=== PATIENT | female | born 1970 | race Caucasian/White ===

== ENCOUNTER → 2019-12-14 13:35 | Outpatient (BNVA) | payer MEDICAID, SELFPAY | PROVIDERS: PCP Internal Medicine; Referring Provider Internal Medicine; Visit Provider Nurse Practitioner | DX: K21.9 Gastro-esophageal reflux disease without esophagitis (principal); K58.2 Mixed irritable bowel syndrome; K75.81 Nonalcoholic steatohepatitis (NASH) | CPT/HCPCS: 99213 ==

== ENCOUNTER 2019-12-27 10:01 | Outpatient (REF) | payer MEDICAID, SELFPAY ==
[2019-12-28 09:48] LABS: BV Int Neg Control Negative (Negative); BV Int Pos Control Positive (Positive)
== END 2019-12-27 10:02 | disposition home or self-care (01) ==
LOC: HO.LAB 10:01
PROVIDERS: PCP Internal Medicine; Visit Provider Advanced Practice Midwife
DX: N90.89 Other specified noninflammatory disorders of vulva and perineum (principal); R10.2 Pelvic and perineal pain
CPT/HCPCS: 87480; 87510; 87660; 99214

== ENCOUNTER 2020-01-13 12:25 | Outpatient (REF) | payer MEDICAID, SELFPAY ==
[2020-01-13 14:40] LABS: MANUAL DIFF FLAG NO
[2020-01-13 14:45] LABS: Basophils Percent Auto 0.5 % (0-2); Eosinophils Absolute Auto 0.1 X10*3/uL (0.0-0.4); Hemoglobin 13.4 g/dl (12.0-16.0); Lymphocytes Absolute Auto 1.5 X10*3/uL (1.2-4.9); Lymphocytes Percent Auto 37.1 % (20-40); Mean Corpuscular HGB Conc 33.5 g/dl (31.0-35.0); Mean Corpuscular Hemoglobin 30.5 pg (27.0-33.0); Mean Corpuscular Volume 90.9 fL (80-98); Mean Platelet Volume 10.4 fL (9.4-12.3); Monocytes Absolute Auto 0.3 X10*3/uL (0.1-1.2); Monocytes Percent Auto 7.9 % (2-11); Neutrophils Absolute Auto 2.1 X10*3/uL (2.0-8.3); Neutrophils Percent Auto 52.5 % (45-73); Platelet Count 261 X10*3/uL (160-400); Red Cell Distribution Width 12.4 % (11.0-16.0); White Blood Count 3.9 X10*3/uL (4.8-10.8)
[2020-01-13 14:54] LABS: Glucose Urine UA NEG (NEG); Leukocyte Esterase Urine NEG (NEG); Nitrite Urine NEG (NEG); PH 5.5 (5.0-8.0); Specific Gravity - Urine >= 1.030 (1.005-1.025); Urine Blood NEG (NEG); Urine Ketones NEG (NEG); Urine Protein NEG (NEG-TRACE)
[2020-01-13 14:55] LABS: Appearance Urine HAZY; Color Urine YELLOW
[2020-01-13 15:21] LABS: Alanine Aminotransferase 25 U/L (0-31); Albumin Level 4.3 g/dL (3.5-5.0); Alkaline Phosphatase 73 U/L (39-117); Anion Gap 14 (12-20); Aspartate Amino Transferase 26 U/L (5-31); Bilirubin Total 0.5 mg/dL (0.0-1.0); Blood Urea Nitrogen 17 mg/dL (9-16); C Reactive Protein 0.94 mg/dL (< or = 0.50); Calcium 8.8 mg/dL (8.4-10.2); Carbon Dioxide 24 mmol/L (22-29); Chloride 106 mmol/L (96-108); Estimated Glomerular Filt Rate > 60; Glucose Random 101 mg/dL (60-115); Potassium 4.2 mmol/l (3.3-5.1); Sodium 140 mmol/L (135-145); Total Protein 7.8 g/dL (6.5-8.0)
[2020-01-13 15:31] LABS: Bacteria Urine TRACE /LPF; RBC Urine 0 /HPF (0); Squamous Epithelial Cell Urine 2+ /LPF; WBC Urine 0-2 /HPF (0-4)
[2020-01-13 15:36] LABS: Rheumatoid Factor < 15.0 IU/mL (<15.0)
[2020-01-13 15:40] LABS: Erythrocyte Sedimentation Rate 18 MM/HR (0-20)
[2020-01-14 11:36] LABS: Thyroglobulin Antibodies 27 IU/mL (< or = 1); Thyroid Peroxidase Antibodies 58 IU/mL (<9)
[2020-01-16 19:09] LABS: Complement C3 142 mg/dL (83-193)
[2020-01-16 19:10] LABS: Cyclic Citrullinated Peptide <16 UNITS
[2020-01-16 19:11] LABS: Anti DNA DS Antibody 27 IU/mL; Antibody to SS-A Antigen <1.0 NEG AI (<1.0 NEG); Antibody to SS-B Antigen <1.0 NEG AI (<1.0 NEG); SM/Ribonucleoprotein Ab <1.0 NEG AI (<1.0 NEG); Smith Protein <1.0 NEG AI (<1.0 NEG)
== END 2020-01-13 12:26 | disposition home or self-care (01) ==
LOC: HO.LAB 12:25
PROVIDERS: PCP Internal Medicine; Referring Provider Internal Medicine; Visit Provider Student in an Organized Health Care Education/Training Program
DX: R10.2 Pelvic and perineal pain (principal); R76.8 Other specified abnormal immunological findings in serum
CPT/HCPCS: 36415; 80053; 81001; 85025; 85652; 86140; 86160; 86200; 86225; 86235; 86376; 86431; 86800; 87086; 87147; 99202

== ENCOUNTER 2020-01-17 10:47 | Outpatient (REF) | payer MEDICAID, SELFPAY ==
--- NOTE | 2020-01-17 10:51 | US_ITS ---
EXAMINATION: ULTRASOUND OF THE PELVIS CLINICAL INFORMATION: Pelvic and perineal pain. COMPARISON: None. TECHNIQUE: Transabdominal and transvaginal pelvic ultrasound. Doppler evaluation with spectral analysis was performed. A transvaginal study was performed in addition to the transabdominal study which did not yield an adequate examination of the ovaries due to superimposed distended gas-filled loops of bowel. FINDINGS: Status post hysterectomy and right oophorectomy. The left ovary is identified measuring 2.4 x 1.7 x 2.7 cm. Multiple follicles are noted with no focal suspicious mass. No adnexal mass or free fluid collection seen. US/US transvaginal IMPRESSION: Status post hysterectomy and right oophorectomy. No pelvic mass. Normal appearance of the left ovary..
--- NOTE | 2020-01-17 10:51 | US_ITS ---
EXAMINATION: ULTRASOUND OF THE PELVIS CLINICAL INFORMATION: Pelvic and perineal pain. COMPARISON: None. TECHNIQUE: Transabdominal and transvaginal pelvic ultrasound. Doppler evaluation with spectral analysis was performed. A transvaginal study was performed in addition to the transabdominal study which did not yield an adequate examination of the ovaries due to superimposed distended gas-filled loops of bowel. FINDINGS: Status post hysterectomy and right oophorectomy. The left ovary is identified measuring 2.4 x 1.7 x 2.7 cm. Multiple follicles are noted with no focal suspicious mass. No adnexal mass or free fluid collection seen. US/US pelvic complete IMPRESSION: Status post hysterectomy and right oophorectomy. No pelvic mass. Normal appearance of the left ovary..
== END 2020-01-17 10:48 | disposition home or self-care (01) ==
LOC: HO.US 10:47
PROVIDERS: Visit Provider Advanced Practice Midwife
DX: R10.2 Pelvic and perineal pain (principal)
CPT/HCPCS: 76830; 76856

== ENCOUNTER → 2020-01-31 10:42 | Outpatient (BNVA) | payer MEDICAID, SELFPAY | PROVIDERS: PCP Internal Medicine; Visit Provider Advanced Practice Midwife | DX: Z76.89 Persons encountering health services in other specified circumstances (principal) ==

== ENCOUNTER → 2020-02-15 08:54 | Outpatient (BNVA) | payer MEDICAID, SELFPAY | PROVIDERS: PCP Internal Medicine; Visit Provider Student in an Organized Health Care Education/Training Program | DX: Z76.89 Persons encountering health services in other specified circumstances (principal) ==

== ENCOUNTER → 2020-07-12 13:44 | Outpatient (BNVA) | payer MEDICAID, SELFPAY | PROVIDERS: PCP Internal Medicine; Visit Provider Nurse Practitioner ==

== ENCOUNTER 2020-07-26 06:52 | Outpatient (REF) | payer MEDICAID, SELFPAY ==
--- NOTE | ~2020-07-26 | US_ITS ---
EXAMINATION: US ABDOMEN LIMITED CLINICAL INFORMATION: K58.2 - Mixed irritable bowel syndrome; WISE . COMPARISON: Abdominal ultrasound 10/03/2019, 12/21/2018. TECHNIQUE: Real-time imaging of the right upper quadrant abdominal viscera. FINDINGS: PANCREAS: The pancreas is normal in size and echogenicity. There is no pancreatic ductal distention or retroperitoneal effusion. AORTA/CAVA: The abdominal aorta is normal in caliber. The visualized IVC is unremarkable. LIVER: The liver is normal in size and smooth in contour. The right lobe measures approximately 16 cm in length and 12 cm AP. There is increased hepatic parenchymal echogenicity consistent with hepatic steatosis. There is some minor heterogeneous sparing as previously noted posterior right lobe. No focal hepatic parenchymal lesion or intrahepatic ductal dilatation. GALLBLADDER: The gallbladder has an incidental fundal phrygian cap as previously noted. There is no gallbladder dilatation, stone, sludge, or wall thickening. Negative sonographic Syed's sign. COMMON BILE DUCT: Normal in caliber measuring 0.5 cm in diameter. RIGHT KIDNEY: Normal. No hydronephrosis. No renal calculi or focal parenchymal lesions. The kidney measures 10.1 cm in maximum dimension. There is a mid renal sinus parenchymal bar suggesting duplicated collecting system. LEFT KIDNEY: Normal. No hydronephrosis. No renal calculi or focal parenchymal lesions. The kidney measures 10.5 cm in maximum dimension. SPLEEN: The spleen is normal in size measuring 8.4 cm in length. FREE FLUID: None. US/US abdomen limited IMPRESSION: 1. Hepatic steatosis. Liver normal in size and smooth in contour. No focal hepatic parenchymal lesion. 2. No cholelithiasis or biliary ductal dilatation. Pancreas unremarkable.
[2020-07-26 08:57] LABS: Alanine Aminotransferase 18 U/L (0-31); Albumin Level 3.9 g/dL (3.5-5.0); Alkaline Phosphatase 70 U/L (39-117); Aspartate Amino Transferase 18 U/L (5-31); Bilirubin Direct 0.2 mg/dL (0.0-0.5); Bilirubin Total 0.3 mg/dL (0.0-1.0); Total Protein 6.8 g/dL (6.5-8.0)
[2020-07-27 11:36] LABS: Alpha Fetoprotein 1.2 ng/mL
== END 2020-07-26 06:53 | disposition home or self-care (01) ==
LOC: HO.US 06:52
PROVIDERS: PCP Internal Medicine; Visit Provider Nurse Practitioner
DX: K75.81 Nonalcoholic steatohepatitis (NASH) (principal); K58.9 Irritable bowel syndrome, unspecified
CPT/HCPCS: 36415; 76705; 80076; 82105

== ENCOUNTER → 2020-08-06 08:07 | Outpatient (BNVA) | payer MEDICAID, SELFPAY | PROVIDERS: PCP Internal Medicine; Referring Provider Internal Medicine; Visit Provider Surgery | DX: L91.0 Hypertrophic scar (principal) | CPT/HCPCS: 99212 ==

== ENCOUNTER → 2020-11-22 08:46 | Outpatient (BNVA) | payer MEDICAID, SELFPAY | PROVIDERS: PCP Internal Medicine; Visit Provider Nurse Practitioner ==

== ENCOUNTER 2020-12-17 13:07 | Day surgery (SDC) | payer MEDICAID, SELFPAY ==
--- NOTE | 2020-12-14 14:31 | HO.ANESPROP2 ---
Documented by User: Karishma Diggs NP 12/14/20 14:31 HPI - Anesthesia Eval Consult details Narrative: 50yo F for Upper Endoscopy Multiple med allergies PMFSH Active Problems Active Problems: All Active Problems (Updated 11/22/20 @ 13:37 by JOCELYN Leung) Dysphagia (Acute) Chronic idiopathic constipation (Acute) Keloid of skin (Acute) Fibromyalgia (Acute) Encounter to discuss test results (Acute) FELI positive (Acute) Vulvar irritation (Acute) Pelvic pain in female (Acute) Cerebral palsy (Acute) Pablo's thyroiditis (Acute) Asthma (Acute) Colon cancer screening (Acute) Elevated antinuclear antibody (FELI) level (Acute) WISE (nonalcoholic steatohepatitis) (Acute) Abdominal bloating (Acute) GERD (gastroesophageal reflux disease) (Acute) Past Medical History Medical History (Updated 11/22/20 @ 13:37 by JOCELYN Leung) FELI positive Fibromyalgia H/O keloid of skin History of meningitis Irritable bowel syndrome with both constipation and diarrhea Keloid of skin Family History Family History Mother Aneurysm Endometrial cancer Father No problems noted. Surgical History Surgical History H/O bilateral breast reduction surgery H/O neck surgery History of bladder suspension procedure Hx of breast lump removal (~2019) Hx of section Hx of hysterectomy Social History Social History Alcohol intake: never Patient Tobacco Use Status: Never used Tobacco Use of substances other than those prescribed or required for medical reasons: No Are you DNR?: No Advance Directives: No Advance Directives Information Provided: Yes Sexual orientation: Straight/Heterosexual Gender identity: Female Meds Allergies Allergy/AdvReac Type Severity Reaction Status Date / Time aspirin [ASA] Allergy Intermediate ITCHING/SWE Verified 11/22/20 08:48 LLING Penicillins [PENICILLINS] Allergy Intermediate ITCHING Verified 11/22/20 08:48 acetaminophen [Percocet] Allergy Unknown Unknown Verified 11/22/20 08:48 duloxetine [From CYMBALTA] Allergy Unknown UNKNOWN Verified 11/22/20 08:48 pregabalin [From LYRICA] Allergy Unknown UNKNOWN Verified 11/22/20 08:48 oxycodone [From Percocet] Allergy itching Verified 11/22/20 09:52 meperidine [From DEMEROL] AdvReac Intermediate N/V Verified 11/22/20 08:48 Home Medications Medication Instructions Recorded Confirmed Last Taken Type docusate sodium 100 mg capsule 100 mg PO DAILY 12/13/19 02/15/20 Unknown History (Colace) [id number] 1 cap PO TID 12/13/19 02/15/20 Unknown History 24,000-76,000-120,000 unit capsule,delayed rel (Creon) albuterol sulfate 90 mcg/actuation 2 puff INHALATION Q6H PRN 12/27/19 02/15/20 Unknown History aerosol inhaler diphenhydramine 12.5 tab PO 12/27/19 02/15/20 Unknown History mg-acetaminophen 325 mg tablet (Percogesic) duloxetine 30 mg capsule,delayed 30 mg PO DAILY 12/27/19 02/15/20 Unknown History release (Cymbalta) fluticasone propionate 220 1 puff INHALATION BID 12/27/19 02/15/20 Unknown History mcg/actuation HFA aerosol inhaler (Flovent HFA) fluticasone propionate 50 1 inh INHALATION BID 12/27/19 02/15/20 Unknown History mcg/actuation blister powder for inhalation levothyroxine 88 mcg capsule 88 mcg PO DAILY 12/27/19 02/15/20 Unknown History (Tirosint) loratadine 10 mg tablet 10 mg PO DAILY 12/27/19 02/15/20 Unknown History montelukast 10 mg tablet 10 mg PO BEDTIME 12/27/19 02/15/20 Unknown History (Singulair) sertraline 25 mg tablet 25 mg PO DAILY 12/27/19 02/15/20 Unknown History sumatriptan succinate 50 mg tablet See Rx Instructions PO .COMPLEX 12/27/19 02/15/20 Unknown History (Imitrex) zolpidem 10 mg tablet 10 mg PO BEDTIME PRN 12/27/19 02/15/20 Unknown History Exam Exam Date and Time: December 14, 2020 1431 Assessment and Plan Assessment Anesthesia Assessment: Chart Reviewed Documented by User: Key Gonzalez MD 12/17/20 14:12 [facility] Past Medical History Medical History (Updated 11/22/20 @ 13:37 by JOCELYN Leung) FELI positive Fibromyalgia H/O keloid of skin History of meningitis Irritable bowel syndrome with both constipation and diarrhea Keloid of skin Family History Family History Mother Aneurysm Endometrial cancer Father No problems noted. Family history of problems with anesthesia: No Surgical History Surgical History H/O bilateral breast reduction surgery H/O neck surgery History of bladder suspension procedure Hx of breast lump removal (~2019) Hx of section Hx of hysterectomy History of Problems with Anesthesia: No Social History Social History Alcohol intake: never Patient Tobacco Use Status: Never used Tobacco Use of substances other than those prescribed or required for medical reasons: No Are you DNR?: No Advance Directives: No Advance Directives Information Provided: Yes Sexual orientation: Straight/Heterosexual Gender identity: Female Meds Allergies Allergy/AdvReac Type Severity Reaction Status Date / Time aspirin [ASA] Allergy Intermediate ITCHING/SWE Verified 11/22/20 08:48 LLING Penicillins [PENICILLINS] Allergy Intermediate ITCHING Verified 11/22/20 08:48 acetaminophen [Percocet] Allergy Unknown Unknown Verified 11/22/20 08:48 duloxetine [From CYMBALTA] Allergy Unknown UNKNOWN Verified 11/22/20 08:48 pregabalin [From LYRICA] Allergy Unknown UNKNOWN Verified 11/22/20 08:48 oxycodone [From Percocet] Allergy itching Verified 11/22/20 09:52 meperidine [From DEMEROL] AdvReac Intermediate N/V Verified 11/22/20 08:48 Home Medications Medication Instructions Recorded Confirmed Last Taken Type docusate sodium 100 mg capsule 100 mg PO DAILY 12/13/19 02/15/20 Unknown History (Colace) [id number]-[id number]-[id number] 1 cap PO TID 12/13/19 02/15/20 Unknown History 24,000-76,000-120,000 unit capsule,delayed rel (Creon) albuterol sulfate 90 mcg/actuation 2 puff INHALATION Q6H PRN 12/27/19 02/15/20 Unknown History aerosol inhaler diphenhydramine 12.5 tab PO 12/27/19 02/15/20 Unknown History mg-acetaminophen 325 mg tablet (Percogesic) duloxetine 30 mg capsule,delayed 30 mg PO DAILY 12/27/19 02/15/20 Unknown History release (Cymbalta) fluticasone propionate 220 1 puff INHALATION BID 12/27/19 02/15/20 Unknown History mcg/actuation HFA aerosol inhaler (Flovent HFA) fluticasone propionate 50 1 inh INHALATION BID 12/27/19 02/15/20 Unknown History mcg/actuation blister powder for inhalation levothyroxine 88 mcg capsule 88 mcg PO DAILY 12/27/19 02/15/20 Unknown History (Tirosint) loratadine 10 mg tablet 10 mg PO DAILY 12/27/19 02/15/20 Unknown History montelukast 10 mg tablet 10 mg PO BEDTIME 12/27/19 02/15/20 Unknown History (Singulair) sertraline 25 mg tablet 25 mg PO DAILY 12/27/19 02/15/20 Unknown History sumatriptan succinate 50 mg tablet See Rx Instructions PO .COMPLEX 12/27/19 02/15/20 Unknown History (Imitrex) zolpidem 10 mg tablet 10 mg PO BEDTIME PRN 12/27/19 02/15/20 Unknown History Exam Airway Mallampati Class: II TM Dist: >3cm Neck ROM: Full Heart: rrr Lungs: cta Assessment and Plan Assessment Anesthesia Assessment: Anesthesia Plan Discussed and Chart Reviewed Final Anesthetic Review Family History of Problems with Anesthesia: No History of Problems with Anesthesia: No NPO: Yes ASA Class: III Final Preanesthetic Review: No Changes in Pt Med Stat, Meds/Allgs Chart Reviewed and Consent Obtained/Reviewed Patient Risk: Intermediate Procedure Risk: Intermediate Anesthetic Plan Anesthetic Plan: MAC: Disposition: Standard PACU
[2020-12-17] MEDS: Lactated Ringers 1,000 ML 100 ML IVCONT (13:45)
[2020-12-17 13:49] VITALS: BP 141/81; PULSE 88; RESP 18; TEMP 36.2; O2SAT 98; BMI 32.9
--- NOTE | 2020-12-17 13:51 | P.HPSUR_ITS ---
Pre-Procedural Eval Section A Date of Service: 12/17/20 Section B Chief Complaint: dysphagia Relevant Family History (Specify if Yes): No Relevant Social History: None Present Medications: see Short Stay Collaborative assessment Medical History: Significant History (FELI positive Fibromyalgia H/O keloid of skin History of meningitis Irritable bowel syndrome with both constipation and diarrhea Keloid of skin) History of Previous Operations: Relevant previous surgery/procedure and date(s) (H/O bilateral breast reduction surgery H/O neck surgery History of bladder suspension procedure Hx of breast lump removal (~2019) Hx of section Hx of hysterectomy) Allergies: Allergies Allergy/AdvReac Type Severity Reaction Status Date / Time aspirin [ASA] Allergy Intermediate ITCHING/SWE Verified 11/22/20 08:48 LLING Penicillins [PENICILLINS] Allergy Intermediate ITCHING Verified 11/22/20 08:48 acetaminophen [Percocet] Allergy Unknown Unknown Verified 11/22/20 08:48 duloxetine [From CYMBALTA] Allergy Unknown UNKNOWN Verified 11/22/20 08:48 pregabalin [From LYRICA] Allergy Unknown UNKNOWN Verified 11/22/20 08:48 oxycodone [From Percocet] Allergy itching Verified 11/22/20 09:52 meperidine [From DEMEROL] AdvReac Intermediate N/V Verified 11/22/20 08:48 Review of Systems Sugical H&P ROS: Negative: Constitution, Cardiovascular, Respiratory, Neurological, Psychiatric, Hem-Onc, Allergic/Immunologic, Gastrointestinal, Genitourinary, Musculoskeletal, Integumentary, Endocrine and Eyes/Ears/Nose/Throat Exam Surgical H&P Exam: Normal: HEENT, Normal: Heart, Normal: Lungs, Normal: Extremit ies, Normal: Abdomen, Normal: Skin and Normal: Neurological Plan Diagnosis/Plan: Unchanged I have reviewed the history and physical and performed a pertinent physical examination on my patient. No changes have occurred unless specified.
--- NOTE | 2020-12-17 15:09 | PM.OP ---
Brief Operative Note Date of Service: 12/17/20 Pre-op diagnosis: dysphagia Post-op diagnosis: same Procedure: see op note Surgeon: Ellie Gan MD Anesthesia: MAC Was an Base Draw Operator used for this Procedure?: No Estimated blood loss (mL): 0 Condition: stable Disposition: PACU
--- NOTE | 2020-12-17 15:09 | W.PM.OPN ---
Operative Note Operative Note Date of Service: 12/17/20 Narrative: Procedure Description: EGD FLEXIBLE TRANSORAL UPPER GASTROINTESTINAL ENDOSCOPY UPPER ENDOSCOPY Consent: Indications for the procedure and potential complications of bleeding, perforation, reaction to medications and missed diagnosis were discussed with the patient and informed consent was obtained. Instrument: Olympus GIF H 190 J mid size upper endoscope Monitoring: Vital signs and clinical assessment, continuous EKG monitoring, Pulse oximetry, Carbon Dioxide monitoring and blood pressure monitoring were done throughout the procedure. Procedure: The patient was placed in the left lateral decubitis position and pre-procedure medications were administered and a bite block was placed. The endoscope was inserted into the mouth and advanced under direct vision to the third part of duodenum. A careful inspection was made as the upper endoscope was withdrawn including a retroflexed examination of the proximal stomach; Findings and interventions are described below. Findings: Larynx:normal Esophagus: GE junction at 36 cm, diaphragm hiatus at 36 cm, mild esophagitis, bx taken from GEJ and random esophagus. Esophagus dilated at LES and UES to 19 mm. Stomach: Patchy gastric erythema with superficial ulcers and erosions at antrum. Biopsies were obtained. Grade 2 flap valve on retroflexed examination of the cardia. Duodenum: Normal bulb and descending duodenum, bx taken Intervention: Biopsies as noted above, balloon dilation Impression/Findings: gastric ulcers and erosions esophagitis PLAN: check compliance with PPI if h pylori pos then treat if taking PPI then consider changing to another PPI or icnreasing dose
[2020-12-17 15:14] VITALS: BP 96/56; PULSE 89; RESP 16; TEMP 36.1; O2SAT 96
[2020-12-17 15:30] VITALS: BP 104/65; PULSE 78; RESP 16; TEMP 36.1; O2SAT 98
[2020-12-17 15:45] VITALS: PULSE 79; RESP 16; TEMP 36.2; O2SAT 98
== END 2020-12-17 15:49 | disposition home or self-care (01) ==
PROVIDERS: PCP Internal Medicine; Visit Provider Internal Medicine Gastroenterology
PROC: 0DJ08ZZ Inspection of Upper Intestinal Tract, Via Natural or Artificial Opening Endoscopic (ICD-10-PCS; CPT 43235; principal; 2020-12-17 14:50)
DX: K22.2 Esophageal obstruction (principal); K20.80 Other esophagitis without bleeding; K25.9 Gastric ulcer, unspecified as acute or chronic, without hemorrhage or perforation; K21.9 Gastro-esophageal reflux disease without esophagitis; K44.9 Diaphragmatic hernia without obstruction or gangrene; K75.81 Nonalcoholic steatohepatitis (NASH); K59.04 Chronic idiopathic constipation; Z79.899 Other long term (current) drug therapy; Z88.0 Allergy status to penicillin; Z88.8 Allergy status to other drugs, medicaments and biological substances
CPT/HCPCS: 43249; 43239; 88305; 88342; C1726

== ENCOUNTER → 2021-04-12 09:16 | Outpatient (BNVA) | payer MEDICAID, SELFPAY | PROVIDERS: PCP Internal Medicine; Visit Provider Nurse Practitioner Family | DX: G43.009 Migraine without aura, not intractable, without status migrainosus (principal); G80.9 Cerebral palsy, unspecified; R42 Dizziness and giddiness | CPT/HCPCS: 99202 ==

== ENCOUNTER 2021-05-14 09:17 | Outpatient (REF) | payer MEDICAID, SELFPAY ==
--- NOTE | ~2021-05-14 | MM_ITS ---
EXAMINATION: MM SCREENING DIGITAL BREAST TOMOSYNTHESIS, BILATERAL CLINICAL INFORMATION: Screening. Asymptomatic. Prior history reduction mammoplasty. The lifetime risk of breast cancer based on the Tyrer-Cuzick Model is 4%. COMPARISON: Mammography: 07/06/2019, 01/21/2017, 05/11/2014 TECHNIQUE: Digital breast tomosynthesis is performed in both the craniocaudal and mediolateral oblique views along with computer-aided detection (CAD). Synthesized 2D images are generated from the tomosynthesis. FINDINGS: The breasts are almost entirely fatty (ACR BI-RADS breast composition Category a). There are no significant masses, abnormal calcifications, or other abnormalities. There is no developing density or architectural abnormality. The axilla and skin contours are unremarkable. No significant changes. MM/MM tomosynthesis screening BI IMPRESSION: No mammographic evidence of malignancy. ASSESSMENT: BI-RADS 1: Negative RECOMMENDATION: Routine annual mammography screening. This patient's information was entered into a reminder system with a target due date for their next mammogram.
== END 2021-05-14 09:18 | disposition home or self-care (01) ==
LOC: HO.MAMMO 09:17
PROVIDERS: PCP Internal Medicine; Visit Provider Internal Medicine
DX: Z12.31 Encounter for screening mammogram for malignant neoplasm of breast (principal)
CPT/HCPCS: 77063; 77067

== ENCOUNTER → 2021-06-21 09:15 | Outpatient (BNVA) | payer MEDICAID, SELFPAY | PROVIDERS: PCP Internal Medicine; Visit Provider Nurse Practitioner Family | DX: G43.009 Migraine without aura, not intractable, without status migrainosus (principal); R42 Dizziness and giddiness; G51.32 Clonic hemifacial spasm, left | CPT/HCPCS: 99212 ==

== ENCOUNTER 2021-07-25 10:34 | Outpatient (REF) | payer MEDICAID, SELFPAY ==
--- NOTE | ~2021-07-25 | MR_ITS ---
EXAMINATION: MRI BRAIN WITHOUT CONTRAST. CLINICAL INFORMATION: 51-year-old with clonic hemifacial spasm, left side. COMPARISON: None TECHNIQUE: Multiplanar multisequence MR imaging of the brain was done without IV contrast. (Note that patient refused contrast for this examination; the study is also limited as thin-section high-resolution T2-weighted imaging through the IACs was not performed at this time.) FINDINGS: BRAIN VOLUME: Within normal limits. STRUCTURAL: No malformations. BRAIN AND MENINGES: DWI sequence demonstrates no restricted diffusion. Specifically, there is no evidence for acute or subacute cerebral ischemia. There are nonspecific patchy zones of FLAIR/T2 signal hyperintensity within the deep periventricular white matter at the level of the ventricular trigones bilaterally and within the posterior ricketts radiata bilaterally, which are nonspecific findings of indeterminate etiology and clinical significance. The remainder of the brain is normal in morphology and signal intensity. Gradient refocused imaging demonstrates no evidence for hemorrhage, hemosiderin staining or abnormal mineral deposition. No extra-axial fluid collections, space-occupying process or mass effect is identified. VENTRICLES AND SUBARACHNOID SPACES: The ventricular system and subarachnoid spaces are within normal limits without hydrocephalus. ORBITAL STRUCTURES: The visualized orbital structures are grossly unremarkable within the limitations of the study. VASCULAR: Signal voids are noted in the visualized major intracranial vessels. OSSEOUS STRUCTURES, SINUSES/MASTOIDS, EXTRACRANIAL SOFT TISSUES: Minor mucosal thickening in the right ethmoid complex, with moderate mucosal thickening in the maxillary sinuses bilaterally with probable retention cysts in the maxillary sinuses and mild sinusoidal nasal septal deviation. Small nonenlarged bilateral periparotid lymph nodes. Osseous marrow signal intensity is grossly unremarkable. MR/MR head/brain wo con IMPRESSION: 1. Nonspecific patchy white matter T2 hyperintensities predominantly involving the parieto-occipital lobe white matter bilaterally with a relative degree of symmetry noted of indeterminate etiology and clinical significance. 2. No acute intracranial process. No significant space-occupying process or mass effect and no evidence for acute or subacute cerebral ischemia or hemorrhage. 3. Note that the usual thin-section T2-weighted imaging through the IACs to better evaluate the facial nerve was not performed at this time. We will attempt to have the patient return to perform this as additional views at no charge. 4. Sinonasal findings as discussed above.
== END 2021-07-25 10:35 | disposition home or self-care (01) ==
LOC: HO.MRI 10:34
PROVIDERS: Visit Provider Nurse Practitioner Family
DX: G51.32 Clonic hemifacial spasm, left (principal); R42 Dizziness and giddiness; G43.009 Migraine without aura, not intractable, without status migrainosus
CPT/HCPCS: 70551

== ENCOUNTER 2021-08-05 09:25 | Outpatient (REF) | payer MEDICAID, SELFPAY | END 2021-08-05 09:26 | disposition home or self-care (01) | LOC: HO.MRI 09:25 | PROVIDERS: Visit Provider Nurse Practitioner Family | DX: Z13.89 Encounter for screening for other disorder (principal) ==

== ENCOUNTER → 2021-09-25 09:06 | Outpatient (BNVA) | payer MEDICAID, SELFPAY | PROVIDERS: PCP Internal Medicine; Visit Provider Nurse Practitioner Family | DX: G51.32 Clonic hemifacial spasm, left (principal); G43.009 Migraine without aura, not intractable, without status migrainosus; R42 Dizziness and giddiness | CPT/HCPCS: 99212 ==

== ENCOUNTER → 2021-11-18 10:49 | Outpatient (BNVA) | payer MEDICAID, SELFPAY | PROVIDERS: PCP Internal Medicine; Visit Provider Nurse Practitioner Family | DX: G51.32 Clonic hemifacial spasm, left (principal); G43.009 Migraine without aura, not intractable, without status migrainosus; Z79.899 Other long term (current) drug therapy | CPT/HCPCS: 99212 ==

== ENCOUNTER → 2022-01-17 10:07 | Outpatient (BNVA) | payer MEDICAID, SELFPAY | PROVIDERS: PCP Internal Medicine; Visit Provider Psychiatry & Neurology Neurology | DX: G43.009 Migraine without aura, not intractable, without status migrainosus (principal); G51.32 Clonic hemifacial spasm, left | CPT/HCPCS: 99212 ==

== ENCOUNTER → 2022-04-14 14:45 | Outpatient (BNVA) | payer MEDICAID, SELFPAY | PROVIDERS: PCP Internal Medicine; Visit Provider Psychiatry & Neurology Neurology | DX: G51.32 Clonic hemifacial spasm, left (principal) | CPT/HCPCS: 64612; 99211; J0585 ==

== ENCOUNTER 2022-05-20 09:50 | Outpatient (REF) | payer MEDICAID, SELFPAY ==
--- NOTE | ~2022-05-20 | MM_ITS ---
EXAMINATION: MM SCREENING DIGITAL BREAST TOMOSYNTHESIS, BILATERAL CLINICAL INFORMATION: Screening. Asymptomatic. The lifetime risk of breast cancer based on the Tyrer-Cuzick Model is 6%. COMPARISON: Mammography: 05/14/2021, 07/06/2019; outside exam 01/21/2017 ([facility]) TECHNIQUE: Digital breast tomosynthesis is performed in both the craniocaudal and mediolateral oblique views along with computer-aided detection (CAD). Synthesized 2D images are generated from the tomosynthesis. FINDINGS: The breasts are almost entirely fatty (ACR BI-RADS breast composition Category a). There are no significant masses, abnormal calcifications, or other abnormalities. Background stromal and fibroglandular densities are similar to prior studies. Again, there is incidental intramammary node mid upper outer right breast. The bilateral axilla and skin contours are unremarkable. There is chronic borderline bilateral nipple retraction. No significant changes. MM/MM tomosynthesis screening BI IMPRESSION: No mammographic evidence of malignancy. ASSESSMENT: BI-RADS 2: Benign RECOMMENDATION: Routine annual mammography screening. This patient's information was entered into a reminder system with a target due date for their next mammogram.
== END 2022-05-20 09:51 | disposition home or self-care (01) ==
LOC: HO.MAMMO 09:50
PROVIDERS: PCP Internal Medicine; Visit Provider Internal Medicine
DX: Z12.31 Encounter for screening mammogram for malignant neoplasm of breast (principal)
CPT/HCPCS: 77063; 77067

== ENCOUNTER → 2022-05-26 09:20 | Outpatient (BNVA) | payer MEDICAID, SELFPAY | PROVIDERS: PCP Internal Medicine; Visit Provider Surgery | DX: L91.0 Hypertrophic scar (principal) | CPT/HCPCS: 99202 ==

== ENCOUNTER → 2022-06-06 09:43 | Outpatient (BNVA) | payer MEDICAID, SELFPAY | PROVIDERS: PCP Internal Medicine; Visit Provider Nurse Practitioner | DX: K22.4 Dyskinesia of esophagus (principal); K59.04 Chronic idiopathic constipation; K21.9 Gastro-esophageal reflux disease without esophagitis; K27.9 Peptic ulcer, site unspecified, unspecified as acute or chronic, without hemorrhage or perforation; R13.10 Dysphagia, unspecified | CPT/HCPCS: 99212 ==

== ENCOUNTER → 2022-07-17 15:08 | Outpatient (BNVA) | payer MEDICAID, SELFPAY | PROVIDERS: PCP Internal Medicine; Visit Provider Psychiatry & Neurology Neurology | DX: G51.32 Clonic hemifacial spasm, left (principal) | CPT/HCPCS: 64612; 99211; J0585 ==

== ENCOUNTER → 2022-08-05 13:33 | Outpatient (BNVA) | payer MEDICAID, SELFPAY | PROVIDERS: PCP Internal Medicine; Visit Provider Nurse Practitioner Family | DX: M79.7 Fibromyalgia (principal); M25.511 Pain in right shoulder; M25.512 Pain in left shoulder; M47.812 Spondylosis without myelopathy or radiculopathy, cervical region; M62.838 Other muscle spasm; Z79.899 Other long term (current) drug therapy | CPT/HCPCS: 99202 ==

== ENCOUNTER 2022-08-15 10:38 | Outpatient (REF) | payer MEDICAID, SELFPAY ==
--- NOTE | ~2022-08-15 | XR_ITS ---
EXAMINATION: XR SHOULDER, LEFT CLINICAL INFORMATION: Shoulder pain. COMPARISON: None available. TECHNIQUE: AP external rotation, Grashey, scapular Y, and axillary views of the left shoulder. FINDINGS: The bones and soft tissues are normal. No fracture. Glenohumeral and acromioclavicular alignment is anatomic with normal joint space. No abnormal soft tissue calcifications. Partially imaged lower cervical anterior fixation plate and screws, grossly unremarkable in the visualized portions. XR/XR shoulder LT min 2V IMPRESSION: Unremarkable plain film examination of the left shoulder.
--- NOTE | ~2022-08-15 | XR_ITS ---
EXAMINATION: XR CERVICAL SPINE CLINICAL INFORMATION: Right shoulder pain. COMPARISON: None available. TECHNIQUE: 3 views of the cervical spine were obtained. FINDINGS: The patient is status post anterior fixation plate, screw, and disc spacing device with fusion at C5-C6. There may be very mild disc degenerative change at C4-C5, C6-C7, and C7-T1. The prevertebral soft tissues appear unremarkable. No fracture or subluxation is appreciated. XR/XR cervical spine 3V IMPRESSION: No acute finding.
--- NOTE | ~2022-08-15 | XR_ITS ---
EXAMINATION: XR SHOULDER, RIGHT CLINICAL INFORMATION: Right shoulder pain. COMPARISON: None available. TECHNIQUE: AP external rotation, Grashey, scapular Y, and axillary views of the right shoulder. FINDINGS: There is no evidence of acute fracture or dislocation of the right shoulder. Glenohumeral joint appears unremarkable. No evidence of calcific tendinitis. Acromioclavicular joint shows minimal spurring. There is no widening of the coracoclavicular space. XR/XR shoulder RT min 2V IMPRESSION: No significant right shoulder abnormality identified.
== END 2022-08-15 10:39 | disposition home or self-care (01) ==
LOC: HO.XRAY 10:38
PROVIDERS: PCP Internal Medicine; Visit Provider Nurse Practitioner Family
DX: M25.511 Pain in right shoulder (principal); M25.512 Pain in left shoulder; M47.812 Spondylosis without myelopathy or radiculopathy, cervical region; M79.7 Fibromyalgia
CPT/HCPCS: 72040; 73030

== ENCOUNTER → 2022-08-22 11:04 | Outpatient (BNVA) | payer MEDICAID, SELFPAY | PROVIDERS: PCP Internal Medicine; Visit Provider Nurse Practitioner | DX: Z01.818 Encounter for other preprocedural examination (principal); K59.04 Chronic idiopathic constipation; K21.9 Gastro-esophageal reflux disease without esophagitis; K27.9 Peptic ulcer, site unspecified, unspecified as acute or chronic, without hemorrhage or perforation; R14.0 Abdominal distension (gaseous); Z12.11 Encounter for screening for malignant neoplasm of colon; K22.4 Dyskinesia of esophagus | CPT/HCPCS: 99212 ==

== ENCOUNTER 2022-09-19 09:31 | Outpatient (AMB) | payer MEDICAID, SELFPAY ==
--- NOTE | 2022-09-19 09:36 | MHC.OFFVIS ---
Intake Vital Signs 09/19/22 09:40 Height 5 ft 2 in Weight 200 lb BMI 36.6 BP 130/68 Blood Pressure Location Rt brachial Position Sitting Pulse 79 Intake Visit Reasons: 6 week fu Intake Note: Patient follow up for chronic constipation. Patient cc: Patient states that she had [place] powder juice and it caused her abdominal pain. She also reports occasional constipation and nausea. Pt states she is currently taking Prednisone for fibromyalgia. 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: Yes Accompanied by: Grand Child Allergies aspirin [ASA] Allergy (Intermediate, Verified 08/22/22 11:10) ITCHING/SWELLING Penicillins [PENICILLINS] Allergy (Intermediate, Verified 08/22/22 11:10) ITCHING acetaminophen [Percocet] Allergy (Unknown, Verified 08/22/22 11:10) Unknown duloxetine [From CYMBALTA] Allergy (Unknown, Verified 08/22/22 11:10) UNKNOWN pregabalin [From LYRICA] Allergy (Unknown, Verified 08/22/22 11:10) UNKNOWN oxycodone [From Percocet] Allergy (Verified 08/22/22 11:10) itching meperidine [From DEMEROL] Adverse Reaction (Intermediate, Verified 08/22/22 11:10) N/V HPI 6 week fu HPI Details Assessment & Plan (1) Chronic idiopathic constipation: ?Code(s): K59.04 - Chronic idiopathic constipation ?Plan: Citizen [place] Long story about her rheum problems.? I asked how she is and how she has been in she launch is into a very long story about her problems with Rheumatology and her rheumatologic visits with various providers both in this area and in the [place] area.? She initially says ?I want you to work preop for lupus,? but I have to educate her that this is not something that I have the expertise in for training to do for her. I try redirect her to her GI concerns, it appears that she still having difficulty with generalized abdominal pain and is really not certain if this is related to her rheumatologic issues or irritable bowel syndrome.? I try to ascertain if she still adherent to her medications but she simply says ?they come in a box and I do not know what I take. ?? (in the past she was on famotidine 20mg bid and she likes this medication, she is also taking carafate 1-2 tabs a day. She does not know if she is taking omeprazole. She is using vikki seeds and metamucil for her CIC). She is overdue for colonoscopy and she agrees to have 1 if she can have a pill form of the prep.? I will see if we can get Ml tab or something like this covered for her. She needs to bring all medications in next appt as she does not know what she is taking. Using vikki seeds for CIC with good control. There are no prior problems with anesthesia or sedation.? She denies any cardiac or respiratory problems.? There are no infectious disease problems. She is uncertain of her family history with regards to colon cancer or polyps. roV 4 weeks. (2) GERD (gastroesophageal reflux disease): ?Code(s): K21.9 - Gastro-esophageal reflux disease without esophagitis (3) Colon cancer screening: ?Comment: Pt declines colonosopy, so referred back to PCP for FIT testing. ?Code(s): Z12.11 - Encounter for screening for malignant neoplasm of colon (4) Pre-op examination: ?Code(s): Z01.818 - Encounter for other preprocedural examination (5) Abdominal bloating: ?Code(s): R14.0 - Abdominal distension (gaseous) (6) Peptic ulcer disease: ?Code(s): K27.9 - Peptic ulcer, site unspecified, unspecified as acute or chronic, without hemorrhage or perforation (7) Esophageal spasm: ?Code(s): K22.4 - Dyskinesia of esophagus ? ? ? Medications: New sod sulf-pot chlor juliet-mag sulf 1.479 -0.188- 0.225 gram (Sutab) ?per pkg direction s orally per packa ge directions; PO PER PKG DIR 24 tab s 0RF Z12.11 - Encounter for screening for malignant neoplas m of colon COLONOSCOPY not yet scheduled BIOPSY TODAY'S VISIT Citizen [place] #[place] She brought her medications, and she says she has bentyl at home the blue pill but was not taking it r/t not knowing what it was for. Since she is having general periabdominal pain, I think we should restart this. She is agreeable. She also c/o post prandial fecal urgency with some foods and this aggravated her hemorrhoids. I think this is why we had her on carafate, but we will start one medicine at a time and titrate. She is quite weary of her total pill burden. She is also on prednisone for her FMS and this could be affecting her bowels as well. She continues on pantoprazole and famotidine. ROV 3 weeks. COUNT INCLUDES THE [facility] Medical History FELI positive Fibromyalgia H/O keloid of skin History of meningitis Irritable bowel syndrome with both constipation and diarrhea Surgical History H/O bilateral breast reduction surgery H/O neck surgery History of bladder suspension procedure Hx of breast lump removal (~2019) Hx of section Hx of hysterectomy Keloid of skin Family History Mother Aneurysm Endometrial cancer Father No problems noted. Social History Alcohol intake: never Patient Tobacco Use Status: Never used Tobacco Sexual orientation: Straight/Heterosexual Gender identity: Female Review of Systems Const Denies fatigue, Denies fever(s), Denies night sweats, Denies poor appetite and Denies weight loss ENT Reports Normal hearing present, Denies dental pain, Reports dysphagia, Denies hearing loss, Denies mouth pain, Denies odynophagia, Denies throat swelling, Denies tongue swelling and Reports other (Dentition adequate) Card Reports no additional complaints Resp Reports no additional complaints GI Details: Painful hemorrhoids she Denies abdominal pain, Denies melena, Denies bloating, Denies hematochezia, Denies constipation, Reports GI cramping, Reports dysphagia, Denies excessive flatus, Denies early satiety, Reports heartburn, Denies diarrhea, Denies nausea, Denies odynophagia, Denies vomiting and Denies hematemesis Skin/Breast Denies pruritus, Denies lesions, Denies rash and Denies jaundice Neuro Reports Normal hearing present and Denies Abnormal speech present Endo Denies fatigue Aller/Immun Denies throat swelling and Denies tongue swelling Physical Exam Vital Signs: Last Vital Signs Pulse 79 09/19/22 09:40 BP 130/68 09/19/22 09:40 BMI result Body Mass Index 36.6 Const General: cooperative, no acute distress, well developed and well groomed Nutritional Appearance: well nourished and obese Orientation/consciousness: oriented to person, oriented to place and oriented to time Limitations: language barrier HEENT Head: Yes normocephalic and Yes atraumatic Eyes General: appearance normal, both eyes and all related structures Pupils: Equal, round and reactive pupils present Neck Neck: Yes normal visual inspection and Yes no lymphadenopathy Thyroid: Thyroid normal Resp Effort & Inspection: normal respiratory effort and able to speak in complete sentences Auscultation: clear to auscultation bilaterally Cardio Rate: regular rate Rhythm: regular rhythm Heart sounds: Normal, physiologic split S2 sound present Peripheral pulses: radial pulses present and posterior tibial pulses present GI Inspection: No distended, Yes Abdominal panniculus present and Yes obesity Palpation (GI): Soft to palpation, nontender, no guarding, not rigid and No hepatosplenomegaly present Percussion: Yes normal to percussion Auscultation: normal bowel sounds Rectal Exam - Female: deferred Skin General skin exam: no rashes or lesions noted, turgor normal, skin not dry, no jaundice, No spider nevi and no striae Rashes: no rashes Nails: normal Neuro General: oriented to person, oriented to place and oriented to time Cranial nerves: Yes Equal, round and reactive pupils present and Yes Normal hearing present Speech: No Abnormal speech present Extrem General: Yes normal to inspection, No clubbing, No cyanosis and No edema Psych Appearance: grossly normal and well kempt Mental Status: mental status grossly normal Speech and movement: Normal speech and movement present Affect: normal affect Attitude: cooperative Thought process: Normal thought process present and not confabulating Thought content: Normal thought content present Insight: Limited insight present (Psych) Judgement: Limited judgement present (Psych) Assessment & Plan Assessment & Plan (1) Chronic idiopathic constipation: Code(s): K59.04 - Chronic idiopathic constipation Plan: COLONOSCOPY not yet scheduled BIOPSY TODAY'S VISIT Citizen [place] #[place] Live She brought her medications, and she says she has bentyl at home the blue pill but was not taking it r/t not knowing what it was for. Since she is having general periabdominal pain, I think we should restart this. She is agreeable. She also c/o post prandial fecal urgency with some foods and this aggravated her hemorrhoids. I think this is why we had her on carafate, but we will start one medicine at a time and titrate. She is quite weary of her total pill burden. She is also on prednisone for her FMS and this could be affecting her bowels as well. She continues on pantoprazole and famotidine. She has toric we uses Vicks vapor rub on her hemorrhoids which I do not think is in optimal solution so I will send her hemorrhoid cream to try. BRETV 3 weeks. We are still fighting to get her pill prep as she will not drink any liquid type of prep. (2) Dysphagia: Comment: food and liquid stickng med sternal Code(s): R13.10 - Dysphagia, unspecified (3) GERD (gastroesophageal reflux disease): Code(s): K21.9 - Gastro-esophageal reflux disease without esophagitis (4) Abdominal bloating: Code(s): R14.0 - Abdominal distension (gaseous) Medications: New hydrocortisone 2.5% (Proctosol HC) BE SURE TO INCLUDE RECTAL APPICATOR!! 1 appl [place] BID 30 grams 6RF hemorrhoids K64.9 - Unspecified hemorrhoids Coding Level of Care Code Est Pt Level 3 (63158) Diagnoses Chronic idiopathic constipation K59.04 Dysphagia R13.10 GERD (gastroesophageal reflux disease) K21.9 Abdominal bloating R14.0
[2022-09-19 09:40] VITALS: BP 130/68; PULSE 79; BMI 36.6
== END 2022-09-19 10:20 | disposition home or self-care (01) ==
PROVIDERS: PCP Internal Medicine; Visit Provider Nurse Practitioner
DX: K59.04 Chronic idiopathic constipation (principal); R13.10 Dysphagia, unspecified; K21.9 Gastro-esophageal reflux disease without esophagitis; R14.0 Abdominal distension (gaseous)
CPT/HCPCS: 99213

== ENCOUNTER → 2022-09-19 09:31 | Outpatient (BNVA) | payer MEDICAID, SELFPAY | PROVIDERS: PCP Internal Medicine; Visit Provider Nurse Practitioner | DX: K59.04 Chronic idiopathic constipation (principal); R13.10 Dysphagia, unspecified; K21.9 Gastro-esophageal reflux disease without esophagitis; R14.0 Abdominal distension (gaseous) | CPT/HCPCS: 99213 ==

== ENCOUNTER 2022-09-22 14:19 | Outpatient (AMB) | payer MEDICAID, SELFPAY ==
--- NOTE | 2022-09-22 14:31 | A.OFFVIS_ITS ---
Intake Vital Signs 09/22/22 14:38 Height 5 ft 2 in Weight 195 lb BMI 35.7 BP 133/94 H Blood Pressure Location Lt brachial Position Sitting Pulse 80 Pulse Source Pulse Oximeter Pulse Oximetry (%) 98 Oxygen Delivery Method Room Air Intake Visit Reasons: Shoulder & Cervical Spine Xray Results Intake Note: Pain today 1010 Letterpress Setter Required: Yes Letterpress Setter Language: Student Services Representative Name: Guerline # [id number] Accompanied by: Self / Same As Patient Allergies aspirin [ASA] Allergy (Intermediate, Verified 09/22/22 14:37) ITCHING/SWELLING Penicillins [PENICILLINS] Allergy (Intermediate, Verified 09/22/22 14:37) ITCHING acetaminophen [Percocet] Allergy (Unknown, Verified 09/22/22 14:37) Unknown duloxetine [From CYMBALTA] Allergy (Unknown, Verified 09/22/22 14:37) UNKNOWN pregabalin [From LYRICA] Allergy (Unknown, Verified 09/22/22 14:37) UNKNOWN oxycodone [From Percocet] Allergy (Verified 09/22/22 14:37) itching meperidine [From DEMEROL] Adverse Reaction (Intermediate, Verified 09/22/22 14:37) N/V HPI HPI Comments History of Present Illness Details Patient presents today to review recent cervical spine and bilateral shoulders xray results. Denies any recent cough, cold, infection, fever or other significant changes in medical history since last office visit. PRIOR: Patient is a 52 years old [place]ian speaking female with history of migraines, fibromyalgia, hemifacial spasm of left side of face, cerebral palsy, asthma, arthritis presents today with widespread body pain, stiffness and symmetrically localized tenderness points of upper and lower extremities and torso consistent with fibromyalgia. She also has significant axial cervical pain that radiates to both shoulders but also limited range of motions in both shoulders with significant difficulty with overhead reaches due to pain. Shoulder pain is localized to anterior aspects and periscapular area. Patient reports pain is constant and is worse during the mornings and middle of night. She rates her pain 8-10/10 daily. Pain affects her daily activities, functioning, sleep, mood, social interactions and quality of life. Patient follows neurology provider for Botox injections for left hemifacial spasm and rheumatology provider for arthritis and positive FELI. Patient notes that aqua therapy, prednisone and opioid medications have been the most helpful for her symptoms and allowed her to be more functional and less symptomatic. I have informed patient that our office does not offer opioid prescribing at this time. She has previously tried and became allergic to duloxetine, pregabalin and oxycodone. She tolerates gabapentin. Denies any fever, weight loss, weakness, numbness, tingling, bladder or bowel incontinence or saddle anesthesia. Location Widespread body pain, fibromyalgia, bilateral shoulder Duration Chronic for several years, progressively worse Characteristics of symptom or complaint Stabbing, sharp, shooting, throbbing, aching Aggravating or associated factors All movements, walking, standing, sitting, weather changes, stress Relieving factors Gabapentin, prednisone, duloxetine, naproxen Treatment Aqua therapy, PT PFSH Medical History FELI positive Fibromyalgia H/O keloid of skin History of meningitis Irritable bowel syndrome with both constipation and diarrhea Surgical History H/O bilateral breast reduction surgery H/O neck surgery History of bladder suspension procedure Hx of breast lump removal (~2019) Hx of section Hx of hysterectomy Keloid of skin Family History Mother Aneurysm Endometrial cancer Father No problems noted. Social History Alcohol intake: never Patient Tobacco Use Status: Never used Tobacco Sexual orientation: Straight/Heterosexual Gender identity: Female Review of Systems Const All systems reviewed & are unremarkable except as noted in HPI and below Physical Exam Vital Signs: Last Vital Signs Pulse 80 09/22/22 14:38 BP 133/94 H 09/22/22 14:38 Pulse Ox 98 09/22/22 14:38 Oxygen Delivery Method Room Air 09/22/22 14:38 BMI result Body Mass Index 35.7 General: Appears afebrile. Alert and oriented. Mood and affect appropriate. Follows and participates in conversation appropriately. Respiratory effort is unlabored. No cough. Able to transition from sit to stand unassisted. Ambulates with bilaterally normal heel strike and toe off. Back/Spine/Pelvis Other: Reports widespread musculoskeletal pain on both sides of the body. Multiple widespread TTPs 16/16 bilaterally, including upper and lower extremities. Cervical Spine: cervical muscular tenderness, pain with cervical ROM and No Cervical spine tenderness Thoracic/Lumbar Spine: thoracic and lumbar spine normal to inspection, No Thoracic/lumbar spine scar(s), pain with thoraco-lumbar ROM, paraspinal muscle tenderness, No thoracic spinal tenderness and lumbar spinal tenderness Sacroiliac joints: bilaterally tender to palpation Extrem Other: Bilateral shoulder normal to inspection. No erythema or ecchymosis. Patient has difficulty with overhead reach or reaching her back pocket, worse on the right side. Moderate tenderness to palpation to the anterior aspect of the both shoulders, R>L. Empty can negative bilaterally. General: Yes capillary refill normal, Yes no clubbing, cyanosis or edema and Yes no calf tenderness Results Reviewed Results Reviewed: XR SHOULDER, LEFT 08/15/22 FINDINGS: The bones and soft tissues are normal. No fracture. Glenohumeral and acromioclavicular alignment is anatomic with normal joint space. No abnormal soft tissue calcifications. Partially imaged lower cervical anterior fixation plate and screws, grossly unremarkable in the visualized portions. IMPRESSION: Unremarkable plain film examination of the left shoulder. XR SHOULDER, RIGHT 08/15/22 FINDINGS: There is no evidence of acute fracture or dislocation of the right shoulder. Glenohumeral joint appears unremarkable. No evidence of calcific tendinitis. Acromioclavicular joint shows minimal spurring. There is no widening of the coracoclavicular space. IMPRESSION: No significant right shoulder abnormality identified. XR CERVICAL SPINE 08/15/22 FINDINGS: The patient is status post anterior fixation plate, screw, and disc spacing device with fusion at C5-C6. There may be very mild disc degenerative change at C4-C5, C6-C7, and C7-T1. The prevertebral soft tissues appear unremarkable. No fracture or subluxation is appreciated. IMPRESSION: No acute finding. Assessment & Plan Assessment & Plan (1) Fibromyalgia: Code(s): M79.7 - Fibromyalgia (2) Bilateral shoulder pain: Code(s): M25.511 - Pain in right shoulder; M25.512 - Pain in left shoulder (3) Cervical spondylosis: Code(s): M47.812 - Spondylosis without myelopathy or radiculopathy, cervical region (4) Muscle spasms of neck: Code(s): M62.838 - Other muscle spasm Plan 1. Cervical spine and bilateral shoulder xray reviewed with patient today in greater detail and are noted above. She continuous to endorse widespread pain head to toe, stiffness, mostly in her neck and bilateral shoulder with limited range of motion, worse on the right side. 2. Increase amitriptyline to 25 mg at bedtime. Continue to monitor for any side effects. 3. Schedule Right acromioclavicular joint steroid injection with local and fluoroscopy for right shoulder pain. All questions and concerns have been answered and patient agreed with the plan. Follow up for xray results and sooner if needed. Anticoagulation: Patient not on anticoagulant Justification for interventional therapy: ? Patient with average pain > 6/10 ? Patient has exhausted conservative therapy, NSAIDs, physical and aqua therapy The risks, consequences, alternatives, and benefits of various treatment options were discussed with the patient in great detail, including conservative management, injections and procedures. I informed patient of the hyperglycemic effects of steroids. Coding Level of Care Code Est Pt Level 4 (96588) Diagnoses Fibromyalgia M79.7 Bilateral shoulder pain M25.511; M25.512 Cervical spondylosis M47.812 Muscle spasms of neck M62.838
[2022-09-22 14:38] VITALS: BP 133/94; PULSE 80; O2SAT 98; BMI 35.7
== END 2022-09-22 14:57 | disposition home or self-care (01) ==
PROVIDERS: PCP Internal Medicine; Visit Provider Nurse Practitioner Family
DX: M79.7 Fibromyalgia (principal); M25.511 Pain in right shoulder; M25.512 Pain in left shoulder; M47.812 Spondylosis without myelopathy or radiculopathy, cervical region; M62.838 Other muscle spasm
CPT/HCPCS: 99214

== ENCOUNTER → 2022-09-22 14:19 | Outpatient (BNVA) | payer MEDICAID, SELFPAY | PROVIDERS: PCP Internal Medicine; Visit Provider Nurse Practitioner Family | DX: M79.7 Fibromyalgia (principal); M25.511 Pain in right shoulder; M25.512 Pain in left shoulder; M47.812 Spondylosis without myelopathy or radiculopathy, cervical region; M62.838 Other muscle spasm | CPT/HCPCS: 99214 ==

== ENCOUNTER 2022-10-06 11:28 | Outpatient (AMB) | payer MEDICAID, SELFPAY ==
[2022-10-06 11:36] VITALS: BP 138/94; PULSE 100; RESP 14; BMI 35.7
--- NOTE | 2022-10-06 11:36 | A.OFFVIS_ITS ---
Intake Vital Signs 10/06/22 11:36 Height 5 ft 2 in Weight 195 lb BMI 35.7 BP 138/94 H Blood Pressure Location Rt radial Position Sitting Respiration 14 Pulse 100 Pulse Source Pulse Oximeter Intake Visit Reasons: RIGHT ACROMIOCLAVICULAR JOINT STEROID INJECTION Allergies aspirin [ASA] Allergy (Intermediate, Verified 10/06/22 11:37) ITCHING/SWELLING Penicillins [PENICILLINS] Allergy (Intermediate, Verified 10/06/22 11:37) ITCHING acetaminophen [Percocet] Allergy (Unknown, Verified 10/06/22 11:37) Unknown duloxetine [From CYMBALTA] Allergy (Unknown, Verified 10/06/22 11:37) UNKNOWN pregabalin [From LYRICA] Allergy (Unknown, Verified 10/06/22 11:37) UNKNOWN oxycodone [From Percocet] Allergy (Verified 10/06/22 11:37) itching meperidine [From DEMEROL] Adverse Reaction (Intermediate, Verified 10/06/22 11:37) N/V HPI RIGHT ACROMIOCLAVICULAR JOINT STEROID INJECTION HPI Details 52-year-old female presenting today for bilateral shoulder injections for symptoms consistent with rotator cuff and biceps tendinopathy. The patient was referred by CHRIST Subramanian. Denies any recent cough, cold, infection, fever or other significant changes in medical history since last office visit. [facility] Medical History FELI positive Fibromyalgia H/O keloid of skin History of meningitis Irritable bowel syndrome with both constipation and diarrhea Surgical History H/O bilateral breast reduction surgery H/O neck surgery History of bladder suspension procedure Hx of breast lump removal (~2019) Hx of section Hx of hysterectomy Keloid of skin Family History Mother Aneurysm Endometrial cancer Father No problems noted. Social History Alcohol intake: never Patient Tobacco Use Status: Never used Tobacco Sexual orientation: Straight/Heterosexual Gender identity: Female Review of Systems Const All systems reviewed & are unremarkable except as noted in HPI and below Physical Exam Vital Signs: Last Vital Signs Pulse 100 10/06/22 11:36 Resp 14 10/06/22 11:36 BP 138/94 H 10/06/22 11:36 BMI result Body Mass Index 35.7 General: Appears afebrile. Alert and oriented. Mood and affect appropriate. Follows and participates in conversation appropriately. Respiratory effort is unlabored. Able to transition from sit to stand unassisted. Ambulates with bilaterally normal heel strike and toe off. Office Procedures Joint Injection/Drain Joint Injection/Drain Details: Bilateral acromioclavicular joint injection Primary Site: right shoulder Secondary Site: left shoulder Prep: site was prepped using sterile technique Injected: 20 mg of (at each site, bilaterally), Kenalog, with 1 mL of (ropivacaine 0.5%), in the subcromial space and other (Bicipital groove) Approach Used: anterior Procedure: The patient tolerated the procedure well Coding - Bicipital Groove Injection - Acromioclavicular with ultrasound guidance Procedure code (CPT) selection complete Results Reviewed Results Reviewed: No imaging is available for review. Assessment & Plan Assessment & Plan (1) Bilateral shoulder pain: Code(s): M25.511 - Pain in right shoulder; M25.512 - Pain in left shoulder Plan Patient is status post bilateral subacromial bursa and bicipital groove steroid injections under ultrasound guidance. Patient tolerated procedure well and was discharged home in stable condition with discharge instructions. All questions were answered. We will follow-up in two weeks via telephone or in clinic to assess response to therapy. A follow-up appointment was made during today's visit. Scribed for Dr. Díaz by Lance Carrillo, medical donation professional, on 10/06/2022. I, Dr. Díaz, have personally reviewed and agree with the information entered by the scribe. Coding Level of Care Code Procedure Only Diagnoses Bilateral shoulder pain M25.511; M25.512 CPT Codes Coding - Joint 1: - Bicipital Groove Injection ([id number]) Coding - Joint 6: - Acromioclavicular with ultrasound guidance ([id number])
== END 2022-10-06 12:11 | disposition home or self-care (01) ==
PROVIDERS: PCP Internal Medicine; Visit Provider Internal Medicine
DX: M25.511 Pain in right shoulder (principal); M25.512 Pain in left shoulder
CPT/HCPCS: 20606; 20611

== ENCOUNTER → 2022-10-06 11:28 | Outpatient (BNVA) | payer MEDICAID, SELFPAY | PROVIDERS: PCP Internal Medicine; Visit Provider Internal Medicine | DX: M25.511 Pain in right shoulder (principal); M25.512 Pain in left shoulder; M79.7 Fibromyalgia; R76.8 Other specified abnormal immunological findings in serum | CPT/HCPCS: 20550; 20606; 20611; J2795; J3301 ==

== ENCOUNTER 2022-11-20 09:46 | Outpatient (AMB) | payer MEDICAID, SELFPAY ==
--- NOTE | 2022-11-20 09:48 | A.OFFVIS_ITS ---
Intake Vital Signs 11/20/22 09:49 Height 5 ft 2 in Weight 190 lb 9.561 oz BMI 34.9 BP 121/84 Blood Pressure Location Lt brachial Position Sitting Pulse 84 Intake Visit Reasons: Follow up Intake Note: Scarlett presents in the office as a follow up. CC: She states that she is not having any concerns - just here for a regular check up. Registration Officer Required: Yes Registration Officer Name: [id number] Allergies acetaminophen [Percocet] Allergy (Unknown, Verified 12/12/22 15:35) Unknown duloxetine [From CYMBALTA] Allergy (Unknown, Verified 12/12/22 15:35) UNKNOWN pregabalin [From LYRICA] Allergy (Unknown, Verified 12/12/22 15:35) UNKNOWN meperidine [From DEMEROL] Adverse Reaction (Intermediate, Verified 12/12/22 15:35) N/V oxycodone [From Percocet] Adverse Reaction (Verified 12/12/22 15:35) itching HPI Follow up HPI Details .Assessment & Plan (1) Chronic idiopathic constipation: Code(s): K59.04 - Chronic idiopathic constipation Plan: She brought her medications, and she says she has bentyl at home the blue pill but was not taking it r/t not knowing what it was for. Since she is having general periabdominal pain, I think we should restart this. She is agreeable. She also c/o post prandial fecal urgency with some foods and this aggravated her hemorrhoids. I think this is why we had her on carafate, but we will start one medicine at a time and titrate. She is quite weary of her total pill burden. She is also on prednisone for her FMS and this could be affecting her bowels as well. She continues on pantoprazole and famotidine. She has toric we uses Vicks vapor rub on her hemorrhoids which I do not think is in optimal solution so I will send her hemorrhoid cream to try. ROV 3 weeks. We are still fighting to get her pill prep as she will not drink any liquid type of prep. (2) Dysphagia: Comment: food and liquid stickng med sternal Code(s): R13.10 - Dysphagia, unspecified (3) GERD (gastroesophageal reflux diseas e): Code(s): K21.9 - Gastro-esophageal reflux disease without esophagitis (4) Abdominal bloating: Code(s): R14.0 - Abdominal distension (gaseous) Medications: New hydrocortisone 2.5% (Proctosol HC) BE SURE TO INCLUDE RECTAL APPICATOR!! 1 appl RI BID 30 grams 6RF hemorrhoids K64.9 - Unspecified hemorrhoids * COLONOSCOPY BIOPSY TODAY'S VISIT [place] #Argelia Brasher She is doing well with her GI medications, rufino the bentyl...EXCEPT she is choking more again and having food stuck mid sternaly. She had an EGD in 2020 with dilation, but it is uncertain if this helped as she can't remember and because she interrupted our care seeing another service briefly for 2nd opinion on her abdominal pain. She will not have the colonoscopy unless she can of the pill prep because the liquid prep made her quite sick the last time. She also has a lot of confusion about prepping so once we have a schedule assuming we can get the suit tab covered then I will bring her back in to go over the prep with me to help clarify things. I am going to add an EGD to see if dilation helps her I am uncertain whether it is more esophageal spasm than stricture pathology at play here. I did encourage her to take her dicyclomine which she says she has fallen off of lately and I explained that this does not just help her abdominal cramping but also helps her esophagus to work better in this is 1 possible explanation for her return of her worsening dysphagia. For now I will see her in 6 months since I do not know when were going to get the colonoscopy/EGD scheduled as it is dependent on Sutab being approved. Again I want to bring her in to see me so I can go over the prep since she has a lot of confusion. Return office visit in 6 months [facility] Medical History Fibromyalgia FELI positive Irritable bowel syndrome with both constipation and diarrhea H/O keloid of skin History of meningitis Surgical History Keloid of skin H/O neck surgery Hx of section Hx of hysterectomy Hx of breast lump removal (~2019) History of bladder suspension procedure H/O bilateral breast reduction surgery Family History Mother Aneurysm Endometrial cancer Father No problems noted. Social History Alcohol intake: never Patient Tobacco Use Status: Never used Tobacco Sexual orientation: Straight/Heterosexual Gender identity: Female Review of Systems Const Denies fatigue, Denies fever(s), Denies night sweats, Denies poor appetite and Denies weight loss ENT Reports Normal hearing present, Denies dental pain, Reports dysphagia, Denies hearing loss, Denies mouth pain, Denies odynophagia, Denies throat swelling, Denies tongue swelling and Reports other (Dentition adequate) Card Reports no additional complaints Resp Reports no additional complaints GI Denies abdominal pain, Denies melena, Reports bloating, Denies hematochezia, Reports constipation, Reports GI cramping, Reports dysphagia, Denies excessive flatus, Denies early satiety, Reports heartburn, Denies diarrhea, Denies nausea, Denies odynophagia, Denies vomiting and Denies hematemesis Skin/Breast Denies pruritus, Denies lesions, Denies rash and Denies jaundice Neuro Reports Normal hearing present and Denies Abnormal speech present Endo Denies fatigue Aller/Immun Denies throat swelling and Denies tongue swelling Physical Exam Vital Signs: Last Vital Signs Pulse 84 11/20/22 09:49 BP 121/84 11/20/22 09:49 BMI result Body Mass Index 34.9 Const General: cooperative, no acute distress, well developed and well groomed Nutritional Appearance: well nourished and obese Orientation/consciousness: oriented to person, oriented to place and oriented to time Limitations: language barrier HEENT Head: Yes normocephalic and Yes atraumatic Eyes General: appearance normal, both eyes and all related structures Pupils: Equal, round and reactive pupils present Neck Neck: Yes normal visual inspection and Yes no lymphadenopathy Thyroid: Thyroid normal Resp Effort & Inspection: normal respiratory effort and able to speak in complete sentences Auscultation: clear to auscultation bilaterally Cardio Rate: regular rate Rhythm: regular rhythm Heart sounds: Normal, physiologic split S2 sound present Peripheral pulses: radial pulses present and posterior tibial pulses present GI Inspection: No distended, Yes Abdominal panniculus present and Yes obesity Palpation (GI): Soft to palpation, nontender, no guarding, not rigid and No hepatosplenomegaly present Percussion: Yes normal to percussion Auscultation: normal bowel sounds Rectal Exam - Female: deferred Skin General skin exam: no rashes or lesions noted, turgor normal, skin not dry, no jaundice, No spider nevi and no striae Rashes: no rashes Nails: normal Neuro General: oriented to person, oriented to place and oriented to time Cranial nerves: Yes Equal, round and reactive pupils present and Yes Normal hearing present Speech: No Abnormal speech present Extrem General: Yes normal to inspection, No clubbing, No cyanosis and No edema Psych Appearance: grossly normal and well kempt Mental Status: mental status grossly normal Speech and movement: Normal speech and movement present Affect: normal affect Attitude: cooperative Thought process: Normal thought process present and not confabulating Thought content: Normal thought content present Insight: Limited insight present (Psych) and Poor insight present (Psych) Judgement: Limited judgement present (Psych) and Poor judgement present (Psych) Assessment & Plan Assessment & Plan (1) Dysphagia: Comment: food and liquid stickng med sternal Code(s): R13.10 - Dysphagia, unspecified Plan: * COLONOSCOPY BIOPSY TODAY'S VISIT [place] #Argelia Live She is doing well with her GI medications, rufino the bentyl...EXCEPT she is choking more again and having food stuck mid sternaly. She had an EGD in 2020 with dilation, but it is uncertain if this helped as she can't remember and because she interrupted our care seeing another service briefly for 2nd opinion on her abdominal pain. She will not have the colonoscopy unless she can of the pill prep because the liquid prep made her quite sick the last time. She also has a lot of confusion about prepping so once we have a schedule assuming we can get the suit tab covered then I will bring her back in to go over the prep with me to help clarify things. I am going to add an EGD to see if dilation helps her I am uncertain whether it is more esophageal spasm than stricture pathology at play here. I did encourage her to take her dicyclomine which she says she has fallen off of lately and I explained that this does not just help her abdominal cramping but also helps her esophagus to work better in this is 1 possible explanation for her return of her worsening dysphagia. For now I will see her in 6 months since I do not know when were going to get the colonoscopy/EGD scheduled as it is dependent on Sutab being approved. Again I want to bring her in to see me so I can go over the prep since she has a lot of confusion. Return office visit in 6 months (2) Chronic idiopathic constipation: Code(s): K59.04 - Chronic idiopathic constipation (3) Pre-op examination: Code(s): Z01.818 - Encounter for other preprocedural examination (4) Peptic ulcer disease: Code(s): K27.9 - Peptic ulcer, site unspecified, unspecified as acute or chronic, without hemorrhage or perforation Orders: Orders EGD/Randalia Combo - GI Use Only 11/20/22 Z01.818 - Encounter for other preprocedural examination, K27.9 - Peptic ulcer, site unspecified, unspecified as acute or chronic, without hemorrhage or perforation, R13.10 - Dysphagia, unspecified Medications: New sod sulf-pot chloride-mag sulf 1.479-0.188- 0.225 gram (Sutab) PO PER PKG DIR 24 tabs 0RF Coding Level of Care Code Est Pt Level 4 (16289) Diagnoses Dysphagia R13.10 Chronic idiopathic constipation K59.04 Pre-op examination Z01.818 Peptic ulcer disease K27.9
[2022-11-20 09:49] VITALS: BP 121/84; PULSE 84; BMI 34.9
== END 2022-11-20 10:32 | disposition home or self-care (01) ==
PROVIDERS: PCP Internal Medicine; Visit Provider Nurse Practitioner
DX: R13.10 Dysphagia, unspecified (principal); K59.04 Chronic idiopathic constipation; Z01.818 Encounter for other preprocedural examination; K27.9 Peptic ulcer, site unspecified, unspecified as acute or chronic, without hemorrhage or perforation
CPT/HCPCS: 99214

== ENCOUNTER → 2022-11-20 09:46 | Outpatient (BNVA) | payer MEDICAID, SELFPAY | PROVIDERS: PCP Internal Medicine; Visit Provider Nurse Practitioner | DX: Z01.818 Encounter for other preprocedural examination (principal); R13.10 Dysphagia, unspecified; K59.04 Chronic idiopathic constipation; K27.9 Peptic ulcer, site unspecified, unspecified as acute or chronic, without hemorrhage or perforation | CPT/HCPCS: 99212 ==

== ENCOUNTER 2022-12-12 15:26 | Outpatient (AMB) | payer MEDICAID, SELFPAY ==
--- NOTE | 2022-12-12 15:32 | A.OFFVIS_ITS ---
Intake Vital Signs 12/12/22 15:35 Height 5 ft 2 in Weight 211 lb BMI 38.6 BP 132/78 Blood Pressure Location Rt brachial Position Sitting Pulse 68 Pulse Source Pulse Oximeter Pulse Oximetry (%) 98 Oxygen Delivery Method Room Air Intake Visit Reasons: Botox Intake Note: Pt presents to office for Botox injection. Allergies acetaminophen [Percocet] Allergy (Unknown, Verified 12/12/22 15:35) Unknown duloxetine [From CYMBALTA] Allergy (Unknown, Verified 12/12/22 15:35) UNKNOWN pregabalin [From LYRICA] Allergy (Unknown, Verified 12/12/22 15:35) UNKNOWN meperidine [From DEMEROL] Adverse Reaction (Intermediate, Verified 12/12/22 15:35) N/V oxycodone [From Percocet] Adverse Reaction (Verified 12/12/22 15:35) itching Medication List - Last Reconciled 12/12/22 by Maryam Negro MD acetaminophen 0 mg PO albuterol sulfate 90 mcg/actuation 2 puffs inhalation Q6H PRN amitriptyline 10 mg PO BEDTIME ammonium lactate 12% appl topical azelastine 1 spray intranasal BID blood pressure test kit-large As directed cholecalciferol (vitamin D3) 25 mcg PO DAILY diclofenac potassium 50 mg PO BID diclofenac sodium 1% (Arthritis Pain (diclofenac)) 4 grams topical QID dicyclomine 10 mg PO TID diphenhydramine HCl (Banophen) 25 mg PO BEDTIME PRN famotidine 40 mg PO BID fluticasone propion-salmeterol 230-21 mcg/actuation (Advair HFA) inhalation BID fluticasone propionate 50 mcg/actuation 1 inh inhalation BID hydrocortisone 2.5% (Proctosol HC) 1 appl MT BID loratadine 10 mg PO DAILY lorazepam 0.1 mg PO BID PRN magnesium oxide 400 mg PO DAILY 30 days methocarbamol 750 mg PO BID PRN montelukast (Singulair) 10 mg PO BEDTIME naproxen 500 mg PO BID PRN ondansetron 4 mg PO Q6H PRN pantoprazole (Protonix) 40 mg PO DAILY 30 days prednisone 5 mg PO QAM riboflavin (vitamin B2) 400 mg PO DAILY 30 days sertraline 25 mg PO DAILY PRN sod sulf-pot chloride-mag sulf 1.479-0.188- 0.225 gram (Sutab) PO PER PKG DIR sumatriptan succinate (Imitrex) take 1 tab at onset of headache; if no relief may repeat 1 tab after at least 2 hrs; max = 4 tabs/24 hr PO zolpidem 10 mg PO BEDTIME PRN HPI HPI Comments History of Present Illness Details 52y/o female comes for treatment of her Left hemifacial spasm with botox Botulinum toxin type A Lot [place] C [id number] X Exp 12/2024 was diluted with 2 cc of normal saline at a concentration of 5 units in 0.1 cc. Side effects were discussed and an informed consent was obtained. Muscles injected Christopher Lateral canthus - 15 units each left Nasolabial fold 10 units each Left zygomaticus 10 units Total used 50 units discarded 50 units PFSH Medical History Fibromyalgia FELI positive Irritable bowel syndrome with both constipation and diarrhea H/O keloid of skin History of meningitis Surgical History Keloid of skin H/O neck surgery Hx of section Hx of hysterectomy Hx of breast lump removal (~2019) History of bladder suspension procedure H/O bilateral breast reduction surgery Family History Mother Aneurysm Endometrial cancer Father No problems noted. Social History Alcohol intake: never Patient Tobacco Use Status: Never used Tobacco Sexual orientation: Straight/Heterosexual Gender identity: Female Physical Exam Vital Signs: Last Vital Signs Pulse 68 12/12/22 15:35 BP 132/78 12/12/22 15:35 Pulse Ox 98 12/12/22 15:35 Oxygen Delivery Method Room Air 12/12/22 15:35 BMI result Body Mass Index 38.6 Const General: cooperative and no acute distress Orientation/consciousness: patient oriented x3 HEENT Head: Yes normocephalic Resp Effort & Inspection: normal respiratory effort and able to speak in complete sentences Neuro General: patient oriented x3, gait normal and CN's II-XI intact bilaterally (w/ exception of Left lower hemifascial spasm.) Cognition (Neuro): normal cognition Motor exam (neuro): 5/5 motor strength present throughout Psych Appearance: grossly normal Mental Status: mental status grossly normal Speech and movement: Normal speech and movement present Affect: normal affect Attitude: cooperative Thought process: Normal thought process present Thought content: Normal thought content present Insight: Good insight present (Psych) Judgement: Good judgement present (Psych) Office Procedures Botulinum toxin Injection 59332 - Facial Nerve Procedure code (CPT) selection complete Office Meds onabotulinumtoxinA 100 unit solution for injection Performing Provider: Maryam Negro MD Performing Location: [facility] Administered by: Maryam Negro MD on 12/12/22 15:53 Dose Route Admin Location Dispensed Lot Number Expiration Date [facility] Senior It Engineer 100 unit subcut 100 units [id number] 12/31/24 9980-1068-21 [employer] Comments: see hpi Assessment & Plan Assessment & Plan (1) Hemifacial spasm of left side of face: Code(s): G51.32 - Clonic hemifacial spasm, left Plan Patient tolerated the procedure well she will call with any side effects Orders: Orders AMB Botulinum toxin Injection Today G51.32 - Clonic hemifacial spasm, left Coding Level of Care Code Est Pt Level 1 (65323) Diagnoses Hemifacial spasm of left side of face G51.32 CPT Codes Botox Injection - Botox 2: 27221 - Facial Nerve ([id number])
[2022-12-12 15:35] VITALS: BP 132/78; PULSE 68; O2SAT 98; BMI 38.6
== END 2022-12-12 15:50 | disposition home or self-care (01) ==
PROVIDERS: Visit Provider Psychiatry & Neurology Neurology
DX: G51.32 Clonic hemifacial spasm, left (principal)
CPT/HCPCS: 64612

== ENCOUNTER → 2022-12-12 15:26 | Outpatient (BNVA) | payer MEDICAID, SELFPAY | PROVIDERS: Visit Provider Psychiatry & Neurology Neurology | DX: G51.32 Clonic hemifacial spasm, left (principal) | CPT/HCPCS: 64612; 99211; J0585 ==

== ENCOUNTER 2023-01-12 11:09 | Outpatient (AMB) | payer MEDICAID, SELFPAY ==
[2023-01-12 11:13] VITALS: BP 118/79; PULSE 94; RESP 12; BMI 38.6
--- NOTE | 2023-01-12 11:13 | A.OFFVIS_ITS ---
Intake Vital Signs 01/12/23 11:13 Height 5 ft 2 in Weight 211 lb BMI 38.6 BP 118/79 Blood Pressure Location Lt brachial Position Sitting Respiration 12 Pulse 94 Pulse Source Pulse Oximeter Intake Visit Reasons: RT ACROMIOCLAVICULAR JOINT INJ/CONFIRMED Allergies acetaminophen [Percocet] Allergy (Unknown, Verified 01/12/23 11:14) Unknown duloxetine [From CYMBALTA] Allergy (Unknown, Verified 01/12/23 11:14) UNKNOWN pregabalin [From LYRICA] Allergy (Unknown, Verified 01/12/23 11:14) UNKNOWN meperidine [From DEMEROL] Adverse Reaction (Intermediate, Verified 01/12/23 11:14) N/V oxycodone [From Percocet] Adverse Reaction (Verified 01/12/23 11:14) itching HPI RT ACROMIOCLAVICULAR JOINT INJ/CONFIRMED HPI Details 52-year-old female who presents today to the office for a LEFT acromioclavicular joint injection. Denies any recent cough, cold, infection, fever or other significant changes in medical history since last office visit. Past procedure: 10/06/22: Bilateral acromioclavicular triston int injection: Good relief for 3 months PFSH Medical History Fibromyalgia FELI positive Irritable bowel syndrome with both constipation and diarrhea H/O keloid of skin History of meningitis Surgical History Keloid of skin H/O neck surgery Hx of section Hx of hysterectomy Hx of breast lump removal (~2019) History of bladder suspension procedure H/O bilateral breast reduction surgery Family History Mother Aneurysm Endometrial cancer Father No problems noted. Social History Alcohol intake: never Patient Tobacco Use Status: Never used Tobacco Sexual orientation: Straight/Heterosexual Gender identity: Female Review of Systems Const All systems reviewed & are unremarkable except as noted in HPI and below Physical Exam Vital Signs: Last Vital Signs Pulse 94 01/12/23 11:13 Resp 12 01/12/23 11:13 BP 118/79 01/12/23 11:13 BMI result Body Mass Index 38.6 General: Appears afebrile. Alert and oriented. Mood and affect appropriate. Follows and participates in conversation appropriately. Respiratory effort is unlabored. Able to transition from sit to stand unassisted. Ambulates with bilaterally normal heel strike and toe off. Office Procedures Joint Injection/Drain Joint Injection/Drain Details: Left acromioclavicular joint injection, ultrasound guided Primary Site: left shoulder Prep: site was prepped using sterile technique Injected: Kenalog (30 mg), with 1 mL of (bupivacaine 0.5%) and in the joint Approach Used: anterior Procedure: The patient tolerated the procedure well Coding Details: An ultrasound image of the injection was taken and stored in the permanent record. 31317 - Acromioclavicular with ultrasound guidance Procedure code (CPT) selection complete Results Reviewed Results Reviewed: No imaging is available for review. Assessment & Plan Assessment & Plan (1) Acromioclavicular joint arthritis: Code(s): M19.019 - Primary osteoarthritis, unspecified shoulder Plan Patient is status post left acromioclavicular joint injections under ultrasound guidance. Patient tolerated procedure well and was discharged home in stable condition with discharge instructions. All questions were answered. We will follow-up in two weeks via telephone or in clinic to assess response to therapy. A follow-up appointment was made during today's visit. Scribed for Dr. Díaz by Lance Carrillo, medical registrar, on 01/12/2023. I, Dr. Díaz, have personally reviewed and agree with the information entered by the scribe. Coding Level of Care Code Procedure Only Diagnoses Acromioclavicular joint arthritis M19.019 CPT Codes Coding - Joint 6: 36067 - Acromioclavicular with ultrasound guidance ([id number])
== END 2023-01-12 11:32 | disposition home or self-care (01) ==
PROVIDERS: PCP Internal Medicine; Visit Provider Internal Medicine
DX: M19.012 Primary osteoarthritis, left shoulder (principal)
CPT/HCPCS: 20606

== ENCOUNTER → 2023-01-12 11:09 | Outpatient (BNVA) | payer MEDICAID, SELFPAY | PROVIDERS: PCP Internal Medicine; Visit Provider Internal Medicine | DX: M19.012 Primary osteoarthritis, left shoulder (principal) | CPT/HCPCS: 20606; J0665; J3301 ==

== ENCOUNTER 2023-01-27 09:52 | Outpatient (AMB) | payer MEDICAID, SELFPAY ==
--- NOTE | 2023-01-27 10:11 | MHC.OFFVIS ---
Intake Vital Signs 01/27/23 10:21 Height 5 ft 2 in Weight 191 lb BMI 34.9 BP 124/82 Blood Pressure Location Rt brachial Position Sitting Intake Visit Reasons: follow up/confirmed Intake Note: Patient presents for follow up. Allergies acetaminophen [Percocet] Allergy (Unknown, Verified 01/27/23 10:25) Unknown duloxetine [From CYMBALTA] Allergy (Unknown, Verified 01/27/23 10:25) UNKNOWN pregabalin [From LYRICA] Allergy (Unknown, Verified 01/27/23 10:25) UNKNOWN meperidine [From DEMEROL] Adverse Reaction (Intermediate, Verified 01/27/23 10:25) N/V oxycodone [From Percocet] Adverse Reaction (Verified 01/27/23 10:25) itching Medication List - Last Reconciled 01/27/23 by CHRIST Shannon acetaminophen 0 mg PO albuterol sulfate 90 mcg/actuation 2 puffs inhalation Q6H PRN amitriptyline 10 mg PO BEDTIME ammonium lactate 12% appl topical azelastine 1 spray intranasal BID blood pressure test kit-large As directed cholecalciferol (vitamin D3) 25 mcg PO DAILY diclofenac potassium 50 mg PO BID diclofenac sodium 1% (Arthritis Pain (diclofenac)) 4 grams topical QID dicyclomine 10 mg PO TID diphenhydramine HCl (Banophen) 25 mg PO BEDTIME PRN famotidine 40 mg PO BID fluticasone propion-salmeterol 230-21 mcg/actuation (Advair HFA) inhalation BID fluticasone propionate 50 mcg/actuation 1 inh inhalation BID hydrocortisone 2.5% (Proctosol HC) 1 appl PA BID loratadine 10 mg PO DAILY lorazepam 0.1 mg PO BID PRN magnesium oxide 400 mg PO DAILY 30 days methocarbamol 750 mg PO BID PRN montelukast (Singulair) 10 mg PO BEDTIME naproxen 500 mg PO BID PRN ondansetron 4 mg PO Q6H PRN pantoprazole (Protonix) 40 mg PO DAILY 30 days prednisone 5 mg PO QAM riboflavin (vitamin B2) 400 mg PO DAILY 30 days sertraline 25 mg PO DAILY PRN sod sulf-pot chloride-mag sulf 1.479-0.188- 0.225 gram (Sutab) PO PER PKG DIR sumatriptan succinate (Imitrex) take 1 tab at onset of headache; if no relief may repeat 1 tab after at least 2 hrs; max = 4 tabs/24 hr PO zolpidem 10 mg PO BEDTIME PRN HPI HPI Comments History of Present Illness Details 52-yr-old female presents for f/u visit. Pt reports she is concerned that her mother and maternal aunt both had intracranial aneurysms. She states she was told she should be evaluated for possible aneurysm as well. She states she is having an occassional migraine, but when she has the migraine it is very strong. Left frontal region which runs across to right side of head. The pain is pulsating a/w photo/phono/osmophobia, vertigo, and nausea. In the past, Sumatriptan was helpful but she has not had a refill in some time. She asks for a refill of her Mag and B2. She states her left hemifascial spasm is much better since starting Botox. [facility] Medical History Fibromyalgia FELI positive Irritable bowel syndrome with both constipation and diarrhea H/O keloid of skin History of meningitis Surgical History Keloid of skin H/O neck surgery Hx of section Hx of hysterectomy Hx of breast lump removal (~2019) History of bladder suspension procedure H/O bilateral breast reduction surgery Family History Mother Aneurysm Endometrial cancer Father No problems noted. Social History Alcohol intake: never Patient Tobacco Use Status: Never used Tobacco Sexual orientation: Straight/Heterosexual Gender identity: Female Review of Systems Const All systems reviewed & are unremarkable except as noted in HPI and below Physical Exam Vital Signs: Last Vital Signs BP 124/82 01/27/23 10:21 BMI result Body Mass Index 34.9 Const General: cooperative and no acute distress Orientation/consciousness: patient oriented x3 HEENT Head: Yes normocephalic Resp Effort & Inspection: normal respiratory effort and able to speak in complete sentences Neuro Other: Short narrow steps- steady gait General: patient oriented x3 and CN's II-XI intact bilaterally ( w/ exception of Left lower hemifascial spasm.) Cognition (Neuro): normal cognition Psych Appearance: grossly normal Mental Status: mental status grossly normal Speech and movement: Normal speech and movement present Affect: normal affect Attitude: cooperative Thought process: Normal thought process present Assessment & Plan Assessment & Plan (1) Migraine without aura: Code(s): G43.009 - Migraine without aura, not intractable, without status migrainosus (2) Hemifacial spasm of left side of face: Code(s): G51.32 - Clonic hemifacial spasm, left (3) Family history of cerebral aneurysm: Code(s): Z82.49 - Family history of ischemic heart disease and other diseases of the circulatory system Plan Pt advised to undergo brain MRA to assess for intracranial aneurysm in setting of strong family h/o intracranial aneurysm. For Migraine: Resume Riboflavin and Magnesium. Resume Sumatriptan 50-100mg prn. Naproxen prn. For left hemifascial spasm- Continue Botox as sheduled, as pt is having good clinical effect from use. f/u in 3-4 months or sooner prn. Orders: Orders MR angio head wo con Today G43.009 - Migraine without aura, not intractable, without status migrainosus, G51.32 - Clonic hemifacial spasm, left, Z82.49 - Family history of ischemic heart disease and other diseases of the circulatory system Medications: New sumatriptan succinate (0.5 - 1 x 100 mg) 50 - 100 mg orally at onset of headache, may repeat in 2 hrs PRN; max 2 tabs per day or 4 tabs/week (may take with Ibuprofen) 30 days 12 tabs 6RF migraine headache alprazolam 0.25 mg orally 1 tab 30 minutes prior to MRI, may repeat x's 1; 1 day 2 tabs 0RF Refilled riboflavin (vitamin B2) qam 400 mg PO DAILY 30 days 30 tabs 6RF magnesium oxide 400 mg PO DAILY 30 days 30 tabs 6RF Coding Level of Care Code Est Pt Level 4 (90413) Diagnoses Migraine without aura G43.009 Hemifacial spasm of left side of face G51.32 Family history of cerebral aneurysm Z82.49
[2023-01-27 10:21] VITALS: BP 124/82; BMI 34.9
== END 2023-01-27 10:53 | disposition home or self-care (01) ==
PROVIDERS: PCP Internal Medicine; Visit Provider Nurse Practitioner Family
DX: G43.009 Migraine without aura, not intractable, without status migrainosus (principal); G51.32 Clonic hemifacial spasm, left; Z82.49 Family history of ischemic heart disease and other diseases of the circulatory system
CPT/HCPCS: 99214

== ENCOUNTER → 2023-01-27 09:52 | Outpatient (BNVA) | payer MEDICAID, SELFPAY | PROVIDERS: PCP Internal Medicine; Visit Provider Nurse Practitioner Family | DX: G43.009 Migraine without aura, not intractable, without status migrainosus (principal); G51.32 Clonic hemifacial spasm, left; Z82.49 Family history of ischemic heart disease and other diseases of the circulatory system | CPT/HCPCS: 99212 ==

== ENCOUNTER 2023-03-13 16:16 | Outpatient (REF) | payer MEDICAID, SELFPAY ==
[2023-03-13 18:17] LABS: Influenza A PCR NEGATIVE (Negative); Influenza B PCR NEGATIVE (Negative); Resp Syncy Virus RNA Qual PCR NEGATIVE (Negative); SARS COV2 PCR INHOUSE NEGATIVE (Negative)
== END 2023-03-13 16:17 | disposition home or self-care (01) ==
LOC: HO.CHCLNP 16:16
PROVIDERS: Visit Provider Internal Medicine
DX: R05.1 Acute cough (principal); H66.002 Acute suppurative otitis media without spontaneous rupture of ear drum, left ear; Z11.52 Encounter for screening for COVID-19
CPT/HCPCS: 0241U

== ENCOUNTER 2023-03-23 13:23 | Outpatient (REF) | payer MEDICAID, SELFPAY ==
--- NOTE | ~2023-03-23 | US_ITS ---
EXAMINATION: US CHEST CLINICAL INFORMATION: Right chest wall wound with recent drainage. Assess for deep soft tissue infection. COMPARISON: None available. TECHNIQUE Targeted ultrasound images were obtained by the exhibit electrician of the area of concern as indicated by the patient in the right axilla/lateral chest wall. Radiologist was not in attendance. Images were later provided for interpretation. FINDINGS: There is a 1.5 x 0.1 x 0.6 cm elongated, hypoechoic collection in the superficial soft tissues of the area of concern indicated by the patient in the region of the scar in the right axilla/lateral chest wall. No internal vascularity was demonstrated. No gross complex fluid collection or abscess is identified deep to the superficial collection. US/US chest IMPRESSION: 1.5 x 0.1 x 0.6 cm elongated, hypoechoic collection in the superficial soft tissues of the area of concern indicated by the patient in the region of the scar in the right axilla/lateral chest wall. No internal vascularity was demonstrated. No gross complex fluid collection or abscess is identified deep to the superficial collection. Correlation with clinical exam recommended to determine further management include possible additional imaging with CT scan with intravenous contrast.
== END 2023-03-23 13:24 | disposition home or self-care (01) ==
LOC: HO.US 13:23
PROVIDERS: PCP Internal Medicine; Visit Provider Internal Medicine
DX: L02.91 Cutaneous abscess, unspecified (principal)
CPT/HCPCS: 76604

== ENCOUNTER 2023-05-18 11:58 | Outpatient (REF) | payer MEDICAID, SELFPAY | END 2023-05-18 11:59 | disposition home or self-care (01) | LOC: HO.CHCLNP 11:58 | PROVIDERS: Visit Provider Family Medicine | DX: J06.9 Acute upper respiratory infection, unspecified (principal) | CPT/HCPCS: 87070 ==

== ENCOUNTER 2023-05-27 08:38 | Outpatient (REF) | payer MEDICAID, SELFPAY ==
--- NOTE | ~2023-05-27 | MM_ITS ---
EXAMINATION: MM SCREENING DIGITAL BREAST TOMOSYNTHESIS, BILATERAL CLINICAL INFORMATION: Screening. Asymptomatic. Patient is status post bilateral breast reduction. COMPARISON: Mammography: This study is compared with prior exams dating back to 2017. TECHNIQUE: Digital breast tomosynthesis is performed in both the craniocaudal and mediolateral oblique views along with computer-aided detection (CAD). Synthesized 2D images are generated from the tomosynthesis. FINDINGS: There are scattered areas of fibroglandular density (ACR BI-RADS breast composition Category b). There are no significant masses, abnormal calcifications, or other abnormalities. Post reduction changes are present in each breast. MM/MM tomosynthesis screening BI IMPRESSION: No mammographic evidence of malignancy. ASSESSMENT: BI-RADS BI-RADS 1 - Negative RECOMMENDATION: Routine annual mammography screening. 1 year F/U This examination should not preclude the clinical evaluation of a suspicious palpable abnormality. This patient's information was entered into a reminder system with a target due date for their next mammogram.
== END 2023-05-27 08:39 | disposition home or self-care (01) ==
LOC: HO.MAMMO 08:38
PROVIDERS: PCP Internal Medicine; Visit Provider Internal Medicine
DX: Z12.31 Encounter for screening mammogram for malignant neoplasm of breast (principal)
CPT/HCPCS: 77063; 77067

== ENCOUNTER → 2023-05-27 08:45 | Outpatient (BNV) | payer MEDICAID, SELFPAY | PROVIDERS: PCP Internal Medicine; Visit Provider Radiology Diagnostic Radiology | DX: Z12.31 Encounter for screening mammogram for malignant neoplasm of breast (principal) | CPT/HCPCS: 77063; 77067 ==

== ENCOUNTER 2023-06-02 17:57 | Outpatient (REF) | payer MEDICAID, SELFPAY ==
--- NOTE | ~2023-06-02 | MR_ITS ---
EXAMINATION: MR ANGIOGRAPHY BRAIN WITHOUT CONTRAST CLINICAL INFORMATION: Family history of ischemic heart disease and cerebral aneurysm. Migraine. COMPARISON: Brain MRI from 07/25/2021 and 08/05/2021. TECHNIQUE: 3D [id number] MR angiography was performed through the brain without the use of intravenous gadolinium. 3D postprocessing including acquisition of multiplanar MIP reformats are obtained at the technologist workstation and utilized for image interpretation. Stenoses are assessed in accordance with NASCET criteria unless otherwise indicated. FINDINGS: Normal flow-related signal within the anterior circulation without evidence of focal stenosis or occlusion of the intradural internal carotid, middle cerebral, or anterior cerebral arteries. Normal flow-related signal within the posterior circulation without evidence of focal stenosis or occlusion of the intradural vertebral, basilar, superior cerebellar, or posterior cerebral arteries. No demonstrated intradural aneurysms. No additional significant abnormalities on limited evaluation of the intracranial structures. MR/MR angio head wo con IMPRESSION: Normal MRA of the head. No demonstrated intracranial aneurysms.
== END 2023-06-02 17:58 | disposition home or self-care (01) ==
LOC: HO.MRI 17:57
PROVIDERS: PCP Internal Medicine; Visit Provider Nurse Practitioner Family
DX: G51.32 Clonic hemifacial spasm, left (principal); G43.009 Migraine without aura, not intractable, without status migrainosus; Z82.49 Family history of ischemic heart disease and other diseases of the circulatory system
CPT/HCPCS: 70544

== ENCOUNTER 2023-06-04 11:47 | Outpatient (AMB) | payer MEDICAID, SELFPAY ==
--- NOTE | 2023-06-04 12:00 | MHC.OFFVIS ---
Intake Vital Signs 06/04/23 12:28 Height 5 ft 2 in Weight 200 lb BMI 36.6 BP 111/63 Blood Pressure Location Lt brachial Position Sitting Pulse 86 Intake Visit Reasons: 6 Month Follow up Intake Note: Patient follow up for abdominal pain Patient cc: abdominal pain with bloating, Nauseas, acid reflex with burning sensation, diarrhea with hemorrhoids. Parachute/Combatant Diver Officer Required: Yes Parachute/Combatant Diver Officer Name: [facility]eter Accompanied by: Self / Same As Patient Allergies acetaminophen [Percocet] Allergy (Unknown, Verified 06/04/23 12:25) Unknown duloxetine [From CYMBALTA] Allergy (Unknown, Verified 06/04/23 12:25) UNKNOWN pregabalin [From LYRICA] Allergy (Unknown, Verified 06/04/23 12:25) UNKNOWN meperidine [From DEMEROL] Adverse Reaction (Intermediate, Verified 06/04/23 12:25) N/V oxycodone [From Percocet] Adverse Reaction (Verified 06/04/23 12:25) itching HPI 6 Month Follow up HPI Details Assessment & Plan (1) Dysphagia: Comment: food and liquid stickng med sternal Code(s): R13.10 - Dysphagia, unspecified Plan: [place] [facility] [employer] She is doing well with her GI medications, rufino the bentyl...EXCEPT she is choking more again and having food stuck mid sternaly. She had an EGD in 2020 with dilation, but it is uncertain if this helped as she can't remember and because she interrupted our care seeing another service briefly for 2nd opinion on her abdominal pain. She will not have the colonoscopy unless she can of the pill prep because the liquid prep made her quite sick the last time. She also has a lot of confusion about prepping so once we have a schedule assuming we can get the suit tab covered then I will bring her back in to go over the prep with me to help clarify things. I am going to add an EGD to see if dilation helps her I am uncertain whether it is more esophageal spasm than stricture pathology at play here. I did encourage her to take her dicyclomine which she says she has fallen off of lately and I explained that this does not just help her abdominal cramping but also helps her esophagus to work better in this is 1 possible explanation for her return of her worsening dysphagia. For now I will see her in 6 months since I do not know when were going to get the colonoscopy/EGD scheduled as it is dependent on Sutab being approved. Again I want to bring her in to see me so I can go over the prep since she has a lot of confusion. Return office visit in 6 months (2) Chronic idiopathic constipation: Code(s): K59.04 - Chronic idiopathic constipation (3) Pre-op examination: Code(s): Z01.818 - Encounter for other preprocedural examination (4) Peptic ulcer disease: Code(s): K27.9 - Peptic ulcer, site unspecified, unspecified as acute or chronic, without hemorrhage or perforation Orders: Orders EGD/[place] Combo - G I Use Only 11/20/22 Z01.818 - Encounte r for other prepro cedural examinatio n, K27.9 - Peptic ulcer, site unspec ified, unspecified as acute or chron ic, without hemorr harjinder or perforatio n, R13.10 - Dyspha herminia, unspecified Medications: New sod sulf-pot chlor juliet-mag sulf 1.479 -0.188- 0.225 gram (Sutab) PO PER PKG DIR 24 tabs 0RF * EGD/COLONOSCOPY She tried to prep with the sutab, but it made her very ill and she had N/V/D BIOPSY CORRESPONDENCE On 12/10/22 @ 11:50 Tana Holder Wrote To Caruso just I Sutab approved On 12/10/22 @ 11:49 Tana Holder Wrote To Tana Holder pharmacy called, spoke to Nataliia. Informed her sutab was approved- she reports patient pick it up 12/05 On 12/05/22 @ 12:36 Tana Holder Wrote To Tana Holder unable to call pharmacy- when calling states having technical issues please call back, attempted several times in the last 45min. will try again later On 12/05/22 @ 08:13 Tana Holder Wrote To Tana Holder SUTAB PA approved #[id number] Expires 01/03/23. will notify pharmacy. TODAY'S VISIT [place] [employer] [employer] She tried to take the Sutab but could not r/t N/V/D, she also did not do well with liquid preps so I think Cologuard woud be better. She is tearful today because her was diagnosed with cancer of the pancreas recently and he is not operative, but will be getting chemotherapy and radiation therapy. But he has difficulty with this venous access and he ahs not been able to start yet. This is very hard on her. Because of the difficulties dx'ing her husbands illness and her inability to get a colonoscopy she is very worried about her own health. At this point, I will get a CT of the abd and pelvis and reschedule for an EGD only since this does not require prep. She continues on her pantoprazole 40 mg in the morning and famotidine 40 mg at night along with her dicyclomine 10 mg 3 times a day as needed. Return office visit in 8 weeks [facility] Medical History Fibromyalgia FELI positive Irritable bowel syndrome with both constipation and diarrhea H/O keloid of skin History of meningitis Surgical History Keloid of skin H/O neck surgery Hx of section Hx of hysterectomy Hx of breast lump removal (~2019) History of bladder suspension procedure H/O bilateral breast reduction surgery Family History Mother Aneurysm Endometrial cancer Father No problems noted. Social History Alcohol intake: never Patient Tobacco Use Status: Never used Tobacco Sexual orientation: Straight/Heterosexual Gender identity: Female Review of Systems Const Denies fatigue, Denies fever(s), Denies night sweats, Denies poor appetite and Denies weight loss ENT Reports Normal hearing present, Denies dental pain, Denies dysphagia, Denies hearing loss, Denies mouth pain, Denies odynophagia, Denies throat swelling, Denies tongue swelling and Reports other (Dentition adequate) Card Reports no additional complaints Resp Reports no additional complaints GI Details: Reports abdominal pain, Denies melena, Denies bloating, Denies hematochezia, Denies constipation, Denies GI cramping, Denies dysphagia, Denies excessive flatus, Denies early satiety, Reports dyspepsia, Reports heartburn, Denies diarrhea, Denies nausea, Denies odynophagia, Denies vomiting and Denies hematemesis Skin/Breast Denies pruritus, Denies lesions, Denies rash and Denies jaundice Neuro Reports Normal hearing present and Denies Abnormal speech present Psych Reports anxiety Endo Denies fatigue Aller/Immun Denies throat swelling and Denies tongue swelling Physical Exam Vital Signs: Last Vital Signs Pulse 86 06/04/23 12:28 BP 111/63 06/04/23 12:28 BMI result Body Mass Index 36.6 Const General: cooperative, no acute distress, well developed and well groomed Nutritional Appearance: well nourished and obese Orientation/consciousness: oriented to person, oriented to place and oriented to time Limitations: language barrier HEENT Head: Yes normocephalic and Yes atraumatic Eyes General: appearance normal, both eyes and all related structures Pupils: Equal, round and reactive pupils present Neck Neck: Yes normal visual inspection and Yes no lymphadenopathy Thyroid: Thyroid normal Resp Effort & Inspection: normal respiratory effort and able to speak in complete sentences Auscultation: clear to auscultation bilaterally Cardio Rate: regular rate Rhythm: regular rhythm Heart sounds: Normal, physiologic split S2 sound present Peripheral pulses: radial pulses present and posterior tibial pulses present GI Inspection: No distended, Yes Abdominal panniculus present and Yes obesity Palpation (GI): Soft to palpation, nontender, no guarding, not rigid and No hepatosplenomegaly present Percussion: Yes normal to percussion Auscultation: normal bowel sounds Rectal Exam - Female: deferred Skin General skin exam: no rashes or lesions noted, turgor normal, skin not dry, no jaundice, No spider nevi and no striae Rashes: no rashes Nails: normal Neuro General: oriented to person, oriented to place and oriented to time Cranial nerves: Yes Equal, round and reactive pupils present and Yes Normal hearing present Speech: No Abnormal speech present Extrem General: Yes normal to inspection, No clubbing, No cyanosis and No edema Psych Appearance: grossly normal and well kempt Mental Status: mental status grossly normal Speech and movement: Normal speech and movement present Affect: Labile affect present and Sad affect present Attitude: cooperative Thought process: Normal thought process present and not confabulating Thought content: Normal thought content present Insight: Fair insight present (Psych) and Limited insight present (Psych) Judgement: Fair judgement present (Psych) and Limited judgement present (Psych) Assessment & Plan Assessment & Plan (1) Chronic idiopathic constipation: Code(s): K59.04 - Chronic idiopathic constipation (2) GERD (gastroesophageal reflux disease): Code(s): K21.9 - Gastro-esophageal reflux disease without esophagitis (3) Dysphagia: Comment: food and liquid stickng med sternal Code(s): R13.10 - Dysphagia, unspecified (4) Abdominal pain: Code(s): R10.9 - Unspecified abdominal pain Plan [place] [employer] She tried to take the Sutab but could not r/t N/V/D, she also did not do well with liquid preps so I think Cologuard woud be better. She is tearful today because her was diagnosed with cancer of the pancreas recently and he is not operative, but will be getting chemotherapy and radiation therapy. But he has difficulty with this venous access and he ahs not been able to start yet. This is very hard on her. Because of the difficulties dx'ing her husbands illness and her inability to get a colonoscopy she is very worried about her own health. At this point, I will get a CT of the abd and pelvis and reschedule for an EGD only since this does not require prep. She continues on her pantoprazole 40 mg in the morning and famotidine 40 mg at night along with her dicyclomine 10 mg 3 times a day as needed. Return office visit in 8 weeks Orders: Orders CT abdomen pelvis w IV con Today R10.9 - Unspecified abdominal pain EGD with Layne - GI Use Only Today R13.10 - Dysphagia, unspecified Comprehensive Met. Panel Today R10.9 - Unspecified abdominal pain Complete Blood Count Auto Diff Today R10.9 - Unspecified abdominal pain Medications: Refilled famotidine 40 mg PO BID 180 tabs 2RF K27.9 - Peptic ulcer, site unspecified, unspecified as acute or chronic, without hemorrhage or perforation dicyclomine 10 mg PO TID 90 caps 3RF K22.4 - Dyskinesia of esophagus pantoprazole (Protonix) 40 mg PO DAILY 30 tabs 11RF 30 days K27.9 - Peptic ulcer, site unspecified, unspecified as acute or chronic, without hemorrhage or perforation Discontinued sod sulf-pot chloride-mag sulf 1.479-0.188- 0.225 gram (Sutab) Discontinued Reason: Doctor's Order PO PER PKG DIR 24 tabs 0RF Coding Level of Care Code Est Pt Level 4 (85214) Diagnoses Chronic idiopathic constipation K59.04 GERD (gastroesophageal reflux disease) K21.9 Dysphagia R13.10 Abdominal pain R10.9
[2023-06-04 12:28] VITALS: BP 111/63; PULSE 86; BMI 36.6
== END 2023-06-04 13:00 | disposition home or self-care (01) ==
PROVIDERS: PCP Internal Medicine; Visit Provider Nurse Practitioner
DX: K59.04 Chronic idiopathic constipation (principal); K21.9 Gastro-esophageal reflux disease without esophagitis; R13.10 Dysphagia, unspecified; R10.9 Unspecified abdominal pain
CPT/HCPCS: 99214

== ENCOUNTER → 2023-06-04 11:47 | Outpatient (BNVA) | payer MEDICAID, SELFPAY | PROVIDERS: PCP Internal Medicine; Visit Provider Nurse Practitioner | DX: R13.10 Dysphagia, unspecified (principal); K21.9 Gastro-esophageal reflux disease without esophagitis; K59.04 Chronic idiopathic constipation; R10.9 Unspecified abdominal pain | CPT/HCPCS: 99212 ==

== ENCOUNTER 2023-08-17 15:14 | Outpatient (AMB) | payer MEDICAID, SELFPAY ==
--- NOTE | 2023-08-17 15:30 | MHC.OFFVIS ---
Vital Signs 08/17/23 15:33 Height 5 ft 2 in Weight 206 lb BMI 37.7 BP 128/70 Blood Pressure Location Rt brachial Position Sitting Respiration 17 Pulse 88 Pulse Source Pulse Oximeter Pulse Oximetry (%) 98 Oxygen Delivery Method Room Air Intake Visit Reasons: botox Intake Note: Pt presents to the office for Botox injections. Industrial Engineering Technician Required: Yes Industrial Engineering Technician Name: Funmi Castillo CMA Allergies acetaminophen [Percocet] Allergy (Unknown, Verified 08/17/23 15:32) Unknown duloxetine [From CYMBALTA] Allergy (Unknown, Verified 08/17/23 15:32) UNKNOWN pregabalin [From LYRICA] Allergy (Unknown, Verified 08/17/23 15:32) UNKNOWN meperidine [From DEMEROL] Adverse Reaction (Intermediate, Verified 08/17/23 15:32) N/V oxycodone [From Percocet] Adverse Reaction (Verified 08/17/23 15:32) itching Medication List - Last Reconciled 08/18/23 by Maryam Negro MD acetaminophen 0 mg PO albuterol sulfate 90 mcg/actuation 2 puffs inhalation Q6H PRN alprazolam 0.25 mg orally 1 tab 30 minutes prior to MRI, june repeat x's 1; 1 day amitriptyline 10 mg PO BEDTIME ammonium lactate 12% appl topical azelastine 1 spray intranasal BID blood pressure test kit-large As directed cholecalciferol (vitamin D3) 25 mcg PO DAILY diclofenac potassium 50 mg PO BID diclofenac sodium 1% (Arthritis Pain (diclofenac)) 4 grams topical QID dicyclomine 10 mg PO TID diphenhydramine HCl (Banophen) 25 mg PO BEDTIME PRN famotidine 40 mg PO BID fluticasone propion-salmeterol 230-21 mcg/actuation (Advair HFA) inhalation BID fluticasone propionate 50 mcg/actuation 1 inh inhalation BID hydrocortisone 2.5% (Proctosol HC) 1 appl NM BID loratadine 10 mg PO DAILY lorazepam 0.1 mg PO BID PRN magnesium oxide 400 mg PO DAILY 30 days methocarbamol 750 mg PO BID PRN montelukast (Singulair) 10 mg PO BEDTIME naproxen 500 mg PO BID PRN ondansetron 4 mg PO Q6H PRN pantoprazole (Protonix) 40 mg PO DAILY 30 days prednisone 5 mg PO QAM riboflavin (vitamin B2) 400 mg PO DAILY 30 days sertraline 25 mg PO DAILY PRN sumatriptan succinate 50 - 100 mg orally at onset of headache, may repeat in 2 hrs PRN; max 2 tabs per day or 4 tabs/week (may take with Ibuprofen) 30 days zolpidem 10 mg PO BEDTIME PRN HPI Comments Details: 53y/o female comes for treatment of her Left hemifacial spasm with botox Botulinum toxin type A Lot no C [id number] X Exp 07/2025 was diluted with 2 cc of normal saline at a concentration of 5 units in 0.1 cc. Side effects were discussed and an informed consent was obtained. Muscles injected Christopher Lateral canthus - 15 units each left Nasolabial fold 10 units each Left zygomaticus 10 units Total used 50 units discarded 50 units PFSH Medical History Fibromyalgia FELI positive Irritable bowel syndrome with both constipation and diarrhea H/O keloid of skin History of meningitis Surgical History Keloid of skin H/O neck surgery Hx of section Hx of hysterectomy Hx of breast lump removal (~2019) History of bladder suspension procedure H/O bilateral breast reduction surgery Family History Mother Aneurysm Endometrial cancer Father No problems noted. Social History Alcohol intake: never Patient Tobacco Use Status: Never used Tobacco Sexual orientation: Straight/Heterosexual Gender identity: Female Physical Exam Vital Signs: Last Vital Signs Pulse 88 08/17/23 15:33 Resp 17 08/17/23 15:33 BP 128/70 08/17/23 15:33 Pulse Ox 98 08/17/23 15:33 Oxygen Delivery Method Room Air 08/17/23 15:33 BMI result Body Mass Index 37.7 Const General: cooperative and no acute distress Orientation/consciousness: patient oriented x3 HEENT Head: Yes normocephalic Resp Effort & Inspection: normal respiratory effort and able to speak in complete sentences Neuro General: patient oriented x3, gait normal and CN's II-XI intact bilaterally (w/ exception of Left lower hemifascial spasm.) Cognition (Neuro): normal cognition Motor exam (neuro): 5/5 motor strength present throughout Psych Appearance: grossly normal Mental Status: mental status grossly normal Speech and movement: Normal speech and movement present Affect: normal affect Attitude: cooperative Thought process: Normal thought process present Thought content: Normal thought content present Insight: Good insight present (Psych) Judgement: Good judgement present (Psych) Office Procedures Botulinum toxin Injection 29249 - Facial Nerve Procedure code (CPT) selection complete Office Meds onabotulinumtoxinA 100 unit solution for injection Performing Provider: Maryam Negro MD Performing Location: [facility] Administered by: Maryam Negro MD on 08/18/23 08:36 Dose Route Admin Location Dispensed Lot Number Expiration Date [facility] Tie Binder 50 unit subcut 100 units [id number] 07/31/25 4028-5433-69 [employer]ERGAN/BOTOX Comments: see hpi Assessment & Plan Assessment & Plan (1) Hemifacial spasm of left side of face: Code(s): G51.32 - Clonic hemifacial spasm, left Category: Medical Plan Patient tolerated the procedure well she will call with any side effects Orders: Orders AMB Botulinum toxin Injection 08/17/23 G51.32 - Clonic hemifacial spasm, left Medications: New onabotulinumtoxinA 100 units subcut ONCE 1 ea 0RF facial spasm G51.32 - Clonic hemifacial spasm, left Coding Level of Care Code Est Pt Level 1 (35925) Diagnoses Hemifacial spasm of left side of face G51.32 CPT Codes Botox Injection - Botox 2: 04182 - Facial Nerve ([id number])
[2023-08-17 15:33] VITALS: BP 128/70; PULSE 88; RESP 17; O2SAT 98; BMI 37.7
== END 2023-08-17 15:55 | disposition home or self-care (01) ==
PROVIDERS: PCP Internal Medicine; Visit Provider Psychiatry & Neurology Neurology
DX: G51.32 Clonic hemifacial spasm, left (principal)
CPT/HCPCS: 64612

== ENCOUNTER → 2023-08-17 15:14 | Outpatient (BNVA) | payer MEDICAID, SELFPAY | PROVIDERS: PCP Internal Medicine; Visit Provider Psychiatry & Neurology Neurology | DX: G51.32 Clonic hemifacial spasm, left (principal) | CPT/HCPCS: 64612; 99211; J0585 ==

== ENCOUNTER 2023-08-25 09:06 | Outpatient (AMB) | payer MEDICAID, SELFPAY ==
--- NOTE | 2023-08-25 09:07 | MHC.OFFVIS ---
Vital Signs 08/25/23 09:18 Height 5 ft 2 in Weight 206 lb BMI 37.7 BP 124/80 Blood Pressure Location Lt brachial Position Sitting Pulse 85 Pulse Source Pulse Oximeter Pulse Oximetry (%) 97 Oxygen Delivery Method Room Air Intake Visit Reasons: 3 mo f/u - conf Intake Note: Patient presents for 3 months f/u. Getting more bumps on left forehead. Psychological Tests Sales Agent Services: Psychological Tests Sales Agent Offered & Declined Allergies acetaminophen [Percocet] Allergy (Unknown, Verified 08/25/23 09:17) Unknown duloxetine [From CYMBALTA] Allergy (Unknown, Verified 08/25/23 09:17) UNKNOWN pregabalin [From LYRICA] Allergy (Unknown, Verified 08/25/23 09:17) UNKNOWN meperidine [From DEMEROL] Adverse Reaction (Intermediate, Verified 08/25/23 09:17) N/V oxycodone [From Percocet] Adverse Reaction (Verified 08/25/23 09:17) itching Medication List - Last Reconciled 08/25/23 by CHRIST Shannon acetaminophen 0 mg PO albuterol sulfate 90 mcg/actuation 2 puffs inhalation Q6H PRN alprazolam 0.25 mg orally 1 tab 30 minutes prior to MRI, may repeat x's 1; 1 day amitriptyline 10 mg PO BEDTIME ammonium lactate 12% appl topical azelastine 1 spray intranasal BID blood pressure test kit-large As directed cholecalciferol (vitamin D3) 25 mcg PO DAILY diclofenac potassium 50 mg PO BID diclofenac sodium 1% (Arthritis Pain (diclofenac)) 4 grams topical QID dicyclomine 10 mg PO TID diphenhydramine HCl (Banophen) 25 mg PO BEDTIME PRN famotidine 40 mg PO BID fluticasone propion-salmeterol 230-21 mcg/actuation (Advair HFA) inhalation BID fluticasone propionate 50 mcg/actuation 1 inh inhalation BID hydrocortisone 2.5% (Proctosol HC) 1 appl [place] BID loratadine 10 mg PO DAILY lorazepam 0.1 mg PO BID PRN magnesium oxide 400 mg PO DAILY 30 days methocarbamol 750 mg PO BID PRN montelukast (Singulair) 10 mg PO BEDTIME naproxen 500 mg PO BID PRN ondansetron 4 mg PO Q6H PRN pantoprazole (Protonix) 40 mg PO DAILY 30 days prednisone 5 mg PO QAM riboflavin (vitamin B2) 400 mg PO DAILY 30 days sertraline 25 mg PO DAILY PRN sumatriptan succinate 50 - 100 mg orally at onset of headache, may repeat in 2 hrs PRN; max 2 tabs per day or 4 tabs/week (may take with Ibuprofen) 30 days zolpidem 10 mg PO BEDTIME PRN HPI Comments Details: 53-yr-old female presents for f/u visit. Pt reports increased stress r/t her is undergoing pancreatic cancer tx. 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 The brain MRA was normal. She is having occasional mild headaches, not as strong. She has not had any recent migraines. She notes that she has been biting the side of her tongue. She has previously not tolerated wearing mouth guards. The Botox is still helpful for her left hemifascial spasms. May have some left frontal region bumps afterwards. She is having bilateral shoulder pains, has rotator cuff injury. States was going to have a left shoulder repair, but deferred this d/t her 's health issues. MR/MR angio head wo con IMPRESSION: Normal MRA of the head. No demonstrated intracranial aneurysms. [facility] Medical History Fibromyalgia FELI positive Irritable bowel syndrome with both constipation and diarrhea H/O keloid of skin History of meningitis Surgical History Keloid of skin H/O neck surgery Hx of section Hx of hysterectomy Hx of breast lump removal (~2019) History of bladder suspension procedure H/O bilateral breast reduction surgery Family History Mother Aneurysm Endometrial cancer Father No problems noted. Social History Alcohol intake: never Patient Tobacco Use Status: Never used Tobacco Sexual orientation: Straight/Heterosexual Gender identity: Female Physical Exam Vital Signs: Last Vital Signs Pulse 85 08/25/23 09:18 BP 124/80 08/25/23 09:18 Pulse Ox 97 08/25/23 09:18 Oxygen Delivery Method Room Air 08/25/23 09:18 BMI result Body Mass Index 37.7 Const General: cooperative and no acute distress Orientation/consciousness: patient oriented x3 Resp Effort & Inspection: normal respiratory effort and able to speak in complete sentences Neuro Other: Left hemifascial spasm- improved General: patient oriented x3 Cranial nerves: Yes CN's II-XII intact bilaterally Cognition (Neuro): normal cognition Psych Appearance: grossly normal Mental Status: mental status grossly normal Speech and movement: Normal speech and movement present Affect: normal affect Attitude: cooperative Assessment & Plan Assessment & Plan (1) Migraine without aura: Code(s): G43.009 - Migraine without aura, not intractable, without status migrainosus Category: Medical (2) Hemifacial spasm of left side of face: Code(s): G51.32 - Clonic hemifacial spasm, left Category: Medical (3) Cerebral palsy: Code(s): G80.9 - Cerebral palsy, unspecified Category: Medical Plan Reviewed brain MRA- no evidence of intracranial aneurysm. Reviewed stress management strategies r/t caring for her - prioritizing tasks, taking even a few minutes a day to do something she enjoys, physical activity as tolerated. ? For Migraine: Riboflavin and Magnesium. Sumatriptan 50-100mg prn. Naproxen prn. ? For left hemifascial spasm- Pt advised to trial a low profile mouth guard to minimize risk for biting the sides of her tongue. Continue Botox as scheduled, as pt is having good clinical effect from use. ? f/u in 6 months or sooner prn. Medications: Refilled sumatriptan succinate (0.5 - 1 x 100 mg) 50 - 100 mg orally at onset of headache, may repeat in 2 hrs PRN; max 2 tabs per day or 4 tabs/week (may take with Ibuprofen) 30 days 12 tabs 6RF migraine headache riboflavin (vitamin B2) qam 400 mg PO DAILY 30 days 30 tabs 6RF magnesium oxide 400 mg PO DAILY 30 days 30 tabs 6RF Coding Level of Care Code Est Pt Level 4 (72988) Diagnoses Migraine without aura G43.009 Hemifacial spasm of left side of face G51.32 Cerebral palsy G80.9
[2023-08-25 09:18] VITALS: BP 124/80; PULSE 85; O2SAT 97; BMI 37.7
== END 2023-08-25 10:05 | disposition home or self-care (01) ==
PROVIDERS: PCP Internal Medicine; Visit Provider Nurse Practitioner Family
DX: G43.009 Migraine without aura, not intractable, without status migrainosus (principal); G51.32 Clonic hemifacial spasm, left; G80.9 Cerebral palsy, unspecified
CPT/HCPCS: 99024

== ENCOUNTER → 2023-08-25 09:06 | Outpatient (BNVA) | payer MEDICAID, SELFPAY | PROVIDERS: PCP Internal Medicine; Visit Provider Nurse Practitioner Family | DX: G51.32 Clonic hemifacial spasm, left (principal); G43.009 Migraine without aura, not intractable, without status migrainosus; G80.9 Cerebral palsy, unspecified | CPT/HCPCS: 99212 ==

== ENCOUNTER 2023-10-10 09:38 | Outpatient (REF) | payer MEDICAID, SELFPAY ==
[2023-10-10 09:47] LABS: MANUAL DIFF FLAG NO
[2023-10-10 10:09] LABS: Basophils Percent Auto 0.4 % (0-2); Eosinophils Absolute Auto 0.3 X10*3/uL (0.0-0.4); Eosinophils Percent Auto 5.7 % (0-4); Hematocrit 37.3 % (37.0-47.0); Hemoglobin 12.4 g/dl (12.0-16.0); Imm Gran Abs Auto 0.07 X10*3/uL (0.00-0.03); Imm Gran Pct Auto 1.3 % (0.0-0.4); Lymphocytes Absolute Auto 1.1 X10*3/uL (1.2-4.9); Lymphocytes Percent Auto 20.2 % (20-40); Mean Corpuscular HGB Conc 33.2 g/dl (31.0-35.0); Mean Corpuscular Hemoglobin 31.2 pg (27.0-33.0); Mean Corpuscular Volume 93.7 fL (80.0-98.0); Mean Platelet Volume 9.2 fL (9.4-12.3); Monocytes Absolute Auto 0.1 X10*3/uL (0.1-1.2); Monocytes Percent Auto 2.5 % (2-11); Neutrophils Absolute Auto 3.9 x10*3/uL (2.0-8.3); Neutrophils Percent Auto 69.9 % (45-73); Platelet Count 343 X10*3/uL (160-400); Red Blood Count 3.98 X10*6/uL (4.20-5.50); Red Cell Distribution Width 13.2 % (11.0-16.0); White Blood Count 5.6 X10*3/uL (4.8-10.8)
[2023-10-10 10:50] LABS: Alanine Aminotransferase 11 U/L (0-31); Albumin Level 3.3 g/dL (3.5-5.0); Alkaline Phosphatase 47 U/L (39-117); Anion Gap 11 (12-20); Aspartate Amino Transferase 12 U/L (5-31); Bilirubin Total 0.3 mg/dL (0.0-1.0); Blood Urea Nitrogen 25 mg/dL (9-16); Calcium 8.6 mg/dL (8.4-10.2); Carbon Dioxide 26 mmol/L (22-29); Chloride 108 mmol/L (96-108); Estimated Glomerular Filt Rate > 60; Glucose Random 150 mg/dL (60-115); Potassium 4.2 mmol/L (3.3-5.1); Sodium 141 mmol/L (135-145); Total Protein 6.4 g/dL (6.5-8.0)
== END 2023-10-10 09:39 | disposition home or self-care (01) ==
LOC: HO.LAB 09:38
PROVIDERS: PCP Internal Medicine; Visit Provider Nurse Practitioner
DX: M79.89 Other specified soft tissue disorders (principal); R10.9 Unspecified abdominal pain
CPT/HCPCS: 36415; 80053; 85025

== ENCOUNTER 2023-10-13 14:45 | Outpatient (AMB) | payer MEDICAID, SELFPAY ==
--- NOTE | 2023-10-13 15:00 | MHC.OFFVIS ---
Vital Signs 10/13/23 15:03 Height 5 ft 2 in Weight 214 lb BMI 39.1 BP 131/57 L Blood Pressure Location Rt brachial Position Sitting Pulse 89 Intake Visit Reasons: 8 week follow up R/S from 08/30 Intake Note: Scarlett presents to in office visit today in follow up of labs. CC: Patient states that she has been vomiting d/t her sugars . She reports that she was at [facility] last month d/t her blood sugars. She also states that she has her tongue whitish for about 2 months. 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 Accompanied by: Self / Same As Patient Allergies acetaminophen [Percocet] Allergy (Unknown, Verified 10/13/23 15:22) Unknown duloxetine [From CYMBALTA] Allergy (Unknown, Verified 10/13/23 15:22) UNKNOWN pregabalin [From LYRICA] Allergy (Unknown, Verified 10/13/23 15:22) UNKNOWN meperidine [From DEMEROL] Adverse Reaction (Intermediate, Verified 10/13/23 15:22) N/V oxycodone [From Percocet] Adverse Reaction (Verified 10/13/23 15:22) itching HPI HPI 8 week follow up R/S from 08/30: Details: Assessment & Plan (1) Chronic idiopathic constipation: Code(s): K59.04 - Chronic idiopathic constipation (2) GERD (gastroesophageal reflux disease): Code(s): K21.9 - Gastro-esophageal reflux disease without esophagitis (3) Dysphagia: Comment: food and liquid stickng med sternal Code(s): R13.10 - Dysphagia, unspecified (4) Abdominal pain: Code(s): R10.9 - Unspecified abdominal pain Plan [place] She tried to take the Sutab but could not r/t N/V/D, she also did not do well with liquid preps so I think Cologuard woud be better. She is tearful today because her was diagnosed with cancer of the pancreas recently and he is not operative, but will be getting chemotherapy and radiation therapy. But he has difficulty with this venous access and he ahs not been able to start yet. This is very hard on her. Because of the difficulties dx'ing her husbands illness and her inability to get a colonoscopy she is very worried about her own health. At this point, I will get a CT of the abd and pelvis and reschedule for an EGD only since this does not require prep. She continues on her pantoprazole 40 mg in the morning and famotidine 40 mg at night along with her dicyclomine 10 mg 3 times a day as needed. Return office visit in 8 weeks Orders: Orders CT abdomen pelvis w IV con Today R10.9 - Unspecified abdominal pain EGD with Layne - GI Use Only Today R13.10 - Dysphagia, unspecified Comprehensive Met. Panel Today R10.9 - Unspecified abdominal pain Complete Blood Count Auto Diff Today R10.9 - Unspecified abdominal pain Medications: Refilled famotidine 40 mg PO BID 180 tabs 2RF K27.9 - Peptic ulcer, site unspecified, unspecified as acute or chronic, without hemorrhage or perforation dicyclomine 10 mg PO TID 90 caps 3RF K22.4 - Dyskinesia of esophagus pantoprazole (Protonix) 40 mg PO DAILY 30 tabs 11RF 30 days K27.9 - Peptic ulcer, site unspecified, unspecified as acute or chronic, without hemorrhage or perforation Discontinued sod sulf-pot chloride-mag sulf 1.479-0.188- 0.225 gram (Sutab) Discontinued Reason: Doctor's Order PO PER PKG DIR 24 tabs 0RF * Laboratory Tests 10/10/23 09:45 WBC 5.6 Hgb 12.4 Hct 37.3 Plt Count 343 Estimated GFR > 60 Total Bilirubin 0.3 AST 12 ALT [address] ABDOMEN AND PELVIS re ordered pt was confused about drinking contrast EGD BIOPSY TODAY'S VISIT [place] #[place] Live She says she was seen at [facility] and had N/V because of my sugars. She has a new dx of diabetes and for now they are trying diet control. She is having severe GERD, abd pain and nausea and vomiting. She also has a very sore and red tongue - this may be r/t the high sugars, prednisone therapy and roberto. Will treat with diflucan 100mg for 7 days. She feels that she has pain because she ran out of her bentyl. She continues on pantoprazole qam and famotidine qhs. Will re order the EGD and the CT - she was confused about not having to drink anything thinking this was similar to the colonoscopy prep - I explain the difference and she is willing to drink the contrast and wants the CT. The EGD she was never contacted to schedule. She wants to know if I should go on diabetes medications I explain that I would not manage this but she wants my opinion. I will get a HBa1c to give her an educated answer. I want to get the records from [facility] as bryanna says she was very sick and had to be waked to the bathroom. She is concerned about some sores on her legs and a blotchy pattern along with heel pain. 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 She is not a smoker. The sores could also be due to poorly controlled blood sugars but I am uncertain since I have not see any the labs connected with her recent illness. The heels are cracked in peeling which is common with diabetics but I am uncertain if there is some other underlying problem what to heel spur or even plantar fasciitis. She says that she throughout the Cologuard because she tried to collect the stool sample and got some urine in the bucket. I explained that that is actually okay and does not validate the test. Will try to we send this since she can not tolerate colonoscopy related to vomiting and severe reactions to any of the preps including the pill prep. She denies any prior problems with anesthesia or sedation. She denies any cardiac or respiratory problems. No ID problems. There is no known FHX of esophageal or stomach cancer. Return office visit in 6 weeks to make sure she has responded when she has the dicyclomine on board and to evaluate the records and testing. [facility] Medical History (Updated 10/13/23 @ 16:24 by JOCELYN Leung) Abdominal pain Pelvic pain in female Bilateral shoulder pain Vulvar irritation WISE (nonalcoholic steatohepatitis) Elevated antinuclear antibody (FELI) level FELI positive Encounter to discuss test results Hemifacial spasm of left side of face Peptic ulcer disease Esophageal spasm Family history of cerebral aneurysm Fibromyalgia Irritable bowel syndrome with both constipation and diarrhea History of meningitis Surgical History (Updated 10/13/23 @ 15:56 by JOCELYN Leung) Keloid of skin H/O neck surgery Hx of section Hx of hysterectomy Hx of breast lump removal (~2019) History of bladder suspension procedure H/O bilateral breast reduction surgery Family History Mother Aneurysm Endometrial cancer Father No problems noted. Social History Alcohol intake: never Patient Tobacco Use Status: Never used Tobacco Sexual orientation: Straight/Heterosexual Gender identity: Female Review of Systems Const Denies fatigue, Denies fever(s), Reports malaise, Denies night sweats, Denies poor appetite, Reports weakness and Denies weight loss ENT Reports Normal hearing present, Denies dental pain, Denies dysphagia, Denies hearing loss, Denies mouth pain, Denies odynophagia, Denies throat swelling, Denies tongue swelling and Reports other (Dentition adequate) Card Reports no additional complaints Resp Reports no additional complaints GI Details: Reports abdominal pain, Denies melena, Reports bloating, Denies hematochezia, Denies constipation, Denies GI cramping, Denies dysphagia, Denies excessive flatus, Denies early satiety, Reports heartburn, Denies diarrhea, Reports nausea, Denies odynophagia, Reports vomiting and Denies hematemesis Musc Reports back pain, Reports myalgias and Reports arthralgias Skin/Breast Denies pruritus, Denies lesions, Denies rash and Denies jaundice Neuro Reports Normal hearing present, Denies Abnormal speech present and Reports weakness Endo Denies fatigue Aller/Immun Denies throat swelling and Denies tongue swelling Physical Exam Vital Signs: Last Vital Signs Pulse 89 10/13/23 15:03 BP 131/57 L 10/13/23 15:03 BMI result Body Mass Index 39.1 Const General: cooperative, no acute distress, well developed and well groomed Nutritional Appearance: well nourished and obese morbidly obese Orientation/consciousness: oriented to person, oriented to place and oriented to time Limitations: language barrier HEENT Head: Yes normocephalic and Yes atraumatic Eyes General: appearance normal, both eyes and all related structures Pupils: Equal, round and reactive pupils present Neck Neck: Yes normal visual inspection and Yes no lymphadenopathy Thyroid: Thyroid normal Resp Effort & Inspection: normal respiratory effort and able to speak in complete sentences Auscultation: clear to auscultation bilaterally Cardio Rate: regular rate Rhythm: regular rhythm Heart sounds: Normal, physiologic split S2 sound present Peripheral pulses: radial pulses present and posterior tibial pulses present GI Inspection: No distended, Yes Abdominal panniculus present and Yes obesity Palpation (GI): Soft to palpation, Tenderness to palpation present (GI) periumbilically, no guarding, not rigid and No hepatosplenomegaly present Percussion: Yes normal to percussion Auscultation: normal bowel sounds Rectal Exam - Female: deferred Skin General skin exam: no rashes or lesions noted, turgor normal, skin not dry, no jaundice, No spider nevi and no striae Rashes: no rashes Nails: normal Neuro General: oriented to person, oriented to place and oriented to time Cranial nerves: Yes Equal, round and reactive pupils present and Yes Normal hearing present Speech: No Abnormal speech present Extrem General: Yes normal to inspection, No clubbing, No cyanosis and No edema Psych Appearance: grossly normal and well kempt Mental Status: mental status grossly normal Speech and movement: Normal speech and movement present Affect: normal affect Attitude: cooperative Thought process: Normal thought process present and not confabulating Thought content: Normal thought content present Insight: Limited insight present (Psych) Judgement: Limited judgement present (Psych) Results Reviewed Results Reviewed: Laboratory Tests 10/10/23 09:45 WBC 5.6 Hgb 12.4 Hct 37.3 Plt Count 343 Estimated GFR > 60 Total Bilirubin 0.3 AST 12 ALT 11 Alkaline Phosphatase 47 Assessment & Plan Assessment & Plan (1) GERD (gastroesophageal reflux disease): Code(s): K21.9 - Gastro-esophageal reflux disease without esophagitis Category: Medical (2) Abdominal bloating: Code(s): R14.0 - Abdominal distension (gaseous) Category: Medical (3) Pre-op examination: Code(s): Z01.818 - Encounter for other preprocedural examination Category: Medical (4) Nausea and vomiting: Code(s): R11.2 - Nausea with vomiting, unspecified Category: Medical (5) Chronic idiopathic constipation: Code(s): K59.04 - Chronic idiopathic constipation Category: Medical (6) Dysphagia: Comment: food and liquid stickng med sternal Code(s): R13.10 - Dysphagia, unspecified Category: Medical (7) Abdominal pain: Code(s): R10.9 - Unspecified abdominal pain Category: Medical (8) Candidiasis of mouth and esophagus: Code(s): B37.81 - Candidal esophagitis; B37.0 - Candidal stomatitis Category: Medical (9) Diabetes: Code(s): E11.9 - Type 2 diabetes mellitus without complications Category: Medical Plan [place] #[place]on Live She says she was seen at [facility] and had N/V because of my sugars. She has a new dx of diabetes and for now they are trying diet control. She is having severe GERD, abd pain and nausea and vomiting. She also has a very sore and red tongue - this may be r/t the high sugars, prednisone therapy and roberto. Will treat with diflucan 100mg for 7 days. She feels that she has pain because she ran out of her bentyl. She continues on pantoprazole qam and famotidine qhs. Will re order the EGD and the CT - she was confused about not having to drink anything thinking this was similar to the colonoscopy prep - I explain the difference and she is willing to drink the contrast and wants the CT. The EGD she was never contacted to schedule. She wants to know if I should go on diabetes medications I explain that I would not manage this but she wants my opinion. I will get a HBa1c to give her an educated answer. I want to get the records from [facility] as bryanna says she was very sick and had to be waked to the bathroom. She is concerned about some sores on her legs and a blotchy pattern along with heel pain. 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 She is not a smoker. The sores could also be due to poorly controlled blood sugars but I am uncertain since I have not see any the labs connected with her recent illness. The heels are cracked in peeling which is common with diabetics but I am uncertain if there is some other underlying problem what to heel spur or even plantar fasciitis. She says that she throughout the Cologuard because she tried to collect the stool sample and got some urine in the bucket. I explained that that is actually okay and does not validate the test. Will try to we send this since she can not tolerate colonoscopy related to vomiting and severe reactions to any of the preps including the pill prep. She denies any prior problems with anesthesia or sedation. She denies any cardiac or respiratory problems. No ID problems. There is no known FHX of esophageal or stomach cancer. Return office visit in 6 weeks to make sure she has responded when she has the dicyclomine on board and to evaluate the records and testing. Orders: Orders CT abdomen pelvis w IV con Today R10.9 - Unspecified abdominal pain, R11.2 - Nausea with vomiting, unspecified EGD - GI Use Only Today R10.9 - Unspecified abdominal pain, R11.2 - Nausea with vomiting, unspecified Hemoglobin A1c Today E11.9 - Type 2 diabetes mellitus without complications Medications: New fluconazole (Diflucan) 100 mg PO DAILY 7 tabs 0RF 7 days B37.0 - Candidal stomatitis, B37.81 - Candidal esophagitis Refilled dicyclomine 10 mg PO TID 90 caps 3RF K22.4 - Dyskinesia of esophagus Coding Level of Care Code Est Pt Level 4 (99291) Diagnoses GERD (gastroesophageal reflux disease) K21.9 Abdominal bloating R14.0 Pre-op examination Z01.818 Nausea and vomiting R11.2 Chronic idiopathic constipation K59.04 Dysphagia R13.10 Abdominal pain R10.9 Candidiasis of mouth and esophagus B37.81; B37.0 Diabetes E11.9 Time Spent (min) 37
[2023-10-13 15:03] VITALS: BP 131/57; PULSE 89; BMI 39.1
== END 2023-10-13 16:31 | disposition home or self-care (01) ==
PROVIDERS: PCP Internal Medicine; Visit Provider Nurse Practitioner
DX: K21.9 Gastro-esophageal reflux disease without esophagitis (principal); R14.0 Abdominal distension (gaseous); Z01.818 Encounter for other preprocedural examination; R11.2 Nausea with vomiting, unspecified; K59.04 Chronic idiopathic constipation; R13.10 Dysphagia, unspecified; R10.9 Unspecified abdominal pain; B37.81 Candidal esophagitis; B37.0 Candidal stomatitis; E11.9 Type 2 diabetes mellitus without complications
CPT/HCPCS: 99214

== ENCOUNTER → 2023-10-13 14:45 | Outpatient (BNVA) | payer MEDICAID, SELFPAY | PROVIDERS: PCP Internal Medicine; Visit Provider Nurse Practitioner | DX: Z01.818 Encounter for other preprocedural examination (principal); K21.9 Gastro-esophageal reflux disease without esophagitis; K59.04 Chronic idiopathic constipation; R14.0 Abdominal distension (gaseous); R11.2 Nausea with vomiting, unspecified; R13.10 Dysphagia, unspecified; R10.9 Unspecified abdominal pain; E11.9 Type 2 diabetes mellitus without complications; B37.81 Candidal esophagitis; B37.0 Candidal stomatitis | CPT/HCPCS: 99212 ==

== ENCOUNTER 2023-10-21 13:05 | Outpatient (REF) | payer MEDICAID, SELFPAY ==
--- NOTE | ~2023-10-21 | XR_ITS ---
EXAMINATION: XR HIP, LEFT CLINICAL INFORMATION: Left hip pain. COMPARISON: None available. TECHNIQUE: AP and frog-leg lateral views of the left hip. FINDINGS: No fracture. Alignment is anatomic. Hip joint space is maintained. Mild osteoarthritis of the pubic symphysis. Soft tissues are unremarkable. XR/XR hip LT min 2V IMPRESSION: 1. No acute fracture or malalignment. 2. Mild osteoarthritis of the pubic symphysis. Electronically signed by: Lior Guido MD 11/13/2023 10:11 PM EDT
--- NOTE | ~2023-10-21 | XR_ITS ---
EXAMINATION: XR LUMBOSACRAL SPINE CLINICAL INFORMATION: Left-sided lumbar back pain. Trouble walking. COMPARISON: None available. TECHNIQUE: AP and lateral views of the lumbar spine and lateral view of the lumbosacral junction. 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 Vertebral body heights are normal. Minimal intervertebral disc height at L5-S1 is likely related to the transitional anatomy. No significant degenerative disc disease. Mild facet arthropathy at L4-L5. Soft tissues are unremarkable. No fracture or malalignment. XR/XR lumbar spine 2-3V IMPRESSION: 1. Mild facet arthropathy at L4-L5. 2. 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 Electronically signed by: Lior Guido MD 11/13/2023 10:11 PM EDT
== END 2023-10-21 13:06 | disposition home or self-care (01) ==
LOC: HO.XRAY 13:05
PROVIDERS: Visit Provider Family Medicine
DX: M25.552 Pain in left hip (principal); M54.50 Low back pain, unspecified
CPT/HCPCS: 72100; 73502

== ENCOUNTER → 2023-11-16 09:02 | Outpatient (REF) | payer MEDICAID, SELFPAY ==
--- NOTE | 2023-11-16 | CA_ITS ---
Acquisition Time: 2023-11-16 09:52:22 Total Exercise Time: 00:00:08 Test Indications: CP Medications: SEE H Protocol: NEHEMIAH Max HR: 100 BPM 60% of Pred: 165 BPM Max BP: 114/078 mmHG Max Work Load: 1.1 METS Exercise stress test exercise 8 sec of Nehemiah protocol. Terminated as patient paniced and said it was going to fast/ Patient reported dizziness. which resolved. Patient feels well during recovery. Recomennded pharnmacological stress test with nuclear imaging. Patient is not claustiphobic Referred By: Saskia Rosas Overread By: Abbey Herrera
--- NOTE | 2023-11-16 09:15 | CA_ITS ---
Transthoracic Echocardiogram Patient (Last, First, Middle): Scarlett Liriano, Gender: Female Date of : 1970 Age: 53 Procedure Date: 11/16/2023 Procedure Type: Transthoracic Echocardiogram Location: OP Height: 154.94 cm Weight: 89.81 kg BSA: 1.88 m2 Heart Rate: bpm BP: 128 / 70 mmHg Clinical Training Specialist: MANISHA Referring MD: Saskia Rosas MD Mechanical Engineering Manager: Mukesh Arango MD Symptoms: CP Study Quality: Fair ECG Rhythm: Sinus Conclusions: - 1. Normal LV ejection fraction of 60 65% 2. Poorly visualized cardiac valves with normal cardiac valvular Doppler 3. Normal RV systolic pressure 4. Trivial pericardial effusion Findings Left Ventricle Normal left ventricular size, thickness, and systolic function. The visually estimated ejection fraction is between 60-65%. Spectral Doppler is indicative of a normal filling pattern. Right Ventricle Normal right ventricular cavity size and systolic function. Atria The left atrium is normal in size. Interatrial shunt cannot be excluded. The right atrium was not well visualized. Aortic Valve The aortic valve was not well visualized. There is no aortic valve regurgitation. Mitral Valve The mitral valve was not well visualized. There is no mitral valve regurgitation. There is no mitral valve stenosis. Pulmonic Valve The pulmonic valve was not well visualized. Tricuspid Valve Likely normal tricuspid valve structure and function. There is trace tricuspid valve regurgitation. The right ventricular systolic pressure is normal. The right ventricular systolic pressure is 18 mmHg. Normal right atrial pressure. There is no evidence of pulmonary hypertension. Great Vessels The pulmonary artery was not well visualized. There is no dilatation of the ascending aorta measuring 2.80 cm. Venous The inferior vena cava is normal in size and collapses greater than 50% with inspiration. Pericardium/Pleural There is a trivial circumferential pericardial effusion. Prior Study Comparison No prior study available for comparison. Measurements 2D Linear Measurements IVSd: 1.00 0.6-0.9/0.6-1.0 cm LVIDd: 4.01 3.9-5.3/4.2-5.9 cm LVIDd Index: 2.13 2.4-3.2/2.2-3.1 cm/m2 LVIDs: 2.59 2.0-3.6 cm LVPWd: 1.04 0.7-1.1 cm LA Diam: 3.30 2.7-3.8/3.0-4.0 cm LAIDs Index: 1.76 1.5-2.3 cm/m2 LV Mass: 163.24 67-162/88-224 g LV Mass Index: 86.83 43-95/49-115 g/m2 LVOT Diam: 1.90 3.0+(-)1.3 cm 2D Systolic Function EF 4C: 64.30 >55% EF 2C: 58.30 >55% EF BiP: 63.40 >55% Mitral Valve MV Pk E: 0.96 MV PK A: 0.95 MV Decel Time: 285.00 E/A: 1.00 E'Lateral: 8.59 E'Medial: 7.62 E/E' Med: 12.60 E/E' Lat: 11.10 PHT: 83.00 MVA PHT: 2.65 Decel [place]: 3.36 Aortic Valve AoV Pk Abdirahman: 1.63 AoV Mn Abdirahman: 1.11 AoV VTI: 0.37 AoV Pk Grad: 11.00 Aov Mn Grad: 6.00 KIRSTIE Cont.VTI: 2.06 LVOT LVOT Pk Abdirahman: 1.23 LVOT Mn Abdirahman: 0.77 LVOT VTI: 0.27 LVOT Pk Grad: 6.00 LVOT Mn Grad: 3.00 LVOT Diam: 1.90 LVOT Area: 2.84 Diastolic Function MV Pk E: 0.96 MV Pk A: 0.95 E/A: 1.00 E'Medial: 7.62 E/E' Med: 12.60 E' Laterial: 8.59 E/E' Lat: 11.10 Right Ventricle TAPSE (mm): 21.70 TVS' Abdirahman: 12.60 Tricuspid Valve TR Pk Abdirahman: 1.93 TR Pk Grad: 15.00 RA Press: 3.00 RVSP: 18.00 Great Vessels Aorta Sinus of Valsalva: 2.69 2.0-3.[address] [place]: 2.07 1.7-3.4 cm Ao Asc: 2.80 2.1-3.4 cm Updated in Other Vendor System with Status of Final Mukesh Arango MD electronically signed on 11/17/2023 2:55:02 PM with status of Final
== END ==
LOC: HO.CARD 09:02
PROVIDERS: PCP Internal Medicine; Visit Provider Family Medicine
DX: R07.9 Chest pain, unspecified (principal); M79.89 Other specified soft tissue disorders
CPT/HCPCS: 93017; 93306

== ENCOUNTER → 2023-11-16 09:52 | Outpatient (BNV) | payer MEDICAID, SELFPAY | PROVIDERS: PCP Internal Medicine; Visit Provider Nurse Practitioner | DX: R07.9 Chest pain, unspecified (principal); I31.39 Other pericardial effusion (noninflammatory) | CPT/HCPCS: 93016; 93018; 93320; 93325; 93350 ==

== ENCOUNTER 2024-01-21 08:29 | Outpatient (REF) | payer MEDICAID, SELFPAY ==
--- NOTE | ~2024-01-21 | CT_ITS ---
EXAMINATION: CT ABDOMEN AND PELVIS WITH CONTRAST CLINICAL INFORMATION: Nausea and vomiting COMPARISON: Abdominal ultrasound 07/26/2020 TECHNIQUE: Multidetector volumetric imaging was performed from the superior aspect of the liver through the pubic symphysis with intravenous contrast. A total of 85 mL of Omnipaque 350 was utilized for the study. Sagittal and coronal reformatted images were obtained on the technologist's workstation. This CT examination was performed using dose optimization techniques as appropriate, variously including the following: *Automated exposure control *Adjustment of mA and/or kV according to patient size (this includes techniques or standardized protocols for targeted exams where dose is matched to indication/reason for exam; i.e. extremities or head) *Use of iterative reconstruction technique DLP: 715 mGy-cm FINDINGS: LUNG BASES: The visualized lung bases are unremarkable. LIVER, GALLBLADDER, AND BILIARY TREE: The liver is normal in size, shape, and attenuation. No focal hepatic lesion or biliary ductal dilatation is present. The gallbladder is unremarkable with no evidence of radiopaque gallstones, gallbladder wall thickening, or obvious pericholecystic inflammatory changes. PANCREAS: Unremarkable. SPLEEN: Unremarkable. ADRENAL GLANDS: Unremarkable. KIDNEYS AND URETERS: The kidneys are normal in size, shape, and attenuation. No hydronephrosis, hydroureter, or calculi seen. No perinephric stranding. BLADDER: The bladder is empty with a symmetrically thickened wall GASTROINTESTINAL TRACT: A few sigmoid diverticula are seen without diverticulitis The small and large bowel are unremarkable. The appendix is unremarkable. ABDOMINAL WALL: Tiny periumbilical hernia seen containing only fat. There is mild diastases of the rectus muscles. LYMPH NODES: No retroperitoneal lymphadenopathy. VASCULAR: Unremarkable. PELVIC VISCERA: The uterus is not seen. An abnormal adnexal mass is not detected. No free intraperitoneal fluid is present. A normal left ovary is seen with a benign 1 cm cyst; a right ovary is not identified. OSSEOUS STRUCTURES: Unremarkable. CT/CT abdomen pelvis w IV con IMPRESSION: 1. A cause for the patient's nausea and vomiting has not been found. 2. Incidental note made of a few sigmoid diverticula without diverticulitis, hysterectomy and benign 1 cm left ovarian cyst. Fleischner guidelines were followed. Electronically signed by: Edward Ramon MD 02/10/2024 05:28 PM EST RP
[2024-01-21] MEDS: iohexoL 350 MG/ML 100 ML INFUS..BTL 85 ML IV (11:08)
[2024-01-21 16:47] LABS: Creatinine POC 0.8 mg/dL (0.5-1.4); GFR POC > 60
== END 2024-01-21 08:30 | disposition home or self-care (01) ==
LOC: HO.CT 08:29
PROVIDERS: PCP Family Medicine; Visit Provider Nurse Practitioner
DX: R11.2 Nausea with vomiting, unspecified (principal); R10.9 Unspecified abdominal pain
CPT/HCPCS: 74177; 82565; Q9967

== ENCOUNTER 2024-02-09 09:02 | Day surgery (SDC) | payer MEDICAID, SELFPAY ==
[2024-02-05 15:02] VITALS: BMI 39.1
--- NOTE | 2024-02-08 09:04 | HO.ANESPROP2 ---
Documented by User: Karishma Diggs NP 02/08/24 09:07 HPI - Anesthesia Eval Consult details Narrative: 53yo F for Upper Endoscopy PMFSH Active Problems Active Problems: All Active Problems Diabetes (Acute) Candidiasis of mouth and esophagus (Acute) Abdominal pain (Acute) Nausea and vomiting (Acute) Acromioclavicular joint arthritis (Acute) Pre-op examination (Acute) Muscle spasms of neck (Acute) Cervical spondylosis (Acute) Vertigo (Acute) Migraine without aura (Acute) Dysphagia (Acute) Chronic idiopathic constipation (Acute) Fibromyalgia (Acute) Cerebral palsy (Acute) Pablo's thyroiditis (Acute) Asthma (Acute) Colon cancer screening (Acute) Abdominal bloating (Acute) GERD (gastroesophageal reflux disease) (Acute) Past Medical History Medical History (Updated 10/13/23 @ 16:24 by JOCELYN Leung) Abdominal pain Pelvic pain in female Bilateral shoulder pain Vulvar irritation WISE (nonalcoholic steatohepatitis) Elevated antinuclear antibody (FELI) level FELI positive Encounter to discuss test results Hemifacial spasm of left side of face Peptic ulcer disease Esophageal spasm Family history of cerebral aneurysm Fibromyalgia Irritable bowel syndrome with both constipation and diarrhea History of meningitis Family History Family History Mother Aneurysm Endometrial cancer Father No problems noted. Family history of problems with anesthesia: No Surgical History Surgical History (Updated 10/13/23 @ 15:56 by JOCELYN Leung) Keloid of skin H/O neck surgery Hx of section Hx of hysterectomy Hx of breast lump removal (~2019) History of bladder suspension procedure H/O bilateral breast reduction surgery History of Problems with Anesthesia: No Social History Social History Alcohol intake: never Patient Tobacco Use Status: Never used Tobacco Have you been hit, kicked, punched, or otherwise hurt by someone within the past year? If so, by whom?: No Are you DNR?: No Advance Directives: No Advance Directives Information Provided: Yes Recently lost weight without trying: No Nutrition Risks: No Nutritional Risk Sexual orientation: Straight/Heterosexual Gender identity: Female Meds Allergies Allergy/AdvReac Type Severity Reaction Status Date / Time duloxetine [From CYMBALTA] Allergy Unknown UNKNOWN Verified 10/13/23 15:22 pregabalin [From LYRICA] Allergy Unknown UNKNOWN Verified 10/13/23 15:22 meperidine [From DEMEROL] AdvReac Intermediate N/V Verified 10/13/23 15:22 oxycodone [From Percocet] AdvReac Intermediate itching Verified 02/05/24 15:09 Home Medications ?Medication ?Instructions ?Recorded ?Confirmed ?Last Taken ?Type albuterol sulfate 90 mcg/actuation 2 puff inhalation Q6H PRN 12/27/19 02/05/24 Unknown History aerosol inhaler Shortness Of Breath Or Wheezing fluticasone propionate 50 1 inh inhalation BID 12/27/19 02/05/24 Unknown History mcg/actuation blister powder for inhalation loratadine 10 mg tablet 10 mg PO DAILY 12/27/19 02/05/24 Unknown History montelukast 10 mg tablet 10 mg PO BEDTIME 12/27/19 02/05/24 Unknown History (Singulair) fluticasone propionate 230 1 inh inhalation BID 08/05/22 02/05/24 Unknown History mcg-salmeterol 21 mcg/actuation HFA inhaler (Advair HFA) cholecalciferol (vitamin D3) 25 25 mcg PO DAILY 09/19/22 02/05/24 Unknown History mcg (1,000 unit) capsule lorazepam 2 mg tablet 2 mg PO BEDTIME PRN Anxiety 10/13/23 02/05/24 Unknown History losartan 25 mg tablet 25 mg PO QAM 10/13/23 02/05/24 Unknown History sertraline 50 mg tablet 50 mg PO BEDTIME depressive 10/13/23 02/05/24 Unknown History disorder prednisone 20 mg tablet 20 mg PO DAILY 02/09/24 02/09/24 02/09/24 History Exam Height,Weight and Vital Signs: Height 5 ft 2 in Weight 97.069 kg Assessment and Plan Assessment Anesthesia Assessment: Chart Reviewed Final Anesthetic Review Family History of Problems with Anesthesia: No History of Problems with Anesthesia: No Documented by User: Ezequiel Villalta MD 02/09/24 09:52 [facility] Past Medical History Medical History (Updated 10/13/23 @ 16:24 by JOCELYN Leung) Abdominal pain Pelvic pain in female Bilateral shoulder pain Vulvar irritation WISE (nonalcoholic steatohepatitis) Elevated antinuclear antibody (FELI) level FELI positive Encounter to discuss test results Hemifacial spasm of left side of face Peptic ulcer disease Esophageal spasm Family history of cerebral aneurysm Fibromyalgia Irritable bowel syndrome with both constipation and diarrhea History of meningitis Family History Family History Mother Aneurysm Endometrial cancer Father No problems noted. Surgical History Surgical History (Updated 10/13/23 @ 15:56 by JOCELYN Leung) Keloid of skin H/O neck surgery Hx of section Hx of hysterectomy Hx of breast lump removal (~2019) History of bladder suspension procedure H/O bilateral breast reduction surgery Social History Social History Alcohol intake: never Patient Tobacco Use Status: Never used Tobacco Have you been hit, kicked, punched, or otherwise hurt by someone within the past year? If so, by whom?: No Are you DNR?: No Advance Directives: No Advance Directives Information Provided: Yes Recently lost weight without trying: No Nutrition Risks: No Nutritional Risk Sexual orientation: Straight/Heterosexual Gender identity: Female Meds Allergies Allergy/AdvReac Type Severity Reaction Status Date / Time duloxetine [From CYMBALTA] Allergy Unknown UNKNOWN Verified 10/13/23 15:22 pregabalin [From LYRICA] Allergy Unknown UNKNOWN Verified 10/13/23 15:22 meperidine [From DEMEROL] AdvReac Intermediate N/V Verified 10/13/23 15:22 oxycodone [From Percocet] AdvReac Intermediate itching Verified 02/05/24 15:09 Home Medications ?Medication ?Instructions ?Recorded ?Confirmed ?Last Taken ?Type albuterol sulfate 90 mcg/actuation 2 puff inhalation Q6H PRN 12/27/19 02/05/24 Unknown History aerosol inhaler Shortness Of Breath Or Wheezing fluticasone propionate 50 1 inh inhalation BID 12/27/19 02/05/24 Unknown History mcg/actuation blister powder for inhalation loratadine 10 mg tablet 10 mg PO DAILY 12/27/19 02/05/24 Unknown History montelukast 10 mg tablet 10 mg PO BEDTIME 12/27/19 02/05/24 Unknown History (Singulair) fluticasone propionate 230 1 inh inhalation BID 08/05/22 02/05/24 Unknown History mcg-salmeterol 21 mcg/actuation HFA inhaler (Advair HFA) cholecalciferol (vitamin D3) 25 25 mcg PO DAILY 09/19/22 02/05/24 Unknown History mcg (1,000 unit) capsule lorazepam 2 mg tablet 2 mg PO BEDTIME PRN Anxiety 10/13/23 02/05/24 Unknown History losartan 25 mg tablet 25 mg PO QAM 10/13/23 02/05/24 Unknown History sertraline 50 mg tablet 50 mg PO BEDTIME depressive 10/13/23 02/05/24 Unknown History disorder prednisone 20 mg tablet 20 mg PO DAILY 02/09/24 02/09/24 02/09/24 History Exam Airway Mallampati Class: III TM Dist: >3cm Neck ROM: Full Assessment and Plan Assessment Anesthesia Assessment: Anesthesia Plan Discussed Final Anesthetic Review NPO: Yes ASA Class: III Final Preanesthetic Review: No Changes in Pt Med Stat, Meds/Allgs Chart Reviewed, Consent Obtained/Reviewed and Anes Risks/Benef Reviewed Patient Risk: Intermediate Procedure Risk: Low Anesthetic Plan Anesthetic Plan: TIVA Disposition: Standard PACU
[2024-02-09 09:07] VITALS: BP 125/90; PULSE 87; RESP 20; TEMP 36.6; O2SAT 96; BMI 40.1
[2024-02-09] MEDS: Lactated Ringers 1,000 ML 100 ML IVCONT (09:23)
--- NOTE | 2024-02-09 10:59 | MHC.SHP ---
Pre-Procedural Eval Section A - 24 Hr Update-Section A only Date of Service: 02/09/24 Section B - Complete if H&P > 30 days Chief Complaint: Nausea with vomiting, unspecified,dysphagia Relevant Family History (Specify if Yes): No Relevant Social History: None Present Medications: see Short Stay Collaborative assessment Medical History: Significant History ( Abdominal pain Pelvic pain in female Bilateral shoulder pain Vulvar irritation WISE (nonalcoholic steatohepatitis) Elevated antinuclear antibody (FELI) level FELI positive Encounter to discuss test results Hemifacial spasm of left side of face Peptic ulcer disease Esophageal spasm Family history of c) History of Previous Operations: Relevant previous surgery/procedure and date(s) (Keloid of skin H/O neck surgery Hx of section Hx of hysterectomy Hx of breast lump removal (~2019) History of bladder suspension procedure H/O bilateral breast reduction surgery) Allergies: Allergies Allergy/AdvReac Type Severity Reaction Status Date / Time duloxetine [From CYMBALTA] Allergy Unknown UNKNOWN Verified 10/13/23 15:22 pregabalin [From LYRICA] Allergy Unknown UNKNOWN Verified 10/13/23 15:22 meperidine [From DEMEROL] AdvReac Intermediate N/V Verified 10/13/23 15:22 oxycodone [From Percocet] AdvReac Intermediate itching Verified 02/05/24 15:09 Review of Systems Sugical H&P ROS: Negative: Constitution, Cardiovascular, Respiratory, Neurological, Psychiatric, Hem-Onc, Allergic/Immunologic, Gastrointestinal, Genitourinary, Musculoskeletal, Integumentary, Endocrine and Eyes/Ears/Nose/Throat Exam Surgical H&P Exam: Normal: HEENT, Normal: Heart, Normal: Lungs, Normal: Extremities, Normal: Abdomen, Normal: Skin and Normal: Neurological Plan Diagnosis/Plan: Unchanged I have reviewed the history and physical and performed a pertinent physical examination on my patient. No changes have occurred unless specified. Time Spent With Patient Time: Total time managing care of this patient today ____ minutes.
--- NOTE | 2024-02-09 11:30 | W.PM.OPN ---
Operative Note Operative Note Date of Service: 02/09/24 Narrative: Procedure Description: EGD Indication: [] Anesthesia: MAC FLEXIBLE TRANSORAL UPPER GASTROINTESTINAL ENDOSCOPY UPPER ENDOSCOPY Consent: Indications for the procedure and potential complications of bleeding, perforation, reaction to medications and missed diagnosis were discussed with the patient and informed consent was obtained. Instrument: pediatric colonoscope Monitoring: Vital signs and clinical assessment, continuous EKG monitoring, Pulse oximetry, Carbon Dioxide monitoring and blood pressure monitoring were done throughout the procedure. Procedure: The patient was placed in the left lateral decubitis position and pre-procedure medications were administered and a bite block was placed. The endoscope was inserted into the mouth and advanced under direct vision to the third part of duodenum. A careful inspection was made as the upper endoscope was withdrawn including a retroflexed examination of the proximal stomach; Findings and interventions are described below. Findings: Larynx:normal Esophagus: GE junction at 38 cm, diaphragm hiatus at 38 cm, mild esphagitis, balloon dilation of LES to 20 mm and 18 mm at UES Stomach: streaky erosive gastritis in pylorus and gastric ulcer near outlet, about 10 mm in length, stellate shaped . Biopsies were obtained. Grade 2 flap valve on retroflexed examination of the cardia. Duodenum: Normal bulb and descending duodenum, Intervention: Biopsies as noted above, balloon dilation Impression/Findings: erosive gastritis gastric ulcer mild esophagitis PLAN: change pantoprazole to esomeprazole 40 mg if h pylori pos then treat GERD precautions repeat EGD in 3-6 months to check for ulcer resolution
[2024-02-09 11:36] VITALS: BP 103/70; PULSE 96; RESP 16; TEMP 36.4; O2SAT 97
[2024-02-09 11:50] VITALS: BP 95/63; PULSE 95; RESP 16; O2SAT 95
[2024-02-09 12:06] VITALS: BP 109/74; PULSE 77; RESP 16; TEMP 36.4; O2SAT 96
== END 2024-02-09 12:46 | disposition home or self-care (01) ==
PROVIDERS: PCP Family Medicine; Visit Provider Internal Medicine Gastroenterology
PROC: 0DJ08ZZ Inspection of Upper Intestinal Tract, Via Natural or Artificial Opening Endoscopic (ICD-10-PCS; CPT 43235; principal; 2024-02-09 10:50)
DX: K25.9 Gastric ulcer, unspecified as acute or chronic, without hemorrhage or perforation (principal); K29.60 Other gastritis without bleeding; R13.10 Dysphagia, unspecified; K20.80 Other esophagitis without bleeding; K44.9 Diaphragmatic hernia without obstruction or gangrene; K22.4 Dyskinesia of esophagus; R76.0 Raised antibody titer; K75.81 Nonalcoholic steatohepatitis (NASH); Z79.899 Other long term (current) drug therapy; Z88.5 Allergy status to narcotic agent; Z88.8 Allergy status to other drugs, medicaments and biological substances
CPT/HCPCS: 43249; 43239; 88305; 88313; 88342; C1726; J1100; J1596; J2003; J2704

== ENCOUNTER → 2024-02-09 09:02 | Outpatient (BNV) | payer MEDICAID, SELFPAY | PROVIDERS: PCP Family Medicine; Visit Provider Internal Medicine Gastroenterology | DX: K29.80 Duodenitis without bleeding (principal); K20.90 Esophagitis, unspecified without bleeding; K25.9 Gastric ulcer, unspecified as acute or chronic, without hemorrhage or perforation | CPT/HCPCS: 43239; 43249 ==

== ENCOUNTER 2024-03-01 14:31 | Outpatient (AMB) | payer MEDICAID, SELFPAY ==
--- NOTE | 2024-03-01 14:32 | MHC.OFFVIS ---
Vital Signs 03/01/24 14:32 Height 5 ft 2 in Intake Visit Reasons: Botox Intake Note: Patient presents for botox injection Allergies duloxetine [From CYMBALTA] Allergy (Unknown, Verified 10/13/23 15:22) UNKNOWN pregabalin [From LYRICA] Allergy (Unknown, Verified 10/13/23 15:22) UNKNOWN meperidine [From DEMEROL] Adverse Reaction (Intermediate, Verified 10/13/23 15:22) N/V oxycodone [From Percocet] Adverse Reaction (Intermediate, Verified 02/05/24 15:09) itching Medication List - Last Reconciled 03/01/24 by Maryam Negro MD albuterol sulfate 90 mcg/actuation 2 puffs inhalation Q6H PRN amitriptyline 10 mg PO BEDTIME cholecalciferol (vitamin D3) 25 mcg PO DAILY dicyclomine 10 mg PO TID esomeprazole magnesium 40 mg PO DAILY famotidine 40 mg PO BID fluconazole (Diflucan) 100 mg PO DAILY 7 days fluticasone propion-salmeterol 230-21 mcg/actuation (Advair HFA) 1 inh inhalation BID fluticasone propionate 50 mcg/actuation 1 inh inhalation BID loratadine 10 mg PO DAILY lorazepam 2 mg PO BEDTIME PRN losartan 25 mg PO QAM magnesium oxide 400 mg PO DAILY 30 days montelukast (Singulair) 10 mg PO BEDTIME prednisone 20 mg PO DAILY riboflavin (vitamin B2) 400 mg PO DAILY 30 days sertraline 50 mg PO BEDTIME sumatriptan succinate 50 - 100 mg orally at onset of headache, may repeat in 2 hrs PRN; max 2 tabs per day or 4 tabs/week (may take with Ibuprofen) 30 days HPI Comments Details: 53y/o female comes for treatment of her Left hemifacial spasm with botox Botulinum toxin type A Lot no [id number] Exp 04/2026 was diluted with 2 cc of normal saline at a concentration of 5 units in 0.1 cc. Side effects were discussed and an informed consent was obtained. Muscles injected Christopher Lateral canthus - 15 units each left Nasolabial fold 10 units each Left zygomaticus 10 units Total used 50 units discarded 50 units PFSH Medical History Abdominal pain Pelvic pain in female Bilateral shoulder pain Vulvar irritation WISE (nonalcoholic steatohepatitis) Elevated antinuclear antibody (FELI) level FELI positive Encounter to discuss test results Hemifacial spasm of left side of face Peptic ulcer disease Esophageal spasm Family history of cerebral aneurysm Fibromyalgia Irritable bowel syndrome with both constipation and diarrhea History of meningitis Surgical History Keloid of skin H/O neck surgery Hx of section Hx of hysterectomy Hx of breast lump removal (~2019) History of bladder suspension procedure H/O bilateral breast reduction surgery Family History Mother Aneurysm Endometrial cancer Father No problems noted. Social History Alcohol intake: never Patient Tobacco Use Status: Never used Tobacco Sexual orientation: Straight/Heterosexual Gender identity: Female Physical Exam Const General: cooperative and no acute distress Orientation/consciousness: patient oriented x3 HEENT Head: Yes normocephalic Resp Effort & Inspection: normal respiratory effort and able to speak in complete sentences Neuro General: patient oriented x3, gait normal and CN's II-XI intact bilaterally (w/ exception of Left lower hemifascial spasm.) Cognition (Neuro): normal cognition Motor exam (neuro): 5/5 motor strength present throughout Office Procedures Botulinum toxin Injection 13208 - Facial Nerve Procedure code (CPT) selection complete Office Meds onabotulinumtoxinA 100 unit solution for injection Performing Provider: Maryam Negro MD Performing Location: [facility] Administered by: Maryam Negro MD on 03/01/24 14:54 Dose Route Admin Location Dispensed Lot Number Expiration Date [facility] [employer] 50 unit subcut 100 units [id number] ALLERGAN/BOTOX Comments: see HPI Assessment & Plan Assessment & Plan (1) Hemifacial spasm of left side of face: Code(s): G51.32 - Clonic hemifacial spasm, left Category: Medical Plan Patient tolerated the procedure well she will call with any side effects Orders: Orders AMB Botulinum toxin Injection Today G51.39 - Clonic hemifacial spasm, unspecified Medications: New onabotulinumtoxinA 100 units subcut ONCE 1 ea 0RF hemifacial spasm G51.39 - Clonic hemifacial spasm, unspecified Coding Level of Care Code Est Pt Level 1 (31728) Diagnoses Hemifacial spasm of left side of face G51.32 CPT Codes Botox Injection - Botox 2: 34599 - Facial Nerve ([id number])
== END 2024-03-01 15:04 | disposition home or self-care (01) ==
PROVIDERS: PCP Internal Medicine; Visit Provider Psychiatry & Neurology Neurology
DX: G51.32 Clonic hemifacial spasm, left (principal)
CPT/HCPCS: 64612

== ENCOUNTER → 2024-03-01 14:31 | Outpatient (BNVA) | payer MEDICAID, SELFPAY | PROVIDERS: PCP Internal Medicine; Visit Provider Psychiatry & Neurology Neurology | DX: G51.32 Clonic hemifacial spasm, left (principal) | CPT/HCPCS: 64612; 99211; J0585 ==

== ENCOUNTER 2024-03-04 10:31 | Outpatient (AMB) | payer MEDICAID, SELFPAY ==
[2024-03-04 10:35] VITALS: BP 138/87; PULSE 77; BMI 37.3
--- NOTE | 2024-03-04 10:35 | MHC.OFFVIS ---
Vital Signs 03/04/24 10:35 Height 5 ft 2 in Weight 203 lb 11.314 oz BMI 37.3 BP 138/87 Blood Pressure Location Rt brachial Position Sitting Pulse 77 Intake Visit Reasons: Post op r/s 02/15 Intake Note: Patient in office today in follow up s/p EGD. CC: Patient denies any new GI symptoms or concerns today. General Operations Manager Required: Yes Accompanied by: Self / Same As Patient Allergies duloxetine [From CYMBALTA] Allergy (Unknown, Verified 03/04/24 10:50) UNKNOWN pregabalin [From LYRICA] Allergy (Unknown, Verified 03/04/24 10:50) UNKNOWN meperidine [From DEMEROL] Adverse Reaction (Intermediate, Verified 03/04/24 10:50) N/V oxycodone [From Percocet] Adverse Reaction (Intermediate, Verified 03/04/24 10:50) itching HPI HPI Post op r/s 02/15: Details: Assessment & Plan (1) GERD (gastroesophageal reflux disease): Code(s): K21.9 - Gastro-esophageal reflux disease without esophagitis Category: Medical (2) Abdominal bloating: Code(s): R14.0 - Abdominal distension (gaseous) Category: Medical (3) Pre-op examination: Code(s): Z01.818 - Encounter for other preprocedural examination Category: Medical (4) Nausea and vomiting: Code(s): R11.2 - Nausea with vomiting, unspecified Category: Medical (5) Chronic idiopathic constipation: Code(s): K59.04 - Chronic idiopathic constipation Category: Medical (6) Dysphagia: Comment: food and liquid stickng med sternal Code(s): R13.10 - Dysphagia, unspecified Category: Medical (7) Abdominal pain: Code(s): R10.9 - Unspecified abdominal pain Category: Medical (8) Candidiasis of mouth and esophagus: Code(s): B37.81 - Candidal esophagitis; B37.0 - Candidal stomatitis Category: Medical (9) Diabetes: Code(s): E11.9 - Type 2 diabetes mellitus without complications Category: Medical Plan [place]ian #Antwon Live She says she was seen at [facility] and had N/V because of my sugars. She has a new dx of diabetes and for now they are trying diet control. She is having severe GERD, abd pain and nausea and vomiting. She also has a very sore and red tongue - this may be r/t the high sugars, prednisone therapy and roberto. Will treat with diflucan 100mg for 7 days. She feels that she has pain because she ran out of her bentyl. She continues on pantoprazole qam and famotidine qhs. Will re order the EGD and the CT - she was confused about not having to drink anything thinking this was similar to the colonoscopy prep - I explain the difference and she is willing to drink the contrast and wants the CT. The EGD she was never contacted to schedule. She wants to know if I should go on diabetes medications I explain that I would not manage this but she wants my opinion. I will get a HBa1c to give her an educated answer. I want to get the records from [facility] as bryanna says she was very sick and had to be waked to the bathroom. She is concerned about some sores on her legs and a blotchy pattern along with heel pain. 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 She is not a smoker. The sores could also be due to poorly controlled blood sugars but I am uncertain since I have not see any the labs connected with her recent illness. The heels are cracked in peeling which is common with diabetics but I am uncertain if there is some other underlying problem what to heel spur or even plantar fasciitis. She says that she throughout the Cologuard because she tried to collect the stool sample and got some urine in the bucket. I explained that that is actually okay and does not validate the test. Will try to we send this since she can not tolerate colonoscopy related to vomiting and severe reactions to any of the preps including the pill prep. She denies any prior problems with anesthesia or sedation. She denies any cardiac or respiratory problems. No ID problems. There is no known FHX of esophageal or stomach cancer. Return office visit in 6 weeks to make sure she has responded when she has the dicyclomine on board and to evaluate the records and testing. Orders: Orders CT abdomen pelvis w IV con Today R10.9 - Unspecified abdominal pain, R11.2 - Nausea with vomiting, unspecified EGD - GI Use Only Today R10.9 - Unspecified abdominal pain, R11.2 - Nausea with vomiting, unspecified Hemoglobin A1c Today E11.9 - Type 2 diabetes mellitus without complications Medications: New fluconazole (Diflucan) 100 mg PO DAILY 7 tabs 0RF 7 days B37.0 - Candidal stomatitis, B37.81 - Candidal esophagitis Refilled dicyclomine 10 mg PO TID 90 caps 3RF K22.4 - Dyskinesia of esophagus CT ABDOMEN AND PELVIS 02/10/24 FINDINGS: LUNG BASES: The visualized lung bases are unremarkable. LIVER, GALLBLADDER, AND BILIARY TREE: The liver is normal in size, shape, and attenuation. No focal hepatic lesion or biliary ductal dilatation is present. The gallbladder is unremarkable with no evidence of radiopaque gallstones, gallbladder wall thickening, or obvious pericholecystic inflammatory changes. PANCREAS: Unremarkable. SPLEEN: Unremarkable. ADRENAL GLANDS: Unremarkable. KIDNEYS AND URETERS: The kidneys are normal in size, shape, and attenuation. No hydronephrosis, hydroureter, or calculi seen. No perinephric stranding. BLADDER: The bladder is empty with a symmetrically thickened wall GASTROINTESTINAL TRACT: A few sigmoid diverticula are seen without diverticulitis The small and large bowel are unremarkable. The appendix is unremarkable. ABDOMINAL WALL: Tiny periumbilical hernia seen containing only fat. There is mild diastases of the rectus muscles. LYMPH NODES: No retroperitoneal lymphadenopathy. VASCULAR: Unremarkable. PELVIC VISCERA: The uterus is not seen. An abnormal adnexal mass is not detected. No free intraperitoneal fluid is present. A normal left ovary is seen with a benign 1 cm cyst; a right ovary is not identified. OSSEOUS STRUCTURES: Unremarkable. CT/CT abdomen pelvis w IV con IMPRESSION: 1. A cause for the patient's nausea and vomiting has not been found. 2. Incidental note made of a few sigmoid diverticula without diverticulitis, hysterectomy and benign 1 cm left ovarian cyst. 02/10/24 EGD 02/09/24 Findings: Larynx:normal Esophagus: GE junction at 38 cm, diaphragm hiatus at 38 cm, mild esphagitis, balloon dilation of LES to 20 mm and 18 mm at UES Stomach: streaky erosive gastritis in pylorus and gastric ulcer near outlet, about 10 mm in length, stellate shaped . Biopsies were obtained. Grade 2 flap valve on retroflexed examination of the cardia. Duodenum: Normal bulb and descending duodenum, Intervention: Biopsies as noted above, balloon dilation Impression/Findings: erosive gastritis gastric ulcer mild esophagitis PLAN: change pantoprazole to esomeprazole 40 mg if h pylori pos then treat GERD precautions repeat EGD in 3-6 months to check for ulcer resolution BIOPSY Received: 02/09/24 Diagnosis Stomach, biopsy: Antral-type mucosa with mild chronic inactive inflammation; no Helicobacter organisms seen TODAY'S VISIT [place]ian #Yoan liVE She confirms that she DOES have diabetes, (her A1c was elevated when I checked it out because of all of the concerns and the physical exam findings seem to point to diabetes) but says it was found on my employment attorney blood work but you were the first one to mention this as a possibility. She will be started on Mounjaro soon. She is awaiting insurance approval. (her shoeshiner is in [place]). She is compliant with her pantoprazole qam and famotidne qhs, but with investigation she will take naproxen anywhere from 2-3 times a week depending on her FMS pain levels. She may need bid PPI r/t this to protect her stomach. She was changed to generic Nexium by Dr. Gan, but I will try to get BID dosing. She also has chronic prednisone therapy that effects both her gastric mucosa and her BS. Her swallowing was improved with the dilatation and she is happy with this. She tried to collect the COloguard but she urinated as well and she thought this invalidated it so she threw it away. Will reorder. She never received the diflucan but still has white stuff on my tongue, she was given a nystatin swish but this has not helped. I will resend the Diflucan. This likely is a part of her chronic prednisone therapy along with the higher blood sugars. next avail. [facility] Medical History (Updated 03/04/24 @ 17:38 by JOCELYN Leung) Pre-op examination Hemifacial spasm Abdominal pain Pelvic pain in female Bilateral shoulder pain Vulvar irritation WISE (nonalcoholic steatohepatitis) Elevated antinuclear antibody (FELI) level FELI positive Encounter to discuss test results Hemifacial spasm of left side of face Peptic ulcer disease Esophageal spasm Family history of cerebral aneurysm Fibromyalgia Irritable bowel syndrome with both constipation and diarrhea History of meningitis Surgical History (Updated 03/04/24 @ 10:50 by RAUL Coulter) History of esophagogastroduodenoscopy (EGD) Keloid of skin H/O neck surgery Hx of section Hx of hysterectomy Hx of breast lump removal (~2019) History of bladder suspension procedure H/O bilateral breast reduction surgery Family History Mother Aneurysm Endometrial cancer Father No problems noted. Social History Alcohol intake: never Patient Tobacco Use Status: Never used Tobacco Sexual orientation: Straight/Heterosexual Gender identity: Female Review of Systems Const Denies fatigue, Denies fever(s), Denies night sweats, Denies poor appetite and Denies weight loss ENT Details: White coating on tongue Reports Normal hearing present, Denies dental pain, Denies dysphagia, Denies hearing loss, Denies mouth pain, Denies odynophagia, Denies throat swelling, Denies tongue swelling and Reports other (Dentition adequate) Card Reports no additional complaints Resp Reports no additional complaints GI Details: Denies abdominal pain, Denies melena, Denies bloating, Denies hematochezia, Reports constipation, Denies GI cramping, Denies dysphagia, Denies excessive flatus, Denies early satiety, Reports heartburn, Denies diarrhea, Denies nausea, Denies odynophagia, Denies vomiting and Denies hematemesis Musc Reports back pain, Reports myalgias and Reports arthralgias Skin/Breast Denies pruritus, Denies lesions, Reports rash, Reports skin swelling and Denies jaundice Neuro Reports Normal hearing present and Denies Abnormal speech present Endo Denies fatigue Aller/Immun Denies throat swelling and Denies tongue swelling Physical Exam Vital Signs: Last Vital Signs Pulse 77 03/04/24 10:35 BP 138/87 03/04/24 10:35 BMI result Body Mass Index 37.3 Const General: cooperative, no acute distress, well developed and well groomed Nutritional Appearance: well nourished and obese Orientation/consciousness: oriented to person, oriented to place and oriented to time Limitations: language barrier HEENT Head: Yes normocephalic and Yes atraumatic Eyes General: appearance normal, both eyes and all related structures Pupils: Equal, round and reactive pupils present Neck Neck: Yes normal visual inspection and Yes no lymphadenopathy Thyroid: Thyroid normal Resp Effort & Inspection: normal respiratory effort and able to speak in complete sentences Auscultation: clear to auscultation bilaterally Cardio Rate: regular rate Rhythm: regular rhythm Heart sounds: Normal, physiologic split S2 sound present Peripheral pulses: radial pulses present and posterior tibial pulses present GI Inspection: No distended, Yes Abdominal panniculus present and Yes obesity Palpation (GI): Soft to palpation, nontender, no guarding, not rigid and No hepatosplenomegaly present Percussion: Yes normal to percussion Auscultation: normal bowel sounds Rectal Exam - Female: deferred Skin General skin exam: no rashes or lesions noted, turgor normal, skin not dry, no jaundice, No spider nevi and no striae Rashes: no rashes Nails: normal Neuro General: oriented to person, oriented to place and oriented to time Cranial nerves: Yes Equal, round and reactive pupils present and Yes Normal hearing present Speech: No Abnormal speech present Extrem General: Yes normal to inspection, No clubbing, No cyanosis and No edema Psych Appearance: grossly normal and well kempt Mental Status: mental status grossly normal Speech and movement: Normal speech and movement present Affect: normal affect Attitude: cooperative Thought process: Normal thought process present and not confabulating Thought content: Normal thought content present Insight: Limited insight present (Psych) Judgement: Limited judgement present (Psych) Results Reviewed Results Reviewed: CT ABDOMEN AND PELVIS 02/10/24 FINDINGS: LUNG BASES: The visualized lung bases are unremarkable. LIVER, GALLBLADDER, AND BILIARY TREE: The liver is normal in size, shape, and attenuation. No focal hepatic lesion or biliary ductal dilatation is present. The gallbladder is unremarkable with no evidence of radiopaque gallstones, gallbladder wall thickening, or obvious pericholecystic inflammatory changes. PANCREAS: Unremarkable. SPLEEN: Unremarkable. ADRENAL GLANDS: Unremarkable. KIDNEYS AND URETERS: The kidneys are normal in size, shape, and attenuation. No hydronephrosis, hydroureter, or calculi seen. No perinephric stranding. BLADDER: The bladder is empty with a symmetrically thickened wall GASTROINTESTINAL TRACT: A few sigmoid diverticula are seen without diverticulitis The small and large bowel are unremarkable. The appendix is unremarkable. ABDOMINAL WALL: Tiny periumbilical hernia seen containing only fat. There is mild diastases of the rectus muscles. LYMPH NODES: No retroperitoneal lymphadenopathy. VASCULAR: Unremarkable. PELVIC VISCERA: The uterus is not seen. An abnormal adnexal mass is not detected. No free intraperitoneal fluid is present. A normal left ovary is seen with a benign 1 cm cyst; a right ovary is not identified. OSSEOUS STRUCTURES: Unremarkable. CT/CT abdomen pelvis w IV con IMPRESSION: 1. A cause for the patient's nausea and vomiting has not been found. 2. Incidental note made of a few sigmoid diverticula without diverticulitis, hysterectomy and benign 1 cm left ovarian cyst. 02/10/24 EGD 02/09/24 Findings: Larynx:normal Esophagus: GE junction at 38 cm, diaphragm hiatus at 38 cm, mild esphagitis, balloon dilation of LES to 20 mm and 18 mm at UES Stomach: streaky erosive gastritis in pylorus and gastric ulcer near outlet, about 10 mm in length, stellate shaped . Biopsies were obtained. Grade 2 flap valve on retroflexed examination of the cardia. Duodenum: Normal bulb and descending duodenum, Intervention: Biopsies as noted above, balloon dilation Impression/Findings: erosive gastritis gastric ulcer mild esophagitis PLAN: change pantoprazole to esomeprazole 40 mg if h pylori pos then treat GERD precautions repeat EGD in 3-6 months to check for ulcer resolution BIOPSY Received: 02/09/24 Diagnosis Stomach, biopsy: Antral-type mucosa with mild chronic inactive inflammation; no Helicobacter organisms seen Assessment & Plan Assessment & Plan (1) Chronic gastric ulcer: Code(s): K25.7 - Chronic gastric ulcer without hemorrhage or perforation Category: Medical (2) Candidiasis of mouth and esophagus: Code(s): B37.81 - Candidal esophagitis; B37.0 - Candidal stomatitis Category: Medical (3) Nausea and vomiting: Comment: likely r/t her chronic ulcer Code(s): R11.2 - Nausea with vomiting, unspecified Category: Medical (4) GERD (gastroesophageal reflux disease): Code(s): K21.9 - Gastro-esophageal reflux disease without esophagitis Category: Medical (5) Dysphagia: Comment: Improved with dilation after EGD aeb Code(s): R13.10 - Dysphagia, unspecified Category: Medical (6) Chronic idiopathic constipation: Code(s): K59.04 - Chronic idiopathic constipation Category: Medical Plan [place] #Yoan liVE She confirms that she DOES have diabetes, (her A1c was elevated when I checked it out because of all of the concerns and the physical exam findings seem to point to diabetes) but says it was found on my employment attorney blood work but you were the first one to mention this as a possibility. She will be started on Mounjaro soon. She is awaiting insurance approval. (her shoeshiner is in [place]). She is compliant with her pantoprazole qam and famotidne qhs, but with investigation she will take naproxen anywhere from 2-3 times a week depending on her FMS pain levels. She may need bid PPI r/t this to protect her stomach. She was changed to generic Nexium by Dr. Gan, but I will try to get BID dosing. She also has chronic prednisone therapy that effects both her gastric mucosa and her BS. Her swallowing was improved with the dilatation and she is happy with this. She tried to collect the COloguard but she urinated as well and she thought this invalidated it so she threw it away. Will reorder. She never received the diflucan but still has white stuff on my tongue, she was given a nystatin swish but this has not helped. I will resend the Diflucan. This likely is a part of her chronic prednisone therapy along with the higher blood sugars. She continues on her dicyclomine 10 mg 3 times a day, and a magnesium supplement twice a day and is on amitriptyline for other next avail. Medications: New fluconazole (Diflucan) 200 mg PO DAILY 10 tabs 0RF 10 days B37.0 - Candidal stomatitis, B37.81 - Candidal esophagitis Changed From esomeprazole magnesium 40 mg PO DAILY 90 caps 1RF K25.7 - Chronic gastric ulcer without hemorrhage or perforation To esomeprazole magnesium 40 mg PO BID 180 caps 1RF K25.7 - Chronic gastric ulcer without hemorrhage or perforation Refilled dicyclomine 10 mg PO TID 90 caps 6RF K22.4 - Dyskinesia of esophagus Discontinued famotidine Discontinued Reason: Doctor's Order 40 mg PO BID 180 tabs 2RF K27.9 - Peptic ulcer, site unspecified, unspecified as acute or chronic, without hemorrhage or perforation fluconazole (Diflucan) Discontinued Reason: Doctor's Order 100 mg PO DAILY 7 days 7 tabs 0RF B37.0 - Candidal stomatitis, B37.81 - Candidal esophagitis Coding Level of Care Code Est Pt Level 4 (02262) Diagnoses Chronic gastric ulcer K25.7 Candidiasis of mouth and esophagus B37.81; B37.0 Nausea and vomiting R11.2 GERD (gastroesophageal reflux disease) K21.9 Dysphagia R13.10 Chronic idiopathic constipation K59.04 Time Spent (min) 35
== END 2024-03-04 11:30 | disposition home or self-care (01) ==
PROVIDERS: PCP Family Medicine; Visit Provider Nurse Practitioner
DX: K25.7 Chronic gastric ulcer without hemorrhage or perforation (principal); B37.81 Candidal esophagitis; B37.0 Candidal stomatitis; R11.2 Nausea with vomiting, unspecified; K21.9 Gastro-esophageal reflux disease without esophagitis; R13.10 Dysphagia, unspecified; K59.04 Chronic idiopathic constipation
CPT/HCPCS: 99214

== ENCOUNTER → 2024-03-04 10:31 | Outpatient (BNVA) | payer MEDICAID, SELFPAY | PROVIDERS: PCP Family Medicine; Visit Provider Nurse Practitioner | DX: K25.7 Chronic gastric ulcer without hemorrhage or perforation (principal); K59.04 Chronic idiopathic constipation; K21.9 Gastro-esophageal reflux disease without esophagitis; R11.2 Nausea with vomiting, unspecified; R13.10 Dysphagia, unspecified; B37.81 Candidal esophagitis; B37.0 Candidal stomatitis | CPT/HCPCS: 99212 ==

== ENCOUNTER 2024-04-11 12:43 | Outpatient (AMB) | payer MEDICAID, SELFPAY ==
--- NOTE | 2024-04-11 13:02 | MHC.OFFVIS ---
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 Chronic Pelvic Pain/PCP Ref Gas Dispatcher Required: Yes Gas Dispatcher Language: Software Release Engineer Services: Gas Dispatcher Present (in person) Gas Dispatcher Name: Tamera JOHNS Information Interpreted: non-clinical & clinical Aquatic Life Laborer: Aquatic Life Laborer Present (Tamera JOHNS) Accompanied by: Self / Same As Patient Allergies duloxetine [From CYMBALTA] Allergy (Unknown, Verified 04/11/24 13:14) UNKNOWN pregabalin [From LYRICA] Allergy (Unknown, Verified 04/11/24 13:14) UNKNOWN meperidine [From DEMEROL] Adverse Reaction (Intermediate, Verified 04/11/24 13:14) N/V oxycodone [From Percocet] Adverse Reaction (Intermediate, Verified 04/11/24 13:14) itching Post menopausal: Yes HPI Comments Details: Presenting referred from PCP regarding 15 year history of chronic pelvic pain no associated vaginal discharge or bleeding. The patient is being followed up by GI for multitude of GI problems and Urology for urinary incontinence. The patient gives a history of being followed up by multiple sample preparation supervisor over the years with multiple workups in treatment. None of them helped according to the patient. 01/23 CT scan showed the following: IMPRESSION: 1. A cause for the patient's nausea and vomiting has not been found. 2. Incidental note made of a few sigmoid diverticula without diverticulitis, hysterectomy and benign 1 cm left ovarian cyst. [facility] Medical History Pre-op examination Hemifacial spasm Abdominal pain Pelvic pain in female Bilateral shoulder pain Vulvar irritation WISE (nonalcoholic steatohepatitis) Elevated antinuclear antibody (FELI) level FELI positive Encounter to discuss test results Hemifacial spasm of left side of face Peptic ulcer disease Esophageal spasm Family history of cerebral aneurysm Fibromyalgia Irritable bowel syndrome with both constipation and diarrhea History of meningitis Surgical History History of esophagogastroduodenoscopy (EGD) Keloid of skin H/O neck surgery Hx of section Hx of hysterectomy Hx of breast lump removal (~2019) History of bladder suspension procedure H/O bilateral breast reduction surgery Family History Mother Aneurysm Endometrial cancer Father No problems noted. Social History Alcohol intake: never Patient Tobacco Use Status: Never used Tobacco Sexual orientation: Straight/Heterosexual Gender identity: Female Review of Systems Const All systems reviewed & are unremarkable except as noted in HPI and below Card Reports as per HPI and Reports no additional complaints Resp Reports as per HPI and Reports no additional complaints GI Reports as per HPI and Reports no additional complaints Reports as per HPI Physical Exam Vital Signs: Last Vital Signs BP 122/80 04/11/24 13:03 BMI result Body Mass Index 37.1 Const General: cooperative, healthy appearing and comfortable General: Yes bladder normal to palpation External Female Exam: No lesion Speculum Exam - Vagina: normal appearance of the vagina, normal vaginal discharge and not erythematous Speculum Exam - Cervix: Cervix absent Bimanual exam- vagina & uterus: bladder normal to palpation and uterus absent Bimanual Exam- Adnexa, other: Other (No masses detected) Results AMB Urinalysis Dipstick UR Leukocytes Negative Last Edit by Tamera Hoffman CMA on 04/11/24 13:33 UR Nitrite Negative Last Edit by Tamera Hoffman CMA on 04/11/24 13:33 UR Urobilinogen Normal Last Edit by Tamera Hoffman CMA on 04/11/24 13:33 UR Protein 100 Last Edit by Tamera Hoffman CMA on 04/11/24 13:33 UR Ph 6.0 Last Edit by Tamera Hoffman CMA on 04/11/24 13:33 UR Blood Negative Last Edit by Tamera Hoffman CMA on 04/11/24 13:33 UR Specific [place] 1.025 Last Edit by Tamera Hoffman CMA on 04/11/24 13:33 UR Ketone Negative Last Edit by Tamera Hoffman CMA on 04/11/24 13:33 UR Bilirubin Small Last Edit by Tamera Hoffman CMA on 04/11/24 13:33 UR Glucose Negative Last Edit by Tamera Hoffman CMA on 04/11/24 13:33 Results Reviewed Results Reviewed: Laboratory Last Values Urine pH (Clinic) 6.0 04/11/24 13:32 Specific [place] (Clinic) 1.025 04/11/24 13:32 Ur Protein (Clinic) 100 04/11/24 13:32 Ur Ketones (Clinic) Negative 04/11/24 13:32 Urine Blood (Clinic) Negative 04/11/24 13:32 Urine Nitrite Negative 04/11/24 13:32 Urine Bilirubin (Clinic) Small 04/11/24 13:32 Urobilinogen (Clinic) Normal 04/11/24 13:32 Leukocyte Esterase (Clinic) Negative 04/11/24 13:32 Urine Glucose (Clinic) Negative 04/11/24 13:32 Assessment & Plan Assessment & Plan (1) Chronic pelvic pain in female: Code(s): R10.2 - Pelvic and perineal pain; G89.29 - Other chronic pain Category: Medical Plan: Urine dip done in the office was negative. pelvic ultrasound ordered. Discussed with the patient the differential diagnosis of pelvic pain including but not limited to adnexal, GI the (Irritable bowel syndrome, diverticulitis, others), musculoskeletal, myofascial pain abdominal wall , adhesions, psychological and others causes. The patient was instructed to follow up with GI, and will refer to Urology for incontinence. All questions answered, the patient verbalized understanding. Instructed the patient to schedule an ultrasound and a follow-up appointment in 2 weeks. All questions answered, the patient verbalized understanding and agreed with the plan. (2) Urinary incontinence: Code(s): R32 - Unspecified urinary incontinence Category: Medical Plan: Will refer to urology for further management Orders: Orders AMB Urinalysis Dipstick Today R10.2 - Pelvic and perineal pain US pelvic and transvaginal Today R10.2 - Pelvic and perineal pain Referrals Urology Referral R32 - Unspecified urinary incontinence Coding Level of Care Code New Pt Level 3 (76725) Diagnoses Chronic pelvic pain in female R10.2; G89.29 Urinary incontinence R32
[2024-04-11 13:03] VITALS: BP 122/80; BMI 37.1
== END 2024-04-11 13:48 | disposition home or self-care (01) ==
LOC: HO.HWS 12:43
PROVIDERS: PCP Family Medicine; Visit Provider Obstetrics & Gynecology
DX: R10.2 Pelvic and perineal pain (principal); G89.29 Other chronic pain; R32 Unspecified urinary incontinence
CPT/HCPCS: 99203

== ENCOUNTER → 2024-04-11 12:43 | Outpatient (BNVA) | payer MEDICAID, SELFPAY | PROVIDERS: PCP Family Medicine; Visit Provider Obstetrics & Gynecology | DX: R10.2 Pelvic and perineal pain (principal); R32 Unspecified urinary incontinence; G89.29 Other chronic pain | CPT/HCPCS: 81002; 99202 ==

== ENCOUNTER 2024-05-02 12:13 | Outpatient (REF) | payer MEDICAID, SELFPAY ==
--- NOTE | ~2024-05-02 | US_ITS ---
CLINICAL HISTORY: R10.2 - Pelvic and perineal pain US pelvis transvaginal Comparison: US - US PELVIC COMPLETE - 01/17/20 10:57 EST Findings: Transvaginal scanning performed. The uterus and right ovary have been removed. No right adnexal masses. Left ovary 2.6 x 2.1 x 1.4 cm. This ovary contains what appears to be multiple small follicles. Normal color Doppler of the left ovary. No free fluid. IMPRESSION: 1. Unchanged appearance of the left ovary compared with the prior exam. Uterus and right ovary have been removed. This document has been electronically signed by: Meg Gleason MD on 05/03/2024 09:16:51
--- OUTSIDE RECORDS SUMMARY | 2024-05-02 14:18 | XMS_ITS | Encounter Summary ---
Author Organization [employer] Address [address] [place] [address] Care Team Providers Care Jewelry Estimator Name Role Phone Cristian Chacon MD Primary Care Prov ider Reason for Visit * Reason Comments Med Change Request Encounter Details Date Type Department Care Team ([facility] Contact Info) Description 08/31/2023 Refill [facility] [address] [place], [place] [phone] Cristian Chacon MD [address] [place] [address] Social History Tobacco Use Types Packs/Day Years Used Date Smoking Tobacco: Never Passive Smoke Exposure: Never Smokeless Tobacco: Never Depression Answer Date Recorded Patient Health Questionnaire-9 Score 14 04/17/2023 Patient Health Questionnaire-9 Score 14 04/17/2023 Last PHQ-9: Questionnaire Data Not on file 0 04/17/2023 Housing Stability Answer Date Recorded What is your housing situation today? I have lily reeves 05/13/[address] you li ve. Do you have problems with any of the following? None of the above 05/13/2023 Food Insecurity Answer Date Recorded Within the past 12 months, y ou worried that your food would run out before you got money to buy more: Never True 05/13/2023 Within the past 12 months,th e food you bought just didn't last and you didn't have enough money to get more: Never True Transportation Answer Date Recorded In the past 12 months, has l ack of transportation kept you from medical appts, meetings, work or from getting things needed for daily living? No 05/13/2023 Utilities Answer Date Recorded In the past 12 months, has t he electric, gas, oil or water company threatened to shut off services in your home? No 05/13/2023 Depression Answer Date Recorded Patient Health Questionnaire-2 Score 6 04/17/2023 Comments Unknown Sex and Gender Information Value Date Recorded Sex Assigned at Female 12/30/2021 10:24 AM EDT Legal Sex Female 10:24 AM EDT Gender Identity Female 12/30/2021 10:24 AM EDT Sexual Orientation Straight 12/30/2021 10 :24 AM EDT documented as of this encounter Plan of Treatment Upcoming Encounters Date Type Department Care Team (Late st Contact Info) Description 05/17/2024 1:30 PM EDT Office Visit [facility] MED & PEDS [address] [place] [address] Cristian Chacon MD [address] [place] [address] documented as of this encounter Visit Diagnoses Not on filedocumented in this encounter Additional Health Concerns Assessment Noted Time PHQ-9 Depression Total Score: 14 024 9:49 AM EST documented as of this encounter Care Teams Jewelry Estimator Relationship Specialty Start Date End Date Cristian Chacon MD [address] [place] [address] PCP - General Internal Medicine 03/17/19 Ivy Payne Parking Ramp AttendantAllergist Immunologist 03/03/23 11/25/23 Ivy Payne Property Preservation SpecialistAllergist Immunologist 11/26/23 documented as of this encounter
--- OUTSIDE RECORDS SUMMARY | 2024-05-02 14:18 | XMS_ITS | Encounter Summary ---
Author Organization [employer] Address [address] [facility] 7[address] [place] [address] Care Team Providers Care Wheel Borer Name Role Phone Cristian Chacon MD Primary Care Prov ider Encounter Details Date Type Department Care Team ([facility] Contact Info) Description 11/19/2023 Orders Only [facility] [address] [place] [address] Provider, MD Roderick Social History Tobacco Use Types Packs/Day Years [...] 05/17/2024 1:30 PM EDT Office Visit [facility] MED & PEDS [address] [place] [address] Cristian Chacon MD [address] [place] [address] documented as of this encounter Procedures Procedure Name Priority Date/Time Associated Diagnosis Comments HM HEMOGLOBIN A1C Routine 11/18/2023 10:40 AM EDT T4, FREE Routine 11/18/2023 10:37 AM EDT documented in this encounter Results * HM Hemoglobin A1c (11/18/2023 10:40 AM EDT) Historical Provider HEALTH MAINTENANCE Final Result * T4, Free (11/18/2023 10:37 AM EDT) Blood Venous blood specimen / Unknown Historical Provider LAB BLOOD ORDERABLES Gladis l Result documented in this encounter Visit Diagnoses Not on filedocumented in this encounter Additional Health Concerns Assessment Noted Time PHQ-9 Depression Total Score: 14 024 9:49 AM EST documented as of this encounter Care Teams Wheel Borer Relationship Specialty Start Date End Date Cristian Chacon MD [address] [place] [address] PCP - General Internal Medicine 03/17/19 Ivy Payne Puller OverPlant Safety Leader 03/03/23 11/25/23 Ivy Payne Publications EditorPlant Safety Leader 11/26/23 documented as of this encounter
--- OUTSIDE RECORDS SUMMARY | 2024-05-02 14:18 | XMS_ITS | Encounter Summary ---
Author Organization [employer] Address [address] [facility] [address] [place] [address] Care Team Providers Care Blood Bank Calendar Control Clerk Name Role Phone Cristian Chacon MD Primary Care Prov ider Reason for Visit * Reason Onset Date Comments New med script 04/01/2022 Encounter Details Date Type Department Care Team ([facility] Contact Info) Description 04/01/2022 Telephone [facility] MED & PEDS [address] [place], [place] [phone] Cristian Chacon MD [address] [place] [address] New med script Social History Tobacco Use Types Packs/Day Years Used Date Smoking Tobacco: Never Smokeless Tobacco: Never Comments Unknown Sex and Gender Information Value Date Recorded Sex Assigned at Female 12/30/2021 10:24 AM EDT Legal Sex Female 10:24 AM EDT Gender Identity Female 12/30/2021 10:24 AM EDT Sexual Orientation Straight 12/30/2021 10 :24 AM EDT COVID-19 Exposure Response Date Recorded In the last 10 days, have yo u been in contact with someone who was confirmed or suspected to have Coronavirus/COVID-19? No / Unsure 03/20/2022 2:47 PM EST documented as of this encounter Plan of Treatment Upcoming Encounters Date Type Department Care Team ([facility] Contact Info) Description 05/17/2024 1:30 PM EDT Office Visit [facility] MED & PEDS [address] [place], [place] [phone] Cristian Chacon MD [address] [place] [address] documented as of this encounter Visit Diagnoses Not on filedocumented in this encounter Care Teams Blood Bank Calendar Control Clerk Relationship Specialty Start Date End Date Cristian Chacon MD [address] [place] [address] PCP - General Internal Medicine 03/17/19 Ivy Payne Roll Cutting OperatorGuidance Adviser 03/03/23 11/25/23 Ivy Payne Manager AdministrativeGuidance Adviser 11/26/23 documented as of this encounter
--- OUTSIDE RECORDS SUMMARY | 2024-05-02 14:18 | XMS_ITS | Encounter Summary ---
Author Organization [employer] Address [address] [facility] [address]t [place] [address] Care Team Providers Care Dewaxer Name Role Phone Cristian Chacon MD Primary Care Prov ider Reason for Visit * Reason Onset Date Comments Nurse Triage 08/24/2023 Encounter Details Date Type Department Care Team ([facility] st Contact Info) Description 08/24/2023 Telephone [facility] [address] [place], [place] [phone] Cristian Chacon MD [address] [place] [address] Nurse Triage Social History Tobacco Use Types Packs/Day Years [...] AM EDT documented as of this encounter Miscellaneous Notes * Telephone Encounter - Zee Lance RN - 08/24/2023 10:26 AM EDT Triage call with [employer] Specialist [place] [id number] Pt reports rash has developed on upper, inner thighs and has spread to private area . Pt describesrash as red, bumpy and itchy. Pt reports some irritation vaginally and burning with urination. Burning is described as occurring when urine contacts rash but, may have other urinary symptoms as well.This is not clear to triage nurse. Advised Pt to come to [facility] today at 230pm. Pt agrees with this disposition. Insurance is verified as active prior to booking. Protocol Used: Rash or Redness - Localized (Adult) Protocol-Based Disposition: See in Office or Video Visit Today Video visit not offered Positive Triage Question: * Patient wants to be seen * All higher-acuity triage questions were negative Care Advice Discussed: * Reassurance and Education - Mild Localized Rash * Avoid the Cause * Wash the Area * Don't Scratch * Reasons To Call Back - Rash spreads or becomes worse - Rash lasts longer than 1 week - You become worse * Telephone Encounter - Amy Conroy - 08/24/2023 9:42 AM EDT Symptoms: Rash or Redness on One Body Area Only, Urination Pain Outcome: Schedule an urgent appointment (within 1 hour) or talk to a nurse or provider soon Reason: Severe pain now The caller accepted this outcome Please contact pt at [phone] (hot wort settler) documented in this encounter Plan of Treatment Upcoming Encounters Date Type Department Care Team ([facility] st Contact Info) Description 05/17/2024 1:30 PM EDT Office Visit [facility] MED & PEDS [address] [place] [address] Cristian Chacon MD [address] [place] [address] documented as of this encounter Visit Diagnoses Not on filedocumented in this encounter Additional Health Concerns Assessment Noted Time PHQ-9 Depression Total Score: 14 024 9:49 AM EST documented as of this encounter Care Teams Dewaxer Relationship Specialty Start Date End Date Cristian Chacon MD [address] [place] [address] PCP - General Internal Medicine 03/17/19 Ivy Payne Currency ExaminerDirector Of Rehabilitation 03/03/23 11/25/23 Ivy Payne Miller HelperDirector Of Rehabilitation 11/26/23 documented as of this encounter
--- OUTSIDE RECORDS SUMMARY | 2024-05-02 14:18 | XMS_ITS | Encounter Summary ---
Author Organization [employer] Address [address] [place] [address] Care Team Providers Care Insurance Claims Examiner Name Role Phone Cristian Chacon MD Primary Care Prov ider Encounter Details Date Type Department Care Team ([facility] st Contact Info) Description 12/22/2023 Orders Only [facility]S [address] [place], [place] [phone] Cristian Chacon MD [address] [place] [address] Social History Tobacco Use Types Packs/Day Years Used Date Smoking Tobacco: Never Passive Smoke Exposure: Never Smokeless Tobacco: Never Depression Answer Date Recorded Patient Health Questionnaire-9 Score 16 12/22/2023 Patient Health Questionnaire-9 Score 16 12/22/2023 Last PHQ-9: Questionnaire Data Not on file 1 Housing Stability Answer Date Recorded What is [...] Date Recorded Patient Health Questionnaire-2 Score 6 12/22/2023 Comments No Sex and Gender Information Value Date Recorded Sex Assigned at Female 12/30/2021 10:24 AM EDT Legal Sex Female 10:24 AM EDT Gender Identity Female 12/30/2021 10:24 AM EDT Sexual Orientation Straight 12/30/2021 10 :24 AM EDT documented as of this encounter Plan of Treatment Upcoming Encounters Date Type Department Care Team (Late st Contact Info) Description 05/17/2024 1:30 PM EDT Office Visit [facility] MED & PEDS [address] [place] [address] Cristian Chacon MD [address] [place] [address] documented as of this encounter Visit Diagnoses Not on filedocumented in this encounter Additional Health Concerns Assessment Noted Time PHQ-9 Depression Total Score: 16 024 1:19 PM EDT documented as of this encounter Care Teams Insurance Claims Examiner Relationship Specialty Start Date End Date Cristian Chacon MD [address] [place] [address] PCP - General Internal Medicine 03/17/19 Ivy Payne Heater Engineer HelperRecruiting Specialist 11/26/23 documented as of this encounter
--- OUTSIDE RECORDS SUMMARY | 2024-05-02 14:18 | XMS_ITS | Encounter Summary ---
Author Organization [employer] [facility] Address [address] [facility] [address] [place] [address] Care Team Providers Care Voice Pathologist Name Role Phone Cristian Chacon MD Primary Care Prov ider Encounter Details Date Type Department Care Team (Latest Contact Info) Description 04/12/2019 Abstract [facility] CONVERSIONS Dental, Provider, DDS Social History Tobacco Use Types Packs/Day Years Used Date Smoking Tobacco: Never Assessed Comments Unknown Sex and Gender Information Value [...] Description 05/17/2024 1:30 PM EDT Office Visit [facility] PEDS [address] [place] [address] Cristian Chacon MD [address] [place] [address] documented as of this encounter Visit Diagnoses Not on filedocumented in this encounter Care Teams Voice Pathologist Relationship Specialty Start Date End Date Cristian Chacon MD [address] [place] [address] PCP - General Internal Medicine 03/17/19 Ivy Payne Junior Account ManagerBunghole Borer 03/03/23 11/25/23 Ivy Payne Sample Preparation SupervisorBunghole Borer 11/26/23 documented as of this encounter
--- OUTSIDE RECORDS SUMMARY | 2024-05-02 14:18 | XMS_ITS | Encounter Summary ---
Author Organization [employer] Address [address] [facility] [address] [place] [address] Care Team Providers Care Commercial Portfolio Manager Name Role Phone Cristian Chacon MD Primary Care Prov ider Encounter Details Date Type Department Care Team ([facility] Contact Info) Description 01/11/2024 Orders Only [facility] [address] [place] [address] Provider, MD Roderick Social History Tobacco Use [...] Description 05/17/2024 1:30 PM EDT Office Visit [facility] MED & PEDS [address] [place] [address] Cristian Chacon MD [address] [place] [address] documented as of this encounter Procedures Procedure Name Priority Date/Time Associated Diagnosis Comments CT ABDOMEN PELVIS W CONTRAST Routine 01/10/2024 3:45 PM EST documented in this encounter Results * CT Abdomen Pelvis w/ Contrast (01/10/2024 3:45 PM EST) Anatomical Region Laterality Modality Body, Pelvis, Abdomen Computed T omography us Historical Provider MD MAHONEY CT PROCEDURES Final R esult documented in this encounter Visit Diagnoses Not on filedocumented in this encounter Additional Health Concerns Assessment Noted Time PHQ-9 Depression Total Score: 16 024 1:19 PM EDT documented as of this encounter Care Teams Commercial Portfolio Manager Relationship Specialty Start Date End Date Cristian Chacon MD [address] [place] [address] PCP - General Internal Medicine 03/17/19 Ivy Payne Electrical Appliance RepairerPulmonary Physician 11/26/23 documented as of this encounter
--- OUTSIDE RECORDS SUMMARY | 2024-05-02 14:18 | XMS_ITS | Clinical Summary ---
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 Concentration - - Weight 90.7 kg (200 lb) 04/26/2024 11:10 AM EST Height 157.5 cm (5' 2 ) 04/04/2024 3:49 PM EST Body Mass Index 36.58 04/04/2024 3:49 PM EST Plan of Treatment Upcoming Encounters Date Type Department Care Team (Late st Contact Info) Description 05/17/2024 1:30 PM EDT Office Visit [facility] MED & PEDS [address] [place] [address] Cristian Chacon MD [address] [place] [address] Health Maintenance Due Date Last Done Comments CT Colonography 1968 Colonoscopy 1968 Colorectal Cancer Screening 1968 FIT DNA/Cologuard 1968 FIT 1968 FOBT 1968 HIV Screening 1968 Sigmoidoscopy 1968 Diabetes: Foot Exam 1978 Eye Exam 1978 Alcohol/Substance Use Screening 1980 Hepatitis C Screening 1986 Hepatitis A Vaccines (1 of 2 - Risk 2-dose series) 07/20/1987 Hepatitis B Vaccines (1 of 3 - 19+ 3-dose series) 07/20/1987 Pap Smear 1989 Cervical Cancer Screening 1998 HPV/Cotest 1998 Pneumococcal Vaccine: 50+ Years (3 of 3 - PCV20 or PCV21) 2018 10/14/2010, 10/14/2010 Zoster Vaccines (2 of 2) 06/08/2019 04/13/2019 DTaP/Tdap/Td Vaccines (2 - Td or Tdap) 10/14/2020 10/14/2010 Lipid Panel 11/26/2022 11/26/2021 Diabetes: Hemoglobin A1C 05/02/2024 024, 11/18/2023, 11/18/2023, Additional history exists Depression Monitoring (PHQ-9) 06/21/2024 12/22/2023, 12/22/2023 Depression Screening 12/21/2024 12/22/2023, 12/22/19 Tobacco Screening 03/25/2025 03/25/2024 Diabetes: Urine Protein Screening 04/20/2025 04/20/2024, 03/23/2024, 11/11/2023, Additional history exists SDOH Screening 04/26/2025 04/26/2024 Mammogram 05/26/2025 05/27/2023, 05/01, 05/14/2021, Additional history exists RSV Patients and Patients Aged 60 years or older (1 - 1-dose 75+ series) 07/20/2043 Influenza Vaccine Completed 12/10/2023, , 01/04/2022, Additional history exists COVID-19 Vaccine Completed 12/18/2023, 06/2021, 03/22/2021, Additional history exists HIB Vaccines Aged Out No longer eligi ble based on patient's age to complete this topic HPV Vaccines Aged Out No longer eligi ble based on patient's age to complete this topic IPV Vaccines Aged Out No longer eligi ble based on patient's age to complete this topic Meningococcal Vaccine Aged Out No mary carl eligible based on patient's age to complete this topic RSV under 20 months Aged Out No longe r eligible based on patient's age to complete this topic Rotavirus Vaccines Aged Out No longer eligible based on patient's age to complete this topic Procedures Procedure Name Priority Date/Time Associated Diagnosis Comments ECG 12-LEAD Routine 04/13/2024 2:18 PM EST Other chest pain POCT GLUCOSE Routine 04/04/2024 4:00 PM EST Type 2 diabetes mellitus without complication, without long-term current use of insulin ([facility] CT CHEST ANGIO W AND WO IV CONTRAST Routine 03/19/2024 1:44 PM EST ECG 12-LEAD Routine 03/19/2024 1:[address] CHEST WO CONTRAST Routine 02/16/2024 9:13 AM EST HEMATOXYLIN AND EOSIN STAIN Routine 02/09/2024 11:28 AM EST HM HEMOGLOBIN A1C Routine 11/18/2023 10: 40 AM EDT BI MAMMOGRAM SCREENING TOMOSYNTHESIS BILATERAL Routine 05/27/2023 9:10 AM EDT LIPID PANEL, STANDARD Routine 11/26/2021 9:36 AM EDT from Last 3 Months or Most Recently Relevant to Health Maintenance Results * ECG 12 lead (04/13/2024 2:18 PM EST) Only the most recent of2 resultswithin the time period is included. Narrative Cristian Chacon MD - 04/13/2024 2:18 PM EST Supraventricular tachycardia [id number] Cristian Martinez MD ECG ORDERABLES Fi nal Result * POCT Glucose (04/04/2024 4:00 PM EST) Glucose Blood, POC 174 60 - 200 mg/dL QC Media Lot # [id number] Lot# Expiration Date Blood Capillary blood specimen / Unknown 04/04/2024 4:00 PM EST Cristian Martinez MD POINT OF CARE TEST ENTER/EDIT ORDERABLES Final Result * CT CHEST ANGIO W AND WO IV CONTRAST (03/19/2024 1:44 PM EST) Anatomical Region Laterality Modality Computed Tomogra phy Historical Provider IMG CT PROCEDURES Final R esult * CT Chest w/o Contrast (02/16/2024 9:13 AM EST) Anatomical Region Laterality Modality Body, Chest Computed Tomogra phy Historical Provider IMG CT PROCEDURES Final R esult * Hematoxylin and Eosin Stain (02/09/2024 11:28 AM EST) 02/09/2024 11:2 8 AM EST 02/09/2024 11:49 AM EST Narrative [facility] - 02/11/2024 10:05 AM EST ----- ------- Name: Scarlett Liriano ?Age/Sex: 53/F ? : 1970 Unit#: [id number] ?? Attend Dr: Ellie Gan MD ?Re02/09/24 ?Status: DEP SDC ? Location: HO.SSS ?Disch: ? ----- ------- SPEC : [id number] ? RECD: 02/09/24 ? STATUS: ??SOUT ? REQ NUM: [id number] ? OWEN: 02/09/24 ? SUBM DR: Ellie Gan MD ? ENTERED: ??02/09/24 ?SP TYPE: Surgical ? OTHR DR: Saskia Rosas MD ? ORDERED: ??HE Stain/3, Gross Micro L4, IHC, Special st. 2, H. pylori, AB/PAS ? Diagnosis ?? Stomach, biopsy: ??Antral-type mucosa with mild chronic inactive inflammation; no ?? Helicobacter organisms seen. ?Clinical History Pre-Op Dx: ??Abd pain, dysphagia Post-Op Dx: Gastric ulcer, esophagitis, erosive gastritis ?Microscopic Description Microscopic sections examined. ??No metaplastic changes are seen, supported by AB/PAS stains; no Helicobacter organisms are seen, supported by H. pylori immunostain. ? Material Received ?? Stomach bx's ? Gross Description Received in formalin labeled ?stomach biopsies, rule out H. pylori? are 2 castaneda-pink irregular tissue fragments each measuring 0.15 cm, submitted in toto in a cassette labeled A. ??CEDS Special studies ordered and performed: Immunostain for H. pylori; AB/PAS stains Copies To: ?? Ellie Gan MD ?? [facility] ?? [address] ?? [place] [address] ?? [phone] ?? Saskia Rosas MD ?? [address] ?? [place] ?? [phone] ----- ------- Signed (signature on file) Oliver Barroso MD 02/11/24 1005 ? ----- ------- ? END OF REPORT ? us Generic External Data Provider LAB BLOOD ORDERAB LES Final Result [facility] [address] [place] [address] [phone] * BI Mammogram Screening Tomosynthesis Bilateral (05/27/2023 9:10 AM EDT) Anatomical Region Laterality Modality Breast Bilateral Mammography 05/27/2023 9:10 AM EDT Narrative 06/23/2023 5:53 AM EDT ? [facility] ? [address] ?[place] [address] ? Mammography Report ? Signed ? Patient: Liriano,Scarlett ?MR#: [id number] ?? [id number] ? : 1970 ?Acct:[id number] ? Age/Sex: 52 / F ?ADM Date: 05/27/23 ? Loc: HO.MAMMO ? Attending Dr: Cristian Martinez MD ? Ordering Physician: Cristian Chacon MD ?Res ?? ults: 1Negative ? Date of Service: 05/27/23 ?Follow Up: 1 Year From Orig ?? inal Mammogram ? Procedure(s): MM tomosynthesis screening BI ?? Accession Number(s): [id number] ? cc: Cristian Chacon MD ? EXAMINATION: ?? MM SCREENING DIGITAL BREAST TOMOSYNTHESIS, BILATERAL ? CLINICAL INFORMATION: ? Screening. Asymptomatic. ?? Patient is status post bilateral breast reduction. ? COMPARISON: ?? Mammography: This study is compared with prior exams dating back to ?? 2017. ? TECHNIQUE: ?? Digital breast tomosynthesis is performed in both the craniocaudal and ?? mediolateral oblique views along with computer-aided detection (CAD). ?? Synthesized 2D images are generated from the tomosynthesis. ? FINDINGS: ?? There are scattered areas of fibroglandular density (ACR BI-RADS breast ?? composition Category b). ? There are no significant masses, abnormal calcifications, or other ?? abnormalities. ? Post reduction changes are present in each breast. ? MM/MM tomosynthesis screening BI ?? IMPRESSION: ?? No mammographic evidence of malignancy. ? ASSESSMENT: ? BI-RADS BI-RADS 1 - Negative ? RECOMMENDATION: ?? Routine annual mammography screening. ? 1 year F/U ? This examination should not preclude the clinical evaluation of a ?? suspicious palpable abnormality. ? This patient's information was entered into a reminder system with a ?? target due date for their next mammogram. ? Dictated By: ?Stefanie Alves MD ? Signed By: ?<Electronically signed by Stefanie Alves MD in OV> ? 06/23/23 0549 ? DD/ 0910 ? TD/TT: ? Talent Rep: ? Procedure Note Donguilleter, Image - 06/23/2023 [facility] [address] [place] [address] Mammography Report Signed Patient: Scarlett LirianoMR#: [id number] : 1970Acct:[id number] Age/Sex: 52 / FADM Date: 05/27/23 Loc: HO.MAMMO Attending Dr: Cristian Martinez MD Ordering Physician: Cristian Chacon ults: 1Negative Date of Service: 05/27/23Follow Up: 1 Year From Orig inal Mammogram Procedure(s): MM tomosynthesis screening BI Accession Number(s): [id number] cc: Cristian Chacon MD EXAMINATION: MM SCREENING DIGITAL BREAST TOMOSYNTHESIS, BILATERAL CLINICAL INFORMATION: Screening. Asymptomatic. Patient is status post bilateral breast reduction. COMPARISON: Mammography: This study is compared with prior exams dating back to 2017. TECHNIQUE: Digital breast tomosynthesis is performed in both the craniocaudal and mediolateral oblique views along with computer-aided detection (CAD). Synthesized 2D images are generated from the tomosynthesis. FINDINGS: There are scattered areas of fibroglandular density (ACR BI-RADS breast composition Category b). There are no significant masses, abnormal calcifications, or other abnormalities. Post reduction changes are present in each breast. MM/MM tomosynthesis screening BI IMPRESSION: No mammographic evidence of malignancy. ASSESSMENT: BI-RADS BI-RADS 1 - Negative RECOMMENDATION: Routine annual mammography screening. 1 year F/U This examination should not preclude the clinical evaluation of a suspicious palpable abnormality. This patient's information was entered into a reminder system with a target due date for their next mammogram. Dictated By: Stefanie Alves MD Signed By: <Electronically signed by Stefanie Alves MD in OV> 06/23/23 0549 DD/ TD/TT: Talent Rep: [facility] Dejan Martinez MD IMG BI PROCEDURES Final Result * (ABNORMAL) LIPID PANEL, STANDARD (11/26/2021 9:36 AM EDT) Chol/HDLC Ratio 4.0 <5.0 (calc) [facility] Cholesterol, Total 162 <200 mg/dL [facility] HDL Cholesterol 41(L) > OR = 50 mg/dL [facility] LDL Cholesterol 102(H) mg/dL (calc) [facility] Comment: Reference range: <100 ?? Desirable range <100 mg/dL for primary prevention; ?? <70 mg/dL for patients with CHD or diabetic patients ?? with > or = 2 CHD risk factors. ?? LDL-C is now calculated using the Terri ?? calculation, which is a validated novel method providing ?? better accuracy than the Friedewald equation in the ?? estimation of LDL-C. ?? Lopez GODFREY et al. KAILEE. 2013;310(19): 0666-6088 ?? (http://education.Sajan.com/faq/CRD172) Non-HDL Cholesterol 121 <130 mg/dL (calc) [facility] Comment: For patients with diabetes plus 1 major ASCVD risk ?? factor, treating to a non-HDL-C goal of <100 mg/dL ?? (LDL-C of <70 mg/dL) is considered a therapeutic ?? option. Triglycerides 91 <150 mg/dL [facility] 11/26/2021 9:36 AM EDT Cristian Martinez MD LAB BLOOD ORDERABL ES Final Result [facility] [address] [place] [address], from Last 3 Months or Most Recently Relevant to Health Maintenance Insurance [employer] C3 Care Teams Track Repair Supervisor Relationship Specialty Start Date End Date Cristian Chacon MD [address] [place] [address] PCP - General Internal Medicine 03/17/19 Ivy Payne Forger HelperTunnel Elastic Operator Lockstitch 11/26/23
--- OUTSIDE RECORDS SUMMARY | 2024-05-02 14:18 | XMS_ITS | Encounter Summary ---
Author Organization [employer] [facility] Address [address] [place] [address] Care Team Providers Care Legal Adviser Name Role Phone Cristian Chacon MD Primary Care Prov ider Encounter Details Date Type Department Care Team (Latest Contact Info) Description 10/18/2020 Abstract [facility] CONVERSIONS Dental, Provider, DDS Social History Tobacco [...] Upcoming Encounters Date Type Department Care Team ( st Contact Info) Description 05/17/2024 1:30 PM EDT Office Visit [facility] CHC MED & PEDS [address] [place] [address] Cristian Chaocn MD [address] [place] [address] documented as of this encounter Visit Diagnoses Not on filedocumented in this encounter Care Teams Legal Adviser Relationship Specialty Start Date End Date Cristian Chacon MD [address] [place] [address] PCP - General Internal Medicine 03/17/19 Ivy Payne ReceptionDirector Regulatory Compliance 03/03/23 11/25/23 Ivy Payne Steel Spar OperatorDirector Regulatory Compliance 11/26/23 documented as of this encounter
--- OUTSIDE RECORDS SUMMARY | 2024-05-02 14:18 | XMS_ITS | Encounter Summary ---
Author Organization [employer] Address [address] [place] [address] Care Team Providers Care Director Of Property Management Name Role Phone Cristian Chacon MD Primary Care Prov ider Encounter Details Date Type Department Care Team (Late st Contact Info) Description 09/04/[address] [facility] CHC MED & PEDS [address] [place], [place] [phone] Cristian Chacon MD [address] [place] [address] Social History Tobacco Use Types Packs/Day Years [...] Description 05/17/2024 1:30 PM EDT Office Visit [facility] MED & PEDS [address] [place] [address] Cristian Chacon MD [address] [place] [address] documented as of this encounter Visit Diagnoses Not on filedocumented in this encounter Additional Health Concerns Assessment Noted Time PHQ-9 Depression Total Score: 14 024 9:49 AM EST documented as of this encounter Care Teams Director Of Property Management Relationship Specialty Start Date End Date Cristian Chacon MD [address] [place] [address] PCP - General Internal Medicine 03/17/19 Ivy Payne Station InspectorAtmospheric Physicist 03/03/23 11/25/23 Ivy Payne Geographic Information Systems DirectorAtmospheric Physicist 11/26/23 documented as of this encounter
--- OUTSIDE RECORDS SUMMARY | 2024-05-02 14:18 | XMS_ITS | Encounter Summary ---
Author Organization [employer] Address [address] 7[address] [place] [address] Care Team Providers Care Apple Thinner Name Role Phone Cristian Chacon MD Primary Care Prov ider Encounter Details Date Type Department Care Team ([facility] st Contact Info) Description 08/25/2023 Telephone [facility] CHC MED & PEDS [address] [place], [place] [phone] Cristian Chacon MD [address] [place] [address] Social History Tobacco Use Types Packs/Day Years [...] Description 05/17/2024 1:30 PM EDT Office Visit [facility] MED & PEDS [address] [place] [address] Cristian Chacon MD [address] [place] [address] documented as of this encounter Visit Diagnoses Not on filedocumented in this encounter Additional Health Concerns Assessment Noted Time PHQ-9 Depression Total Score: 14 024 9:49 AM EST documented as of this encounter Care Teams Apple Thinner Relationship Specialty Start Date End Date Cristian Chacon MD [address] [place] [address] PCP - General Internal Medicine 03/17/19 Ivy Payne Foot CutterVice President Of Talent Acquisition 03/03/23 11/25/23 Ivy Payne Home Energy Consultant SupervisorVice President Of Talent Acquisition 11/26/23 documented as of this encounter
--- OUTSIDE RECORDS SUMMARY | 2024-05-02 14:19 | XMS_ITS | Encounter Summary ---
Author Organization [employer] Address [address] [facility] 7t [place] [address] Care Team Providers Care Buildings And Grounds Director Name Role Phone Cristian Chacon MD Primary Care Prov ider Reason for Visit * Reason Comments Care Coordination Outreach Encounter Details Date Type Department Care Team (Latest Contact Info) Description 04/26/2024 Patient Outreach [facility] CHC MED & PEDS [address] [place], [place] [phone] Cristian Chacon MD [address] [place] [address] Care Coordination (Outreach) Social History Tobacco Use Types Packs/Day Years [...] AM EDT documented as of this encounter Progress Notes * Savana Rico - 04/26/2024 10:23 AM EST CHW Savana Rico, placed outbound call to patient introducing herself from [facility], in regards to offering services. Patient's name and was confirmed. Patient agrees to participate in program. Appt. for initial assessment scheduled for 04/28/24 @ 1:00 PM. Patient willneed transportation for appointments. CHW reinforced direct contact information or CM for any additional questions or concerns and extended clinic hours on Mondays and Wednesdays, and Walk-In Urgent Care Located in [facility] of [facility]. Patient provided with after-hours line for [facility], , which offer night time triage service and option to transfer to foundation relations director provider if needed. Patient verbalizes understanding, and able to repeat back to public relations writer. documented in this encounter Plan of Treatment Upcoming Encounters Date Type Department Care Team ([facility] st Contact Info) Description 05/17/2024 1:30 PM EDT Office Visit [facility] MED [facility] PEDS [address] [place], [place] [phone] Cristian Chacon MD [address] [place], [place] [phone] documented as of this encounter Visit Diagnoses Not on filedocumented in this encounter Additional Health Concerns Assessment Noted Time PHQ-9 Depression Total Score: 16 024 1:19 PM EDT documented as of this encounter Care Teams Buildings And Grounds Director Relationship Specialty Start Date End Date Cristian Chacon MD [address] [place] [address] PCP - General Internal Medicine 03/17/19 Ivy Payne Operator Bearer SystemsHalf Backer 11/26/23 documented as of this encounter
--- OUTSIDE RECORDS SUMMARY | 2024-05-02 14:19 | XMS_ITS | Clinical Summary ---
Author Organization [employer] [facility] Address [address] [place] [address] Care Team Providers Care Bicycle Designer Name Role Phone Eduarda Villeda MD Primary Care Provider [phone] Medications No known medications Social History Tobacco Use Types Packs/Day Years Used Date Smoking Tobacco: Never Assessed Intimate Partner Violence Answer Date R ecorded Fear of Current or Ex-Partner Not on file Emotionally Abused Not on file 10/23/2022 Physically Abused Not on file 10/23/2022 Sexually Abused Not on file 10/23/2022 Feel Safe at Home Not on file 10/23/2022 Comments Unknown Sex and Gender Information Value Date Recorded Sex Assigned at Not on file Legal Sex Female 2:29 PM EST Gender Identity Not on file Sexual Orientation Not on file Plan of Treatment Health Maintenance Due Date Last Done Comments Hepatitis C Screening 1970 Pap Smear 1984 DTaP/Tdap/Td (1 - Tdap) 1986 Hep B (1 of 3 - 19+ 3-dose series) 07/20/1987 Mammogram/Breast Imaging 2008 Colon Cancer Screening 2013 Pneumococcal 50+ years (1 of 1 - PCV) 2018 Zoster (Shingrix) (1 of 2) 2018 COVID-19 Vaccine ( season) 2023 03/22/2021, 07/22/2020, 07/01/2020 Influenza (#1) 2023 12/06/2019, 08/07/2018, 12/14/2017, Additional history exists HPV Vaccine Aged Out No longer eligi ble based on patient's age to complete this topic Hep A Aged Out No longer eligi ble based on patient's age to complete this topic Hib Aged Out No longer eligi ble based on patient's age to complete this topic Meningococcal ACWY Aged Out No longer eligible based on patient's age to complete this topic Insurance MEDICAID Care Teams Bicycle Designer Relationship Specialty Start Date End Date Eduarda Villeda MD [address] [address] PCP - General Internal Medicine 05/12/18
--- OUTSIDE RECORDS SUMMARY | 2024-05-02 14:19 | XMS_ITS | Encounter Summary ---
Author Organization [facility] Address [address] [place] [address] Care Team Providers Care Second Shift Supervisor Name Role Phone Cristian Chacon MD Primary Care Prov ider Reason for Visit * Reason Onset Date Comments PAC Sick/Symptoms 04/08/2024 Encounter Details Date Type Department Care Team (Late st Contact Info) Description 04/08/2024 Telephone [facility] Rheumatology Clinic [address] [place], [place] [phone] Melter Supervisor Open Hearth Furnace: Zaida Rust Telephone Intake, Staff PAC Sick/Symptoms Social History Tobacco Use Types Packs/Day Years Used Date Smoking Tobacco: Never Passive Smoke Exposure: Past Smokeless Tobacco: Never Alcohol Use Standard Drinks/Week Comments Not Currently 0 (1 standard drink = 0.6 oz pur e alcohol) Comments Unknown Sex and Gender Information Value Date Recorded Sex Assigned at Female 06/17/2023 10:04 AM EDT Legal Sex Female 11:38 AM EDT Gender Identity Not on file Sexual Orientation Not on file documented as of this encounter Miscellaneous Notes * Telephone Encounter - Juan Ramon Jay LPN - 04/13/2024 10:08 AM EST Reached out to pt via Rwandan speaking telephonic ribbing machine operator # [id number]. Pt reports that she has been experiencing transient chest pain and b/l foot pain since 03/18/2024. Pt reports that the chest pain is new and that she has an appointment with a Field Checker in [place] on 04/28/2024. Pt has been taking two 5mg tabs of Prednisone bid and 1000 mg of Tylenol at bedtime w/o relief . Pt currently rates her pain level at a 9/10 with medication. Pt only have two tabs (10mg) of Prednisone left and wants to speak to you about a treatment plan * Telephone Encounter - Ghazal Rivas LPN - 04/12/2024 3:50 PM EST aerial photographer #[id number] - LMOM for pt to call back. * Telephone Encounter - Sadia Patterson RN - 04/08/2024 12:18 PM EST Established patient of Dr. Persaud calling in reporting symptoms are not subsiding. Patient calledin the last week of March with myalgia, headaches, difficult to stand due to pain. Patient states she has been seen in the ED and ruled out covid, flu and pneumonia (unsure where). Patient looking for Dr. Persaud to call her back to discuss ongoing s/s. documented in this encounter Plan of Treatment Upcoming Encounters Date Type Department Care Team (Late st Contact Info) Description 06/01/2024 9:00 AM EDT Office Visit [facility] 4th floor Cardiology Medicine [address] [place] [address] Melter Supervisor Open Hearth Furnace: Hemal Fritz MD [address] [place] [phone] 08/02/2024 1:30 PM EDT Follow-Up [facility] Rheum Dermatology Clinic [address] [place] [address] Melter Supervisor Open Hearth Furnace: Morales Ramsey MD [address] [place] [address] 08/16/2024 2:00 PM EDT Office Visit [facility] [address] [place] [phone] Melter Supervisor Open Hearth Furnace: Juan Ramon Vallejo, Dennis Whitlock MD [address] [place] [address] Scheduled Procedures Name Priority Associated Diagnoses Date/Ti me ARTHROSCOPY, SHOULDER, WITH ROTATOR CUFF REPAIR Chronic left shoulder pain ARTHROSCOPY, SHOULDER, DEBRI RONAL, EXTENSIVE Chronic left shoulder pain ARTHROSCOPY, SHOULDER, BICEP S TENODESIS Chronic left shoulder pain documented as of this encounter Visit Diagnoses Not on filedocumented in this encounter Care Teams Second Shift Supervisor Relationship Specialty Start Date End Date Cristian Chacon MD [address] [place] [address] PCP - General 06/04/22 documented as of this encounter
--- OUTSIDE RECORDS SUMMARY | 2024-05-02 14:19 | XMS_ITS | Encounter Summary ---
Author Organization [facility] Address [address] [place] [address] Care Team Providers Care Unit Reactor Operator Name Role Phone Cristian Chacon Primary Care Provide r Reason for Visit * Reason Comments Weakness - Generalized Encounter Details Date Type Department Care Team ([facility] st Contact Info) Description 04/13/2024 10:47 PM EST - 04/14/2024 3:00 AM EST Emergency [facility] Emergency [address] [place] [id number] Seth Jason MD [address] [place] [address] URI due to influenza A virus (Primary Dx); Chest wall pain Discharge Disposition: Home or Self Care Social History Tobacco Use Types Packs/Day Years Used Date Smoking Tobacco: Never Smokeless Tobacco: Never Alcohol Use Standard Drinks/Week Comments Never 0 (1 standard drink = 0.6 oz pur e alcohol) Comments Unknown Sex and Gender Information Value Date Recorded Sex Assigned at Female 03/19/2024 3:26 PM EST Legal Sex Female 12:18 AM EST Gender Identity Female 03/19/2024 3:26 PM EST Sexual Orientation Not on file documented as of this encounter Last Filed Vital Signs Vital Sign Reading Time Taken Comments Blood Pressure 121/77 04/14/2024 1:43 AM EST Pulse 107 04/14/2024 1:43 AM EST Temperature 37.4 ??C (99.3 ??F) 04/14/2024 1:43 AM ES T Respiratory Rate 18 04/14/2024 1:43 AM EST Oxygen Saturation 93% 04/14/2024 1:43 AM EST Inhaled Oxygen Concentration - - Weight 90.7 kg (200 lb) 04/13/2024 12:36 PM EST Height 157.5 cm (5' 2 ) 04/13/2024 12:36 PM EST Body Mass Index 36.58 04/13/2024 12:36 PM EST documented in this encounter Functional Status * Are you deaf or do you have serious difficulty hearing? Answer Date of Assessment Author No 04/13/2024 10:56 PM EST Maggy Cardona RN * Are you blind or do you have serious difficulty seeing, even when wearing glasses? Answer Date of Assessment Author No 04/13/2024 10:56 PM EST Maggy Cardona RN * Do you have serious difficulty walking or climbing stairs? Answer Date of Assessment Author No 04/13/2024 10:56 PM Maggy Kline RN * Do you have serious difficulty dressing or bathing? Answer Date of Assessment Author No 04/13/2024 10:56 PM Maggy Kline RN * Because of a physical, mental, or emotional condition, do you have serious difficulty doing errandsalone such as visiting the doctor? Answer Date of Assessment Author No 04/13/2024 10:56 PM Maggy Kline RN documented as of this encounter Mental Status * Because of a physical, mental, or emotional condition, do you have serious difficulty concentrating, remembering, or making decisions? (5 years old or older) Answer Entry Date Author No 04/13/2024 10:56 PM Maggy Kline RN documented in this encounter Discharge Instructions * Discharge Instructions* LESLIE Lockhart - 04/14/2024 2:35 AM EST You were seen in the emergency today for a viral syndrome. We did lab work and tested you for multiple viruses, the results show you are positive for: Influenza A. Your chest x-ray looks good, your EKG was not concerning. Lab work did not show any concerningfindings. Take Tamiflu as directed for the full course. Take prednisone as directed for the full course. Drink plenty of fluids. Use over the counter saline nasal spray for congestion as directed as needed. Take tylenol or ibuprofen as directed as needed for pain or fever. Please follow up with your primary care physician regarding this emergency room visit. If you do not have a primary care physician, please call the [facility] at [phone] [facility] a new primary care physician. Please return to the emergency department if you develop any severe change in your symptoms, or if you experience any other new or worsening symptoms or concerns. * Attachments The following attachments cannot be sent through Care Everywhere. * Chest Pain: Musculoskeletal (Korean) * Influenza (Korean) documented in this encounter Medications at Time of Discharge ALBUTEROL INHL Inhale into the lungs. clotrimazole-bet amethasone (LOTRISONE) 1-0.05 % cream Apply topically to affected area twice daily for no more than 10 days 02/18/2017 diclofenac (VOLTAREN) 75 mg EC tablet Take 75 mg by mouth 2 times daily. docusate sodium (COLACE) 100 mg capsule Take 100 mg by mouth 2 times daily. fluticasone HFA (FLOVENT HFA) 220 mcg/actuation inhaler Inhale 1 Puff into the lungs 2 times daily. fluticasone propion-salmeter oL (Advair HFA) 230-21 mcg/actuation inhaler 02/09/2017 gabapentin (NEURONTIN) 300 mg capsule Take 300 mg by mouth 3 times daily. ketoconazole (NIZORAL) 2 % cream Apply 1 Application topically 1 (one) time each day. levothyroxine sodium (SYNTHROID ORAL) Take by mouth. loratadine (CLARITIN) 10 mg tablet 02/09/2017 LORAZEPAM ORAL Take by mouth. meclizine (ANTIVERT) 25 mg tablet 12/12/2016 metroNIDAZOLE (METROGEL) 0.75 % (37.5mg/5 gram) vaginal gel Insert vaginally at bedtime x 5 nights 02/19/2017 omeprazole (PriLOSEC) [address] capsule 12/04/2016 oxyBUTYnin (DITROPAN) 5 mg tablet Take 5 mg by mouth daily. pregabalin (LYRICA) 25 mg capsule Take 25 mg by mouth 2 times daily. salicylic acid 40 % adhesive patch,medicated Apply 1 Patch topically daily. To callus area on the right foot. 08/06/2017 SUMAtriptan (IMITREX) 50 mg tablet Take 50 mg by mouth daily as needed. May repeat dose once after 2 hours, if needed. zolpidem tartrate (AMBIEN ORAL) Take by mouth. oseltamivir (TAMIFLU) 75 mg capsule Take 1 capsule (75 mg total) by mouth every 12 (twelve) hours for 5 days. 10 capsule 04/14/2024 5 predniSONE (DELTASONE) 50 mg tablet Take 1 tablet (50 mg total) by mouth 1 (one) time each day for 5 days. 5 each 04/14/2024 5 documented as of this encounter Ordered Prescriptions Prescription Sig Dispense Quantity Refills Last Filled Start Date End Date predniSONE (DELTASONE) 50 mg tablet Take 1 tablet (50 mg total) by mouth 1 (one) time each day for 5 days. 5 each 04/14/2024 5 oseltamivir (TAMIFLU) 75 mg capsule Take 1 capsule (75 mg total) by mouth every 12 (twelve) hours for 5 days. 10 capsule 04/14/2024 5 documented in this encounter Discharge Disposition Disposition Code Departure Means Destination Comment s Home or Self Care documented in this encounter Progress Notes * Boston Lora RN - 04/14/2024 3:17 AM EST Pt discharged home, encouraged to follow up with PCP, RX sent to pharmacy. All instructions understood prior to discharge. User Support Specialist: Sophia ID #[id number] * Ambika Merino RN - 04/13/2024 12:40 PM EST Pt c/o cough, chest wall pain, headache, and nasal congestion x 4 days. * LESLIE Lockhart - 04/13/2024 12:03 PM EST Emergency Medicine Note Patient Name: Scarlett Liriano Initial Evaluation: 04/13/2024 : 1970 Patient's PCP: Juan Wylie Emergency Physician: LESLIE Lockhart History of Present Illness Chief Complaint: Chief Complaint Patient presents with Weakness - Generalized HPI: This is a 53-year-old male past med history anxiety, asthma, depression, T2DM, fibromyalgia, GERD, hypertension, SLE, migraines, among others presenting with several things including generalizedbody pain, chest pain, shortness of breath, cough, sore throat, congestion, rhinorrhea, nausea, x 2days. Patient rates pain a 9 out of 10, all over, greatest in the mid chest. Denies any worsened chest pain exertion or inspiration. Reports that even though the thermometer here did not measure a fever she does have a fever. She also upset she had 3 asthma tach, she was waiting room and that she massaged her trachea in order to provide relief which worked well. she denies any vomiting, diarrhea, melena, hematochezia, palpitations, hemoptysis, lower extremity pain or swelling. Denies contacts. States she saw her primary care provider sent to the emergency room due to her symptoms. She has notusing her inhalers at home with some relief. ROS: I have performed a ROS with the pertinent positives and negatives documented in the history ofpresent illness. Previous History Past Medical History: Diagnosis Date Anxiety Asthma Bronchitis Depression Diabetes mellitus ([facility]) Fibromyalgia Gastritis GERD (gastroesophageal reflux disease) Hypertension Lupus (systemic lupus erythematosus) ([facility]) Migraine Pneumonia Past Surgical History: Procedure Laterality Date BLADDER bladder mesh BREAST REDUCTION CARPAL TUNNEL RELEASE Left CATARACT EXTRACTION SECTION CYST REMOVAL on foot HYSTERECTOMY Social History Tobacco Use Smoking status: Never Smokeless tobacco: Never Substance Use Topics Alcohol use: Never Drug use: Never No family history on file. is allergic to aspirin, cyclobenzaprine, duloxetine, meperidine, morphine, and penicillin g. No current facility-administered medications on file prior to encounter. Current Outpatient Medications on File Prior to Encounter Medication Sig Dispense Refill ALBUTEROL INHL Inhale into the lungs. clotrimazole-betamethasone (LOTRISONE) 1-0.05 % cream Apply topically to affected area twice daily for no more than 10 days diclofenac (VOLTAREN) 75 mg EC tablet Take 75 mg by mouth 2 times daily. docusate sodium (COLACE) 100 mg capsule Take 100 mg by mouth 2 times daily. fluticasone HFA (FLOVENT HFA) 220 mcg/actuation inhaler Inhale 1 Puff into the lungs 2 times daily. fluticasone propion-salmeteroL (Advair HFA) 230-21 mcg/actuation inhaler gabapentin (NEURONTIN) 300 mg capsule Take 300 mg by mouth 3 times daily. ketoconazole (NIZORAL) 2 % cream Apply 1 Application topically 1 (one) time each day. levothyroxine sodium (SYNTHROID ORAL) Take by mouth. loratadine (CLARITIN) 10 mg tablet LORAZEPAM ORAL Take by mouth. meclizine (ANTIVERT) 25 mg tablet metroNIDAZOLE (METROGEL) 0.75 % (37.5mg/5 gram) vaginal gel Insert vaginally at bedtime x 5 nights omeprazole (PriLOSEC) [address] capsule oxyBUTYnin (DITROPAN) 5 mg tablet Take 5 mg by mouth daily. pregabalin (LYRICA) 25 mg capsule Take 25 mg by mouth 2 times daily. salicylic acid 40 % adhesive patch,medicated Apply 1 Patch topically daily. To callus area on the right foot. SUMAtriptan (IMITREX) 50 mg tablet Take 50 mg by mouth daily as needed. May repeat dose once after 2 hours, if needed. zolpidem tartrate (AMBIEN ORAL) Take by mouth. Physical Exam ED Triage Vitals Temp Heart Rate Resp BP 04/13/24 1236 04/13/24 1236 04/13/24 1236 04/13/24 1236 37.9 ??C (100.2 ??F) (!) 112 19 120/77 SpO2 Temp Source Heart Rate Source Patient Position 04/13/24 1236 04/13/24 1236 04/13/24 2301 04/13/24 1236 95 % Oral Apical Sitting BP Location FiO2 (%) 04/13/24 1236 -- Left arm GENERAL: Nontoxic, no acute stress. HEENT: No stridor, no lymphadenopathy. Normocephalic, atraumatic. NECK: Soft, supple, full ROM, Midline structures, nontender, no step-off, no deformity. No meningismus. CHEST: Heart regular rate and rhythm, no rubs, no gallops or murmurs. + Midsternal chest wall tenderness to palpation PULMONARY: Clear to auscultation bilaterally without any adventitious lung sounds. No increased work of breathing, speaking full sentences. No crackles. ABDOMINAL: Soft, nondistended nontender with positive bowel sounds. No rebound, no guarding. : Deferred. MUSCULOSKELETAL: Normal tone, moves all extremity spontaneously. She has 5 and 5 motor strength testing of the extremities however will not sit up in bed during exam stating she is too weak. NEURO: Alert and oriented x3, Cranial nerves II through XII are intact, extraocular motions are intact. PSYCHIATRIC: Normal affect, fluid speech, good eye contact and appropriate demeanor. Results Labs Reviewed RESPIRATORY VIRUS PANEL MOLECULAR STUDY - Abnormal Result Value Adenovirus Detection by PCR Not Detected Influenza B PCR Not Detected Coronavirus 229E Not Detected Coronavirus HKU1 Not Detected Coronavirus OC43 Not Detected Coronavirus NL63 Not Detected Parainfluenza Virus 1 Not Detected Parainfluenza Virus 2 Not Detected Parainfluenza Virus 3 Not Detected Parainfluenza Virus 4 Not Detected RSV PCR Not Detected Human Metapneumovirus A and B Not Detected Rhinovirus/Enterovirus Not Detected Bordetella pertussis Not Detected Bordetella parapertussis Not Detected Influenza A H3 Detected (*) Mycoplasma pneumo by PCR Not Detected Chlamydia pneumoniae Not Detected SARS COV-2 Not Detected Narrative: Testing was performed using the [employer] Respiratory Pathogen PCR Assay. All results must be correlated with the clinical findings. Results should not be used as the sole basis for diagnosis. False Negative results may occur from the presence of sequence variants in the region targeted by the assay or the presence of inhibitors. Results may be affected by concurrent antiviral/antimicrobial therapy or levels of organisms that are below the limit of detection. COMPREHENSIVE METABOLIC PANEL - Abnormal Sodium 135 Potassium 4.2 Chloride 101 CO2 29 Anion Gap 5 Glucose 84 BUN 23 Creatinine 0.84 eGFR 82 BUN/Creatinine Ratio 27.4 Calcium 9.0 AST (SGOT) 20 ALT (SGPT) 16 Alkaline Phosphatase 54 Total Protein 7.1 Albumin 3.1 (*) Total Bilirubin 0.4 CBC WITH AUTO DIFFERENTIAL - Abnormal WBC 5.7 RBC 4.10 Hemoglobin 11.9 Hematocrit 37.2 MCV 90.7 MCH 29.0 MCHC 32.0 RDW 13.9 Platelets 326 MPV 9.3 NRBC 0.0 NRBC Absolute 0.00 Neutrophils Relative 80.1 Lymphocytes Relative 11.2 Monocytes Relative 3.9 Eosinophils Relative 3.5 Basophils Relative 0.4 Immature Granulocytes Relative 0.9 Neutrophils Absolute 4.53 Lymphocytes Absolute 0.63 (*) Monocytes Absolute 0.22 Eosinophils Absolute 0.20 Basophils Absolute 0.02 Immature Granulocytes Absolute 0.05 (*) TROPONIN I HIGH SENSITIVITY - Normal High Sensitivity Troponin I 9 Narrative: High levels of biotin in samples may falsely decrease hsTroponin values. Use caution when interpreting hsTroponin results in patients taking biotin who exhibit renal impairment (eGFR <60) or in patients taking more than 20 mg/day of biotin. LIPASE - Normal Lipase 58 CBC AND DIFFERENTIAL Narrative: The following orders were created for panel order CBC and differential. Procedure Abnormality Status --------- ------ CBC auto differential[[id number]] Abnormal Final result Please view results for these tests on the individual orders. Abnormal Labs Reviewed RESPIRATORY VIRUS PANEL MOLECULAR STUDY - Abnormal; Notable for the following components: Result Value Influenza A H3 Detected (*) All other components within normal limits Narrative: Testing was performed using the [employer] Respiratory Pathogen PCR Assay. All results must be correlated with the clinical findings. Results should not be used as the sole basis for diagnosis. False Negative results may occur from the presence of sequence variants in the region targeted by the assay or the presence of inhibitors. Results may be affected by concurrent antiviral/antimicrobial therapy or levels of organisms that are below the limit of detection. COMPREHENSIVE METABOLIC PANEL - Abnormal; Notable for the following components: Albumin 3.1 (*) All other components within normal limits CBC WITH AUTO DIFFERENTIAL - Abnormal; Notable for the following components: Lymphocytes Absolute 0.63 (*) Immature Granulocytes Absolute 0.05 (*) All other components within normal limits XR Chest 2 Views (Results Pending) I have discussed the incidental/abnormal imaging and/or lab abnormalities with the patient and haveinstructed them the need for further evaluation and workup with their primary care doctor. I have provided the patient with a paper copy of the abnormality. The laboratory results, imaging results and other diagnostic exam results were reviewed in the EMR. EKG Interpretation Critical Care Time None Differential Diagnosis Viral syndrome Pneumonia Influenza Atypical ACS COVID-19 Asthma exacerbation ? Medical Decision Making Medications acetaminophen (TYLENOL) tablet 1,000 mg (1,000 mg oral Given 04/13/24 1243) sodium chloride 0.9 % bolus 1,000 mL (1,000 mL intravenous New Bag 04/14/2456) ipratropium-albuteroL (DUONEB) 0.5-2.5 mg/3 mL nebulizer solution 3 mL (3 mL nebulization Given 04/14/2456) methylPREDNISolone sodium succ (SOLU-Medrol) injection 125 mg (125 mg intravenous Given 04/14/2457) ED Course as of 04/14/24237 [facility] Apr 13, 2024 2346 Patient seen and evaluated, she is stable, nontoxic-appearing, psych tachycardic at 102, presenting with several complaints including whole body pain, chest pain, shortness of breath, nausea, congestion, sore throat, cough. She has been in the waiting room for 10 hours at this point, she remained stable, positive for flu A. Obtain lab workup, EKG, chest x-ray, give IV fluids, Solu-Medrol. [YB] Tala Apr 14, 2024 0159 Chest x-ray appears clear on my preliminary individual interpretation. EKG is nonischemic, initial troponin of 9, I have a very low suspicion for ACS at this time, she is low risk on the heart score will defer second troponin. Lab workup otherwise largely unremarkable, patient is feeling symptomatically improved, anticipate discharge with symptomatic management of flu A, supportive care, close PCP follow-up and strict return precaution. [YB] ED Course User Index [YB] LESLIE Lockhart Clinical Impressions as of 04/14/24237 URI due to influenza A virus Chest wall pain Procedures Procedures Diagnosis 1. URI due to influenza A virus 2. Chest wall pain Disposition Discharge ED Prescriptions Medication Sig Dispense Start Date End Date Auth. Provider oseltamivir (TAMIFLU) 75 mg capsule Take 1 capsule (75 mg total) by mouth every 12 (twelve) hours for 5 days. 10 capsule 04/14/2024 04/19/2024 LESLIE Lockhart predniSONE (DELTASONE) 50 mg tablet Take 1 tablet (50 mg total) by mouth 1 (one) time each day for 5 days. 5 each 04/14/2024 04/19/2024 LESLIE Lockhart Physician Attestation LESLIE Lockhart 04/14/24 0040 LESLIE Lockhart 04/14/24 0238 Cosigned by Ashia Bell MD at 04/15/2024 7:41 AM EST documented in this encounter Plan of Treatment Not on file documented as of this encounter Procedures Procedure Name Priority Date/Time Associated Diagnosis Comments TROPONIN I HIGH SENSITIVITY STAT 04/14/2024 12:55 AM EST CBC WITH AUTO DIFFERENTIAL STAT 04/14/2024 12:55 AM EST CBC AND DIFFERENTIAL STAT 04/14/2024 12:55 AM EST LIPASE STAT 04/14/2024 12:55 AM EST COMPREHENSIVE METABOLIC PANEL STAT 04/14/2024 12:55 AM EST ECG 12-LEAD STAT 04/14/2024 12:41 AM EST ECG ANNOTATED 04/14/2024 XR CHEST 2 VIEWS STAT 04/13/2024 11:5 5 PM EST RESPIRATORY VIRUS PANEL MOLECULAR STUDY STAT 04/13/2024 1:02 PM EST documented in this encounter Results * (ABNORMAL) CBC auto differential (04/14/2024 12:55 AM EST) WBC 5.7 4.8 - 10.8 K/mcL LAB HEMETOLOGY METHOD 04/14/2024 1:27 AM EST [facility] RBC 4.10 3.80 - 4.80 M/mcL LAB HEMETOLOGY METHOD 04/14/2024 1:27 AM EST [facility] Hemoglobin 11.9 11.5 - 16.0 g/dL LAB HEMETOLOGY METHOD 04/14/2024 1:27 AM [facility] Hematocrit 37.2 35.0 - 47.0 % LAB HEMETOLOGY METHOD 04/14/2024 1:27 AM [facility] MCV 90.7 79.0 - 98.0 FL LAB HEMETOLOGY METHOD 04/14/2024 1:27 AM [facility] MCH 29.0 27.0 - 32.0 pcg LAB HEMETOLOGY METHOD 04/14/2024 1:27 AM [facility] MCHC 32.0 32.0 - 37.0 g/dL LAB HEMETOLOGY METHOD 04/14/2024 1:27 AM [facility] RDW 13.9 11.0 - 15.0 % LAB HEMETOLOGY METHOD 04/14/2024 1:27 AM [facility] Platelets 326 130 - 400 K/mcL LAB HEMETOLOGY METHOD 04/14/2024 1:27 AM [facility] MPV 9.3 7.0 - 11.0 FL LAB HEMETOLOGY METHOD 04/14/2024 1:27 AM [facility] NRBC 0.0 <1.0 % LAB HEMETOLOGY METHOD 04/14/2024 1:27 AM [facility] NRBC Absolute 0.00 <0.10 K/mcL LAB HEMETOLOGY METHOD 04/14/2024 1:27 AM [facility] Neutrophils Relative 80.1 % LAB HEMETOLOGY METHOD 04/14/2024 1:27 AM [facility] Lymphocytes Relative 11.2 % LAB HEMETOLOGY METHOD 04/14/2024 1:27 AM [facility] Monocytes Relative 3.9 % LAB HEMETOLOGY METHOD 04/14/2024 1:27 AM [facility] Eosinophils Relative 3.5 % LAB HEMETOLOGY METHOD 04/14/2024 1:27 AM EST [facility] Basophils Relative 0.4 % LAB HEMETOLOGY METHOD 04/14/2024 1:27 AM [facility] Immature Granulocytes Relative 0.9 % LAB HEMETOLOGY METHOD 04/14/2024 1:27 AM [facility] Neutrophils Absolute 4.53 1.50 - 7.00 K/mcL LAB HEMETOLOGY METHOD 04/14/2024 1:27 AM EST [facility] Lymphocytes Absolute 0.63(L) 1.00 - 5.00 K/mcL LAB HEMETOLOGY METHOD 04/14/2024 1:27 AM EST [facility] Monocytes Absolute 0.22 0.20 - 1.00 K/mcL LAB HEMETOLOGY METHOD 04/14/2024 1:27 AM [facility] Eosinophils Absolute 0.20 0.00 - 0.50 K/mcL LAB HEMETOLOGY METHOD 04/14/2024 1:27 AM EST [facility] Basophils Absolute 0.02 0.00 - 0.20 K/mcL LAB HEMETOLOGY METHOD 04/14/2024 1:27 AM [facility] Immature Granulocytes Absolute 0.05(H) 0.00 - 0.03 K/mcL LAB HEMETOLOGY METHOD 04/14/2024 1:27 AM [facility] Blood Venous blood specimen / Unknown Venipuncture / Unknown 04/14/2024 12:55 AM EST 04/14/2024 1:22 AM EST us Ashley NELSON LAB BLOOD ORDERABLES Final Resul t [facility] [address] [place] [address], * Troponin I high sensitivity (04/14/2024 12:55 AM EST) High Sensitivity Troponin I 9 <=54 ng/L LAB CHEMISTRY METHOD 04/14/2024 1:47 AM EST [facility] Blood Venous blood specimen / Unknown Venipuncture / Unknown 04/14/2024 12:55 AM EST 04/14/2024 1:22 AM EST Narrative [facility] - 04/14/2024 1:47 AM EST High levels of biotin in samples may falsely decrease hsTroponin values. ??Use caution when interpreting hsTroponin results in patients taking biotin who exhibit renal impairment (eGFR <60) or in patients taking more than 20 mg/day of biotin. Ashley Melo ID LAB BLOOD ORDERABLES Final Resul t Performing Organization Address [facility] Co de Phone Number [facility] [address] [place] [address], [place] [phone] * Lipase (04/14/2024 12:55 AM EST) Lipase 58 13 - 75 unit/L LAB CHEMISTRY METHOD 04/14/2024 2:14 AM EST [facility] Blood Venous blood specimen / Unknown Venipuncture / Unknown 04/14/2024 12:55 AM EST 04/14/2024 1:22 AM EST [facility] LAB BLOOD ORDERABLES Final Resul t Performing Organization Address [facility]/ZIP Co de Phone Number [facility] [address] [place] [address], [place] [phone] * (ABNORMAL) Comprehensive metabolic panel (04/14/2024 12:55 AM EST) Sodium 135 133 - 145 mmol/L LAB CHEMISTRY METHOD 04/14/2024 2:14 AM EST [facility] Potassium 4.2 3.5 - 5.5 mmol/L LAB CHEMISTRY METHOD 04/14/2024 2:14 AM EST [facility] Chloride 101 96 - 110 mmol/L LAB CHEMISTRY METHOD 04/14/2024 2:14 AM [facility] CO2 29 21 - 32 mmol/L LAB CHEMISTRY METHOD 04/14/2024 2:14 AM [facility] Anion Gap 5 3 - 11 LAB CHEMISTRY METHOD 04/14/2024 2:14 AM [facility] Comment:Rechecked. TB 2-13-2 5 Glucose 84 70 - 100 mg/dL LAB CHEMISTRY METHOD 04/14/2024 2:14 AM [facility] BUN 23 5 - 25 mg/dL LAB CHEMISTRY METHOD 04/14/2024 2:14 AM [facility] Creatinine 0.84 0.50 - 1.10 mg/dL LAB CHEMISTRY METHOD 04/14/2024 2:14 AM [facility] eGFR 82 >=60 mL/min/1. 73m2 LAB CHEMISTRY METHOD 04/14/2024 2:14 AM [facility] Comment:Calculation based on the??Chronic Kidney Disease Epidemiology Collaboration (CKD-EPI) equation refit??without adjustment for race. BUN/Creatinine Ratio 27.4 LAB CHEMISTRY METHOD 04/14/2024 2:14 AM [facility] Calcium 9.0 8.5 - 10.5 mg/dL LAB CHEMISTRY METHOD 04/14/2024 2:14 AM [facility] LAB AST (SGOT) 20 10 - 42 unit/L LAB CHEMISTRY METHOD 04/14/2024 2:14 AM [facility] ALT (SGPT) 16 10 - 60 unit/L LAB CHEMISTRY METHOD 04/14/2024 2:14 AM [facility] Alkaline Phosphatase 54 42 - 121 unit/L LAB CHEMISTRY METHOD 04/14/2024 2:14 AM [facility] Total Protein 7.1 6.0 - 8.0 g/dL LAB CHEMISTRY METHOD 04/14/2024 2:14 AM [facility] Albumin 3.1(L) 3.2 - 5.0 g/dL LAB CHEMISTRY METHOD 04/14/2024 2:14 AM EST [facility] Total Bilirubin 0.4 0.0 - 1.4 mg/dL LAB CHEMISTRY METHOD 04/14/2024 2:14 AM EST [facility] Blood Venous blood specimen / Unknown Venipuncture / Unknown 04/14/2024 12:55 AM EST 04/14/2024 1:22 AM EST [facility] ID LAB BLOOD ORDERABLES Final Resul t [facility]) [facility] [address] [place] [address], [place] [phone] * ECG 12 lead (04/14/2024 12:41 AM EST) Ventricular Rate ECG 102 BPM GEMUSE Atrial Rate 102 BPM GEMUSE P-R Interval 118 ms GEMUSE QRS Duration 66 ms GEMUSE Q-T Interval 326 ms GEMUSE QTc 424 ms GEMUSE P Wave [place] 37 degrees GEMUSE R [place] 15 degrees GEMUSE T [place] 29 degrees GEMUSE ECG Interpretation Sinus tachycardia Low voltage QRS Borderline ECG When compared with ECG of 19-MAR-2024 13:38, No significant change was found Confirmed by KIMBERLY WARNER ([id number]) on 04/17/2024 8:42:22 AM GEMUSE 04/14/2024 12:4 1 AM EST 04/17/2024 8:42 AM EST [employer] [facility] ECG ORDERABLES Final Result GEMUSE * ECG-Annotated (04/14/2024) Provider Onbase MD ECG ORDERABLES Final Result * XR Chest 2 Views (04/13/2024 11:55 PM EST) Anatomical Region Laterality Modality Body Radiographic Amanda ging 04/14/2024 7:57 AM EST Impressions 04/14/2024 7:59 AM EST No pneumonia or edema. -------- FINAL REPORT -------- Dictated By: Peewee Rob Dictated Date: 04/14/2024 07:57 ET Assigned Physician: Peewee Rob Reviewed and Electronically Signed By: Peewee Rob Signed Date: 04/14/2024 07:59 ET Workstation ID: [id number] Transcribed By: Self Edit Transcribed Date: 04/14/2024 07:57 ET Narrative 04/14/2024 7:59 AM EST EXAMINATION: CHEST CLINICAL INFORMATION: Cough COMPARISON: 03/19/2024 TECHNIQUE: 2 views of the chest FINDINGS: The cardiac size is top normal but unchanged. No mediastinal or hilar mass. No alveolar edema. No dense focal pneumonia or major zone of atelectasis. No pneumothorax or significant pleural fluid. Osteopenia. Previous cervical instrumentation. Procedure Note Peewee Rob MD - 04/14/2024 EXAMINATION: CHEST CLINICAL INFORMATION: Cough COMPARISON: 03/19/2024 TECHNIQUE: 2 views of the chest FINDINGS: The cardiac size is top normal but unchanged. No mediastinal or hilarmass. No alveolar edema. No dense focal pneumonia or major zone ofatelectasis. No pneumothorax or significant pleural fluid. Osteopenia. Previous cervical instrumentation. IMPRESSION: No pneumonia or edema. -------- FINAL REPORT -------- Dictated By: Peewee Rob Dictated Date: 04/14/2024 07:57 ET Assigned Physician: Peewee Rob Reviewed and Electronically Signed By: Peewee Rob Signed Date: 04/14/2024 07:59 ET Workstation ID: [id number] Transcribed By: Self Edit Transcribed Date: 04/14/2024 07:57 ET Seth Jason MD IMG XR PROCEDURES Final Result * (ABNORMAL) Respiratory virus panel molecular study (04/13/2024 1:02 PM EST) Pathologist [facility] [place] Adenovirus Detection by PCR Not Detected Not Detected LAB MICROBIOLOGY METHOD 04/13/2024 2:09 PM [facility] Influenza B PCR Not Detected Not Detected LAB MICROBIOLOGY METHOD 04/13/2024 2:09 PM [facility] Coronavirus 229E Not Detected Not Detected LAB MICROBIOLOGY METHOD 04/13/2024 2:09 PM [facility] Coronavirus HKU1 Not Detected Not Detected LAB MICROBIOLOGY METHOD 04/13/2024 2:09 PM [facility] Coronavirus OC43 Not Detected Not Detected LAB MICROBIOLOGY METHOD 04/13/2024 2:09 PM [facility] Coronavirus NL63 Not Detected Not Detected LAB MICROBIOLOGY METHOD 04/13/2024 2:09 PM [facility] Parainfluenza Virus 1 Not Detected Not Detected LAB MICROBIOLOGY METHOD 04/13/2024 2:09 PM [facility] Parainfluenza Virus 2 Not Detected Not Detected LAB MICROBIOLOGY METHOD 04/13/2024 2:09 PM [facility] Parainfluenza Virus 3 Not Detected Not Detected LAB MICROBIOLOGY METHOD 04/13/2024 2:09 PM [facility] Parainfluenza Virus 4 Not Detected Not Detected LAB MICROBIOLOGY METHOD 04/13/2024 2:09 PM [facility] RSV PCR Not Detected Not Detected LAB MICROBIOLOGY METHOD 04/13/2024 2:09 PM [facility] Human Metapneumovirus A and B Not Detected Not Detected LAB MICROBIOLOGY METHOD 04/13/2024 2:09 PM [facility] Rhinovirus/Entero virus Not Detected Not Detected LAB MICROBIOLOGY METHOD 04/13/2024 2:09 PM [facility] Bordetella pertussis Not Detected Not Detected LAB MICROBIOLOGY METHOD 04/13/2024 2:09 PM [facility] Bordetella parapertussis Not Detected Not Detected LAB MICROBIOLOGY METHOD 04/13/2024 2:09 PM [facility] Influenza A H3 Detected(A ) Not Detected LAB MICROBIOLOGY METHOD 04/13/2024 2:09 PM EST [facility] Mycoplasma pneumo by PCR Not Detected Not Detected LAB MICROBIOLOGY METHOD 04/13/2024 2:09 PM EST [facility] Chlamydia pneumoniae Not Detected Not Detected LAB MICROBIOLOGY METHOD 04/13/2024 2:09 PM [facility] SARS COV-2 Not Detected Not Detected LAB MICROBIOLOGY METHOD 04/13/2024 2:09 PM [facility] Swab Both anterior nares / Unknown Non-blood Collection / Unknown 04/13/2024 1:02 PM EST 04/13/2024 1:02 PM EST [facility] - 04/13/2024 2:09 PM EST Testing was performed using the [employer] Respiratory Pathogen PCR Assay. All results must be correlated with the clinical findings. Results should not be used as the sole basis for diagnosis. False Negative results may occur from the presence of sequence variants in the region targeted by the assay or the presence of inhibitors. Results may be affected by concurrent antiviral/antimicrobial therapy or levels of organisms that are below the limit of detection. Kely NELSON LAB MICROBIOLOGY - GEN ERAL ORDERABLES Final Result [facility] [address] [place] [address], documented in this encounter Visit Diagnoses Diagnosis URI due to influenza A virus- Primary Chest wall pain Painful respiration documented in this encounter Administered Medications Inactive Administered Medications - up to 3 most recent administrations Medication Order MAR Action Action Date Dose Rate Site acetaminophen (TYLENOL) tablet 1,000 mg 1,000 mg, oral, Once, On Thu04/13/24 at 1241, For 1 dose Given 04/13/2024 12:43 PM EST 1,000 mg ipratropium-albuteroL (DUONEB) 0.5-2.5 mg/3 mL nebulizer solution 3 mL 3 mL, nebulization, Once, On Thu04/13/24 at 2346, For 1 dose Given 04/14/2024 12:57 AM EST 3 mL methylPREDNISolone sodium succ (SOLU-Medrol) injection 125 mg 125 mg, intravenous, Once, On Thu04/13/24 at 2346, For 1 dose, Reconstitute each 125 mg vial with 2 mL sterile water for injection to a concentration of 62.5 mg/mL. Given 04/14/2024 12:58 AM EST 125 mg sodium chloride 0.9 % bolus 1,000 mL 1,000 mL, intravenous, at 2,000 mL/hr, Administer over 30 Minutes, Once, On Thu04/13/24 at 2346, For 1 dose New Bag 04/14/2024 12:57 AM EST 1,000 mL 2000 mL/hr documented in this encounter Active and Recently Administered Medications Times are shown in EST. Scheduled Medication Order 04/12/2024 04/13/2024 04/14/2024 acetaminophen (TYLENOL) tablet 1,000 mg (COMPLETED) 1,000 mg, oral, Once, On Thu04/13/24 at 1241, For 1 dose 1243 (Given - Provider: Ambika Merino RN) ipratropium-albuteroL (DUONEB) 0.5-2.5 mg/3 mL nebulizer solution 3 mL (COMPLETED) 3 mL, nebulization, Once, On Thu04/13/24 at 2346, For 1 dose 0057 (Given - Provid er: Boston Lora RN) methylPREDNISolone sodium succ (SOLU-Medrol) injection 125 mg (COMPLETED) 125 mg, intravenous, Once, On Thu04/13/24 at 2346, For 1 dose, Reconstitute each 125 mg vial with 2 mL sterile water for injection to a concentration of 62.5 mg/mL. 0058 (Given - Provid er: Boston Lora RN) sodium chloride 0.9 % bolus 1,000 mL (COMPLETED) 1,000 mL, intravenous, at 2,000 mL/hr, Administer over 30 Minutes, Once, On Thu04/13/24 at 2346, For 1 dose 0057 (New Bag - Provider: Boston Lora RN)0230 (Stopped - Provider: Boston Lora RN) documented in this encounter Additional Health Concerns Infection Onset Date Last Indicated Resolved Time Influenza 04/13/2024 04/13/2024 documented as of this encounter Care Teams Unit Reactor Operator Relationship Specialty Start Date End Date Cristian Chacon [address] [place], [place] PCP - General Internal Medicine 10/17/20 documented as of this encounter
--- OUTSIDE RECORDS SUMMARY | 2024-05-02 14:19 | XMS_ITS | Encounter Summary ---
Author Organization [facility] Address [address] [place] [address] Care Team Providers Care Mini Shifter Name Role Phone Cristian Chacon MD Primary Care Prov ider Reason for Visit * Reason Onset Date Comments PAC Provider Requested Call Back Dr Persaud Encounter Details Date Type Department Care Team ([facility] st Contact Info) Description 03/22/2024 Telephone [facility] Rheumatology Clinic [address], [place] [phone] First Officer And Flight Instructor: Zaida Rust Telephone Intake, Staff PAC Provider Requested Call Back Dr Persaud Social History Tobacco Use Types Packs/Day Years [...] encounter Miscellaneous Notes * Telephone Encounter - Nyla Mason RN - 03/22/2024 3:04 PM EST I called the contact number available for Scarlett utilizing the code-laboration line air traffic controller services fleet administrator. I was unable to reach her and a voicemail and callback number. * Telephone Encounter - Linda Sanchez CMA - 03/22/2024 9:05 AM EST Pt is requesting an appt with Dr Persaud. I offered with Miguel Hernandez NP and she said no to send a message to see if Dr Persaud as she would like him to call her. She is in a lot of pain, she can't get out of bed her feet are swollen, pain in legs are unbearableshe has to use a walker to get around, she has to ask for assistance to get out of bed as well as her hands are painful and swollen. She is crying due to the pain. Please call pt back at [phone] documented in this encounter Plan of Treatment Upcoming Encounters Date Type Department Care Team (Late st Contact Info) Description 06/01/2024 9:00 AM EDT Office Visit [facility] Building 4th floor Cardiology Medicine [address] [place] [phone] First Officer And Flight Instructor: Hemal Fritz MD [address] [place] [phone] 08/02/2024 1:30 PM EDT Follow-Up [facility] Rheum Dermatology Clinic [address] [phone] First Officer And Flight Instructor: Morales Ramsey MD [address] [place] [address] 08/16/2024 2:00 PM EDT Office Visit [facility] Lung and Allergy Center [address] [place] [address] First Officer And Flight Instructor: Juan Ramon Vallejo, Dennis Whitlock MD [address] [place] [phone] Scheduled Procedures Name Priority Associated Diagnoses Date/Ti me ARTHROSCOPY, SHOULDER, WITH ROTATOR CUFF REPAIR Chronic left shoulder pain ARTHROSCOPY, SHOULDER, DEBRI RONAL, EXTENSIVE Chronic left shoulder pain ARTHROSCOPY, SHOULDER, BICEP S TENODESIS Chronic left shoulder pain documented as of this encounter Visit Diagnoses Not on filedocumented in this encounter Care Teams Mini Shifter Relationship Specialty Start Date End Date Cristian Chacon MD [address] [place] [address] PCP - General 06/04/22 documented as of this encounter
--- OUTSIDE RECORDS SUMMARY | 2024-05-02 14:19 | XMS_ITS | Encounter Summary ---
Author Organization [facility] Address [address] [place] [address] Care Team Providers Care Manager Nicu Name Role Phone Cristian Chacon MD Primary Care Prov ider Encounter Details Date Type Department Care Team (Late Contact Info) Description 03/25/2024 Telephone [facility] Rheumatology [address] [place] [address] Drier And Evaporator Operator: Alonzo Caputo MD [address] [place] [phone] Social History Tobacco Use Types Packs/Day Years [...] on file documented as of this encounter Plan of Treatment Upcoming Encounters Date Type Department Care Team (Late Contact Info) Description 06/01/2024 9:00 AM EDT Office Visit [facility] 4th floor Cardiology Medicine [address] [place] [address] Drier And Evaporator Operator: Hemal Fritz MD [address] [place] [phone] 08/02/2024 1:30 PM EDT Follow-Up [facility] Rheum Dermatology Clinic [address] [place] [address] Drier And Evaporator Operator: Morales Ramsey MD [address] [place] [address] 08/16/2024 2:00 PM EDT Office Visit [facility] Lung [facility] All[facility] Center [address] [place] [address] Drier And Evaporator Operator: Dennis Laguna MD [address] [place] [address] Scheduled Procedures Name Priority Associated Diagnoses Date/Ti me ARTHROSCOPY, SHOULDER, WITH ROTATOR CUFF REPAIR Chronic left shoulder pain ARTHROSCOPY, SHOULDER, DEBRI RONAL, EXTENSIVE Chronic left shoulder pain ARTHROSCOPY, SHOULDER, BICEP S TENODESIS Chronic left shoulder pain documented as of this encounter Visit Diagnoses Not on filedocumented in this encounter Care Teams Manager Nicu Relationship Specialty Start Date End Date Cristian Chacon MD [address] [place] [phone] PCP - General 06/04/22 documented as of this encounter
--- OUTSIDE RECORDS SUMMARY | 2024-05-02 14:19 | XMS_ITS | Encounter Summary ---
Author Organization [employer] Address [address] [place] [address] Care Team Providers Care Manager Heart Name Role Phone Cristian Chacon MD Primary Care Prov ider Encounter Details Date Type Department Care Team (Latest Contact Info) Description 04/26/2024 Travel Social History Tobacco Use Types Packs/Day Years [...] Description 05/17/2024 1:30 PM EDT Office Visit [facility] MED & PEDS [address] [place] [address] Cristian Chacon MD [address] [place] [address] documented as of this encounter Visit Diagnoses Not on filedocumented in this encounter Additional Health Concerns Assessment Noted Time PHQ-9 Depression Total Score: 16 024 1:19 PM EDT documented as of this encounter Care Teams Manager Heart Relationship Specialty Start Date End Date Cristian Chacon MD [address] [place] [address] PCP - General Internal Medicine 03/17/19 Ivy Payne Compliance AuditorGluer Machine Operator 11/26/23 documented as of this encounter
--- OUTSIDE RECORDS SUMMARY | 2024-05-02 14:19 | XMS_ITS | Encounter Summary ---
Author Organization [employer] Address [address] [place] [address] Care Team Providers Care Ladies Suit Operator Name Role Phone Cristian Chacon MD Primary Care Prov ider Encounter Details Date Type Department Care Team ([facility] st Contact Info) Description 04/26/2024 11:00 AM EST Office Visit [facility] MED & PEDS [address] [place], [place] [phone] Aida Rae MD [address] [place], [place] [phone] Moderate persistent asthma without complication (Primary Dx) Social History Tobacco Use Types Packs/Day Years [...] AM EDT documented as of this encounter Last Filed [...] (200 lb) 04/26/2024 11:10 AM EST Height - - Body Mass Index 36.58 04/04/2024 3:49 PM EST documented in this encounter Progress Notes * Aida Rae MD - 04/26/2024 11:00 AM EST Subjective Patient ID: Scarlett Liriano is a 53 y.o. female who presents for No chief complaint on file.. Asthma She complains of chest tightness. There is no cough, difficulty breathing, frequent throat clearing, hemoptysis, hoarse voice, shortness of breath, sputum production or wheezing. Pertinent negatives include no chest pain or headaches. Her symptoms are aggravated by change in weather. Her symptoms are alleviated by nothing. She reports minimal improvement on treatment. Her symptoms are not alleviated by beta-agonist. Her past medical history is significant for asthma. She is not using Advair Review of Systems Constitutional: Negative. HENT: Negative for hoarse voice. Respiratory: Positive for chest tightness. Negative for cough, hemoptysis, sputum production, shortness of breath and wheezing. Cardiovascular: Negative for chest pain and palpitations. Gastrointestinal: Negative. Genitourinary: Negative. Musculoskeletal: Negative for neck pain. Neurological: Negative for headaches. Objective Physical Exam Constitutional: Appearance: Normal appearance. Cardiovascular: Rate and Rhythm: Normal rate and regular rhythm. Pulses: Normal pulses. Heart sounds: Normal heart sounds. Pulmonary: Effort: Pulmonary effort is normal. Breath sounds: Decreased breath sounds present. No wheezing. Neurological: Mental Status: She is alert. Assessment/Plan Diagnoses and all orders for this visit: Moderate persistent asthma without complication Comments: Started On short course of prednisone 20mg for 5 days Advair added to the regimen Advised steam inhaltion Other orders - fluticasone-salmeterol (Advair HFA) 230-21 MCG/ACT inhaler; Inhale 2 puffs in the morning and at bedtime. - predniSONE (Deltasone) 20 MG tablet; Take 1 tablet (20 mg) by mouth Once per day for 5 days. documented in this encounter Plan of Treatment Upcoming Encounters Date Type Department Care Team (Late st Contact Info) Description 05/17/2024 1:30 PM EDT Office Visit [facility] MED & PEDS [address] [place] [address] Cristian Chacon MD [address] [place] [address] documented as of this encounter Visit Diagnoses Diagnosis Moderate persistent asthma without complication- Primary documented in this encounter Additional Health Concerns Assessment Noted Time PHQ-9 Depression Total Score: 16 024 1:19 PM EDT documented as of this encounter Care Teams Ladies Suit Operator Relationship Specialty Start Date End Date Cristian Chacon MD [address] [place] [address] PCP - General Internal Medicine 03/17/19 Ivy Payne Director Of Cardiac RehabilitationNuclear Pharmacist 11/26/23 documented as of this encounter
--- OUTSIDE RECORDS SUMMARY | 2024-05-02 14:19 | XMS_ITS | Encounter Summary ---
Author Organization [employer] Address [address] [place] [address] Care Team Providers Care Surg Rn Name Role Phone Cristian Chacon MD Primary Care Prov ider Reason for Visit * Reason Onset Date Comments ER Follow-up 04/14/2024 Encounter Details Date Type Department Care Team ([facility] st Contact Info) Description 04/14/2024 Telephone [facility] MEDICINE [address] [place] [address] Cristian Chacon MD [address] [place] [address] ER Follow-up Social History Tobacco Use Types Packs/Day Years [...] encounter Miscellaneous Notes * Telephone Encounter - Tara Conley RN - 04/14/2024 12:34 PM EST [place] [id number] to status check after ER visit for asthma attack. Pt states that she was diagnosed with the flu and she is on medication including prednisone. Pt scheduled for asthma followup with Dr. Rae on 04/26/24 at 11 am. Advised pt to return call to office with any concerns or worsening symptoms. Pt agrees to plan. * Telephone Encounter - Carmen Perkins - 04/14/2024 11:36 AM EST Patient calling to report ED visit on : Date: 04/13 Hospital: [facility] Seen for: Asthma Attack Symptomatic No *if yes message should go to Triage Patient advised will forward to team nurse for follow up [phone] arabic documented in this encounter Plan of Treatment Upcoming Encounters Date Type Department Care Team (Late st Contact Info) Description 05/17/2024 1:30 PM EDT Office Visit [facility] CHC MED & PEDS [address] [place] [address] Cristian Chacon MD [address] [place], [place] [phone] documented as of this encounter Visit Diagnoses Not on filedocumented in this encounter Additional Health Concerns Assessment Noted Time PHQ-9 Depression Total Score: 16 024 1:19 PM EDT documented as of this encounter Care Teams Surg Rn Relationship Specialty Start Date End Date Cristian Chacon MD [address] [place] [phone] PCP - General Internal Medicine 03/17/19 Ivy Payne Compressor OperatorChemical Worker 11/26/23 documented as of this encounter
--- OUTSIDE RECORDS SUMMARY | 2024-05-02 14:19 | XMS_ITS | Encounter Summary ---
Author Organization [employer] Address [address] [facility] 7t [place] [address] Care Team Providers Care Fountain Pen Turner Name Role Phone Cristian Chacon MD Primary Care Prov ider Reason for Visit * Reason Onset Date Comments Durable Medical Equipment 04/20/2024 Encounter Details Date Type Department Care Team ([facility] st Contact Info) Description 04/20/2024 Telephone [facility] CHC MED & PEDS [address] [place], [place] [phone] Cristian Chacon MD [address] [place] [address] Durable Medical Equipment Social History Tobacco Use Types Packs/Day Years [...] encounter Miscellaneous Notes * Telephone Encounter - May Rico LPN - 04/20/2024 1:30 PM EST Rx generated and faxed to [facility] ----- Message from Cristian Martinez MD sent at 04/15/2024 2:18 PM EST ----- R26.81 ----- Message ----- From: May Rico LPN Sent: 04/07/2024 9:09 AM EST To: Cristian Martinez MD The prescription has been generated; however, what is the diagnosis for this request? ----- Message ----- From: Cristian Martinez MD Sent: 04/05/2024 11:51 PM EST To: May Rico LPN Please send rx for bed step * Telephone Encounter - May Rico LPN - 04/20/2024 1:30 PM EST ----- Message from Cristian Martinez MD sent at 04/15/2024 2:18 PM EST ----- R26.81 ----- Message ----- From: May Rico LPN Sent: 04/07/2024 9:09 AM EST To: Cristian Martinez MD The prescription has been generated; however, what is the diagnosis for this request? ----- Message ----- From: Cristian Martinez MD Sent: 04/05/2024 11:51 PM EST To: May Rico LPN Please send rx for bed step documented in this encounter Plan of Treatment Upcoming Encounters Date Type Department Care Team ([facility] st Contact Info) Description 05/17/2024 1:30 PM EDT Office Visit [facility] MED & PEDS [address] [place] [address] Cristian Chacon MD [address] [place] [address] documented as of this encounter Visit Diagnoses Not on filedocumented in this encounter Additional Health Concerns Assessment Noted Time PHQ-9 Depression Total Score: 16 024 1:19 PM EDT documented as of this encounter Care Teams Fountain Pen Turner Relationship Specialty Start Date End Date Cristian Chacon MD [address] [place] [address] PCP - General Internal Medicine 03/17/19 Ivy Payne Recreational Sports DirectorGlass Technician 11/26/23 documented as of this encounter
--- OUTSIDE RECORDS SUMMARY | 2024-05-02 14:19 | XMS_ITS | Encounter Summary ---
Author Organization [facility] Address [address] [place] [address] Care Team Providers Care Plisse Machine Operator Name Role Phone Cristian Chacon MD Primary Care Prov ider Reason for Visit * Reason Onset Date Comments PAC Patient Request Call Back 03/30/2024 PAC Clinical Questions 03/30/2024 Encounter Details Date Type Department Care Team ([facility] st Contact Info) Description 03/30/2024 Telephone [facility] [address] [place] [address] Drug Enforcement Administration Agent: Alonzo Baez MD [address] [place], [place] [id number] PAC Patient Request Call Back; PAC Clinical Questions Social History Tobacco Use Types Packs/Day Years [...] encounter Miscellaneous Notes * Telephone Encounter - Payton Dewitt LPN - 04/21/2024 5:19 PM EST Patient was seen by the provider yesterday and I had spoke with patient before this message other encounter. * Telephone Encounter - Pat Mckay - 04/05/2024 8:45 AM EST Pt is calling back to speak with Payton CAVANAUGH in regards to how she is feeling please advise [phone] * Telephone Encounter - Payton Dewitt LPN - 03/30/2024 9:38 AM EST Spoke with patient in cambodian stated she went to PCP on Thursday and they just looked at the cyst. She told them the Doctor gave her antibiotic and they didn't give her anything else. Stated she started feeling better after starting the antibiotic. On Thursday she was doing laundry was up and down the stairs but then Thursday she started feeling Chest pain and end up going to [facility]. After doing many test and giving her medication they sent her Home Thursday morning. She feels better. She is taking the the antibiotic since Thursday and also the prednisone 5mg BID on Thursday. Regards, Sushma documented in this encounter Plan of Treatment Upcoming Encounters Date Type Department Care Team (Late st Contact Info) Description 06/01/2024 9:00 AM EDT Office Visit [facility] Building 4th floor Cardiology Medicine [address] [place] [id number] Drug Enforcement Administration Agent: Hemal Fritz MD [address] [place] [address] 08/02/2024 1:30 PM EDT Follow-Up [facility] [address] [place] [address] Drug Enforcement Administration Agent: Morales Ramsey MD [address] [place] [id number] 08/16/2024 2:00 PM EDT Office Visit [facility] [address] [place] [id number] Drug Enforcement Administration Agent: Juan Ramon Vallejo, Dennis Whitlock MD [address] [id number] Scheduled Procedures Name Priority Associated Diagnoses Date/Ti me ARTHROSCOPY, SHOULDER, WITH ROTATOR CUFF REPAIR Chronic left shoulder pain ARTHROSCOPY, SHOULDER, DEBRI RONAL, EXTENSIVE Chronic left shoulder pain ARTHROSCOPY, SHOULDER, BICEP S TENODESIS Chronic left shoulder pain documented as of this encounter Visit Diagnoses Not on filedocumented in this encounter Care Teams Plisse Machine Operator Relationship Specialty Start Date End Date Cristian Chacon MD [address] [place] [id number] PCP - General 06/04/22 documented as of this encounter
--- OUTSIDE RECORDS SUMMARY | 2024-05-02 14:19 | XMS_ITS | Referral Summary ---
Author Organization [facility] Address [address] [place] [address] Care Team Providers Care Boom Operator Name Role Phone Cristian Chacon MD Primary Care Prov ider Encounters Date Type Department Care Team Description 04/21/2024 Telephone [facility] 4th floor Cardiology Medicine [address] [place] [phone] Mower Sharpener: Mary Arriaga Telephone Intake, Staff PAC Form/Letter/Record s Request 04/20/2024 9:00 AM EST Follow-Up [facility]ology [facility] [address] [place] [address] Mower Sharpener: Alonzo Baez MD FELI positive (Primary Dx); Arthralgia, unspecified joint; Chest pain, unspecified type; Moderate persistent asthma, unspecified whether complicated 04/08/2024 Telephone [facility] [address] [place] [phone] Mower Sharpener: Zaida Rust Telephone Intake, Staff PAC Sick/Symptoms 03/30/2024 Telephone [facility] [address] [place] [address] Mower Sharpener: Alonzo Baez MD PAC Patient Request Call Back; PAC Clinical Questions 03/27/2024 Telephone [facility] Rheumatology [address] [place] [phone] Mower Sharpener: Alonzo Caputo MD 03/25/2024 Telephone [facility] Rheumatology [address] [place] [address] Mower Sharpener: Alonzo Caputo MD 03/24/2024 Documentation [facility] Rheumatology [address] [place] [address] Mower Sharpener: Alonzo Caputo MD 03/24/2024 Telephone [facility] Rheumatology [address] [place] [address] Mower Sharpener: Alonzo Caputo MD 03/23/2024 4:00 PM EST - 03/23/2024 11:59 PM EST Hospital Encounter [facility] XRay [address] [place] [phone] Alonzo Persaud MD Chronic pain of both shoulders; Bilateral hip pain; Neck pain Discharge Disposition: Home or Self Care () 03/23/2024 3:20 PM EST Office Visit [facility] [address] [place] [address] Mower Sharpener: Alonzo Baez MD Chronic pain of both shoulders (Primary Dx); Bilateral hip pain; Neck pain 03/22/2024 Telephone [facility] [address] [place] [address] Mower Sharpener: Zaida Rust Telephone Intake, Staff PAC Provider Requested Call Back Dr Persaud 03/22/2024 Telephone [facility] Endocrinology Clinic [address] [place] [phone] Mower Sharpener: Alysha Roman Telephone Intake, Staff 03/17/2024 Refill [facility] [address] [place] [phone] Mower Sharpener: Alonzo Baez MD 03/05/2024 Refill [facility] [address] [place] [address] Mower Sharpener: Alonzo Baez MD 02/18/2024 Telephone [facility] Rheumatology [address] [place] [address] Mower Sharpener: Alonzo Caputo MD 02/16/2024 12:00 PM EST - 02/16/2024 11:59 PM EST Hospital Encounter [facility] CT Scan Department [address] [place] [address] Rib pain Discharge Disposition: Home or Self Care (01) from Last 3 Months Allergies Active Allergy Reactions Criticality Noted Date Comments Aspirin Itching,Rash Low 10/22/2012 patient denies allerrgy patient denies allerrgy Codeine Anaphylaxis High 03/07/2022 SWELLING SWELLING SWELLING SWELLING Cyclobenzaprine Diarrhea 02/10/2017 Duloxetine Rash 08/24/2017 Hydroxychloroquine Hives,Rash High 05/30/2021 Leflunomide Diarrhea 10/07/2021 Other reaction(s): GI Problems Meperidine Vomiting 06/11/2015 Other reaction(s): VOMITING Methotrexate Other (see comments),Unknown Medium 06/28/2021 Painful mouth sores Painful mouth sores Milnacipran Itching 10/17/2021 Morphine Anaphylaxis High 02/17/2017 Oxycodone-Acetaminophen Itching 03/07/2022 Peanut Anaphylaxis High 04/04/2022 Penicillins Itching,Rash Low 10/22/2012 Medications acetaminophen (TYLENOL) 500 mg tablet PLEASE SEE ATTACHED FOR DETAILED DIRECTIONS 2 Active Ventolin HFA 90 mcg/actuation inhaler INHALE 2 PUFFS EVERY 4 HOURS IF NEEDED FOR WHEEZING. 3 Active blood pressure test kit-large kit Check blood pressure on arm as directed DAILY 3 Active famotidine (PEPCID) 20 mg tablet Take 20 mg by mouth 2 times a day. 2 Active Advair HFA 230-21 mcg/actuation inhaler 2 puffs 2 times a day. 2 Active folic acid (FOLVITE) 1 mg tablet TOME ОЛЕГ TABLETA LOS D 2 Active hydrocortisone 2.5% cream Apply topically to the affected area 2 times a day. 2 Active hydrOXYchloroQU INE (PLAQUENIL) 200 mg tablet TOME ОЛЕГ TABLETA LOS D 2 Active LORazepam (ATIVAN) 0.5 mg tablet Take 0.5 mg by mouth 2 times a day as needed. 2 Active loratadine (CLARITIN) 10 mg tablet Take 10 mg by mouth once daily as needed. Active meclizine (ANTIVERT) 25 mg tablet Take 25 mg by mouth 3 times a day as needed. 2 Active metoclopramide (REGLAN) 10 mg tablet Take 10 mg by mouth 3 times a day as needed. 2 Active estradioL (ESTRACE) 0.01 % (0.1 mg/gram) vaginal cream Apply a pea sized amount nightly to vaginal entrance Estradiol powder compounded in safflower base 42.5 g 3 3 Active losartan (COZAAR) 25 mg tablet Take 25 mg by mouth daily. 4 05/15/19 25 Active predniSONE (DELTASONE) 1 mg tablet Take 4 tablets (4 mg total) by mouth once a day. 120 tablet 5 4 Active nystatin (MYCOSTATIN) 100,000 unit/gram powderIndicatio ns:Intertrigo Apply topically to the affected area 2 times a day. On lower abdomen 60 g 5 4 Active zolpidem (AMBIEN) 10 mg tablet Take 10 mg by mouth nightly as needed for sleep. 4 Active sertraline (ZOLOFT) 50 mg tablet Take 50 mg by mouth once a day. 4 Active SUMAtriptan (IMITREX) 50 mg tablet Take 50 mg by mouth once as needed for migraine. Active pregabalin (LYRICA) 25 mg capsule Take 25 mg by mouth 2 times a day. Active lidocaine (LIDODERM) 5% patch Apply 1 patch topically to the affected area once a day. 4 Active ketoconazole (NIZORAL) 2% cream Apply 1 Application topically to the affected area daily. Active gabapentin (NEURONTIN) 300 mg capsule Take 300 mg by mouth 3 times a day. Active fluticasone propionate (FLOVENT HFA) 220 mcg inhaler Inhale 1 puff by mouth 2 times a day. Active diclofenac (VOLTAREN) 75 mg EC tablet Take 75 mg by mouth 2 times a day. Active tiZANidine (ZANAFLEX) 2 mg tablet TAKE 1 TABLET BY MOUTH EVERY 6 HOURS NEEDED FOR MUSCLE SPASMS. 120 tablet 1 5 Active naproxen (NAPROSYN) 500 mg tablet Take 500 mg by mouth 2 times a day with meals. Active predniSONE (DELTASONE) 5 mg tablet Take 1 tablet (5 mg total) by mouth 2 times a day. 60 tablet 2 5 Active magic mouthwash (lidocaine-diph enhydrAMINE-nys tatin) 1:1:1Indication s:Glossitis, benign migratory Take 5 mL by mouth 4 times a day. Swash and spit for migratory glossitis 600 mL 2 4 04/04/19 25 Active Problems Problem Noted Date Diagnosed Date Traumatic incomplete tear of left rotator cuff 1 Mixed stress and urge urinary incontinence 04/04 Social History Tobacco Use Types Packs/Day Years Used Date Smoking Tobacco: Never Passive Smoke Exposure: Past Smokeless Tobacco: Never Tobacco Cessation:Counseling Given: Not Answered Alcohol Use Standard Drinks/Week Comments Not Currently 0 (1 standard drink = 0.6 oz pur e alcohol) Comments Unknown Sex and Gender Information Value Date Recorded Sex Assigned at Female 06/17/2023 10:04 AM EDT Legal Sex Female 11:38 AM EDT Gender Identity Not on file Sexual Orientation Not on file Last Filed Vital Signs Vital Sign Reading Time Taken Comments Blood Pressure 138/92 04/20/2024 7:55 AM EST Pulse 76 04/20/2024 7:55 AM EST Temperature 36.7 ??C (98.1 ??F) 04/20/2024 7:55 AM ES T Respiratory Rate - - Oxygen Saturation - - Inhaled Oxygen Concentration - - Weight 90.7 kg (200 lb) 04/20/2024 7:55 AM EST Height 157.5 cm (5' 2 ) 04/20/2024 7:55 AM EST Body Mass Index 36.58 04/20/2024 7:55 AM EST Plan of Treatment Upcoming Encounters Date Type Department Care Team (Late st Contact Info) Description 06/01/2024 9:00 AM EDT Office Visit [facility] 4th floor Cardiology Medicine [address] [place] [phone] Mower Sharpener: Hemal Fritz MD [address] [place] [phone] 08/02/2024 1:30 PM EDT Follow-Up [facility]atology [facility] [address] [place] [phone] Mower Sharpener: Morales Ramsey MD [address] [place] [phone] 08/16/2024 2:00 PM EDT Office Visit [facility] [address] [place] [address] Mower Sharpener: Dennis Laguna MD [address] [place] [phone] Scheduled Procedures Name Priority Associated Diagnoses Date/Ti me ARTHROSCOPY, SHOULDER, WITH ROTATOR CUFF REPAIR Chronic left shoulder pain ARTHROSCOPY, SHOULDER, DEBRI RONAL, EXTENSIVE Chronic left shoulder pain ARTHROSCOPY, SHOULDER, BICEP S TENODESIS Chronic left shoulder pain Procedures * Due to [place] state law, this organization might not be sharing negative HIV tests. Procedure Name Priority Date/Time Associated Diagnosis Comments DNA AB(DS) CRITHIDIA TITER Routine 04/20/2024 9:23 AM EST FELI positive Arthralgia, unspecified joint DRAKE TOP, URN Routine 04/20/2024 9:23 AM EST FELI positive Arthralgia, unspecified joint UA/CULTURE REFLEX Routine 04/20/2024 9:2 3 AM EST FELI positive Arthralgia, unspecified joint C-REACTIVE PROTEIN Routine 04/20/2024 9: 23 AM EST FELI positive Arthralgia, unspecified joint SEDIMENTATION RATE, AUTOMATED Routine 04/20/2024 9:23 AM EST FELI positive Arthralgia, unspecified joint COMPLEMENT C3 Routine 04/20/2024 9:23 AM EST FELI positive Arthralgia, unspecified joint COMPLEMENT C4 Routine 04/20/2024 9:23 AM EST FELI positive Arthralgia, unspecified joint CK Routine 04/20/2024 9:23 AM EST FELI positive Arthralgia, unspecified joint CBC AUTO DIFFERENTIAL Routine 04/20/2024 9:23 AM EST FELI positive Arthralgia, unspecified joint COMPREHENSIVE METABOLIC PANEL Routine 04/20/2024 9:23 AM EST FELI positive Arthralgia, unspecified joint DNA ANTIBODY, DOUBLE-STRANDED Routine 04/20/2024 9:23 AM EST FELI positive Arthralgia, unspecified joint DNA ANTIBODY (DS) CRITHIDIA IFA W/REFLEX Routine 04/20/2024 9:23 AM EST FELI positive Arthralgia, unspecified joint URINALYSIS W/REFLEX TO MICROSCOPIC & CULTURE Routine 04/20/2024 9:23 AM EST FELI positive Arthralgia, unspecified joint MICROALBUMIN, RANDOM URINE WITH CREATININE Routine 04/20/2024 9:23 AM EST FELI positive Arthralgia, unspecified joint [id number] STAT 04/20/19 9:23 AM EST FELI positive Arthralgia, unspecified joint FELI, TITER AND PATTERN Routine 4:48 PM EST Chronic pain of both shoulders Bilateral hip pain Neck pain DNA AB(DS) CRITHIDIA TITER Routine 03/23/2024 4:48 PM EST Chronic pain of both shoulders Bilateral hip pain Neck pain FELI SPECIFIC ANTIBODY INTERPRETATION Routine 03/23/2024 4:48 PM EST Chronic pain of both shoulders Bilateral hip pain Neck pain FELI SPECIFIC ANTIBODY STAGE 1 Routine 03/23/2024 4:48 PM EST Chronic pain of both shoulders Bilateral hip pain Neck pain DRAKE TOP, URN Routine 03/23/2024 4:48 PM EST Chronic pain of both shoulders Bilateral hip pain Neck pain UA/CULTURE REFLEX Routine 03/23/2024 4:4 8 PM EST Chronic pain of both shoulders Bilateral hip pain Neck pain FELI SPECIFIC ANTIBODY Routine 03/23/2024 4:48 PM EST Chronic pain of both shoulders Bilateral hip pain Neck pain FELI SCREEN, IFA, W/REFLEX TO TITER & PATTERN Routine 03/23/2024 4:48 PM EST Chronic pain of both shoulders Bilateral hip pain Neck pain C-REACTIVE PROTEIN Routine 03/23/2024 4: 48 PM EST Chronic pain of both shoulders Bilateral hip pain Neck pain CYCLIC CITRULLLNATED PEPTIDE (CCP) ANTIBODY, IGG Routine 03/23/2024 4:48 PM EST Chronic pain of both shoulders Bilateral hip pain Neck pain SEDIMENTATION RATE, AUTOMATED Routine 03/23/2024 4:48 PM EST Chronic pain of both shoulders Bilateral hip pain Neck pain DNA ANTIBODY, DOUBLE-STRANDED Routine 03/23/2024 4:48 PM EST Chronic pain of both shoulders Bilateral hip pain Neck pain COMPLEMENT C3 Routine 03/23/2024 4:48 PM EST Chronic pain of both shoulders Bilateral hip pain Neck pain COMPLEMENT C4 Routine 03/23/2024 4:48 PM EST Chronic pain of both shoulders Bilateral hip pain Neck pain CK Routine 03/23/2024 4:48 PM EST Chronic pain of both shoulders Bilateral hip pain Neck pain GAMMA GT Routine 03/23/2024 4:48 PM EST Chronic pain of both shoulders Bilateral hip pain Neck pain LACTATE DEHYDROGENASE Routine 03/23/2024 4:48 PM EST Chronic pain of both shoulders Bilateral hip pain Neck pain LYME ANTIBODY SCREEN W/REFLEX TO BLOT Routine 03/23/2024 4:48 PM EST Chronic pain of both shoulders Bilateral hip pain Neck pain DNA ANTIBODY (DS) CRITHIDIA IFA W/REFLEX Routine 03/23/2024 4:48 PM EST Chronic pain of both shoulders Bilateral hip pain Neck pain PROTEIN ELECTROPHORESIS W/REFLEX TO IMMUNOFIXATION, SERUM Routine 03/23/2024 4:48 PM EST Chronic pain of both shoulders Bilateral hip pain Neck pain KAPPA & LAMBDA, FREE W/RATIO Routine 03/23/2024 4:48 PM EST Chronic pain of both shoulders Bilateral hip pain Neck pain IGG Routine 03/23/2024 4:48 PM EST Chronic pain of both shoulders Bilateral hip pain Neck pain IGA Routine 03/23/2024 4:48 PM EST Chronic pain of both shoulders Bilateral hip pain Neck pain IGM Routine 03/23/2024 4:48 PM EST Chronic pain of both shoulders Bilateral hip pain Neck pain FERRITIN Routine 03/23/2024 4:48 PM EST Chronic pain of both shoulders Bilateral hip pain Neck pain CBC AUTO DIFFERENTIAL Routine 03/23/2024 4:48 PM EST Chronic pain of both shoulders Bilateral hip pain Neck pain URINALYSIS W/REFLEX TO MICROSCOPIC & CULTURE Routine 03/23/2024 4:48 PM EST Chronic pain of both shoulders Bilateral hip pain Neck pain MICROALBUMIN, RANDOM URINE WITH CREATININE Routine 03/23/2024 4:48 PM EST Chronic pain of both shoulders Bilateral hip pain Neck pain COMPREHENSIVE METABOLIC PANEL Routine 03/23/2024 4:48 PM EST Chronic pain of both shoulders Bilateral hip pain Neck pain URINE CULTURE, ROUTINE Routine 5 4:48 PM EST Chronic pain of both shoulders Bilateral hip pain Neck pain XR HIPS BILATERAL 5+ VW W PELVIS Routine 03/23/2024 4:27 PM EST Chronic pain of both shoulders Bilateral hip pain Neck pain XR CERVICAL SPINE 2 OR 3 VIEWS Routine 03/23/2024 4:27 PM EST Chronic pain of both shoulders Bilateral hip pain Neck pain XR SHOULDER 2+ VW RIGHT Routine 03/23/19 25 4:27 PM EST Chronic pain of both shoulders Bilateral hip pain Neck pain XR SHOULDER 2+ VW LEFT Routine 5 4:27 PM EST Chronic pain of both shoulders Bilateral hip pain Neck pain CT CHEST WO CONTRAST Routine 02/16/2024 12:20 PM EST Rib pain HEPATITIS C ANTIBODY W/REFLEX TO HCV RNA, QUANTITATIVE PCR Routine 06/04/2022 5:43 PM EDT FELI positive from Last 3 Months or Most Recently Relevant to Health Maintenance Results * Due to [place] state law, this organization might not be sharing negative HIV tests. * Drake Top, Urine (04/20/2024 9:23 AM EST) Only the most recent of2 resultswithin the time period is included. Pathologist [facility] Extra Tube Hold for add-ons. 04/20/2024 2:05 PM EST [facility] Comment:Auto resulted. Urine Urine specimen collection, clean catch / Unknown Non-Blood Collection / Unknown 04/20/2024 9:23 AM EST 04/20/2024 9:39 AM EST Alonzo Persaud MD LAB URINE ORDERABLES Final Result Performing Organization Address City/[facility]/ZIP Co de Phone Number [facility] [address] [place] [address], [place] * (ABNORMAL) DNA AB(DS) Crithidia Titer (04/20/2024 9:23 AM EST) Only the most recent of2 resultswithin the time period is included. Pathologist [facility] DNA Ab Crithidia Titer 1:40(H) <1:10 titer 04/23/2024 12:47 PM EST [facility] (GIMENEZ) Blood Structure of peripheral vein / Unknown Venipuncture / Unknown 04/20/2024 9:23 AM EST 04/20/2024 9:38 AM EST Narrative [facility] - 04/23/2024 12:47 PM EST [facility] Received Date: Alonzo Persaud MD LAB BLOOD ORDERABLES Final Result [facility] [address] [facility] [address]rd Floor, [place] [address], [place] [phone] [employer] ([employer]) [address] [place], [place] , [place] * (ABNORMAL) Urinalysis W/Reflex to Microscopic & Culture (04/20/2024 9:23 AM EST) Only the most recent of2 resultswithin the time period is included. Pathologist [facility] Color, Urine Yellow Colorless, Light Yellow, Yellow, Dark Yellow 04/20/2024 9:59 AM [facility] Clarity, Urine Clear Clear 04/20/2024 9:59 AM [facility] Specific [facility] [place], Urine 1.024 1.005 - 1.030 04/20/2024 9:59 AM [facility] pH, Urine 5.0 4.6 - 8.0 04/20/2024 9:59 AM [facility] Protein, Urine 1+(A) Negative 04/20/2024 9:59 AM [facility] Glucose, Urine Negative Negative 04/20/2024 9:59 AM [facility] Ketones, Urine Negative Negative 04/20/2024 9:59 AM [facility] Bilirubin, Urine Negative Negative 04/20/2024 9:59 AM [facility] Blood, Urine Negative Negative 04/20/2024 9:59 AM [facility] Nitrite, Urine Negative Negative 04/20/2024 9:59 AM [facility] Urobilinogen, Urine Normal Normal 04/20/2024 9:59 AM [facility] Leukocyte Esterase, Urine Negative Negative 04/20/2024 9:59 AM [facility] WBC, Urine 1 0 - 2 /HPF 04/20/2024 9:59 AM [facility] RBC, Urine <1 0 - 2 /HPF 04/20/2024 9:59 AM [facility] Hyaline Casts, Urine 0 0 - 2 /LPF 04/20/2024 9:59 AM [facility] Squamous Epithelial Cells, Urine 2 /HPF 04/20/2024 9:59 AM [facility] Bacteria, Urine None None /HPF /HPF 04/20/2024 9:59 AM [facility] Mucus, Urine Rare /LPF 04/20/2024 9:59 AM EST [facility] Urine Urine specimen collection, clean catch / Unknown Non-Blood Collection / Unknown 04/20/2024 9:23 AM EST 04/20/2024 9:39 AM EST Alonzo Persaud MD LAB URINE ORDERABLES Final Result [facility] [address] [place] [address], [place] * (ABNORMAL) DNA Antibody (ds) Crithidia IFA w/Reflex (04/20/2024 9:23 AM EST) Only the most recent of2 resultswithin the time period is included. DNA Ab(ds) Crithidia, IFA Positive(A ) Negative 04/23/2024 12:26 PM EST [facility] ([place]) Blood Structure of peripheral vein / Unknown Venipuncture / Unknown 04/20/2024 9:23 AM EST 04/20/2024 9:38 AM EST Narrative [facility] - 04/23/2024 12:26 PM EST [facility] Received Date: Alonzo Persaud MD LAB BLOOD ORDERABLES Final Result [facility] [address] [place] [address] [address]rd Floor, [place] [address], [facility] ([place]) [address] [place], [place] , [place] * Procalcitonin (04/20/2024 9:23 AM EST) Pathologist [facility] Procalcitonin <0.20 <0.20 ng/mL 04/22/2024 2:53 PM EST [facility] [id number] Comment: Verified by repeat analysis. Procalcitonin levels above 2.00 ng/mL on the first day of ICU admission represent a high risk for progression to severe sepsis and/or septic shock. Procalcitonin Comment See Comments 04/22/2024 2:53 PM EST [facility] [id number] Comment: Interpretation Guidelines Diagnosis of systemic bacterial infection/sepsis <0.5 ng/mL: Low risk for sepsis and/or septic shock, however levels <0.5 do not exclude local infection or a systemic infection in its initial stages (<6 hours). 0.5 to 2.0 ng/mL: Interpret in conjunction with patient history. It is recommended to retest PCT within 6-24 hours if any concentrations <2 ng/mL are obtained. >2.0 ng/mL: High risk of severe sepsis and/or septic shock Procalcitonin levels should be evaluated in context of all laboratory findings and the total clinical status of the patient. Blood Structure of peripheral vein / Unknown Venipuncture / Unknown 04/20/2024 9:23 AM EST 04/20/2024 9:38 AM EST [facility] - 04/22/2024 2:53 PM EST [facility] Received Date: Alonzo Persaud MD LAB BLOOD ORDERABLES Final Result [address], [place] [address], [place] [phone] [employer] [address] [place] [address], [place] [phone] * (ABNORMAL) CBC Auto Differential (04/20/2024 9:23 AM EST) Only the most recent of2 resultswithin the time period is included. WBC 12.4(H) 3.8 - 10.8 10*3/uL 04/20/2024 9:47 AM EST [facility] RBC 4.34 3.80 - 5.10 10*6/uL 04/20/2024 9:47 AM EST [facility] Hemoglobin 12.3 11.7 - 15.5 g/dL 04/20/2024 9:47 AM EST [facility] Hematocrit 39.1 35.0 - 45.0 % 04/20/2024 9:47 AM [facility] MCV 90.1 80.0 - 100.0 fL 04/20/2024 9:47 AM [facility] MCH 28.3 27.0 - 33.0 pg 04/20/2024 9:47 AM [facility] MCHC 31.5(L) 32.0 - 36.0 g/dL 04/20/2024 9:47 AM [facility] RDW 13.4 11.0 - 15.0 % 04/20/2024 9:47 AM [facility] Platelets 351 140 - 400 10*3/uL 04/20/2024 9:47 AM [facility] MPV 9.4 7.5 - 12.5 fL 04/20/2024 9:47 AM [facility] Neutrophil % 88.3 % 04/20/2024 9:47 AM [facility] Immature Grans % 1.1(H) 0.0 - 0.9 % 04/20/2024 9:47 AM [facility] Lymphocyte % 6.1 % 04/20/2024 9:47 AM [facility] Monocyte % 4.1 % 04/20/2024 9:47 AM [facility] Eosinophil % 0.2 % 04/20/2024 9:47 AM [facility] Basophil % 0.2 % 04/20/2024 9:47 AM [facility] Neutrophil # 10.92(H) 1.50 - 7.80 10*3/uL 04/20/2024 9:47 AM [facility] Immature Grans # 0.14(H) <=0.03 10*3/uL 04/20/2024 9:47 AM EST [facility] Lymphocyte # 0.80(L) 0.85 - 3.90 10*3/uL 04/20/2024 9:47 AM EST [facility] Monocyte # 0.50 0.20 - 0.95 10*3/uL 04/20/2024 9:47 AM EST [facility] Eosinophil # <0.03 0.02 - 0.50 10*3/uL 04/20/2024 9:47 AM EST [facility] Basophil # <0.03 0.00 - 0.20 10*3/uL 04/20/2024 9:47 AM EST [facility] nRBC % 0.0 /100 WBCs 04/20/2024 9:47 AM EST [facility] nRBC # <0.01 <0.01 10*3/uL 04/20/2024 9:47 AM EST [facility] Blood Structure of peripheral vein / Unknown Venipuncture / Unknown 04/20/2024 9:23 AM EST 04/20/2024 9:38 AM EST us Alonzo Persaud MD LAB BLOOD ORDERABLES Final Result Performing Organization Address City/State/[facility] Co de Phone Number [facility] [address] [place] [address], [place] * Microalbumin, Random Urine with Creatinine (04/20/2024 9:23 AM EST) Only the most recent of2 resultswithin the time period is included. Microalbumin, Urine <2.0 mg/dL 04/20/2024 12:17 PM EST [facility] Creatinine, Urine 186 15 - 278 mg/dL 04/20/2024 12:17 PM EST [facility] Microalb/Creat Ratio, Random Urine 04/20/2024 12:17 PM EST [facility] Comment: < 1.0 mcg/mgCr Microalbumin Reference Range: Normal ? <30 mcg/mg Creatinine Microalbuminuria ? 30-300 mcg/mg Creatinine Clinical Albuminuria >300 mcg/mg Creatinine Reference: ADA Guideline. Diabetes Care. 2004;27 (suppl 1) Urine Voided urine specimen / Unknown Non-Blood Collection / Unknown 04/20/2024 9:23 AM EST 04/20/2024 9:39 AM EST Alonzo Persaud MD LAB URINE ORDERABLES Final Result [facility] [address] [place] [address], [facility] [address] [place] [address], * (ABNORMAL) DNA Antibody, Double-Stranded (04/20/2024 9:23 AM EST) Only the most recent of2 resultswithin the time period is included. DNA (Ds) Antibody 7(H) IU/mL 025 9:[address] Comment: ? IU/mL ? Interpretation ? < or = 4 ?Negative ? 5-9 ? Indeterminate ? > or = 10 ?? Positive Blood Structure of peripheral vein / Unknown Venipuncture / Unknown 04/20/2024 9:23 AM EST 04/20/2024 9:38 AM EST Narrative [facility] - 04/21/2024 9:50 PM EST [facility] Received Date:[id number] Alonzo Persaud MD LAB BLOOD ORDERABLES Final Result PHILLIP ROSARIO [address] [facility] 3rd Floor, [place] [address], [place] [phone] [facility] [employer] [facility] [address] [facility] 3rd Floor, [place] [address], [place] [phone] * Sedimentation Rate (04/20/2024 9:23 AM EST) Only the most recent of2 resultswithin the time period is included. Pathologist [facility] Sed Rate 23 <30 mm/Hr mm/Hr 04/20/2024 10:04 AM EST [facility] Blood Structure of peripheral vein / Unknown Venipuncture / Unknown 04/20/2024 9:23 AM EST 04/20/2024 9:38 AM EST Alonzo Persaud MD LAB BLOOD ORDERABLES Final Result Performing Organization Address [facility] Co de Phone Number [facility] [address] [place] [address], [place] * Complement C3 (04/20/2024 9:23 AM EST) Only the most recent of2 resultswithin the time period is included. Pathologist [facility] Complement Component C3C 101 83 - 193 mg/dL 04/21/2024 4:22 AM EST [employer] [facility] Blood Structure of peripheral vein / Unknown Venipuncture / Unknown 04/20/2024 9:23 AM EST 04/20/2024 9:38 AM EST Narrative [facility] - 04/21/2024 4:22 AM EST [facility] Received Date:[id number] Alonzo Persaud MD LAB BLOOD ORDERABLES Final Result Performing Organization Address City/[facility]/ZIP Co de Phone Number PHILLIP ROSARIO [address] [facility] 3rd Floor, [place] [address], [place] [phone] [employer] [facility] [address] [facility] 3rd Floor, [place] [address], [place] [phone] * Complement C4 (04/20/2024 9:23 AM EST) Only the most recent of2 resultswithin the time period is included. Pathologist [facility] Complement Component C4C 21 15 - 57 mg/dL 04/21/2024 4:22 AM EST [employer] [facility] Blood Structure of peripheral vein / Unknown Venipuncture / Unknown 04/20/2024 9:23 AM EST 04/20/2024 9:38 AM EST Narrative [facility] - 04/21/2024 4:22 AM EST [facility] Received Date: us Alonzo Persaud MD LAB BLOOD ORDERABLES Final Result Performing Organization Address City/[facility]/ZIP Co de Phone Number [facility] [address] [facility] [address] [facility], [place] [address], [employer] [address], [place] [address], [place] [phone] * (ABNORMAL) C-Reactive Protein (04/20/2024 9:23 AM EST) Only the most recent of2 resultswithin the time period is included. [facility] C Reactive Protein 10.5(H) <=9.9 mg/L 04/20/2024 10:34 AM EST [facility] Blood Structure of peripheral vein / Unknown Venipuncture / Unknown 04/20/2024 9:23 AM EST 04/20/2024 9:38 AM EST us Alonzo Persaud MD LAB BLOOD ORDERABLES Final Result [facility] [address] [place] [address], * (ABNORMAL) Creatine Kinase (04/20/2024 9:23 AM EST) Only the most recent of2 resultswithin the time period is included. Pathologist [facility] CK 35(L) 38 - 206 U/L 04/20/2024 10:34 AM EST [facility] Blood Structure of peripheral vein / Unknown Venipuncture / Unknown 04/20/2024 9:23 AM EST 04/20/2024 9:38 AM EST us Alonzo Persaud MD LAB BLOOD ORDERABLES Final Result [facility] [address] [place] [address], * (ABNORMAL) Comprehensive Metabolic Panel (04/20/2024 9:23 AM EST) Only the most recent of2 resultswithin the time period is included. NA 139 135 - 145 mmol/L 04/20/2024 10:34 AM EST [facility] K 3.8 3.5 - 5.3 mmol/L 04/20/2024 10:34 AM EST [facility] Cl 105 98 - 107 mmol/L 04/20/2024 10:34 AM EST [facility] CO2 24 22 - 32 mmol/L 04/20/2024 10:34 AM EST [facility] Anion Gap 10 5 - 15 04/20/2024 10:34 AM EST [facility] Glucose 177(H) 65 - 99 mg/dL 04/20/2024 10:34 AM EST [facility] Creatinine 0.73 0.50 - 1.20 mg/dL 04/20/2024 10:34 AM EST [facility] Calcium 8.4(L) 8.6 - 10.5 mg/dL 04/20/2024 10:34 AM EST [facility] Total Protein 6.9 6.0 - 8.0 g/dL 04/20/2024 10:34 AM EST [facility] Albumin 3.4(L) 3.5 - 5.2 g/dL 04/20/2024 10:34 AM EST [facility] Bilirubin, Total 0.3 0.2 - 1.2 mg/dL 04/20/2024 10:34 AM EST [facility] Alkaline Phosphatase 50 35 - 129 U/L 04/20/2024 10:34 AM EST [facility] AST 14 10 - 40 U/L 04/20/2024 10:34 AM EST [facility] ALT 11 10 - 40 U/L 04/20/2024 10:34 AM EST [facility] BUN 24(H) 7 - 23 mg/dL 04/20/2024 10:34 AM [facility] eGFR >90 >=60 mL/min/1. 73m2 04/20/2024 10:34 AM EST [facility] Comment:The estimated glomer ular filtration rate (eGFR) is calculated using a new formula developed by the NKF-ASN task force to eliminate race-based correction factors. The new formula uses serum/plasma creatinine, age, and gender to determine eGFR. A value below 60mls/min might indicate kidney disease and will be flagged. For additional information, see Bran et al, Am J Kidney Dis. 2021;79(2):268- 288, A Unifying Approach for GFR estimation: Recommendations of the NKF-ASN Task Force on Reassessing the Inclusion of Race in Diagnosing Kidney Disease . Globulin, Total 3.5 2.1 - 4.2 g/dL 04/20/2024 10:34 AM EST [facility] A/G Ratio 1.0(L) 1.5 - 3.0 04/20/2024 10:34 AM EST [facility] Blood Structure of peripheral vein / Unknown Venipuncture / Unknown 04/20/2024 9:23 AM EST 04/20/2024 9:38 AM EST us Alonzo Persaud MD LAB BLOOD ORDERABLES Final Result [facility] [address] [place] [address], * Interpretation (03/23/2024 4:48 PM EST) FELI Specific Antibody Interpretation See Comments 03/25/2024 12:[address] Comment: The presence of these two antibodies suggests systemic lupus erythematosus. Rarely, these two antibodies may be positive in other connective tissue diseases. A positive result at this stage of testing stops further testing, and does not preclude additional positive antibodies. Clinical correlation is required to assess the need for testing additional analytes. ?? Blood Structure of peripheral vein / Unknown Venipuncture / Unknown 03/23/2024 4:48 PM EST 03/23/2024 5:31 PM EST [facility] - 03/25/2024 12:23 PM EST [facility] Received Date: Alonzo Persaud MD LAB BLOOD ORDERABLES Final Result Performing Organization Address [facility]/State/ZIP Co de Phone Number [facility] GUTHRIE [address] [facility] 3rd Floor, [place] [address], [employer] [facility] [address] [facility] 3rd Floor, [place] [address], * (ABNORMAL) Stage 1 (03/23/2024 4:48 PM EST) DNA (Ds) Antibody 11(H) IU/mL 025 12:[address] Comment: ? IU/mL ? Interpretation ? < or = 4 ?Negative ? 5-9 ? Indeterminate ? > or = 10 ?? Positive Sm Antibody <1.0 NEG <1.0 NEG AI 03/25/2024 12:23 PM EST [employer] [facility] SM/ASPHALT SPREADER Antibody <1.0 NEG <1.0 NEG AI 03/25/2024 12:23 PM EST [employer] [facility] ASPHALT SPREADER Antibody <1.0 NEG <1.0 NEG AI 03/25/2024 12:23 PM EST [employer] [facility] Chromatin Antibody 3.0 POS(A) <1.0 NEG 03/25/2024 12:23 PM EST [employer] [facility] Comment: ANTIBODY PREVALENCE IN TIER 1 ? Double stranded DNA (dsDNA) antibodies are present in 57% to 62% systemic lupus erythematosus (SLE), 10% to 43% polymyositis, 11% to 20% Sjogren's syndrome, 8% systemic sclerosis (scleroderma) and 0% to 8% mixed connective tissue disease (MCTD). ?? Chromatin antibody is present in >80% MCTD, 37% to 73% SLE, 14% systemic sclerosis, 12% Sjogren's syndrome and 8% polymyositis. ?? Ribonucleoprotein (ASPHALT SPREADER) antibodies are to ASPHALT SPREADER A and/or ASPHALT SPREADER 68kD proteins; antibodies to one or both are present in >80% MCTD, 22% to 48% SLE, 14% systemic sclerosis, 12% Sjogren's and 8% polymyositis. ?? Sm/ASPHALT SPREADER antibodies are directed to epitopes formed in a complex of Sm and ASPHALT SPREADER; antibodies to the Sm/ASPHALT SPREADER complex are present in 54% to 94% MCTD, 30% SLE, 4% systemic sclerosis, and 9% Sjogren's and polymyositis. ?? Sm antibody is present in 20% to 30% SLE, 8% MCTD, 10% polymyositis, 0% systemic sclerosis and 4% Sjogren's syndrome. ?? Double stranded DNA, Chromatin, Ribonucleoprotein, Sm/ASPHALT SPREADER complex and Sm antibodies are present in <2% of normal blood donors. ?? The [place] does not rule out autoimmune disease characterized by other autoantibody specificities such as rheumatoid arthritis, autoimmune hepatitis, primary biliary cirrhosis, autoimmune thyroiditis, Woodson's disease, pernicious anemia, autoimmune neuropathies, vasculitis, celiac disease and bullous disease. Please contact your local [employer] laboratory if you are interested in additional testing. Blood Structure of peripheral vein / Unknown Venipuncture / Unknown 03/23/2024 4:48 PM EST 03/23/2024 5:31 PM EST Narrative [facility] - 03/25/2024 12:23 PM EST [facility] Received Date: Alonzo Persaud MD LAB BLOOD ORDERABLES Final Result [facility] [address] [facility] 3rd Floor, [place] [address], [employer] [facility] [address] [facility] [address]rd Floor, [place] [address], * (ABNORMAL) FELI, Titer and Pattern (03/23/2024 4:48 PM EST) FELI Titer 1 1:1280(H) titer 03/30/2024 4:[address] Comment: ?Reference Range ?<1:40 ?Negative ?1:40-1:80 ?Low Antibody Level ?>1:80 ?Elevated Antibody Level FELI Pattern 1 Nuclear, Homogeneo (A) 03/30/2024 4:[address] Comment: Homogeneous pattern is associated with systemic lupus erythematosus (SLE), drug-induced lupus and juvenile idiopathic arthritis. AC-1: Homogeneous International Consensus on FELI Patterns (https://doi.org/10.1515/lvrw-2065-2062) Blood Structure of peripheral vein / Unknown Venipuncture / Unknown 03/23/2024 4:48 PM EST 03/23/2024 5:31 PM EST Narrative [facility] - 03/30/2024 4:22 PM EST [facility] Received Date:[id number] Alonzo Persaud MD LAB BLOOD ORDERABLES Final Result PHILLIP ROSARIO [address] [facility] [address] [facility], [place] [address], [place] [phone] [employer] [facility] [address] [facility] 3rd Floor, [place] [address], [place] [phone] * (ABNORMAL) Ahuimanu & Lambda, Free w/Ratio (03/23/2024 4:48 PM EST) Pathologist [facility] Ahuimanu Light Chain, Free, Serum 99.6(H) 3.3 - 19.4 mg/L 03/24/2024 3:56 PM EST [employer] [facility] Lambda Light Chain, Free, Serum 60.2(H) 5.7 - 26.3 mg/L 03/24/2024 3:56 PM EST [employer] [facility] Ahuimanu/Lambda Light Chains Free With Ratio 1.65 0.26 - 1.65 03/24/2024 3:56 PM EST [employer] [facility] Comment: Free kappa/lambda ratio in serum of normal individuals is 0.26-1.65. Excess production of free kappa or lambda chains can alter this ratio. Monoclonal free light chains are found in serum of patients with multiple myeloma, Waldenstrom's macroglobulinemia, mu-heavy chain disease, primary amyloidosis, light chain deposition disease, monoclonal gammopathy of undetermined significance, and lymphoproliferative disorders. Measurement of free light chain concentration in serum is useful for diagnosis, prognosis, monitoring disease activity and following response to therapy of these disorders. Blood Structure of peripheral vein / Unknown Venipuncture / Unknown 03/23/2024 4:48 PM EST 03/23/2024 5:31 PM EST [facility] - 03/24/2024 3:56 PM EST [facility] Received Date:[id number] Alonzo Persaud MD LAB BLOOD ORDERABLES Final Result PHILLIP ROSARIO [address] [facility] [address] [facility], [place] [address], [place] [phone] [employer] [facility] [address], [place] [address], [place] [phone] * (ABNORMAL) Protein Electrophoresis w/Reflex to Immunofixation, Serum (03/23/2024 4:48 PM EST) Pathologist [facility] Protein, Total 6.5 6.1 - 8.1 g/dL 03/25/2024 7:04 AM EST [employer] [facility] Albumin 3.0(L) 3.8 - 4.8 g/dL 03/25/2024 7:04 AM EST [employer] [facility] Alpha 1 Globulin 0.5(H) 0.2 - 0.3 g/dL 03/25/2024 7:04 AM EST [employer] [facility] Alpha 2 Globulin 0.9 0.5 - 0.9 g/dL 03/25/2024 7:04 AM EST [employer] [facility] Beta 1 Globulin 0.4 0.4 - 0.6 g/dL 03/25/2024 7:04 AM EST [employer] [facility] Beta 2 Globulin 0.4 0.2 - 0.5 g/dL 03/25/2024 7:04 AM EST [employer] [facility] Gamma Globulin 1.2 0.8 - 1.7 g/dL 03/25/2024 7:04 AM EST [employer] [facility] Interpretation See Comments 03/25/2024 7:04 AM EST [employer] [facility] Comment: Pattern consistent with an acute phase reaction Blood Structure of peripheral vein / Unknown Venipuncture / Unknown 03/23/2024 4:48 PM EST 03/23/2024 5:31 PM EST Narrative [facility] - 03/25/2024 7:04 AM EST [facility] Received Date: us Alonzo Persaud MD LAB BLOOD ORDERABLES Final Result PHILLIP ROSARIO [address] [facility] 3rd Floor, [place] [address], [place] [phone] [employer] [facility] [address], [place] [address], [place] [phone] * Cyclic Citrullinated Peptide (CCP) Antibody, IgG (03/23/2024 4:48 PM EST) Cyclic Citrullinated Peptide (CCP) Ab (IgG) <16 UNITS 03/25/2024 2:[address] Comment: Reference Range Negative: ?<20 Weak Positive: ? 20-39 Moderate Positive: ?? 40-59 Strong Positive: ? >59 Blood Structure of peripheral vein / Unknown Venipuncture / Unknown 03/23/2024 4:48 PM EST 03/23/2024 5:31 PM EST Narrative [facility] - 03/25/2024 2:15 PM EST [facility] Received Date: Alonzo Persaud MD LAB BLOOD ORDERABLES Final Result [facility] [address] [facility] [address]rd Floor, [place] [address], [address] [facility] 3rd Floor, [place] [address], * Lyme Antibody Screen w/Reflex to Blot (03/23/2024 4:48 PM EST) [facility] Lyme Ab Screen <0.90 index 03/24/2024 11:[address] Comment: ? Index ?Interpretation ? ----- ? < 0.90 ? Negative ? 0.90-1.09 ?Equivocal ? > 1.09 ? Positive ?? As recommended by the Food and Drug Administration (FDA), all samples with positive or equivocal results in a Borrelia burgdorferi antibody screen will be tested using a blot method. Positive or equivocal screening test results should not be interpreted as truly positive until verified as such using a supplemental assay (e.g., B. burgdorferi blot). The screening test and/or blot for B. burgdorferi antibodies may be falsely negative in early stages of Lyme disease, including the period when erythema migrans is apparent. Blood Structure of peripheral vein / Unknown Venipuncture / Unknown 03/23/2024 4:48 PM EST 03/23/2024 5:31 PM EST [facility] - 03/24/2024 11:29 AM EST [facility] Received Date: Alonzo Persaud MD LAB BLOOD ORDERABLES Final Result [facility] [address] [facility] 3rd Floor, [place] [address], [employer] [facility] [address] [facility] 3rd Floor, [place] [address], * (ABNORMAL) FELI Screen, IFA, w/Reflex to Titer & Pattern (03/23/2024 4:48 PM EST) [facility] FELI Screen, IFA POSITIVE (A) NEGATIVE 03/30/2024 4:21 PM EST [employer] [facility] Comment: FELI IFA is a first line screen for detecting the presence of up to approximately 150 autoantibodies in various autoimmune diseases. A positive FELI IFA result is suggestive of autoimmune disease and reflexes to titer and pattern. Further laboratory testing may be considered if clinically indicated. For additional information, please refer to http://education.lettrs.Couplewise/faq/HLN492 (This link is being provided for informational/ educational purposes only.) ?? Blood Structure of peripheral vein / Unknown Venipuncture / Unknown 03/23/2024 4:48 PM EST 03/23/2024 5:31 PM EST Narrative [facility] ROSARIO - 03/30/2024 4:21 PM EST [facility] Received Date: us Alonzo Persaud MD LAB BLOOD ORDERABLES Final Result Performing Organization Address City/[facility]/ZIP Co de Phone Number [facility] [address] [facility] [address] [facility], [place] [address], [place] [phone] [employer] [facility] [address] [facility] [address] [facility], [place] [address], [place] [phone] * Urine Culture, Routine (03/23/2024 4:48 PM EST) [facility] Culture Mixed genital zachary isolated. These superficial bacteria are not indicative of a urinary tract infection. No further organism identification is warranted on this specimen. 03/24/2024 5:21 PM EST [employer] [facility] Urine Urine specimen collection, clean catch / Unknown Non-Blood Collection / Unknown 03/23/2024 4:48 PM EST 03/23/2024 6:19 PM EST Narrative [facility] ROSARIO - 03/24/2024 5:21 PM EST [facility] Received Date: MICRO NUMBER: [id number] SPECIMEN QUALITY: Adequate SOURCE: URINE CLEAN CATCH STATUS: FINAL If clinically indicated, recollect clean-catch, mid-stream urine and transfer immediately to Urine Culture Transport Tube. us Alonzo Persaud MD LAB MICROBIOLOGY - GENERAL ORDERABLES Final Result Performing Organization Address City/[facility]/ZIP Co de Phone Number PHILLIP ROSARIO [address] [facility] [address]rd Floor, [place] [address], [place] [phone] [employer] [facility] [address], [place] [address], [place] [phone] * (ABNORMAL) FELI Specific Antibody w/Reflex to [place] (03/23/2024 4:48 PM EST) [facility] FELI Screen, Immunoassay POSITIVE (A) NEGATIVE 03/25/2024 12:23 PM EST [employer] [facility] Comment: A positive FELI Multiplex indicates the presence of detectable antibodies to one or more of the component analytes consisting of double stranded DNA (dsDNA), chromatin, ribonucleoprotein (ASPHALT SPREADER), Mojica/ASPHALT SPREADER (Sm/ASPHALT SPREADER), Mojica (Sm), SS-A, SS-B, Bozena-1, centromere B, Scl-70 and ribosomal P. Further laboratory testing may be considered if clinically indicated. For additional information, please refer to http://education.StickyADS.tv/faq/YQV188 (This link is being provided for informational/ educational purposes only.) ?? Blood Structure of peripheral vein / Unknown Venipuncture / Unknown 03/23/2024 4:48 PM EST 03/23/2024 5:31 PM EST Narrative [facility] - 03/25/2024 12:23 PM EST [facility] Received Date: Alonzo Persaud MD LAB BLOOD ORDERABLES Final Result Performing Organization Address City/[facility]/ZIP Co de Phone Number [facility] [address] [facility] [address] [facility], [place] [address], [place] [phone] [employer] [facility] [address], [place] [address], [place] [phone] * (ABNORMAL) Lactate Dehydrogenase (03/23/2024 4:48 PM EST) [facility] LDH 285(H) 135 - 225 U/L 03/23/2024 6:41 PM EST [facility] Blood Structure of peripheral vein / Unknown Venipuncture / Unknown 03/23/2024 4:48 PM EST 03/23/2024 5:31 PM EST Alonzo Persaud MD LAB BLOOD ORDERABLES Final Result [facility] [address] [place] [address], [place] * Gamma Glutamyl Transferase (03/23/2024 4:48 PM EST) GGT 35 5 - 61 U/L 03/23/2024 6:09 PM EST [facility] Blood Structure of peripheral vein / Unknown Venipuncture / Unknown 03/23/2024 4:48 PM EST 03/23/2024 5:31 PM EST Alonzo Persaud MD LAB BLOOD ORDERABLES Final Result [facility] [address] [place] [address], [place] * (ABNORMAL) IgA (03/23/2024 4:48 PM EST) Immunoglobulin A 319(H) 47 - 310 mg/dL 03/24/2024 8:01 AM EST [employer] [facility] Blood Structure of peripheral vein / Unknown Venipuncture / Unknown 03/23/2024 4:48 PM EST 03/23/2024 5:31 PM EST Narrative [facility] - 03/24/2024 8:01 AM EST [facility] Received Date: Alonzo Persaud MD LAB BLOOD ORDERABLES Final Result Performing Organization Address City/[facility] Co de Phone Number [facility] [address] [facility] [address] [facility], [place] [address], [place] [phone] [employer] [facility] [address] [facility] [address]rd Floor, [place] [address], [place] [phone] * IgM (03/23/2024 4:48 PM EST) Immunoglobulin M 80 50 - 300 mg/dL 03/24/2024 8:01 AM EST [employer] [facility] Blood Structure of peripheral vein / Unknown Venipuncture / Unknown 03/23/2024 4:48 PM EST 03/23/2024 5:31 PM EST Narrative [facility] - 03/24/2024 8:01 AM EST [facility] Received Date: Alonzo Persaud MD LAB BLOOD ORDERABLES Final Result [facility] [address] [facility] [address] Floor, [place] [address], [place] [phone] [employer] [facility] [address] [facility] [address]rd Floor, [place] [address], [place] [phone] * IgG (03/23/2024 4:48 PM EST) IgG, Serum 1448 600 - 1640 mg/dL 03/24/2024 8:01 AM EST [employer] [facility] Blood Structure of peripheral vein / Unknown Venipuncture / Unknown 03/23/2024 4:48 PM EST 03/23/2024 5:31 PM EST Narrative [facility] - 03/24/2024 8:01 AM EST [facility] Received Date: Alonzo Persaud MD LAB BLOOD ORDERABLES Final Result Performing Organization Address City/[facility]/ZIP Co de Phone Number [facility] [address] [facility] [address] [facility], [place] [address], [place] [phone] [employer] [facility] [address], [place] [address], [place] [phone] * Ferritin (03/23/2024 4:48 PM EST) Ferritin 279.0 11.0 - 306.0 ng/mL 03/23/2024 6:09 PM EST [facility] CLINICAL PATHOLOGY LABORATORY Blood Structure of peripheral vein / Unknown Venipuncture / Unknown 03/23/2024 4:48 PM EST 03/23/2024 5:31 PM EST Alonzo Persaud MD LAB BLOOD ORDERABLES Final Result [facility] CLINICAL PATHOLOGY LABORATORY [address] [place] [address], [place] * XR Hips Bilateral 5+ vw W Pelvis (03/23/2024 4:27 PM EST) Anatomical Region Laterality Modality Body, Pelvis, Hip Bilateral Computed Radio graphy 03/23/2024 5:21 PM EST Impressions 03/23/2024 6:11 PM EST FINDINGS/IMPRESSION: Cervical spine: Status post ACDF at C5-C6. ??Intact hardware. ??Mild straightening of the cervical spine. ??Degenerative disc and facet disease in the cervical spine predominantly at C4-C5 and C6-C7. ??Atlantodental interval maintained. ??Prevertebral soft tissues unremarkable. Bilateral shoulders: No acute fracture or dislocation. ??Glenohumeral alignment maintained. ??Mild acromioclavicular osteoarthritis. No calcific tendinopathy. ??Osseous structures appears demineralized. ??Soft tissues unremarkable. Pelvis and hips: No acute fracture or dislocation. ??Mild hip osteoarthritis bilaterally. ??Degenerative changes lower lumbar spine, sacroiliac joints and pubic symphysis. ??Transitional lumbosacral anatomy. ??Sacrum partly obscured. 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 ??Soft tissues unremarkable. If this radiology report contains a blank impression section, it is an incomplete radiology report. ??Please contact the interpreting radiologist or applicable radiology division as soon as possible to obtain the completed interpretation. ? Workstation ID: [id number] Narrative 03/23/2024 6:11 PM EST COMPARISON: None. ?? Resulting Agency Comment [id number] Procedure Note Augusto Buck MD - 03/23/2024 COMPARISON: None. IMPRESSION: FINDINGS/IMPRESSION: Cervical spine: Status post ACDF at C5-C6. Intact hardware. Mildstraightening of the cervical spine. Degenerative disc and facet diseasein the cervical spine predominantly at C4-C5 and C6-C7. Atlantodentalinterval maintained. Prevertebral soft tissues unremarkable. Bilateral shoulders: No acute fracture or dislocation. Glenohumeralalignment maintained. Mild acromioclavicular osteoarthritis. No calcifictendinopathy. Osseous structures appears demineralized. Soft tissuesunremarkable. Pelvis and hips: No acute fracture or dislocation. Mild hiposteoarthritis bilaterally. Degenerative changes lower lumbar spine,sacroiliac joints and pubic symphysis. Transitional lumbosacral anatomy.Sacrum partly obscured. Small amorphous calcification adjacent to theright greater trochanter possibly related to hydroxy appetite depositiondisease. Soft tissues unremarkable. If this radiology report contains a blank impression section, it is anincomplete radiology report. Please contact the interpreting radiologistor applicable radiology division as soon as possible to obtain thecompleted interpretation. Workstation ID: [id number] us Alonzo Persaud MD IMG XR PROCEDURES Final Re sult * XR Shoulder 2+ vw Right (03/23/2024 4:27 PM EST) Anatomical Region Laterality Modality Upper Extremities, Shoulder Right Comp uted Radiography 03/23/2024 5:21 PM EST Impressions 03/23/2024 6:11 PM EST FINDINGS/IMPRESSION: Cervical spine: Status post ACDF at C5-C6. ??Intact hardware. ??Mild straightening of the cervical spine. ??Degenerative disc and facet disease in the cervical spine predominantly at C4-C5 and C6-C7. ??Atlantodental interval maintained. ??Prevertebral soft tissues unremarkable. Bilateral shoulders: No acute fracture or dislocation. ??Glenohumeral alignment maintained. ??Mild acromioclavicular osteoarthritis. No calcific tendinopathy. ??Osseous structures appears demineralized. ??Soft tissues unremarkable. Pelvis and hips: No acute fracture or dislocation. ??Mild hip osteoarthritis bilaterally. ??Degenerative changes lower lumbar spine, sacroiliac joints and pubic symphysis. ??Transitional lumbosacral anatomy. ??Sacrum partly obscured. 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 ??Soft tissues unremarkable. If this radiology report contains a blank impression section, it is an incomplete radiology report. ??Please contact the interpreting radiologist or applicable radiology division as soon as possible to obtain the completed interpretation. ? Workstation ID: [id number] Narrative 03/23/2024 6:11 PM EST COMPARISON: None. ?? Resulting Agency Comment [id number] Procedure Note Augusto Buck MD - 03/23/2024 COMPARISON: None. IMPRESSION: FINDINGS/IMPRESSION: Cervical spine: Status post ACDF at C5-C6. Intact hardware. Mildstraightening of the cervical spine. Degenerative disc and facet diseasein the cervical spine predominantly at C4-C5 and C6-C7. Atlantodentalinterval maintained. Prevertebral soft tissues unremarkable. Bilateral shoulders: No acute fracture or dislocation. Glenohumeralalignment maintained. Mild acromioclavicular osteoarthritis. No calcifictendinopathy. Osseous structures appears demineralized. Soft tissuesunremarkable. Pelvis and hips: No acute fracture or dislocation. Mild hiposteoarthritis bilaterally. Degenerative changes lower lumbar spine,sacroiliac joints and pubic symphysis. Transitional lumbosacral anatomy.Sacrum partly obscured. Small amorphous calcification adjacent to theright greater trochanter possibly related to hydroxy appetite depositiondisease. Soft tissues unremarkable. If this radiology report contains a blank impression section, it is anincomplete radiology report. Please contact the interpreting radiologistor applicable radiology division as soon as possible to obtain thecompleted interpretation. Workstation ID: [id number] us Alonzo Persaud MD IMG XR PROCEDURES Final Re sult * XR Shoulder 2+ vw Left (03/23/2024 4:27 PM EST) Anatomical Region Laterality Modality Upper Extremities, Shoulder Left Comp uted Radiography 03/23/2024 5:21 PM EST Impressions 03/23/2024 6:11 PM EST FINDINGS/IMPRESSION: Cervical spine: Status post ACDF at C5-C6. ??Intact hardware. ??Mild straightening of the cervical spine. ??Degenerative disc and facet disease in the cervical spine predominantly at C4-C5 and C6-C7. ??Atlantodental interval maintained. ??Prevertebral soft tissues unremarkable. Bilateral shoulders: No acute fracture or dislocation. ??Glenohumeral alignment maintained. ??Mild acromioclavicular osteoarthritis. No calcific tendinopathy. ??Osseous structures appears demineralized. ??Soft tissues unremarkable. Pelvis and hips: No acute fracture or dislocation. ??Mild hip osteoarthritis bilaterally. ??Degenerative changes lower lumbar spine, sacroiliac joints and pubic symphysis. ??Transitional lumbosacral anatomy. ??Sacrum partly obscured. 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 ??Soft tissues unremarkable. If this radiology report contains a blank impression section, it is an incomplete radiology report. ??Please contact the interpreting radiologist or applicable radiology division as soon as possible to obtain the completed interpretation. ? Workstation ID: [id number] Narrative 03/23/2024 6:11 PM EST COMPARISON: None. ?? Resulting Agency Comment [id number] Procedure Note Augusto Buck MD - 03/23/2024 COMPARISON: None. IMPRESSION: FINDINGS/IMPRESSION: Cervical spine: Status post ACDF at C5-C6. Intact hardware. Mildstraightening of the cervical spine. Degenerative disc and facet diseasein the cervical spine predominantly at C4-C5 and C6-C7. Atlantodentalinterval maintained. Prevertebral soft tissues unremarkable. Bilateral shoulders: No acute fracture or dislocation. Glenohumeralalignment maintained. Mild acromioclavicular osteoarthritis. No calcifictendinopathy. Osseous structures appears demineralized. Soft tissuesunremarkable. Pelvis and hips: No acute fracture or dislocation. Mild hiposteoarthritis bilaterally. Degenerative changes lower lumbar spine,sacroiliac joints and pubic symphysis. Transitional lumbosacral anatomy.Sacrum partly obscured. Small amorphous calcification adjacent to theright greater trochanter possibly related to hydroxy appetite depositiondisease. Soft tissues unremarkable. If this radiology report contains a blank impression section, it is anincomplete radiology report. Please contact the interpreting radiologistor applicable radiology division as soon as possible to obtain thecompleted interpretation. Workstation ID: [id number] us Alonzo Persaud MD IMG XR PROCEDURES Final Re sult * X-Ray Cervical Spine 2 or 3 Views (03/23/2024 4:27 PM EST) Anatomical Region Laterality Modality Spine, C-spine Computed Radiogr aphy 03/23/2024 5:21 PM EST Impressions 03/23/2024 6:11 PM EST FINDINGS/IMPRESSION: Cervical spine: Status post ACDF at C5-C6. ??Intact hardware. ??Mild straightening of the cervical spine. ??Degenerative disc and facet disease in the cervical spine predominantly at C4-C5 and C6-C7. ??Atlantodental interval maintained. ??Prevertebral soft tissues unremarkable. Bilateral shoulders: No acute fracture or dislocation. ??Glenohumeral alignment maintained. ??Mild acromioclavicular osteoarthritis. No calcific tendinopathy. ??Osseous structures appears demineralized. ??Soft tissues unremarkable. Pelvis and hips: No acute fracture or dislocation. ??Mild hip osteoarthritis bilaterally. ??Degenerative changes lower lumbar spine, sacroiliac joints and pubic symphysis. ??Transitional lumbosacral anatomy. ??Sacrum partly obscured. 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 ??Soft tissues unremarkable. If this radiology report contains a blank impression section, it is an incomplete radiology report. ??Please contact the interpreting radiologist or applicable radiology division as soon as possible to obtain the completed interpretation. ? Workstation ID: [id number] Narrative 03/23/2024 6:11 PM EST COMPARISON: None. ?? Resulting Agency Comment [id number] Procedure Note Augusto Buck MD - 03/23/2024 COMPARISON: None. IMPRESSION: FINDINGS/IMPRESSION: Cervical spine: Status post ACDF at C5-C6. Intact hardware. Mildstraightening of the cervical spine. Degenerative disc and facet diseasein the cervical spine predominantly at C4-C5 and C6-C7. Atlantodentalinterval maintained. Prevertebral soft tissues unremarkable. Bilateral shoulders: No acute fracture or dislocation. Glenohumeralalignment maintained. Mild acromioclavicular osteoarthritis. No calcifictendinopathy. Osseous structures appears demineralized. Soft tissuesunremarkable. Pelvis and hips: No acute fracture or dislocation. Mild hiposteoarthritis bilaterally. Degenerative changes lower lumbar spine,sacroiliac joints and pubic symphysis. Transitional lumbosacral anatomy.Sacrum partly obscured. Small amorphous calcification adjacent to theright greater trochanter possibly related to hydroxy appetite depositiondisease. Soft tissues unremarkable. If this radiology report contains a blank impression section, it is anincomplete radiology report. Please contact the interpreting radiologistor applicable radiology division as soon as possible to obtain thecompleted interpretation. Workstation ID: [id number] us Alonzo Persaud MD IMG XR PROCEDURES Final Re sult * CT Chest WO Contrast (02/16/2024 12:20 PM EST) Anatomical Region Laterality Modality Body Computed Tomogra phy 02/16/2024 1:21 PM EST Impressions 02/18/2024 11:19 AM EST 1. ??Diffuse heterogenous attenuation of the background lung parenchyma, likely related to respiratory motion. ??Superimposed mild pulmonary edema is not excluded. 2. ??No displaced rib fractures or pleural effusions to explain pleurodynia. ?? If this radiology report contains a blank impression section, it is an incomplete radiology report. ??Please contact the interpreting radiologist or applicable radiology division as soon as possible to obtain the completed interpretation. ? Workstation ID: [id number] Up-to-date CT equipment and radiation dose reduction techniques were employed. CTDIvol: 20.1 mGy. DLP: 572 mGy-cm. Narrative 02/18/2024 11:19 AM EST Indication: ??chest wall pain. rib pains and sternal pain R07.81 - I10 - Pleurodynia, Comparison: Chest radiograph 01/13/2024. Technique: CT scan of the chest was performed without the administration of intravenous contrast material. Axial, coronal and sagittal MPRs, axial MIP and coronal MinIP reformations were performed. Dose: For radiation dose control at least one of the following techniques was used in this procedure (1) Automated exposure control (2) Adjustment of the mA and/or kV according to patient size (3) Use of iterative reconstruction technique. FINDINGS: Neck and thoracic inlet: Enlarged heterogeneous left lobe of thyroid with punctate calcifications. Mediastinum and large vessels: ? Aorta No abnormality. Pulmonary arteries Pulmonary artery is not dilated. ?? Esophagus No abnormality. Other mediastinal findings None. Heart: Cardiac size Heart size is normal. Coronary arteries No visible coronary calcifications. Valves No valvular calcifications. ?? Pericardium No pericardial effusion. Lymph nodes: Supraclavicular and axillary Normal sized lymph nodes, no enlarged lymph nodes. Mediastinal Normal sized lymph nodes, no enlarged lymph nodes. Hilar Unremarkable hilar contours. Absence of intravenous contrast limits evaluation. Others None. Lung parenchyma: Bibasilar dependent atelectasis. ??Diffuse heterogenous attenuation of the background lung parenchyma, likely related to respiratory motion. ?? Airways: Central airways are clear. Pleura: No pleural effusions or pneumothorax. Upper abdomen: Absence of intravenous contrast limits sensitivity for detecting solid organ findings. ??Diffuse hepatic steatosis. ?? Chest wall: No chest wall mass. Bones and soft tissues: No suspicious lytic or blastic lesions. ??Mild degenerative changes in the spine. ?? Resulting Agency Comment [id number] Procedure Note Wendi Hollingsworth MD - 02/18/2024 Indication: chest wall pain. rib pains and sternal pain R07.81 - I10 - Pleurodynia, Comparison: Chest radiograph 01/13/2024. Technique: CT scan of the chest was performed without the administrationof intravenous contrast material. Axial, coronal and sagittal MPRs, axialMIP and coronal MinIP reformations were performed. Dose: For radiation dose control at least one of the following techniqueswas used in this procedure (1) Automated exposure control (2) Adjustmentof the mA and/or kV according to patient size (3) Use of iterativereconstruction technique. FINDINGS: Neck and thoracic inlet: Enlarged heterogeneous left lobe of thyroid with punctatecalcifications. Mediastinum and large vessels: Aorta No abnormality. Pulmonary arteries Pulmonary artery is not dilated. Esophagus No abnormality. Other mediastinal findings None. Heart: Cardiac size Heart size is normal. Coronary arteries No visible coronary calcifications. Valves No valvular calcifications. Pericardium No pericardial effusion. Lymph nodes: Supraclavicular and axillary Normal sized lymph nodes, no enlarged lymph nodes. Mediastinal Normal sized lymph nodes, no enlarged lymph nodes. Hilar Unremarkable hilar contours. Absence of intravenous contrast limitsevaluation. Others None. Lung parenchyma: Bibasilar dependent atelectasis. Diffuse heterogenous attenuation of thebackground lung parenchyma, likely related to respiratory motion. Airways: Central airways are clear. Pleura: No pleural effusions or pneumothorax. Upper abdomen: Absence of intravenous contrast limits sensitivity for detecting solidorgan findings. Diffuse hepatic steatosis. Chest wall: No chest wall mass. Bones and soft tissues: No suspicious lytic or blastic lesions. Mild degenerative changes in thespine. IMPRESSION: 1. Diffuse heterogenous attenuation of the background lung parenchyma,likely related to respiratory motion. Superimposed mild pulmonary edemais not excluded. 2. No displaced rib fractures or pleural effusions to explainpleurodynia. If this radiology report contains a blank impression section, it is anincomplete radiology report. Please contact the interpreting radiologistor applicable radiology division as soon as possible to obtain thecompleted interpretation. Workstation ID: [id number] Up-to-date CT equipment and radiation dose reduction techniques wereemployed. CTDIvol: 20.1 mGy. DLP: 572 mGy-cm. Alonzo Persaud MD [facility] [place] Final Re sult * Hepatitis C Antibody w/Reflex to HCV RNA, Quantitative PCR (06/04/2022 5:43 PM EDT) Hepatitis C Antibody NON-REACT BETO NON-REACT BETO 06/05/2022 3:[address] Signal To Cut-Off 0.02 <1.00 06/05/2022 3:[address] Comment: HCV antibody was non-reactive. There is no laboratory evidence of HCV infection. In most cases, no further action is required. However, if recent HCV exposure is suspected, a test for HCV RNA (test code 66856) is suggested. For additional information please refer to http://education.[employer]/faq/KKI64t9 (This link is being provided for informational/ educational purposes only.) Blood Structure of peripheral vein / Unknown Venipuncture / Unknown 06/04/2022 5:43 PM EDT 06/04/2022 6:08 PM EDT Narrative [facility] - 06/05/2022 3:44 AM EDT [facility] Received Date:[id number] us Alonzo Persaud MD LAB BLOOD ORDERABLES Final Result [facility] [address] [facility] [address] [facility] [address], [place] [address], [place] [phone] [employer] [facility] [address] [facility] [address], [place] [address], [place] [phone] from Last 3 Months or Most Recently Relevant to Health Maintenance Insurance [facility] [id number] [id number] Care Teams Boom Operator Relationship Specialty Start Date End Date Cristian Chacon MD [address] [place] [address] PCP - General 06/04/22
--- OUTSIDE RECORDS SUMMARY | 2024-05-02 14:19 | XMS_ITS | Encounter Summary ---
Author Organization [employer] Address [address] [facility] [address] [place] [address] Care Team Providers Care Sterile Tech Name Role Phone Cristian Chacon MD Primary Care Prov ider Reason for Visit * Reason Comments Care Coordination Outreach Encounter Details Date Type Department Care Team (Latest Contact Info) Description 04/27/2024 Patient Outreach [facility] [address] [place], [place] [phone] Cristian Chacon MD [address] [place] [address] Care Coordination (Outreach) Social History Tobacco Use [...] encounter Progress Notes * Savana Rico - 04/27/2024 3:30 PM EST CHW Savana Rico placed outbound call to patient. No answer at this time. LVM introducing herself from [facility] CM Department, reminding patient of initial assessment appt via telephone on 04/27/24 @ 1:00 PM with Adult Complex Care program services. Requested call back to , as well as for any additional questions or concerns. documented in this encounter Plan of Treatment Upcoming Encounters Date Type Department Care Team ([facility] st Contact Info) Description 05/17/2024 1:30 PM EDT Office Visit [facility] [address] [place] [address] Cristian Chacon MD [address] [place] [address] documented as of this encounter Visit Diagnoses Not on filedocumented in this encounter Additional Health Concerns Assessment Noted Time PHQ-9 Depression Total Score: 16 024 1:19 PM EDT documented as of this encounter Care Teams Sterile Tech Relationship Specialty Start Date End Date Cristian Chacon MD [address] [place] [address] PCP - General Internal Medicine 03/17/19 Ivy Payne Surgery TechnicianSecondary School Principal 11/26/23 documented as of this encounter
--- OUTSIDE RECORDS SUMMARY | 2024-05-02 14:19 | XMS_ITS | Clinical Summary ---
Author Organization [facility] Address [address] [place] [address] Phone Care Team Providers Care Traffic Law Attorney Name Role Phone Cristian Chacon Primary Care Provide r Allergies Active Allergy Reactions Criticality Noted Date Comments Aspirin 02/17/2017 Cyclobenzaprine 08/24/2017 Duloxetine 08/24/2017 Meperidine 08/24/2017 Morphine 02/17/2017 Penicillin G 02/17/2017 Medications docusate sodium (COLACE) 100 mg capsule Take 100 mg by mouth 2 times daily. Active diclofenac (VOLTAREN) 75 mg EC tablet Take 75 mg by mouth 2 times daily. Active pregabalin (LYRICA) 25 mg capsule Take 25 mg by mouth 2 times daily. Active oxyBUTYnin (DITROPAN) 5 mg tablet Take 5 mg by mouth daily. Active ketoconazole (NIZORAL) 2 % cream Apply 1 Application topically 1 (one) time each day. Active SUMAtriptan (IMITREX) 50 mg tablet Take 50 mg by mouth daily as needed. May repeat dose once after 2 hours, if needed. Active gabapentin (NEURONTIN) 300 mg capsule Take 300 mg by mouth 3 times daily. Active fluticasone HFA (FLOVENT HFA) 220 mcg/actuation inhaler Inhale 1 Puff into the lungs 2 times daily. Active salicylic acid 40 % adhesive patch,medicated Apply 1 Patch topically daily. To callus area on the right foot. 8 Active metroNIDAZOLE (METROGEL) 0.75 % (37.5mg/5 gram) vaginal gel Insert vaginally at bedtime x 5 nights 7 Active clotrimazole-be tamethasone (LOTRISONE) 1-0.05 % cream Apply topically to affected area twice daily for no more than 10 days 7 Active zolpidem tartrate (AMBIEN ORAL) Take by mouth. A ctive ALBUTEROL INHL Inhale into the lungs. Active levothyroxine sodium (SYNTHROID ORAL) Take by mouth. Activ e fluticasone propion-salmete roL (Advair HFA) 230-21 mcg/actuation inhaler 7 Active loratadine (CLARITIN) 10 mg tablet 7 Active meclizine (ANTIVERT) 25 mg tablet 7 Active omeprazole (PriLOSEC) [address] capsule 7 Active LORAZEPAM ORAL Take by mouth. Active oseltamivir (TAMIFLU) 75 mg capsule Take 1 capsule (75 mg total) by mouth every 12 (twelve) hours for 5 days. 10 capsule 5 04/19/19 25 predniSONE (DELTASONE) 50 mg tablet Take 1 tablet (50 mg total) by mouth 1 (one) time each day for 5 days. 5 each 5 04/19/19 25 Active Problems Problem Noted Date Diagnosed Date Painful scar 08/24/2017 Breast asymmetry 07/03/2017 Depression with anxiety 02/18/2017 Gastroesophageal reflux disease without esophagi tis 02/18/2017 Hypothyroidism 02/18/2017 Encounters Date Type Department Care Team Description 04/13/2024 10:47 PM EST - 04/14/2024 3:00 AM [facility] Emergency [address] [place] [address] Seth Jason MD URI due to influenza A virus (Primary Dx); Chest wall pain Discharge Disposition: Home or Self Care 03/19/2024 1:30 PM EST - 03/19/2024 8:28 PM [facility] Emergency [address] [place] [address] Ran Adams MD Goebel, Mathew, MD Other chest pain (Primary Dx); Acute generalized body pain; Elevated d-dimer Discharge Disposition: Home or Self Care 02/06/2024 12:50 PM EST - 02/06/2024 5:37 PM EST Emergency [facility] Emergency [address] [place] [address] Jose Quezada, Starr Salcido DO Chest pain, unspecified type (Primary Dx); Myalgia Discharge Disposition: Home or Self Care from Last 3 Months Surgical History Surgery Date Site/Laterality Comments CARPAL TUNNEL RELEASE Left CATARACT EXTRACTION SECTION HYSTERECTOMY CYST REMOVAL on foot BLADDER bladder mesh BREAST REDUCTION Medical History Medical History Date Comments Fibromyalgia Asthma Diabetes mellitus (CMS/HCC) Hypertension Migraine Lupus (systemic lupus erythematosus) (CMS/HCC) GERD (gastroesophageal reflux disease) Gastritis Anxiety Depression Bronchitis Pneumonia Social History Tobacco Use Types Packs/Day Years Used Date Smoking Tobacco: Never Smokeless Tobacco: Never Tobacco Cessation:Counseling Given: Not Answered Alcohol Use Standard Drinks/Week Comments Never 0 (1 standard drink = 0.6 oz pur e alcohol) Comments Unknown Sex and Gender Information Value Date Recorded Sex Assigned at Female 03/19/2024 3:26 PM EST Legal Sex Female 12:18 AM EST Gender Identity Female 03/19/2024 3:26 PM EST Sexual Orientation Not on file Obstetrics History Last Filed Vital Signs Vital Sign Reading [...] Mass Index 36.58 04/13/2024 12:36 PM EST Plan of Treatment Health Maintenance Due Date Last Done Comments Diabetes: Annual Foot Exam 1978 Diabetes: Annual Retina Eye Exam 1978 Hepatitis B Vaccines (1 of 3 - 19+ 3-dose series) 07/20/1987 Pneumococcal Vaccine: 50+ Years (3 of 3 - PCV20 or PCV21) 2018 10/14/2010, 10/14/2010 Pneumococcal Vaccine: Pediatrics (0 to 5 Years) and At-Risk Patients (6 to 64 Years) (3 of 3 - PCV20 or PCV21) 2018 10/14/2010, 10/14/2010 Zoster Vaccines (2 of 2) 06/08/2019 04/13/2019 Breast Cancer Screening 02/28/2020 02/27/2018 DTaP,Tdap,and Td Vaccines (2 - Td or Tdap) 10/14/2020 10/14/2010 Colorectal Cancer Screening: Colonoscopy 02/02/2022 Social Influencers of Health Screening 02/02/2022 Diabetes: Blood Sugar Control Test (HGBA1C) 05/17/2024 11/18/2023 Depression Screening 12/21/2024 12/22/2023 Diabetes: Annual Urine Albumin-Creatinine Ratio (uACR) 03/23/2025 03/23/2024, 03/23/2024, 11/11/2023, Additional history exists Diabetes: Annual GFR (Glomerular Filtration Rate) 04/14/2025 04/14/2024, 03/23/2024, 03/19/2024, Additional history exists Hypertension/CHF/CAD Annual BMP Blood Test 04/14/2025 04/14/2024, 03/23/2024, 03/19/2024, Additional history exists Cholesterol Screening (Lipid Panel) 11/26/2026 11/26/2021, 11/24/2014 HIV Screening Completed 09/29/2013 Hepatitis C Screening Completed 06/04/2022 Influenza Vaccine Completed 12/10/2023, , 01/04/2022, Additional history exists COVID-19 Vaccine Completed 12/18/2023, 06/2021, 03/22/2021, Additional history exists HIB Vaccines Aged Out No longer eligi ble based on patient's age to complete this topic HPV Vaccines Aged Out No longer eligi ble based on patient's age to complete this topic Hepatitis A Vaccines Aged Out No long er eligible based on patient's age to complete this topic IPV Vaccines Aged Out No longer eligi ble based on patient's age to complete this topic MMR Vaccines Aged Out No longer eligi ble based on patient's age to complete this topic Meningococcal ACWY Vaccine Aged Out N o longer eligible based on patient's age to complete this topic Meningococcal B Vacine Aged Out No lo nger eligible based on patient's age to complete this topic RSV Immunization Patients Under 20 months Aged Out No longer eligible based on patient's age to complete this topic Varicella Vaccines Aged Out No longer eligible based on patient's age to complete this topic Procedures Procedure Name Priority Date/Time Associated Diagnosis Comments CBC WITH AUTO DIFFERENTIAL STAT 04/14/2024 12:55 AM EST LIPASE STAT 04/14/2024 12:55 AM EST TROPONIN I HIGH SENSITIVITY STAT 04/14/2024 12:55 AM EST COMPREHENSIVE METABOLIC PANEL STAT 04/14/2024 12:55 AM EST CBC AND DIFFERENTIAL STAT 04/14/2024 12:55 AM EST ECG 12-LEAD STAT 04/14/2024 12:41 AM EST ECG ANNOTATED 04/14/2024 XR CHEST 2 VIEWS STAT 04/13/2024 11:5 5 PM EST RESPIRATORY VIRUS PANEL MOLECULAR STUDY STAT 04/13/2024 1:[address] ANGIO CHEST WO AND/OR W CONTRAST STAT 03/19/2024 7:30 PM EST Other chest pain Elevated d-dimer D-DIMER STAT 03/19/2024 5:25 PM EST TROPONIN I HIGH SENSITIVITY STAT 03/19/2024 5:25 PM EST XR CHEST 2 VIEWS STAT 03/19/2024 4:11 PM EST CBC WITH AUTO DIFFERENTIAL STAT 03/19/2024 2:53 PM EST B-TYPE NATRIURETIC PEPTIDE STAT 03/19/2024 2:53 PM EST MAGNESIUM STAT 03/19/2024 2:53 PM EST LIPASE STAT 03/19/2024 2:53 PM EST COMPREHENSIVE METABOLIC PANEL STAT 03/19/2024 2:53 PM EST CBC AND DIFFERENTIAL STAT 03/19/2024 2:53 PM EST TROPONIN I HIGH SENSITIVITY STAT 03/19/2024 2:53 PM EST ECG 12-LEAD STAT 03/19/2024 1:38 PM EST ECG ANNOTATED 03/19/2024 TROPONIN I HIGH SENSITIVITY STAT 02/06/2024 3:43 PM EST XR CHEST 2 VIEWS STAT 02/06/2024 3:40 PM EST RESPIRATORY VIRUS PANEL MOLECULAR STUDY STAT 02/06/2024 3:37 PM EST ACTIVATED PARTIAL THROMBOPLASTIN TIME STAT 02/06/2024 1:34 PM EST PROTHROMBIN TIME WITH INR STAT 02/06/2024 1:34 PM EST CBC WITH AUTO DIFFERENTIAL STAT 02/06/2024 1:34 PM EST B-TYPE NATRIURETIC PEPTIDE STAT 02/06/2024 1:34 PM EST MAGNESIUM STAT 02/06/2024 1:34 PM EST LIPASE STAT 02/06/2024 1:34 PM EST COMPREHENSIVE METABOLIC PANEL STAT 02/06/2024 1:34 PM EST CBC AND DIFFERENTIAL STAT 02/06/2024 1:34 PM EST TROPONIN I HIGH SENSITIVITY STAT 02/06/2024 1:34 PM EST ECG 12-LEAD STAT 02/06/2024 12:06 PM EST ECG ANNOTATED 02/06/2024 ECG OUTSIDE 02/06/2024 DIANE SCREENING DIGITAL Routine 02/27/2018 5:16 PM EST Encounter for screening mammogram for malignant neoplasm of breast from Last 3 Months or Most Recently Relevant to Health Maintenance Results * Troponin I high sensitivity (04/14/2024 12:55 AM EST) Only the most recent of5 resultswithin the time period is included. [facility] High Sensitivity Troponin I 9 <=54 ng/L LAB CHEMISTRY METHOD 04/14/2024 1:47 AM EST [facility] Blood Venous blood specimen / Unknown Venipuncture / Unknown 04/14/2024 12:55 AM EST 04/14/2024 1:22 AM EST Narrative [facility] - 04/14/2024 1:47 AM EST High levels of biotin in samples may falsely decrease hsTroponin values. ??Use caution when interpreting hsTroponin results in patients taking biotin who exhibit renal impairment (eGFR <60) or in patients taking more than 20 mg/day of biotin. us Yotam Block PA LAB BLOOD ORDERABLES Final Resul t [facility] [address] [place] [address], * (ABNORMAL) CBC auto differential (04/14/2024 12:55 AM EST) Only the most recent of3 resultswithin the time period is included. [facility] WBC 5.7 4.8 - 10.8 K/[facility] LAB HEMETOLOGY METHOD 04/14/2024 1:27 AM EST [facility] RBC 4.10 3.80 - 4.80 M/[facility] LAB HEMETOLOGY METHOD 04/14/2024 1:27 AM EST [facility] Hemoglobin 11.9 11.5 - 16.0 g/dL LAB HEMETOLOGY METHOD 04/14/2024 1:27 AM [facility] Hematocrit 37.2 35.0 - 47.0 % LAB HEMETOLOGY METHOD 04/14/2024 1:27 AM [facility] MCV 90.7 79.0 - 98.0 FL LAB HEMETOLOGY METHOD 04/14/2024 1:27 AM [facility] MCH 29.0 27.0 - 32.0 pcg LAB HEMETOLOGY METHOD 04/14/2024 1:27 AM [facility] MCHC 32.0 32.0 - 37.0 g/dL LAB HEMETOLOGY METHOD 04/14/2024 1:27 AM [facility] RDW 13.9 11.0 - 15.0 % LAB HEMETOLOGY METHOD 04/14/2024 1:27 AM [facility] Platelets 326 130 - 400 K/mcL LAB HEMETOLOGY METHOD 04/14/2024 1:27 AM [facility] MPV 9.3 7.0 - 11.0 FL LAB HEMETOLOGY METHOD 04/14/2024 1:27 AM [facility] NRBC 0.0 <1.0 % LAB HEMETOLOGY METHOD 04/14/2024 1:27 AM [facility] NRBC Absolute 0.00 <0.10 K/mcL LAB HEMETOLOGY METHOD 04/14/2024 1:27 AM [facility] Neutrophils Relative 80.1 % LAB HEMETOLOGY METHOD 04/14/2024 1:27 AM [facility] Lymphocytes Relative 11.2 % LAB HEMETOLOGY METHOD 04/14/2024 1:27 AM [facility] Monocytes Relative 3.9 % LAB HEMETOLOGY METHOD 04/14/2024 1:27 AM [facility] Eosinophils Relative 3.5 % LAB HEMETOLOGY METHOD 04/14/2024 1:27 AM [facility] Basophils Relative 0.4 % LAB HEMETOLOGY METHOD 04/14/2024 1:27 AM [facility] Immature Granulocytes Relative 0.9 % LAB HEMETOLOGY METHOD 04/14/2024 1:27 AM [facility] Neutrophils Absolute 4.53 1.50 - 7.00 K/mcL LAB HEMETOLOGY METHOD 04/14/2024 1:27 AM [facility] Lymphocytes Absolute 0.63(L) 1.00 - 5.00 K/mcL LAB HEMETOLOGY METHOD 04/14/2024 1:27 AM [facility] Monocytes Absolute 0.22 0.20 - 1.00 K/mcL LAB HEMETOLOGY METHOD 04/14/2024 1:27 AM EST [facility] Eosinophils Absolute 0.20 0.00 - 0.50 K/mcL LAB HEMETOLOGY METHOD 04/14/2024 1:27 AM [facility] Basophils Absolute 0.02 0.00 - 0.20 K/mcL LAB HEMETOLOGY METHOD 04/14/2024 1:27 AM [facility] Immature Granulocytes Absolute 0.05(H) 0.00 - 0.03 K/mcL LAB HEMETOLOGY METHOD 04/14/2024 1:27 AM [facility] Blood Venous blood specimen / Unknown Venipuncture / Unknown 04/14/2024 12:55 AM EST 04/14/2024 1:22 AM EST us Ashley NELSON LAB BLOOD ORDERABLES Final Resul t [facility] [address] [place] [address], * Lipase (04/14/2024 12:55 AM EST) Only the most recent of3 resultswithin the time period is included. Lipase 58 13 - 75 unit/L LAB CHEMISTRY METHOD 04/14/2024 2:14 AM [facility] Blood Venous blood specimen / Unknown Venipuncture / Unknown 04/14/2024 12:55 AM EST 04/14/2024 1:22 AM EST Ashley NELSON LAB BLOOD ORDERABLES Final Resul t [facility] [address] [place] [address], [place] [phone] * (ABNORMAL) Comprehensive metabolic panel (04/14/2024 12:55 AM EST) Only the most recent of3 resultswithin the time period is included. [facility] Sodium 135 133 - 145 mmol/L LAB CHEMISTRY METHOD 04/14/2024 2:14 AM [facility] Potassium 4.2 3.5 - 5.5 mmol/L LAB CHEMISTRY METHOD 04/14/2024 2:14 AM [facility] Chloride 101 96 - 110 mmol/L LAB CHEMISTRY METHOD 04/14/2024 2:14 AM [facility] CO2 29 21 - 32 mmol/L LAB CHEMISTRY METHOD 04/14/2024 2:14 AM [facility] Anion Gap 5 3 - 11 LAB CHEMISTRY METHOD 04/14/2024 2:14 AM [facility] Comment:Rechecked. TB 2-13-2 5 Glucose 84 70 - 100 mg/dL LAB CHEMISTRY METHOD 04/14/2024 2:14 AM [facility] BUN 23 5 - 25 mg/dL LAB CHEMISTRY METHOD 04/14/2024 2:14 AM [facility] Creatinine 0.84 0.50 - 1.10 mg/dL LAB CHEMISTRY METHOD 04/14/2024 2:14 AM [facility] eGFR 82 >=60 mL/min/1. 73m2 LAB CHEMISTRY METHOD 04/14/2024 2:14 AM [facility] Comment:Calculation based on the??Chronic Kidney Disease Epidemiology Collaboration (CKD-EPI) equation refit??without adjustment for race. BUN/Creatinine Ratio 27.4 LAB CHEMISTRY METHOD 04/14/2024 2:14 AM [facility] Calcium 9.0 8.5 - 10.5 mg/dL LAB CHEMISTRY METHOD 04/14/2024 2:14 AM [facility] AST (SGOT) 20 10 - 42 unit/L LAB CHEMISTRY METHOD 04/14/2024 2:14 AM [facility] ALT (SGPT) 16 10 - 60 unit/L LAB CHEMISTRY METHOD 04/14/2024 2:14 AM [facility] Alkaline Phosphatase 54 42 - 121 unit/L LAB CHEMISTRY METHOD 04/14/2024 2:14 AM [facility] Total Protein 7.1 6.0 - 8.0 g/dL LAB CHEMISTRY METHOD 04/14/2024 2:14 AM [facility] Albumin 3.1(L) 3.2 - 5.0 g/dL LAB CHEMISTRY METHOD 04/14/2024 2:14 AM [facility] Total Bilirubin 0.4 0.0 - 1.4 mg/dL LAB CHEMISTRY METHOD 04/14/2024 2:14 AM [facility] Blood Venous blood specimen / Unknown Venipuncture / Unknown 04/14/2024 12:55 AM EST 04/14/2024 1:22 AM EST us Ashley NELSON LAB BLOOD ORDERABLES Final Resul t [facility] [address] [place] [address], * ECG 12 lead (04/14/2024 12:41 AM EST) Only the most recent of3 resultswithin the time period is included. Ventricular Rate ECG 102 BPM GEMUSE Atrial Rate 102 BPM GEMUSE P-R Interval 118 ms GEMUSE QRS Duration 66 ms GEMUSE Q-T Interval 326 ms GEMUSE QTc 424 ms GEMUSE P Wave [place] 37 degrees GEMUSE R E[place] 15 degrees GEMUSE T E[place] 29 degrees GEMUSE ECG Interpretation Sinus tachycardia Low voltage QRS Borderline ECG When compared with ECG of 19-MAR-2024 13:38, No significant change was found Confirmed by JOSE WARNER ([id number]) on 04/17/2024 8:42:22 AM GEMUSE 04/14/2024 12:4 1 AM EST 04/17/2024 8:42 AM EST Ashley NELSON ECG ORDERABLES Final Result GEMUSE * ECG-Annotated (04/14/2024) Only the most recent of3 resultswithin the time period is included. Provider Onbase MD ECG ORDERABLES Final Result * XR Chest 2 Views (04/13/2024 11:55 PM EST) Only the most recent of3 resultswithin the time period is included. Anatomical Region Laterality Modality Body Radiographic Amanda ging 04/14/2024 7:57 AM EST Impressions 04/14/2024 7:59 AM EST No pneumonia or edema. -------- FINAL REPORT -------- Dictated By: Peewee Rob Dictated Date: 04/14/2024 07:57 ET Assigned Physician: Peewee Rob Reviewed and Electronically Signed By: Peewee Rob Signed Date: 04/14/2024 07:59 ET Workstation ID: [id number] Transcribed By: Self Edit Transcribed Date: 04/14/2024 [...] Signed Date: 04/14/2024 07:59 ET Workstation ID: [id number] Transcribed By: Self Edit Transcribed Date: 04/14/2024 07:57 ET Seth Jason MD IMG XR PROCEDURES Final Result * (ABNORMAL) Respiratory virus panel molecular study (04/13/2024 1:02 PM EST) Only the most recent of2 resultswithin the time period is included. Pathologist [facility] Adenovirus Detection by PCR Not Detected Not Detected LAB MICROBIOLOGY METHOD 04/13/2024 2:09 PM [facility] Influenza B PCR Not Detected Not Detected LAB MICROBIOLOGY METHOD 04/13/2024 2:09 PM [facility] Coronavirus 229E Not Detected Not Detected LAB MICROBIOLOGY METHOD 04/13/2024 2:09 PM [facility] Coronavirus HKU1 Not Detected Not Detected LAB MICROBIOLOGY METHOD 04/13/2024 2:09 PM [facility] Coronavirus OC43 Not Detected Not Detected LAB MICROBIOLOGY METHOD 04/13/2024 2:09 PM [facility] Coronavirus NL63 Not Detected Not Detected LAB MICROBIOLOGY METHOD 04/13/2024 2:09 PM [facility] Parainfluenza Virus 1 Not Detected Not Detected LAB MICROBIOLOGY METHOD 04/13/2024 2:09 PM [facility] Parainfluenza Virus 2 Not Detected Not Detected LAB MICROBIOLOGY METHOD 04/13/2024 2:09 PM [facility] Parainfluenza Virus 3 Not Detected Not Detected LAB MICROBIOLOGY METHOD 04/13/2024 2:09 PM [facility] Parainfluenza Virus 4 Not Detected Not Detected LAB MICROBIOLOGY METHOD 04/13/2024 2:09 PM [facility] RSV PCR Not Detected Not Detected LAB MICROBIOLOGY METHOD 04/13/2024 2:09 PM [facility] Human Metapneumovirus A and B Not Detected Not Detected LAB MICROBIOLOGY METHOD 04/13/2024 2:09 PM [facility] Rhinovirus/Entero virus Not Detected Not Detected LAB MICROBIOLOGY METHOD 04/13/2024 2:09 PM [facility] Bordetella pertussis Not Detected Not Detected LAB MICROBIOLOGY METHOD 04/13/2024 2:09 PM [facility] Bordetella parapertussis Not Detected Not Detected LAB MICROBIOLOGY METHOD 04/13/2024 2:09 PM [facility] Influenza A H3 Detected(A ) Not Detected LAB MICROBIOLOGY METHOD 04/13/2024 2:09 PM [facility] Mycoplasma pneumo by PCR Not Detected Not Detected LAB MICROBIOLOGY METHOD 04/13/2024 2:09 PM [facility] Chlamydia pneumoniae Not Detected Not Detected LAB MICROBIOLOGY METHOD 04/13/2024 2:09 PM [facility] SARS COV-2 Not Detected Not Detected LAB MICROBIOLOGY METHOD 04/13/2024 2:09 PM [facility] Swab Both anterior nares / Unknown Non-blood Collection / Unknown 04/13/2024 1:02 PM EST 04/13/2024 1:02 PM EST Narrative [facility] - 04/13/2024 2:09 PM EST Testing was performed using the Nano ePrint Respiratory Pathogen PCR Assay. All results must [...] that are below the limit of detection. us Kely NELSON LAB MICROBIOLOGY - GEN ERAL ORDERABLES Final Result [facility] [address] [place] [address], * CT Angio Chest wo and/or w Contrast (03/19/2024 7:30 PM EST) Anatomical Region Laterality Modality Body Computed Tomogra phy 03/19/2024 7:50 PM EST Impressions 03/19/2024 7:50 PM EST Impression: 1. No pulmonary embolism, aortic dissection or focal pulmonary consolidation. 2. 2.6 cm left lobe lower pole thyroid nodule or retrosternal goiter. This document has been electronically signed by: Genaro Rubi MD on 03/19/2024 19:50:57 Narrative 03/19/2024 7:50 PM EST Exam: Contrast-enhanced chest CT pulmonary angiogram with multiplanar reformats. Comparison: None. Findings: There is no pulmonary embolism or thoracic aortic dissection. Borderline prominent right hilar lymph nodes approaching 1 cm short axis AP dimension (2; 206) are nonspecific. No other mediastinal or hilar masses or adenopathy. A left lobe thyroid nodule or retrosternal goiter measuring up to 2.6 cm (2; 353) is noted. No pleural or pericardial effusions. Images below the diaphragms reveal no acute abnormalities. Lungs are free of focal consolidation. No pneumothorax. Airways are grossly patent. Osseous structures reveal no destructive osseous lesions. Procedure Note White, Genaro S, MD - 03/19/2024 Exam: Contrast-enhanced chest CT pulmonary angiogram with multiplanar reformats. Comparison: None. Findings: There is no pulmonary embolism or thoracic aortic dissection. Borderline prominent right hilar lymph nodes approaching 1 cm short axis AP dimension (2; 206) are nonspecific. No other mediastinal or hilar masses or adenopathy. A left lobe thyroid nodule or retrosternal goiter measuring up to 2.6 cm (2; 353) is noted. No pleural or pericardial effusions. Images below the diaphragms reveal no acute abnormalities. Lungs are free of focal consolidation. No pneumothorax. Airways are grossly patent. Osseous structures reveal no destructive osseous lesions. IMPRESSION: Impression: 1. No pulmonary embolism, aortic dissection or focal pulmonary consolidation. 2. 2.6 cm left lobe lower pole thyroid nodule or retrosternal goiter. This document has been electronically signed by: Genaro Rubi MD on 03/19/2024 19:50:57 Seth Jason MD IMG CT PROCEDURES Final Result * (ABNORMAL) D-Dimer (Quantitative) (03/19/2024 5:25 PM EST) D-Dimer, Quant (D-DU) 645(H) <=230 ng/mL DDU LAB COAGULATION METHOD 03/19/2024 6:08 PM EST [facility] Blood Venous blood specimen / Unknown Venipuncture / Unknown 03/19/2024 5:25 PM EST 03/19/2024 5:55 PM EST Narrative [facility] - 03/19/2024 6:08 PM EST D-Dimer <230 ng/mL (D-Dimer units) is the threshold for exclusion of DVT/PE. D-Dimer may be elevated in: Critically ill, severely infected, trauma patients, DIC, acute CVA, acute LA, unstable angina, AF, old age, , and smoking. D-Dimer may be decreased with: Initiation of heparin therapy and oral anticoagulants. Ran Adams MD LAB BLOOD ORDERABLES Final R esult Performing Organization Address [facility]/ZIP Co de Phone Number [facility] [address] [place] [address], * B-type natriuretic peptide (03/19/2024 2:53 PM EST) Only the most recent of2 resultswithin the time period is included. BNP 37 <=100 pcg/mL LAB CHEMISTRY METHOD 03/19/2024 3:47 PM EST [facility] Blood Venous blood specimen / Unknown Venipuncture / Unknown 03/19/2024 2:53 PM EST 03/19/2024 3:10 PM EST Marcial Jones MD LAB BLOOD ORDERABLES Gladis l Result Performing Organization Address [facility] Co de Phone Number [facility] [address] [place] [address], * Magnesium (03/19/2024 2:53 PM EST) Only the most recent of2 resultswithin the time period is included. Magnesium 2.0 1.9 - 2.6 mg/dL LAB CHEMISTRY METHOD 03/19/2024 3:40 PM EST [facility] Blood Venous blood specimen / Unknown Venipuncture / Unknown 03/19/2024 2:53 PM EST 03/19/2024 3:10 PM EST Marcial Jones MD LAB BLOOD ORDERABLES Gladis l Result Performing Organization Address [facility]/ZIP Co de Phone Number [facility] [address] [place] [address], * APTT (02/06/2024 1:34 PM EST) aPTT 28.5 24.1 - 39.3 sec LAB COAGULATION METHOD 02/06/2024 2:24 PM EST [facility] Blood Venous blood specimen / Unknown Venipuncture / Unknown 02/06/2024 1:34 PM EST 02/06/2024 1:45 PM EST Rhea NELSON LAB BLOOD ORDERABLES Final Re sult Performing Organization Address [facility]/ZIP Co de Phone Number [facility] [address] [place] [address], [place] [phone] * Protime-INR (02/06/2024 1:34 PM EST) Protime 12.0 10.6 - 13.9 sec LAB COAGULATION METHOD 02/06/2024 2:24 PM EST [facility] INR 1.0 LAB COAGULATION METHOD 02/06/2024 2:24 PM EST [facility] Blood Venous blood specimen / Unknown Venipuncture / Unknown 02/06/2024 1:34 PM EST 02/06/2024 1:45 PM EST [facility] BLOOD ORDERABLES Final Re sult Performing Organization Address [facility]/ZIP Co de Phone Number [facility] [address] [place] [address], [place] [phone] * ECG-Outside (02/06/2024) Provider Onbase MD ECG ORDERABLES Final Result * DIANE SCREENING DIGITAL (02/27/2018 5:16 PM EST) Anatomical Region Laterality Modality Mammography 02/24/2018 10:4 4 AM EST Narrative 02/27/2018 5:16 PM EST [facility] Diagnostic Imaging Department [address] [place] [address] Patient: ??SCARLETT NEUMANN ?/Age/Sex: 1970 - 47 - F Unit#: ??[id number] ? Location/Status: ??SPDIMAM/REG CLI ? Mnemonic/Ordering Site: ??DIGSC/SPMAM Ordering Physician: ??EDUARDA VILLEDA MD Diane Screening Digital - 02/27/18 - 0758 INDICATION: SCREENING COMPARISON: [facility] mammograms dating back to ?? 08/05/2012 FINDINGS: CC and MLO views of the breasts were obtained, using full field digital mammography with 3D tomosynthesis views in the MLO projection. Computer aided detection with the RedPath Integrated Pathology 7.2-H was employed. History of reduction mammoplasty in 2016 is reported. The breasts contain scattered fibroglandular tissues. Symmetric parenchymal distortion bilaterally in keeping with reduction mammoplasty history. A circumscribed nodule within the upper outer quadrant of the right breast is not significantly changed compared to prior exams and compatible with benign intramammary lymph node. No suspicious masses, suspicious microcalcifications, or areas of architectural distortion are identified. ??There are no secondary signs of breast malignancy. Compared to the prior exam, no adverse interval change. IMPRESSION: ??No specific mammographic evidence of breast malignancy. Lack of a mammographic finding in the presence of a clinically suspicious palpable abnormality does not preclude the possibility of malignancy or alter the indications for biopsy. BI-RADS ??- Category 2 - Benign finding 3342F, 7025F Annual screening mammography is recommended. Patient entered into a reminder system with a target date for the next mammogram. (G0202 / [id number]) , ??[id number] Dictating Physician: ??YONG WEATHERS MD Electronically Signed by: ??YONG WEATHERS MD Dic Date/Time: ??02/27/181711 Sign date/Time: ??02/27/181715 Procedure Note Yong Weathers MD - 02/18/2022 [facility] Diagnostic Imaging Department [address] [place] [id number] Patient: SCARLETT NEUMANN /Age/Sex: 1970 - 47 - F Unit#: [id number] Location/Status: [facility] CLI Mnemonic/Ordering Site: [facility] Ordering Physician: EDUARDA VILLEDA MD Diane Screening Digital - 02/27/18 - 0758 INDICATION: SCREENING COMPARISON: [facility] mammograms dating back to 08/05/2012 FINDINGS: CC and MLO views of the breasts were obtained, using full field digital mammography with 3D tomosynthesis views in the MLO projection. Computeraided detection with the RedPath Integrated Pathology 7.2-H was employed. History of reduction mammoplasty in 2015 is reported. The breasts contain scattered fibroglandular tissues. Symmetricparenchymal distortion bilaterally in keeping with reduction mammoplasty history. A circumscribed nodule within the upper outer quadrant of the right breastis not significantly changed compared to prior exams and compatible with benign intramammary lymph node. No suspicious masses, suspicious microcalcifications, or areas ofarchitectural distortion are identified. There are no secondary signs of breastmalignancy. Compared to the prior exam, no adverse interval change. IMPRESSION: No specific mammographic evidence of breast malignancy. Lack of a mammographic finding in the presence of a clinicallysuspicious palpable abnormality does not preclude the possibility of malignancy oralter the indications for biopsy. BI-RADS - Category 2 - Benign finding 3342F, 7025F Annual screening mammography is recommended. Patient entered into a reminder system with a target date for the next mammogram. [id number] / [id number]) , [id number] Dictating Physician: YONG WEATHERS MD Electronically Signed by: YONG WEATHERS MD Dic Date/Time: 02/27/18 171 Sign date/Time: 02/27/181715 Eduarda Villeda MD IMG BI PROCEDURES Final R esult from Last 3 Months or Most Recently Relevant to Health Maintenance Additional Health Concerns Infection Onset Date Last Indicated Influenza 04/13/2024 04/13/2024 Insurance MEDICAID - [place] Care Teams Traffic Law Attorney Relationship Specialty Start Date End Date Cristian Chacon [address] [place], [place] PCP - General Internal Medicine 10/17/20
--- OUTSIDE RECORDS SUMMARY | 2024-05-02 14:19 | XMS_ITS | Encounter Summary ---
Author Organization [employer] Address [address] [place] [address] Care Team Providers Care Motor Racer Name Role Phone Cristian Chacon MD Primary Care Prov ider Encounter Details Date Type Department Care Team ([facility] st Contact Info) Description 04/13/2024 10:45 AM EST Office Visit [facility] [address] [place], [place] [id number] Cristian Chacon MD [address] [place] [address] Other chest pain (Primary Dx) Social History Tobacco Use Types [...] as of this encounter Progress Notes * Cristian Martinez MD - 04/13/2024 10:45 AM EST Subjective Patient ID: Scarlett Liriano is a 53 y.o. female who presents for No chief complaint on file.. HPI Walk in patient with complains of chest pain and shortness of breath. Review of Systems Constitutional: Positive for chills, diaphoresis and fatigue. Respiratory: Positive for cough and shortness of breath. Negative for wheezing and stridor. Cardiovascular: Positive for chest pain and palpitations. Objective Physical Exam Constitutional: Appearance: Normal appearance. Cardiovascular: Rate and Rhythm: Regular rhythm. Tachycardia present. Heart sounds: No murmur heard. Pulmonary: Breath sounds: Wheezing present. Neurological: General: No focal deficit present. Mental Status: She is alert and oriented to person, place, and time. Psychiatric: Mood and Affect: Mood normal. Behavior: Behavior normal. Assessment/Plan Problem List Items Addressed This Visit Chest pain - Primary Patient came Walk-in with complain of chest pain and shortness of breath, on examination was clear to auscultation, o2 98% at room air, EKG done was found with SVT, no t wave inversions, sent to ER via ambulance * Peggy Coe RN - 04/13/2024 10:45 AM EST Pt presented to this morning c/o intermittent CP and chest tightness. Pt was walked in to an exam room, pt was clammy, and SOB. PCP checked lung sounds and were clear, O2 Sat 98%, was tachypnic, tachycardic with resting pulse in the 120's. EKG performed showing SVT. Ambulance was called and EMS transported pt to [facility]. No meds administered. Will check tomorrow for status check. * Peggy Coe RN - 04/13/2024 10:45 AM EST Please status check. documented in this encounter Miscellaneous Notes * Addendum Note - Cristian Martinez MD - 04/13/2024 10:45 AM EST Addended by: CRISTIAN URRUTIA on: 04/13/2024 02:18 PM Modules accepted: Orders documented in this encounter Plan of Treatment Upcoming Encounters Date Type Department Care Team (Late st Contact Info) Description 05/17/2024 1:30 PM EDT Office Visit [facility] [address] [place] [address] Cristian Chacon MD [address] [place] [address] documented as of this encounter Procedures Procedure Name Priority Date/Time Associated Diagnosis Comments ECG 12-LEAD Routine 04/13/2024 2:18 PM EST Other chest pain documented in this encounter Results * ECG 12 lead (04/13/2024 2:18 PM EST) Narrative Cristian Chacon MD - 04/13/2024 2:18 PM EST Supraventricular tachycardia [id number] us Cristian Martinez MD ECG ORDERABLES Fi nal Result documented in this encounter Visit Diagnoses Diagnosis Other chest pain- Primary documented in this encounter Additional Health Concerns Assessment Noted Time PHQ-9 Depression Total Score: 16 024 1:19 PM EDT documented as of this encounter Care Teams Motor Racer Relationship Specialty Start Date End Date Cristian Chacon MD [address] [place] [id number] PCP - General Internal Medicine 03/17/19 Ivy Payne Corset FitterChief Operator 11/26/23 documented as of this encounter
--- OUTSIDE RECORDS SUMMARY | 2024-05-02 14:19 | XMS_ITS | Clinical Summary ---
Author Organization [facility] Address [address] [place] [address] Care Team Providers Care Flavor Extractor Name Role Phone Cristian Chacon MD Primary [...] (FOLVITE) 1 mg tablet TOME ОЛЕГ TABLETA S LOS D 2 Active hydrocortisone 2.5% cream Apply topically to the affected area 2 times a day. 2 Active hydrOXYchloroQU INE (PLAQUENIL) 200 mg tablet TOME ОЛЕГ TABLETA DOS LOS D 2 Active LORazepam (ATIVAN) 0.5 [...] Mixed stress and urge urinary incontinence 04/04 Encounters Date Type Department Care Team Description 04/21/2024 Telephone [facility] 4th floor Cardiology Medicine [address] [place] [address] [phone] Phone Operator: Mary Arriaga Telephone Intake, Staff PAC Form/Letter/Record s Request 04/20/2024 9:00 AM EST [facility] [address] [place] [address] [phone] Phone Operator: Alonzo Baez MD FELI positive (Primary Dx); Arthralgia, unspecified joint; Chest pain, unspecified type; Moderate persistent asthma, unspecified whether complicated 04/08/2024 Telephone [facility] [address] [place] [address] [phone] Phone Operator: Zaida Rust Telephone Intake, Staff PAC Sick/Symptoms 03/30/2024 Telephone [facility] [address] [place] [address] [phone] Phone Operator: Alonzo Baez MD PAC Patient Request Call Back; PAC Clinical Questions 03/27/2024 Telephone [facility] Rheumatology [address] [place] [address] [phone] Phone Operator: Alonzo Caputo MD 03/25/2024 Telephone [facility] Rheumatology [address] [place] [address] 72168 Phone Operator: Alonzo Caputo MD 03/24/2024 Documentation [facility] Rheumatology [address] [place] [address] 04289 Phone Operator: Alonzo Caputo MD 03/24/2024 Telephone [facility] Rheumatology [address] [place] [address] [phone] Phone Operator: Alonzo Caputo MD 03/23/2024 4:00 PM EST - 03/23/2024 11:59 PM EST Hospital Encounter [facility] XRay [address] [place] [address] Alonzo Persaud MD Chronic pain of both shoulders; Bilateral hip pain; Neck pain Discharge Disposition: Home or Self Care () 03/23/2024 3:20 PM EST Office Visit [facility] [address] [place] [address] [phone] Phone Operator: Alonzo Baez MD Chronic pain of both shoulders (Primary Dx); Bilateral hip pain; Neck pain 03/22/2024 Telephone [facility] [address] [place] [address] 53821 Phone Operator: Zaida Rust Telephone Intake, Staff PAC Provider Requested Call Back Dr Persaud 03/22/2024 Telephone [facility]inology [facility] [address] [place] [address] [phone] Phone Operator: Alysha Roman Telephone Intake, Staff 03/17/2024 Refill [facility] Rheumatology [facility] [address] [place] [address] Phone Operator: Alonzo Baez MD 03/05/2024 Refill [facility] [address] [place] [address] Phone Operator: Alonzo Baez MD 02/18/2024 Telephone [facility] Rheumatology [address] [place] [address] Phone Operator: Alonzo Caputo MD 02/16/2024 12:00 PM EST - 02/16/2024 11:59 PM EST Hospital Encounter [facility] CT Scan Department [address] [place] [phone] Rib pain Discharge Disposition: Home or Self Care () from Last 3 Months Family History Medical History Relation Name Comments No Known Problems Daughter No Known Problems Father No Known Problems Mother Psoriasis Mother's Sister No Known Problems Son Relation Name Status Comments Daughter Father Mother Mother's Sister Son Social History Tobacco Use Types Packs/Day Years [...] Description 06/01/2024 9:00 AM EDT Office Visit [facility] 4th floor Cardiology Medicine [address] [place] [address] [phone] Phone Operator: Hemal Fritz MD [address] [place] [phone] 08/02/2024 1:30 PM EDT Follow[facility] Rheum Dermatology Clinic [address] [place] [address] [phone] Phone Operator: Morales Ramsey MD [address] [place] [address] 08/16/2024 2:00 PM EDT Office Visit [facility] [address] [place] [address] [phone] Phone Operator: Juan Ramon Vallejo, Dennis Whitlock MD [address] [place] [phone] Scheduled Procedures Name Priority Associated Diagnoses Date/Ti me ARTHROSCOPY, SHOULDER, WITH ROTATOR CUFF REPAIR Chronic left shoulder pain ARTHROSCOPY, SHOULDER, DEBRI RONAL, EXTENSIVE Chronic left shoulder pain ARTHROSCOPY, SHOULDER, BICEP S TENODESIS Chronic left shoulder pain Health Maintenance Due Date Last Done Comments Cervical Cancer Screening 1968 Cologuard 1968 Colonoscopy 1968 HPV and Pap Smear 1968 Pap Smear 1968 Sigmoidoscopy 1968 Hepatitis B Vaccines (1 of 3 - 19+ 3-dose series) 07/20/1987 Pneumococcal Vaccine: 50+ Ye ars (3 of 3 - PCV20 or PCV21) 2018 10/14/2010, 10/14/2010 Zoster Vaccines (2 of 2) 06/08/2019 04/13/2019 DTaP,Tdap,and Td Vaccines (2 - Td or Tdap) 10/14/2020 10/14/2010 COVID-19 Vaccine (5 - 2023-2 5 season) 2023 01/04/2022, 03/22/2021, 07/22/2020, Additional history exists Influenza Vaccine (#1) 2023 , 01/04/2022, 02/12/2021, Additional history exists Alcohol/Substance Use Screening 03/02/2024 Depression Screening and Follow-Up 03/02/2024 [employer] [place]iselle ual Screening 03/02/2024 Mammogram 05/20/2024 05/20/2022, 05/01, 05/20/2022, Additional history exists Colon Cancer Screening 11/17/2024 FOBT / Fit Test 11/17/2024 11/18/2023 Basic Metabolic Panel 04/20/2025 04/20/2024 , 04/14/2024, 03/23/2024, Additional history exists RSV Vaccine (60+ years old a nd patients) (1 - 1-dose 75+ series) 07/20/2043 HIV Screening Completed 09/29/2013 Hepatitis C Screening Completed 06/04/2022 Procedures * Due to [place] state [...] AM EST FELI positive Arthralgia, unspecified joint [id number] STAT 04/20/19 25 9:23 AM EST FELI positive Arthralgia, unspecified [...] of2 resultswithin the time period is included. Extra Tube Hold for add-ons. 04/20/2024 2:05 PM EST [facility] Comment:Auto resulted. Urine Urine specimen collection, clean catch / Unknown Non-Blood Collection / Unknown 04/20/2024 9:23 AM EST 04/20/2024 9:39 AM EST Alonzo Persaud MD LAB URINE ORDERABLES Final Result Performing Organization Address City/[facility]/ZIP Co de Phone Number [facility] [address] [place] [address], [place] * (ABNORMAL) DNA AB(DS) Crithidia Titer (04/20/2024 9:23 AM EST) Only the most recent of2 resultswithin the time period is included. DNA Ab Crithidia Titer 1:40(H) <1:10 titer 04/23/2024 12:47 PM EST [facility] Blood Structure of peripheral vein / Unknown Venipuncture / Unknown 04/20/2024 9:23 AM EST 04/20/2024 9:38 AM EST Narrative [facility] - 04/23/2024 12:47 PM EST [facility] Received Date: Alonzo Persaud MD LAB BLOOD ORDERABLES Final Result [address]rd Floor, [place] [address], [place] [phone] [facility] ([facility]) [address] [place], [place] , [place] * (ABNORMAL) Urinalysis W/Reflex to Microscopic & Culture (04/20/2024 9:23 AM EST) Only the most recent of2 resultswithin the time period is included. Color, Urine Yellow Colorless, Light Yellow, Yellow, Dark Yellow 04/20/2024 9:59 AM EST [facility] Clarity, Urine Clear Clear 04/20/2024 9:59 AM EST [facility] Specific [place], Urine 1.024 1.005 - 1.030 04/20/2024 9:59 AM [facility] pH, Urine 5.0 4.6 - 8.0 04/20/2024 9:59 AM [facility] Protein, Urine 1+(A) Negative 04/20/2024 9:59 AM [facility] Glucose, Urine Negative Negative 04/20/2024 9:59 AM [facility] Ketones, Urine Negative Negative 04/20/2024 9:59 AM [facility] Bilirubin, Urine Negative Negative 04/20/2024 9:59 AM [facility] Blood, Urine Negative Negative 04/20/2024 9:59 AM [facility] Nitrite, Urine Negative Negative 04/20/2024 9:59 AM [facility] Urobilinogen, Urine Normal Normal 04/20/2024 9:59 AM [facility] Leukocyte Esterase, Urine Negative Negative 04/20/2024 9:59 AM [facility] WBC, Urine 1 0 - 2 /HPF 04/20/2024 9:59 AM [facility] RBC, Urine <1 0 - 2 /HPF 04/20/2024 9:59 AM [facility] Hyaline Casts, Urine 0 0 - 2 /LPF 04/20/2024 9:59 AM [facility] Squamous Epithelial Cells, Urine 2 /HPF 04/20/2024 9:59 AM [facility] Bacteria, Urine None None /HPF /HPF 04/20/2024 9:59 AM [facility] Mucus, Urine Rare /LPF 04/20/2024 9:59 AM [facility] Urine Urine specimen collection, clean catch / Unknown Non-Blood Collection / Unknown 04/20/2024 9:23 AM EST 04/20/2024 9:39 AM EST Alonzo Persaud MD LAB URINE ORDERABLES Final Result [facility] [address] [place] [address], [place] * (ABNORMAL) DNA Antibody (ds) Crithidia IFA w/Reflex (04/20/2024 9:23 AM EST) Only the most recent of2 resultswithin the time period is included. DNA Ab(ds) Crithidia, IFA Positive(A ) Negative 04/23/2024 12:26 PM EST [facility]) Blood Structure of peripheral vein / Unknown Venipuncture / Unknown 04/20/2024 9:23 AM EST 04/20/2024 9:38 AM EST Narrative [facility] - 04/23/2024 12:26 PM EST [facility] Received Date:[id number] Alonzo Persaud MD LAB BLOOD ORDERABLES Final Result [facility] ROSARIO [address] [place] [address] [address]rd Floor, [place] [address], [facility] ([place]) [address] [place], [place] , [place] * Procalcitonin (04/20/2024 9:23 AM EST) Procalcitonin <0.20 <0.20 ng/mL 04/22/2024 2:53 PM EST [id number] Comment: Verified by repeat analysis. Procalcitonin levels above 2.00 ng/mL on the first day of ICU admission represent a high risk for progression to severe sepsis and/or septic shock. Procalcitonin Comment See Comments 04/22/2024 2:53 PM EST [id number] Comment: Interpretation Guidelines Diagnosis of systemic [...] 9:23 AM EST 04/20/2024 9:38 AM EST [facility] - 04/22/2024 2:53 PM EST [facility] Received Date: us Alonzo Persaud MD LAB BLOOD ORDERABLES Final Result [facility] [address], [place] [address], [place] [phone] [place] [address], [place] [phone] * (ABNORMAL) CBC Auto Differential (04/20/2024 9:23 AM EST) Only the most recent of2 resultswithin the time period is included. WBC 12.4(H) 3.8 - 10.8 10*3/uL 04/20/2024 9:47 AM [facility] RBC 4.34 3.80 - 5.10 10*6/uL 04/20/2024 9:47 AM [facility] Hemoglobin 12.3 11.7 - 15.5 g/dL 04/20/2024 9:47 AM [facility] Hematocrit 39.1 35.0 - 45.0 % 04/20/2024 9:47 AM [facility] MCV 90.1 80.0 - 100.0 fL 04/20/2024 9:47 AM [facility] MCH 28.3 27.0 - 33.0 pg 04/20/2024 9:47 AM [facility] MCHC 31.5(L) 32.0 - 36.0 g/dL 04/20/2024 9:47 AM [facility] RDW 13.4 11.0 - 15.0 % 04/20/2024 9:47 AM [facility] Platelets 351 140 - 400 10*3/uL 04/20/2024 9:47 AM [facility] MPV 9.4 7.5 - 12.5 fL 04/20/2024 9:47 AM [facility] Neutrophil % 88.3 % 04/20/2024 9:47 AM [facility] Immature Grans % 1.1(H) 0.0 - 0.9 % 04/20/2024 9:47 AM [facility] Lymphocyte % 6.1 % 04/20/2024 9:47 AM [facility] Monocyte % 4.1 % 04/20/2024 9:47 AM [facility] Eosinophil % 0.2 % 04/20/2024 9:47 AM [facility] Basophil % 0.2 % 04/20/2024 9:47 AM [facility] Neutrophil # 10.92(H) 1.50 - 7.80 10*3/uL 04/20/2024 9:47 AM [facility] Immature Grans # 0.14(H) <=0.03 10*3/uL 04/20/2024 9:47 AM [facility] Lymphocyte # 0.80(L) 0.85 - 3.90 10*3/uL 04/20/2024 9:47 AM [facility] Monocyte # 0.50 0.20 - 0.95 10*3/uL 04/20/2024 9:47 AM EST [facility] Eosinophil # <0.03 0.02 - 0.50 10*3/uL 04/20/2024 9:47 AM EST [facility] Basophil # <0.03 0.00 - 0.20 10*3/uL 04/20/2024 9:47 AM EST [facility] nRBC % 0.0 /100 WBCs 04/20/2024 9:47 AM EST [facility] nRBC # <0.01 <0.01 10*3/uL 04/20/2024 9:47 AM EST [facility] Blood Structure of peripheral vein / Unknown Venipuncture / Unknown 04/20/2024 9:23 AM EST 04/20/2024 9:38 AM EST us Alonzo Persaud MD LAB BLOOD ORDERABLES Final Result [facility] [address] [place] [address], * Microalbumin, Random Urine with Creatinine (04/20/2024 9:23 AM EST) Only the most recent of2 resultswithin the time period is included. Microalbumin, Urine <2.0 mg/dL 04/20/2024 12:17 PM [facility] Creatinine, Urine 186 15 - 278 mg/dL 04/20/2024 12:17 PM [facility] Microalb/Creat Ratio, Random Urine 04/20/2024 12:17 PM EST [facility] Comment: < 1.0 mcg/mgCr Microalbumin Reference Range: Normal ? <30 mcg/mg Creatinine Microalbuminuria ? 30-300 mcg/mg Creatinine Clinical Albuminuria >300 mcg/mg Creatinine Reference: ADA Guideline. Diabetes Care. 2004;27 (suppl 1) Urine Voided urine specimen / Unknown Non-Blood Collection / Unknown 04/20/2024 9:23 AM EST 04/20/2024 9:39 AM EST Alonzo Persaud MD LAB URINE ORDERABLES Final Result Performing Organization Address [facility]/ZIP Co de Phone Number [facility] [address] [place] [address], [facility] [address] [place] [address], * (ABNORMAL) DNA Antibody, Double-Stranded (04/20/2024 9:23 AM EST) Only the most recent of2 resultswithin the time period is included. DNA (Ds) Antibody 7(H) IU/mL 025 9:50 PM EST [facility] Comment: ? IU/mL ? Interpretation ? < or = 4 ?Negative ? 5-9 ? Indeterminate ? > or = 10 ?? Positive Blood Structure of peripheral vein / Unknown Venipuncture / Unknown 04/20/2024 9:23 AM EST 04/20/2024 9:38 AM EST Narrative [facility] - 04/21/2024 9:50 PM EST [facility] Received Date:[id number] Alonzo Persaud MD LAB BLOOD ORDERABLES Final Result Performing Organization Address City/[facility]/ZIP Co de Phone Number [facility] [address] [facility] [address]rd [address], [place] [address], [facility] [address], [place] [address], [place] [phone] * Sedimentation Rate (04/20/2024 9:23 AM EST) Only the most recent of2 resultswithin the time period is included. Pathologist [facility] Sed Rate 23 <30 mm/Hr mm/Hr 04/20/2024 10:04 AM EST [facility] Blood Structure of peripheral vein / Unknown Venipuncture / Unknown 04/20/2024 9:23 AM EST 04/20/2024 9:38 AM EST Alonzo Persaud MD LAB BLOOD ORDERABLES Final Result Performing Organization Address City/[facility]/ZIP Co de Phone Number [facility] [address] [place] [address], * Complement C3 (04/20/2024 9:23 AM EST) Only the most recent of2 resultswithin the time period is included. Pathologist [facility] Complement Component C3C 101 83 - 193 mg/dL 04/21/2024 4:[address] [facility] Blood Structure of peripheral vein / Unknown Venipuncture / Unknown 04/20/2024 9:23 AM EST 04/20/2024 9:38 AM EST Narrative [facility] - 04/21/2024 4:22 AM EST [facility] Received Date:[id number] Alonzo Persaud MD LAB BLOOD ORDERABLES Final Result Performing Organization Address City/[facility]/ZIP Co de Phone Number [facility] [address] [facility] [address], [place] [address], [place] [phone] [facility] [address] [facility] [address]rd Floor, [place] [address], [place] [phone] * Complement C4 (04/20/2024 9:23 AM EST) Only the most recent of2 resultswithin the time period is included. Pathologist [facility] Complement Component C4C 21 15 - 57 mg/dL 04/21/2024 4:22 AM EST [facility] Blood Structure of peripheral vein / Unknown Venipuncture / Unknown 04/20/2024 9:23 AM EST 04/20/2024 9:38 AM EST Narrative [facility] - 04/21/2024 4:22 AM EST [facility] Received Date: Alonzo Persaud MD LAB BLOOD ORDERABLES Final Result Performing Organization Address City/[facility]/ZIP Co de Phone Number [facility] [address] [address], [place] [address], [place] [phone] [facility] [address], [place] [address], [place] [phone] * (ABNORMAL) C-Reactive Protein (04/20/2024 9:23 AM EST) Only the most recent of2 resultswithin the time period is included. Pathologist [facility] C Reactive Protein 10.5(H) <=9.9 mg/L 04/20/2024 10:34 AM EST [facility] Blood Structure of peripheral vein / Unknown Venipuncture / Unknown 04/20/2024 9:23 AM EST 04/20/2024 9:38 AM EST Alonzo Persaud MD LAB BLOOD ORDERABLES Final Result [facility] [address] [place] [address], * (ABNORMAL) Creatine Kinase (04/20/2024 9:23 AM EST) Only the most recent of2 resultswithin the time period is included. CK 35(L) 38 - 206 U/L 04/20/2024 10:34 AM EST [facility] Blood Structure of peripheral vein / Unknown Venipuncture / Unknown 04/20/2024 9:23 AM EST 04/20/2024 9:38 AM EST us Alonzo Persaud MD LAB BLOOD ORDERABLES Final Result [facility] [address] [place] [address], [place] * (ABNORMAL) Comprehensive Metabolic Panel (04/20/2024 9:23 AM EST) Only the most recent of2 resultswithin the time period is included. NA 139 135 - 145 mmol/L 04/20/2024 10:34 AM EST [facility] K 3.8 3.5 - 5.3 mmol/L 04/20/2024 10:34 AM [facility] Cl 105 98 - 107 mmol/L 04/20/2024 10:34 AM [facility] CO2 24 22 - 32 mmol/L 04/20/2024 10:34 AM [facility] Anion Gap 10 5 - 15 04/20/2024 10:34 AM EST [facility] Glucose 177(H) 65 - 99 mg/dL 04/20/2024 10:34 AM EST [facility] Creatinine 0.73 0.50 - 1.20 mg/dL 04/20/2024 10:34 AM EST [facility] Calcium 8.4(L) 8.6 - 10.5 mg/dL 04/20/2024 10:34 AM EST [facility] Total Protein 6.9 6.0 - 8.0 g/dL 04/20/2024 10:34 AM EST [facility] Albumin 3.4(L) 3.5 - 5.2 g/dL 04/20/2024 10:34 AM [facility] Bilirubin, Total 0.3 0.2 - 1.2 mg/dL 04/20/2024 10:34 AM [facility] Alkaline Phosphatase 50 35 - 129 U/L 04/20/2024 10:34 AM EST [facility] AST 14 10 - 40 U/L 04/20/2024 10:34 AM EST [facility] ALT 11 10 - 40 U/L 04/20/2024 10:34 AM EST [facility] BUN 24(H) 7 - 23 mg/dL 04/20/2024 10:34 AM EST [facility] eGFR >90 >=60 mL/min/1. 73m2 04/20/2024 10:34 AM EST [facility] Comment:The estimated glomer ular filtration rate (eGFR) is calculated using a new formula developed by the NKF-ASN task force to eliminate race-based correction factors. The new formula uses serum/plasma creatinine, age, and gender to determine eGFR. A value below 60mls/min might indicate kidney disease and will be flagged. For additional information, see Yina et al, Am J Kidney Dis. 2021;79(2):268- 288, A Unifying Approach for GFR estimation: Recommendations of the NKF-ASN Task Force on Reassessing the Inclusion of Race in Diagnosing Kidney Disease . Globulin, Total 3.5 2.1 - 4.2 g/dL 04/20/2024 10:34 AM EST [facility] A/G Ratio 1.0(L) 1.5 - 3.0 04/20/2024 10:34 AM EST [facility] Blood Structure of peripheral vein / Unknown Venipuncture / Unknown 04/20/2024 9:23 AM EST 04/20/2024 9:38 AM EST us Alonzo Persaud MD LAB BLOOD ORDERABLES Final Result [facility] [address] [place] [address], * Interpretation (03/23/2024 4:48 PM EST) FELI Specific Antibody Interpretation See Comments 03/25/2024 12:23 PM EST [facility] Comment: The presence of these two antibodies [...] PM EST 03/23/2024 5:31 PM EST Narrative [facility] - 03/25/2024 12:23 PM EST [facility] Received Date: Alonzo Persaud MD LAB BLOOD ORDERABLES Final Result [facility] [address] [facility] [address], [place] [address], [facility] [address] [facility] [address], [place] [address], * (ABNORMAL) Stage 1 (03/23/2024 4:48 PM EST) [facility] DNA (Ds) Antibody 11(H) IU/mL 025 12:23 PM EST [facility] Comment: ? IU/mL ? Interpretation ? < or = 4 ?Negative ? 5-9 ? Indeterminate ? > or = 10 ?? Positive Sm Antibody <1.0 NEG <1.0 NEG AI 03/25/2024 12:23 PM EST [facility] SM/STAVE MILL HAND Antibody <1.0 NEG <1.0 NEG AI 03/25/2024 12:23 PM EST [facility] STAVE MILL HAND Antibody <1.0 NEG <1.0 NEG 03/25/2024 12:23 PM EST [facility] Chromatin Antibody 3.0 POS(A) <1.0 NEG 03/25/2024 12:23 PM EST [facility] Comment: ANTIBODY PREVALENCE IN TIER 1 ? [...] Sjogren's syndrome and 8% polymyositis. ?? Ribonucleoprotein (STAVE MILL HAND) antibodies are to [place] HAND A and/or [place] HAND 68kD proteins; antibodies to one or both are present in >80% MCTD, 22% to 48% SLE, 14% systemic sclerosis, 12% Sjogren's and 8% polymyositis. ?? Sm/ST[place] M[place] HAND antibodies are directed to epitopes formed in a complex of Sm and STAVE MILL HAND; antibodies to the Sm/ST[place] HAND complex are present in 54% to 94% MCTD, 30% SLE, 4% systemic sclerosis, and 9% Sjogren's and polymyositis. ?? Sm antibody is present in 20% to 30% SLE, 8% MCTD, 10% polymyositis, 0% systemic sclerosis and 4% Sjogren's syndrome. ?? Double stranded DNA, Chromatin, Ribonucleoprotein, Sm/[place] HAND complex and Sm antibodies are present in <2% of normal blood donors. ?? The [place] does not rule out autoimmune disease characterized by other autoantibody specificities such as rheumatoid arthritis, autoimmune hepatitis, primary biliary cirrhosis, autoimmune thyroiditis, [place]'s disease, pernicious anemia, autoimmune neuropathies, vasculitis, celiac disease and bullous disease. Please contact your local [facility] laboratory if you are interested in additional testing. Blood Structure of peripheral vein / Unknown Venipuncture / Unknown 03/23/2024 4:48 PM EST 03/23/2024 5:31 PM EST Narrative [facility] MARLENE - 03/25/2024 12:23 PM EST [facility] Received Date: Alonzo Persaud MD LAB BLOOD ORDERABLES Final Result Performing Organization Address City/[facility]/ZIP Co de Phone Number PHILLIP DAYTON [address], [place] [address], [place] [phone] [facility] [address], [place] [address], [place] [phone] * (ABNORMAL) FELI, Titer and Pattern (03/23/2024 4:48 PM EST) FELI Titer 1 1:1280(H) titer 03/30/2024 4:22 PM EST [facility] Comment: ?Reference Range ?<1:40 ?Negative ?1:40-1:80 ?Low Antibody Level ?>1:80 ?Elevated Antibody Level FELI Pattern 1 Nuclear, Homogeneo (A) 03/30/2024 4:22 PM EST [facility] Comment: Homogeneous pattern is associated with systemic lupus erythematosus (SLE), drug-induced lupus and juvenile idiopathic arthritis. AC-1: Homogeneous International Consensus on FELI Patterns (https://doi.org/10.1515/ybbo-4063-7562) Blood Structure of peripheral vein / Unknown Venipuncture / Unknown 03/23/2024 4:48 PM EST 03/23/2024 5:31 PM EST Narrative [facility] - 03/30/2024 4:22 PM EST [facility] Received Date:[id number] us Alonzo Persaud MD LAB BLOOD ORDERABLES Final Result Performing Organization Address City/[facility]/ZIP Co de Phone Number PHILLIP DAYTON [address], [place] [address], [place] [phone] [facility] [address], [place] [address], [place] [phone] * (ABNORMAL) Attu Station & Lambda, Free w/Ratio (03/23/2024 4:48 PM EST) [place] Light Chain, Free, Serum 99.6(H) 3.3 - 19.4 mg/L 03/24/2024 3:56 PM EST [facility] Lambda Light Chain, Free, Serum 60.2(H) 5.7 - 26.3 mg/L 03/24/2024 3:56 PM EST [facility] Attu Station/Lambda Light Chains Free With Ratio 1.65 0.26 - 1.65 03/24/2024 3:56 PM EST [facility] Comment: Free kappa/lambda ratio in serum of [...] PM EST 03/23/2024 5:31 PM EST Narrative [facility] MARLENE - 03/24/2024 3:56 PM EST [facility] Received Date: us Alonzo Persaud MD LAB BLOOD ORDERABLES Final Result PHILLIP ROSARIO 200 [facility] 3rd Floor, [place] [address], [place] [phone] [facility] 200 [facility] 3rd Floor, [place] [address], [place] [phone] * (ABNORMAL) Protein Electrophoresis w/Reflex to Immunofixation, Serum (03/23/2024 4:48 PM EST) Pathologist [facility] Protein, Total 6.5 6.1 - 8.1 g/dL 03/25/2024 7:04 AM EST [facility] Albumin 3.0(L) 3.8 - 4.8 g/dL 03/25/2024 7:04 AM [facility] Alpha 1 Globulin 0.5(H) 0.2 - 0.3 g/dL 03/25/2024 7:04 AM [facility] Alpha 2 Globulin 0.9 0.5 - 0.9 g/dL 03/25/2024 7:04 AM [facility] Beta 1 Globulin 0.4 0.4 - 0.6 g/dL 03/25/2024 7:04 AM [facility] Beta 2 Globulin 0.4 0.2 - 0.5 g/dL 03/25/2024 7:04 AM [facility] Gamma Globulin 1.2 0.8 - 1.7 g/dL 03/25/2024 7:04 AM [facility] Interpretation See Comments 03/25/2024 7:04 AM [facility] Comment: Pattern consistent with an acute phase reaction Blood Structure of peripheral vein / Unknown Venipuncture / Unknown 03/23/2024 4:48 PM EST 03/23/2024 5:31 PM EST [facility] MARLENE - 03/25/2024 7:04 AM EST [employer] Received Date: Alonzo Persaud MD LAB BLOOD ORDERABLES Final Result [facility] 200 [facility] 3rd Floor, [place] [address], [place] [phone] [facility] 200 [facility] 3rd Floor, [place] [address], [place] [phone] * Cyclic Citrullinated Peptide (CCP) Antibody, IgG (03/23/2024 4:48 PM EST) [facility] Cyclic Citrullinated Peptide (CCP) Ab (IgG) <16 UNITS 03/25/2024 2:15 PM EST [facility] Comment: Reference Range Negative: ?<20 Weak Positive: ? 20-39 Moderate Positive: ?? 40-59 Strong Positive: ? >59 Blood Structure of peripheral vein / Unknown Venipuncture / Unknown 03/23/2024 4:48 PM EST 03/23/2024 5:31 PM EST Narrative PHILLIP ROSARIO - 03/25/2024 2:15 PM EST [facility] Received Date: Alonzo Persaud MD LAB BLOOD ORDERABLES Final Result PHILLIP DAYTON 200 [facility] 3rd Floor, [place] [address], [facility] [address], [place] [address], * Lyme Antibody Screen w/Reflex to Blot (03/23/2024 4:48 PM EST) Lyme Ab Screen <0.90 index 03/24/2024 11:29 AM EST [facility] Comment: ? Index ?Interpretation ? ----- ? [...] PM EST 03/23/2024 5:31 PM EST Narrative [facility] - 03/24/2024 11:29 AM EST [facility] Received Date: Alonzo Persaud MD LAB BLOOD ORDERABLES Final Result [facility] 200 [facility] 3rd Floor, [place] [address], [facility] 200 [facility] 3rd Floor, [place] [address], * (ABNORMAL) FELI Screen, IFA, w/Reflex to Titer & Pattern (03/23/2024 4:48 PM EST) Pathologist [facility] FELI Screen, IFA POSITIVE (A) NEGATIVE 03/30/2024 4:[address] [facility] Comment: FELI IFA is a first line screen for detecting the presence of up to approximately 150 autoantibodies in various autoimmune diseases. A positive FELI IFA result is suggestive of autoimmune disease and reflexes to titer and pattern. Further laboratory testing may be considered if clinically indicated. For additional information, please refer to http://education.[employer].[facility]/faq/BQH340 (This link is being provided for informational/ educational purposes only.) ?? Blood Structure of peripheral vein / Unknown Venipuncture / Unknown 03/23/2024 4:48 PM EST 03/23/2024 5:31 PM EST Narrative [facility]RV[facility] - 03/30/2024 4:21 PM EST [facility] Received Date: us Alonzo Persaud MD LAB BLOOD ORDERABLES Final Result Performing Organization Address City/[facility]/ZIP Co de Phone Number PHILLIP ROSARIO [address], [place] [address], [place] [phone] [facility] [address], [place] [address], [place] [phone] * Urine Culture, Routine (03/23/2024 4:48 PM EST) [facility] Culture Mixed genital zachary isolated. These superficial bacteria are not indicative of a urinary tract infection. No further organism identification is warranted on this specimen. 03/24/2024 5:[address] [facility] Urine Urine specimen collection, clean catch / Unknown Non-Blood Collection / Unknown 03/23/2024 4:48 PM EST 03/23/2024 6:19 PM EST Narrative [facility] - 03/24/2024 5:21 PM EST [facility] Received Date: MICRO NUMBER: [id number] SPECIMEN QUALITY: Adequate SOURCE: URINE CLEAN CATCH STATUS: FINAL If clinically indicated, recollect clean-catch, mid-stream urine and transfer immediately to Urine Culture Transport Tube. us Alonzo Persaud MD LAB MICROBIOLOGY - GENERAL ORDERABLES Final Result Performing Organization Address City/[facility]/ZIP Co de Phone Number PHILLIP ROSARIO [address], [place] [address], [place] [phone] [facility] [address], [place] [address], [place] [phone] * (ABNORMAL) FELI Specific Antibody w/Reflex to [place] (03/23/2024 4:48 PM EST) [facility] FELI Screen, Immunoassay POSITIVE (A) NEGATIVE 03/25/2024 12:[address] [facility] Comment: A positive FELI Multiplex indicates the presence of detectable antibodies to one or more of the component analytes consisting of double stranded DNA (dsDNA), chromatin, ribonucleoprotein (STAVE MILL HAND), Mojica/STAVE MILL HAND (Sm/STAVE MILL HAND), Mojica (Sm), SS-A, SS-B, Bozena-1, centromere B, Scl-70 and ribosomal P. Further laboratory testing may be considered if clinically indicated. For additional information, please refer to http://education.[employer]/faq/RBI640 (This link is being provided for informational/ educational purposes only.) ?? Blood Structure of peripheral vein / Unknown Venipuncture / Unknown 03/23/2024 4:48 PM EST 03/23/2024 5:31 PM EST Narrative [facility] - 03/25/2024 12:23 PM EST [facility] Received Date: Alonzo Persaud MD LAB BLOOD ORDERABLES Final Result Performing Organization Address City/[facility]/ZIP Co de Phone Number [facility] 200 [facility] [address], [place] [address], [place] [phone] [facility] [address], [place] [address], [place] [phone] * (ABNORMAL) Lactate Dehydrogenase (03/23/2024 4:48 PM EST) LDH 285(H) 135 - 225 U/L 03/23/2024 6:41 PM EST [facility] Blood Structure of peripheral vein / Unknown Venipuncture / Unknown 03/23/2024 4:48 PM EST 03/23/2024 5:31 PM EST Alonzo Persaud MD LAB BLOOD ORDERABLES Final Result [facility] [address] [place] [address], [place] * Gamma Glutamyl Transferase (03/23/2024 4:48 PM EST) GGT 35 5 - 61 U/L 03/23/2024 6:09 PM EST [facility] Blood Structure of peripheral vein / Unknown Venipuncture / Unknown 03/23/2024 4:48 PM EST 03/23/2024 5:31 PM EST us Alonzo Persaud MD LAB BLOOD ORDERABLES Final Result [facility] [address] [place] [address], [place] * (ABNORMAL) IgA (03/23/2024 4:48 PM EST) Immunoglobulin A 319(H) 47 - 310 mg/dL 03/24/2024 8:01 AM EST [facility] Blood Structure of peripheral vein / Unknown Venipuncture / Unknown 03/23/2024 4:48 PM EST 03/23/2024 5:31 PM EST Narrative [facility] - 03/24/2024 8:01 AM EST [facility] Received Date: Alonzo Persaud MD LAB BLOOD ORDERABLES Final Result Performing Organization Address City/[facility]/ZIP Co de Phone Number [facility] 200 [facility] [address]rd [address], [place] [address], [place] [phone] [facility] 200 [facility] [address]rd Floor, [place] [address], [place] [phone] * IgM (03/23/2024 4:48 PM EST) Immunoglobulin M 80 50 - 300 mg/dL 03/24/2024 8:[address] [facility] Blood Structure of peripheral vein / Unknown Venipuncture / Unknown 03/23/2024 4:48 PM EST 03/23/2024 5:31 PM EST Narrative [facility] - 03/24/2024 8:01 AM EST [facility] Received Date: us Alonzo Persaud MD LAB BLOOD ORDERABLES Final Result Performing Organization Address City/[facility]/ZIP Co de Phone Number [facility] 200 [facility] [address]rd Floor, [place] [address], [place] [phone] [facility] 200 [facility] [address]rd [address], [place] [address], [place] [phone] * IgG (03/23/2024 4:48 PM EST) IgG, Serum 1448 600 - 1640 mg/dL 03/24/2024 8:01 AM EST [facility] Blood Structure of peripheral vein / Unknown Venipuncture / Unknown 03/23/2024 4:48 PM EST 03/23/2024 5:31 PM EST Narrative [facility] - 03/24/2024 8:01 AM EST [facility] Received Date: Alonzo Persaud MD LAB BLOOD ORDERABLES Final Result [facility] 200 [facility] [address]rd [address], [place] [address], [place] [phone] [facility] 200 [facility] [address]rd [address], [place] [address], [place] [phone] * Ferritin (03/23/2024 4:48 PM EST) Ferritin 279.0 11.0 - 306.0 ng/mL 03/23/2024 6:09 PM EST [facility] Blood Structure of peripheral vein / Unknown Venipuncture / Unknown 03/23/2024 4:48 PM EST 03/23/2024 5:31 PM EST us Alonzo Persaud MD LAB BLOOD ORDERABLES Final Result [facility] [address] [place] [address], [place] * XR Hips Bilateral 5+ vw [...] obtain the completed interpretation. ? Workstation ID: [id number] Narrative 03/23/2024 6:11 PM EST COMPARISON: None. ?? Resulting Agency Comment [id number] Procedure Note Augusto Buck MD - 03/23/2024 [...] possible to obtain thecompleted interpretation. Workstation ID: [id number] us Alonzo Persaud MD IMG XR PROCEDURES [...] obtain the completed interpretation. ? Workstation ID: [id number] Narrative 03/23/2024 6:11 PM EST COMPARISON: None. ?? Resulting Agency Comment [id number] Procedure Note Augusto Buck MD - 03/23/2024 [...] possible to obtain thecompleted interpretation. Workstation ID: [id number] us Alonzo Persaud MD IMG XR PROCEDURES [...] obtain the completed interpretation. ? Workstation ID: [id number] Narrative 03/23/2024 6:11 PM EST COMPARISON: None. ?? Resulting Agency Comment [id number] Procedure Note Augusto Buck MD - 03/23/2024 [...] possible to obtain thecompleted interpretation. Workstation ID: [id number] us Alonzo Persaud MD IMG XR PROCEDURES [...] obtain the completed interpretation. ? Workstation ID: [id number] Narrative 03/23/2024 6:11 PM EST COMPARISON: None. ?? Resulting Agency Comment [id number] Procedure Note Augusto Buck MD - 03/23/2024 [...] possible to obtain thecompleted interpretation. Workstation ID: [id number] us Alonzo Persaud MD IMG XR PROCEDURES [...] obtain the completed interpretation. ? Workstation ID: [id number] Up-to-date CT equipment and radiation dose reduction [...] in the spine. ?? Resulting Agency Comment [id number] Procedure Note Wendi Hollingsworth MD - 02/18/2024 [...] possible to obtain thecompleted interpretation. Workstation ID: [id number] Up-to-date CT equipment and radiation dose reduction techniques wereemployed. CTDIvol: 20.1 mGy. DLP: 572 mGy-cm. us Alonzo Persaud MD [facility] PROCEDURES Final Re sult * Hepatitis C Antibody w/Reflex to HCV RNA, Quantitative PCR (06/04/2022 5:43 PM EDT) Hepatitis C Antibody NON-REACT BETO NON-REACT BETO 06/05/2022 3:44 AM EDT [facility] Signal To Cut-Off 0.02 <1.00 06/05/2022 3:44 AM EDT [employer] Comment: HCV antibody was non-reactive. There is no laboratory evidence of HCV infection. In most cases, no further action is required. However, if recent HCV exposure is suspected, a test for HCV RNA (test code 00356) is suggested. For additional information please refer to http://education.[employer]/faq/LWH26g7 (This link is being provided for informational/ educational purposes only.) Blood Structure of peripheral vein / Unknown Venipuncture / Unknown 06/04/2022 5:43 PM EDT 06/04/2022 6:08 PM EDT Narrative PHILLIP ROSARIO - 06/05/2022 3:44 AM EDT [facility] Received Date: us Alonzo Persaud MD LAB BLOOD ORDERABLES Final Result [facility] 200 [facility] [address]rd [address], [place] [address], [place] [phone] [facility] 200 [facility] 3rd Floor, [place] [address], [place] [phone] from Last 3 Months or Most Recently Relevant to Health Maintenance Insurance [facility] Care Teams Flavor Extractor Relationship Specialty Start Date End Date Cristian Chacon MD [address] [place] [address] PCP - General 06/04/22
--- OUTSIDE RECORDS SUMMARY | 2024-05-02 14:19 | XMS_ITS | Encounter Summary ---
Author Organization [employer] Address [address] [facility] [place] [address] Care Team Providers Care Surface Miner Name Role Phone Cristian Chacon MD Primary Care Prov ider Encounter Details Date Type Department Care Team (Latest Contact Info) Description 04/13/2024 Travel Social History Tobacco Use Types Packs/Day [...] 1:30 PM EDT Office Visit [facility] [address] [place] [address] Cristian Chacon MD [address] [place] [address] documented as of this encounter Visit Diagnoses Not on filedocumented in this encounter Additional Health Concerns Assessment Noted Time PHQ-9 Depression Total Score: 16 024 1:19 PM EDT documented as of this encounter Care Teams Surface Miner Relationship Specialty Start Date End Date Cristian Chacon MD [address] [place] [address] PCP - General Internal Medicine 03/17/19 Ivy Payne Correctional Officer LieutenantEastern Philosophy Professor 11/26/23 documented as of this encounter
--- OUTSIDE RECORDS SUMMARY | 2024-05-02 14:20 | XMS_ITS | Encounter Summary ---
Author Organization [employer] Address [address] [facility] 7t [place] [address] Care Team Providers Care Infrastructure Project Manager Name Role Phone Cristian Chacon MD Primary Care Prov ider Reason for Visit * Reason Comments Med Refill Encounter Details Date Type Department Care Team ([facility] Contact Info) Description 02/27/2024 Refill [facility] [address] [place], [place] [phone] Cristian Chacon MD [address] [place] [address] Social History Tobacco Use Types Packs/Day Years [...] encounter Miscellaneous Notes * Telephone Encounter - Saskia Rosas MD - 02/29/2024 11:58 AM EST Prednisone was a short course, if she needs further predisone needs to be seen by a provider documented in this encounter Plan of Treatment Upcoming Encounters Date Type Department Care Team (Late st Contact Info) Description 05/17/2024 1:30 PM EDT Office Visit [facility] [address] [place] [address] Cristian Chacon MD [address] [place] [address] documented as of this encounter Visit Diagnoses Not on filedocumented in this encounter Additional Health Concerns Assessment Noted Time PHQ-9 Depression Total Score: 16 024 1:19 PM EDT documented as of this encounter Care Teams Infrastructure Project Manager Relationship Specialty Start Date End Date Cristian Chacon MD [address] [place] [address] PCP - General Internal Medicine 03/17/19 Ivy Payne Cathode MakerDirector Food Safety 11/26/23 documented as of this encounter
--- OUTSIDE RECORDS SUMMARY | 2024-05-02 14:20 | XMS_ITS | Encounter Summary ---
Author Organization [employer] Address [address] [facility] [address]t [place] [address] Care Team Providers Care Bull Bucker Name Role Phone Cristian Chacon MD Primary Care Prov ider Reason for Visit * Reason Onset Date Comments Nurse Triage 11/18/2022 Encounter Details Date Type Department Care Team (Late st Contact Info) Description 11/18/2022 Telephone [facility]EDS [address] [place], [place] [phone] Cristian Chacon MD [address] [place] [address] Nurse Triage Social History Tobacco Use Types Packs/Day Years Used Date Smoking Tobacco: Never Passive Smoke Exposure: Never Smokeless Tobacco: Never Comments Unknown Sex and Gender Information Value Date Recorded Sex Assigned at Female 12/30/2021 10:24 AM EDT Legal Sex Female 10:24 AM EDT Gender Identity Female 12/30/2021 10:24 AM EDT Sexual Orientation Straight 12/30/2021 10 :24 AM EDT documented as of this encounter Miscellaneous Notes * Telephone Encounter - Froilan Carey - 11/18/2022 2:58 PM EDT Symptom: Leg Injury Outcome: Talk to a nurse or provider within 15 minutes Reason: Severe pain now The caller accepted this outcome Please contact pt at [phone] Mosotho Speaker documented in this encounter Plan of Treatment Upcoming Encounters Date Type Department Care Team (Late st Contact Info) Description 05/17/2024 1:30 PM EDT Office Visit [facility] [address] [place] [address] Cristian Chacon MD [address] [place] [address] documented as of this encounter Visit Diagnoses Not on filedocumented in this encounter Care Teams Bull Bucker Relationship Specialty Start Date End Date Cristian Chacon MD [address] [place] [address] PCP - General Internal Medicine 03/17/19 Ivy Payne Hat TrimmerRougher Operator 03/03/23 11/25/23 Ivy Payne Skin Care TechnicianRougher Operator 11/26/23 documented as of this encounter
--- OUTSIDE RECORDS SUMMARY | 2024-05-02 14:20 | XMS_ITS | Encounter Summary ---
Author Organization [employer] Address [address] [facility] 7t [place] [address] Care Team Providers Care Professional Nursing Tutor Name Role Phone Cristian Chacon MD Primary Care Prov ider Reason for Visit * Reason Onset Date Comments ER Follow-up 03/23/2024 Nurse Triage 03/23/2024 Encounter Details Date Type Department Care Team ([facility] st Contact Info) Description 03/23/2024 Telephone [facility] [address] [place] [address] Cristian Chacon MD [address] [place] [address] ER Follow-up; Nurse Triage Social History Tobacco Use Types [...] Telephone Encounter - Zee Lance RN - 03/23/2024 11:51 AM EST [place]riage [place] [id number] Jose Alberto Pt was seen in [facility] ED 03/19/24 , (report is on the chart) with chest pain and abdominal pain. Report writes that there is no cardiac concern. Pt reports neck pain and chronic pain all over from the tip of my toes to the top of my head . Pt does have dx of fibromyalgia. Pt has apt with rheumatology today and has been taking prednisone 5mg bid . Pt is offered an apt this Thursday at [facility] with provider but, requests to only see PCP. ASK apt with Dr. Carrillo 05/02/24 @ 330pm. Pt agrees with disposition. Insurance is verified as active prior to booking. Protocol Used: Neck Pain or Stiffness (Adult) Protocol-Based Disposition: See in Office or Video Visit within 2 Weeks Video visit not offered Positive Triage Question: * Neck pain is a chronic symptom (recurrent or ongoing AND lasting > 4 weeks) * All higher-acuity triage questions were negative Care Advice Discussed: * Reasons To Call Back - Moderate pain (such as interferes with normal activities) lasts over 3 days - Pain lasts over 2 weeks - Pain begins to shoot into the arms - Numbness or weakness occurs in your arms or legs - You become worse * Telephone Encounter - Carmen Perkins - 03/23/2024 9:50 AM EST Tc from pt neonatal intensive care nurse calling to report ED visit on : Date: 03/19 Hospital: [facility] Seen for: Chest pain, Abdominal pain. Symptomatic Yes (Can't walk normally) *if yes message should go to Triage Patient advised will forward to team nurse for follow up [phone] georgian documented in this encounter Plan of Treatment Upcoming Encounters Date Type Department Care Team (Late st Contact Info) Description 05/17/2024 1:30 PM EDT [facility] [address] [place] [address] Cristian Chacon MD [address] [place] [address] documented as of this encounter Visit Diagnoses Not on filedocumented in this encounter Additional Health Concerns Assessment Noted Time PHQ-9 Depression Total Score: 16 024 1:19 PM EDT documented as of this encounter Care Teams Professional Nursing Tutor Relationship Specialty Start Date End Date Cristian Chacon MD [address] [place] [address] PCP - General Internal Medicine 03/17/19 Ivy Payne [place] AssessorRestaurant General Manager 11/26/23 documented as of this encounter
--- OUTSIDE RECORDS SUMMARY | 2024-05-02 14:20 | XMS_ITS | Clinical Summary ---
Author Organization [facility] Address [address] [place] [address] Care Team Providers Care Stock Shaper Name Role Phone Unavailable Primary Care Provider Unavailabl e Social History Tobacco Use Types Packs/Day Years Used Date Smoking Tobacco: Never Assessed Sex and Gender Information Value Date Recorded Sex Assigned at Not on file Gender Identity Not on file Sexual Orientation Not on file Plan of Treatment Health Maintenance Due Date Last Done Comments Hepatitis B Vaccines (1 of 3 - 3-dose series) 1968 Hepatitis C Screening 1968 COVID-19 Vaccine (#1) 01/19/1969 Depression Screening 1980 Preventative Health Evaluation 1986 Cervical Cancer Screening (Pap Smear) 1989 Colon Cancer Screening (Colonoscopy) 2013 Breast Cancer Screening (Mammogram) 2018 Shingrix-Zoster Vaccine (1 o f 2) 2018 DTap / Tdap / Td (2 - Td or Tdap) 10/14/2020 10/14/2010 Influenza Vaccine (#1) 2023 , 03/13/2009 Pneumococcal Vaccine Aged Out 10/14/2010 No long er eligible based on patient's age to complete this topic RSV Ped < 20 months Aged Out No longe r eligible based on patient's age to complete this topic
--- OUTSIDE RECORDS SUMMARY | 2024-05-02 14:20 | XMS_ITS | Encounter Summary ---
Author Organization [employer] Address [address] [place] [address] Care Team Providers Care Automobile Parker Name Role Phone Cristian Chacon MD Primary Care Prov ider Encounter Details Date Type Department Care Team (Late st Contact Info) Description 03/22/2024 Orders Only [facility] MED & PEDS [address] [place], [place] [id number] Provider, MD Roderick Social History Tobacco Use [...] Description 05/17/2024 1:30 PM EDT Office Visit [facility] MED & PEDS [address] [place] [address] Cristian Chacon MD [address] [place] [address] documented as of this encounter Procedures Procedure Name Priority Date/Time Associated Diagnosis Comments CT CHEST ANGIO W AND WO IV CONTRAST Routine 03/19/2024 1:44 PM EST ECG 12-LEAD Routine 03/19/2024 1:42 PM EST documented in this encounter Results * CT CHEST ANGIO W AND WO IV CONTRAST (03/19/2024 1:44 PM EST) Anatomical Region Laterality Modality Computed Tomogra phy Historical Provider IMG CT PROCEDURES Final R esult * ECG 12 lead (03/19/2024 1:42 PM EST) Historical Provider ECG ORDERABLES Final Res ult documented in this encounter Visit Diagnoses Not on filedocumented in this encounter Additional Health Concerns Assessment Noted Time PHQ-9 Depression Total Score: 16 024 1:19 PM EDT documented as of this encounter Care Teams Automobile Parker Relationship Specialty Start Date End Date Cristian Chacon MD [address] [place] [address] PCP - General Internal Medicine 03/17/19 Ivy Payne Jewelry SalespersonMechanic And Welder 11/26/23 documented as of this encounter
--- OUTSIDE RECORDS SUMMARY | 2024-05-02 14:20 | XMS_ITS | Encounter Summary ---
Author Organization [employer] Address [address] [place] [address] Care Team Providers Care Product Technician Name Role Phone Cristian Chacon MD Primary Care Prov ider Encounter Details Date Type Department Care Team (Late st Contact Info) Description 02/19/2024 Orders Only [facility] CH[facility] MED & PEDS [address] [place] [address] Provider, MD Roderick Social History Tobacco Use [...] 05/17/2024 1:30 PM EDT Office Visit [facility] MED & PEDS [address] [place] [address] Cristian Chacon MD [address] [place] [address] documented as of this encounter Procedures Procedure Name Priority Date/Time Associated Diagnosis Comments CT CHEST WO CONTRAST Routine 02/16/2024 9:13 AM EST documented in this encounter Results * CT Chest w/o Contrast (02/16/2024 9:13 AM EST) Anatomical Region Laterality Modality Body, Chest Computed Tomogra phy us Historical Provider MD MAHONEY CT PROCEDURES Final R esult documented in this encounter Visit Diagnoses Not on filedocumented in this encounter Additional Health Concerns Assessment Noted Time PHQ-9 Depression Total Score: 16 024 1:19 PM EDT documented as of this encounter Care Teams Product Technician Relationship Specialty Start Date End Date Cristian Chacon MD [address] [place] [address] PCP - General Internal Medicine 03/17/19 Ivy Payne Staff Field EngineerEngraving Operator 11/26/23 documented as of this encounter
--- OUTSIDE RECORDS SUMMARY | 2024-05-02 14:20 | XMS_ITS | Encounter Summary ---
Author Organization [employer] Address [address] [place] [address] Care Team Providers Care Internal Grinding Machine Operator Name Role Phone Cristian Chacon MD Primary Care Prov ider Encounter Details Date Type Department Care Team (Latest Contact Info) Description 04/04/2024 Travel Social History Tobacco Use Types Packs/Day [...] Description 05/17/2024 1:30 PM EDT Office Visit [facility] MED & PEDS [address] [place] [address] Cristian Chacon MD [address] [place] [address] documented as of this encounter Visit Diagnoses Not on filedocumented in this encounter Additional Health Concerns Assessment Noted Time PHQ-9 Depression Total Score: 16 024 1:19 PM EDT documented as of this encounter Care Teams Internal Grinding Machine Operator Relationship Specialty Start Date End Date Cristian Chacon MD [address] [place] [address] PCP - General Internal Medicine 03/17/19 Ivy Payne Stringing Machine OperatorCollections Assistant 11/26/23 documented as of this encounter
--- OUTSIDE RECORDS SUMMARY | 2024-05-02 14:20 | XMS_ITS | Encounter Summary ---
Author Organization [facility] Address [address] [place] [address] Care Team Providers Care Blade Aligner Name Role Phone Cristian Chacon MD Primary Care Prov ider Reason for Visit * Reason Onset Date Comments PAC Form/Letter/Records Request 04/21/2024 Encounter Details Date Type Department Care Team ([facility] st Contact Info) Description 04/21/2024 Telephone [facility] 4th floor Cardiology Medicine [address] [place] [phone] Organ Tuner Electronic: Mary Arriaga Telephone Intake, Staff PAC Form/Letter/Records Request Social History Tobacco Use Types Packs/Day Years [...] encounter Miscellaneous Notes * Telephone Encounter - Sophia Cage - 04/21/2024 12:05 PM EST New Pt to Dr Noriega Letter/ Form Request What is the reason for the letter/form? Appointment information What information does it need to contain? Date/time and provider for the appt Have we done this letter/ form before? If yes, when? No How should this be sent? address What is the best number to reach you at if we have any questions? [phone] PAC called out to book this appt with the pt, she is asking for an appt letter with the address, date/time and provider's name The address on file is correct and she can be reached at [phone] for any questions Thank you documented in this encounter Plan of Treatment Upcoming Encounters Date Type Department Care Team (Late st Contact Info) Description 06/01/2024 9:00 AM EDT Office Visit [facility] 4th floor Cardiology Medicine [address] [place] [phone] Organ Tuner Electronic: Hemal Fritz MD [address] [place] [phone] 08/02/2024 1:30 PM EDT [facility] [address] [place] [address] Organ Tuner Electronic: Morales Ramsey MD [address] [place] [phone] 08/16/2024 2:00 PM EDT Office Visit [facility] [address] [place] [phone] Organ Tuner Electronic: Dennis Laguna MD [address] [place] [phone] Scheduled Procedures Name Priority Associated Diagnoses Date/Ti me ARTHROSCOPY, SHOULDER, WITH ROTATOR CUFF REPAIR Chronic left shoulder pain ARTHROSCOPY, SHOULDER, DEBRI RONAL, EXTENSIVE Chronic left shoulder pain ARTHROSCOPY, SHOULDER, BICEP S TENODESIS Chronic left shoulder pain documented as of this encounter Visit Diagnoses Not on filedocumented in this encounter Care Teams Blade Aligner Relationship Specialty Start Date End Date Cristian Chacon MD [address] [place] [phone] PCP - General 06/04/22 documented as of this encounter
--- OUTSIDE RECORDS SUMMARY | 2024-05-02 14:20 | XMS_ITS | Encounter Summary ---
Author Organization [employer] Address [address] [place] [address] Care Team Providers Care Health Advocate Name Role Phone Cristian Chacon MD Primary Care Prov ider Encounter Details Date Type Department Care Team (Late st Contact Info) Description 04/04/2024 3:30 PM EST Office Visit [facility] CHC MED & PEDS [address] [place], [place] [phone] Cristian Chacon MD [address] [place] [address] Dietary counseling; Exercise counseling; Systemic lupus erythematosus, unspecified SLE type, unspecified organ involvement status ([facility]); Type 2 diabetes mellitus without complication, without long-term current use of insulin ([facility]); Asthma, unspecified asthma severity, unspecified whether complicated, unspecified whether persistent Social History Tobacco Use Types Packs/Day Years [...] Sign Reading Time Taken Comments Blood Pressure 128/84 04/04/2024 3:49 PM EST Pulse 68 04/04/2024 3:49 PM EST Temperature 37 ??C (98.6 ??F) 04/04/2024 3:49 PM EST Respiratory Rate 20 04/04/2024 3:49 PM EST Oxygen Saturation - - Inhaled Oxygen Concentration - - Weight 90.9 kg (200 lb 6.4 oz) 04/04/2024 3:49 P M EST Height 157.5 cm (5' 2 ) 04/04/2024 3:49 PM EST Body Mass Index 36.65 04/04/2024 3:49 PM EST documented in this encounter Progress Notes * Cristian Martinez MD - 04/04/2024 3:30 PM EST Subjective Patient ID: Scarlett Liriano is a 53 y.o. female who presents for No chief complaint on file.. Asthma There is no chest tightness, frequent throat clearing or wheezing. Associated symptoms include nasal congestion and sneezing. Pertinent negatives include no sore throat or trouble swallowing. Her past medical history is significant for asthma. Review of Systems HENT: Positive for sneezing. Negative for sore throat and trouble swallowing. Respiratory: Negative for wheezing. Objective Physical Exam Constitutional: Appearance: Normal appearance. Cardiovascular: Rate and Rhythm: Normal rate and regular rhythm. Heart sounds: No murmur heard. Pulmonary: Effort: Pulmonary effort is normal. No respiratory distress. Breath sounds: No stridor. Neurological: General: No focal deficit present. Mental Status: She is alert and oriented to person, place, and time. Mental status is at baseline. Psychiatric: Mood and Affect: Mood normal. Behavior: Behavior normal. Assessment/Plan Problem List Items Addressed This Visit Asthma Clear to auscultation bilaterally, will renew inhalers Relevant Medications albuterol (2.5 MG/3ML) 0.083% nebulizer solution albuterol (Ventolin HFA) 108 (90 Base) MCG/ACT inhaler Type 2 diabetes mellitus without complication, without long-term current use of insulin ([facility]) Relevant Orders POCT Glucose (Completed) Systemic lupus erythematosus ([facility]) Other Visit Diagnoses Dietary counseling Exercise counseling documented in this encounter Plan of Treatment Upcoming Encounters Date Type Department Care Team (Late st Contact Info) Description 05/17/2024 1:30 PM EDT Office Visit [facility] MED & PEDS [address], [place] [phone] Cristian Chacon MD [address] [place] [address] documented as of this encounter Procedures Procedure Name Priority Date/Time Associated Diagnosis Comments POCT GLUCOSE Routine 04/04/2024 4:00 PM EST Type 2 diabetes mellitus without complication, without long-term current use of insulin ([facility]) documented in this encounter Results * POCT Glucose (04/04/2024 4:00 PM EST) Glucose Blood, POC 174 60 - 200 mg/dL QC Media Lot # [id number] Lot# Expiration Date Blood Capillary blood specimen / Unknown 04/04/2024 4:00 PM EST Cristian Martinez MD POINT OF CARE TEST ENTER/EDIT ORDERABLES Final Result documented in this encounter Visit Diagnoses Diagnosis Dietary counseling Dietary surveillance and counseling Exercise counseling Systemic lupus erythematosus, unspecified SLE type, unspecified organ involvement status ([facility]) Type 2 diabetes mellitus without complication, without long-term current use of insulin ([facility]) Asthma, unspecified asthma severity, unspecified whether complicated, unspecified whether persistent documented in this encounter Additional Health Concerns Assessment Noted Time PHQ-9 Depression Total Score: 16 024 1:19 PM EDT documented as of this encounter Care Teams Health Advocate Relationship Specialty Start Date End Date Cristian Chacon MD [address] [place] [phone] PCP - General Internal Medicine 03/17/19 Ivy Payne Cash On Delivery ClerkRn Transitional 11/26/23 documented as of this encounter
--- OUTSIDE RECORDS SUMMARY | 2024-05-02 14:20 | XMS_ITS | Encounter Summary ---
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 (04/20/2024 9:23 AM EST) NA 139 135 - 145 mmol/L 04/20/2024 10:34 AM EST [facility] K 3.8 3.5 - 5.3 mmol/L 04/20/2024 10:34 AM [facility] Cl 105 98 - 107 mmol/L 04/20/2024 10:34 AM [facility] CO2 24 22 - 32 mmol/L 04/20/2024 10:34 AM [facility] Anion Gap 10 5 - 15 04/20/2024 10:34 AM [facility] Glucose 177(H) 65 - 99 mg/dL 04/20/2024 10:34 AM [facility] Creatinine 0.73 0.50 - 1.20 mg/dL 04/20/2024 10:34 AM [facility] Calcium 8.4(L) 8.6 - 10.5 mg/dL 04/20/2024 10:34 AM [facility] Total Protein 6.9 6.0 - 8.0 g/dL 04/20/2024 10:34 AM [facility] Albumin 3.4(L) 3.5 - 5.2 g/dL 04/20/2024 10:34 AM [facility] Bilirubin, Total 0.3 0.2 - 1.2 mg/dL 04/20/2024 10:34 AM EST [facility] Alkaline Phosphatase 50 35 - 129 U/L 04/20/2024 10:34 AM EST [facility] AST 14 10 - 40 U/L 04/20/2024 10:34 AM EST [facility] ALT 11 10 - 40 U/L 04/20/2024 10:34 AM EST [facility] BUN 24(H) 7 - 23 mg/dL 04/20/2024 10:34 AM EST [facility] eGFR >90 >=60 mL/min/1. 73m2 04/20/2024 10:34 AM EST [facility] Comment:The estimated glomer ular filtration [...] - 4.2 g/dL 04/20/2024 10:34 AM EST [facility] A/G Ratio 1.0(L) 1.5 - 3.0 04/20/2024 10:34 AM EST [facility] Blood Structure of peripheral vein / Unknown Venipuncture / Unknown 04/20/2024 9:23 AM EST 04/20/2024 9:38 AM EST us Alonzo Persaud MD LAB BLOOD ORDERABLES Final Result [facility] [address] [place] [address], [place] * (ABNORMAL) CBC Auto Differential (04/20/2024 9:23 AM EST) WBC 12.4(H) 3.8 - 10.8 10*3/uL 04/20/2024 9:47 AM [facility] RBC 4.34 3.80 - 5.10 10*6/uL 04/20/2024 9:47 AM [facility] Hemoglobin 12.3 11.7 - 15.5 g/dL 04/20/2024 9:47 AM [facility] Hematocrit 39.1 35.0 - 45.0 % 04/20/2024 9:47 AM [facility] MCV 90.1 80.0 - 100.0 fL 04/20/2024 9:47 AM [facility] MCH 28.3 27.0 - 33.0 pg 04/20/2024 9:47 AM [facility] MCHC 31.5(L) 32.0 - 36.0 g/dL 04/20/2024 9:47 AM [facility] RDW 13.4 11.0 - 15.0 % 04/20/2024 9:47 AM [facility] Platelets 351 140 - 400 10*3/uL 04/20/2024 9:47 AM [facility] MPV 9.4 7.5 - 12.5 fL 04/20/2024 9:47 AM [facility] Neutrophil % 88.3 % 04/20/2024 9:47 AM [facility] Immature Grans % 1.1(H) 0.0 - 0.9 % 04/20/2024 9:47 AM [facility] Lymphocyte % 6.1 % 04/20/2024 9:47 AM [facility] Monocyte % 4.1 % 04/20/2024 9:47 AM [facility] Eosinophil % 0.2 % 04/20/2024 9:47 AM EST [facility] Basophil % 0.2 % 04/20/2024 9:47 AM EST [facility] Neutrophil # 10.92(H) 1.50 - 7.80 10*3/uL 04/20/2024 9:47 AM EST [facility] Immature Grans # 0.14(H) <=0.03 10*3/uL 04/20/2024 9:47 AM EST [facility] Lymphocyte # 0.80(L) 0.85 - 3.90 10*3/uL 04/20/2024 9:47 AM EST [facility] Monocyte # 0.50 0.20 - 0.95 10*3/uL 04/20/2024 9:47 AM EST [facility] Eosinophil # <0.03 0.02 - 0.50 10*3/uL 04/20/2024 9:47 AM EST [facility] Basophil # <0.03 0.00 - 0.20 10*3/uL 04/20/2024 9:47 AM EST [facility] nRBC % 0.0 /100 WBCs 04/20/2024 9:47 AM EST [facility] nRBC # <0.01 <0.01 10*3/uL 04/20/2024 9:47 AM EST [facility] Blood Structure of peripheral vein / Unknown Venipuncture / Unknown 04/20/2024 9:23 AM EST 04/20/2024 9:38 AM EST us Alonzo Persaud MD LAB BLOOD ORDERABLES Final Result [facility] [address] [place] [address], [place] * (ABNORMAL) Creatine Kinase (04/20/2024 9:23 AM EST) CK 35(L) 38 - 206 U/L 04/20/2024 10:34 AM EST [facility] Blood Structure of peripheral vein / Unknown Venipuncture / Unknown 04/20/2024 9:23 AM EST 04/20/2024 9:38 AM EST us Alonzo Persaud MD LAB BLOOD ORDERABLES Final Result [facility] [address] [place] [address], * Complement C4 (04/20/2024 9:23 AM EST) Complement Component C4C 21 15 - 57 mg/dL 04/21/2024 4:22 AM EST [facility] Blood Structure of peripheral vein / Unknown Venipuncture / Unknown 04/20/2024 9:23 AM EST 04/20/2024 9:38 AM EST Narrative [facility] - 04/21/2024 4:22 AM EST [facility] Received Date: Alonzo Persaud MD LAB BLOOD ORDERABLES Final Result Performing Organization Address City/[facility] Co de Phone Number [facility] [address] [facility] 3rd Floor, [place] [address], [place] [phone] [facility] [address], [place] [address], [place] [phone] * Complement C3 (04/20/2024 9:23 AM EST) Complement Component C3C 101 83 - 193 mg/dL 04/21/2024 4:22 AM EST [facility] Blood Structure of peripheral vein / Unknown Venipuncture / Unknown 04/20/2024 9:23 AM EST 04/20/2024 9:38 AM EST Narrative [facility] - 04/21/2024 4:22 AM EST [facility] Received Date:[id number] Alonzo Persaud MD LAB BLOOD ORDERABLES Final Result Performing Organization Address City/[facility]/ZIP Co de Phone Number [facility] [address] [facility] 3rd Floor, [place] [address], [place] [phone] [facility] [address] [place] [address], [place] [address], [place] [phone] * Sedimentation Rate (04/20/2024 9:23 AM EST) Sed Rate 23 <30 mm/Hr mm/Hr 04/20/2024 10:04 AM EST [facility] Blood Structure of peripheral vein / Unknown Venipuncture / Unknown 04/20/2024 9:23 AM EST 04/20/2024 9:38 AM EST Alonzo Persaud MD LAB BLOOD ORDERABLES Final Result Performing Organization Address City/[facility] Co de Phone Number [facility] [address] [place] [address], * (ABNORMAL) C-Reactive Protein (04/20/2024 9:23 AM EST) C Reactive Protein 10.5(H) <=9.9 mg/L 04/20/2024 10:34 AM EST [facility] Blood Structure of peripheral vein / Unknown Venipuncture / Unknown 04/20/2024 9:23 AM EST 04/20/2024 9:38 AM EST Alonzo Persaud MD LAB BLOOD ORDERABLES Final Result Performing Organization Address [facility] Co de Phone Number [facility] [address] [place] [address], documented in this encounter Visit Diagnoses Diagnosis FELI positive- Primary Arthralgia, unspecified joint Chest pain, unspecified type Moderate persistent asthma, unspecified whether complicated documented in this encounter Care Teams Synthetic Filament Spinner Relationship Specialty Start Date End Date Cristian Chacon MD [address] [place] [id number] PCP - General 06/04/22 documented as of this encounter
--- OUTSIDE RECORDS SUMMARY | 2024-05-02 14:20 | XMS_ITS | Encounter Summary ---
Author Organization [facility] Address [address] [place] [address] Care Team Providers Care Vessel Master Name Role Phone Cristian Chacon MD Primary Care Prov ider Reason for Visit * Reason Onset Date Comments Rosacea 08/09/2021 Pt is calling to schedule a new pt apt for rosacea. Please call pt at [phone] Encounter Details Date Type Department Care Team ([facility] Contact Info) Description 08/09/2021 Telephone [facility] Central Scheduling Department [address] [place] [address] Telephone Intake, Staff Cash (Pt is calling to schedule a new pt apt for rosacea. Please call pt at [phone]) Social History Tobacco Use Types Packs/Day Years Used Date Smoking Tobacco: Never Assessed Comments Unknown Sex and Gender Information Value Date Recorded Sex Assigned at Female 06/17/2023 10:04 AM EDT Legal Sex Female 11:38 AM EDT Gender Identity Not on file Sexual Orientation Not on file documented as of this encounter Miscellaneous Notes * Telephone Encounter - Mya Perkins - 08/09/2021 10:51 AM EDT Documentation purpose. lvm at [phone]. Pt is calling to schedule a new pt apt for rosacea. Please call pt at [phone] documented in this encounter Plan of Treatment Upcoming Encounters Date Type Department Care Team ([facility] Contact Info) Description 06/01/2024 9:00 AM EDT Office Visit [facility] 4th floor Cardiology Medicine [address] [place] [address] Senior Staff Accountant: Hemal Fritz MD [address] [place] [phone] 08/02/2024 1:30 PM EDT Follow-Up [facility] [address] [place] [address] Senior Staff Accountant: Morales Ramsey MD [address] [place] [address] 08/16/2024 2:00 PM EDT Office Visit [facility] [address] [place] [id number] Senior Staff Accountant: Dennis Laguna MD [address] [place] [phone] Scheduled Procedures Name Priority Associated Diagnoses Date/Ti me ARTHROSCOPY, SHOULDER, WITH ROTATOR CUFF REPAIR Chronic left shoulder pain ARTHROSCOPY, SHOULDER, DEBRI RONAL, EXTENSIVE Chronic left shoulder pain ARTHROSCOPY, SHOULDER, BICEP S TENODESIS Chronic left shoulder pain documented as of this encounter Visit Diagnoses Not on filedocumented in this encounter Care Teams Vessel Master Relationship Specialty Start Date End Date Cristian Chacon MD [address] [place] [id number] PCP - General 06/04/22 documented as of this encounter
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
--- OUTSIDE RECORDS SUMMARY | 2024-05-02 14:20 | XMS_ITS | Encounter Summary ---
Author Organization [employer] Address [address] [place] [address] Care Team Providers Care Computer Engineering Professor Name Role Phone Cristian Chacon MD Primary Care Prov ider Reason for Visit * Reason Onset Date Comments Medication Question 09/12/2022 Encounter Details Date Type Department Care Team ([facility] st Contact Info) Description 09/12/2022 Telephone [facility] [address] [place], [place] [phone] Cristian Chacon MD [address] [place] [address] Medication Question Social History Tobacco Use Types Packs/Day Years [...] encounter Miscellaneous Notes * Telephone Encounter - Rose Marie Ortega RN - 09/15/2022 4:16 PM EDT TC to pt- Jamee was the cytogenetic technologist. Pt stated she had not picked up the Benadryl yet for rash itchiness. She will do so. Also, pt's photogrammetric technician has retired. She would like PCP to send Rx for epi-pens as she is very allergic to bees. She is leaving for vacation this weekend. She is aware request to be sent to PCP as he iscovering his own meds this week. * Telephone Encounter - Cynthia Smith - 09/12/2022 11:35 AM EDT Tc from pt requesting a call back . States last office visit they were going to send some medications for her rash and she believes they didn't send all of them . Pt would also like to know if pcp can prescribe her Epipen due to no longer having a specialist . documented in this encounter Plan of Treatment Upcoming Encounters Date Type Department Care Team (Late st Contact Info) Description 05/17/2024 1:30 PM EDT Office Visit [facility] [address] [place] [address] Cristian Chacon MD [address] [place] [address] documented as of this encounter Visit Diagnoses Not on filedocumented in this encounter Care Teams Computer Engineering Professor Relationship Specialty Start Date End Date Cristian Chacon MD [address] [place] [address] PCP - General Internal Medicine 03/17/19 Ivy Payne Cook Fish And ChipsDisabilities Services Officer 03/03/23 11/25/23 Ivy Payne Project SuperintendentDisabilities Services Officer 11/26/23 documented as of this encounter
== END 2024-05-02 12:14 | disposition home or self-care (01) ==
LOC: HO.US 12:13
PROVIDERS: PCP Family Medicine; Visit Provider Obstetrics & Gynecology
DX: R10.2 Pelvic and perineal pain (principal)
CPT/HCPCS: 76830; 76856

== ENCOUNTER → 2024-05-02 12:14 | Outpatient (BNV) | payer MEDICAID, SELFPAY | PROVIDERS: PCP Family Medicine; Visit Provider Radiology Diagnostic Radiology | DX: R10.2 Pelvic and perineal pain (principal) | CPT/HCPCS: 76830; 76856 ==

== ENCOUNTER 2024-05-03 10:19 | Emergency (ER) | payer MEDICAID, SELFPAY ==
--- NOTE | ~2024-05-03 | XR_ITS ---
EXAMINATION: XR CHEST CLINICAL INFORMATION: chest pain COMPARISON: Chest pain TECHNIQUE: Frontal view of the chest was obtained. FINDINGS: There is mild cardiomegaly with increased pulmonary vascularity and markings in both lower lobes suggestive osseous mild CHF. There is bibasilar scarring or atelectasis. No pleural effusion. No gross bony abnormality. XR/XR chest 1V IMPRESSION: Cardiomegaly with mild CHF suspected. There is bibasilar scarring and/or atelectasis. Electronically signed by: Oli Schmidt MD 05/03/2024 11:36 AM [facility]
--- NOTE | 2024-05-03 10:24 | ECG_ITS ---
Test Reason : chest pain Blood Pressure : */* mmHG Vent. Rate : 100 BPM Atrial Rate : 100 BPM P-R Int : 116 ms QRS Dur : 74 ms QT Int : 354 ms P-R-T Axes : 53 -9 20 degrees QTcB Int : 456 ms Normal sinus rhythm Normal ECG No previous ECGs available Referred By: Dana Montenegro Electronically Signed By: CHRISTINA VICTORIA MD
[2024-05-03 10:36] VITALS: BP 127/87; PULSE 98; RESP 18; TEMP 36.6; O2SAT 98; BMI 39.1
--- NOTE | 2024-05-03 10:36 | ED_ITS ---
HPI - Chest Pain General Chief Complaint: Chest Pain Stated Complaint: Chest pain, neck pain Time Seen by Provider: 05/03/24 17:42 Source: patient, old records reviewed and chief librarian extension department Mode of arrival: ambulatory Limitations: no limitations History of Present Illness ED Provider: Dr. Obregon HPI narrative: 53 year old female PMH: gastritis, esophagitis, DM, abdominal pain n/v, migraine, asthma, GERD, cerebral palsy, fibromyalgia who presents emergency department for total body pain which has been going on for months she has been in multiple hospitals she also changed her complaints did not being able to walk patient did walk to her room into the bathroom while here. 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 and since then she has not been able to go on a taper she was just given 5 days of 50 mg she states she has been on a long taper and that will work for her pain she also wants a script for her advair Related Data Home Medications ?Medication ?Instructions ?Recorded ?Confirmed albuterol sulfate 90 mcg/actuation 2 puff inhalation Q6H PRN 12/27/19 03/01/24 aerosol inhaler Shortness Of Breath Or Wheezing fluticasone propionate 50 1 inh inhalation BID 12/27/19 03/01/24 mcg/actuation blister powder for inhalation loratadine 10 mg tablet 10 mg PO DAILY 12/27/19 03/01/24 montelukast 10 mg tablet 10 mg PO BEDTIME 12/27/19 03/01/24 (Singulair) fluticasone propionate 230 1 inh inhalation BID 08/05/22 03/01/24 mcg-salmeterol 21 mcg/actuation HFA inhaler (Advair HFA) cholecalciferol (vitamin D3) 25 25 mcg PO DAILY 09/19/22 03/01/24 mcg (1,000 unit) capsule lorazepam 2 mg tablet 2 mg PO BEDTIME PRN Anxiety 10/13/23 03/01/24 losartan 25 mg tablet 25 mg PO QAM 10/13/23 03/01/24 sertraline 50 mg tablet 50 mg PO BEDTIME depressive 10/13/23 03/01/24 disorder prednisone 5 mg tablet 5 mg PO BID 01/03/25 tizanidine 2 mg tablet 2 mg PO Q6H PRN muscle spasm 03/04/24 zolpidem 10 mg tablet 10 mg PO BEDTIME PRN insomnia 03/04/24 Previous Rx's ?Medication ?Instructions ?Recorded amitriptyline 10 mg tablet 10 mg PO BEDTIME for pain #30 tabs 12/04/22 magnesium oxide 400 mg (241.3 mg 400 mg PO DAILY 30 days #30 tabs 08/25/23 magnesium) tablet riboflavin (vitamin B2) 400 mg 400 mg PO DAILY 30 days #30 tabs 08/25/23 tablet sumatriptan succinate 100 mg tablet 50 - 100 mg (0.5 - 1 x 100 mg) PO 08/25/23 .COMPLEX PRN migraine headache 30 days #12 tabs dicyclomine 10 mg capsule 10 mg PO TID #90 caps 03/04/24 fluconazole 200 mg tablet 200 mg PO DAILY 10 days #10 tabs 03/04/24 (Diflucan) omeprazole 40 mg capsule,delayed 40 mg PO BID 30 days #180 caps 03/08/24 release fluticasone propionate 230 2 puff inhalation BID asthma #12 05/03/24 mcg-salmeterol 21 mcg/actuation grams HFA inhaler (Advair HFA) prednisone 10 mg tablet 10 mg PO DIRECTED copd #52 tabs 05/03/24 Allergies Allergy/AdvReac Type Severity Reaction Status Date / Time duloxetine [From CYMBALTA] Allergy Unknown UNKNOWN Verified 05/03/24 10:39 pregabalin [From LYRICA] Allergy Unknown UNKNOWN Verified 05/03/24 10:39 meperidine [From DEMEROL] AdvReac Intermediate N/V Verified 05/03/24 10:39 oxycodone [From Percocet] AdvReac Intermediate itching Verified 05/03/24 10:39 Review of Systems 2 Review of Systems: Review of systems: General: Patient denies any fever chills recent illness or falls Musculoskeletal: Denies back pain or body aches or other injuries HEENT: denies headache, runny nose, ear pain Respiratory: denies shortness of breath, cough Cardiovascular:pain with respirations : denies dysuria, frequency Abdomen: no nausea vomiting denies abdominal pain Extremities: no swelling, pain everywhere Skin: no diaphoresis Yes all other systems are reviewed and are negative PMFSH Past Medical History Medical History Pre-op examination Hemifacial spasm Abdominal pain Pelvic pain in female Bilateral shoulder pain Vulvar irritation WISE (nonalcoholic steatohepatitis) Elevated antinuclear antibody (FELI) level FELI positive Encounter to discuss test results Hemifacial spasm of left side of face Peptic ulcer disease Esophageal spasm Family history of cerebral aneurysm Fibromyalgia Irritable bowel syndrome with both constipation and diarrhea History of meningitis Surgical History History of esophagogastroduodenoscopy (EGD) Keloid of skin H/O neck surgery Hx of section Hx of hysterectomy Hx of breast lump removal (~2019) History of bladder suspension procedure H/O bilateral breast reduction surgery Family History Family History Mother Aneurysm Endometrial cancer Father No problems noted. Social History Social History Alcohol intake: never Patient Tobacco Use Status: Never used Tobacco Advance Directives: No Advance Directives Information Provided: Yes Do you have a plan to hurt others: No Plan Sexual orientation: Straight/Heterosexual Gender identity: Female Physical Exam 2 Vital Signs: Vital Signs: Last Vital Signs Temp 98 F 05/03/24 10:36 Pulse 98 05/03/24 10:36 Resp 18 05/03/24 10:36 BP 127/87 05/03/24 10:36 Pulse Ox 98 05/03/24 10:36 O2 Del Method Room Air 05/03/24 10:36 BMI result Body Mass Index 39.1 Neurological exam: CN II- XII tested. Patient is alert and oriented to person place and time. Patient has no dysphagia or dysarthia, denies good vision in all four vision tineo no nystagmus on exam, good strength to upper and lower extremities with normal reflexes to brachioradialis, wrist, patella and achilles. Negative romberg, good finger to nose and heel to christopher. General: Well-appearing well-nourished in no signs of distress HEENT: Normocephalic atraumatic Neck: No signs of JVD, no masses no tenderness or lymphadenopathy Cardiovascular: Regular rate and rhythm Respiratory: Clear to auscultation bilaterally Abdomen: Soft nontender no masses Extremities: Normal pedal pulses no signs of edema Skin: Dry warm no rashes Back: No tenderness full ROM Course Course Course Narrative: 53 yo female with PMH of gastritis, esophagitis, DM, abdominal pain n/v, migraine, asthma, GERD, cerebral palsy, fibromyalgia - she notes she has been to every hospital in the area with repeat visits to the local ED and has been sick since March. She reports lung pain, burning chest, she notes her whole body hurts. She has been on prednisone but no antibiotics. In March before this all started she denies any known triggers or exposures. She states she has a lot of fibromyalgia pain and cannot walk. She went to [facility]. At this time EKG, basic labs, CXR, infl markers ordered this is a RAPID medical screening exam the rest of the history and physical exam is to be done by the main provider. Medical Decision Making Medical Decision Making [facility] Narrative: x-ray and labs done are all negative patient is requesting prednisone for a long period of time I did explain that it is probably not warranted she is not currently wheezing she states she has to have it I will send it to her pharmacy as well as refill of her advair Differential Diagnosis bronchitis pleuritis chest pain pneumonia COVID flu RSV Lab Data [facility] Lab Attestation statement: I reviewed the patient's lab results. 05/03/24 11:04 05/03/24 11:04 Labs: Lab Results 05/03/24 05/03/24 Range/Units 11:04 17:08 WBC 8.1 (4.8-10.8) X10*3/uL RBC 4.07 L (4.20-5.50) X10*6/uL Hgb 11.9 L (12.0-16.0) g/dl Hct 35.8 L (37.0-47.0) % MCV 88.0 (80.0-98.0) fL MCH 29.2 (27.0-33.0) pg MCHC 33.2 (31.0-35.0) g/dl RDW 14.4 (11.0-16.0) % Plt Count 339 (160-400) X10*3/uL MPV 9.3 L (9.4-12.3) fL Immature Gran % (Auto) 0.6 H (0.0-0.4) % Neut % (Auto) 83.7 H (45-73) % Lymph % (Auto) 11.5 L (20-40) % Alcorn % (Auto) 3.6 (2-11) % Eos % (Auto) 0.5 (0-4) % Baso % (Auto) 0.1 (0-2) % Lymph # (Auto) 0.9 L (1.2-4.9) X10*3/uL Alcorn # (Auto) 0.3 (0.1-1.2) X10*3/uL Eos # (Auto) 0.0 (0.0-0.4) X10*3/uL Baso # (Auto) 0.0 (0.0-0.2) X10*3/uL Abs Immat Gran (auto) 0.05 H (0.00-0.03) X10*3/uL Absolute Neuts (auto) 6.7 (2.0-8.3) x10*3/uL Absolute Nucleated RBC 0.000 (0.0-0.012) X10*3/uL Nucleated RBC % (auto) 0.0 (0.0-0.2) /100WBC PT 11.7 (10.9-12.4) SEC INR 1.0 (0.9-1.1) Sodium 140 (135-145) mmol/L Potassium 3.5 (3.3-5.1) mmol/L Chloride 108 (96-108) mmol/L Carbon Dioxide 23 (22-29) mmol/L Anion Gap 13 (12-20) BUN 18 H (9-16) mg/dL Creatinine 0.70 (0.5-1.4) mg/dL Estim Creat Clear Calc 91.1 Estimated GFR > 60 Random Glucose 179 H (60-115) mg/dL Calcium 8.6 (8.4-10.2) mg/dL Magnesium 2.1 (1.6-2.6) mg/dL Total Bilirubin 0.5 (0.0-1.0) mg/dL Direct Bilirubin 0.2 (0.0-0.5) mg/dL AST 14 (5-31) U/L ALT 13 (0-31) U/L Alkaline Phosphatase 54 (39-117) U/L Total Creatine Kinase 35 (26-140) U/L Troponin I High Sens < 2.7 7.4 D (<3.5-17.0) ng/L C-Reactive Protein 3.79 H (< or = 0.50) mg/dL B-Natriuretic Peptide 44 (<100) pg/mL Total Protein 7.0 (6.5-8.0) g/dL Albumin 3.5 (3.5-5.0) g/dL Lipase 37 (8-78) U/L Influenza Type A (PCR) NEGATIVE (Negative) Influenza Type B (PCR) NEGATIVE (Negative) RSV RNA Qual (PCR) NEGATIVE (Negative) SARS-CoV-2 RNA (RT-PCR) NEGATIVE (Negative) Independent Interpretation I performed an independent interpretation of an: Plain X-Ray Radiology Impression Discussion of test interpretation with radiology: I have reviewed the radiologist's reading. Discharge Plan Discharge Clinical Impression: Fibromyalgia, Bronchitis, Chest pain Patient Disposition: Home, Self-Care Instructions: Chest Pain (DC), Fibromyalgia (ED), Acute Bronchitis (ED) Additional Instructions: you were seen today in emergency department for chest pain and bronchitis. You had x-ray and labs done as well as swabs for COVID flu and RSV which were all negative. Please call follow up with your doctor if you have any other concerns please return to the ER. Prescriptions: New fluticasone propion-salmeterol [Advair HFA] 230-21 mcg/actuation HFA aerosol inhaler 2 puff inhalation BID Qty: 12 0RF Rx Instructions: administer with spacer prednisone 10 mg tablet 10 mg PO DIRECTED Qty: 52 0RF Rx Instructions: see taper instructions. Please take 6 tabs for 5 days then 5 tabs for 5 days then 4 tabs for 5 days then 3 tabs for 5 days then 2 tabs for 5 days then 1 tab for 5days No Action amitriptyline 10 mg tablet 10 mg PO BEDTIME Qty: 30 1RF omeprazole 40 mg capsule,delayed release(DR/EC) 40 mg PO BID 30 Days Qty: 180 1RF fluticasone propionate 50 mcg/actuation blister with device 1 inh inhalation BID loratadine 10 mg tablet 10 mg PO DAILY montelukast [Singulair] 10 mg tablet 10 mg PO BEDTIME albuterol sulfate 90 mcg/actuation HFA aerosol inhaler 2 puff inhalation Q6H PRN (Reason: Shortness Of Breath Or Wheezing) sumatriptan succinate 100 mg tablet 50 - 100 mg PO .COMPLEX PRN (Reason: migraine headache) 30 Days Qty: 12 6RF Rx Instructions: 50 - 100 mg orally at onset of headache, may repeat in 2 hrs PRN; max 2 tabs per day or 4 tabs/week (may take with Ibuprofen) riboflavin (vitamin B2) 400 mg tablet 400 mg PO DAILY 30 Days Qty: 30 6RF Rx Instructions: qam magnesium oxide 400 mg (241.3 mg magnesium) tablet 400 mg PO DAILY 30 Days Qty: 30 6RF fluticasone propion-salmeterol [Advair HFA] 230-21 mcg/actuation HFA aerosol inhaler 1 inh inhalation BID cholecalciferol (vitamin D3) 25 mcg (1,000 unit) capsule 25 mcg PO DAILY sertraline 50 mg tablet 50 mg PO BEDTIME lorazepam 2 mg tablet 2 mg PO BEDTIME PRN (Reason: Anxiety) losartan 25 mg tablet 25 mg PO QAM prednisone 5 mg tablet 5 mg PO BID zolpidem 10 mg tablet 10 mg PO BEDTIME PRN (Reason: insomnia) tizanidine 2 mg tablet 2 mg PO Q6H PRN (Reason: muscle spasm) fluconazole [Diflucan] 200 mg tablet 200 mg PO DAILY 10 Days Qty: 10 0RF dicyclomine 10 mg capsule 10 mg PO TID Qty: 90 6RF Print Language: Sinhala
[2024-05-03 11:13] LABS: MANUAL DIFF FLAG NO
[2024-05-03 11:15] LABS: Basophils Percent Auto 0.1 % (0-2); Eosinophils Percent Auto 0.5 % (0-4); Hematocrit 35.8 % (37.0-47.0); Hemoglobin 11.9 g/dl (12.0-16.0); Imm Gran Abs Auto 0.05 X10*3/uL (0.00-0.03); Imm Gran Pct Auto 0.6 % (0.0-0.4); Lymphocytes Absolute Auto 0.9 X10*3/uL (1.2-4.9); Lymphocytes Percent Auto 11.5 % (20-40); Mean Corpuscular HGB Conc 33.2 g/dl (31.0-35.0); Mean Corpuscular Hemoglobin 29.2 pg (27.0-33.0); Mean Platelet Volume 9.3 fL (9.4-12.3); Monocytes Absolute Auto 0.3 X10*3/uL (0.1-1.2); Monocytes Percent Auto 3.6 % (2-11); Neutrophils Absolute Auto 6.7 x10*3/uL (2.0-8.3); Neutrophils Percent Auto 83.7 % (45-73); Platelet Count 339 X10*3/uL (160-400); Red Blood Count 4.07 X10*6/uL (4.20-5.50); Red Cell Distribution Width 14.4 % (11.0-16.0); White Blood Count 8.1 X10*3/uL (4.8-10.8)
[2024-05-03 11:36] LABS: Alanine Aminotransferase 13 U/L (0-31); Albumin Level 3.5 g/dL (3.5-5.0); Alkaline Phosphatase 54 U/L (39-117); Anion Gap 13 (12-20); Aspartate Amino Transferase 14 U/L (5-31); Bilirubin Direct 0.2 mg/dL (0.0-0.5); Bilirubin Total 0.5 mg/dL (0.0-1.0); Blood Urea Nitrogen 18 mg/dL (9-16); C Reactive Protein 3.79 mg/dL (< or = 0.50); Calcium 8.6 mg/dL (8.4-10.2); Carbon Dioxide 23 mmol/L (22-29); Chloride 108 mmol/L (96-108); Creatinine Clr Calc Pharmacy 91.1; Estimated Glomerular Filt Rate > 60; Glucose Random 179 mg/dL (60-115); Lipase 37 U/L (8-78); Magnesium 2.1 mg/dL (1.6-2.6); Potassium 3.5 mmol/L (3.3-5.1); Sodium 140 mmol/L (135-145)
[2024-05-03 11:43] LABS: B Type Natriuretic Peptide 44 pg/mL (<100)
[2024-05-03 11:45] LABS: Troponin-I High Sensitivity < 2.7 ng/L (<3.5-17.0)
[2024-05-03 11:54] LABS: Influenza A PCR NEGATIVE (Negative); Influenza B PCR NEGATIVE (Negative); Resp Syncy Virus RNA Qual PCR NEGATIVE (Negative); SARS COV2 PCR INHOUSE NEGATIVE (Negative)
--- OUTSIDE RECORDS SUMMARY | 2024-05-03 13:54 | XMS_ITS | Encounter Summary ---
Author Organization [employer] Address [address] [facility] [place] [address] Care Team Providers Care Waiter/Waitress Informal Name Role Phone Cristian Chacon MD Primary Care Prov ider Encounter Details Date Type Department Care Team ([facility] st Contact Info) Description 08/25/[address] [facility] MED & PEDS [address] [place], [place] [phone] Cristian Chacon MD [address] [place] [address] Social History Tobacco Use Types Packs/Day Years Used Date Smoking Tobacco: Never Passive Smoke Exposure: Never Smokeless Tobacco: Never Depression Answer Date Recorded Patient Health Questionnaire-9 Score 14 04/17/2023 Patient Health Questionnaire-9 Score 14 04/17/2023 Last PHQ-9: Questionnaire Data Not on file 0 04/17/2023 Housing Stability Answer Date Recorded What is your housing situation today? I have liyl reeves 05/13/[address] you [...] [facility] [address] [place] [address] Cristian Chacon MD [address] [place] [address] documented as of this encounter Visit Diagnoses Not on filedocumented in this encounter Additional Health Concerns Assessment Noted Time PHQ-9 Depression Total Score: 14 024 9:49 AM EST documented as of this encounter Care Teams Waiter/Waitress Informal Relationship Specialty Start Date End Date Cristian Chacon MD [address] [place] [address] PCP - General Internal Medicine 03/17/19 Ivy Payne Finishing Range OperatorCoremaking Machine Setter 03/03/23 11/25/23 Ivy Payne Lay Health AdvocateCoremaking Machine Setter 11/26/23 documented as of this encounter
--- OUTSIDE RECORDS SUMMARY | 2024-05-03 13:54 | XMS_ITS | Encounter Summary ---
Author Organization [employer] Address [address] [facility] [address] [place] [address] Care Team Providers Care Car Clerk Pullman Name Role Phone Cristian Chacon MD Primary Care Prov ider Reason for Visit * Reason Onset Date Comments Nurse Triage 08/24/2023 Encounter Details Date Type Department Care Team ([facility] st Contact Info) Description 08/24/2023 Telephone C [facility] MED [facility] PEDS [address] [place], [place] [phone] Cristian Chacon MD [address] [place] [address] Nurse Triage Social History Tobacco Use Types [...] 08/24/2023 10:26 AM EDT Triage call with [employer] Agent [place] [id number] Pt reports rash has developed on upper, inner thighs and has spread to private area . Pt describesrash as red, bumpy and itchy. Pt reports some irritation vaginally and burning with urination. Burning is described as occurring when urine contacts rash but, may have other urinary symptoms as well.This is not clear to triage nurse. Advised Pt to come to [facility] today at 230pm. Pt agrees with this [...] accepted this outcome Please contact pt at [phone] (game tester) documented in this encounter Plan of Treatment Upcoming Encounters Date Type Department Care Team ([facility] st Contact Info) Description 05/17/2024 1:30 PM EDT Office Visit [facility] MED & PEDS [address] [place] [address] Cristian Chacon MD [address] [place] [address] documented as of this encounter Visit Diagnoses Not on filedocumented in this encounter Additional Health Concerns Assessment Noted Time PHQ-9 Depression Total Score: 14 024 9:49 AM EST documented as of this encounter Care Teams Car Clerk Pullman Relationship Specialty Start Date End Date Cristian Chacon MD [address] [place] [address] PCP - General Internal Medicine 03/17/19 Ivy Payne Healthcare LiaisonDelivery Technician 03/03/23 11/25/23 Ivy Payne Foreclosure ParalegalDelivery Technician 11/26/23 documented as of this encounter
--- OUTSIDE RECORDS SUMMARY | 2024-05-03 13:54 | XMS_ITS | Encounter Summary ---
Author Organization [email or web address] Address [address] [facility] [address] [place] [address] Care Team Providers Care Bobbin Painter Name Role Phone Cristian Chacon MD Primary Care Prov ider Encounter Details Date Type Department Care Team (Latest Contact Info) Description 04/12/2019 Abstract [facility] CONVERSIONS Dental, Provider, DDS Social History [...] Description 05/17/2024 1:30 PM EDT Office Visit [facility] CHC MED & PEDS [address] [place] [address] Cristian Chacon MD [address] [place] [address] documented as of this encounter Visit Diagnoses Not on filedocumented in this encounter Care Teams Bobbin Painter Relationship Specialty Start Date End Date Cristian Chacon MD [address] [place] [address] PCP - General Internal Medicine 03/17/19 Ivy Payne Directional Drill OperatorCurator Of Manuscripts 03/03/23 11/25/23 Ivy Payne E Business ConsultantCurator Of Manuscripts 11/26/23 documented as of this encounter
--- OUTSIDE RECORDS SUMMARY | 2024-05-03 13:54 | XMS_ITS | Encounter Summary ---
Author Organization [employer] Address [address] [facility] [address] [place] [address] Care Team Providers Care Cracker Sprayer Name Role Phone Cristian Chacon MD Primary Care Prov ider Reason for Visit * Reason Onset Date Comments New med script 04/01/2022 Encounter Details Date Type Department Care Team ([facility] Contact Info) Description 04/01/2022 Telephone [facility] MED & PEDS [address] [place], [place] [phone] Cristian Chacon MD [address] [place] [address] New med script Social History Tobacco Use [...] Department Care Team ([facility] Contact Info) Description 05/17/2024 1:30 PM EDT Office Visit [facility] MED & PEDS [address] [place], [place] [phone] Cristian Chacon MD [address] [place] [address] documented as of this encounter Visit Diagnoses Not on filedocumented in this encounter Care Teams Cracker Sprayer Relationship Specialty Start Date End Date Cristian Chacon MD [address] [place] [address] PCP - General Internal Medicine 03/17/19 Ivy Payne Regulatory Compliance OfficerDental Laboratory Supervisor 03/03/23 11/25/23 Ivy Payne Electrical Research EngineerDental Laboratory Supervisor 11/26/23 documented as of this encounter
--- OUTSIDE RECORDS SUMMARY | 2024-05-03 13:54 | XMS_ITS | Clinical Summary ---
Author Organization [facility] Address [address] [place] [address] Care Team Providers Care Keg Raiser Name Role Phone Cristian Chacon MD Primary [...] Type Department Care Team Description 04/21/2024 Telephone [facility] 4th floor Cardiology Medicine [address] [place] [address] [phone] Assistant Operations Manager: Mary Arriaga Telephone Intake, Staff PAC Form/Letter/Record s Request 04/20/2024 9:00 AM EST Follow-Up [facility] [address] [place] [address] Assistant Operations Manager: Alonzo Baez MD FEIL positive (Primary Dx); Arthralgia, unspecified joint; Chest pain, unspecified type; Moderate persistent asthma, unspecified whether complicated 04/08/2024 Telephone [facility] [address] [place] [address]16[address] Assistant Operations Manager: Zaida Rust Telephone Intake, Staff PAC Sick/Symptoms 03/30/2024 Telephone [facility] [address] [place] [address] 49361 Assistant Operations Manager: Alonzo Baez MD PAC Patient Request Call Back; PAC Clinical Questions 03/27/2024 Telephone [facility] Rheumatology [address] [place] [address] 62507 Assistant Operations Manager: Alonzo Caputo MD 03/25/2024 Telephone [facility] Rheumatology [address] [place] [address] 68123 Assistant Operations Manager: Alonzo Caputo MD 03/24/2024 Documentation [facility] Rheumatology [address] [place] [address] 79542 Assistant Operations Manager: Alonzo Caputo MD 03/24/2024 Telephone [facility] Rheumatology [address] [place] [address] 45615 Assistant Operations Manager: Alonzo Caputo MD 03/23/2024 4:00 PM EST - 03/23/2024 11:59 PM EST Hospital Encounter [facility] XRay [address] [place] [address] Alonzo Persaud MD Chronic pain of both shoulders; Bilateral hip pain; Neck pain Discharge Disposition: Home or Self Care () 03/23/2024 3:20 PM EST Office Visit [facility] [address] [place] [address] 95491 Assistant Operations Manager: Alonzo Baez MD Chronic pain of both shoulders (Primary Dx); Bilateral hip pain; Neck pain 03/22/2024 Telephone [facility] [address] [place] [address] 89492 Assistant Operations Manager: Zaida Rust Telephone Intake, Staff PAC Provider Requested Call Back Dr Persaud 03/22/2024 Telephone [facility] [address] [place] [address] 27598 Assistant Operations Manager: Alysha Roman Telephone Intake, Staff 03/17/2024 Refill [facility] [address] [place] [address] Assistant Operations Manager: Alonzo Baez MD 03/05/2024 Refill [facility] [address] [place] [address] Assistant Operations Manager: Alonzo Baez MD 02/18/2024 Telephone [facility] Rheumatology [address] [place] [address] Assistant Operations Manager: Alonzo Caputo MD 02/16/2024 12:00 PM EST - 02/16/2024 11:59 PM EST Hospital Encounter [facility] CT Scan Department [address] [place] [address] Rib pain Discharge Disposition: Home or Self [...] Description 06/01/2024 9:00 AM EDT Office Visit [facility] 4th floor Cardiology Medicine [address] [place] [address] Assistant Operations Manager: Hemal Fritz MD [address] [place] [address] 08/02/2024 1:30 PM EDT Follow-Up [facility] Dermatology [facility] [address] [place] [address] 27462 Assistant Operations Manager: Morales Ramsey MD [address] [place] [address] 08/16/2024 2:00 PM EDT Office Visit [facility] [address] [place] [address] 78972 Assistant Operations Manager: Juan Ramon Vallejo, Dennis Whitlock MD [address] [place] [address] 9[address] Scheduled Procedures Name Priority Associated Diagnoses Date/Ti [...] Screening 03/02/2024 Depression Screening and Follow-Up 03/02/2024 [facility] ual Screening 03/02/2024 Mammogram 05/20/2024 05/20/2022, 05/01, 05/20/2022, Additional history exists Colon Cancer Screening 11/17/2024 FOBT / Fit Test 11/17/2024 11/18/2023 Basic Metabolic Panel 04/20/2025 04/20/2024 , 04/14/2024, 03/23/2024, Additional history exists RSV Vaccine (60+ years old a nd patients) (1 - 1-dose 75+ series) 07/20/2043 HIV Screening Completed 09/29/2013 Hepatitis C Screening Completed 06/04/2022 Procedures * Due to [place] state law, this organization might not be [...] AM EST FELI positive Arthralgia, unspecified joint [id number] STAT 04/20/19 25 9:23 AM EST FELI [...] Health Maintenance Results * Due to [place] state law, this organization might not be sharing negative HIV tests. * Drake Top, Urine (04/20/2024 9:23 AM EST) Only the most recent of2 resultswithin the time period is included. Extra Tube Hold for add-ons. 04/20/2024 2:05 PM EST [facility] Comment:Auto resulted. Urine Urine specimen collection, clean catch / Unknown Non-Blood Collection / Unknown 04/20/2024 9:23 AM EST 04/20/2024 9:39 AM EST Alonzo Persaud MD LAB URINE ORDERABLES Final Result Performing Organization Address City/[facility]/ZIP Co de Phone Number [facility] [address] [place] [address], [place] * (ABNORMAL) DNA AB(DS) Crithidia Titer (04/20/2024 9:23 AM EST) Only the most recent of2 resultswithin the time period is included. DNA Ab Crithidia Titer 1:40(H) <1:10 titer 04/23/2024 12:47 PM EST [facility] Blood Structure of peripheral vein / Unknown Venipuncture / Unknown 04/20/2024 9:23 AM EST 04/20/2024 9:38 AM EST Narrative [facility] [place] - 04/23/2024 12:47 PM EST [facility] Received Date: Alonzo Persaud MD LAB BLOOD ORDERABLES Final Result [address]rd Floor, [place] [address], [place] [phone] [facility] ([place]) [address] [place], [place] , [place] * (ABNORMAL) Urinalysis W/Reflex to Microscopic & Culture (04/20/2024 9:23 AM EST) Only the most recent of2 resultswithin the time period is included. Color, Urine Yellow Colorless, Light Yellow, Yellow, Dark Yellow 04/20/2024 9:59 AM EST [facility] Clarity, Urine Clear Clear 04/20/2024 9:59 AM EST [facility] Specific [place], Urine 1.024 1.005 - 1.030 04/20/2024 9:59 AM [facility] pH, Urine 5.0 4.6 - 8.0 04/20/2024 9:59 AM [facility] Protein, Urine 1+(A) Negative 04/20/2024 9:59 AM [facility] Glucose, Urine Negative Negative 04/20/2024 9:59 AM [facility] Ketones, Urine Negative Negative 04/20/2024 9:59 AM [facility] Bilirubin, Urine Negative Negative 04/20/2024 9:59 AM [facility] Blood, Urine Negative Negative 04/20/2024 9:59 AM [facility] Nitrite, Urine Negative Negative 04/20/2024 9:59 AM [facility] Urobilinogen, Urine Normal Normal 04/20/2024 9:59 AM [facility] Leukocyte Esterase, Urine Negative Negative 04/20/2024 9:59 AM [facility] WBC, Urine 1 0 - 2 /HPF 04/20/2024 9:59 AM [facility] RBC, Urine <1 0 - 2 /HPF 04/20/2024 9:59 AM [facility] Hyaline Casts, Urine 0 0 - 2 /LPF 04/20/2024 9:59 AM [facility] Squamous Epithelial Cells, Urine 2 /HPF 04/20/2024 9:59 AM [facility] Bacteria, Urine None None /HPF /HPF 04/20/2024 9:59 AM [facility] Mucus, Urine Rare /LPF 04/20/2024 9:59 AM [facility] Urine Urine specimen collection, clean catch / Unknown Non-Blood Collection / Unknown 04/20/2024 9:23 AM EST 04/20/2024 9:39 AM EST Alonzo Persaud MD LAB URINE ORDERABLES Final Result [facility] [address] [place] [address], [place] * (ABNORMAL) DNA Antibody (ds) Crithidia IFA w/Reflex (04/20/2024 9:23 AM EST) Only the most recent of2 resultswithin the time period is included. DNA Ab(ds) Crithidia, IFA Positive(A ) Negative 04/23/2024 12:26 PM EST [facility] Blood Structure of peripheral vein / Unknown Venipuncture / Unknown 04/20/2024 9:23 AM EST 04/20/2024 9:38 AM EST Narrative [facility] - 04/23/2024 12:26 PM EST [facility] Received Date:[id number] Alonzo Persaud MD LAB BLOOD ORDERABLES Final Result [facility] [address] [place] [address] 3rd Floor, [place] [address], [facility] ([place]) [address] [place], [place] , [place] * Procalcitonin (04/20/2024 9:23 AM EST) Procalcitonin <0.20 <0.20 ng/mL 04/22/2024 2:53 PM EST [id number] Comment: Verified by repeat analysis. [...] 9:23 AM EST 04/20/2024 9:38 AM EST [facility] - 04/22/2024 2:53 PM EST [facility] Received Date: us Alonzo Persaud MD LAB BLOOD ORDERABLES Final Result [facility] [address] Floor, [place] [address], [place] [phone] [place] [address], [place] [phone] * (ABNORMAL) CBC Auto Differential (04/20/2024 9:23 AM EST) Only the most recent of2 resultswithin the time period is included. WBC 12.4(H) 3.8 - 10.8 10*3/uL 04/20/2024 9:47 AM [facility] RBC 4.34 3.80 - 5.10 10*6/uL 04/20/2024 9:47 AM [facility] Hemoglobin 12.3 11.7 - 15.5 g/dL 04/20/2024 9:47 AM [facility] Hematocrit 39.1 35.0 - 45.0 % 04/20/2024 9:47 AM [facility] MCV 90.1 80.0 - 100.0 fL 04/20/2024 9:47 AM [facility] MCH 28.3 27.0 - 33.0 pg 04/20/2024 9:47 AM [facility] MCHC 31.5(L) 32.0 - 36.0 g/dL 04/20/2024 9:47 AM [facility] RDW 13.4 11.0 - 15.0 % 04/20/2024 9:47 AM [facility] Platelets 351 140 - 400 10*3/uL 04/20/2024 9:47 AM [facility] MPV 9.4 7.5 - 12.5 fL 04/20/2024 9:47 AM [facility] Neutrophil % 88.3 % 04/20/2024 9:47 AM [facility] Immature Grans % 1.1(H) 0.0 - 0.9 % 04/20/2024 9:47 AM [facility] Lymphocyte % 6.1 % 04/20/2024 9:47 AM [facility] Monocyte % 4.1 % 04/20/2024 9:47 AM [facility] Eosinophil % 0.2 % 04/20/2024 9:47 AM [facility] Basophil % 0.2 % 04/20/2024 9:47 AM [facility] Neutrophil # 10.92(H) 1.50 - 7.80 10*3/uL 04/20/2024 9:47 AM [facility] Immature Grans # 0.14(H) <=0.03 10*3/uL 04/20/2024 9:47 AM [facility] Lymphocyte # 0.80(L) 0.85 - 3.90 10*3/uL 04/20/2024 9:47 AM [facility] Monocyte # 0.50 0.20 - 0.95 10*3/uL 04/20/2024 9:47 AM EST [facility] Eosinophil # <0.03 0.02 - 0.50 10*3/uL 04/20/2024 9:47 AM EST [facility] Basophil # <0.03 0.00 - 0.20 10*3/uL 04/20/2024 9:47 AM EST [facility] nRBC % 0.0 /100 WBCs 04/20/2024 9:47 AM EST [facility] nRBC # <0.01 <0.01 10*3/uL 04/20/2024 9:47 AM EST [facility] Blood Structure of peripheral vein / Unknown Venipuncture / Unknown 04/20/2024 9:23 AM EST 04/20/2024 9:38 AM EST us Alonzo Persaud MD LAB BLOOD ORDERABLES Final Result [facility] [address] [place] [address], * Microalbumin, Random Urine with Creatinine (04/20/2024 9:23 AM EST) Only the most recent of2 resultswithin the time period is included. Microalbumin, Urine <2.0 mg/dL 04/20/2024 12:17 PM [facility] Creatinine, Urine 186 15 - 278 mg/dL 04/20/2024 12:17 PM [facility] Microalb/Creat Ratio, Random Urine 04/20/2024 12:17 PM EST [facility] Comment: < 1.0 mcg/mgCr Microalbumin Reference Range: Normal ? <30 mcg/mg Creatinine Microalbuminuria ? 30-300 mcg/mg Creatinine Clinical Albuminuria >300 mcg/mg Creatinine Reference: ADA Guideline. Diabetes Care. 2004;27 (suppl 1) Urine Voided urine specimen / Unknown Non-Blood Collection / Unknown 04/20/2024 9:23 AM EST 04/20/2024 9:39 AM EST Alonzo Persaud MD LAB URINE ORDERABLES Final Result Performing Organization Address [facility]/ZIP Co de Phone Number [facility] [address] [place] [address], [facility] [address] [place] [address], * (ABNORMAL) DNA Antibody, Double-Stranded (04/20/2024 9:23 AM EST) Only the most recent of2 resultswithin the time period is included. DNA (Ds) Antibody 7(H) IU/mL 025 9:50 PM EST [facility] Comment: ? IU/mL ? Interpretation ? < or = 4 ?Negative ? 5-9 ? Indeterminate ? > or = 10 ?? Positive Blood Structure of peripheral vein / Unknown Venipuncture / Unknown 04/20/2024 9:23 AM EST 04/20/2024 9:38 AM EST Narrative [facility] - 04/21/2024 9:50 PM EST [facility] Received Date:[id number] Alonzo Persaud MD LAB BLOOD ORDERABLES Final Result Performing Organization Address City/[facility]/ZIP Co de Phone Number [facility] [address] [facility] 3rd Floor, [place] [address], [facility] [address], [place] [address], [place] [phone] * Sedimentation Rate (04/20/2024 9:23 AM EST) Only the most recent of2 resultswithin the time period is included. Pathologist [facility] Sed Rate 23 <30 mm/Hr mm/Hr 04/20/2024 10:04 AM EST [facility] Blood Structure of peripheral vein / Unknown Venipuncture / Unknown 04/20/2024 9:23 AM EST 04/20/2024 9:38 AM EST Alonzo Persaud MD LAB BLOOD ORDERABLES Final Result Performing Organization Address City/[facility]/ZIP Co de Phone Number [facility] [address] [place] [address], * Complement C3 (04/20/2024 9:23 AM EST) Only the most recent of2 resultswithin the time period is included. Pathologist [facility] Complement Component C3C 101 83 - 193 mg/dL 04/21/2024 4:22 AM EST [facility] Blood Structure of peripheral vein / Unknown Venipuncture / Unknown 04/20/2024 9:23 AM EST 04/20/2024 9:38 AM EST N[facility]ative [facility] - 04/21/2024 4:22 AM EST [facility] Received Date:[id number] Alonzo Persaud MD LAB BLOOD ORDERABLES Final Result Performing Organization Address City/[facility]/ZIP Co de Phone Number [facility] [place] [address] [facility] [address]rd Floor, [place] [address], [place] [phone] [address] [facility] [address] [facility] 3rd Floor, [place] [address], [place] [phone] * Complement C4 (04/20/2024 9:23 AM EST) Only the most recent of2 resultswithin the time period is included. Pathologist [facility] Complement Component C4C 21 15 - 57 mg/dL 04/21/2024 4:[address] [facility] Blood Structure of peripheral vein / Unknown Venipuncture / Unknown 04/20/2024 9:23 AM EST 04/20/2024 9:38 AM EST Narrative [facility] [place] - 04/21/2024 4:22 AM EST [facility] Received Date: Alonzo Persaud MD LAB BLOOD ORDERABLES Final Result Performing Organization Address City/[facility]/ZIP Co de Phone Number [facility] [place] [address] [facility] [address]rd Floor, [place] [address], [place] [phone], [place] [address], [place] [phone] * (ABNORMAL) C-Reactive Protein (04/20/2024 9:23 AM EST) Only the most recent of2 resultswithin the time period is included. Pathologist [facility] C Reactive Protein 10.5(H) <=9.9 mg/L 04/20/2024 10:34 AM EST [facility] Blood Structure of peripheral vein / Unknown Venipuncture / Unknown 04/20/2024 9:23 AM EST 04/20/2024 9:38 AM EST Alonzo Persaud MD LAB BLOOD ORDERABLES Final Result [facility] [address] [place] [address], * (ABNORMAL) Creatine Kinase (04/20/2024 9:23 AM EST) Only the most recent of2 resultswithin the time period is included. CK 35(L) 38 - 206 U/L 04/20/2024 10:34 AM EST [facility] Blood Structure of peripheral vein / Unknown Venipuncture / Unknown 04/20/2024 9:23 AM EST 04/20/2024 9:38 AM EST us Alonzo Persaud MD LAB BLOOD ORDERABLES Final Result [facility] [address] [place] [address], [place] * (ABNORMAL) Comprehensive Metabolic Panel (04/20/2024 9:23 AM EST) Only the most recent of2 resultswithin the time period is included. NA 139 135 - 145 mmol/L 04/20/2024 10:34 AM EST [facility] K 3.8 3.5 - 5.3 mmol/L 04/20/2024 10:34 AM [facility] Cl 105 98 - 107 mmol/L 04/20/2024 10:34 AM [facility] CO2 24 22 - 32 mmol/L 04/20/2024 10:34 AM [facility] Anion Gap 10 5 - 15 04/20/2024 10:34 AM EST [facility] Glucose 177(H) 65 - 99 mg/dL 04/20/2024 10:34 AM EST [facility] Creatinine 0.73 0.50 - 1.20 mg/dL 04/20/2024 10:34 AM EST [facility] Calcium 8.4(L) 8.6 - 10.5 mg/dL 04/20/2024 10:34 AM EST [facility] Total Protein 6.9 6.0 - 8.0 g/dL 04/20/2024 10:34 AM EST [facility] Albumin 3.4(L) 3.5 - 5.2 g/dL 04/20/2024 10:34 AM [facility] Bilirubin, Total 0.3 0.2 - 1.2 mg/dL 04/20/2024 10:34 AM [facility] Alkaline Phosphatase 50 35 - 129 U/L 04/20/2024 10:34 AM EST [facility] AST 14 10 - 40 U/L 04/20/2024 10:34 AM EST [facility] ALT 11 10 - 40 U/L 04/20/2024 10:34 AM EST [facility] BUN 24(H) 7 - 23 mg/dL 04/20/2024 10:34 AM EST [facility] eGFR >90 >=60 mL/min/1. 73m2 04/20/2024 10:34 AM EST [facility] Comment:The estimated glomer ular [...] - 4.2 g/dL 04/20/2024 10:34 AM EST [facility] A/G Ratio 1.0(L) 1.5 - 3.0 04/20/2024 10:34 AM EST [facility] Blood Structure of peripheral vein / Unknown Venipuncture / Unknown 04/20/2024 9:23 AM EST 04/20/2024 9:38 AM EST us Alonzo Persaud MD LAB BLOOD ORDERABLES Final Result [facility] [address] [place] [address], * Interpretation (03/23/2024 4:48 PM EST) FELI Specific Antibody Interpretation See Comments 03/25/2024 12:23 PM EST [facility] Comment: The presence of these two antibodies [...] PM EST 03/23/2024 5:31 PM EST Narrative [facility] - 03/25/2024 12:23 PM EST [facility] Received Date: Alonzo Persaud MD LAB BLOOD ORDERABLES Final Result [facility] [address] [facility] 3rd Floor, [place] [address], [facility] [address] [facility] 3rd Floor, [place] [address], * (ABNORMAL) Stage 1 (03/23/2024 4:48 PM EST) [facility] DNA (Ds) Antibody 11(H) IU/mL 025 12:23 PM EST [facility] Comment: ? IU/mL ? Interpretation ? < or = 4 ?Negative ? 5-9 ? Indeterminate ? > or = 10 ?? Positive Sm Antibody <1.0 NEG <1.0 NEG AI 03/25/2024 12:23 PM EST [facility] SM/INSURANCE ACCOUNT ASSISTANT Antibody <1.0 NEG <1.0 NEG AI 03/25/2024 12:[address] [facility] INSURANCE ACCOUNT ASSISTANT Antibody <1.0 NEG <1.0 NEG 03/25/2024 12:23 PM EST n[address] [facility] Chromatin Antibody 3.0 POS(A) <1.0 NEG 03/25/2024 12:[address] PM [address] [facility] Comment: ANTIBODY PREVALENCE IN TIER 1 ? [...] Sjogren's syndrome and 8% polymyositis. ?? Ribonucleoprotein (INSURANCE ACCOUNT ASSISTANT) antibodies are to INSURANCE ACCOUNT ASSISTANT A and/or INSURANCE ACCOUNT ASSISTANT 68kD proteins; antibodies to one or both are present in >80% MCTD, 22% to 48% SLE, 14% systemic sclerosis, 12% Sjogren's and 8% polymyositis. ?? Sm/INSURANCE ACCOUNT ASSISTANT antibodies are directed to epitopes formed in a complex of Sm and INSURANCE ACCOUNT ASSISTANT; antibodies to the Sm/INSURANCE ACCOUNT ASSISTANT complex are present in 54% to 94% MCTD, 30% SLE, 4% systemic sclerosis, and 9% Sjogren's and polymyositis. ?? Sm antibody is present in 20% to 30% SLE, 8% MCTD, 10% polymyositis, 0% systemic sclerosis and 4% Sjogren's syndrome. ?? Double stranded DNA, Chromatin, Ribonucleoprotein, Sm/INSURANCE ACCOUNT ASSISTANT complex and Sm antibodies are present in <2% of normal blood donors. ?? The [facility] does not rule out autoimmune disease characterized by other autoantibody specificities such as rheumatoid arthritis, autoimmune hepatitis, primary biliary cirrhosis, autoimmune thyroiditis, [place]'s disease, pernicious anemia, autoimmune neuropathies, vasculitis, celiac disease and bullous disease. Please contact your local [facility] laboratory if you are interested in additional testing. Blood Structure of peripheral vein / Unknown Venipuncture / Unknown 03/23/2024 4:48 PM EST 03/23/2024 5:31 PM EST Narrative [facility] [place] - 03/25/2024 12:23 PM EST [facility] Received Date: Alonzo Persaud MD LAB BLOOD ORDERABLES Final Result Performing Organization Address City/[facility]/ZIP Co de Phone Number [facility] [place] [address], [place] [address], [place] [phone] [facility] [address], [place] [address], [place] [phone] * (ABNORMAL) FELI, Titer and Pattern (03/23/2024 4:48 PM EST) FELI Titer 1 1:1280(H) titer 03/30/2024 4:22 PM EST [facility] Comment: ?Reference Range ?<1:40 ?Negative ?1:40-1:80 ?Low Antibody Level ?>1:80 ?Elevated Antibody Level FELI Pattern 1 Nuclear, Homogeneo (A) 03/30/2024 4:22 PM EST [facility] Comment: Homogeneous pattern is associated with systemic lupus erythematosus (SLE), drug-induced lupus and juvenile idiopathic arthritis. AC-1: Homogeneous International Consensus on FELI Patterns (https://doi.org/10.1515/txey-2188-1409) Blood Structure of peripheral vein / Unknown Venipuncture / Unknown 03/23/2024 4:48 PM EST 03/23/2024 5:31 PM EST [facility] 03/30/2024 4:22 PM EST [facility] Received Date:[id number] us Alonzo Persaud MD LAB BLOOD ORDERABLES Final Result Performing Organization Address City/[facility]/ZIP Co de Phone Number [facility] [place] [address], [place] [address], [place] [phone] [address] [facility] [facility] [address], [place] [address], [place] [phone] * (ABNORMAL) [place] & Lambda, Free w/Ratio (03/23/2024 4:48 PM EST) [place] Light Chain, Free, Serum 99.6(H) 3.3 - 19.4 mg/L 03/24/2024 3:56 PM EST nWay [facility] Lambda Light Chain, Free, Serum 60.2(H) 5.7 - 26.3 mg/L 03/24/2024 3:56 PM EST nWay [facility] Raynham/Lambda Light Chains Free With Ratio 1.65 0.26 - 1.65 03/24/2024 3:56 PM EST nWay [facility] Comment: Free kappa/lambda ratio in serum of [...] PM EST 03/23/2024 5:31 PM EST Narrative [facility] - 03/24/2024 3:56 PM EST [facility] Received Date: us Alonzo Persaud MD LAB BLOOD ORDERABLES Final Result [facility] 200 [facility] 3rd Floor, [place] [address], [place] [phone] nWay [facility] 200 [facility] 3rd Floor, [place] [address], [place] [phone] * (ABNORMAL) Protein Electrophoresis w/Reflex to Immunofixation, Serum (03/23/2024 4:48 PM EST) Pathologist [facility] [place] Protein, Total 6.5 6.1 - 8.1 g/dL 03/25/2024 7:04 AM EST nWay [facility] Albumin 3.0(L) 3.8 - 4.8 g/dL 03/25/2024 7:04 AM Collplant [facility] Alpha 1 Globulin 0.5(H) 0.2 - 0.3 g/dL 03/25/2024 7:04 AM Collplant [facility] Alpha 2 Globulin 0.9 0.5 - 0.9 g/dL 03/25/2024 7:04 AM Collplant [facility] Beta 1 Globulin 0.4 0.4 - 0.6 g/dL 03/25/2024 7:04 AM Collplant [facility] Beta 2 Globulin 0.4 0.2 - 0.5 g/dL 03/25/2024 7:04 AM Collplant [facility] Gamma Globulin 1.2 0.8 - 1.7 g/dL 03/25/2024 7:04 AM Collplant [facility] Interpretation See Comments 03/25/2024 7:04 AM Collplant [facility] Comment: Pattern consistent with an acute phase reaction Blood Structure of peripheral vein / Unknown Venipuncture / Unknown 03/23/2024 4:48 PM EST 03/23/2024 5:31 PM EST [facility] - 03/25/2024 7:04 AM EST [employer] Received Date: Alonzo Persaud MD LAB BLOOD ORDERABLES Final Result [facility] 200 [facility] 3rd Floor, [place] [address], [place] [phone] nWay [facility] 200 [facility] 3rd Floor, [place] [address], [place] [phone] * Cyclic Citrullinated Peptide (CCP) Antibody, IgG (03/23/2024 4:48 PM EST) [facility] Cyclic Citrullinated Peptide (CCP) Ab (IgG) <16 UNITS 03/25/2024 2:15 PM EST [facility] Comment: Reference Range Negative: ?<20 Weak Positive: ? 20-39 Moderate Positive: ?? 40-59 Strong Positive: ? >59 Blood Structure of peripheral vein / Unknown Venipuncture / Unknown 03/23/2024 4:48 PM EST 03/23/2024 5:31 PM EST Narrative [facility] - 03/25/2024 2:15 PM EST [facility] Received Date: Alonzo Persaud MD LAB BLOOD ORDERABLES Final Result [facility] [place] 200 [facility] 3rd Floor, [place] [address], [facility] [address], [place] [address], * Lyme Antibody Screen w/Reflex to Blot (03/23/2024 4:48 PM EST) Lyme Ab Screen <0.90 index 03/24/2024 11:29 AM EST [facility] Comment: ? Index ?Interpretation ? ----- ? [...] PM EST 03/23/2024 5:31 PM EST Narrative [facility] 03/24/2024 11:29 AM EST [facility] Received Date: Alonzo Persaud MD LAB BLOOD ORDERABLES Final Result [facility] 200 [facility] 3rd Floor, [place] [address], [facility] 200 [facility] 3rd Floor, [place] [address], * (ABNORMAL) FELI Screen, IFA, w/Reflex to Titer & Pattern (03/23/2024 4:48 PM EST) Pathologist [facility] [place] FELI Screen, IFA POSITIVE (A) NEGATIVE 03/30/2024 4:21 PM EST [facility] Comment: FELI IFA is a first line screen for detecting the presence of up to approximately 150 autoantibodies in various autoimmune diseases. A positive FELI IFA result is suggestive of autoimmune disease and reflexes to titer and pattern. Further laboratory testing may be considered if clinically indicated. For additional information, please refer to http://education.[employer]/faq/DGK319 (This link is being provided for informational/ educational purposes only.) ?? Blood Structure of peripheral vein / Unknown Venipuncture / Unknown 03/23/2024 4:48 PM EST 03/23/2024 5:31 PM EST Narrative [facility] - 03/30/2024 4:21 PM EST [facility] Received Date: us Alonzo Persaud MD LAB BLOOD ORDERABLES Final Result Performing Organization Address City/[facility]/ZIP Co de Phone Number [facility] [address], [place] [address], [place] [phone] nWay [facility] [address], [place] [address], [place] [phone] * Urine Culture, Routine (03/23/2024 4:48 PM EST) [facility] Culture Mixed genital zachary isolated. These superficial bacteria are not indicative of a urinary tract infection. No further organism identification is warranted on this specimen. 03/24/2024 5:21 PM EST [facility] Urine Urine specimen collection, clean catch / Unknown Non-Blood Collection / Unknown 03/23/2024 4:48 PM EST 03/23/2024 6:19 PM EST Narrative [facility] - 03/24/2024 5:21 PM EST [facility] Received Date: MICRO NUMBER: [id number] SPECIMEN QUALITY: Adequate SOURCE: URINE CLEAN CATCH STATUS: FINAL If clinically indicated, recollect clean-catch, mid-stream urine and transfer immediately to Urine Culture Transport Tube. us Alonzo Persaud MD LAB MICROBIOLOGY - GENERAL ORDERABLES Final Result Performing Organization Address City/[facility]/ZIP Co de Phone Number [facility] [address], [place] [address], [place] [phone] nWay [facility] [address], [place] [address], [place] [phone] * (ABNORMAL) FELI Specific Antibody w/Reflex to [place] (03/23/2024 4:48 PM EST) [facility] FELI Screen, Immunoassay POSITIVE (A) NEGATIVE 03/25/2024 12:23 PM EST [facility] Comment: A positive FELI Multiplex indicates the presence of detectable antibodies to one or more of the component analytes consisting of double stranded DNA (dsDNA), chromatin, ribonucleoprotein (INSURANCE ACCOUNT ASSISTANT), Mojica/INSURANCE ACCOUNT ASSISTANT (Sm/INSURANCE ACCOUNT ASSISTANT), Mojica (Sm), SS-A, SS-B, Bozena-1, centromere B, Scl-70 and ribosomal P. Further laboratory testing may be considered if clinically indicated. For additional information, please refer to http://education.Bar[employer]/faq/VPQ523 (This link is being provided for informational/ educational purposes only.) ?? Blood Structure of peripheral vein / Unknown Venipuncture / Unknown 03/23/2024 4:48 PM EST 03/23/2024 5:31 PM EST Narrative [facility] [place] - 03/25/2024 12:23 PM EST [facility] Received Date: Alonzo Persaud MD LAB BLOOD ORDERABLES Final Result Performing Organization Address City/[facility]/ZIP Co de Phone Number [facility] 200 [facility] [address] [facility], [place] [address], [place] [phone] nWay [facility] [address], [place] [address], [place] [phone] * (ABNORMAL) Lactate Dehydrogenase (03/23/2024 4:48 PM EST) LDH 285(H) 135 - 225 U/L 03/23/2024 6:41 PM EST [facility] Blood Structure of peripheral vein / Unknown Venipuncture / Unknown 03/23/2024 4:48 PM EST 03/23/2024 5:31 PM EST Alonzo Persaud MD LAB BLOOD ORDERABLES Final Result [facility] [address] [place] [address], [place] * Gamma Glutamyl Transferase (03/23/2024 4:48 PM EST) GGT 35 5 - 61 U/L 03/23/2024 6:09 PM EST [facility] Blood Structure of peripheral vein / Unknown Venipuncture / Unknown 03/23/2024 4:48 PM EST 03/23/2024 5:31 PM EST us Alonzo Persaud MD LAB BLOOD ORDERABLES Final Result [facility] [address] [place] [address], [place] * (ABNORMAL) IgA (03/23/2024 4:48 PM EST) Immunoglobulin A 319(H) 47 - 310 mg/dL 03/24/2024 8:01 AM EST nWay [facility] Blood Structure of peripheral vein / Unknown Venipuncture / Unknown 03/23/2024 4:48 PM EST 03/23/2024 5:31 PM EST Narrative [facility] [place] - 03/24/2024 8:01 AM EST [facility] Received Date: Alonzo Persaud MD LAB BLOOD ORDERABLES Final Result Performing Organization Address City/[facility]/ZIP Co de Phone Number [facility] [place] 200 [facility] 3rd Floor, [place] [address], [place] [phone] [facility] 200 [facility] 3rd Floor, [place] [address], [place] [phone] * IgM (03/23/2024 4:48 PM EST) Immunoglobulin M 80 50 - 300 mg/dL 03/24/2024 8:01 AM EST [facility] Blood Structure of peripheral vein / Unknown Venipuncture / Unknown 03/23/2024 4:48 PM EST 03/23/2024 5:31 PM EST Narrative [facility] [place] - 03/24/2024 8:01 AM EST [facility] Received Date: us Alonzo Persaud MD LAB BLOOD ORDERABLES Final Result Performing Organization Address City/[facility]/ZIP Co de Phone Number [facility] [place] 200 [facility] 3rd Floor, [place] [address], [place] [phone] [facility] 200 [facility] 3rd Floor, [place] [address], [place] [phone] * IgG (03/23/2024 4:48 PM EST) IgG, Serum 1448 600 - 1640 mg/dL 03/24/2024 8:01 AM EST nWay [facility] Blood Structure of peripheral vein / Unknown Venipuncture / Unknown 03/23/2024 4:48 PM EST 03/23/2024 5:31 PM EST Narrative [facility] [place] - 03/24/2024 8:01 AM EST [facility] Received Date: Alonzo Persaud MD LAB BLOOD ORDERABLES Final Result [facility] 200 [facility] [address]rd Floor, [place] [address], [place] [phone] [facility] 200 [facility] 3rd Floor, [place] [address], [place] [phone] * Ferritin (03/23/2024 4:48 PM EST) Ferritin 279.0 11.0 - 306.0 ng/mL 03/23/2024 6:09 PM EST [facility] Blood Structure of peripheral vein / Unknown Venipuncture / Unknown 03/23/2024 4:48 PM EST 03/23/2024 5:31 PM EST us Alonzo Persaud MD LAB BLOOD ORDERABLES Final Result [facility] [address] [place] [address], [place] * XR Hips Bilateral 5+ vw [...] obtain the completed interpretation. ? Workstation ID: [id number] Narrative 03/23/2024 6:11 PM EST COMPARISON: None. ?? Resulting Agency Comment [id number] Procedure Note Augusto Buck MD - 03/23/2024 [...] possible to obtain thecompleted interpretation. Workstation ID: [id number] us Alonzo Persaud MD IMG XR PROCEDURES [...] obtain the completed interpretation. ? Workstation ID: [id number] Narrative 03/23/2024 6:11 PM EST COMPARISON: None. ?? Resulting Agency Comment [id number] Procedure Note Augusto Buck MD - 03/23/2024 [...] possible to obtain thecompleted interpretation. Workstation ID: [id number] us Alonzo Persaud MD IMG XR PROCEDURES [...] obtain the completed interpretation. ? Workstation ID: [id number] Narrative 03/23/2024 6:11 PM EST COMPARISON: None. ?? Resulting Agency Comment [id number] Procedure Note Augusto Buck MD - 03/23/2024 [...] possible to obtain thecompleted interpretation. Workstation ID: [id number] us Alonzo Persaud MD IMG XR PROCEDURES [...] obtain the completed interpretation. ? Workstation ID: [id number] Narrative 03/23/2024 6:11 PM EST COMPARISON: None. ?? Resulting Agency Comment [id number] Procedure Note Augusto Buck MD - 03/23/2024 [...] possible to obtain thecompleted interpretation. Workstation ID: [id number] us Alonzo Persaud MD IMG XR PROCEDURES [...] obtain the completed interpretation. ? Workstation ID: [id number] Up-to-date CT equipment and radiation dose reduction [...] in the spine. ?? Resulting Agency Comment [id number] Procedure Note Wendi Hollingsworth MD - 02/18/2024 [...] possible to obtain thecompleted interpretation. Workstation ID: [id number] Up-to-date CT equipment and radiation dose reduction techniques wereemployed. CTDIvol: 20.1 mGy. DLP: 572 mGy-cm. us Alonzo Persaud MD [facility] CT PROCEDURES Final Re sult * Hepatitis C Antibody w/Reflex to HCV RNA, Quantitative PCR (06/04/2022 5:43 PM EDT) Hepatitis C Antibody NON-REACT BETO NON-REACT BETO 06/05/2022 3:44 AM EDT [facility] Signal To Cut-Off 0.02 <1.00 06/05/2022 3:44 AM EDT [facility] Comment: HCV antibody was non-reactive. There is no laboratory evidence of HCV infection. In most cases, no further action is required. However, if recent HCV exposure is suspected, a test for HCV RNA (test code 05524) is suggested. For additional information please refer to http://education.Zoona/faq/HFL31b5 (This link is being provided for informational/ educational purposes only.) Blood Structure of peripheral vein / Unknown Venipuncture / Unknown 06/04/2022 5:43 PM EDT 06/04/2022 6:08 PM EDT Narrative [facility] - 06/05/2022 3:44 AM EDT [facility] Received Date: us Alonzo Persaud MD LAB BLOOD ORDERABLES Final Result [facility] 200 [facility] 3rd Floor, [place] [address], [place] [phone] nWay [facility] 200 [facility] 3rd Floor, [place] [address], [place] [phone] from Last 3 Months or Most Recently Relevant to Health Maintenance Insurance [facility] Care Teams Keg Raiser Relationship Specialty Start Date End Date Cristian Chacon MD [address] [place] [address] PCP - General 06/04/22
--- OUTSIDE RECORDS SUMMARY | 2024-05-03 13:54 | XMS_ITS | Clinical Summary ---
Author Organization [employer] Address [address] [place] [address] Care Team Providers Care Horse Rider Name Role Phone Cristian Chacon MD Primary [...] Plan (08/10/2023 4:03 PM EDT): Referral to [facility] for further evaluation of symptoms. Ordering Stress [...] allergic will prescribe ketotifen, follow up with fruit receiver, she has scheduled appointment already Pelvic pain 03/23/2023 Chronic pelvic pain in female 03/17/2023 Assessment & Plan (01/12/2024 6:12 PM EST): Patient wants to be followed at [place], will place referral Upper back pain 01/14/2023 [...] lateral foot pain, she has seen various manager clinical applications, she would like another opinion, she will [...] PM EST): Will place refferal to a industrial controls technician Seborrheic dermatitis 04/10/2022 Assessment & Plan (06/29/2022 [...] to perform daily activities, she currently has [employer] services but the hours provided are not [...] LESION, MOST LIKELY HEMORRHAGIC OVARIAN CYST. 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 2.9 X 3.8 X 3 CM LEFT ADNEXAL CYSTIC LESION, MOST LIKELY HEMORRHAGIC OVARIAN CYST. 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 =17. Allergic rhinitis due to allergen 2008 Gastroesophageal reflux disease without esophagi tis 07/13/2007 Anxiety and depression 05/13/2007 Overview (03/07/2022): Overview: F/U [facility] (DR. NANCE). F/U [facility] (DR. NANCE). Hypothyroidism 05/13/2007 Overview (05/29/2022): [...] Insomnia 05/13/2007 Overview (05/29/2022): Overview: F/U AT [facility] (DR. NANCE). F/U AT [facility] (DR. NANCE). Mild persistent asthma 05/13/2007 Encounters Date Type Department Care Team Description 05/03/2024 Orders Only GENERIC EXTERNAL DATA DEPARTMENT Provider, Generic External Data 05/03/2024 Patient Outreach [facility] [address] [place] [address] Cristian Chacon MD Care Coordination (Outreach) 05/02/2024 Orders Only [facility] External Provider, [facility] 04/27/2024 Patient Outreach [facility] [address] [place] [address] Cristian Chacon MD Care Coordination (Outreach) 04/26/2024 11:00 AM EST Office Visit [facility] [address] [place] [address] Aida Rae MD Moderate persistent asthma without complication (Primary Dx) 04/26/2024 Travel 04/26/2024 Patient Outreach [facility] [address] [place] [address] Cristian Chacon MD Care Coordination (Outreach) 04/20/2024 Telephone [facility] [address] [place] [address] Cristian Chacon MD Durable Medical Equipment 04/14/2024 Telephone [facility] [address] [place] [address] Cristian Chacon MD ER Follow-up 04/13/2024 10:45 AM EST Office Visit [facility] [address] [place] [address] Cristian Chacon MD Other chest pain (Primary Dx) 04/13/2024 Travel 04/04/2024 3:30 PM EST Office Visit [facility] [address] [place] [address] Cristian Chacon MD Dietary counseling; Exercise counseling; Systemic lupus erythematosus, unspecified SLE type, unspecified organ involvement status ([facility]); Type 2 diabetes mellitus without complication, without long-term current use of insulin ([facility]/HCC); Asthma, unspecified asthma severity, unspecified whether complicated, unspecified whether persistent 04/04/2024 Travel 03/25/2024 3:20 PM EST Office Visit [facility] [address] [place] [phone] Sherry Kebede MD Abnormal CT scan (Primary Dx); Furuncle of right axilla; Vaginal yeast infection 03/25/2024 Telephone [facility] [address] [place] [phone] Radha Bagley, logistics coordinator/recent [facility] ED 03/24/24 03/25/2024 Telephone [facility] [address] [place] [address] Cristian Chacon MD Nurse Triage 03/23/2024 Telephone [facility] [address] [place] [phone] Cristian Chacon MD ER Follow-up; Nurse Triage 03/22/2024 Orders Only [facility] [address] [place] [address] Roderick Weiner MD 03/15/2024 Telephone [facility] [address] [place] [address] Cristian Chacon MD Pre-op Exam 03/10/2024 Telephone [facility] [address] [place] [address] Cristian Chacon MD No Show 03/09/2024 Telephone [facility] [address] [place] [address] Cristian Chacon MD pre op 02/27/2024 Refill [facility] [address] [place] [address] Cristian Chacon MD 02/19/2024 Orders Only [facility] [address] [place] [address] Roderick Weiner MD 02/11/2024 Telephone [facility] [address] [place] [address] Saskia Rosas MD Results 02/09/2024 2:45 PM EST Office Visit [facility] [address] [place] [address] Cristian Chacon MD Multiple joint pain (Primary Dx) 02/09/2024 Orders Only GENERIC EXTERNAL DATA DEPARTMENT Provider, Generic External Data 02/09/2024 Travel 02/08/2024 Patient Outreach [facility] [address] [place] [address] Cristian Chacon MD Care Coordination (CHW outreach for SDOH PT-1 and food needs-referral completed /) 02/08/2024 Telephone [facility] [address] [place] [address] Cristian Chacon MD ER Follow-up 02/08/2024 Telephone [facility] [address] [place] [address] Cristian Chacon MD Pt1 from Last 3 [...] Description 05/17/2024 1:30 PM EDT Office Visit [facility] [address] [place] [address] Cristian Chacon MD [address] [place] [phone] Health Maintenance Due Date Last Done Comments [...] 12/22/2023, 12/22/2023 Depression Screening 12/21/2024 12/22/2023, 12/22/19 24 Tobacco Screening 03/25/2025 03/25/2024 Diabetes: Urine Protein [...] Procedure Name Priority Date/Time Associated Diagnosis Comments HIGH SENSITIVITY TROPONIN I Routine 05/03/2024 11:04 AM EST B TYPE NATRIURETIC PEPTIDE (BNP) Routine 05/03/2024 11:04 AM EST LIPASE Routine 05/03/2024 11:04 AM EST C-REACTIVE PROTEIN Routine 05/03/2024 11 :04 AM EST CREATINE KINASE, TOTAL Routine 11:04 AM EST MAGNESIUM Routine 05/03/2024 11:04 AM EST BASIC METABOLIC PANEL Routine 05/03/2024 11:04 AM EST HEPATIC FUNCTION PANEL Routine 11:04 AM EST CBC WITH AUTO DIFFERENTIAL Routine 05/03/2024 11:04 AM EST SARS COV2/INFLUENZA A/B AND RSV RNA QL NAAT Routine 05/03/2024 11:04 AM EST XR CHEST 1 VIEW Routine 05/03/2024 10:40 AM EST US PELVIS TRANSVAGINAL Routine 9:16 AM EST ECG 12-LEAD Routine 04/13/2024 2:18 PM EST Other chest pain POCT GLUCOSE Routine 04/04/2024 4:00 PM EST Type 2 diabetes mellitus without complication, without long-term current use of insulin ([facility]) CT CHEST ANGIO W AND WO IV [...] Recently Relevant to Health Maintenance Results * High Sensitivity Troponin I (05/03/2024 11:04 AM EST) [facility] TROPONIN I HIGH SENSITIVITY <2.7 <3.5 - 17.0 ng/L [facility] Comment:The [facility] high sens itivity Troponin-I results should beused in conjunction with other diagnostic information suchas ECG, clinical observations and information, and patientsymptoms to aid in the diagnosis of [place]. 05/03/2024 11:0 4 AM EST 05/03/2024 11:12 AM EST us Generic External Data Provider LAB BLOOD ORDERAB LES Final Result [facility] [address] [place] [phone] * SARS-CoV-2 RNA, Influenza A/B, and RSV RNA, Ql NAAT (05/03/2024 11:04 AM EST) [facility] Influenza A PCR NEGATIVE Negative [facility] Influenza B PCR NEGATIVE Negative [facility] Resp Syncy Virus RNA Qual PCR NEGATIVE Negative [facility] SARS COV2 PCR NEGATIVE Negative [facility] Comment:All test results mus t be correlated with clinical findings.Negative results do not preclude SARS-CoV2, influenza Avirus, influenza B virus and/or RSV infectionand should not be used as the sole basis for treatment orother patient management decisions. Negative results must becombined with clinical observations, patient history, andepidemiological information.This test has not been evaluated for monitoring treatment ofinfection.This test has been authorized by the FDA under an EmergencyUse Authorization (EUA) for use by authorized laboratories.Testing performed on the Prieto Battery GeneXpert utilizingreal-time RT-PCR.All SARS CoV2 and positive influenza A/B results arereported to [facility]. 05/03/2024 11:0 4 AM EST 05/03/2024 11:12 AM EST us Generic External Data Provider LAB MICROBIOLOGY - GENERAL ORDERABLES Final Result [facility] [address] [place] [phone] * (ABNORMAL) CBC auto differential (05/03/2024 11:04 AM EST) Pathologist [facility] White Blood Count 8.1 4.8 - 10.8 X10*3/uL [facility] Red Blood Count 4.07(L) 4.20 - 5.50 X10*6/uL [facility] Hemoglobin 11.9(L) 12.0 - 16.0 g/dl [facility] Hematocrit 35.8(L) 37.0 - 47.0 % [facility] Mean Corpuscular Volume 88.0 80.0 - 98.0 fL [facility] Mean Corpuscular Hemoglobin 29.2 27.0 - 33.0 pg [facility] Mean Corpuscular HGB Conc 33.2 31.0 - 35.0 g/dl [facility] Red Cell Distribution Width 14.4 11.0 - 16.0 % [facility] Platelet Count 339 160 - 400 X10*3/uL [facility] Mean Platelet Volume 9.3(L) 9.4 - 12.3 fL [facility] Neutrophils Percent Auto 83.7(H) 45 - 73 % [facility] Imm Gran Pct Auto 0.6(H) 0.0 - 0.4 % [facility] Lymphocytes Percent Auto 11.5(L) 20 - 40 % [facility] Monocytes Percent Auto 3.6 2 - 11 % [facility] Eosinophils Percent Auto 0.5 0 - 4 % [facility] Basophils Percent Auto 0.1 0 - 2 % [facility] NRBC Pct Auto 0.0 0.0 - 0.2 /100WBC [facility] Neutrophils Absolute Auto 6.7 2.0 - 8.3 x10*3/uL [facility] Imm Gran Abs Auto 0.05(H) 0.00 - 0.03 X10*3/uL [facility] Lymphocytes Absolute Auto 0.9(L) 1.2 - 4.9 X10*3/uL [facility] Monocytes Absolute Auto 0.3 0.1 - 1.2 X10*3/uL [facility] Eosinophils Absolute Auto 0.0 0.0 - 0.4 X10*3/uL [facility] Basophils Absolute Auto 0.0 0.0 - 0.2 X10*3/uL [facility] NRBC Abs Auto 0.000 0.0 - 0.012 X10*3/uL [facility] 05/03/2024 11:0 4 AM EST 05/03/2024 11:12 AM EST us Generic External Data Provider LAB BLOOD ORDERAB LES Final Result [facility] [address] [place] [phone] * (ABNORMAL) C-reactive Protein (05/03/2024 11:04 AM EST) C Reactive Protein 3.79(H) < or = 0.50 mg/dL [facility] 05/03/2024 11:0 4 AM EST 05/03/2024 11:12 AM EST us Generic External Data Provider LAB BLOOD ORDERAB LES Final Result Performing Organization Address [facility] Co wa Phone Number [facility] [address] [place] [phone] * B Type Natriuretic Peptide (BNP) (05/03/2024 11:04 AM EST) [facility] B Type Natriuretic Peptide 44 <100 pg/mL [facility] Comment:For those patients w ho are being treated with Natrecor(nesiritide, recombinant BNP), BNP testing should beperformed at least two hours post treatment in order toensure that only endogenous levels of BNP are detected. 05/03/2024 11:0 4 AM EST 05/03/2024 11:12 AM EST Generic External Data Provider LAB BLOOD ORDERAB LES Final Result Performing Organization Address [facility] Phone Number [facility] [address] [place] [phone] * Magnesium (05/03/2024 11:04 AM EST) Pathologist [facility] Magnesium 2.1 1.6 - 2.6 mg/dL [facility] 05/03/2024 11:0 4 AM EST 05/03/2024 11:12 AM EST Generic External Data Provider LAB BLOOD ORDERAB LES Final Result Performing Organization Address [facility] Phone Number [facility] [address] [place] [phone] * Lipase (05/03/2024 11:04 AM EST) Pathologist [facility] Lipase 37 8 - 78 U/L [facility] 05/03/2024 11:0 4 AM EST 05/03/2024 11:12 AM EST us Generic External Data Provider LAB BLOOD ORDERAB LES Final Result Performing Organization Address [facility] Co de Phone Number [facility] [address] [place] [phone] * Creatine Kinase, Total (05/03/2024 11:04 AM EST) Creatine Kinase Total 35 26 - 140 U/L [facility] 05/03/2024 11:0 4 AM EST 05/03/2024 11:12 AM EST us Generic External Data Provider LAB BLOOD ORDERAB LES Final Result Performing Organization Address [facility] de Phone Number [facility] [address] [place] [phone] * Hepatic Function Panel (05/03/2024 11:04 AM EST) Bilirubin, Total 0.5 0.0 - 1.0 mg/dL [facility] Bilirubin, Direct 0.2 0.0 - 0.5 mg/dL [facility] Aspartate Amino Transferase 14 5 - 31 U/L [facility] Alanine Aminotransferase 13 0 - 31 U/L [facility] Total Protein 7.0 6.5 - 8.0 g/dL [facility] Albumin Level 3.5 3.5 - 5.0 g/dL [facility] Alkaline Phosphatase 54 39 - 117 U/L [facility] 05/03/2024 11:0 4 AM EST 05/03/2024 11:12 AM EST us Generic External Data Provider LAB BLOOD ORDERAB LES Final Result Performing Organization Address [facility] Co de Phone Number [facility] [address] [place] [address] [place] [phone] * (ABNORMAL) Basic Metabolic Panel (05/03/2024 11:04 AM EST) Sodium 140 135 - 145 mmol/L [facility] Potassium 3.5 3.3 - 5.1 mmol/L [facility] Chloride 108 96 - 108 mmol/L [facility] Carbon Dioxide 23 22 - 29 mmol/L [facility] Anion Gap 13 12 - 20 [facility] Urea Nitrogen (BUN) 18(H) 9 - 16 mg/dL [facility] Creatinine, Serum 0.70 0.5 - 1.4 mg/dL [facility] Creatinine Clr Calc Pharmacy 91.1 [facility] Comment:Provided height and weight: 152.4 cm,90.718 kg.eGFR (calculated from the MDRD study equation) and eCrCl(calculated from the Cockcroft-Gault equation) are based ondifferent parameters and may not yield comparable results.If eCrCl result is absurd, please check patient'sheight/weight. Estimated Glomerular Filt Rate >60 [facility] Comment:Chronic Kidney Disea se: Estimated GFR < 60 mL/min/1.54f9Qtyzzd Kidney Disease: Estimated GFR < 15 mL/min/1.73m2 Glucose 179(H) 60 - 115 mg/dL [facility] Calcium 8.6 8.4 - 10.2 mg/dL [facility] 05/03/2024 11:0 4 AM EST 05/03/2024 11:12 AM EST us Generic External Data Provider LAB BLOOD ORDERAB LES Final Result [facility] [address] [place] [phone] * XR Chest 1 View (05/03/2024 10:40 AM EST) Anatomical Region Laterality Modality Chest Radiographic Amanda ging 05/03/2024 10:4 0 AM EST Narrative 05/03/2024 11:39 AM EST ? [facility] ?[address] ?[place] [address] ?XRay Report ? Signed ? Patient: Liriano,Scarlett ?MR#: [id number] ?? 354 ? : 1970 ?Acct:[id number] ? Age/Sex: 53 / F ?ADM Date: 05/03/24 ? Loc: HO.ED ? Attending Dr: ? Ordering Physician: Dana Montenegro DO ?? Date of Service: 05/03/24 ?? Procedure(s): XR chest 1V ?? Accession Number(s): [id number] ? cc: Cristian Chacon MD; Dana Montenegro DO ? EXAMINATION: ?? XR CHEST ? CLINICAL INFORMATION: ?? chest pain ? COMPARISON: ?? Chest pain ? TECHNIQUE: ?? Frontal view of the chest was obtained. ? FINDINGS: ?? There is mild cardiomegaly with increased pulmonary vascularity and ?? markings in both lower lobes suggestive osseous mild CHF. There is ?? bibasilar scarring or atelectasis. No pleural effusion. No gross bony ?? abnormality. ? XR/XR chest 1V ?? IMPRESSION: ?? Cardiomegaly with mild CHF suspected. There is bibasilar scarring ?? and/or atelectasis. ? Electronically signed by: ??Oli Schmidt MD ??05/03/2024 11:36 AM EST RP ? Dictated By: ?Oli Schmidt MD ? Signed By: ?<Electronically signed by Oli Schmidt MD in OV> ?05/03/24 1136 ? DD/ 1040 ? TD/TT: 05/03/24 1100 ? Clerk Of Superior Court: MSM ? Procedure Note Taylor, Makenna - 05/03/[address] [address] XRay Report Signed Patient: Scarlett Liriano#: [id number] 354 : 1970Acct:[id number] Age/Sex: 53 / FADM Date: 05/03/24 Loc: HO.ED Attending Dr: Ordering Physician: Dana Montenegro DO Date of Service: 05/03/24 Procedure(s): XR chest 1V Accession Number(s): [id number] cc: Cristian Chacon MD; Dana Montenegro DO EXAMINATION: XR CHEST CLINICAL INFORMATION: chest pain COMPARISON: Chest pain TECHNIQUE: Frontal view of the chest was obtained. FINDINGS: There is mild cardiomegaly with increased pulmonary vascularity and markings in both lower lobes suggestive osseous mild CHF. There is bibasilar scarring or atelectasis. No pleural effusion. No gross bony abnormality. XR/XR chest 1V IMPRESSION: Cardiomegaly with mild CHF suspected. There is bibasilar scarring and/or atelectasis. Electronically signed by: Oli Schmidt MD 05/03/2024 11:36 AM EST RP Dictated By: Oli Schmidt MD Signed By: <Electronically signed by Oli Schmidt MD in OV> 05/03/24 1136 DD/ 1040 TD/TT: 05/03/[address]: LEATHA [facility] External Provider IMG XR PROCEDURES Final Result * US Pelvis Transvaginal (05/03/2024 9:16 AM EST) Anatomical Region Laterality Modality Pelvis Ultrasound 05/03/2024 9:16 AM EST Narrative 05/03/2024 9:18 AM EST ? [facility] ?[address] ?[place] [address] ? Ultrasound Report ? Signed ? Patient: Liriano,Scarlett ?MR#: [id number] ?? 354 ? : 1970 ?Acct:[id number] ? Age/Sex: 53 / F ?ADM Date: 03/03/25 ? Loc: HO.US ? Attending Dr: Gavino Wynne MD ? Ordering Physician: Gavino Wynne MD ?? Date of Service: 05/02/24 ?? Procedure(s): US pelvic and transvaginal ?? Accession Number(s): [id number] ? cc: Saskia Rosas MD; Gavino Wynne MD ? CLINICAL HISTORY: R10.2 - Pelvic and perineal pain ? US pelvis transvaginal ? Comparison: US - US PELVIC COMPLETE - 01/17/20 10:57 EST ? Findings: ?? Transvaginal scanning performed. ? The uterus and right ovary have been removed. No right adnexal masses. ?? Left ovary 2.6 x 2.1 x 1.4 cm. This ovary contains what appears to be ?? multiple small follicles. ?? Normal color Doppler of the left ovary. ? No free fluid. ? IMPRESSION: ?? 1. Unchanged appearance of the left ovary compared with the prior exam. ?? Uterus and right ovary have been removed. ? This document has been electronically signed by: Meg Gleason MD on ?? 05/03/2024 09:16:51 ? Dictated By: ?Meg Gleason MD ? Signed By: ?<Electronically signed by Meg Gleason MD in OV> ?05/03/24 0917 ? DD/ ? TD/TT: 05/03/2416 ? Clerk Of Superior Court: ? Procedure Note Donotconinterpreter, Image - 05/03/2024 [place] [address] Ultrasound Report Signed Patient: Scarlett LirianoMR#: [id number] 354 : 1970Acct:[id number] Age/Sex: 53 / FADM Date: 05/02/24 Loc: HO.US Attending Dr: Gavino Wynne MD Ordering Physician: Gavino Wynne MD Date of Service: 05/02/24 Procedure(s): US pelvic and transvaginal Accession Number(s): [id number] cc: Saskia Rosas MD; Gavino Wynne MD CLINICAL HISTORY: R10.2 - Pelvic and perineal pain US pelvis transvaginal Comparison: US - US PELVIC COMPLETE - 01/17/20 10:57 EST Findings: Transvaginal scanning performed. The uterus and right ovary have been removed. No right adnexal masses. Left ovary 2.6 x 2.1 x 1.4 cm. This ovary contains what appears to be multiple small follicles. Normal color Doppler of the left ovary. No free fluid. IMPRESSION: 1. Unchanged appearance of the left ovary compared with the prior exam. Uterus and right ovary have been removed. This document has been electronically signed by: Meg Gleason MD on 05/03/2024 09:16:51 Dictated By: Meg Gleason MD Signed By: <Electronically signed by Meg Gleason MD in OV> 05/03/[address]16 DD/ 5 TD/TT: 05/03/[address]: Result [facility] External Provider IMG US PROCEDURES Final Result * ECG 12 lead (04/13/2024 2:18 PM EST) Only the most recent of2 resultswithin the time period is included. Narrative Cristian Chacon MD - 04/13/2024 2:18 PM EST Supraventricular tachycardia [id number] Result [facility] Cristian Martinez MD ECG ORDERABLES Fi nal Result * POCT Glucose (04/04/2024 4:00 PM EST) [facility] Glucose Blood, POC 174 60 - 200 mg/dL QC Media Lot # [id number] Lot# Expiration Date Blood Capillary blood specimen / Unknown 04/04/2024 4:00 PM EST Result [facility] Cristian Martinez MD POINT OF CARE TEST ENTER/EDIT ORDERABLES Final Result * CT CHEST ANGIO W AND WO IV CONTRAST (03/19/2024 1:44 PM EST) Anatomical Region Laterality Modality Computed Tomogra phy Result [facility] Historical Provider IMG CT PROCEDURES Final R esult * CT Chest w/o Contrast (02/16/2024 9:13 AM EST) Anatomical Region Laterality Modality Body, Chest Computed Tomogra phy Result [facility] Historical Provider IMG CT PROCEDURES Final R esult * Hematoxylin and Eosin Stain (02/09/2024 11:28 AM EST) 02/09/2024 11:2 8 AM EST 02/09/2024 11:49 AM EST Narrative [facility] - 02/11/2024 10:05 AM EST ----- ------- Name: Scarlett Liriano ?Age/Sex: 53/F ? : 1970 Unit#: [id number] ?? Attend Dr: Ellie Gan MD ?Re02/09/24 ?Status: DEP SDC ? Location: HO.SSS ?Disch: ? ----- ------- SPEC : [id number] ? RECD: 02/09/24-1148 ? STATUS: ??SOUT ? REQ NUM: [id number] ? OWEN: 02/09/24-8 ? SUBM DR: Ellie Gan MD ? ENTERED: ??02/09/24-1201 ?SP TYPE: Surgical ? OTHR DR: Saskia [...] Copies To: ?? Ellie Gan MD ?? [facility] ?? [address] ?? [place] [address] ?? [phone] ?? Saskia Rosas MD ?? [address] ?? [place] [address] ?? [phone] ----- ------- Signed (signature on file) Oliver Barroso MD 02/11/24 1005 ? ----- ------- ? END OF REPORT ? us Generic External Data Provider LAB BLOOD ORDERAB LES Final Result [facility] [address] [place] [address] [phone] * HM Hemoglobin A1c (11/18/2023 10:40 AM EDT) Historical Provider HEALTH MAINTENANCE Final Result * BI Mammogram Screening Tomosynthesis Bilateral (05/27/2023 9:10 AM EDT) Anatomical Region Laterality Modality Breast Bilateral Mammography 05/27/2023 9:10 AM EDT Narrative 06/23/2023 5:53 AM EDT ? [facility] [place] ? [address] ?[place] [address] ? Mammography Report ? Signed ? Patient: Liriano,Scarlett ?MR#: [id number] ?? 354 ? : 1970 ?Acct:[id number] ? Age/Sex: 52 / F ?ADM Date: 03/27/24 ? Loc: HO.MAMMO ? Attending Dr: Cristian Martinez MD ? Ordering Physician: Cristian Chacon MD ?Res ?? ults: 1Negative ? Date of Service: 05/27/23 ?Follow Up: 1 Year From Orig ?? inal Mammogram ? Procedure(s): MM tomosynthesis screening BI ?? Accession Number(s): [id number] ? cc: Cristian Chacon MD ? EXAMINATION: ?? MM SCREENING DIGITAL BREAST TOMOSYNTHESIS, BILATERAL ? CLINICAL INFORMATION: ? Screening. Asymptomatic. ?? Patient is status post bilateral breast reduction. ? COMPARISON: ?? Mammography: This study is compared with prior exams dating back to ?? 2016. ? TECHNIQUE: ?? Digital breast tomosynthesis is [...] in OV> ? 06/23/23 0549 ? DD/ 09 ? TD/TT: ? Clerk Of Superior Court: ? Procedure Note Donotuseinterpreter, Image - 06/23/2023 [facility] [address] [place] [address] Mammography Report Signed Patient: Scarlett LirianoMR#: [id number] : 1970Acct:[id number] Age/Sex: 52 / FADM Date: 05/27/23 Loc: HO.MAMMO Attending Dr: Cristian Martinez MD Ordering Physician: Cristian Chacon ults: 1Negative Date of Service: 05/27/23Follow Up: 1 Year From Orig inal Mammogram Procedure(s): MM tomosynthesis screening BI Accession Number(s): [id number] cc: Cristian Chacon MD EXAMINATION: MM SCREENING [...] Alves MD in OV> 06/23/23 0549 DD/ 0910 TD/TT: Clerk Of Superior Court: us Cristian Martinez MD IMG BI PROCEDURES Final Result [...] ?? Lopez GODFREY et al. KAILEE. 2013;310(19): 2348-8459 ?? (http://education.MobileApps.com.com/faq/VXJ461) Non-HDL Cholesterol 121 <130 mg/dL (calc) [facility] Comment: For patients with diabetes plus 1 major ASCVD risk ?? factor, treating to a non-HDL-C goal of <100 mg/dL ?? (LDL-C of <70 mg/dL) is considered a therapeutic ?? option. Triglycerides 91 <150 mg/dL [facility] 11/26/2021 9:36 AM EDT Cristian Martinez MD LAB BLOOD ORDERABL ES Final Result [facility] [address] from Last 3 Months or Most Recently Relevant to Health Maintenance [facility] Care Teams Horse Rider Relationship Specialty Start Date End Date Cristian Chacon MD [address] [place] [address] PCP - General Internal Medicine 03/17/19 Ivy Payne Field Sales ManagerNursing Service Administrator 11/26/23
--- OUTSIDE RECORDS SUMMARY | 2024-05-03 13:54 | XMS_ITS | Encounter Summary ---
Author Organization [employer] Address [address] [facility] [address] [place] [address] Care Team Providers Care Senior Oracle Adf Developer Name Role Phone Cristian Chacon MD Primary Care Prov ider Encounter Details Date Type Department Care Team ([facility] st Contact Info) Description 12/22/2023 Orders Only [facility] MED & PEDS [address] [place], [place] [phone] Cristian Chacon MD [address] [place] [address] Social History Tobacco Use Types Packs/Day Years [...] Description 05/17/2024 1:30 PM EDT Office Visit [facility] MED & PEDS [address] [place] [address] Cristian Chacon MD [address] [place] [address] documented as of this encounter Visit Diagnoses Not on filedocumented in this encounter Additional Health Concerns Assessment Noted Time PHQ-9 Depression Total Score: 16 024 1:19 PM EDT documented as of this encounter Care Teams Senior Oracle Adf Developer Relationship Specialty Start Date End Date Cristian Chacon MD [address] [place] [address] PCP - General Internal Medicine 03/17/19 Ivy Payne Electroplater HelperShear Operator Automatic 11/26/23 documented as of this encounter
--- OUTSIDE RECORDS SUMMARY | 2024-05-03 13:54 | XMS_ITS | Encounter Summary ---
Author Organization [facility] Address [address] [facility] 7t [place] [address] Care Team Providers Care Composite Boat Builder Name Role Phone Cristian Chacon MD Primary Care Prov ider Encounter Details Date Type Department Care Team (Latest Contact Info) Description 10/18/2020 Abstract [facility] CONVERSIONS Dental, Provider, DDS Social History [...] Description 05/17/2024 1:30 PM EDT Office Visit [facility] CHC MED & PEDS [address] [place] [address] Cristian Chacon MD [address] [place] [address] documented as of this encounter Visit Diagnoses Not on filedocumented in this encounter Care Teams Composite Boat Builder Relationship Specialty Start Date End Date Cristian Chacon MD [address] [place] [address] PCP - General Internal Medicine 03/17/19 Ivy Payne Structural DrafterManager Competitive Intelligence 03/03/23 11/25/23 Ivy Payne Sports Book WriterManager Competitive Intelligence 11/26/23 documented as of this encounter
--- OUTSIDE RECORDS SUMMARY | 2024-05-03 13:54 | XMS_ITS | Encounter Summary ---
Author Organization [employer] Address [address] [facility] 7t [place] [address] Care Team Providers Care Clay Thrower Name Role Phone Cristian Chacon MD Primary Care Prov ider Encounter Details Date Type Department Care Team ([facility] Contact Info) Description 01/11/2024 Orders Only [facility] [address] [place] [address] Provider, MD Roderick Social History Tobacco Use [...] Description 05/17/2024 1:30 PM EDT Office Visit [facility] MED & PEDS [address] [place] [address] Cristian Chacon MD [address] [place] [address] documented as of this encounter Procedures Procedure [...] documented as of this encounter Care Teams Clay Thrower Relationship Specialty Start Date End Date Cristian Chacon MD [address] [place] [address] PCP - General Internal Medicine 03/17/19 Ivy Payne Curriculum SpecialistArabic Translator 11/26/23 documented as of this encounter
--- OUTSIDE RECORDS SUMMARY | 2024-05-03 13:54 | XMS_ITS | Clinical Summary ---
Author Organization [facility] Address [address] [place] [address] Phone Care Team Providers Care Internal Medicine Veterinary Technician Name Role Phone Cristian Chacon Primary Care [...] 10:47 PM EST - 04/14/2024 3:00 AM [facility] Emergency [address] [place] [address] Seth Jason MD URI due to influenza A virus (Primary Dx); Chest wall pain Discharge Disposition: Home or Self Care 03/19/2024 1:30 PM EST - 03/19/2024 8:28 PM [facility] Emergency [address] [place] [address] Ran Adams MD Goebel, Mathew, MD Other chest pain (Primary Dx); Acute generalized body pain; Elevated d-dimer Discharge Disposition: Home or Self Care 02/06/2024 12:50 PM EST - 02/06/2024 5:37 PM EST Emergency [facility] Emergency [address] [place] [address] Jose Quezada, Starr Salcido DO [...] of5 resultswithin the time period is included. [facility] High Sensitivity Troponin I 9 <=54 ng/L LAB CHEMISTRY METHOD 04/14/2024 1:47 AM EST [facility] Blood Venous blood specimen / Unknown Venipuncture / Unknown 04/14/2024 12:55 AM EST 04/14/2024 1:22 AM EST Narrative [facility] - 04/14/2024 1:47 AM EST High levels of biotin in samples may falsely decrease hsTroponin values. ??Use caution when interpreting hsTroponin results in patients taking biotin who exhibit renal impairment (eGFR <60) or in patients taking more than 20 mg/day of biotin. us Yotam Block PA LAB BLOOD ORDERABLES Final Resul t [facility] [address] [place] [address], * (ABNORMAL) CBC auto differential (04/14/2024 12:55 AM EST) Only the most recent of3 resultswithin the time period is included. [facility] WBC 5.7 4.8 - 10.8 K/[facility] LAB HEMETOLOGY METHOD 04/14/2024 1:27 AM EST [facility] RBC 4.10 3.80 - 4.80 M/[facility] LAB HEMETOLOGY METHOD 04/14/2024 1:27 AM EST [facility] Hemoglobin 11.9 11.5 - 16.0 g/dL LAB HEMETOLOGY METHOD 04/14/2024 1:27 AM [facility] Hematocrit 37.2 35.0 - 47.0 % LAB HEMETOLOGY METHOD 04/14/2024 1:27 AM [facility] MCV 90.7 79.0 - 98.0 FL LAB HEMETOLOGY METHOD 04/14/2024 1:27 AM [facility] MCH 29.0 27.0 - 32.0 pcg LAB HEMETOLOGY METHOD 04/14/2024 1:27 AM [facility] MCHC 32.0 32.0 - 37.0 g/dL LAB HEMETOLOGY METHOD 04/14/2024 1:27 AM [facility] RDW 13.9 11.0 - 15.0 % LAB HEMETOLOGY METHOD 04/14/2024 1:27 AM [facility] Platelets 326 130 - 400 K/mcL LAB HEMETOLOGY METHOD 04/14/2024 1:27 AM [facility] MPV 9.3 7.0 - 11.0 FL LAB HEMETOLOGY METHOD 04/14/2024 1:27 AM [facility] NRBC 0.0 <1.0 % LAB HEMETOLOGY METHOD 04/14/2024 1:27 AM [facility] NRBC Absolute 0.00 <0.10 K/mcL LAB HEMETOLOGY METHOD 04/14/2024 1:27 AM [facility] Neutrophils Relative 80.1 % LAB HEMETOLOGY METHOD 04/14/2024 1:27 AM [facility] Lymphocytes Relative 11.2 % LAB HEMETOLOGY METHOD 04/14/2024 1:27 AM [facility] Monocytes Relative 3.9 % LAB HEMETOLOGY METHOD 04/14/2024 1:27 AM [facility] Eosinophils Relative 3.5 % LAB HEMETOLOGY METHOD 04/14/2024 1:27 AM [facility] Basophils Relative 0.4 % LAB HEMETOLOGY METHOD 04/14/2024 1:27 AM [facility] Immature Granulocytes Relative 0.9 % LAB HEMETOLOGY METHOD 04/14/2024 1:27 AM [facility] Neutrophils Absolute 4.53 1.50 - 7.00 K/mcL LAB HEMETOLOGY METHOD 04/14/2024 1:27 AM [facility] Lymphocytes Absolute 0.63(L) 1.00 - 5.00 K/mcL LAB HEMETOLOGY METHOD 04/14/2024 1:27 AM [facility] Monocytes Absolute 0.22 0.20 - 1.00 K/mcL LAB HEMETOLOGY METHOD 04/14/2024 1:27 AM EST [facility] Eosinophils Absolute 0.20 0.00 - 0.50 K/mcL LAB HEMETOLOGY METHOD 04/14/2024 1:27 AM [facility] Basophils Absolute 0.02 0.00 - 0.20 K/mcL LAB HEMETOLOGY METHOD 04/14/2024 1:27 AM [facility] Immature Granulocytes Absolute 0.05(H) 0.00 - 0.03 K/mcL LAB HEMETOLOGY METHOD 04/14/2024 1:27 AM [facility] Blood Venous blood specimen / Unknown Venipuncture / Unknown 04/14/2024 12:55 AM EST 04/14/2024 1:22 AM EST us Ashley NELSON LAB BLOOD ORDERABLES Final Resul t [facility] [address] [place] [address], * Lipase (04/14/2024 12:55 AM EST) Only the most recent of3 resultswithin the time period is included. Lipase 58 13 - 75 unit/L LAB CHEMISTRY METHOD 04/14/2024 2:14 AM [facility] Blood Venous blood specimen / Unknown Venipuncture / Unknown 04/14/2024 12:55 AM EST 04/14/2024 1:22 AM EST Ashley NELSON LAB BLOOD ORDERABLES Final Resul t [facility] [address] [place] [address], [place] [phone] * (ABNORMAL) Comprehensive metabolic panel (04/14/2024 12:55 AM EST) Only the most recent of3 resultswithin the time period is included. [facility] Sodium 135 133 - 145 mmol/L LAB CHEMISTRY METHOD 04/14/2024 2:14 AM [facility] Potassium 4.2 3.5 - 5.5 mmol/L LAB CHEMISTRY METHOD 04/14/2024 2:14 AM [facility] Chloride 101 96 - 110 mmol/L LAB CHEMISTRY METHOD 04/14/2024 2:14 AM [facility] CO2 29 21 - 32 mmol/L LAB CHEMISTRY METHOD 04/14/2024 2:14 AM [facility] Anion Gap 5 3 - 11 LAB CHEMISTRY METHOD 04/14/2024 2:14 AM [facility] Comment:Rechecked. TB 2-13-2 5 Glucose 84 70 - 100 mg/dL LAB CHEMISTRY METHOD 04/14/2024 2:14 AM [facility] BUN 23 5 - 25 mg/dL LAB CHEMISTRY METHOD 04/14/2024 2:14 AM [facility] Creatinine 0.84 0.50 - 1.10 mg/dL LAB CHEMISTRY METHOD 04/14/2024 2:14 AM [facility] eGFR 82 >=60 mL/min/1. 73m2 LAB CHEMISTRY METHOD 04/14/2024 2:14 AM [facility] Comment:Calculation based on the??Chronic Kidney Disease Epidemiology Collaboration (CKD-EPI) equation refit??without adjustment for race. BUN/Creatinine Ratio 27.4 LAB CHEMISTRY METHOD 04/14/2024 2:14 AM [facility] Calcium 9.0 8.5 - 10.5 mg/dL LAB CHEMISTRY METHOD 04/14/2024 2:14 AM [facility] AST (SGOT) 20 10 - 42 unit/L LAB CHEMISTRY METHOD 04/14/2024 2:14 AM [facility] ALT (SGPT) 16 10 - 60 unit/L LAB CHEMISTRY METHOD 04/14/2024 2:14 AM [facility] Alkaline Phosphatase 54 42 - 121 unit/L LAB CHEMISTRY METHOD 04/14/2024 2:14 AM [facility] Total Protein 7.1 6.0 - 8.0 g/dL LAB CHEMISTRY METHOD 04/14/2024 2:14 AM [facility] Albumin 3.1(L) 3.2 - 5.0 g/dL LAB CHEMISTRY METHOD 04/14/2024 2:14 AM [facility] Total Bilirubin 0.4 0.0 - 1.4 mg/dL LAB CHEMISTRY METHOD 04/14/2024 2:14 AM [facility] Blood Venous blood specimen / Unknown Venipuncture / Unknown 04/14/2024 12:55 AM EST 04/14/2024 1:22 AM EST us Ashely NELSON LAB BLOOD ORDERABLES Final Resul t [facility] [address] [place] [address], * ECG 12 lead (04/14/2024 12:41 AM EST) Only the most recent of3 resultswithin the time period is included. Ventricular Rate ECG 102 BPM GEMUSE Atrial Rate 102 BPM GEMUSE P-R Interval 118 ms GEMUSE QRS Duration 66 ms GEMUSE Q-T Interval 326 ms GEMUSE QTc 424 ms GEMUSE P Wave [place]oulder 37 degrees GEMUSE R [place] 15 degrees GEMUSE T [place] 29 degrees GEMUSE ECG Interpretation Sinus tachycardia [...] Signed Date: 04/14/2024 07:59 ET Workstation ID: [id number] Transcribed By: Self Edit Transcribed Date: 04/14/2024 [...] Signed Date: 04/14/2024 07:59 ET Workstation ID: [id number] Transcribed By: Self Edit Transcribed Date: 04/14/2024 07:57 ET Seth Jason MD IMG XR PROCEDURES Final Result * (ABNORMAL) Respiratory virus panel molecular study (04/13/2024 1:02 PM EST) Only the most recent of2 resultswithin the time period is included. Pathologist [facility] [place] Adenovirus Detection by PCR Not Detected Not Detected LAB MICROBIOLOGY METHOD 04/13/2024 2:09 PM [facility] Influenza B PCR Not Detected Not Detected LAB MICROBIOLOGY METHOD 04/13/2024 2:09 PM [facility] Coronavirus 229E Not Detected Not Detected LAB MICROBIOLOGY METHOD 04/13/2024 2:09 PM [facility] Coronavirus HKU1 Not Detected Not Detected LAB MICROBIOLOGY METHOD 04/13/2024 2:09 PM [facility] Coronavirus OC43 Not Detected Not Detected LAB MICROBIOLOGY METHOD 04/13/2024 2:09 PM [facility] Coronavirus NL63 Not Detected Not Detected LAB MICROBIOLOGY METHOD 04/13/2024 2:09 PM [facility] Parainfluenza Virus 1 Not Detected Not Detected LAB MICROBIOLOGY METHOD 04/13/2024 2:09 PM [facility] Parainfluenza Virus 2 Not Detected Not Detected LAB MICROBIOLOGY METHOD 04/13/2024 2:09 PM [facility] Parainfluenza Virus 3 Not Detected Not Detected LAB MICROBIOLOGY METHOD 04/13/2024 2:09 PM [facility] Parainfluenza Virus 4 Not Detected Not Detected LAB MICROBIOLOGY METHOD 04/13/2024 2:09 PM [facility] RSV PCR Not Detected Not Detected LAB MICROBIOLOGY METHOD 04/13/2024 2:09 PM [facility] Human Metapneumovirus A and B Not Detected Not Detected LAB MICROBIOLOGY METHOD 04/13/2024 2:09 PM [facility] Rhinovirus/Entero virus Not Detected Not Detected LAB MICROBIOLOGY METHOD 04/13/2024 2:09 PM [facility] Bordetella pertussis Not Detected Not Detected LAB MICROBIOLOGY METHOD 04/13/2024 2:09 PM [facility] Bordetella parapertussis Not Detected Not Detected LAB MICROBIOLOGY METHOD 04/13/2024 2:09 PM [facility] Influenza A H3 Detected(A ) Not Detected LAB MICROBIOLOGY METHOD 04/13/2024 2:09 PM [facility] Mycoplasma pneumo by PCR Not Detected Not Detected LAB MICROBIOLOGY METHOD 04/13/2024 2:09 PM [facility] Chlamydia pneumoniae Not Detected Not Detected LAB MICROBIOLOGY METHOD 04/13/2024 2:09 PM [facility] SARS COV-2 Not Detected Not Detected LAB MICROBIOLOGY METHOD 04/13/2024 2:09 PM [facility] Swab Both anterior nares / Unknown Non-blood Collection / Unknown 04/13/2024 1:02 PM EST 04/13/2024 1:02 PM EST Narrative [facility] - 04/13/2024 2:09 PM EST Testing was performed using the [employer] Respiratory Pathogen PCR Assay. All results must [...] MICROBIOLOGY - GEN ERAL ORDERABLES Final Result [facility] [address] [place] [address], * CT Angio Chest wo and/or w [...] LAB COAGULATION METHOD 03/19/2024 6:08 PM EST [facility] Blood Venous blood specimen / Unknown Venipuncture / Unknown 03/19/2024 5:25 PM EST 03/19/2024 5:55 PM EST Narrative [facility] - 03/19/2024 6:08 PM EST D-Dimer <230 ng/mL (D-Dimer units) is the threshold for exclusion of DVT/PE. D-Dimer may be elevated in: Critically ill, severely infected, trauma patients, DIC, acute CVA, acute AR, unstable angina, AF, old age, , and smoking. D-Dimer may be decreased with: Initiation of heparin therapy and oral anticoagulants. Ran Adams MD LAB BLOOD ORDERABLES Final R esult Performing Organization Address [facility]/ZIP Co de Phone Number [facility] [address] [place] [address], * B-type natriuretic peptide (03/19/2024 2:53 PM EST) Only the most recent of2 resultswithin the time period is included. BNP 37 <=100 pcg/mL LAB CHEMISTRY METHOD 03/19/2024 3:47 PM EST [facility] Blood Venous blood specimen / Unknown Venipuncture / Unknown 03/19/2024 2:53 PM EST 03/19/2024 3:10 PM EST Marcial Jones MD LAB BLOOD ORDERABLES Gladis l Result Performing Organization Address [facility] Co de Phone Number [facility] [address] [place] [address], * Magnesium (03/19/2024 2:53 PM EST) Only the most recent of2 resultswithin the time period is included. Magnesium 2.0 1.9 - 2.6 mg/dL LAB CHEMISTRY METHOD 03/19/2024 3:40 PM EST [facility] Blood Venous blood specimen / Unknown Venipuncture / Unknown 03/19/2024 2:53 PM EST 03/19/2024 3:10 PM EST Marcial Jones MD LAB BLOOD ORDERABLES Gladis l Result Performing Organization Address [facility]/ZIP Co de Phone Number [facility] [address] [place] [address], * APTT (02/06/2024 1:34 PM EST) aPTT 28.5 24.1 - 39.3 sec LAB COAGULATION METHOD 02/06/2024 2:24 PM EST [facility] Blood Venous blood specimen / Unknown Venipuncture / Unknown 02/06/2024 1:34 PM EST 02/06/2024 1:45 PM EST Rhea NELSON LAB BLOOD ORDERABLES Final Re sult Performing Organization Address [facility]/ZIP Co de Phone Number [facility] [address] [place] [address], [place] [phone] * Protime-INR (02/06/2024 1:34 PM EST) Protime 12.0 10.6 - 13.9 sec LAB COAGULATION METHOD 02/06/2024 2:24 PM EST [facility] INR 1.0 LAB COAGULATION METHOD 02/06/2024 2:24 PM EST [facility] Blood Venous blood specimen / Unknown Venipuncture / Unknown 02/06/2024 1:34 PM EST 02/06/2024 1:45 PM EST Rhea NELSON LAB BLOOD ORDERABLES Final Re sult Performing Organization Address [facility]/ZIP Co de Phone Number [facility] [address] [place] [address], [place] [phone] * ECG-Outside (02/06/2024) Provider Onbase MD ECG ORDERABLES Final Result * DIANE SCREENING DIGITAL (02/27/2018 5:16 PM EST) Anatomical Region Laterality Modality Mammography 02/24/2018 10:4 4 AM EST Narrative 02/27/2018 5:16 PM EST [facility] Diagnostic Imaging Department [address] [place] [address] Patient: ??SCARLETT NEUMANN ?/Age/Sex: 1970 - 47 - F Unit#: ??[id number] ? Location/Status: ??SPDIMAM/REG CLI ? Mnemonic/Ordering Site: ??DIGSC/SPMAM Ordering Physician: ??EDUARDA VILLEDA MD Diane Screening Digital - 02/27/18 - 0758 INDICATION: SCREENING COMPARISON: [facility] mammograms dating back to ?? 08/05/2012 FINDINGS: CC and MLO views of the breasts were obtained, using full field digital mammography with 3D tomosynthesis views in the MLO projection. Computer aided detection with the [employer] 7.2-H was employed. History of reduction mammoplasty [...] date for the next mammogram. ([id number] / [id number]) , ??[id number] Dictating Physician: ??YONG WEATHERS MD Electronically Signed by: ??YONG WEATHERS MD Dic Date/Time: ??02/27/181711 Sign date/Time: ??02/27/181715 Procedure Note Yong Weathers MD - 02/18/2022 [facility] Diagnostic Imaging Department [address] [place] [address] Patient: SCARLETT NEUMANN /Age/Sex: 1970 - 47 - F Unit#: [id number] Location/Status: [facility] CLI Mnemonic/Ordering Site: [facility] Ordering Physician: EDUARDA VILLEDA MD Diane Screening Digital - 02/27/18 - 0758 INDICATION: SCREENING COMPARISON: [facility] mammograms dating back to 08/05/2012 FINDINGS: CC and MLO views of the breasts were obtained, using full field digital mammography with 3D tomosynthesis views in the MLO projection. Computeraided detection with the [employer] 7.2-H was employed. History of reduction mammoplasty [...] a target date for the next mammogram. [id number] / [id number]) , [id number] Dictating Physician: YONG WEATHERS MD Electronically Signed by: YONG WEATHERS MD Dic Date/Time: 02/27/18 171 Sign date/Time: 02/27/181715 Eduarda Villeda MD IMG BI PROCEDURES Final R esult from Last 3 Months or Most Recently Relevant to Health Maintenance Additional Health Concerns Infection Onset Date Last Indicated Influenza 04/13/2024 04/13/2024 Insurance MEDICAID - [place] Care Teams Internal Medicine Veterinary Technician Relationship Specialty Start Date End Date Cristian Chacon [address] [place], [place] PCP - General Internal Medicine 10/17/20
--- OUTSIDE RECORDS SUMMARY | 2024-05-03 13:54 | XMS_ITS | Encounter Summary ---
Author Organization [employer] Address [address] [place] [address] Care Team Providers Care Electrical And Instrument Technician Name Role Phone Cristian Chacon MD Primary Care Prov ider Encounter Details Date Type Department Care Team (Late st Contact Info) Description 09/04/2023 Orders Only [facility] MED & PEDS [address] [place], [place] [phone] Cristian Chacon MD [address] [place] [address] Social History Tobacco Use Types Packs/Day Years [...] [facility] MED & PEDS [address] [place] [address] Cristian Chacon MD [address] [place] [address] documented as of this encounter Visit Diagnoses Not on filedocumented in this encounter Additional Health Concerns Assessment Noted Time PHQ-9 Depression Total Score: 14 024 9:49 AM EST documented as of this encounter Care Teams Electrical And Instrument Technician Relationship Specialty Start Date End Date Cristian Chacon MD [address] [place] [address] PCP - General Internal Medicine 03/17/19 Ivy Payne Marine Electrician ApprenticeTeaching Young 03/03/23 11/25/[address] ResearcherTeaching Young 11/26/23 documented as of this encounter
--- OUTSIDE RECORDS SUMMARY | 2024-05-03 13:55 | XMS_ITS | Referral Summary ---
Author Organization [facility] Address [address] [place] [address] Care Team Providers Care Manager Merchandise Name Role Phone Cristian Chacon MD Primary Care Prov ider Encounters Date Type Department Care Team Description 04/21/2024 Telephone [facility] 4th floor Cardiology Medicine [address] [place] [address] Eeler: Mary Arriaga Telephone Intake, Staff PAC Form/Letter/Record s Request 04/20/2024 9:00 AM EST Follow-Up [facility] [address] [place] [address] Eeler: Alonzo Baez MD FELI positive (Primary Dx); Arthralgia, unspecified joint; Chest pain, unspecified type; Moderate persistent asthma, unspecified whether complicated 04/08/2024 Telephone [facility] [address] [place] [phone] Eeler: Zaida Rust Telephone Intake, Staff PAC Sick/Symptoms 03/30/2024 Telephone [facility] [address] [place] [address] Eeler: Alonzo Baez MD PAC Patient Request Call Back; PAC Clinical Questions 03/27/2024 Telephone [facility] [address] [place] [address] Eeler: Alonzo Caputo MD 03/25/2024 Telephone [facility] [address] [place] [address] Eeler: Alonzo Caputo MD 03/24/2024 Documentation [facility] [address] [place] [phone] Eeler: Alonzo Caputo MD 03/24/2024 Telephone [facility] [address] [place] [address] Eeler: Alonzo Caputo MD 03/23/2024 4:00 PM EST - 03/23/2024 11:59 PM EST Hospital Encounter [facility] XRay [address] [place] [phone] Alonzo Persaud MD Chronic pain of both shoulders; Bilateral hip pain; Neck pain Discharge Disposition: Home or Self Care () 03/23/2024 3:20 PM EST Office Visit [facility] [address] [place] [address] Eeler: Alonzo Baez MD Chronic pain of both shoulders (Primary Dx); Bilateral hip pain; Neck pain 03/22/2024 Telephone [facility] [address] [place] [address] Eeler: Zaida Rust Telephone Intake, Staff PAC Provider Requested Call Back Dr Persaud 03/22/2024 Telephone [facility] [address] [place] [phone] Eeler: Alysha Roman Telephone Intake, Staff 03/17/2024 Refill [facility] [address] [place] [phone] Eeler: Alonzo Baez MD 03/05/2024 Refill [facility] [address] [place] [address] Eeler: Alonzo Baez MD 02/18/2024 Telephone [facility] [address] [place] [address] Eeler: Alonzo Caputo MD 02/16/2024 12:00 PM EST - 02/16/2024 11:59 PM EST Hospital Encounter [facility] CT Scan Department [address] [place] [address] Rib pain Discharge Disposition: Home or Self [...] Description 06/01/2024 9:00 AM EDT Office Visit [facility] 4th floor Cardiology Medicine [address] [place] [phone] Eeler: Hemal Fritz MD [address] [place] [address] 08/02/2024 1:30 PM EDT Follow-Up [facility]ermat[facility] [address] [place] [address] Eeler: Morales Ramsey MD [address] [place] [phone] 08/16/2024 2:00 PM EDT Office Visit [facility] [address] [place] [phone] Eeler: Dennis Laguna MD [address] [place] [address] Scheduled Procedures Name Priority Associated Diagnoses Date/Ti me ARTHROSCOPY, SHOULDER, WITH ROTATOR CUFF REPAIR Chronic left shoulder pain ARTHROSCOPY, SHOULDER, DEBRI RONAL, EXTENSIVE Chronic left shoulder pain ARTHROSCOPY, SHOULDER, BICEP S TENODESIS Chronic left shoulder pain Procedures * Due to [place] state law, this organization might not be [...] AM EST FELI positive Arthralgia, unspecified joint [id number] STAT 04/20/19 9:23 AM EST FELI positive [...] Health Maintenance Results * Due to [place] state law, this organization might not be sharing negative HIV tests. * Drake Top, Urine (04/20/2024 9:23 AM EST) Only the most recent of2 resultswithin the time period is included. Pathologist [facility] Extra Tube Hold for add-ons. 04/20/2024 2:05 PM EST [facility] Comment:Auto resulted. Urine Urine specimen collection, clean catch / Unknown Non-Blood Collection / Unknown 04/20/2024 9:23 AM EST 04/20/2024 9:39 AM EST Alonzo Persaud MD LAB URINE ORDERABLES Final Result Performing Organization Address City/[facility]/ZIP Co de Phone Number [facility] [address] [place] [address], [place] * (ABNORMAL) DNA AB(DS) Crithidia Titer (04/20/2024 9:23 AM EST) Only the most recent of2 resultswithin the time period is included. Pathologist [facility] DNA Ab Crithidia Titer 1:40(H) <1:10 titer 04/23/2024 12:47 PM EST [facility] ([facility]) Blood Structure of peripheral vein / Unknown Venipuncture / Unknown 04/20/2024 9:23 AM EST 04/20/2024 9:38 AM EST Narrative [facility] - 04/23/2024 12:47 PM EST [facility] Received Date: Alonzo Persaud MD LAB BLOOD ORDERABLES Final Result [facility] [address] [facility] 3rd Floor, [place] [address], [place] [phone] [employer] ([employer]) [address] [place], [place] , [place] * (ABNORMAL) Urinalysis W/Reflex to Microscopic & Culture (04/20/2024 9:23 AM EST) Only the most recent of2 resultswithin the time period is included. Pathologist [facility] Color, Urine Yellow Colorless, Light Yellow, Yellow, Dark Yellow 04/20/2024 9:59 AM [facility] Clarity, Urine Clear Clear 04/20/2024 9:59 AM [facility] Specific [place], Urine 1.024 1.005 - 1.030 04/20/2024 9:59 AM [facility] pH, Urine 5.0 4.6 - 8.0 04/20/2024 9:59 AM [facility] Protein, Urine 1+(A) Negative 04/20/2024 9:59 AM [facility] Glucose, Urine Negative Negative 04/20/2024 9:59 AM [facility] Ketones, Urine Negative Negative 04/20/2024 9:59 AM [facility] Bilirubin, Urine Negative Negative 04/20/2024 9:59 AM [facility] Blood, Urine Negative Negative 04/20/2024 9:59 AM [facility] Nitrite, Urine Negative Negative 04/20/2024 9:59 AM [facility] Urobilinogen, Urine Normal Normal 04/20/2024 9:59 AM [facility] Leukocyte Esterase, Urine Negative Negative 04/20/2024 9:59 AM [facility] WBC, Urine 1 0 - 2 /HPF 04/20/2024 9:59 AM [facility] RBC, Urine <1 0 - 2 /HPF 04/20/2024 9:59 AM [facility] Hyaline Casts, Urine 0 0 - 2 /LPF 04/20/2024 9:59 AM [facility] Squamous Epithelial Cells, Urine 2 /HPF 04/20/2024 9:59 AM [facility] Bacteria, Urine None None /HPF /HPF 04/20/2024 9:59 AM [facility] Mucus, Urine Rare /LPF 04/20/2024 9:59 AM EST [facility] Urine Urine specimen collection, clean catch / Unknown Non-Blood Collection / Unknown 04/20/2024 9:23 AM EST 04/20/2024 9:39 AM EST Alonzo Persaud MD LAB URINE ORDERABLES Final Result [facility] [address] [place] [address], [place] * (ABNORMAL) DNA Antibody (ds) Crithidia IFA w/Reflex (04/20/2024 9:23 AM EST) Only the most recent of2 resultswithin the time period is included. DNA Ab(ds) Crithidia, IFA Positive(A ) Negative 04/23/2024 12:26 PM EST [facility] ([facility]) Blood Structure of peripheral vein / Unknown Venipuncture / Unknown 04/20/2024 9:23 AM EST 04/20/2024 9:38 AM EST Narrative [facility] - 04/23/2024 12:26 PM EST [facility] Received Date: Alonzo Persaud MD LAB BLOOD ORDERABLES Final Result [facility] [address] [place] [address] 3rd Floor, [place] [address], [facility] ([place]) [address] [place], [place] , [place] * Procalcitonin (04/20/2024 9:23 AM EST) Pathologist [facility] Procalcitonin <0.20 <0.20 ng/mL 04/22/2024 2:53 PM EST [facility]- 0091 Comment: Verified by repeat analysis. Procalcitonin levels above 2.00 ng/mL on the first day of ICU admission represent a high risk for progression to severe sepsis and/or septic shock. Procalcitonin Comment See Comments 04/22/2024 2:53 PM EST [facility]- 0091 Comment: Interpretation Guidelines Diagnosis of systemic [...] Persaud MD LAB BLOOD ORDERABLES Final Result [address]rd Floor, [place] [address], [place] [phone] [facility] [address] [place] [address], [place] [phone] * (ABNORMAL) CBC Auto Differential (04/20/2024 9:23 AM EST) Only the most recent of2 resultswithin the time period is included. WBC 12.4(H) 3.8 - 10.8 10*3/uL 04/20/2024 9:47 AM EST [facility] RBC 4.34 3.80 - 5.10 10*6/uL 04/20/2024 9:47 AM EST [facility] Hemoglobin 12.3 11.7 - 15.5 g/dL 04/20/2024 9:47 AM EST [facility] Hematocrit 39.1 35.0 - 45.0 % 04/20/2024 9:47 AM [facility] MCV 90.1 80.0 - 100.0 fL 04/20/2024 9:47 AM [facility] MCH 28.3 27.0 - 33.0 pg 04/20/2024 9:47 AM [facility] MCHC 31.5(L) 32.0 - 36.0 g/dL 04/20/2024 9:47 AM [facility] RDW 13.4 11.0 - 15.0 % 04/20/2024 9:47 AM [facility] Platelets 351 140 - 400 10*3/uL 04/20/2024 9:47 AM [facility] MPV 9.4 7.5 - 12.5 fL 04/20/2024 9:47 AM [facility] Neutrophil % 88.3 % 04/20/2024 9:47 AM [facility] Immature Grans % 1.1(H) 0.0 - 0.9 % 04/20/2024 9:47 AM [facility] Lymphocyte % 6.1 % 04/20/2024 9:47 AM [facility] Monocyte % 4.1 % 04/20/2024 9:47 AM [facility] Eosinophil % 0.2 % 04/20/2024 9:47 AM [facility] Basophil % 0.2 % 04/20/2024 9:47 AM [facility] Neutrophil # 10.92(H) 1.50 - 7.80 10*3/uL 04/20/2024 9:47 AM [facility] Immature Grans # 0.14(H) <=0.03 10*3/uL 04/20/2024 9:47 AM EST [facility] Lymphocyte # 0.80(L) 0.85 - 3.90 10*3/uL 04/20/2024 9:47 AM EST [facility] Monocyte # 0.50 0.20 - 0.95 10*3/uL 04/20/2024 9:47 AM EST [facility] Eosinophil # <0.03 0.02 - 0.50 10*3/uL 04/20/2024 9:47 AM EST [facility] Basophil # <0.03 0.00 - 0.20 10*3/uL 04/20/2024 9:47 AM EST [facility] nRBC % 0.0 /100 WBCs 04/20/2024 9:47 AM EST [facility] nRBC # <0.01 <0.01 10*3/uL 04/20/2024 9:47 AM EST [facility] Blood Structure of peripheral vein / Unknown Venipuncture / Unknown 04/20/2024 9:23 AM EST 04/20/2024 9:38 AM EST us Alonzo Persaud MD LAB BLOOD ORDERABLES Final Result Performing Organization Address City/State/[facility] Co de Phone Number [facility] [address] [place] [address], [place] * Microalbumin, Random Urine with Creatinine (04/20/2024 9:23 AM EST) Only the most recent of2 resultswithin the time period is included. Microalbumin, Urine <2.0 mg/dL 04/20/2024 12:17 PM EST [facility] Creatinine, Urine 186 15 - 278 mg/dL 04/20/2024 12:17 PM EST [facility] Microalb/Creat Ratio, Random Urine 04/20/2024 12:17 PM EST [facility] Comment: < 1.0 mcg/mgCr Microalbumin Reference Range: Normal ? <30 mcg/mg Creatinine Microalbuminuria ? 30-300 mcg/mg Creatinine Clinical Albuminuria >300 mcg/mg Creatinine Reference: ADA Guideline. Diabetes Care. 2004;27 (suppl 1) Urine Voided urine specimen / Unknown Non-Blood Collection / Unknown 04/20/2024 9:23 AM EST 04/20/2024 9:39 AM EST Alonzo Persaud MD LAB URINE ORDERABLES Final Result [facility] [address] [place] [address], [facility] [address] [place] [address], * (ABNORMAL) DNA Antibody, Double-Stranded (04/20/2024 9:23 AM EST) Only the most recent of2 resultswithin the time period is included. DNA (Ds) Antibody 7(H) IU/mL 025 9:50 PM EST [employer] Comment: ? IU/mL ? Interpretation ? < or = 4 ?Negative ? 5-9 ? Indeterminate ? > or = 10 ?? Positive Blood Structure of peripheral vein / Unknown Venipuncture / Unknown 04/20/2024 9:23 AM EST 04/20/2024 9:38 AM EST Narrative [facility] - 04/21/2024 9:50 PM EST [facility] Received Date:[id number] Alonzo Persaud MD LAB BLOOD ORDERABLES Final Result [facility] [address] [facility] 3rd Floor, [place] [address], [place] [phone] [facility] [employer] [facility] [address] [facility] 3rd Floor, [place] [address], [place] [phone] * Sedimentation Rate (04/20/2024 9:23 AM EST) Only the most recent of2 resultswithin the time period is included. Pathologist [facility] Sed Rate 23 <30 mm/Hr mm/Hr 04/20/2024 10:04 AM EST [facility] Blood Structure of peripheral vein / Unknown Venipuncture / Unknown 04/20/2024 9:23 AM EST 04/20/2024 9:38 AM EST Alonzo Persaud MD LAB BLOOD ORDERABLES Final Result Performing Organization Address [facility] Co de Phone Number [facility] [address] [place] [address], [place] * Complement C3 (04/20/2024 9:23 AM EST) Only the most recent of2 resultswithin the time period is included. Pathologist [facility] Complement Component C3C 101 83 - 193 mg/dL 04/21/2024 4:22 AM EST [facility] Blood Structure of peripheral vein / Unknown Venipuncture / Unknown 04/20/2024 9:23 AM EST 04/20/2024 9:38 AM EST [facility]ative [facility] - 04/21/2024 4:22 AM EST [facility] Received Date:[id number] Alonzo Persaud MD LAB BLOOD ORDERABLES Final Result Performing Organization Address City/[facility]/ZIP Co de Phone Number [facility] [address] [facility] [address]rd Floor, [place] [address], [place] [phone] [facility] [address] [facility] [address]rd Floor, [place] [address], [place] [phone] * Complement C4 (04/20/2024 9:23 AM EST) Only the most recent of2 resultswithin the time period is included. Pathologist [facility] Complement Component C4C 21 15 - 57 mg/dL 04/21/2024 4:22 AM EST [facility] Blood Structure of peripheral vein / Unknown Venipuncture / Unknown 04/20/2024 9:23 AM EST 04/20/2024 9:38 AM EST Narrative [facility] - 04/21/2024 4:22 AM EST [facility] Received Date: us Alonzo Persaud MD LAB BLOOD ORDERABLES Final Result Performing Organization Address City/[facility]/ZIP Co de Phone Number [facility] [address] [facility] [address] [facility], [place] [address], [facility] [employer] [address], [place] [address], [place] [phone] * (ABNORMAL) C-Reactive Protein (04/20/2024 9:23 AM EST) Only the most recent of2 resultswithin the time period is included. [facility] C Reactive Protein 10.5(H) <=9.9 mg/L 04/20/2024 10:34 AM EST [facility] Blood Structure of peripheral vein / Unknown Venipuncture / Unknown 04/20/2024 9:23 AM EST 04/20/2024 9:38 AM EST us Alonzo Persaud MD LAB BLOOD ORDERABLES Final Result [facility] [address] [place] [address], * (ABNORMAL) Creatine Kinase (04/20/2024 9:23 AM EST) Only the most recent of2 resultswithin the time period is included. Pathologist [facility] CK 35(L) 38 - 206 U/L 04/20/2024 10:34 AM EST [facility] Blood Structure of peripheral vein / Unknown Venipuncture / Unknown 04/20/2024 9:23 AM EST 04/20/2024 9:38 AM EST us Alonzo Persaud MD LAB BLOOD ORDERABLES Final Result [facility] [address] [place] [address], * (ABNORMAL) Comprehensive Metabolic Panel (04/20/2024 9:23 AM EST) Only the most recent of2 resultswithin the time period is included. NA 139 135 - 145 mmol/L 04/20/2024 10:34 AM EST [facility] K 3.8 3.5 - 5.3 mmol/L 04/20/2024 10:34 AM EST [facility] Cl 105 98 - 107 mmol/L 04/20/2024 10:34 AM EST [facility] CO2 24 22 - 32 mmol/L 04/20/2024 10:34 AM EST [facility] Anion Gap 10 5 - 15 04/20/2024 10:34 AM EST [facility] Glucose 177(H) 65 - 99 mg/dL 04/20/2024 10:34 AM EST [facility] Creatinine 0.73 0.50 - 1.20 mg/dL 04/20/2024 10:34 AM EST [facility] Calcium 8.4(L) 8.6 - 10.5 mg/dL 04/20/2024 10:34 AM EST [facility] Total Protein 6.9 6.0 - 8.0 g/dL 04/20/2024 10:34 AM EST [facility] Albumin 3.4(L) 3.5 - 5.2 g/dL 04/20/2024 10:34 AM EST [facility] Bilirubin, Total 0.3 0.2 - 1.2 mg/dL 04/20/2024 10:34 AM EST [facility] Alkaline Phosphatase 50 35 - 129 U/L 04/20/2024 10:34 AM EST [facility] AST 14 10 - 40 U/L 04/20/2024 10:34 AM EST [facility] ALT 11 10 - 40 U/L 04/20/2024 10:34 AM EST [facility] BUN 24(H) 7 - 23 mg/dL 04/20/2024 10:34 AM [facility] eGFR >90 >=60 mL/min/1. 73m2 04/20/2024 10:34 AM EST [facility] Comment:The estimated glomer ular [...] - 4.2 g/dL 04/20/2024 10:34 AM EST [facility] A/G Ratio 1.0(L) 1.5 - 3.0 04/20/2024 10:34 AM EST [facility] Blood Structure of peripheral vein / Unknown Venipuncture / Unknown 04/20/2024 9:23 AM EST 04/20/2024 9:38 AM EST us Alonzo Persaud MD LAB BLOOD ORDERABLES Final Result [facility] [address] [place] [address], * Interpretation (03/23/2024 4:48 PM EST) FELI Specific Antibody Interpretation See Comments 03/25/2024 12:23 PM EST [employer] Comment: The presence of these two antibodies [...] 4:48 PM EST 03/23/2024 5:31 PM EST [facility] - 03/25/2024 12:23 PM EST [facility] Received Date: Alonzo Persaud MD LAB BLOOD ORDERABLES Final Result Performing Organization Address [facility]/State/ZIP Co de Phone Number [facility] [place] [facility] [address] [facility] 3rd Floor, [place] [address], [facility] [address] [facility] 3rd Floor, [place] [address], * (ABNORMAL) Stage 1 (03/23/2024 4:48 PM EST) DNA (Ds) Antibody 11(H) IU/mL 025 12:23 PM EST [employer] Comment: ? IU/mL ? Interpretation ? < or = 4 ?Negative ? 5-9 ? Indeterminate ? > or = 10 ?? Positive Sm Antibody <1.0 NEG <1.0 NEG AI 03/25/2024 12:23 PM EST [facility] SM/WINDING INSPECTOR Antibody <1.0 NEG <1.0 NEG AI 03/25/2024 12:23 PM EST [facility] WINDING INSPECTOR Antibody <1.0 NEG <1.0 NEG AI 03/25/2024 12:23 PM EST [facility] Chromatin Antibody 3.0 POS(A) <1.0 NEG 03/25/2024 12:23 PM EST [facility] Comment: ANTIBODY PREVALENCE IN TIER 1 ? [...] Sjogren's syndrome and 8% polymyositis. ?? Ribonucleoprotein (WINDING INSPECTOR) antibodies are to WINDING INSPECTOR A and/or WINDING INSPECTOR 68kD proteins; antibodies to one or both are present in >80% MCTD, 22% to 48% SLE, 14% systemic sclerosis, 12% Sjogren's and 8% polymyositis. ?? Sm/WINDING INSPECTOR antibodies are directed to epitopes formed in a complex of Sm and WINDING INSPECTOR; antibodies to the Sm/WINDING INSPECTOR complex are present in 54% to 94% MCTD, 30% SLE, 4% systemic sclerosis, and 9% Sjogren's and polymyositis. ?? Sm antibody is present in 20% to 30% SLE, 8% MCTD, 10% polymyositis, 0% systemic sclerosis and 4% Sjogren's syndrome. ?? Double stranded DNA, Chromatin, Ribonucleoprotein, Sm/WINDING INSPECTOR complex and Sm antibodies are present in <2% of normal blood donors. ?? [facility] [place] does not rule out autoimmune disease characterized by other autoantibody specificities such as rheumatoid arthritis, autoimmune hepatitis, primary biliary cirrhosis, autoimmune thyroiditis, Roane's disease, pernicious anemia, autoimmune neuropathies, vasculitis, celiac disease and bullous disease. Please contact your local [employer] laboratory if you are interested in additional testing. Blood Structure of peripheral vein / Unknown Venipuncture / Unknown 03/23/2024 4:48 PM EST 03/23/2024 5:31 PM EST Narr[facility] - 03/25/2024 12:23 PM EST [facility] Received Date: Alonzo Persaud MD LAB BLOOD ORDERABLES Final Result [facility] [address] [facility] 3rd Floor, [place] [address], [facility] [address] [facility] [address]rd Floor, [place] [address], * (ABNORMAL) FELI, Titer and Pattern (03/23/2024 4:48 PM EST) FELI Titer 1 1:1280(H) titer 03/30/2024 4:22 PM EST [employer] Comment: ?Reference Range ?<1:40 ?Negative ?1:40-1:80 ?Low Antibody Level ?>1:80 ?Elevated Antibody Level FELI Pattern 1 Nuclear, Homogeneo (A) 03/30/2024 4:22 PM EST [employer] Comment: Homogeneous pattern is associated with systemic lupus erythematosus (SLE), drug-induced lupus and juvenile idiopathic arthritis. AC-1: Homogeneous International Consensus on FELI Patterns (https://doi.org/10.1515/ebsy-8701-1782) Blood Structure of peripheral vein / Unknown Venipuncture / Unknown 03/23/2024 4:48 PM EST 03/23/2024 5:31 PM EST Narr[facility] - 03/30/2024 4:22 PM EST [facility] Received Date:[id number] Alonzo Persaud MD LAB BLOOD ORDERABLES Final Result [facility] [address] [facility] [address] [facility], [place] [address], [place] [phone] [facility] [address] [facility] 3rd Floor, [place] [address], [place] [phone] * (ABNORMAL) Buckeye & Lambda, Free w/Ratio (03/23/2024 4:48 PM EST) Pathologist [facility] Buckeye Light Chain, Free, Serum 99.6(H) 3.3 - 19.4 mg/L 03/24/2024 3:56 PM EST [facility] Lambda Light Chain, Free, Serum 60.2(H) 5.7 - 26.3 mg/L 03/24/2024 3:56 PM EST [facility] Buckeye/Lambda Light Chains Free With Ratio 1.65 0.26 - 1.65 03/24/2024 3:56 PM EST [facility] Comment: Free kappa/lambda ratio in serum of [...] 4:48 PM EST 03/23/2024 5:31 PM EST [facility] - 03/24/2024 3:56 PM EST [facility] Received Date:[id number] Alonzo Persaud MD LAB BLOOD ORDERABLES Final Result [facility] [address] [facility] [address] [facility], [place] [address], [place] [phone] [facility] [address], [place] [address] [place] [address], [place] [phone] * (ABNORMAL) Protein Electrophoresis w/Reflex to Immunofixation, Serum (03/23/2024 4:48 PM EST) Pathologist [facility] Protein, Total 6.5 6.1 - 8.1 g/dL 03/25/2024 7:04 AM EST [facility] Albumin 3.0(L) 3.8 - 4.8 g/dL 03/25/2024 7:04 AM EST [employer] Alpha 1 Globulin 0.5(H) 0.2 - 0.3 g/dL 03/25/2024 7:04 AM EST [employer] Alpha 2 Globulin 0.9 0.5 - 0.9 g/dL 03/25/2024 7:04 AM EST [facility] Beta 1 Globulin 0.4 0.4 - 0.6 g/dL 03/25/2024 7:04 AM EST [employer] Beta 2 Globulin 0.4 0.2 - 0.5 g/dL 03/25/2024 7:04 AM EST [employer] Gamma Globulin 1.2 0.8 - 1.7 g/dL 03/25/2024 7:04 AM EST [facility] Interpretation See Comments 03/25/2024 7:04 AM EST [facility] Comment: Pattern consistent with an acute phase reaction Blood Structure of peripheral vein / Unknown Venipuncture / Unknown 03/23/2024 4:48 PM EST 03/23/2024 5:31 PM EST Narrative [facility] - 03/25/2024 7:04 AM EST [facility] Received Date: us Alonzo Persaud MD LAB BLOOD ORDERABLES Final Result PHILLIP ROSARIO [address] [facility] 3rd Floor, [place] [address], [place] [phone] [facility] [address], [place] [address], [place] [phone] * Cyclic Citrullinated Peptide (CCP) Antibody, IgG (03/23/2024 4:48 PM EST) Cyclic Citrullinated Peptide (CCP) Ab (IgG) <16 UNITS 03/25/2024 2:15 PM EST [employer] Comment: Reference Range Negative: ?<20 Weak Positive: ? 20-39 Moderate Positive: ?? 40-59 Strong Positive: ? >59 Blood Structure of peripheral vein / Unknown Venipuncture / Unknown 03/23/2024 4:48 PM EST 03/23/2024 5:31 PM EST Narrative [facility] - 03/25/2024 2:15 PM EST [facility] Received Date: Alonzo Persaud MD LAB BLOOD ORDERABLES Final Result [facility] [address] [facility] 3[address] Floor, [place] [address], [employer] 200 [facility] 3rd Floor, [place] [address], * Lyme Antibody Screen w/Reflex to Blot (03/23/2024 4:48 PM EST) [facility] Lyme Ab Screen <0.90 index 03/24/2024 11:29 AM EST [employer] Comment: ? Index ?Interpretation ? ----- ? [...] 4:48 PM EST 03/23/2024 5:31 PM EST [facility] - 03/24/2024 11:29 AM EST [facility] Received Date: Alonzo Persaud MD LAB BLOOD ORDERABLES Final Result [facility] [address] [facility] [address] Floor, [place] [address], [facility] 200 [facility] 3rd Floor, [place] [address], * (ABNORMAL) FELI Screen, IFA, w/Reflex to Titer & Pattern (03/23/2024 4:48 PM EST) [facility] FELI Screen, IFA POSITIVE (A) NEGATIVE 03/30/2024 4:21 PM EST [facility] Comment: FELI IFA is a first line screen for detecting the presence of up to approximately 150 autoantibodies in various autoimmune diseases. A positive FELI IFA result is suggestive of autoimmune disease and reflexes to titer and pattern. Further laboratory testing may be considered if clinically indicated. For additional information, please refer to http://education.Meme.Tivoli Audio/faq/PYT404 (This link is being provided for informational/ educational purposes only.) ?? Blood Structure of peripheral vein / Unknown Venipuncture / Unknown 03/23/2024 4:48 PM EST 03/23/2024 5:31 PM EST Narrative [facility] - 03/30/2024 4:21 PM EST [facility] Received Date: us Alonzo Persaud MD LAB BLOOD ORDERABLES Final Result Performing Organization Address City/[facility]/ZIP Co de Phone Number [facility] [address] [facility] [address] [facility], [place] [address], [place] [phone] [facility] 200 [facility] [address] [facility], [place] [address], [place] [phone] * Urine Culture, Routine (03/23/2024 4:48 PM EST) [facility] Culture Mixed genital zachary isolated. These superficial bacteria are not indicative of a urinary tract infection. No further organism identification is warranted on this specimen. 03/24/2024 5:21 PM EST [facility] Urine Urine specimen collection, clean catch / Unknown Non-Blood Collection / Unknown 03/23/2024 4:48 PM EST 03/23/2024 6:19 PM EST Narrative [facility] - 03/24/2024 5:21 PM EST [facility] Received Date: MICRO NUMBER: [id number] SPECIMEN QUALITY: Adequate SOURCE: URINE CLEAN CATCH STATUS: FINAL If clinically indicated, recollect clean-catch, mid-stream urine and transfer immediately to Urine Culture Transport Tube. us Alonzo Persaud MD LAB MICROBIOLOGY - GENERAL ORDERABLES Final Result Performing Organization Address City/[facility]/ZIP Co de Phone Number PHILLIP ROSARIO [address] [facility] [address]rd Floor, [place] [address], [place] [phone] [facility] [address], [place] [address], [place] [phone] * (ABNORMAL) FELI Specific Antibody w/Reflex to [place] (03/23/2024 4:48 PM EST) [facility] FELI Screen, Immunoassay POSITIVE (A) NEGATIVE 03/25/2024 12:23 PM EST [facility] Comment: A positive FELI Multiplex indicates the presence of detectable antibodies to one or more of the component analytes consisting of double stranded DNA (dsDNA), chromatin, ribonucleoprotein (WINDING INSPECTOR), Mojica/WINDING INSPECTOR (Sm/WINDING INSPECTOR), Mojica (Sm), SS-A, SS-B, Bozena-1, centromere B, Scl-70 and ribosomal P. Further laboratory testing may be considered if clinically indicated. For additional information, please refer to http://education.Neptune Software [employer]/faq/XSK393 (This link is being provided for informational/ educational purposes only.) ?? Blood Structure of peripheral vein / Unknown Venipuncture / Unknown 03/23/2024 4:48 PM EST 03/23/2024 5:31 PM EST Narrative [facility] - 03/25/2024 12:23 PM EST [facility] Received Date: Alonzo Persaud MD LAB BLOOD ORDERABLES Final Result Performing Organization Address City/[facility]/ZIP Co de Phone Number [facility] [address] [facility] [address] [facility], [place] [address], [place] [phone] [facility] [address], [place] [address], [place] [phone] * (ABNORMAL) Lactate Dehydrogenase (03/23/2024 4:48 PM EST) [facility] LDH 285(H) 135 - 225 U/L 03/23/2024 6:41 PM EST [facility] Blood Structure of peripheral vein / Unknown Venipuncture / Unknown 03/23/2024 4:48 PM EST 03/23/2024 5:31 PM EST Alonzo Persaud MD LAB BLOOD ORDERABLES Final Result [facility] [address] [place] [address], [place] * Gamma Glutamyl Transferase (03/23/2024 4:48 PM EST) GGT 35 5 - 61 U/L 03/23/2024 6:09 PM EST [facility] Blood Structure of peripheral vein / Unknown Venipuncture / Unknown 03/23/2024 4:48 PM EST 03/23/2024 5:31 PM EST Alonzo Persaud MD LAB BLOOD ORDERABLES Final Result [facility] [address] [place] [address], [place] * (ABNORMAL) IgA (03/23/2024 4:48 PM EST) Immunoglobulin A 319(H) 47 - 310 mg/dL 03/24/2024 8:01 AM EST [facility] Blood Structure of peripheral vein / Unknown Venipuncture / Unknown 03/23/2024 4:48 PM EST 03/23/2024 5:31 PM EST Narrative [facility] - 03/24/2024 8:01 AM EST [facility] Received Date: Alonzo Persaud MD LAB BLOOD ORDERABLES Final Result Performing Organization Address City/[facility] Co de Phone Number [facility] [address] [facility] [address] [facility], [place] [address], [place] [phone] [facility] 200 [facility] 3rd Floor, [place] [address], [place] [phone] * IgM (03/23/2024 4:48 PM EST) Immunoglobulin M 80 50 - 300 mg/dL 03/24/2024 8:01 AM EST [facility] Blood Structure of peripheral vein / Unknown Venipuncture / Unknown 03/23/2024 4:48 PM EST 03/23/2024 5:31 PM EST Narrative [facility] - 03/24/2024 8:01 AM EST [facility] Received Date: Alonzo Persaud MD LAB BLOOD ORDERABLES Final Result [facility] [address] [facility] 3rd Floor, [place] [address], [place] [phone] [facility] [employer] [facility] 200 [facility] 3rd Floor, [place] [address], [place] [phone] * IgG (03/23/2024 4:48 PM EST) IgG, Serum 1448 600 - 1640 mg/dL 03/24/2024 8:01 AM EST [facility] Blood Structure of peripheral vein / Unknown Venipuncture / Unknown 03/23/2024 4:48 PM EST 03/23/2024 5:31 PM EST Narrative [facility] - 03/24/2024 8:01 AM EST [facility] Received Date: Alonzo Persaud MD LAB BLOOD ORDERABLES Final Result Performing Organization Address City/[facility]/ZIP Co de Phone Number [facility] [address] [facility] [address] [facility], [place] [address], [place] [phone] [facility] [address], [place] [address], [place] [phone] * Ferritin (03/23/2024 4:48 PM EST) Ferritin 279.0 11.0 - 306.0 ng/mL 03/23/2024 6:09 PM EST [facility] Blood Structure of peripheral vein / Unknown Venipuncture / Unknown 03/23/2024 4:48 PM EST 03/23/2024 5:31 PM EST Alonzo Persaud MD LAB BLOOD ORDERABLES Final Result [facility] [address] [place] [address], [place] * XR Hips Bilateral 5+ vw [...] obtain the completed interpretation. ? Workstation ID: [id number] Narrative 03/23/2024 6:11 PM EST COMPARISON: None. ?? Resulting Agency Comment [id number] Procedure Note Augusto Buck MD - 03/23/2024 [...] possible to obtain thecompleted interpretation. Workstation ID: [id number] us Alonzo Persaud MD IMG XR PROCEDURES [...] obtain the completed interpretation. ? Workstation ID: [id number] Narrative 03/23/2024 6:11 PM EST COMPARISON: None. ?? Resulting Agency Comment [id number] Procedure Note Augusto Buck MD - 03/23/2024 [...] possible to obtain thecompleted interpretation. Workstation ID: [id number] us Alonzo Persaud MD IMG XR PROCEDURES [...] obtain the completed interpretation. ? Workstation ID: [id number] Narrative 03/23/2024 6:11 PM EST COMPARISON: None. ?? Resulting Agency Comment [id number] Procedure Note Augusto Buck MD - 03/23/2024 [...] possible to obtain thecompleted interpretation. Workstation ID: [id number] us Alonzo Persaud MD IMG XR PROCEDURES [...] obtain the completed interpretation. ? Workstation ID: [id number] Narrative 03/23/2024 6:11 PM EST COMPARISON: None. ?? Resulting Agency Comment [id number] Procedure Note Augusto Buck MD - 03/23/2024 [...] possible to obtain thecompleted interpretation. Workstation ID: [id number] us Alonzo Persaud MD IMG XR PROCEDURES [...] obtain the completed interpretation. ? Workstation ID: [id number] Up-to-date CT equipment and radiation dose reduction [...] in the spine. ?? Resulting Agency Comment [id number] Procedure Note Wendi Hollingsworth MD - 02/18/2024 [...] possible to obtain thecompleted interpretation. Workstation ID: [id number] Up-to-date CT equipment and radiation dose reduction techniques wereemployed. CTDIvol: 20.1 mGy. DLP: 572 mGy-cm. Alonzo Persaud MD [facility] CT PROCEDURES Final Re sult * Hepatitis C Antibody w/Reflex to HCV RNA, Quantitative PCR (06/04/2022 5:43 PM EDT) Hepatitis C Antibody NON-REACT BETO NON-REACT BETO 06/05/2022 3:44 AM EDT [employer] Signal To Cut-Off 0.02 <1.00 06/05/2022 3:44 AM [employer] CR[employer] Comment: HCV antibody was non-reactive. There is no laboratory evidence of HCV infection. In most cases, no further action is required. However, if recent HCV exposure is suspected, a test for HCV RNA (test code 38326) is suggested. For additional information please refer to http://education.Dilon Technologies/faq/VMT25z4 (This link is being provided for informational/ educational purposes only.) Blood Structure of peripheral vein / Unknown Venipuncture / Unknown 06/04/2022 5:43 PM EDT 06/04/2022 6:08 PM EDT Narrative [facility] - 06/05/2022 3:44 AM EDT [facility] Received Date:[id number] us Alonzo Persaud MD LAB BLOOD ORDERABLES Final Result [facility] [address] [facility] 3rd Floor, [place] [address], [place] [phone] [facility] 200 [facility] 3rd Floor, [place] [address], [place] [phone] from Last 3 Months or Most Recently Relevant to Health Maintenance Insurance [facility] [place] [id number] Care Teams Manager Merchandise Relationship Specialty Start Date End Date Cristian Chacon MD [address] [place] [address] PCP - General 06/04/22
--- OUTSIDE RECORDS SUMMARY | 2024-05-03 13:55 | XMS_ITS | Encounter Summary ---
Author Organization [employer] Address [address] [place] [address] Care Team Providers Care Digital Solutions Architect Name Role Phone Cristian Chacon Primary Care Provide r Reason for Visit * Reason Comments Weakness - Generalized Encounter Details Date Type Department Care Team ([facility] st Contact Info) Description 04/13/2024 10:47 PM EST - 04/14/2024 3:00 AM EST Emergency [facility] Emergency [address] [place] [address] Seth Jason MD [address] [place] [address] URI due to influenza A virus (Primary [...] a primary care physician, please call the [facility] at [phone] [facility] a new primary care physician. Please return to the emergency department if you develop any severe change in your symptoms, or if you experience any other new or worsening symptoms or concerns. * Attachments The following attachments cannot be sent through Care Everywhere. * Chest Pain: Musculoskeletal (Armenian) * Influenza (Armenian) documented in this encounter Medications at Time [...] pharmacy. All instructions understood prior to discharge. Cripple Worker: Sophia ID #[id number] * Ambika Merino RN - 04/13/2024 12:40 [...] Date Anxiety Asthma Bronchitis Depression Diabetes mellitus ([facility]) Fibromyalgia Gastritis GERD (gastroesophageal reflux disease) Hypertension Lupus (systemic lupus erythematosus) ([facility]) Migraine Pneumonia Past Surgical History: Procedure Laterality [...] Detected Narrative: Testing was performed using the [employer] Respiratory Pathogen PCR Assay. All results must [...] Procedure Abnormality Status --------- ------ CBC auto differential[[id number]] Abnormal Final result Please view results for these tests on the individual orders. Abnormal Labs Reviewed RESPIRATORY VIRUS PANEL MOLECULAR STUDY - Abnormal; Notable for the following components: Result Value Influenza A H3 Detected (*) All other components within normal limits Narrative: Testing was performed using the [employer] Respiratory Pathogen PCR Assay. All results must [...] Given 04/14/2457) ED Course as of 04/14/24237 [facility] Apr 13, 2024 2346 Patient seen [...] LAB HEMETOLOGY METHOD 04/14/2024 1:27 AM EST [facility] RBC 4.10 3.80 - 4.80 M/mcL LAB HEMETOLOGY METHOD 04/14/2024 1:27 AM EST [facility] Hemoglobin 11.9 11.5 - 16.0 [...] LAB HEMETOLOGY METHOD 04/14/2024 1:27 AM EST [facility] Basophils Relative 0.4 % LAB HEMETOLOGY METHOD 04/14/2024 1:27 AM [facility] Immature Granulocytes Relative 0.9 % LAB HEMETOLOGY METHOD 04/14/2024 1:27 AM [facility] Neutrophils Absolute 4.53 1.50 - 7.00 K/mcL LAB HEMETOLOGY METHOD 04/14/2024 1:27 AM EST [facility] Lymphocytes Absolute 0.63(L) 1.00 - 5.00 K/mcL LAB HEMETOLOGY METHOD 04/14/2024 1:27 AM EST [facility] Monocytes Absolute 0.22 0.20 - 1.00 K/mcL LAB HEMETOLOGY METHOD 04/14/2024 1:27 AM [facility] Eosinophils Absolute 0.20 0.00 - 0.50 K/mcL LAB HEMETOLOGY METHOD 04/14/2024 1:27 AM EST [facility] Basophils Absolute 0.02 0.00 - [...] NELSON LAB BLOOD ORDERABLES Final Resul t [facility] [address] [place] [address], * Troponin I high sensitivity (04/14/2024 12:55 AM EST) High Sensitivity Troponin I 9 <=54 ng/L LAB CHEMISTRY METHOD 04/14/2024 1:47 AM EST [facility] Blood Venous blood specimen / Unknown Venipuncture / Unknown 04/14/2024 12:55 AM EST 04/14/2024 1:22 AM EST Narrative [facility] - 04/14/2024 1:47 AM EST High levels of biotin in samples may falsely decrease hsTroponin values. ??Use caution when interpreting hsTroponin results in patients taking biotin who exhibit renal impairment (eGFR <60) or in patients taking more than 20 mg/day of biotin. Ashley Melo [place] LAB BLOOD ORDERABLES Final Resul t Performing Organization Address [facility] Co de Phone Number [facility] [address] [place] [address], [place] [phone] * Lipase (04/14/2024 12:55 AM EST) Lipase 58 13 - 75 unit/L LAB CHEMISTRY METHOD 04/14/2024 2:14 AM EST [facility] Blood Venous blood specimen / Unknown Venipuncture / Unknown 04/14/2024 12:55 AM EST 04/14/2024 1:22 AM EST [facility] BLOOD ORDERABLES Final Resul t Performing Organization Address [facility]/ZIP Co de Phone Number [facility] [address] [place] [address], [place] [phone] * (ABNORMAL) Comprehensive metabolic panel (04/14/2024 12:55 AM EST) Sodium 135 133 - 145 mmol/L LAB CHEMISTRY METHOD 04/14/2024 2:14 AM EST [facility] Potassium 4.2 3.5 - 5.5 mmol/L LAB CHEMISTRY METHOD 04/14/2024 2:14 AM EST [facility] Chloride 101 96 - 110 [...] LAB CHEMISTRY METHOD 04/14/2024 2:14 AM EST [facility] Total Bilirubin 0.4 0.0 - 1.4 mg/dL LAB CHEMISTRY METHOD 04/14/2024 2:14 AM EST [facility] Blood Venous blood specimen / Unknown Venipuncture / Unknown 04/14/2024 12:55 AM EST 04/14/2024 1:22 AM EST [facility] [employer] [place] LAB BLOOD ORDERABLES Final Resul t [facility]) [facility] [address] [place] [address], [place] [phone] * ECG 12 lead (04/14/2024 12:41 AM EST) Ventricular Rate ECG 102 BPM G[facility] Atrial Rate 102 BPM [facility] P-R Interval 118 ms [facility] QRS Duration 66 ms G[facility] Q-T Interval 326 ms GEMUSE QTc 424 ms GEMUSE P Wave [place] 37 degrees GEMUSE R [place] 15 degrees GEMUSE T [place] 29 degrees GEMUSE ECG Interpretation Sinus tachycardia Low voltage QRS Borderline ECG When compared with ECG of 19-MAR-2024 13:38, No significant change was found Confirmed by KIMBERLY WARNER ([id number]) on 04/17/2024 8:42:22 AM GEM[facility] 04/14/2024 12:4 1 AM EST 04/17/2024 8:42 AM EST [employer] PA ECG ORDERABLES Final Result [facility] * [...] Signed Date: 04/14/2024 07:59 ET Workstation ID: [id number] Transcribed By: Self Edit Transcribed Date: 04/14/2024 [...] Signed Date: 04/14/2024 07:59 ET Workstation ID: [id number] Transcribed By: Self Edit Transcribed Date: 04/14/2024 07:57 ET Seth Jason MD IMG XR PROCEDURES Final Result * (ABNORMAL) Respiratory virus panel molecular study (04/13/2024 1:02 PM EST) Pathologist [facility] Adenovirus Detection by [...] LAB MICROBIOLOGY METHOD 04/13/2024 2:09 PM EST [facility] Mycoplasma pneumo by PCR Not Detected Not Detected LAB MICROBIOLOGY METHOD 04/13/2024 2:09 PM EST [facility] Chlamydia pneumoniae Not Detected Not Detected LAB MICROBIOLOGY METHOD 04/13/2024 2:09 PM [facility] SARS COV-2 Not Detected Not Detected LAB MICROBIOLOGY METHOD 04/13/2024 2:09 PM [facility] Swab Both anterior nares / Unknown Non-blood Collection / Unknown 04/13/2024 1:02 PM EST 04/13/2024 1:02 PM EST [facility] - 04/13/2024 2:09 PM EST Testing was performed using the [employer] Respiratory Pathogen PCR Assay. All results must [...] MICROBIOLOGY - GEN ERAL ORDERABLES Final Result [facility] [address] [place] [address], documented in this encounter Visit Diagnoses Diagnosis [...] documented as of this encounter Care Teams Digital Solutions Architect Relationship Specialty Start Date End Date Cristian Chacon [address] [place], [place] PCP - General Internal Medicine 10/17/20 documented as of this encounter
--- OUTSIDE RECORDS SUMMARY | 2024-05-03 13:55 | XMS_ITS | Encounter Summary ---
Author Organization [facility] Address [address] [place] [address] Care Team Providers Care Integration Consultant Name Role Phone Cristian Chacon MD Primary Care Prov ider Encounter Details Date Type Department Care Team (Late Contact Info) Description 03/25/2024 Telephone [facility] Rheumatology [address] [place] [address] Sales Engineer [employer]ered Products: Alonzo Caputo MD [address] [place] [phone] Social History Tobacco Use Types Packs/Day Years [...] Description 06/01/2024 9:00 AM EDT Office Visit [facility] 4th floor Cardiology Medicine [address] [place] [address] Sales Engineer [employer] Products: Hemal Fritz MD [address] [place] [address] [phone] 08/02/2024 1:30 PM EDT Follow-Up [facility] [address] [place] [address] Sales Engineer [employer] Products: Morales Ramsey MD [address] [place] [phone] 08/16/2024 2:00 PM EDT Office Visit [facility] [address] [place] [address] Sales Engineer [employer] Products: Dennis Laguna MD [address] [place] [phone] Scheduled Procedures Name Priority Associated Diagnoses Date/Ti me ARTHROSCOPY, SHOULDER, WITH ROTATOR CUFF REPAIR Chronic left shoulder pain ARTHROSCOPY, SHOULDER, DEBRI RONAL, EXTENSIVE Chronic left shoulder pain ARTHROSCOPY, SHOULDER, BICEP S TENODESIS Chronic left shoulder pain documented as of this encounter Visit Diagnoses Not on filedocumented in this encounter Care Teams Integration Consultant Relationship Specialty Start Date End Date Cristian Chacon MD [address] [place] [phone] PCP - General 06/04/22 documented as of this encounter
--- OUTSIDE RECORDS SUMMARY | 2024-05-03 13:55 | XMS_ITS | Encounter Summary ---
Author Organization [employer] Address [address] [facility] 7t [place] [address] Care Team Providers Care Special Service Officer Name Role Phone Cristian Chacon MD Primary Care Prov ider Reason for Visit * Reason Comments Care Coordination Outreach Encounter Details Date Type Department Care Team (Latest Contact Info) Description 04/26/2024 Patient Outreach [facility] CHC MED & PEDS [address] [place], [place] [phone] Cristian Chacon MD [address] [place] [address] Care Coordination (Outreach) Social History Tobacco Use [...] outbound call to patient introducing herself from [facility], in regards to offering services. Patient's name and was confirmed. Patient agrees to participate in program. Appt. for initial assessment scheduled for 04/28/24 @ 1:00 PM. Patient willneed transportation for appointments. CHW reinforced direct contact information or CM for any additional questions or concerns and extended clinic hours on Mondays and Wednesdays, and Walk-In Urgent Care Located in [facility] of [facility]. Patient provided with after-hours line for [facility], , which offer night time triage service and option to transfer to credit verification clerk provider if needed. Patient verbalizes understanding, and able to repeat back to ad writer. documented in this encounter Plan of Treatment Upcoming Encounters Date Type Department Care Team ([facility] st Contact Info) Description 05/17/2024 1:30 PM EDT Office Visit [facility] MED & PEDS [address] [place], [place] [phone] Cristian Chacon MD [address] [place], [place] [phone] documented as of this encounter Visit Diagnoses Not on filedocumented in this encounter Additional Health Concerns Assessment Noted Time PHQ-9 Depression Total Score: 16 024 1:19 PM EDT documented as of this encounter Care Teams Special Service Officer Relationship Specialty Start Date End Date Cristian Chacon MD [address] [place] [address] PCP - General Internal Medicine 03/17/19 vIy Payne Pan PusherSupercharger Repair Supervisor 11/26/23 documented as of this encounter
--- OUTSIDE RECORDS SUMMARY | 2024-05-03 13:55 | XMS_ITS | Encounter Summary ---
Author Organization [facility] Address [address] [place] [address] Care Team Providers Care System Support Developer Name Role Phone Cristian Chacon MD Primary Care Prov ider Reason for Visit * Reason Onset Date Comments PAC Sick/Symptoms 04/08/2024 Encounter Details Date Type Department Care Team (Late st Contact Info) Description 04/08/2024 Telephone [facility] Rheumatology Clinic [address] [place], [place] [phone] Stage Rigger: Zaida Rust Telephone Intake, Staff PAC Sick/Symptoms [...] AM EST Reached out to pt via Egyptian speaking telephonic economic consultant # [id number]. Pt reports that she has been experiencing transient chest pain and b/l foot pain since 03/18/2024. Pt reports that the chest pain is new and that she has an appointment with a Tree Trimming Line Technician in [place] on 04/28/2024. Pt has been taking two [...] Rivas LPN - 04/12/2024 3:50 PM EST lock and dam repairer #[id number] - LMOM for pt to call back. [...] Description 06/01/2024 9:00 AM EDT Office Visit [facility] 4th floor Cardiology Medicine [address] [place] [address] Stage Rigger: Hemal Fritz MD [address] [place] [address] 08/02/2024 1:30 PM EDT Follow-Up [facility] Rheum Dermatology Clinic [address] [place] [address] Stage Rigger: Morales Ramsey MD [address] [place] [address] 08/16/2024 2:00 PM EDT Office Visit [facility] Allergy [facility] [address] [place] [address] Stage Rigger: Juan Ramon Vallejo, Dennis Whitlock MD [address] [place] [address] Scheduled Procedures Name Priority Associated Diagnoses Date/Ti me ARTHROSCOPY, SHOULDER, WITH ROTATOR CUFF REPAIR Chronic left shoulder pain ARTHROSCOPY, SHOULDER, DEBRI RONAL, EXTENSIVE Chronic left shoulder pain ARTHROSCOPY, SHOULDER, BICEP S TENODESIS Chronic left shoulder pain documented as of this encounter Visit Diagnoses Not on filedocumented in this encounter Care Teams System Support Developer Relationship Specialty Start Date End Date Cristian Chacon MD [address] [place] [address] PCP - General 06/04/22 documented as of this encounter
--- OUTSIDE RECORDS SUMMARY | 2024-05-03 13:55 | XMS_ITS | Encounter Summary ---
Author Organization [employer] Address [address] [address] 7t [place] [address] Care Team Providers Care Cylinder Press Operator Name Role Phone Cristian Chacon MD Primary Care Prov ider Encounter Details Date Type Department Care Team ([facility] st Contact Info) Description 04/13/2024 10:45 AM EST Office Visit [facility] CHC MED & PEDS [address] [place], [place] [phone] Cristian Chacon MD [address] [place] [address] Other chest pain (Primary Dx) Social History [...] was called and EMS transported pt to [facility]. No meds administered. Will check tomorrow for [...] 05/17/2024 1:30 PM EDT Office Visit [facility] CHC MED & PEDS [address] [place] [address] Cristian Chacon MD [address] [place] [address] documented as of this encounter Procedures Procedure Name Priority Date/Time Associated Diagnosis Comments ECG 12-LEAD Routine 04/13/2024 2:18 PM EST Other chest pain documented in this encounter Results * ECG 12 lead (04/13/2024 2:18 PM EST) Narrative Cristian Chacon MD - 04/13/2024 2:18 PM EST Supraventricular tachycardia [id number] us Cristian Martinez MD ECG ORDERABLES Fi nal Result documented in this encounter Visit Diagnoses Diagnosis Other chest pain- Primary documented in this encounter Additional Health Concerns Assessment Noted Time PHQ-9 Depression Total Score: 16 024 1:19 PM EDT documented as of this encounter Care Teams Cylinder Press Operator Relationship Specialty Start Date End Date Cirstian Chacon MD [address] [place] [address] PCP - General Internal Medicine 03/17/19 Ivy Payne Patient Accounts ManagerChiropractor Assistant 11/26/23 documented as of this encounter
--- OUTSIDE RECORDS SUMMARY | 2024-05-03 13:55 | XMS_ITS | Encounter Summary ---
Author Organization [employer] Address [address] 7t [place] [address] Care Team Providers Care Public Services Librarian Name Role Phone Cristian Chacon MD Primary Care Prov ider Encounter Details Date Type Department Care Team ([facility] st Contact Info) Description 04/26/2024 11:00 AM EST Office Visit [facility] CHC MED & PEDS [address] [place], [place] [phone] Aida Rae MD [address] [place], [place] [phone] Moderate persistent asthma without complication (Primary Dx) [...] [facility] [address] [place] [address] Cristian Chacon MD [address] [place] [address] documented as of this encounter Visit Diagnoses Diagnosis Moderate persistent asthma without complication- Primary documented in this encounter Additional Health Concerns Assessment Noted Time PHQ-9 Depression Total Score: 16 024 1:19 PM EDT documented as of this encounter Care Teams Public Services Librarian Relationship Specialty Start Date End Date Cristian Chacon MD [address] [place] [address] PCP - General Internal Medicine 03/17/19 Ivy Payne Staff AnesthesiologistLeaf Sucker Operator 11/26/23 documented as of this encounter
--- OUTSIDE RECORDS SUMMARY | 2024-05-03 13:55 | XMS_ITS | Encounter Summary ---
Author Organization [employer] Address [address] [facility] 7t [place] [address] Care Team Providers Care Crm System Administrator Name Role Phone Cristian Chacon MD Primary Care Prov ider Reason for Visit * Reason Onset Date Comments Durable Medical Equipment 04/20/2024 Encounter Details Date Type Department Care Team ([facility] st Contact Info) Description 04/20/2024 Telephone [facility] CHC MED & PEDS [address] [place], [place] [phone] Cristian Chacon MD [address] [place] [address] Durable Medical Equipment Social History Tobacco Use [...] Upcoming Encounters Date Type Department Care Team ([facility] st Contact Info) Description 05/17/2024 1:30 PM EDT Office Visit [facility] MED & PEDS [address] [place] [address] Cristian Chacon MD [address] [place] [address] documented as of this encounter Visit Diagnoses Not on filedocumented in this encounter Additional Health Concerns Assessment Noted Time PHQ-9 Depression Total Score: 16 024 1:19 PM EDT documented as of this encounter Care Teams Crm System Administrator Relationship Specialty Start Date End Date Cristian Chacon MD [address] [place] [address] PCP - General Internal Medicine 03/17/19 Ivy Payne Visualization DeveloperBreaster 11/26/23 documented as of this encounter
--- OUTSIDE RECORDS SUMMARY | 2024-05-03 13:55 | XMS_ITS | Encounter Summary ---
Author Organization [employer] Address [address] 7t [place] [address] Care Team Providers Care Kindergarten Prep Teacher Name Role Phone Cristian Chacon MD Primary [...] 1:30 PM EDT Office Visit [facility] MED & PEDS [address] [place] [address] Cristian Chacon MD [address] [place] [address] documented as of this encounter Visit Diagnoses Not on filedocumented in this encounter Additional Health Concerns Assessment Noted Time PHQ-9 Depression Total Score: 16 024 1:19 PM EDT documented as of this encounter Care Teams Kindergarten Prep Teacher Relationship Specialty Start Date End Date Cristian Chacon MD [address] [place] [address] PCP - General Internal Medicine 03/17/19 Ivy Payne Business Computers TeacherVacuum Cleaner Operator 11/26/23 documented as of this encounter
--- OUTSIDE RECORDS SUMMARY | 2024-05-03 13:55 | XMS_ITS | Encounter Summary ---
Author Organization [employer] Address [address] 7t [place] [address] Care Team Providers Care Infrastructure Design Engineer Name Role Phone Cristian Chacon MD Primary [...] 1:30 PM EDT Office Visit [facility] MED & PEDS [address] [place] [address] Cristian Chacon MD [address] [place] [address] documented as of this encounter Visit Diagnoses Not on filedocumented in this encounter Additional Health Concerns Assessment Noted Time PHQ-9 Depression Total Score: 16 024 1:19 PM EDT documented as of this encounter Care Teams Infrastructure Design Engineer Relationship Specialty Start Date End Date Cristian Chacon MD [address] [place] [address] PCP - General Internal Medicine 03/17/19 Ivy Payne Digital AdvisorFour Corner Former Machine Operator 11/26/23 documented as of this encounter
--- OUTSIDE RECORDS SUMMARY | 2024-05-03 13:55 | XMS_ITS | Encounter Summary ---
Author Organization [employer] Address [address] [facility] 7t [place] [address] Care Team Providers Care Gas Main Fitter Name Role Phone Cristian Chacon MD Primary Care Prov ider Reason for Visit * Reason Comments Care Coordination Outreach Encounter Details Date Type Department Care Team (Latest Contact Info) Description 04/27/2024 Patient Outreach [facility] CHC MED & PEDS [address] [place], [place] [phone] Cristian Chacon MD [address] [place] [address] Care Coordination (Outreach) Social History Tobacco Use [...] at this time. LVM introducing herself from [facility] CM Department, reminding patient of initial assessment appt via telephone on 04/27/24 @ 1:00 PM with Adult Complex Care program services. Requested call back to , as well as for any additional questions or concerns. documented in this encounter Plan of Treatment Upcoming Encounters Date Type Department Care Team ([facility] st Contact Info) Description 05/17/2024 1:30 PM EDT Office Visit [facility] MED & PEDS [address] [place] [address] Cristian Chacon MD [address] [place] [address] documented as of this encounter Visit Diagnoses Not on filedocumented in this encounter Additional Health Concerns Assessment Noted Time PHQ-9 Depression Total Score: 16 024 1:19 PM EDT documented as of this encounter Care Teams Gas Main Fitter Relationship Specialty Start Date End Date Cristian Chacon MD [address] [place] [address] PCP - General Internal Medicine 03/17/19 Ivy Payne Raw Material HandlerExhibition Designer 11/26/23 documented as of this encounter
--- OUTSIDE RECORDS SUMMARY | 2024-05-03 13:55 | XMS_ITS | Encounter Summary ---
Author Organization [facility] Address [address] [place] [address] Care Team Providers Care Sign Language Translator Name Role Phone Cristian Chacon MD Primary Care Prov ider Reason for Visit * Reason Onset Date Comments PAC Patient Request Call Back 03/30/2024 PAC Clinical Questions 03/30/2024 Encounter Details Date Type Department Care Team ([facility] st Contact Info) Description 03/30/2024 Telephone [facility] Rheumatology Clinic [address] [place] [address] Credit Risk Analytics Manager: Alonzo Baez MD [address] [place], [place] [phone] PAC Patient Request Call Back; PAC Clinical [...] to how she is feeling please advise [phone] * Telephone Encounter - Payton Dewitt LPN - 03/30/2024 9:38 AM EST Spoke with patient in slovak stated she went to PCP on Thursday and they just looked at the cyst. She told them the Doctor gave her antibiotic and they didn't give her anything else. Stated she started feeling better after starting the antibiotic. On Thursday she was doing laundry was up and down the stairs but then Thursday she started feeling Chest pain and end up going to [facility] ER. After doing many test and giving her medication they sent her Home Thursday morning. She feels better. She is taking the the antibiotic since Thursday and also the prednisone 5mg BID on Thursday. Regards, Sushma documented in this encounter Plan of Treatment Upcoming Encounters Date Type Department Care Team (Late st Contact Info) Description 06/01/2024 9:00 AM EDT Office Visit [facility] 4th floor Cardiology Medicine [address] [place] [address] Credit Risk Analytics Manager: Hemal Fritz MD [address] [place] [address] 08/02/2024 1:30 PM EDT Follow-Up [facility] Rheum Dermatology Clinic [address] [place] [address] Credit Risk Analytics Manager: Mroales Ramsey MD [address] [place] [address] 08/16/2024 2:00 PM EDT Office Visit [facility] Lung and Allergy Center [address] [place] [address] Credit Risk Analytics Manager: Juan Ramon Vallejo, Dennis Whitlock MD [address] [place] [address] Scheduled Procedures Name Priority Associated Diagnoses Date/Ti me ARTHROSCOPY, SHOULDER, WITH ROTATOR CUFF REPAIR Chronic left shoulder pain ARTHROSCOPY, SHOULDER, DEBRI RONAL, EXTENSIVE Chronic left shoulder pain ARTHROSCOPY, SHOULDER, BICEP S TENODESIS Chronic left shoulder pain documented as of this encounter Visit Diagnoses Not on filedocumented in this encounter Care Teams Sign Language Translator Relationship Specialty Start Date End Date Cristian Chacon MD [address] [place] [address] PCP - General 06/04/22 documented as of this encounter
--- OUTSIDE RECORDS SUMMARY | 2024-05-03 13:55 | XMS_ITS | Encounter Summary ---
Author Organization [employer] Address [address] [facility] [address] [facility] [address] 7t [place] [address] Care Team Providers Care Manager Of Merchandising Name Role Phone Cristian Chacon MD Primary Care Prov ider Reason for Visit * Reason Onset Date Comments ER Follow-up 04/14/2024 Encounter Details Date Type Department Care Team ([facility] st Contact Info) Description 04/14/2024 Telephone [facility] MEDICINE [address] [place] [address] Cristian Chacon MD [address] [place] [address] ER Follow-up Social History Tobacco Use Types [...] EST TC [place] BLS [place] [id number] to status check after ER visit for [...] ED visit on : Date: 04/13 Hospital: [facility] Seen for: Asthma Attack Symptomatic No *if yes message should go to Triage Patient advised will forward to team nurse for follow up [phone] arabic documented in this encounter Plan of Treatment Upcoming Encounters Date Type Department Care Team (Late st Contact Info) Description 05/17/2024 1:30 PM EDT Office Visit [facility] CHC MED & PEDS [address] [place] [address] Cristian Chacon MD [address] [place], [place] [phone] documented as of this encounter Visit Diagnoses Not on filedocumented in this encounter Additional Health Concerns Assessment Noted Time PHQ-9 Depression Total Score: 16 024 1:19 PM EDT documented as of this encounter Care Teams Manager Of Merchandising Relationship Specialty Start Date End Date Cristian Chacon MD [address] [place] [address] PCP - General Internal Medicine 03/17/19 Ivy Payne Application TechnicianDegreasing Solution Mixer 11/26/23 documented as of this encounter
--- OUTSIDE RECORDS SUMMARY | 2024-05-03 13:56 | XMS_ITS | Encounter Summary ---
Author Organization [email or web address] Address [address] [facility] 7t [place] [address] Care Team Providers Care Store Receiver Name Role Phone Cristian Chacon MD Primary Care Prov ider Reason for Visit * Reason Comments Med Refill Encounter Details Date Type Department Care Team ([facility] Contact Info) Description 02/27/2024 Refill [facility] CHC MED & PEDS [address] [place], [place] [phone] Cristian Chacon MD [address] [place] [address] Social History Tobacco Use Types Packs/Day Years [...] Description 05/17/2024 1:30 PM EDT Office Visit [facility] CHC MED & PEDS [address] [place] [address] Cristian Chacon MD [address] [place] [address] documented as of this encounter Visit Diagnoses Not on filedocumented in this encounter Additional Health Concerns Assessment Noted Time PHQ-9 Depression Total Score: 16 024 1:19 PM EDT documented as of this encounter Care Teams Store Receiver Relationship Specialty Start Date End Date Cristian Chacon MD [address] [place] [address] PCP - General Internal Medicine 03/17/19 Ivy Payne Geologist PetroleumNursery Worker 11/26/23 documented as of this encounter
--- OUTSIDE RECORDS SUMMARY | 2024-05-03 13:56 | XMS_ITS | Encounter Summary ---
Author Organization [facility] Address [address] [place] [address] Care Team Providers Care Senior Compliance Officer Name Role Phone Cristian Chacon MD Primary Care Prov ider Reason for Referral * Consultation (Routine) - Pending Review Specialty Diagnoses / Procedures Referred By Lurdes sarmiento Referred To Contact Pulmonary Disease / Pulmonary Diagnoses Moderate persistent asthma, unspecified whether complicated Alonzo Persaud MD [address] [place] [address] Phone: tel: fax: [facility] [address] [place] [address] Phone: tel: fax: Referral ID Status Reason Start Date Expiration Date Visits Requested Visits Authorized [id number] Pending Review Specialty Services Required 04/20/2024 10/20/2025 6 6 * Consultation (Routine) - Pending Review Specialty Diagnoses / Procedures Referred By Lurdes sarmiento Referred To Contact Cardiology Diagnoses Chest pain, unspecified type Alonzo Persaud MD [address] [place] [address] Phone: tel: fax: [facility] Cardiology [address] [place] [address] Phone: tel: fax: Referral ID Status Reason Start Date Expiration Date Visits Requested Visits Authorized [id number] Pending Review Specialty Services Required 04/20/2024 10/20/2025 6 6 Reason for Visit * Reason Comments Follow-up * Consultation (Routine) - Authorized Specialty Diagnoses / Procedures Referred By Lurdes sarmiento Referred To Contact Rheumatology Diagnoses Arthritis Alonzo Persaud MD [address] [place] [address] Phone: tel: fax: Referral ID Status Reason Start Date Expiration Date V isits Requested Visits Authorized [id number] Authorized 11/03/2023 05/04/2025 6 6 Encounter Details Date Type Department Care Team (Late st Contact Info) Description 04/20/2024 9:00 AM EST Follow-Up [facility] Rheumatology Clinic [address] [place] [address] Wafer Fabrication Technician: Alonzo Baez MD [address] [place] [address] FELI positive (Primary Dx); Arthralgia, unspecified joint; [...] documented in this encounter Progress Notes * Alonzo Persaud MD - 04/22/2024 3:05 PM EST [...] -diagnosed with fibromyalgia. -was sent to a independent insurance adjuster Dr. Mcmahan at [facility]. They said that there was not much that they could do for fibromyalgia. She went back to [facility]. The doctor had labs done and hergastroenterologist in [place] also did lab work. Apparently, one of the tests came back positive for lupus. She then switched independent insurance adjuster to Dr. Smith. She had had some [...] in outside lab but when repeated at [facility] it was negative. Previously, the patient had [...] did not recall this. -was referred to [facility] ultrasound and she had synovial thickening of [...] cuff in need of surgery -Osteoarthritis and [id number] to her knee on x-rays -her workup [...] normal complements Interval History: We are using information technology account manager ollie #[id number]. Returns in followup. She took the antibiotics. [...] Clarity, Urine 04/20/2024 Clear Clear Final Specific [place], Urine 04/20/2024 1.024 1.005 - 1.030 Final [...] update lab work today. She wants a make up operator helper here at [facility] as well as a pulmonary person. [...] Description 06/01/2024 9:00 AM EDT Office Visit [facility] Building 4th floor Cardiology Medicine [address] [place] [address] [phone] Wafer Fabrication Technician: Hemal Fritz MD [address] [place] [address] 08/02/2024 1:30 PM EDT Follow-Up [facility] [address] [place] [address] Wafer Fabrication Technician: Morales Ramsey MD [address] [place] [address] 08/16/2024 2:00 PM EDT Office Visit [facility] [address] [place] [address] Wafer Fabrication Technician: Juan Ramon Vlalejo, Dennis Whitlock MD [address] [place] [address] Scheduled Procedures Name Priority Associated Diagnoses Date/Ti [...] of this encounter Results * Due to [place] state law, this organization might not be sharing negative HIV tests. * Procalcitonin (04/20/2024 9:23 AM EST) Procalcitonin <0.20 <0.20 ng/mL 04/22/2024 2:53 PM EST [facility] 00[facility] Comment: Verified by repeat analysis. Procalcitonin levels above 2.00 ng/mL on the first day of ICU admission represent a high risk for progression to severe sepsis and/or septic shock. Procalcitonin Comment See Comments 04/22/2024 2:53 PM EST [facility] 0091 Comment: Interpretation Guidelines Diagnosis of systemic [...] BLOOD ORDERABLES Final Result PHILLIP ROSARIO [address] [facility] 3rd Floor, [place] [address], [place] [phone] [facility] [place]- [address] [place] [address], [place] [phone] * Microalbumin, Random Urine with Creatinine (04/20/2024 9:23 AM EST) Microalbumin, Urine <2.0 mg/dL 04/20/2024 12:17 PM EST [facility] Creatinine, Urine 186 15 - 278 mg/dL 04/20/2024 12:17 PM EST [facility] Microalb/Creat Ratio, Random Urine 04/20/2024 12:17 PM EST [facility] Comment: < 1.0 mcg/mgCr Microalbumin Reference Range: Normal ? <30 mcg/mg Creatinine Microalbuminuria ? 30-300 mcg/mg Creatinine Clinical Albuminuria >300 mcg/mg Creatinine Reference: ADA Guideline. Diabetes Care. 2004;27 (suppl 1) Urine Voided urine specimen / Unknown Non-Blood Collection / Unknown 04/20/2024 9:23 AM EST 04/20/2024 9:39 AM EST Alonzo Persaud MD LAB URINE ORDERABLES Final Result Performing Organization Address City/[facility]/ZIP Co de Phone Number [facility] [address] [place] [address], [facility] [address] [place] [address], * (ABNORMAL) DNA Antibody (ds) Crithidia IFA w/Reflex (04/20/2024 9:23 AM EST) DNA Ab(ds) Crithidia, IFA Positive(A ) Negative 04/23/2024 12:26 PM EST [facility] ([place]) Blood Structure of peripheral vein / Unknown Venipuncture / Unknown 04/20/2024 9:23 AM EST 04/20/2024 9:38 AM EST Narrative [facility] - 04/23/2024 12:26 PM EST [facility] Received Date:[id number] us Alonzo Persaud MD LAB BLOOD ORDERABLES Final Result Performing Organization Address City/State/[facility] Co de Phone Number [facility] [address] [place] [address] 3rd Floor, [place] [address], [facility]IP LAO ([place]) [address] [place] [address], [place] * (ABNORMAL) DNA Antibody, Double-Stranded (04/20/2024 9:23 AM EST) DNA (Ds) Antibody 7(H) IU/mL 025 9:50 PM EST [facility] Comment: ? IU/mL ? Interpretation ? < or = 4 ?Negative ? 5-9 ? Indeterminate ? > or = 10 ?? Positive Blood Structure of peripheral vein / Unknown Venipuncture / Unknown 04/20/2024 9:23 AM EST 04/20/2024 9:38 AM EST Narrative [facility] - 04/21/2024 9:50 PM EST [facility] Received Date:[id number] us Alonzo Persaud MD LAB BLOOD ORDERABLES Final Result [facility] [address] [facility] 3rd Floor, [place] [address], [place] [phone] Vine [facility] [address] [address]rd Floor, [place] [address], [place] [phone] * (ABNORMAL) Comprehensive Metabolic Panel (04/20/2024 9:23 AM EST) NA 139 135 - 145 mmol/L 04/20/2024 10:34 AM EST [facility] K 3.8 3.5 - 5.3 mmol/L 04/20/2024 10:34 AM [facility] Cl 105 98 - 107 mmol/L 04/20/2024 10:34 AM [facility] CO2 24 22 - 32 mmol/L 04/20/2024 10:34 AM [facility] Anion Gap 10 5 - 15 04/20/2024 10:34 AM [facility] Glucose 177(H) 65 - 99 mg/dL 04/20/2024 10:34 AM [facility] Creatinine 0.73 0.50 - 1.20 mg/dL 04/20/2024 10:34 AM [facility] Calcium 8.4(L) 8.6 - 10.5 mg/dL 04/20/2024 10:34 AM [facility] Total Protein 6.9 6.0 - 8.0 g/dL 04/20/2024 10:34 AM [facility] Albumin 3.4(L) 3.5 - 5.2 g/dL 04/20/2024 10:34 AM [facility] Bilirubin, Total 0.3 0.2 - 1.2 mg/dL 04/20/2024 10:34 AM EST [facility] Alkaline Phosphatase 50 35 - 129 U/L 04/20/2024 10:34 AM EST [facility] AST 14 10 - 40 U/L 04/20/2024 10:34 AM EST [facility] ALT 11 10 - 40 U/L 04/20/2024 10:34 AM EST [facility] BUN 24(H) 7 - 23 mg/dL 04/20/2024 10:34 AM EST [facility] eGFR >90 >=60 mL/min/1. 73m2 04/20/2024 10:34 AM EST [facility] Comment:The estimated glomer ular [...] - 4.2 g/dL 04/20/2024 10:34 AM EST [facility] A/G Ratio 1.0(L) 1.5 - 3.0 04/20/2024 10:34 AM EST [facility] Blood Structure of peripheral vein / Unknown Venipuncture / Unknown 04/20/2024 9:23 AM EST 04/20/2024 9:38 AM EST us Alonzo Persaud MD LAB BLOOD ORDERABLES Final Result [facility] [address] [place] [address], [place] * (ABNORMAL) CBC Auto Differential (04/20/2024 9:23 AM EST) WBC 12.4(H) 3.8 - 10.8 10*3/uL 04/20/2024 9:47 AM [facility] RBC 4.34 3.80 - 5.10 10*6/uL 04/20/2024 9:47 AM [facility] Hemoglobin 12.3 11.7 - 15.5 g/dL 04/20/2024 9:47 AM [facility] Hematocrit 39.1 35.0 - 45.0 % 04/20/2024 9:47 AM [facility] MCV 90.1 80.0 - 100.0 fL 04/20/2024 9:47 AM [facility] MCH 28.3 27.0 - 33.0 pg 04/20/2024 9:47 AM [facility] MCHC 31.5(L) 32.0 - 36.0 g/dL 04/20/2024 9:47 AM [facility] RDW 13.4 11.0 - 15.0 % 04/20/2024 9:47 AM [facility] Platelets 351 140 - 400 10*3/uL 04/20/2024 9:47 AM [facility] MPV 9.4 7.5 - 12.5 fL 04/20/2024 9:47 AM [facility] Neutrophil % 88.3 % 04/20/2024 9:47 AM [facility] Immature Grans % 1.1(H) 0.0 - 0.9 % 04/20/2024 9:47 AM [facility] Lymphocyte % 6.1 % 04/20/2024 9:47 AM [facility] Monocyte % 4.1 % 04/20/2024 9:47 AM [facility] Eosinophil % 0.2 % 04/20/2024 9:47 AM EST [facility] Basophil % 0.2 % 04/20/2024 9:47 AM EST [facility] Neutrophil # 10.92(H) 1.50 - 7.80 10*3/uL 04/20/2024 9:47 AM EST [facility] Immature Grans # 0.14(H) <=0.03 10*3/uL 04/20/2024 9:47 AM EST [facility] Lymphocyte # 0.80(L) 0.85 - 3.90 10*3/uL 04/20/2024 9:47 AM EST [facility] Monocyte # 0.50 0.20 - 0.95 10*3/uL 04/20/2024 9:47 AM EST [facility] Eosinophil # <0.03 0.02 - 0.50 10*3/uL 04/20/2024 9:47 AM EST [facility] Basophil # <0.03 0.00 - 0.20 10*3/uL 04/20/2024 9:47 AM EST [facility] nRBC % 0.0 /100 WBCs 04/20/2024 9:47 AM EST [facility] nRBC # <0.01 <0.01 10*3/uL 04/20/2024 9:47 AM EST [facility] Blood Structure of peripheral vein / Unknown Venipuncture / Unknown 04/20/2024 9:23 AM EST 04/20/2024 9:38 AM EST us Alonzo Persaud MD LAB BLOOD ORDERABLES Final Result [facility] [address] [place] [address], [place] * (ABNORMAL) Creatine Kinase (04/20/2024 9:23 AM EST) CK 35(L) 38 - 206 U/L 04/20/2024 10:34 AM EST [facility] Blood Structure of peripheral vein / Unknown Venipuncture / Unknown 04/20/2024 9:23 AM EST 04/20/2024 9:38 AM EST us Alonzo Persaud MD LAB BLOOD ORDERABLES Final Result [facility] [address] [place] [address], * Complement C4 (04/20/2024 9:23 AM EST) Complement Component C4C 21 15 - 57 mg/dL 04/21/2024 4:22 AM EST Vine [facility] Blood Structure of peripheral vein / Unknown Venipuncture / Unknown 04/20/2024 9:23 AM EST 04/20/2024 9:38 AM EST Narrative [facility] - 04/21/2024 4:22 AM EST [facility] Received Date: Alonzo Persaud MD LAB BLOOD ORDERABLES Final Result Performing Organization Address City/[facility] Co de Phone Number [facility] [address] [facility] 3rd Floor, [place] [address], [place] [phone] Vine [facility] [address], [place] [address], [place] [phone] * Complement C3 (04/20/2024 9:23 AM EST) Complement Component C3C 101 83 - 193 mg/dL 04/21/2024 4:22 AM EST Vine [facility] Blood Structure of peripheral vein / Unknown Venipuncture / Unknown 04/20/2024 9:23 AM EST 04/20/2024 9:38 AM EST Narrative [facility] - 04/21/2024 4:22 AM EST [facility] Received Date:[id number] Alonzo Persaud MD LAB BLOOD ORDERABLES Final Result Performing Organization Address City/[facility]/ZIP Co de Phone Number [facility] ROSARIO [address] [facility] 3rd Floor, [place] [address], [place] [phone] Vine [facility] [address] [place] [address]rd [address], [place] [address], [place] [phone] * Sedimentation Rate (04/20/2024 9:23 AM EST) Sed Rate 23 <30 mm/Hr mm/Hr 04/20/2024 10:04 AM EST [facility] Blood Structure of peripheral vein / Unknown Venipuncture / Unknown 04/20/2024 9:23 AM EST 04/20/2024 9:38 AM EST Alonzo Persaud MD LAB BLOOD ORDERABLES Final Result Performing Organization Address City/[facility] Co de Phone Number [facility] [address] [place] [address], * (ABNORMAL) C-Reactive Protein (04/20/2024 9:23 AM EST) C Reactive Protein 10.5(H) <=9.9 mg/L 04/20/2024 10:34 AM EST [facility] Blood Structure of peripheral vein / Unknown Venipuncture / Unknown 04/20/2024 9:23 AM EST 04/20/2024 9:38 AM EST Alonzo Persaud MD LAB BLOOD ORDERABLES Final Result Performing Organization Address [facility] Co de Phone Number [facility] [address] [place] [address], documented in this encounter Visit Diagnoses Diagnosis FELI positive- Primary Arthralgia, unspecified joint Chest pain, unspecified type Moderate persistent asthma, unspecified whether complicated documented in this encounter Care Teams Senior Compliance Officer Relationship Specialty Start Date End Date Cristian Chacon MD [address] [place] [address] PCP - General 06/04/22 documented as of this encounter
--- OUTSIDE RECORDS SUMMARY | 2024-05-03 13:56 | XMS_ITS | Encounter Summary ---
Author Organization [facility] Address [address] [place] [address] Care Team Providers Care Radiology Equipment Servicer Name Role Phone Cristian Chacon MD Primary Care Prov ider Reason for Visit * Reason Onset Date Comments PAC Form/Letter/Records Request 04/21/2024 Encounter Details Date Type Department Care Team ([facility] st Contact Info) Description 04/21/2024 Telephone [facility] 4th floor Cardiology Medicine [address] [place] [address] Bill Collector: Mary Arriaga Telephone Intake, Staff PAC Form/Letter/Records [...] you at if we have any questions? [phone] PAC called out to book this appt with the pt, she is asking for an appt letter with the address, date/time and provider's name The address on file is correct and she can be reached at [phone] for any questions Thank you documented in this encounter Plan of Treatment Upcoming Encounters Date Type Department Care Team (Late st Contact Info) Description 06/01/2024 9:00 AM EDT Office Visit [facility] Building 4th floor Cardiology Medicine [address] [place] [address] Bill Collector: Hemal Fritz MD [address] [place] [address] 08/02/2024 1:30 PM EDT Follow-Up [facility] [address] [place] [address] Bill Collector: Morales Ramsey MD [address] [place] [address] 08/16/2024 2:00 PM EDT Office Visit [facility] [address] [place] [address] Bill Collector: Dennis Laguna MD [address] [place] [address] Scheduled Procedures Name Priority Associated Diagnoses Date/Ti me ARTHROSCOPY, SHOULDER, WITH ROTATOR CUFF REPAIR Chronic left shoulder pain ARTHROSCOPY, SHOULDER, DEBRI RONAL, EXTENSIVE Chronic left shoulder pain ARTHROSCOPY, SHOULDER, BICEP S TENODESIS Chronic left shoulder pain documented as of this encounter Visit Diagnoses Not on filedocumented in this encounter Care Teams Radiology Equipment Servicer Relationship Specialty Start Date End Date Cristian Chacon MD [address] [place] [address] PCP - General 06/04/22 documented as of this encounter
--- OUTSIDE RECORDS SUMMARY | 2024-05-03 13:56 | XMS_ITS | Encounter Summary ---
Author Organization [employer] Address [address] [facility] 7t [place] [address] Care Team Providers Care Manager Cardiology Name Role Phone Cristian Chacon MD Primary Care Prov ider Encounter Details Date Type Department Care Team (Late st Contact Info) Description 04/04/2024 3:30 PM EST Office Visit [facility] MED & PEDS [address] [place], [place] [phone] Cristian Chacon MD [address] [place] [address] Dietary counseling; Exercise counseling; Systemic lupus erythematosus, unspecified SLE type, unspecified organ involvement status (CMS/[facility]); Type 2 diabetes mellitus without complication, without long-term current use of insulin ([facility]); Asthma, unspecified asthma severity, unspecified whether complicated, [...] complication, without long-term current use of insulin ([facility]) Relevant Orders POCT Glucose (Completed) Systemic lupus erythematosus ([facility]) Other Visit Diagnoses Dietary counseling Exercise counseling documented in this encounter Plan of Treatment Upcoming Encounters Date Type Department Care Team (Late st Contact Info) Description 05/17/2024 1:30 PM EDT Office Visit [facility] MED & PEDS [address] [place], [place] [phone] Cristian Chacon MD [address] [place] [address] documented as of this encounter Procedures Procedure Name Priority Date/Time Associated Diagnosis Comments POCT GLUCOSE Routine 04/04/2024 4:00 PM EST Type 2 diabetes mellitus without complication, without long-term current use of insulin ([facility]) documented in this encounter Results * POCT [...] unspecified SLE type, unspecified organ involvement status ([facility]) Type 2 diabetes mellitus without complication, without long-term current use of insulin ([facility]) Asthma, unspecified asthma severity, unspecified whether complicated, unspecified whether persistent documented in this encounter Additional Health Concerns Assessment Noted Time PHQ-9 Depression Total Score: 16 024 1:19 PM EDT documented as of this encounter Care Teams Manager Cardiology Relationship Specialty Start Date End Date Cristian Chacon MD [address] [place] [address] PCP - General Internal Medicine 03/17/19 Ivy Payne Customer Solutions CoordinatorCarroter 11/26/23 documented as of this encounter
--- OUTSIDE RECORDS SUMMARY | 2024-05-03 13:56 | XMS_ITS | Encounter Summary ---
Author Organization [employer] Address [address] [facility] [address] 7t [place] [address] Care Team Providers Care Commercial Fisherman Name Role Phone Cristian Chacon MD Primary [...] Description 05/17/2024 1:30 PM EDT Office Visit [facility] MED & PEDS [address] [place] [address] Cristian Chacon MD [address] [place] [address] documented as of this encounter Visit Diagnoses Not on filedocumented in this encounter Additional Health Concerns Assessment Noted Time PHQ-9 Depression Total Score: 16 024 1:19 PM EDT documented as of this encounter Care Teams Commercial Fisherman Relationship Specialty Start Date End Date Cristian Chacon MD [address] [place] [address] PCP - General Internal Medicine 03/17/19 Ivy Payne Composite LaminatorRegulatory Lead 11/26/23 documented as of this encounter
--- OUTSIDE RECORDS SUMMARY | 2024-05-03 13:56 | XMS_ITS | Encounter Summary ---
Author Organization [employer] Address [address] [facility] 7t [place] [address] Care Team Providers Care Dietary Manager Name Role Phone Cristian Chacon MD Primary Care Prov ider Reason for Visit * Reason Onset Date Comments Nurse Triage 11/18/2022 Encounter Details Date Type Department Care Team (Late st Contact Info) Description 11/18/2022 Telephone [facility] MED & PEDS [address] [place], [place] [phone] Cristian Chacon MD [address] [place] [address] Nurse Triage Social History Tobacco Use Types [...] accepted this outcome Please contact pt at [phone] Cymraes Speaker documented in this encounter Plan of Treatment Upcoming Encounters Date Type Department Care Team (Late st Contact Info) Description 05/17/2024 1:30 PM EDT Office Visit [facility] MED [facility] PEDS [address] [place] [address] Cristian Chacon MD [address] [place] [address] documented as of this encounter Visit Diagnoses Not on filedocumented in this encounter Care Teams Dietary Manager Relationship Specialty Start Date End Date Cristian Chacon MD [address] [place] [address] PCP - General Internal Medicine 03/17/19 Ivy Payne Sales And Catering CoordinatorLocomotive Mechanic Apprentice 03/03/23 11/25/23 Ivy Payne Jewel Hole DrillerLocomotive Mechanic Apprentice 11/26/23 documented as of this encounter
--- OUTSIDE RECORDS SUMMARY | 2024-05-03 13:56 | XMS_ITS | Encounter Summary ---
Author Organization [employer] Address [address] [place] [address] Care Team Providers Care Drilling Field Professional Name Role Phone Cristian Chacon MD Primary Care Prov ider Encounter Details Date Type Department Care Team (Late st Contact Info) Description 05/03/2024 Orders Only GENERIC EXTERNAL DATA DEPARTMENT Provider, Generic External Data Social History Tobacco Use Types Packs/Day Years [...] Upcoming Encounters Date Type Department Care Team ([facility] st Contact Info) Description 05/17/2024 1:30 PM EDT Office Visit [facility] MED [facility] PEDS [address] [place], [place] [phone] Cristian Chacon MD [address] [place] [address] documented as of this encounter Procedures Procedure Name Priority Date/Time Associated Diagnosis Comments HIGH SENSITIVITY TROPONIN I Routine 05/03/2024 11:04 AM EST SARS COV2/INFLUENZA A/B AND RSV RNA QL NAAT Routine 05/03/2024 11:04 AM EST CBC WITH AUTO DIFFERENTIAL Routine 05/03/2024 11:04 AM EST C-REACTIVE PROTEIN Routine 05/03/2024 11 :04 AM EST B TYPE NATRIURETIC PEPTIDE (BNP) Routine 05/03/2024 11:04 AM EST MAGNESIUM Routine 05/03/2024 11:04 AM EST LIPASE Routine 05/03/2024 11:04 AM EST CREATINE KINASE, TOTAL Routine 05/03/2024 11:04 AM EST HEPATIC FUNCTION PANEL Routine 05/03/2024 11:04 AM EST BASIC METABOLIC PANEL Routine 05/03/2024 11:04 AM EST XR CHEST 1 VIEW Routine 05/03/2024 10:40 AM EST documented in this encounter Results * SARS-CoV-2 RNA, Influenza A/B, and RSV RNA, Ql NAAT (05/03/2024 11:04 AM EST) Influenza A PCR NEGATIVE Negative [facility] Influenza B PCR NEGATIVE Negative [facility] Resp Syncy Virus RNA Qual PCR NEGATIVE Negative [facility] SARS COV2 PCR NEGATIVE Negative [facility] Comment:All test results mus t [...] use by authorized laboratories.Testing performed on the [employer] GeneXpert utilizingreal-time RT-PCR.All SARS CoV2 and positive influenza A/B results arereported to [facility]. 05/03/2024 11:0 4 AM EST 05/03/2024 11:12 AM EST us Generic External Data Provider LAB MICROBIOLOGY - GENERAL ORDERABLES Final Result [facility] [address] [place] [phone] * High Sensitivity Troponin I (05/03/2024 11:04 AM EST) TROPONIN I HIGH SENSITIVITY <2.7 <3.5 - 17.0 ng/L [facility] Comment:The [facility] high sens itivity Troponin-I results should beused in conjunction with other diagnostic information suchas ECG, clinical observations and information, and patientsymptoms to aid in the diagnosis of RI. 05/03/2024 11:0 4 AM EST 05/03/2024 11:12 AM EST Generic External Data Provider LAB BLOOD ORDERAB LES Final Result Performing Organization Address [facility] Co de Phone Number [facility] [address] [place] [phone] * B Type Natriuretic Peptide (BNP) (05/03/2024 11:04 AM EST) Pathologist [facility] B Type Natriuretic Peptide 44 <100 pg/mL [facility] Comment:For those patients w ho are being treated with Natrecor(nesiritide, recombinant BNP), BNP testing should beperformed at least two hours post treatment in order toensure that only endogenous levels of BNP are detected. 05/03/2024 11:0 4 AM EST 05/03/2024 11:12 AM EST Generic External Data Provider LAB BLOOD ORDERAB LES Final Result Performing Organization Address [facility] Co de Phone Number [facility] [address] [place] [address] [phone] * Lipase (05/03/2024 11:04 AM EST) Pathologist [facility] Lipase 37 8 - 78 U/L [facility] 05/03/2024 11:0 4 AM EST 05/03/2024 11:12 AM EST Generic External Data Provider LAB BLOOD ORDERAB LES Final Result Performing Organization Address [facility] de Phone Number [facility] [address] [place] [address] [phone] * (ABNORMAL) C-reactive Protein (05/03/2024 11:04 AM EST) [facility] C Reactive Protein 3.79(H) < or = 0.50 mg/dL [facility] 05/03/2024 11:0 4 AM EST 05/03/2024 11:12 AM EST us Generic External Data Provider LAB BLOOD ORDERAB LES Final Result Performing Organization Address [facility] Co de Phone Number [facility] [address] [place] [phone] * Creatine Kinase, Total (05/03/2024 11:04 AM EST) Creatine Kinase Total 35 26 - 140 U/L [facility] 05/03/2024 11:0 4 AM EST 05/03/2024 11:12 AM EST us Generic External Data Provider LAB BLOOD ORDERAB LES Final Result Performing Organization Address [facility] de Phone Number [facility] [address] [place] [address] [phone] * Magnesium (05/03/2024 11:04 AM EST) Pathologist [facility] Magnesium 2.1 1.6 - 2.6 mg/dL [facility] 05/03/2024 11:0 4 AM EST 05/03/2024 11:12 AM EST Generic External Data Provider LAB BLOOD ORDERAB LES Final Result Performing Organization Address [facility] de Phone Number [facility] [address] [place] [phone] * (ABNORMAL) Basic Metabolic Panel (05/03/2024 11:04 AM EST) Sodium 140 135 - 145 mmol/L [facility] Potassium 3.5 3.3 - 5.1 mmol/L [facility] Chloride 108 96 - 108 mmol/L [facility] Carbon Dioxide 23 22 - 29 mmol/L [facility] Anion Gap 13 12 - 20 [facility] Urea Nitrogen (BUN) 18(H) 9 - 16 mg/dL [facility] Creatinine, Serum 0.70 0.5 - 1.4 mg/dL [facility] Creatinine Clr Calc Pharmacy 91.1 [facility] Comment:Provided height and weight: 152.4 cm,90.718 kg.eGFR (calculated from the MDRD study equation) and eCrCl(calculated from the Cockcroft-Gault equation) are based ondifferent parameters and may not yield comparable results.If eCrCl result is absurd, please check patient'sheight/weight. Estimated Glomerular Filt Rate >60 [facility] Comment:Chronic Kidney Disea se: Estimated GFR < 60 mL/min/1.81q0Xzqxlt Kidney Disease: Estimated GFR < 15 mL/min/1.73m2 Glucose 179(H) 60 - 115 mg/dL [facility] Calcium 8.6 8.4 - 10.2 mg/dL [facility] 05/03/2024 11:0 4 AM EST 05/03/2024 11:12 AM EST us Generic External Data Provider LAB BLOOD ORDERAB LES Final Result [facility] [address] [place] [address] [phone] * Hepatic Function Panel (05/03/2024 11:04 AM EST) Bilirubin, Total 0.5 0.0 - 1.0 mg/dL [facility] Bilirubin, Direct 0.2 0.0 - 0.5 mg/dL [facility] Aspartate Amino Transferase 14 5 - 31 U/L [facility] Alanine Aminotransferase 13 0 - 31 U/L [facility] Total Protein 7.0 6.5 - 8.0 g/dL [facility] Albumin Level 3.5 3.5 - 5.0 g/dL [facility] Alkaline Phosphatase 54 39 - 117 U/L [facility] 05/03/2024 11:0 4 AM EST 05/03/2024 11:12 AM EST us Generic External Data Provider LAB BLOOD ORDERAB LES Final Result [facility] [address] [place], [place] [phone] * (ABNORMAL) CBC auto differential (05/03/2024 11:04 AM EST) White Blood Count 8.1 4.8 - 10.8 X10*3/uL [facility] Red Blood Count 4.07(L) 4.20 - 5.50 X10*6/uL [facility] Hemoglobin 11.9(L) 12.0 - 16.0 g/dl [facility] Hematocrit 35.8(L) 37.0 - 47.0 % [facility] Mean Corpuscular Volume 88.0 80.0 - 98.0 fL [facility] Mean Corpuscular Hemoglobin 29.2 27.0 - 33.0 pg [facility] Mean Corpuscular HGB Conc 33.2 31.0 - 35.0 g/dl [facility] Red Cell Distribution Width 14.4 11.0 - 16.0 % [facility] Platelet Count 339 160 - 400 X10*3/uL [facility] Mean Platelet Volume 9.3(L) 9.4 - 12.3 fL [facility] Neutrophils Percent Auto 83.7(H) 45 - 73 % [facility] Imm Gran Pct Auto 0.6(H) 0.0 - 0.4 % [facility] Lymphocytes Percent Auto 11.5(L) 20 - 40 % [facility] Monocytes Percent Auto 3.6 2 - 11 % [facility] Eosinophils Percent Auto 0.5 0 - 4 % [facility] Basophils Percent Auto 0.1 0 - 2 % [facility] NRBC Pct Auto 0.0 0.0 - 0.2 /100WBC [facility] Neutrophils Absolute Auto 6.7 2.0 - 8.3 x10*3/uL [facility] Imm Gran Abs Auto 0.05(H) 0.00 - 0.03 X10*3/uL [facility] Lymphocytes Absolute Auto 0.9(L) 1.2 - 4.9 X10*3/uL [facility] Monocytes Absolute Auto 0.3 0.1 - 1.2 X10*3/uL [facility] Eosinophils Absolute Auto 0.0 0.0 - 0.4 X10*3/uL [facility] Basophils Absolute Auto 0.0 0.0 - 0.2 X10*3/uL [facility] NRBC Abs Auto 0.000 0.0 - 0.012 X10*3/uL [facility] 05/03/2024 11:0 4 AM EST 05/03/2024 11:12 AM EST us Generic External Data Provider LAB BLOOD ORDERAB LES Final Result Performing Organization Address City/State/[facility] Co de Phone Number [facility] [address] [place] [phone] * XR Chest 1 View (05/03/2024 10:40 AM EST) Anatomical Region Laterality Modality Chest Radiographic Amanda ging 05/03/2024 10:4 0 AM EST Narrative 05/03/2024 11:39 AM EST ? [facility] ?[address] ?[place] [address] ?XRay Report ? Signed ? Patient: Heri,Scarlett ?MR#: [id number] ?? [id number] ? : 1970 ?Acct:[id number] ? Age/Sex: 53 / F ?ADM Date: 05/03/24 ? Loc: HO.ED ? Attending Dr: ? Ordering Physician: Dana Montenegro DO ?? Date of Service: 05/03/24 ?? Procedure(s): XR chest 1V ?? Accession Number(s): [id number] ? cc: Cristian Chacon MD; Dana Montenegro [...] signed by Oli Schmidt MD in OV> ?05/03/246 ? DD/ 1040 ? TD/TT: 05/03/24 1100 ? Sticker On: MSM ? Procedure Note Donotuseinterpreter, Image - 05/03/[address] [address] XRay Report Signed Patient: Scarlett LirianoMR#: [id number] : 1970Acct:[id number] Age/Sex: 53 / FADM Date: 05/03/24 Loc: HO.ED Attending Dr: Ordering Physician: Dana Montenegro DO Date of Service: 05/03/24 Procedure(s): XR chest 1V Accession Number(s): [id number] cc: Cristian Chacon MD; Dana Montenegro DO [...] Oli Schmidt MD 05/03/2024 11:36 AM EST Dictated By: Oli Schmidt MD Signed By: <Electronically signed by Oli Schmidt MD in OV> 05/03/24 1136 DD/ 1040 TD/TT: 05/03/24 1100 Sticker On: LEATHA [facility] External Provider IMG XR PROCEDURES Final Result documented in this encounter Visit Diagnoses Not on filedocumented in this encounter Additional Health Concerns Assessment Noted Time PHQ-9 Depression Total Score: 16 12/21/ 024 1:19 PM EDT documented as of this encounter Care Teams Drilling Field Professional Relationship Specialty Start Date End Date Cristian Chacon MD [address] [place] [phone] PCP - General Internal Medicine 03/17/19 Ivy Payne Wet Pan OperatorTraveling Construction Superintendent 11/26/23 documented as of this encounter
--- OUTSIDE RECORDS SUMMARY | 2024-05-03 13:56 | XMS_ITS | Clinical Summary ---
Author Organization [facility] Address [address] [place] [address] Care Team Providers Care Right Of Way Manager Name Role Phone Unavailable Primary Care Provider [...]
--- OUTSIDE RECORDS SUMMARY | 2024-05-03 13:56 | XMS_ITS | Clinical Summary ---
Author Organization [facility] Address [address] [place] [address] Care Team Providers Care Production Control Supervisor Name Role Phone Dirk Mcdowell RD Primary Care Provider [phone] Source Comments PLEASE NOTE, if this patient [...] /3 mL (0.083 %) nebulizer solution Per it training specialist 0 5 Active FLOVENT HFA 220 mcg/actuation inhaler Per it training specialist 3 5 Active fluticasone (FLONASE) 50 mcg/actuation nasal spray Per it training specialist 3 5 Active hydrOXYzine (ATARAX) 25 mg tablet Per it training specialist 0 5 Active montelukast (SINGULAIR) 10 mg tablet Per it training specialist 3 5 Active terbinafine HCl (LAMISIL) 250 mg tablet Per it training specialist 1 5 Active ketoconazole (NIZORAL) 2 % cream Per it training specialist 3 5 Active metroNIDAZOLE (METROCREAM) 0.75 % cream Per it training specialist 3 5 Active traZODone (DESYREL) 50 mg tablet Per Psych 4 5 Active traMADol (ULTRAM) 50 mg tablet Per [facility] ER 0 5 Active cromolyn (OPTICROM) 4 % ophthalmic solution Per it training specialist 3 5 Active baclofen (LIORESAL) 10 [...] Date Diagnosed Date H/O mammogram 05.11.14 at [facility]. Normal. due Gavino h 201505/12/2014 Left ovarian cyst 07/14/2013 Overview (07/14/2013): S/P US PELVIS 07/04/13 DUE PELVIC PAIN. 2.9 X 3.8 X 3 CM LEFT ADNEXAL CYSTIC LESION, MOST LIKELY HEMORRHAGIC OVARIAN CYST. F/U PROP CUTTER Left carpal tunnel syndrome 06/22/2013 Vitamin D deficiency disease 02/03/2012 Overview (02/01/2013): =17. Allergic rhinitis due to allergen 2008 GERD (gastroesophageal reflux disease) 8 Hypothyroidism 05/13/2007 Overview (09/29/2013): + [facility] THYROID[facility], ENDO F/U with Dr Mcdowell Anxiety and depression 05/13/2007 Overview (02/01/2013): F/U [facility] (DR. NANCE). Insomnia 05/13/2007 Overview (02/01/2013): F/U AT [facility] (DR. NANCE). Mild persistent asthma 05/13/2007 [...] (2 - Td or Tdap) 10/14/2020 011 [id number] (4 - season) 2023 03/22/2021, 07/22/2020, 07/01/2020 [...] TSH CASCADE 2.25 0.40 - 4.00 uIU/ml [facility] Blood specimen (specimen) Blood / Unknown 03/06/2015 11:48 AM EST 03/06/2015 11:50 AM EST Narrative [facility] - 03/07/2015 1:30 PM EST [employer] [address] [place] [address] PT [place] [id number] ORD# [id number] Sophia Blue MD LAB - BLOOD RICH W Final Result Performing Organization Address [facility]/ZIP Co de Phone Number [facility] [address] [place] [address], [place] [phone] * (ABNORMAL) LIPID PANEL (11/24/2014 11:00 AM EDT) CHOLESTEROL 166 0 - 200 mg/dL [facility] TRIGLYCERIDES 86 0 - 150 mg/dL [facility] HDL CHOLESTEROL 46 >40 mg/dL [facility] LDL CALCULATED 103(H) 0 - 100 mg/dL [facility] TC-HDLC RATIO 3.6 0 - 4.4 mg/dL [facility] Blood specimen (specimen) Blood / Unknown 11/24/2014 11:00 AM EDT 11/24/2014 11:06 AM EDT Narrative [facility] - 11/24/2014 12:35 PM EDT [employer] [address] [place] [address] PT ID [id number] ORD# [id number] Sophia Blue MD LAB - BLOOD RICH W Final Result Performing Organization Address City/[facility]/ZIP Co de Phone Number [facility] [address] [place] [address], [place] [phone] * COMPRE METAB PANEL (11/24/2014 11:00 AM EDT) GLUCOSE 88 70 - 100 mg/dL [facility] Comment:Reference range appl icable to fasting specimens only BUN 22 5 - 25 mg/dL [facility] CREAT 0.67 0.5 - 1.1 mg/dL [facility] GLOMERULAR FILTRATION RATE > 60 [facility] Comment: If patient is -[place], multiply result by 1.21 Chronic Kidney Disease: < 60 ml/min/1.73 square meters Kidney Failure: < 15 ml/min/1.73 square meters SODIUM 140 133 - 145 mEq/L [facility] POTASSIUM 4.6 3.5 - 5.5 mEq/L [facility] CHLORIDE 105 96 - 110 mEq/L [facility] CO2 30 21 - 32 mEq/L [facility] ANION GAP 5 3 - 11 [facility] CALCIUM 9.6 8.5 - 10.5 mg/dL [facility] TOTAL PROTEIN 7.5 6.0 - 8.0 G/dL [facility] ALBUMIN 4.5 3.2 - 5.0 G/dL [facility] BILI, TOTAL 0.4 0.0 - 1.4 mg/dL [facility] SGOT 22 10 - 42 U/L [facility] SGPT 18 10 - 60 U/L [facility] ALK PHOS 74 42 - 121 U/L [facility] Blood specimen (specimen) Blood / Unknown 11/24/2014 11:00 AM EDT 11/24/2014 11:06 AM EDT Narrative [facility] - 11/24/2014 12:35 PM EDT [facility] [employer] [address] [place] [address] PT ID [id number] ORD# [id number] us Sophia Blue MD LAB - BLOOD DRA De Jesus Final Result [address] [address], * HEPATITIS A,B,C PANEL (09/29/2013 3:21 PM EDT) HEPATITIS B SURFACE ANTIBODY NEGATIVE NEGATIVE [facility] HEPATITIS B SURFACE ANTIGEN NEGATIVE NEGATIVE [facility] HEPATITIS C VIRUS ANTIBODY NEGATIVE NEGATIVE [facility] HEPATITIS A ANTIBODY TOTAL NEGATIVE NEGATIVE [facility] HEPATITIS B CORE ANTIBODY NEGATIVE NEGATIVE [facility] Blood specimen (specimen) Blood / Unknown 09/29/2013 3:21 PM EDT 09/29/2013 4:24 PM EDT [facility] - 09/29/2013 9:50 PM EDT [employer] [address] [place] [address] PT ID [id number] ORD# [id number] us Sophia Blue MD LAB - BLOOD RICH W Edited Result - Final [facility] [address] [place] [address], [place] [phone] * HIV-1 & HIV-2 ANTIBODIES (09/29/2013 3:21 PM EDT) HIV 1 AND 2 ANTIBODY SCREEN NEGATIVE NEGATIVE [facility] Blood specimen (specimen) Blood / Unknown 09/29/2013 3:21 PM EDT 09/29/2013 4:24 PM EDT [facility] - 09/30/2013 12:03 PM EDT [employer] [address] [place] [address] PT ID [id number] ORD# [id number] us Sophia Blue MD LAB - BLOOD RICH W Final Result [facility] [address] [place] [address], [place] [phone] from Last 3 Months or Most Recently Relevant to Health Maintenance Insurance [employer] Care Teams Production Control Supervisor Relationship Specialty Start Date End Date Dirk Mcdowell [phone] [place] [address] PCP - General Nutrition 08/02/15
--- OUTSIDE RECORDS SUMMARY | 2024-05-03 13:56 | XMS_ITS | Encounter Summary ---
Author Organization [employer] Address [address] [place] [address] Care Team Providers Care Welding Production Supervisor Name Role Phone Cristian Chacon MD Primary Care Prov ider Encounter Details Date Type Department Care Team (Late st Contact Info) Description 02/19/2024 Orders Only [facility] MED & PEDS [address] [place] [address] Provider, MD Roderick Social History Tobacco Use [...] [facility] MED [facility]ED[facility] [address] [place] [address] Cristian Chacon MD [address] [place] [address] documented as of this encounter Procedures Procedure [...] documented as of this encounter Care Teams Welding Production Supervisor Relationship Specialty Start Date End Date Cristian Chacon MD [address] [place] [address] PCP - General Internal Medicine 03/17/19 Ivy Payne News Production AssistantFuneral Director 11/26/23 documented as of this encounter
--- OUTSIDE RECORDS SUMMARY | 2024-05-03 13:56 | XMS_ITS | Encounter Summary ---
Author Organization [employer] Address [address] [place] [address] Care Team Providers Care Car Wrecker Name Role Phone Cristian Chacon MD Primary Care Prov ider Encounter Details Date Type Department Care Team (Late st Contact Info) Description 05/02/2024 Orders Only [facility] External Provider, [facility] Social History Tobacco Use Types Packs/Day Years [...] Upcoming Encounters Date Type Department Care Team ([facility] st Contact Info) Description 05/17/2024 1:30 PM EDT Office Visit [facility] MED & PEDS [address] [place] [address] Cristian Chacon MD [address] [place] [address] documented as of this encounter Procedures Procedure Name Priority Date/Time Associated Diagnosis Comments US PELVIS TRANSVAGINAL Routine 05/03/2024 9:16 AM EST documented in this encounter Results * US Pelvis Transvaginal (05/03/2024 9:16 AM EST) Anatomical Region Laterality Modality Pelvis Ultrasound 05/03/2024 9:16 AM EST Narrative 05/03/2024 9:18 AM EST ? [facility] ?[address] ?[place] [address] ? Ultrasound Report ? Signed ? Patient: Liriano,Scarlett ?MR#: [id number] ?? [id number] ? : 1970 ?Acct:[id number] ? Age/Sex: 53 / F ?ADM Date: 03/03/25 ? Loc: HO.US ? Attending Dr: Gavino Wynne MD ? Ordering Physician: Gavino Wynne MD ?? Date of Service: 05/02/24 ?? Procedure(s): US pelvic and transvaginal ?? Accession Number(s): [id number] ? cc: Saskia Rosas MD; Gavino Wynne [...] 0917 ? DD/ ? TD/TT: 05/03/2416 ? Drilling Engineer: ? Procedure Note Donotconinterpreter, Image - 05/03/2024 [place] [address] Ultrasound Report Signed Patient: Scarlett LirianoMR#: [id number] 354 : 1970Acct:[id number] Age/Sex: 53 / FADM Date: 05/02/24 Loc: HO.US Attending Dr: Gavino Wynne MD Ordering Physician: Gavino Wynne MD Date of Service: 05/02/24 Procedure(s): US pelvic and transvaginal Accession Number(s): [id number] cc: Saskia Rosas MD; Gavino Wynne MD [...] in OV> 05/03/24916 DD/ 5 TD/TT: 05/03/24915 Drilling Engineer: [facility] External Provider IMG US PROCEDURES Final Result documented in this encounter Visit Diagnoses Not on filedocumented in this encounter Additional Health Concerns Assessment Noted Time PHQ-9 Depression Total Score: 16 024 1:19 PM EDT documented as of this encounter Care Teams Car Wrecker Relationship Specialty Start Date End Date WylieCristian Cook MD [address] [place] [address] PCP - General Internal Medicine 03/17/19 Ivy Payne Strip Mine SupervisorLife Educator 11/26/23 documented as of this encounter
--- OUTSIDE RECORDS SUMMARY | 2024-05-03 13:56 | XMS_ITS | Encounter Summary ---
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 Pt stated she had not picked up the Benadryl yet for rash itchiness. She will do so. 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 She would like PCP to [...] Description 05/17/2024 1:30 PM EDT Office Visit [facility] MED & PEDS [address] [place] [address] Cristian Chacon MD [address] [place] [address] documented as of this encounter Visit Diagnoses Not on filedocumented in this encounter Care Teams Lump Roller Relationship Specialty Start Date End Date Cristian Chacon MD [address] [place] [address] PCP - General Internal Medicine 03/17/19 Ivy Payne Merchandise CoordinatorCattle And Wheat Farmer 03/03/23 11/25/23 Ivy Payne Oyster TongerCattle And Wheat Farmer 11/26/23 documented as of this encounter
--- OUTSIDE RECORDS SUMMARY | 2024-05-03 13:56 | XMS_ITS | Encounter Summary ---
Author Organization [employer] Address [address] [facility] 7t [place] [address] Care Team Providers Care Main Galley Scullion Name Role Phone Cristian Chacon MD Primary Care Prov ider Reason for Visit * Reason Comments Care Coordination Outreach Encounter Details Date Type Department Care Team (Latest Contact Info) Description 05/03/2024 Patient Outreach [facility] MED & PEDS [address] [place], [place] [phone] Cristian Chacon MD [address] [place] [address] Care Coordination (Outreach) Social History Tobacco Use [...] encounter Progress Notes * Savana Rico - 05/03/2024 9:53 AM EST CHW Savana Rico placed outbound call to patient in regards to rescheduling missed initial assessment appointment on 04/28/24 for Adult Complex Care program services. Patient???s name and were confirmed. Initial Assessment appointment scheduled for 05/05/24 at 3:00 PM. CHW will set up an appointment reminder and will notify CM. CHW provided contact information of [phone] for any questions or concerns. documented in this encounter Plan of Treatment Upcoming Encounters Date Type Department Care Team ([facility] Contact Info) Description 05/17/2024 1:30 PM EDT Office Visit [facility] MED & PEDS [address] [place] [address] Cristian Chacon MD [address] [place] [address] documented as of this encounter Visit Diagnoses Not on filedocumented in this encounter Additional Health Concerns Assessment Noted Time PHQ-9 Depression Total Score: 16 024 1:19 PM EDT documented as of this encounter Care Teams Main Galley Scullion Relationship Specialty Start Date End Date Cristian Chacon MD [address] [facility] [place] [address] PCP - General Internal Medicine 03/17/19 Ivy Payne Acute Dialysis Registered NurseCandy Maker 11/26/23 documented as of this encounter
--- OUTSIDE RECORDS SUMMARY | 2024-05-03 13:56 | XMS_ITS | Encounter Summary ---
Author Organization [facility] Address [address] [place] [address] Care Team Providers Care Taxation Inspector Name Role Phone Cristian Chacon MD Primary Care Prov ider Reason for Visit * Reason Onset Date Comments Rosacea 08/09/2021 Pt is calling to schedule a new pt apt for rosacea. Please call pt at [phone] Encounter Details Date Type Department Care Team ([facility] Contact Info) Description 08/09/2021 Telephone [facility] Central Scheduling Department [address] [place] [address] Telephone Intake, Staff Cash (Pt is calling to schedule a new pt apt for rosacea. Please call pt at [phone]) Social History Tobacco Use Types Packs/Day Years [...] 10:51 AM EDT Documentation purpose. lvm at [id number]. Pt is calling to schedule a new pt apt for rosacea. Please call pt at [phone] documented in this encounter Plan of Treatment Upcoming Encounters Date Type Department Care Team ([facility] Contact Info) Description 06/01/2024 9:00 AM EDT Office Visit [facility] 4th floor Cardiology Medicine [address] [place] [address] Oral Hygienist: Hemal Fritz MD [address] [place] [address] 08/02/2024 1:30 PM EDT Follow-Up [facility] [address] [place] [address] Oral Hygienist: Morales Ramsey MD [address] [place] [address] 08/16/2024 2:00 PM EDT Office Visit [facility] [address] [place] [address] Oral Hygienist: Dennis Laguna MD [address] [place] [address] Scheduled Procedures Name Priority Associated Diagnoses Date/Ti me ARTHROSCOPY, SHOULDER, WITH ROTATOR CUFF REPAIR Chronic left shoulder pain ARTHROSCOPY, SHOULDER, DEBRI RONAL, EXTENSIVE Chronic left shoulder pain ARTHROSCOPY, SHOULDER, BICEP S TENODESIS Chronic left shoulder pain documented as of this encounter Visit Diagnoses Not on filedocumented in this encounter Care Teams Taxation Inspector Relationship Specialty Start Date End Date Cristian Chacon MD [address] [place] [address] PCP - General 06/04/22 documented as of this encounter
--- OUTSIDE RECORDS SUMMARY | 2024-05-03 13:56 | XMS_ITS | Encounter Summary ---
Author Organization [facility] Address [address] [place] [address] Care Team Providers Care Claims Administrator Name Role Phone Cristian Chacon MD Primary Care Prov ider Reason for Visit * Reason Onset Date Comments PAC Provider Requested Call Back Dr Persaud Encounter Details Date Type Department Care Team ([facility] st Contact Info) Description 03/22/2024 Telephone [facility] Rheumatology Clinic [address] [place], [place] [phone] Biodiesel Division Manager: Zaida Rust Telephone Intake, Staff PAC [...] contact number available for Scarlett utilizing the [employer] line through operator services envelope patternmaker. I was unable to reach her and [...] the pain. Please call pt back at [phone] documented in this encounter Plan of Treatment Upcoming Encounters Date Type Department Care Team (Late st Contact Info) Description 06/01/2024 9:00 AM EDT Office Visit [facility] 4th floor Cardiology Medicine [address] [place] [address] Biodiesel Division Manager: Hemal Fritz MD [address] [place] [address] 08/02/2024 1:30 PM EDT Follow-Up [facility] Rheum Dermatology Clinic [address] [place] [phone] Biodiesel Division Manager: Morales Ramsey MD [address] [place] [address] 08/16/2024 2:00 PM EDT Office Visit [facility] [address] [place] [address] Biodiesel Division Manager: Juan Ramon Vallejo, Dennis Whitlock MD [address] [place] [address] Scheduled Procedures Name Priority Associated Diagnoses Date/Ti me ARTHROSCOPY, SHOULDER, WITH ROTATOR CUFF REPAIR Chronic left shoulder pain ARTHROSCOPY, SHOULDER, DEBRI RONAL, EXTENSIVE Chronic left shoulder pain ARTHROSCOPY, SHOULDER, BICEP S TENODESIS Chronic left shoulder pain documented as of this encounter Visit Diagnoses Not on filedocumented in this encounter Care Teams Claims Administrator Relationship Specialty Start Date End Date Cristian Chacon MD [address] [place] [address] PCP - General 06/04/22 documented as of this encounter
--- OUTSIDE RECORDS SUMMARY | 2024-05-03 13:56 | XMS_ITS | Encounter Summary ---
Author Organization [employer] Address [address] [facility] 7t [place] [address] Care Team Providers Care Ip Litigation Paralegal Name Role Phone Cristian Chacon MD Primary Care Prov ider Reason for Visit * Reason Onset Date Comments ER Follow-up 03/23/2024 Nurse Triage 03/23/2024 Encounter Details Date Type Department Care Team ([facility] st Contact Info) Description 03/23/2024 Telephone [facility] MEDICINE [address] [place] [address] Cristian Chacon MD [address] [place] [address] ER Follow-up; Nurse Triage Social History Tobacco [...] 11:51 AM EST [place] [id number] Jose Alberto Pt was seen in [facility] ED 03/19/24 , (report is on the [...] is offered an apt this Thursday at [facility] with provider but, requests to only see [...] 03/23/2024 9:50 AM EST Tc from pt caregiver assisted living calling to report ED visit on : Date: 03/19 Hospital: [facility] Seen for: Chest pain, Abdominal pain. Symptomatic Yes (Can't walk normally) *if yes message should go to Triage Patient advised will forward to team nurse for follow up [phone] upper sorbian documented in this encounter Plan of Treatment Upcoming Encounters Date Type Department Care Team (Late st Contact Info) Description 05/17/2024 1:30 PM EDT Office Visit [facility] MED & PEDS [address] [place] [address] Cristian Chacon MD [address] [place] [address] documented as of this encounter Visit Diagnoses Not on filedocumented in this encounter Additional Health Concerns Assessment Noted Time PHQ-9 Depression Total Score: 16 024 1:19 PM EDT documented as of this encounter Care Teams Ip Litigation Paralegal Relationship Specialty Start Date End Date Cristian Chacon MD [address] [place] [address] PCP - General Internal Medicine 03/17/19 Ivy Payne Mix House TenderCommodity Supervisor 11/26/23 documented as of this encounter
--- OUTSIDE RECORDS SUMMARY | 2024-05-03 13:56 | XMS_ITS | Encounter Summary ---
Author Organization [employer] Address [address] [facility] [address] 7[address] [place] [address] Care Team Providers Care Brick Chimney Builder Name Role Phone Cristian Chacon MD Primary Care Prov ider Encounter Details Date Type Department Care Team (Late st Contact Info) Description 03/22/2024 Orders Only [facility] CH[facility] MED & PEDS [address] [place], [place] [phone] Provider, MD Roderick Social History Tobacco Use [...] 05/17/2024 1:30 PM EDT Office Visit [facility] MED & PEDS [address] [place] [address] Cristian Chacon MD [address] [place] [address] documented as of this encounter Procedures Procedure [...] documented as of this encounter Care Teams Brick Chimney Builder Relationship Specialty Start Date End Date Cristian Chacon MD [address] [place] [address] PCP - General Internal Medicine 03/17/19 Ivy Payne Barrel InspectorPlanting Material Unloader 11/26/23 documented as of this encounter
[2024-05-03 17:24] LABS: Prothrombin Time 11.7 SEC (10.9-12.4)
[2024-05-03 17:35] LABS: Troponin-I High Sensitivity 7.4 ng/L (<3.5-17.0)
[2024-05-03 17:51] LABS: Glucose, Whole Blood 76 mg/dL (60-115)
[2024-05-03 18:51] VITALS: BP 151/103; PULSE 106; RESP 20; O2SAT 95
[2024-05-03 18:54] VITALS: BP 151/103; PULSE 106; RESP 20; TEMP -17.7; TEMP 0; O2SAT 95
== END 2024-05-03 18:55 | disposition home or self-care (01) ==
PROVIDERS: Emergency Medicine; Physician Assistant Medical; Emergency Provider Student in an Organized Health Care Education/Training Program; PCP Internal Medicine
DX: M79.7 Fibromyalgia (principal); I51.7 Cardiomegaly; J40 Bronchitis, not specified as acute or chronic; R07.89 Other chest pain; M54.2 Cervicalgia; R07.1 Chest pain on breathing; Z03.818 Encounter for observation for suspected exposure to other biological agents ruled out; Z79.899 Other long term (current) drug therapy
CPT/HCPCS: 0241U; 36415; 71045; 80048; 80076; 82550; 82947; 83690; 83735; 83880; 84484; 85025; 85610; 86140; 93005; 99283; 99284

== ENCOUNTER → 2024-05-03 10:24 | Outpatient (BNV) | payer MEDICAID, SELFPAY | PROVIDERS: PCP Internal Medicine; Visit Provider Internal Medicine Cardiovascular Disease | DX: R07.9 Chest pain, unspecified (principal) | CPT/HCPCS: 93010 ==

== ENCOUNTER → 2024-05-03 10:40 | Outpatient (BNV) | payer MEDICAID, SELFPAY | PROVIDERS: PCP Internal Medicine; Visit Provider Radiology Diagnostic Radiology | DX: I51.7 Cardiomegaly (principal); J84.10 Pulmonary fibrosis, unspecified | CPT/HCPCS: 71045 ==

== ENCOUNTER 2024-05-11 13:24 | Outpatient (AMB) | payer MEDICAID, SELFPAY ==
--- NOTE | 2024-05-11 13:25 | MHC.OFFVIS ---
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 OPERATOR/Wylie/Palp r/s fr 04/26 ok per HS Assistant Chief Nursing Officer Required: Yes Assistant Chief Nursing Officer Services: Assistant Chief Nursing Officer Present Assistant Chief Nursing Officer Name: Pete [phone] Accompanied by: Child Allergies duloxetine [From CYMBALTA] Allergy (Unknown, Verified 05/03/24 10:39) UNKNOWN pregabalin [From LYRICA] Allergy (Unknown, Verified 05/03/24 10:39) UNKNOWN meperidine [From DEMEROL] Adverse Reaction (Intermediate, Verified 05/03/24 10:39) N/V oxycodone [From Percocet] Adverse Reaction (Intermediate, Verified 05/03/24 10:39) itching Medication List - Last Reconciled 05/11/24 by Randy Ames NP albuterol sulfate 90 mcg/actuation 2 puffs inhalation Q6H PRN amitriptyline 10 mg PO BEDTIME dicyclomine 10 mg PO TID fluticasone propion-salmeterol 230-21 mcg/actuation (Advair HFA) 2 puffs inhalation BID fluticasone propionate 50 mcg/actuation 1 inh inhalation BID loratadine 10 mg PO DAILY lorazepam 2 mg PO BEDTIME PRN losartan 25 mg PO QAM montelukast (Singulair) 10 mg PO BEDTIME omeprazole 40 mg PO BID 30 days prednisone 10 mg PO DIRECTED prednisone 5 mg PO BID sertraline 50 mg PO BEDTIME sumatriptan succinate 50 - 100 mg orally at onset of headache, may repeat in 2 hrs PRN; max 2 tabs per day or 4 tabs/week (may take with Ibuprofen) 30 days tizanidine 2 mg PO Q6H PRN zolpidem 10 mg PO BEDTIME PRN HPI Comments Details: This is a 53-year-old female patient presenting for a new patient visit. A horse race starter was utilized throughout the visit. Patient has a medical history of hypertension, asthma, fibromyalgia, diabetes, and obesity. The patient reports multiple visits to the emergency room for chest discomfort. The patient describes intermittent chest pain that began in March of this year, occurring both with exertion and at rest. Initially, she attributed the pain to fibromyalgia but she noted that it got worse over time. The patient also notes that she had a previous diagnosis of influenza at an urgent care visit around end of March where she was noted to have high heart rate and was subsequently transported to the hospital by an ambulance. She also notes that during the ambulance ride, they gave for some aspirin pills which helped with the pain a little. Patient notes that all tests performed at [facility] and [facility] have been negative. Today, the patient continues to experience intermittent chest pain mostly localized to her right side and worsens with deep breaths. The pain is also reproducible on palpation at times. Patient reports that this also occasionally radiates to her back between the shoulder base. Patient also reports occasional shortness of breath during these episodes and intermittent palpitations. The patient has no known history of ischemic heart disease, coronary artery disease, cardiomyopathy. However she does have a strong family history of cardiovascular diseases including MIs and open heart surgeries. Patient otherwise denies any dizziness, orthopnea, PND, leg edema, presyncope, or syncope. [facility] Medical History Pre-op examination Hemifacial spasm Abdominal pain Pelvic pain in female Bilateral shoulder pain Vulvar irritation WISE (nonalcoholic steatohepatitis) Elevated antinuclear antibody (FELI) level FELI positive Encounter to discuss test results Hemifacial spasm of left side of face Peptic ulcer disease Esophageal spasm Family history of cerebral aneurysm Fibromyalgia Irritable bowel syndrome with both constipation and diarrhea History of meningitis Surgical History History of esophagogastroduodenoscopy (EGD) Keloid of skin H/O neck surgery Hx of section Hx of hysterectomy Hx of breast lump removal (~2019) History of bladder suspension procedure H/O bilateral breast reduction surgery Family History Mother Aneurysm Endometrial cancer Father No problems noted. Social History Alcohol intake: never Patient Tobacco Use Status: Never used Tobacco Sexual orientation: Straight/Heterosexual Gender identity: Female Review of Systems Const Denies chills, Denies daytime sleepiness, Denies fatigue, Denies fever(s), Denies poor appetite, Denies snoring, Denies stops breathing during sleep, Denies weakness, Denies weight gain and Denies weight loss Eyes Denies loss of vision ENT Denies dizziness and Denies hearing loss Card Denies chest pain, Reports chest pain with activity, Denies irregular heart rhythm, Denies claudication, Denies leg edema, Denies lightheadedness, Denies palpitations, Reports dyspnea on exertion and Denies orthopnea Resp Denies cough, Denies excessive phlegm production, Reports dyspnea on exertion, Denies snoring and Denies wheezing GI Denies abdominal pain, Denies hematochezia, Denies change in bowel habits, Denies nausea and Denies vomiting Denies urinary frequency and Denies dysuria Musc Denies arthralgias, Denies muscle weakness, Denies numbness and Denies other Skin/Breast Denies nail changes and Denies rash Neuro Denies Abnormal speech present, Denies dizziness, Denies loss of vision, Denies memory loss, Denies numbness and Denies weakness Psych Denies depression and Denies memory loss Endo Denies fatigue and Denies palpitations Aly/Lymph Denies easy bruising Aller/Immun Denies wheezing Physical Exam Vital Signs: Last Vital Signs Pulse 95 05/11/24 13:26 BP 122/76 05/11/24 13:26 Const General: cooperative, healthy appearing, comfortable and no acute distress Orientation/consciousness: patient oriented x3 HEENT Head: Yes normal to inspection Neck Neck: Yes normal visual inspection, Yes trachea midline and Yes supple Chest Other: reproducible pain Chest palpation & inspection: normal inspection of the chest Resp Effort & Inspection: normal respiratory effort Auscultation: clear to auscultation bilaterally, no crackles, no rales, no rhonchi and no wheezes Cardio Jugular venous distension: no JVD Palpation: normal PMI Rate: regular rate Rhythm: regular rhythm Heart sounds: S1 normal heart sound present, S2 normal heart sound present, no click, no gallops, no murmurs and no rubs Peripheral pulses: Peripheral pulses 2+ throughout GI Inspection: Yes normal to inspection Palpation (GI): Soft to palpation Auscultation: normal bowel sounds Skin General skin exam: no rashes or lesions noted Neuro General: patient oriented x3 Speech: No Abnormal speech present Extrem General: Yes normal to inspection, No no pedal edema and No calf tenderness Psych Appearance: grossly normal Mental Status: mental status grossly normal Speech and movement: Normal speech and movement present Assessment & Plan Assessment & Plan (1) Chest pain: Code(s): R07.9 - Chest pain, unspecified Category: Medical Plan: EKG from [facility] showed sinus tachycardia, rate 102 beats per minute, normal DE, corrected QT, no significant ST-T wave abnormalities. Patient previously underwent an ETT and stress echocardiogram years ago, both of which were incomplete due to patient's inability to walk on the treadmill. Subsequently the patient underwent a Lexiscan stress test which was normal. While the patient's symptoms appear atypical, are likely related to fibromyalgia or pleuritic pain from bronchitis on a recent flu infection, her risk factors including hypertension, diabetes, obesity and family history of cardiovascular disease warrants further investigation to rule out any potential obstructive coronary artery disease. Patient hesitant on repeating myocardial perfusion study for unclear reasons. Therefore, we will proceed with a coronary CTA. Patient's A1c should be less than 7.0. LDL goal less than 100. (2) Palpitations: Code(s): R00.2 - Palpitations Category: Medical Plan: For palpitations, we will proceed with a 3 day Holter monitor to look for any potential life-threatening arrhythmias. (3) Hypertension: Code(s): I10 - Essential (primary) hypertension Category: Medical Plan: Blood pressure today is well-controlled. No medication changes at this time. Advised to continue monitor blood pressures at home. Ideally, blood pressure goal less than 130/80. Recommended heart healthy diet, regular exercise, losing weight, aggressive management of vascular risk factors. Patient will follow-up with the completion of these tests. In the interim, patient will call us with any concerns or change in symptoms. Advised patient to seek ER care in case of exertional chest pain not resolved with rest. This note was generated using voice recognition software. While every effort has been made to ensure accuracy and proper fermenter champagne, there may be occasional errors that could affect the content or meaning of the described symptoms. Orders: Orders CA echo transthoracic complete Today R07.9 - Chest pain, unspecified CT Cardiac Coronary Angio Today R07.9 - Chest pain, unspecified ECG 3 day holter monitor Today R00.2 - Palpitations Basic Metabolic Panel Today R07.9 - Chest pain, unspecified Coding Level of Care Code New Pt Level 4 (61843) Complex EM visit Add On G2211 Diagnoses Chest pain R07.9 Palpitations R00.2 Hypertension I10 Time Spent (min) 38 Comment Time spent in reviewing the chart, test results, assessment, counseling and documentation.
[2024-05-11 13:26] VITALS: BP 122/76; PULSE 95
--- OUTSIDE RECORDS SUMMARY | 2024-05-11 15:49 | XMS_ITS | Encounter Summary ---
Author Organization [employer] Address [address] [facility] 7t [place] [address] Care Team Providers Care Chipper Feeder Name Role Phone Cristian Chacon MD Primary Care Prov ider Encounter Details Date Type Department Care Team ([facility] Contact Info) Description 11/19/2023 Orders Only [facility] [address] [place], [place] [phone] Provider, MD Roderick Social History Tobacco Use [...] 05/17/2024 1:30 PM EDT Office Visit [facility] MED & PEDS [address] [place] [address] Cristian Chacon MD [address] [place] [address] documented as of this encounter Procedures Procedure [...] documented as of this encounter Care Teams Chipper Feeder Relationship Specialty Start Date End Date Cristian Chacon MD [address] [place] [address] PCP - General Internal Medicine 03/17/19 Ivy Payne Carboy FillerSaturator Tender 03/03/23 11/25/23 Ivy Payne Asphalt SmootherSaturator Tender 11/26/23 documented as of this encounter
--- OUTSIDE RECORDS SUMMARY | 2024-05-11 15:49 | XMS_ITS | Encounter Summary ---
Author Organization [employer] Address [address] [facility] [address] [place] [address] Care Team Providers Care Sales Assistants And Salespersons Name Role Phone Cristian Chacon MD Primary Care Prov ider Encounter Details Date Type Department Care Team ([facility] st Contact Info) Description 08/25/2023 Telephone [facility] MED & PEDS [address] [place], [place] [phone] Cristian Chacon MD [address] [place] [address] Social History Tobacco Use Types Packs/Day Years Used Date Smoking Tobacco: Never Passive Smoke Exposure: Never Smokeless Tobacco: Never Depression Answer Date Recorded Patient Health Questionnaire-9 Score 14 04/17/2023 Patient Health Questionnaire-9 Score 14 04/17/2023 Last PHQ-9: Questionnaire Data Not on file 0 04/17/2023 Housing Stability Answer Date Recorded What is your housing situation today? I have lily reeevs 05/13/[address] you li [...] [facility] [address] [place] [address] Cristian Chacon MD [address] [place] [address] documented as of this encounter Visit Diagnoses Not on filedocumented in this encounter Additional Health Concerns Assessment Noted Time PHQ-9 Depression Total Score: 14 024 9:49 AM EST documented as of this encounter Care Teams Sales Assistants And Salespersons Relationship Specialty Start Date End Date Cristian Chacon MD [address] [place] [address] PCP - General Internal Medicine 03/17/19 Ivy Payne Grain HandlerBiomedical Scientist 03/03/23 11/25/23 Ivy Payne Bath StewardBiomedical Scientist 11/26/23 documented as of this encounter
--- OUTSIDE RECORDS SUMMARY | 2024-05-11 15:49 | XMS_ITS | Encounter Summary ---
Author Organization [employer] Address [address] [facility] 7t [place] [address] Care Team Providers Care Pneumatic Tester Name Role Phone Cristian Chacon MD Primary Care Prov ider Reason for Visit * Reason Onset Date Comments New med script 04/01/2022 Encounter Details Date Type Department Care Team ([facility] Contact Info) Description 04/01/2022 Telephone [facility] MED & PEDS [address] [place], [place] [phone] Cristian Chacon MD [address] [place] [address] New med script Social History Tobacco Use [...] Date Type Department Care Team ([facility] Contact Info) Description 05/17/2024 1:30 PM EDT Office Visit [facility] MED & PEDS [address] [place], [place] [phone] Cristian Chacon MD [address] [place] [address] documented as of this encounter Visit Diagnoses Not on filedocumented in this encounter Care Teams Pneumatic Tester Relationship Specialty Start Date End Date Crsitian Chacon MD [address] [place] [address] PCP - General Internal Medicine 03/17/19 Ivy Payne Resident Care TechnicianGolf Caddy 03/03/23 11/25/23 Ivy Payne Acquisition LeadGolf Caddy 11/26/23 documented as of this encounter
--- OUTSIDE RECORDS SUMMARY | 2024-05-11 15:49 | XMS_ITS | Clinical Summary ---
Author Organization [employer] Address [address] [facility] [address] [place] [address] Care Team Providers Care Sleeve Maker Name Role Phone Cristian Chacon MD Primary [...] mouth in the morning. 30 tablet 5 023 Active Acetaminophen Extra Strength 500 MG tablet TAKE 2 TABLETS BY MOUTH EVERY 4 TO 6 HOURS IF NEEDED NOT TO EXCEED 8 TABLETS PER 24 HOURS 60 tablet Active Blood Glucose Monitoring Suppl (Capillary TechnologiesStyle Lite) w/Device kit 1 Device in the morning. 1 kit Active ketotifen (Zaditor) 0.025 % ophthalmic solution Administer 1 drop into both eyes 2 times daily. 5 mL 024 Active naproxen (Naprosyn) 500 MG tablet TAKE [...] for wheezing. 18 g 2 025 Active Lancets 33G miscIndications:T ype 2 diabetes mellitus without complication, without long-term current use of insulin ([facility]) 1 Units before breakfast. 100 each 11 025 Active FREESTYLE LITE test stripIndications: Type 2 diabetes mellitus without complication, without long-term current use of insulin (CMS/HCC) Use to test blood sugar 1 times daily 100 each 12 025 2025 Active fluticasone-salme terol (Advair HFA) 230-21 MCG/ACT inhalerIndication s:Moderate persistent asthma without complication Inhale 2 puffs in the morning and at bedtime. 12 g 11 025 Active loratadine (Claritin) 10 MG tablet Take 10 mg by mouth. 018 Discontinued(R eorder (will not trigger notification to Pharmacy)) fluticasone-salme terol (Advair HFA) 230-21 MCG/ACT inhaler Inhale 2 puffs in the morning and at bedtime. 12 g 11 023 2024 Discontinued(R eorder (will not trigger notification to Pharmacy)) Lancets 33G misc 1 Units before breakfast. 100 each 11 023 2024 Discontinued(R eorder (will not trigger notification to Pharmacy)) fluticasone-salme terol (Advair HFA) 230-21 MCG/ACT inhaler Inhale 2 puffs in the morning and at bedtime. 12 g 11 025 2024 Discontinued(R eorder (will not trigger notification to Pharmacy)) predniSONE (Deltasone) 20 MG tablet Take 1 tablet (20 mg) by mouth Once per day for 5 days. 5 tablet 025 2024 fluticasone-salme terol (Advair HFA) 230-21 MCG/ACT inhalerIndication s:Multiple joint pain Inhale 2 puffs in the morning and at bedtime. 12 g 11 025 2024 Discontinued(R eorder (will not trigger notification to Pharmacy)) Active Problems Problem Noted Date Diagnosed Date [...] Plan (08/10/2023 4:03 PM EDT): Referral to Monogram Technician for further evaluation of symptoms. Ordering Stress [...] exercise. 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 with nickel plant operator, she has scheduled appointment already Pelvic pain 03/23/2023 Chronic pelvic pain in female 03/17/2023 Assessment & Plan (01/12/2024 6:12 PM EST): Patient wants to be followed at [facility], will place referral Upper back pain 01/14/2023 [...] lateral foot pain, she has seen various thread laster, she would like another opinion, she will [...] PM EST): Will place refferal to a convolute tube winder Seborrheic dermatitis 04/10/2022 Assessment & Plan (06/29/2022 [...] to perform daily activities, she currently has [employer] services but the hours provided are not [...] LESION, MOST LIKELY HEMORRHAGIC OVARIAN CYST. F/U NIGHT FILLER S/P US PELVIS 07/04/13 DUE PELVIC PAIN. 2.9 X 3.8 X 3 CM LEFT ADNEXAL CYSTIC LESION, MOST LIKELY HEMORRHAGIC OVARIAN CYST. F/U NIGHT FILLER Left carpal tunnel syndrome 06/22/2013 Vitamin D deficiency disease 02/03/2012 Overview (05/29/2022): Overview: =17. =17. Allergic rhinitis due to allergen 2008 Gastroesophageal reflux disease without esophagi tis 07/13/2007 Anxiety and depression 05/13/2007 Overview (03/07/2022): Overview: F/[facility] (DR. NANCE). [facility] (DR. NANCE). Hypothyroidism 05/13/2007 Overview (05/29/2022): [...] CARLOS EDUARDO'S THYROIDITIS, ENDO F/U with Dr Mcdowlel Insomnia 05/13/2007 Overview (05/29/2022): Overview: F/U AT [facility] (DR. NANCE). F/U AT [facility] (DR. NANCE). Mild persistent asthma 05/13/2007 Encounters Date Type Department Care Team Description 05/11/2024 Telephone [facility] [address] [place] [address] Cristian Chacon MD status check 05/10/2024 3:30 PM EDT Office Visit [facility] [address] [place] [address] Eduarda Villeda MD Other chest pain (Primary Dx); Multiple joint pain; Moderate persistent asthma without complication; Type 2 diabetes mellitus without complication, without long-term current use of insulin ([facility]); Fall, initial encounter 05/10/2024 Travel 05/04/2024 Patient Outreach [facility] [address] [place] [address] Cristian Chacon MD Care Coordination (Outreach) 05/04/[address] [facility] [address] [facility] [place] [address] Cristian Chacon MD ER Follow-up 05/03/2024 Orders Only GENERIC EXTERNAL DATA DEPARTMENT Provider, Generic External Data 05/03/2024 Patient Outreach [facility] [address] [place] [address] Cristian Chacon MD Care Coordination (Outreach) 05/02/2024 Orders Only [facility] External Provider, [facility] 04/27/2024 Patient Outreach [facility] [address] [place] [address] Cristian Chacon MD Care Coordination (Outreach) 04/26/2024 11:00 AM EST Office Visit [facility] [address] [place] [address] Aida Rae MD Moderate persistent asthma without complication (Primary Dx) 04/26/2024 Travel 04/26/2024 Patient Outreach [facility] [address] [place] [address] Cristian Chacon MD Care Coordination (Outreach) 04/20/2024 Telephone [facility] [address] [place] [address] Cristian Chacon MD Durable Medical Equipment 04/14/[address] [address] Cristian Chacon MD ER Follow-up 04/13/2024 10:45 AM EST Office Visit [facility] [address] [place] [address] Cristian Chacon MD Other chest pain (Primary Dx) 04/13/2024 Travel 04/04/2024 3:30 PM EST Office Visit [facility] [address] [place] [address] Cristian Chacon MD Dietary counseling; Exercise counseling; Systemic lupus erythematosus, unspecified SLE type, unspecified organ involvement status ([facility]); Type 2 diabetes mellitus without complication, without long-term current use of insulin ([facility]); Asthma, unspecified asthma severity, unspecified whether complicated, unspecified whether persistent 04/04/2024 Travel 03/25/2024 3:20 PM EST Office Visit [facility] [address] [place] [address] Sherry Kebede MD Abnormal CT scan (Primary Dx); Furuncle of right axilla; Vaginal yeast infection 03/25/[address] [facility] [address] [place] [address] Radha Bagley RN triage/recent [facility] ED 03/24/24 03/25/2024 Telephone [facility] [address] [place] [address] Cristian Chacon MD Nurse Triage 03/23/[address] [address] Cristian Chacon MD ER Follow-up; Nurse Triage 03/22/2024 Orders Only [facility] [address] [place] [address] Roderick Weiner MD 03/15/2024 Telephone [facility] [address] [place] [address] Cristian Chacon MD Pre-op Exam 03/10/2024 Telephone [facility] [address] [place] [address] Cristian Chacon MD No Show 03/09/2024 Telephone [facility] [address] [place] [address] Cristian Chacon MD pre op 02/27/2024 Refill [facility] [address] [place] [address] Cristian Chacon MD 02/19/2024 Orders Only [facility] [address] [place] [address] Roderick Weiner MD 02/11/2024 Telephone [facility] [address] [place] [address] Saskia Rosas MD Results from Last 3 Months Immunizations Name Administration [...] Sign Reading Time Taken Comments Blood Pressure 128/88 05/10/2024 4:47 PM EDT Pulse 96 05/10/2024 4:47 PM EDT Temperature 36.7 ??C (98 ??F) 05/10/2024 3:22 PM EDT Respiratory Rate 20 05/10/2024 3:22 PM EDT Oxygen Saturation 96% 05/10/2024 3:22 PM EDT Inhaled Oxygen Concentration - - Weight 90.7 kg (200 lb) 04/26/2024 11:10 AM EST Height 157.5 cm (5' 2 ) 05/10/2024 3:22 PM EDT Body Mass Index 36.58 04/04/2024 3:49 PM EST Plan of Treatment Upcoming Encounters Date Type Department Care Team (Late st Contact Info) Description 05/17/2024 1:30 PM EDT Office Visit [facility] [address] [place] [address] Cristian Chacon MD [address] [place] [address] Health Maintenance Due Date Last Done Comments CT Colonography 1970 Colonoscopy 1968 Colorectal Cancer Screening 1970 FIT DNA/Cologuard 1968 FIT 1970 FOBT 1970 HIV Screening 1970 Sigmoidoscopy 1968 Alcohol/Substance Use Screening 1980 Hepatitis C Screening [...] (2 - Td or Tdap) 10/14/2020 10/14/2010 Depression Monitoring (PHQ-9) 06/21/2024 12/22/2023, 12/22/2023 Depression Screening 12/21/2024 12/22/2023, 12/22/19 24 Diabetes: Hemoglobin A1C 02/01/2025 024, 11/18/2023, 11/18/2023, Additional history exists SDOH Screening 04/26/2025 04/26/2024 Tobacco Screening 05/10/2025 05/10/2024 Mammogram 05/26/2025 05/27/2023, 05/01, 05/20/2022, Additional history exists Lipid Panel 11/26/2026 11/26/2021 RSV Patients and Patients Aged 60 years [...] Date/Time Associated Diagnosis Comments ECG 12-LEAD Routine 05/10/2024 4:51 PM EDT Other chest pain Fall, initial encounter GLUCOSE, WHOLE BLOOD Routine 05/03/2024 5:15 PM EST HIGH SENSITIVITY TROPONIN I Routine 05/03/2024 5:08 PM EST PROTHROMBIN TIME-INR Routine 05/03/2024 5:08 PM EST HIGH SENSITIVITY TROPONIN I Routine 05/03/2024 11:04 [...] complication, without long-term current use of insulin ([facility]) CT CHEST ANGIO W AND WO IV CONTRAST Routine 03/19/2024 1:44 PM EST ECG 12-LEAD Routine 03/19/2024 1:[address] CHEST WO CONTRAST Routine 02/16/2024 9:13 AM EST HM HEMOGLOBIN A1C Routine 11/18/2023 10: 40 AM EDT BI MAMMOGRAM SCREENING TOMOSYNTHESIS BILATERAL Routine 05/27/2023 9:10 AM EDT LIPID PANEL, STANDARD Routine 11/26/2021 9:36 AM EDT from Last 3 Months or Most Recently Relevant to Health Maintenance Results * ECG 12 lead (05/10/2024 4:51 PM EDT) Only the most recent of3 resultswithin the time period is included. Eduarda Parkinson MD - 05/10/2024 4:51 PM EDT Heart rate 92 bpm. ??Letart VIII degrees. ??Normal sinus rhythm. ??No sign of left atrial enlargement/right atrial enlargement. ??No sign of hypertrophy. No ST elevation or ST depression. ??Normal EKG. us Eduarda Villeda MD ECG ORDERABLES Final Resul t * Glucose, Whole Blood (05/03/2024 5:15 PM EST) Pathologist [facility] Glucose, Whole Blood 76 60 - 115 mg/dL [facility] Comment:METER #: [id number] 05/03/2024 5:15 PM EST 05/03/2024 5:51 PM EST Generic External Data Provider LAB BLOOD ORDERAB LES Final Result Performing Organization Address [facility] Co de Phone Number [facility] [address] [place] [phone] * High Sensitivity Troponin I (05/03/2024 5:08 PM EST) Only the most recent of2 resultswithin the time period is included. [facility] TROPONIN I HIGH SENSITIVITY 7.4 <3.5 - 17.0 ng/L [facility] Comment:The [place] high sens itivity Troponin-I results should beused in conjunction with other diagnostic information suchas ECG, clinical observations and information, and patientsymptoms to aid in the diagnosis of [place]. 05/03/2024 5:08 PM EST 05/03/2024 5:12 PM EST [facility] External Data Provider LAB BLOOD ORDERAB LES Final Result Performing Organization Address [facility] Co de Phone Number [facility] [address] [place] [phone] * Prothrombin Time-INR (05/03/2024 5:08 PM EST) Pathologist [facility] Prothrombin Time 11.7 10.9 - 12.4 SEC [facility] INTERNATIONAL NORM RATIO 1.0 0.9 - 1.1 [facility] Comment:INTERNATIONAL NORMAL IZED RATIO (INR) REFERENCE RANGES Reference RangeFor patients not on anticoagulant therapy: 0.9 - 1.1INR ranges for oral anticoagulanttherapy:For prevention and treatment of venous thrombosis and pulmonary embolism: 2.0 - 3.0For acute myocardial infarction with aspirin therapy: 2.0 - 3.0For acute myocardial infarction without aspirin therapy: 3.0 - 4.0For patients with mechanical prosthetic heart valves: 2.5 - 3.5 05/03/2024 5:08 PM EST 05/03/2024 5:12 PM EST Generic External Data Provider LAB BLOOD ORDERAB LES Final Result Performing Organization Address [facility] Co de Phone Number [facility] [address] [place] [phone] * SARS-CoV-2 RNA, Influenza A/B, and RSV RNA, Ql NAAT (05/03/2024 11:04 AM EST) Influenza A PCR NEGATIVE Negative [facility] Influenza B PCR NEGATIVE Negative [facility] Resp Syncy Virus RNA Qual PCR NEGATIVE Negative [facility] SARS COV2 PCR NEGATIVE Negative [facility] Comment:All test results mus t be [...] use by authorized laboratories.Testing performed on the [employer] GeneXpert utilizingreal-time RT-PCR.All SARS CoV2 and positive influenza A/B results arereported to [facility]. 05/03/2024 11:0 4 AM EST 05/03/2024 11:12 AM EST Generic External Data Provider LAB MICROBIOLOGY - GENERAL ORDERABLES Final Result Performing Organization Address [facility] Co de Phone Number [facility] [address] [place] [phone] * (ABNORMAL) CBC auto differential (05/03/2024 11:04 AM EST) White Blood Count 8.1 4.8 - 10.8 X10*3/uL [facility] Red Blood Count 4.07(L) 4.20 - 5.50 X10*6/uL [facility] Hemoglobin 11.9(L) 12.0 - 16.0 g/dl [facility] Hematocrit 35.8(L) 37.0 - 47.0 % [facility] Mean Corpuscular Volume 88.0 80.0 - 98.0 fL [facility] Mean Corpuscular Hemoglobin 29.2 27.0 - 33.0 pg [facility] Mean Corpuscular HGB Conc 33.2 31.0 - 35.0 g/dl [facility] Red Cell Distribution Width 14.4 11.0 - 16.0 % [facility] Platelet Count 339 160 - 400 X10*3/uL [facility] Mean Platelet Volume 9.3(L) 9.4 - 12.3 fL [facility] Neutrophils Percent Auto 83.7(H) 45 - 73 % [facility] Imm Gran Pct Auto 0.6(H) 0.0 - 0.4 % [facility] Lymphocytes Percent Auto 11.5(L) 20 - 40 % [facility] Monocytes Percent Auto 3.6 2 - 11 % [facility] Eosinophils Percent Auto 0.5 0 - 4 % [facility] Basophils Percent Auto 0.1 0 - 2 % [facility] NRBC Pct Auto 0.0 0.0 - 0.2 /100WBC [facility] Neutrophils Absolute Auto 6.7 2.0 - 8.3 x10*3/uL [facility] Imm Gran Abs Auto 0.05(H) 0.00 - 0.03 X10*3/uL [facility] Lymphocytes Absolute Auto 0.9(L) 1.2 - 4.9 X10*3/uL [facility] Monocytes Absolute Auto 0.3 0.1 - 1.2 X10*3/uL [facility] Eosinophils Absolute Auto 0.0 0.0 - 0.4 X10*3/uL [facility] Basophils Absolute Auto 0.0 0.0 - 0.2 X10*3/uL [facility] NRBC Abs Auto 0.000 0.0 - 0.012 X10*3/uL [facility] 05/03/2024 11:0 4 AM EST 05/03/2024 11:12 AM EST us Generic External Data Provider LAB BLOOD ORDERAB LES Final Result Performing Organization Address [facility]/ZIP Co de Phone Number [facility] [address] [place] [phone] * (ABNORMAL) C-reactive Protein (05/03/2024 11:04 AM EST) Pathologist [facility] C Reactive Protein 3.79(H) < or = 0.50 mg/dL [facility] 05/03/2024 11:0 4 AM EST 05/03/2024 11:12 AM EST us Generic External Data Provider LAB BLOOD ORDERAB LES Final Result Performing Organization Address [facility] de Phone Number [facility] [address] [place] [phone] * B Type Natriuretic Peptide (BNP) (05/03/2024 11:04 AM EST) Pathologist [facility] B Type Natriuretic Peptide 44 <100 pg/mL [facility] Comment:For those patients w ho are being treated with Natrecor(nesiritide, recombinant BNP), BNP testing should beperformed at least two hours post treatment in order toensure that only endogenous levels of BNP are detected. 05/03/2024 11:0 4 AM EST 05/03/2024 11:12 AM EST us Generic External Data Provider LAB BLOOD ORDERAB LES Final Result Performing Organization Address [facility] Co de Phone Number [facility] [address] [place] [phone] * Magnesium (05/03/2024 11:04 AM EST) Pathologist [facility] Magnesium 2.1 1.6 - 2.6 mg/dL [facility] 05/03/2024 11:0 4 AM EST 05/03/2024 11:12 AM EST Generic External Data Provider LAB BLOOD ORDERAB LES Final Result Performing Organization Address [facility]/ZIP Co de Phone Number [facility] [address] [place] [phone] * Lipase (05/03/2024 11:04 AM EST) [facility] Lipase 37 8 - 78 U/L [facility] 05/03/2024 11:0 4 AM EST 05/03/2024 11:12 AM EST us Generic External Data Provider LAB BLOOD ORDERAB LES Final Result Performing Organization Address [facility] Co de Phone Number [facility] [address] [place] [phone] * Creatine Kinase, Total (05/03/2024 11:04 AM EST) [facility] Creatine Kinase Total 35 26 - 140 U/L [facility] 05/03/2024 11:0 4 AM EST 05/03/2024 11:12 AM EST Generic External Data Provider LAB BLOOD ORDERAB LES Final Result Performing Organization Address [facility] Co de Phone Number [facility] [address] [place] [phone] * Hepatic Function Panel (05/03/2024 11:04 AM EST) [facility] Bilirubin, Total 0.5 0.0 - 1.0 mg/dL [facility] Bilirubin, Direct 0.2 0.0 - 0.5 mg/dL [facility] Aspartate Amino Transferase 14 5 - 31 U/L [facility] Alanine Aminotransferase 13 0 - 31 U/L [facility] Total Protein 7.0 6.5 - 8.0 g/dL [facility] Albumin Level 3.5 3.5 - 5.0 g/dL [facility] Alkaline Phosphatase 54 39 - 117 U/L [facility] 05/03/2024 11:0 4 AM EST 05/03/2024 11:12 AM EST us Generic External Data Provider LAB BLOOD ORDERAB LES Final Result [facility] [address] [place], [place] [phone] * (ABNORMAL) Basic Metabolic Panel (05/03/2024 11:04 AM EST) Sodium 140 135 - 145 mmol/L [facility] Potassium 3.5 3.3 - 5.1 mmol/L [facility] Chloride 108 96 - 108 mmol/L [facility] Carbon Dioxide 23 22 - 29 mmol/L [facility] Anion Gap 13 12 - 20 [facility] Urea Nitrogen (BUN) 18(H) 9 - 16 mg/dL [facility] Creatinine, Serum 0.70 0.5 - 1.4 mg/dL [facility] Creatinine Clr Calc Pharmacy 91.1 [facility] Comment:Provided height and weight: 152.4 cm,90.718 kg.eGFR (calculated from the MDRD study equation) and eCrCl(calculated from the Cockcroft-Gault equation) are based ondifferent parameters and may not yield comparable results.If eCrCl result is absurd, please check patient'sheight/weight. Estimated Glomerular Filt Rate >60 [facility] Comment:Chronic Kidney Disea se: Estimated GFR < 60 mL/min/1.18h1Wimils Kidney Disease: Estimated GFR < 15 mL/min/1.73m2 Glucose 179(H) 60 - 115 mg/dL [facility] Calcium 8.6 8.4 - 10.2 mg/dL [facility] 05/03/2024 11:0 4 AM EST 05/03/2024 11:12 AM EST us Generic External Data Provider LAB BLOOD ORDERAB LES Final Result [facility] [address] [place] [phone] * XR Chest 1 View (05/03/2024 10:40 AM EST) Anatomical Region Laterality Modality Chest Radiographic Amanda ging 05/03/2024 10:4 0 AM EST Narrative 05/03/2024 11:39 AM EST ? [facility] ?[address] ?[place] [address] ?XRay Report ? Signed ? Patient: Liriano,Scarlett ?MR#: [id number] ?? [id number] ? : 1970 ?Acct:[id number] ? Age/Sex: 53 / F ?ADM Date: 05/03/24 ? Loc: HO.ED ? Attending Dr: ? Ordering Physician: Dana Montenegro DO ?? Date of Service: 05/03/24 ?? Procedure(s): XR chest 1V ?? Accession Number(s): [id number] ? cc: Cristian Chacon MD; Dana Montenegro [...] 11:36 AM EST RP ? Dictated By: ?Roxana,Oli S MD ? Signed By: ?<Electronically signed by Oli Schmidt MD in OV> ?05/03/24 1136 ? DD/ 1040 ? TD/TT: 05/03/24 1100 ? Airport Location Manager: MSM ? Procedure Note Donotuseinterpreter, Image - 05/03/[address] [address] XRay Report Signed Patient: Scarlett LirianoMR#: [id number] 354 : 1970Acct:[id number] Age/Sex: 53 / FADM Date: 05/03/24 Loc: HO.ED Attending Dr: Ordering Physician: Dana Montenegro DO Date of Service: 05/03/24 Procedure(s): XR chest 1V Accession Number(s): [id number] cc: Cristian Chacon MD; Dana Montenegro DO [...] 05/03/24 1136 DD/ 1040 TD/TT: 05/03/24 1100 Airport Location Manager: LEATHA us [facility] External Provider IMG XR PROCEDURES Final Result * US Pelvis Transvaginal (05/03/2024 9:16 AM EST) Anatomical Region Laterality Modality Pelvis Ultrasound 05/03/2024 9:16 AM EST Narrative 05/03/2024 9:18 AM EST ? [facility] ?[address] ?[place] [address] ? Ultrasound Report ? Signed ? Patient: Liriano,Scarlett ?MR#: [id number] ?? 354 ? : 1970 ?Acct:[id number] ? Age/Sex: 53 / F ?ADM Date: 05/02/24 ? Loc: HO.US ? Attending Dr: Gavino Wynne MD ? Ordering Physician: Gavino Wynne MD ?? Date of Service: 05/02/24 ?? Procedure(s): US pelvic and transvaginal ?? Accession Number(s): [id number] ? cc: Saskia Rosas MD; Gavino Wynne [...] MD in OV> ?05/03/24 0917 ? DD/ 0916 ? TD/TT: 05/03/24 09 ? Airport Location Manager: ? Procedure Note Makenna Vazquez - 05/03/[address] [address] Ultrasound Report Signed Patient: Scarlett LirianoMR#: [id number] 354 : 1970Acct:[id number] Age/Sex: 53 / FADM Date: 05/02/24 Loc: HO.US Attending Dr: Gavino Wynne MD Ordering Physician: Gavino Wynne MD Date of Service: 05/02/24 Procedure(s): US pelvic and transvaginal Accession Number(s): [id number] cc: Saskia Rosas MD; Gavino Wynne MD [...] in OV> 05/03/[address] DD/ 5 TD/TT: 05/03/24915 Airport Location Manager: [facility] External Provider IMG US PROCEDURES Final Result * POCT Glucose (04/04/2024 4:00 PM [...] IMG CT PROCEDURES Final R esult * HM Hemoglobin A1c (11/18/2023 10:40 AM EDT) us Historical Provider MD HEALTH MAINTENANCE Final Result * BI Mammogram Screening Tomosynthesis Bilateral (05/27/2023 9:10 AM EDT) Anatomical Region Laterality Modality Breast Bilateral Mammography 05/27/2023 9:10 AM EDT Narrative 06/23/2023 5:53 AM EDT ? [facility] [place] ? [address] ?[place] [id number] ? Mammography Report ? Signed ? Patient: Scarlett Liriano ?MR#: [id number] ?? [id number] ? : 1970 ?Acct:[id number] ? Age/Sex: 52 / F ?ADM Date: 05/27/23 ? Loc: HO.MAMMO ? Attending Dr: Cristian Martinez MD ? Ordering Physician: Cristian Chacon MD ?Res ?? ults: 1Negative ? Date of Service: 05/27/23 ?Follow Up: 1 Year From Orig ?? inal Mammogram ? Procedure(s): MM tomosynthesis screening BI ?? Accession Number(s): [id number] ? cc: Cristian Chacon MD ? EXAMINATION: [...] their next mammogram. ? Dictated By: ?Stefanie Alevs MD ? Signed By: ?<Electronically signed by Stefanie Alves MD in OV> ? 06/23/23 0549 ? DD/ 0910 ? TD/TT: ? Airport Location Manager: ? Procedure Note Taylor, Image - 06/23/2023 [facility] [address] [place] [address] Mammography Report Signed Patient: Scarlett Liriano#: [id number] : 1970Acct:[id number] Age/Sex: 52 / FADM Date: 05/27/23 Loc: [facility] Attending Dr: Cristian Martinez MD Ordering Physician: Cristian Chacon ults: 1Negative Date of Service: 05/27/23Follow Up: 1 Year From Orig inal Mammogram Procedure(s): MM tomosynthesis screening BI Accession Number(s): [id number] cc: Cristian Chacon MD EXAMINATION: MM SCREENING [...] in OV> 06/23/23 0549 DD/ 0910 TD/TT: Airport Location Manager: Cristian Martinez MD IMG BI PROCEDURES Final [...] the ?? estimation of LDL-C. ?? Lopez SS et al. KAILEE. 2013;310(19): 1472-7885 ?? (http://education.Fix8.Anytime Fitness/faq/ZJU725) Non-HDL Cholesterol 121 <130 mg/dL (calc) [facility] Comment: For patients with diabetes plus 1 major ASCVD risk ?? factor, treating to a non-HDL-C goal of <100 mg/dL ?? (LDL-C of <70 mg/dL) is considered a therapeutic ?? option. Triglycerides 91 <150 mg/dL [facility] 11/26/2021 9:36 AM EDT us Cristian Martinez MD LAB BLOOD ORDERABL ES Final Result [facility] [address] [place] [address], from Last 3 Months or Most Recently Relevant to Health Maintenance Insurance [employer] C[employer] Care Teams Sleeve Maker Relationship Specialty Start Date End Date WylieCristian Cook MD [address] [place] [id number] PCP - General Internal Medicine 03/17/19 Ivy Payne Sales Promotion ManagerCruller Maker 11/26/23
--- OUTSIDE RECORDS SUMMARY | 2024-05-11 15:49 | XMS_ITS | Encounter Summary ---
Author Organization [employer] Address [address] [place] [address] Care Team Providers Care Toll Line Inspector Name Role Phone Cristian Chacon MD Primary Care Prov ider Encounter Details Date Type Department Care Team ([facility] st Contact Info) Description 12/22/2023 Orders Only [facility] MED & PEDS [address] [place], [place] [phone] Cristian Chacon MD [address] [place] [address] Social History Tobacco Use Types Packs/Day Years [...] [facility] MED & PEDS [address] [place] [address] Cristian Chacon MD [address] [place] [address] documented as of this encounter Visit Diagnoses Not on filedocumented in this encounter Additional Health Concerns Assessment Noted Time PHQ-9 Depression Total Score: 16 024 1:19 PM EDT documented as of this encounter Care Teams Toll Line Inspector Relationship Specialty Start Date End Date Cristian Chacon MD [address] [place] [address] PCP - General Internal Medicine 03/17/19 Ivy Payne Train Brake OperatorLooper Fixer 11/26/23 documented as of this encounter
--- OUTSIDE RECORDS SUMMARY | 2024-05-11 15:49 | XMS_ITS | Encounter Summary ---
Author Organization [facility] Address [address] [place] [address] Care Team Providers Care Manager Chemistry Name Role Phone Cristian Chacon MD Primary Care Prov ider Encounter Details Date Type Department Care Team (Latest Contact Info) Description 10/18/2020 Abstract [facility] Dental, Provider, DDS Social History Tobacco [...] 1:30 PM EDT Office Visit [facility] MED & PEDS [address] [place] [address] Cristian Chacon MD [address] [place] [address] documented as of this encounter Visit Diagnoses Not on filedocumented in this encounter Care Teams Manager Chemistry Relationship Specialty Start Date End Date Cristian Chcaon MD [address] [place] [address] PCP - General Internal Medicine 03/17/19 Ivy Payne Trim Die MakerPetrophysicist 03/03/23 11/25/23 Ivy Payne Data Capture SpecialistPetrophysicist 11/26/23 documented as of this encounter
--- OUTSIDE RECORDS SUMMARY | 2024-05-11 15:49 | XMS_ITS | Encounter Summary ---
Author Organization [employer] Address [address] [place] [address] Care Team Providers Care Certified Athletic Trainer Name Role Phone Cristian Chacon MD Primary Care Prov ider Encounter Details Date Type Department Care Team ([facility] Contact Info) Description 01/11/2024 Orders Only [facility] [address] [place] [address] Provider, MD Roderick Social History Tobacco Use [...] PM EDT Office Visit [facility] MED & PEDS [address] [place] [address] Cristian Chacon MD [address] [place] [address] documented as of this encounter Procedures Procedure [...] documented as of this encounter Care Teams Certified Athletic Trainer Relationship Specialty Start Date End Date Cristian Chacon MD [address] [place] [address] PCP - General Internal Medicine 03/17/19 Ivy Payne Charter Boat OperatorMuffler Installer 11/26/23 documented as of this encounter
--- OUTSIDE RECORDS SUMMARY | 2024-05-11 15:49 | XMS_ITS | Encounter Summary ---
Author Organization [employer] Address [address] [place] [address] Care Team Providers Care Slasher Tender Name Role Phone Cristian Chacon MD Primary Care Prov ider Reason for Visit * Reason Comments Med Change Request Encounter Details Date Type Department Care Team ([facility] Contact Info) Description 08/31/2023 Refill [facility] MED [facility]EDS [address] [place], [place] [phone] Cristian Chacon MD [address] [place] [address] Social History Tobacco Use Types Packs/Day Years [...] [facility] MED & PEDS [address] [place] [address] Cristian Chacon MD [address] [place] [address] documented as of this encounter Visit Diagnoses Not on filedocumented in this encounter Additional Health Concerns Assessment Noted Time PHQ-9 Depression Total Score: 14 024 9:49 AM EST documented as of this encounter Care Teams Slasher Tender Relationship Specialty Start Date End Date Cristian Chacon MD [address] [place] [address] PCP - General Internal Medicine 03/17/19 Ivy Payne Cork InsulatorBuckle Stringer 03/03/23 11/25/23 Ivy Payne Gin Pole OperatorBuckle Stringer 11/26/23 documented as of this encounter
--- OUTSIDE RECORDS SUMMARY | 2024-05-11 15:49 | XMS_ITS | Encounter Summary ---
Author Organization [employer] Address [address] [facility] [address] [place] [address] Care Team Providers Care Tile And Marble Installer Name Role Phone Cristian Chacon MD Primary Care Prov ider Reason for Visit * Reason Onset Date Comments Nurse Triage 08/24/2023 Encounter Details Date Type Department Care Team ([facility] st Contact Info) Description 08/24/2023 Telephone C [facility] MED [facility] PEDS [address] [place], [place] [phone] Cristian Chacon MD [address] [place] [address] Nurse Triage Social History Tobacco Use Types [...] 08/24/2023 10:26 AM EDT Triage call with [employer] Mailer Machine Operator [place] [id number] Pt reports rash has developed on upper, inner thighs and has spread to private area . Pt describesrash as red, bumpy and itchy. Pt reports some irritation vaginally and burning with urination. Burning is described as occurring when urine contacts rash but, may have other urinary symptoms as well.This is not clear to triage nurse. Advised Pt to come to [facility] today at 230pm. Pt agrees with [...] accepted this outcome Please contact pt at [phone] (rock crushing machine operator) documented in this encounter Plan of Treatment Upcoming Encounters Date Type Department Care Team ([facility] st Contact Info) Description 05/17/2024 1:30 PM EDT Office Visit [facility] MED & PEDS [address] [place] [address] Cristian Chacon MD [address] [place] [address] documented as of this encounter Visit Diagnoses Not on filedocumented in this encounter Additional Health Concerns Assessment Noted Time PHQ-9 Depression Total Score: 14 024 9:49 AM EST documented as of this encounter Care Teams Tile And Marble Installer Relationship Specialty Start Date End Date Cristian Chacon MD [address] [place] [address] PCP - General Internal Medicine 03/17/19 Ivy Payne Power Plant Operators SupervisorGrowth Media Mixer Mushroom 03/03/23 11/25/23 Ivy Payne Inspector And UnloaderGrowth Media Mixer Mushroom 11/26/23 documented as of this encounter
--- OUTSIDE RECORDS SUMMARY | 2024-05-11 15:49 | XMS_ITS | Clinical Summary ---
Author Organization [facility] Address [address] [place] [address] Phone Care Team Providers Care Drop Wire Hanger Name Role Phone Cristian Chacon Primary Care [...] 10:47 PM EST - 04/14/2024 3:00 AM [facility] [address] [place] [address] Seth Jason MD URI due to influenza A virus (Primary Dx); Chest wall pain Discharge Disposition: Home or Self Care 03/19/2024 1:30 PM EST - 03/19/2024 8:28 PM [facility] [address] [place] [address] Ran Adams MD Goebel, Mathew, MD Other chest pain (Primary Dx); Acute generalized body pain; Elevated d-dimer Discharge Disposition: Home or Self Care from [...] 03/19/2024 1:38 PM EST ECG ANNOTATED 03/19/2024 DIANE SCREENING DIGITAL Routine 02/27/2018 5:16 PM EST Encounter for screening mammogram for malignant neoplasm of breast from Last 3 Months or Most Recently Relevant to Health Maintenance Results * Troponin I high sensitivity (04/14/2024 12:55 AM EST) Only the most recent of3 resultswithin the time period is included. [facility] High Sensitivity Troponin I 9 <=54 ng/L LAB CHEMISTRY METHOD 04/14/2024 1:47 AM EST [facility] Blood Venous blood specimen / Unknown Venipuncture / Unknown 04/14/2024 12:55 AM EST 04/14/2024 1:22 AM EST Narrative [facility] - 04/14/2024 1:47 AM EST High levels of biotin in samples may falsely decrease hsTroponin values. ??Use caution when interpreting hsTroponin results in patients taking biotin who exhibit renal impairment (eGFR <60) or in patients taking more than 20 mg/day of biotin. us Yota Block PA LAB BLOOD ORDERABLES Final Resul t [facility] [address] [place] [address], * (ABNORMAL) CBC auto differential (04/14/2024 12:55 AM EST) Only the most recent of2 resultswithin the time period is included. [facility] WBC 5.7 4.8 - 10.8 K/mcL LAB HEMETOLOGY METHOD 04/14/2024 1:27 AM EST [facility] RBC 4.10 3.80 - 4.80 M/mcL LAB HEMETOLOGY METHOD 04/14/2024 1:27 AM [facility] Hemoglobin 11.9 11.5 - 16.0 g/dL LAB HEMETOLOGY METHOD 04/14/2024 1:27 AM [facility] Hematocrit 37.2 35.0 - 47.0 % LAB HEMETOLOGY METHOD 04/14/2024 1:27 AM [facility] MCV 90.7 79.0 - 98.0 FL LAB HEMETOLOGY METHOD 04/14/2024 1:27 AM [facility] MCH 29.0 27.0 - 32.0 pcg LAB HEMETOLOGY METHOD 04/14/2024 1:27 AM [facility] MCHC 32.0 32.0 - 37.0 g/dL LAB HEMETOLOGY METHOD 04/14/2024 1:27 AM [facility] RDW 13.9 11.0 - 15.0 % LAB HEMETOLOGY METHOD 04/14/2024 1:27 AM [facility] Platelets 326 130 - 400 K/mcL LAB HEMETOLOGY METHOD 04/14/2024 1:27 AM [facility] MPV 9.3 7.0 - 11.0 FL LAB HEMETOLOGY METHOD 04/14/2024 1:27 AM [facility] NRBC 0.0 <1.0 % LAB HEMETOLOGY METHOD 04/14/2024 1:27 AM [facility] NRBC Absolute 0.00 <0.10 K/mcL LAB HEMETOLOGY METHOD 04/14/2024 1:27 AM [facility] Neutrophils Relative 80.1 % LAB HEMETOLOGY METHOD 04/14/2024 1:27 AM [facility] Lymphocytes Relative 11.2 % LAB HEMETOLOGY METHOD 04/14/2024 1:27 AM EST [facility] Monocytes Relative 3.9 % LAB HEMETOLOGY METHOD 04/14/2024 1:27 AM EST [facility] Eosinophils Relative 3.5 % LAB HEMETOLOGY METHOD 04/14/2024 1:27 AM [facility] Basophils Relative 0.4 % LAB HEMETOLOGY METHOD 04/14/2024 1:27 AM EST [facility] Immature Granulocytes Relative 0.9 % LAB HEMETOLOGY METHOD 04/14/2024 1:27 AM [facility] Neutrophils Absolute 4.53 1.50 - 7.00 K/mcL LAB HEMETOLOGY METHOD 04/14/2024 1:27 AM [facility] Lymphocytes Absolute 0.63(L) 1.00 - 5.00 K/mcL LAB HEMETOLOGY METHOD 04/14/2024 1:27 AM [facility] Monocytes Absolute 0.22 0.20 - 1.00 K/mcL LAB HEMETOLOGY METHOD 04/14/2024 1:27 AM [facility] Eosinophils Absolute 0.20 0.00 - 0.50 K/mcL LAB HEMETOLOGY METHOD 04/14/2024 1:27 AM [facility] Basophils Absolute 0.02 0.00 - 0.20 K/mcL LAB HEMETOLOGY METHOD 04/14/2024 1:27 AM EST [facility] Immature Granulocytes Absolute 0.05(H) 0.00 - 0.03 K/mcL LAB HEMETOLOGY METHOD 04/14/2024 1:27 AM [facility] Blood Venous blood specimen / Unknown Venipuncture / Unknown 04/14/2024 12:55 AM EST 04/14/2024 1:22 AM EST us Ashley NELSON LAB BLOOD ORDERABLES Final Resul t [facility] [address] [place] [address], [place] [phone] * Lipase (04/14/2024 12:55 AM EST) Only the most recent of2 resultswithin the time period is included. Lipase 58 13 - 75 unit/L LAB CHEMISTRY METHOD 04/14/2024 2:14 AM [facility] Blood Venous blood specimen / Unknown Venipuncture / Unknown 04/14/2024 12:55 AM EST 04/14/2024 1:22 AM EST Ashley NELSON LAB BLOOD ORDERABLES Final Resul t [facility] [address] [place] [address], [place] [phone] * (ABNORMAL) Comprehensive metabolic panel (04/14/2024 12:55 AM EST) Only the most recent of2 resultswithin the time period is included. Pathologist [facility] Sodium 135 133 - 145 mmol/L LAB CHEMISTRY METHOD 04/14/2024 2:14 AM [facility] Potassium 4.2 3.5 - 5.5 mmol/L LAB CHEMISTRY METHOD 04/14/2024 2:14 AM [facility] Chloride 101 96 - 110 mmol/L LAB CHEMISTRY METHOD 04/14/2024 2:14 AM [facility] CO2 29 21 - 32 mmol/L LAB CHEMISTRY METHOD 04/14/2024 2:14 AM [facility] Anion Gap 5 3 - 11 LAB CHEMISTRY METHOD 04/14/2024 2:14 AM [facility] Comment:Rechecked. TB 2-13-2 5 Glucose 84 70 - 100 mg/dL LAB CHEMISTRY METHOD 04/14/2024 2:14 AM [facility] BUN 23 5 - 25 mg/dL LAB CHEMISTRY METHOD 04/14/2024 2:14 AM [facility] Creatinine 0.84 0.50 - 1.10 mg/dL LAB CHEMISTRY METHOD 04/14/2024 2:14 AM [facility] eGFR 82 >=60 mL/min/1. 73m2 LAB CHEMISTRY METHOD 04/14/2024 2:14 AM [facility] Comment:Calculation based on the??Chronic Kidney Disease Epidemiology Collaboration (CKD-EPI) equation refit??without adjustment for race. BUN/Creatinine Ratio 27.4 LAB CHEMISTRY METHOD 04/14/2024 2:14 AM [facility] Calcium 9.0 8.5 - 10.5 mg/dL LAB CHEMISTRY METHOD 04/14/2024 2:14 AM [facility] AST (SGOT) 20 10 - 42 unit/L LAB CHEMISTRY METHOD 04/14/2024 2:14 AM [facility] ALT (SGPT) 16 10 - 60 unit/L LAB CHEMISTRY METHOD 04/14/2024 2:14 AM [facility] Alkaline Phosphatase 54 42 - 121 unit/L LAB CHEMISTRY METHOD 04/14/2024 2:14 AM [facility] Total Protein 7.1 6.0 - 8.0 g/dL LAB CHEMISTRY METHOD 04/14/2024 2:14 AM [facility] Albumin 3.1(L) 3.2 - 5.0 g/dL LAB CHEMISTRY METHOD 04/14/2024 2:14 AM [facility] Total Bilirubin 0.4 0.0 - 1.4 mg/dL LAB CHEMISTRY METHOD 04/14/2024 2:14 AM [facility] Blood Venous blood specimen / Unknown Venipuncture / Unknown 04/14/2024 12:55 AM EST 04/14/2024 1:22 AM EST us Ashley NELSON LAB BLOOD ORDERABLES Final Resul t [facility] [address] [place] [address], * ECG 12 lead (04/14/2024 12:41 AM EST) Only the most recent of2 resultswithin the time period is included. Ventricular Rate ECG 102 BPM GEMUSE Atrial Rate 102 BPM GEMUSE P-R Interval 118 ms GEMUSE QRS Duration 66 ms GEMUSE Q-T Interval 326 ms GEMUSE QTc 424 ms GEMUSE P Wave [place] 37 degrees GEMUSE R [place] 15 degrees GEMUSE T [place] 29 degrees GEMUSE ECG Interpretation Sinus tachycardia Low voltage QRS Borderline ECG When compared with ECG of 19-MAR-2024 13:38, No significant change was found Confirmed by KIMBERLY WARNER ([id number]) on 04/17/2024 8:42:22 AM GEMUSE 04/14/2024 12:4 1 AM EST 04/17/2024 8:42 AM EST Ashley NELSON ECG ORDERABLES Final Result GEMUSE * ECG-Annotated (04/14/2024) Only the most recent of2 resultswithin the time period is included. Provider Onbase MD ECG ORDERABLES Final Result * XR Chest 2 Views (04/13/2024 11:55 PM EST) Only the most recent of2 resultswithin the time period is included. Anatomical Region Laterality Modality Body Radiographic Amanda ging 04/14/2024 7:57 AM EST Impressions 04/14/2024 7:59 AM EST No pneumonia or edema. -------- FINAL REPORT -------- Dictated By: Peewee Rob Dictated Date: 04/14/2024 07:57 ET Assigned Physician: Peewee Rob Reviewed and Electronically Signed By: Peewee Rob Signed Date: 04/14/2024 07:59 ET Workstation ID: [id number] Transcribed By: Self Edit Transcribed Date: 04/14/2024 [...] Signed Date: 04/14/2024 07:59 ET Workstation ID: [id number] Transcribed By: Self Edit Transcribed Date: 04/14/2024 07:57 ET Seth Jason MD IMG XR PROCEDURES Final Result * (ABNORMAL) Respiratory virus panel molecular study (04/13/2024 1:02 PM EST) Pathologist [facility] Adenovirus Detection by PCR Not Detected Not Detected LAB MICROBIOLOGY METHOD 04/13/2024 2:09 PM EST [facility] Influenza B PCR Not Detected Not Detected LAB MICROBIOLOGY METHOD 04/13/2024 2:09 PM [facility] Coronavirus 229E Not Detected Not Detected LAB MICROBIOLOGY METHOD 04/13/2024 2:09 PM [facility] Coronavirus HKU1 Not Detected Not Detected LAB MICROBIOLOGY METHOD 04/13/2024 2:09 PM [facility] Coronavirus OC43 Not Detected Not Detected LAB MICROBIOLOGY METHOD 04/13/2024 2:09 PM [facility] Coronavirus NL63 Not Detected Not Detected LAB MICROBIOLOGY METHOD 04/13/2024 2:09 PM [facility] Parainfluenza Virus 1 Not Detected Not Detected LAB MICROBIOLOGY METHOD 04/13/2024 2:09 PM [facility] Parainfluenza Virus 2 Not Detected Not Detected LAB MICROBIOLOGY METHOD 04/13/2024 2:09 PM [facility] Parainfluenza Virus 3 Not Detected Not Detected LAB MICROBIOLOGY METHOD 04/13/2024 2:09 PM [facility] Parainfluenza Virus 4 Not Detected Not Detected LAB MICROBIOLOGY METHOD 04/13/2024 2:09 PM [facility] RSV PCR Not Detected Not Detected LAB MICROBIOLOGY METHOD 04/13/2024 2:09 PM [facility] Human Metapneumovirus A and B Not Detected Not Detected LAB MICROBIOLOGY METHOD 04/13/2024 2:09 PM [facility] Rhinovirus/Entero virus Not Detected Not Detected LAB MICROBIOLOGY METHOD 04/13/2024 2:09 PM [facility] Bordetella pertussis Not Detected Not Detected LAB MICROBIOLOGY METHOD 04/13/2024 2:09 PM [facility] Bordetella parapertussis Not Detected Not Detected LAB MICROBIOLOGY METHOD 04/13/2024 2:09 PM [facility] Influenza A H3 Detected(A ) Not Detected LAB MICROBIOLOGY METHOD 04/13/2024 2:09 PM [facility] Mycoplasma pneumo by PCR Not Detected Not Detected LAB MICROBIOLOGY METHOD 04/13/2024 2:09 PM [facility] Chlamydia pneumoniae Not Detected Not Detected LAB MICROBIOLOGY METHOD 04/13/2024 2:09 PM [facility] SARS COV-2 Not Detected Not Detected LAB MICROBIOLOGY METHOD 04/13/2024 2:09 PM EST [facility] Swab Both anterior nares / Unknown Non-blood Collection / Unknown 04/13/2024 1:02 PM EST 04/13/2024 1:02 PM EST Narrative [facility] - 04/13/2024 2:09 PM EST Testing was performed using the [employer] System Respiratory Pathogen PCR Assay. All results must [...] MICROBIOLOGY - GEN ERAL ORDERABLES Final Result [facility] [address] [place] [address], * CT Angio Chest wo and/or w [...] reveal no destructive osseous lesions. Procedure Note Genaro Rubi MD - 03/19/2024 Exam: Contrast-enhanced chest CT [...] MD on 03/19/2024 19:50:57 Seth Jason MD IM CT PROCEDURES Final Result * (ABNORMAL) D-Dimer (Quantitative) (03/19/2024 5:25 PM EST) D-Dimer, Quant (D-DU) 645(H) <=230 ng/mL DDU LAB COAGULATION METHOD 03/19/2024 6:08 PM EST [facility] Blood Venous blood specimen / Unknown Venipuncture / Unknown 03/19/2024 5:25 PM EST 03/19/2024 5:55 PM EST Narrative [facility] - 03/19/2024 6:08 PM EST D-Dimer <230 ng/mL (D-Dimer units) is the threshold for exclusion of DVT/PE. D-Dimer may be elevated in: Critically ill, severely infected, trauma patients, DIC, acute CVA, acute MS, unstable angina, AF, old age, , and smoking. D-Dimer may be decreased with: Initiation of heparin therapy and oral anticoagulants. Ran Adams MD LAB BLOOD ORDERABLES Final R esult Performing Organization Address [facility]/ZIP Co de Phone Number [facility] [address] [place] [address], [place] [phone] * B-type natriuretic peptide (03/19/2024 2:53 PM EST) BNP 37 <=100 pcg/mL LAB CHEMISTRY METHOD 03/19/2024 3:47 PM EST [facility] Blood Venous blood specimen / Unknown Venipuncture / Unknown 03/19/2024 2:53 PM EST 03/19/2024 3:10 PM EST Marcial Jones MD LAB BLOOD ORDERABLES Gladis l Result Performing Organization Address [facility] Co de Phone Number [facility] [address] [place] [address], * Magnesium (03/19/2024 2:53 PM EST) Magnesium 2.0 1.9 - 2.6 mg/dL LAB CHEMISTRY METHOD 03/19/2024 3:40 PM EST [facility] Blood Venous blood specimen / Unknown Venipuncture / Unknown 03/19/2024 2:53 PM EST 03/19/2024 3:10 PM EST Marcial Jones MD LAB BLOOD ORDERABLES Gladis l Result Performing Organization Address [facility]/ZIP Co de Phone Number [facility] [address] [place] [address], [place] [phone] * DIANE SCREENING DIGITAL (02/27/2018 5:16 PM EST) Anatomical Region Laterality Modality Mammography 02/24/2018 10:4 4 AM EST Narrative 02/27/2018 5:16 PM EST [facility] Diagnostic Imaging Department [address] [facility] [place] [place] [address] Patient: ??SCARLETT NEUMANN ?/Age/Sex: 1970 - 47 - F Unit#: ??[id number] ? Location/Status: ??SPDIMAM/REG CLI ? Mnemonic/Ordering Site: ??DIGSC/SPMAM Ordering Physician: ??EDUARDA VILLEDA MD [facility] Screening Digital - 02/27/18 - 0758 INDICATION: SCREENING COMPARISON: [facility] mammograms dating back to ?? 08/05/2012 FINDINGS: CC and MLO views of the breasts were obtained, using full field digital mammography with 3D tomosynthesis views in the MLO projection. Computer aided detection with the IntelliDOT 7.2-H was employed. History of reduction mammoplasty [...] date for the next mammogram. (G0202 / [id number]) , ??[id number] Dictating Physician: ??YONG WEATHERS MD Electronically Signed by: ??YONG WEATHERS MD Dic Date/Time: ??02/27/181711 Sign date/Time: ??02/27/181715 Procedure Note Yong Weathers MD - 02/18/2022 [facility] Diagnostic Imaging Department [address] [place] [address] Patient: SCARLETT NEUMANN /Age/Sex: 1970 - 47 - F Unit#: [id number] Location/Status: [facility] CLI Mnemonic/Ordering Site: [facility] Ordering Physician: EDUARDA VILLEDA MD [facility] Screening Digital - 02/27/18 - 0758 INDICATION: SCREENING COMPARISON: [facility] mammograms dating back to 08/05/2012 FINDINGS: CC and MLO views of the breasts were obtained, using full field digital mammography with 3D tomosynthesis views in the MLO projection. Computeraided detection with the IntelliDOT 7.2-H was employed. History of reduction mammoplasty [...] a target date for the next mammogram. [id number] / [id number]) , [id number] Dictating Physician: YONG WEATHERS MD Electronically Signed by: YONG WEATHERS MD Dic Date/Time: 02/27/181711 Sign date/Time: 02/27/181715 Eduarda Villeda MD IMG BI PROCEDURES Final R esult from Last 3 Months or Most Recently Relevant to Health Maintenance Insurance MEDICAID - [place] Care Teams Drop Wire Hanger Relationship Specialty Start Date End Date Cristian Chacon [address] [place], [place] PCP - General Internal Medicine 10/17/20
--- OUTSIDE RECORDS SUMMARY | 2024-05-11 15:49 | XMS_ITS | Encounter Summary ---
Author Organization [employer] Address [address] [place] [address] Care Team Providers Care Machine Grainer Name Role Phone Cristian Chacon MD Primary Care Prov ider Encounter Details Date Type Department Care Team (Late st Contact Info) Description 09/04/2023 Orders Only [facility] [address], [place] [phone] Cristian Chacon MD [address] [place] [address] Social History Tobacco Use Types Packs/Day Years [...] Description 05/17/2024 1:30 PM EDT Office Visit [facility] [address] [place] [address] Cristian Chacon MD [address] [place] [address] documented as of this encounter Visit Diagnoses Not on filedocumented in this encounter Additional Health Concerns Assessment Noted Time PHQ-9 Depression Total Score: 14 024 9:49 AM EST documented as of this encounter Care Teams Machine Grainer Relationship Specialty Start Date End Date Cristian Chacon MD [address] [place] [address] PCP - General Internal Medicine 03/17/19 Ivy Payne Plant Technician/Control Room OperatorMimeograph Operator 03/03/23 11/25/23 Ivy Payne Youth Support WorkerMimeograph Operator 11/26/23 documented as of this encounter
--- OUTSIDE RECORDS SUMMARY | 2024-05-11 15:49 | XMS_ITS | Encounter Summary ---
Author Organization [employer] [facility] Address [address] [place] [address] Care Team Providers Care Field Service Rep Name Role Phone Cristian Chacon MD Primary Care Prov ider Encounter Details Date Type Department Care Team (Latest Contact Info) Description 04/12/2019 Abstract [facility] CONVERSIONS Dental, Provider, DDS Social History [facility] [address] [place] [address] Cristian Chacon MD [address] [place] [address] documented as of this encounter Visit Diagnoses Not on filedocumented in this encounter Care Teams Field Service Rep Relationship Specialty Start Date End Date Cristian Chacon MD [address] [place] [address] PCP - General Internal Medicine 03/17/19 Ivy Payne Web Operations SpecialistOracle Hrms Developer 03/03/23 11/25/23 Ivy Payne Circuit RecorderOracle Hrms Developer 11/26/23 documented as of this encounter
--- OUTSIDE RECORDS SUMMARY | 2024-05-11 15:50 | XMS_ITS | Referral Summary ---
Author Organization [facility] Address [address] [place] [address] Care Team Providers Care Stallion Manager Name Role Phone Cristian Chacon MD Primary Care Prov ider Encounters Date Type Department Care Team Description 04/21/2024 Telephone [facility] 4th floor Cardiology Medicine [address] [place] [address] Plate Molder: Mary Arriaga Telephone Intake, Staff PAC Form/Letter/Record s Request 04/20/2024 9:00 AM EST Follow-Up [facility] [address] [place] [address] Plate Molder: Alonzo Baez MD FELI positive (Primary Dx); Arthralgia, unspecified joint; Chest pain, unspecified type; Moderate persistent asthma, unspecified whether complicated 04/08/2024 Telephone [facility] [address] [place] [address] Plate Molder: Zaida Rust Telephone Intake, Staff PAC Sick/Symptoms 03/30/2024 Telephone [facility] [address] [place] [address] Plate Molder: Alonzo Baez MD PAC Patient Request Call Back; PAC Clinical Questions 03/27/2024 Telephone [facility] Rheumatology [address] [place] [address] Plate Molder: Alonzo Caputo MD 03/25/2024 Telephone [facility] Rheumatology [address] [place] [address] Plate Molder: Alonzo Caputo MD 03/24/2024 Documentation [facility] Rheumatology [address] [place] [address] Plate Molder: Alonzo Caputo MD 03/24/2024 Telephone [facility] Rheumatology [address] [place] [address] Plate Molder: Alonzo Caputo MD 03/23/2024 4:00 PM EST - 03/23/2024 11:59 PM EST Hospital Encounter [facility] XRay [address] [place] [address] Alonzo Persaud MD Chronic pain of both shoulders; Bilateral hip pain; Neck pain Discharge Disposition: Home or Self Care () 03/23/2024 3:20 PM EST Office Visit [facility] [address] [place] [address] Plate Molder: Alonzo Baez MD Chronic pain of both shoulders (Primary Dx); Bilateral hip pain; Neck pain 03/22/2024 Telephone [facility] [address] [place] [address] Plate Molder: Zaida Rust Telephone Intake, Staff PAC Provider Requested Call Back Dr Persaud 03/22/2024 Telephone [facility] [address] [place] [address] Plate Molder: Alysha Roman Telephone Intake, Staff 03/17/2024 Refill [facility] [address] [place] [address] Plate Molder: Alonzo Baez MD 03/05/2024 Refill [facility] [address] [place] [address] Plate Molder: Alonzo Baez MD 02/18/2024 Telephone [facility] Rheumatology [address] [place] [address] Plate Molder: Alonzo Caputo MD 02/16/2024 12:00 PM EST - 02/16/2024 11:59 PM EST Hospital Encounter [facility] CT Scan Department [address] [place] [address] Rib pain Discharge Disposition: Home or Self [...] a day. 60 tablet 2 5 Active Active Problems Problem Noted Date Diagnosed [...] 06/01/2024 9:00 AM EDT Office Visit [facility] ACC Building 4th floor Cardiology Medicine [address] [place] [address] Plate Molder: Hemal Fritz MD [address] [place] [address] 08/02/2024 1:30 PM EDT Follow-Up [facility] [address] [place] [address] Plate Molder: Morales Ramsey MD [address] [place] [address] 08/16/2024 2:00 PM EDT Office Visit [facility] [address] [place] [address] Plate Molder: Dennis Laguna MD [address] [place] [address] Scheduled Procedures Name Priority Associated Diagnoses Date/Ti me ARTHROSCOPY, SHOULDER, WITH ROTATOR CUFF REPAIR Chronic left shoulder pain ARTHROSCOPY, SHOULDER, DEBRI RONAL, EXTENSIVE Chronic left shoulder pain ARTHROSCOPY, SHOULDER, BICEP S TENODESIS Chronic left shoulder pain Procedures * Due to [place] state law, this organization might not be [...] AM EST FELI positive Arthralgia, unspecified joint [id number] STAT 04/20/19 25 9:23 AM EST FELI [...] to Health Maintenance Results * Due to [place] state law, this organization might not be sharing negative HIV tests. * Drake Top, Urine (04/20/2024 9:23 AM EST) Only the most recent of2 resultswithin the time period is included. Extra Tube Hold for add-ons. 04/20/2024 2:05 PM EST [facility] Comment:Auto resulted. Urine Urine specimen collection, clean catch / Unknown Non-Blood Collection / Unknown 04/20/2024 9:23 AM EST 04/20/2024 9:39 AM EST Alonzo Persaud MD LAB URINE ORDERABLES Final Result [facility] [address] [place] [address], [place] * (ABNORMAL) DNA AB(DS) Crithidia Titer (04/20/2024 9:23 AM EST) Only the most recent of2 resultswithin the time period is included. DNA Ab Crithidia Titer 1:40(H) <1:10 titer 04/23/2024 12:47 PM EST [facility] Blood Structure of peripheral vein / Unknown Venipuncture / Unknown 04/20/2024 9:23 AM EST 04/20/2024 9:38 AM EST Narrative [facility] - 04/23/2024 12:47 PM EST [facility] Received Date: Alonzo Persaud MD LAB BLOOD ORDERABLES Final Result [facility] [address] [place] [address] 3rd Floor, [place] [address], [place] [phone] [facility] [address] [place], [place] , [place] * (ABNORMAL) Urinalysis W/Reflex to Microscopic & Culture (04/20/2024 9:23 AM EST) Only the most recent of2 resultswithin the time period is included. Color, Urine Yellow Colorless, Light Yellow, Yellow, Dark Yellow 04/20/2024 9:59 AM EST [facility] Clarity, Urine Clear Clear 04/20/2024 9:59 AM EST [facility] Specific [place], Urine 1.024 1.005 - 1.030 04/20/2024 9:59 AM [facility] pH, Urine 5.0 4.6 - 8.0 04/20/2024 9:59 AM [facility] Protein, Urine 1+(A) Negative 04/20/2024 9:59 AM [facility] Glucose, Urine Negative Negative 04/20/2024 9:59 AM [facility] Ketones, Urine Negative Negative 04/20/2024 9:59 AM [facility] Bilirubin, Urine Negative Negative 04/20/2024 9:59 AM [facility] Blood, Urine Negative Negative 04/20/2024 9:59 AM [facility] Nitrite, Urine Negative Negative 04/20/2024 9:59 AM [facility] Urobilinogen, Urine Normal Normal 04/20/2024 9:59 AM [facility] Leukocyte Esterase, Urine Negative Negative 04/20/2024 9:59 AM [facility] WBC, Urine 1 0 - 2 /HPF 04/20/2024 9:59 AM [facility] RBC, Urine <1 0 - 2 /HPF 04/20/2024 9:59 AM [facility] Hyaline Casts, Urine 0 0 - 2 /LPF 04/20/2024 9:59 AM [facility] Squamous Epithelial Cells, Urine 2 /HPF 04/20/2024 9:59 AM [facility] Bacteria, Urine None None /HPF /HPF 04/20/2024 9:59 AM [facility] Mucus, Urine Rare /LPF 04/20/2024 9:59 AM [facility] Urine Urine specimen collection, clean catch / Unknown Non-Blood Collection / Unknown 04/20/2024 9:23 AM EST 04/20/2024 9:39 AM EST Alonzo Persaud MD LAB URINE ORDERABLES Final Result [facility] [address] [place] [address], [place] * (ABNORMAL) DNA Antibody (ds) Crithidia IFA w/Reflex (04/20/2024 9:23 AM EST) Only the most recent of2 resultswithin the time period is included. DNA Ab(ds) Crithidia, IFA Positive(A ) Negative 04/23/2024 12:26 PM EST [facility] Blood Structure of peripheral vein / Unknown Venipuncture / Unknown 04/20/2024 9:23 AM EST 04/20/2024 9:38 AM EST Narrative [facility] - 04/23/2024 12:26 PM EST [facility] Received Date:[id number] Alonzo Persaud MD LAB BLOOD ORDERABLES Final Result Performing Organization Address City/[facility]/ZIP Co de Phone Number [address] 3rd Floor, [place] [address], [facility] [address] [place], [place] , [place] * Procalcitonin (04/20/2024 9:23 AM EST) Pathologist [facility] Procalcitonin <0.20 <0.20 ng/mL 04/22/2024 2:53 PM EST [facility] [employer] [id number] Comment: Verified by repeat analysis. [...] EST 04/20/2024 9:38 AM EST Narrative [facility] - 04/22/2024 2:53 PM EST [facility] Received Date: us Alonzo Persaud MD LAB BLOOD ORDERABLES Final Result [facility]rd Floor, [place] [address], [place] [phone] [place] [address], * (ABNORMAL) CBC Auto Differential (04/20/2024 9:23 AM EST) Only the most recent of2 resultswithin the time period is included. WBC 12.4(H) 3.8 - 10.8 10*3/uL 04/20/2024 9:47 AM EST [facility] RBC 4.34 3.80 - 5.10 10*6/uL 04/20/2024 9:47 AM EST [facility] Hemoglobin 12.3 11.7 - 15.5 g/dL 04/20/2024 9:47 AM [facility] Hematocrit 39.1 35.0 - 45.0 % 04/20/2024 9:47 AM [facility] MCV 90.1 80.0 - 100.0 fL 04/20/2024 9:47 AM [facility] MCH 28.3 27.0 - 33.0 pg 04/20/2024 9:47 AM [facility] MCHC 31.5(L) 32.0 - 36.0 g/dL 04/20/2024 9:47 AM [facility] RDW 13.4 11.0 - 15.0 % 04/20/2024 9:47 AM [facility] Platelets 351 140 - 400 10*3/uL 04/20/2024 9:47 AM [facility] MPV 9.4 7.5 - 12.5 fL 04/20/2024 9:47 AM [facility] Neutrophil % 88.3 % 04/20/2024 9:47 AM [facility] Immature Grans % 1.1(H) 0.0 - 0.9 % 04/20/2024 9:47 AM [facility] Lymphocyte % 6.1 % 04/20/2024 9:47 AM [facility] Monocyte % 4.1 % 04/20/2024 9:47 AM [facility] Eosinophil % 0.2 % 04/20/2024 9:47 AM [facility] Basophil % 0.2 % 04/20/2024 9:47 AM [facility] Neutrophil # 10.92(H) 1.50 - 7.80 10*3/uL 04/20/2024 9:47 AM [facility] Immature Grans # 0.14(H) <=0.03 10*3/uL 04/20/2024 9:47 AM [facility] Lymphocyte # 0.80(L) 0.85 - 3.90 10*3/uL 04/20/2024 9:47 AM [facility] Monocyte # 0.50 0.20 - 0.95 10*3/uL 04/20/2024 9:47 AM EST [facility] Eosinophil # <0.03 0.02 - 0.50 10*3/uL 04/20/2024 9:47 AM EST [facility] Basophil # <0.03 0.00 - 0.20 10*3/uL 04/20/2024 9:47 AM EST [facility] nRBC % 0.0 /100 WBCs 04/20/2024 9:47 AM EST [facility] nRBC # <0.01 <0.01 10*3/uL 04/20/2024 9:47 AM EST [facility] Blood Structure of peripheral vein / Unknown Venipuncture / Unknown 04/20/2024 9:23 AM EST 04/20/2024 9:38 AM EST Alonzo Persaud MD LAB BLOOD ORDERABLES Final Result Performing Organization Address City/State/[facility] Co de Phone Number [facility] [address] [place] [address], * Microalbumin, Random Urine with Creatinine (04/20/2024 9:23 AM EST) Only the most recent of2 resultswithin the time period is included. Microalbumin, Urine <2.0 mg/dL 04/20/2024 12:17 PM EST [facility] Creatinine, Urine 186 15 - 278 mg/dL 04/20/2024 12:17 PM EST [facility] Microalb/Creat Ratio, Random Urine 04/20/2024 12:17 PM EST [facility] Comment: < 1.0 mcg/mgCr Microalbumin Reference Range: Normal ? <30 mcg/mg Creatinine Microalbuminuria ? 30-300 mcg/mg Creatinine Clinical Albuminuria >300 mcg/mg Creatinine Reference: ADA Guideline. Diabetes Care. 2004;27 (suppl 1) Urine Voided urine specimen / Unknown Non-Blood Collection / Unknown 04/20/2024 9:23 AM EST 04/20/2024 9:39 AM EST Alonzo Persaud MD LAB URINE ORDERABLES Final Result [facility] [address] [place] [address], [facility] [address] [place] [address], * (ABNORMAL) DNA Antibody, Double-Stranded (04/20/2024 9:23 AM EST) Only the most recent of2 resultswithin the time period is included. DNA (Ds) Antibody 7(H) IU/mL 025 9:50 PM EST [facility] Comment: ? IU/mL ? Interpretation ? < or = 4 ?Negative ? 5-9 ? Indeterminate ? > or = 10 ?? Positive Blood Structure of peripheral vein / Unknown Venipuncture / Unknown 04/20/2024 9:23 AM EST 04/20/2024 9:38 AM EST Narrative [facility] 04/21/2024 9:50 PM EST [facility] Received Date:[id number] us Alonzo Persaud MD LAB BLOOD ORDERABLES Final Result [facility] [address] [facility] 3rd Floor, [place] [address], [employer] [facility] [address] [facility] 3rd Floor, [place] [address], [place] [phone] * Sedimentation Rate (04/20/2024 9:23 AM EST) Only the most recent of2 resultswithin the time period is included. Sed Rate 23 <30 mm/Hr mm/Hr 04/20/2024 10:04 AM EST [facility] Blood Structure of peripheral vein / Unknown Venipuncture / Unknown 04/20/2024 9:23 AM EST 04/20/2024 9:38 AM EST Alonzo Persaud MD LAB BLOOD ORDERABLES Final Result [facility] [address] [place] [address], * Complement C3 (04/20/2024 9:23 AM EST) Only the most recent of2 resultswithin the time period is included. Pathologist [facility] Complement Component C3C 101 83 - 193 mg/dL 04/21/2024 4:22 AM EST [facility] Blood Structure of peripheral vein / Unknown Venipuncture / Unknown 04/20/2024 9:23 AM EST 04/20/2024 9:38 AM EST Narrative [facility] - 04/21/2024 4:22 AM EST [facility] Received Date: us Alonzo Persaud MD LAB BLOOD ORDERABLES Final Result [facility] [address] [facility] 3rd Floor, [place] [address], [place] [phone] [facility] [employer] [facility] [address] [facility] 3rd Floor, [place] [address], [place] [phone] * Complement C4 (04/20/2024 9:23 AM EST) Only the most recent of2 resultswithin the time period is included. Complement Component C4C 21 15 - 57 mg/dL 04/21/2024 4:22 AM EST [facility] [facility] Blood Structure of peripheral vein / Unknown Venipuncture / Unknown 04/20/2024 9:23 AM EST 04/20/2024 9:38 AM EST N[facility]ative [facility] - 04/21/2024 4:22 AM EST [facility] Received Date: Alonzo Persaud MD LAB BLOOD ORDERABLES Final Result Performing Organization Address City/[facility]/ZIP Co de Phone Number [facility] [address] [facility] 3rd Floor, [place] [address], [place] [phone] [employer] [facility] [address] [facility] 3rd Floor, [place] [address], [place] [phone] * (ABNORMAL) C-Reactive Protein (04/20/2024 9:23 AM EST) Only the most recent of2 resultswithin the time period is included. C Reactive Protein 10.5(H) <=9.9 mg/L 04/20/2024 10:34 AM EST [facility] Blood Structure of peripheral vein / Unknown Venipuncture / Unknown 04/20/2024 9:23 AM EST 04/20/2024 9:38 AM EST Alonzo Persaud MD LAB BLOOD ORDERABLES Final Result [facility] [address] [place] [address], * (ABNORMAL) Creatine Kinase (04/20/2024 9:23 AM EST) Only the most recent of2 resultswithin the time period is included. CK 35(L) 38 - 206 U/L 04/20/2024 10:34 AM EST [facility] Blood Structure of peripheral vein / Unknown Venipuncture / Unknown 04/20/2024 9:23 AM EST 04/20/2024 9:38 AM EST us Alonzo Persaud MD LAB BLOOD ORDERABLES Final Result [facility] [address] [place] [address], * (ABNORMAL) Comprehensive Metabolic Panel (04/20/2024 9:23 AM EST) Only the most recent of2 resultswithin the time period is included. NA 139 135 - 145 mmol/L 04/20/2024 10:34 AM EST [facility] K 3.8 3.5 - 5.3 mmol/L 04/20/2024 10:34 AM EST [facility] Cl 105 98 - 107 mmol/L 04/20/2024 10:34 AM EST [facility] CO2 24 22 - 32 mmol/L 04/20/2024 10:34 AM EST [facility] Anion Gap 10 5 - 15 04/20/2024 10:34 AM EST [facility] Glucose 177(H) 65 - 99 mg/dL 04/20/2024 10:34 AM EST [facility] Creatinine 0.73 0.50 - 1.20 mg/dL 04/20/2024 10:34 AM EST [facility] Calcium 8.4(L) 8.6 - 10.5 mg/dL 04/20/2024 10:34 AM EST [facility] Total Protein 6.9 6.0 - 8.0 g/dL 04/20/2024 10:34 AM EST [facility] Albumin 3.4(L) 3.5 - 5.2 g/dL 04/20/2024 10:34 AM EST [facility] Bilirubin, Total 0.3 0.2 - 1.2 mg/dL 04/20/2024 10:34 AM EST [facility] Alkaline Phosphatase 50 35 - 129 U/L 04/20/2024 10:34 AM EST [facility] AST 14 10 - 40 U/L 04/20/2024 10:34 AM EST [facility] ALT 11 10 - 40 U/L 04/20/2024 10:34 AM EST [facility] BUN 24(H) 7 - 23 mg/dL 04/20/2024 10:34 AM EST [facility] eGFR >90 >=60 mL/min/1. 73m2 04/20/2024 10:34 AM EST [facility] Comment:The estimated glomer ular [...] 2.1 - 4.2 g/dL 04/20/2024 10:34 AM [facility] A/G Ratio 1.0(L) 1.5 - 3.0 04/20/2024 10:34 AM EST [facility] Blood Structure of peripheral vein / Unknown Venipuncture / Unknown 04/20/2024 9:23 AM EST 04/20/2024 9:38 AM EST us Alonzo Persaud MD LAB BLOOD ORDERABLES Final Result [facility] [address] [place] [address], * Interpretation (03/23/2024 4:48 PM EST) FELI Specific Antibody Interpretation See Comments 03/25/2024 12:23 PM EST [facility] Comment: The presence of these two antibodies [...] PM EST Narrative [facility] - 03/25/2024 12:23 PM EST [facility] Received Date: us Alonzo Persaud MD LAB BLOOD ORDERABLES Final Result [facility] [address] [facility] 3rd Floor, [place] [address], [employer] [address], [place] [address], * (ABNORMAL) Stage 1 (03/23/2024 4:48 PM EST) DNA (Ds) Antibody 11(H) IU/mL 025 12:23 PM EST [facility] Comment: ? IU/mL ? Interpretation ? < or = 4 ?Negative ? 5-9 ? Indeterminate ? > or = 10 ?? Positive Sm Antibody <1.0 NEG <1.0 NEG AI 03/25/2024 12:23 PM EST [facility] SM/TYPING SECRETARY Antibody <1.0 NEG <1.0 NEG AI 03/25/2024 12:23 PM EST [facility] TYPING SECRETARY Antibody <1.0 NEG <1.0 NEG AI 03/25/2024 12:23 PM EST [employer] [facility] Chromatin Antibody 3.0 POS(A) <1.0 NEG AI 03/25/2024 12:23 PM EST [employer] [facility] Comment: ANTIBODY PREVALENCE IN TIER 1 [...] Sjogren's syndrome and 8% polymyositis. ?? Ribonucleoprotein (TYPING SECRETARY) antibodies are to TYPING SECRETARY A and/or TYPING SECRETARY 68kD proteins; antibodies to one or both are present in >80% MCTD, 22% to 48% SLE, 14% systemic sclerosis, 12% Sjogren's and 8% polymyositis. ?? Sm/TYPING SECRETARY antibodies are directed to epitopes formed in a complex of Sm and TYPING SECRETARY; antibodies to the Sm/TYPING SECRETARY complex are present in 54% to 94% MCTD, 30% SLE, 4% systemic sclerosis, and 9% Sjogren's and polymyositis. ?? Sm antibody is present in 20% to 30% SLE, 8% MCTD, 10% polymyositis, 0% systemic sclerosis and 4% Sjogren's syndrome. ?? Double stranded DNA, Chromatin, Ribonucleoprotein, Sm/TYPING SECRETARY complex and Sm antibodies are present in <2% of normal blood donors. ?? The [facility] does not rule out autoimmune disease characterized by other autoantibody specificities such as rheumatoid arthritis, autoimmune hepatitis, primary biliary cirrhosis, autoimmune thyroiditis, Jay's disease, pernicious anemia, autoimmune neuropathies, vasculitis, celiac disease and bullous disease. Please contact your local [facility] laboratory if you are interested in additional testing. Blood Structure of peripheral vein / Unknown Venipuncture / Unknown 03/23/2024 4:48 PM EST 03/23/2024 5:31 PM EST [facility] 03/25/2024 12:23 PM EST [facility] Received Date: us Alonzo Persaud MD LAB BLOOD ORDERABLES Final Result Performing Organization Address City/[facility]/ZIP Co de Phone Number [facility] [address] [facility] 3rd Floor, [place] [address], [place] [phone] [employer] [facility] [address] [facility] [address] [facility], [place] [address], [place] [phone] * (ABNORMAL) FELI, Titer and Pattern (03/23/2024 4:48 PM EST) FELI Titer 1 1:1280(H) titer 03/30/2024 4:22 PM EST [facility] Comment: ?Reference Range ?<1:40 ?Negative ?1:40-1:80 ?Low Antibody Level ?>1:80 ?Elevated Antibody Level FELI Pattern 1 Nuclear, Homogeneo (A) 03/30/2024 4:22 PM EST [employer] [facility] Comment: Homogeneous pattern is associated with systemic lupus erythematosus (SLE), drug-induced lupus and juvenile idiopathic arthritis. AC-1: Homogeneous International Consensus on FELI Patterns (https://doi.org/10.1515/thqy-1380-9892) Blood Structure of peripheral vein / Unknown Venipuncture / Unknown 03/23/2024 4:48 PM EST 03/23/2024 5:31 PM EST Narrative [facility] - 03/30/2024 4:22 PM EST [facility] Received Date: us Alonzo Persaud MD LAB BLOOD ORDERABLES Final Result [facility] [address] [facility] [address] [facility], [place] [address], [place] [phone] [employer] [facility] [address] [facility] 3rd Floor, [place] [address], [place] [phone] * (ABNORMAL) [employer] & Lambda, Free w/Ratio (03/23/2024 4:48 PM EST) [employer] Light Chain, Free, Serum 99.6(H) 3.3 - 19.4 mg/L 03/24/2024 3:56 PM EST [employer] [facility] Lambda Light Chain, Free, Serum 60.2(H) 5.7 - 26.3 mg/L 03/24/2024 3:56 PM EST [employer] [facility] [employer]/Lambda Light Chains Free With Ratio 1.65 0.26 - 1.65 03/24/2024 3:56 PM EST [employer] [facility] Comment: Free kappa/lambda ratio in serum [...] 4:48 PM EST 03/23/2024 5:31 PM EST [facility] - 03/24/2024 3:56 PM EST [facility] Received Date: Alonzo Persaud MD LAB BLOOD ORDERABLES Final Result [facility] [address] [facility] [address]rd Floor, [place] [address], [place] [phone] [employer] [facility] [address] [facility] [address]rd Floor, [place] [address], [place] [phone] * (ABNORMAL) Protein Electrophoresis w/Reflex to Immunofixation, Serum (03/23/2024 4:48 PM EST) [facility] Protein, Total 6.5 6.1 - 8.1 g/dL 03/25/2024 7:04 AM EST [employer] [facility] Albumin 3.0(L) 3.8 - 4.8 g/dL 03/25/2024 7:04 AM [employer]ink[employer] [facility] Alpha 1 Globulin 0.5(H) 0.2 - 0.3 g/dL 03/25/2024 7:04 AM EST [employer] [facility] Alpha 2 Globulin 0.9 0.5 - 0.9 g/dL 03/25/2024 7:04 AM [employer] [place] [facility] Beta 1 Globulin 0.4 0.4 - 0.6 g/dL 03/25/2024 7:04 AM [facility] Beta 2 Globulin 0.4 0.2 - 0.5 g/dL 03/25/2024 7:04 AM op5 [facility] Gamma Globulin 1.2 0.8 - 1.7 g/dL 03/25/2024 7:04 AM op5 [facility] Interpretation See Comments 03/25/2024 7:04 AM [facility] Comment: Pattern consistent with an acute phase reaction Blood Structure of peripheral vein / Unknown Venipuncture / Unknown 03/23/2024 4:48 PM EST 03/23/2024 5:31 PM EST [facility] PHILLIP ROSARIO - 03/25/2024 7:04 AM EST [employer] Received Date: Alonzo Persaud MD LAB BLOOD ORDERABLES Final Result PHILLIP ROSARIO [address] [facility] 3rd Floor, [place] [address], [place] [phone] [employer] [facility] [address] [facility] 3rd Floor, [place] [address], [place] [phone] * Cyclic Citrullinated Peptide (CCP) Antibody, IgG (03/23/2024 4:48 PM EST) [facility] Cyclic Citrullinated Peptide (CCP) Ab (IgG) <16 UNITS 03/25/2024 2:15 PM EST [employer] [facility] Comment: Reference Range Negative: ?<20 Weak Positive: ? 20-39 Moderate Positive: ?? 40-59 Strong Positive: ? >59 Blood Structure of peripheral vein / Unknown Venipuncture / Unknown 03/23/2024 4:48 PM EST 03/23/2024 5:31 PM EST Narrative [facility] - 03/25/2024 2:15 PM EST [facility] Received Date: us Alonzo Persaud MD LAB BLOOD ORDERABLES Final Result [facility] [place] [address] [facility] 3rd Floor, [place] [address], [employer] [facility] [address], [place] [address], * Lyme Antibody Screen w/Reflex to Blot (03/23/2024 4:48 PM EST) Lyme Ab Screen <0.90 index 03/24/2024 11:29 AM EST [facility] Comment: ? Index ?Interpretation ? ----- ? [...] EST 03/23/2024 5:31 PM EST Narrative [facility] - 03/24/2024 11:29 AM EST [facility] Received Date: us Alonzo Persaud MD LAB BLOOD ORDERABLES Final Result [facility] [address] [facility] [address] [facility], [place] [address], [employer] [address], [place] [address], * (ABNORMAL) FELI Screen, IFA, w/Reflex to Titer & Pattern (03/23/2024 4:48 PM EST) FELI Screen, IFA POSITIVE (A) NEGATIVE 03/30/2024 4:21 PM EST [employer] Comment: FELI IFA is a first line screen for detecting the presence of up to approximately 150 autoantibodies in various autoimmune diseases. A positive FELI IFA result is suggestive of autoimmune disease and reflexes to titer and pattern. Further laboratory testing may be considered if clinically indicated. For additional information, please refer to http://education.[employer].Prezto/faq/PPI211 (This link is being provided for informational/ educational purposes only.) ?? Blood Structure of peripheral vein / Unknown Venipuncture / Unknown 03/23/2024 4:48 PM EST 03/23/2024 5:31 PM EST Narrative [facility] - 03/30/2024 4:21 PM EST [facility] Received Date: us Alonzo Persaud MD LAB BLOOD ORDERABLES Final Result Performing Organization Address [facility]/ZIP Co de Phone Number [facility] [address], [place] [address], [employer] [facility] [address], [place] [address], * Urine Culture, Routine (03/23/2024 4:48 PM EST) Pathologist [facility] Culture Mixed genital zachary isolated. These superficial bacteria are not indicative of a urinary tract infection. No further organism identification is warranted on this specimen. 03/24/2024 5:21 PM EST [employer] [facility] Urine Urine specimen collection, clean catch / Unknown Non-Blood Collection / Unknown 03/23/2024 4:48 PM EST 03/23/2024 6:19 PM EST Narrative [facility] - 03/24/2024 5:21 PM EST [facility] Received Date: MICRO NUMBER: [id number] SPECIMEN QUALITY: Adequate SOURCE: URINE CLEAN CATCH STATUS: FINAL If clinically indicated, recollect clean-catch, mid-stream urine and transfer immediately to Urine Culture Transport Tube. Alonzo Persaud MD LAB MICROBIOLOGY - GENERAL ORDERABLES Final Result Performing Organization Address [facility] Co de Phone Number PHILLIP ROSARIO [address], [place] [address], [employer] [facility] [address], [place] [address], * (ABNORMAL) FELI Specific Antibody w/Reflex to [place] (03/23/2024 4:48 PM EST) [facility] FELI Screen, Immunoassay POSITIVE (A) NEGATIVE 03/25/2024 12:23 PM EST [employer] [facility] Comment: A positive FELI Multiplex indicates the presence of detectable antibodies to one or more of the component analytes consisting of double stranded DNA (dsDNA), chromatin, ribonucleoprotein (TYPING SECRETARY), Mojica/TYPING SECRETARY (Sm/TYPING SECRETARY), Mojica (Sm), SS-A, SS-B, Bozena-1, centromere B, Scl-70 and ribosomal P. Further laboratory testing may be considered if clinically indicated. For additional information, please refer to http://education.[employer]/faq/JEV038 (This link is being provided for informational/ educational purposes only.) ?? Blood Structure of peripheral vein / Unknown Venipuncture / Unknown 03/23/2024 4:48 PM EST 03/23/2024 5:31 PM EST Narrative [facility] [place] [facility] - 03/25/2024 12:23 PM EST [facility] Received Date: Alonzo Persaud MD LAB BLOOD ORDERABLES Final Result [address] [facility], [place] [address], [place] [phone] [employer] [address], [place] [address], [place] [phone] * (ABNORMAL) Lactate Dehydrogenase (03/23/2024 4:48 PM EST) LDH 285(H) 135 - 225 U/L 03/23/2024 6:41 PM EST [facility] Blood Structure of peripheral vein / Unknown Venipuncture / Unknown 03/23/2024 4:48 PM EST 03/23/2024 5:31 PM EST Alonzo Persaud MD LAB BLOOD ORDERABLES Final Result [facility] [address] [place] [address], [place] * Gamma Glutamyl Transferase (03/23/2024 4:48 PM EST) GGT 35 5 - 61 U/L 03/23/2024 6:09 PM EST [facility] Blood Structure of peripheral vein / Unknown Venipuncture / Unknown 03/23/2024 4:48 PM EST 03/23/2024 5:31 PM EST Alonzo Persaud MD LAB BLOOD ORDERABLES Final Result [facility] [address] [place] [address], [place] * (ABNORMAL) IgA (03/23/2024 4:48 PM EST) Immunoglobulin A 319(H) 47 - 310 mg/dL 03/24/2024 8:01 AM EST [employer] [facility] Blood Structure of peripheral vein / Unknown Venipuncture / Unknown 03/23/2024 4:48 PM EST 03/23/2024 5:31 PM EST Narrative [facility] [place] [facility] - 03/24/2024 8:01 AM EST [facility] Received Date: Alonzo Persaud MD LAB BLOOD ORDERABLES Final Result Performing Organization Address City/[facility]/ZIP Co de Phone Number [facility] [place] [address] [facility] 3rd Floor, [place] [address], [place] [phone] [employer] [facility] [address] [facility] 3rd Floor, [place] [address], [place] [phone] * IgM (03/23/2024 4:48 PM EST) Immunoglobulin M 80 50 - 300 mg/dL 03/24/2024 8:01 AM EST [employer] [facility] Blood Structure of peripheral vein / Unknown Venipuncture / Unknown 03/23/2024 4:48 PM EST 03/23/2024 5:31 PM EST Narrative [facility] [place] [facility] - 03/24/2024 8:01 AM EST [facility] Received Date: us Alonzo Persaud MD LAB BLOOD ORDERABLES Final Result [facility] [place] [address] [facility] 3rd Floor, [place] [address], [place] [phone] [employer] [facility] [address] [facility] 3rd Floor, [place] [address], [place] [phone] * IgG (03/23/2024 4:48 PM EST) IgG, Serum 1448 600 - 1640 mg/dL 03/24/2024 8:01 AM EST [employer] [facility] Blood Structure of peripheral vein / Unknown Venipuncture / Unknown 03/23/2024 4:48 PM EST 03/23/2024 5:31 PM EST Narrative [facility] [place] [facility] - 03/24/2024 8:01 AM EST [facility] Received Date: Alonzo Persaud MD LAB BLOOD ORDERABLES Final Result [facility] [address] [facility] [address] [facility], [place] [address], [place] [phone] [employer] [facility] [address] [facility] [address] [facility], [place] [address], [place] [phone] * Ferritin (03/23/2024 4:48 PM EST) Ferritin 279.0 11.0 - 306.0 ng/mL 03/23/2024 6:09 PM EST [facility] Blood Structure of peripheral vein / Unknown Venipuncture / Unknown 03/23/2024 4:48 PM EST 03/23/2024 5:31 PM EST Alonzo Persaud MD LAB BLOOD ORDERABLES Final Result [facility] [address] [place] [address], [place] * XR Hips Bilateral 5+ vw [...] obtain the completed interpretation. ? Workstation ID: [id number] Narrative 03/23/2024 6:11 PM EST COMPARISON: None. ?? Resulting Agency Comment [id number] Procedure Note Augusto Buck MD - 03/23/2024 [...] possible to obtain thecompleted interpretation. Workstation ID: [id number] us Alonzo Persaud MD IMG XR PROCEDURES [...] obtain the completed interpretation. ? Workstation ID: [id number] Narrative 03/23/2024 6:11 PM EST COMPARISON: None. ?? Resulting Agency Comment [id number] Procedure Note Augusto Buck MD - 03/23/2024 [...] possible to obtain thecompleted interpretation. Workstation ID: [id number] us Alonzo Persaud MD IMG XR PROCEDURES [...] obtain the completed interpretation. ? Workstation ID: [id number] Narrative 03/23/2024 6:11 PM EST COMPARISON: None. ?? Resulting Agency Comment [id number] Procedure Note Augusto Buck MD - 03/23/2024 [...] possible to obtain thecompleted interpretation. Workstation ID: [id number] us Alonzo Persaud MD IMG XR PROCEDURES [...] obtain the completed interpretation. ? Workstation ID: [id number] Narrative 03/23/2024 6:11 PM EST COMPARISON: None. ?? Resulting Agency Comment [id number] Procedure Note Augusto Buck MD - 03/23/2024 [...] possible to obtain thecompleted interpretation. Workstation ID: [id number] us Alonzo Persaud MD IMG XR PROCEDURES [...] obtain the completed interpretation. ? Workstation ID: [id number] Up-to-date CT equipment and radiation dose reduction [...] in the spine. ?? Resulting Agency Comment [id number] Procedure Note Wendi Hollingsworth MD - 02/18/2024 [...] possible to obtain thecompleted interpretation. Workstation ID: [id number] Up-to-date CT equipment and radiation dose reduction techniques wereemployed. CTDIvol: 20.1 mGy. DLP: 572 mGy-cm. Alonzo Persaud MD [facility] CT PROCEDURES Final Re sult * Hepatitis C Antibody w/Reflex to HCV RNA, Quantitative PCR (06/04/2022 5:43 PM EDT) Hepatitis C Antibody NON-REACT BETO NON-REACT BETO 06/05/2022 3:44 AM EDT [facility] Signal To Cut-Off 0.02 <1.00 06/05/2022 3:44 AM EDT [facility] Comment: HCV antibody was non-reactive. There is no laboratory evidence of HCV infection. In most cases, no further action is required. However, if recent HCV exposure is suspected, a test for HCV RNA (test code 02449) is suggested. For additional information please refer to http://education.[employer]/faq/YTQ08l7 (This link is being provided for informational/ educational purposes only.) Blood Structure of peripheral vein / Unknown Venipuncture / Unknown 06/04/2022 5:43 PM EDT 06/04/2022 6:08 PM EDT Narrative PHILLIP ROSARIO - 06/05/2022 3:44 AM EDT [facility] Received Date: us Alonzo Persaud MD LAB BLOOD ORDERABLES Final Result [facility] [address] [facility] 3rd Floor, [place] [address], [place] [phone] [facility] [employer] [facility] [address] [facility] 3rd Floor, [place] [address], [place] [phone] from Last 3 Months or Most Recently Relevant to Health Maintenance Insurance [facility] Care Teams Stallion Manager Relationship Specialty Start Date End Date Cristian Chacon MD [address] [place] [address] PCP - General 06/04/22
--- OUTSIDE RECORDS SUMMARY | 2024-05-11 15:50 | XMS_ITS | Encounter Summary ---
Author Organization [employer] Address [address] [facility] [address] [place] [address] Care Team Providers Care Certified First Assistant Name Role Phone Cristian Chacon MD Primary Care Prov ider Reason for Visit * Reason Comments Care Coordination Outreach Encounter Details Date Type Department Care Team (Latest Contact Info) Description 05/04/2024 Patient Outreach [facility] [address] [place], [place] [phone] Cristian Chacon MD [address] [place] [address] Care Coordination (Outreach) Social History Tobacco Use [...] encounter Progress Notes * Savana Rico - 05/04/2024 2:54 PM EST CHW Savana Rico placed outbound call to patient. No answer at this time. LVM introducing herself from [facility] CM Department, reminding patient of initial assessment appt via telephone on 05/05/24 @ 3:00 PM with Adult Complex Care program services. Requested call back to , as well as for any additional questions or concerns. documented in this encounter Plan of Treatment Upcoming Encounters Date Type Department Care Team ([facility] st Contact Info) Description 05/17/2024 1:30 PM EDT Office Visit [facility] [address] [place] [address] Cristian Chacon MD [address] [place] [address] documented as of this encounter Visit Diagnoses Not on filedocumented in this encounter Additional Health Concerns Assessment Noted Time PHQ-9 Depression Total Score: 16 024 1:19 PM EDT documented as of this encounter Care Teams Certified First Assistant Relationship Specialty Start Date End Date Cristian Chacon MD [address] [place] [address] PCP - General Internal Medicine 03/17/19 [employer] CeoSenior Information Security Architect 11/26/23 documented as of this encounter
--- OUTSIDE RECORDS SUMMARY | 2024-05-11 15:50 | XMS_ITS | Clinical Summary ---
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 Name Role Phone Cristian Chacon MD Primary [...] Type Department Care Team Description 04/21/2024 Telephone [facility] 4th floor Cardiology Medicine [address] [place] [address] 10976 Uniform Patrol Police Officer: Mary Arriaga Telephone Intake, Staff PAC Form/Letter/Record s Request 04/20/2024 9:00 AM EST Follow-Up [facility] [address] [place] [address] 55065 Uniform Patrol Police Officer: Alonzo Baez MD FELI positive (Primary Dx); Arthralgia, unspecified joint; Chest pain, unspecified type; Moderate persistent asthma, unspecified whether complicated 04/08/2024 Telephone [facility] [address] [place] [address] 58011 Uniform Patrol Police Officer: Zaida Rust Telephone Intake, Staff PAC Sick/Symptoms 03/30/2024 Telephone [facility] [address] [place] [address] 56617 Uniform Patrol Police Officer: Alonzo Baez MD PAC Patient Request Call Back; PAC Clinical Questions 03/27/2024 Telephone [facility] [address] [place] [address] 58787 Uniform Patrol Police Officer: Alonzo Caputo MD 03/25/2024 Telephone [facility] [address] [place] [address] 10768 Uniform Patrol Police Officer: Alonzo Caupto MD 03/24/2024 Documentation [facility] [address] [place] [address] 46000 Uniform Patrol Police Officer: Alonzo Caputo MD 03/24/2024 Telephone [facility] [address] [place] [address] 46444 Uniform Patrol Police Officer: Alonzo Caputo MD 03/23/2024 4:00 PM EST - 03/23/2024 11:59 PM EST Hospital Encounter [facility] [address] [place] [address]23 Alonzo Persaud MD Chronic pain of both shoulders; Bilateral hip pain; Neck pain Discharge Disposition: Home or Self Care () 03/23/2024 3:20 PM EST Office Visit [facility] [address] [place] [address] 92546 Uniform Patrol Police Officer: Alonzo Baez MD Chronic pain of both shoulders (Primary Dx); Bilateral hip pain; Neck pain 03/22/2024 Telephone [facility] [address] [place] [address] 08693 Uniform Patrol Police Officer: Zaida Rust Telephone Intake, Staff PAC Provider Requested Call Back Dr Persaud 03/22/2024 Telephone [facility] [address] [place] [address] 96934 Uniform Patrol Police Officer: Alysha Roman Telephone Intake, Staff 03/17/2024 Refill [facility] [address] [place] [address] Uniform Patrol Police Officer: Alonzo Baez MD 03/05/2024 Refill [facility] [address] [place] [address] Uniform Patrol Police Officer: Alonzo Baez MD 02/18/2024 Telephone [facility] [address] [place] [address] Uniform Patrol Police Officer: Alonzo Caputo MD 02/16/2024 12:00 PM EST - 02/16/2024 11:59 PM EST Hospital Encounter [facility] CT Scan Department [address] [place] [address] Rib pain Discharge Disposition: Home or Self [...] Description 06/01/2024 9:00 AM EDT Office Visit [facility] 4th floor Cardiology Medicine [address] [place] [address] 37416 Uniform Patrol Police Officer: Hemal Fritz MD [address] [place] [address] 08/02/2024 1:30 PM EDT Follow-Up [facility] [address] [place] [address] Uniform Patrol Police Officer: Morales Ramsey MD [address] [place] [address] 08/16/2024 2:00 PM EDT Office Visit [facility] [address] [place] [address] 20483 Uniform Patrol Police Officer: Juan Ramon Vallejo, Dennis Whitlock MD [address] [place] [address] 27900 Scheduled Procedures Name Priority Associated Diagnoses Date/Ti [...] Screening 03/02/2024 Depression Screening and Follow-Up 03/02/2024 [employer] ual Screening 03/02/2024 Mammogram 05/20/2024 05/20/2022, 05/01, 05/20/2022, Additional history exists Colon Cancer Screening 11/17/2024 FOBT / Fit Test 11/17/2024 11/18/2023 Basic Metabolic Panel 04/20/2025 04/20/2024 , 04/14/2024, 03/23/2024, Additional history exists RSV Vaccine (60+ years old a nd patients) (1 - 1-dose 75+ series) 07/20/2043 HIV Screening Completed 09/29/2013 Hepatitis C Screening Completed 06/04/2022 Procedures * Due to [place] state law, [...] AM EST FELI positive Arthralgia, unspecified joint [id number] STAT 04/20/19 25 9:23 AM EST FELI [...] XR SHOULDER 2+ VW RIGHT Routine 03/23/19 4:27 PM EST Chronic pain of both [...] Hold for add-ons. 04/20/2024 2:05 PM EST [facility] Comment:Auto resulted. Urine Urine specimen collection, clean catch / Unknown Non-Blood Collection / Unknown 04/20/2024 9:23 AM EST 04/20/2024 9:39 AM EST us Alonzo Persaud MD LAB URINE ORDERABLES Final Result Performing Organization Address City/[facility]/ZIP Co de Phone Number [facility] [address] [place] [address], [place] * (ABNORMAL) DNA AB(DS) Crithidia Titer (04/20/2024 9:23 AM EST) Only the most recent of2 resultswithin the time period is included. DNA Ab Crithidia Titer 1:40(H) <1:10 titer 04/23/2024 12:47 PM EST [facility] ([place]IM[place]Z) Blood Structure of peripheral vein / Unknown Venipuncture / Unknown 04/20/2024 9:23 AM EST 04/20/2024 9:38 AM EST Narrative [facility] - 04/23/2024 12:47 PM EST [facility] Received Date: Alonzo Persaud MD LAB BLOOD ORDERABLES Final Result Performing Organization Address City/[facility]/ZIP Co de Phone Number [facility] [address] [place] [address] 3rd Floor, [place] [address], [place] [phone] [facility] LAO (GIMENEZ) [address] [place], [place] , [place] * (ABNORMAL) Urinalysis W/Reflex to Microscopic & Culture (04/20/2024 9:23 AM EST) Only the most recent of2 resultswithin the time period is included. Color, Urine Yellow Colorless, Light Yellow, Yellow, Dark Yellow 04/20/2024 9:59 AM EST [facility] Clarity, Urine Clear Clear 04/20/2024 9:59 AM EST [facility] Specific [place], Urine 1.024 1.005 - 1.030 04/20/2024 9:59 AM EST [facility] pH, Urine 5.0 4.6 - 8.0 04/20/2024 9:59 AM EST [facility] Protein, Urine 1+(A) Negative 04/20/2024 9:59 AM EST [facility] Glucose, Urine Negative Negative 04/20/2024 9:59 AM EST [facility] Ketones, Urine Negative Negative 04/20/2024 9:59 AM EST [facility] Bilirubin, Urine Negative Negative 04/20/2024 9:59 AM EST [facility] Blood, Urine Negative Negative 04/20/2024 9:59 AM EST [facility] Nitrite, Urine Negative Negative 04/20/2024 9:59 AM EST [facility] Urobilinogen, Urine Normal Normal 04/20/2024 9:59 AM EST [facility] Leukocyte Esterase, Urine Negative Negative 04/20/2024 9:59 AM EST [facility] WBC, Urine 1 0 - 2 /HPF 04/20/2024 9:59 AM EST [facility] RBC, Urine <1 0 - 2 /HPF 04/20/2024 9:59 AM EST [facility] Hyaline Casts, Urine 0 0 - 2 /LPF 04/20/2024 9:59 AM EST [facility] Squamous Epithelial Cells, Urine 2 /HPF 04/20/2024 9:59 AM EST [facility] Bacteria, Urine None None /HPF /HPF 04/20/2024 9:59 AM EST [facility] Mucus, Urine Rare /LPF 04/20/2024 9:59 AM EST [facility] Urine Urine specimen collection, clean catch / Unknown Non-Blood Collection / Unknown 04/20/2024 9:23 AM EST 04/20/2024 9:39 AM EST us Alonzo Persaud MD LAB URINE ORDERABLES Final Result Performing Organization Address City/State/[facility] Co de Phone Number [facility] [address] [place] [address], [place] * (ABNORMAL) DNA Antibody (ds) Crithidia IFA w/Reflex (04/20/2024 9:23 AM EST) Only the most recent of2 resultswithin the time period is included. Pathologist [facility] DNA Ab(ds) Crithidia, IFA Positive(A ) Negative 04/23/2024 12:26 PM EST [facility] ([place]) Blood Structure of peripheral vein / Unknown Venipuncture / Unknown 04/20/2024 9:23 AM EST 04/20/2024 9:38 AM EST Narrative [facility] - 04/23/2024 12:26 PM EST [facility] Received Date: us Alonzo Persaud MD LAB BLOOD ORDERABLES Final Result [address], [place] [address], [employer] (GIMENEZ) [address] [place] [address], [place] * Procalcitonin (04/20/2024 9:23 AM EST) Pathologist [facility] Procalcitonin <0.20 <0.20 ng/mL 04/22/2024 2:53 PM EST [employer] 0091 Comment: Verified by repeat analysis. Procalcitonin levels above 2.00 ng/mL on the first day of ICU admission represent a high risk for progression to severe sepsis and/or septic shock. Procalcitonin Comment See Comments 04/22/2024 2:53 PM EST [employer] 0091 Comment: Interpretation Guidelines Diagnosis of systemic [...] EST 04/20/2024 9:38 AM EST Narrative [facility] - 04/22/2024 2:53 PM EST [facility] Received Date: Alonzo Persaud MD LAB BLOOD ORDERABLES Final Result [facility] [address] [place] [address] [address]rd Floor, [place] [address], [place] [phone] [employer] [facility] [address] [place] [address], [place] [phone] * (ABNORMAL) CBC Auto Differential (04/20/2024 9:23 AM EST) Only the most recent of2 resultswithin the time period is included. WBC 12.4(H) 3.8 - 10.8 10*3/uL 04/20/2024 9:47 AM EST [facility] RBC 4.34 3.80 - 5.10 10*6/uL 04/20/2024 9:47 AM [facility] Hemoglobin 12.3 11.7 - 15.5 g/dL 04/20/2024 9:47 AM [facility] Hematocrit 39.1 35.0 - 45.0 % 04/20/2024 9:47 AM [facility] MCV 90.1 80.0 - 100.0 fL 04/20/2024 9:47 AM [facility] MCH 28.3 27.0 - 33.0 pg 04/20/2024 9:47 AM [facility] MCHC 31.5(L) 32.0 - 36.0 g/dL 04/20/2024 9:47 AM [facility] RDW 13.4 11.0 - 15.0 % 04/20/2024 9:47 AM [facility] Platelets 351 140 - 400 10*3/uL 04/20/2024 9:47 AM [facility] MPV 9.4 7.5 - 12.5 fL 04/20/2024 9:47 AM [facility] Neutrophil % 88.3 % 04/20/2024 9:47 AM [facility] Immature Grans % 1.1(H) 0.0 - 0.9 % 04/20/2024 9:47 AM [facility] Lymphocyte % 6.1 % 04/20/2024 9:47 AM [facility] Monocyte % 4.1 % 04/20/2024 9:47 AM [facility] Eosinophil % 0.2 % 04/20/2024 9:47 AM [facility] Basophil % 0.2 % 04/20/2024 9:47 AM [facility] Neutrophil # 10.92(H) 1.50 - 7.80 10*3/uL 04/20/2024 9:47 AM [facility] Immature Grans # 0.14(H) <=0.03 10*3/uL 04/20/2024 9:47 AM [facility] Lymphocyte # 0.80(L) 0.85 - 3.90 10*3/uL 04/20/2024 9:47 AM [facility] Monocyte # 0.50 0.20 - 0.95 10*3/uL 04/20/2024 9:47 AM [facility] Eosinophil # <0.03 0.02 - 0.50 10*3/uL 04/20/2024 9:47 AM EST [facility] Basophil # <0.03 0.00 - 0.20 10*3/uL 04/20/2024 9:47 AM EST [facility] nRBC % 0.0 /100 WBCs 04/20/2024 9:47 AM EST [facility] nRBC # <0.01 <0.01 10*3/uL 04/20/2024 9:47 AM EST [facility] Blood Structure of peripheral vein / Unknown Venipuncture / Unknown 04/20/2024 9:23 AM EST 04/20/2024 9:38 AM EST us Alonzo Persaud MD LAB BLOOD ORDERABLES Final Result Performing Organization Address City/State/[facility] Co de Phone Number [facility] [address] [place] [address], [place] * Microalbumin, Random Urine with Creatinine (04/20/2024 9:23 AM EST) Only the most recent of2 resultswithin the time period is included. Microalbumin, Urine <2.0 mg/dL 04/20/2024 12:17 PM EST [facility] Creatinine, Urine 186 15 - 278 mg/dL 04/20/2024 12:17 PM EST [facility] Microalb/Creat Ratio, Random Urine 04/20/2024 12:17 PM EST [facility] Comment: < 1.0 mcg/mgCr Microalbumin Reference Range: Normal ? <30 mcg/mg Creatinine Microalbuminuria ? 30-300 mcg/mg Creatinine Clinical Albuminuria >300 mcg/mg Creatinine Reference: ADA Guideline. Diabetes Care. 2004;27 (suppl 1) Urine Voided urine specimen / Unknown Non-Blood Collection / Unknown 04/20/2024 9:23 AM EST 04/20/2024 9:39 AM EST us Alonzo Persaud MD LAB URINE ORDERABLES Final Result [facility] [address] [place] [address], [facility] [address] [place] [address], * (ABNORMAL) DNA Antibody, Double-Stranded (04/20/2024 9:23 AM EST) Only the most recent of2 resultswithin the time period is included. [facility] DNA (Ds) Antibody 7(H) IU/mL 025 9:50 PM EST [facility] Comment: ? IU/mL ? Interpretation ? < or = 4 ?Negative ? 5-9 ? Indeterminate ? > or = 10 ?? Positive Blood Structure of peripheral vein / Unknown Venipuncture / Unknown 04/20/2024 9:23 AM EST 04/20/2024 9:38 AM EST Narrative [facility] - 04/21/2024 9:50 PM EST [facility] Received Date: Alonzo Persaud MD LAB BLOOD ORDERABLES Final Result [facility] [address] [facility] [address]rd Floor, [place] [address], [place] [phone] [employer] [facility] [address] [facility] 3rd Floor, [place] [address], [place] [phone] * Sedimentation Rate (04/20/2024 9:23 AM EST) Only the most recent of2 resultswithin the time period is included. [facility] Rate 23 <30 mm/Hr mm/Hr 04/20/2024 10:04 AM EST [facility] Blood Structure of peripheral vein / Unknown Venipuncture / Unknown 04/20/2024 9:23 AM EST 04/20/2024 9:38 AM EST us Alonzo Persaud MD LAB BLOOD ORDERABLES Final Result Performing Organization Address City/[facility]/ZIP Co de Phone Number [facility] [address] [place] [address], * Complement C3 (04/20/2024 9:23 AM EST) Only the most recent of2 resultswithin the time period is included. Complement Component C3C 101 83 - 193 mg/dL 04/21/2024 4:22 AM EST [employer] [facility] Blood Structure of peripheral vein / Unknown Venipuncture / Unknown 04/20/2024 9:23 AM EST 04/20/2024 9:38 AM EST Narrative [facility] - 04/21/2024 4:22 AM EST [facility] Received Date:[id number] us Alonzo Persaud MD LAB BLOOD ORDERABLES Final Result Performing Organization Address City/[facility] Co de Phone Number [facility] [address] [facility] [address]rd Floor, [place] [address], [facility] [facility] [address] [facility] 3rd Floor, [place] [address], [place] [phone] * Complement C4 (04/20/2024 9:23 AM EST) Only the most recent of2 resultswithin the time period is included. Complement Component C4C 21 15 - 57 mg/dL 04/21/2024 4:22 AM EST [employer] [facility] Blood Structure of peripheral vein / Unknown Venipuncture / Unknown 04/20/2024 9:23 AM EST 04/20/2024 9:38 AM EST Narrative [facility] - 04/21/2024 4:22 AM EST [facility] Received Date:[id number] Alonzo Persaud MD LAB BLOOD ORDERABLES Final Result [facility] [address] [facility] [address]rd Floor, [place] [address], [place] [phone] [employer] [facility] [address] [facility] 3rd Floor, [place] [address], [place] [phone] * (ABNORMAL) C-Reactive Protein (04/20/2024 9:23 AM EST) Only the most recent of2 resultswithin the time period is included. C Reactive Protein 10.5(H) <=9.9 mg/L 04/20/2024 10:34 AM EST [facility] Blood Structure of peripheral vein / Unknown Venipuncture / Unknown 04/20/2024 9:23 AM EST 04/20/2024 9:38 AM EST Alonzo Persaud MD LAB BLOOD ORDERABLES Final Result Performing Organization Address [facility] Co de Phone Number [facility] [address] [place] [address], * (ABNORMAL) Creatine Kinase (04/20/2024 9:23 AM EST) Only the most recent of2 resultswithin the time period is included. CK 35(L) 38 - 206 U/L 04/20/2024 10:34 AM EST [facility] Blood Structure of peripheral vein / Unknown Venipuncture / Unknown 04/20/2024 9:23 AM EST 04/20/2024 9:38 AM EST Alonzo Persaud MD LAB BLOOD ORDERABLES Final Result [facility] [address] [place] [address] [place] [address], * (ABNORMAL) Comprehensive Metabolic Panel (04/20/2024 9:23 AM EST) Only the most recent of2 resultswithin the time period is included. NA 139 135 - 145 mmol/L 04/20/2024 10:34 AM [facility] K 3.8 3.5 - 5.3 mmol/L 04/20/2024 10:34 AM [facility] Cl 105 98 - 107 mmol/L 04/20/2024 10:34 AM [facility] CO2 24 22 - 32 mmol/L 04/20/2024 10:34 AM [facility] Anion Gap 10 5 - 15 04/20/2024 10:34 AM [facility] Glucose 177(H) 65 - 99 mg/dL 04/20/2024 10:34 AM [facility] Creatinine 0.73 0.50 - 1.20 mg/dL 04/20/2024 10:34 AM [facility] Calcium 8.4(L) 8.6 - 10.5 mg/dL 04/20/2024 10:34 AM [facility] Total Protein 6.9 6.0 - 8.0 g/dL 04/20/2024 10:34 AM [facility] Albumin 3.4(L) 3.5 - 5.2 g/dL 04/20/2024 10:34 AM [facility] Bilirubin, Total 0.3 0.2 - 1.2 mg/dL 04/20/2024 10:34 AM [facility] Alkaline Phosphatase 50 35 - 129 U/L 04/20/2024 10:34 AM [facility] AST 14 10 - 40 U/L 04/20/2024 10:34 AM [facility] ALT 11 10 - 40 U/L 04/20/2024 10:34 AM EST [facility] BUN 24(H) 7 - 23 mg/dL 04/20/2024 10:34 AM EST [facility] eGFR >90 >=60 mL/min/1. 73m2 04/20/2024 10:34 AM EST [facility] Comment:The estimated glomer ular [...] - 4.2 g/dL 04/20/2024 10:34 AM EST [facility] A/G Ratio 1.0(L) 1.5 - 3.0 04/20/2024 10:34 AM EST [facility] Blood Structure of peripheral vein / Unknown Venipuncture / Unknown 04/20/2024 9:23 AM EST 04/20/2024 9:38 AM EST us Alonzo Persaud MD LAB BLOOD ORDERABLES Final Result [facility] [address] [place] [address], * Interpretation (03/23/2024 4:48 PM EST) FELI Specific Antibody Interpretation See Comments 03/25/2024 12:23 PM EST [facility] Comment: The presence of these two antibodies [...] MD LAB BLOOD ORDERABLES Final Result [facility] [address] [facility] [address]rd [address], [place] [address], [employer] [facility] [address] [facility] 3rd Floor, [place] [address], * (ABNORMAL) Stage 1 (03/23/2024 4:48 PM EST) DNA (Ds) Antibody 11(H) IU/mL 025 12:23 PM EST [facility] Comment: ? IU/mL ? Interpretation ? < or = 4 ?Negative ? 5-9 ? Indeterminate ? > or = 10 ?? Positive Sm Antibody <1.0 NEG <1.0 NEG AI 03/25/2024 12:23 PM EST [facility] SM/WEBLOGIC ADMINISTRATOR Antibody <1.0 NEG <1.0 NEG AI 03/25/2024 12:23 PM EST [facility] WEBLOGIC ADMINISTRATOR Antibody <1.0 NEG <1.0 NEG AI 03/25/2024 12:23 PM EST [facility] Chromatin Antibody 3.0 POS(A) <1.0 NEG AI 03/25/2024 12:23 PM EST [employer] [facility] Comment: ANTIBODY PREVALENCE IN TIER 1 [...] Sjogren's syndrome and 8% polymyositis. ?? Ribonucleoprotein (WEBLOGIC ADMINISTRATOR) antibodies are to WEBLOGIC ADMINISTRATOR A and/or WEBLOGIC ADMINISTRATOR 68kD proteins; antibodies to one or both are present in >80% MCTD, 22% to 48% SLE, 14% systemic sclerosis, 12% Sjogren's and 8% polymyositis. ?? Sm/WEBLOGIC ADMINISTRATOR antibodies are directed to epitopes formed in a complex of Sm and WEBLOGIC ADMINISTRATOR; antibodies to the Sm/WEBLOGIC ADMINISTRATOR complex are present in 54% to 94% MCTD, 30% SLE, 4% systemic sclerosis, and 9% Sjogren's and polymyositis. ?? Sm antibody is present in 20% to 30% SLE, 8% MCTD, 10% polymyositis, 0% systemic sclerosis and 4% Sjogren's syndrome. ?? Double stranded DNA, Chromatin, Ribonucleoprotein, Sm/WEBLOGIC ADMINISTRATOR complex and Sm antibodies are present in <2% of normal blood donors. ?? The [facility] does not rule out autoimmune disease characterized by other autoantibody specificities such as rheumatoid arthritis, autoimmune hepatitis, primary biliary cirrhosis, autoimmune thyroiditis, [place]'s disease, pernicious anemia, autoimmune neuropathies, vasculitis, celiac disease and bullous disease. Please contact your local [facility] laboratory if you are interested in additional testing. Blood Structure of peripheral vein / Unknown Venipuncture / Unknown 03/23/2024 4:48 PM EST 03/23/2024 5:31 PM EST Narrative [facility] - 03/25/2024 12:23 PM EST [facility] Received Date: us Alonzo Persaud MD LAB BLOOD ORDERABLES Final Result [facility] [address] [facility], [place] [address], [place] [phone] [employer] [facility] [address], [place] [address], * (ABNORMAL) FELI, Titer and Pattern (03/23/2024 4:48 PM EST) FELI Titer 1 1:1280(H) titer 03/30/2024 4:22 PM EST [facility] Comment: ?Reference Range ?<1:40 ?Negative ?1:40-1:80 ?Low Antibody Level ?>1:80 ?Elevated Antibody Level FELI Pattern 1 Nuclear, Homogeneo us(A) 03/30/2024 4:22 PM EST [facility] Comment: Homogeneous pattern is associated with systemic lupus erythematosus (SLE), drug-induced lupus and juvenile idiopathic arthritis. AC-1: Homogeneous International Consensus on FELI Patterns (https://doi.org/10.1515/geop-2427-2016) Blood Structure of peripheral vein / Unknown Venipuncture / Unknown 03/23/2024 4:48 PM EST 03/23/2024 5:31 PM EST Narrative [facility] - 03/30/2024 4:22 PM EST [facility] Received Date: us Alonzo Persaud MD LAB BLOOD ORDERABLES Final Result [facility] [address] [facility] [address] [facility], [address] [facility] [address], [place] [phone] [employer] [facility] [address] [facility] [address]rd [place], [place] [address], * (ABNORMAL) Lykens & Lambda, Free w/Ratio (03/23/2024 4:48 PM EST) Lykens Light Chain, Free, Serum 99.6(H) 3.3 - 19.4 mg/L 03/24/2024 3:56 PM EST [facility] Lambda Light Chain, Free, Serum 60.2(H) 5.7 - 26.3 mg/L 03/24/2024 3:56 PM EST [facility] Lykens/Lambda Light Chains Free With Ratio 1.65 0.26 - 1.65 03/24/2024 3:56 PM EST [facility] Comment: Free kappa/lambda ratio in serum of [...] 4:48 PM EST 03/23/2024 5:31 PM EST [facility] PHILLIP ROSARIO - 03/24/2024 3:56 PM EST [facility] Received Date: Alonzo Persaud MD LAB BLOOD ORDERABLES Final Result PHILLIP ROSARIO [address] [facility] 3rd Floor, [place] [address], [place] [phone] [facility] 200 [facility] 3rd Floor, [place] [address], [place] [phone] * (ABNORMAL) Protein Electrophoresis w/Reflex to Immunofixation, Serum (03/23/2024 4:48 PM EST) Protein, Total 6.5 6.1 - 8.1 g/dL 03/25/2024 7:04 AM EST [facility] Albumin 3.0(L) 3.8 - 4.8 g/dL 03/25/2024 7:04 AM EST [facility] Alpha 1 Globulin 0.5(H) 0.2 - 0.3 g/dL 03/25/2024 7:04 AM EST [facility] Alpha 2 Globulin 0.9 0.5 - 0.9 g/dL 03/25/2024 7:04 AM EST [facility] Beta 1 Globulin 0.4 0.4 - 0.6 g/dL 03/25/2024 7:04 AM EST [facility] Beta 2 Globulin 0.4 0.2 - 0.5 g/dL 03/25/2024 7:04 AM EST [facility] Gamma Globulin 1.2 0.8 - 1.7 g/dL 03/25/2024 7:04 AM EST [facility] [facility] Interpretation See Comments 03/25/2024 7:04 AM EST [employer] [facility] Comment: Pattern consistent with an acute phase reaction Blood Structure of peripheral vein / Unknown Venipuncture / Unknown 03/23/2024 4:48 PM EST 03/23/2024 5:31 PM EST Narrative PHILLIP ROSARIO - 03/25/2024 7:04 AM EST [facility] Received Date: Alonzo Persaud MD LAB BLOOD ORDERABLES Final Result Performing Organization Address City/State/[facility] Co de Phone Number [facility] [address] [facility] 3rd Floor, [place] [address], [facility] [facility] [address] Floor, [place] [address], * Cyclic Citrullinated Peptide (CCP) Antibody, IgG (03/23/2024 4:48 PM EST) Cyclic Citrullinated Peptide (CCP) Ab (IgG) <16 UNITS 03/25/2024 2:15 PM EST [facility] [facility] [employer] [facility] Comment: Reference Range Negative: ?<20 Weak Positive: ? 20-39 Moderate Positive: ?? 40-59 Strong Positive: ? >59 Blood Structure of peripheral vein / Unknown Venipuncture / Unknown 03/23/2024 4:48 PM EST 03/23/2024 5:31 PM EST Narrative PHILLIP ROSARIO - 03/25/2024 2:15 PM EST [facility] Received Date:[id number] Alonzo Persaud MD LAB BLOOD ORDERABLES Final Result PHILLIP ROSARIO [address] [facility] 3rd Floor, [place] [address], [facility] 200 [facility] 3rd Floor, [place] [address], * Lyme Antibody Screen w/Reflex to Blot (03/23/2024 4:48 PM EST) Lyme Ab Screen <0.90 index 03/24/2024 11:29 AM EST [facility] Comment: ? Index ?Interpretation ? ----- ? [...] 5:31 PM EST Narrative PHILLIP ROSARIO - 03/24/2024 11:29 AM EST [facility] Received Date: us Alonzo Persaud MD LAB BLOOD ORDERABLES Final Result Performing Organization Address [facility]/ZIP Co de Phone Number [facility] [address], [place] [address], [place] [phone] [facility] [address], [place] [address], [place] [phone] * (ABNORMAL) FELI Screen, IFA, w/Reflex to Titer & Pattern (03/23/2024 4:48 PM EST) FELI Screen, IFA POSITIVE (A) NEGATIVE 03/30/2024 4:21 PM EST [facility] Comment: FELI IFA is a first line screen for detecting the presence of up to approximately 150 autoantibodies in various autoimmune diseases. A positive FELI IFA result is suggestive of autoimmune disease and reflexes to titer and pattern. Further laboratory testing may be considered if clinically indicated. For additional information, please refer to http://education.[employer]Cell [employer]/faq/HYY535 (This link is being provided for informational/ educational purposes only.) ?? Blood Structure of peripheral vein / Unknown Venipuncture / Unknown 03/23/2024 4:48 PM EST 03/23/2024 5:31 PM EST Narrative [facility] - 03/30/2024 4:21 PM EST [facility] Received Date: us Alonzo Persaud MD LAB BLOOD ORDERABLES Final Result Performing Organization Address City/[facility]/ZIP Co de Phone Number [facility] [address], [place] [address], [place] [phone] [facility] [employer] [facility] [address], [place] [address], * Urine Culture, Routine (03/23/2024 4:48 PM EST) [facility] Culture Mixed genital zachary isolated. These superficial bacteria are not indicative of a urinary tract infection. No further organism identification is warranted on this specimen. 03/24/2024 5:21 PM EST [facility] Urine Urine specimen collection, clean catch / Unknown Non-Blood Collection / Unknown 03/23/2024 4:48 PM EST 03/23/2024 6:19 PM EST Narrative [facility] - 03/24/2024 5:21 PM EST [facility] Received Date: MICRO NUMBER: [id number] SPECIMEN QUALITY: Adequate SOURCE: URINE CLEAN CATCH STATUS: FINAL If clinically indicated, recollect clean-catch, mid-stream urine and transfer immediately to Urine Culture Transport Tube. Alonzo Persaud MD LAB MICROBIOLOGY - GENERAL ORDERABLES Final Result [facility] [address] [facility] 3rd Floor, [place] [address], [facility] [address] [facility] 3rd Floor, [place] [address], * (ABNORMAL) FELI Specific Antibody w/Reflex to [place] (03/23/2024 4:48 PM EST) [facility] FELI Screen, Immunoassay POSITIVE (A) NEGATIVE 03/25/2024 12:23 PM EST [facility] Comment: A positive FELI Multiplex indicates the presence of detectable antibodies to one or more of the component analytes consisting of double stranded DNA (dsDNA), chromatin, ribonucleoprotein (WEBLOGIC ADMINISTRATOR), Mojica/WEBLOGIC ADMINISTRATOR (Sm/WEBLOGIC ADMINISTRATOR), Mojica (Sm), SS-A, SS-B, Bozena-1, centromere B, Scl-70 and ribosomal P. Further laboratory testing may be considered if clinically indicated. For additional information, please refer to http://education.DeCell [employer]/faq/XVS206 (This link is being provided for informational/ educational purposes only.) ?? Blood Structure of peripheral vein / Unknown Venipuncture / Unknown 03/23/2024 4:48 PM EST 03/23/2024 5:31 PM EST Narrative [facility] - 03/25/2024 12:23 PM EST [facility] Received Date: Alonzo Persaud MD LAB BLOOD ORDERABLES Final Result [facility] [address] [facility] 3rd Floor, [place] [address], [place] [phone] [facility] 200 [facility] 3rd Floor, [place] [address], [place] [phone] * (ABNORMAL) Lactate Dehydrogenase (03/23/2024 4:48 PM EST) LDH 285(H) 135 - 225 U/L 03/23/2024 6:41 PM EST [facility] Blood Structure of peripheral vein / Unknown Venipuncture / Unknown 03/23/2024 4:48 PM EST 03/23/2024 5:31 PM EST Alonzo Persaud MD LAB BLOOD ORDERABLES Final Result Performing Organization Address City/[facility]/ZIP Co de Phone Number [facility] [address] [place] [address], * Gamma Glutamyl Transferase (03/23/2024 4:48 PM EST) GGT 35 5 - 61 U/L 03/23/2024 6:09 PM EST [facility] Blood Structure of peripheral vein / Unknown Venipuncture / Unknown 03/23/2024 4:48 PM EST 03/23/2024 5:31 PM EST Alonzo Persaud MD LAB BLOOD ORDERABLES Final Result [facility] [address] [place] [address], [place] * (ABNORMAL) IgA (03/23/2024 4:48 PM EST) Pathologist [facility] Immunoglobulin A 319(H) 47 - 310 mg/dL 03/24/2024 8:01 AM EST [facility] Blood Structure of peripheral vein / Unknown Venipuncture / Unknown 03/23/2024 4:48 PM EST 03/23/2024 5:31 PM EST Narrative [facility] - 03/24/2024 8:01 AM EST [facility] Received Date: us Alonzo Persaud MD LAB BLOOD ORDERABLES Final Result [facility] [address], [place] [address], [place] [phone] [facility] [address], [place] [address], [place] [phone] * IgM (03/23/2024 4:48 PM EST) Pathologist [facility] Immunoglobulin M 80 50 - 300 mg/dL 03/24/2024 8:01 AM EST [facility] Blood Structure of peripheral vein / Unknown Venipuncture / Unknown 03/23/2024 4:48 PM EST 03/23/2024 5:31 PM EST Narrative [facility] - 03/24/2024 8:01 AM EST [facility] Received Date: us Alonzo Persaud MD LAB BLOOD ORDERABLES Final Result [facility] [address] [facility] 3rd Floor, [place] [address], [place] [phone] [facility] [address], [place] [address], [place] [phone] * IgG (03/23/2024 4:48 PM EST) IgG, Serum 1448 600 - 1640 mg/dL 03/24/2024 8:01 AM EST [facility] Blood Structure of peripheral vein / Unknown Venipuncture / Unknown 03/23/2024 4:48 PM EST 03/23/2024 5:31 PM EST Narrative [facility] - 03/24/2024 8:01 AM EST [facility] Received Date: Alonzo Persaud MD LAB BLOOD ORDERABLES Final Result [facility] [address] [facility] 3rd Floor, [place] [address], [place] [phone] [facility] 200 [facility] [address]rd [facility], [place] [address], [place] [phone] * Ferritin (03/23/2024 4:48 PM EST) Pathologist [facility] Ferritin 279.0 11.0 - 306.0 ng/mL 03/23/2024 6:09 PM EST [facility] Blood Structure of peripheral vein / Unknown Venipuncture / Unknown 03/23/2024 4:48 PM EST 03/23/2024 5:31 PM EST Alonzo Persaud MD LAB BLOOD ORDERABLES Final Result [facility] [address] [place] [address], [place] * XR Hips Bilateral 5+ vw [...] obtain the completed interpretation. ? Workstation ID: [id number] Narrative 03/23/2024 6:11 PM EST COMPARISON: None. ?? Resulting Agency Comment [id number] Procedure Note Augusto Buck MD - 03/23/2024 [...] possible to obtain thecompleted interpretation. Workstation ID: [id number] us Alonzo Persaud MD IMG XR PROCEDURES [...] obtain the completed interpretation. ? Workstation ID: [id number] Narrative 03/23/2024 6:11 PM EST COMPARISON: None. ?? Resulting Agency Comment [id number] Procedure Note Augusto Buck MD - 03/23/2024 [...] possible to obtain thecompleted interpretation. Workstation ID: [id number] us Alonzo Persaud MD IMG XR PROCEDURES [...] obtain the completed interpretation. ? Workstation ID: [id number] Narrative 03/23/2024 6:11 PM EST COMPARISON: None. ?? Resulting Agency Comment [id number] Procedure Note Augusto Buck MD - 03/23/2024 [...] possible to obtain thecompleted interpretation. Workstation ID: [id number] us Alonzo Persaud MD IMG XR PROCEDURES [...] obtain the completed interpretation. ? Workstation ID: [id number] Narrative 03/23/2024 6:11 PM EST COMPARISON: None. ?? Resulting Agency Comment [id number] Procedure Note Augusto Buck MD - 03/23/2024 [...] possible to obtain thecompleted interpretation. Workstation ID: [id number] us Alonzo Persaud MD IMG XR PROCEDURES [...] obtain the completed interpretation. ? Workstation ID: [id number] Up-to-date CT equipment and radiation dose reduction [...] in the spine. ?? Resulting Agency Comment [id number] Procedure Note Wendi Hollingsworth MD - 02/18/2024 [...] possible to obtain thecompleted interpretation. Workstation ID: [id number] Up-to-date CT equipment and radiation dose reduction techniques wereemployed. CTDIvol: 20.1 mGy. DLP: 572 mGy-cm. us Alonzo Persaud MD [facility] PROCEDURES Final Re sult * Hepatitis C Antibody w/Reflex to HCV RNA, Quantitative PCR (06/04/2022 5:43 PM EDT) Hepatitis C Antibody NON-REACT BETO NON-REACT BETO 06/05/2022 3:44 AM EDT [facility] Signal To Cut-Off 0.02 <1.00 06/05/2022 3:44 AM EDT [facility] Comment: HCV antibody was non-reactive. There is no laboratory evidence of HCV infection. In most cases, no further action is required. However, if recent HCV exposure is suspected, a test for HCV RNA (test code 94492) is suggested. For additional information please refer to http://education.edupristine/faq/MAX35j7 (This link is being provided for informational/ educational purposes only.) Blood Structure of peripheral vein / Unknown Venipuncture / Unknown 06/04/2022 5:43 PM EDT 06/04/2022 6:08 PM EDT Narrative [facility]IP ROSARIO - 06/05/2022 3:44 AM EDT [facility] Received Date: us Alonzo Persaud MD LAB BLOOD ORDERABLES Final Result [facility] [address] [facility] 3rd Floor, [place] [address], [place] [phone] [facility] 200 [facility] 3rd Floor, [place] [address], [place] [phone] from Last 3 Months or Most Recently Relevant to Health Maintenance Insurance [facility] Care Teams White Metal Corrosion Proofer Relationship Specialty Start Date End Date Cristian Chacon MD [address] [place] [address] PCP - General 06/04/22
--- OUTSIDE RECORDS SUMMARY | 2024-05-11 15:50 | XMS_ITS | Encounter Summary ---
Author Organization [email or web address] Address [address] [facility] [address] 7t [place] [address] Care Team Providers Care Administrative Liaison Name Role Phone Cristian Chacon MD Primary Care Prov ider Reason for Visit * Reason Onset Date Comments ER Follow-up 05/04/2024 Encounter Details Date Type Department Care Team ([facility] st Contact Info) Description 05/04/2024 Telephone [facility] MEDICINE [address] [place] [address] Cristian Chacon MD [address] [place] [address] ER Follow-up Social History Tobacco Use Types [...] encounter Miscellaneous Notes * Telephone Encounter - Nichol Alonso RN - 05/04/2024 4:10 PM EST called pt to triage, spoke to pt through [place] Histologic Technician. pt states seen ER [place] [facility], for chest pain, cough, sob, and diagnosed with Bronchitis. pt states they did nothing for me and gave me only Prednisone and no antibiotics. advised to pt that often Bronchitis is viral and antibiotics do not help for a virus. pt denies known fever, rash, sob, vomiting, severe cough, or other associ ated symptoms. advised home care: rest, fluids, steam, humidifier, warm saltwater gargles, lozenges, OTC pain or fever reliever as needed, heat to chest as needed, and call back if worsening or new concerns. given appt Thursday with [facility] provider at 3:30 for exam. pt understands and agrees with plan.notes from the ER visit are already in the chart for review. insurance verified. Protocol Used: Cough (Adult) Protocol-Based Disposition: See in Office for ER follow up within 1 week. Positive Triage Question: * Diagnosed with Bronchitis, ER visit 05/03. * All higher-acuity triage questions were negative Care Advice Discussed: * Reassurance and Education - Cough * Cough Medicines * Cough Syrup With Dextromethorphan * Coughing Spells * Prevent Dehydration * Avoid Tobacco Smoke * Humidifier * Fever Medicines * Reasons To Call Back - Difficulty breathing - Cough lasts more than 3 weeks - Fever lasts more than 3 days - You become worse * Telephone Encounter - Carmen Monika Perkins - 05/04/2024 2:49 PM EST Patient calling to report ED visit on : Date: 05/03 Hospital: [facility] Seen for: Chest Pain, Asthma, Neck Pain, Lung hurting Symptomatic Yes *if yes message should go to Triage Patient advised will forward to team nurse for follow up [phone] pt palestinian [phone] [facility] (Marketing Communications Associate) documented in this encounter Plan of Treatment Upcoming Encounters Date Type Department Care Team ([facility] st Contact Info) Description 05/17/2024 1:30 PM EDT Office Visit [facility] MED [facility] P[facility] [address] [place] [address] Cristian Chacon MD [address] [place] [address] documented as of this encounter Visit Diagnoses Not on filedocumented in this encounter Additional Health Concerns Assessment Noted Time PHQ-9 Depression Total Score: 16 12/21/ 024 1:19 PM EDT documented as of this encounter Care Teams Administrative Liaison Relationship Specialty Start Date End Date Cristian Chacon MD [address] [place] [address] PCP - General Internal Medicine 03/17/19 vIy Payne Fitness TeacherMedical Service Representative 11/26/23 documented as of this encounter
--- OUTSIDE RECORDS SUMMARY | 2024-05-11 15:50 | XMS_ITS | Clinical Summary ---
Author Organization [facility] Address [address] [place] [address] Care Team Providers Care Senior Dot Net Developer Name Role Phone Eduarda Villeda MD Primary Care Provider [phone] Medications No known medications Social History Tobacco [...] complete this topic Insurance MEDICAID Care Teams Senior Dot Net Developer Relationship Specialty Start Date End Date Eduarda Villeda MD [address] [address] PCP - General Internal Medicine 05/12/18
--- OUTSIDE RECORDS SUMMARY | 2024-05-11 15:51 | XMS_ITS | Encounter Summary ---
Author Organization [employer] Address [address] [facility] [address] 7t [place] [address] Care Team Providers Care Wood Fence Installer Name Role Phone Cristian Chacon MD [...] Visit [facility] [address] [place] [address] Cristian Chacon MD [address] [place] [address] documented as of this encounter Visit Diagnoses Not on filedocumented in this encounter Additional Health Concerns Assessment Noted Time PHQ-9 Depression Total Score: 16 024 1:19 PM EDT documented as of this encounter Care Teams Wood Fence Installer Relationship Specialty Start Date End Date Cristian Chacon MD [address] [place] [address] PCP - General Internal Medicine 03/17/19 Ivy Payne Sql Database AdministratorRegulatory Technician 11/26/23 documented as of this encounter
--- OUTSIDE RECORDS SUMMARY | 2024-05-11 15:51 | XMS_ITS | Encounter Summary ---
Author Organization [employer] Address [address] [facility] [address] 7[address] [place] [address] Care Team Providers Care Tufting Machine Fixer Name Role Phone Cristian Chacon MD Primary Care Prov ider Reason for Visit * Reason Onset Date Comments ER Follow-up 04/14/2024 Encounter Details Date Type Department Care Team ([facility] st Contact Info) Description 04/14/2024 Telephone [facility] MEDICINE [address] [place] [address] Cristian Chacon MD [address] [place] [address] ER Follow-up Social History Tobacco Use Types [...] EST [place] [id number] to status check after ER visit for [...] ED visit on : Date: 04/13 Hospital: [facility] Seen for: Asthma Attack Symptomatic No *if yes message should go to Triage Patient advised will forward to team nurse for follow up [phone] bulgarian documented in this encounter Plan of Treatment Upcoming Encounters Date Type Department Care Team (Late st Contact Info) Description 05/17/2024 1:30 PM EDT Office Visit [facility] PEDS [address] [place] [address] Cristian Chacon MD [address] [place], [place] [phone] documented as of this encounter Visit Diagnoses Not on filedocumented in this encounter Additional Health Concerns Assessment Noted Time PHQ-9 Depression Total Score: 16 024 1:19 PM EDT documented as of this encounter Care Teams Tufting Machine Fixer Relationship Specialty Start Date End Date Cristian Chacon MD [address] [place] [address] PCP - General Internal Medicine 03/17/19 Ivy Payne Frame BuilderCredit Union Teller 11/26/23 documented as of this encounter
--- OUTSIDE RECORDS SUMMARY | 2024-05-11 15:51 | XMS_ITS | Encounter Summary ---
Author Organization [facility] Address [address] [place] [address] Care Team Providers Care Government Teacher Name Role Phone Cristian Chacon MD Primary Care Prov ider Encounter Details Date Type Department Care Team (Late Contact Info) Description 03/25/2024 Telephone [facility] Rheumatology [address] [place] [address] Inspector Toys: Alonzo Caputo MD [address] [place] [address] Social History Tobacco Use Types Packs/Day Years [...] Description 06/01/2024 9:00 AM EDT Office Visit [facility] 4th floor Cardiology Medicine [address] [place] [address] Inspector Toys: Hemal Fritz MD [address] [place] [phone] 08/02/2024 1:30 PM EDT Follow-Up [facility] [address] [place] [address] Inspector Toys: Morales Ramsey MD [address] [place] [address] 08/16/2024 2:00 PM EDT Office Visit [facility] [address] [place] [address] Inspector Toys: Dennis Laguna MD [address] [place] [phone] Scheduled Procedures Name Priority Associated Diagnoses Date/Ti me ARTHROSCOPY, SHOULDER, WITH ROTATOR CUFF REPAIR Chronic left shoulder pain ARTHROSCOPY, SHOULDER, DEBRI RONAL, EXTENSIVE Chronic left shoulder pain ARTHROSCOPY, SHOULDER, BICEP S TENODESIS Chronic left shoulder pain documented as of this encounter Visit Diagnoses Not on filedocumented in this encounter Care Teams Government Teacher Relationship Specialty Start Date End Date Cristian Chacon MD [address] [place] [address] PCP - General 06/04/22 documented as of this encounter
--- OUTSIDE RECORDS SUMMARY | 2024-05-11 15:51 | XMS_ITS | Encounter Summary ---
Author Organization [employer] Address [address] 7[address] [place] [address] Care Team Providers Care Senior Construction Estimator Name Role Phone Cristian Chacon MD Primary Care Prov ider Encounter Details Date Type Department Care Team (Latest Contact Info) Description 05/10/2024 Travel Social History Tobacco Use Types Packs/Day [...] 1:30 PM EDT Office Visit [facility] MED & PEDS [address] [place] [address] Cristian Chacon MD [address] [place] [address] documented as of this encounter Visit Diagnoses Not on filedocumented in this encounter Additional Health Concerns Assessment Noted Time PHQ-9 Depression Total Score: 16 024 1:19 PM EDT documented as of this encounter Care Teams Senior Construction Estimator Relationship Specialty Start Date End Date Cristian Chacon MD [address] [place] [address] PCP - General Internal Medicine 03/17/19 Ivy Payne Oxygraph OperatorAuditor/Quality 11/26/23 documented as of this encounter
--- OUTSIDE RECORDS SUMMARY | 2024-05-11 15:51 | XMS_ITS | Encounter Summary ---
Author Organization [employer] Address [address] [place] [address] Care Team Providers Care Liberal Arts Teacher Name Role Phone Cristian Chacon MD Primary Care Prov ider Encounter Details Date Type Department Care Team ([facility] st Contact Info) Description 04/26/2024 11:00 AM EST Office Visit [facility] MED & PEDS [address] [place], [place] [phone] Aida Rae MD [address] [place], [place] [phone] Moderate persistent asthma without complication (Primary Dx) [...] [facility] MED [facility] PED[facility] [address] [place] [address] Cristian Chacon MD [address] [place] [address] documented as of this encounter Visit Diagnoses Diagnosis Moderate persistent asthma without complication- Primary documented in this encounter Additional Health Concerns Assessment Noted Time PHQ-9 Depression Total Score: 16 024 1:19 PM EDT documented as of this encounter Care Teams Liberal Arts Teacher Relationship Specialty Start Date End Date Cristian Chacon MD [address] [place] [address] PCP - General Internal Medicine 03/17/19 Ivy Payne Section LeaderPattern Drum Maker 11/26/23 documented as of this encounter
--- OUTSIDE RECORDS SUMMARY | 2024-05-11 15:51 | XMS_ITS | Encounter Summary ---
Author Organization [employer] Address [address] [facility] 7t [place] [address] Care Team Providers Care Screen Making Technician Name Role Phone Cristian Chacon MD Primary Care Prov ider Encounter Details Date Type Department Care Team (Late st Contact Info) Description 05/10/2024 3:30 PM EDT Office Visit [facility] CH[facility] MED & PEDS [address] [place], [place] [phone] Eduarda Villeda MD [address] [place] [address] Other chest pain (Primary Dx); Multiple joint pain; Moderate persistent asthma without complication; Type 2 diabetes mellitus without complication, without long-term current use of insulin ([facility]); Fall, initial encounter Social History Tobacco Use Types Packs/Day Years Used Date Smoking Tobacco: Never Passive Smoke Exposure: Never Smokeless Tobacco: Never Depression Answer Date Recorded Patient Health Questionnaire-9 Score 16 12/22/2023 Patient Health Questionnaire-9 Score 16 12/22/2023 Last PHQ-9: Questionnaire Data Not on file 1 Housing Stability Answer Date Recorded What is your housing situation today? I have lily sing 05/13/[address] you li [...] EDT Inhaled Oxygen Concentration - - Weight - - Height 157.5 cm (5' 2 ) 05/10/2024 3:22 PM EDT Body Mass Index - - documented in this encounter Progress Notes * Eduarda Villeda MD - 05/10/2024 3:30 PM EDT Subjective Patient ID: Scarlett Liriano is a 53 y.o. female who presents for No chief complaint on file.. HPI Patient is here for hospital discharge follow-up. She was evaluated at [facility] on May 04, 2024 for generalized body aches. She was also complaining of lung pain, burning chest, and whole body aches. She has been on prednisone not antibiotics. She was evaluated by precision dancer. Hadan EKG, basic labs, chest x-ray, inflammatory markers which are not revealing. Patient also reports that she fell in the front of the building today for unclear reasons denies any dizziness prior to the fall. Complaining of a bruise of the right knee. She is supposed to use a walker to ambulate but did not have her walker. States that she feels overall well today She is requesting a refill on her Advair and her glucometer. Patient Active Problem List Diagnosis Allergic rhinitis due to allergen Anxiety and depression Asthma Fibromyalgia Vaginal roberto Elevated blood pressure reading Class 2 obesity due to excess calories without serious comorbidity with body mass index (BMI) of 35.0 to 35.9 in adult Seborrheic dermatitis Breast asymmetry Chronic depression Chronic neck pain Chronic sinusitis Class 1 obesity Depression Disorder of abdomen Flat foot Gastroesophageal reflux disease without esophagitis Headache Hx of hysterectomy Hypothyroidism Insomnia Left carpal tunnel syndrome Left ovarian cyst Low back pain Vitamin D deficiency disease Mass of left ovary Metatarsalgia of both feet Migraine Mild persistent asthma Mood disorder (CMS/HCC) Nontoxic multinodular goiter Osteoarthritis Prediabetes Rhinosinusitis Conjunctivitis of both eyes Right foot pain Upper back pain Multiple episodes of hypoglycemia Chronic pelvic pain in female Pelvic pain Primary hypertension Chronic pain of left knee Redness of both eyes Lymphadenopathy of left cervical region Localized swelling of both lower extremities Chest pain Type 2 diabetes mellitus without complication, without long-term current use of insulin (CMS/HCC) Left hip pain Pre-diabetes Systemic lupus erythematosus (CMS/HCC) Multiple joint pain Abnormal CT scan Furuncle of right axilla Current Outpatient Medications on File Prior to Visit Medication Sig Dispense Refill losartan (Cozaar) 25 MG tablet TOME ОЛЕГ TABLETA TODOS [place] 90 tablet 3 Acetaminophen Extra Strength 500 MG tablet TAKE 2 TABLETS BY MOUTH EVERY 4 TO 6 HOURS IF NEEDED NOTTO EXCEED 8 TABLETS PER 24 HOURS 60 tablet 0 albuterol (2.5 MG/3ML) 0.083% nebulizer solution Take 3 mL (2.5 mg) by nebulization every 6 (six) hours if needed for wheezing. 75 mL 11 albuterol (Ventolin HFA) 108 (90 Base) MCG/ACT inhaler Inhale 2 puffs every 6 (six) hours if neededfor wheezing. 18 g 2 ammonium lactate (Amlactin) 12 % cream APPLY TOPICALLY NEEDED. TO DRY SKIN ON LEGS AND FEET 140 g 1 ammonium lactate (Lac-Hydrin Twelve) 12 % lotion Apply topically if needed for dry skin. 225 g 11 Azelastine HCl 137 MCG/SPRAY solution ADMINISTER 1 SPRAY INTO EACH NOSTRIL 2 TIMES DAILY. 30 mL 3 Banophen 25 MG capsule TAKE 1 CAPSULE (25 MG) BY MOUTH IF NEEDED AT BEDTIME FOR ITCHING. 30 capsule0 Blood Glucose Monitoring Suppl (mapp2linkStyle Lite) w/Device kit 1 Device in the morning. 1 kit 0 Blood Pressure kit To check the BP daily 1 kit 0 Blood Pressure Monitoring (Omron 3 Series BP Monitor) device Check blood pressure on arm as directed DAILY clotrimazole (Lotrimin) 1 % cream Apply topically 2 times daily. 14 g 1 clotrimazole (Mycelex) 10 MG tejal Please specify directions, refills and quantity 7 Tejal 0 cyclobenzaprine (Flexeril) 10 MG tablet Take 1 tablet (10 mg) by mouth if needed in the morning, atnoon, and at bedtime for muscle spasms. 30 tablet 0 diclofenac (Cataflam) 50 MG tablet TOME ОЛЕГ TABLETA DOS VECES AL COLIN 60 tablet 0 EPINEPHrine (Epipen-JR) 0.15 MG/0.3ML injection syringe Inject 0.6 mL (0.3 mg) as directed 1 (one) time for 1 dose. use as directed for allergic reaction and then call 911 1 each 0 fluticasone-salmeterol (Advair HFA) 230-21 MCG/ACT inhaler Inhale 2 puffs in the morning and at bedtime. 12 g 11 folic acid (Folvite) 1 MG tablet TOME ОЛЕГ TABLETA TODOS LOS D furosemide (Lasix) 20 MG tablet Take 1 tablet (20 mg) by mouth Once per day. 14 tablet 0 gabapentin (Neurontin) 300 MG capsule TAKE 1 CAPSULE IN THE AM AND 2 CAPSULES BEFORE BEDTIME 90 capsule 0 ketorolac (Acular) 0.5 % ophthalmic solution INSTILL 1 DROP INTO AFFECTED EYE THREE TIMES A DAY,STARTING 2 DAYS PRIOR TO SURGERY.TAPER DIRECT 10 mL 3 ketotifen (Zaditor) 0.025 % ophthalmic solution Administer 1 drop into both eyes 2 times daily. 5 mL 0 Lancets 33G misc 1 Units before breakfast. 100 each 11 lidocaine (Lidoderm) 5 % patch APPLY 1 PATCH TOPICALLY IN THE MORNING. REMOVE AND DISCARD PATCH WITHIN 12 HOURS OR DIRECTED BY 30 patch 2 loratadine (Claritin) 10 MG tablet Take 1 tablet (10 mg) by mouth in the morning. 30 tablet 11 LORazepam (Ativan) 0.5 MG tablet Take 0.5 mg by mouth. losartan (Cozaar) 25 MG tablet Take 1 tablet (25 mg) by mouth in the morning. 90 tablet 3 magnesium oxide (Mag-Ox) 400 MG tablet TOME ОЛЕГ TABLETA POR V A ORAL TODOS LOS D meclizine (Antivert) 25 MG tablet Take 1 tablet (25 mg) by mouth every 8 (eight) hours if needed for dizziness. 30 tablet 3 miconazole (Micatin) 2 % cream Apply topically 2 times daily. Apply to affected area in groin 56 g 1 montelukast (Singulair) 10 MG tablet Take 1 tablet (10 mg) by mouth in the morning. 30 tablet 5 naproxen (Naprosyn) 500 MG tablet TAKE 1 TABLET (500 MG) BY MOUTH IN THE MORNING AND AT BEDTIME FORMODERATE PAIN NEEDED 60 tablet 0 ondansetron ODT (Zofran-ODT) 4 MG disintegrating tablet DISUELVA ОЛЕГ TABLETA POR V A ORAL CADA SEISHORAS CUANDO SEA NECESARIO FOR NAUSEA 30 tablet 0 pantoprazole (ProtoNix) 40 MG EC tablet TOME ОЛЕГ TABLETA TODO LOS D selenium sulfide (Selsun) 2.5 % shampoo Apply topically if needed each day for dandruff. 600 mL 3 sertraline (Zoloft) 25 MG tablet TAKE 1 TABLET BY MOUTH AT BEDTIME DAILY FOR MOOD/ANXIETY triamcinolone (Kenalog) 0.1 % cream Apply topically if needed in the morning and at bedtime (pain and swelling). 30 g 5 zolpidem (Ambien) 10 MG tablet TOME ОЛЕГ TABLETA TODO LOS D AL ACOSTARSE CUANDO SEA NECESARIO PARA DORMIR [DISCONTINUED] loratadine (Claritin) 10 MG tablet Take 10 mg by mouth. No current facility-administered medications on file prior to visit. Allergies Allergen Reactions Codeine Anaphylaxis SWELLING SWELLING SWELLING SWELLING SWELLING SWELLING SWELLING SWELLING SWELLING SWELLING SWELLING SWELLING Hydroxychloroquine Hives and Rash Morphine Anaphylaxis Peanut-Containing Drug Products Anaphylaxis Other reaction(s): Peanut butter Other Reaction(s): Peanut butter Methotrexate Unknown and Rash Painful mouth sores Painful mouth sores Painful mouth sores Citrullus Vulgaris Other reaction(s): Acute Generalized Exanthematous Pustulosis, Eggs (edible), Watermelon Other reaction(s): Watermelon Cyclobenzaprine Diarrhea Leflunomide Diarrhea Other reaction(s): GI Problems Other reaction(s): GI Problems Other reaction(s): GI Problems Other reaction(s): GI Problems Meperidine Other reaction(s): VOMITING Other reaction(s): Vomiting Other reaction(s): VOMITING Milnacipran Itching Oxycodone-Acetaminophen Itching Aspirin Itching and Rash patient denies allerrgy patient denies allerrgy patient denies allerrgy Duloxetine Rash Penicillins Itching and Rash Review of Systems Constitutional: Negative for appetite change, chills and diaphoresis. Respiratory: Negative for cough, choking and chest tightness. Cardiovascular: Negative for leg swelling. Gastrointestinal: Negative for anal bleeding, blood in stool and constipation. Musculoskeletal: Positive for gait problem. Skin: Negative for rash. Objective BP 128/88 (BP Location: Left arm, Patient Position: Sitting, BP Cuff Size: Adult) Pulse 96 Temp98 ??F (36.7 ??C) (Oral) Resp 20 Ht 5' 2 (1.575 m) LMP (LMP Unknown) SpO2 96% BMI 36.58 kg/m?? Physical Exam Cardiovascular: Rate and Rhythm: Normal rate. Pulmonary: Effort: Pulmonary effort is normal. Abdominal: General: Abdomen is flat. Skin: Comments: 0.5 x 0.5 cm abrasion of the right dorsal aspect of the hand Neurological: Mental Status: She is alert. Assessment/Plan Diagnoses and all orders for this visit: Other chest pain Comments: Patient denies chest pain today Has a follow-up appointment with her genetic supervisor tomorrow to keep Orders: - ECG 12 lead Multiple joint pain Management deferred to rheumatology Moderate persistent asthma without complication - fluticasone-salmeterol (Advair HFA) 230-21 MCG/ACT inhaler; Inhale 2 puffs in the morning and at bedtime. Type 2 diabetes mellitus without complication, without long-term current use of insulin ([facility]) Comments: A1c at goal No change. Orders: - POCT Glucose - POCT HGB A1C - Lancets 33G misc; 1 Units before breakfast. - FREESTYLE LITE test strip; Use to test blood sugar 1 times daily Fall, initial encounter Comments: Fall precautions discussed The use of walker or other gait aid recommended. Orders: - ECG 12 lead documented in this encounter Plan of Treatment Upcoming Encounters Date Type Department Care Team (Late st Contact Info) Description 05/17/2024 1:30 PM EDT Office Visit [facility] MED & PEDS [address] [place] [address] WylieCristian Cook MD [address] [place], [place] [phone] Scheduled Orders Name Type Priority Associated Diagnoses Orde r Schedule POCT Glucose Point of Care Testing Routine Type 2 diabetes mellitus without complication, without long-term current use of insulin ([facility]) Ordered: 05/10/2024 POCT HGB A1C Point of Care Testing Routine Type 2 diabetes mellitus without complication, without long-term current use of insulin ([facility]) Ordered: 05/10/2024 documented as of this encounter Procedures Procedure Name Priority Date/Time Associated Diagnosis Comments ECG 12-LEAD Routine 05/10/2024 4:51 PM EDT Other chest pain Fall, initial encounter documented in this encounter Results * ECG 12 lead (05/10/2024 4:51 PM EDT) Narrative Eduarda Villeda MD - 05/10/2024 4:51 PM EDT Heart rate 92 bpm. ??[place] VIII degrees. ??Normal sinus rhythm. ??No sign of left atrial enlargement/right atrial enlargement. ??No sign of hypertrophy. No ST elevation or ST depression. ??Normal EKG. us Eduarda Villeda MD ECG ORDERABLES Final Resul t documented in this encounter Visit Diagnoses Diagnosis Other chest pain- Primary Multiple joint pain Pain in joint, multiple sites Moderate persistent asthma without complication Type 2 diabetes mellitus without complication, without long-term current use of insulin ([facility]) Fall, initial encounter documented in this encounter Additional Health Concerns Assessment Noted Time PHQ-9 Depression Total Score: 16 024 1:19 PM EDT documented as of this encounter Care Teams Screen Making Technician Relationship Specialty Start Date End Date Cristian Chacon MD [address] [place] [phone] PCP - General Internal Medicine 03/17/19 Ivy Payne Assistant DesignerHome Health Rn 11/26/23 documented as of this encounter
--- OUTSIDE RECORDS SUMMARY | 2024-05-11 15:51 | XMS_ITS | Encounter Summary ---
Author Organization [facility] Address [address] [place] [address] Care Team Providers Care Anesthesiology Resident Name Role Phone Cristian Chacon MD Primary Care Prov ider Reason for Visit * Reason Onset Date Comments PAC Provider Requested Call Back Dr Persaud Encounter Details Date Type Department Care Team ([facility] st Contact Info) Description 03/22/2024 Telephone [facility] Rheumatology Clinic [address] [place], [place] [phone] Supervisor Money Room: Zaida Rust Telephone Intake, Staff PAC Provider [...] contact number available for Scarlett utilizing the [employer] line japanese interpreter services foreign language interpreter. I was unable to reach her and [...] the pain. Please call pt back at [phone] documented in this encounter Plan of Treatment Upcoming Encounters Date Type Department Care Team (Late st Contact Info) Description 06/01/2024 9:00 AM EDT Office Visit [facility] Building 4th floor Cardiology Medicine [address] [place] [phone] Supervisor Money Room: Hemal Fritz MD [address] [place] [phone] 08/02/2024 1:30 PM EDT Follow-Up [facility] Rheum Dermatology Clinic [address] [place] [phone] Supervisor Money Room: Morales Ramsey MD [address] [place] [phone] 08/16/2024 2:00 PM EDT Office Visit [facility] All[facility] [address] [place] [phone] Supervisor Money Room: Juan Ramon Vallejo, Dennis Whitlock MD [address] [place] [phone] Scheduled Procedures Name Priority Associated Diagnoses Date/Ti me ARTHROSCOPY, SHOULDER, WITH ROTATOR CUFF REPAIR Chronic left shoulder pain ARTHROSCOPY, SHOULDER, DEBRI RONAL, EXTENSIVE Chronic left shoulder pain ARTHROSCOPY, SHOULDER, BICEP S TENODESIS Chronic left shoulder pain documented as of this encounter Visit Diagnoses Not on filedocumented in this encounter Care Teams Anesthesiology Resident Relationship Specialty Start Date End Date Cristian Chacon MD [address] [place] [address] PCP - General 06/04/22 documented as of this encounter
--- OUTSIDE RECORDS SUMMARY | 2024-05-11 15:51 | XMS_ITS | Encounter Summary ---
Author Organization [employer] Address [address] [place] [address] Care Team Providers Care Triple Valve Tester Name Role Phone Cristian Chacon MD Primary Care Prov ider Encounter Details Date Type Department Care Team ([facility] st Contact Info) Description 04/13/2024 10:45 AM EST Office Visit [facility] MED & PEDS [address] [place], [place] [phone] Cristian Chacon MD [address] [place] [address] Other chest pain (Primary Dx) Social History [...] was called and EMS transported pt to [facility]. No meds administered. Will check tomorrow for status check. * Peggy Coe RN - 04/13/2024 10:45 AM EST Please status check. documented in this encounter Miscellaneous Notes * Addendum Note - Cristina Martinez MD - 04/13/2024 10:45 AM EST Addended by: CRISTIAN URRUITA on: 04/13/2024 02:18 PM Modules accepted: Orders documented in this encounter Plan of Treatment Upcoming Encounters Date Type Department Care Team (Late st Contact Info) Description 05/17/2024 1:30 PM EDT Office Visit [facility] MED & PEDS [address] [place] [address] Cristian Chacon MD [address] [place] [address] documented as of this encounter Procedures Procedure Name Priority Date/Time Associated Diagnosis Comments ECG 12-LEAD Routine 04/13/2024 2:18 PM EST Other chest pain documented in this encounter Results * ECG 12 lead (04/13/2024 2:18 PM EST) Narrative Cristian Chacon MD - 04/13/2024 2:18 PM EST Supraventricular tachycardia [id number] us Cristian Martinez MD ECG ORDERABLES Fi nal Result documented in this encounter Visit Diagnoses Diagnosis Other chest pain- Primary documented in this encounter Additional Health Concerns Assessment Noted Time PHQ-9 Depression Total Score: 16 024 1:19 PM EDT documented as of this encounter Care Teams Triple Valve Tester Relationship Specialty Start Date End Date Cristian Chacon MD [address] [place] [phone] PCP - General Internal Medicine 03/17/19 Ivy Payne Human Resource StatisticianFacing Cutting Machine Operator 11/26/23 documented as of this encounter
--- OUTSIDE RECORDS SUMMARY | 2024-05-11 15:51 | XMS_ITS | Encounter Summary ---
Author Organization [employer] Address [address] [place] [address] Care Team Providers Care Ambulatory Service Representative Name Role Phone Cristian Chacon MD Primary [...] Description 05/17/2024 1:30 PM EDT Office Visit [facility] MED & PEDS [address] [place] [address] Cristian Chacon MD [address] [place] [address] documented as of this encounter Visit Diagnoses Not on filedocumented in this encounter Additional Health Concerns Assessment Noted Time PHQ-9 Depression Total Score: 16 024 1:19 PM EDT documented as of this encounter Care Teams Ambulatory Service Representative Relationship Specialty Start Date End Date Cristian Chacon MD [address] [place] [address] PCP - General Internal Medicine 03/17/19 Ivy Payne Vacuum Closing Machine OperatorTank Processor 11/26/23 documented as of this encounter
--- OUTSIDE RECORDS SUMMARY | 2024-05-11 15:51 | XMS_ITS | Encounter Summary ---
Author Organization [facility] Address [address] [place] [address] Care Team Providers Care Leasing Agent Name Role Phone Cristian Chacon MD Primary Care Prov ider Reason for Visit * Reason Onset Date Comments PAC Patient Request Call Back 03/30/2024 PAC Clinical Questions 03/30/2024 Encounter Details Date Type Department Care Team ([facility] st Contact Info) Description 03/30/2024 Telephone [facility] Rheumatology Clinic [address] [place] [address] Log Manager: Alonzo Baez MD [address] [place], [place] [phone] PAC Patient Request Call Back; PAC Clinical [...] to how she is feeling please advise [phone] * Telephone Encounter - Payton Dewitt LPN - 03/30/2024 9:38 AM EST Spoke with patient in maori stated she went to PCP on Thursday and they just looked at the cyst. She told them the Doctor gave her antibiotic and they didn't give her anything else. Stated she started feeling better after starting the antibiotic. On Thursday she was doing laundry was up and down the stairs but then Thursday she started feeling Chest pain and end up going to [facility] ER. After doing many test and giving her medication they sent her Home Thursday morning. She feels better. She is taking the the antibiotic since Thursday and also the prednisone 5mg BID on Thursday. Regards, Sushma documented in this encounter Plan of Treatment Upcoming Encounters Date Type Department Care Team (Late st Contact Info) Description 06/01/2024 9:00 AM EDT Office Visit [facility] Building 4th floor Cardiology Medicine [address] [place] [phone] Log Manager: Hemal Fritz MD [address] [place] [address] 08/02/2024 1:30 PM EDT Follow-Up [facility] Rheum Dermatology Clinic [address] [place] [address] Log Manager: Morales Ramsey MD [address] [place] [phone] 08/16/2024 2:00 PM EDT Office Visit [facility] Lung [facility] All[facility] [address] [place] [phone] Log Manager: Juan Ramon Vallejo, Dennis [place] MD [address] [place] [phone] Scheduled Procedures Name Priority Associated Diagnoses Date/Ti me ARTHROSCOPY, SHOULDER, WITH ROTATOR CUFF REPAIR Chronic left shoulder pain ARTHROSCOPY, SHOULDER, DEBRI RONAL, EXTENSIVE Chronic left shoulder pain ARTHROSCOPY, SHOULDER, BICEP S TENODESIS Chronic left shoulder pain documented as of this encounter Visit Diagnoses Not on filedocumented in this encounter Care Teams Leasing Agent Relationship Specialty Start Date End Date Cristian Chacon MD [address] [place] [address] PCP - General 06/04/22 documented as of this encounter
--- OUTSIDE RECORDS SUMMARY | 2024-05-11 15:51 | XMS_ITS | Encounter Summary ---
Author Organization [employer] Address [address] [facility] 7t [place] [address] Care Team Providers Care Manager Universal Name Role Phone Cristian Chacon MD Primary Care Prov ider Reason for Visit * Reason Comments Care Coordination Outreach Encounter Details Date Type Department Care Team (Latest Contact Info) Description 04/26/2024 Patient Outreach [facility] CHC MED & PEDS [address] [place], [place] [phone] Cristian Chacon MD [address] [place] [address] Care Coordination (Outreach) Social History Tobacco Use [...] outbound call to patient introducing herself from [facility], in regards to offering services. Patient's name and was confirmed. Patient agrees to participate in program. Appt. for initial assessment scheduled for 04/28/24 @ 1:00 PM. Patient willneed transportation for appointments. CHW reinforced direct contact information or CM for any additional questions or concerns and extended clinic hours on Mondays and Wednesdays, and Walk-In Urgent Care Located in [facility] of [facility]. Patient provided with after-hours line for [facility], , which offer night time triage service and option to transfer to environmental sampling technician provider if needed. Patient verbalizes understanding, and able to repeat back to telegraphic typewriter operator. documented in this encounter Plan of Treatment Upcoming Encounters Date Type Department Care Team ([facility] st Contact Info) Description 05/17/2024 1:30 PM EDT Office Visit [facility] MED & PEDS [address] [place], [place] [phone] Cristian Chacon MD [address] [place], [place] [phone] documented as of this encounter Visit Diagnoses Not on filedocumented in this encounter Additional Health Concerns Assessment Noted Time PHQ-9 Depression Total Score: 16 024 1:19 PM EDT documented as of this encounter Care Teams Manager Universal Relationship Specialty Start Date End Date Cristian Chacon MD [address] [place] [address] PCP - General Internal Medicine 03/17/19 Ivy Payne Outside Parts SalesmanCanned Food Reconditioning Inspector 11/26/23 documented as of this encounter
--- OUTSIDE RECORDS SUMMARY | 2024-05-11 15:51 | XMS_ITS | Encounter Summary ---
Author Organization [employer] Address [address] [facility] 7t [place] [address] Care Team Providers Care Card Punching Machine Operator Name Role Phone Cristian Chacon MD Primary Care Prov ider Reason for Visit * Reason Onset Date Comments Durable Medical Equipment 04/20/2024 Encounter Details Date Type Department Care Team ([facility] st Contact Info) Description 04/20/2024 Telephone [facility] CHC MED & PEDS [address] [place], [place] [phone] Cristian Chacon MD [address] [place] [address] Durable Medical Equipment Social History Tobacco Use [...] [facility] MED & PEDS [address] [place] [address] Cristian Chacon MD [address] [place] [address] documented as of this encounter Visit Diagnoses Not on filedocumented in this encounter Additional Health Concerns Assessment Noted Time PHQ-9 Depression Total Score: 16 024 1:19 PM EDT documented as of this encounter Care Teams Card Punching Machine Operator Relationship Specialty Start Date End Date Cristian Chacon MD [address] [place] [address] PCP - General Internal Medicine 03/17/19 Ivy Payne [address] Fin[address]aintenance Of [address] Superintendent 11/26/23 documented as of this encounter
--- OUTSIDE RECORDS SUMMARY | 2024-05-11 15:51 | XMS_ITS | Encounter Summary ---
Author Organization [facility] Address [address] [place] [address] Care Team Providers Care Health Information Technologist Name Role Phone Cristian Chacon MD Primary Care Prov ider Reason for Visit * Reason Onset Date Comments PAC Sick/Symptoms 04/08/2024 Encounter Details Date Type Department Care Team (Late st Contact Info) Description 04/08/2024 Telephone [facility] [address] [place], [place] [phone] Cutter Out: Zaida Rust Telephone Intake, Staff PAC Sick/Symptoms [...] AM EST Reached out to pt via English speaking telephonic experimental welder # [id number]. Pt reports that she has been experiencing transient chest pain and b/l foot pain since 03/18/2024. Pt reports that the chest pain is new and that she has an appointment with a Stapler Hand in [place] on 04/28/2024. Pt has been taking two [...] Rivas LPN - 04/12/2024 3:50 PM EST tiltrotor crew chief #[id number] - LMOM for pt to call back. [...] Description 06/01/2024 9:00 AM EDT Office Visit [facility] 4th floor Cardiology Medicine [address] [place] [address] Cutter Out: Hemal Fritz MD [address] [place] [address] 08/02/2024 1:30 PM EDT Follow-Up [facility] [address] [place] [address] Cutter Out: Morales Ramsey MD [address] [place] [address] 08/16/2024 2:00 PM EDT Office Visit [facility] [address] [place] [address] Cutter Out: Juan Ramon Vallejo, Dennis Whitlock MD [address] [place] [address] Scheduled Procedures Name Priority Associated Diagnoses Date/Ti me ARTHROSCOPY, SHOULDER, WITH ROTATOR CUFF REPAIR Chronic left shoulder pain ARTHROSCOPY, SHOULDER, DEBRI RONAL, EXTENSIVE Chronic left shoulder pain ARTHROSCOPY, SHOULDER, BICEP S TENODESIS Chronic left shoulder pain documented as of this encounter Visit Diagnoses Not on filedocumented in this encounter Care Teams Health Information Technologist Relationship Specialty Start Date End Date Cristian Chacon MD [address] [place] [address] PCP - General 06/04/22 documented as of this encounter
--- OUTSIDE RECORDS SUMMARY | 2024-05-11 15:51 | XMS_ITS | Encounter Summary ---
Author Organization [employer] Address [address] [place] [address] Care Team Providers Care Supervisor Agricultural Education Name Role Phone Cristian Chacon Primary Care Provide r Reason for Visit * Reason Comments Weakness - Generalized Encounter Details Date Type Department Care Team ([facility] st Contact Info) Description 04/13/2024 10:47 PM EST - 04/14/2024 3:00 AM EST Emergency [facility] Emergency [address] [place] [phone] Seth Jason MD [address] [place] [address] URI due to influenza A virus (Primary [...] a primary care physician, please call the [facility] at [phone] [facility] a new primary care physician. Please return to the emergency department if you develop any severe change in your symptoms, or if you experience any other new or worsening symptoms or concerns. * Attachments The following attachments cannot be sent through Care Everywhere. * Chest Pain: Musculoskeletal (Bangladeshi) * Influenza (Bangladeshi) documented in this encounter Medications at Time [...] pharmacy. All instructions understood prior to discharge. Trauma Manager: Sophia ID #[id number] * Ambika Merino RN - 04/13/2024 12:40 [...] Date Anxiety Asthma Bronchitis Depression Diabetes mellitus ([facility]) Fibromyalgia Gastritis GERD (gastroesophageal reflux disease) Hypertension Lupus (systemic lupus erythematosus) ([facility]) Migraine Pneumonia Past Surgical History: Procedure Laterality [...] Detected Narrative: Testing was performed using the Pharmacopeia Respiratory Pathogen PCR Assay. All results must [...] Procedure Abnormality Status --------- ------ CBC auto differential[[id number]] Abnormal Final result Please view results for these tests on the individual orders. Abnormal Labs Reviewed RESPIRATORY VIRUS PANEL MOLECULAR STUDY - Abnormal; Notable for the following components: Result Value Influenza A H3 Detected (*) All other components within normal limits Narrative: Testing was performed using the Pharmacopeia Respiratory Pathogen PCR Assay. All results must [...] Given 04/14/2457) ED Course as of 04/14/24237 [facility] Apr 13, 2024 2346 Patient seen and [...] LAB HEMETOLOGY METHOD 04/14/2024 1:27 AM EST [facility] RBC 4.10 3.80 - 4.80 M/mcL LAB HEMETOLOGY METHOD 04/14/2024 1:27 AM EST [facility] Hemoglobin 11.9 11.5 - 16.0 g/dL [...] LAB HEMETOLOGY METHOD 04/14/2024 1:27 AM EST [facility] Basophils Relative 0.4 % LAB HEMETOLOGY METHOD 04/14/2024 1:27 AM [facility] Immature Granulocytes Relative 0.9 % LAB HEMETOLOGY METHOD 04/14/2024 1:27 AM [facility] Neutrophils Absolute 4.53 1.50 - 7.00 K/mcL LAB HEMETOLOGY METHOD 04/14/2024 1:27 AM EST [facility] Lymphocytes Absolute 0.63(L) 1.00 - 5.00 K/mcL LAB HEMETOLOGY METHOD 04/14/2024 1:27 AM EST [facility] Monocytes Absolute 0.22 0.20 - 1.00 K/mcL LAB HEMETOLOGY METHOD 04/14/2024 1:27 AM [facility] Eosinophils Absolute 0.20 0.00 - 0.50 K/mcL LAB HEMETOLOGY METHOD 04/14/2024 1:27 AM EST [facility] Basophils Absolute 0.02 0.00 - 0.20 K/mcL LAB HEMETOLOGY METHOD 04/14/2024 1:27 AM [facility] Immature Granulocytes Absolute 0.05(H) 0.00 - 0.03 K/mcL LAB HEMETOLOGY METHOD 04/14/2024 1:27 AM [facility] Blood Venous blood specimen / Unknown Venipuncture / Unknown 04/14/2024 12:55 AM EST 04/14/2024 1:22 AM EST us Ashley NELSON LAB BLOOD ORDERABLES Final Resul t [facility] [address] [place] [address], * Troponin I high sensitivity (04/14/2024 12:55 AM EST) High Sensitivity Troponin I 9 <=54 ng/L LAB CHEMISTRY METHOD 04/14/2024 1:47 AM EST [facility] Blood Venous blood specimen / Unknown Venipuncture / Unknown 04/14/2024 12:55 AM EST 04/14/2024 1:22 AM EST Narrative [facility] - 04/14/2024 1:47 AM EST High levels of biotin in samples may falsely decrease hsTroponin values. ??Use caution when interpreting hsTroponin results in patients taking biotin who exhibit renal impairment (eGFR <60) or in patients taking more than 20 mg/day of biotin. Ashley Melo [place] LAB BLOOD ORDERABLES Final Resul t Performing Organization Address [facility] Co de Phone Number [facility] [address] [place] [address], [place] [phone] * Lipase (04/14/2024 12:55 AM EST) Lipase 58 13 - 75 unit/L LAB CHEMISTRY METHOD 04/14/2024 2:14 AM EST [facility] Blood Venous blood specimen / Unknown Venipuncture / Unknown 04/14/2024 12:55 AM EST 04/14/2024 1:22 AM EST [facility] BLOOD ORDERABLES Final Resul t Performing Organization Address [facility]/ZIP Co de Phone Number [facility] [address] [place] [address], [place] [phone] * (ABNORMAL) Comprehensive metabolic panel (04/14/2024 12:55 AM EST) Sodium 135 133 - 145 mmol/L LAB CHEMISTRY METHOD 04/14/2024 2:14 AM EST [facility] Potassium 4.2 3.5 - 5.5 mmol/L LAB CHEMISTRY METHOD 04/14/2024 2:14 AM EST [facility] Chloride 101 96 - 110 mmol/L [...] LAB CHEMISTRY METHOD 04/14/2024 2:14 AM EST [facility] Total Bilirubin 0.4 0.0 - 1.4 mg/dL LAB CHEMISTRY METHOD 04/14/2024 2:14 AM EST [facility] Blood Venous blood specimen / Unknown Venipuncture / Unknown 04/14/2024 12:55 AM EST 04/14/2024 1:22 AM EST [facility] [employer] [place] LAB BLOOD ORDERABLES Final Resul t [facility]) [facility] [address] [place] [address], [place] [phone] * ECG 12 lead (04/14/2024 12:41 AM EST) Ventricular Rate ECG 102 BPM GEMUSE Atrial Rate 102 BPM GEMUSE P-R Interval 118 ms GEMUSE QRS Duration 66 ms GEMUSE Q-T Interval 326 ms GEMUSE QTc 424 ms GEMUSE P Wave [place] 37 degrees GEMUSE R [place] 15 degrees GEMUSE T [place] 29 degrees GEMUSE ECG Interpretation Sinus tachycardia Low voltage QRS Borderline ECG When compared with ECG of 19-MAR-2024 13:38, No significant change was found Confirmed by KIMBERLY WARNER ([id number]) on 04/17/2024 8:42:22 AM GEMUSE 04/14/2024 12:4 1 AM EST 04/17/2024 8:42 AM EST [employer] PA ECG ORDERABLES Final Result GEMUSE * [...] Signed Date: 04/14/2024 07:59 ET Workstation ID: [id number] Transcribed By: Self Edit Transcribed Date: 04/14/2024 [...] Signed Date: 04/14/2024 07:59 ET Workstation ID: [id number] Transcribed By: Self Edit Transcribed Date: 04/14/2024 07:57 ET Seth Jason MD IMG XR PROCEDURES Final Result * (ABNORMAL) Respiratory virus panel molecular study (04/13/2024 1:02 PM EST) Pathologist [facility] Adenovirus Detection by PCR Not Detected Not [...] LAB MICROBIOLOGY METHOD 04/13/2024 2:09 PM EST [facility] Mycoplasma pneumo by PCR Not Detected Not Detected LAB MICROBIOLOGY METHOD 04/13/2024 2:09 PM EST [facility] Chlamydia pneumoniae Not Detected Not Detected LAB MICROBIOLOGY METHOD 04/13/2024 2:09 PM [facility] SARS COV-2 Not Detected Not Detected LAB MICROBIOLOGY METHOD 04/13/2024 2:09 PM [facility] Swab Both anterior nares / Unknown Non-blood Collection / Unknown 04/13/2024 1:02 PM EST 04/13/2024 1:02 PM EST [facility] - 04/13/2024 2:09 PM EST Testing was performed using the Pharmacopeia Respiratory Pathogen PCR Assay. All results must [...] MICROBIOLOGY - GEN ERAL ORDERABLES Final Result [facility] [address] [place] [address], documented in this encounter Visit Diagnoses Diagnosis [...] Last Indicated Resolved Time Influenza 04/13/2024 04/13/2024 05/07/2024 7:04 PM EST documented as of this encounter Care Teams Supervisor Agricultural Education Relationship Specialty Start Date End Date Cristian Chacon [address] [place], [place] PCP - General Internal Medicine 10/17/20 documented as of this encounter
--- OUTSIDE RECORDS SUMMARY | 2024-05-11 15:51 | XMS_ITS | Encounter Summary ---
Author Organization [email or web address] Address [address] [facility] [address]t [place] [address] Care Team Providers Care Kiln Maintenance Name Role Phone Cristian Chacon MD Primary Care Prov ider Reason for Visit * Reason Comments Care Coordination Outreach Encounter Details Date Type Department Care Team (Latest Contact Info) Description 04/27/2024 Patient Outreach [facility] CHC MED & PEDS [address] [place], [place] [phone] Cristian Chacon MD [address] [place] [address] Care Coordination (Outreach) Social History Tobacco Use [...] Rico - 04/27/2024 3:30 PM EST CHW Svaana Rico placed outbound call to patient. No answer at this time. LVM introducing herself from [facility] CM Department, reminding patient of initial [...] 1:30 PM EDT Office Visit [facility] MED & PEDS [address] [place] [address] Cristian Chacon MD [address] [place] [address] documented as of this encounter Visit Diagnoses Not on filedocumented in this encounter Additional Health Concerns Assessment Noted Time PHQ-9 Depression Total Score: 16 024 1:19 PM EDT documented as of this encounter Care Teams Kiln Maintenance Relationship Specialty Start Date End Date Cristian Chacon MD [address] [place] [address] PCP - General Internal Medicine 03/17/[address] Bailiff Or SheriffCareer Coach 11/26/23 documented as of this encounter
--- OUTSIDE RECORDS SUMMARY | 2024-05-11 15:51 | XMS_ITS | Encounter Summary ---
Author Organization [employer] Address [address] [facility] [address] [place] [address] Care Team Providers Care Patient Carrier Name Role Phone Cristian Chacon MD Primary Care Prov ider Reason for Visit * Reason Onset Date Comments status check 05/11/2024 Encounter Details Date Type Department Care Team ([facility] st Contact Info) Description 05/11/2024 Telephone [facility] CHC MED & PEDS [address] [place], [place] [phone] Cristian Chacon MD [address] [place] [address] status check Social History Tobacco Use Types Packs/Day Years [...] encounter Miscellaneous Notes * Telephone Encounter - Peggy Coe RN - 05/11/2024 10:13 AM EDT TC X1 to pt for status check s/p fall yesterday in front of the building. No answer. LVM to return call and remind pt of upcoming appt next week with PCP. documented in this encounter Plan of Treatment Upcoming Encounters Date Type Department Care Team (Late st Contact Info) Description 05/17/2024 1:30 PM EDT Office Visit [facility] MED & PEDS [address] [place] [address] Cristian Chacon MD [address] [place] [address] documented as of this encounter Visit Diagnoses Not on filedocumented in this encounter Additional Health Concerns Assessment Noted Time PHQ-9 Depression Total Score: 16 024 1:19 PM EDT documented as of this encounter Care Teams Patient Carrier Relationship Specialty Start Date End Date Cristian Chacon MD [address] [place] [address] PCP - General Internal Medicine 03/17/19 Ivy Payne Saddle MakerTray Delivery Aide 11/26/23 documented as of this encounter
--- OUTSIDE RECORDS SUMMARY | 2024-05-11 15:52 | XMS_ITS | Encounter Summary ---
Author Organization [employer] Address [address] [facility] [address]t [place] [address] Care Team Providers Care Roping Tender Name Role Phone Cristian Chacon MD Primary Care Prov ider Reason for Visit * Reason Onset Date Comments Nurse Triage 11/18/2022 Encounter Details Date Type Department Care Team (Late st Contact Info) Description 11/18/2022 Telephone [facility] CHC MED & PEDS [address] [place], [place] [phone] Cristian Chacon MD [address] [place] [address] Nurse Triage Social History Tobacco Use Types [...] accepted this outcome Please contact pt at [phone] Panamanian Speaker documented in this encounter Plan of Treatment Upcoming Encounters Date Type Department Care Team (Late st Contact Info) Description 05/17/2024 1:30 PM EDT Office Visit [facility] MED & PEDS [address] [place] [address] Cristian Chacon MD [address] [place] [address] documented as of this encounter Visit Diagnoses Not on filedocumented in this encounter Care Teams Roping Tender Relationship Specialty Start Date End Date Cristian Chacon MD [address] [place] [address] PCP - General Internal Medicine 03/17/19 Ivy Payne Stenographer Print ShopCarpenters 03/03/23 11/25/23 Ivy Payne Medical Assisting InstructorCarpenters 11/26/23 documented as of this encounter
--- OUTSIDE RECORDS SUMMARY | 2024-05-11 15:52 | XMS_ITS | Encounter Summary ---
Author Organization [employer] Address [address] [facility] [place] [address] Care Team Providers Care Senior Architect/Design Manager Name Role Phone Cristian Chacon MD Primary Care Prov ider Encounter Details Date Type Department Care Team (Late st Contact Info) Description 05/02/2024 Orders Only [facility] External Provider, [facility] Social History Tobacco Use Types Packs/Day [...] Description 05/17/2024 1:30 PM EDT Office Visit [facility] CHC MED & PEDS [address] [place] [address] Cristian Chacon MD [address] [place] [address] documented as of this encounter Procedures Procedure Name Priority Date/Time Associated Diagnosis Comments US PELVIS TRANSVAGINAL Routine 05/03/2024 9:16 AM EST documented in this encounter Results * US Pelvis Transvaginal (05/03/2024 9:16 AM EST) Anatomical Region Laterality Modality Pelvis Ultrasound 05/03/2024 9:16 AM EST Narrative 05/03/2024 9:18 AM EST ? [facility] ?[address] ?[place] [address] ? Ultrasound Report ? Signed ? Patient: Liriano,Scarlett ?MR#: [id number] ?? [id number] ? : 1970 ?Acct:[id number] ? Age/Sex: 53 / F ?ADM Date: 03/03/25 ? Loc: HO.US ? Attending Dr: Gavino Wynne MD ? Ordering Physician: Gavino Wynne MD ?? Date of Service: 05/02/24 ?? Procedure(s): US pelvic and transvaginal ?? Accession Number(s): [id number] ? cc: Saskia Rosas MD; Gavino Wynne [...] 0917 ? DD/ ? TD/TT: 05/03/2416 ? Manager Heavy Equipment: ? Procedure Note Donotconinterpreter, Image - 05/03/2024 [place] [address] Ultrasound Report Signed Patient: Scarlett LirianoMR#: [id number] : 1970Acct:[id number] Age/Sex: 53 / FADM Date: 05/02/24 Loc: HO.US Attending Dr: Gavino Wynne MD Ordering Physician: Gavino Wynne MD Date of Service: 05/02/24 Procedure(s): US pelvic and transvaginal Accession Number(s): [id number] cc: Saskia Rosas MD; Gavino Wynne MD [...] in OV> 05/03/24916 DD/ 5 TD/TT: 05/03/24915 Manager Heavy Equipment: [facility] External Provider IMG US PROCEDURES Final Result documented in this encounter Visit Diagnoses Not on filedocumented in this encounter Additional Health Concerns Assessment Noted Time PHQ-9 Depression Total Score: 16 024 1:19 PM EDT documented as of this encounter Care Teams Senior Architect/Design Manager Relationship Specialty Start Date End Date WylieCristian Cook MD [address] [place] [address] PCP - General Internal Medicine 03/17/19 Ivy Payne Cardiology Clinical ConsultantCompensation Manager 11/26/23 documented as of this encounter
--- OUTSIDE RECORDS SUMMARY | 2024-05-11 15:52 | XMS_ITS | Clinical Summary ---
Author Organization [facility] Address [address] [place] [address] Care Team Providers Care Investigations Chief Name Role Phone Dirk Mcdowell RD Primary Care Provider [phone] Source Comments PLEASE NOTE, if this patient [...] /3 mL (0.083 %) nebulizer solution Per media specialist 0 5 Active FLOVENT HFA 220 mcg/actuation inhaler Per media specialist 3 5 Active fluticasone (FLONASE) 50 mcg/actuation nasal spray Per media specialist 3 5 Active hydrOXYzine (ATARAX) 25 mg tablet Per media specialist 0 5 Active montelukast (SINGULAIR) 10 mg tablet Per media specialist 3 5 Active terbinafine HCl (LAMISIL) 250 mg tablet Per media specialist 1 5 Active ketoconazole (NIZORAL) 2 % cream Per media specialist 3 5 Active metroNIDAZOLE (METROCREAM) 0.75 % cream Per media specialist 3 5 Active traZODone (DESYREL) 50 mg tablet Per Psych 4 5 Active traMADol (ULTRAM) 50 mg tablet Per [facility] ER 0 5 Active cromolyn (OPTICROM) 4 % ophthalmic solution Per media specialist 3 5 Active baclofen (LIORESAL) 10 [...] Date H/O mammogram 05.11.14 at [facility]. Normal. due Gavino h 201505/12/2014 Left ovarian cyst 07/14/2013 Overview (07/14/2013): S/P US PELVIS 07/04/13 DUE PELVIC PAIN. 2.9 X 3.8 X 3 CM LEFT ADNEXAL CYSTIC LESION, MOST LIKELY HEMORRHAGIC OVARIAN CYST. F/U [facility] Left carpal tunnel syndrome 06/22/2013 Vitamin D deficiency disease 02/03/2012 Overview (02/01/2013): =17. Allergic rhinitis due to allergen 2008 GERD (gastroesophageal reflux disease) 8 Hypothyroidism 05/13/2007 Overview (09/29/2013): + CARLOS EDUARDO'S THYROIDITIS, ENDO F/U with Dr Mcdowell Anxiety and depression 05/13/2007 Overview (02/01/2013): F/U [facility] (DR. NANCE). Insomnia 05/13/2007 Overview (02/01/2013): F/U AT [facility] (DR. NANCE). Mild persistent asthma 05/13/2007 [...] (2 - Td or Tdap) 10/14/2020 011 [id number] (4 - season) 2023 03/22/2021, 07/22/2020, 07/01/2020 [...] TSH CASCADE 2.25 0.40 - 4.00 uIU/ml [facility] Blood specimen (specimen) Blood / Unknown 03/06/2015 11:48 AM EST 03/06/2015 11:[address] [facility] - 03/07/2015 1:30 PM EST [employer] [address] [place] [address] PT ID [id number] ORD# [id number] Sophia Blue MD LAB - BLOOD RICH W Final Result Performing Organization Address [facility]/ZIP Co de Phone Number [facility] [address] [place] [address], [place] [phone] * (ABNORMAL) LIPID PANEL (11/24/2014 11:00 AM EDT) CHOLESTEROL 166 0 - 200 mg/dL [facility] TRIGLYCERIDES 86 0 - 150 mg/dL [facility] HDL CHOLESTEROL 46 >40 mg/dL [facility] LDL CALCULATED 103(H) 0 - 100 mg/dL [facility] TC-HDLC RATIO 3.6 0 - 4.4 mg/dL [facility] Blood specimen (specimen) Blood / Unknown 11/24/2014 11:00 AM EDT 11/24/2014 11:[address] [facility] - 11/24/2014 12:35 PM EDT [employer] [address] [place] [address] [place] [id number] ORD# [id number] Sophia Blue MD LAB - BLOOD RICH W Final Result Performing Organization Address City/[facility]/ZIP Co de Phone Number [facility] [address] [place] [address], [place] [phone] * COMPRE METAB PANEL (11/24/2014 11:00 AM EDT) GLUCOSE 88 70 - 100 mg/dL [facility] Comment:Reference range appl icable to fasting specimens only BUN 22 5 - 25 mg/dL [facility] CREAT 0.67 0.5 - 1.1 mg/dL [facility] GLOMERULAR FILTRATION RATE > 60 [facility] Comment: If patient is -Emirati, multiply result by 1.21 Chronic Kidney Disease: < 60 ml/min/1.73 square meters Kidney Failure: < 15 ml/min/1.73 square meters SODIUM 140 133 - 145 mEq/L [facility] POTASSIUM 4.6 3.5 - 5.5 mEq/L [facility] CHLORIDE 105 96 - 110 mEq/L [facility] CO2 30 21 - 32 mEq/L [facility] ANION GAP 5 3 - 11 [facility] CALCIUM 9.6 8.5 - 10.5 mg/dL [facility] TOTAL PROTEIN 7.5 6.0 - 8.0 G/dL [facility] ALBUMIN 4.5 3.2 - 5.0 G/dL [facility] BILI, TOTAL 0.4 0.0 - 1.4 mg/dL [facility] SGOT 22 10 - 42 U/L [facility] SGPT 18 10 - 60 U/L [facility] ALK PHOS 74 42 - 121 U/L [facility] Blood specimen (specimen) Blood / Unknown 11/24/2014 11:00 AM EDT 11/24/2014 11:[address] [facility] - 11/24/2014 12:35 PM EDT [facility] [employer] [address] [place] [address] PT ID [id number] ORD# [id number] us Sophia Blue MD LAB - BLOOD DRA De Jesus Final Result [address] [address], * HEPATITIS A,B,C PANEL (09/29/2013 3:21 PM EDT) HEPATITIS B SURFACE ANTIBODY NEGATIVE NEGATIVE [facility] HEPATITIS B SURFACE ANTIGEN NEGATIVE NEGATIVE [facility] HEPATITIS C VIRUS ANTIBODY NEGATIVE NEGATIVE [facility] HEPATITIS A ANTIBODY TOTAL NEGATIVE NEGATIVE [facility] HEPATITIS B CORE ANTIBODY NEGATIVE NEGATIVE [facility] Blood specimen (specimen) Blood / Unknown 09/29/2013 3:21 PM EDT 09/29/2013 4:24 PM EDT [facility] - 09/29/2013 9:50 PM EDT [employer] [address] [place] [address] PT ID [id number] ORD# [id number] us Sophia Blue MD LAB - BLOOD RICH W Edited Result - Final [facility] [address] [place] [address], [place] [phone] * HIV-1 & HIV-2 ANTIBODIES (09/29/2013 3:21 PM EDT) HIV 1 AND 2 ANTIBODY SCREEN NEGATIVE NEGATIVE [facility] Blood specimen (specimen) Blood / Unknown 09/29/2013 3:21 PM EDT 09/29/2013 4:24 PM EDT [facility] - 09/30/2013 12:03 PM EDT [employer] [address] [place] [address] PT ID [id number] ORD# [id number] us Sophia Blue MD LAB - BLOOD RICH W Final Result [facility] [address] [place] [address], [place] [phone] from Last 3 Months or Most Recently Relevant to Health Maintenance Insurance [employer] Care Teams Investigations Chief Relationship Specialty Start Date End Date Dirk Mcdowell [address] [place] [address] PCP - General Nutrition 08/02/15
--- OUTSIDE RECORDS SUMMARY | 2024-05-11 15:52 | XMS_ITS | Encounter Summary ---
Author Organization [employer] Address [address] [facility] 7t [place] [address] Care Team Providers Care Pork Cutlet Maker Name Role Phone Cristian Chacon MD Primary Care Prov ider Reason for Visit * Reason Onset Date Comments Medication Question 09/12/2022 Encounter Details Date Type Department Care Team ([facility] st Contact Info) Description 09/12/2022 Telephone C [facility] [address] [place], [place] [phone] Cristian Chacon MD [address] [place] [address] Medication Question Social History Tobacco Use Types [...] EDT TC to pt- Jamee was the rehabilitation technician. Pt stated she had not picked up the Benadryl yet for rash itchiness. She will do so. Also, pt's foreign student adviser teacher has retired. She would like PCP to [...] [facility] [address] [place] [address] Cristian Chacon MD [address] [place] [address] documented as of this encounter Visit Diagnoses Not on filedocumented in this encounter Care Teams Pork Cutlet Maker Relationship Specialty Start Date End Date Cristian Chacon MD [address] [place] [address] PCP - General Internal Medicine 03/17/19 Ivy Payne File KeeperVisually Impaired Teacher 03/03/23 11/25/23 Ivy Payne Asphalt PatcherVisually Impaired Teacher 11/26/23 documented as of this encounter
--- OUTSIDE RECORDS SUMMARY | 2024-05-11 15:52 | XMS_ITS | Encounter Summary ---
Author Organization [employer] Address [address] [facility] 7[address] [place] [address] Care Team Providers Care World Language Teacher Name Role Phone Cristian Chacon MD Primary Care Prov ider Reason for Visit * Reason Onset Date Comments ER Follow-up 03/23/2024 Nurse Triage 03/23/2024 Encounter Details Date Type Department Care Team ([facility] st Contact Info) Description 03/23/2024 Telephone [facility] [address] [place] [address] Cristian Chacon MD [address] [place] [address] ER Follow-up; Nurse Triage Social History Tobacco [...] 11:51 AM [place] [id number] Jose Alberto Pt was seen in [facility] ED 03/19/24 , (report is on [...] is offered an apt this Thursday at [facility] with provider but, requests to only [...] 03/23/2024 9:50 AM EST Tc from pt patient care associate calling to report ED visit on : Date: 03/19 Hospital: [facility] Seen for: Chest pain, Abdominal pain. Symptomatic Yes (Can't walk normally) *if yes message should go to Triage Patient advised will forward to team nurse for follow up [phone] mongolian documented in this encounter Plan of Treatment Upcoming Encounters Date Type Department Care Team (Late st Contact Info) Description 05/17/2024 1:30 PM EDT Office Visit [facility] [address] [place] [address] Cristian Chacon MD [address] [place] [address] documented as of this encounter Visit Diagnoses Not on filedocumented in this encounter Additional Health Concerns Assessment Noted Time PHQ-9 Depression Total Score: 16 024 1:19 PM EDT documented as of this encounter Care Teams World Language Teacher Relationship Specialty Start Date End Date Cristian Chacon MD [address] [place] [address] PCP - General Internal Medicine 03/17/19 Ivy Payne Crop PullerBioinformatics Programmer 11/26/23 documented as of this encounter
--- OUTSIDE RECORDS SUMMARY | 2024-05-11 15:52 | XMS_ITS | Encounter Summary ---
Author Organization [facility] Address [address] [place] [address] Care Team Providers Care Lead Advisor Name Role Phone Cristian Chacon MD Primary Care Prov ider Reason for Visit * Reason Onset Date Comments PAC Form/Letter/Records Request 04/21/2024 Encounter Details Date Type Department Care Team ([facility] st Contact Info) Description 04/21/2024 Telephone [facility] 4th floor Cardiology Medicine [address] [place] [phone] Custodial Operations Manager: Mary Arriaga Telephone Intake, Staff PAC Form/Letter/Records [...] you at if we have any questions? [phone] PAC called out to book this appt with the pt, she is asking for an appt letter with the address, date/time and provider's name The address on file is correct and she can be reached at [phone] for any questions Thank you documented in this encounter Plan of Treatment Upcoming Encounters Date Type Department Care Team (Late st Contact Info) Description 06/01/2024 9:00 AM EDT Office Visit [facility] 4th floor Cardiology Medicine [address] [place] [phone] Custodial Operations Manager: Hemal Fritz MD [address] [place] [address] 08/02/2024 1:30 PM EDT Follow-Up [facility] [address] [place] [address] Custodial Operations Manager: Morales Ramsey MD [address] [place] [address] 08/16/2024 2:00 PM EDT Office Visit [facility] [address] [place] [address] Custodial Operations Manager: Dennis Laguna MD [address] [place] [address] Scheduled Procedures Name Priority Associated Diagnoses Date/Ti me ARTHROSCOPY, SHOULDER, WITH ROTATOR CUFF REPAIR Chronic left shoulder pain ARTHROSCOPY, SHOULDER, DEBRI RONAL, EXTENSIVE Chronic left shoulder pain ARTHROSCOPY, SHOULDER, BICEP S TENODESIS Chronic left shoulder pain documented as of this encounter Visit Diagnoses Not on filedocumented in this encounter Care Teams Lead Advisor Relationship Specialty Start Date End Date Cristian Chacon MD [address] [place] [address] PCP - General 06/04/22 documented as of this encounter
--- OUTSIDE RECORDS SUMMARY | 2024-05-11 15:52 | XMS_ITS | Encounter Summary ---
Author Organization [employer] Address [address] [place] [address] Care Team Providers Care Change Management Administrator Name Role Phone Cristian Chacon MD [...] Description 05/17/2024 1:30 PM EDT Office Visit [facility] [address] [place], [place] [phone] Cristian Chacon MD [address] [place] [address] documented as of this encounter Procedures Procedure Name Priority Date/Time Associated Diagnosis Comments GLUCOSE, WHOLE BLOOD Routine 05/03/2024 5:15 PM [...] EST documented in this encounter Results * Glucose, Whole Blood (05/03/2024 5:15 PM EST) Pathologist [facility] Glucose, Whole Blood 76 60 - 115 mg/dL [facility] Comment:METER #: [id number] 05/03/2024 5:15 PM EST 05/03/2024 5:51 PM EST us Generic External Data Provider LAB BLOOD ORDERAB LES Final Result Performing Organization Address City/[facility]/ZIP Co de Phone Number [facility] [address] [place] [phone] * High Sensitivity Troponin I (05/03/2024 5:08 PM EST) [facility] TROPONIN I HIGH SENSITIVITY 7.4 <3.5 - 17.0 ng/L [facility] Comment:The [facility] high sens itivity Troponin-I results should beused in conjunction with other diagnostic information suchas ECG, clinical observations and information, and patientsymptoms to aid in the diagnosis of [place]. 05/03/2024 5:08 PM EST 05/03/2024 5:12 PM EST us Generic External Data Provider LAB BLOOD ORDERAB LES Final Result Performing Organization Address City/[facility]/ZIP Co de Phone Number [facility] [address] [place] [phone] * Prothrombin Time-INR (05/03/2024 5:08 PM EST) Prothrombin Time 11.7 10.9 - 12.4 SEC [facility] INTERNATIONAL NORM RATIO 1.0 0.9 - 1.1 [facility] Comment:INTERNATIONAL NORMAL IZED RATIO (INR) REFERENCE [...] 5:08 PM EST 05/03/2024 5:12 PM EST us Generic External Data Provider LAB BLOOD ORDERAB LES Final Result [facility] [address] [place] [phone] * SARS-CoV-2 RNA, Influenza A/B, and RSV RNA, Ql NAAT (05/03/2024 11:04 AM EST) Pathologist [facility] Influenza A PCR NEGATIVE Negative [facility] Influenza B PCR NEGATIVE Negative [facility] Resp Syncy Virus RNA Qual PCR NEGATIVE Negative [facility] SARS COV2 PCR NEGATIVE Negative [facility] Comment:All test results mus t [...] use by authorized laboratories.Testing performed on the Paling[facility] GeneXpert utilizingreal-time RT-PCR.All SARS CoV2 and positive influenza A/B results arereported to [facility]. 05/03/2024 11:0 4 AM EST 05/03/2024 11:12 AM EST Generic External Data Provider LAB MICROBIOLOGY - GENERAL ORDERABLES Final Result Performing Organization Address [facility] Phone Number [facility] [address] [place] [phone] * High Sensitivity Troponin I (05/03/2024 11:04 AM EST) [facility] TROPONIN I HIGH SENSITIVITY <2.7 <3.5 - 17.0 ng/L [facility] Comment:The [facility] high sens itivity Troponin-I results should beused in conjunction with other diagnostic information suchas ECG, clinical observations and information, and patientsymptoms to aid in the diagnosis of [place]. 05/03/2024 11:0 4 AM EST 05/03/2024 11:12 AM EST Generic External Data Provider LAB BLOOD ORDERAB LES Final Result Performing Organization Address [facility] Phone Number [facility] [address] [place] [phone] * B Type Natriuretic Peptide (BNP) (05/03/2024 11:04 AM EST) [facility] B Type Natriuretic Peptide 44 <100 pg/mL [facility] Comment:For those patients w ho are being treated with Natrecor(nesiritide, recombinant BNP), BNP testing should beperformed at least two hours post treatment in order toensure that only endogenous levels of BNP are detected. 05/03/2024 11:0 4 AM EST 05/03/2024 11:12 AM EST Generic External Data Provider LAB BLOOD ORDERAB LES Final Result Performing Organization Address [facility] de Phone Number [facility] [address] [place] [phone] * Lipase (05/03/2024 11:04 AM EST) [facility] Lipase 37 8 - 78 U/L [facility] 05/03/2024 11:0 4 AM EST 05/03/2024 11:12 AM EST Generic External Data Provider LAB BLOOD ORDERAB LES Final Result Performing Organization Address [facility] Phone Number [facility] [address] [place] [phone] * (ABNORMAL) C-reactive Protein (05/03/2024 11:04 AM EST) [facility] C Reactive Protein 3.79(H) < or = 0.50 mg/dL [facility] 05/03/2024 11:0 4 AM EST 05/03/2024 11:12 AM EST Generic External Data Provider LAB BLOOD ORDERAB LES Final Result Performing Organization Address [facility] Phone Number [facility] [address] [place] [phone] * Creatine Kinase, Total (05/03/2024 11:04 AM EST) Pathologist [facility] Creatine Kinase Total 35 26 - 140 U/L [facility] 05/03/2024 11:0 4 AM EST 05/03/2024 11:12 AM EST Generic External Data Provider LAB BLOOD ORDERAB LES Final Result Performing Organization Address [facility] Phone Number [facility] [address] [place] [phone] * Magnesium (05/03/2024 11:04 AM EST) Magnesium 2.1 1.6 - 2.6 mg/dL [facility] 05/03/2024 11:0 4 AM EST 05/03/2024 11:12 AM EST us Generic External Data Provider LAB BLOOD ORDERAB LES Final Result Performing Organization Address City/[facility]/ZIP Co de Phone Number [facility] [address] [place] [phone] * (ABNORMAL) Basic Metabolic Panel (05/03/2024 11:04 AM EST) Sodium 140 135 - 145 mmol/L [facility] Potassium 3.5 3.3 - 5.1 mmol/L [facility] Chloride 108 96 - 108 mmol/L [facility] Carbon Dioxide 23 22 - 29 mmol/L [facility] Anion Gap 13 12 - 20 [facility] Urea Nitrogen (BUN) 18(H) 9 - 16 mg/dL [facility] Creatinine, Serum 0.70 0.5 - 1.4 mg/dL [facility] Creatinine Clr Calc Pharmacy 91.1 [facility] Comment:Provided height and weight: 152.4 cm,90.718 kg.eGFR (calculated from the MDRD study equation) and eCrCl(calculated from the Cockcroft-Gault equation) are based ondifferent parameters and may not yield comparable results.If eCrCl result is absurd, please check patient'sheight/weight. Estimated Glomerular Filt Rate >60 [facility] Comment:Chronic Kidney Disea se: Estimated GFR < 60 mL/min/1.93n1Cnjrva Kidney Disease: Estimated GFR < 15 mL/min/1.73m2 Glucose 179(H) 60 - 115 mg/dL [facility] Calcium 8.6 8.4 - 10.2 mg/dL [facility] 05/03/2024 11:0 4 AM EST 05/03/2024 11:12 AM EST us Generic External Data Provider LAB BLOOD ORDERAB LES Final Result Performing Organization Address City/[facility]/ZIP Co de Phone Number [facility] [address] [place] [phone] * Hepatic Function Panel (05/03/2024 11:04 AM EST) Bilirubin, Total 0.5 0.0 - 1.0 mg/dL [facility] Bilirubin, Direct 0.2 0.0 - 0.5 mg/dL [facility] Aspartate Amino Transferase 14 5 - 31 U/L [facility] Alanine Aminotransferase 13 0 - 31 U/L [facility] Total Protein 7.0 6.5 - 8.0 g/dL [facility] Albumin Level 3.5 3.5 - 5.0 g/dL [facility] Alkaline Phosphatase 54 39 - 117 U/L [facility] 05/03/2024 11:0 4 AM EST 05/03/2024 11:12 AM EST us Generic External Data Provider LAB BLOOD ORDERAB LES Final Result Performing Organization Address City/State/[facility] Co de Phone Number [facility] [address] [place] [phone] * (ABNORMAL) CBC auto differential (05/03/2024 11:04 AM EST) Pathologist [facility] White Blood Count 8.1 4.8 - 10.8 X10*3/uL [facility] Red Blood Count 4.07(L) 4.20 - 5.50 X10*6/uL [facility] Hemoglobin 11.9(L) 12.0 - 16.0 g/dl [facility] Hematocrit 35.8(L) 37.0 - 47.0 % [facility] Mean Corpuscular Volume 88.0 80.0 - 98.0 fL [facility] Mean Corpuscular Hemoglobin 29.2 27.0 - 33.0 pg [facility] Mean Corpuscular HGB Conc 33.2 31.0 - 35.0 g/dl [facility] Red Cell Distribution Width 14.4 11.0 - 16.0 % [facility] Platelet Count 339 160 - 400 X10*3/uL [facility] Mean Platelet Volume 9.3(L) 9.4 - 12.3 fL [facility] Neutrophils Percent Auto 83.7(H) 45 - 73 % [facility] Imm Gran Pct Auto 0.6(H) 0.0 - 0.4 % [facility] Lymphocytes Percent Auto 11.5(L) 20 - 40 % [facility] Monocytes Percent Auto 3.6 2 - 11 % [facility] Eosinophils Percent Auto 0.5 0 - 4 % [facility] Basophils Percent Auto 0.1 0 - 2 % [facility] NRBC Pct Auto 0.0 0.0 - 0.2 /100WBC [facility] Neutrophils Absolute Auto 6.7 2.0 - 8.3 x10*3/uL [facility] Imm Gran Abs Auto 0.05(H) 0.00 - 0.03 X10*3/uL [facility] Lymphocytes Absolute Auto 0.9(L) 1.2 - 4.9 X10*3/uL [facility] Monocytes Absolute Auto 0.3 0.1 - 1.2 X10*3/uL [facility] Eosinophils Absolute Auto 0.0 0.0 - 0.4 X10*3/uL [facility] Basophils Absolute Auto 0.0 0.0 - 0.2 X10*3/uL [facility] NRBC Abs Auto 0.000 0.0 - 0.012 X10*3/uL [facility] 05/03/2024 11:0 4 AM EST 05/03/2024 11:12 AM EST us Generic External Data Provider LAB BLOOD ORDERAB LES Final Result [facility] [address] [place] [phone] * XR Chest 1 View (05/03/2024 10:40 AM EST) Anatomical Region Laterality Modality Chest Radiographic Amanda ging 05/03/2024 10:4 0 AM EST Narrative 05/03/2024 11:39 AM EST ? [facility] ?[address] ?[place] [address] ?XRay Report ? Signed ? Patient: Liriano,Scarlett ?MR#: [id number] ?? [id number] ? : 1970 ?Acct:[id number] ? Age/Sex: 53 / F ?ADM Date: 05/03/24 ? Loc: HO.ED ? Attending Dr: ? Ordering Physician: Dana Montenegro DO ?? Date of Service: 05/03/24 ?? Procedure(s): XR chest 1V ?? Accession Number(s): [id number] ? cc: Cristian Chacon MD; Dana Montenegro [...] DD/ 1040 ? TD/TT: 05/03/24 1100 ? Scalp Treatment Specialist: MSM ? Procedure Note Makenna Vazquez - 05/03/[address] [address] XRay Report Signed Patient: Scarlett Liriano#: [id number] : 1970Acct:[id number] Age/Sex: 53 / FADM Date: 05/03/24 Loc: HO.ED Attending Dr: Ordering Physician: Dana Montenegro DO Date of Service: 05/03/24 Procedure(s): XR chest 1V Accession Number(s): [id number] cc: Cristian Chacon MD; Dana Montenegro DO [...] 05/03/24 1136 DD/ 1040 TD/TT: 05/03/24 1100 Scalp Treatment Specialist: [facility] External Provider IMG XR PROCEDURES Final Result documented in this encounter Visit Diagnoses Not on filedocumented in this encounter Additional Health Concerns Assessment Noted Time PHQ-9 Depression Total Score: 16 024 1:19 PM EDT documented as of this encounter Care Teams Change Management Administrator Relationship Specialty Start Date End Date Cristian Chacon MD [address] [place] [address] PCP - General Internal Medicine 03/17/19 Ivy Payne Ranch ManagerGallery Assistant 11/26/23 documented as of this encounter
--- OUTSIDE RECORDS SUMMARY | 2024-05-11 15:52 | XMS_ITS | Encounter Summary ---
Author Organization [employer] Address [address] 7[address] [place] [address] Care Team Providers Care Construction Plant Operator Name Role Phone Cristian Chacon MD Primary Care Prov ider Encounter Details Date Type Department Care Team (Late st Contact Info) Description 02/19/2024 Orders Only [facility] MED & PEDS [address] [place] [address] Provider, MD Roderick Social History Tobacco Use [...] Description 05/17/2024 1:30 PM EDT Office Visit [facility] MED & PEDS [address] [place] [address] Cristian Chacon MD [address] [place] [address] documented as of this encounter Procedures Procedure [...] documented as of this encounter Care Teams Construction Plant Operator Relationship Specialty Start Date End Date Cristian Chacon MD [address] [place] [address] PCP - General Internal Medicine 03/17/19 Ivy Payne Retail Inventory Control ClerkFinal Inspector Movement Assembly 11/26/23 documented as of this encounter
--- OUTSIDE RECORDS SUMMARY | 2024-05-11 15:52 | XMS_ITS | Encounter Summary ---
Author Organization [employer] Address [address] [facility] 7t [place] [address] Care Team Providers Care Farm Advisor Name Role Phone Cristian Chacon MD Primary Care Prov ider Reason for Visit * Reason Comments Care Coordination Outreach Encounter Details Date Type Department Care Team (Latest Contact Info) Description 05/03/2024 Patient Outreach [facility] CHC MED & PEDS [address] [place], [place] [phone] Cristian Chacon MD [address] [place] [address] Care Coordination (Outreach) Social History Tobacco Use [...] notify CM. CHW provided contact information of [phone] for any questions or concerns. documented in this encounter Plan of Treatment Upcoming Encounters Date Type Department Care Team ([facility] Contact Info) Description 05/17/2024 1:30 PM EDT Office Visit [facility] MED & PEDS [address] [place] [address] Cristian Chacon MD [address] [place] [address] documented as of this encounter Visit Diagnoses Not on filedocumented in this encounter Additional Health Concerns Assessment Noted Time PHQ-9 Depression Total Score: 16 024 1:19 PM EDT documented as of this encounter Care Teams Farm Advisor Relationship Specialty Start Date End Date Cristian Chacon MD 505 [place] [address] PCP - General Internal Medicine 03/17/19 Ivy Payne Tabulating Machine MechanicProfessor Of Forestry 11/26/23 documented as of this encounter
--- OUTSIDE RECORDS SUMMARY | 2024-05-11 15:52 | XMS_ITS | Encounter Summary ---
Author Organization [employer] Address [address] [facility] 7t [place] [address] Care Team Providers Care Hander In Name Role Phone Cristian Chacon MD Primary Care Prov ider Reason for Visit * Reason Comments Med Refill Encounter Details Date Type Department Care Team ([facility] Contact Info) Description 02/27/2024 Refill [facility] CHC MED & PEDS [address] [place], [place] [phone] Cristian Chacon MD [address] [place] [address] Social History Tobacco Use Types Packs/Day Years [...] Description 05/17/2024 1:30 PM EDT Office Visit [facility] CHC MED & PEDS [address] [place] [address] Cristian Chacon MD [address] [place] [address] documented as of this encounter Visit Diagnoses Not on filedocumented in this encounter Additional Health Concerns Assessment Noted Time PHQ-9 Depression Total Score: 16 024 1:19 PM EDT documented as of this encounter Care Teams Hander In Relationship Specialty Start Date End Date Cristian Chacon MD [address] [place] [address] PCP - General Internal Medicine 03/17/19 Ivy Payne Dryerman/WomanPsychiatry Teacher 11/26/23 documented as of this encounter
--- OUTSIDE RECORDS SUMMARY | 2024-05-11 15:52 | XMS_ITS | Clinical Summary ---
Author Organization [facility] Address [address] [place] [address] Care Team Providers Care Food Service Employee Name Role Phone Unavailable Primary Care Provider [...]
--- OUTSIDE RECORDS SUMMARY | 2024-05-11 15:52 | XMS_ITS | Encounter Summary ---
Author Organization [facility] Address [address] [place] [address] Care Team Providers Care Building Admin Name Role Phone Cristian Chacon MD Primary Care Prov ider Reason for Visit * Reason Onset Date Comments Rosacea 08/09/2021 Pt is calling to schedule a new pt apt for rosacea. Please call pt at [phone] Encounter Details Date Type Department Care Team ([facility] Contact Info) Description 08/09/2021 Telephone [facility] Central Scheduling Department [address] [place] [address] Telephone Intake, Staff Cash (Pt is calling to schedule a new pt apt for rosacea. Please call pt at [phone]) Social History Tobacco Use Types Packs/Day Years [...] 10:51 AM EDT Documentation purpose. lvm at [id number]. Pt is calling to schedule a new pt apt for rosacea. Please call pt at [phone] documented in this encounter Plan of Treatment Upcoming Encounters Date Type Department Care Team ([facility] Contact Info) Description 06/01/2024 9:00 AM EDT Office Visit [facility] 4th floor Cardiology Medicine [address] [place] [address] Funds Transfer Clerk: Hemal Fritz MD [address] [place] [address] 08/02/2024 1:30 PM EDT Follow-Up [facility] [address] [place] [address] Funds Transfer Clerk: Morales Ramsey MD [address] [place] [address] 08/16/2024 2:00 PM EDT Office Visit [facility] All[facility] [address] [place] [address] Funds Transfer Clerk: Dennis Laguna MD [address] [place] [address] Scheduled Procedures Name Priority Associated Diagnoses Date/Ti me ARTHROSCOPY, SHOULDER, WITH ROTATOR CUFF REPAIR Chronic left shoulder pain ARTHROSCOPY, SHOULDER, DEBRI RONAL, EXTENSIVE Chronic left shoulder pain ARTHROSCOPY, SHOULDER, BICEP S TENODESIS Chronic left shoulder pain documented as of this encounter Visit Diagnoses Not on filedocumented in this encounter Care Teams Building Admin Relationship Specialty Start Date End Date Cristian Chacon MD [address] [place] [address] PCP - General 06/04/22 documented as of this encounter
--- OUTSIDE RECORDS SUMMARY | 2024-05-11 15:52 | XMS_ITS | Encounter Summary ---
Author Organization [facility] Address [address] [place] [address] Care Team Providers Care Child And Family Services Worker Name Role Phone Cristian Chacon MD Primary Care Prov ider Reason for Referral * Consultation (Routine) - Pending Review Specialty Diagnoses / Procedures Referred By Lurdes sarmiento Referred To Contact Pulmonary Disease / Pulmonary Diagnoses Moderate persistent asthma, unspecified whether complicated Alonzo Persaud MD [address] [place] [address] Phone: tel: fax: [facility] All[facility] Center [address] [place] [address] Phone: tel: fax: Referral ID Status Reason Start Date Expiration Date Visits Requested Visits Authorized [id number] Pending Review Specialty Services Required 04/20/2024 10/20/2025 6 6 * Consultation (Routine) - Pending Review Specialty Diagnoses / Procedures Referred By Lurdes sarmiento Referred To Contact Cardiology Diagnoses Chest pain, unspecified type Alonzo Persaud MD [address] [place] [address] Phone: tel: fax: [facility] Cardiology [address] [place] [address] Phone: tel: fax: Referral ID Status Reason Start Date Expiration Date Visits Requested Visits Authorized [id number] Pending Review Specialty Services Required 04/20/2024 10/20/2025 6 6 Reason for Visit * Reason Comments Follow-up * Consultation (Routine) - Authorized Specialty Diagnoses / Procedures Referred By Lurdes sarmiento Referred To Contact Rheumatology Diagnoses Arthritis Alonzo Persaud MD [address] [place] [address] Phone: tel: fax: Referral ID Status Reason Start Date Expiration Date V isits Requested Visits Authorized [id number] Authorized 11/03/2023 05/04/2025 6 6 Encounter Details Date Type Department Care Team (Late st Contact Info) Description 04/20/2024 9:00 AM EST Follow-Up [facility] Rheumatology Clinic [address] [place] [address] Block Cuber: Alonzo Baez MD [address] [place] [address] FELI positive (Primary Dx); Arthralgia, unspecified joint; [...] -diagnosed with fibromyalgia. -was sent to a director of assisted living Dr. Mcmahan at [facility]. They said that there was not much that they could do for fibromyalgia. She went back to [facility]. The doctor had labs done and hergastroenterologist in [place] also did lab work. Apparently, one of the tests came back positive for lupus. She then switched director of assisted living to Dr. Smith. She had had some [...] in outside lab but when repeated at [facility] it was negative. Previously, the patient [...] did not recall this. -was referred to [facility] ultrasound and she had synovial thickening of [...] cuff in need of surgery -Osteoarthritis and glpi-rh-haxb to her knee on x-rays -her workup [...] normal complements Interval History: We are using venipuncturist ollie #[id number]. Returns in followup. She took the antibiotics. [...] Clarity, Urine 04/20/2024 Clear Clear Final Specific [place], Urine 04/20/2024 1.024 1.005 - 1.030 Final [...] update lab work today. She wants a manager contracting here at [facility] as well as a pulmonary person. Will [...] Description 06/01/2024 9:00 AM EDT Office Visit [facility] Building 4th floor Cardiology Medicine [address] [place] [phone] Block Cuber: Hemal Fritz MD [address] [place] [address] 08/02/2024 1:30 PM EDT Follow-Up [facility] [address] [place] [address] Block Cuber: Morales Ramsey MD [address] [place] [address] 08/16/2024 2:00 PM EDT Office Visit [facility] Lung [facility] Allergy Center [address] [place] [address] Block Cuber: Juan Ramon Vallejo, Dennis Whitlock MD [address] [place] [address] Scheduled Procedures Name Priority Associated Diagnoses Date/Ti [...] of this encounter Results * Due to [place] state law, this organization might not be sharing negative HIV tests. * Procalcitonin (04/20/2024 9:23 AM EST) Procalcitonin <0.20 <0.20 ng/mL 04/22/2024 2:53 PM EST [id number] Comment: Verified by repeat analysis. Procalcitonin levels above 2.00 ng/mL on the first day of ICU admission represent a high risk for progression to severe sepsis and/or septic shock. Procalcitonin Comment See Comments 04/22/2024 2:53 PM EST [id number] Comment: Interpretation Guidelines Diagnosis of systemic [...] BLOOD ORDERABLES Final Result [facility]AR[facility] [address] [facility] 3rd Floor, [place] [address], [place] [phone] [facility] [place] [address] [place] [address], [place] [phone] * Microalbumin, Random Urine with Creatinine (04/20/2024 9:23 AM EST) Microalbumin, Urine <2.0 mg/dL 04/20/2024 12:17 PM EST [facility] Creatinine, Urine 186 15 - 278 mg/dL 04/20/2024 12:17 PM EST [facility] Microalb/Creat Ratio, Random Urine 04/20/2024 12:17 PM EST [facility] Comment: < 1.0 mcg/mgCr Microalbumin Reference Range: Normal ? <30 mcg/mg Creatinine Microalbuminuria ? 30-300 mcg/mg Creatinine Clinical Albuminuria >300 mcg/mg Creatinine Reference: ADA Guideline. Diabetes Care. 2004;27 (suppl 1) Urine Voided urine specimen / Unknown Non-Blood Collection / Unknown 04/20/2024 9:23 AM EST 04/20/2024 9:39 AM EST Alonzo Persaud MD LAB URINE ORDERABLES Final Result Performing Organization Address City/[facility]/ZIP Co de Phone Number [facility] [address] [place] [address], [facility] [address] [place] [address], * (ABNORMAL) DNA Antibody (ds) Crithidia IFA w/Reflex (04/20/2024 9:23 AM EST) DNA Ab(ds) Crithidia, IFA Positive(A ) Negative 04/23/2024 12:26 PM EST [facility]) Blood Structure of peripheral vein / Unknown Venipuncture / Unknown 04/20/2024 9:23 AM EST 04/20/2024 9:38 AM EST Narrative [facility] - 04/23/2024 12:26 PM EST [facility] Received Date:[id number] us Alonzo Persaud MD LAB BLOOD ORDERABLES Final Result Performing Organization Address City/State/[facility] Co de Phone Number [facility] [address] [place] [address] 3rd Floor, [place] [address], [facility] ([place]) [address] [place] [address], [place] * (ABNORMAL) DNA Antibody, Double-Stranded (04/20/2024 9:23 AM EST) DNA (Ds) Antibody 7(H) IU/mL 025 9:50 PM EST [facility] Comment: ? IU/mL ? Interpretation ? < or = 4 ?Negative ? 5-9 ? Indeterminate ? > or = 10 ?? Positive Blood Structure of peripheral vein / Unknown Venipuncture / Unknown 04/20/2024 9:23 AM EST 04/20/2024 9:38 AM EST Narrative [facility] - 04/21/2024 9:50 PM EST [facility] Received Date:[id number] us Alonzo Persaud MD LAB BLOOD ORDERABLES Final Result [facility] [address] [facility] 3rd Floor, [place] [address], [place] [phone] [facility] [address]rd Floor, [place] [address], [place] [phone] * (ABNORMAL) Comprehensive Metabolic Panel (04/20/2024 9:23 AM EST) NA 139 135 - 145 mmol/L 04/20/2024 10:34 AM EST [facility] K 3.8 3.5 - 5.3 mmol/L 04/20/2024 10:34 AM [facility] Cl 105 98 - 107 mmol/L 04/20/2024 10:34 AM [facility] CO2 24 22 - 32 mmol/L 04/20/2024 10:34 AM [facility] Anion Gap 10 5 - 15 04/20/2024 10:34 AM [facility] Glucose 177(H) 65 - 99 mg/dL 04/20/2024 10:34 AM [facility] Creatinine 0.73 0.50 - 1.20 mg/dL 04/20/2024 10:34 AM [facility] Calcium 8.4(L) 8.6 - 10.5 mg/dL 04/20/2024 10:34 AM [facility] Total Protein 6.9 6.0 - 8.0 g/dL 04/20/2024 10:34 AM [facility] Albumin 3.4(L) 3.5 - 5.2 g/dL 04/20/2024 10:34 AM [facility] Bilirubin, Total 0.3 0.2 - 1.2 mg/dL 04/20/2024 10:34 AM EST [facility] Alkaline Phosphatase 50 35 - 129 U/L 04/20/2024 10:34 AM EST [facility] AST 14 10 - 40 U/L 04/20/2024 10:34 AM EST [facility] ALT 11 10 - 40 U/L 04/20/2024 10:34 AM EST [facility] BUN 24(H) 7 - 23 mg/dL 04/20/2024 10:34 AM EST [facility] eGFR >90 >=60 mL/min/1. 73m2 04/20/2024 10:34 AM EST [facility] Comment:The estimated glomer ular [...] - 4.2 g/dL 04/20/2024 10:34 AM EST [facility] A/G Ratio 1.0(L) 1.5 - 3.0 04/20/2024 10:34 AM EST [facility] Blood Structure of peripheral vein / Unknown Venipuncture / Unknown 04/20/2024 9:23 AM EST 04/20/2024 9:38 AM EST us Alonzo Persaud MD LAB BLOOD ORDERABLES Final Result [facility] [address] [place] [address], [place] * (ABNORMAL) CBC Auto Differential (04/20/2024 9:23 AM EST) WBC 12.4(H) 3.8 - 10.8 10*3/uL 04/20/2024 9:47 AM [facility] RBC 4.34 3.80 - 5.10 10*6/uL 04/20/2024 9:47 AM [facility] Hemoglobin 12.3 11.7 - 15.5 g/dL 04/20/2024 9:47 AM [facility] Hematocrit 39.1 35.0 - 45.0 % 04/20/2024 9:47 AM [facility] MCV 90.1 80.0 - 100.0 fL 04/20/2024 9:47 AM [facility] MCH 28.3 27.0 - 33.0 pg 04/20/2024 9:47 AM [facility] MCHC 31.5(L) 32.0 - 36.0 g/dL 04/20/2024 9:47 AM [facility] RDW 13.4 11.0 - 15.0 % 04/20/2024 9:47 AM [facility] Platelets 351 140 - 400 10*3/uL 04/20/2024 9:47 AM [facility] MPV 9.4 7.5 - 12.5 fL 04/20/2024 9:47 AM [facility] Neutrophil % 88.3 % 04/20/2024 9:47 AM [facility] Immature Grans % 1.1(H) 0.0 - 0.9 % 04/20/2024 9:47 AM [facility] Lymphocyte % 6.1 % 04/20/2024 9:47 AM [facility] Monocyte % 4.1 % 04/20/2024 9:47 AM [facility] Eosinophil % 0.2 % 04/20/2024 9:47 AM EST [facility] Basophil % 0.2 % 04/20/2024 9:47 AM EST [facility] Neutrophil # 10.92(H) 1.50 - 7.80 10*3/uL 04/20/2024 9:47 AM EST [facility] Immature Grans # 0.14(H) <=0.03 10*3/uL 04/20/2024 9:47 AM EST [facility] Lymphocyte # 0.80(L) 0.85 - 3.90 10*3/uL 04/20/2024 9:47 AM EST [facility] Monocyte # 0.50 0.20 - 0.95 10*3/uL 04/20/2024 9:47 AM EST [facility] Eosinophil # <0.03 0.02 - 0.50 10*3/uL 04/20/2024 9:47 AM EST [facility] Basophil # <0.03 0.00 - 0.20 10*3/uL 04/20/2024 9:47 AM EST [facility] nRBC % 0.0 /100 WBCs 04/20/2024 9:47 AM EST [facility] nRBC # <0.01 <0.01 10*3/uL 04/20/2024 9:47 AM EST [facility] Blood Structure of peripheral vein / Unknown Venipuncture / Unknown 04/20/2024 9:23 AM EST 04/20/2024 9:38 AM EST us Alonzo Persaud MD LAB BLOOD ORDERABLES Final Result [facility] [address] [place] [address], [place] * (ABNORMAL) Creatine Kinase (04/20/2024 9:23 AM EST) CK 35(L) 38 - 206 U/L 04/20/2024 10:34 AM EST [facility] Blood Structure of peripheral vein / Unknown Venipuncture / Unknown 04/20/2024 9:23 AM EST 04/20/2024 9:38 AM EST us Alonzo Persaud MD LAB BLOOD ORDERABLES Final Result [facility] [address] [place] [address], * Complement C4 (04/20/2024 9:23 AM EST) Complement Component C4C 21 15 - 57 mg/dL 04/21/2024 4:22 AM EST [facility] Blood Structure of peripheral vein / Unknown Venipuncture / Unknown 04/20/2024 9:23 AM EST 04/20/2024 9:38 AM EST Narrative [facility] - 04/21/2024 4:22 AM EST [facility] Received Date: Alonzo Persaud MD LAB BLOOD ORDERABLES Final Result Performing Organization Address City/[facility] Co de Phone Number [facility] [address] [facility] 3rd Floor, [place] [address], [place] [phone] [employer] [address], [place] [address], [place] [phone] * Complement C3 (04/20/2024 9:23 AM EST) Complement Component C3C 101 83 - 193 mg/dL 04/21/2024 4:22 AM EST [facility] Blood Structure of peripheral vein / Unknown Venipuncture / Unknown 04/20/2024 9:23 AM EST 04/20/2024 9:38 AM EST Narrative [facility] - 04/21/2024 4:22 AM EST [facility] Received Date:[id number] Alonzo Persaud MD LAB BLOOD ORDERABLES Final Result Performing Organization Address City/[facility]/ZIP Co de Phone Number [facility] [address] [facility] 3rd Floor, [place] [address], [place] [phone] [facility] [address] Floor, [place] [address], [place] [phone] * Sedimentation Rate (04/20/2024 9:23 AM EST) Sed Rate 23 <30 mm/Hr mm/Hr 04/20/2024 10:04 AM EST [facility] Blood Structure of peripheral vein / Unknown Venipuncture / Unknown 04/20/2024 9:23 AM EST 04/20/2024 9:38 AM EST Alonzo Persaud MD LAB BLOOD ORDERABLES Final Result Performing Organization Address City/[facility] Co de Phone Number [facility] [address] [place] [address], * (ABNORMAL) C-Reactive Protein (04/20/2024 9:23 AM EST) C Reactive Protein 10.5(H) <=9.9 mg/L 04/20/2024 10:34 AM EST [facility] Blood Structure of peripheral vein / Unknown Venipuncture / Unknown 04/20/2024 9:23 AM EST 04/20/2024 9:38 AM EST Alonzo Persaud MD LAB BLOOD ORDERABLES Final Result Performing Organization Address [facility] Co de Phone Number [facility] [address] [place] [address], documented in this encounter Visit Diagnoses Diagnosis FELI positive- Primary Arthralgia, unspecified joint Chest pain, unspecified type Moderate persistent asthma, unspecified whether complicated documented in this encounter Care Teams Child And Family Services Worker Relationship Specialty Start Date End Date Cristian Chacon MD [address] [place] [address] PCP - General 06/04/22 documented as of this encounter
--- OUTSIDE RECORDS SUMMARY | 2024-05-11 15:53 | XMS_ITS | Encounter Summary ---
Author Organization [employer] Address [address] [facility] [address] 7[address] [place] [address] Care Team Providers Care Supervisor Sign Shop Name Role Phone Cristian Chacon MD Primary Care Prov ider Encounter Details Date Type Department Care Team (Late st Contact Info) Description 03/22/2024 Orders Only [facility] MED & PEDS [address] [place], [place] [phone] Provider, MD Roderick Social History Tobacco Use [...] [facility] [address] [place] [address] Cristian Chacon MD [address] [place] [address] documented as of this encounter Procedures Procedure [...] as of this encounter Care Teams Supervisor Sign Shop Relationship Specialty Start Date End Date Cristian Chacon MD [address] [place] [address] PCP - General Internal Medicine 03/17/19 Ivy Payne [facility] Circulation Department ChiefFinancial Services Intern 11/26/23 documented as of this encounter
== END 2024-05-11 14:23 | disposition home or self-care (01) ==
LOC: HO.HCS 13:24
PROVIDERS: PCP Family Medicine
DX: R07.9 Chest pain, unspecified (principal); R00.2 Palpitations; I10 Essential (primary) hypertension
CPT/HCPCS: 99204

== ENCOUNTER → 2024-05-11 13:24 | Outpatient (BNVA) | payer MEDICAID, SELFPAY | PROVIDERS: PCP Family Medicine | DX: R07.9 Chest pain, unspecified (principal); R00.2 Palpitations; I10 Essential (primary) hypertension | CPT/HCPCS: 99212 ==

== ENCOUNTER 2024-05-16 10:15 | Outpatient (REF) | payer MEDICAID, SELFPAY | END 2024-05-16 10:16 | disposition home or self-care (01) | LOC: HO.LAB 10:15 | PROVIDERS: PCP Family Medicine | DX: Z13.89 Encounter for screening for other disorder (principal) | CPT/HCPCS: 36415; 80048 ==

== ENCOUNTER 2024-05-18 09:48 | Outpatient (REF) | payer MEDICAID, SELFPAY ==
[2024-05-18 10:58] LABS: Anion Gap 12 (12-20); Blood Urea Nitrogen 20 mg/dL (9-16); Carbon Dioxide 24 mmol/L (22-29); Chloride 109 mmol/L (96-108); Estimated Glomerular Filt Rate > 60; Glucose Random 110 mg/dL (60-115); Potassium 4.5 mmol/L (3.3-5.1); Sodium 140 mmol/L (135-145)
== END 2024-05-18 09:49 | disposition home or self-care (01) ==
LOC: HO.LAB 09:48
PROVIDERS: PCP Internal Medicine
DX: R07.9 Chest pain, unspecified (principal)
CPT/HCPCS: 36415; 80048

== ENCOUNTER → 2024-05-25 10:19 | Outpatient (REF) | payer MEDICAID, SELFPAY ==
--- NOTE | 2024-05-25 10:25 | CA_ITS ---
Transthoracic Echocardiogram Patient (Last, First, Middle): Scarlett Liriano, Gender: Female Date of : 1970 Age: 53 Procedure Date: 05/25/2024 Procedure Type: Transthoracic Echocardiogram Location: OP Height: 157. cm Weight: 90.72 kg BSA: 1.91 m2 Heart Rate: 70 bpm BP: 100 / 70 mmHg Research Physicist: DEIDRA Lara MD: Randy Ames CARD GAME OPERATOR Merchandise Distributor: Mukesh Arango MD Symptoms: R07.9 - Chest pain, unspecified Study Quality: Fair ECG Rhythm: Sinus Conclusions: - Essentially normal study Findings Left Ventricle Normal left ventricular size, thickness, and systolic function. The visually estimated ejection fraction is between 60-65%. Regional wall motion abnormalities can not be excluded due to suboptimal endocardial definition. Spectral Doppler is indicative of a normal filling pattern. Right Ventricle Normal right ventricular cavity size and systolic function. Atria The left atrium is normal in size. There is no evidence of interatrial shunt. The right atrium is normal in size. Aortic Valve The aortic valve structure and function is likely normal. There is no aortic valve stenosis. There is no aortic valve regurgitation. Mitral Valve Normal mitral valve structure and function. There is trace mitral valve regurgitation. There is no mitral valve stenosis. Pulmonic Valve The pulmonic valve was not well visualized. Tricuspid Valve Likely normal tricuspid valve structure and function. There is trace tricuspid valve regurgitation. The right ventricular systolic pressure is normal. The right ventricular systolic pressure is 19 mmHg. Normal right atrial pressure. There is no evidence of pulmonary hypertension. Great Vessels The pulmonary artery was not well visualized. There is no dilatation of the ascending aorta measuring 2.50 cm. Venous The inferior vena cava is normal in size and collapses greater than 50% with inspiration. Pericardium/Pleural There is no evidence of pericardial effusion. Prior Study Comparison No significant change compared to prior study dated: 11/16/2023. Measurements 2D Linear Measurements IVSd: 0.76 0.6-0.9/0.6-1.0 cm LVIDd: 4.46 3.9-5.3/4.2-5.9 cm LVIDd Index: 2.34 2.4-3.2/2.2-3.1 cm/m2 LVIDs: 2.89 2.0-3.6 cm LVPWd: 0.99 0.7-1.1 cm LA Diam: 3.00 2.7-3.8/3.0-4.0 cm LAIDs Index: 1.57 1.5-2.3 cm/m2 LV Mass: 155.60 67-162/88-224 g LV Mass Index: 81.46 43-95/49-115 g/m2 LVOT Diam: 1.80 3.0+(-)1.3 cm 2D Systolic Function EF 4C: 64.50 >55% EF 2C: 62.60 >55% EF BiP: 63.40 >55% Mitral Valve MV Pk E: 1.22 MV PK A: 1.10 MV Decel Time: 189.00 E/A: 1.10 E'Lateral: 9.14 E'Medial: 8.16 E/E' Med: 15.00 E/E' Lat: 13.30 PHT: 55.00 MVA PHT: 4.00 Decel [place]: 6.45 Aortic Valve AoV Pk Abdirahman: 1.89 AoV Mn Abdirahman: 1.25 AoV VTI: 0.38 AoV Pk Grad: 14.00 Aov Mn Grad: 7.00 KIRSTIE Cont.VTI: 1.83 LVOT LVOT Pk Abdirahman: 1.19 LVOT Mn Abdirahman: 0.90 LVOT VTI: 0.27 LVOT Pk Grad: 6.00 LVOT Mn Grad: 4.00 LVOT Diam: 1.80 LVOT Area: 2.54 Diastolic Function MV Pk E: 1.22 MV Pk A: 1.10 E/A: 1.10 E'Medial: 8.16 E/E' Med: 15.00 E' Laterial: 9.14 E/E' Lat: 13.30 Tricuspid Valve TR Pk Abdirahman: 2.00 TR Pk Grad: 16.00 RA Press: 3.00 RVSP: 19.00 Great Vessels Aorta Sinus of Valsalva: 2.70 2.0-3.5 cm Ao Asc: 2.50 2.1-3.4 cm Pulmonary Valve PV Pk Abdirahman: 0.92 Peak PV Grad: 3.00 Updated in Other Vendor System with Status of Final Mukesh Arango MD electronically signed on 05/25/2024 4:32:22 PM with status of Final
--- OUTSIDE RECORDS SUMMARY | 2024-05-25 12:00 | XMS_ITS | Encounter Summary ---
Author Organization [employer] Address [address] [place] [address] Care Team Providers Care House Coordinator Name Role Phone Cristian Chacon MD Primary Care Prov ider Encounter Details Date Type Department Care Team ([facility] st Contact Info) Description 12/22/2023 Orders Only [facility] [address] [place], [place] [phone] Cristian Chacon MD [address] [place] [address] Social History Tobacco Use Types Packs/Day Years [...] as of this encounter Plan of Treatment Not on file documented as of this encounter Visit Diagnoses Not on filedocumented in this encounter Additional Health Concerns Assessment Noted Time PHQ-9 Depression Total Score: 16 024 1:19 PM EDT documented as of this encounter Care Teams House Coordinator Relationship Specialty Start Date End Date Cristian Chacon MD [address] [place] [id number] PCP - General Internal Medicine 03/17/19 [place] Supervisor FishingDirector Athletic 11/26/23 documented as of this encounter
--- OUTSIDE RECORDS SUMMARY | 2024-05-25 12:00 | XMS_ITS | Encounter Summary ---
Author Organization [employer] Address [address] [facility] 7[address] [place] [address] Care Team Providers Care Security Advisor Name Role Phone Cristian Chacon MD Primary Care Prov ider Reason for Visit * Reason Comments Med Change Request Encounter Details Date Type Department Care Team ([facility] Contact Info) Description 08/31/2023 Refill [facility] [address] [place], [place] [phone] Cristian Chacon MD 505 [place] [address] Social History Tobacco Use Types Packs/Day Years [...] documented as of this encounter Care Teams Security Advisor Relationship Specialty Start Date End Date Cristian Chacon MD [address] [place] [id number] PCP - General Internal Medicine 03/17/19 [place] Hacksaw InspectorImpregnator Electrolytic Capacitors 03/03/23 11/25/23 Ivy [place] Lang Path TherapistImpregnator Electrolytic Capacitors 11/26/23 documented as of this encounter
--- OUTSIDE RECORDS SUMMARY | 2024-05-25 12:00 | XMS_ITS | Encounter Summary ---
Author Organization [employer] Address [address] [facility] 7t [place] [address] Care Team Providers Care Box Spinner Name Role Phone Cristian Chacon MD Primary Care Prov ider Reason for Visit * Reason Onset Date Comments Nurse Triage 08/24/2023 Encounter Details Date Type Department Care Team ([facility] st Contact Info) Description 08/24/2023 Telephone [facility] [address] [place], [place] [phone] Cristian Chacon MD [address] [place] [address] Nurse Triage Social History Tobacco Use Types [...] 08/24/2023 10:26 AM EDT Triage call with [employer] [place] [id number] Pt reports rash has developed on upper, inner thighs and has spread to private area . Pt describesrash as red, bumpy and itchy. Pt reports some irritation vaginally and burning with urination. Burning is described as occurring when urine contacts rash but, may have other urinary symptoms as well.This is not clear to triage nurse. Advised Pt to come to [facility] today at 230pm. Pt agrees with [...] accepted this outcome Please contact pt at [phone] (pricer) documented in this encounter Plan of Treatment Not on file documented as of this encounter Visit Diagnoses Not on filedocumented in this encounter Additional Health Concerns Assessment Noted Time PHQ-9 Depression Total Score: 14 024 9:49 AM EST documented as of this encounter Care Teams Box Spinner Relationship Specialty Start Date End Date Cristian Chacon MD [address] [place] [phone] PCP - General Internal Medicine 03/17/19 Ivy [place] Operating Systems SpecialistFamily Mediator 03/03/23 11/25/23 Ivy [place] Email Operations ManagerFamily Mediator 11/26/23 documented as of this encounter
--- OUTSIDE RECORDS SUMMARY | 2024-05-25 12:00 | XMS_ITS | Encounter Summary ---
Author Organization [employer] Address [address] [place] [address] Care Team Providers Care Personal Shopper Name Role Phone Cristian Chacon MD Primary Care Prov ider Encounter Details Date Type Department Care Team ([facility] st Contact Info) Description 08/25/2023 Telephone [facility] MED & PEDS [address] [place], [place] [phone] Cristian Chacon MD [address] [place] [address] Social History Tobacco Use Types Packs/Day Years [...] documented as of this encounter Care Teams Personal Shopper Relationship Specialty Start Date End Date Cristian Chacon MD [address] [place] [phone] PCP - General Internal Medicine 03/17/19 Ivy [place] Inker MachineCompletions Engineer 03/03/23 11/25/23 [place] Energy Crop FarmerCompletions Engineer 11/26/23 documented as of this encounter
--- OUTSIDE RECORDS SUMMARY | 2024-05-25 12:00 | XMS_ITS | Encounter Summary ---
Author Organization [employer] Address [address] [facility] 7[address] [place] [address] Care Team Providers Care Quality Improvement Manager Name Role Phone Cristian Chacon MD Primary Care Prov ider Encounter Details Date Type Department Care Team ([facility] Contact Info) Description 11/19/2023 Orders Only [facility] [address] [place], [place] [phone] Provider, MD Roderick Social History Tobacco Use Types Packs/Day Years Used Date Smoking Tobacco: Never Passive Smoke Exposure: Never Smokeless Tobacco: Never Depression Answer Date Recorded Patient Health Questionnaire-9 Score 14 04/17/2023 Patient Health Questionnaire-9 Score 14 04/17/2023 Last PHQ-9: Questionnaire Data Not on file 0 04/17/2023 Housing Stability Answer Date Recorded What is your housing situation today? I have illy reeves 05/13/[address] you [...] documented as of this encounter Care Teams Quality Improvement Manager Relationship Specialty Start Date End Date Cristian Chacon MD [address] [place] [phone] PCP - General Internal Medicine 03/17/19 Ivy [place] Continuum Of Care ManagerBoiler Erector 03/03/23 11/25/23 Ivy [place] Fire Code InspectorBoiler Erector 11/26/23 documented as of this encounter
--- OUTSIDE RECORDS SUMMARY | 2024-05-25 12:00 | XMS_ITS | Encounter Summary ---
Author Organization [employer] Address [address] [place] [address] Care Team Providers Care Bag Bundler Name Role Phone Cristian Chacon MD Primary Care Prov ider Encounter Details Date Type Department Care Team ([facility] Contact Info) Description 09/04/[address] [facility] MED & PEDS [address] [place], [place] [phone] Cristian Chacon MD [address] [place] [address] Social History Tobacco Use Types Packs/Day Years [...] documented as of this encounter Care Teams Bag Bundler Relationship Specialty Start Date End Date Cristian Chacon MD [address] [place] [phone] PCP - General Internal Medicine 03/17/19 Ivy [place] Gym AttendantHome Performance Laborer 03/03/23 11/25/23 Ivy [place] Senior Product Marketing ManagerHome Performance Laborer 11/26/23 documented as of this encounter
--- OUTSIDE RECORDS SUMMARY | 2024-05-25 12:00 | XMS_ITS | Encounter Summary ---
Author Organization [employer] Address [address] [facility] 7[address] [place] [address] Care Team Providers Care Pony Edger Name Role Phone Cristian Chacon MD Primary Care Prov ider Encounter Details Date Type Department Care Team ([facility] Contact Info) Description 01/11/2024 Orders Only [facility] [address] [place] [address] Provider, MD Roderick Social History Tobacco Use [...] documented as of this encounter Care Teams Pony Edger Relationship Specialty Start Date End Date Cristian Chacon MD [address] [place] [phone] PCP - General Internal Medicine 03/17/19 Ivy [place] Program TechnicianClerical Aide Teacher 11/26/23 documented as of this encounter
--- OUTSIDE RECORDS SUMMARY | 2024-05-25 12:01 | XMS_ITS | Encounter Summary ---
Author Organization [employer] Address [address] [facility] [address] [place] [address] Care Team Providers Care Artist Model Name Role Phone Cristian Chacon MD Primary Care Prov ider Reason for Visit * Reason Onset Date Comments New med script 04/01/2022 Encounter Details Date Type Department Care Team ([facility] Contact Info) Description 04/01/2022 Telephone [facility] [address] [place], [place] [phone] Cristian Chacon MD [address] [place] [address] New med script Social History Tobacco Use [...] on filedocumented in this encounter Care Teams Artist Model Relationship Specialty Start Date End Date Cristian Chacon MD [address] [place] [address] PCP - General Internal Medicine 03/17/19 Ivy [place] Cream DumperStock Preparer 03/03/23 11/25/23 Ivy [place] Lead Refinery SupervisorStock Preparer 11/26/23 documented as of this encounter
--- OUTSIDE RECORDS SUMMARY | 2024-05-25 12:01 | XMS_ITS | Clinical Summary ---
Author Organization [employer] Address [address] [place] [address] Care Team Providers Care Interface Designer Name Role Phone Cristian Chacon MD Primary [...] 8 TABLETS PER 24 HOURS 60 tablet 023 Active ketotifen (Zaditor) 0.025 % ophthalmic solution Administer 1 drop into both eyes 2 times daily. 5 mL 024 Active naproxen (Naprosyn) 500 MG tablet TAKE 1 TABLET (500 MG) BY MOUTH IN THE MORNING AND AT BEDTIME FOR MODERATE PAIN NEEDED 60 tablet 024 Active losartan (Cozaar) 25 MG tablet TOME ОЛЕГ TABLETA TODOS [place] 90 tablet 3 024 Active losartan (Cozaar) 25 MG tablet Take 1 tablet (25 mg) by mouth in the morning. 90 tablet 3 024 Active meclizine (Antivert) 25 MG tablet Take [...] specify directions, refills and quantity 7 Tejal Active ammonium lactate (Lac-Hydrin Twelve) 12 % [...] HOURS OR DIRECTED BY 30 patch 2 024 Active triamcinolone (Kenalog) [...] at bedtime. 12 g 11 025 Active Blood Glucose Monitoring Suppl (FreeStyle Lite) w/Device kit 1 Device Once per day. 1 kit 025 Active FREESTYLE LITE test stripIndications: Type 2 diabetes mellitus without complication, without long-term current use of insulin ([facility]) Use to test blood sugar 1 times daily 100 each 12 025 2025 Active Lancets 33G miscIndications:T ype 2 diabetes mellitus without complication, without long-term current use of insulin ([facility]) 1 Units before breakfast. 100 each 11 Active loratadine (Claritin) 10 MG tablet Take 10 mg by mouth. 018 Discontinued(R eorder (will not trigger notification to Pharmacy)) fluticasone-salme terol (Advair HFA) 230-21 MCG/ACT inhaler Inhale 2 puffs in the morning and at bedtime. 12 g 11 023 2024 Discontinued(R eorder (will not trigger notification to Pharmacy)) Blood Glucose Monitoring Suppl (FreeStyle Lite) w/Device kit 1 Device in the morning. 1 kit 2024 Discontinued(R eorder (will not trigger notification to Pharmacy)) Lancets 33G misc 1 Units before breakfast. 100 each 023 2024 Discontinued(R eorder (will not trigger notification to Pharmacy)) fluticasone-salme terol (Advair HFA) 230-21 MCG/ACT inhaler Inhale 2 puffs in the morning and at bedtime. 12 g 025 2024 Discontinued(R eorder (will not trigger notification to Pharmacy)) predniSONE (Deltasone) 20 MG tablet Take 1 tablet (20 mg) by mouth Once per day for 5 days. 5 tablet 025 2024 fluticasone-salme terol (Advair HFA) 230-21 MCG/ACT inhalerIndication s:Multiple joint pain Inhale 2 puffs in the morning and at bedtime. 12 g 025 2024 Discontinued(R eorder (will not trigger notification to Pharmacy)) Lancets 33G miscIndications:T ype 2 diabetes mellitus without complication, without long-term current use of insulin ([facility]) 1 Units before breakfast. 100 each 025 2024 Discontinued(R eorder (will not trigger notification to Pharmacy)) FREESTYLE LITE test stripIndications: Type 2 diabetes mellitus without complication, without long-term current use of insulin ([facility]) Use to test blood sugar 1 times daily 100 each 12 025 2024 Discontinued(R eorder (will not trigger notification to Pharmacy)) Lancets 33G miscIndications:T ype 2 diabetes mellitus without complication, without long-term current use of insulin ([facility]) 1 Units before breakfast. 100 each 11 025 2024 Discontinued Active Problems Problem Noted Date Diagnosed Date Mixed stress and urge urinary incontinence 05/24 Assessment & Plan (05/24/2024 11:54 AM EDT): Patient with urine incontinence, will benefit from pull ups and underbed pads, will send rx Abnormal CT scan 03/25/2024 Overview (03/25/2024): CT [...] erythematosus 12/01/2023 Pre-diabetes 11/10/2023 Assessment & Plan (05/17/2024 2:43 PM EDT): On mounjaro, followed by endocrinology Assessment & Plan (11/10/2023 7:40 PM EDT): [...] Plan (08/10/2023 4:03 PM EDT): Referral to Director Clinical Applications for further evaluation of symptoms. Ordering Stress [...] node. Primary hypertension 04/17/2023 Assessment & Plan (05/17/2024 2:42 PM EDT): Controlled, keep low sodium diet and exercise as tolerated Assessment & Plan (12/22/2023 2:55 PM EDT): [...] allergic will prescribe ketotifen, follow up with skin pass operator, she has scheduled appointment already Pelvic pain 03/23/2023 Chronic pelvic pain in female 03/17/2023 Assessment & Plan (01/12/2024 6:12 PM EST): Patient wants to be followed at [place], will place referral Upper back pain 01/14/2023 [...] lateral foot pain, she has seen various software engineering project manager, she would like another opinion, she will [...] PM EST): Will place refferal to a critical power technician Seborrheic dermatitis 04/10/2022 Assessment & Plan [...] to perform daily activities, she currently has [employer] services but the hours provided are not [...] LESION, MOST LIKELY HEMORRHAGIC OVARIAN CYST. F/U AERODYNAMIC CONSULTANT S/P US PELVIS 07/04/13 DUE PELVIC PAIN. 2.9 X 3.8 X 3 CM LEFT ADNEXAL CYSTIC LESION, MOST LIKELY HEMORRHAGIC OVARIAN CYST. F/U AERODYNAMIC CONSULTANT Left carpal tunnel syndrome 06/22/2013 Vitamin D [...] EDUARDO'S THYROIDITIS, ENDO F/U with Dr Mcdowell Assessment & Plan (05/17/2024 2:42 PM EDT): Follwed by endocrinology, no changes will be made Insomnia 05/13/2007 Overview (05/29/2022): Overview: F/U AT [facility] (DR. NANCE). F/U AT [facility] (DR. NANCE). Mild persistent asthma 05/13/2007 Assessment & Plan (05/17/2024 2:45 PM EDT): On inhalers, no current exacerbation, continue same therapy Encounters Date Type Department Care Team Description 05/24/2024 Telephone [facility] [address] [place] [address] Cristian Chacon MD 05/24/2024 Refill [facility] [address] [place] [address] Cristian Chacon MD 05/18/2024 Orders Only GENERIC EXTERNAL DATA DEPARTMENT Provider, Generic External Data 05/17/2024 1:30 PM EDT Office Visit [facility] [address] [place] [address] Cristian Chacon MD Screening for colon cancer (Primary Dx); Primary hypertension; Acquired hypothyroidism; Pre-diabetes; Mild persistent asthma, unspecified whether complicated; Mixed stress and urge urinary incontinence 05/17/2024 Travel 05/16/2024 Orders Only GENERIC EXTERNAL DATA DEPARTMENT Provider, Generic External Data 05/13/2024 Patient Outreach [facility] [address] [place] [phone] Cristian Chacon MD Care Coordination (C3/W WILLIAM Parks initial assessment rescheduled) 05/13/2024 Population Health Risk Score [facility] (C3) Department [address] [phone] Provider, Population Health Generic 05/11/2024 Telephone [facility] [address] [place] [address] Cristian Chacon MD status check 05/10/2024 3:30 PM EDT Office Visit [facility] [address] [place] [address] Eduarda Villeda MD Other chest pain (Primary Dx); Multiple joint pain; Moderate persistent asthma without complication; Type 2 diabetes mellitus without complication, without long-term current use of insulin ([facility]); Fall, initial encounter 05/10/2024 Travel 05/04/2024 Patient Outreach [facility] [address] [place] [address] Cristian Chacon MD Care Coordination (Outreach) 05/04/2024 Telephone [facility] [address] [place] [address] Cristian Chacon MD ER Follow-up 05/03/2024 Orders Only GENERIC EXTERNAL DATA DEPARTMENT Provider, Generic External Data 05/03/2024 Patient Outreach [facility] [address] [place] [address] Cristian Chacon MD Care Coordination (Outreach) 05/02/2024 Orders Only [facility] External Provider, [facility] 04/27/2024 Patient Outreach [facility] [address] [place] [address] Cristian Chacon MD Care Coordination (Outreach) 04/26/2024 11:00 AM EST Office Visit [facility] [address] [place] [address] Aida Rae MD Moderate persistent asthma without complication (Primary Dx) 04/26/2024 Travel 04/26/2024 Patient Outreach [facility] [address] [place] [address] Cristian Chacon MD Care Coordination (Outreach) 04/20/2024 Telephone [facility] [address] [place] [address] Cristian Chacon MD Durable Medical Equipment 04/14/2024 Telephone [facility] [address] [place] [address] Cristian Chacon MD ER Follow-up 04/13/2024 10:45 AM EST Office Visit [facility] [address] [place] [address] Cristian Chacon MD Other chest pain (Primary Dx) 04/13/2024 Travel 04/04/2024 3:30 PM EST Office Visit [facility] [address] [place] [address] Cristian Chacon MD Dietary counseling; Exercise counseling; Systemic lupus erythematosus, unspecified SLE type, unspecified organ involvement status (CMS/HCC); Type 2 diabetes mellitus without complication, without long-term current use of insulin ([facility]); Asthma, unspecified asthma severity, unspecified whether complicated, unspecified whether persistent 04/04/2024 Travel 03/25/2024 3:20 PM EST Office Visit [facility] [address] [address] Sherry Kebede MD Abnormal CT scan (Primary Dx); Furuncle of right axilla; Vaginal yeast infection 03/25/2024 Telephone [facility] [address] [place] [phone] Radha Bagley RN triage/recent [facility] ED 03/24/24 03/25/2024 Telephone [facility] [address] [place] [address] Cristian Chacon MD Nurse Triage 03/23/2024 Telephone [facility] [address] [place] [phone] Cristian Chacon MD ER Follow-up; Nurse Triage 03/22/2024 Orders Only [facility] [address] [place] [address] Roderick Weiner MD 03/15/2024 Telephone [facility] [address] [place] [address] Cristian Chacon MD Pre-op Exam 03/10/2024 Telephone [facility] [address] [place] [address] Cristian Chacon MD No Show 03/09/2024 Telephone [facility] [address] [place] [address] Cristian Chacon MD pre op 02/27/2024 Refill [facility] [address] [place] [address] Cristian Chacon MD from Last 3 Months Immunizations Name Administration [...] is your housing situation today? I have lilytopher reeves 05/13/[address] you [...] Sign Reading Time Taken Comments Blood Pressure 132/84 05/17/2024 2:17 PM EDT Pulse 86 05/17/2024 1:31 PM EDT Temperature 36.2 ??C (97.2 ??F) 05/17/2024 1:31 PM ED T Respiratory Rate 18 05/17/2024 1:31 PM EDT Oxygen Saturation 97% 05/17/2024 1:31 PM EDT Inhaled Oxygen Concentration - - Weight 91.2 kg (201 lb 1.6 oz) 05/17/2024 1:31 P M EDT Height 157.5 cm (5' 2 ) 05/17/2024 1:31 PM EDT Body Mass Index 36.78 05/17/2024 1:31 PM EDT Plan of Treatment Health Maintenance Due Date Last Done Comments CT Colonography 1968 Colonoscopy 1968 Colorectal Cancer Screening 1968 FIT DNA/Cologuard 1968 FIT 1968 FOBT 1968 HIV Screening 1970 Sigmoidoscopy 1968 Diabetes: Foot Exam 1978 Eye Exam 1978 Hepatitis C Screening 1986 Hepatitis A Vaccines [...] Depression Screening 12/21/2024 12/22/2023, 12/22/19 24 Diabetes: Urine Protein Screening 04/20/2025 04/20/2024, 03/23/2024, 11/11/2023, Additional history exists SDOH Screening 04/26/2025 04/26/2024 Tobacco Screening 05/10/2025 05/10/2024 Alcohol/Substance Use Screening 05/17/2025 05/17/2024 Mammogram 05/26/2025 05/27/2023, 05/01, 05/20/2022, Additional history exists RSV Patients and Patients [...] Procedure Name Priority Date/Time Associated Diagnosis Comments BASIC METABOLIC PANEL Routine 05/18/2024 9:59 AM EDT CANCELLED CHEMISTRY Routine 05/16/2024 1 0:26 AM EDT ECG 12-LEAD Routine 05/10/2024 4:51 PM EDT [...] complication, without long-term current use of insulin ([facility]) CT CHEST ANGIO W AND WO IV CONTRAST Routine 03/19/2024 1:44 PM EST ECG 12-LEAD Routine 03/19/2024 1:42 PM EST HM HEMOGLOBIN A1C Routine 11/18/2023 10: 40 AM EDT BI MAMMOGRAM SCREENING TOMOSYNTHESIS BILATERAL Routine 05/27/2023 9:10 AM EDT LIPID PANEL, STANDARD Routine 11/26/2021 9:36 AM EDT from Last 3 Months or Most Recently Relevant to Health Maintenance Results * (ABNORMAL) Basic Metabolic Panel (05/18/2024 9:59 AM EDT) Only the most recent of2 resultswithin the time period is included. Sodium 140 135 - 145 mmol/L [facility] Potassium 4.5 3.3 - 5.1 mmol/L [facility] Chloride 109(H) 96 - 108 mmol/L [facility] Carbon Dioxide 24 22 - 29 mmol/L [facility] Anion Gap 12 12 - 20 [facility] Urea Nitrogen (BUN) 20(H) 9 - 16 mg/dL [facility] Creatinine, Serum 0.65 0.5 - 1.4 mg/dL [facility] Estimated Glomerular Filt Rate >60 [facility] Comment:Chronic Kidney Disea se: Estimated GFR < 60 mL/min/[id number] Kidney Disease: Estimated GFR < 15 mL/min/1.73m2 Glucose 110 60 - 115 mg/dL [facility] Calcium 9.0 8.4 - 10.2 mg/dL [facility] 05/18/2024 9:59 AM EDT 05/18/2024 10:00 AM EDT us Generic External Data Provider LAB BLOOD ORDERAB LES Final Result Performing Organization Address [facility] Co de Phone Number [facility] [address] [place] [phone] * Cancelled Chemistry (05/16/2024 10:26 AM EDT) Cancelled Chemistry SEE NOTE [facility] Comment:SPECIMEN HEMOLYZED 05/16/2024 10:2 6 AM EDT 05/16/2024 10:26 AM EDT us Generic External Data Provider HISTORICAL/NON OR DERABLE LABS Final Result Performing Organization Address City/[facility] Co de Phone Number [facility] [address] [place] [phone] * ECG 12 lead (05/10/2024 4:51 PM EDT) Only the most recent of3 resultswithin the time period is included. Eduarda Parkinson MD - 05/10/2024 4:51 PM EDT Heart rate 92 bpm. ??[place] VIII degrees. ??Normal sinus rhythm. ??No sign of left atrial enlargement/right atrial enlargement. ??No sign of hypertrophy. No ST elevation or ST depression. ??Normal EKG. us Eduarda Villeda MD ECG ORDERABLES Final Resul t * Glucose, Whole Blood (05/03/2024 5:15 PM EST) Glucose, Whole Blood 76 60 - 115 mg/dL [facility] Comment:METER #: [id number] 05/03/2024 5:15 PM EST 05/03/2024 5:51 PM EST us Generic External Data Provider LAB BLOOD ORDERAB LES Final Result Performing Organization Address [facility] de Phone Number [facility] [address] [place] [phone] * High Sensitivity Troponin I (05/03/2024 5:08 PM EST) Only the most recent of2 resultswithin the time period is included. TROPONIN I HIGH SENSITIVITY 7.4 <3.5 - 17.0 ng/L [facility] Comment:The [place] high sens itivity Troponin-I results should beused in conjunction with other diagnostic information suchas ECG, clinical observations and information, and patientsymptoms to aid in the diagnosis of AL. 05/03/2024 5:08 PM EST 05/03/2024 5:12 PM EST us Generic External Data Provider LAB BLOOD ORDERAB LES Final Result Performing Organization Address [facility] Co de Phone Number [facility] [address] [place] [phone] * Prothrombin Time-INR (05/03/2024 5:08 PM EST) Prothrombin Time 11.7 10.9 - 12.4 SEC [facility] INTERNATIONAL NORM RATIO 1.0 0.9 - 1.1 [facility] Comment:INTERNATIONAL NORMAL IZED RATIO (INR) [...] ORDERAB LES Final Result Performing Organization Address [facility] Co de Phone Number [facility] [address] [place] [phone] * SARS-CoV-2 RNA, Influenza A/B, and RSV RNA, Ql NAAT (05/03/2024 11:04 AM EST) Influenza A PCR NEGATIVE Negative [facility] Influenza B PCR NEGATIVE Negative [facility] Resp Syncy Virus RNA Qual PCR NEGATIVE Negative [facility] SARS COV2 PCR NEGATIVE Negative [facility] Comment:All test results mus t [...] use by authorized laboratories.Testing performed on the [employer] GeneXpert utilizingreal-time RT-PCR.All SARS CoV2 and positive influenza A/B results arereported to [facility]. 05/03/2024 11:0 4 AM EST 05/03/2024 11:12 AM EST us Generic External Data Provider LAB MICROBIOLOGY - GENERAL ORDERABLES Final Result [facility] [address] [place] [phone] * (ABNORMAL) CBC auto differential (05/03/2024 11:04 AM EST) White Blood Count 8.1 4.8 - 10.8 X10*3/uL [facility] Red Blood Count 4.07(L) 4.20 - 5.50 X10*6/uL [facility] Hemoglobin 11.9(L) 12.0 - 16.0 g/dl [facility] Hematocrit 35.8(L) 37.0 - 47.0 % [facility] Mean Corpuscular Volume 88.0 80.0 - 98.0 fL [facility] Mean Corpuscular Hemoglobin 29.2 27.0 - 33.0 pg [facility] Mean Corpuscular HGB Conc 33.2 31.0 - 35.0 g/dl [facility] Red Cell Distribution Width 14.4 11.0 - 16.0 % [facility] Platelet Count 339 160 - 400 X10*3/uL [facility] Mean Platelet Volume 9.3(L) 9.4 - 12.3 fL [facility] Neutrophils Percent Auto 83.7(H) 45 - 73 % [facility] Imm Gran Pct Auto 0.6(H) 0.0 - 0.4 % [facility] Lymphocytes Percent Auto 11.5(L) 20 - 40 % [facility] Monocytes Percent Auto 3.6 2 - 11 % [facility] Eosinophils Percent Auto 0.5 0 - 4 % [facility] Basophils Percent Auto 0.1 0 - 2 % [facility] NRBC Pct Auto 0.0 0.0 - 0.2 /100WBC [facility] Neutrophils Absolute Auto 6.7 2.0 - 8.3 x10*3/uL [facility] Imm Gran Abs Auto 0.05(H) 0.00 - 0.03 X10*3/uL [facility] Lymphocytes Absolute Auto 0.9(L) 1.2 - 4.9 X10*3/uL [facility] Monocytes Absolute Auto 0.3 0.1 - 1.2 X10*3/uL [facility] Eosinophils Absolute Auto 0.0 0.0 - 0.4 X10*3/uL [facility] Basophils Absolute Auto 0.0 0.0 - 0.2 X10*3/uL [facility] NRBC Abs Auto 0.000 0.0 - 0.012 X10*3/uL [facility] 05/03/2024 11:0 4 AM EST 05/03/2024 11:12 AM EST us Generic External Data Provider LAB BLOOD ORDERAB LES Final Result Performing Organization Address City/[facility]/ZIP Co de Phone Number [facility] [address] [place] [phone] * (ABNORMAL) C-reactive Protein (05/03/2024 11:04 AM EST) C Reactive Protein 3.79(H) < or = 0.50 mg/dL [facility] 05/03/2024 11:0 4 AM EST 05/03/2024 11:12 AM EST us Generic External Data Provider LAB BLOOD ORDERAB LES Final Result Performing Organization Address City/[facility]/ZIP Co de Phone Number [facility] [address] [place] [phone] * B Type Natriuretic Peptide (BNP) (05/03/2024 11:04 AM EST) Pathologist [facility] B Type Natriuretic Peptide 44 <100 pg/mL [facility] Comment:For those patients w ho are being treated with Natrecor(nesiritide, recombinant BNP), BNP testing should beperformed at least two hours post treatment in order toensure that only endogenous levels of BNP are detected. 05/03/2024 11:0 4 AM EST 05/03/2024 11:12 AM EST Generic External Data Provider LAB BLOOD ORDERAB LES Final Result Performing Organization Address [facility] Co de Phone Number [facility] [address] [place] [phone] * Magnesium (05/03/2024 11:04 AM EST) [facility] Magnesium 2.1 1.6 - 2.6 mg/dL [facility] 05/03/2024 11:0 4 AM EST 05/03/2024 11:12 AM EST Generic External Data Provider LAB BLOOD ORDERAB LES Final Result Performing Organization Address [facility] Phone Number [facility] [address] [place] [phone] * Lipase (05/03/2024 11:04 AM EST) [facility] Lipase 37 8 - 78 U/L [facility] 05/03/2024 11:0 4 AM EST 05/03/2024 11:12 AM EST Generic External Data Provider LAB BLOOD ORDERAB LES Final Result Performing Organization Address [facility] Phone Number [facility] [address] [place] [phone] * Creatine Kinase, Total (05/03/2024 11:04 AM EST) [facility] Creatine Kinase Total 35 26 - 140 U/L [facility] 05/03/2024 11:0 4 AM EST 05/03/2024 11:12 AM EST us Generic External Data Provider LAB BLOOD ORDERAB LES Final Result Performing Organization Address [facility] Phone Number [facility] [address] [place] [phone] * Hepatic Function Panel (05/03/2024 11:04 AM EST) Bilirubin, Total 0.5 0.0 - 1.0 mg/dL [facility] Bilirubin, Direct 0.2 0.0 - 0.5 mg/dL [facility] Aspartate Amino Transferase 14 5 - 31 U/L [facility] Alanine Aminotransferase 13 0 - 31 U/L [facility] Total Protein 7.0 6.5 - 8.0 g/dL [facility] Albumin Level 3.5 3.5 - 5.0 g/dL [facility] Alkaline Phosphatase 54 39 - 117 U/L [facility] 05/03/2024 11:0 4 AM EST 05/03/2024 11:12 AM EST Generic External Data Provider LAB BLOOD ORDERAB LES Final Result Performing Organization Address [facility] Phone Number [facility] [address] [place] [phone] * XR Chest 1 View (05/03/2024 10:40 AM EST) Anatomical Region Laterality Modality Chest Radiographic Amanda ging 05/03/2024 10:4 0 AM EST Narrative 05/03/2024 11:39 AM EST ? [facility] ?[address] ?[place] [address] ?XRay Report ? Signed ? Patient: Liriano,Scarlett ?MR#: [id number] ?? [id number] ? : 1970 ?Acct:[id number] ? Age/Sex: 53 / F ?ADM Date: 03/04/25 ? Loc: HO.ED ? Attending Dr: ? Ordering Physician: Dana Montenegro DO ?? Date of Service: 05/03/24 ?? Procedure(s): XR chest 1V ?? Accession Number(s): [id number] ? cc: Cristian Chacon MD; Dana Montenegro [...] DD/ 1040 ? TD/TT: 05/03/24 1100 ? Titrator: MSM ? Procedure Note Jonnyaudraconjensen, Image - 05/03/2024 [place] [address] XRay Report Signed Patient: Scarlett LirianoMR#: [id number] 354 : 1970Acct:[id number] Age/Sex: 53 / FADM Date: 05/03/24 Loc: HO.ED Attending Dr: Ordering Physician: Dana Montenegro DO Date of Service: 05/03/24 Procedure(s): XR chest 1V Accession Number(s): [id number] cc: Cristian Chacon MD; Dana Montenegro DO [...] 05/03/24 1136 DD/ 1040 TD/TT: 05/03/24 1100 Titrator: LEATHA [facility] External Provider IMG XR PROCEDURES Final Result * US Pelvis Transvaginal (05/03/2024 9:16 AM EST) Anatomical Region Laterality Modality Pelvis Ultrasound 05/03/2024 9:16 AM EST Narrative 05/03/2024 9:18 AM EST ? [facility] ?[address] ?[place] [address] ? Ultrasound Report ? Signed ? Patient: Scarlett Liriano ?MR#: [id number] ?? 354 ? : 1970 ?Acct:[id number] ? Age/Sex: 53 / F ?ADM Date: 05/02/24 ? Loc: HO.US ? Attending Dr: Gavino Wynne MD ? Ordering Physician: Gavino Wynne MD ?? Date of Service: 05/02/24 ?? Procedure(s): US pelvic and transvaginal ?? Accession Number(s): [id number] ? cc: Saskia Rosas MD; Gavino Wynne [...] signed by Meg Gleason MD in OV> ?05/03/24916 ? DD/ 5 ? TD/TT: 05/03/24915 ? Titrator: ? Procedure Note Donotuseinterpreter, Image - 05/03/2024 [place] [address] Ultrasound Report Signed Patient: Harish Liriano#: [id number] 354 : 1970Acct:[id number] Age/Sex: 53 / FADM Date: 05/02/24 Loc: HO.US Attending Dr: Gavino Wynne MD Ordering Physician: Gavino Wynne MD Date of Service: 05/02/24 Procedure(s): US pelvic and transvaginal Accession Number(s): [id number] cc: Saskia Rosas MD; Gavino Wynne MD [...] MD in OV> 05/03/24916 DD/ 5 TD/TT: 03/04/25 0916 Titrator: [facility] External Provider IMG US PROCEDURES Final Result * POCT Glucose (04/04/2024 4:00 PM EST) Glucose Blood, POC 174 60 - 200 mg/dL QC Media Lot # [id number] Lot# Expiration Date , Blood Capillary blood specimen / Unknown 04/04/2024 [...] EDT Narrative 06/23/2023 5:53 AM EDT ? [facility] [place] ? [address] ?[place] [address] ? Mammography Report ? Signed ? Patient: Heri,Scarlett ?MR#: [id number] ?? [id number] ? : 1970 ?Acct:[id number] ? Age/Sex: 52 / F ?ADM Date: 03/27/24 ? Loc: HO.MAMMO ? Attending Dr: Cristian Martinez MD ? Ordering Physician: Cristian Chacon MD ?Res ?? ults: 1Negative ? Date of Service: 05/27/23 ?Follow Up: 1 Year From Orig ?? inal Mammogram ? Procedure(s): MM tomosynthesis screening BI ?? Accession Number(s): [id number] ? cc: Cristian Chacon MD ? EXAMINATION: [...] 0549 ? DD/ 09 ? TD/TT: ? Titrator: ? Procedure Note Donotuseinterpreter, Image - 06/23/2023 [facility] [address] [place] [address] Mammography Report Signed Patient: Scarlett LirianoMR#: [id number] : 1970Acct:[id number] Age/Sex: 52 / FADM Date: 05/27/23 Loc: HO.MAMMO Attending Dr: Cristian Martinez MD Ordering Physician: Cristian Chacon ults: 1Negative Date of Service: 05/27/23Follow Up: 1 Year From Orig ina Mammogram Procedure(s): MM tomosynthesis screening BI Accession Number(s): [id number] cc: Cristian Chacon MD EXAMINATION: MM SCREENING [...] in OV> 06/23/23 0549 DD/ 0910 TD/TT: Titrator: Cristian Martinez MD IMG BI PROCEDURES Final [...] ?? Lopez GODFREY et al. KAILEE. 2013;310(19): 0355-5988 ?? (http://education.Mandae.Mygeni/faq/PLC603) Non-HDL Cholesterol 121 <130 mg/dL (calc) [facility] Comment: For patients with diabetes plus 1 major ASCVD risk ?? factor, treating to a non-HDL-C goal of <100 mg/dL ?? (LDL-C of <70 mg/dL) is considered a therapeutic ?? option. Triglycerides 91 <150 mg/dL [facility] 11/26/2021 9:36 AM EDT us Cristian Martinez MD LAB BLOOD ORDERABL ES Final Result [facility] [address] from Last 3 Months or Most Recently Relevant to Health Maintenance Insurance C3 Care Teams Interface Designer Relationship Specialty Start Date End Date Cristian Chacon MD [address] [place] [address] PCP - General Internal Medicine 03/17/19 Ivy Payne Custom Van ConverterOutpatient Phlebotomist 11/26/23
--- OUTSIDE RECORDS SUMMARY | 2024-05-25 12:01 | XMS_ITS | Clinical Summary ---
Author Organization [facility] Address [address] [place] [address] Phone Care Team Providers Care Submarine Advisory Team Watch Officer Name Role Phone Cristian Chacon Primary Care [...] Active LORAZEPAM ORAL Take by mouth. Active Active Problems Problem Noted Date Diagnosed Date Painful scar 08/24/2017 Breast asymmetry 07/03/2017 Depression with anxiety 02/18/2017 Gastroesophageal reflux disease without esophagi tis 02/18/2017 Hypothyroidism 02/18/2017 Encounters Date Type Department Care Team Description 04/13/2024 10:47 PM EST - 04/14/2024 3:00 AM [facility] [address] [place] [phone] Seth Jason MD URI due to influenza A virus (Primary Dx); Chest wall pain Discharge Disposition: Home or Self Care 03/19/2024 1:30 PM EST - 03/19/2024 8:28 PM [facility] [address] [place] [phone] Ran Adams MD Goebel, Mathew, MD Other [...] of3 resultswithin the time period is included. [facility] High Sensitivity Troponin I 9 <=54 ng/L LAB CHEMISTRY METHOD 04/14/2024 1:47 AM EST [facility] Blood Venous blood specimen / Unknown Venipuncture / Unknown 04/14/2024 12:55 AM EST 04/14/2024 1:22 AM EST [facility] - 04/14/2024 1:47 AM EST High levels of biotin in samples may falsely decrease hsTroponin values. ??Use caution when interpreting hsTroponin results in patients taking biotin who exhibit renal impairment (eGFR <60) or in patients taking more than 20 mg/day of biotin. us Ashley NELSON LAB BLOOD ORDERABLES Final Resul t [facility] [address] [place] [address], * (ABNORMAL) CBC auto differential (04/14/2024 12:55 AM EST) Only the most recent of2 resultswithin the time period is included. [facility] WBC 5.7 4.8 - 10.8 K/mcL LAB HEMETOLOGY METHOD 04/14/2024 1:27 AM EST [facility] RBC 4.10 3.80 - 4.80 M/mcL LAB HEMETOLOGY METHOD 04/14/2024 1:27 AM [facility] Hemoglobin 11.9 11.5 - 16.0 g/dL LAB HEMETOLOGY METHOD 04/14/2024 1:27 AM [facility] Hematocrit 37.2 35.0 - 47.0 % LAB HEMETOLOGY METHOD 04/14/2024 1:27 AM [facility] MCV 90.7 79.0 - 98.0 FL LAB HEMETOLOGY METHOD 04/14/2024 1:27 AM [facility] MCH 29.0 27.0 - 32.0 pcg LAB HEMETOLOGY METHOD 04/14/2024 1:27 AM [facility] MCHC 32.0 32.0 - 37.0 g/dL LAB HEMETOLOGY METHOD 04/14/2024 1:27 AM [facility] RDW 13.9 11.0 - 15.0 % LAB HEMETOLOGY METHOD 04/14/2024 1:27 AM [facility] Platelets 326 130 - 400 K/mcL LAB HEMETOLOGY METHOD 04/14/2024 1:27 AM [facility] MPV 9.3 7.0 - 11.0 FL LAB HEMETOLOGY METHOD 04/14/2024 1:27 AM [facility] NRBC 0.0 <1.0 % LAB HEMETOLOGY METHOD 04/14/2024 1:27 AM [facility] NRBC Absolute 0.00 <0.10 K/mcL LAB HEMETOLOGY METHOD 04/14/2024 1:27 AM [facility] Neutrophils Relative 80.1 % LAB HEMETOLOGY METHOD 04/14/2024 1:27 AM [facility] Lymphocytes Relative 11.2 % LAB HEMETOLOGY METHOD 04/14/2024 1:27 AM [facility] Monocytes Relative 3.9 % LAB HEMETOLOGY METHOD 04/14/2024 1:27 AM [facility] Eosinophils Relative 3.5 % LAB HEMETOLOGY METHOD 04/14/2024 1:27 AM [facility] Basophils Relative 0.4 % LAB HEMETOLOGY METHOD 04/14/2024 1:27 AM EST [facility] Immature Granulocytes Relative 0.9 % LAB HEMETOLOGY METHOD 04/14/2024 1:27 AM EST [facility] Neutrophils Absolute 4.53 1.50 - 7.00 K/mcL LAB HEMETOLOGY METHOD 04/14/2024 1:27 AM EST [facility] Lymphocytes Absolute 0.63(L) 1.00 - 5.00 K/mcL LAB HEMETOLOGY METHOD 04/14/2024 1:27 AM EST [facility] Monocytes Absolute 0.22 0.20 - 1.00 K/mcL LAB HEMETOLOGY METHOD 04/14/2024 1:27 AM [facility] Eosinophils Absolute 0.20 0.00 - 0.50 K/mcL LAB HEMETOLOGY METHOD 04/14/2024 1:27 AM EST [facility] Basophils Absolute 0.02 0.00 - 0.20 K/mcL LAB HEMETOLOGY METHOD 04/14/2024 1:27 AM [facility] Immature Granulocytes Absolute 0.05(H) 0.00 - 0.03 K/mcL LAB HEMETOLOGY METHOD 04/14/2024 1:27 AM [facility] Blood Venous blood specimen / Unknown Venipuncture / Unknown 04/14/2024 12:55 AM EST 04/14/2024 1:22 AM EST us Yotam Block PA LAB BLOOD ORDERABLES Final Resul t [facility]) [facility] [address] [place] [address], * Lipase (04/14/2024 12:55 AM EST) Only the most recent of2 resultswithin the time period is included. Lipase 58 13 - 75 unit/L LAB CHEMISTRY METHOD 04/14/2024 2:14 AM [facility] Blood Venous blood specimen / Unknown Venipuncture / Unknown 04/14/2024 12:55 AM EST 04/14/2024 1:22 AM EST us Ashley NELSON LAB BLOOD ORDERABLES Final Resul t [facility] [address] [place] [address], [place] [phone] * (ABNORMAL) Comprehensive metabolic panel (04/14/2024 12:55 AM EST) Only the most recent of2 resultswithin the time period is included. Sodium 135 133 - 145 mmol/L LAB CHEMISTRY METHOD 04/14/2024 2:14 AM [facility] Potassium 4.2 3.5 - 5.5 mmol/L LAB CHEMISTRY METHOD 04/14/2024 2:14 AM [facility] Chloride 101 96 - 110 mmol/L LAB CHEMISTRY METHOD 04/14/2024 2:14 AM [facility] CO2 29 21 - 32 mmol/L LAB CHEMISTRY METHOD 04/14/2024 2:14 AM [facility] Anion Gap 5 3 - 11 LAB CHEMISTRY METHOD 04/14/2024 2:14 AM [facility] Comment:Rechecked. TB 2-13-2 5 Glucose 84 70 - 100 mg/dL LAB CHEMISTRY METHOD 04/14/2024 2:14 AM [facility] BUN 23 5 - 25 mg/dL LAB CHEMISTRY METHOD 04/14/2024 2:14 AM [facility] Creatinine 0.84 0.50 - 1.10 mg/dL LAB CHEMISTRY METHOD 04/14/2024 2:14 AM [facility] eGFR 82 >=60 mL/min/1. 73m2 LAB CHEMISTRY METHOD 04/14/2024 2:14 AM [facility] Comment:Calculation based on the??Chronic Kidney Disease Epidemiology Collaboration (CKD-EPI) equation refit??without adjustment for race. BUN/Creatinine Ratio 27.4 LAB CHEMISTRY METHOD 04/14/2024 2:14 AM [facility] Calcium 9.0 8.5 - 10.5 mg/dL LAB CHEMISTRY METHOD 04/14/2024 2:14 AM [facility] AST (SGOT) 20 10 - 42 unit/L LAB CHEMISTRY METHOD 04/14/2024 2:14 AM [facility] ALT (SGPT) 16 10 - 60 unit/L LAB CHEMISTRY METHOD 04/14/2024 2:14 AM [facility] Alkaline Phosphatase 54 42 - 121 unit/L LAB CHEMISTRY METHOD 04/14/2024 2:14 AM [facility] Total Protein 7.1 6.0 - 8.0 g/dL LAB CHEMISTRY METHOD 04/14/2024 2:14 AM [facility] Albumin 3.1(L) 3.2 - 5.0 g/dL LAB CHEMISTRY METHOD 04/14/2024 2:14 AM [facility] Total Bilirubin 0.4 0.0 - 1.4 mg/dL LAB CHEMISTRY METHOD 04/14/2024 2:14 AM [facility] Blood Venous blood specimen / Unknown Venipuncture / Unknown 04/14/2024 12:55 AM EST 04/14/2024 1:22 AM EST us Ashley NELSON LAB BLOOD ORDERABLES Final Resul t [facility] [address] [place] [address], * ECG 12 lead (04/14/2024 12:41 AM EST) Only the most recent of2 resultswithin the time period is included. Ventricular Rate ECG 102 BPM GEMUSE Atrial Rate 102 BPM GEMUSE P-R Interval 118 ms GEMUSE QRS Duration 66 ms GEMUSE Q-T Interval 326 ms GEMUSE QTc 424 ms GEMUSE P Wave [place] 37 degrees GEMUSE R [place] 15 degrees GEMUSE T [place] 29 degrees GEMUSE ECG Interpretation Sinus tachycardia [...] Signed Date: 04/14/2024 07:59 ET Workstation ID: [id number] Transcribed By: Self Edit Transcribed Date: 04/14/2024 [...] Signed Date: 04/14/2024 07:59 ET Workstation ID: [id number] Transcribed By: Self Edit Transcribed Date: 04/14/2024 07:57 ET Seth Jason MD IMG XR PROCEDURES Final Result * (ABNORMAL) Respiratory virus panel molecular study (04/13/2024 1:02 PM EST) Adenovirus Detection by PCR Not Detected Not Detected LAB MICROBIOLOGY METHOD 04/13/2024 2:09 PM [facility] Influenza B PCR Not Detected Not Detected LAB MICROBIOLOGY METHOD 04/13/2024 2:09 PM [facility] Coronavirus 229E Not Detected Not Detected LAB MICROBIOLOGY METHOD 04/13/2024 2:09 PM EST [facility] Coronavirus HKU1 Not Detected Not Detected LAB MICROBIOLOGY METHOD 04/13/2024 2:09 PM [facility] Coronavirus OC43 Not Detected Not Detected LAB MICROBIOLOGY METHOD 04/13/2024 2:09 PM [facility] Coronavirus NL63 Not Detected Not Detected LAB MICROBIOLOGY METHOD 04/13/2024 2:09 PM [facility] Parainfluenza Virus 1 Not Detected Not Detected LAB MICROBIOLOGY METHOD 04/13/2024 2:09 PM [facility] Parainfluenza Virus 2 Not Detected Not Detected LAB MICROBIOLOGY METHOD 04/13/2024 2:09 PM [facility] Parainfluenza Virus 3 Not Detected Not Detected LAB MICROBIOLOGY METHOD 04/13/2024 2:09 PM [facility] Parainfluenza Virus 4 Not Detected Not Detected LAB MICROBIOLOGY METHOD 04/13/2024 2:09 PM [facility] RSV PCR Not Detected Not Detected LAB MICROBIOLOGY METHOD 04/13/2024 2:09 PM [facility] Human Metapneumovirus A and B Not Detected Not Detected LAB MICROBIOLOGY METHOD 04/13/2024 2:09 PM [facility] Rhinovirus/Entero virus Not Detected Not Detected LAB MICROBIOLOGY METHOD 04/13/2024 2:09 PM [facility] Bordetella pertussis Not Detected Not Detected LAB MICROBIOLOGY METHOD 04/13/2024 2:09 PM [facility] Bordetella parapertussis Not Detected Not Detected LAB MICROBIOLOGY METHOD 04/13/2024 2:09 PM [facility] Influenza A H3 Detected(A ) Not Detected LAB MICROBIOLOGY METHOD 04/13/2024 2:09 PM [facility] Mycoplasma pneumo by PCR Not Detected Not Detected LAB MICROBIOLOGY METHOD 04/13/2024 2:09 PM [facility] Chlamydia pneumoniae Not Detected Not Detected LAB MICROBIOLOGY METHOD 04/13/2024 2:09 PM [facility] SARS COV-2 Not Detected Not Detected LAB MICROBIOLOGY METHOD 04/13/2024 2:09 PM [facility] Swab Both anterior nares / Unknown Non-blood Collection / Unknown 04/13/2024 1:02 PM EST 04/13/2024 1:02 PM EST [facility] - 04/13/2024 2:09 PM EST Testing was performed using the [employer] Respiratory Pathogen PCR Assay. All results must [...] MICROBIOLOGY - GEN ERAL ORDERABLES Final Result [facility] [address] [place] [address], * CT Angio Chest wo and/or w [...] LAB COAGULATION METHOD 03/19/2024 6:08 PM EST [facility] Blood Venous blood specimen / Unknown Venipuncture / Unknown 03/19/2024 5:25 PM EST 03/19/2024 5:55 PM EST Narrative [facility] - 03/19/2024 6:08 PM EST D-Dimer <230 ng/mL (D-Dimer units) is the threshold for exclusion of DVT/PE. D-Dimer may be elevated in: Critically ill, severely infected, trauma patients, DIC, acute CVA, acute HI, unstable angina, AF, old age, , and smoking. D-Dimer may be decreased with: Initiation of heparin therapy and oral anticoagulants. us Ran Adams MD LAB BLOOD ORDERABLES Final R esult [facility] [address] [place] [address], * B-type natriuretic peptide (03/19/2024 2:53 PM EST) BNP 37 <=100 pcg/mL LAB CHEMISTRY METHOD 03/19/2024 3:47 PM EST [facility] Blood Venous blood specimen / Unknown Venipuncture / Unknown 03/19/2024 2:53 PM EST 03/19/2024 3:10 PM EST Marcial Jones MD LAB BLOOD ORDERABLES Gladis l Result [facility] [address] [place] [address], [place] [phone] * Magnesium (03/19/2024 2:53 PM EST) [facility] Magnesium 2.0 1.9 - 2.6 mg/dL LAB CHEMISTRY METHOD 03/19/2024 3:40 PM EST [facility] Blood Venous blood specimen / Unknown Venipuncture / Unknown 03/19/2024 2:53 PM EST 03/19/2024 3:10 PM EST Marcial Jones MD LAB BLOOD ORDERABLES Gladis l Result Performing Organization Address City/[facility]/ZIP Co de Phone Number [facility] [address] [place] [address], * DIANE SCREENING DIGITAL (02/27/2018 5:16 PM EST) Anatomical Region Laterality Modality Mammography 02/24/2018 10:4 4 AM EST Narrative 02/27/2018 5:16 PM EST [facility] Diagnostic Imaging Department [address] [place] [address] Patient: ??SCARLETT NEUMANN ?/Age/Sex: 1970 - 47 - F Unit#: ??[id number] ? Location/Status: ??SPDIMAM/REG CLI ? Mnemonic/Ordering Site: ??DIGSC/SPMAM Ordering Physician: ??EDUARDA VILLEDA MD Diane Screening Digital - 02/27/18 - 0758 INDICATION: SCREENING COMPARISON: [facility] mammograms dating back to ?? 08/05/2012 FINDINGS: CC and MLO views of the breasts were obtained, using full field digital mammography with 3D tomosynthesis views in the MLO projection. Computer aided detection with the Neomatrix 7.2-H was employed. History of reduction mammoplasty [...] date for the next mammogram. (G0202 / [id number]) , ??[id number] Dictating Physician: ??YONG WEATHERS MD Electronically Signed by: ??YONG WEATHERS MD Dic Date/Time: ??12/29/18 1712 Sign date/Time: ??02/27/181715 Procedure Note Yong Weathers MD - 02/18/2022 [facility] Diagnostic Imaging Department [address] [place] [address] Patient: THIENSCARLETT /Age/Sex: 1970 - 47 - F Unit#: [id number] Location/Status: SPDIMAM/REG CLI Mnemonic/Ordering Site: [facility] Ordering Physician: EDUARDA VILLEDA MD Diane Screening Digital - 02/27/18 - 0758 INDICATION: SCREENING COMPARISON: [facility] mammograms dating back to 08/05/2012 FINDINGS: CC and MLO views of the breasts were obtained, using full field digital mammography with 3D tomosynthesis views in the MLO projection. Computeraided detection with the Neomatrix 7.2-H was employed. History of reduction mammoplasty [...] a target date for the next mammogram. G0497 / [id number]) , [id number] Dictating Physician: YONG WEATHERS MD Electronically Signed by: YONG WEATHERS MD Dic Date/Time: 02/27/181711 Sign date/Time: 02/27/181715 us Eduarda Villeda MD IMG BI PROCEDURES Final R esult from Last 3 Months or Most Recently Relevant to Health Maintenance Insurance MEDICAID - [place] Care Teams Submarine Advisory Team Watch Officer Relationship Specialty Start Date End Date Cristian Chacon [address] [place], [place] PCP - General Internal Medicine 10/17/20
--- OUTSIDE RECORDS SUMMARY | 2024-05-25 12:01 | XMS_ITS | Encounter Summary ---
Author Organization [employer] [facility] Address [address] [place] [address] Care Team Providers Care Overlay Plastician Name Role Phone Cristian Chacon MD Primary Care Prov ider Encounter Details Date Type Department Care Team (Latest Contact Info) Description 04/12/2019 Abstract C CONVERSIONS Dental, Provider, DDS Social History Tobacco [...] on filedocumented in this encounter Care Teams Overlay Plastician Relationship Specialty Start Date End Date Cristian Chacon MD [address] [place] [address] PCP - General Internal Medicine 03/17/19 Ivy Payne Rental Car PorterRake Operator 03/03/23 11/25/23 Ivy Payne Terminal WorkerRake Operator 11/26/23 documented as of this encounter
--- OUTSIDE RECORDS SUMMARY | 2024-05-25 12:01 | XMS_ITS | Referral Summary ---
Author Organization [facility] Address [address] [place] [address] Care Team Providers Care Car Hop Name Role Phone Cristian Chacon MD Primary Care Prov ider Encounters Date Type Department Care Team Description 04/21/2024 Telephone [facility] 4th floor Cardiology Medicine [address] [place] [phone] Special Services Director: Mary Arriaga Telephone Intake, Staff PAC Form/Letter/Record s Request 04/20/2024 9:00 AM EST Follow-Up [facility] Rhe[facility]ology [facility] [address] [place] [address] Special Services Director: Alonzo Baez MD FELI positive (Primary Dx); Arthralgia, unspecified joint; Chest pain, unspecified type; Moderate persistent asthma, unspecified whether complicated 04/08/2024 Telephone [facility] Rhe[facility]ology [facility] [address] [place] [address] Special Services Director: Zaida Rust Telephone Intake, Staff PAC Sick/Symptoms 03/30/2024 Telephone [facility] [address] [place] [address] Special Services Director: Alonzo Baez MD PAC Patient Request Call Back; PAC Clinical Questions 03/27/[address] [facility] Rheumatology [address] [place] [address] Special Services Director: Alonzo Caputo MD 03/25/[address] [facility] Rheumatology [address] [place] [address] Special Services Director: Alonzo Caputo MD 03/24/[address] [facility] Rheumatology [address] [place] [address] Special Services Director: Alonzo Caputo MD 03/24/[address] [facility] Rheumatology [address] [place] [address] Special Services Director: Alonzo Caputo MD 03/23/2024 4:00 PM EST - 03/23/2024 11:59 PM EST Hospital Encounter [facility] XRay [address] [place] [address] Alonzo Persaud MD Chronic pain of both shoulders; Bilateral hip pain; Neck pain Discharge Disposition: Home or Self Care () 03/23/2024 3:20 PM EST Office Visit [facility] [address] [place] [address] Special Services Director: Alonzo Baez MD Chronic pain of both shoulders (Primary Dx); Bilateral hip pain; Neck pain 03/22/2024 Telephone [facility] [address] [place] [address] Special Services Director: Zaida Rust Telephone Intake, Staff PAC Provider Requested Call Back Dr Persaud 03/22/2024 Telephone [facility] Endocrinology Clinic [address] [place] [phone] Special Services Director: Alysha Roman Telephone Intake, Staff 03/17/2024 Refill [facility] [address] [place] [address] Special Services Director: Alonzo Baez MD 03/05/2024 Refill [facility] [address] [place] [address] Special Services Director: Alonzo Baez MD from Last 3 Months Allergies Active Allergy [...] tablet TOME ОЛЕГ TABLETA TODOS LOS D 2 Active hydrocortisone 2.5% cream Apply topically to the affected area 2 times a day. 2 Active hydrOXYchloroQU INE (PLAQUENIL) 200 mg tablet TOME ОЛЕГ TABLETA TODOS LOS D 2 Active LORazepam (ATIVAN) 0.5 [...] Take 25 mg by mouth daily. 4 Active predniSONE (DELTASONE) 1 mg tablet Take [...] 2 times a day. 60 tablet 2 Active Active Problems Problem Noted Date Diagnosed [...] Description 06/01/2024 9:00 AM EDT Office Visit [facility] Building 4th floor Cardiology Medicine [address] [place] [phone] Special Services Director: Hemal Fritz MD [address] [place] [phone] 08/02/2024 1:30 PM EDT Follow-Up [facility] Rheum Dermatology Clinic [address] [place] [address] Special Services Director: Morales Ramsey MD [address] [place] [address] 08/16/2024 2:00 PM EDT Office Visit [facility] [address] [place] [phone] Special Services Director: Juan Ramon Vallejo, Dennis Whitlock MD [address] [place] [address] Scheduled Procedures Name Priority Associated Diagnoses Date/Ti [...] AM EST FELI positive Arthralgia, unspecified joint [id number] STAT 04/20/19 9:23 AM EST FELI positive [...] pain Neck pain URINE CULTURE, ROUTINE Routine 4:48 PM EST Chronic pain of [...] pain XR SHOULDER 2+ VW LEFT Routine 4:27 PM EST Chronic pain of both shoulders Bilateral hip pain Neck pain HEPATITIS C ANTIBODY W/REFLEX TO HCV [...] period is included. Pathologist [facility] Extra Tube Hold for add-ons. 04/20/2024 2:05 PM EST [facility] Comment:Auto resulted. Urine Urine specimen collection, clean catch / Unknown Non-Blood Collection / Unknown 04/20/2024 9:23 AM EST 04/20/2024 9:39 AM EST us Alonzo Persaud MD LAB URINE ORDERABLES Final Result [facility] [address] [place] [address], * (ABNORMAL) DNA AB(DS) Crithidia Titer (04/20/2024 9:23 AM EST) Only the most recent of2 resultswithin the time period is included. Pathologist [facility] DNA Ab Crithidia Titer 1:40(H) <1:10 titer 04/23/2024 12:47 PM EST PHILLIP LAO ([place]) Blood Structure of peripheral vein / Unknown Venipuncture / Unknown 04/20/2024 9:23 AM EST 04/20/2024 9:38 AM EST Narrative [facility] - 04/23/2024 12:47 PM EST [facility] Received Date: us Alonzo Persaud MD LAB BLOOD ORDERABLES Final Result [facility] ROS[facility] [address] [facility] 3rd Floor, [place] [address], [place] [phone] PHILLIP LAO ([place]) [address] [place], [place] , [place] * (ABNORMAL) Urinalysis W/Reflex to Microscopic & Culture (04/20/2024 9:23 AM EST) Only the most recent of2 resultswithin the time period is included. Color, Urine Yellow Colorless, Light Yellow, Yellow, Dark Yellow 04/20/2024 9:59 AM [facility] Clarity, Urine Clear Clear 04/20/2024 9:59 AM [facility] Specific [place], Urine 1.024 1.005 - 1.030 04/20/2024 9:59 AM [facility] pH, Urine 5.0 4.6 - 8.0 04/20/2024 9:59 AM [facility] Protein, Urine 1+(A) Negative 04/20/2024 9:59 AM EST [facility] Glucose, Urine Negative Negative 04/20/2024 9:59 AM EST [facility] Ketones, Urine Negative Negative 04/20/2024 9:59 AM EST [facility] Bilirubin, Urine Negative Negative 04/20/2024 9:59 AM [facility] Blood, Urine Negative Negative 04/20/2024 9:59 AM EST [facility] Nitrite, Urine Negative Negative 04/20/2024 9:59 AM EST [facility] Urobilinogen, Urine Normal Normal 04/20/2024 9:59 AM EST [facility] Leukocyte Esterase, Urine Negative Negative 04/20/2024 9:59 AM EST [facility] WBC, Urine 1 0 - 2 /HPF 04/20/2024 9:59 AM EST [facility] RBC, Urine <1 0 - 2 /HPF 04/20/2024 9:59 AM EST [facility] Hyaline Casts, Urine 0 0 - 2 /LPF 04/20/2024 9:59 AM EST [facility] Squamous Epithelial Cells, Urine 2 /HPF 04/20/2024 9:59 AM EST [facility] Bacteria, Urine None None /HPF /HPF 04/20/2024 9:59 AM EST [facility] Mucus, Urine Rare /LPF 04/20/2024 9:59 AM EST [facility] Urine Urine specimen collection, clean catch / Unknown Non-Blood Collection / Unknown 04/20/2024 9:23 AM EST 04/20/2024 9:39 AM EST us Alonzo Persaud MD LAB URINE ORDERABLES Final Result [facility] [address] [place] [address], * (ABNORMAL) DNA Antibody (ds) Crithidia IFA w/Reflex (04/20/2024 9:23 AM EST) Only the most recent of2 resultswithin the time period is included. DNA Ab(ds) Crithidia, IFA Positive(A ) Negative 04/23/2024 12:26 PM EST [facility]ILLIP LAO ([place]) Blood Structure of peripheral vein / Unknown Venipuncture / Unknown 04/20/2024 9:23 AM EST 04/20/2024 9:38 AM EST Wilfredo ROSARIO - 04/23/2024 12:26 PM EST [facility] Received Date: us Alonzo Persaud MD LAB BLOOD ORDERABLES Final Result PHILLIP ROSARIO [address] [place] [address] 3rd Floor, [address] [facility] [place] [address], [employer] TASHIA (GIMENEZ) [address] [place] [address], [place] * Procalcitonin (04/20/2024 9:23 AM EST) Procalcitonin <0.20 <0.20 ng/mL 04/22/2024 2:53 PM EST [id number] Comment: Verified by repeat analysis. Procalcitonin levels above 2.00 ng/mL on the first day of ICU admission represent a high risk for progression to severe sepsis and/or septic shock. Procalcitonin Comment See Comments 04/22/2024 2:53 PM EST [email or web address] [email or web address] Comment: Interpretation Guidelines Diagnosis of systemic [...] 9:23 AM EST 04/20/2024 9:38 AM EST Wilfredo ROSARIO - 04/22/2024 2:53 PM EST [facility] Received Date: us Alonzo Persaud MD LAB BLOOD ORDERABLES Final Result PHILLIP [facility]ARIO [address] [facility] 3rd Floor, [address] [place] [address], [place] [phone] [employer] [address] [place] [address], [place] [phone] * (ABNORMAL) CBC Auto Differential (04/20/2024 9:23 AM EST) Only the most recent of2 resultswithin the time period is included. WBC 12.4(H) 3.8 - 10.8 10*3/uL 04/20/2024 9:47 AM [facility] RBC 4.34 3.80 - 5.10 10*6/uL 04/20/2024 9:47 AM [facility] Hemoglobin 12.3 11.7 - 15.5 g/dL 04/20/2024 9:47 AM [facility] Hematocrit 39.1 35.0 - 45.0 % 04/20/2024 9:47 AM [facility] MCV 90.1 80.0 - 100.0 fL 04/20/2024 9:47 AM [facility] MCH 28.3 27.0 - 33.0 pg 04/20/2024 9:47 AM [facility] MCHC 31.5(L) 32.0 - 36.0 g/dL 04/20/2024 9:47 AM [facility] RDW 13.4 11.0 - 15.0 % 04/20/2024 9:47 AM [facility] Platelets 351 140 - 400 10*3/uL 04/20/2024 9:47 AM [facility] MPV 9.4 7.5 - 12.5 fL 04/20/2024 9:47 AM [facility] Neutrophil % 88.3 % 04/20/2024 9:47 AM [facility] Immature Grans % 1.1(H) 0.0 - 0.9 % 04/20/2024 9:47 AM [facility] Lymphocyte % 6.1 % 04/20/2024 9:47 AM [facility] Monocyte % 4.1 % 04/20/2024 9:47 AM [facility] Eosinophil % 0.2 % 04/20/2024 9:47 AM [facility] Basophil % 0.2 % 04/20/2024 9:47 AM [facility] Neutrophil # 10.92(H) 1.50 - 7.80 10*3/uL 04/20/2024 9:47 AM [facility] Immature Grans # 0.14(H) <=0.03 10*3/uL 04/20/2024 9:47 AM [facility] Lymphocyte # 0.80(L) 0.85 - 3.90 10*3/uL 04/20/2024 9:47 AM [facility] Monocyte # 0.50 0.20 - 0.95 10*3/uL 04/20/2024 9:47 AM [facility] Eosinophil # <0.03 0.02 - 0.50 10*3/uL 04/20/2024 9:47 AM [facility] Basophil # <0.03 0.00 - 0.20 10*3/uL 04/20/2024 9:47 AM [facility] nRBC % 0.0 /100 WBCs 04/20/2024 9:47 AM [facility] nRBC # <0.01 <0.01 10*3/uL 04/20/2024 9:47 AM EST [facility] Blood Structure of peripheral vein / Unknown Venipuncture / Unknown 04/20/2024 9:23 AM EST 04/20/2024 9:38 AM EST Alonzo Persaud MD LAB BLOOD ORDERABLES Final Result Performing Organization Address [facility] Co de Phone Number [facility] [address] [place] [address], * Microalbumin, Random Urine with Creatinine (04/20/2024 9:23 AM EST) Only the most recent of2 resultswithin the time period is included. Pathologist [facility] Microalbumin, Urine <2.0 mg/dL 04/20/2024 12:[address] PM [address] [facility] Creatinine, Urine 186 15 - 278 mg/dL 04/20/2024 12:17 PM EST [facility] Microalb/Creat Ratio, Random Urine 04/20/2024 12:17 PM EST [facility] Comment: < 1.0 mcg/mgCr Microalbumin Reference Range: Normal ? <30 mcg/mg Creatinine Microalbuminuria ? 30-300 mcg/mg Creatinine Clinical Albuminuria >300 mcg/mg Creatinine Reference: ADA Guideline. Diabetes Care. 2004;27 (suppl 1) Urine Voided urine specimen / Unknown Non-Blood Collection / Unknown 04/20/2024 9:23 AM EST 04/20/2024 9:39 AM EST Alonzo Persaud MD LAB URINE ORDERABLES Final Result Performing Organization Address City/[facility]/ZIP Co de Phone Number [facility] [address] [place] [address], [facility] [address] [place] [address], * (ABNORMAL) DNA Antibody, Double-Stranded (04/20/2024 9:23 AM EST) Only the most recent of2 resultswithin the time period is included. Pathologist [facility] DNA (Ds) Antibody 7(H) IU/mL 025 9:50 PM EST [employer] Comment: ? IU/mL ? Interpretation ? < or = 4 ?Negative ? 5-9 ? Indeterminate ? > or = 10 ?? Positive Blood Structure of peripheral vein / Unknown Venipuncture / Unknown 04/20/2024 9:23 AM EST 04/20/2024 9:38 AM EST Narrative [facility] [place] - 04/21/2024 9:50 PM EST [facility] Received Date: Alonzo Persaud MD LAB BLOOD ORDERABLES Final Result Performing Organization Address [facility] Phone Number [facility] [address], [place] [address], [place] [phone] [employer] [facility] [address], [place] [address], [place] [phone] * Sedimentation Rate (04/20/2024 9:23 AM EST) Only the most recent of2 resultswithin the time period is included. [facility] Sed Rate 23 <30 mm/Hr mm/Hr 04/20/2024 10:04 AM EST [facility] Blood Structure of peripheral vein / Unknown Venipuncture / Unknown 04/20/2024 9:23 AM EST 04/20/2024 9:38 AM EST Alonzo Persaud MD LAB BLOOD ORDERABLES Final Result [facility] [address] [place] [address], [place] * Complement C3 (04/20/2024 9:23 AM EST) Only the most recent of2 resultswithin the time period is included. Complement Component C3C 101 83 - 193 mg/dL 04/21/2024 4:22 AM EST [employer] [facility] Blood Structure of peripheral vein / Unknown Venipuncture / Unknown 04/20/2024 9:23 AM EST 04/20/2024 9:38 AM EST Narrative [facility] [place] - 04/21/2024 4:22 AM EST [facility] Received Date: Alonzo Persaud MD LAB BLOOD ORDERABLES Final Result Performing Organization Address City/[facility]/ZIP Co de Phone Number [employer] [place] [address] [facility] 3rd Floor, [place] [address], [place] [phone] [employer] [facility] [address] [facility] [address] [facility], [place] [address], [place] [phone] * Complement C4 (04/20/2024 9:23 AM EST) Only the most recent of2 resultswithin the time period is included. Complement Component C4C 21 15 - 57 mg/dL 04/21/2024 4:22 AM EST [employer] [facility] Blood Structure of peripheral vein / Unknown Venipuncture / Unknown 04/20/2024 9:23 AM EST 04/20/2024 9:38 AM EST Narrative [facility] [place] - 04/21/2024 4:22 AM EST [facility] Received Date: us Alonzo Persaud MD LAB BLOOD ORDERABLES Final Result [employer] [place] [address] [facility] 3rd Floor, [place] [address], [place] [phone] [employer] [facility] [address] [facility] 3rd Floor, [place] [address], [place] [phone] * (ABNORMAL) C-Reactive Protein (04/20/2024 9:23 AM EST) Only the most recent of2 resultswithin the time period is included. C Reactive Protein 10.5(H) <=9.9 mg/L 04/20/2024 10:34 AM EST [facility] Blood Structure of peripheral vein / Unknown Venipuncture / Unknown 04/20/2024 9:23 AM EST 04/20/2024 9:38 AM EST Alonzo Persaud MD LAB BLOOD ORDERABLES Final Result Performing Organization Address [facility] Co de Phone Number [facility] [address] [place] [phone], * (ABNORMAL) Creatine Kinase (04/20/2024 9:23 AM EST) Only the most recent of2 resultswithin the time period is included. CK 35(L) 38 - 206 U/L 04/20/2024 10:34 AM EST [facility] Blood Structure of peripheral vein / Unknown Venipuncture / Unknown 04/20/2024 9:23 AM EST 04/20/2024 9:38 AM EST Alonzo Persaud MD LAB BLOOD ORDERABLES Final Result Performing Organization Address City/[facility]/ZIP Co de Phone Number [facility] [address] [place] [address], [place] * (ABNORMAL) Comprehensive Metabolic Panel (04/20/2024 9:23 AM EST) Only the most recent of2 resultswithin the time period is included. NA 139 135 - 145 mmol/L 04/20/2024 10:34 AM EST [facility] K 3.8 3.5 - 5.3 mmol/L 04/20/2024 10:34 AM [facility] Cl 105 98 - 107 mmol/L 04/20/2024 10:34 AM [facility] CO2 24 22 - 32 mmol/L 04/20/2024 10:34 AM [facility] Anion Gap 10 5 - 15 04/20/2024 10:34 AM [facility] Glucose 177(H) 65 - 99 mg/dL 04/20/2024 10:34 AM [facility] Creatinine 0.73 0.50 - 1.20 mg/dL 04/20/2024 10:34 AM [facility] Calcium 8.4(L) 8.6 - 10.5 mg/dL 04/20/2024 10:34 AM [facility] Total Protein 6.9 6.0 - 8.0 g/dL 04/20/2024 10:34 AM [facility] Albumin 3.4(L) 3.5 - 5.2 g/dL 04/20/2024 10:34 AM [facility] Bilirubin, Total 0.3 0.2 - 1.2 mg/dL 04/20/2024 10:34 AM [facility] Alkaline Phosphatase 50 35 - 129 U/L 04/20/2024 10:34 AM [facility] AST 14 10 - 40 U/L 04/20/2024 10:34 AM [facility] ALT 11 10 - 40 U/L 04/20/2024 10:34 AM [facility] BUN 24(H) 7 - 23 mg/dL 04/20/2024 10:34 AM [facility] eGFR >90 >=60 mL/min/1. 73m2 04/20/2024 10:34 AM [facility] Comment:The estimated glomer ular filtration rate (eGFR) is calculated using a new formula developed by the NKF-ASN task force to eliminate race-based correction factors. The new formula uses serum/plasma creatinine, age, and gender to determine eGFR. A value below 60mls/min might indicate kidney disease and will be flagged. For additional information, see Yina mccain al, Am J Kidney Dis. 2021;79(2):268- 288, A Unifying Approach for GFR estimation: Recommendations of the NKF-ASN Task Force on Reassessing the Inclusion of Race in Diagnosing Kidney Disease . Globulin, Total 3.5 2.1 - 4.2 g/dL 04/20/2024 10:34 AM EST [facility] A/G Ratio 1.0(L) 1.5 - 3.0 04/20/2024 10:34 AM EST [facility] Blood Structure of peripheral vein / Unknown Venipuncture / Unknown 04/20/2024 9:23 AM EST 04/20/2024 9:38 AM EST Alonzo Persaud MD LAB BLOOD ORDERABLES Final Result [facility] [address] [place] [address], * Interpretation (03/23/2024 4:48 PM EST) FELI Specific Antibody Interpretation See Comments 03/25/2024 12:23 PM EST [employer] [facility] Comment: The presence of these two antibodies [...] EST 03/23/2024 5:31 PM EST Narrative [facility] [place] - 03/25/2024 12:23 PM EST [facility] Received Date: us Alonzo Persaud MD LAB BLOOD ORDERABLES Final Result PHILLIP ROSARIO [address] [facility] 3rd Floor, [place] [address], [employer] [address] [facility] 3rd Floor, [address] [place] [address], * (ABNORMAL) Stage 1 (03/23/2024 4:48 PM EST) DNA (Ds) Antibody 11(H) IU/mL 025 12:23 PM EST [employer] Comment: ? IU/mL ? Interpretation ? < or = 4 ?Negative ? 5-9 ? Indeterminate ? > or = 10 ?? Positive Sm Antibody <1.0 NEG <1.0 NEG AI 03/25/2024 12:23 PM EST [employer] SM/CHIEF ANALYTICS OFFICER Antibody <1.0 NEG <1.0 NEG AI 03/25/2024 12:23 PM EST [employer] CHIEF ANALYTICS OFFICER Antibody <1.0 NEG <1.0 NEG AI 03/25/2024 12:23 PM EST [employer] Chromatin Antibody 3.0 POS(A) <1.0 NEG AI 03/25/2024 12:23 PM EST [employer] Comment: ANTIBODY PREVALENCE IN TIER 1 ? [...] Sjogren's syndrome and 8% polymyositis. ?? Ribonucleoprotein (CHIEF ANALYTICS OFFICER) antibodies are to CHIEF ANALYTICS OFFICER A and/or CHIEF ANALYTICS OFFICER 68kD proteins; antibodies to one or both are present in >80% MCTD, 22% to 48% SLE, 14% systemic sclerosis, 12% Sjogren's and 8% polymyositis. ?? Sm/CHIEF ANALYTICS OFFICER antibodies are directed to epitopes formed in a complex of Sm and CHIEF ANALYTICS OFFICER; antibodies to the Sm/CHIEF ANALYTICS OFFICER complex are present in 54% to 94% MCTD, 30% SLE, 4% systemic sclerosis, and 9% Sjogren's and polymyositis. ?? Sm antibody is present in 20% to 30% SLE, 8% MCTD, 10% polymyositis, 0% systemic sclerosis and 4% Sjogren's syndrome. ?? Double stranded DNA, Chromatin, Ribonucleoprotein, Sm/CHIEF ANALYTICS OFFICER complex and Sm antibodies are present in <2% of normal blood donors. ?? The [place] does not rule out autoimmune disease characterized by other autoantibody specificities such as rheumatoid arthritis, autoimmune hepatitis, primary biliary cirrhosis, autoimmune thyroiditis, Darrel's disease, pernicious anemia, autoimmune neuropathies, vasculitis, celiac disease and bullous disease. Please contact your local [facility] laboratory if you are interested in additional testing. Blood Structure of peripheral vein / Unknown Venipuncture / Unknown 03/23/2024 4:48 PM EST 03/23/2024 5:31 PM EST Narrative [facility] - 03/25/2024 12:23 PM EST [facility] Received Date: us Alonzo Persaud MD LAB BLOOD ORDERABLES Final Result [facility] [address] [facility] 3rd Floor, [place] [address], [place] [phone] [employer] [facility] [address] [facility] 3rd Floor, [place] [address], [place] [phone] * (ABNORMAL) FELI, Titer and Pattern (03/23/2024 4:48 PM EST) FELI Titer 1 1:1280(H) titer 03/30/2024 4:22 PM EST [employer] Comment: ?Reference Range ?<1:40 ?Negative ?1:40-1:80 ?Low Antibody Level ?>1:80 ?Elevated Antibody Level FELI Pattern 1 Nuclear, Homogeneo us(A) 03/30/2024 4:22 PM EST [employer] Comment: Homogeneous pattern is associated with systemic lupus erythematosus (SLE), drug-induced lupus and juvenile idiopathic arthritis. AC-1: Homogeneous International Consensus on FELI Patterns (https://doi.org/10.1515/epdr-0593-0541) Blood Structure of peripheral vein / Unknown Venipuncture / Unknown 03/23/2024 4:48 PM EST 03/23/2024 5:31 PM EST Narrative [facility] [place] - 03/30/2024 4:22 PM EST [facility] Received Date: Alonzo Persaud MD LAB BLOOD ORDERABLES Final Result PHILLIP OXNARD [address], [place] [address], Freeze [employer] [facility] [address], [place] [address], * (ABNORMAL) [place] & Lambda, Free w/Ratio (03/23/2024 4:48 PM EST) [place] Light Chain, Free, Serum 99.6(H) 3.3 - 19.4 mg/L 03/24/2024 3:56 PM EST [employer] Lambda Light Chain, Free, Serum 60.2(H) 5.7 - 26.3 mg/L 03/24/2024 3:56 PM EST Freeze Tag [facility] Coldwater/Lambda Light Chains Free With Ratio 1.65 0.26 - 1.65 03/24/2024 3:56 PM EST [employer] [facility] Comment: Free kappa/lambda ratio in serum of [...] 4:48 PM EST 03/23/2024 5:31 PM EST [facility] - 03/24/2024 3:56 PM EST [facility] Received Date: Alonzo Persaud MD LAB BLOOD ORDERABLES Final Result [facility] [address] [facility] 3rd Floor, [place] [address], fundfindr [facility] [address] [facility] 3rd Floor, [place] [address], * (ABNORMAL) Protein Electrophoresis w/Reflex to Immunofixation, Serum (03/23/2024 4:48 PM EST) Protein, Total 6.5 6.1 - 8.1 g/dL 03/25/2024 7:04 AM EST [employer] [facility] Albumin 3.0(L) 3.8 - 4.8 g/dL 03/25/2024 7:04 AM [employer] [facility] Alpha 1 Globulin 0.5(H) 0.2 - 0.3 g/dL 03/25/2024 7:04 AM EST [employer] [facility] Alpha 2 Globulin 0.9 0.5 - 0.9 g/dL 03/25/2024 7:04 AM EST [employer] [facility] Beta 1 Globulin 0.4 0.4 - 0.6 g/dL 03/25/2024 7:04 AM [employer] [facility] Beta 2 Globulin 0.4 0.2 - 0.5 g/dL 03/25/2024 7:04 AM EST [employer] [facility] Gamma Globulin 1.2 0.8 - 1.7 g/dL 03/25/2024 7:04 AM EST [employer] [facility] Interpretation See Comments 03/25/2024 7:04 AM EST [employer] [facility] Comment: Pattern consistent with an acute phase reaction Blood Structure of peripheral vein / Unknown Venipuncture / Unknown 03/23/2024 4:48 PM EST 03/23/2024 5:31 PM EST Narrative [employer] [facility] - 03/25/2024 7:04 AM EST [facility] Received Date: Alonzo Persaud MD LAB BLOOD ORDERABLES Final Result Performing Organization Address City/[facility]/ZIP Co de Phone Number [facility] [address], [place] [address], [place] [phone] [employer]r [facility] [address] [facility] [address] [facility], [place] [address], [place] [phone] * Cyclic Citrullinated Peptide (CCP) Antibody, IgG (03/23/2024 4:48 PM EST) Pathologist [facility] Cyclic Citrullinated Peptide (CCP) Ab (IgG) <16 UNITS 03/25/2024 2:15 PM EST [employer] [facility] Comment: Reference Range Negative: ?<20 Weak Positive: ? 20-39 Moderate Positive: ?? 40-59 Strong Positive: ? >59 Blood Structure of peripheral vein / Unknown Venipuncture / Unknown 03/23/2024 4:48 PM EST 03/23/2024 5:31 PM EST Narrative [facility] [facility] 03/25/2024 2:15 PM EST [facility] Received Date: us Alonzo Persaud MD LAB BLOOD ORDERABLES Final Result Performing Organization Address [facility]/ZIP Co de Phone Number [facility] [address] [facility] 3rd Floor, [place] [address], fund[employer]r [address] 3rd Floor, [address] [facility] [address], * Lyme Antibody Screen w/Reflex to Blot (03/23/2024 4:48 PM EST) Lyme Ab Screen <0.90 index 03/24/2024 11:29 AM EST [employer] [facility] Comment: ? Index ?Interpretation ? ----- ? [...] EST 03/23/2024 5:31 PM EST Narrative [facility] - 03/24/2024 11:29 AM EST [facility] Received Date: us Alonzo Persaud MD LAB BLOOD ORDERABLES Final Result Performing Organization Address [facility]/ZIP Co de Phone Number PHILLIP ROSARIO [address] [facility] [address] [facility], [place] [address], [place] [phone] [employer]findr [facility] [address] [facility] [address] [facility], [place] [address], [place] [phone] * (ABNORMAL) FELI Screen, IFA, w/Reflex to Titer & Pattern (03/23/2024 4:48 PM EST) FELI Screen, IFA POSITIVE (A) NEGATIVE 03/30/2024 4:21 PM EST [employer] Comment: FELI IFA is a first line screen for detecting the presence of up to approximately 150 autoantibodies in various autoimmune diseases. A positive FELI IFA result is suggestive of autoimmune disease and reflexes to titer and pattern. Further laboratory testing may be considered if clinically indicated. For additional information, please refer to http://education.NsGene/faq/OUP598 (This link is being provided for informational/ educational purposes only.) ?? Blood Structure of peripheral vein / Unknown Venipuncture / Unknown 03/23/2024 4:48 PM EST 03/23/2024 5:31 PM EST Narrative PHILLIP ROSARIO - 03/30/2024 4:21 PM EST [facility] Received Date: Alonzo Persaud MD LAB BLOOD ORDERABLES Final Result Performing Organization Address City/[facility]/ZIP Co de Phone Number PHILLIP ROSARIO [address] [facility] [address] [facility], [place] [address], [place] [phone] [employer]findr [facility] [address], [place] [address], [place] [phone] * Urine Culture, Routine (03/23/2024 4:48 PM EST) Pathologist [facility] Culture Mixed genital zachary isolated. These superficial bacteria are not indicative of a urinary tract infection. No further organism identification is warranted on this specimen. 03/24/2024 5:21 PM EST Freeze Tag [facility] Urine Urine specimen collection, clean catch / Unknown Non-Blood Collection / Unknown 03/23/2024 4:48 PM EST 03/23/2024 6:19 PM EST Narrative i2O Water OXNARD - 03/24/2024 5:21 PM EST [facility] Received Date: MICRO NUMBER: [id number] SPECIMEN QUALITY: Adequate SOURCE: URINE CLEAN CATCH STATUS: FINAL If clinically indicated, recollect clean-catch, mid-stream urine and transfer immediately to Urine Culture Transport Tube. us Alonzo Persaud MD LAB MICROBIOLOGY - GENERAL ORDERABLES Final Result Performing Organization Address City/State/[facility] Co de Phone Number [facility] 200 [facility] [address]rd Floor, [place] [address], [employer]r [facility] [address] [facility] 3rd Floor, [place] [address], [place] [phone] * (ABNORMAL) FELI Specific Antibody w/Reflex to [place] (03/23/2024 4:48 PM EST) FELI Screen, Immunoassay POSITIVE (A) NEGATIVE 03/25/2024 12:23 PM EST [employer] [facility] Comment: A positive FELI Multiplex indicates the presence of detectable antibodies to one or more of the component analytes consisting of double stranded DNA (dsDNA), chromatin, ribonucleoprotein (CHIEF ANALYTICS OFFICER), Mojica/CHIEF ANALYTICS OFFICER (Sm/CHIEF ANALYTICS OFFICER), Mojica (Sm), SS-A, SS-B, Bozena-1, centromere B, Scl-70 and ribosomal P. Further laboratory testing may be considered if clinically indicated. For additional information, please refer to http://education.NsGene/faq/TQG286 (This link is being provided for informational/ educational purposes only.) ?? Blood Structure of peripheral vein / Unknown Venipuncture / Unknown 03/23/2024 4:48 PM EST 03/23/2024 5:31 PM EST Narrative PHILLIP OXNARD - 03/25/2024 12:23 PM EST [facility] Received Date: us Alonzo Persaud MD LAB BLOOD ORDERABLES Final Result PHILLIP OXNARD [address] [place] [address], [place] [address], [place] [phone] [employer]findr [facility] [address] [place] [address], [place] [address], [place] [phone] * (ABNORMAL) Lactate Dehydrogenase (03/23/2024 4:48 PM EST) LDH 285(H) 135 - 225 U/L 03/23/2024 6:41 PM EST [facility] Blood Structure of peripheral vein / Unknown Venipuncture / Unknown 03/23/2024 4:48 PM EST 03/23/2024 5:31 PM EST Alonzo Persaud MD LAB BLOOD ORDERABLES Final Result [facility] [address] [place] [address], [place] * Gamma Glutamyl Transferase (03/23/2024 4:48 PM EST) GGT 35 5 - 61 U/L 03/23/2024 6:09 PM EST [facility] Blood Structure of peripheral vein / Unknown Venipuncture / Unknown 03/23/2024 4:48 PM EST 03/23/2024 5:31 PM EST Alonzo Persaud MD LAB BLOOD ORDERABLES Final Result [facility] [address] [place] [address], [place] * (ABNORMAL) IgA (03/23/2024 4:48 PM EST) Immunoglobulin A 319(H) 47 - 310 mg/dL 03/24/2024 8:01 AM EST [employer] [facility] Blood Structure of peripheral vein / Unknown Venipuncture / Unknown 03/23/2024 4:48 PM EST 03/23/2024 5:31 PM EST Narrative i2O Water OXNARD - 03/24/2024 8:01 AM EST [facility] Received Date: us Alonzo Persaud MD LAB BLOOD ORDERABLES Final Result [facility] [address] [facility] [address] [facility], [place] [address], [place] [phone] fundfindr [facility] [address] [facility] 3rd Floor, [place] [address], [place] [phone] * IgM (03/23/2024 4:48 PM EST) Immunoglobulin M 80 50 - 300 mg/dL 03/24/2024 8:01 AM EST [employer] [facility] Blood Structure of peripheral vein / Unknown Venipuncture / Unknown 03/23/2024 4:48 PM EST 03/23/2024 5:31 PM EST Narrative [facility] - 03/24/2024 8:01 AM EST [facility] Received Date: us Alonzo Persaud MD LAB BLOOD ORDERABLES Final Result [facility] 200 [facility] 3rd Floor, [place] [address], [place] [phone] [employer]findr [facility] [address] [facility] [address] [facility], [place] [address], [place] [phone] * IgG (03/23/2024 4:48 PM EST) IgG, Serum 1448 600 - 1640 mg/dL 03/24/2024 8:01 AM EST [employer] [facility] Blood Structure of peripheral vein / Unknown Venipuncture / Unknown 03/23/2024 4:48 PM EST 03/23/2024 5:31 PM EST Narrative [facility] - 03/24/2024 8:01 AM EST [facility] Received Date: us Alonzo Persaud MD LAB BLOOD ORDERABLES Final Result [facility] [address] [place] [address], [place] [address], [place] [phone] [employer]findr [facility] [address], [place] [address], [place] [phone] * Ferritin (03/23/2024 4:48 PM EST) Ferritin 279.0 11.0 - 306.0 ng/mL 03/23/2024 6:09 PM EST [facility] Blood Structure of peripheral vein / Unknown Venipuncture / Unknown 03/23/2024 4:48 PM EST 03/23/2024 5:31 PM EST Alonzo Persaud MD LAB BLOOD ORDERABLES Final Result [facility] [address] [place] [address], [place] * XR Hips Bilateral 5+ vw [...] obtain the completed interpretation. ? Workstation ID: [id number] Narrative 03/23/2024 6:11 PM EST COMPARISON: None. ?? Resulting Agency Comment [id number] Procedure Note Augusto Buck MD - 03/23/2024 [...] possible to obtain thecompleted interpretation. Workstation ID: [id number] us Alonzo Persaud MD IMG XR PROCEDURES [...] obtain the completed interpretation. ? Workstation ID: [id number] Narrative 03/23/2024 6:11 PM EST COMPARISON: None. ?? Resulting Agency Comment [id number] Procedure Note Augusto Buck MD - 03/23/2024 [...] possible to obtain thecompleted interpretation. Workstation ID: [id number] us Alonzo Persaud MD IMG XR PROCEDURES [...] obtain the completed interpretation. ? Workstation ID: [id number] Narrative 03/23/2024 6:11 PM EST COMPARISON: None. ?? Resulting Agency Comment [id number] Procedure Note Augusto Buck MD - 03/23/2024 [...] possible to obtain thecompleted interpretation. Workstation ID: [id number] us Alonzo Persaud MD IMG XR PROCEDURES [...] obtain the completed interpretation. ? Workstation ID: [id number] Narrative 03/23/2024 6:11 PM EST COMPARISON: None. ?? Resulting Agency Comment [id number] Procedure Note Augusto Buck MD - 03/23/2024 [...] possible to obtain thecompleted interpretation. Workstation ID: [id number] us Alonzo Persaud MD IMG XR PROCEDURES Final Re sult * Hepatitis C Antibody w/Reflex to HCV RNA, Quantitative PCR (06/04/2022 5:43 PM EDT) Hepatitis C Antibody NON-REACT BETO NON-REACT BETO 06/05/2022 3:44 AM EDT [employer] Signal To Cut-Off 0.02 <1.00 06/05/2022 3:44 AM EDT [employer] Comment: HCV antibody was non-reactive. There is no laboratory evidence of HCV infection. In most cases, no further action is required. However, if recent HCV exposure is suspected, a test for HCV RNA (test code 03208) is suggested. For additional information please refer to http://education.Audioair/faq/JYY49d6 (This link is being provided for informational/ educational purposes only.) Blood Structure of peripheral vein / Unknown Venipuncture / Unknown 06/04/2022 5:43 PM EDT 06/04/2022 6:08 PM EDT Narrative [facility] - 06/05/2022 3:44 AM EDT [facility] Received Date: Alonzo Persaud MD LAB BLOOD ORDERABLES Final Result [facility] [address] [facility] [address]rd Floor, [place] [address], Free[employer] [facility] [address] [facility] 3rd [address], [place] [address], from Last 3 Months or Most Recently Relevant to Health Maintenance Insurance [facility] Care Teams Car Hop Relationship Specialty Start Date End Date WylieCristian Cook MD [address] [place] [address] PCP - General 06/04/22
--- OUTSIDE RECORDS SUMMARY | 2024-05-25 12:01 | XMS_ITS | Clinical Summary ---
Author Organization [facility] Address [address] [place] [address] Care Team Providers Care Dragger Out Name Role Phone Cristian Cahcon MD Primary Care Prov ider Allergies Active [...] (PLAQUENIL) 200 mg tablet TOME ОЛЕГ TABLETA DO D 2 Active LORazepam (ATIVAN) 0.5 mg [...] Type Department Care Team Description 04/21/2024 Telephone [facility] 4th floor Cardiology Medicine [address] [place] [phone] Communications Executive: Mary Arriaga Telephone Intake, Staff PAC Form/Letter/Record s Request 04/20/2024 9:00 AM EST Follow-Up [facility] Rheumatology Clinic [address] [place] [address] Communications Executive: Alonzo Baez MD FELI positive (Primary Dx); Arthralgia, unspecified joint; Chest pain, unspecified type; Moderate persistent asthma, unspecified whether complicated 04/08/2024 Telephone [facility] Rheumatology [facility] [address] [place] [phone] Communications Executive: Zaida Rust Telephone Intake, Staff PAC Sick/Symptoms 03/30/2024 Telephone [facility] [address] [place] [address] [phone] Communications Executive: Alonzo Baez MD PAC Patient Request Call Back; PAC Clinical Questions 03/27/2024 Telephone [facility] Rheumatology [address] [place] [phone] Communications Executive: Alonzo Caputo MD 03/25/2024 Telephone [facility] Rheumatology [address] [place] [address] [phone] Communications Executive: Alonzo Caputo MD 03/24/2024 Documentation [facility] Rheumatology [address] [place] [phone] Communications Executive: Alonzo Caputo MD 03/24/2024 Telephone [facility] Rheumatology [address] [place] [phone] Communications Executive: Alonzo Caputo MD 03/23/2024 4:00 PM EST - 03/23/2024 11:59 PM EST Hospital Encounter [facility] XRay [address] [place] [phone] Alonzo Persaud MD Chronic pain of both shoulders; Bilateral hip pain; Neck pain Discharge Disposition: Home or Self Care () 03/23/2024 3:20 PM EST Office Visit [facility] [address] [place] [address] [phone] Communications Executive: Alonzo Baez MD Chronic pain of both shoulders (Primary Dx); Bilateral hip pain; Neck pain 03/22/2024 Telephone [facility] [address] [place] [address] [phone] Communications Executive: Zaida Rust Telephone Intake, Staff PAC Provider Requested Call Back Dr Persaud 03/22/2024 Telephone [facility] Endocrinology Clinic [address] [place] [phone] Communications Executive: Alysha Rmoan Telephone Intake, Staff 03/17/2024 Refill [facility] [address] [place] [phone] Communications Executive: Alonzo Baez MD 03/05/2024 Refill [facility] [address] [place] [address] [phone] Communications Executive: Alonzo Baez MD from Last 3 Months Family History Medical [...] Description 06/01/2024 9:00 AM EDT Office Visit [facility] Building 4th floor Cardiology Medicine [address] [place] [address] [phone] Communications Executive: Heaml Fritz MD [address] [place] [address] [phone] 08/02/2024 1:30 PM EDT Follow-Up [facility] Rheum Dermatology Clinic [address] [place] [address] Communications Executive: Morales Ramsey MD [address] [place] [phone] 08/16/2024 2:00 PM EDT Office Visit [facility] [address] [place] [address] [phone] Communications Executive: Dennis Laguna MD [address] [place] [address] [phone] Scheduled Procedures Name Priority Associated Diagnoses Date/Ti [...] Additional history exists Influenza Vaccine (#1) 2023 3, 01/04/2022, 02/12/2021, Additional history exists Alcohol/Substance Use Screening 03/02/2024 Depression Screening and Follow-Up 03/02/2024 Social Drivers of Health Giselle ual Screening 03/02/2024 Mammogram 05/20/2024 05/20/2022, 03/2 03/2022, 05/20/2022, Additional history exists Colon Cancer Screening 11/17/2024 FOBT / Fit Test 11/17/2024 11/18/2023 Basic Metabolic Panel 04/20/2025 04/20/2024 , 04/14/2024, 03/23/2024, Additional history exists RSV Vaccine (60+ years old a nd patients) (1 - 1-dose 75+ series) 07/20/2043 HIV Screening Completed 09/29/2013 Hepatitis C Screening Completed 06/04/2022 Procedures * Due to [place] state law, this organization might not be [...] AM EST FELI positive Arthralgia, unspecified joint [id number] STAT 04/20/19 9:23 AM EST EFLI positive Arthralgia, unspecified joint FELI, TITER AND [...] QUANTITATIVE PCR Routine 06/04/2022 5:43 PM EDT FLEI positive from Last 3 Months or Most Recently Relevant to Health Maintenance Results * Due to [place] state law, this organization might not be sharing negative HIV tests. * Drake Top, Urine (04/20/2024 9:23 AM EST) Only the most recent of2 resultswithin the time period is included. Pathologist [facility] Extra Tube Hold for add-ons. 04/20/2024 2:05 PM EST [facility] Comment:Auto resulted. Urine Urine specimen collection, clean catch / Unknown Non-Blood Collection / Unknown 04/20/2024 9:23 AM EST 04/20/2024 9:39 AM EST us Alonoz Persaud MD LAB URINE ORDERABLES Final Result [facility] [address] [place] [phone], * (ABNORMAL) DNA AB(DS) Crithidia Titer (04/20/2024 [...] BLOOD ORDERABLES Final Result PHILLIP ROSARIO [address] [facility] 3rd Floor, [address] [place] [address], [place] [phone] [employer] TASHIA (GIMENEZ) [address] [place] [address], [place] * (ABNORMAL) Urinalysis W/Reflex to Microscopic & Culture (04/20/2024 9:23 AM EST) Only the most recent of2 resultswithin the time period is included. Color, Urine Yellow Colorless, Light Yellow, Yellow, Dark Yellow 04/20/2024 9:59 AM [facility] Clarity, Urine Clear Clear 04/20/2024 9:59 AM [facility] Specific [place], Urine 1.024 1.005 - 1.030 04/20/2024 9:59 AM [facility] pH, Urine 5.0 4.6 - 8.0 04/20/2024 9:59 AM [facility] Protein, Urine 1+(A) Negative 04/20/2024 9:59 AM EST [facility] Glucose, Urine Negative Negative 04/20/2024 9:59 AM [facility] Ketones, Urine Negative Negative 04/20/2024 9:59 AM [facility] Bilirubin, Urine Negative Negative 04/20/2024 9:59 AM [facility] Blood, Urine Negative Negative 04/20/2024 9:59 AM [facility] Nitrite, Urine Negative Negative 04/20/2024 9:59 AM [facility] Urobilinogen, Urine Normal Normal 04/20/2024 9:59 AM EST [facility] Leukocyte Esterase, Urine Negative Negative 04/20/2024 9:59 AM EST [facility] WBC, Urine 1 0 - 2 /HPF 04/20/2024 9:59 AM EST [facility] RBC, Urine <1 0 - 2 /HPF 04/20/2024 9:59 AM EST [facility] Hyaline Casts, Urine 0 0 - 2 /LPF 04/20/2024 9:59 AM EST [facility] Squamous Epithelial Cells, Urine 2 /HPF 04/20/2024 9:59 AM EST [facility] Bacteria, Urine None None /HPF /HPF 04/20/2024 9:59 AM EST [facility] Mucus, Urine Rare /LPF 04/20/2024 9:59 AM EST [facility] Urine Urine specimen collection, clean catch / Unknown Non-Blood Collection / Unknown 04/20/2024 9:23 AM EST 04/20/2024 9:39 AM EST us Alonzo Persaud MD LAB URINE ORDERABLES Final Result [facility] [address] [place] [address], * (ABNORMAL) DNA Antibody (ds) Crithidia IFA w/Reflex (04/20/2024 9:23 AM EST) Only the most recent of2 resultswithin the time period is included. DNA Ab(ds) Crithidia, IFA Positive(A ) Negative 04/23/2024 12:26 PM EST PHILLIP LAO (PER[facility]LL) Blood Structure of peripheral vein / Unknown Venipuncture / Unknown 04/20/2024 9:23 AM EST 04/20/2024 9:38 AM EST Narrative [facility] - 04/23/2024 12:26 PM EST [facility] Received Date: Alonzo Persaud MD LAB BLOOD ORDERABLES Final Result Performing Organization Address City/[facility]/ZIP Co de Phone Number PHILLIP ROSARIO [address] [facility] [address], [place] [address], [place] [phone] [facility] [employer]) [address] [place] [address], [place] * Procalcitonin (04/20/2024 9:23 AM EST) Procalcitonin <0.20 <0.20 ng/mL 04/22/2024 2:53 PM EST [employer] [id number] Comment: Verified by repeat analysis. Procalcitonin levels above 2.00 ng/mL on the first day of ICU admission represent a high risk for progression to severe sepsis and/or septic shock. Procalcitonin Comment See Comments 04/22/2024 2:53 PM EST [employer] [id number] Comment: Interpretation Guidelines Diagnosis of systemic [...] - 04/22/2024 2:53 PM EST [facility] Received Date:[id number] us Alonzo Persaud MD LAB BLOOD ORDERABLES Final Result Performing Organization Address City/[facility]/ZIP Co de Phone Number PHILLIP ROSARIO [address], [place] [address], [place] [phone] Where I've Been [facility] [address] [place] [address], [place] [phone] * (ABNORMAL) CBC Auto Differential (04/20/2024 9:23 AM EST) Only the most recent of2 resultswithin the time period is included. WBC 12.4(H) 3.8 - 10.8 10*3/uL 04/20/2024 9:47 AM [facility] RBC 4.34 3.80 - 5.10 10*6/uL 04/20/2024 9:47 AM [facility] Hemoglobin 12.3 11.7 - 15.5 g/dL 04/20/2024 9:47 AM [facility] Hematocrit 39.1 35.0 - 45.0 % 04/20/2024 9:47 AM [facility] MCV 90.1 80.0 - 100.0 fL 04/20/2024 9:47 AM [facility] MCH 28.3 27.0 - 33.0 pg 04/20/2024 9:47 AM [facility] MCHC 31.5(L) 32.0 - 36.0 g/dL 04/20/2024 9:47 AM [facility] RDW 13.4 11.0 - 15.0 % 04/20/2024 9:47 AM [facility] Platelets 351 140 - 400 10*3/uL 04/20/2024 9:47 AM [facility] MPV 9.4 7.5 - 12.5 fL 04/20/2024 9:47 AM [facility] Neutrophil % 88.3 % 04/20/2024 9:47 AM [facility] Immature Grans % 1.1(H) 0.0 - 0.9 % 04/20/2024 9:47 AM EST [facility] Lymphocyte % 6.1 % 04/20/2024 9:47 AM EST [facility] Monocyte % 4.1 % 04/20/2024 9:47 AM EST [facility] Eosinophil % 0.2 % 04/20/2024 9:47 AM EST [facility] Basophil % 0.2 % 04/20/2024 9:47 AM [facility] Neutrophil # 10.92(H) 1.50 - 7.80 10*3/uL 04/20/2024 9:47 AM EST [facility] Immature Grans # 0.14(H) <=0.03 10*3/uL 04/20/2024 9:47 AM EST [facility] Lymphocyte # 0.80(L) 0.85 - 3.90 10*3/uL 04/20/2024 9:47 AM EST [facility] Monocyte # 0.50 0.20 - 0.95 10*3/uL 04/20/2024 9:47 AM EST [facility] Eosinophil # <0.03 0.02 - 0.50 10*3/uL 04/20/2024 9:47 AM EST [facility] Basophil # <0.03 0.00 - 0.20 10*3/uL 04/20/2024 9:47 AM [facility] nRBC % 0.0 /100 WBCs 04/20/2024 9:47 AM [facility] nRBC # <0.01 <0.01 10*3/uL 04/20/2024 9:47 AM [facility] Blood Structure of peripheral vein / Unknown Venipuncture / Unknown 04/20/2024 9:23 AM EST 04/20/2024 9:38 AM EST Alonzo Persaud MD LAB BLOOD ORDERABLES Final Result Performing Organization Address [facility] de Phone Number [facility] [address] [place] [address], * Microalbumin, Random Urine with Creatinine (04/20/2024 9:23 AM EST) Only the most recent of2 resultswithin the time period is included. Microalbumin, Urine <2.0 mg/dL 04/20/2024 12:17 PM EST [facility] Creatinine, Urine 186 15 - 278 mg/dL 04/20/2024 12:17 PM EST [facility] Microalb/Creat Ratio, Random Urine 04/20/2024 12:17 PM EST [facility] Comment: < 1.0 mcg/mgCr Microalbumin Reference Range: Normal ? <30 mcg/mg Creatinine Microalbuminuria ? 30-300 mcg/mg Creatinine Clinical Albuminuria >300 mcg/mg Creatinine Reference: ADA Guideline. Diabetes Care. 2004;27 (suppl 1) Urine Voided urine specimen / Unknown Non-Blood Collection / Unknown 04/20/2024 9:23 AM EST 04/20/2024 9:39 AM EST Alonzo Persaud MD LAB URINE ORDERABLES Final Result Performing Organization Address [facility] Co de Phone Number [facility] [address] [place] [address], [facility] [address] [place] [address], * (ABNORMAL) DNA Antibody, Double-Stranded (04/20/2024 9:23 AM EST) Only the most recent of2 resultswithin the time period is included. DNA (Ds) Antibody 7(H) IU/mL 025 9:50 PM EST [employer] Comment: ? IU/mL ? Interpretation ? < or = 4 ?Negative ? 5-9 ? Indeterminate ? > or = 10 ?? Positive Blood Structure of peripheral vein / Unknown Venipuncture / Unknown 04/20/2024 9:23 AM EST 04/20/2024 9:38 AM EST Narrative [facility] - 04/21/2024 9:50 PM EST [facility] Received Date: Alonzo Persaud MD LAB BLOOD ORDERABLES Final Result Performing Organization Address [facility] de Phone Number [facility] [address] [facility] 3rd Floor, [place] [address], [place] [phone] Where I've Been [facility] [address] [facility] 3rd Floor, [place] [address], [place] [phone] * Sedimentation Rate (04/20/2024 9:23 AM EST) Only the most recent of2 resultswithin the time period is included. Sed Rate 23 <30 mm/Hr mm/Hr 04/20/2024 10:04 AM EST [facility] Blood Structure of peripheral vein / Unknown Venipuncture / Unknown 04/20/2024 9:23 AM EST 04/20/2024 9:38 AM EST Alonzo Persaud MD LAB BLOOD ORDERABLES Final Result Performing Organization Address City/[facility] Co de Phone Number [facility] [address] [place] [address], * Complement C3 (04/20/2024 9:23 AM EST) Only the most recent of2 resultswithin the time period is included. Complement Component C3C 101 83 - 193 mg/dL 04/21/2024 4:22 AM EST Where I've Been [facility] Blood Structure of peripheral vein / Unknown Venipuncture / Unknown 04/20/2024 9:23 AM EST 04/20/2024 9:38 AM EST Narrative [facility] - 04/21/2024 4:22 AM EST [facility] Received Date: us Alonzo Persaud MD LAB BLOOD ORDERABLES Final Result [employer] AYDEN [address], [place] [address], [place] [phone] Where I've Been [facility] [address], [place] [address], [place] [phone] * Complement C4 (04/20/2024 9:23 AM EST) Only the most recent of2 resultswithin the time period is included. Complement Component C4C 21 15 - 57 mg/dL 04/21/2024 4:[address] [facility] Blood Structure of peripheral vein / Unknown Venipuncture / Unknown 04/20/2024 9:23 AM EST 04/20/2024 9:38 AM EST Narrative [facility] - 04/21/2024 4:22 AM EST [facility] Received Date: us Alonzo Persaud MD LAB BLOOD ORDERABLES Final Result Performing Organization Address City/[facility]/ZIP Co de Phone Number [facility] [address] [facility] [address], [place] [address], [place] [phone] [facility] [address], [place] [address], [place] [phone] * (ABNORMAL) C-Reactive Protein (04/20/2024 9:23 AM EST) Only the most recent of2 resultswithin the time period is included. C Reactive Protein 10.5(H) <=9.9 mg/L 04/20/2024 10:34 AM EST [facility] Blood Structure of peripheral vein / Unknown Venipuncture / Unknown 04/20/2024 9:23 AM EST 04/20/2024 9:38 AM EST Alonzo Persaud MD LAB BLOOD ORDERABLES Final Result Performing Organization Address City/[facility] Co de Phone Number [facility] [address] [place] [address], [place] * (ABNORMAL) Creatine Kinase (04/20/2024 9:23 AM EST) Only the most recent of2 resultswithin the time period is included. CK 35(L) 38 - 206 U/L 04/20/2024 10:34 AM EST [facility] Blood Structure of peripheral vein / Unknown Venipuncture / Unknown 04/20/2024 9:23 AM EST 04/20/2024 9:38 AM EST Alonzo Persaud MD LAB BLOOD ORDERABLES Final Result Performing Organization Address City/[facility] Co de Phone Number [facility] [address] [place] [address], [place] * (ABNORMAL) Comprehensive Metabolic Panel (04/20/2024 9:23 AM EST) Only the most recent of2 resultswithin the time period is included. NA 139 135 - 145 mmol/L 04/20/2024 10:34 AM EST [facility] K 3.8 3.5 - 5.3 mmol/L 04/20/2024 10:34 AM EST [facility] Cl 105 98 - 107 mmol/L 04/20/2024 10:34 AM EST [facility] CO2 24 22 - 32 mmol/L 04/20/2024 10:34 AM [facility] Anion Gap 10 5 - 15 04/20/2024 10:34 AM [facility] Glucose 177(H) 65 - 99 mg/dL 04/20/2024 10:34 AM [facility] Creatinine 0.73 0.50 - 1.20 mg/dL 04/20/2024 10:34 AM [facility] Calcium 8.4(L) 8.6 - 10.5 mg/dL 04/20/2024 10:34 AM [facility] Total Protein 6.9 6.0 - 8.0 g/dL 04/20/2024 10:34 AM [facility] Albumin 3.4(L) 3.5 - 5.2 g/dL 04/20/2024 10:34 AM [facility] Bilirubin, Total 0.3 0.2 - 1.2 mg/dL 04/20/2024 10:34 AM [facility] Alkaline Phosphatase 50 35 - 129 U/L 04/20/2024 10:34 AM [facility] AST 14 10 - 40 U/L 04/20/2024 10:34 AM [facility] ALT 11 10 - 40 U/L 04/20/2024 10:34 AM [facility] BUN 24(H) 7 - 23 mg/dL 04/20/2024 10:34 AM [facility] eGFR >90 >=60 mL/min/1. 73m2 04/20/2024 10:34 AM [facility] Comment:The estimated glomer ular [...] - 4.2 g/dL 04/20/2024 10:34 AM EST [facility] A/G Ratio 1.0(L) 1.5 - 3.0 04/20/2024 10:34 AM EST [facility] Blood Structure of peripheral vein / Unknown Venipuncture / Unknown 04/20/2024 9:23 AM EST 04/20/2024 9:38 AM EST Alonzo Persaud MD LAB BLOOD ORDERABLES Final Result Performing Organization Address [facility] Co de Phone Number [facility] [address] [place] [address], * Interpretation (03/23/2024 4:48 PM EST) FELI Specific Antibody Interpretation See Comments 03/25/2024 12:23 PM EST [employer] Comment: The presence of these two antibodies [...] EST 03/23/2024 5:31 PM EST Narrative [facility] - 03/25/2024 12:23 PM EST [facility] Received Date: Alonzo Persaud MD LAB BLOOD ORDERABLES Final Result Performing Organization Address City/[facility]/ZIP Co de Phone Number [facility] [address], [place] [address], [place] [phone] [employer] [address] [place] [address], [place] [address], * (ABNORMAL) Stage 1 (03/23/2024 4:48 PM EST) DNA (Ds) Antibody 11(H) IU/mL 025 12:23 PM EST [employer] Comment: ? IU/mL ? Interpretation ? < or = 4 ?Negative ? 5-9 ? Indeterminate ? > or = 10 ?? Positive Sm Antibody <1.0 NEG <1.0 NEG AI 03/25/2024 12:23 PM EST [employer] SM/GRAIN UNLOADER MACHINE Antibody <1.0 NEG <1.0 NEG 03/25/2024 12:23 PM EST [employer] GRAIN UNLOADER MACHINE Antibody <1.0 NEG <1.0 NEG 03/25/2024 12:23 PM EST [employer] Chromatin Antibody 3.0 POS(A) <1.0 NEG AI 03/25/2024 12:23 PM [employer] Comment: ANTIBODY PREVALENCE IN TIER 1 ? [...] Sjogren's syndrome and 8% polymyositis. ?? Ribonucleoprotein (GRAIN UNLOADER MACHINE) antibodies are to GRAIN UNLOADER MACHINE A and/or GRAIN UNLOADER MACHINE 68kD proteins; antibodies to one or both are present in >80% MCTD, 22% to 48% SLE, 14% systemic sclerosis, 12% Sjogren's and 8% polymyositis. ?? Sm/GRAIN UNLOADER MACHINE antibodies are directed to epitopes formed in a complex of Sm and GRAIN UNLOADER MACHINE; antibodies to the Sm/GRAIN UNLOADER MACHINE complex are present in 54% to 94% MCTD, 30% SLE, 4% systemic sclerosis, and 9% Sjogren's and polymyositis. ?? Sm antibody is present in 20% to 30% SLE, 8% MCTD, 10% polymyositis, 0% systemic sclerosis and 4% Sjogren's syndrome. ?? Double stranded DNA, Chromatin, Ribonucleoprotein, Sm/GRAIN UNLOADER MACHINE complex and Sm antibodies are present in <2% of normal blood donors. ?? The [place] does not rule out autoimmune disease characterized by other autoantibody specificities such as rheumatoid arthritis, autoimmune hepatitis, primary biliary cirrhosis, autoimmune thyroiditis, Darrel's disease, pernicious anemia, autoimmune neuropathies, vasculitis, celiac disease and bullous disease. Please contact your local [facility] laboratory if you are interested in additional testing. Blood Structure of peripheral vein / Unknown Venipuncture / Unknown 03/23/2024 4:48 PM EST 03/23/2024 5:31 PM EST Narrative [facility] - 03/25/2024 12:23 PM EST [facility] Received Date: Alonzo Persaud MD LAB BLOOD ORDERABLES Final Result [facility] [address] [facility] [address]rd [address], [place] [address], [facility] [address] [facility] [address]rd [address], [place] [address], * (ABNORMAL) FELI, Titer and Pattern (03/23/2024 4:48 PM EST) Pathologist [facility] FELI Titer 1 1:1280(H) titer 03/30/2024 4:22 PM EST [employer] Comment: ?Reference Range ?<1:40 ?Negative ?1:40-1:80 ?Low Antibody Level ?>1:80 ?Elevated Antibody Level FELI Pattern 1 Nuclear, Homogeneo (A) 03/30/2024 4:[address] [facility] Comment: Homogeneous pattern is associated with systemic lupus erythematosus (SLE), drug-induced lupus and juvenile idiopathic arthritis. AC-1: Homogeneous International Consensus on FELI Patterns (https://doi.org/10.1515/hsfw-7038-0684) Blood Structure of peripheral vein / Unknown Venipuncture / Unknown 03/23/2024 4:48 PM EST 03/23/2024 5:31 PM EST Narrative [facility] 03/30/2024 4:22 PM EST [facility] Received Date: Alonzo Persaud MD LAB BLOOD ORDERABLES Final Result [facility] [address] [facility] 3rd Floor, [place] [address], [facility] [address] [facility] 3rd Floor, [place] [address], * (ABNORMAL) [place] & Lambda, Free w/Ratio (03/23/2024 4:48 PM EST) [place] Light Chain, Free, Serum 99.6(H) 3.3 - 19.4 mg/L 03/24/2024 3:[address] Lambda Light Chain, Free, Serum 60.2(H) 5.7 - 26.3 mg/L 03/24/2024 3:[address] Coalfield/Lambda Light Chains Free With Ratio 1.65 0.26 - 1.65 03/24/2024 3:[address] Comment: Free kappa/lambda ratio in serum [...] EST 03/23/2024 5:31 PM EST Narrative [facility] - 03/24/2024 3:56 PM EST [facility] Received Date: Alonzo Persaud MD LAB BLOOD ORDERABLES Final Result [facility] [address] [facility] [address], [place] [address], Where I[facility] Been [facility] [address], [place] [address], * (ABNORMAL) Protein Electrophoresis w/Reflex to Immunofixation, Serum (03/23/2024 4:48 PM EST) Protein, Total 6.5 6.1 - 8.1 g/dL 03/25/2024 7:04 AM EST Where I[facility] Been [facility] Albumin 3.0(L) 3.8 - 4.8 g/dL 03/25/2024 7:04 AM EST Where [facility]en [facility] Alpha 1 Globulin 0.5(H) 0.2 - 0.3 g/dL 03/25/2024 7:04 AM EST [facility] Alpha 2 Globulin 0.9 0.5 - 0.9 g/dL 03/25/2024 7:04 AM EST Where [facility] Beta 1 Globulin 0.4 0.4 - 0.6 g/dL 03/25/2024 7:04 AM EST Where [facility] Beta 2 Globulin 0.4 0.2 - 0.5 g/dL 03/25/2024 7:04 AM EST Where [facility]en [facility] Gamma Globulin 1.2 0.8 - 1.7 g/dL 03/25/2024 7:[address] Interpretation See Comments 03/25/2024 7:[address] [facility] Comment: Pattern consistent with an acute phase reaction Blood Structure of peripheral vein / Unknown Venipuncture / Unknown 03/23/2024 4:48 PM EST 03/23/2024 5:31 PM EST Narrative [facility] URVASHILMEGAN - 03/25/2024 7:04 AM EST [facility] Received Date: Alonzo Persaud MD LAB BLOOD ORDERABLES Final Result [facility] [address] [facility] 3rd Floor, [place] [address], [place] [phone] Where I[facility] Been [facility] [address], [place] [address], [place] [phone] * Cyclic Citrullinated Peptide (CCP) Antibody, IgG (03/23/2024 4:48 PM EST) Cyclic Citrullinated Peptide (CCP) Ab (IgG) <16 UNITS 03/25/2024 2:[address] Comment: Reference Range Negative: ?<20 Weak Positive: ? 20-39 Moderate Positive: ?? 40-59 Strong Positive: ? >59 Blood Structure of peripheral vein / Unknown Venipuncture / Unknown 03/23/2024 4:48 PM EST 03/23/2024 5:31 PM EST Narrative [facility] - 03/25/2024 2:15 PM EST [facility] Received Date: Alonzo Persaud MD LAB BLOOD ORDERABLES Final Result [facility] [address] [facility] 3rd Floor, [place] [address], [place] [phone] [facility] [address] [facility] 3rd Floor, [place] [address], [place] [phone] * Lyme Antibody Screen w/Reflex to Blot (03/23/2024 4:48 PM EST) Lyme Ab Screen <0.90 index 03/24/2024 11:29 AM EST Where [facility]en [facility] Comment: ? Index ?Interpretation ? ----- ? [...] BLOOD ORDERABLES Final Result [facility] [address] [facility] [address]rd Floor, [place] [address], [place] [phone] [facility] [address] [place] [address], [place] [phone] * (ABNORMAL) FELI Screen, IFA, w/Reflex to Titer & Pattern (03/23/2024 4:48 PM EST) FELI Screen, IFA POSITIVE (A) NEGATIVE 03/30/2024 4:[address] Comment: FELI IFA is a first line screen for detecting the presence of up to approximately 150 autoantibodies in various autoimmune diseases. A positive FELI IFA result is suggestive of autoimmune disease and reflexes to titer and pattern. Further laboratory testing may be considered if clinically indicated. For additional information, please refer to http://education.Pinoccio/faq/WWN990 (This link is being provided for informational/ educational purposes only.) ?? Blood Structure of peripheral vein / Unknown Venipuncture / Unknown 03/23/2024 4:48 PM EST 03/23/2024 5:31 PM EST Narrative [facility] AYDEN - 03/30/2024 4:21 PM EST [facility] Received Date: Alonzo Persaud MD LAB BLOOD ORDERABLES Final Result [facility] [address] [facility] [address], [place] [address], [place] [phone] [facility] [address], [place] [address], [place] [phone] * Urine Culture, Routine (03/23/2024 4:48 PM EST) Pathologist [facility] Culture Mixed genital zachary isolated. These superficial bacteria are not indicative of a urinary tract infection. No further organism identification is warranted on this specimen. 03/24/2024 5:[address] [facility] Urine Urine specimen collection, clean catch / Unknown Non-Blood Collection / Unknown 03/23/2024 4:48 PM EST 03/23/2024 6:19 PM EST Narrative [facility] - 03/24/2024 5:21 PM EST [facility] Received Date: MICRO NUMBER: [id number] SPECIMEN QUALITY: Adequate SOURCE: URINE CLEAN CATCH STATUS: FINAL If clinically indicated, recollect clean-catch, mid-stream urine and transfer immediately to Urine Culture Transport Tube. us Alonzo Persaud MD LAB MICROBIOLOGY - GENERAL ORDERABLES Final Result [facility] [address], [place] [address], [place] [phone] Where I've Been [facility] [address], [place] [address], [place] [phone] * (ABNORMAL) FELI Specific Antibody w/Reflex to [place] (03/23/2024 4:48 PM EST) FELI Screen, Immunoassay POSITIVE (A) NEGATIVE 03/25/2024 12:23 PM EST Where I[facility] Been [facility] Comment: A positive FELI Multiplex indicates the presence of detectable antibodies to one or more of the component analytes consisting of double stranded DNA (dsDNA), chromatin, ribonucleoprotein (GRAIN UNLOADER MACHINE), Mojica/GRAIN UNLOADER MACHINE (Sm/GRAIN UNLOADER MACHINE), Mojica (Sm), SS-A, SS-B, Bozena-1, centromere B, Scl-70 and ribosomal P. Further laboratory testing may be considered if clinically indicated. For additional information, please refer to http://education.Pinoccio/faq/ZRS608 (This link is being provided for informational/ educational purposes only.) ?? Blood Structure of peripheral vein / Unknown Venipuncture / Unknown 03/23/2024 4:48 PM EST 03/23/2024 5:31 PM EST Narrative [facility] - 03/25/2024 12:23 PM EST [facility] Received Date: us Alonzo Persaud MD LAB BLOOD ORDERABLES Final Result [facility] [address], [place] [address], [place] [phone] Where I've Been [facility] [address], [place] [address], [place] [phone] * (ABNORMAL) Lactate Dehydrogenase (03/23/2024 4:48 PM EST) LDH 285(H) 135 - 225 U/L 03/23/2024 6:41 PM EST [facility] Blood Structure of peripheral vein / Unknown Venipuncture / Unknown 03/23/2024 4:48 PM EST 03/23/2024 5:31 PM EST Alonzo Persaud MD LAB BLOOD ORDERABLES Final Result Performing Organization Address City/[facility]/ZIP Co de Phone Number [facility] [address] [place] [address], [place] * Gamma Glutamyl Transferase (03/23/2024 4:48 PM EST) GGT 35 5 - 61 U/L 03/23/2024 6:09 PM EST [facility] Blood Structure of peripheral vein / Unknown Venipuncture / Unknown 03/23/2024 4:48 PM EST 03/23/2024 5:31 PM EST Alonzo Persaud MD LAB BLOOD ORDERABLES Final Result Performing Organization Address City/[facility]/ZIP Co de Phone Number [facility] [address] [place] [address], [place] * (ABNORMAL) IgA (03/23/2024 4:48 PM EST) Immunoglobulin A 319(H) 47 - 310 mg/dL 03/24/2024 8:[address] Blood Structure of peripheral vein / Unknown Venipuncture / Unknown 03/23/2024 4:48 PM EST 03/23/2024 5:31 PM EST Narrative [facility] - 03/24/2024 8:01 AM EST [facility] Received Date: Alonzo Persaud MD LAB BLOOD ORDERABLES Final Result [facility] [address] [facility] 3rd Floor, [place] [address], [place] [phone] Where I[facility] Been [facility] [address] [facility] 3rd Floor, [place] [address], [place] [phone] * IgM (03/23/2024 4:48 PM EST) Immunoglobulin M 80 50 - 300 mg/dL 03/24/2024 8:01 AM EST Where I[facility] Been [facility] Blood Structure of peripheral vein / Unknown Venipuncture / Unknown 03/23/2024 4:48 PM EST 03/23/2024 5:31 PM EST Narrative [facility] - 03/24/2024 8:01 AM EST [facility] Received Date: Alonzo Persaud MD LAB BLOOD ORDERABLES Final Result Performing Organization Address City/[facility]/ZIP Co de Phone Number [facility] [address] [facility] 3rd Floor, [place] [address], [place] [phone] Where I[facility] Been [facility] [address] [facility] 3rd Floor, [place] [address], [place] [phone] * IgG (03/23/2024 4:48 PM EST) IgG, Serum 1448 600 - 1640 mg/dL 03/24/2024 8:01 AM EST Where I[facility] Been [facility] Blood Structure of peripheral vein / Unknown Venipuncture / Unknown 03/23/2024 4:48 PM EST 03/23/2024 5:31 PM EST Narrative [facility] - 03/24/2024 8:01 AM EST [facility] Received Date: us Alonzo Persaud MD LAB BLOOD ORDERABLES Final Result [facility] [address] [facility] [address] Floor, [place] [address], [place] [phone] Where I[facility] Been [address], [place] [address], [place] [phone] * Ferritin (03/23/2024 4:48 PM EST) Ferritin 279.0 11.0 - 306.0 ng/mL 03/23/2024 6:09 PM EST [facility] Blood Structure of peripheral vein / Unknown Venipuncture / Unknown 03/23/2024 4:48 PM EST 03/23/2024 5:31 PM EST us Alonzo Persaud MD LAB BLOOD ORDERABLES Final Result Performing Organization Address City/State/[facility] Co de Phone Number [facility] [address] [place] [address], [place] * XR Hips Bilateral 5+ vw [...] obtain the completed interpretation. ? Workstation ID: [id number] Narrative 03/23/2024 6:11 PM EST COMPARISON: None. ?? Resulting Agency Comment [id number] Procedure Note Augusto Buck MD - 03/23/2024 [...] possible to obtain thecompleted interpretation. Workstation ID: [id number] us Alonzo Persaud MD IMG XR PROCEDURES [...] obtain the completed interpretation. ? Workstation ID: [id number] Narrative 03/23/2024 6:11 PM EST COMPARISON: None. ?? Resulting Agency Comment [id number] Procedure Note Augusto Buck MD - 03/23/2024 [...] possible to obtain thecompleted interpretation. Workstation ID: [id number] us Alonzo Persaud MD IMG XR PROCEDURES [...] obtain the completed interpretation. ? Workstation ID: [id number] Narrative 03/23/2024 6:11 PM EST COMPARISON: None. ?? Resulting Agency Comment [id number] Procedure Note Augusto Buck MD - 03/23/2024 [...] possible to obtain thecompleted interpretation. Workstation ID: [id number] us Alonzo Persaud MD IMG XR PROCEDURES [...] obtain the completed interpretation. ? Workstation ID: [id number] Narrative 03/23/2024 6:11 PM EST COMPARISON: None. ?? Resulting Agency Comment [id number] Procedure Note Augusto Buck MD - 03/23/2024 [...] possible to obtain thecompleted interpretation. Workstation ID: [id number] us Alonzo Persaud MD IMG XR PROCEDURES Final Re sult * Hepatitis C Antibody w/Reflex to HCV RNA, Quantitative PCR (06/04/2022 5:43 PM EDT) Hepatitis C Antibody NON-REACT BETO NON-REACT BETO 06/05/2022 3:44 AM EDT [facility] Signal To Cut-Off 0.02 <1.00 06/05/2022 3:44 AM EDT [employer] Comment: HCV antibody was non-reactive. There is no laboratory evidence of HCV infection. In most cases, no further action is required. However, if recent HCV exposure is suspected, a test for HCV RNA (test code 74738) is suggested. For additional information please refer to http://education.OmPrompt/faq/HBG03y4 (This link is being provided for informational/ educational purposes only.) Blood Structure of peripheral vein / Unknown Venipuncture / Unknown 06/04/2022 5:43 PM EDT 06/04/2022 6:08 PM EDT Narrative [facility] - 06/05/2022 3:44 AM EDT [facility] Received Date: us Alonzo Persaud MD LAB BLOOD ORDERABLES Final Result [facility] [address], [place] [address], [facility] [address] [facility] 3rd Floor, [place] [address], [place] [phone] from Last 3 Months or Most Recently Relevant to Health Maintenance Insurance [facility] Care Teams Dragger Out Relationship Specialty Start Date End Date Cristian Chacon MD [address] [place] [address] PCP - General 06/04/22
--- OUTSIDE RECORDS SUMMARY | 2024-05-25 12:01 | XMS_ITS | Encounter Summary ---
Author Organization [facility] Address [address] [facility] 7t [place] [address] Care Team Providers Care Security Systems Specialist Name Role Phone Cristian Chacon MD Primary Care Prov ider Encounter Details Date Type Department Care Team (Latest Contact Info) Description 10/18/2020 Abstract [facility] CONVERSIONS Dental, Provider, DDS Social History Tobacco [...] on filedocumented in this encounter Care Teams Security Systems Specialist Relationship Specialty Start Date End Date Cristian Chacon MD [address] [place] [address] PCP - General Internal Medicine 03/17/19 Ivy Payne Asset Protection ProfessionalManager Pool 03/03/23 11/25/23 Ivy Payne Functional Mental Disability TeacherManager Pool 11/26/23 documented as of this encounter
--- OUTSIDE RECORDS SUMMARY | 2024-05-25 12:02 | XMS_ITS | Clinical Summary ---
Author Organization [facility] Address [address] [place] [address] Care Team Providers Care Leisure Studies Professor Name Role Phone Unavailable Primary Care Provider [...]
--- OUTSIDE RECORDS SUMMARY | 2024-05-25 12:02 | XMS_ITS | Encounter Summary ---
Author Organization [employer] Address [address] 7[address] [place] [address] Care Team Providers Care Home Health Care Physician Name Role Phone Cristian Chacon MD Primary Care Prov ider Encounter Details Date Type Department Care Team (Latest Contact Info) Description 05/17/2024 Travel Social History Tobacco Use Types Packs/Day [...] documented as of this encounter Care Teams Home Health Care Physician Relationship Specialty Start Date End Date Cristian Chacon MD [address] [place] [address] PCP - General Internal Medicine 03/17/19 Ivy Payne Apparatus LinemanEmery Wheel Molder 11/26/23 documented as of this encounter
--- OUTSIDE RECORDS SUMMARY | 2024-05-25 12:02 | XMS_ITS | Encounter Summary ---
Author Organization [employer] [facility] Address [address] [facility] 7t [place] [address] Care Team Providers Care Service Technician Name Role Phone Cristian Chacon MD Primary Care Prov ider Reason for Visit * Reason Onset Date Comments Medication Question 09/12/2022 Encounter Details Date Type Department Care Team ([facility] st Contact Info) Description 09/12/2022 Telephone [facility] [address] [place], [place] [phone] Cristian Chacon MD [address] [place] [address] Medication Question Social History Tobacco Use Types [...] EDT TC to pt- Jamee was the tonnage compilation clerk. Pt stated she had not picked up the Benadryl yet for rash itchiness. She will do so. 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 She would like PCP [...] on filedocumented in this encounter Care Teams Service Technician Relationship Specialty Start Date End Date Cristian Chacon MD [address] [place] [address] PCP - General Internal Medicine 03/17/19 Ivy Payne Flask CleanerSocial Work Specialist 03/03/23 11/25/23 Ivy Payne Vermin ExterminatorSocial Work Specialist 11/26/23 documented as of this encounter
--- OUTSIDE RECORDS SUMMARY | 2024-05-25 12:02 | XMS_ITS | Encounter Summary ---
Author Organization [employer] Address [address] [facility] [address] 7t [place] [address] Care Team Providers Care Cover Remover Name Role Phone Cristian Chacon MD Primary Care Prov ider Encounter Details Date Type Department Care Team ([facility] st Contact Info) Description 05/24/2024 Telephone [facility] [address] [place], [place] [phone] Cristian Chacon MD [address] [place] [address] Social History Tobacco Use Types Packs/Day Years [...] encounter Miscellaneous Notes * Telephone Encounter - Flory Ayala RN - 05/24/2024 1:43 PM EDT Walk-in patient. Patient got upset with the ladies at the front end ui developer. RN took patient back and put her in a room. She is upset bc she needs pull-ups and not diapers. (Wrong one was ordered, and missing diagnosis code.) The correct pull- ups were requested and correct ICD-10 code applied and paperwork sent to [facility]. Copies made for patient to picker and packer. Patient also upset bc she never received a blood glucose machine, lancets, or strips. All these things were sent to [facility], but patient states they never received the items. All items re-ordered and sent to [facility] pharmacy per patient request. documented in this encounter Plan of Treatment Not on file documented as of this encounter Visit Diagnoses Diagnosis Type 2 diabetes mellitus without complication, without long-term current use of insulin ([facility]) documented in this encounter Additional Health Concerns Assessment Noted Time PHQ-9 Depression Total Score: 16 024 1:19 PM EDT documented as of this encounter Care Teams Cover Remover Relationship Specialty Start Date End Date Cristian Chacon MD [address] [place] [address] PCP - General Internal Medicine 03/17/19 Ivy Payne Bottle CapperTobacco Sweeper 11/26/23 documented as of this encounter
--- OUTSIDE RECORDS SUMMARY | 2024-05-25 12:02 | XMS_ITS | Encounter Summary ---
Author Organization [employer] Address [address] [place] [address] Care Team Providers Care Forest Fire Officer Name Role Phone Cristian Chacon MD [...] Whole Blood 76 60 - 115 mg/dL [facility] Comment:METER #: [id number] 05/03/2024 5:15 PM EST 05/03/2024 5:51 PM EST Generic External Data Provider LAB BLOOD ORDERAB LES Final Result Performing Organization Address [facility] de Phone Number [facility] [address] [place] [phone] * High Sensitivity Troponin I (05/03/2024 5:08 PM EST) [facility] TROPONIN I HIGH SENSITIVITY 7.4 <3.5 - 17.0 ng/L [facility] Comment:The [place] high sens itivity Troponin-I results should beused in conjunction with other diagnostic information suchas ECG, clinical observations and information, and patientsymptoms to aid in the diagnosis of UT. 05/03/2024 5:08 PM EST 05/03/2024 5:12 PM EST Generic External Data Provider LAB BLOOD ORDERAB LES Final Result Performing Organization Address [facility] Co de Phone Number [facility] [address] [place] [phone] * Prothrombin Time-INR (05/03/2024 5:08 PM EST) Pathologist [facility] Prothrombin Time 11.7 10.9 - 12.4 SEC [facility] INTERNATIONAL NORM RATIO 1.0 0.9 - 1.1 [facility] Comment:INTERNATIONAL NORMAL IZED RATIO (INR) [...] ORDERAB LES Final Result Performing Organization Address [facility] Co de Phone Number [facility] [address] [place] [address] [phone] * SARS-CoV-2 RNA, Influenza A/B, and RSV RNA, Ql NAAT (05/03/2024 11:04 AM EST) Influenza A PCR NEGATIVE Negative [facility] Influenza B PCR NEGATIVE Negative [facility] Resp Syncy Virus RNA Qual PCR NEGATIVE Negative [facility] SARS COV2 PCR NEGATIVE Negative [facility] Comment:All test results mus t [...] use by authorized laboratories.Testing performed on the [employer] GeneXpert utilizingreal-time RT-PCR.All SARS CoV2 and positive influenza A/B results arereported to [facility]. 05/03/2024 11:0 4 AM EST 05/03/2024 11:12 AM EST Generic External Data Provider LAB MICROBIOLOGY - GENERAL ORDERABLES Final Result Performing Organization Address [facility] Co de Phone Number [facility] [address] [place] [phone] * High Sensitivity Troponin I (05/03/2024 11:04 AM EST) Pathologist [facility] TROPONIN I HIGH SENSITIVITY <2.7 <3.5 - 17.0 ng/L [facility] Comment:The [place] high sens itivity Troponin-I results should beused in conjunction with other diagnostic information suchas ECG, clinical observations and information, and patientsymptoms to aid in the diagnosis of UT. 05/03/2024 11:0 4 AM EST 05/03/2024 11:12 AM EST us Generic External Data Provider LAB BLOOD ORDERAB LES Final Result Performing Organization Address [facility] Co de Phone Number [facility] [address] [place] [phone] * B Type Natriuretic Peptide (BNP) (05/03/2024 11:04 AM EST) [facility] B Type Natriuretic Peptide 44 <100 pg/mL [facility] Comment:For those patients w ho are being treated with Natrecor(nesiritide, recombinant BNP), BNP testing should beperformed at least two hours post treatment in order toensure that only endogenous levels of BNP are detected. 05/03/2024 11:0 4 AM EST 05/03/2024 11:12 AM EST us Generic External Data Provider LAB BLOOD ORDERAB LES Final Result Performing Organization Address [facility] Co de Phone Number [facility] [address] [place] [phone] * Lipase (05/03/2024 11:04 AM EST) Pathologist [facility] Lipase 37 8 - 78 U/L [facility] 05/03/2024 11:0 4 AM EST 05/03/2024 11:12 AM EST us Generic External Data Provider LAB BLOOD ORDERAB LES Final Result Performing Organization Address [facility] Co de Phone Number [facility] [address] [place] [address] [phone] * (ABNORMAL) C-reactive Protein (05/03/2024 11:04 AM EST) C Reactive Protein 3.79(H) < or = 0.50 mg/dL [facility] 05/03/2024 11:0 4 AM EST 05/03/2024 11:12 AM EST us Generic External Data Provider LAB BLOOD ORDERAB LES Final Result Performing Organization Address [facility] Co de Phone Number [facility] [address] [place] [phone] * Creatine Kinase, Total (05/03/2024 11:04 AM EST) Creatine Kinase Total 35 26 - 140 U/L [facility] 05/03/2024 11:0 4 AM EST 05/03/2024 11:12 AM EST Generic External Data Provider LAB BLOOD ORDERAB LES Final Result Performing Organization Address [facility] Co de Phone Number [facility] [address] [place] [phone] * Magnesium (05/03/2024 11:04 AM EST) Magnesium 2.1 1.6 - 2.6 mg/dL [facility] 05/03/2024 11:0 4 AM EST 05/03/2024 11:12 AM EST Generic External Data Provider LAB BLOOD ORDERAB LES Final Result Performing Organization Address [facility] Co de Phone Number [facility] [address] [place] [address] [phone] * (ABNORMAL) Basic Metabolic Panel (05/03/2024 11:04 AM EST) Sodium 140 135 - 145 mmol/L [facility] Potassium 3.5 3.3 - 5.1 mmol/L [facility] Chloride 108 96 - 108 mmol/L [facility] Carbon Dioxide 23 22 - 29 mmol/L [facility] Anion Gap 13 12 - 20 [facility] Urea Nitrogen (BUN) 18(H) 9 - 16 mg/dL [facility] Creatinine, Serum 0.70 0.5 - 1.4 mg/dL [facility] Creatinine Clr Calc Pharmacy 91.1 [facility] Comment:Provided height and weight: 152.4 cm,90.718 kg.eGFR (calculated from the MDRD study equation) and eCrCl(calculated from the Cockcroft-Gault equation) are based ondifferent parameters and may not yield comparable results.If eCrCl result is absurd, please check patient'sheight/weight. Estimated Glomerular Filt Rate >60 [facility] Comment:Chronic Kidney Disea se: Estimated GFR < 60 mL/min/1.90y6Csuohk Kidney Disease: Estimated GFR < 15 mL/min/1.73m2 Glucose 179(H) 60 - 115 mg/dL [facility] Calcium 8.6 8.4 - 10.2 mg/dL [facility] 05/03/2024 11:0 4 AM EST 05/03/2024 11:12 AM EST us Generic External Data Provider LAB BLOOD ORDERAB LES Final Result [facility] [address] [place] [phone] * Hepatic Function Panel (05/03/2024 11:04 AM EST) Pathologist [facility] Bilirubin, Total 0.5 0.0 - 1.0 mg/dL [facility] Bilirubin, Direct 0.2 0.0 - 0.5 mg/dL [facility] Aspartate Amino Transferase 14 5 - 31 U/L [facility] Alanine Aminotransferase 13 0 - 31 U/L [facility] Total Protein 7.0 6.5 - 8.0 g/dL [facility] Albumin Level 3.5 3.5 - 5.0 g/dL [facility] Alkaline Phosphatase 54 39 - 117 U/L [facility] 05/03/2024 11:0 4 AM EST 05/03/2024 11:12 AM EST us Generic External Data Provider LAB BLOOD ORDERAB LES Final Result [facility] [address] [place] [phone] * (ABNORMAL) CBC auto differential (05/03/2024 11:04 AM EST) White Blood Count 8.1 4.8 - 10.8 X10*3/uL [facility] Red Blood Count 4.07(L) 4.20 - 5.50 X10*6/uL [facility] Hemoglobin 11.9(L) 12.0 - 16.0 g/dl [facility] Hematocrit 35.8(L) 37.0 - 47.0 % [facility] Mean Corpuscular Volume 88.0 80.0 - 98.0 fL [facility] Mean Corpuscular Hemoglobin 29.2 27.0 - 33.0 pg [facility] Mean Corpuscular HGB Conc 33.2 31.0 - 35.0 g/dl [facility] Red Cell Distribution Width 14.4 11.0 - 16.0 % [facility] Platelet Count 339 160 - 400 X10*3/uL [facility] Mean Platelet Volume 9.3(L) 9.4 - 12.3 fL [facility] Neutrophils Percent Auto 83.7(H) 45 - 73 % [facility] Imm Gran Pct Auto 0.6(H) 0.0 - 0.4 % [facility] Lymphocytes Percent Auto 11.5(L) 20 - 40 % [facility] Monocytes Percent Auto 3.6 2 - 11 % [facility] Eosinophils Percent Auto 0.5 0 - 4 % [facility] Basophils Percent Auto 0.1 0 - 2 % [facility] NRBC Pct Auto 0.0 0.0 - 0.2 /100WBC [facility] Neutrophils Absolute Auto 6.7 2.0 - 8.3 x10*3/uL [facility] Imm Gran Abs Auto 0.05(H) 0.00 - 0.03 X10*3/uL [facility] Lymphocytes Absolute Auto 0.9(L) 1.2 - 4.9 X10*3/uL [facility] Monocytes Absolute Auto 0.3 0.1 - 1.2 X10*3/uL [facility] Eosinophils Absolute Auto 0.0 0.0 - 0.4 X10*3/uL [facility] Basophils Absolute Auto 0.0 0.0 - 0.2 X10*3/uL [facility] NRBC Abs Auto 0.000 0.0 - 0.012 X10*3/uL [facility] 05/03/2024 11:0 4 AM EST 05/03/2024 11:12 AM EST us Generic External Data Provider LAB BLOOD ORDERAB LES Final Result Performing Organization Address City/State/[facility] Co de Phone Number [facility] [address] [place] [phone] * XR Chest 1 View (05/03/2024 10:40 AM EST) Anatomical Region Laterality Modality Chest Radiographic Amanda ging 05/03/2024 10:4 0 AM EST Narrative 05/03/2024 11:39 AM EST ? [facility] ?[address] ?[place] [address] ?XRay Report ? Signed ? Patient: Liriano,Scarlett ?MR#: [id number] ?? [id number] ? : 1970 ?Acct:[id number] ? Age/Sex: 53 / F ?ADM Date: 03/04/25 ? Loc: HO.ED ? Attending Dr: ? Ordering Physician: Dana Montenegro DO ?? Date of Service: 05/03/24 ?? Procedure(s): XR chest 1V ?? Accession Number(s): [id number] ? cc: Cristian Chacon MD; Dana Montenegro [...] DD/ 1040 ? TD/TT: 05/03/24 1100 ? Clinical Nurse Reviewer: MSM ? Procedure Note Makenna Vazquez - 05/03/2024 [place] [address] XRay Report Signed Patient: Scarlett LirianoMR#: [id number] : 1970Acct:[id number] Age/Sex: 53 / FADM Date: 05/03/24 Loc: HO.ED Attending Dr: Ordering Physician: Dana Montenegro DO Date of Service: 05/03/24 Procedure(s): XR chest 1V Accession Number(s): [id number] cc: Cristian Chacon MD; Dana Montenegro DO [...] 05/03/24 1136 DD/ 1040 TD/TT: 05/03/24 1100 Clinical Nurse Reviewer: LEATHA [facility] External Provider IMG XR PROCEDURES Final Result documented in this encounter Visit Diagnoses Not on filedocumented in this encounter Additional Health Concerns Assessment Noted Time PHQ-9 Depression Total Score: 16 12/21/ 024 1:19 PM EDT documented as of this encounter Care Teams Forest Fire Officer Relationship Specialty Start Date End Date Cristian Chacon MD [address] [place] [phone] PCP - General Internal Medicine 03/17/19 Ivy Payne Core DrillerVehicle Detailer 11/26/23 documented as of this encounter
--- OUTSIDE RECORDS SUMMARY | 2024-05-25 12:02 | XMS_ITS | Encounter Summary ---
Author Organization [employer] Address [address] [place] [address] Care Team Providers Care Door To Door Lead Generation Name Role Phone Cristian Chacon MD Primary Care Prov ider Encounter Details Date Type Department Care Team (Late st Contact Info) Description 05/02/2024 Orders Only [facility] External Provider, [facility] Social History Tobacco Use Types Packs/Day [...] EST Narrative 05/03/2024 9:18 AM EST ? [facility] ?[address] ?[place] [address] ? Ultrasound Report ? Signed ? Patient: Scarlett Liriano ?MR#: [id number] ?? 354 ? : 1970 ?Acct:[id number] ? Age/Sex: 53 / F ?ADM Date: 05/02/24 ? Loc: HO.US ? Attending Dr: Gavino Wynne MD ? Ordering Physician: Gavino Wynne MD ?? Date of Service: 05/02/24 ?? Procedure(s): US pelvic and transvaginal ?? Accession Number(s): [id number] ? cc: Saskia Rosas MD; Gavino Wynne [...] ? DD/ 5 ? TD/TT: 05/03/24915 ? Strategy Analyst: ? Procedure Note Donguilleter, Image - 05/03/[address] [address] Ultrasound Report Signed Patient: Scarlett LirianoMR#: [id number] : 1970Acct:[id number] Age/Sex: 53 / FADM Date: 05/02/24 Loc: HO.US Attending Dr: Gavino Wynne MD Ordering Physician: Gavino Wynne MD Date of Service: 05/02/24 Procedure(s): US pelvic and transvaginal Accession Number(s): [id number] cc: Saskia Rosas MD; Gavino Wynne MD [...] in OV> 05/03/24916 DD/ 5 TD/TT: 05/03/24915 Strategy Analyst: us [facility] External Provider IMG US PROCEDURES Final Result documented in this encounter Visit Diagnoses Not on filedocumented in this encounter Additional Health Concerns Assessment Noted Time PHQ-9 Depression Total Score: 16 024 1:19 PM EDT documented as of this encounter Care Teams Door To Door Lead Generation Relationship Specialty Start Date End Date Cristian Chacon MD [address] [place] [phone] PCP - General Internal Medicine 03/17/19 Ivy Payne Lifestyle Block FarmerSanitation Associate 11/26/23 documented as of this encounter
--- OUTSIDE RECORDS SUMMARY | 2024-05-25 12:02 | XMS_ITS | Encounter Summary ---
Author Organization [employer] Address [address] [place] [address] Care Team Providers Care Scientific Software Engineer Name Role Phone Cristian Chacon MD Primary Care Prov ider Encounter Details Date Type Department Care Team (Late st Contact Info) Description 05/10/2024 3:30 PM EDT Office Visit [facility] [address] [place], [place] [phone] Eduarda Villeda MD [address] [place] [address] Other chest pain (Primary Dx); Multiple joint pain; Moderate persistent asthma without complication; Type 2 diabetes mellitus without complication, without long-term current use of insulin ([facility]); Fall, initial encounter Social History [...] hospital discharge follow-up. She was evaluated at [facility] on May 04, 2024 for generalized body aches. She was also complaining of lung pain, burning chest, and whole body aches. She has been on prednisone not antibiotics. She was evaluated by knitting machine operator automatic. Hadan EKG, basic labs, chest x-ray, inflammatory [...] ОЛЕГ TABLETA TODOS [place] EN LA YOAKUMANA 90 tablet 3 Acetaminophen Extra Strength 500 [...] ITCHING. 30 capsule0 Blood Glucose Monitoring Suppl ([employer]) w/Device kit 1 Device in the [...] today Has a follow-up appointment with her crematorium operator tomorrow to keep Orders: - ECG 12 lead Multiple joint pain Management deferred to rheumatology Moderate persistent asthma without complication - fluticasone-salmeterol (Advair HFA) 230-21 MCG/ACT inhaler; Inhale 2 puffs in the morning and at bedtime. Type 2 diabetes mellitus without complication, without long-term current use of insulin ([facility]) Comments: A1c at goal No [...] documented in this encounter Plan of Treatment Scheduled Orders Name Type Priority Associated Diagnoses Orde r Schedule POCT Glucose Point of Care Testing Routine Type 2 diabetes mellitus without complication, without long-term current use of insulin ([facility]) Ordered: 05/10/2024 POCT HGB A1C Point of Care Testing Routine Type 2 diabetes mellitus without complication, without long-term current use of insulin ([facility]) Ordered: 05/10/2024 documented as of this encounter Procedures Procedure Name Priority Date/Time Associated Diagnosis Comments ECG 12-LEAD Routine 05/10/2024 4:51 PM EDT Other chest pain Fall, initial encounter documented in this encounter Results * ECG 12 lead (05/10/2024 4:51 PM EDT) Eduarda Parkinson MD - 05/10/2024 4:51 PM EDT Heart rate 92 bpm. ??Odon VIII degrees. ??Normal sinus rhythm. ??No sign [...] complication, without long-term current use of insulin ([facility]) Fall, initial encounter documented in this encounter Additional Health Concerns Assessment Noted Time PHQ-9 Depression Total Score: 16 024 1:19 PM EDT documented as of this encounter Care Teams Scientific Software Engineer Relationship Specialty Start Date End Date Cristian Chacon MD [address] [place] [address] PCP - General Internal Medicine 03/17/19 Ivy Payne Dinking Machine OperatorColor Weigher 11/26/23 documented as of this encounter
--- OUTSIDE RECORDS SUMMARY | 2024-05-25 12:02 | XMS_ITS | Encounter Summary ---
Author Organization [employer] Address [address] [place] [address] Care Team Providers Care Bolt Loader Name Role Phone Cristian Chacon MD Primary Care Prov ider Reason for Visit * Reason Comments Care Coordination Outreach Encounter Details Date Type Department Care Team (Latest Contact Info) Description 04/27/2024 Patient Outreach [facility] [address] [place], [place] [phone] Cristian Chacon MD [address] [place] [address] Care Coordination (Outreach) Social History Tobacco Use [...] at this time. LVM introducing herself from [facility] CM Department, reminding patient of initial assessment appt via telephone on 04/27/24 @ 1:00 PM with [facility] Adult Complex Care program services. Requested call [...] documented as of this encounter Care Teams Bolt Loader Relationship Specialty Start Date End Date Cristian Chacon MD [address] [place] [address] PCP - General Internal Medicine 03/17/19 Ivy Payne Yard SpotterSash Maker 11/26/23 documented as of this encounter
--- OUTSIDE RECORDS SUMMARY | 2024-05-25 12:02 | XMS_ITS | Encounter Summary ---
Author Organization [employer] Address [address] [place] [address] Care Team Providers Care Wealth Management Director Name Role Phone Cristian Chacon MD Primary Care Prov ider Reason for Visit * Reason Onset Date Comments ER Follow-up 05/04/2024 Encounter Details Date Type Department Care Team ([facility] st Contact Info) Description 05/04/2024 Telephone [facility] [address] [place] [address] Cristian Chacon MD [address] [place] [address] ER Follow-up Social History Tobacco Use Types [...] pt to triage, spoke to pt through [place] Devulcanizer Loader. pt states seen ER yesterday at [facility], for chest pain, cough, sob, and diagnosed [...] or new concerns. given appt Thursday with [facility] provider at 3:30 for exam. pt understands [...] * Telephone Encounter - Carmen Perkins - 05/04/2024 2:49 PM EST Patient calling to report ED visit on : Date: 05/03 Hospital: [facility] Seen for: Chest Pain, Asthma, Neck Pain, Lung hurting Symptomatic Yes *if yes message should go to Triage Patient advised will forward to team nurse for follow up [phone] [facility] [phone] [facility] (History Instructor) documented in this encounter Plan of Treatment Not on file documented as of this encounter Visit Diagnoses Not on filedocumented in this encounter Additional Health Concerns Assessment Noted Time PHQ-9 Depression Total Score: 16 024 1:19 PM EDT documented as of this encounter Care Teams Wealth Management Director Relationship Specialty Start Date End Date Cristian Chacon MD [address] [place] [phone] PCP - General Internal Medicine 03/17/19 Ivy Payne Textile Screen MakerContact Center Consultant 11/26/23 documented as of this encounter
--- OUTSIDE RECORDS SUMMARY | 2024-05-25 12:02 | XMS_ITS | Encounter Summary ---
Author Organization [facility] Address [address] [place] [address] Care Team Providers Care Photographer Apprentice Name Role Phone Cristian Chacon MD Primary Care Prov ider Encounter Details Date Type Department Care Team (Late Contact Info) Description 03/25/2024 Telephone [facility] Rheumatology [address] [place] [address] Popcorn Vendor: Alonzo Caputo MD [address] [place] [phone] Social History Tobacco Use Types Packs/Day Years [...] Description 06/01/2024 9:00 AM EDT Office Visit [facility] 4th floor Cardiology Medicine [address] [place] [phone] Popcorn Vendor: Hemal Fritz MD [address] [place] [address] [phone] 08/02/2024 1:30 PM EDT Follow-Up [facility] [address] [place] [address] Popcorn Vendor: Morales Ramsey MD [address] [place] [phone] 08/16/2024 2:00 PM EDT Office Visit [facility] [address] [place] [phone] Popcorn Vendor: Dennis Laguna MD [address] [place] [phone] Scheduled Procedures Name Priority Associated Diagnoses Date/Ti me ARTHROSCOPY, SHOULDER, WITH ROTATOR CUFF REPAIR Chronic left shoulder pain ARTHROSCOPY, SHOULDER, DEBRI RONAL, EXTENSIVE Chronic left shoulder pain ARTHROSCOPY, SHOULDER, BICEP S TENODESIS Chronic left shoulder pain documented as of this encounter Visit Diagnoses Not on filedocumented in this encounter Care Teams Photographer Apprentice Relationship Specialty Start Date End Date Cristian Chacon MD [address] [place] [phone] PCP - General 06/04/22 documented as of this encounter
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
--- OUTSIDE RECORDS SUMMARY | 2024-05-25 12:02 | XMS_ITS | Encounter Summary ---
Author Organization [employer] Address [address] [facility] 7t [place] [address] Care Team Providers Care Weasand Trimmer Name Role Phone Cristian Chacon MD Primary Care Prov ider Reason for Visit * Reason Comments Care Coordination Outreach Encounter Details Date Type Department Care Team (Latest Contact Info) Description 05/04/2024 Patient Outreach [facility] CHC MED & PEDS [address] [place], [place] [phone] Cristian Chacon MD [address] [place] [address] Care Coordination (Outreach) Social History Tobacco Use [...] at this time. LVM introducing herself from [facility] CM Department, reminding patient of initial assessment appt via telephone on 05/05/24 @ 3:00 PM with CM Adult Complex Care program [...] documented as of this encounter Care Teams Weasand Trimmer Relationship Specialty Start Date End Date Cristian Chacon MD [address] [place] [address] PCP - General Internal Medicine 03/17/19 Ivy Payne Senior Manager Mergers & AcquisitionsCheck Processing Clerk 11/26/23 documented as of this encounter
--- OUTSIDE RECORDS SUMMARY | 2024-05-25 12:02 | XMS_ITS | Encounter Summary ---
Author Organization [employer] Address 75 [facility] 7t [place] [address] Care Team Providers Care Avaya Engineer Name Role Phone Cristian Chacon MD Primary Care Prov ider Reason for Visit * Reason Onset Date Comments ER Follow-up 03/23/2024 Nurse Triage 03/23/2024 Encounter Details Date Type Department Care Team ([facility] st Contact Info) Description 03/23/2024 Telephone [facility] [address] [place] [address] Cristian Chacon MD [address] [place] [address] ER Follow-up; Nurse Triage Social History Tobacco [...] 11:51 AM [place] [id number] Jose Alberto Pt was seen in [place] ED 03/19/24 , (report is on the [...] is offered an apt this Thursday at [facility] with provider but, requests to [...] 03/23/2024 9:50 AM EST Tc from pt critical care paramedic calling to report ED visit on : Date: 03/[address]: [facility] Seen for: Chest pain, Abdominal pain. Symptomatic Yes (Can't walk normally) *if yes message should go to Triage Patient advised will forward to team nurse for follow up [phone] turkmen documented in this encounter Plan of Treatment Not on file documented as of this encounter Visit Diagnoses Not on filedocumented in this encounter Additional Health Concerns Assessment Noted Time PHQ-9 Depression Total Score: 16 024 1:19 PM EDT documented as of this encounter Care Teams Avaya Engineer Relationship Specialty Start Date End Date Cristian Chacon MD [address] [place] [address] PCP - General Internal Medicine 03/17/19 Ivy Payne Engine Repairer ServiceWorkers' Compensation Claims Examiner 11/26/23 documented as of this encounter
--- OUTSIDE RECORDS SUMMARY | 2024-05-25 12:02 | XMS_ITS | Encounter Summary ---
Author Organization [facility] Address [address] [place] [address] Care Team Providers Care Mill Control Operator Name Role Phone Cristian Chacon MD Primary Care Prov ider Reason for Visit * Reason Onset Date Comments PAC Sick/Symptoms 04/08/2024 Encounter Details Date Type Department Care Team (Late st Contact Info) Description 04/08/2024 Telephone [facility] Rheumatology Clinic [address] [place], [place] [phone] Sales Solutions Representative: Zaida Rust Telephone Intake, Staff PAC Sick/Symptoms [...] AM EST Reached out to pt via Bulgarian speaking telephonic field spec # [id number]. Pt reports that she has been experiencing transient chest pain and b/l foot pain since 03/18/2024. Pt reports that the chest pain is new and that she has an appointment with a Non Destructive Tester in [place] on 04/28/2024. Pt has been taking two [...] Rivas LPN - 04/12/2024 3:50 PM EST band head saw operator #[id number] - LMOM for pt to call back. [...] Description 06/01/2024 9:00 AM EDT Office Visit [facility] 4th floor Cardiology Medicine [address] [place] [address] Sales Solutions Representative: Hemal Fritz MD [address] [place] [address] 08/02/2024 1:30 PM EDT Follow-Up [facility] Rheum Dermatology Clinic [address] [place] [address] Sales Solutions Representative: Morales Ramsey MD [address] [place] [address] 08/16/2024 2:00 PM EDT Office Visit [facility] [address] [place] [address] Sales Solutions Representative: Juan Ramon Vallejo, Dennis Whitlock MD [address] [place] [address] Scheduled Procedures Name Priority Associated Diagnoses Date/Ti me ARTHROSCOPY, SHOULDER, WITH ROTATOR CUFF REPAIR Chronic left shoulder pain ARTHROSCOPY, SHOULDER, DEBRI RONAL, EXTENSIVE Chronic left shoulder pain ARTHROSCOPY, SHOULDER, BICEP S TENODESIS Chronic left shoulder pain documented as of this encounter Visit Diagnoses Not on filedocumented in this encounter Care Teams Mill Control Operator Relationship Specialty Start Date End Date Cristian Chacon MD [address] [place] [address] PCP - General 06/04/22 documented as of this encounter
--- OUTSIDE RECORDS SUMMARY | 2024-05-25 12:02 | XMS_ITS | Encounter Summary ---
Author Organization [employer] Address [address] [facility] [address] 7t [place] [address] Care Team Providers Care Microbiology Technician Name Role Phone Cristian Chacon MD [...] documented as of this encounter Care Teams Microbiology Technician Relationship Specialty Start Date End Date Cristian Chacon MD [address] [place] [address] PCP - General Internal Medicine 03/17/19 Ivy Payne Hatchery AttendantBookkeeping Teacher 11/26/23 documented as of this encounter
--- OUTSIDE RECORDS SUMMARY | 2024-05-25 12:02 | XMS_ITS | Encounter Summary ---
Author Organization [facility] Address [address] [place] [address] Care Team Providers Care Agricultural Research Technician Name Role Phone Cristian Chacon MD Primary Care Prov ider Reason for Visit * Reason Onset Date Comments Rosacea 08/09/2021 Pt is calling to schedule a new pt apt for rosacea. Please call pt at [phone] Encounter Details Date Type Department Care Team ([facility] Contact Info) Description 08/09/2021 Telephone [facility] Central Scheduling Department [address] [place] [address] Telephone Intake, Staff Cash (Pt is calling to schedule a new pt apt for rosacea. Please call pt at [phone]) Social History Tobacco Use Types Packs/Day Years [...] 10:51 AM EDT Documentation purpose. lvm at [phone]. Pt is calling to schedule a new pt apt for rosacea. Please call pt at [phone] documented in this encounter Plan of Treatment Upcoming Encounters Date Type Department Care Team ([facility] Contact Info) Description 06/01/2024 9:00 AM EDT Office Visit [facility] 4th floor Cardiology Medicine [address] [place] [address] Formula Room Worker: Hemal Fritz MD [address] [place] [address] 08/02/2024 1:30 PM EDT Follow-Up [facility] Rheum Dermatology Clinic [address] [place] [address] Formula Room Worker: Morales Ramsey MD [address] [place] [address] 08/16/2024 2:00 PM EDT Office Visit [facility] Lung [facility] Allergy Center [address] [place] [address] Formula Room Worker: Dennis Laguna MD [address] [place] [address] Scheduled Procedures Name Priority Associated Diagnoses Date/Ti me ARTHROSCOPY, SHOULDER, WITH ROTATOR CUFF REPAIR Chronic left shoulder pain ARTHROSCOPY, SHOULDER, DEBRI RONAL, EXTENSIVE Chronic left shoulder pain ARTHROSCOPY, SHOULDER, BICEP S TENODESIS Chronic left shoulder pain documented as of this encounter Visit Diagnoses Not on filedocumented in this encounter Care Teams Agricultural Research Technician Relationship Specialty Start Date End Date Cristian Chacon MD [address] [place] [address] PCP - General 06/04/22 documented as of this encounter
--- OUTSIDE RECORDS SUMMARY | 2024-05-25 12:02 | XMS_ITS | Encounter Summary ---
Author Organization [employer] Address [address] [facility] 7t [place] [address] Care Team Providers Care Ship'S Electronic Warfare Officer Name Role Phone Cristian Chacon MD Primary Care Prov ider Reason for Visit * Reason Comments Care Coordination Outreach Encounter Details Date Type Department Care Team (Latest Contact Info) Description 05/03/[address] [facility] CHC MED & PEDS [address] [place], [place] [phone] Cristian Chacon MD [address] [place] [address] Care Coordination (Outreach) Social History Tobacco Use [...] notify CM. CHW provided contact information of [phone] for any questions or concerns. documented in this encounter Plan of Treatment Not on file documented as of this encounter Visit Diagnoses Not on filedocumented in this encounter Additional Health Concerns Assessment Noted Time PHQ-9 Depression Total Score: 16 024 1:19 PM EDT documented as of this encounter Care Teams Ship'S Electronic Warfare Officer Relationship Specialty Start Date End Date Cristian Chacon MD [address] [place] [address] PCP - General Internal Medicine 03/17/19 Ivy Payne Rn TransportProduction Sampler 11/26/23 documented as of this encounter
--- OUTSIDE RECORDS SUMMARY | 2024-05-25 12:02 | XMS_ITS | Encounter Summary ---
Author Organization [employer] Address [address] [facility] 7t [place] [address] Care Team Providers Care Stockroom Worker Name Role Phone Cristian Chacon MD Primary Care Prov ider Reason for Visit * Reason Comments Care Coordination C3CM/WILLIAM Sandoval initial assessment rescheduled Encounter Details Date Type Department Care Team (Latest Contact Info) Description 05/13/2024 Patient Outreach [facility] MEDICINE [address] [place] [address] Cristian Chacon MD [address] [place] [address] Care Coordination (C3JAMEL/WILLIAM Khanna initial assessment rescheduled) Social History Tobacco Use Types Packs/Day Years [...] as of this encounter Progress Notes * Nino Conroy - 05/13/2024 11:44 AM EDT CHW Nino Conroy placed outbound call to patient in regards to rescheduling missed initial assessment appointment on 05/05/24 for Adult Complex Care program services. Patient's name and were confirmed. Initial Assessment appointment scheduled for 06/09/24 at 3:00 PM. CHW will set up an appointment reminder and will notify CM. CHW provided contact information of [phone] for any questions or concerns. documented in this encounter Plan of Treatment Not on file documented as of this encounter Visit Diagnoses Not on filedocumented in this encounter Additional Health Concerns Assessment Noted Time PHQ-9 Depression Total Score: 16 024 1:19 PM EDT documented as of this encounter Care Teams Stockroom Worker Relationship Specialty Start Date End Date Cristian Chacon MD [address] [place] [address] PCP - General Internal Medicine 03/17/19 Ivy Payne Entry Level Administrative AssistantPersonal Support Worker 11/26/23 documented as of this encounter
--- OUTSIDE RECORDS SUMMARY | 2024-05-25 12:02 | XMS_ITS | Encounter Summary ---
Author Organization [employer] Address [address] [facility] 7t [place] [address] Care Team Providers Care Associate Professor Of Anthropology Name Role Phone Cristian Chacon MD Primary Care Prov ider Reason for Visit * Reason Comments Med Refill Encounter Details Date Type Department Care Team ([facility] Contact Info) Description 02/27/2024 Refill [facility] CHC MED & PEDS [address] [place], [place] [phone] Cristian Chacon MD [address] [place] [address] Social History Tobacco Use Types Packs/Day Years [...] documented as of this encounter Care Teams Associate Professor Of Anthropology Relationship Specialty Start Date End Date Cristian Chacon MD [address] [place] [address] PCP - General Internal Medicine 03/17/19 Ivy Payne Key Account CoordinatorPrefabricated Houses Trimmer 11/26/23 documented as of this encounter
--- OUTSIDE RECORDS SUMMARY | 2024-05-25 12:02 | XMS_ITS | Encounter Summary ---
Author Organization [employer] Address [address] [facility] 7 [place] [address] Care Team Providers Care Pest Technician Name Role Phone Cristian Chacon MD Primary Care Prov ider Reason for Visit * Reason Onset Date Comments Nurse Triage 11/18/2022 Encounter Details Date Type Department Care Team ([facility] st Contact Info) Description 11/18/2022 Telephone C CHC MED & PEDS [address] [place], [place] [phone] Cristian Chacon MD [address] [place] [address] Nurse Triage Social History Tobacco Use Types [...] accepted this outcome Please contact pt at [phone] Fijian Speaker documented in this encounter Plan of Treatment Not on file documented as of this encounter Visit Diagnoses Not on filedocumented in this encounter Care Teams Pest Technician Relationship Specialty Start Date End Date Cristian Chacon MD [address] [place] [address] PCP - General Internal Medicine 03/17/19 Ivy Payne LacquererGround Mixer 03/03/23 11/25/23 Ivy Payne Condenser CleanerGround Mixer 11/26/23 documented as of this encounter
--- OUTSIDE RECORDS SUMMARY | 2024-05-25 12:02 | XMS_ITS | Encounter Summary ---
Author Organization [employer] Address [address] [facility] [address] 7t [place] [address] Care Team Providers Care Medical Records Secretary Name Role Phone Cristian Chacon MD Primary [...] documented as of this encounter Care Teams Medical Records Secretary Relationship Specialty Start Date End Date Cristian Chacon MD [address] [place] [address] PCP - General Internal Medicine 03/17/19 Ivy Panye Client Account SpecialistPaper Slitter 11/26/23 documented as of this encounter
--- OUTSIDE RECORDS SUMMARY | 2024-05-25 12:02 | XMS_ITS | Encounter Summary ---
Author Organization [employer] Address [address] [facility] [address] 7t [place] [address] Care Team Providers Care Locomotive Operator Name Role Phone Cristian Chacon MD Primary Care Prov ider Encounter Details Date Type Department Care Team (Late st Contact Info) Description 05/16/2024 Orders Only GENERIC EXTERNAL DATA DEPARTMENT [...] Procedure Name Priority Date/Time Associated Diagnosis Comments CANCELLED CHEMISTRY Routine 05/16/2024 1 0:26 AM EDT documented in this encounter Results * Cancelled Chemistry (05/16/2024 10:26 AM EDT) Cancelled Chemistry SEE NOTE [facility] Comment:SPECIMEN HEMOLYZED 05/16/2024 10:2 6 AM EDT 05/16/2024 10:26 AM EDT us Generic External Data Provider HISTORICAL/NON OR DERABLE LABS Final Result Performing Organization Address City/State/[facility] Co de Phone Number [facility] [address] [place] [address] [phone] documented in this encounter Visit Diagnoses Not on filedocumented in this encounter Additional Health Concerns Assessment Noted Time PHQ-9 Depression Total Score: 16 024 1:19 PM EDT documented as of this encounter Care Teams Locomotive Operator Relationship Specialty Start Date End Date Cristian Chacon MD [address] [place] [address] PCP - General Internal Medicine 03/17/19 Ivy Payne Professional Services SpecialistDry Starch Operator 11/26/23 documented as of this encounter
--- OUTSIDE RECORDS SUMMARY | 2024-05-25 12:02 | XMS_ITS | Encounter Summary ---
Author Organization [employer] Address [address] [facility] 7t [place] [address] Care Team Providers Care Lead Manufacturing Engineer Name Role Phone Cristian Chacon MD Primary Care Prov ider Reason for Visit * Reason Comments Med Refill Encounter Details Date Type Department Care Team ([facility] Contact Info) Description 05/24/2024 Refill [facility] MEDICINE [address] [place], [place] [phone] Cristian Chacon MD [address] [place] [address] Social History Tobacco Use Types Packs/Day Years [...] documented as of this encounter Care Teams Lead Manufacturing Engineer Relationship Specialty Start Date End Date Cristian Chacon MD [address] [place] [address] PCP - General Internal Medicine 03/17/19 Ivy Payne Continuity PersonManager Quantitative 11/26/23 documented as of this encounter
--- OUTSIDE RECORDS SUMMARY | 2024-05-25 12:02 | XMS_ITS | Encounter Summary ---
Author Organization [employer] Address 75 [facility] 7t [place] [address] Care Team Providers Care Box Lining Machine Operator Name Role Phone Cristian Chacon MD Primary Care Prov ider Reason for Visit * Reason Comments Care Coordination Outreach Encounter Details Date Type Department Care Team (Latest Contact Info) Description 04/26/2024 Patient Outreach [facility] MED & PEDS [address] [place], [place] [phone] Cristian Chacon MD 505 [place] [address] Care Coordination (Outreach) Social History Tobacco Use [...] outbound call to patient introducing herself from [facility], in regards to offering services. Patient's name and was confirmed. Patient agrees to participate in program. Appt. for initial assessment scheduled for 04/28/24 @ 1:00 PM. Patient willneed transportation for appointments. CHW reinforced direct contact information or for any additional questions or concerns and extended clinic hours on Mondays and Wednesdays, and Walk-In Urgent Care Located in [facility]. Patient provided with after-hours line for [facility], , which offer night time triage service and option to transfer to personal lines insurance advisor provider if needed. Patient verbalizes understanding, and able to repeat back to tag writer. documented in this encounter Plan of Treatment Not on file documented as of this encounter Visit Diagnoses Not on filedocumented in this encounter Additional Health Concerns Assessment Noted Time PHQ-9 Depression Total Score: 16 024 1:19 PM EDT documented as of this encounter Care Teams Box Lining Machine Operator Relationship Specialty Start Date End Date Cristian Chacon MD [address] [place] [address] PCP - General Internal Medicine 03/17/19 Ivy Payne Metalizing Machine OperatorPatrol Police Sergeant 11/26/23 documented as of this encounter
--- OUTSIDE RECORDS SUMMARY | 2024-05-25 12:02 | XMS_ITS | Encounter Summary ---
Author Organization [employer] Address 75 [facility] 7t [place] [address] Care Team Providers Care Second Grade Teacher Name Role Phone Cristian Chacon MD Primary Care Prov ider Reason for Visit * Reason Onset Date Comments status check 05/11/2024 Encounter Details Date Type Department Care Team ([facility] st Contact Info) Description 05/11/2024 Telephone [facility] CHC MED & PEDS 505 [place], [place] [phone] Cristian Chacon MD 505 [place] [address] status check Social History Tobacco Use Types [...] documented as of this encounter Care Teams Second Grade Teacher Relationship Specialty Start Date End Date Cristian Chacon MD [address] [place] [phone] PCP - General Internal Medicine 03/17/19 Ivy Payne Asphalt Machine OperatorHat And Cap Sewer 11/26/23 documented as of this encounter
--- OUTSIDE RECORDS SUMMARY | 2024-05-25 12:02 | XMS_ITS | Encounter Summary ---
Author Organization [employer] Address [address] [facility] [address] 7t [place] [address] Care Team Providers Care Senior Logistics Manager Name Role Phone Cristian Chacon MD Primary Care Prov ider Encounter Details Date Type Department Care Team ([facility] st Contact Info) Description 05/17/2024 1:30 PM EDT Office Visit [facility] CHC MED & PEDS 505 [place], [place] [phone] Cristian Chacon MD 505 [place] [address] Screening for colon cancer (Primary Dx); Primary hypertension; Acquired hypothyroidism; Pre-diabetes; Mild persistent asthma, unspecified whether complicated; Mixed stress and urge urinary incontinence Social History Tobacco Use Types Packs/Day Years [...] Mass Index 36.78 05/17/2024 1:31 PM EDT documented in this encounter Progress Notes * Cristian Martinez MD - 05/17/2024 1:30 PM EDT Subjective Patient ID: Scarlett Liriano is a 53 y.o. female who presents for No chief complaint on file.. Hypertension This is a chronic problem. Pertinent negatives include no chest pain, headaches, palpitations or shortness of breath. Review of Systems Respiratory: Negative for shortness of breath. Cardiovascular: Negative for chest pain and palpitations. Neurological: Negative for headaches. Objective Physical Exam Constitutional: Appearance: Normal appearance. Cardiovascular: Rate and Rhythm: Normal rate and regular rhythm. Heart sounds: No murmur heard. Pulmonary: Effort: Pulmonary effort is normal. No respiratory distress. Breath sounds: Normal breath sounds. No stridor. No wheezing or rhonchi. Neurological: General: No focal deficit present. Mental Status: She is alert and oriented to person, place, and time. Psychiatric: Mood and Affect: Mood normal. Behavior: Behavior normal. Assessment/Plan Problem List Items Addressed This Visit Hypothyroidism Follwed by endocrinology, no changes will be made Mild persistent asthma On inhalers, no current exacerbation, continue same therapy Primary hypertension Controlled, keep low sodium diet and exercise as tolerated Pre-diabetes On mounjaro, followed by endocrinology Mixed stress and urge urinary incontinence Patient with urine incontinence, will benefit from pull ups and underbed pads, will send rx Other Visit Diagnoses Screening for colon cancer - Primary Relevant Orders Cologuard?? colon cancer screening documented in this encounter Miscellaneous Notes * Assessment & Plan Note - Cristian Martinez MD - 05/24/2024 11:54 AM EDTAssociated Problem(s): Mixed stress and urge urinary incontinence Patient with urine incontinence, will benefit from pull ups and underbed pads, will send rx * Assessment & Plan Note - Cristian Martinez MD - 05/17/2024 2:45 PM EDTAssociated Problem(s): Mild persistent asthma On inhalers, no current exacerbation, continue same therapy * Assessment & Plan Note - Cristian Martinez MD - 05/17/2024 2:43 PM EDTAssociated Problem(s): Pre-diabetes On mounjaro, followed by endocrinology * Assessment & Plan Note - Cristian Martinez MD - 05/17/2024 2:42 PM EDTAssociated Problem(s): Hypothyroidism Follwed by endocrinology, no changes will be made * Assessment & Plan Note - Cristian Martinez MD - 05/17/2024 2:42 PM EDTAssociated Problem(s): Primary hypertension Controlled, keep low sodium diet and exercise as tolerated documented in this encounter Plan of Treatment Scheduled Orders Name Type Priority Associated Diagnoses Orde r Schedule Cologuard?? colon cancer screening Lab Routine Screening for colon cancer Ordered: 05/17/2024 documented as of this encounter Visit Diagnoses Diagnosis Screening for colon cancer- Primary Special screening for malignant neoplasms, colon Primary hypertension Unspecified essential hypertension Acquired hypothyroidism Unspecified hypothyroidism Pre-diabetes Other abnormal glucose Mild persistent asthma, unspecified whether complicated Mixed stress and urge urinary incontinence Mixed incontinence urge and stress (male)(female) documented in this encounter Additional Health Concerns Assessment Noted Time PHQ-9 Depression Total Score: 16 024 1:19 PM EDT documented as of this encounter Care Teams Senior Logistics Manager Relationship Specialty Start Date End Date Cristian Chacon MD [address] [place] [address] PCP - General Internal Medicine 03/17/19 Ivy Payne Wig ComberPlastic Printer 11/26/23 documented as of this encounter
--- OUTSIDE RECORDS SUMMARY | 2024-05-25 12:02 | XMS_ITS | Encounter Summary ---
Author Organization [employer] Address [address] [facility] [address] 7t [place] [address] Care Team Providers Care Child And Adolescent Psychiatrist Name Role Phone Cristian Chacon MD Primary Care Prov ider Encounter Details Date Type Department Care Team ([facility] st Contact Info) Description 04/26/2024 11:00 AM EST Office Visit [facility] CHC MED & PEDS 505 [place], [place] [phone] Aida Rae MD 505 [place], [place] [phone] Moderate persistent asthma without complication (Primary Dx) [...] documented as of this encounter Care Teams Child And Adolescent Psychiatrist Relationship Specialty Start Date End Date Cristian Chacon MD [address] [place] [phone] PCP - General Internal Medicine 03/17/19 Ivy Payne Scale Model MakerSteward/Stewardess Lounge 11/26/23 documented as of this encounter
--- OUTSIDE RECORDS SUMMARY | 2024-05-25 12:02 | XMS_ITS | Encounter Summary ---
Author Organization [employer] Address [address] [facility] [address] 7t [place] [address] Care Team Providers Care Intern Retail Name Role Phone Cristian Chacon MD Primary Care Prov ider Encounter Details Date Type Department Care Team (Late st Contact Info) Description 05/18/2024 Orders Only GENERIC EXTERNAL DATA DEPARTMENT [...] METABOLIC PANEL Routine 05/18/2024 9:59 AM EDT documented in this encounter Results * (ABNORMAL) Basic Metabolic Panel (05/18/2024 9:59 AM EDT) Sodium 140 135 - 145 mmol/L [facility] Potassium 4.5 3.3 - 5.1 mmol/L [facility] Chloride 109(H) 96 - 108 mmol/L [facility] Carbon Dioxide 24 22 - 29 mmol/L [facility] Anion Gap 12 12 - 20 [facility] Urea Nitrogen (BUN) 20(H) 9 - 16 mg/dL [facility] Creatinine, Serum 0.65 0.5 - 1.4 mg/dL [facility] Estimated Glomerular Filt Rate >60 [facility] Comment:Chronic Kidney Disea se: Estimated GFR < 60 mL/min/1.44g0Ncmvol Kidney Disease: Estimated GFR < 15 mL/min/1.73m2 Glucose 110 60 - 115 mg/dL [facility] Calcium 9.0 8.4 - 10.2 mg/dL [facility] 05/18/2024 9:59 AM EDT 05/18/2024 10:00 AM EDT us Generic External Data Provider LAB BLOOD ORDERAB LES Final Result [facility] [address] [place] [phone] documented in this encounter Visit Diagnoses Not on filedocumented in this encounter Additional Health Concerns Assessment Noted Time PHQ-9 Depression Total Score: 16 024 1:19 PM EDT documented as of this encounter Care Teams Intern Retail Relationship Specialty Start Date End Date Cristian Chacon MD 505 [place] [address] PCP - General Internal Medicine 03/17/19 Ivy Payne Audiology DirectorGlass Wool Blanket Machine Feeder 11/26/23 documented as of this encounter
--- OUTSIDE RECORDS SUMMARY | 2024-05-25 12:02 | XMS_ITS | Encounter Summary ---
Author Organization [facility] Address [address] [place] [address] Care Team Providers Care Expanded Function Dental Assistant Name Role Phone Cristian Chacon MD Primary Care Prov ider Reason for Visit * Reason Onset Date Comments PAC Form/Letter/Records Request 04/21/2024 Encounter Details Date Type Department Care Team ([facility] st Contact Info) Description 04/21/2024 Telephone [facility] 4th floor Cardiology Medicine [address] [place] [address] Cheese Production Supervisor: Mary Arriaga Telephone Intake, Staff PAC Form/Letter/Records [...] you at if we have any questions? [phone] PAC called out to book this appt with the pt, she is asking for an appt letter with the address, date/time and provider's name The address on file is correct and she can be reached at [phone] for any questions Thank you documented in this encounter Plan of Treatment Upcoming Encounters Date Type Department Care Team (Late st Contact Info) Description 06/01/2024 9:00 AM EDT Office Visit [facility] 4th floor Cardiology Medicine [address] [place] [phone] Cheese Production Supervisor: Hemal Fritz MD [address] [place] [phone] 08/02/2024 1:30 PM EDT Follow-Up [facility] [address] [place] [address] Cheese Production Supervisor: Morales Ramsey MD [address] [place] [address] 08/16/2024 2:00 PM EDT Office Visit [facility] [address] [place] [address] Cheese Production Supervisor: Dennis Laguna MD [address] [place] [phone] Scheduled Procedures Name Priority Associated Diagnoses Date/Ti me ARTHROSCOPY, SHOULDER, WITH ROTATOR CUFF REPAIR Chronic left shoulder pain ARTHROSCOPY, SHOULDER, DEBRI RONAL, EXTENSIVE Chronic left shoulder pain ARTHROSCOPY, SHOULDER, BICEP S TENODESIS Chronic left shoulder pain documented as of this encounter Visit Diagnoses Not on filedocumented in this encounter Care Teams Expanded Function Dental Assistant Relationship Specialty Start Date End Date Cristian Chacon MD [address] [place] [phone] PCP - General 06/04/22 documented as of this encounter
--- OUTSIDE RECORDS SUMMARY | 2024-05-25 12:02 | XMS_ITS | Encounter Summary ---
Author Organization [employer] [facility] Address 75 [facility] 7t [place] [address] Care Team Providers Care Project Design Engineer Name Role Phone Cristian Chacon MD Primary Care Prov ider Encounter Details Date Type Department Care Team ([facility] st Contact Info) Description 05/13/2024 Population Health Risk Score [facility] ([facility]) Department [address] [facility] [address] [place] [address] Provider, Population Health Generic Social History Tobacco Use Types Packs/Day Years [...] documented as of this encounter Care Teams Project Design Engineer Relationship Specialty Start Date End Date Cristian Chacon MD [address] [place] [address] PCP - General Internal Medicine 03/17/19 Ivy Payne Slot TechnicianPlatinumsmith 11/26/23 documented as of this encounter
--- OUTSIDE RECORDS SUMMARY | 2024-05-25 12:02 | XMS_ITS | Encounter Summary ---
Author Organization [employer] Address [address] [facility] [address] 7t [place] [address] Care Team Providers Care Ship Captain Name Role Phone Cristian Chacon MD Primary Care Prov ider Encounter Details Date Type Department Care Team (Late st Contact Info) Description 02/19/2024 Orders Only [facility] CHC MED & PEDS [address] [place] [address] Provider, MD Roderick Social History Tobacco Use [...] documented as of this encounter Care Teams Ship Captain Relationship Specialty Start Date End Date Cristian Chacon MD [address] [place] [phone] PCP - General Internal Medicine 03/17/19 Ivy Payne Psychiatric OrderlyConcrete Boom Pump Operator 11/26/23 documented as of this encounter
--- OUTSIDE RECORDS SUMMARY | 2024-05-25 12:02 | XMS_ITS | Encounter Summary ---
Author Organization [employer] Address [address] [facility] [address] 7[address] [place] [address] Care Team Providers Care Plywood Layup Line Core Layer Name Role Phone Cristian Chacon MD Primary Care Prov ider Encounter Details Date Type Department Care Team (Late st Contact Info) Description 03/22/2024 Orders Only [facility] CHC MED & PEDS [address] [place], [place] [phone] Provider, MD Roderick Social History Tobacco Use [...] documented as of this encounter Care Teams Plywood Layup Line Core Layer Relationship Specialty Start Date End Date Cristian Chacon MD [address] [place] [address] PCP - General Internal Medicine 03/17/19 Ivy Payne Ophthalmic PathologistSr. Director Product Management 11/26/23 documented as of this encounter
--- OUTSIDE RECORDS SUMMARY | 2024-05-25 12:02 | XMS_ITS | Clinical Summary ---
Author Organization [facility] [facility] Address [address] [place] [address] Care Team Providers Care Cupola Operator Insulation Name Role Phone Eduarda Villeda MD Primary Care Provider [phone] Medications No known medications Social History Tobacco [...] complete this topic Insurance MEDICAID Care Teams Cupola Operator Insulation Relationship Specialty Start Date End Date Eduarda Villeda MD [address] [address] PCP - General Internal Medicine 05/12/18
== END ==
LOC: HO.CARD 10:19
PROVIDERS: PCP Family Medicine
DX: R00.2 Palpitations (principal); R07.9 Chest pain, unspecified
CPT/HCPCS: 93242; 93306

== ENCOUNTER → 2024-05-25 10:25 | Outpatient (BNV) | payer MEDICAID, SELFPAY | PROVIDERS: PCP Family Medicine; Visit Provider Internal Medicine Cardiovascular Disease | DX: I34.0 Nonrheumatic mitral (valve) insufficiency (principal); I36.1 Nonrheumatic tricuspid (valve) insufficiency | CPT/HCPCS: 93306 ==

== ENCOUNTER 2024-05-26 08:12 | Outpatient (AMB) | payer MEDICAID, SELFPAY ==
--- OUTSIDE RECORDS SUMMARY | 2024-05-26 08:30 | XMS_ITS | Encounter Summary ---
Author Organization [employer] [facility] Address 75 [facility] 7t [place] [address] Care Team Providers Care Pl Sql Developer Name Role Phone Cristian Chacon MD [...] on filedocumented in this encounter Care Teams Pl Sql Developer Relationship Specialty Start Date End Date Cristian Chacon MD [address] [place] [address] PCP - General Internal Medicine 03/17/19 Ivy Payne Freezer UnloaderAids Counselor 03/03/23 11/25/23 Ivy Payne Location AnalystAids Counselor 11/26/23 documented as of this encounter
--- OUTSIDE RECORDS SUMMARY | 2024-05-26 08:30 | XMS_ITS | Encounter Summary ---
Author Organization [employer] Address [address] [facility] 7t [place] [address] Care Team Providers Care Brazing Machine Tender Name Role Phone Cristian Chacon MD Primary Care Prov ider Encounter Details Date Type Department Care Team ([facility] Contact Info) Description 01/11/2024 Orders Only [facility] [address] [place] [address] Provider, MD Roderick Social History Tobacco Use [...] documented as of this encounter Care Teams Brazing Machine Tender Relationship Specialty Start Date End Date Cristian Chacon MD [address] [place] [address] PCP - General Internal Medicine 03/17/19 Ivy Payne Brick Kiln WorkerPeel Oven Tender 11/26/23 documented as of this encounter
--- OUTSIDE RECORDS SUMMARY | 2024-05-26 08:30 | XMS_ITS | Encounter Summary ---
Author Organization [employer] Address 75 [facility] 7t [place] [address] Care Team Providers Care Machine Accountant Name Role Phone Cristian Chacon MD Primary Care Prov ider Reason for Visit * Reason Comments Med Change Request Encounter Details Date Type Department Care Team ([facility] Contact Info) Description 08/31/2023 Refill [facility] CHC MED & PEDS [address] [place], [place] [phone] Cristian Chacon MD 505 [place] [address] Social History Tobacco Use Types Packs/Day Years [...] as of this encounter Care Teams Machine Accountant Relationship Specialty Start Date End Date Cristian Chacon MD [address] [place] [address] PCP - General Internal Medicine 03/17/19 Ivy Payne Manufacturing TechnicianLoader Helper Sorting Yard 03/03/23 11/25/23 Ivy Payne Labor Relations ConsultantLoader Helper Sorting Yard 11/26/23 documented as of this encounter
--- OUTSIDE RECORDS SUMMARY | 2024-05-26 08:30 | XMS_ITS | Clinical Summary ---
Author Organization [employer] Address [address] [facility] 7[address] [place] [address] Care Team Providers Care Leather Lacer Name Role Phone Cristian Chacon MD Primary [...] magnesium oxide (Mag-Ox) 400 MG tablet TOME ЛОЕГ TABLETA POR V A ORAL D 022 [...] ОЛЕГ TABLETA TODOS [place] 90 tablet 3 024 Active losartan (Cozaar) [...] complication, without long-term current use of insulin ([facility]) Use to test blood sugar 1 times daily 100 each 12 025 2025 Active Lancets 33G miscIndications:T ype 2 diabetes mellitus without complication, without long-term current use of insulin ([facility]) 1 Units before breakfast. 100 each 11 Active loratadine (Claritin) 10 MG tablet Take 10 mg by mouth. 018 Discontinued(R eorder (will not trigger notification to Pharmacy)) Blood Glucose Monitoring Suppl (FreeStyle Lite) w/Device kit 1 Device in the morning. 1 kit 023 2024 Discontinued(R eorder (will not trigger [...] complication, without long-term current use of insulin ([facility]) 1 Units before breakfast. 100 each 025 2024 Discontinued(R eorder (will not trigger notification to Pharmacy)) FREESTYLE LITE test stripIndications: Type 2 diabetes mellitus without complication, without long-term current use of insulin ([facility]) Use to test blood sugar 1 times daily 100 each 12 025 2024 Discontinued(R eorder (will not trigger notification to Pharmacy)) Lancets 33G miscIndications:T ype 2 diabetes mellitus without complication, without long-term current use of insulin ([facility]) 1 Units before breakfast. 100 [...] Plan (08/10/2023 4:03 PM EDT): Referral to Hot Stick Worker for further evaluation of symptoms. Ordering Stress [...] allergic will prescribe ketotifen, follow up with animal technician, she has scheduled appointment already Pelvic pain 03/23/2023 Chronic pelvic pain in female 03/17/2023 Assessment & Plan (01/12/2024 6:12 PM EST): Patient [facility] be followed at [facility], will place referral Upper back pain 01/14/2023 [...] lateral foot pain, she has seen various corporate communications specialist, she would like another opinion, she will [...] PM EST): Will place refferal to a engine test cell technician Seborrheic dermatitis 04/10/2022 Assessment & Plan [...] to perform daily activities, she 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 2.9 X 3.8 X 3 CM LEFT ADNEXAL CYSTIC LESION, MOST LIKELY HEMORRHAGIC OVARIAN CYST. 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 =17. Allergic rhinitis due to allergen 2008 Gastroesophageal reflux disease without esophagi tis 07/13/2007 Anxiety and depression 05/13/2007 Overview (03/07/2022): Overview: F/[facility] (DR. NANCE). F/[facility] (DR. NANCE). Hypothyroidism 05/13/2007 Overview (05/29/2022): [...] Insomnia 05/13/2007 Overview (05/29/2022): Overview: F/U AT [facility] (DR. NANCE). F/U AT [facility] (DR. NANCE). Mild persistent asthma 05/13/2007 Assessment & Plan (05/17/2024 2:45 PM EDT): On inhalers, no current exacerbation, continue same therapy Encounters Date Type Department Care Team Description 05/24/[address] [facility] [address] [place] [address] Cristian Chacon MD 05/24/[address] [facility] [address] [place] [address] Cristian Chacon MD 05/18/2024 Orders Only GENERIC EXTERNAL DATA DEPARTMENT Provider, Generic External Data 05/17/2024 1:30 PM EDT Office Visit [facility] [address] [place] [address] Cristian Chacon MD Screening for colon cancer (Primary Dx); Primary hypertension; Acquired hypothyroidism; Pre-diabetes; Mild persistent asthma, unspecified whether complicated; Mixed stress and urge urinary incontinence 05/17/2024 Travel 05/16/2024 Orders Only GENERIC EXTERNAL DATA DEPARTMENT Provider, Generic External Data 05/13/[address] [facility] [address] [place] [address] Cristian Chacon MD Care Coordination ([facility]IAM Parks initial assessment rescheduled) 05/13/2024 Population Health Risk Score [facility] (C[facility]) Department [address] [place] [phone] Provider, Population Health Generic 05/11/2024 Telephone [facility] [address] [place] [address] Cristian Chacon MD status check 05/10/2024 3:30 PM EDT Office Visit [facility] [address] [place] [address] Eduarda Villeda MD Other chest pain (Primary Dx); Multiple joint pain; Moderate persistent asthma without complication; Type 2 diabetes mellitus without complication, without long-term current use of insulin ([facility]); Fall, initial encounter 05/10/2024 Travel 05/04/2024 Patient Outreach [facility] [address] [place] [address] Cristian Chacon MD Care Coordination (Outreach) 05/04/[address] [facility] [address] [place] [address] Cristian Chacon MD ER Follow-up 05/03/2024 Orders Only GENERIC EXTERNAL DATA DEPARTMENT Provider, Generic External Data 05/03/2024 Patient Outreach [facility] [address] [place] [address] Cristian Chacon MD Care Coordination (Outreach) 05/02/2024 Orders Only [facility] External Provider, [facility] 04/27/2024 Patient Outreach [facility] [address] [place] [address] Cristian Chacon MD Care Coordination (Outreach) 04/26/2024 11:00 AM EST Office Visit [facility] [address] [place] [address] Aida Rae MD Moderate persistent asthma without complication (Primary Dx) 04/26/2024 Travel 04/26/2024 Patient Outreach [facility] [address] [place] [address] Cristian Chacon MD Care Coordination (Outreach) 04/20/2024 Telephone [facility] [address] [place] [address] Cristian Chacon MD Durable Medical Equipment 04/14/[address] [facility] [address] [place] [address] Cristian Chacon MD ER Follow-up 04/13/2024 10:45 AM EST Office Visit [facility] [address] [place] [address] Cristian Chacon MD Other chest pain (Primary Dx) 04/13/2024 Travel 04/04/2024 3:30 PM EST Office Visit [facility] [address] [place] [address] Cristian Chacon MD Dietary counseling; Exercise counseling; Systemic lupus erythematosus, unspecified SLE type, unspecified organ involvement status ([facility]); Type 2 diabetes mellitus without complication, without long-term current use of insulin ([facility]); Asthma, unspecified asthma severity, unspecified whether complicated, unspecified whether persistent 04/04/2024 Travel 03/25/2024 3:20 PM EST Office Visit [facility] [address] [place] [address] Sherry Kebede MD Abnormal CT scan (Primary Dx); Furuncle of right axilla; Vaginal yeast infection 03/25/[address] [facility] [address] [place] [address] Radha Bagley RN triage/recent [facility] ED 03/24/24 03/25/2024 Telephone [facility] [address] [place] [address] Cristian Chacon MD Nurse Triage 03/23/[address] [facility] [address] [place] [address] Cristian Chacon MD ER Follow-up; Nurse Triage 03/22/2024 Orders Only [facility] [address] [place] [address] Roderick Weiner MD 03/15/2024 Telephone [facility] [address] [place] [address] Cristian Chacon MD Pre-op Exam 03/10/2024 Telephone [facility] [address] [place] [address] Cristian Chacon MD No Show 03/09/2024 Telephone [facility] [address] [place] [address] Cristian Chacon MD pre op 02/27/2024 Refill [facility] [address] [place] [phone] Cristian Chacon MD from Last 3 Months [...] complication, without long-term current use of insulin ([facility]) CT CHEST ANGIO W AND [...] included. Sodium 140 135 - 145 mmol/L [facility] Potassium 4.5 3.3 - 5.1 mmol/L [facility] Chloride 109(H) 96 - 108 mmol/L [facility] Carbon Dioxide 24 22 - 29 mmol/L [facility] Anion Gap 12 12 - 20 [facility] Urea Nitrogen (BUN) 20(H) 9 - 16 mg/dL [facility] Creatinine, Serum 0.65 0.5 - 1.4 mg/dL [facility] Estimated Glomerular Filt Rate >60 [facility] Comment:Chronic Kidney Disea se: Estimated GFR < 60 mL/min/[id number] Kidney Disease: Estimated GFR < 15 mL/min/1.73m2 Glucose 110 60 - 115 mg/dL [facility] Calcium 9.0 8.4 - 10.2 mg/dL [facility] 05/18/2024 9:59 AM EDT 05/18/2024 10:00 AM EDT us Generic External Data Provider LAB BLOOD ORDERAB LES Final Result Performing Organization Address [facility]/ZIP Co de Phone Number [facility] [address] [place] [phone] * Cancelled Chemistry (05/16/2024 10:26 AM EDT) Cancelled Chemistry SEE NOTE [facility] Comment:SPECIMEN HEMOLYZED 05/16/2024 10:2 6 AM EDT 05/16/2024 10:26 AM EDT us Generic External Data Provider HISTORICAL/NON OR DERABLE LABS Final Result Performing Organization Address [facility] Co de Phone Number [facility] [address] [place] [phone] * ECG 12 lead (05/10/2024 4:51 PM EDT) Only the most recent of3 resultswithin the time period is included. Narrative Eduarda Villeda MD - 05/10/2024 4:51 PM EDT Heart rate 92 bpm. ??[place] VIII degrees. ??Normal sinus rhythm. ??No sign of left atrial enlargement/right atrial enlargement. ??No sign of hypertrophy. No ST elevation or ST depression. ??Normal EKG. us Eduarda Villeda MD ECG ORDERABLES Final Resul t * Glucose, Whole Blood (05/03/2024 5:15 PM EST) [facility] [address] Glucose, Whole Blood 76 60 - 115 mg/dL [facility] Comment:METER #: [id number] 05/03/2024 5:15 PM EST 05/03/2024 5:51 PM EST us Generic External Data Provider LAB BLOOD ORDERAB LES Final Result Performing Organization Address [facility] Co de Phone Number [facility] [address] [place] [phone] * High Sensitivity Troponin I (05/03/2024 5:08 PM EST) Only the most recent of2 resultswithin the time period is included. [facility] [address] TROPONIN I HIGH SENSITIVITY 7.4 <3.5 - 17.0 ng/L [facility] Comment:The [place] high sens itivity Troponin-I results should beused in conjunction with other diagnostic information suchas ECG, clinical observations and information, and patientsymptoms to aid in the diagnosis of [place]. 05/03/2024 5:08 PM EST 05/03/2024 5:12 PM EST us Generic External Data Provider LAB BLOOD ORDERAB LES Final Result Performing Organization Address [facility] Co de Phone Number [facility] [address] [place] [phone] * Prothrombin Time-INR (05/03/2024 5:08 PM EST) Prothrombin Time 11.7 10.9 - 12.4 SEC [facility] INTERNATIONAL NORM RATIO 1.0 0.9 - 1.1 [facility] Comment:INTERNATIONAL NORMAL IZED RATIO (INR) [...] Provider LAB BLOOD ORDERAB LES Final Result [facility] [address] [place] [phone] * SARS-CoV-2 RNA, Influenza A/B, and RSV RNA, Ql NAAT (05/03/2024 11:04 AM EST) Influenza A PCR NEGATIVE Negative [facility] Influenza B PCR NEGATIVE Negative [facility] Resp Syncy Virus RNA Qual PCR NEGATIVE Negative [facility] SARS COV2 PCR NEGATIVE Negative [facility] Comment:All test results mus t [...] use by authorized laboratories.Testing performed on the [employer] GeneXpert utilizingreal-time RT-PCR.All SARS CoV2 and positive influenza A/B results arereported to [facility]. 05/03/2024 11:0 4 AM EST 05/03/2024 11:12 AM EST us Generic External Data Provider LAB MICROBIOLOGY - GENERAL ORDERABLES Final Result [facility] [address] [place] [phone] * (ABNORMAL) CBC auto differential (05/03/2024 11:04 AM EST) White Blood Count 8.1 4.8 - 10.8 X10*3/uL [facility] Red Blood Count 4.07(L) 4.20 - 5.50 X10*6/uL [facility] Hemoglobin 11.9(L) 12.0 - 16.0 g/dl [facility] Hematocrit 35.8(L) 37.0 - 47.0 % [facility] Mean Corpuscular Volume 88.0 80.0 - 98.0 fL [facility] Mean Corpuscular Hemoglobin 29.2 27.0 - 33.0 pg [facility] Mean Corpuscular HGB Conc 33.2 31.0 - 35.0 g/dl [facility] Red Cell Distribution Width 14.4 11.0 - 16.0 % [facility] Platelet Count 339 160 - 400 X10*3/uL [facility] Mean Platelet Volume 9.3(L) 9.4 - 12.3 fL [facility] Neutrophils Percent Auto 83.7(H) 45 - 73 % [facility] Imm Gran Pct Auto 0.6(H) 0.0 - 0.4 % [facility] Lymphocytes Percent Auto 11.5(L) 20 - 40 % [facility] Monocytes Percent Auto 3.6 2 - 11 % [facility] Eosinophils Percent Auto 0.5 0 - 4 % [facility] Basophils Percent Auto 0.1 0 - 2 % [facility] NRBC Pct Auto 0.0 0.0 - 0.2 /100WBC [facility] Neutrophils Absolute Auto 6.7 2.0 - 8.3 x10*3/uL [facility] Imm Gran Abs Auto 0.05(H) 0.00 - 0.03 X10*3/uL [facility] Lymphocytes Absolute Auto 0.9(L) 1.2 - 4.9 X10*3/uL [facility] Monocytes Absolute Auto 0.3 0.1 - 1.2 X10*3/uL [facility] Eosinophils Absolute Auto 0.0 0.0 - 0.4 X10*3/uL [facility] Basophils Absolute Auto 0.0 0.0 - 0.2 X10*3/uL [facility] NRBC Abs Auto 0.000 0.0 - 0.012 X10*3/uL [facility] 05/03/2024 11:0 4 AM EST 05/03/2024 11:12 AM EST Generic External Data Provider LAB BLOOD ORDERAB LES Final Result Performing Organization Address [facility]/ZIP Co de Phone Number [facility] [address] [place] [phone] * (ABNORMAL) C-reactive Protein (05/03/2024 11:04 AM EST) Pathologist [facility] C Reactive Protein 3.79(H) < or = 0.50 mg/dL [facility] 05/03/2024 11:0 4 AM EST 05/03/2024 11:12 AM EST Generic External Data Provider LAB BLOOD ORDERAB LES Final Result Performing Organization Address [facility]/ZIP Co de Phone Number [facility] [address] [place] [phone] * B Type Natriuretic Peptide (BNP) (05/03/2024 11:04 AM EST) Pathologist [facility] B Type Natriuretic Peptide 44 <100 pg/mL [facility] Comment:For those patients w ho are being treated with Natrecor(nesiritide, recombinant BNP), BNP testing should beperformed at least two hours post treatment in order toensure that only endogenous levels of BNP are detected. 05/03/2024 11:0 4 AM EST 05/03/2024 11:12 AM EST us Generic External Data Provider LAB BLOOD ORDERAB LES Final Result Performing Organization Address [facility] Co de Phone Number [facility] [address] [place] [phone] * Magnesium (05/03/2024 11:04 AM EST) Magnesium 2.1 1.6 - 2.6 mg/dL [facility] 05/03/2024 11:0 4 AM EST 05/03/2024 11:12 AM EST us Generic External Data Provider LAB BLOOD ORDERAB LES Final Result Performing Organization Address [facility] Phone Number [facility] [address] [place] [phone] * Lipase (05/03/2024 11:04 AM EST) Lipase 37 8 - 78 U/L [facility] 05/03/2024 11:0 4 AM EST 05/03/2024 11:12 AM EST us Generic External Data Provider LAB BLOOD ORDERAB LES Final Result Performing Organization Address [facility] Phone Number [facility] [address] [place] [phone] * Creatine Kinase, Total (05/03/2024 11:04 AM EST) Creatine Kinase Total 35 26 - 140 U/L [facility] 05/03/2024 11:0 4 AM EST 05/03/2024 11:12 AM EST us Generic External Data Provider LAB BLOOD ORDERAB LES Final Result Performing Organization Address [facility] Phone Number [facility] [address] [place] [phone] * Hepatic Function Panel (05/03/2024 11:04 AM EST) Bilirubin, Total 0.5 0.0 - 1.0 mg/dL [facility] Bilirubin, Direct 0.2 0.0 - 0.5 mg/dL [facility] Aspartate Amino Transferase 14 5 - 31 U/L [facility] Alanine Aminotransferase 13 0 - 31 U/L [facility] Total Protein 7.0 6.5 - 8.0 g/dL [facility] Albumin Level 3.5 3.5 - 5.0 g/dL [facility] Alkaline Phosphatase 54 39 - 117 U/L [facility] 05/03/2024 11:0 4 AM EST 05/03/2024 11:12 AM EST us Generic External Data Provider LAB BLOOD ORDERAB LES Final Result Performing Organization Address [facility] Phone Number [facility] [address] [place] [phone] * XR Chest 1 View (05/03/2024 10:40 AM EST) Anatomical Region Laterality Modality Chest Radiographic Amanda ging 05/03/2024 10:4 0 AM EST Narrative 05/03/2024 11:39 AM EST ? [facility] ?[address] ?[place] [address] ?XRay Report ? Signed ? Patient: Liriano,Scarlett ?MR#: [id number] ?? 354 ? : 1970 ?Acct:[id number] ? Age/Sex: 53 / F ?ADM Date: 03/04/25 ? Loc: HO.ED ? Attending Dr: ? Ordering Physician: Dana Montenegro DO ?? Date of Service: 05/03/24 ?? Procedure(s): XR chest 1V ?? Accession Number(s): [id number] ? cc: Cristian Chacon MD; Dana Montenegro [...] DD/ 1040 ? TD/TT: 05/03/24 1100 ? Threat Analyst: MSM ? Procedure Note Sergioconjensen, Image - 05/03/[address] [address] XRay Report Signed Patient: Scarlett LirianoMR#: [id number] 354 : 1970Acct:[id number] Age/Sex: 53 / FADM Date: 05/03/24 Loc: HO.ED Attending Dr: Ordering Physician: Dana Montenegro DO Date of Service: 05/03/24 Procedure(s): XR chest 1V Accession Number(s): [id number] cc: Cristian Chacon MD; Dana Montenegro DO [...] 05/03/24 1136 DD/ 1040 TD/TT: 05/03/24 1100 Threat Analyst: LEATHA [facility] External Provider IMG XR PROCEDURES Final Result * US Pelvis Transvaginal (05/03/2024 9:16 AM EST) Anatomical Region Laterality Modality Pelvis Ultrasound 05/03/2024 9:16 AM EST Narrative 05/03/2024 9:18 AM EST ? [facility] ?[address] ?[place] [address] ? Ultrasound Report ? Signed ? Patient: Scarlett Liriano ?MR#: [id number] ?? 354 ? : 1970 ?Acct:[id number] ? Age/Sex: 53 / F ?ADM Date: 05/02/24 ? Loc: HO.US ? Attending Dr: Gavino Wynne MD ? Ordering Physician: Gavino Wynne MD ?? Date of Service: 05/02/24 ?? Procedure(s): US pelvic and transvaginal ?? Accession Number(s): [id number] ? cc: Saskia Rosas MD; Gavino Wynne [...] OV> ?05/03/[address] ? DD/ 5 ? TD/TT: 05/03/2416 ? Threat Analyst: ? Procedure Note Donguilleter, Image - 05/03/2024 [place] [address] Ultrasound Report Signed Patient: Scarlett LirianoMR#: [id number] 354 : 1970Acct:[id number] Age/Sex: 53 / FADM Date: 05/02/24 Loc: HO.US Attending Dr: Gavino Wynne MD Ordering Physician: Gavino Wynne MD Date of Service: 05/02/24 Procedure(s): US pelvic and transvaginal Accession Number(s): [id number] cc: Saskia Rosas MD; Gavino Wynne MD [...] in OV> 05/03/24916 DD/ 5 TD/TT: 05/03/24915 Threat Analyst: us [facility] External Provider IMG US PROCEDURES Final Result * POCT Glucose (04/04/2024 4:00 PM EST) Glucose Blood, POC 174 60 - 200 mg/dL QC Media Lot # [id number] Lot# Expiration Date [id number] Blood Capillary blood specimen / Unknown 04/04/2024 [...] EDT Narrative 06/23/2023 5:53 AM EDT ? [facility] ? [address] ?[place] [address] ? Mammography Report ? Signed ? Patient: Scarlett Liriano ?MR#: [id number] ?? 354 ? : 1970 ?Acct:[id number] ? Age/Sex: 52 / F ?ADM Date: 03/27/24 ? Loc: HO.MAMMO ? Attending Dr: Cristian Martinez MD ? Ordering Physician: Cristian Chacon MD ?Res ?? ults: 1Negative ? Date of Service: 05/27/23 ?Follow Up: 1 Year From Orig ?? inal Mammogram ? Procedure(s): MM tomosynthesis screening BI ?? Accession Number(s): [id number] ? cc: Cristian Chacon MD ? EXAMINATION: [...] by Stefanie Alves MD in OV> ? 06/23/23548 ? DD/ 9 ? TD/TT: ? Threat Analyst: ? Procedure Note Makenna Vazquez - 06/23/2023 [facility] [address] [place] [address] Dr. Alejo, DIONISIO [address] Mammography Report Signed Patient: Scarlett LirianoMR#: [id number] 354 : 1970Acct:[id number] Age/Sex: 52 / FADM Date: 05/27/23 Loc: HO.MAMMO Attending Dr: Cristian Martinez MD Ordering Physician: Cristian Chacon ults: 1Negative Date of Service: 05/27/23Follow Up: 1 Year From Orig ina Mammogram Procedure(s): MM tomosynthesis screening BI Accession Number(s): [id number] cc: Cristian Chacon MD EXAMINATION: MM SCREENING [...] in OV> 06/23/23 0549 DD/ 0910 TD/TT: Threat Analyst: us Cristian Martinez MD IMG BI PROCEDURES [...] ?? Lopez GODFREY et al. KAILEE. 2013;310(19): 0066-3540 ?? (http://education.Groupalia/faq/MHZ135) Non-HDL Cholesterol 121 <130 mg/dL (calc) [facility] Comment: For patients with diabetes plus 1 major ASCVD risk ?? factor, treating to a non-HDL-C goal of <100 mg/dL ?? (LDL-C of <70 mg/dL) is considered a therapeutic ?? option. Triglycerides 91 <150 mg/dL [facility] 11/26/2021 9:36 AM EDT Cristian Martinez MD LAB BLOOD ORDERABL ES Final Result [facility] [address] from Last 3 Months or Most Recently Relevant to Health Maintenance Insurance C3 Care Teams Leather Lacer Relationship Specialty Start Date End Date WylieCristian Cook MD [address] [place] [phone] PCP - General Internal Medicine 03/17/19 Ivy Payne [employer] SupervisorWafer Polisher 11/26/23
--- OUTSIDE RECORDS SUMMARY | 2024-05-26 08:30 | XMS_ITS | Encounter Summary ---
Author Organization [employer] Address [address] [facility] [address] [place] [address] Care Team Providers Care Exhaust And Muffler Repairer Name Role Phone Cristian Chacon MD Primary Care Prov ider Encounter Details Date Type Department Care Team ([facility] Contact Info) Description 11/19/2023 Orders Only [facility] [address] [place], [place] [phone] Provider, MD Roderick Social History Tobacco Use [...] documented as of this encounter Care Teams Exhaust And Muffler Repairer Relationship Specialty Start Date End Date Cristian Chacon MD [address] [place] [phone] PCP - General Internal Medicine 03/17/19 Ivy Payne Executive RecruiterStapler Coil Unit 03/03/23 11/25/23 Ivy Payne Negotiations DirectorStapler Coil Unit 11/26/23 documented as of this encounter
--- OUTSIDE RECORDS SUMMARY | 2024-05-26 08:30 | XMS_ITS | Encounter Summary ---
Author Organization [employer] [facility] Address [address] [facility] [address] [place] [address] Care Team Providers Care Action Installer Name Role Phone Cristian Chacon MD [...] on filedocumented in this encounter Care Teams Action Installer Relationship Specialty Start Date End Date Cristian Chacon MD [address] [place] [address] PCP - General Internal Medicine 03/17/19 Ivy Payne Automotive TechnicianEnvironmental Associate 03/03/23 11/25/23 Ivy Payne Hvac ManagerEnvironmental Associate 11/26/23 documented as of this encounter
--- OUTSIDE RECORDS SUMMARY | 2024-05-26 08:30 | XMS_ITS | Encounter Summary ---
Author Organization [employer] Address [address] [place] [address] Care Team Providers Care Cleaning Matron Name Role Phone Cristian Chacon MD Primary Care Prov ider Encounter Details Date Type Department Care Team ([facility] st Contact Info) Description 12/22/2023 Orders Only [facility] MED & PEDS [address] [place], [place] [phone] Cristian Chacon MD [address] [place] [address] Social History Tobacco Use Types Packs/Day Years [...] documented as of this encounter Care Teams Cleaning Matron Relationship Specialty Start Date End Date Cristian Chacon MD [address] [place] [id number] PCP - General Internal Medicine 03/17/19 Ivy Payne Sales Order ProcessorShop Fitter 11/26/23 documented as of this encounter
--- OUTSIDE RECORDS SUMMARY | 2024-05-26 08:30 | XMS_ITS | Encounter Summary ---
Author Organization [employer] Address [address] [place] [address] Care Team Providers Care Logistics Supply Officer Name Role Phone Cristian Chacon MD Primary Care Prov ider Encounter Details Date Type Department Care Team ([facility] st Contact Info) Description 08/25/2023 Telephone [facility] CHC MED & PEDS [address] [place], [place] [phone] Cristian Chacon MD [address] [place] [address] Social History Tobacco Use Types Packs/Day Years [...] documented as of this encounter Care Teams Logistics Supply Officer Relationship Specialty Start Date End Date Cristian Chacon MD [address] [place] [phone] PCP - General Internal Medicine 03/17/19 Ivy Payne Fringe MakerCost Manager 03/03/23 11/25/23 Ivy Payne Quality AssociateCost Manager 11/26/23 documented as of this encounter
--- OUTSIDE RECORDS SUMMARY | 2024-05-26 08:30 | XMS_ITS | Encounter Summary ---
Author Organization [email or web address] Address [address] [facility] 7 [place] [address] Care Team Providers Care Roll Weigher Name Role Phone Cristian Chacon MD Primary Care Prov ider Reason for Visit * Reason Onset Date Comments New med script 04/01/2022 Encounter Details Date Type Department Care Team ([facility] Contact Info) Description 04/01/2022 Telephone [facility] MED & PEDS [address] [place], [place] [phone] Cristian Chacon MD [address] [place] [address] New med script Social History Tobacco Use [...] on filedocumented in this encounter Care Teams Roll Weigher Relationship Specialty Start Date End Date Cristian Chacon MD [address] [place] [address] PCP - General Internal Medicine 03/17/19 Ivy Payne Scientific InvestigatorPatient Financial Rep 03/03/23 11/25/23 Ivy Payne Typists SupervisorPatient Financial Rep 11/26/23 documented as of this encounter
--- OUTSIDE RECORDS SUMMARY | 2024-05-26 08:30 | XMS_ITS | Encounter Summary ---
Author Organization [employer] Address [address] [place] [address] Care Team Providers Care Self Defense Instructor Name Role Phone Cristian Chacon MD Primary Care Prov ider Encounter Details Date Type Department Care Team (Late st Contact Info) Description 09/04/2023 Orders Only [facility] CHC MED & PEDS [address] [place], [place] [phone] Cristian Chacon MD [address] [place] [address] Social History Tobacco Use Types Packs/Day Years [...] documented as of this encounter Care Teams Self Defense Instructor Relationship Specialty Start Date End Date Cristian Chacon MD [address] [place] [id number] PCP - General Internal Medicine 03/17/19 Ivy Payne Delinquent Account ClerkStitch Cleaner 03/03/23 11/25/23 Ivy Payne Import Export ManagerStitch Cleaner 11/26/23 documented as of this encounter
--- OUTSIDE RECORDS SUMMARY | 2024-05-26 08:30 | XMS_ITS | Encounter Summary ---
Author Organization [employer] Address [address] [facility] [address]t [place] [address] Care Team Providers Care Dining Car Hop Name Role Phone Cristian Chacon MD Primary Care Prov ider Reason for Visit * Reason Onset Date Comments Nurse Triage 08/24/2023 Encounter Details Date Type Department Care Team ([facility] st Contact Info) Description 08/24/2023 Telephone C [facility] MED [facility] PEDS [address] [place], [place] [phone] Cristian Chacon MD [address] [place] [address] Nurse Triage Social History Tobacco Use Types [...] 08/24/2023 10:26 AM EDT Triage call with [employer] [place] [id number] Pt reports rash has developed on upper, inner thighs and has spread to private area . Pt describesrash as red, bumpy and itchy. Pt reports some irritation vaginally and burning with urination. Burning is described as occurring when urine contacts rash but, may have other urinary symptoms as well.This is not clear to triage nurse. Advised Pt to come to [facility] today at 230pm. 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) documented in this encounter Plan of Treatment Not on file documented as of this encounter Visit Diagnoses Not on filedocumented in this encounter Additional Health Concerns Assessment Noted Time PHQ-9 Depression Total Score: 14 024 9:49 AM EST documented as of this encounter Care Teams Dining Car Hop Relationship Specialty Start Date End Date Cristian Chacon MD [address] [place] [phone] PCP - General Internal Medicine 03/17/19 Ivy Payne Milk Route DelivererMother Repairer 03/03/23 11/25/23 Ivy Payne Business Education InstructorMother Repairer 11/26/23 documented as of this encounter
--- OUTSIDE RECORDS SUMMARY | 2024-05-26 08:31 | XMS_ITS | Clinical Summary ---
Author Organization [facility] Address [address] [place] [address] Care Team Providers Care Drop Wire Builder Name Role Phone Cristian Chacon MD [...] Type Department Care Team Description 04/21/2024 Telephone [facility] 4th floor Cardiology Medicine [address] [place] [address] [phone] Solar Mechanical Engineer: Mary Arriaga Telephone Intake, Staff PAC Form/Letter/Record s Request 04/20/2024 9:00 AM EST Follow-Up [facility] [address] [place] [address] Solar Mechanical Engineer: Alonzo Baez MD FELI positive (Primary Dx); Arthralgia, unspecified joint; Chest pain, unspecified type; Moderate persistent asthma, unspecified whether complicated 04/08/2024 Telephone [facility] [address] [place] [address] [phone] Solar Mechanical Engineer: Zaida Rust Telephone Intake, Staff PAC Sick/Symptoms 03/30/2024 Telephone [facility] [address] [place] [address] [phone] Solar Mechanical Engineer: Alonzo Baez MD PAC Patient Request Call Back; PAC Clinical Questions 03/27/2024 Telephone [facility] Rheumatology [address] [place] [address] 66063 Solar Mechanical Engineer: Alonzo Caputo MD 03/25/2024 Telephone [facility] Rheumatology [address] [place] [address] 47781 Solar Mechanical Engineer: Alonzo Caputo MD 03/24/2024 Documentation [facility] Rheumatology [address] [place] [address] 41155 Solar Mechanical Engineer: Alonzo Caputo MD 03/24/2024 Telephone [facility] Rheumatology [address] [place] [address] 44961 Solar Mechanical Engineer: Alonzo Caputo MD 03/23/2024 4:00 PM EST - 03/23/2024 11:59 PM EST Hospital Encounter [facility] XRay [address] [place] [address] [phone] Alonzo Persaud MD Chronic pain of both shoulders; Bilateral hip pain; Neck pain Discharge Disposition: Home or Self Care () 03/23/2024 3:20 PM EST Office Visit [facility] [address] [place] [address] [phone] Solar Mechanical Engineer: Alonzo Baez MD Chronic pain of both shoulders (Primary Dx); Bilateral hip pain; Neck pain 03/22/2024 Telephone [facility] [address] [place] [address] [phone] Solar Mechanical Engineer: Zaida Rust Telephone Intake, Staff PAC Provider Requested Call Back Dr Persaud 03/22/2024 Telephone [facility] Endocrinology Clinic [address] [place] [address] 27233 Solar Mechanical Engineer: Alysha Roman Telephone Intake, Staff 03/17/2024 Refill [facility] [address] [place] [address] 11093 Solar Mechanical Engineer: Alonzo Baez MD 03/05/2024 Refill [facility] [address] [place] [address] 46152 Solar Mechanical Engineer: Alonzo Baez MD from Last 3 Months [...] Description 06/01/2024 9:00 AM EDT Office Visit [facility] Building 4th floor Cardiology Medicine [address] [place] [address] [phone] Solar Mechanical Engineer: Hemal Fritz MD [address] [place] [address] [phone] 08/02/2024 1:30 PM EDT Follow-Up [facility] Dermatology [facility] [address] [place] [address] Solar Mechanical Engineer: Morales Ramsey MD [address] [place] [address] [phone] 08/16/2024 2:00 PM EDT Office Visit [facility] [address] [place] [address] [phone] Solar Mechanical Engineer: Dennis Laguna MD [address] [place] [address] [phone] Scheduled Procedures Name Priority Associated Diagnoses Date/Ti [...] Screening Completed 06/04/2022 Procedures * Due to [place] state law, this organization might not be [...] AM EST FELI positive Arthralgia, unspecified joint [id number] STAT 04/20/19 9:23 AM EST FELI positive [...] to Health Maintenance Results * Due to [place] state law, this organization might not be sharing negative HIV tests. * Drake Top, Urine (04/20/2024 9:23 AM EST) Only the most recent of2 resultswithin the time period is included. Pathologist [facility] Extra Tube Hold for add-ons. 04/20/2024 2:05 PM EST [facility] Comment:Auto resulted. Urine Urine specimen collection, clean catch / Unknown Non-Blood Collection / Unknown 04/20/2024 9:23 AM EST 04/20/2024 9:39 AM EST us Alonzo Persaud MD LAB URINE ORDERABLES Final Result [facility] [address] [place] [phone], * (ABNORMAL) DNA AB(DS) Crithidia Titer (04/20/2024 9:23 AM EST) Only the most recent of2 resultswithin the time period is included. Pathologist [facility] DNA Ab Crithidia Titer 1:40(H) <1:10 titer 04/23/2024 12:47 PM EST [facility] ([place]) Blood Structure of peripheral vein / Unknown Venipuncture / Unknown 04/20/2024 9:23 AM EST 04/20/2024 9:38 AM EST Narrative [facility] - 04/23/2024 12:47 PM EST [facility] Received Date: Alonzo Persaud MD LAB BLOOD ORDERABLES Final Result [facility] [address] [facility] 3rd Floor, [address] [place] [address], [place] [phone] [facility] TASHIA (GIMENEZ) [address] [place] [address], [place] * (ABNORMAL) Urinalysis W/Reflex to Microscopic & Culture (04/20/2024 9:23 AM EST) Only the most recent of2 resultswithin the time period is included. Color, Urine Yellow Colorless, Light Yellow, Yellow, Dark Yellow 04/20/2024 9:59 AM [facility] Clarity, Urine Clear Clear 04/20/2024 9:59 AM [facility] Specific [place], Urine 1.024 1.005 - 1.030 04/20/2024 9:59 AM [facility] pH, Urine 5.0 4.6 - 8.0 04/20/2024 9:59 AM [facility] Protein, Urine 1+(A) Negative 04/20/2024 9:59 AM EST [facility] Glucose, Urine Negative Negative 04/20/2024 9:59 AM [facility] Ketones, Urine Negative Negative 04/20/2024 9:59 AM [facility] Bilirubin, Urine Negative Negative 04/20/2024 9:59 AM [facility] Blood, Urine Negative Negative 04/20/2024 9:59 AM [facility] Nitrite, Urine Negative Negative 04/20/2024 9:59 AM [facility] Urobilinogen, Urine Normal Normal 04/20/2024 9:59 AM EST [facility] Leukocyte Esterase, Urine Negative Negative 04/20/2024 9:59 AM EST [facility] WBC, Urine 1 0 - 2 /HPF 04/20/2024 9:59 AM EST [facility] RBC, Urine <1 0 - 2 /HPF 04/20/2024 9:59 AM EST [facility] Hyaline Casts, Urine 0 0 - 2 /LPF 04/20/2024 9:59 AM EST [facility] Squamous Epithelial Cells, Urine 2 /HPF 04/20/2024 9:59 AM EST [facility] Bacteria, Urine None None /HPF /HPF 04/20/2024 9:59 AM EST [facility] Mucus, Urine Rare /LPF 04/20/2024 9:59 AM EST [facility] Urine Urine specimen collection, clean catch / Unknown Non-Blood Collection / Unknown 04/20/2024 9:23 AM EST 04/20/2024 9:39 AM EST us Alonzo Persaud MD LAB URINE ORDERABLES Final Result [facility] [address] [place] [address], * (ABNORMAL) DNA Antibody (ds) Crithidia IFA w/Reflex (04/20/2024 9:23 AM EST) Only the most recent of2 resultswithin the time period is included. DNA Ab(ds) Crithidia, IFA Positive(A ) Negative 04/23/2024 12:26 PM EST [facility] ([place]) Blood Structure of peripheral vein / Unknown Venipuncture / Unknown 04/20/2024 9:23 AM EST 04/20/2024 9:38 AM EST Narrative [facility] - 04/23/2024 12:26 PM EST [facility] Received Date: Alonzo Persaud MD LAB BLOOD ORDERABLES Final Result Performing Organization Address City/[facility]/ZIP Co de Phone Number [facility] [address] [facility] [address]rd [facility], [place] [address], [place] [phone] [facility] [employer] [address] [place] [address], [place] * Procalcitonin (04/20/2024 9:23 AM EST) Procalcitonin <0.20 <0.20 ng/mL 04/22/2024 2:53 PM EST [facility] [id number] Comment: Verified by repeat analysis. Procalcitonin levels above 2.00 ng/mL on the first day of ICU admission represent a high risk for progression to severe sepsis and/or septic shock. Procalcitonin Comment See Comments 04/22/2024 2:53 PM EST [email or web address] [id number] Comment: Interpretation Guidelines Diagnosis of systemic [...] - 04/22/2024 2:53 PM EST [facility] Received Date:[id number] us Alonzo Persaud MD LAB BLOOD ORDERABLES Final Result Performing Organization Address [facility]/ZIP Co de Phone Number [facility]AR[facility] [address], [place] [address], [place] [phone] [facility] [address] [place] [address], [place] [phone] * (ABNORMAL) CBC Auto Differential (04/20/2024 9:23 AM EST) Only the most recent of2 resultswithin the time period is included. WBC 12.4(H) 3.8 - 10.8 10*3/uL 04/20/2024 9:47 AM [facility] RBC 4.34 3.80 - 5.10 10*6/uL 04/20/2024 9:47 AM [facility] Hemoglobin 12.3 11.7 - 15.5 g/dL 04/20/2024 9:47 AM [facility] Hematocrit 39.1 35.0 - 45.0 % 04/20/2024 9:47 AM [facility] MCV 90.1 80.0 - 100.0 fL 04/20/2024 9:47 AM [facility] MCH 28.3 27.0 - 33.0 pg 04/20/2024 9:47 AM [facility] MCHC 31.5(L) 32.0 - 36.0 g/dL 04/20/2024 9:47 AM [facility] RDW 13.4 11.0 - 15.0 % 04/20/2024 9:47 AM [facility] Platelets 351 140 - 400 10*3/uL 04/20/2024 9:47 AM [facility] MPV 9.4 7.5 - 12.5 fL 04/20/2024 9:47 AM [facility] Neutrophil % 88.3 % 04/20/2024 9:47 AM [facility] Immature Grans % 1.1(H) 0.0 - 0.9 % 04/20/2024 9:47 AM EST [facility] Lymphocyte % 6.1 % 04/20/2024 9:47 AM EST [facility] Monocyte % 4.1 % 04/20/2024 9:47 AM EST [facility] Eosinophil % 0.2 % 04/20/2024 9:47 AM EST [facility] Basophil % 0.2 % 04/20/2024 9:47 AM [facility] Neutrophil # 10.92(H) 1.50 - 7.80 10*3/uL 04/20/2024 9:47 AM EST [facility] Immature Grans # 0.14(H) <=0.03 10*3/uL 04/20/2024 9:47 AM EST [facility] Lymphocyte # 0.80(L) 0.85 - 3.90 10*3/uL 04/20/2024 9:47 AM EST [facility] Monocyte # 0.50 0.20 - 0.95 10*3/uL 04/20/2024 9:47 AM EST [facility] Eosinophil # <0.03 0.02 - 0.50 10*3/uL 04/20/2024 9:47 AM EST [facility] Basophil # <0.03 0.00 - 0.20 10*3/uL 04/20/2024 9:47 AM [facility] nRBC % 0.0 /100 WBCs 04/20/2024 9:47 AM [facility] nRBC # <0.01 <0.01 10*3/uL 04/20/2024 9:47 AM [facility] Blood Structure of peripheral vein / Unknown Venipuncture / Unknown 04/20/2024 9:23 AM EST 04/20/2024 9:38 AM EST Alonzo Persaud MD LAB BLOOD ORDERABLES Final Result Performing Organization Address [facility] de Phone Number [facility] [address] [place] [address], * Microalbumin, Random Urine with Creatinine (04/20/2024 9:23 AM EST) Only the most recent of2 resultswithin the time period is included. Microalbumin, Urine <2.0 mg/dL 04/20/2024 12:17 PM EST [facility] Creatinine, Urine 186 15 - 278 mg/dL 04/20/2024 12:17 PM EST [facility] Microalb/Creat Ratio, Random Urine 04/20/2024 12:17 PM EST [facility] Comment: < 1.0 mcg/mgCr Microalbumin Reference Range: Normal ? <30 mcg/mg Creatinine Microalbuminuria ? 30-300 mcg/mg Creatinine Clinical Albuminuria >300 mcg/mg Creatinine Reference: ADA Guideline. Diabetes Care. 2004;27 (suppl 1) Urine Voided urine specimen / Unknown Non-Blood Collection / Unknown 04/20/2024 9:23 AM EST 04/20/2024 9:39 AM EST Alonzo Persaud MD LAB URINE ORDERABLES Final Result Performing Organization Address [facility] Co de Phone Number [facility] [address] [place] [address], [facility] [address] [place] [address], * (ABNORMAL) DNA Antibody, Double-Stranded (04/20/2024 9:23 AM EST) Only the most recent of2 resultswithin the time period is included. DNA (Ds) Antibody 7(H) IU/mL 025 9:50 PM EST [facility] Comment: ? IU/mL ? Interpretation ? < or = 4 ?Negative ? 5-9 ? Indeterminate ? > or = 10 ?? Positive Blood Structure of peripheral vein / Unknown Venipuncture / Unknown 04/20/2024 9:23 AM EST 04/20/2024 9:38 AM EST Narrative [facility] - 04/21/2024 9:50 PM EST [facility] Received Date: Alonzo Persaud MD LAB BLOOD ORDERABLES Final Result Performing Organization Address [facility] de Phone Number [facility] [place] [address] [facility] 3rd Floor, [place] [address], [place] [phone] Poll Everywhere [facility] [address] [facility] 3rd Floor, [place] [address], [place] [phone] * Sedimentation Rate (04/20/2024 9:23 AM EST) Only the most recent of2 resultswithin the time period is included. Sed Rate 23 <30 mm/Hr mm/Hr 04/20/2024 10:04 AM EST [facility] Blood Structure of peripheral vein / Unknown Venipuncture / Unknown 04/20/2024 9:23 AM EST 04/20/2024 9:38 AM EST Alonzo Persaud MD LAB BLOOD ORDERABLES Final Result Performing Organization Address [facility] Co de Phone Number [facility] [address] [place] [address], * Complement C3 (04/20/2024 9:23 AM EST) Only the most recent of2 resultswithin the time period is included. Complement Component C3C 101 83 - 193 mg/dL 04/21/2024 4:22 AM EST Poll Everywhere [facility] Blood Structure of peripheral vein / Unknown Venipuncture / Unknown 04/20/2024 9:23 AM EST 04/20/2024 9:38 AM EST Narrative [facility] - 04/21/2024 4:22 AM EST [facility] Received Date: us Alonzo Persaud MD LAB BLOOD ORDERABLES Final Result [facility] [place] [address], [place] [address], [place] [phone] Poll Everywhere [facility] [address], [place] [address], [place] [phone] * Complement C4 (04/20/2024 9:23 AM EST) Only the most recent of2 resultswithin the time period is included. Complement Component C4C 21 15 - 57 mg/dL 04/21/2024 4:22 AM EST [facility] Blood Structure of peripheral vein / Unknown Venipuncture / Unknown 04/20/2024 9:23 AM EST 04/20/2024 9:38 AM EST Narrative [facility] - 04/21/2024 4:22 AM EST [facility] Received Date: us Alonzo Persaud MD LAB BLOOD ORDERABLES Final Result Performing Organization Address [facility]/ZIP Co de Phone Number [facility] [address] [facility] [address]rd [facility], [place] [address], [place] [phone] [facility] [address], [place] [address], [place] [phone] * (ABNORMAL) C-Reactive Protein (04/20/2024 9:23 AM EST) Only the most recent of2 resultswithin the time period is included. C Reactive Protein 10.5(H) <=9.9 mg/L 04/20/2024 10:34 AM EST [facility] Blood Structure of peripheral vein / Unknown Venipuncture / Unknown 04/20/2024 9:23 AM EST 04/20/2024 9:38 AM EST Alonzo Persaud MD LAB BLOOD ORDERABLES Final Result Performing Organization Address [facility] Co de Phone Number [facility] [address] [place] [address], [place] * (ABNORMAL) Creatine Kinase (04/20/2024 9:23 AM EST) Only the most recent of2 resultswithin the time period is included. CK 35(L) 38 - 206 U/L 04/20/2024 10:34 AM EST [facility] Blood Structure of peripheral vein / Unknown Venipuncture / Unknown 04/20/2024 9:23 AM EST 04/20/2024 9:38 AM EST Alonzo Persaud MD LAB BLOOD ORDERABLES Final Result Performing Organization Address [facility] Co de Phone Number [facility] [address] [place] [address], [place] * (ABNORMAL) Comprehensive Metabolic Panel (04/20/2024 9:23 AM EST) Only the most recent of2 resultswithin the time period is included. NA 139 135 - 145 mmol/L 04/20/2024 10:34 AM EST [facility] K 3.8 3.5 - 5.3 mmol/L 04/20/2024 10:34 AM EST [facility] Cl 105 98 - 107 mmol/L 04/20/2024 10:34 AM EST [facility] CO2 24 22 - 32 mmol/L 04/20/2024 10:34 AM [facility] Anion Gap 10 5 - 15 04/20/2024 10:34 AM [facility] Glucose 177(H) 65 - 99 mg/dL 04/20/2024 10:34 AM [facility] Creatinine 0.73 0.50 - 1.20 mg/dL 04/20/2024 10:34 AM [facility] Calcium 8.4(L) 8.6 - 10.5 mg/dL 04/20/2024 10:34 AM [facility] Total Protein 6.9 6.0 - 8.0 g/dL 04/20/2024 10:34 AM [facility] Albumin 3.4(L) 3.5 - 5.2 g/dL 04/20/2024 10:34 AM [facility] Bilirubin, Total 0.3 0.2 - 1.2 mg/dL 04/20/2024 10:34 AM [facility] Alkaline Phosphatase 50 35 - 129 U/L 04/20/2024 10:34 AM [facility] AST 14 10 - 40 U/L 04/20/2024 10:34 AM [facility] ALT 11 10 - 40 U/L 04/20/2024 10:34 AM [facility] BUN 24(H) 7 - 23 mg/dL 04/20/2024 10:34 AM [facility] eGFR >90 >=60 mL/min/1. 73m2 04/20/2024 10:34 AM [facility] Comment:The estimated glomer ular [...] - 4.2 g/dL 04/20/2024 10:34 AM EST [facility] A/G Ratio 1.0(L) 1.5 - 3.0 04/20/2024 10:34 AM EST [facility] Blood Structure of peripheral vein / Unknown Venipuncture / Unknown 04/20/2024 9:23 AM EST 04/20/2024 9:38 AM EST Alonzo Persaud MD LAB BLOOD ORDERABLES Final Result Performing Organization Address [facility] Co de Phone Number [facility] [address] [place] [address], * Interpretation (03/23/2024 4:48 PM EST) FELI Specific Antibody Interpretation See Comments 03/25/2024 12:23 PM EST [facility] Comment: The presence of these two antibodies [...] EST 03/23/2024 5:31 PM EST Narrative [facility] - 03/25/2024 12:23 PM EST [facility] Received Date: Alonzo Persaud MD LAB BLOOD ORDERABLES Final Result Performing Organization Address [facility]/ZIP Co de Phone Number [facility] [address], [place] [address], [place] [phone] [facility] [address] [place] [address], [place] [address], * (ABNORMAL) Stage 1 (03/23/2024 4:48 PM EST) DNA (Ds) Antibody 11(H) IU/mL 025 12:23 PM EST [facility] Comment: ? IU/mL ? Interpretation ? < or = 4 ?Negative ? 5-9 ? Indeterminate ? > or = 10 ?? Positive Sm Antibody <1.0 NEG <1.0 NEG AI 03/25/2024 12:23 PM EST [facility] SM/MATERIAL DISPOSITION INSPECTOR Antibody <1.0 NEG <1.0 NEG 03/25/2024 12:23 PM EST [facility] MATERIAL DISPOSITION INSPECTOR Antibody <1.0 NEG <1.0 NEG 03/25/2024 12:23 PM EST [facility] Chromatin Antibody 3.0 POS(A) <1.0 NEG AI 03/25/2024 12:23 PM [employer] Comment: ANTIBODY PREVALENCE IN TIER 1 ? [...] Sjogren's syndrome and 8% polymyositis. ?? Ribonucleoprotein (MATERIAL DISPOSITION INSPECTOR) antibodies are to MATERIAL DISPOSITION INSPECTOR A and/or MATERIAL DISPOSITION INSPECTOR 68kD proteins; antibodies to one or both are present in >80% MCTD, 22% to 48% SLE, 14% systemic sclerosis, 12% Sjogren's and 8% polymyositis. ?? Sm/MATERIAL DISPOSITION INSPECTOR antibodies are directed to epitopes formed in a complex of Sm and MATERIAL DISPOSITION INSPECTOR; antibodies to the Sm/MATERIAL DISPOSITION INSPECTOR complex are present in 54% to 94% MCTD, 30% SLE, 4% systemic sclerosis, and 9% Sjogren's and polymyositis. ?? Sm antibody is present in 20% to 30% SLE, 8% MCTD, 10% polymyositis, 0% systemic sclerosis and 4% Sjogren's syndrome. ?? Double stranded DNA, Chromatin, Ribonucleoprotein, Sm/MATERIAL DISPOSITION INSPECTOR complex and Sm antibodies are present in <2% of normal blood donors. ?? The [facility] does not rule out autoimmune disease characterized by other autoantibody specificities such as rheumatoid arthritis, autoimmune hepatitis, primary biliary cirrhosis, autoimmune thyroiditis, Darrel's disease, pernicious anemia, autoimmune neuropathies, vasculitis, celiac disease and bullous disease. Please contact your local [facility] if you are interested in additional testing. Blood Structure of peripheral vein / Unknown Venipuncture / Unknown 03/23/2024 4:48 PM EST 03/23/2024 5:31 PM EST Narrative [facility] - 03/25/2024 12:23 PM EST [facility] Received Date: Alonzo Persaud MD LAB BLOOD ORDERABLES Final Result [facility] [address] [facility] 3rd Floor, [place] [address], [facility] 200 [facility] 3rd Floor, [place] [address], * (ABNORMAL) FELI, Titer and Pattern (03/23/2024 4:48 PM EST) Pathologist [facility] FELI Titer 1 1:1280(H) titer 03/30/2024 4:22 PM EST [facility] Comment: ?Reference Range ?<1:40 ?Negative ?1:40-1:80 ?Low Antibody Level ?>1:80 ?Elevated Antibody Level FELI Pattern 1 Nuclear, Homogeneo (A) 03/30/2024 4:22 PM EST [facility] Comment: Homogeneous pattern is associated with systemic lupus erythematosus (SLE), drug-induced lupus and juvenile idiopathic arthritis. AC-1: Homogeneous International Consensus on FELI Patterns (https://doi.org/10.1515/zomy-3437-9405) Blood Structure of peripheral vein / Unknown Venipuncture / Unknown 03/23/2024 4:48 PM EST 03/23/2024 5:31 PM EST Narrative [facility] 03/30/2024 4:22 PM EST [facility] Received Date: Alonzo Persaud MD LAB BLOOD ORDERABLES Final Result [facility] [address] [facility] 3rd Floor, [place] [address], [facility] 200 [facility] 3rd Floor, [place] [address], * (ABNORMAL) Alzada & Lambda, Free w/Ratio (03/23/2024 4:48 PM EST) [employer] Light Chain, Free, Serum 99.6(H) 3.3 - 19.4 mg/L 03/24/2024 3:56 PM EST [facility] Lambda Light Chain, Free, Serum 60.2(H) 5.7 - 26.3 mg/L 03/24/2024 3:56 PM EST [facility] Alzada/Lambda Light Chains Free With Ratio 1.65 0.26 - 1.65 03/24/2024 3:56 PM EST [facility] Comment: Free kappa/lambda ratio in serum [...] EST 03/23/2024 5:31 PM EST Narrative [facility] 03/24/2024 3:56 PM EST [facility] Received Date: Alonzo Persaud MD LAB BLOOD ORDERABLES Final Result [facility] [address] [facility] [facility] [address] [facility], [place] [address], Poll Everywhere [facility] [address], [place] [address], * (ABNORMAL) Protein Electrophoresis w/Reflex to Immunofixation, Serum (03/23/2024 4:48 PM EST) Protein, Total 6.5 6.1 - 8.1 g/dL 03/25/2024 7:04 AM EST Poll Everywhere [facility] Albumin 3.0(L) 3.8 - 4.8 g/dL 03/25/2024 7:04 AM EST Poll Everywhere [facility] Alpha 1 Globulin 0.5(H) 0.2 - 0.3 g/dL 03/25/2024 7:04 AM EST [facility] Alpha 2 Globulin 0.9 0.5 - 0.9 g/dL 03/25/2024 7:04 AM EST Poll Everywhere [facility] Beta 1 Globulin 0.4 0.4 - 0.6 g/dL 03/25/2024 7:04 AM EST Poll Everywhere [facility] Beta 2 Globulin 0.4 0.2 - 0.5 g/dL 03/25/2024 7:04 AM EST Poll Everywhere [facility] Gamma Globulin 1.2 0.8 - 1.7 g/dL 03/25/2024 7:04 AM EST [facility] Interpretation See Comments 03/25/2024 7:04 AM EST [facility] Comment: Pattern consistent with an acute phase reaction Blood Structure of peripheral vein / Unknown Venipuncture / Unknown 03/23/2024 4:48 PM EST 03/23/2024 5:31 PM EST Narrative [facility] - 03/25/2024 7:04 AM EST [facility] Received Date: Alonzo Persaud MD LAB BLOOD ORDERABLES Final Result [facility] [place] 200 [facility] 3rd Floor, [place] [address], [place] [phone] Poll Everywhere [facility] [address], [place] [address], [place] [phone] * Cyclic Citrullinated Peptide (CCP) Antibody, IgG (03/23/2024 4:48 PM EST) Cyclic Citrullinated Peptide (CCP) Ab (IgG) <16 UNITS 03/25/2024 2:15 PM EST [facility] Comment: Reference Range Negative: ?<20 Weak Positive: ? 20-39 Moderate Positive: ?? 40-59 Strong Positive: ? >59 Blood Structure of peripheral vein / Unknown Venipuncture / Unknown 03/23/2024 4:48 PM EST 03/23/2024 5:31 PM EST Narrative [facility] - 03/25/2024 2:15 PM EST [facility] Received Date: Alonzo Persaud MD LAB BLOOD ORDERABLES Final Result [facility] 200 [facility] 3rd Floor, [place] [address], [place] [phone] [facility] 200 [facility] 3rd Floor, [place] [address], [place] [phone] * Lyme Antibody Screen w/Reflex to Blot (03/23/2024 4:48 PM EST) Lyme Ab Screen <0.90 index 03/24/2024 11:29 AM EST Poll Everywhere [facility] Comment: ? Index ?Interpretation ? [...] BLOOD ORDERABLES Final Result [facility] 200 [facility] 3rd Floor, [place] [address], [place] [phone] [facility] [address], [place] [address], [place] [phone] * (ABNORMAL) FELI Screen, IFA, w/Reflex to Titer & Pattern (03/23/2024 4:48 PM EST) FELI Screen, IFA POSITIVE (A) NEGATIVE 03/30/2024 4:21 PM EST [facility] Comment: FELI IFA is a first line screen for detecting the presence of up to approximately 150 autoantibodies in various autoimmune diseases. A positive FELI IFA result is suggestive of autoimmune disease and reflexes to titer and pattern. Further laboratory testing may be considered if clinically indicated. For additional information, please refer to http://education.FlexEnergy/faq/OHN421 (This link is being provided for informational/ educational purposes only.) ?? Blood Structure of peripheral vein / Unknown Venipuncture / Unknown 03/23/2024 4:48 PM EST 03/23/2024 5:31 PM EST Narrative [facility] [place] - 03/30/2024 4:21 PM EST [facility] Received Date: Alonzo Persaud MD LAB BLOOD ORDERABLES Final Result [facility] 200 [facility] [address] [facility], [place] [address], [place] [phone] [facility] [address], [place] [address], [place] [phone] * Urine Culture, Routine (03/23/2024 4:48 PM EST) Pathologist [facility] Culture Mixed genital zachary isolated. These superficial bacteria are not indicative of a urinary tract infection. No further organism identification is warranted on this specimen. 03/24/2024 5:21 PM EST [facility] Urine Urine specimen collection, clean catch / Unknown Non-Blood Collection / Unknown 03/23/2024 4:48 PM EST 03/23/2024 6:19 PM EST Narrative [facility] - 03/24/2024 5:21 PM EST [facility] Received Date: MICRO NUMBER: [id number] SPECIMEN QUALITY: Adequate SOURCE: URINE CLEAN CATCH STATUS: FINAL If clinically indicated, recollect clean-catch, mid-stream urine and transfer immediately to Urine Culture Transport Tube. us Alonzo Persaud MD LAB MICROBIOLOGY - GENERAL ORDERABLES Final Result [facility] [address], [place] [address], [place] [phone] Poll Everywhere [facility] [address], [place] [address], [place] [phone] * (ABNORMAL) FELI Specific Antibody w/Reflex to [place] (03/23/2024 4:48 PM EST) FELI Screen, Immunoassay POSITIVE (A) NEGATIVE 03/25/2024 12:23 PM EST Poll Everywhere [facility] Comment: A positive FELI Multiplex indicates the presence of detectable antibodies to one or more of the component analytes consisting of double stranded DNA (dsDNA), chromatin, ribonucleoprotein (MATERIAL DISPOSITION INSPECTOR), Mojica/MATERIAL DISPOSITION INSPECTOR (Sm/MATERIAL DISPOSITION INSPECTOR), Mojica (Sm), SS-A, SS-B, Bozena-1, centromere B, Scl-70 and ribosomal P. Further laboratory testing may be considered if clinically indicated. For additional information, please refer to http://education.FlexEnergy/faq/NBM964 (This link is being provided for informational/ educational purposes only.) ?? Blood Structure of peripheral vein / Unknown Venipuncture / Unknown 03/23/2024 4:48 PM EST 03/23/2024 5:31 PM EST Narrative [facility] - 03/25/2024 12:23 PM EST [facility] Received Date: us Alonzo Persaud MD LAB BLOOD ORDERABLES Final Result [facility] [address], [place] [address], [place] [phone] Poll Everywhere [facility] [address] 3rd [address], [place] [address], [place] [phone] * (ABNORMAL) Lactate Dehydrogenase (03/23/2024 4:48 PM EST) LDH 285(H) 135 - 225 U/L 03/23/2024 6:41 PM EST [facility] Blood Structure of peripheral vein / Unknown Venipuncture / Unknown 03/23/2024 4:48 PM EST 03/23/2024 5:31 PM EST Alonzo Persaud MD LAB BLOOD ORDERABLES Final Result Performing Organization Address City/[facility]/ZIP Co de Phone Number [facility] [address] [place] [address], [place] * Gamma Glutamyl Transferase (03/23/2024 4:48 PM EST) GGT 35 5 - 61 U/L 03/23/2024 6:09 PM EST [facility] Blood Structure of peripheral vein / Unknown Venipuncture / Unknown 03/23/2024 4:48 PM EST 03/23/2024 5:31 PM EST Alonzo Persaud MD LAB BLOOD ORDERABLES Final Result Performing Organization Address City/[facility]/ZIP Co de Phone Number [facility] [address] [place] [address], [place] * (ABNORMAL) IgA (03/23/2024 4:48 PM EST) Immunoglobulin A 319(H) 47 - 310 mg/dL 03/24/2024 8:01 AM EST [facility] Blood Structure of peripheral vein / Unknown Venipuncture / Unknown 03/23/2024 4:48 PM EST 03/23/2024 5:31 PM EST Narrative [facility] [place] - 03/24/2024 8:01 AM EST [facility] Received Date: Alonzo Persaud MD LAB BLOOD ORDERABLES Final Result [facility] [place] 200 [facility] 3rd Floor, [place] [address], [place] [phone] Poll Everywhere [facility] 200 [facility] 3rd Floor, [place] [address], [place] [phone] * IgM (03/23/2024 4:48 PM EST) Immunoglobulin M 80 50 - 300 mg/dL 03/24/2024 8:01 AM EST Poll Everywhere [facility] Blood Structure of peripheral vein / Unknown Venipuncture / Unknown 03/23/2024 4:48 PM EST 03/23/2024 5:31 PM EST Narrative [facility] [place] - 03/24/2024 8:01 AM EST [facility] Received Date: Alonzo Persaud MD LAB BLOOD ORDERABLES Final Result Performing Organization Address City/[facility]/ZIP Co de Phone Number [facility] [place] 200 [facility] 3rd Floor, [place] [address], [place] [phone] Poll Everywhere [facility] 200 [facility] 3rd Floor, [place] [address], [place] [phone] * IgG (03/23/2024 4:48 PM EST) IgG, Serum 1448 600 - 1640 mg/dL 03/24/2024 8:01 AM EST Poll Everywhere [facility] Blood Structure of peripheral vein / Unknown Venipuncture / Unknown 03/23/2024 4:48 PM EST 03/23/2024 5:31 PM EST Narrative [facility] [place] - 03/24/2024 8:01 AM EST [facility] Received Date: us Alonzo Persaud MD LAB BLOOD ORDERABLES Final Result [facility] [place] 200 [facility] 3rd Floor, [place] [address], [place] [phone] Poll Everywhere [address]rd [address], [place] [address], [place] [phone] * Ferritin (03/23/2024 4:48 PM EST) Ferritin 279.0 11.0 - 306.0 ng/mL 03/23/2024 6:09 PM EST [facility] Blood Structure of peripheral vein / Unknown Venipuncture / Unknown 03/23/2024 4:48 PM EST 03/23/2024 5:31 PM EST us Alonzo Persaud MD LAB BLOOD ORDERABLES Final Result Performing Organization Address City/State/[facility] Co de Phone Number [facility] [address] [place] [address], [place] * XR Hips Bilateral 5+ vw [...] obtain the completed interpretation. ? Workstation ID: [id number] Narrative 03/23/2024 6:11 PM EST COMPARISON: None. ?? Resulting Agency Comment [id number] Procedure Note Augusto Buck MD - 03/23/2024 [...] possible to obtain thecompleted interpretation. Workstation ID: [id number] us Alonzo Persaud MD IMG XR PROCEDURES [...] obtain the completed interpretation. ? Workstation ID: [id number] Narrative 03/23/2024 6:11 PM EST COMPARISON: None. ?? Resulting Agency Comment [id number] Procedure Note Augusto Buck MD - 03/23/2024 [...] possible to obtain thecompleted interpretation. Workstation ID: [id number] us Alonzo Persaud MD IMG XR PROCEDURES [...] obtain the completed interpretation. ? Workstation ID: [id number] Narrative 03/23/2024 6:11 PM EST COMPARISON: None. ?? Resulting Agency Comment [id number] Procedure Note Augusto Buck MD - 03/23/2024 [...] possible to obtain thecompleted interpretation. Workstation ID: [id number] us Alonzo Persaud MD IMG XR PROCEDURES [...] obtain the completed interpretation. ? Workstation ID: [id number] Narrative 03/23/2024 6:11 PM EST COMPARISON: None. ?? Resulting Agency Comment [id number] Procedure Note Augusto Buck MD - 03/23/2024 [...] possible to obtain thecompleted interpretation. Workstation ID: [id number] us Alonzo Persaud MD IMG XR PROCEDURES Final Re sult * Hepatitis C Antibody w/Reflex to HCV RNA, Quantitative PCR (06/04/2022 5:43 PM EDT) Hepatitis C Antibody NON-REACT BETO NON-REACT BETO 06/05/2022 3:44 AM EDT [facility] Signal To Cut-Off 0.02 <1.00 06/05/2022 3:44 AM EDT [facility] Comment: HCV antibody was non-reactive. There is no laboratory evidence of HCV infection. In most cases, no further action is required. However, if recent HCV exposure is suspected, a test for HCV RNA (test code 17473) is suggested. For additional information please refer to http://education.My Single Point/faq/EQA87y4 (This link is being provided for informational/ educational purposes only.) Blood Structure of peripheral vein / Unknown Venipuncture / Unknown 06/04/2022 5:43 PM EDT 06/04/2022 6:08 PM EDT Narrative [facility] - 06/05/2022 3:44 AM EDT [facility] Received Date: us Alonzo Persaud MD LAB BLOOD ORDERABLES Final Result [facility] [address], [place] [address], [facility] 200 [facility] 3rd Floor, [place] [address], [place] [phone] from Last 3 Months or Most Recently Relevant to Health Maintenance Insurance [facility] Care Teams Drop Wire Builder Relationship Specialty Start Date End Date Cristian Chacon MD [address] [place] [address] PCP - General 06/04/22
--- OUTSIDE RECORDS SUMMARY | 2024-05-26 08:31 | XMS_ITS | Encounter Summary ---
Author Organization [employer] Address [address] [facility] 7t [place] [address] Care Team Providers Care Auto Hiker Name Role Phone Cristian Chacon MD Primary Care Prov ider Reason for Visit * Reason Comments Care Coordination Outreach Encounter Details Date Type Department Care Team (Latest Contact Info) Description 04/27/2024 Patient Outreach [facility] PEDS [address] [place], [place] [phone] Cristian Chacon MD [address] [place] [address] Care Coordination (Outreach) Social History Tobacco Use [...] at this time. LVM introducing herself from [facility] CM Department, reminding patient of initial [...] documented as of this encounter Care Teams Auto Hiker Relationship Specialty Start Date End Date Cristian Chacon MD [address] [place] [address] PCP - General Internal Medicine 03/17/19 Ivy Payne Rn CvicuGraduate Fellow 11/26/23 documented as of this encounter
--- OUTSIDE RECORDS SUMMARY | 2024-05-26 08:31 | XMS_ITS | Encounter Summary ---
Author Organization [employer] Address [address] [facility] 7t [place] [address] Care Team Providers Care Aging Box Hand Name Role Phone Cristian Chacon MD Primary Care Prov ider Reason for Visit * Reason Comments Care Coordination Outreach Encounter Details Date Type Department Care Team (Latest Contact Info) Description 05/04/2024 Patient Outreach [facility] MED & PEDS [address] [place], [place] [phone] Cristian Chacon MD [address] [place] [address] Care Coordination (Outreach) Social History Tobacco Use [...] at this time. LVM introducing herself from [facility] CM Department, reminding patient of initial [...] documented as of this encounter Care Teams Aging Box Hand Relationship Specialty Start Date End Date Cristian Chacon MD [address] [place] [address] PCP - General Internal Medicine 03/17/19 Ivy Payne Director Of SleepWater Taxi Operator 11/26/23 documented as of this encounter
--- OUTSIDE RECORDS SUMMARY | 2024-05-26 08:31 | XMS_ITS | Encounter Summary ---
Author Organization [employer] Address [address] [place] [address] Care Team Providers Care Boston Cutter Name Role Phone Cristian Chacon MD Primary Care Prov ider Reason for Visit * Reason Onset Date Comments ER Follow-up 05/04/2024 Encounter Details Date Type Department Care Team ([facility] st Contact Info) Description 05/04/2024 Telephone [facility] MEDICINE [address] [place] [address] Cristian Chacon MD [address] [place] [address] ER Follow-up Social History Tobacco Use Types [...] pt to triage, spoke to pt through [employer] Warehouse Supervisor. pt states seen ER yesterday at [facility], for chest pain, cough, sob, and diagnosed [...] or new concerns. given appt Thursday with PSYCHIATRIC provider at 3:30 for exam. pt understands [...] ED visit on : Date: 05/03 Hospital: [facility] Seen for: Chest Pain, Asthma, Neck Pain, Lung hurting Symptomatic Yes *if yes message should go to Triage Patient advised will forward to team nurse for follow up [phone] [facility] [phone] [facility] Health (Geodetic Survey Director) documented in this encounter Plan of Treatment Not on file documented as of this encounter Visit Diagnoses Not on filedocumented in this encounter Additional Health Concerns Assessment Noted Time PHQ-9 Depression Total Score: 16 024 1:19 PM EDT documented as of this encounter Care Teams Boston Cutter Relationship Specialty Start Date End Date Cristian Chacon MD [address] [place] [address] PCP - General Internal Medicine 03/17/19 Iyv Payne Contracting OfficerFire Patrol 11/26/23 documented as of this encounter
--- OUTSIDE RECORDS SUMMARY | 2024-05-26 08:31 | XMS_ITS | Encounter Summary ---
Author Organization [employer] Address [address] [facility] [address] [place] [address] Care Team Providers Care Senior Advisor Name Role Phone Cristian Chacon MD Primary Care Prov ider Encounter Details Date Type Department Care Team ([facility] st Contact Info) Description 04/26/2024 11:00 AM EST Office Visit [facility] CHC MED & PEDS [address] [place], [place] [phone] Aida Rae MD [address] [place], [place] [phone] Moderate persistent asthma without complication (Primary Dx) [...] as of this encounter Care Teams Senior Advisor Relationship Specialty Start Date End Date Cristian Chacon MD [address] [place] [address] PCP - General Internal Medicine 03/17/19 Ivy Payne Assurance Services Manager Health CareProject Coordinator Rn 11/26/23 documented as of this encounter
--- OUTSIDE RECORDS SUMMARY | 2024-05-26 08:31 | XMS_ITS | Encounter Summary ---
Author Organization [employer] Address [address] [facility] 7t [place] [address] Care Team Providers Care Spring Tacker Name Role Phone Cristian Chacon MD Primary Care Prov ider Reason for Visit * Reason Onset Date Comments status check 05/11/2024 Encounter Details Date Type Department Care Team ([facility] st Contact Info) Description 05/11/2024 Telephone [facility] CHC MED & PEDS [address] [place], [place] [phone] Cristian Chacon MD [address] [place] [address] status check Social History Tobacco Use Types [...] documented as of this encounter Care Teams Spring Tacker Relationship Specialty Start Date End Date Cristian Chacon MD [address] [place] [address] PCP - General Internal Medicine 03/17/19 Ivy Payne Construction MgrSubstation Maintenance Technician 11/26/23 documented as of this encounter
--- OUTSIDE RECORDS SUMMARY | 2024-05-26 08:31 | XMS_ITS | Clinical Summary ---
Author Organization [facility] Address [address] [place] [address] Phone Care Team Providers Care Poultry Tender Name Role Phone Cristian Chacon Primary Care [...] 10:47 PM EST - 04/14/2024 3:00 AM [facility] Emergency [address] [place] [phone] Seth Jason MD URI due to influenza A virus (Primary Dx); Chest wall pain Discharge Disposition: Home or Self Care 03/19/2024 1:30 PM EST - 03/19/2024 8:28 PM [facility] Emergency [address] [place] [phone] Ran Adams MD Goebel, Mathew, MD Other [...] of3 resultswithin the time period is included. [facility] High Sensitivity Troponin I 9 <=54 ng/L LAB CHEMISTRY METHOD 04/14/2024 1:47 AM EST [facility] Blood Venous blood specimen / Unknown Venipuncture / Unknown 04/14/2024 12:55 AM EST 04/14/2024 1:22 AM EST [facility] LAB - 04/14/2024 1:47 AM EST High levels of biotin in samples may falsely decrease hsTroponin values. ??Use caution when interpreting hsTroponin results in patients taking biotin who exhibit renal impairment (eGFR <60) or in patients taking more than 20 mg/day of biotin. us Ashley NELSON LAB BLOOD ORDERABLES Final Resul t [facility] [address] [place] [address], * (ABNORMAL) CBC auto differential (04/14/2024 12:55 AM EST) Only the most recent of2 resultswithin the time period is included. [facility] WBC 5.7 4.8 - 10.8 K/mcL LAB HEMETOLOGY METHOD 04/14/2024 1:27 AM EST [facility] RBC 4.10 3.80 - 4.80 M/mcL LAB HEMETOLOGY METHOD 04/14/2024 1:27 AM [facility] Hemoglobin 11.9 11.5 - 16.0 g/dL LAB HEMETOLOGY METHOD 04/14/2024 1:27 AM [facility] Hematocrit 37.2 35.0 - 47.0 % LAB HEMETOLOGY METHOD 04/14/2024 1:27 AM [facility] MCV 90.7 79.0 - 98.0 FL LAB HEMETOLOGY METHOD 04/14/2024 1:27 AM [facility] MCH 29.0 27.0 - 32.0 pcg LAB HEMETOLOGY METHOD 04/14/2024 1:27 AM [facility] MCHC 32.0 32.0 - 37.0 g/dL LAB HEMETOLOGY METHOD 04/14/2024 1:27 AM [facility] RDW 13.9 11.0 - 15.0 % LAB HEMETOLOGY METHOD 04/14/2024 1:27 AM [facility] Platelets 326 130 - 400 K/mcL LAB HEMETOLOGY METHOD 04/14/2024 1:27 AM [facility] MPV 9.3 7.0 - 11.0 FL LAB HEMETOLOGY METHOD 04/14/2024 1:27 AM [facility] NRBC 0.0 <1.0 % LAB HEMETOLOGY METHOD 04/14/2024 1:27 AM [facility] NRBC Absolute 0.00 <0.10 K/mcL LAB HEMETOLOGY METHOD 04/14/2024 1:27 AM [facility] Neutrophils Relative 80.1 % LAB HEMETOLOGY METHOD 04/14/2024 1:27 AM [facility] Lymphocytes Relative 11.2 % LAB HEMETOLOGY METHOD 04/14/2024 1:27 AM [facility] Monocytes Relative 3.9 % LAB HEMETOLOGY METHOD 04/14/2024 1:27 AM [facility] Eosinophils Relative 3.5 % LAB HEMETOLOGY METHOD 04/14/2024 1:27 AM [facility] Basophils Relative 0.4 % [...] K/mcL LAB HEMETOLOGY METHOD 04/14/2024 1:27 AM [facility] Eosinophils Absolute 0.20 0.00 - 0.50 K/mcL LAB HEMETOLOGY METHOD 04/14/2024 1:27 AM EST [facility] Basophils Absolute 0.02 0.00 - 0.20 K/mcL LAB HEMETOLOGY METHOD 04/14/2024 1:27 AM [facility] Immature Granulocytes Absolute 0.05(H) 0.00 - 0.03 K/mcL LAB HEMETOLOGY METHOD 04/14/2024 1:27 AM [facility] Blood Venous blood specimen / Unknown Venipuncture / Unknown 04/14/2024 12:55 AM EST 04/14/2024 1:22 AM EST us Yotam Block PA LAB BLOOD ORDERABLES Final Resul t [facility] [address] [place] [address], * Lipase (04/14/2024 12:55 AM EST) Only the most recent of2 resultswithin the time period is included. Lipase 58 13 - 75 unit/L LAB CHEMISTRY METHOD 04/14/2024 2:14 AM [facility] Blood Venous blood specimen / Unknown Venipuncture / Unknown 04/14/2024 12:55 AM EST 04/14/2024 1:22 AM EST us Ashley NELSON LAB BLOOD ORDERABLES Final Resul t [facility] [address] [place] [address], [place] [phone] * (ABNORMAL) Comprehensive metabolic panel (04/14/2024 12:55 AM EST) Only the most recent of2 resultswithin the time period is included. Sodium 135 133 - 145 mmol/L LAB CHEMISTRY METHOD 04/14/2024 2:14 AM [facility] Potassium 4.2 3.5 - 5.5 mmol/L LAB CHEMISTRY METHOD 04/14/2024 2:14 AM [facility] Chloride 101 96 - 110 mmol/L LAB CHEMISTRY METHOD 04/14/2024 2:14 AM [facility] CO2 29 21 - 32 mmol/L LAB CHEMISTRY METHOD 04/14/2024 2:14 AM [facility] Anion Gap 5 3 - 11 LAB CHEMISTRY METHOD 04/14/2024 2:14 AM [facility] Comment:Rechecked. TB 2-13-2 5 Glucose 84 70 - 100 mg/dL LAB CHEMISTRY METHOD 04/14/2024 2:14 AM [facility] BUN 23 5 - 25 mg/dL LAB CHEMISTRY METHOD 04/14/2024 2:14 AM [facility] Creatinine 0.84 0.50 - 1.10 mg/dL LAB CHEMISTRY METHOD 04/14/2024 2:14 AM [facility] eGFR 82 >=60 mL/min/1. 73m2 LAB CHEMISTRY METHOD 04/14/2024 2:14 AM [facility] Comment:Calculation based on the??Chronic Kidney Disease Epidemiology Collaboration (CKD-EPI) equation refit??without adjustment for race. BUN/Creatinine Ratio 27.4 LAB CHEMISTRY METHOD 04/14/2024 2:14 AM [facility] Calcium 9.0 8.5 - 10.5 mg/dL LAB CHEMISTRY METHOD 04/14/2024 2:14 AM [facility] AST (SGOT) 20 10 - 42 unit/L LAB CHEMISTRY METHOD 04/14/2024 2:14 AM [facility] ALT (SGPT) 16 10 - 60 unit/L LAB CHEMISTRY METHOD 04/14/2024 2:14 AM [facility] Alkaline Phosphatase 54 42 - 121 unit/L LAB CHEMISTRY METHOD 04/14/2024 2:14 AM [facility] Total Protein 7.1 6.0 - 8.0 g/dL LAB CHEMISTRY METHOD 04/14/2024 2:14 AM [facility] Albumin 3.1(L) 3.2 - 5.0 g/dL LAB CHEMISTRY METHOD 04/14/2024 2:14 AM [facility] Total Bilirubin 0.4 0.0 - 1.4 mg/dL LAB CHEMISTRY METHOD 04/14/2024 2:14 AM [facility] Blood Venous blood specimen / Unknown Venipuncture / Unknown 04/14/2024 12:55 AM EST 04/14/2024 1:22 AM EST us Ashley NELSON LAB BLOOD ORDERABLES Final Resul t [facility] [address] [place] [address], * ECG 12 lead (04/14/2024 12:41 AM EST) Only the most recent of2 resultswithin the time period is included. Ventricular Rate ECG 102 BPM GEMUSE Atrial Rate 102 BPM GEMUSE P-R Interval 118 ms GEMUSE QRS Duration 66 ms GEMUSE Q-T Interval 326 ms GEMUSE QTc 424 ms GEMUSE P Wave Maurice 37 degrees GEMUSE R Maurice 15 degrees GEMUSE T Maurice 29 degrees GEMUSE ECG Interpretation Sinus tachycardia [...] Signed Date: 04/14/2024 07:59 ET Workstation ID: [id number] Transcribed By: Self Edit Transcribed Date: 04/14/2024 [...] Signed Date: 04/14/2024 07:59 ET Workstation ID: [id number] Transcribed By: Self Edit Transcribed Date: 04/14/2024 07:57 ET Seth Jason MD IMG XR PROCEDURES Final Result * (ABNORMAL) Respiratory virus panel molecular study (04/13/2024 1:02 PM EST) Adenovirus Detection by PCR Not Detected Not Detected LAB MICROBIOLOGY METHOD 04/13/2024 2:09 PM [facility] Influenza B PCR Not Detected Not Detected LAB MICROBIOLOGY METHOD 04/13/2024 2:09 PM [facility] Coronavirus 229E Not Detected Not Detected LAB MICROBIOLOGY METHOD 04/13/2024 2:09 PM EST [facility] Coronavirus HKU1 Not Detected Not Detected LAB MICROBIOLOGY METHOD 04/13/2024 2:09 PM [facility] Coronavirus OC43 Not Detected Not Detected LAB MICROBIOLOGY METHOD 04/13/2024 2:09 PM [facility] Coronavirus NL63 Not Detected Not Detected LAB MICROBIOLOGY METHOD 04/13/2024 2:09 PM [facility] Parainfluenza Virus 1 Not Detected Not Detected LAB MICROBIOLOGY METHOD 04/13/2024 2:09 PM [facility] Parainfluenza Virus 2 Not Detected Not Detected LAB MICROBIOLOGY METHOD 04/13/2024 2:09 PM [facility] Parainfluenza Virus 3 Not Detected Not Detected LAB MICROBIOLOGY METHOD 04/13/2024 2:09 PM [facility] Parainfluenza Virus 4 Not Detected Not Detected LAB MICROBIOLOGY METHOD 04/13/2024 2:09 PM [facility] RSV PCR Not Detected Not Detected LAB MICROBIOLOGY METHOD 04/13/2024 2:09 PM [facility] Human Metapneumovirus A and B Not Detected Not Detected LAB MICROBIOLOGY METHOD 04/13/2024 2:09 PM [facility] Rhinovirus/Entero virus Not Detected Not Detected LAB MICROBIOLOGY METHOD 04/13/2024 2:09 PM [facility] Bordetella pertussis Not Detected Not Detected LAB MICROBIOLOGY METHOD 04/13/2024 2:09 PM [facility] Bordetella parapertussis Not Detected Not Detected LAB MICROBIOLOGY METHOD 04/13/2024 2:09 PM [facility] Influenza A H3 Detected(A ) Not Detected LAB MICROBIOLOGY METHOD 04/13/2024 2:09 PM [facility] Mycoplasma pneumo by PCR Not Detected Not Detected LAB MICROBIOLOGY METHOD 04/13/2024 2:09 PM [facility] Chlamydia pneumoniae Not Detected Not Detected LAB MICROBIOLOGY METHOD 04/13/2024 2:09 PM [facility] SARS COV-2 Not Detected Not Detected LAB MICROBIOLOGY METHOD 04/13/2024 2:09 PM [facility] Swab Both anterior nares / Unknown Non-blood Collection / Unknown 04/13/2024 1:02 PM EST 04/13/2024 1:02 PM EST [facility] - 04/13/2024 2:09 PM EST Testing was performed using the [employer] Respiratory Pathogen PCR Assay. All results must [...] MICROBIOLOGY - GEN ERAL ORDERABLES Final Result [facility] [address] [place] [address], * CT Angio Chest wo and/or w [...] infected, trauma patients, DIC, acute CVA, acute TN, unstable angina, AF, old age, , and smoking. D-Dimer may be decreased with: Initiation of heparin therapy and oral anticoagulants. us Ran Adams MD LAB BLOOD ORDERABLES Final R esult [facility] [address] [place] [address], * B-type natriuretic peptide (03/19/2024 2:53 PM EST) BNP 37 <=100 pcg/mL LAB CHEMISTRY METHOD 03/19/2024 3:47 PM EST [facility] Blood Venous blood specimen / Unknown Venipuncture / Unknown 03/19/2024 2:53 PM EST 03/19/2024 3:10 PM EST Marcial Jones MD LAB BLOOD ORDERABLES Gladis l Result [facility] [address] [place] [address], [place] [phone] * Magnesium (03/19/2024 2:53 PM EST) [facility] Magnesium 2.0 1.9 - 2.6 mg/dL LAB CHEMISTRY METHOD 03/19/2024 3:40 PM EST [facility] Blood Venous blood specimen / Unknown Venipuncture / Unknown 03/19/2024 2:53 PM EST 03/19/2024 3:10 PM EST Marcial Jones MD LAB BLOOD ORDERABLES Gladis l Result Performing Organization Address City/[facility]/ZIP Co de Phone Number [facility] [address] [place] [address], * DIANE SCREENING DIGITAL (02/27/2018 5:16 PM EST) Anatomical Region Laterality Modality Mammography 02/24/2018 10:4 4 AM EST Narrative 02/27/2018 5:16 PM EST [facility] Diagnostic Imaging Department [address] [place] [address] Patient: ??SCARLETT NEUMANN ?/Age/Sex: 1970 - 47 - F Unit#: ??[id number] ? Location/Status: ??SPDIMAM/REG CLI ? Mnemonic/Ordering Site: ??DIGSC/SPMAM Ordering Physician: ??EDUARDA VILLEDA MD Diane Screening Digital - 02/27/18 - 0758 INDICATION: SCREENING COMPARISON: [facility] mammograms dating back to ?? 08/05/2012 FINDINGS: CC and MLO views of the breasts were obtained, using full field digital mammography with 3D tomosynthesis views in the MLO projection. Computer aided detection with the [employer] 7.2-H was employed. History of reduction mammoplasty [...] date for the next mammogram. ([id number] / [id number]) , ??[id number] Dictating Physician: ??YONG WEATHERS MD Electronically Signed by: ??YONG WEATHERS MD Dic Date/Time: ??12/29/18 1712 Sign date/Time: ??02/27/181715 Procedure Note Yong Weathers MD - 02/18/2022 [facility] Diagnostic Imaging Department [address] [place] [address] Patient: THIENSCARLETT /Age/Sex: 1970 - 47 - F Unit#: [id number] Location/Status: SPDIMAM/REG CLI Mnemonic/Ordering Site: [facility] Ordering Physician: EDUARDA VILLEDA MD Diane Screening Digital - 02/27/18 - 0758 INDICATION: SCREENING COMPARISON: [facility] mammograms dating back to 08/05/2012 FINDINGS: CC and MLO views of the breasts were obtained, using full field digital mammography with 3D tomosynthesis views in the MLO projection. Computeraided detection with the [employer] 7.2-H was employed. History of reduction mammoplasty [...] a target date for the next mammogram. [id number] / [id number]) , [id number] Dictating Physician: YONG WEATHERS MD Electronically Signed by: YONG WEATHERS MD Dic Date/Time: 02/27/181711 Sign date/Time: 02/27/181715 us Eduarda Villeda MD IMG BI PROCEDURES Final R esult from Last 3 Months or Most Recently Relevant to Health Maintenance Insurance MEDICAID - [place] Care Teams Poultry Tender Relationship Specialty Start Date End Date Cristian Chacon [address] [place], [place] PCP - General Internal Medicine 10/17/20
--- OUTSIDE RECORDS SUMMARY | 2024-05-26 08:31 | XMS_ITS | Encounter Summary ---
Author Organization [employer] Address [address] [place] [address] Care Team Providers Care Emergency Department Manager Name Role Phone Cristian Chacon MD Primary Care Prov ider Encounter Details Date Type Department Care Team ([facility] st Contact Info) Description 05/17/2024 1:30 PM EDT Office Visit [facility] MED & PEDS [address] [place], [place] [phone] Cristian Chacon MD [address] [place] [address] Screening for colon cancer (Primary Dx); Primary [...] documented as of this encounter Care Teams Emergency Department Manager Relationship Specialty Start Date End Date Cristian Chacon MD [address] [place] [phone] PCP - General Internal Medicine 03/17/19 Ivy Payne Manager SemiconductorTransplant Case Manager 11/26/23 documented as of this encounter
--- OUTSIDE RECORDS SUMMARY | 2024-05-26 08:31 | XMS_ITS | Encounter Summary ---
Author Organization [employer] Address [address] [place] [address] Care Team Providers Care Management Advisor Name Role Phone Cristian Chacon MD [...] documented as of this encounter Care Teams Management Advisor Relationship Specialty Start Date End Date Cristian Chacon MD [address] [place] [address] PCP - General Internal Medicine 03/17/19 Ivy Payne Tenter FeederBusiness Administration Professor 11/26/23 documented as of this encounter
--- OUTSIDE RECORDS SUMMARY | 2024-05-26 08:31 | XMS_ITS | Encounter Summary ---
Author Organization [employer] Address [address] [place] [address] Care Team Providers Care Transmission Repairer Name Role Phone Cristian Chacon MD [...] documented as of this encounter Care Teams Transmission Repairer Relationship Specialty Start Date End Date Cristian Chacon MD [address] [place] [address] PCP - General Internal Medicine 03/17/19 Ivy Payne Computer OperatorBar Machine Operator Multiple Spindle 11/26/23 documented as of this encounter
--- OUTSIDE RECORDS SUMMARY | 2024-05-26 08:31 | XMS_ITS | Encounter Summary ---
Author Organization [employer] Address [address] [place] [address] Care Team Providers Care Sewer And Cutter Finger Buff Material Name Role Phone Cristian Chacon MD Primary [...] EDT) Sodium 140 135 - 145 mmol/L [facility] Potassium 4.5 3.3 - 5.1 mmol/L [facility] Chloride 109(H) 96 - 108 mmol/L [facility] Carbon Dioxide 24 22 - 29 mmol/L [facility] Anion Gap 12 12 - 20 [facility] Urea Nitrogen (BUN) 20(H) 9 - 16 mg/dL [facility] Creatinine, Serum 0.65 0.5 - 1.4 mg/dL [facility] Estimated Glomerular Filt Rate >60 [facility] Comment:Chronic Kidney Disea se: Estimated GFR < 60 mL/min/1.06t3Ydbusd Kidney Disease: Estimated GFR < 15 mL/min/1.73m2 Glucose 110 60 - 115 mg/dL [facility] Calcium 9.0 8.4 - 10.2 mg/dL [facility] 05/18/2024 9:59 AM EDT 05/18/2024 10:00 AM EDT us Generic External Data Provider LAB BLOOD ORDERAB LES Final Result [facility] [address] [place] [phone] documented in this encounter Visit Diagnoses Not on filedocumented in this encounter Additional Health Concerns Assessment Noted Time PHQ-9 Depression Total Score: 16 024 1:19 PM EDT documented as of this encounter Care Teams Sewer And Cutter Finger Buff Material Relationship Specialty Start Date End Date Cristian Chacon MD [address] [place] [address] PCP - General Internal Medicine 03/17/19 Ivy Payne Vet AssistantProfessor Of Genetics 11/26/23 documented as of this encounter
--- OUTSIDE RECORDS SUMMARY | 2024-05-26 08:31 | XMS_ITS | Encounter Summary ---
Author Organization [employer] Address [address] [place] [address] Care Team Providers Care Boil Off Worker Name Role Phone Cristian Chacon MD [...] documented as of this encounter Care Teams Boil Off Worker Relationship Specialty Start Date End Date Cristian Chacon MD [address] [place] [address] PCP - General Internal Medicine 03/17/19 Ivy Payne Organizational Effectiveness ConsultantIndustrial Economics Teacher 11/26/23 documented as of this encounter
--- OUTSIDE RECORDS SUMMARY | 2024-05-26 08:31 | XMS_ITS | Encounter Summary ---
Author Organization [facility] Address [address] [place] [address] Care Team Providers Care Journeyman Tool And Die Maker Name Role Phone Cristian Chacon MD Primary Care Prov ider Reason for Visit * Reason Onset Date Comments PAC Sick/Symptoms 04/08/2024 Encounter Details Date Type Department Care Team (Late st Contact Info) Description 04/08/2024 Telephone [facility] Rhe[facility] [address] [place], [place] [phone] Furniture Painter: Zaida Rust Telephone Intake, Staff PAC Sick/Symptoms [...] AM EST Reached out to pt via Occitan speaking telephonic interpreter and translator # [id number]. Pt reports that she has been experiencing transient chest pain and b/l foot pain since 03/18/2024. Pt reports that the chest pain is new and that she has an appointment with a Analytical Chemistry Teacher in [place] on 04/28/2024. Pt has been taking two [...] Rivas LPN - 04/12/2024 3:50 PM EST educational sign language interpreter #[id number] - LMOM for pt to call back. [...] Description 06/01/2024 9:00 AM EDT Office Visit [facility] 4th floor Cardiology Medicine [address] [place] [address] Furniture Painter: Hemal Fritz MD [address] [place] [phone] 08/02/2024 1:30 PM EDT Follow-Up [facility] Rheum Dermatology Clinic [address] [place] [address] Furniture Painter: Morales Ramsey MD [address] [place] [phone] 08/16/2024 2:00 PM EDT Office Visit [facility] [address] [place] [phone] Furniture Painter: Juan Ramon Vallejo, Dennis Whitlock MD [address] [place] [phone] Scheduled Procedures Name Priority Associated Diagnoses Date/Ti me ARTHROSCOPY, SHOULDER, WITH ROTATOR CUFF REPAIR Chronic left shoulder pain ARTHROSCOPY, SHOULDER, DEBRI RONAL, EXTENSIVE Chronic left shoulder pain ARTHROSCOPY, SHOULDER, BICEP S TENODESIS Chronic left shoulder pain documented as of this encounter Visit Diagnoses Not on filedocumented in this encounter Care Teams Journeyman Tool And Die Maker Relationship Specialty Start Date End Date Cristian Chacon MD [address] [place] [phone] PCP - General 06/04/22 documented as of this encounter
--- OUTSIDE RECORDS SUMMARY | 2024-05-26 08:31 | XMS_ITS | Clinical Summary ---
Author Organization [facility] Address [address] [place] [address] Care Team Providers Care Radio Adjuster Name Role Phone Eduarda Villeda MD Primary Care Provider [phone] Medications No known medications Social History Tobacco [...] complete this topic Insurance MEDICAID Care Teams Radio Adjuster Relationship Specialty Start Date End Date Eduarda Villeda MD [address] [address] PCP - General Internal Medicine 05/12/18
--- OUTSIDE RECORDS SUMMARY | 2024-05-26 08:31 | XMS_ITS | Encounter Summary ---
Author Organization [employer] Address [address] 7t [place] [address] Care Team Providers Care Substation Operator Automatic Name Role Phone Cristian Chacon MD Primary Care Prov ider Reason for Visit * Reason Comments Care Coordination Outreach Encounter Details Date Type Department Care Team (Latest Contact Info) Description 04/26/2024 Patient Outreach [facility] MED [facility] PEDS [address] [place], [place] [phone] Cristian Chacon MD [address] [place] [address] Care Coordination (Outreach) Social History Tobacco Use [...] Rico - 04/26/2024 10:23 AM EST CHW Savaan Rico, placed outbound call to patient introducing [...] Wednesdays, and Walk-In Urgent Care Located in [facility]. Patient provided with after-hours line for [facility], , which offer night time triage service and option to transfer to consumer recruiter provider if needed. Patient verbalizes understanding, and able to repeat back to telegraphic typewriter repairer. documented in this encounter Plan of Treatment Not on file documented as of this encounter Visit Diagnoses Not on filedocumented in this encounter Additional Health Concerns Assessment Noted Time PHQ-9 Depression Total Score: 16 024 1:19 PM EDT documented as of this encounter Care Teams Substation Operator Automatic Relationship Specialty Start Date End Date Cristian Chacon MD [address] [place] [phone] PCP - General Internal Medicine 03/17/19 Ivy Payne Bakery TechnicianResearch Quality Assurance Specialist 11/26/23 documented as of this encounter
--- OUTSIDE RECORDS SUMMARY | 2024-05-26 08:31 | XMS_ITS | Encounter Summary ---
Author Organization [employer] Address [address] [place] [address] Care Team Providers Care Oxygen Tank Filler Name Role Phone Cristian Chacon MD Primary Care Prov ider Encounter Details Date Type Department Care Team (Late st Contact Info) Description 05/10/2024 3:30 PM EDT Office Visit [facility] [address], [place] [id number] Eduarda Villeda MD [address] [place] [address] Other chest pain (Primary Dx); Multiple joint pain; Moderate persistent asthma without complication; Type 2 diabetes mellitus without complication, without long-term current use of insulin ([facility]); Fall, initial encounter Social History [...] hospital discharge follow-up. She was evaluated at [facility] on May 04, 2024 for generalized body aches. She was also complaining of lung pain, burning chest, and whole body aches. She has been on prednisone not antibiotics. She was evaluated by tunnel kiln firer. Hadan EKG, basic labs, chest x-ray, inflammatory [...] ОЛЕГ TABLETA [place] 90 tablet 3 Acetaminophen Extra Strength 500 [...] ITCHING. 30 capsule0 Blood Glucose Monitoring Suppl ([employer]) w/Device kit 1 Device in the [...] today Has a follow-up appointment with her loss prevention associate tomorrow to keep Orders: - ECG 12 lead Multiple joint pain Management deferred to rheumatology Moderate persistent asthma without complication - fluticasone-salmeterol (Advair HFA) 230-21 MCG/ACT inhaler; Inhale 2 puffs in the morning and at bedtime. Type 2 diabetes mellitus without complication, without long-term current use of insulin ([facility]) Comments: A1c at goal No [...] complication, without long-term current use of insulin ([facility]) Ordered: 05/10/2024 POCT HGB A1C Point of Care Testing Routine Type 2 diabetes mellitus without complication, without long-term current use of insulin ([facility]) Ordered: 05/10/2024 documented as of this encounter Procedures Procedure Name Priority Date/Time Associated Diagnosis Comments ECG 12-LEAD Routine 05/10/2024 4:51 PM EDT Other chest pain Fall, initial encounter documented in this encounter Results * ECG 12 lead (05/10/2024 4:51 PM EDT) Eduarda Parkinson MD - 05/10/2024 4:51 PM EDT Heart rate 92 bpm. ??[place] VIII degrees. ??Normal sinus rhythm. ??No sign [...] complication, without long-term current use of insulin ([facility]) Fall, initial encounter documented in this encounter Additional Health Concerns Assessment Noted Time PHQ-9 Depression Total Score: 16 024 1:19 PM EDT documented as of this encounter Care Teams Oxygen Tank Filler Relationship Specialty Start Date End Date Cristian Chacon MD [address] [place] [address] PCP - General Internal Medicine 03/17/19 [employer] ConsultantFlatwork Assembler 11/26/23 documented as of this encounter
--- OUTSIDE RECORDS SUMMARY | 2024-05-26 08:31 | XMS_ITS | Referral Summary ---
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 Name Role Phone Cristian Chacon MD Primary Care Prov ider Encounters Date Type Department Care Team Description 04/21/2024 Telephone [facility] 4th floor Cardiology Medicine [address] [place] [address] Director Alumni Relations: Mary Arriaga Telephone Intake, Staff PAC Form/Letter/Record s Request 04/20/2024 9:00 AM EST Follow-Up [facility] [address] [place] [address] Director Alumni Relations: Alonzo Baez MD FELI positive (Primary Dx); Arthralgia, unspecified joint; Chest pain, unspecified type; Moderate persistent asthma, unspecified whether complicated 04/08/2024 Telephone [facility] [address] [place] [address] Director Alumni Relations: Zaida Rust Telephone Intake, Staff PAC Sick/Symptoms 03/30/2024 Telephone [facility] [address] [place] [address] Director Alumni Relations: Alonzo Baez MD PAC Patient Request Call Back; PAC Clinical Questions 03/27/2024 Telephone [facility] Rheumatology [address] [place] [address] Director Alumni Relations: Alonzo Caputo MD 03/25/2024 Telephone [facility] Rheumatology [address] [place] [address] Director Alumni Relations: Alonzo Caputo MD 03/24/2024 Documentation [facility] Rheumatology [address] [place] [address] Director Alumni Relations: Alonzo Caputo MD 03/24/2024 Telephone [facility] Rheumatology [address] [place] [address] Director Alumni Relations: Alonzo Caputo MD 03/23/2024 4:00 PM EST - 03/23/2024 11:59 PM EST Hospital Encounter [facility] XRay [address] [place] [address] Alonzo Persaud MD Chronic pain of both shoulders; Bilateral hip pain; Neck pain Discharge Disposition: Home or Self Care () 03/23/2024 3:20 PM EST Office Visit [facility] [address] [place] [address] Director Alumni Relations: Alonzo Baez MD Chronic pain of both shoulders (Primary Dx); Bilateral hip pain; Neck pain 03/22/2024 Telephone [facility] [address] [place] [address] Director Alumni Relations: Zaida Rust Telephone Intake, Staff PAC Provider Requested Call Back Dr Persaud 03/22/2024 Telephone [facility]inology [facility] [address] [place] [address] Director Alumni Relations: Alysha Roman Telephone Intake, Staff 03/17/2024 Refill [facility] [address] [place] [address] Director Alumni Relations: Alonzo Baez MD 03/05/2024 Refill [facility] [address] [place] [address] Director Alumni Relations: Alonzo Baez MD from Last 3 Months [...] Description 06/01/2024 9:00 AM EDT Office Visit [facility] 4th floor Cardiology Medicine [address] [place] [address] Director Alumni Relations: Hemal Fritz MD [address] [place] [address] 08/02/2024 1:30 PM EDT Follow-Up [facility] Rhe[facility] Dermatology Clinic [address] [place] [address] Director Alumni Relations: Morales Ramsey MD [address] [place] [address] 08/16/2024 2:00 PM EDT Office Visit [facility] [address] [place] [address] Director Alumni Relations: Juan Ramon Vallejo, Dennis Whitlock MD [address] [place] [address] Scheduled Procedures Name Priority Associated Diagnoses Date/Ti me ARTHROSCOPY, SHOULDER, WITH ROTATOR CUFF REPAIR Chronic left shoulder pain ARTHROSCOPY, SHOULDER, DEBRI RONAL, EXTENSIVE Chronic left shoulder pain ARTHROSCOPY, SHOULDER, BICEP S TENODESIS Chronic left shoulder pain Procedures * Due to [place] state law, this organization might not be [...] AM EST FELI positive Arthralgia, unspecified joint [id number] STAT 04/20/19 9:23 AM EST FELI positive [...] to Health Maintenance Results * Due to [place] state law, this organization might not be sharing negative HIV tests. * Drake Top, Urine (04/20/2024 9:23 AM EST) Only the most recent of2 resultswithin the time period is included. Pathologist [facility] Extra Tube Hold for add-ons. 04/20/2024 2:05 PM EST [facility] Comment:Auto resulted. Urine Urine specimen collection, clean catch / Unknown Non-Blood Collection / Unknown 04/20/2024 9:23 AM EST 04/20/2024 9:39 AM EST us Alonzo Persaud MD LAB URINE ORDERABLES Final Result [facility] [address] [place] [address], * (ABNORMAL) DNA AB(DS) Crithidia Titer (04/20/2024 9:23 AM EST) Only the most recent of2 resultswithin the time period is included. Pathologist [facility] DNA Ab Crithidia Titer 1:40(H) <1:10 titer 04/23/2024 12:47 PM EST [facility]) Blood Structure of peripheral vein / Unknown Venipuncture / Unknown 04/20/2024 9:23 AM EST 04/20/2024 9:38 AM EST Narrative [facility] - 04/23/2024 12:47 PM EST [facility] Received Date: us Alonzo Persaud MD LAB BLOOD ORDERABLES Final Result [facility] [address] [facility] [address]rd [address], [place] [address], [place] [phone] [facility] ([place]) [address] [place], [place] , [place] * (ABNORMAL) Urinalysis W/Reflex to Microscopic & Culture (04/20/2024 9:23 AM EST) Only the most recent of2 resultswithin the time period is included. Color, Urine Yellow Colorless, Light Yellow, Yellow, Dark Yellow 04/20/2024 9:59 AM [facility] Clarity, Urine Clear Clear 04/20/2024 9:59 AM [facility] Specific [place], Urine 1.024 1.005 - 1.030 04/20/2024 9:59 AM [facility] pH, Urine 5.0 4.6 - 8.0 04/20/2024 9:59 AM [facility] Protein, Urine 1+(A) Negative 04/20/2024 9:59 AM EST [facility] Glucose, Urine Negative Negative 04/20/2024 9:59 AM EST [facility] Ketones, Urine Negative Negative 04/20/2024 9:59 AM EST [facility] Bilirubin, Urine Negative Negative 04/20/2024 9:59 AM [facility] Blood, Urine Negative Negative 04/20/2024 9:59 AM EST [facility] Nitrite, Urine Negative Negative 04/20/2024 9:59 AM EST [facility] Urobilinogen, Urine Normal Normal 04/20/2024 9:59 AM EST [facility] Leukocyte Esterase, Urine Negative Negative 04/20/2024 9:59 AM EST [facility] WBC, Urine 1 0 - 2 /HPF 04/20/2024 9:59 AM EST [facility] RBC, Urine <1 0 - 2 /HPF 04/20/2024 9:59 AM EST [facility] Hyaline Casts, Urine 0 0 - 2 /LPF 04/20/2024 9:59 AM EST [facility] Squamous Epithelial Cells, Urine 2 /HPF 04/20/2024 9:59 AM EST [facility] Bacteria, Urine None None /HPF /HPF 04/20/2024 9:59 AM EST [facility] Mucus, Urine Rare /LPF 04/20/2024 9:59 AM EST [facility] Urine Urine specimen collection, clean catch / Unknown Non-Blood Collection / Unknown 04/20/2024 9:23 AM EST 04/20/2024 9:39 AM EST us Alonzo Persaud MD LAB URINE ORDERABLES Final Result [facility] [address] [place] [address], * (ABNORMAL) DNA Antibody (ds) Crithidia IFA [...] LAB BLOOD ORDERABLES Final Result [facility] [address] [place] [address] 3rd Floor, [address] [place] [address], [facility] TASHIA (GIMENEZ) [address] [place] [address], [place] * Procalcitonin (04/20/2024 9:23 AM EST) Procalcitonin <0.20 <0.20 ng/mL 04/22/2024 2:53 PM EST [facility]- 0091 Comment: Verified by repeat analysis. Procalcitonin levels above 2.00 ng/mL on the first day of ICU admission represent a high risk for progression to severe sepsis and/or septic shock. Procalcitonin Comment See Comments 04/22/2024 2:53 PM EST [facility] 0091 Comment: Interpretation Guidelines Diagnosis of systemic [...] BLOOD ORDERABLES Final Result [facility] [address] [address] Floor, [address] [place] [address], [place] [phone] [employer] [facility] [address] [place] [address], [place] [phone] * (ABNORMAL) CBC Auto Differential (04/20/2024 9:23 AM EST) Only the most recent of2 resultswithin the time period is included. WBC 12.4(H) 3.8 - 10.8 10*3/uL 04/20/2024 9:47 AM [facility] RBC 4.34 3.80 - 5.10 10*6/uL 04/20/2024 9:47 AM [facility] Hemoglobin 12.3 11.7 - 15.5 g/dL 04/20/2024 9:47 AM [facility] Hematocrit 39.1 35.0 - 45.0 % 04/20/2024 9:47 AM [facility] MCV 90.1 80.0 - 100.0 fL 04/20/2024 9:47 AM [facility] MCH 28.3 27.0 - 33.0 pg 04/20/2024 9:47 AM [facility] MCHC 31.5(L) 32.0 - 36.0 g/dL 04/20/2024 9:47 AM [facility] RDW 13.4 11.0 - 15.0 % 04/20/2024 9:47 AM [facility] Platelets 351 140 - 400 10*3/uL 04/20/2024 9:47 AM [facility] MPV 9.4 7.5 - 12.5 fL 04/20/2024 9:47 AM [facility] Neutrophil % 88.3 % 04/20/2024 9:47 AM [facility] Immature Grans % 1.1(H) 0.0 - 0.9 % 04/20/2024 9:47 AM [facility] Lymphocyte % 6.1 % 04/20/2024 9:47 AM [facility] Monocyte % 4.1 % 04/20/2024 9:47 AM [facility] Eosinophil % 0.2 % 04/20/2024 9:47 AM [facility] Basophil % 0.2 % 04/20/2024 9:47 AM [facility] Neutrophil # 10.92(H) 1.50 - 7.80 10*3/uL 04/20/2024 9:47 AM [facility] Immature Grans # 0.14(H) <=0.03 10*3/uL 04/20/2024 9:47 AM [facility] Lymphocyte # 0.80(L) 0.85 - 3.90 10*3/uL 04/20/2024 9:47 AM [facility] Monocyte # 0.50 0.20 - 0.95 10*3/uL 04/20/2024 9:47 AM [facility] Eosinophil # <0.03 0.02 - 0.50 10*3/uL 04/20/2024 9:47 AM [facility] Basophil # <0.03 0.00 - 0.20 10*3/uL 04/20/2024 9:47 AM [facility] nRBC % 0.0 /100 WBCs 04/20/2024 9:47 AM [facility] nRBC # <0.01 <0.01 10*3/uL 04/20/2024 9:47 AM EST [facility] Blood Structure of peripheral vein / Unknown Venipuncture / Unknown 04/20/2024 9:23 AM EST 04/20/2024 9:38 AM EST Alonzo Persaud MD LAB BLOOD ORDERABLES Final Result Performing Organization Address [facility] Co de Phone Number [facility] [address] [place] [address], * Microalbumin, Random Urine with Creatinine (04/20/2024 9:23 AM EST) Only the most recent of2 resultswithin the time period is included. Pathologist [facility] Microalbumin, Urine <2.0 mg/dL 04/20/2024 12:17 PM EST [facility] Creatinine, Urine 186 15 - 278 mg/dL 04/20/2024 12:17 PM EST [facility] Microalb/Creat Ratio, Random Urine 04/20/2024 12:17 PM EST [facility] Comment: < 1.0 mcg/mgCr Microalbumin Reference Range: Normal ? <30 mcg/mg Creatinine Microalbuminuria ? 30-300 mcg/mg Creatinine Clinical Albuminuria >300 mcg/mg Creatinine Reference: ADA Guideline. Diabetes Care. 2004;27 (suppl 1) Urine Voided urine specimen / Unknown Non-Blood Collection / Unknown 04/20/2024 9:23 AM EST 04/20/2024 9:39 AM EST Alnozo Persaud MD LAB URINE ORDERABLES Final Result Performing Organization Address City/[facility]/ZIP Co de Phone Number [facility] [address] [place] [address], [facility] [address] [place] [address], * (ABNORMAL) DNA Antibody, Double-Stranded (04/20/2024 9:23 AM EST) Only the most recent of2 resultswithin the time period is included. Pathologist [facility] DNA (Ds) Antibody 7(H) IU/mL 025 9:50 PM EST [employer] Comment: ? IU/mL ? Interpretation ? < or = 4 ?Negative ? 5-9 ? Indeterminate ? > or = 10 ?? Positive Blood Structure of peripheral vein / Unknown Venipuncture / Unknown 04/20/2024 9:23 AM EST 04/20/2024 9:38 AM EST Narrative [facility] - 04/21/2024 9:50 PM EST [facility] Received Date: Alonzo Persaud MD LAB BLOOD ORDERABLES Final Result Performing Organization Address [facility] Phone Number [facility] [address], [place] [address], [place] [phone] [employer] [facility] [address], [place] [address], [place] [phone] * Sedimentation Rate (04/20/2024 9:23 AM EST) Only the most recent of2 resultswithin the time period is included. [facility] Sed Rate 23 <30 mm/Hr mm/Hr 04/20/2024 10:04 AM EST [facility] Blood Structure of peripheral vein / Unknown Venipuncture / Unknown 04/20/2024 9:23 AM EST 04/20/2024 9:38 AM EST Alonzo Persaud MD LAB BLOOD ORDERABLES Final Result [facility] [address] [place] [address], [place] * Complement C3 (04/20/2024 9:23 AM EST) Only the most recent of2 resultswithin the time period is included. Complement Component C3C 101 83 - 193 mg/dL 04/21/2024 4:22 AM EST [employer] [facility] Blood Structure of peripheral vein / Unknown Venipuncture / Unknown 04/20/2024 9:23 AM EST 04/20/2024 9:38 AM EST Narrative [facility] - 04/21/2024 4:22 AM EST [facility] Received Date: Alonzo Persaud MD LAB BLOOD ORDERABLES Final Result Performing Organization Address City/[facility]/ZIP Co de Phone Number [facility] [place] [address], [place] [address], [place] [phone] [employer] [facility] [address] [facility] [address] [facility], [place] [address], [place] [phone] * Complement C4 (04/20/2024 9:23 AM EST) Only the most recent of2 resultswithin the time period is included. Complement Component C4C 21 15 - 57 mg/dL 04/21/2024 4:22 AM EST [facility] Blood Structure of peripheral vein / Unknown Venipuncture / Unknown 04/20/2024 9:23 AM EST 04/20/2024 9:38 AM EST Narrative [facility] - 04/21/2024 4:22 AM EST [facility] Received Date: us Alonzo Persaud MD LAB BLOOD ORDERABLES Final Result [facility] [place] [address], [place] [address], [place] [phone] [facility] [address] [facility] [address]rd Floor, [place] [address], [place] [phone] * (ABNORMAL) C-Reactive Protein (04/20/2024 9:23 AM EST) Only the most recent of2 resultswithin the time period is included. C Reactive Protein 10.5(H) <=9.9 mg/L 04/20/2024 10:34 AM EST [facility] Blood Structure of peripheral vein / Unknown Venipuncture / Unknown 04/20/2024 9:23 AM EST 04/20/2024 9:38 AM EST Alonzo Persaud MD LAB BLOOD ORDERABLES Final Result Performing Organization Address [facility] Co de Phone Number [facility] [address] [place] [address], * (ABNORMAL) Creatine Kinase (04/20/2024 9:23 AM EST) Only the most recent of2 resultswithin the time period is included. CK 35(L) 38 - 206 U/L 04/20/2024 10:34 AM EST [facility] Blood Structure of peripheral vein / Unknown Venipuncture / Unknown 04/20/2024 9:23 AM EST 04/20/2024 9:38 AM EST Alonzo Persaud MD LAB BLOOD ORDERABLES Final Result Performing Organization Address City/[facility]/ZIP Co de Phone Number [facility] [address] [place] [address], [place] * (ABNORMAL) Comprehensive Metabolic Panel (04/20/2024 9:23 AM EST) Only the most recent of2 resultswithin the time period is included. NA 139 135 - 145 mmol/L 04/20/2024 10:34 AM EST [facility] K 3.8 3.5 - 5.3 mmol/L 04/20/2024 10:34 AM [facility] Cl 105 98 - 107 mmol/L 04/20/2024 10:34 AM [facility] CO2 24 22 - 32 mmol/L 04/20/2024 10:34 AM [facility] Anion Gap 10 5 - 15 04/20/2024 10:34 AM [facility] Glucose 177(H) 65 - 99 mg/dL 04/20/2024 10:34 AM [facility] Creatinine 0.73 0.50 - 1.20 mg/dL 04/20/2024 10:34 AM [facility] Calcium 8.4(L) 8.6 - 10.5 mg/dL 04/20/2024 10:34 AM [facility] Total Protein 6.9 6.0 - 8.0 g/dL 04/20/2024 10:34 AM [facility] Albumin 3.4(L) 3.5 - 5.2 g/dL 04/20/2024 10:34 AM [facility] Bilirubin, Total 0.3 0.2 - 1.2 mg/dL 04/20/2024 10:34 AM [facility] Alkaline Phosphatase 50 35 - 129 U/L 04/20/2024 10:34 AM [facility] AST 14 10 - 40 U/L 04/20/2024 10:34 AM [facility] ALT 11 10 - 40 U/L 04/20/2024 10:34 AM [facility] BUN 24(H) 7 - 23 mg/dL 04/20/2024 10:34 AM [facility] eGFR >90 >=60 mL/min/1. 73m2 04/20/2024 10:34 AM [facility] Comment:The estimated glomer ular [...] - 4.2 g/dL 04/20/2024 10:34 AM EST [facility] A/G Ratio 1.0(L) 1.5 - 3.0 04/20/2024 10:34 AM EST [facility] Blood Structure of peripheral vein / Unknown Venipuncture / Unknown 04/20/2024 9:23 AM EST 04/20/2024 9:38 AM EST Alonzo Persaud MD LAB BLOOD ORDERABLES Final Result [facility] [address] [place] [address], * Interpretation (03/23/2024 4:48 PM EST) FELI Specific Antibody Interpretation See Comments 03/25/2024 12:23 PM EST [facility] Comment: The presence of these two antibodies [...] EST 03/23/2024 5:31 PM EST Narrative [facility] - 03/25/2024 12:23 PM EST [facility] Received Date: us Alonzo Persaud MD LAB BLOOD ORDERABLES Final Result [facility] [address] [address], [place] [address], [employer] [address] [facility] 3rd Floor, [address] [facility] [place] [address], * (ABNORMAL) Stage 1 (03/23/2024 4:48 PM EST) DNA (Ds) Antibody 11(H) IU/mL 025 12:23 PM EST [employer] Comment: ? IU/mL ? Interpretation ? < or = 4 ?Negative ? 5-9 ? Indeterminate ? > or = 10 ?? Positive Sm Antibody <1.0 NEG <1.0 NEG AI 03/25/2024 12:23 PM EST [employer] SM/PERFORMANCE CONSULTANT Antibody <1.0 NEG <1.0 NEG AI 03/25/2024 12:23 PM EST [employer] PERFORMANCE CONSULTANT Antibody <1.0 NEG <1.0 NEG AI 03/25/2024 12:23 PM EST [employer] Chromatin Antibody 3.0 POS(A) <1.0 NEG AI 03/25/2024 12:23 PM EST [employer] Comment: ANTIBODY PREVALENCE IN TIER 1 ? [...] Sjogren's syndrome and 8% polymyositis. ?? Ribonucleoprotein (PERFORMANCE CONSULTANT) antibodies are to PERFORMANCE CONSULTANT A and/or PERFORMANCE CONSULTANT 68kD proteins; antibodies to one or both are present in >80% MCTD, 22% to 48% SLE, 14% systemic sclerosis, 12% Sjogren's and 8% polymyositis. ?? Sm/PERFORMANCE CONSULTANT antibodies are directed to epitopes formed in a complex of Sm and PERFORMANCE CONSULTANT; antibodies to the Sm/PERFORMANCE CONSULTANT complex are present in 54% to 94% MCTD, 30% SLE, 4% systemic sclerosis, and 9% Sjogren's and polymyositis. ?? Sm antibody is present in 20% to 30% SLE, 8% MCTD, 10% polymyositis, 0% systemic sclerosis and 4% Sjogren's syndrome. ?? Double stranded DNA, Chromatin, Ribonucleoprotein, Sm/PERFORMANCE CONSULTANT complex and Sm antibodies are present in <2% of normal blood donors. ?? The [facility] does not rule out autoimmune disease characterized by other autoantibody specificities such as rheumatoid arthritis, autoimmune hepatitis, primary biliary cirrhosis, autoimmune thyroiditis, Darrel's disease, pernicious anemia, autoimmune neuropathies, vasculitis, celiac disease and bullous disease. Please contact your local [facility] laboratory if you are interested in additional testing. Blood Structure of peripheral vein / Unknown Venipuncture / Unknown 03/23/2024 4:48 PM EST 03/23/2024 5:31 PM EST Narrative [facility] - 03/25/2024 12:23 PM EST [facility] Received Date: us Alonzo Persaud MD LAB BLOOD ORDERABLES Final Result [facility] [address]rd [address], [place] [address], [place] [phone] [employer] [facility] [address] [facility] 3rd Floor, [place] [address], [place] [phone] * (ABNORMAL) FELI, Titer and Pattern (03/23/2024 4:48 PM EST) FELI Titer 1 1:1280(H) titer 03/30/2024 4:22 PM EST [employer] Comment: ?Reference Range ?<1:40 ?Negative ?1:40-1:80 ?Low Antibody Level ?>1:80 ?Elevated Antibody Level FELI Pattern 1 Nuclear, Homogeneo us(A) 03/30/2024 4:22 PM EST [employer] Comment: Homogeneous pattern is associated with systemic lupus erythematosus (SLE), drug-induced lupus and juvenile idiopathic arthritis. AC-1: Homogeneous International Consensus on FELI Patterns (https://doi.org/10.1515/osma-7382-2035) Blood Structure of peripheral vein / Unknown Venipuncture / Unknown 03/23/2024 4:48 PM EST 03/23/2024 5:31 PM EST Narrative [facility] - 03/30/2024 4:22 PM EST [facility] Received Date: Alonzo Persaud MD LAB BLOOD ORDERABLES Final Result [facility] [address], [place] [address], [employer] [facility] [address], [place] [address], * (ABNORMAL) [place] & Lambda, Free w/Ratio (03/23/2024 4:48 PM EST) [place] Light Chain, Free, Serum 99.6(H) 3.3 - 19.4 mg/L 03/24/2024 3:56 PM EST [employer] Lambda Light Chain, Free, Serum 60.2(H) 5.7 - 26.3 mg/L 03/24/2024 3:56 PM EST [facility] [place]/Lambda Light Chains Free With Ratio 1.65 0.26 - 1.65 03/24/2024 3:56 PM EST [facility] Comment: Free kappa/lambda ratio in serum [...] 4:48 PM EST 03/23/2024 5:31 PM EST [facility] - 03/24/2024 3:56 PM EST [facility] Received Date: Alonzo Persaud MD LAB BLOOD ORDERABLES Final Result [facility] [address] [facility] [address], [place] [address], [employer] [facility] [address] [facility] [address], [place] [address], * (ABNORMAL) Protein Electrophoresis w/Reflex to Immunofixation, Serum (03/23/2024 4:48 PM EST) Protein, Total 6.5 6.1 - 8.1 g/dL 03/25/2024 7:04 AM EST [employer] [facility] Albumin 3.0(L) 3.8 - 4.8 g/dL 03/25/2024 7:04 AM [employer] [facility] Alpha 1 Globulin 0.5(H) 0.2 - 0.3 g/dL 03/25/2024 7:04 AM EST [employer] [facility] Alpha 2 Globulin 0.9 0.5 - 0.9 g/dL 03/25/2024 7:04 AM EST [employer] [facility] Beta 1 Globulin 0.4 0.4 - 0.6 g/dL 03/25/2024 7:04 AM [employer] [facility] Beta 2 Globulin 0.4 0.2 - 0.5 g/dL 03/25/2024 7:04 AM EST [employer] [facility] Gamma Globulin 1.2 0.8 - 1.7 g/dL 03/25/2024 7:04 AM EST [employer] Interpretation See Comments 03/25/2024 7:04 AM EST [facility] Comment: Pattern consistent with an acute phase reaction Blood Structure of peripheral vein / Unknown Venipuncture / Unknown 03/23/2024 4:48 PM EST 03/23/2024 5:31 PM EST Narrative [facility] NAV[facility] HEALTHIS[facility]RO - 03/25/2024 7:04 AM EST [facility] Received Date: Alonzo Persaud MD LAB BLOOD ORDERABLES Final Result Performing Organization Address City/[facility]/ZIP Co de Phone Number [facility] [address], [place] [address], [place] [phone] [employer] [facility] [address] [facility] [address] [facility], [place] [address], [place] [phone] * Cyclic Citrullinated Peptide (CCP) Antibody, IgG (03/23/2024 4:48 PM EST) Pathologist [facility] Cyclic Citrullinated Peptide (CCP) Ab (IgG) <16 UNITS 03/25/2024 2:15 PM EST [facility] Comment: Reference Range Negative: ?<20 Weak Positive: ? 20-39 Moderate Positive: ?? 40-59 Strong Positive: ? >59 Blood Structure of peripheral vein / Unknown Venipuncture / Unknown 03/23/2024 4:48 PM EST 03/23/2024 5:31 PM EST Narrative [facility] - 03/25/2024 2:15 PM EST [facility] Received Date: us Alonzo Persaud MD LAB BLOOD ORDERABLES Final Result Performing Organization Address [facility]/ZIP Co de Phone Number [facility] [address] [facility] 3rd Floor, [place] [address], [employer] [address] Floor, [address] [facility] [place] [address], * Lyme Antibody Screen w/Reflex to Blot (03/23/2024 4:48 PM EST) Lyme Ab Screen <0.90 index 03/24/2024 11:29 AM EST [facility] Comment: ? Index ?Interpretation ? ----- ? [...] EST 03/23/2024 5:31 PM EST Narrative [facility] - 03/24/2024 11:29 AM EST [facility] Received Date: us Alozno Persaud MD LAB BLOOD ORDERABLES Final Result Performing Organization Address [facility]/ZIP Co de Phone Number PHILLIP ROSARIO [address] [facility] [address] [facility], [place] [address], [place] [phone] [employer] [facility] [address] [facility] [address] [facility], [place] [address], [place] [phone] * (ABNORMAL) FELI Screen, IFA, w/Reflex to Titer & Pattern (03/23/2024 4:48 PM EST) FELI Screen, IFA POSITIVE (A) NEGATIVE 03/30/2024 4:21 PM EST [employer] Comment: FELI IFA is a first line screen for detecting the presence of up to approximately 150 autoantibodies in various autoimmune diseases. A positive FELI IFA result is suggestive of autoimmune disease and reflexes to titer and pattern. Further laboratory testing may be considered if clinically indicated. For additional information, please refer to http://education.[employer]/faq/TDD936 (This link is being provided for informational/ educational purposes only.) ?? Blood Structure of peripheral vein / Unknown Venipuncture / Unknown 03/23/2024 4:48 PM EST 03/23/2024 5:31 PM EST Narrative PHILLIP ROSARIO - 03/30/2024 4:21 PM EST [facility] Received Date: Alonzo Persaud MD LAB BLOOD ORDERABLES Final Result Performing Organization Address City/[facility]/ZIP Co de Phone Number [facility] ROSAR[facility] [address] [facility] [address] [facility], [place] [address], [place] [phone] [employer] [facility] [address], [place] [address], [place] [phone] * Urine Culture, Routine (03/23/2024 4:48 PM EST) Pathologist [facility] Culture Mixed genital zachary isolated. These superficial bacteria are not indicative of a urinary tract infection. No further organism identification is warranted on this specimen. 03/24/2024 5:21 PM EST [facility] Urine Urine specimen collection, clean catch / Unknown Non-Blood Collection / Unknown 03/23/2024 4:48 PM EST 03/23/2024 6:19 PM EST Narrative [facility] LA HONDA - 03/24/2024 5:21 PM EST [facility] Received Date: MICRO NUMBER: [id number] SPECIMEN QUALITY: Adequate SOURCE: URINE CLEAN CATCH STATUS: FINAL If clinically indicated, recollect clean-catch, mid-stream urine and transfer immediately to Urine Culture Transport Tube. us Alonzo Persaud MD LAB MICROBIOLOGY - GENERAL ORDERABLES Final Result Performing Organization Address City/State/[facility] Co de Phone Number [facility] [address] [facility] [address] 3rd Floor, [place] [address], [employer] [facility] [address] [facility] 3rd Floor, [place] [address], [place] [phone] * (ABNORMAL) FELI Specific Antibody w/Reflex to [place] (03/23/2024 4:48 PM EST) FELI Screen, Immunoassay POSITIVE (A) NEGATIVE 03/25/2024 12:23 PM EST [facility] Comment: A positive FELI Multiplex indicates the presence of detectable antibodies to one or more of the component analytes consisting of double stranded DNA (dsDNA), chromatin, ribonucleoprotein (PERFORMANCE CONSULTANT), Mojica/PERFORMANCE CONSULTANT (Sm/PERFORMANCE CONSULTANT), Mojica (Sm), SS-A, SS-B, Bozena-1, centromere B, Scl-70 and ribosomal P. Further laboratory testing may be considered if clinically indicated. For additional information, please refer to http://education.[employer]/faq/TPC488 (This link is being provided for informational/ educational purposes only.) ?? Blood Structure of peripheral vein / Unknown Venipuncture / Unknown 03/23/2024 4:48 PM EST 03/23/2024 5:31 PM EST Narrative [facility] LA HONDA - 03/25/2024 12:23 PM EST [facility] Received Date: us Alonzo Persaud MD LAB BLOOD ORDERABLES Final Result [facility] [address], [place] [address], [place] [phone] [employer] [facility] [address], [place] [address], [place] [phone] * (ABNORMAL) Lactate Dehydrogenase (03/23/2024 4:48 PM EST) LDH 285(H) 135 - 225 U/L 03/23/2024 6:41 PM EST [facility] Blood Structure of peripheral vein / Unknown Venipuncture / Unknown 03/23/2024 4:48 PM EST 03/23/2024 5:31 PM EST Alonzo Persaud MD LAB BLOOD ORDERABLES Final Result [facility] [address] [place] [address], [place] * Gamma Glutamyl Transferase (03/23/2024 4:48 PM EST) GGT 35 5 - 61 U/L 03/23/2024 6:09 PM EST [facility] Blood Structure of peripheral vein / Unknown Venipuncture / Unknown 03/23/2024 4:48 PM EST 03/23/2024 5:31 PM EST Alonzo Persaud MD LAB BLOOD ORDERABLES Final Result [facility] [address] [place] [address], [place] * (ABNORMAL) IgA (03/23/2024 4:48 PM EST) Immunoglobulin A 319(H) 47 - 310 mg/dL 03/24/2024 8:01 AM EST [employer] [facility] Blood Structure of peripheral vein / Unknown Venipuncture / Unknown 03/23/2024 4:48 PM EST 03/23/2024 5:31 PM EST Narrative [facility] LA HONDA - 03/24/2024 8:01 AM EST [facility] Received Date: us Alonzo Persaud MD LAB BLOOD ORDERABLES Final Result [facility] [address] [facility] [address] [facility], [place] [address], [place] [phone] [employer] [facility] [address] [facility] 3rd Floor, [place] [address], [place] [phone] * IgM (03/23/2024 4:48 PM EST) Immunoglobulin M 80 50 - 300 mg/dL 03/24/2024 8:01 AM EST [employer] [facility] Blood Structure of peripheral vein / Unknown Venipuncture / Unknown 03/23/2024 4:48 PM EST 03/23/2024 5:31 PM EST Narrative [facility] - 03/24/2024 8:01 AM EST [facility] Received Date: us Alonzo Persaud MD LAB BLOOD ORDERABLES Final Result [facility] [address] [facility] 3rd Floor, [place] [address], [place] [phone] [employer] [facility] [address] [facility] [address] [facility], [place] [address], [place] [phone] * IgG (03/23/2024 4:48 PM EST) IgG, Serum 1448 600 - 1640 mg/dL 03/24/2024 8:01 AM EST [employer] [facility] Blood Structure of peripheral vein / Unknown Venipuncture / Unknown 03/23/2024 4:48 PM EST 03/23/2024 5:31 PM EST Narrative [facility] - 03/24/2024 8:01 AM EST [facility] Received Date: us Alonzo Persaud MD LAB BLOOD ORDERABLES Final Result [facility] [address], [place] [address], [place] [phone] [employer] [facility] [address], [place] [address], [place] [phone] * Ferritin (03/23/2024 4:48 PM EST) Ferritin 279.0 11.0 - 306.0 ng/mL 03/23/2024 6:09 PM EST [facility] Blood Structure of peripheral vein / Unknown Venipuncture / Unknown 03/23/2024 4:48 PM EST 03/23/2024 5:31 PM EST Alonzo Persaud MD LAB BLOOD ORDERABLES Final Result [facility] [address] [place] [address], [place] * XR Hips Bilateral 5+ vw [...] obtain the completed interpretation. ? Workstation ID: [id number] Narrative 03/23/2024 6:11 PM EST COMPARISON: None. ?? Resulting Agency Comment [id number] Procedure Note Augusto Buck MD - 03/23/2024 [...] possible to obtain thecompleted interpretation. Workstation ID: [id number] us Alonzo Persaud MD IMG XR PROCEDURES [...] obtain the completed interpretation. ? Workstation ID: [id number] Narrative 03/23/2024 6:11 PM EST COMPARISON: None. ?? Resulting Agency Comment [id number] Procedure Note Augusto Buck MD - 03/23/2024 [...] possible to obtain thecompleted interpretation. Workstation ID: [id number] us Alonzo Persaud MD IMG XR PROCEDURES [...] obtain the completed interpretation. ? Workstation ID: [id number] Narrative 03/23/2024 6:11 PM EST COMPARISON: None. ?? Resulting Agency Comment [id number] Procedure Note Augusto Buck MD - 03/23/2024 [...] possible to obtain thecompleted interpretation. Workstation ID: [id number] us Alonzo Persaud MD IMG XR PROCEDURES [...] obtain the completed interpretation. ? Workstation ID: [id number] Narrative 03/23/2024 6:11 PM EST COMPARISON: None. ?? Resulting Agency Comment [id number] Procedure Note Augusto Buck MD - 03/23/2024 [...] possible to obtain thecompleted interpretation. Workstation ID: [id number] us Alonzo Persaud MD IMG XR PROCEDURES Final Re sult * Hepatitis C Antibody w/Reflex to HCV RNA, Quantitative PCR (06/04/2022 5:43 PM EDT) Hepatitis C Antibody NON-REACT BETO NON-REACT BETO 06/05/2022 3:44 AM EDT [employer] Signal To Cut-Off 0.02 <1.00 06/05/2022 3:44 AM EDT [employer] Comment: HCV antibody was non-reactive. There is no laboratory evidence of HCV infection. In most cases, no further action is required. However, if recent HCV exposure is suspected, a test for HCV RNA (test code 79617) is suggested. For additional information please refer to http://education.[facility]/faq/GRN31x2 (This link is being provided for informational/ educational purposes only.) Blood Structure of peripheral vein / Unknown Venipuncture / Unknown 06/04/2022 5:43 PM EDT 06/04/2022 6:08 PM EDT Narrative [facility] - 06/05/2022 3:44 AM EDT [facility] Received Date: Alonzo Persaud MD LAB BLOOD ORDERABLES Final Result [facility] [address] 3rd [address], [place] [address], [facility] [address] [facility] 3rd Floor, [place] [address], from Last 3 Months or Most Recently Relevant to Health Maintenance Insurance [facility] Care Teams Bailing Machine Operator Relationship Specialty Start Date End Date WylieCristian Cook MD [address] [place] [address] PCP - General 06/04/22
--- OUTSIDE RECORDS SUMMARY | 2024-05-26 08:31 | XMS_ITS | Encounter Summary ---
Author Organization [employer] Address [address] 7t [place] [address] Care Team Providers Care Vinyl Welder And Fabricator Name Role Phone Cristian Chacon MD Primary [...] 10:26 AM EDT) Cancelled Chemistry SEE NOTE [facility] Comment:SPECIMEN HEMOLYZED 05/16/2024 10:2 6 AM EDT 05/16/2024 10:26 AM EDT us Generic External Data Provider HISTORICAL/NON OR DERABLE LABS Final Result Performing Organization Address City/State/[facility] Co de Phone Number [facility] [address] [place] [address] [phone] documented in this encounter Visit Diagnoses Not on filedocumented in this encounter Additional Health Concerns Assessment Noted Time PHQ-9 Depression Total Score: 16 024 1:19 PM EDT documented as of this encounter Care Teams Vinyl Welder And Fabricator Relationship Specialty Start Date End Date Cristian Chacon MD [address] [place] [address] PCP - General Internal Medicine 03/17/19 Ivy Payne Manager BatteryMember Service Specialist 11/26/23 documented as of this encounter
[2024-05-26 08:32] VITALS: BP 110/60; PULSE 89; O2SAT 96; BMI 40.8
--- NOTE | 2024-05-26 08:32 | MHC.OFFVIS ---
Vital Signs 05/26/24 08:32 Height 5 ft Weight 209 lb BMI 40.8 BP 110/60 Blood Pressure Location Rt brachial Position Sitting Pulse 89 Pulse Source Pulse Oximeter Pulse Oximetry (%) 96 Oxygen Delivery Method Room Air Intake Visit Reasons: follow up Intake Note: Patient presents follow up Migraine Rn Otolaryngology Required: Yes Rn Otolaryngology Services: Rn Otolaryngology Offered & Declined Accompanied by: Self / Same As Patient Allergies duloxetine [From CYMBALTA] Allergy (Unknown, Verified 05/26/24 08:36) UNKNOWN pregabalin [From LYRICA] Allergy (Unknown, Verified 05/26/24 08:36) UNKNOWN meperidine [From DEMEROL] Adverse Reaction (Intermediate, Verified 05/26/24 08:36) N/V oxycodone [From Percocet] Adverse Reaction (Intermediate, Verified 05/26/24 08:36) itching HPI Comments Details: Chief Complaint History of Present Illness The patient is a 53-year-old female presenting with headache, migraine, and left hemifascial spasm. She experiences low grade headache approximately every three days. Headache episodes are associated with fluctuations in blood sugar and blood pressure. She cannot currently uses Tylenol or Naproxen as needed with good effect for low grade headcahe. Has not recently needed to use Sumatriptan as she has not had a migraine recently. Left hemifascial spasm well-controlled, but can start to feel bruxism and left masseter tightness, especially as the botox wears off, Reports interval diagnosis of diabetes, with glucose levels noted up to 148mg/dL fasting- which she attributes to chronic prednisone tx. She notes she is waiting approval to start on a diabetic tx. Also reports, March 2024 hospitalization due to influenza and bacteremia, which she has slowly been recovering from. Notes stress and worry r/t her having pancreatic and thyroid cancer. As well as her dtr having severe headaches. [facility] Medical History Pre-op examination Hemifacial spasm Abdominal pain Pelvic pain in female Bilateral shoulder pain Vulvar irritation WISE (nonalcoholic steatohepatitis) Elevated antinuclear antibody (FELI) level FELI positive Encounter to discuss test results Hemifacial spasm of left side of face Peptic ulcer disease Esophageal spasm Family history of cerebral aneurysm Fibromyalgia Irritable bowel syndrome with both constipation and diarrhea History of meningitis Surgical History History of esophagogastroduodenoscopy (EGD) Keloid of skin H/O neck surgery Hx of section Hx of hysterectomy Hx of breast lump removal (~2019) History of bladder suspension procedure H/O bilateral breast reduction surgery Family History Mother Aneurysm Endometrial cancer Father No problems noted. Social History Alcohol intake: never Patient Tobacco Use Status: Never used Tobacco Sexual orientation: Straight/Heterosexual Gender identity: Female Physical Exam Vital Signs: Last Vital Signs Pulse 89 05/26/24 08:32 BP 110/60 05/26/24 08:32 Pulse Ox 96 05/26/24 08:32 Oxygen Delivery Method Room Air 05/26/24 08:32 BMI result Body Mass Index 40.8 Const General: cooperative and no acute distress Orientation/consciousness: patient oriented x3 Resp Effort & Inspection: normal respiratory effort and able to speak in complete sentences Neuro Other: Left hemifascial spasm General: patient oriented x3 Cranial nerves: Yes CN's II-XII intact bilaterally Cognition (Neuro): normal cognition Psych Appearance: grossly normal Mental Status: mental status grossly normal Speech and movement: Normal speech and movement present Affect: normal affect Attitude: cooperative Assessment & Plan Assessment & Plan (1) Migraine without aura: Code(s): G43.009 - Migraine without aura, not intractable, without status migrainosus Category: Medical (2) Hemifacial spasm of left side of face: Code(s): G51.32 - Clonic hemifacial spasm, left Category: Medical (3) Cerebral palsy: Code(s): G80.9 - Cerebral palsy, unspecified Category: Medical Plan I advised the patient on the importance of completing her cardiac evaluations before continuing or initiating sumatriptan, given the potential cardiovascular implications of the medication. We discussed the need to monitor her blood pressure and glucose levels, for overall health and as these seem to influence her headache frequency. I also highlighted the potential familial stress, given her spouse's and daughter's health conditions, which might impact her overall health and headaches. Patient was informed and verbally consented to the use of an ambient scribe for clinic note documentation during this visit. Plan Defer sumatriptan until cardiac evaluation. Monitor glucose and blood pressure. Continue working with PCP to optimize diabetes management. Re-evaluate headache management after cardiac workup. Consider alternative migraine treatments post-cardiac clearance. Patient Instructions General: - Monitor your blood sugar and blood pressure regularly. - Avoid using prescribed sumatriptan until your cardiac evaluations are completed. - Attend all follow-up appointments with the parks recreation coordinator. - Follow-up with your PCP regarding your diabetes treatment plan. - Discuss any new or worsening symptoms promptly. For Migraine: Riboflavin and Magnesium. May continue Tylenol or Naproxen as needed- advsied to use NSAIDs sparingly. Hold Sumatriptan 50-100mg prn. ? For left hemifascial spasm- May trial a low profile mouth guard to minimize risk for biting the sides of her tongue. Continue Botox as scheduled, as pt is having good clinical effect from use. ? f/u in 6 months or sooner prn. Coding Level of Care Code Est Pt Level 4 (64898) Diagnoses Migraine without aura G43.009 Hemifacial spasm of left side of face G51.32 Cerebral palsy G80.9
--- OUTSIDE RECORDS SUMMARY | 2024-05-26 08:32 | XMS_ITS | Encounter Summary ---
Author Organization [employer] Address [address] [facility] 7t [place] [address] Care Team Providers Care Human Resources Generalist Name Role Phone Cristian Chaocn MD Primary Care Prov ider Reason for Visit * Reason Comments Care Coordination Outreach Encounter Details Date Type Department Care Team (Latest Contact Info) Description 05/03/2024 Patient Outreach [facility]S [address] [place], [place] [phone] Cristian Chacon MD [address] [place] [address] Care Coordination (Outreach) Social History Tobacco Use [...] notify CM. CHW provided contact information of [phone] for any questions or concerns. documented in this encounter Plan of Treatment Not on file documented as of this encounter Visit Diagnoses Not on filedocumented in this encounter Additional Health Concerns Assessment Noted Time PHQ-9 Depression Total Score: 16 024 1:19 PM EDT documented as of this encounter Care Teams Human Resources Generalist Relationship Specialty Start Date End Date Cristian Chacon MD [address] [place] [address] PCP - General Internal Medicine 03/17/19 Ivy Payne Production Supervisor Off ShiftInfrastructure Administrator 11/26/23 documented as of this encounter
--- OUTSIDE RECORDS SUMMARY | 2024-05-26 08:32 | XMS_ITS | Clinical Summary ---
Author Organization [facility] Address [address] [place] [address] Care Team Providers Care Restaurant Crew Member Name Role Phone Unavailable Primary Care Provider [...]
--- OUTSIDE RECORDS SUMMARY | 2024-05-26 08:32 | XMS_ITS | Encounter Summary ---
Author Organization [employer] Address [address] 7t [place] [address] Care Team Providers Care Vulcan Crewmember Name Role Phone Cristian Chacon MD Primary Care Prov ider Encounter Details Date Type Department Care Team (Late st Contact Info) Description 02/19/2024 Orders Only [facility] MED [facility] PEDS [address] [place] [address] Provider, MD Roderick Social History Tobacco Use [...] documented as of this encounter Care Teams Vulcan Crewmember Relationship Specialty Start Date End Date Cristian Chacon MD [address] [place] [address] PCP - General Internal Medicine 03/17/19 Ivy Payne Web Services DeveloperLead Cytogenetic Technologist 11/26/23 documented as of this encounter
--- OUTSIDE RECORDS SUMMARY | 2024-05-26 08:32 | XMS_ITS | Encounter Summary ---
Author Organization [facility] Address [address] [place] [address] Care Team Providers Care Termite Control Service Representative Name Role Phone Cristian Chacon MD Primary Care Prov ider Reason for Visit * Reason Onset Date Comments Rosacea 08/09/2021 Pt is calling to schedule a new pt apt for rosacea. Please call pt at [phone] Encounter Details Date Type Department Care Team ([facility] Contact Info) Description 08/09/2021 Telephone [facility] Central Scheduling Department [address] [place] [address] Telephone Intake, Staff Cash (Pt is calling to schedule a new pt apt for rosacea. Please call pt at [phone]) Social History Tobacco Use Types Packs/Day Years [...] 10:51 AM EDT Documentation purpose. lvm at [phone]. Pt is calling to schedule a new pt apt for rosacea. Please call pt at [phone] documented in this encounter Plan of Treatment Upcoming Encounters Date Type Department Care Team ([facility] Contact Info) Description 06/01/2024 9:00 AM EDT Office Visit [facility] 4th floor Cardiology Medicine [address] [place] [address] Immunologist: Hemal Fritz MD [address] [place] [address] 08/02/2024 1:30 PM EDT Follow-Up [facility] [address] [place] [address] Immunologist: Morales Ramsey MD [address] [place] [address] 08/16/2024 2:00 PM EDT Office Visit [facility] [address] [place] [address] Immunologist: Dennis Laguna MD [address] [place] [address] Scheduled Procedures Name Priority Associated Diagnoses Date/Ti me ARTHROSCOPY, SHOULDER, WITH ROTATOR CUFF REPAIR Chronic left shoulder pain ARTHROSCOPY, SHOULDER, DEBRI RNOAL, EXTENSIVE Chronic left shoulder pain ARTHROSCOPY, SHOULDER, BICEP S TENODESIS Chronic left shoulder pain documented as of this encounter Visit Diagnoses Not on filedocumented in this encounter Care Teams Termite Control Service Representative Relationship Specialty Start Date End Date Cristian Chacon MD [address] [place] [address] PCP - General 06/04/22 documented as of this encounter
--- OUTSIDE RECORDS SUMMARY | 2024-05-26 08:32 | XMS_ITS | Encounter Summary ---
Author Organization [employer] Address [address] [facility] 7t [place] [address] Care Team Providers Care Bread Dumper Name Role Phone Cristian Chacon MD Primary Care Prov ider Reason for Visit * Reason Onset Date Comments Nurse Triage 11/18/2022 Encounter Details Date Type Department Care Team ([facility] st Contact Info) Description 11/18/2022 Telephone C [facility] [address] [place], [place] [phone] Cristian Chacon MD [address] [place] [address] Nurse Triage Social History Tobacco Use Types [...] accepted this outcome Please contact pt at [phone] Ivorian Speaker documented in this encounter Plan of Treatment Not on file documented as of this encounter Visit Diagnoses Not on filedocumented in this encounter Care Teams Bread Dumper Relationship Specialty Start Date End Date Cristian Chacon MD [address] [place] [address] PCP - General Internal Medicine 03/17/19 Ivy Payne Lead PressmanBit Sander 03/03/23 11/25/23 Ivy Payne Furnace CaretakerBit Sander 11/26/23 documented as of this encounter
--- OUTSIDE RECORDS SUMMARY | 2024-05-26 08:32 | XMS_ITS | Encounter Summary ---
Author Organization [employer] Address [address] 7t [place] [address] Care Team Providers Care Unhairing Machine Operator Name Role Phone Cristian Chacon MD Primary Care Prov ider Encounter Details Date Type Department Care Team (Late st Contact Info) Description 03/22/2024 Orders Only [facility] CHC MED & PEDS [address] [place], [place] [phone] Provider, MD Roderick Social History Tobacco Use [...] documented as of this encounter Care Teams Unhairing Machine Operator Relationship Specialty Start Date End Date Cristian Chacon MD [address] [place] [address] PCP - General Internal Medicine 03/17/19 Ivy Payne Facility TechnicianCheckroom Attendant 11/26/23 documented as of this encounter
--- OUTSIDE RECORDS SUMMARY | 2024-05-26 08:32 | XMS_ITS | Encounter Summary ---
Author Organization [employer] Address [address]t [place] [address] Care Team Providers Care Cigar Inspector Name Role Phone Cristian Chacon MD Primary Care Prov ider Encounter Details Date Type Department Care Team (Late st Contact Info) Description 05/02/2024 Orders Only [facility] External Provider, [facility] Social History Tobacco Use Types [...] EST Narrative 05/03/2024 9:18 AM EST ? [facility] ?[address] ?[place] [address] ? Ultrasound Report ? Signed ? Patient: Scarlett Liriano ?MR#: [id number] ?? [id number] ? : 1970 ?Acct:[id number] ? Age/Sex: 53 / F ?ADM Date: 05/02/24 ? Loc: HO.US ? Attending Dr: Gavino Wynne MD ? Ordering Physician: Gavino Wynne MD ?? Date of Service: 05/02/24 ?? Procedure(s): US pelvic and transvaginal ?? Accession Number(s): [id number] ? cc: Saskia Rosas MD; Gavino Wynne [...] ? DD/ 5 ? TD/TT: 05/03/24915 ? Brick Carrier: ? Procedure Note Donguilleter, Image - 05/03/[address] [address] Ultrasound Report Signed Patient: Scarlett LirianoMR#: [id number] : 1970Acct:[id number] Age/Sex: 53 / FADM Date: 05/02/24 Loc: HO.US Attending Dr: Gavino Wynne MD Ordering Physician: Gavino Wynne MD Date of Service: 05/02/24 Procedure(s): US pelvic and transvaginal Accession Number(s): [id number] cc: Saskia Rosas MD; Gavino Wynne MD [...] in OV> 05/03/24916 DD/ 5 TD/TT: 05/03/24915 Brick Carrier: us [facility] External Provider IMG US PROCEDURES Final Result documented in this encounter Visit Diagnoses Not on filedocumented in this encounter Additional Health Concerns Assessment Noted Time PHQ-9 Depression Total Score: 16 024 1:19 PM EDT documented as of this encounter Care Teams Cigar Inspector Relationship Specialty Start Date End Date Cristian Chacon MD [address] [place] [address] PCP - General Internal Medicine 03/17/19 Ivy Payne Document Control AssociateMediator 11/26/23 documented as of this encounter
--- OUTSIDE RECORDS SUMMARY | 2024-05-26 08:32 | XMS_ITS | Encounter Summary ---
Author Organization [employer] Address [address] [facility] 7t [place] [address] Care Team Providers Care Food Service Hotel Runner Name Role Phone Cristian Chacon MD Primary Care Prov ider Reason for Visit * Reason Onset Date Comments ER Follow-up 03/23/2024 Nurse Triage 03/23/2024 Encounter Details Date Type Department Care Team ([facility] st Contact Info) Description 03/23/2024 Telephone [facility] [address] [place] [address] Cristian Chacon MD [address] [place] [address] ER Follow-up; Nurse Triage Social History Tobacco [...] 11:51 AM [place] [id number] Jose Alberto Pt was seen in [facility] ED 03/19/24 , (report is on [...] is offered an apt this Thursday at [facility] with provider but, requests to only see [...] 03/23/2024 9:50 AM EST Tc from pt pharmacist critical care calling to report ED visit on : Date: 03/19 Hospital: [facility] Seen for: Chest pain, Abdominal pain. Symptomatic Yes (Can't walk normally) *if yes message should go to Triage Patient advised will forward to team nurse for follow up [phone] nepali documented in this encounter Plan of Treatment Not on file documented as of this encounter Visit Diagnoses Not on filedocumented in this encounter Additional Health Concerns Assessment Noted Time PHQ-9 Depression Total Score: 16 024 1:19 PM EDT documented as of this encounter Care Teams Food Service Hotel Runner Relationship Specialty Start Date End Date Cristian Chacon MD [address] [place] [address] PCP - General Internal Medicine 03/17/19 Ivy Payne Anchor OperatorWildlife Management Professor 11/26/23 documented as of this encounter
--- OUTSIDE RECORDS SUMMARY | 2024-05-26 08:32 | XMS_ITS | Encounter Summary ---
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 Pt stated she had not picked up the Benadryl yet for rash itchiness. She will do so. Also, pt's thinner sprayer has retired. She would like PCP to [...] on filedocumented in this encounter Care Teams Recycling Sorter Relationship Specialty Start Date End Date Cristian Chacon MD [address] [place] [phone] PCP - General Internal Medicine 03/17/19 Ivy Payne Diesel Truck DriverBpm Solution Architect 03/03/23 11/25/23 Ivy Payne Security RepresentativeBpm Solution Architect 11/26/23 documented as of this encounter
--- OUTSIDE RECORDS SUMMARY | 2024-05-26 08:32 | XMS_ITS | Encounter Summary ---
Author Organization [facility] Address [address] [place] [address] Care Team Providers Care Family Centered Specialist Name Role Phone Cristian Chacon MD Primary Care Prov ider Reason for Visit * Reason Onset Date Comments PAC Form/Letter/Records Request 04/21/2024 Encounter Details Date Type Department Care Team ([facility] st Contact Info) Description 04/21/2024 Telephone [facility] 4th floor Cardiology Medicine [address] [place] [phone] Center Lead Consultant: Mary Arriaga Telephone Intake, Staff PAC Form/Letter/Records [...] you at if we have any questions? [phone] PAC called out to book this appt with the pt, she is asking for an appt letter with the address, date/time and provider's name The address on file is correct and she can be reached at [phone] for any questions Thank you documented in this encounter Plan of Treatment Upcoming Encounters Date Type Department Care Team (Late st Contact Info) Description 06/01/2024 9:00 AM EDT Office Visit [facility] Building 4th floor Cardiology Medicine [address] [place] [phone] Center Lead Consultant: Hemal Fritz MD [address] [place] [phone] 08/02/2024 1:30 PM EDT Follow-Up [facility] [address] [place] [address] Center Lead Consultant: Morales Ramsey MD [address] [place] [phone] 08/16/2024 2:00 PM EDT Office Visit [facility] [address] [place] [address] Center Lead Consultant: Dennis Laguna MD [address] [place] [phone] Scheduled Procedures Name Priority Associated Diagnoses Date/Ti me ARTHROSCOPY, SHOULDER, WITH ROTATOR CUFF REPAIR Chronic left shoulder pain ARTHROSCOPY, SHOULDER, DEBRI RONAL, EXTENSIVE Chronic left shoulder pain ARTHROSCOPY, SHOULDER, BICEP S TENODESIS Chronic left shoulder pain documented as of this encounter Visit Diagnoses Not on filedocumented in this encounter Care Teams Family Centered Specialist Relationship Specialty Start Date End Date Cristian Chacon MD [address] [place] [phone] PCP - General 06/04/22 documented as of this encounter
--- OUTSIDE RECORDS SUMMARY | 2024-05-26 08:32 | XMS_ITS | Encounter Summary ---
Author Organization [employer] Address [address] [facility] [address] 7t [place] [address] Care Team Providers Care Quick Service Technician Name Role Phone Cristian Chacon [...] Whole Blood 76 60 - 115 mg/dL [facility] Comment:METER #: [id number] 05/03/2024 5:15 PM EST 05/03/2024 5:51 PM EST Generic External Data Provider LAB BLOOD ORDERAB LES Final Result Performing Organization Address [facility] de Phone Number [facility] [address] [place] [phone] * High Sensitivity Troponin I (05/03/2024 5:08 PM EST) [facility] TROPONIN I HIGH SENSITIVITY 7.4 <3.5 - 17.0 ng/L [facility] Comment:The [facility] high sens itivity Troponin-I results should beused in conjunction with other diagnostic information suchas ECG, clinical observations and information, and patientsymptoms to aid in the diagnosis of ME. 05/03/2024 5:08 PM EST 05/03/2024 5:12 PM EST Generic External Data Provider LAB BLOOD ORDERAB LES Final Result Performing Organization Address [facility] Co de Phone Number [facility] [address] [place] [phone] * Prothrombin Time-INR (05/03/2024 5:08 PM EST) Pathologist [facility] Prothrombin Time 11.7 10.9 - 12.4 SEC [facility] INTERNATIONAL NORM RATIO 1.0 0.9 - 1.1 [facility] Comment:INTERNATIONAL NORMAL IZED RATIO (INR) [...] ORDERAB LES Final Result Performing Organization Address [facility] Co de Phone Number [facility] [address] [place] [phone] * SARS-CoV-2 RNA, Influenza A/B, and RSV RNA, Ql NAAT (05/03/2024 11:04 AM EST) Influenza A PCR NEGATIVE Negative [facility] Influenza B PCR NEGATIVE Negative [facility] Resp Syncy Virus RNA Qual PCR NEGATIVE Negative [facility] SARS COV2 PCR NEGATIVE Negative [facility] Comment:All test results mus t [...] use by authorized laboratories.Testing performed on the [employer] GeneXpert utilizingreal-time RT-PCR.All SARS CoV2 and positive influenza A/B results arereported to [facility]. 05/03/2024 11:0 4 AM EST 05/03/2024 11:12 AM EST Generic External Data Provider LAB MICROBIOLOGY - GENERAL ORDERABLES Final Result Performing Organization Address [facility] Co de Phone Number [facility] [address] [place] [phone] * High Sensitivity Troponin I (05/03/2024 11:04 AM EST) Pathologist [facility] TROPONIN I HIGH SENSITIVITY <2.7 <3.5 - 17.0 ng/L [facility] Comment:The [facility] high sens itivity Troponin-I results should beused in conjunction with other diagnostic information suchas ECG, clinical observations and information, and patientsymptoms to aid in the diagnosis of ME. 05/03/2024 11:0 4 AM EST 05/03/2024 11:12 AM EST us Generic External Data Provider LAB BLOOD ORDERAB LES Final Result Performing Organization Address [facility] Co de Phone Number [facility] [address] [place] [phone] * B Type Natriuretic Peptide (BNP) (05/03/2024 11:04 AM EST) [facility] B Type Natriuretic Peptide 44 <100 pg/mL [facility] Comment:For those patients w ho are being treated with Natrecor(nesiritide, recombinant BNP), BNP testing should beperformed at least two hours post treatment in order toensure that only endogenous levels of BNP are detected. 05/03/2024 11:0 4 AM EST 05/03/2024 11:12 AM EST us Generic External Data Provider LAB BLOOD ORDERAB LES Final Result Performing Organization Address [facility] Co de Phone Number [facility] [address] [place] [phone] * Lipase (05/03/2024 11:04 AM EST) Pathologist [facility] Lipase 37 8 - 78 U/L [facility] 05/03/2024 11:0 4 AM EST 05/03/2024 11:12 AM EST us Generic External Data Provider LAB BLOOD ORDERAB LES Final Result Performing Organization Address [facility] Co de Phone Number [facility] [address] [place] [phone] * (ABNORMAL) C-reactive Protein (05/03/2024 11:04 AM EST) C Reactive Protein 3.79(H) < or = 0.50 mg/dL [facility] 05/03/2024 11:0 4 AM EST 05/03/2024 11:12 AM EST us Generic External Data Provider LAB BLOOD ORDERAB LES Final Result Performing Organization Address [facility] Co de Phone Number [facility] [address] [place] [phone] * Creatine Kinase, Total (05/03/2024 11:04 AM EST) Creatine Kinase Total 35 26 - 140 U/L [facility] 05/03/2024 11:0 4 AM EST 05/03/2024 11:12 AM EST Generic External Data Provider LAB BLOOD ORDERAB LES Final Result Performing Organization Address [facility] Co de Phone Number [facility] [address] [place] [phone] * Magnesium (05/03/2024 11:04 AM EST) Magnesium 2.1 1.6 - 2.6 mg/dL [facility] 05/03/2024 11:0 4 AM EST 05/03/2024 11:12 AM EST Generic External Data Provider LAB BLOOD ORDERAB LES Final Result Performing Organization Address [facility] Co de Phone Number [facility] [address] [place] [phone] * (ABNORMAL) Basic Metabolic Panel (05/03/2024 11:04 AM EST) Sodium 140 135 - 145 mmol/L [facility] Potassium 3.5 3.3 - 5.1 mmol/L [facility] Chloride 108 96 - 108 mmol/L [facility] Carbon Dioxide 23 22 - 29 mmol/L [facility] Anion Gap 13 12 - 20 [facility] Urea Nitrogen (BUN) 18(H) 9 - 16 mg/dL [facility] Creatinine, Serum 0.70 0.5 - 1.4 mg/dL [facility] Creatinine Clr Calc Pharmacy 91.1 [facility] Comment:Provided height and weight: 152.4 cm,90.718 kg.eGFR (calculated from the MDRD study equation) and eCrCl(calculated from the Cockcroft-Gault equation) are based ondifferent parameters and may not yield comparable results.If eCrCl result is absurd, please check patient'sheight/weight. Estimated Glomerular Filt Rate >60 [facility] Comment:Chronic Kidney Disea se: Estimated GFR < 60 mL/min/[id number] Kidney Disease: Estimated GFR < 15 mL/min/1.73m2 Glucose 179(H) 60 - 115 mg/dL [facility] Calcium 8.6 8.4 - 10.2 mg/dL [facility] 05/03/2024 11:0 4 AM EST 05/03/2024 11:12 AM EST us Generic External Data Provider LAB BLOOD ORDERAB LES Final Result [facility] [address] [place] [phone] * Hepatic Function Panel (05/03/2024 11:04 AM EST) Pathologist [facility] Bilirubin, Total 0.5 0.0 - 1.0 mg/dL [facility] Bilirubin, Direct 0.2 0.0 - 0.5 mg/dL [facility] Aspartate Amino Transferase 14 5 - 31 U/L [facility] Alanine Aminotransferase 13 0 - 31 U/L [facility] Total Protein 7.0 6.5 - 8.0 g/dL [facility] Albumin Level 3.5 3.5 - 5.0 g/dL [facility] Alkaline Phosphatase 54 39 - 117 U/L [facility] 05/03/2024 11:0 4 AM EST 05/03/2024 11:12 AM EST us Generic External Data Provider LAB BLOOD ORDERAB LES Final Result [facility] [address] [place] [address] [phone] * (ABNORMAL) CBC auto differential (05/03/2024 11:04 AM EST) White Blood Count 8.1 4.8 - 10.8 X10*3/uL [facility] Red Blood Count 4.07(L) 4.20 - 5.50 X10*6/uL [facility] Hemoglobin 11.9(L) 12.0 - 16.0 g/dl [facility] Hematocrit 35.8(L) 37.0 - 47.0 % [facility] Mean Corpuscular Volume 88.0 80.0 - 98.0 fL [facility] Mean Corpuscular Hemoglobin 29.2 27.0 - 33.0 pg [facility] Mean Corpuscular HGB Conc 33.2 31.0 - 35.0 g/dl [facility] Red Cell Distribution Width 14.4 11.0 - 16.0 % [facility] Platelet Count 339 160 - 400 X10*3/uL [facility] Mean Platelet Volume 9.3(L) 9.4 - 12.3 fL [facility] Neutrophils Percent Auto 83.7(H) 45 - 73 % [facility] Imm Gran Pct Auto 0.6(H) 0.0 - 0.4 % [facility] Lymphocytes Percent Auto 11.5(L) 20 - 40 % [facility] Monocytes Percent Auto 3.6 2 - 11 % [facility] Eosinophils Percent Auto 0.5 0 - 4 % [facility] Basophils Percent Auto 0.1 0 - 2 % [facility] NRBC Pct Auto 0.0 0.0 - 0.2 /100WBC [facility] Neutrophils Absolute Auto 6.7 2.0 - 8.3 x10*3/uL [facility] Imm Gran Abs Auto 0.05(H) 0.00 - 0.03 X10*3/uL [facility] Lymphocytes Absolute Auto 0.9(L) 1.2 - 4.9 X10*3/uL [facility] Monocytes Absolute Auto 0.3 0.1 - 1.2 X10*3/uL [facility] Eosinophils Absolute Auto 0.0 0.0 - 0.4 X10*3/uL [facility] Basophils Absolute Auto 0.0 0.0 - 0.2 X10*3/uL [facility] NRBC Abs Auto 0.000 0.0 - 0.012 X10*3/uL [facility] 05/03/2024 11:0 4 AM EST 05/03/2024 11:12 AM EST us Generic External Data Provider LAB BLOOD ORDERAB LES Final Result Performing Organization Address City/State/[facility] Co de Phone Number [facility] [address] [place] [address] [phone] * XR Chest 1 View (05/03/2024 10:40 AM EST) Anatomical Region Laterality Modality Chest Radiographic Amanda ging 05/03/2024 10:4 0 AM EST Narrative 05/03/2024 11:39 AM EST ? [facility] ?[address] ?[place] [address] ?XRay Report ? Signed ? Patient: Liriano,Scarlett ?MR#: [id number] ?? [id number] ? : 1970 ?Acct:[id number] ? Age/Sex: 53 / F ?ADM Date: 03/04/25 ? Loc: HO.ED ? Attending Dr: ? Ordering Physician: Dana Montenegro DO ?? Date of Service: 05/03/24 ?? Procedure(s): XR chest 1V ?? Accession Number(s): [id number] ? cc: Cristian Chacon MD; Dana Montenegro [...] DD/ 1040 ? TD/TT: 05/03/24 1100 ? Round Kiln Drawer: MSM ? Procedure Note Makenna Vazquez - 05/03/2024 [place] [address] XRay Report Signed Patient: Scarlett LirianoMR#: [id number] : 1970Acct:[id number] Age/Sex: 53 / FADM Date: 05/03/24 Loc: HO.ED Attending Dr: Ordering Physician: Dana Montenegro DO Date of Service: 05/03/24 Procedure(s): XR chest 1V Accession Number(s): [id number] cc: Cristian Chacon MD; Dana Montenegro DO [...] bibasilar scarring and/or atelectasis. Electronically signed by: Oil Schmidt MD 05/03/2024 11:36 AM EST Dictated By: Oli Schmidt MD Signed By: <Electronically signed by Oli Schmidt MD in OV> 05/03/24 1136 DD/ 1040 TD/TT: 05/03/24 1100 Round Kiln Drawer: [facility] External Provider IMG XR PROCEDURES Final Result documented in this encounter Visit Diagnoses Not on filedocumented in this encounter Additional Health Concerns Assessment Noted Time PHQ-9 Depression Total Score: 16 12/21/ 024 1:19 PM EDT documented as of this encounter Care Teams Quick Service Technician Relationship Specialty Start Date End Date Cristian Chacon MD [address] [place] [phone] PCP - General Internal Medicine 03/17/19 Ivy Payne Motorcoach OperatorStaff Submarine Warfare Officer 11/26/23 documented as of this encounter
--- OUTSIDE RECORDS SUMMARY | 2024-05-26 08:32 | XMS_ITS | Encounter Summary ---
Author Organization [employer] Address [address] [facility] 7t [place] [address] Care Team Providers Care Firing Pin Gauger Name Role Phone Cristian Chacon MD Primary Care Prov ider Reason for Visit * Reason Comments Med Refill Encounter Details Date Type Department Care Team ([facility] Contact Info) Description 02/27/[address] [facility] & PEDS [address] [place], [place] [phone] Cristian Chacon MD [address] [place] [address] Social History Tobacco Use Types Packs/Day Years [...] documented as of this encounter Care Teams Firing Pin Gauger Relationship Specialty Start Date End Date Cristian Chacon MD [address] [place] [phone] PCP - General Internal Medicine 03/17/19 Ivy Payne Dietitian HelperDoor Hanger 11/26/23 documented as of this encounter
--- OUTSIDE RECORDS SUMMARY | 2024-05-26 08:33 | XMS_ITS | Encounter Summary ---
Author Organization [employer] Address [address] [address] [place] [address] Care Team Providers Care Process Area Supervisor Name Role Phone Cristian Chacon MD Primary Care Prov ider Encounter Details Date Type Department Care Team ([facility] st Contact Info) Description 05/24/2024 Telephone [facility] P[facility]S [address] [place], [place] [phone] Cristian Chacon MD [address] [place] [phone] Social History Tobacco Use Types Packs/Day Years [...] got upset with the ladies at the table and desk finisher. RN took patient back and put her in a room. She is upset bc she needs pull-ups and not diapers. (Wrong one was ordered, and missing diagnosis code.) The correct pull- ups were requested and correct ICD-10 code applied and paperwork sent to [facility]. Copies made for patient to waste picker. Patient also upset bc she never received a blood glucose machine, lancets, or strips. All these things were sent to [facility], but patient states they never received the items. All items re-ordered and sent to [facility] pharmacy per patient request. documented in this encounter Plan of Treatment Not on file documented as of this encounter Visit Diagnoses Diagnosis Type 2 diabetes mellitus without complication, without long-term current use of insulin ([facility]) documented in this encounter Additional Health Concerns Assessment Noted Time PHQ-9 Depression Total Score: 16 024 1:19 PM EDT documented as of this encounter Care Teams Process Area Supervisor Relationship Specialty Start Date End Date Cristian Chacon MD [address] [place] [address] PCP - General Internal Medicine 03/17/19 Ivy Payne Frame Table OperatorRf Technician 11/26/23 documented as of this encounter
--- OUTSIDE RECORDS SUMMARY | 2024-05-26 08:33 | XMS_ITS | Encounter Summary ---
Author Organization [employer] Address 75 [facility] 7t [place] [address] Care Team Providers Care Joy Loader Name Role Phone Cristian Chacon MD Primary Care Prov ider Reason for Visit * Reason Comments Care Coordination C3CM/WILLIAM Sandoval initial assessment rescheduled Encounter Details Date Type Department Care Team (Latest Contact Info) Description 05/13/2024 Patient Outreach [facility] MEDICINE [address] [place] [address] Cristian Chacon MD [address] [place] [address] Care Coordination (C3JAMEL/WILLIAM Khanna initial assessment rescheduled) [...] notify CM. CHW provided contact information of [phone] for any questions or concerns. documented in this encounter Plan of Treatment Not on file documented as of this encounter Visit Diagnoses Not on filedocumented in this encounter Additional Health Concerns Assessment Noted Time PHQ-9 Depression Total Score: 16 024 1:19 PM EDT documented as of this encounter Care Teams Joy Loader Relationship Specialty Start Date End Date Cristian Chacon MD [address] [place] [address] PCP - General Internal Medicine 03/17/19 Ivy Payne Japanese ProfessorGeography Professor 11/26/23 documented as of this encounter
--- OUTSIDE RECORDS SUMMARY | 2024-05-26 08:33 | XMS_ITS | Encounter Summary ---
Author Organization [employer] [facility] Address 75 [facility] 7t [place] [address] Care Team Providers Care Tonnage Compilation Clerk Name Role Phone Cristian Chacon MD Primary Care Prov ider Encounter Details Date Type Department Care Team ([facility] st Contact Info) Description 05/13/2024 Population Health Risk Score [facility] (C3) Department 75 [facility] 7 [place] [address] Provider, Population Health Generic Social [...] documented as of this encounter Care Teams Tonnage Compilation Clerk Relationship Specialty Start Date End Date Cristian Chacon MD [address] [place] [address] PCP - General Internal Medicine 03/17/19 Ivy Payne Casket TrimmerKeyboarding Teacher 11/26/23 documented as of this encounter
--- OUTSIDE RECORDS SUMMARY | 2024-05-26 08:33 | XMS_ITS | Encounter Summary ---
Author Organization [employer] Address 75 [facility] 7t [place] [address] Care Team Providers Care Solution Strategist Name Role Phone Cristian Chacon MD Primary Care Prov ider Reason for Visit * Reason Comments Med Refill Encounter Details Date Type Department Care Team ([facility] Contact Info) Description 05/24/2024 Refill [facility] MEDICINE [address] [place], [place] [phone] Cristian Chacon MD [address] [place] [address] Social History Tobacco Use Types Packs/Day Years [...] documented as of this encounter Care Teams Solution Strategist Relationship Specialty Start Date End Date Cristian Chacon MD [address] [place] [address] PCP - General Internal Medicine 03/17/19 Ivy Payne Lobby PorterFlight Purser 11/26/23 documented as of this encounter
== END 2024-05-26 09:31 | disposition home or self-care (01) ==
LOC: HO.HSMS 08:12
PROVIDERS: PCP Internal Medicine; Visit Provider Nurse Practitioner Family
DX: G43.009 Migraine without aura, not intractable, without status migrainosus (principal); G51.32 Clonic hemifacial spasm, left; G80.9 Cerebral palsy, unspecified
CPT/HCPCS: 99214

== ENCOUNTER → 2024-05-26 08:12 | Outpatient (BNVA) | payer MEDICAID, SELFPAY | PROVIDERS: PCP Internal Medicine; Visit Provider Nurse Practitioner Family | DX: G51.32 Clonic hemifacial spasm, left (principal); G43.009 Migraine without aura, not intractable, without status migrainosus; G80.9 Cerebral palsy, unspecified | CPT/HCPCS: 99212 ==

== ENCOUNTER 2024-06-02 12:29 | Outpatient (AMB) | payer MEDICAID, SELFPAY ==
--- NOTE | 2024-06-02 12:43 | MHC.OFFVIS ---
Vital Signs 06/02/24 12:45 Height 5 ft Weight 209 lb BMI 40.8 Intake Visit Reasons: Ultrasound follow up Alarm Service Technician Required: Yes Alarm Service Technician Language: Tobacco Stripping Machine Operator Services: Alarm Service Technician Present (in person) Alarm Service Technician Name: Tamera JOHNS Information Interpreted: non-clinical & clinical Accompanied by: Self / Same As Patient Allergies duloxetine [From CYMBALTA] Allergy (Unknown, Verified 06/02/24 12:46) UNKNOWN pregabalin [From LYRICA] Allergy (Unknown, Verified 06/02/24 12:46) UNKNOWN meperidine [From DEMEROL] Adverse Reaction (Intermediate, Verified 06/02/24 12:46) N/V oxycodone [From Percocet] Adverse Reaction (Intermediate, Verified 06/02/24 12:46) itching Post menopausal: Yes HPI Comments Details: Presenting for follow-up regarding her pelvic pain. The patient is doing well. The following workup was done so far: Last visit urine dip was negative Pelvic ultrasound showed the following: Transvaginal scanning performed. The uterus and right ovary have been removed. No right adnexal masses. Left ovary 2.6 x 2.1 x 1.4 cm. This ovary contains what appears to be multiple small follicles. Normal color Doppler of the left ovary. No free fluid. [facility] Medical History Pre-op examination Hemifacial spasm Abdominal pain Pelvic pain in female Bilateral shoulder pain Vulvar irritation WISE (nonalcoholic steatohepatitis) Elevated antinuclear antibody (FELI) level FELI positive Encounter to discuss test results Hemifacial spasm of left side of face Peptic ulcer disease Esophageal spasm Family history of cerebral aneurysm Fibromyalgia Irritable bowel syndrome with both constipation and diarrhea History of meningitis Surgical History History of esophagogastroduodenoscopy (EGD) Keloid of skin H/O neck surgery Hx of section Hx of hysterectomy Hx of breast lump removal (~2019) History of bladder suspension procedure H/O bilateral breast reduction surgery Family History Mother Aneurysm Endometrial cancer Father No problems noted. Social History Alcohol intake: never Patient Tobacco Use Status: Never used Tobacco Sexual orientation: Straight/Heterosexual Gender identity: Female Review of Systems Const All systems reviewed & are unremarkable except as noted in HPI and below Reports as per HPI and Reports no additional complaints GI Reports no additional complaints Reports no additional complaints Physical Exam Vital Signs: BMI result Body Mass Index 40.8 Assessment & Plan Assessment & Plan (1) Chronic pelvic pain in female: Code(s): R10.2 - Pelvic and perineal pain; G89.29 - Other chronic pain Category: Medical Plan: Discussed with the patient the results of the workup done including negative urine dip, and pelvic ultrasound. Differential diagnosis of asphalt paving foreman causes that have not be ruled out yet include but not limited to pelvic adhesions , or others. Recommended for the patient to see her PCP for further workup for non asphalt paving foreman causes; if the all the results are negative and the patient's pelvic pain is persistent, instructions given to patient to call back for further testing. Meanwhile, instructions were given the patient to go to emergency room or call in case of fever above 100.4, heavy vaginal bleeding, persistence or worsening of her pelvic pain. All questions answered, the patient verbalized understanding. Coding Level of Care Code Est Pt Level 3 (12829) Diagnoses Chronic pelvic pain in female R10.2; G89.29
[2024-06-02 12:45] VITALS: BMI 40.8
--- OUTSIDE RECORDS SUMMARY | 2024-06-02 13:34 | XMS_ITS | Encounter Summary ---
Author Organization [employer] Address 75 [facility] 7t [place] [address] Care Team Providers Care Wheat Buyer Name Role Phone Cristian Chacon MD Primary Care Prov ider Encounter Details Date Type Department Care Team ([facility] Contact Info) Description 11/19/2023 Orders Only [facility] [address] [place] [address] Provider, MD Roderick Social History Tobacco Use [...] documented as of this encounter Care Teams Wheat Buyer Relationship Specialty Start Date End Date Cristian Chacon MD [address] [place] [address] PCP - General Internal Medicine 03/17/19 Ivy Payne Signs CleanerParcel Post Weigher 03/03/23 11/25/23 Ivy Payne Production AssistantParcel Post Weigher 11/26/23 documented as of this encounter
--- OUTSIDE RECORDS SUMMARY | 2024-06-02 13:34 | XMS_ITS | Encounter Summary ---
Author Organization [employer] Address 75 [facility] 7t [place] [address] Care Team Providers Care Health Professor Name Role Phone Cristian Chacon MD Primary Care Prov ider Reason for Visit * Reason Comments Med Change Request Encounter Details Date Type Department Care Team ([facility] Contact Info) Description 08/31/2023 Refill [facility] [address] [place], [place] [phone] Cristian Chacon MD [address] [place] [address] Social History Tobacco Use Types Packs/Day Years [...] as of this encounter Care Teams Health Professor Relationship Specialty Start Date End Date Cristian Chacon MD [address] [place] [address] PCP - General Internal Medicine 03/17/19 Ivy Payne Fuel Distribution System OperatorUtility Teller 03/03/23 11/25/23 Ivy Payne Camera Tuning EngineerUtility Teller 11/26/23 documented as of this encounter
--- OUTSIDE RECORDS SUMMARY | 2024-06-02 13:34 | XMS_ITS | Encounter Summary ---
Author Organization [employer] Address [address] [facility] [address] 7t [place] [address] Care Team Providers Care Financial Sales Advisor Name Role Phone Cristian Chacon MD Primary Care Prov ider Encounter Details Date Type Department Care Team (Late st Contact Info) Description 09/04/2023 Orders Only [facility] MED & PEDS [address] [place], [place] [phone] Cristian Chacon MD [address] [place] [address] Social History Tobacco Use Types Packs/Day Years [...] documented as of this encounter Care Teams Financial Sales Advisor Relationship Specialty Start Date End Date Cristian Chacon MD [address] [place] [address] PCP - General Internal Medicine 03/17/19 Ivy Payne Wrapper SelectorWarehouse Attendant 03/03/23 11/25/23 Ivy Payne Cook CandyWarehouse Attendant 11/26/23 documented as of this encounter
--- OUTSIDE RECORDS SUMMARY | 2024-06-02 13:34 | XMS_ITS | Encounter Summary ---
Author Organization [employer] Address [address] [facility] [address] 7[address] [place] [address] Care Team Providers Care Engine Testing Supervisor Name Role Phone Cristian Chacon MD Primary Care Prov ider Encounter Details Date Type Department Care Team ([facility] st Contact Info) Description 08/25/2023 Telephone [facility] MED & PEDS [address] [place], [place] [phone] Cristian Chacon MD 505 [place] [address] Social History Tobacco Use Types Packs/Day Years [...] documented as of this encounter Care Teams Engine Testing Supervisor Relationship Specialty Start Date End Date Cristian Chacon MD [address] [place] [address] PCP - General Internal Medicine 03/17/19 Ivy Payne Labor Standards DirectorMechanical Insulator 03/03/23 11/25/23 Ivy Payne Supervisor SampleMechanical Insulator 11/26/23 documented as of this encounter
--- OUTSIDE RECORDS SUMMARY | 2024-06-02 13:34 | XMS_ITS | Encounter Summary ---
Author Organization [employer] Address 75 [facility] 7t [place] [address] Care Team Providers Care Lead Recoverer Name Role Phone Cristian Chacon MD Primary Care Prov ider Encounter Details Date Type Department Care Team ([facility] Contact Info) Description 01/11/2024 Orders Only [facility] [address] [place] [address] Provider, MD Roderick Social History Tobacco Use [...] as of this encounter Care Teams Lead Recoverer Relationship Specialty Start Date End Date Cristian Chacon MD [address] [place] [address] PCP - General Internal Medicine 03/17/19 Ivy Payne Medicare Sales ExecutiveEducation Research Analyst 11/26/23 documented as of this encounter
--- OUTSIDE RECORDS SUMMARY | 2024-06-02 13:34 | XMS_ITS | Encounter Summary ---
Author Organization [employer] Address [address] [facility] [address] 7t [place] [address] Care Team Providers Care Engine Repairer Name Role Phone Cristain Chacon MD Primary Care Prov ider Encounter Details Date Type Department Care Team ([facility] st Contact Info) Description 12/22/[address] [facility] MED & PEDS [address] [place], [place] [phone] Cristian Chacon MD 505 [place] [address] Social History Tobacco Use Types Packs/Day Years [...] as of this encounter Care Teams Engine Repairer Relationship Specialty Start Date End Date Cristian Chacon MD [address] [place] [address] PCP - General Internal Medicine 03/17/19 Ivy Payne News ReporterRoad Machine Runner 11/26/23 documented as of this encounter
--- OUTSIDE RECORDS SUMMARY | 2024-06-02 13:34 | XMS_ITS | Encounter Summary ---
Author Organization [employer] Address 75 [facility] 7t [place] [address] Care Team Providers Care Produce Shipper Name Role Phone Cristian Chacon MD Primary Care Prov ider Reason for Visit * Reason Onset Date Comments Nurse Triage 08/24/2023 Encounter Details Date Type Department Care Team ([facility] st Contact Info) Description 08/24/2023 Telephone [facility]S [address] [place], [place] [phone] Cristian Chacon MD 505 [place] [address] Nurse Triage Social History Tobacco Use Types [...] 08/24/2023 10:26 AM EDT Triage call with [place] [id number] Pt reports rash has developed on upper, inner thighs and has spread to private area . Pt describesrash as red, bumpy and itchy. Pt reports some irritation vaginally and burning with urination. Burning is described as occurring when urine contacts rash but, may have other urinary symptoms as well.This is not clear to triage nurse. Advised Pt to come to [facility] today at 230pm. Pt agrees [...] accepted this outcome Please contact pt at [phone] (trade union official) documented in this encounter Plan of Treatment Not on file documented as of this encounter Visit Diagnoses Not on filedocumented in this encounter Additional Health Concerns Assessment Noted Time PHQ-9 Depression Total Score: 14 024 9:49 AM EST documented as of this encounter Care Teams Produce Shipper Relationship Specialty Start Date End Date Cristian Chacon MD [address] [place] [address] PCP - General Internal Medicine 03/17/19 Ivy Payne Transcribing Operator HeadAssessor 03/03/23 11/25/23 Ivy Payne Assembler For Puller Over MachineAssessor 11/26/23 documented as of this encounter
--- OUTSIDE RECORDS SUMMARY | 2024-06-02 13:35 | XMS_ITS | Clinical Summary ---
Author Organization [facility] Address [address] [place] [address] Care Team Providers Care Senior Software Quality Analyst Name Role Phone Unavailable Primary Care Provider [...]
--- OUTSIDE RECORDS SUMMARY | 2024-06-02 13:35 | XMS_ITS | Encounter Summary ---
Author Organization [facility] Address [address] [place] [address] Care Team Providers Care Tumblers Supervisor Name Role Phone Cristian Chacon MD Primary Care Prov ider Reason for Visit * Reason Onset Date Comments Rosacea 08/09/2021 Pt is calling to schedule a new pt apt for rosacea. Please call pt at [phone] Encounter Details Date Type Department Care Team ([facility] Contact Info) Description 08/09/2021 Telephone [facility] Central Scheduling Department [address] [place] [address] Telephone Intake, Staff Rosachristopher (Pt is calling to schedule a new pt apt for rosacea. Please call pt at [phone]) Social History Tobacco Use Types Packs/Day Years [...] 10:51 AM EDT Documentation purpose. lvm at [phone]. Pt is calling to schedule a new pt apt for rosacea. Please call pt at [phone] documented in this encounter Plan of Treatment Upcoming Encounters Date Type Department Care Team ([facility] [address] Contact Info) Description 08/02/2024 1:30 PM EDT Follow-Up [facility] [address] [place] [address] Specimen Preparation Assistant: Morales Ramsey MD [address] [place] [address] 08/16/2024 2:00 PM EDT Office Visit [facility] [address] [place] [address] Specimen Preparation Assistant: Dennis Laguna MD [address] [place] [address] Scheduled Procedures Name Priority Associated Diagnoses Date/Ti me ARTHROSCOPY, SHOULDER, WITH ROTATOR CUFF REPAIR Chronic left shoulder pain ARTHROSCOPY, SHOULDER, DEBRI RONAL, EXTENSIVE Chronic left shoulder pain ARTHROSCOPY, SHOULDER, BICEP S TENODESIS Chronic left shoulder pain documented as of this encounter Visit Diagnoses Not on filedocumented in this encounter Care Teams Tumblers Supervisor Relationship Specialty Start Date End Date Cristian Chacon MD [address] [place] [address] PCP - General 06/04/22 documented as of this encounter
--- OUTSIDE RECORDS SUMMARY | 2024-06-02 13:35 | XMS_ITS | Encounter Summary ---
Author Organization [employer] Address [address] [facility] [address] 7[address] [place] [address] Care Team Providers Care Blending Machine Operator Name Role Phone Cristian Chacon MD Primary Care Prov ider Encounter Details Date Type Department Care Team (Late st Contact Info) Description 02/19/2024 Orders Only [facility] MED & PEDS [address] [place] [address] Provider, MD Roderick Social History Tobacco Use [...] documented as of this encounter Care Teams Blending Machine Operator Relationship Specialty Start Date End Date Cristian Chacon MD [address] [place] [address] PCP - General Internal Medicine 03/17/19 Ivy Payne VeterinarianMalt House Kiln Operator 11/26/23 documented as of this encounter
--- OUTSIDE RECORDS SUMMARY | 2024-06-02 13:35 | XMS_ITS | Clinical Summary ---
Author Organization [employer] Address [address] [facility] [address] [place] [address] Care Team Providers Care Shake Maker Name Role Phone Cristian Chacon MD [...] ОЛЕГ TABLETA [facility] [place] [facility] 90 tablet 3 024 Active meclizine (Antivert) [...] at bedtime. 12 g 11 025 Active losartan (Cozaar) 25 MG tabletIndications :Primary hypertension TOME 1 TABLETA POR VIA ORAL TODOS [place] [facility] 90 tablet 3 025 Active Blood Glucose Monitoring Suppl (FreeStyle Lite) w/Device kit 1 Device Once per day. 1 kit 025 Active FREESTYLE LITE test stripIndications: Type 2 diabetes mellitus without complication, without long-term current use of insulin (CMS/[facility]) Use to test blood sugar 1 times daily 100 each 12 025 2025 Active Lancets 33G miscIndications:T ype 2 diabetes mellitus without complication, without long-term current use of insulin (CMS/HCC) 1 Units before breakfast. 100 each 11 025 Active loratadine (Claritin) 10 MG [...] eorder (will not trigger notification to Pharmacy)) losartan (Cozaar) 25 MG tablet Take 1 tablet (25 mg) by mouth in the morning. 90 tablet 3 024 2024 Discontinued fluticasone-salme terol (Advair HFA) 230-21 MCG/ACT inhaler Inhale 2 puffs in the morning and at bedtime. 12 g 025 2024 Discontinued(R eorder (will not trigger notification to Pharmacy)) fluticasone-salme terol (Advair HFA) 230-21 MCG/ACT inhalerIndication s:Multiple joint pain Inhale 2 puffs in the morning and at bedtime. 12 g 11 025 2024 Discontinued(R eorder (will not trigger notification to Pharmacy)) Lancets 33G miscIndications:T ype 2 diabetes mellitus without complication, without long-term current use of insulin (CMS/HCC) 1 Units before breakfast. 100 each 11 025 2024 Discontinued(R eorder (will not trigger notification to Pharmacy)) FREESTYLE LITE test stripIndications: Type 2 diabetes mellitus without complication, without long-term current use of insulin (CMS/[facility]) Use to test blood sugar 1 times daily 100 each 12 025 2024 Discontinued(R eorder (will not trigger notification to Pharmacy)) Lancets 33G miscIndications:T ype 2 diabetes mellitus without complication, without long-term current use of insulin ([facility]) 1 Units before breakfast. 100 [...] & Plan (05/17/2024 2:43 PM EDT): On magdalenaro, followed by endocrinology Assessment & Plan (11/10/2023 [...] Plan (08/10/2023 4:03 PM EDT): Referral to Film Librarian for further evaluation of symptoms. Ordering Stress [...] allergic will prescribe ketotifen, follow up with network architect manager, she has scheduled appointment already Pelvic pain 03/23/2023 Chronic pelvic pain in female 03/17/2023 Assessment & Plan (01/12/2024 6:12 PM EST): Patient wants to be followed at [place], will place referral Upper back pain 01/14/2023 [...] lateral foot pain, she has seen various cmo & president, she would like another opinion, she will [...] PM EST): Will place refferal to a event promotions coordinator Seborrheic dermatitis 04/10/2022 Assessment & Plan (06/29/2022 [...] to perform daily activities, she currently has [employer] services but the hours provided are not [...] LESION, MOST LIKELY HEMORRHAGIC OVARIAN CYST. 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 2.9 X 3.8 X 3 CM LEFT ADNEXAL CYSTIC LESION, MOST LIKELY HEMORRHAGIC OVARIAN CYST. 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 =17. Allergic rhinitis due to allergen 2008 Gastroesophageal reflux disease without esophagi tis 07/13/2007 Anxiety and depression 05/13/2007 Overview (03/07/2022): Overview: F/U [facility] (DR. NANCE). F/U [facility] (DR. NANCE). Hypothyroidism 05/13/2007 Overview (05/29/2022): [...] Insomnia 05/13/2007 Overview (05/29/2022): Overview: F/U AT [facility] (DR. NANCE). F/U AT [facility] (DR. NANCE). Mild persistent asthma 05/13/2007 Assessment & Plan (05/17/2024 2:45 PM EDT): On inhalers, no current exacerbation, continue same therapy Encounters Date Type Department Care Team Description 05/24/2024 Telephone [facility] [address] [place] [address] Cristian Chacon MD 05/24/2024 Refill [facility] [address] [place] [address] Cristian Chacon MD Primary hypertension 05/18/2024 Orders Only GENERIC EXTERNAL DATA DEPARTMENT Provider, Generic External Data 05/17/2024 1:30 PM EDT Office Visit [facility] [address] [place] [address] Cristian Chacon MD Screening for colon cancer (Primary Dx); Primary hypertension; Acquired hypothyroidism; Pre-diabetes; Mild persistent asthma, unspecified whether complicated; Mixed stress and urge urinary incontinence 05/17/2024 Travel 05/16/2024 Orders Only GENERIC EXTERNAL DATA DEPARTMENT Provider, Generic External Data 05/13/[address] [facility] [address] [place] [phone] Cristian Chacon MD Care Coordination ([facility] Parks initial assessment rescheduled) 05/13/2024 Population Health Risk Score [facility] (C3) Department [address] [place] [id number] Provider, Population Health Generic 05/11/2024 Telephone [facility] [address] [place] [address] Cristian Chacon MD status check 05/10/2024 3:30 PM EDT Office Visit [facility] [address] [place] [address] Eduarda Villeda MD Other chest pain (Primary Dx); Multiple joint pain; Moderate persistent asthma without complication; Type 2 diabetes mellitus without complication, without long-term current use of insulin ([facility]); Fall, initial encounter 05/10/2024 Travel 05/04/2024 Patient Outreach [facility] [address] [place] [address] Cristian Chacon MD Care Coordination (Outreach) 05/04/[address] [facility] [address] [place] [address] Cristian Chacon MD ER Follow-up 05/03/2024 Orders Only GENERIC EXTERNAL DATA DEPARTMENT Provider, Generic External Data 05/03/2024 Patient Outreach [facility] [address] [place] [address] Cristian Chacon MD Care Coordination (Outreach) 05/02/2024 Orders Only [facility] External Provider, [facility] 04/27/2024 Patient Outreach [facility] [address] [place] [address] Cristian Chacon MD Care Coordination (Outreach) 04/26/2024 11:00 AM EST Office Visit [facility] [address] [place] [address] Aida Rae MD Moderate persistent asthma without complication (Primary Dx) 04/26/2024 Travel 04/26/2024 Patient Outreach [facility] [address] [place] [address] Cristian Chacon MD Care Coordination (Outreach) 04/20/2024 Telephone [facility] [address] [place] [address] Cristian Chacon MD Durable Medical Equipment 04/14/[address] [facility] [address] [place] [phone] Cristian Chacon MD ER Follow-up 04/13/2024 10:45 AM EST Office Visit [facility] [address] [place] [address] Cristian Chacon MD Other chest pain (Primary Dx) 04/13/2024 Travel 04/04/2024 3:30 PM EST Office Visit [facility] [address] [place] [address] Cristian Chacon MD Dietary counseling; Exercise counseling; Systemic lupus erythematosus, unspecified SLE type, unspecified organ involvement status (CMS/HCC); Type 2 diabetes mellitus without complication, without long-term current use of insulin (CMS/[facility]); Asthma, unspecified asthma severity, unspecified whether complicated, unspecified whether persistent 04/04/2024 Travel 03/25/2024 3:20 PM EST Office Visit [facility] [address] [place] [phone] Sherry Kebede MD Abnormal CT scan (Primary Dx); Furuncle of right axilla; Vaginal yeast infection 03/25/[address] [facility] [address] [place] [address] Radha [place] RN triage/recent [facility] 03/24/24 03/25/[address] [facility] [address] [place] [address] Cristian Chacon MD Nurse Triage 03/23/[address] [facility] [address] [place] [phone] Cristian Chacon MD ER Follow-up; Nurse Triage 03/22/[address] [facility] [address] [place] [address] Roderick Weiner MD 03/15/2024 Telephone [facility] [address] [place] [address] Crisitan Chacon MD Pre-op Exam 03/10/2024 Telephone [facility] [address] [place] [address] Cristian Chacon MD No Show 03/09/2024 Telephone [facility] [address] [place] [address] Cristian Chacon MD pre op from Last 3 Months Immunizations Name Administration [...] complication, without long-term current use of insulin ([facility]) CT CHEST ANGIO W AND [...] resultswithin the time period is included. Pathologist [facility] Sodium 140 135 - 145 mmol/L [facility] Potassium 4.5 3.3 - 5.1 mmol/L [facility] Chloride 109(H) 96 - 108 mmol/L [facility] Carbon Dioxide 24 22 - 29 mmol/L [facility] Anion Gap 12 12 - 20 [facility] Urea Nitrogen (BUN) 20(H) 9 - 16 mg/dL [facility] Creatinine, Serum 0.65 0.5 - 1.4 mg/dL [facility] Estimated Glomerular Filt Rate >60 [facility] Comment:Chronic Kidney Disea se: Estimated GFR < 60 mL/min/1.44v5Dhatpe Kidney Disease: Estimated GFR < 15 mL/min/1.73m2 Glucose 110 60 - 115 mg/dL [facility] Calcium 9.0 8.4 - 10.2 mg/dL [facility] 05/18/2024 9:59 AM EDT 05/18/2024 10:00 AM EDT us Generic External Data Provider LAB BLOOD ORDERAB LES Final Result Performing Organization Address [facility]/ZIP Co de Phone Number [facility] [address] [place] [phone] * Cancelled Chemistry (05/16/2024 10:26 AM EDT) Cancelled Chemistry SEE NOTE [facility] Comment:SPECIMEN HEMOLYZED 05/16/2024 10:2 6 AM EDT 05/16/2024 10:26 AM EDT us Generic External Data Provider HISTORICAL/NON OR DERABLE LABS Final Result Performing Organization Address [facility] Co de Phone Number [facility] [address] [place] [phone] * ECG 12 lead (05/10/2024 4:51 PM EDT) Only the most recent of3 resultswithin the time period is included. Narrative Eduarda Villeda MD - 05/10/2024 4:51 PM EDT Heart rate 92 bpm. ??Loving VIII degrees. ??Normal sinus rhythm. ??No sign of left atrial enlargement/right atrial enlargement. ??No sign of hypertrophy. No ST elevation or ST depression. ??Normal EKG. us Eduarda Villeda MD ECG ORDERABLES Final Resul t * Glucose, Whole Blood (05/03/2024 5:15 PM EST) Pathologist [facility] Glucose, Whole Blood 76 60 - 115 mg/dL [facility] Comment:METER #: [id number] 05/03/2024 5:15 PM EST 05/03/2024 5:51 PM EST us Generic External Data Provider LAB BLOOD ORDERAB LES Final Result Performing Organization Address [facility] Co de Phone Number [facility] [address] [place] [phone] * High Sensitivity Troponin I (05/03/2024 5:08 PM EST) Only the most recent of2 resultswithin the time period is included. [facility] TROPONIN I HIGH SENSITIVITY 7.4 <3.5 - 17.0 ng/L [facility] Comment:The [place] high sens itivity Troponin-I results should beused in conjunction with other diagnostic information suchas ECG, clinical observations and information, and patientsymptoms to aid in the diagnosis of [place]. 05/03/2024 5:08 PM EST 05/03/2024 5:12 PM EST us Generic External Data Provider LAB BLOOD ORDERAB LES Final Result Performing Organization Address [facility] Co de Phone Number [facility] [address] [place] [phone] * Prothrombin Time-INR (05/03/2024 5:08 PM EST) Pathologist [facility] Prothrombin Time 11.7 10.9 - 12.4 SEC [facility] INTERNATIONAL NORM RATIO 1.0 0.9 - 1.1 [facility] Comment:INTERNATIONAL NORMAL IZED RATIO (INR) [...] Provider LAB BLOOD ORDERAB LES Final Result [facility] [address] [place] [phone] * SARS-CoV-2 RNA, Influenza A/B, and RSV RNA, Ql NAAT (05/03/2024 11:04 AM EST) Influenza A PCR NEGATIVE Negative [facility] Influenza B PCR NEGATIVE Negative [facility] Resp Syncy Virus RNA Qual PCR NEGATIVE Negative [facility] SARS COV2 PCR NEGATIVE Negative [facility] Comment:All test results mus t be [...] use by authorized laboratories.Testing performed on the [employer] GeneXpert utilizingreal-time RT-PCR.All SARS CoV2 and positive influenza A/B results arereported to [facility]. 05/03/2024 11:0 4 AM EST 05/03/2024 11:12 AM EST us Generic External Data Provider LAB MICROBIOLOGY - GENERAL ORDERABLES Final Result [facility] [address] [place] [address], [place] [phone] * (ABNORMAL) CBC auto differential (05/03/2024 11:04 AM EST) White Blood Count 8.1 4.8 - 10.8 X10*3/uL [facility] Red Blood Count 4.07(L) 4.20 - 5.50 X10*6/uL [facility] Hemoglobin 11.9(L) 12.0 - 16.0 g/dl [facility] Hematocrit 35.8(L) 37.0 - 47.0 % [facility] Mean Corpuscular Volume 88.0 80.0 - 98.0 fL [facility] Mean Corpuscular Hemoglobin 29.2 27.0 - 33.0 pg [facility] Mean Corpuscular HGB Conc 33.2 31.0 - 35.0 g/dl [facility] Red Cell Distribution Width 14.4 11.0 - 16.0 % [facility] Platelet Count 339 160 - 400 X10*3/uL [facility] Mean Platelet Volume 9.3(L) 9.4 - 12.3 fL [facility] Neutrophils Percent Auto 83.7(H) 45 - 73 % [facility] Imm Gran Pct Auto 0.6(H) 0.0 - 0.4 % [facility] Lymphocytes Percent Auto 11.5(L) 20 - 40 % [facility] Monocytes Percent Auto 3.6 2 - 11 % [facility] Eosinophils Percent Auto 0.5 0 - 4 % [facility] Basophils Percent Auto 0.1 0 - 2 % [facility] NRBC Pct Auto 0.0 0.0 - 0.2 /100WBC [facility] Neutrophils Absolute Auto 6.7 2.0 - 8.3 x10*3/uL [facility] Imm Gran Abs Auto 0.05(H) 0.00 - 0.03 X10*3/uL [facility] Lymphocytes Absolute Auto 0.9(L) 1.2 - 4.9 X10*3/uL [facility] Monocytes Absolute Auto 0.3 0.1 - 1.2 X10*3/uL [facility] Eosinophils Absolute Auto 0.0 0.0 - 0.4 X10*3/uL [facility] Basophils Absolute Auto 0.0 0.0 - 0.2 X10*3/uL [facility] NRBC Abs Auto 0.000 0.0 - 0.012 X10*3/uL [facility] 05/03/2024 11:0 4 AM EST 05/03/2024 11:12 AM EST Generic External Data Provider LAB BLOOD ORDERAB LES Final Result Performing Organization Address City/[facility]/ZIP Co de Phone Number [facility] [address] [place] [phone] * (ABNORMAL) C-reactive Protein (05/03/2024 11:04 AM EST) C Reactive Protein 3.79(H) < or = 0.50 mg/dL [facility] 05/03/2024 11:0 4 AM EST 05/03/2024 11:12 AM EST Generic External Data Provider LAB BLOOD ORDERAB LES Final Result Performing Organization Address City/[facility]/ZIP Co de Phone Number [facility] [address] [place] [phone] * B Type Natriuretic Peptide (BNP) (05/03/2024 11:04 AM EST) B Type Natriuretic Peptide 44 <100 pg/mL [facility] Comment:For those patients w ho are being treated with Natrecor(nesiritide, recombinant BNP), BNP testing should beperformed at least two hours post treatment in order toensure that only endogenous levels of BNP are detected. 05/03/2024 11:0 4 AM EST 05/03/2024 11:12 AM EST us Generic External Data Provider LAB BLOOD ORDERAB LES Final Result Performing Organization Address [facility] Co de Phone Number [facility] [address] [place] [phone] * Magnesium (05/03/2024 11:04 AM EST) Magnesium 2.1 1.6 - 2.6 mg/dL [facility] 05/03/2024 11:0 4 AM EST 05/03/2024 11:12 AM EST us Generic External Data Provider LAB BLOOD ORDERAB LES Final Result Performing Organization Address [facility] Co de Phone Number [facility] [address] [place] [phone] * Lipase (05/03/2024 11:04 AM EST) Lipase 37 8 - 78 U/L [facility] 05/03/2024 11:0 4 AM EST 05/03/2024 11:12 AM EST us Generic External Data Provider LAB BLOOD ORDERAB LES Final Result Performing Organization Address [facility] de Phone Number [facility] [address] [place] [phone] * Creatine Kinase, Total (05/03/2024 11:04 AM EST) Creatine Kinase Total 35 26 - 140 U/L [facility] 05/03/2024 11:0 4 AM EST 05/03/2024 11:12 AM EST us Generic External Data Provider LAB BLOOD ORDERAB LES Final Result Performing Organization Address [facility] Co de Phone Number [facility] [address] [place] [phone] * Hepatic Function Panel (05/03/2024 11:04 AM EST) Bilirubin, Total 0.5 0.0 - 1.0 mg/dL [facility] Bilirubin, Direct 0.2 0.0 - 0.5 mg/dL [facility] Aspartate Amino Transferase 14 5 - 31 U/L [facility] Alanine Aminotransferase 13 0 - 31 U/L [facility] Total Protein 7.0 6.5 - 8.0 g/dL [facility] Albumin Level 3.5 3.5 - 5.0 g/dL [facility] Alkaline Phosphatase 54 39 - 117 U/L [facility] 05/03/2024 11:0 4 AM EST 05/03/2024 11:12 AM EST us Generic External Data Provider LAB BLOOD ORDERAB LES Final Result Performing Organization Address City/State/[facility] Co de Phone Number [facility] [address] [place] [phone] * XR Chest 1 View (05/03/2024 10:40 AM EST) Anatomical Region Laterality Modality Chest Radiographic Amanda ging 05/03/2024 10:4 0 AM EST Narrative 05/03/2024 11:39 AM EST ? [facility] ?[address] ?[place] [address] ?XRay Report ? Signed ? Patient: Liriano,Scarlett ?MR#: [id number] ?? 354 ? : 1970 ?Acct:[id number] ? Age/Sex: 53 / F ?ADM Date: 03/04/25 ? Loc: HO.ED ? Attending Dr: ? Ordering Physician: Dana Montenegro DO ?? Date of Service: 05/03/24 ?? Procedure(s): XR chest 1V ?? Accession Number(s): [id number] ? cc: Cristian Chacon MD; Dana Montenegro [...] DD/ 1040 ? TD/TT: 05/03/24 1100 ? Gut Snatcher: MSM ? Procedure Note DonMakenna watson - 05/03/2024 [place] [address] XRay Report Signed Patient: Scarlett LirianoMR#: [id number] 354 : 1970Acct:[id number] Age/Sex: 53 / FADM Date: 05/03/24 Loc: .ED Attending Dr: Ordering Physician: Dana Montenegro DO Date of Service: 05/03/24 Procedure(s): XR chest 1V Accession Number(s): [id number] cc: Cristian Chacon MD; Dana Montenegro DO [...] 05/03/24 1136 DD/ 1040 TD/TT: 05/03/24 1100 Gut Snatcher: LEATHA [facility] External Provider IMG XR PROCEDURES Final Result * US Pelvis Transvaginal (05/03/2024 9:16 AM EST) Anatomical Region Laterality Modality Pelvis Ultrasound 05/03/2024 9:16 AM EST Narrative 05/03/2024 9:18 AM EST ? [facility] ?[address] ?[place], [place] [address] ? Ultrasound Report ? Signed ? Patient: Liriano,Scarlett ?MR#: [id number] ?? 354 ? : 1970 ?Acct:[id number] ? Age/Sex: 53 / F ?ADM Date: 05/02/24 ? Loc: HO.US ? Attending Dr: Gavino Wynne MD ? Ordering Physician: Gavino Wynne MD ?? Date of Service: 05/02/24 ?? Procedure(s): US pelvic and transvaginal ?? Accession Number(s): [id number] ? cc: Saskia Rosas MD; Gavino Wynne [...] ? DD/ 5 ? TD/TT: 05/03/[address] ? Gut Snatcher: ? Procedure Note Donotuseinterpreter, Image - 05/03/2024 [place] [address] Ultrasound Report Signed Patient: Scarlett LirianoMR#: [id number] 354 : 1970Acct:[id number] Age/Sex: 53 / FADM Date: 05/02/24 Loc: HO.US Attending Dr: Gavino Wynne MD Ordering Physician: Gavino Wynne MD Date of Service: 05/02/24 Procedure(s): US pelvic and transvaginal Accession Number(s): [id number] cc: Saskia Rosas MD; Gavino Wynne MD [...] in OV> 05/03/24916 DD/ 5 TD/TT: 05/03/24915 Gut Snatcher: us [facility] External Provider IMG US PROCEDURES Final Result * POCT Glucose (04/04/2024 4:00 PM EST) Glucose Blood, POC 174 60 - 200 mg/dL QC Media Lot # [id number] Lot# Expiration Date Blood Capillary blood specimen / Unknown 04/04/2024 4:00 PM EST us Cristian Martinez MD POINT OF CARE TEST ENTER/EDIT ORDERABLES Final Result * CT CHEST ANGIO W AND WO IV CONTRAST (03/19/2024 1:44 PM EST) Anatomical Region Laterality Modality Computed Tomogra phy us Historical Provider IMG CT PROCEDURES Final R esult * HM Hemoglobin A1c (11/18/2023 10:40 AM EDT) us Historical Provider HEALTH MAINTENANCE Final Result * BI Mammogram Screening Tomosynthesis Bilateral (05/27/2023 9:10 AM EDT) Anatomical Region Laterality Modality Breast Bilateral Mammography 05/27/2023 9:10 AM EDT Narrative 06/23/2023 5:53 AM EDT ? [facility] ? [address] ?[place] [address] ? Mammography Report ? Signed ? Patient: Liriano,Scarlett ?MR#: [id number] ?? 354 ? : 1970 ?Acct:[id number] ? Age/Sex: 52 / F ?ADM Date: 05/27/23 ? Loc: HO.MAMMO ? Attending Dr: Cristian Martinez MD ? Ordering Physician: Cristian Chacon MD ?Res ?? ults: 1Negative ? Date of Service: 05/26/ ?Follow Up: 1 Year From Orig ?? inal Mammogram ? Procedure(s): MM tomosynthesis screening BI ?? Accession Number(s): [id number] ? cc: Cristian Chacon MD ? EXAMINATION: [...] 0549 ? DD/ 0910 ? TD/TT: ? Gut Snatcher: ? Procedure Note Taylor, Makenna - 06/23/2023 [place] [facility] [address] [place] [address] Mammography Report Signed Patient: French LirianoOpal#: [id number] 354 : 1970Acct:[id number] Age/Sex: 52 / FADM Date: 05/27/23 Loc: HO.MAMMO Attending Dr: Cristian Martinez MD Ordering Physician: Cristian Chacon ults: 1Negative Date of Service: 05/27/23Follow Up: 1 Year From Orig inal Mammogram Procedure(s): MM tomosynthesis screening BI Accession Number(s): [id number] cc: Cristian Chacon MD EXAMINATION: MM SCREENING [...] in OV> 06/23/23 0549 DD/ 0910 TD/TT: Gut Snatcher: us Cristian Martinez MD IMG BI PROCEDURES [...] ?? Lopez GODFREY et al. KAILEE. 2013;310(19): 3272-9209 ?? (http://[employer]/faq/VWO001) Non-HDL Cholesterol 121 <130 mg/dL (calc) [facility] Comment: For patients with diabetes plus 1 major ASCVD risk ?? factor, treating to a non-HDL-C goal of <100 mg/dL ?? (LDL-C of <70 mg/dL) is considered a therapeutic ?? option. Triglycerides 91 <150 mg/dL [facility] 11/26/2021 9:36 AM EDT Cristian Martinez MD LAB BLOOD ORDERABL ES Final Result [facility] [address] from Last 3 Months or Most Recently Relevant to Health Maintenance Insurance [facility] C3 Care Teams Shake Maker Relationship Specialty Start Date End Date Cristian Chacon MD [address] [place] [id number] PCP - General Internal Medicine 03/17/19 Ivy Payne Data Communications EngineerFurnace Reliner 11/26/23
--- OUTSIDE RECORDS SUMMARY | 2024-06-02 13:35 | XMS_ITS | Clinical Summary ---
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 Name Role Phone Cristian Chacon MD [...] Type Department Care Team Description 04/21/2024 Telephone [facility] 4th floor Cardiology Medicine [address] [place] [address] Gate Watch: Mary Arriaga Telephone Intake, Staff PAC Form/Letter/Record s Request 04/20/2024 9:00 AM EST Follow-Up [facility] [address] [place] [address] Gate Watch: Alonzo Baez MD FELI positive (Primary Dx); Arthralgia, unspecified joint; Chest pain, unspecified type; Moderate persistent asthma, unspecified whether complicated 04/08/2024 Telephone [facility] [address] [place] [phone] Gate Watch: Zaida Rust Telephone Intake, Staff PAC Sick/Symptoms 03/30/2024 Telephone [facility] [address] [place] [phone] Gate Watch: Alonzo Baez MD PAC Patient Request Call Back; PAC Clinical Questions 03/27/[address] [facility] Rheumatology [address] [place] [address] Gate Watch: Alonzo Caputo MD 03/25/[address] [facility] Rheumatology [address] [place] [phone] Gate Watch: Alonzo Caputo MD 03/24/[address] [facility] Rheumatology [address] [place] [address] Gate Watch: Alonzo Caputo MD 03/24/[address] [facility] Rheumatology [address] [place] [address] Gate Watch: Alonzo Caputo MD 03/23/2024 4:00 PM EST - 03/23/2024 11:59 PM EST Hospital Encounter [facility] XRay [address] [place] [phone] Alonzo Persaud MD Chronic pain of both shoulders; Bilateral hip pain; Neck pain Discharge Disposition: Home or Self Care () 03/23/2024 3:20 PM EST Office Visit [facility] [address] [place] [address] Gate Watch: Alonzo Baez MD Chronic pain of both shoulders (Primary Dx); Bilateral hip pain; Neck pain 03/22/2024 Telephone [facility] [address] [place] [phone] Gate Watch: Zaida Rust Telephone Intake, Staff PAC Provider Requested Call Back Dr Persaud 03/22/2024 Telephone [facility] Endocrinology [facility] [address] [place] [address] Gate Watch: Alysha Roman Telephone Intake, Staff 03/17/2024 Refill [facility] [address] [place] [address] Gate Watch: Alonzo Baez MD 03/05/2024 Refill [facility] [address] [place] [address] Gate Watch: Alonzo Baez MD from Last 3 Months [...] Care Team (Late st Contact Info) Description 08/02/2024 1:30 PM EDT Follow-Up [facility] Rheum Dermatology [facility] [address] [place] [address] Gate Watch: Morales Ramsey MD [address] [place] [address] 08/16/2024 2:00 PM EDT Office Visit [facility] [address] [place] [phone] Gate Watch: Juan Ramon Vallejo, Dennis Whitlock MD [address] [place] [address] Scheduled Procedures Name Priority Associated Diagnoses Date/Ti [...] 2023 01/04/2022, 03/22/2021, 07/22/2020, Additional history exists Alcohol/Substance Use Screening 03/02/2024 Depression Screening and Follow-Up 03/02/2024 Social Drivers of Health Giselle ual Screening 03/02/2024 Mammogram 05/20/2024 05/20/2022, 03/03/2022, 05/20/2022, Additional history exists Influenza Vaccine (Season Ended) 2024 12/11/2022, 01/04/2022, 02/12/2021, Additional history exists Colon Cancer Screening 11/17/2024 FOBT / Fit Test 11/17/2024 11/18/2023 Basic Metabolic Panel 04/20/2025 04/20/2024 , 04/14/2024, 03/23/2024, Additional history exists RSV Vaccine (60+ years old a nd patients) (1 - 1-dose 75+ series) 07/20/2043 HIV Screening Completed 09/29/2013 Hepatitis C Screening Completed 06/04/2022 Procedures * Due to [place] state law, this organization might not be [...] AM EST FELI positive Arthralgia, unspecified joint [id number] STAT 04/20/19 9:23 AM EST FELI positive [...] to Health Maintenance Results * Due to [place] state law, this organization might not be sharing negative HIV tests. * Drake Top, Urine (04/20/2024 9:23 AM EST) Only the most recent of2 resultswithin the time period is included. Extra Tube Hold for add-ons. 04/20/2024 2:05 PM EST [facility] Comment:Auto resulted. Urine Urine specimen collection, clean catch / Unknown Non-Blood Collection / Unknown 04/20/2024 9:23 AM EST 04/20/2024 9:39 AM EST Alonzo Persaud MD LAB URINE ORDERABLES Final Result [facility] [address] [place] [address], * (ABNORMAL) DNA AB(DS) Crithidia Titer (04/20/2024 9:23 AM EST) Only the most recent of2 resultswithin the time period is included. DNA Ab Crithidia Titer 1:40(H) <1:10 titer 04/23/2024 12:47 PM EST [facility] ([facility]) Blood Structure of peripheral vein / Unknown Venipuncture / Unknown 04/20/2024 9:23 AM EST 04/20/2024 9:38 AM EST Narrative [facility] - 04/23/2024 12:47 PM EST [facility] Received Date:[id number] Alonzo Persaud MD LAB BLOOD ORDERABLES Final Result [facility] [address] [place] [address] [address]rd Floor, [place] [address], [place] [phone] [facility]) [address] [place] [address], [place] * (ABNORMAL) Urinalysis W/Reflex to Microscopic & Culture (04/20/2024 9:23 AM EST) Only the most recent of2 resultswithin the time period is included. Color, Urine Yellow Colorless, Light Yellow, Yellow, Dark Yellow 04/20/2024 9:59 AM EST [facility] Clarity, Urine Clear Clear 04/20/2024 9:59 AM EST [facility] Specific [place], Urine 1.024 1.005 - 1.030 04/20/2024 9:59 AM EST [facility] pH, Urine 5.0 4.6 - 8.0 04/20/2024 9:59 AM [facility] Protein, Urine 1+(A) Negative 04/20/2024 9:59 AM [facility] Glucose, Urine Negative Negative 04/20/2024 9:59 AM [facility] Ketones, Urine Negative Negative 04/20/2024 9:59 AM EST [facility] Bilirubin, Urine Negative Negative 04/20/2024 9:59 AM EST [facility] Blood, Urine Negative Negative 04/20/2024 9:59 AM [facility] Nitrite, Urine Negative Negative 04/20/2024 9:59 AM EST [facility] Urobilinogen, Urine Normal Normal 04/20/2024 9:59 AM EST [facility] Leukocyte Esterase, Urine Negative Negative 04/20/2024 9:59 AM [facility] WBC, Urine 1 0 - 2 /HPF 04/20/2024 9:59 AM EST [facility] RBC, Urine <1 0 - 2 /HPF 04/20/2024 9:59 AM EST [facility] Hyaline Casts, Urine 0 0 - 2 /LPF 04/20/2024 9:59 AM EST [facility] Squamous Epithelial Cells, Urine 2 /HPF 04/20/2024 9:59 AM EST [facility] Bacteria, Urine None None /HPF /HPF 04/20/2024 9:59 AM EST [facility] Mucus, Urine Rare /LPF 04/20/2024 9:59 AM EST [facility] Urine Urine specimen collection, clean catch / Unknown Non-Blood Collection / Unknown 04/20/2024 9:23 AM EST 04/20/2024 9:39 AM EST Alonzo Persaud MD LAB URINE ORDERABLES Final Result Performing Organization Address City/[facility]/ZIP Co de Phone Number [facility] [address] [place] [address], [place] * (ABNORMAL) DNA Antibody (ds) Crithidia IFA w/Reflex (04/20/2024 9:23 AM EST) Only the most recent of2 resultswithin the time period is included. DNA Ab(ds) Crithidia, IFA Positive(A ) Negative 04/23/2024 12:26 PM EST [facility]) Blood Structure of peripheral vein / Unknown Venipuncture / Unknown 04/20/2024 9:23 AM EST 04/20/2024 9:38 AM EST Narrative [facility] - 04/23/2024 12:26 PM EST [facility] Received Date:[id number] Alonzo Persaud MD LAB BLOOD ORDERABLES Final Result [facility] [address] [place] [address] 3rd Floor, [place] [address], [facility] ([place]) [id number] [place] [address], [place] * Procalcitonin (04/20/2024 9:23 AM EST) Pathologist [facility] Procalcitonin <0.20 <0.20 ng/mL 04/22/2024 2:53 PM EST [facility]- 0091 Comment: Verified by repeat analysis. Procalcitonin levels above 2.00 ng/mL on the first day of ICU admission represent a high risk for progression to severe sepsis and/or septic shock. Procalcitonin Comment See Comments 04/22/2024 2:53 PM EST [facility] Comment: Interpretation Guidelines Diagnosis of systemic [...] LAB BLOOD ORDERABLES Final Result [facility] [address] [place] [address] [address]rd Floor, [place] [address], [place] [phone] [facility] [address] [place] [address], [place] [phone] * (ABNORMAL) CBC Auto Differential (04/20/2024 9:23 AM EST) Only the most recent of2 resultswithin the time period is included. Pathologist [facility] WBC 12.4(H) 3.8 - 10.8 10*3/uL 04/20/2024 9:47 AM [facility] RBC 4.34 3.80 - 5.10 10*6/uL 04/20/2024 9:47 AM [facility] Hemoglobin 12.3 11.7 - 15.5 g/dL 04/20/2024 9:47 AM [facility] Hematocrit 39.1 35.0 - 45.0 % 04/20/2024 9:47 AM [facility] MCV 90.1 80.0 - 100.0 fL 04/20/2024 9:47 AM [facility] MCH 28.3 27.0 - 33.0 pg 04/20/2024 9:47 AM [facility] MCHC 31.5(L) 32.0 - 36.0 g/dL 04/20/2024 9:47 AM [facility] RDW 13.4 11.0 - 15.0 % 04/20/2024 9:47 AM [facility] Platelets 351 140 - 400 10*3/uL 04/20/2024 9:47 AM [facility] MPV 9.4 7.5 - 12.5 fL 04/20/2024 9:47 AM [facility] Neutrophil % 88.3 % 04/20/2024 9:47 AM [facility] Immature Grans % 1.1(H) 0.0 - 0.9 % 04/20/2024 9:47 AM [facility] Lymphocyte % 6.1 % 04/20/2024 9:47 AM [facility] Monocyte % 4.1 % 04/20/2024 9:47 AM [facility] Eosinophil % 0.2 % 04/20/2024 9:47 AM [facility] Basophil % 0.2 % 04/20/2024 9:47 AM EST [facility] Neutrophil # 10.92(H) 1.50 - 7.80 10*3/uL 04/20/2024 9:47 AM EST [facility] Immature Grans # 0.14(H) <=0.03 10*3/uL 04/20/2024 9:47 AM EST [facility] Lymphocyte # 0.80(L) 0.85 - 3.90 10*3/uL 04/20/2024 9:47 AM EST [facility] Monocyte # 0.50 0.20 - 0.95 10*3/uL 04/20/2024 9:47 AM EST [facility] Eosinophil # <0.03 0.02 - 0.50 10*3/uL 04/20/2024 9:47 AM EST [facility] Basophil # <0.03 0.00 - 0.20 10*3/uL 04/20/2024 9:47 AM EST [facility] nRBC % 0.0 /100 WBCs 04/20/2024 9:47 AM EST [facility] nRBC # <0.01 <0.01 10*3/uL 04/20/2024 9:47 AM EST [facility] Blood Structure of peripheral vein / Unknown Venipuncture / Unknown 04/20/2024 9:23 AM EST 04/20/2024 9:38 AM EST us Alonzo Persaud MD LAB BLOOD ORDERABLES Final Result [facility] [address] [place] [address], [place] * Microalbumin, Random Urine with Creatinine (04/20/2024 9:23 AM EST) Only the most recent of2 resultswithin the time period is included. Pathologist [facility] Microalbumin, Urine <2.0 mg/dL 04/20/2024 12:17 PM EST [facility] Creatinine, Urine 186 15 - 278 mg/dL 04/20/2024 12:17 PM EST [facility] Microalb/Creat Ratio, Random Urine 04/20/2024 12:17 PM EST [facility] Comment: < 1.0 mcg/mgCr Microalbumin Reference Range: Normal ? <30 mcg/mg Creatinine Microalbuminuria ? 30-300 mcg/mg Creatinine Clinical Albuminuria >300 mcg/mg Creatinine Reference: ADA Guideline. Diabetes Care. 2004;27 (suppl 1) Urine Voided urine specimen / Unknown Non-Blood Collection / Unknown 04/20/2024 9:23 AM EST 04/20/2024 9:39 AM EST us Alnozo Persaud MD LAB URINE ORDERABLES Final Result [facility] [address] [place] [address], [facility] [address] [place] [address], * (ABNORMAL) DNA Antibody, Double-Stranded (04/20/2024 9:23 AM EST) Only the most recent of2 resultswithin the time period is included. Pathologist [facility] DNA (Ds) Antibody 7(H) IU/mL 025 9:50 PM EST [facility] Comment: ? IU/mL ? Interpretation ? < or = 4 ?Negative ? 5-9 ? Indeterminate ? > or = 10 ?? Positive Blood Structure of peripheral vein / Unknown Venipuncture / Unknown 04/20/2024 9:23 AM EST 04/20/2024 9:38 AM EST Narrative [facility] - 04/21/2024 9:50 PM EST [facility] Received Date: us Alonzo Persaud MD LAB BLOOD ORDERABLES Final Result Performing Organization Address City/[facility] de Phone Number [facility] [address] [facility] [address] [facility], [place] [address], [place] [phone] [facility], [place] [address], [place] [phone] * Sedimentation Rate (04/20/2024 9:23 AM EST) Only the most recent of2 resultswithin the time period is included. Sed Rate 23 <30 mm/Hr mm/Hr 04/20/2024 10:04 AM EST [facility] Blood Structure of peripheral vein / Unknown Venipuncture / Unknown 04/20/2024 9:23 AM EST 04/20/2024 9:38 AM EST us Alonzo Persaud MD LAB BLOOD ORDERABLES Final Result Performing Organization Address City/[facility]/ZIP Co de Phone Number [facility] [address] [place] [address], * Complement C3 (04/20/2024 9:23 AM EST) Only the most recent of2 resultswithin the time period is included. Complement Component C3C 101 83 - 193 mg/dL 04/21/2024 4:22 AM EST [employer] [facility] Blood Structure of peripheral vein / Unknown Venipuncture / Unknown 04/20/2024 9:23 AM EST 04/20/2024 9:38 AM EST Narrative [facility] - 04/21/2024 4:22 AM EST [facility] Received Date:[id number] us Alonzo Persaud MD LAB BLOOD ORDERABLES Final Result Performing Organization Address City/[facility]/ZIP Co de Phone Number [facility] [address] [facility] [address] [facility], [place] [address], [place] [phone] [facility] [employer] [facility] [address], [place] [address], [place] [phone] * Complement C4 (04/20/2024 9:23 AM EST) Only the most recent of2 resultswithin the time period is included. Complement Component C4C 21 15 - 57 mg/dL 04/21/2024 4:22 AM EST [facility] Blood Structure of peripheral vein / Unknown Venipuncture / Unknown 04/20/2024 9:23 AM EST 04/20/2024 9:38 AM EST Narrative [facility] - 04/21/2024 4:22 AM EST [facility] Received Date:[id number] us Alonzo Persaud MD LAB BLOOD ORDERABLES Final Result Performing Organization Address City/[facility]/ZIP Co de Phone Number [facility] [address], [place] [address], [place] [phone] [facility] [address], [place] [address], [place] [phone] * (ABNORMAL) C-Reactive Protein (04/20/2024 9:23 AM EST) Only the most recent of2 resultswithin the time period is included. C Reactive Protein 10.5(H) <=9.9 mg/L 04/20/2024 10:34 AM EST [facility] Blood Structure of peripheral vein / Unknown Venipuncture / Unknown 04/20/2024 9:23 AM EST 04/20/2024 9:38 AM EST Alonzo Persaud MD LAB BLOOD ORDERABLES Final Result Performing Organization Address City/[facility] Co de Phone Number [facility] [address] [place] [address], * (ABNORMAL) Creatine Kinase (04/20/2024 9:23 AM EST) Only the most recent of2 resultswithin the time period is included. CK 35(L) 38 - 206 U/L 04/20/2024 10:34 AM EST [facility] Blood Structure of peripheral vein / Unknown Venipuncture / Unknown 04/20/2024 9:23 AM EST 04/20/2024 9:38 AM EST Alonzo Persaud MD LAB BLOOD ORDERABLES Final Result Performing Organization Address [facility] Co de Phone Number [facility] [address] [place] [address], * (ABNORMAL) Comprehensive Metabolic Panel (04/20/2024 9:23 AM EST) Only the most recent of2 resultswithin the time period is included. NA 139 135 - 145 mmol/L 04/20/2024 10:34 AM EST [facility] K 3.8 3.5 - 5.3 mmol/L 04/20/2024 10:34 AM EST [facility] Cl 105 98 - 107 mmol/L 04/20/2024 10:34 AM EST [facility] CO2 24 22 - 32 mmol/L 04/20/2024 10:34 AM EST [facility] Anion Gap 10 5 - 15 04/20/2024 10:34 AM EST [facility] Glucose 177(H) 65 - 99 mg/dL 04/20/2024 10:34 AM EST [facility] Creatinine 0.73 0.50 - 1.20 mg/dL 04/20/2024 10:34 AM [facility] Calcium 8.4(L) 8.6 - 10.5 mg/dL 04/20/2024 10:34 AM [facility] Total Protein 6.9 6.0 - 8.0 g/dL 04/20/2024 10:34 AM [facility] Albumin 3.4(L) 3.5 - 5.2 g/dL 04/20/2024 10:34 AM [facility] Bilirubin, Total 0.3 0.2 - 1.2 mg/dL 04/20/2024 10:34 AM [facility] Alkaline Phosphatase 50 35 - 129 U/L 04/20/2024 10:34 AM [facility] AST 14 10 - 40 U/L 04/20/2024 10:34 AM [facility] ALT 11 10 - 40 U/L 04/20/2024 10:34 AM [facility] BUN 24(H) 7 - 23 mg/dL 04/20/2024 10:34 AM [facility] eGFR >90 >=60 mL/min/1. 73m2 04/20/2024 10:34 AM [facility] Comment:The estimated glomer [...] - 4.2 g/dL 04/20/2024 10:34 AM EST [facility] A/G Ratio 1.0(L) 1.5 - 3.0 04/20/2024 10:34 AM EST [facility] Blood Structure of peripheral vein / Unknown Venipuncture / Unknown 04/20/2024 9:23 AM EST 04/20/2024 9:38 AM EST Alonzo Persaud MD LAB BLOOD ORDERABLES Final Result [facility] [address] [place] [address], * Interpretation (03/23/2024 4:48 PM EST) FELI Specific Antibody Interpretation See Comments 03/25/2024 12:23 PM EST [facility] Comment: The presence of these two antibodies [...] EST 03/23/2024 5:31 PM EST Narrative [facility] - 03/25/2024 12:23 PM EST [facility] Received Date: Alonzo Persaud MD LAB BLOOD ORDERABLES Final Result [facility] [address] [facility] [address], [place] [address], [facility] [address] [facility] 3rd Floor, [place] [address], [place] [phone] * (ABNORMAL) Stage 1 (03/23/2024 4:48 PM EST) DNA (Ds) Antibody 11(H) IU/mL 025 12:23 PM EST [facility] Comment: ? IU/mL ? Interpretation ? < or = 4 ?Negative ? 5-9 ? Indeterminate ? > or = 10 ?? Positive Sm Antibody <1.0 NEG <1.0 NEG AI 03/25/2024 12:23 PM [employer] [facility] SM/COMMUNICATIONS WRITER Antibody <1.0 NEG <1.0 NEG AI 03/25/2024 12:23 PM [employer] [facility] COMMUNICATIONS WRITER Antibody <1.0 NEG <1.0 NEG AI 03/25/2024 12:23 PM [employer] [facility] Chromatin Antibody 3.0 POS(A) <1.0 NEG AI 03/25/2024 12:23 PM [employer] [facility] Comment: ANTIBODY PREVALENCE IN TIER [...] Sjogren's syndrome and 8% polymyositis. ?? Ribonucleoprotein (COMMUNICATIONS WRITER) antibodies are to COMMUNICATIONS WRITER A and/or COMMUNICATIONS WRITER 68kD proteins; antibodies to one or both are present in >80% MCTD, 22% to 48% SLE, 14% systemic sclerosis, 12% Sjogren's and 8% polymyositis. ?? Sm/COMMUNICATIONS WRITER antibodies are directed to epitopes formed in a complex of Sm and COMMUNICATIONS WRITER; antibodies to the Sm/COMMUNICATIONS WRITER complex are present in 54% to 94% MCTD, 30% SLE, 4% systemic sclerosis, and 9% Sjogren's and polymyositis. ?? Sm antibody is present in 20% to 30% SLE, 8% MCTD, 10% polymyositis, 0% systemic sclerosis and 4% Sjogren's syndrome. ?? Double stranded DNA, Chromatin, Ribonucleoprotein, Sm/COMMUNICATIONS WRITER complex and Sm antibodies are present in <2% of normal blood donors. ?? The [facility] does not rule out autoimmune disease characterized by other autoantibody specificities such as rheumatoid arthritis, autoimmune hepatitis, primary biliary cirrhosis, autoimmune thyroiditis, Darrel's disease, pernicious anemia, autoimmune neuropathies, vasculitis, celiac disease and bullous disease. Please contact your local [facility] laboratory if you are interested in additional testing. Blood Structure of peripheral vein / Unknown Venipuncture / Unknown 03/23/2024 4:48 PM EST 03/23/2024 5:31 PM EST [facility]/25/[facility] 12:23 PM EST [facility] Received Date: Alonzo Persaud MD LAB BLOOD ORDERABLES Final Result [facility] [address] [facility] [address], [place] [address], [employer] [facility] [address] [facility] 3rd [address], [place] [address], * (ABNORMAL) FELI, Titer and Pattern (03/23/2024 4:48 PM EST) FELI Titer 1 1:1280(H) titer 03/30/2024 4:22 PM EST [facility] Comment: ?Reference Range ?<1:40 ?Negative ?1:40-1:80 ?Low Antibody Level ?>1:80 ?Elevated Antibody Level FELI Pattern 1 Nuclear, Homogeneo us(A) 03/30/2024 4:22 PM EST [facility] Comment: Homogeneous pattern is associated with systemic lupus erythematosus (SLE), drug-induced lupus and juvenile idiopathic arthritis. AC-1: Homogeneous International Consensus on FELI Patterns (https://doi.org/10.1515/tebv-8441-2249) Blood Structure of peripheral vein / Unknown Venipuncture / Unknown 03/23/2024 4:48 PM EST 03/23/2024 5:31 PM EST Narrative [facility] - 03/30/2024 4:22 PM EST [facility] Received Date: Alonzo Persaud MD LAB BLOOD ORDERABLES Final Result [facility] [facility] [address] [facility] 3rd Floor, [place] [address], [employer] [facility] 200 [facility] 3rd Floor, [place] [address], * (ABNORMAL) [place] & Lambda, Free w/Ratio (03/23/2024 4:48 PM EST) [place] Light Chain, Free, Serum 99.6(H) 3.3 - 19.4 mg/L 03/24/2024 3:56 PM EST [facility] Lambda Light Chain, Free, Serum 60.2(H) 5.7 - 26.3 mg/L 03/24/2024 3:56 PM EST [employer] [facility] [place]/Lambda Light Chains Free With Ratio 1.65 0.26 - 1.65 03/24/2024 3:56 PM EST [facility] Comment: Free kappa/lambda ratio in serum of [...] PM EST 03/23/2024 5:31 PM EST Narrative Departing [facility] - 03/24/2024 3:56 PM EST [facility] Received Date: Alonzo Persaud MD LAB BLOOD ORDERABLES Final Result [facility] [address] [facility] 3rd Floor, [place] [address], [place] [phone] [employer] [facility] [address] [facility] [address] [place] [address], [place] [phone] * (ABNORMAL) Protein Electrophoresis w/Reflex to Immunofixation, Serum (03/23/2024 4:48 PM EST) Pathologist [facility] Protein, Total 6.5 6.1 - 8.1 g/dL 03/25/2024 7:04 AM EST [employer] [facility] Albumin 3.0(L) 3.8 - 4.8 g/dL 03/25/2024 7:04 AM [employer] [facility] Alpha 1 Globulin 0.5(H) 0.2 - 0.3 g/dL 03/25/2024 7:04 AM EST [employer] [facility] Alpha 2 Globulin 0.9 0.5 - 0.9 g/dL 03/25/2024 7:04 AM EST [employer] [facility] Beta 1 Globulin 0.4 0.4 - 0.6 g/dL 03/25/2024 7:04 AM EST [employer] [facility] Beta 2 Globulin 0.4 0.2 - 0.5 g/dL 03/25/2024 7:04 AM [employer] [facility] Gamma Globulin 1.2 0.8 - 1.7 g/dL 03/25/2024 7:04 AM [employer] [facility] Interpretation See Comments 03/25/2024 7:04 AM [employer] [facility] Comment: Pattern consistent with an acute phase reaction Blood Structure of peripheral vein / Unknown Venipuncture / Unknown 03/23/2024 4:48 PM EST 03/23/2024 5:31 PM EST Narrative [facility] [place] - 03/25/2024 7:04 AM EST [facility] Received Date: Alonzo Persaud MD LAB BLOOD ORDERABLES Final Result [facility] [address] [facility] [address] [facility], [place] [address], [place] [phone] [employer] [facility] [address], [place] [address], * Cyclic Citrullinated Peptide (CCP) Antibody, IgG (03/23/2024 4:48 PM EST) Cyclic Citrullinated Peptide (CCP) Ab (IgG) <16 UNITS 03/25/2024 2:15 PM EST [employer] [facility] Comment: Reference Range Negative: ?<20 Weak Positive: ? 20-39 Moderate Positive: ?? 40-59 Strong Positive: ? >59 Blood Structure of peripheral vein / Unknown Venipuncture / Unknown 03/23/2024 4:48 PM EST 03/23/2024 5:31 PM EST [facility] - 03/25/2024 2:15 PM EST [facility] Received Date: Alonzo Persaud MD LAB BLOOD ORDERABLES Final Result [facility] [address], [place] [address], [place] [phone] [employer] [facility] [address], [place] [address], * Lyme Antibody Screen w/Reflex to Blot (03/23/2024 4:48 PM EST) Lyme Ab Screen <0.90 index 03/24/2024 11:29 AM EST [employer] [facility] Comment: ? Index ?Interpretation ? ----- ? [...] 4:48 PM EST 03/23/2024 5:31 PM EST [facility] - 03/24/2024 11:29 AM EST [facility] Received Date: Alonzo Persaud MD LAB BLOOD ORDERABLES Final Result [place] [facility] [address] [facility] [address] [facility], [place] [address], [employer] [facility] [address], [place] [address], * (ABNORMAL) FELI Screen, IFA, w/Reflex to Titer & Pattern (03/23/2024 4:48 PM EST) FELI Screen, IFA POSITIVE (A) NEGATIVE 03/30/2024 4:21 PM EST [facility] Comment: FELI IFA is a first line screen for detecting the presence of up to approximately 150 autoantibodies in various autoimmune diseases. A positive FELI IFA result is suggestive of autoimmune disease and reflexes to titer and pattern. Further laboratory testing may be considered if clinically indicated. For additional information, please refer to http://education.Snipd/faq/ICK860 (This link is being provided for informational/ educational purposes only.) ?? Blood Structure of peripheral vein / Unknown Venipuncture / Unknown 03/23/2024 4:48 PM EST 03/23/2024 5:31 PM EST [facility]ative [facility] 03/30/2024 4:21 PM EST [facility] Received Date: us Alonzo Persaud MD LAB BLOOD ORDERABLES Final Result Performing Organization Address City/[facility]/ZIP Co de Phone Number [facility] 200 [facility] 3rd Floor, [place] [address], [place] [phone] [employer] [facility] 200 [facility] 3rd Floor, [place] [address], [place] [phone] * Urine Culture, Routine (03/23/2024 4:48 PM EST) Pathologist [facility] Culture Mixed genital zachary isolated. These superficial bacteria are not indicative of a urinary tract infection. No further organism identification is warranted on this specimen. 03/24/2024 5:21 PM EST [employer] [facility] Urine Urine specimen collection, clean catch / Unknown Non-Blood Collection / Unknown 03/23/2024 4:48 PM EST 03/23/2024 6:19 PM EST Narrative [facility] - 03/24/2024 5:21 PM EST [facility] Received Date: MICRO NUMBER: [id number] SPECIMEN QUALITY: Adequate SOURCE: URINE CLEAN CATCH STATUS: FINAL If clinically indicated, recollect clean-catch, mid-stream urine and transfer immediately to Urine Culture Transport Tube. us Alonzo Persaud MD LAB MICROBIOLOGY - GENERAL ORDERABLES Final Result Performing Organization Address City/[facility]/ZIP Co de Phone Number [facility] [address], [place] [address], [employer] [facility] [address], [address] [place] [address], * (ABNORMAL) FELI Specific Antibody w/Reflex to [place] (03/23/2024 4:48 PM EST) Pathologist [facility] FELI Screen, Immunoassay POSITIVE (A) NEGATIVE 03/25/2024 12:23 PM EST [employer] [facility] Comment: A positive FELI Multiplex indicates the presence of detectable antibodies to one or more of the component analytes consisting of double stranded DNA (dsDNA), chromatin, ribonucleoprotein (COMMUNICATIONS WRITER), Mojica/COMMUNICATIONS WRITER (Sm/COMMUNICATIONS WRITER), Mojica (Sm), SS-A, SS-B, Bozena-1, centromere B, Scl-70 and ribosomal P. Further laboratory testing may be considered if clinically indicated. For additional information, please refer to http://education.Snipd/faq/FBP718 (This link is being provided for informational/ educational purposes only.) ?? Blood Structure of peripheral vein / Unknown Venipuncture / Unknown 03/23/2024 4:48 PM EST 03/23/2024 5:31 PM EST Narrative [facility] - 03/25/2024 12:23 PM EST [facility] Received Date: Alonzo Persaud MD LAB BLOOD ORDERABLES Final Result [facility] [address] [facility] [address] [facility], [address] [place] [address], [place] [phone] [employer] [facility] [address], [place] [address], * (ABNORMAL) Lactate Dehydrogenase (03/23/2024 4:48 PM EST) Pathologist [facility] LDH 285(H) 135 - 225 U/L 03/23/2024 6:41 PM EST [facility] Blood Structure of peripheral vein / Unknown Venipuncture / Unknown 03/23/2024 4:48 PM EST 03/23/2024 5:31 PM EST Alonzo Persaud MD LAB BLOOD ORDERABLES Final Result Performing Organization Address City/[facility]/ZIP Co de Phone Number [facility] [address] [place] [address], [place] * Gamma Glutamyl Transferase (03/23/2024 4:48 PM EST) GGT 35 5 - 61 U/L 03/23/2024 6:09 PM EST [facility] Blood Structure of peripheral vein / Unknown Venipuncture / Unknown 03/23/2024 4:48 PM EST 03/23/2024 5:31 PM EST us Alonzo Persaud MD LAB BLOOD ORDERABLES Final Result Performing Organization Address [facility] Co de Phone Number [facility] [address] [place] [address], [place] * (ABNORMAL) IgA (03/23/2024 4:48 PM EST) Immunoglobulin A 319(H) 47 - 310 mg/dL 03/24/2024 8:01 AM EST [employer] [facility] Blood Structure of peripheral vein / Unknown Venipuncture / Unknown 03/23/2024 4:48 PM EST 03/23/2024 5:31 PM EST Narrative [facility] - 03/24/2024 8:01 AM EST [facility] Received Date: Alonzo Persaud MD LAB BLOOD ORDERABLES Final Result [place] [facility] [address] [facility] 3rd Floor, [place] [address], [place] [phone] [facility] [employer] [facility] 200 [facility] 3rd Floor, [place] [address], [place] [phone] * IgM (03/23/2024 4:48 PM EST) Immunoglobulin M 80 50 - 300 mg/dL 03/24/2024 8:01 AM EST [employer] [facility] Blood Structure of peripheral vein / Unknown Venipuncture / Unknown 03/23/2024 4:48 PM EST 03/23/2024 5:31 PM EST Narrative [facility] - 03/24/2024 8:01 AM EST [facility] Received Date: Alonzo Persaud MD LAB BLOOD ORDERABLES Final Result [place] [facility] [address] [facility] 3rd Floor, [place] [address], [place] [phone] [employer] [facility] [address], [place] [address], [place] [phone] * IgG (03/23/2024 4:48 PM EST) IgG, Serum 1448 600 - 1640 mg/dL 03/24/2024 8:01 AM EST [employer] [facility] Blood Structure of peripheral vein / Unknown Venipuncture / Unknown 03/23/2024 4:48 PM EST 03/23/2024 5:31 PM EST Narrative [facility] 03/24/2024 8:01 AM EST [facility] Received Date: us Alonzo Persaud MD LAB BLOOD ORDERABLES Final Result [place] [facility] [address] [facility] 3rd Floor, [place] [address], [place] [phone] [employer] [facility] [address], [place] [address], [place] [phone] * Ferritin (03/23/2024 4:48 PM EST) Ferritin 279.0 11.0 - 306.0 ng/mL 03/23/2024 6:09 PM EST [facility] Blood Structure of peripheral vein / Unknown Venipuncture / Unknown 03/23/2024 4:48 PM EST 03/23/2024 5:31 PM EST us Alonzo Persaud MD LAB BLOOD ORDERABLES Final Result [facility] [address] [place] [address], [place] * XR Hips Bilateral 5+ vw [...] obtain the completed interpretation. ? Workstation ID: [id number] Narrative 03/23/2024 6:11 PM EST COMPARISON: None. ?? Resulting Agency Comment [id number] Procedure Note Augusto Buck MD - 03/23/2024 [...] possible to obtain thecompleted interpretation. Workstation ID: [id number] us Alonzo Persaud MD IMG XR PROCEDURES [...] obtain the completed interpretation. ? Workstation ID: [id number] Narrative 03/23/2024 6:11 PM EST COMPARISON: None. ?? Resulting Agency Comment [id number] Procedure Note Augusto Buck MD - 03/23/2024 [...] possible to obtain thecompleted interpretation. Workstation ID: [id number] us Alonzo Persaud MD IMG XR PROCEDURES [...] obtain the completed interpretation. ? Workstation ID: [id number] Narrative 03/23/2024 6:11 PM EST COMPARISON: None. ?? Resulting Agency Comment [id number] Procedure Note Augusto Buck MD - 03/23/2024 [...] possible to obtain thecompleted interpretation. Workstation ID: [id number] us Alonzo Persaud MD IMG XR PROCEDURES [...] obtain the completed interpretation. ? Workstation ID: [id number] Narrative 03/23/2024 6:11 PM EST COMPARISON: None. ?? Resulting Agency Comment [id number] Procedure Note Augusto Buck MD - 03/23/2024 [...] possible to obtain thecompleted interpretation. Workstation ID: [id number] us Alonzo Persaud MD IMG XR PROCEDURES Final Re sult * Hepatitis C Antibody w/Reflex to HCV RNA, Quantitative PCR (06/04/2022 5:43 PM EDT) Hepatitis C Antibody NON-REACT BETO NON-REACT BETO 06/05/2022 3:44 AM EDT [facility] Signal To Cut-Off 0.02 <1.00 06/05/2022 3:44 AM EDT [facility] Comment: HCV antibody was non-reactive. There is no laboratory evidence of HCV infection. In most cases, no further action is required. However, if recent HCV exposure is suspected, a test for HCV RNA (test code 05493) is suggested. For additional information please refer to http://education.[employer]/faq/ZTN55p0 (This link is being provided for informational/ educational purposes only.) Blood Structure of peripheral vein / Unknown Venipuncture / Unknown 06/04/2022 5:43 PM EDT 06/04/2022 6:08 PM EDT Narrative [facility] - 06/05/2022 3:44 AM EDT [facility] Received Date: us Alonzo Persaud MD LAB BLOOD ORDERABLES Final Result [facility] [address] [facility] 3rd Floor, [place] [address], [place] [phone] [facility] 200 [facility] 3rd Floor, [place] [address], [place] [phone] from Last 3 Months or Most Recently Relevant to Health Maintenance Insurance [facility] Care Teams Single Corner Cutter Relationship Specialty Start Date End Date Cristian Chacon MD [address] [place] [phone] PCP - General 06/04/22
--- OUTSIDE RECORDS SUMMARY | 2024-06-02 13:35 | XMS_ITS | Encounter Summary ---
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 Pt stated she had not picked up the Benadryl yet for rash itchiness. She will do so. 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 She would like PCP [...] on filedocumented in this encounter Care Teams Loan Counselor Relationship Specialty Start Date End Date Cristian Chacon MD [address] [place] [id number] PCP - General Internal Medicine 03/17/19 Ivy Payne Pyrometer MechanicShipping And Receiving Associate 03/03/23 11/25/23 Ivy Payne Film DeveloperShipping And Receiving Associate 11/26/23 documented as of this encounter
--- OUTSIDE RECORDS SUMMARY | 2024-06-02 13:35 | XMS_ITS | Encounter Summary ---
Author Organization [employer] Address [address] [facility] 7 [place] [address] Care Team Providers Care Bake Room Worker Name Role Phone Cristian Chacon MD Primary Care Prov ider Reason for Visit * Reason Onset Date Comments Nurse Triage 11/18/2022 Encounter Details Date Type Department Care Team ([facility] st Contact Info) Description 11/18/2022 Telephone C [facility] [address] [place], [place] [phone] Cristian Chacon MD [address] [place] [address] Nurse Triage Social History Tobacco Use Types [...] accepted this outcome Please contact pt at [phone] Bermudian Speaker documented in this encounter Plan of Treatment Not on file documented as of this encounter Visit Diagnoses Not on filedocumented in this encounter Care Teams Bake Room Worker Relationship Specialty Start Date End Date Cristian Chacon MD [address] [place] [phone] PCP - General Internal Medicine 03/17/19 Ivy Payne Trimmer And Borer Machine OperatorResearcher 03/03/23 11/25/23 Ivy Payne Low Altitude Air Defense GunnerResearcher 11/26/23 documented as of this encounter
--- OUTSIDE RECORDS SUMMARY | 2024-06-02 13:35 | XMS_ITS | Clinical Summary ---
Author Organization [facility] Address [address] [place] [address] Phone Care Team Providers Care Hotbed Operator Name Role Phone Cristian Chacon Primary [...] 10:47 PM EST - 04/14/2024 3:00 AM [facility] Emergency [address] [place] [phone] Seth Jason MD URI due to influenza A virus (Primary Dx); Chest wall pain Discharge Disposition: Home or Self Care 03/19/2024 1:30 PM EST - 03/19/2024 8:28 PM [facility] Emergency [address] [place] [phone] Ran Adams MD Goebel, Mathew, MD Other [...] of3 resultswithin the time period is included. [facility] High Sensitivity Troponin I 9 <=54 ng/L LAB CHEMISTRY METHOD 04/14/2024 1:47 AM EST [facility] Blood Venous blood specimen / Unknown Venipuncture / Unknown 04/14/2024 12:55 AM EST 04/14/2024 1:22 AM EST [facility] - 04/14/2024 1:47 AM EST High levels of biotin in samples may falsely decrease hsTroponin values. ??Use caution when interpreting hsTroponin results in patients taking biotin who exhibit renal impairment (eGFR <60) or in patients taking more than 20 mg/day of biotin. us Ashley NELSON LAB BLOOD ORDERABLES Final Resul t [facility] [address] [place] [address], * (ABNORMAL) CBC auto differential (04/14/2024 12:55 AM EST) Only the most recent of2 resultswithin the time period is included. [facility] WBC 5.7 4.8 - 10.8 K/mcL LAB HEMETOLOGY METHOD 04/14/2024 1:27 AM EST [facility] RBC 4.10 3.80 - 4.80 M/mcL LAB HEMETOLOGY METHOD 04/14/2024 1:[address] [facility] Hemoglobin 11.9 11.5 - 16.0 g/dL LAB HEMETOLOGY METHOD 04/14/2024 1:[address] [facility] Hematocrit 37.2 35.0 - 47.0 % LAB HEMETOLOGY METHOD 04/14/2024 1:[address] [facility] MCV 90.7 79.0 - 98.0 FL LAB HEMETOLOGY METHOD 04/14/2024 1:[address] [facility] MCH 29.0 27.0 - 32.0 pcg LAB HEMETOLOGY METHOD 04/14/2024 1:[address] [facility] MCHC 32.0 32.0 - 37.0 g/dL LAB HEMETOLOGY METHOD 04/14/2024 1:[address] [facility] RDW 13.9 11.0 - 15.0 % LAB HEMETOLOGY METHOD 04/14/2024 1:[address] [facility] Platelets 326 130 - 400 K/mcL LAB HEMETOLOGY METHOD 04/14/2024 1:[address] [facility] MPV 9.3 7.0 - 11.0 FL LAB HEMETOLOGY METHOD 04/14/2024 1:[address] [facility] NRBC 0.0 <1.0 % LAB HEMETOLOGY METHOD 04/14/2024 1:[address] [facility] NRBC Absolute 0.00 <0.10 K/mcL LAB HEMETOLOGY METHOD 04/14/2024 1:[address] [facility] Neutrophils Relative 80.1 % LAB HEMETOLOGY METHOD 04/14/2024 1:[address] [facility] Lymphocytes Relative 11.2 % LAB HEMETOLOGY METHOD 04/14/2024 1:[address] [facility] Monocytes Relative 3.9 % LAB HEMETOLOGY METHOD 04/14/2024 1:[address] [facility] Eosinophils Relative 3.5 % LAB HEMETOLOGY METHOD 04/14/2024 1:[address] [facility] Basophils Relative 0.4 % LAB HEMETOLOGY METHOD 04/14/2024 1:27 AM EST [facility] Immature Granulocytes Relative 0.9 % LAB HEMETOLOGY METHOD 04/14/2024 1:27 AM EST [facility] Neutrophils Absolute 4.53 1.50 - 7.00 K/mcL LAB HEMETOLOGY METHOD 04/14/2024 1:27 AM EST [facility] Lymphocytes Absolute 0.63(L) 1.00 - 5.00 K/mcL LAB HEMETOLOGY METHOD 04/14/2024 1:27 AM EST [facility] Monocytes Absolute 0.22 0.20 - 1.00 K/mcL LAB HEMETOLOGY METHOD 04/14/2024 1:[address] [facility] Eosinophils Absolute 0.20 0.00 - 0.50 K/mcL LAB HEMETOLOGY METHOD 04/14/2024 1:27 AM EST [facility] Basophils Absolute 0.02 0.00 - 0.20 K/mcL LAB HEMETOLOGY METHOD 04/14/2024 1:[address] [facility] Immature Granulocytes Absolute 0.05(H) 0.00 - 0.03 K/mcL LAB HEMETOLOGY METHOD 04/14/2024 1:[address] [facility] Blood Venous blood specimen / Unknown Venipuncture / Unknown 04/14/2024 12:55 AM EST 04/14/2024 1:22 AM EST us Yotam Block PA LAB BLOOD ORDERABLES Final Resul t [facility]) [facility] [address] [place] [address], * Lipase (04/14/2024 12:55 AM EST) Only the most recent of2 resultswithin the time period is included. Lipase 58 13 - 75 unit/L LAB CHEMISTRY METHOD 04/14/2024 2:[address] [facility] Blood Venous blood specimen / Unknown Venipuncture / Unknown 04/14/2024 12:55 AM EST 04/14/2024 1:22 AM EST us Ashley NELSON LAB BLOOD ORDERABLES Final Resul t [facility] [address] [place] [address], [place] [phone] * (ABNORMAL) Comprehensive metabolic panel (04/14/2024 12:55 AM EST) Only the most recent of2 resultswithin the time period is included. Sodium 135 133 - 145 mmol/L LAB CHEMISTRY METHOD 04/14/2024 2:[address] [facility] Potassium 4.2 3.5 - 5.5 mmol/L LAB CHEMISTRY METHOD 04/14/2024 2:[address] [facility] Chloride 101 96 - 110 mmol/L LAB CHEMISTRY METHOD 04/14/2024 2:[address] [facility] CO2 29 21 - 32 mmol/L LAB CHEMISTRY METHOD 04/14/2024 2:[address] [facility] Anion Gap 5 3 - 11 LAB CHEMISTRY METHOD 04/14/2024 2:[address] [facility] Comment:Rechecked. TB 2-13-2 5 Glucose 84 70 - 100 mg/dL LAB CHEMISTRY METHOD 04/14/2024 2:[address] [facility] BUN 23 5 - 25 mg/dL LAB CHEMISTRY METHOD 04/14/2024 2:[address] [facility] Creatinine 0.84 0.50 - 1.10 mg/dL LAB CHEMISTRY METHOD 04/14/2024 2:[address] [facility] eGFR 82 >=60 mL/min/1. 73m2 LAB CHEMISTRY METHOD 04/14/2024 2:[address] [facility] Comment:Calculation based on the??Chronic Kidney Disease Epidemiology Collaboration (CKD-EPI) equation refit??without adjustment for race. BUN/Creatinine Ratio 27.4 LAB CHEMISTRY METHOD 04/14/2024 2:[address] [facility] Calcium 9.0 8.5 - 10.5 mg/dL LAB CHEMISTRY METHOD 04/14/2024 2:[address] [facility] AST (SGOT) 20 10 - 42 unit/L LAB CHEMISTRY METHOD 04/14/2024 2:[address] [facility] ALT (SGPT) 16 10 - 60 unit/L LAB CHEMISTRY METHOD 04/14/2024 2:[address] [facility] Alkaline Phosphatase 54 42 - 121 unit/L LAB CHEMISTRY METHOD 04/14/2024 2:[address] [facility] Total Protein 7.1 6.0 - 8.0 g/dL LAB CHEMISTRY METHOD 04/14/2024 2:[address] [facility] Albumin 3.1(L) 3.2 - 5.0 g/dL LAB CHEMISTRY METHOD 04/14/2024 2:[address] [facility] Total Bilirubin 0.4 0.0 - 1.4 mg/dL LAB CHEMISTRY METHOD 04/14/2024 2:[address] [facility] Blood Venous blood specimen / Unknown Venipuncture / Unknown 04/14/2024 12:55 AM EST 04/14/2024 1:22 AM EST us Ashley NELSON LAB BLOOD ORDERABLES Final Resul t [facility] [address] [place] [address], * ECG 12 lead (04/14/2024 12:41 AM EST) Only the most recent of2 resultswithin the time period is included. Ventricular Rate ECG 102 BPM GEMUSE Atrial Rate 102 BPM GEMUSE P-R Interval 118 ms GEMUSE QRS Duration 66 ms GEMUSE Q-T Interval 326 ms GEMUSE QTc 424 ms GEMUSE P Wave [place] 37 degrees GEMUSE R [place] 15 degrees GEMUSE T [place] 29 degrees GEMUSE ECG Interpretation Sinus tachycardia [...] Signed Date: 04/14/2024 07:59 ET Workstation ID: [id number] Transcribed By: Self Edit Transcribed Date: 04/14/2024 [...] Signed Date: 04/14/2024 07:59 ET Workstation ID: [id number] Transcribed By: Self Edit Transcribed Date: 04/14/2024 07:57 ET Seth Jason MD IMG XR PROCEDURES Final Result * (ABNORMAL) Respiratory virus panel molecular study (04/13/2024 1:02 PM EST) Adenovirus Detection by PCR Not Detected Not Detected LAB MICROBIOLOGY METHOD 04/13/2024 2:[address] [facility] Influenza B PCR Not Detected Not Detected LAB MICROBIOLOGY METHOD 04/13/2024 2:[address] [facility] Coronavirus 229E Not Detected Not Detected LAB MICROBIOLOGY METHOD 04/13/2024 2:09 PM EST [facility] Coronavirus HKU1 Not Detected Not Detected LAB MICROBIOLOGY METHOD 04/13/2024 2:[address] [facility] Coronavirus OC43 Not Detected Not Detected LAB MICROBIOLOGY METHOD 04/13/2024 2:[address] [facility] Coronavirus NL63 Not Detected Not Detected LAB MICROBIOLOGY METHOD 04/13/2024 2:[address] [facility] Parainfluenza Virus 1 Not Detected Not Detected LAB MICROBIOLOGY METHOD 04/13/2024 2:[address] [facility] Parainfluenza Virus 2 Not Detected Not Detected LAB MICROBIOLOGY METHOD 04/13/2024 2:[address] [facility] Parainfluenza Virus 3 Not Detected Not Detected LAB MICROBIOLOGY METHOD 04/13/2024 2:[address] [facility] Parainfluenza Virus 4 Not Detected Not Detected LAB MICROBIOLOGY METHOD 04/13/2024 2:[address] [facility] RSV PCR Not Detected Not Detected LAB MICROBIOLOGY METHOD 04/13/2024 2:[address] [facility] Human Metapneumovirus A and B Not Detected Not Detected LAB MICROBIOLOGY METHOD 04/13/2024 2:[address] [facility] Rhinovirus/Entero virus Not Detected Not Detected LAB MICROBIOLOGY METHOD 04/13/2024 2:[address] [facility] Bordetella pertussis Not Detected Not Detected LAB MICROBIOLOGY METHOD 04/13/2024 2:[address] [facility] Bordetella parapertussis Not Detected Not Detected LAB MICROBIOLOGY METHOD 04/13/2024 2:[address] [facility] Influenza A H3 Detected(A ) Not Detected LAB MICROBIOLOGY METHOD 04/13/2024 2:[address] [facility] Mycoplasma pneumo by PCR Not Detected Not Detected LAB MICROBIOLOGY METHOD 04/13/2024 2:[address] [facility] Chlamydia pneumoniae Not Detected Not Detected LAB MICROBIOLOGY METHOD 04/13/2024 2:[address] [facility] SARS COV-2 Not Detected Not Detected LAB MICROBIOLOGY METHOD 04/13/2024 2:[address] [facility] Swab Both anterior nares / Unknown Non-blood Collection / Unknown 04/13/2024 1:02 PM EST 04/13/2024 1:02 PM EST [facility] - 04/13/2024 2:09 PM EST Testing was performed using the [employer] Respiratory Pathogen PCR Assay. All results must [...] MICROBIOLOGY - GEN ERAL ORDERABLES Final Result [facility] [address] [place] [address], * CT Angio Chest wo and/or w [...] infected, trauma patients, DIC, acute CVA, acute DE, unstable angina, AF, old age, , and smoking. D-Dimer may be decreased with: Initiation of heparin therapy and oral anticoagulants. us Ran Adams MD LAB BLOOD ORDERABLES Final R esult [facility] [address] [place] [address], * B-type natriuretic peptide (03/19/2024 2:53 PM EST) BNP 37 <=100 pcg/mL LAB CHEMISTRY METHOD 03/19/2024 3:47 PM EST [facility] Blood Venous blood specimen / Unknown Venipuncture / Unknown 03/19/2024 2:53 PM EST 03/19/2024 3:10 PM EST Marcial Jones MD LAB BLOOD ORDERABLES Gladis l Result [facility] [address] [place] [address], [place] [phone] * Magnesium (03/19/2024 2:53 PM EST) [facility] Magnesium 2.0 1.9 - 2.6 mg/dL LAB CHEMISTRY METHOD 03/19/2024 3:40 PM EST [facility] Blood Venous blood specimen / Unknown Venipuncture / Unknown 03/19/2024 2:53 PM EST 03/19/2024 3:10 PM EST Marcial Jones MD LAB BLOOD ORDERABLES Gladis l Result Performing Organization Address City/[facility]/ZIP Co de Phone Number [facility] [address] [place] [address], * DIANE SCREENING DIGITAL (02/27/2018 5:16 PM EST) Anatomical Region Laterality Modality Mammography 02/24/2018 10:4 4 AM EST Narrative 02/27/2018 5:16 PM EST [facility] Diagnostic Imaging Department [address] [place] [address] Patient: ??SCARLETT NEUMANN ?/Age/Sex: 1970 - 47 - F Unit#: ??[id number] ? Location/Status: ??SPDIMAM/REG CLI ? Mnemonic/Ordering Site: ??DIGSC/SPMAM Ordering Physician: ??EDUARDA VILLEDA MD Diane Screening Digital - 02/27/18 - 0758 INDICATION: SCREENING COMPARISON: [facility] mammograms dating back to ?? 08/05/2012 FINDINGS: CC and MLO views of the breasts were obtained, using full field digital mammography with 3D tomosynthesis views in the MLO projection. Computer aided detection with the [employer] 7.2-H was employed. History of reduction [...] date for the next mammogram. ([id number] / [id number]) , ??[id number] Dictating Physician: ??YONG WEATHERS MD Electronically Signed by: ??YONG WEATHERS MD Dic Date/Time: ??12/29/18 1712 Sign date/Time: ??02/27/181715 Procedure Note Yong Weathers MD - 02/18/2022 [facility] Diagnostic Imaging Department [address] [place] [id number] Patient: THIENSCARLETT /Age/Sex: 1970 - 47 - F Unit#: [id number] Location/Status: SPDIMAM/REG CLI Mnemonic/Ordering Site: [facility] Ordering Physician: EDUARDA VILLEDA MD Diane Screening Digital - 02/27/18 - 0758 INDICATION: SCREENING COMPARISON: [facility] mammograms dating back to 08/05/2012 FINDINGS: CC and MLO views of the breasts were obtained, using full field digital mammography with 3D tomosynthesis views in the MLO projection. Computeraided detection with the [employer] 7.2-H was employed. History of reduction [...] a target date for the next mammogram. [id number] / [id number]) , [id number] Dictating Physician: YONG WEATHERS MD Electronically Signed by: YONG WEATHERS MD Dic Date/Time: 02/27/181711 Sign date/Time: 02/27/181715 us Eduarda Villeda MD IMG BI PROCEDURES Final R esult from Last 3 Months or Most Recently Relevant to Health Maintenance Insurance MEDICAID - [place] Care Teams Hotbed Operator Relationship Specialty Start Date End Date Cristian Chacon [address] [place], [place] PCP - General Internal Medicine 10/17/20
--- OUTSIDE RECORDS SUMMARY | 2024-06-02 13:35 | XMS_ITS | Referral Summary ---
Author Organization [facility] Address [address] [place] [address] Care Team Providers Care Scrap Iron Loader Name Role Phone Cristian Chacon MD Primary Care Prov ider Encounters Date Type Department Care Team Description 04/21/2024 Telephone [facility] 4th floor Cardiology Medicine [address] [place] [phone] Gift Basket Packer: Mary Arriaga Telephone Intake, Staff PAC Form/Letter/Record s Request 04/20/2024 9:00 AM EST Follow-Up [facility] [address] [place] [address] Gift Basket Packer: Alonzo Baez MD FELI positive (Primary Dx); Arthralgia, unspecified joint; Chest pain, unspecified type; Moderate persistent asthma, unspecified whether complicated 04/08/2024 Telephone [facility] [address] [place] [phone] Gift Basket Packer: Zaida Rust Telephone Intake, Staff PAC Sick/Symptoms 03/30/2024 Telephone [facility] [address] [place] [address] Gift Basket Packer: Alonzo Baez MD PAC Patient Request Call Back; PAC Clinical Questions 03/27/2024 Telephone [facility] Rheumatology [address] [place] [phone] Gift Basket Packer: Alonzo Caputo MD 03/25/2024 Telephone [facility] Rheumatology [address] [place] [phone] Gift Basket Packer: Alonzo Caputo MD 03/24/2024 Documentation [facility] Rheumatology [address] [place] [phone] Gift Basket Packer: Alonzo Caputo MD 03/24/2024 Telephone [facility] Rheumatology [address] [place] [phone] Gift Basket Packer: Alonzo Caputo MD 03/23/2024 4:00 PM EST - 03/23/2024 11:59 PM EST Hospital Encounter [facility] XRay [address] [place] [phone] Alonzo Persaud MD Chronic pain of both shoulders; Bilateral hip pain; Neck pain Discharge Disposition: Home or Self Care () 03/23/2024 3:20 PM EST Office Visit [facility] [address] [place] [phone] Gift Basket Packer: Alonzo Baez MD Chronic pain of both shoulders (Primary Dx); Bilateral hip pain; Neck pain 03/22/2024 Telephone [facility] [address] [place] [phone] Gift Basket Packer: Zaida Rust Telephone Intake, Staff PAC Provider Requested Call Back Dr Persaud 03/22/2024 Telephone [facility] Endocrinology [facility] [address] [place] [phone] Gift Basket Packer: Alysha Roman Telephone Intake, Staff 03/17/2024 Refill [facility] [address] [place] [phone] Gift Basket Packer: Alonzo Baez MD 03/05/2024 Refill [facility] [address] [place] [address] Gift Basket Packer: Alonzo Baez MD from Last 3 Months [...] Info) Description 08/02/2024 1:30 PM EDT Follow-Up [facility]ermat[facility] [address] [place] [address] Gift Basket Packer: Morales Ramsey MD [address] [place] [phone] 08/16/2024 2:00 PM EDT Office Visit [facility] [address] [place] [phone] Gift Basket Packer: Juan Ramon Vallejo, Dennis Whitlock MD [address] [place] [phone] Scheduled Procedures Name Priority Associated Diagnoses Date/Ti me ARTHROSCOPY, SHOULDER, WITH ROTATOR CUFF REPAIR Chronic left shoulder pain ARTHROSCOPY, SHOULDER, DEBRI RONAL, EXTENSIVE Chronic left shoulder pain ARTHROSCOPY, SHOULDER, BICEP S TENODESIS Chronic left shoulder pain Procedures * Due to [place] state law, this organization might not be [...] AM EST FELI positive Arthralgia, unspecified joint [id number] STAT 04/20/19 9:23 AM EST FELI positive [...] to Health Maintenance Results * Due to [place] state law, this organization might not be sharing negative HIV tests. * Drake Top, Urine (04/20/2024 9:23 AM EST) Only the most recent of2 resultswithin the time period is included. Extra Tube Hold for add-ons. 04/20/2024 2:05 PM EST [facility] Comment:Auto resulted. Urine Urine specimen collection, clean catch / Unknown Non-Blood Collection / Unknown 04/20/2024 9:23 AM EST 04/20/2024 9:39 AM EST us Alonzo Persaud MD LAB URINE ORDERABLES Final Result Performing Organization Address City/State/[facility] Co de Phone Number [facility] [address] [place] [address], [place] * (ABNORMAL) DNA AB(DS) Crithidia Titer (04/20/2024 9:23 AM EST) Only the most recent of2 resultswithin the time period is included. DNA Ab Crithidia Titer 1:40(H) <1:10 titer 04/23/2024 12:47 PM EST [facility] Blood Structure of peripheral vein / Unknown Venipuncture / Unknown 04/20/2024 9:23 AM EST 04/20/2024 9:38 AM EST Narrative [facility] - 04/23/2024 12:47 PM EST [facility] Received Date: us Alonzo Persaud MD LAB BLOOD ORDERABLES Final Result [facility] [address] [facility] [address]rd Floor, [address] [place] [address], [place] [phone] [facility] LAO ([place]) [address] [place] [address], [place] * (ABNORMAL) Urinalysis W/Reflex to Microscopic & Culture (04/20/2024 9:23 AM EST) Only the most recent of2 resultswithin the time period is included. Color, Urine Yellow Colorless, Light Yellow, Yellow, Dark Yellow 04/20/2024 9:59 AM [facility] Clarity, Urine Clear Clear 04/20/2024 9:59 AM [facility] Specific Powell, Urine 1.024 1.005 - 1.030 04/20/2024 9:59 AM [facility] pH, Urine 5.0 4.6 - 8.0 04/20/2024 9:59 AM [facility] Protein, Urine 1+(A) Negative 04/20/2024 9:59 AM [facility] Glucose, Urine Negative Negative 04/20/2024 9:59 AM [facility] Ketones, Urine Negative Negative 04/20/2024 9:59 AM [facility] Bilirubin, Urine Negative Negative 04/20/2024 9:59 AM [facility] Blood, Urine Negative Negative 04/20/2024 9:59 AM [facility] Nitrite, Urine Negative Negative 04/20/2024 9:59 AM [facility] Urobilinogen, Urine Normal Normal 04/20/2024 9:59 AM [facility] Leukocyte Esterase, Urine Negative Negative 04/20/2024 9:59 AM [facility] WBC, Urine 1 0 - 2 /HPF 04/20/2024 9:59 AM EST [facility] RBC, Urine <1 0 - 2 /HPF 04/20/2024 9:59 AM EST [facility] Hyaline Casts, Urine 0 0 - 2 /LPF 04/20/2024 9:59 AM EST [facility] Squamous Epithelial Cells, Urine 2 /HPF 04/20/2024 9:59 AM EST [facility] Bacteria, Urine None None /HPF /HPF 04/20/2024 9:59 AM EST [facility] Mucus, Urine Rare /LPF 04/20/2024 9:59 AM EST [facility] Urine Urine specimen collection, clean catch / Unknown Non-Blood Collection / Unknown 04/20/2024 9:23 AM EST 04/20/2024 9:39 AM EST us Alonzo Persaud MD LAB URINE ORDERABLES Final Result [facility] [address] [place] [phone], * (ABNORMAL) DNA Antibody (ds) Crithidia IFA w/Reflex (04/20/2024 9:23 AM EST) Only the most recent of2 resultswithin the time period is included. DNA Ab(ds) Crithidia, IFA Positive(A ) Negative 04/23/2024 12:26 PM EST [facility] Blood Structure of peripheral vein / Unknown Venipuncture / Unknown 04/20/2024 9:23 AM EST 04/20/2024 9:38 AM EST Narrative [facility] - 04/23/2024 12:26 PM EST [facility] Received Date:[id number] us Alonzo Persaud MD LAB BLOOD ORDERABLES Final Result [facility] [address] [facility] 3rd Floor, [address] [facility] [address], [place] [phone] PHILLIP LAO ([place]) [id number] [place] [address], [place] * Procalcitonin (04/20/2024 9:23 AM EST) Procalcitonin <0.20 <0.20 ng/mL 04/22/2024 2:53 PM EST [email or web address] Comment: Verified by repeat analysis. Procalcitonin levels above 2.00 ng/mL on the first day of ICU admission represent a high risk for progression to severe sepsis and/or septic shock. Procalcitonin Comment See Comments 04/22/2024 2:53 PM EST [email or web address] Comment: Interpretation Guidelines Diagnosis of systemic [...] 9:38 AM EST Narrative [facility] - 04/22/2024 2:53 PM EST [facility] Received Date: Alonzo Persaud MD LAB BLOOD ORDERABLES Final Result [facility] ROSARIO [address] [facility] [address]rd [address], [place] [address], [place] [phone] [employer] [facility] [address] [place] [address], [place] [phone] * (ABNORMAL) CBC Auto Differential (04/20/2024 9:23 AM EST) Only the most recent of2 resultswithin the time period is included. WBC 12.4(H) 3.8 - 10.8 10*3/uL 04/20/2024 9:47 AM [facility] RBC 4.34 3.80 - 5.10 10*6/uL 04/20/2024 9:47 AM [facility] Hemoglobin 12.3 11.7 - 15.5 g/dL 04/20/2024 9:47 AM [facility] Hematocrit 39.1 35.0 - 45.0 % 04/20/2024 9:47 AM [facility] MCV 90.1 80.0 - 100.0 fL 04/20/2024 9:47 AM [facility] MCH 28.3 27.0 - 33.0 pg 04/20/2024 9:47 AM [facility] MCHC 31.5(L) 32.0 - 36.0 g/dL 04/20/2024 9:47 AM [facility] RDW 13.4 11.0 - 15.0 % 04/20/2024 9:47 AM [facility] Platelets 351 140 - 400 10*3/uL 04/20/2024 9:47 AM [facility] MPV 9.4 7.5 - 12.5 fL 04/20/2024 9:47 AM [facility] Neutrophil % 88.3 % 04/20/2024 9:47 AM [facility] Immature Grans % 1.1(H) 0.0 - 0.9 % 04/20/2024 9:47 AM [facility] Lymphocyte % 6.1 % 04/20/2024 9:47 AM EST [facility] Monocyte % 4.1 % 04/20/2024 9:47 AM EST [facility] Eosinophil % 0.2 % 04/20/2024 9:47 AM EST [facility] Basophil % 0.2 % 04/20/2024 9:47 AM EST [facility] Neutrophil # 10.92(H) 1.50 - 7.80 10*3/uL 04/20/2024 9:47 AM EST [facility] Immature Grans # 0.14(H) <=0.03 10*3/uL 04/20/2024 9:47 AM EST [facility] Lymphocyte # 0.80(L) 0.85 - 3.90 10*3/uL 04/20/2024 9:47 AM EST [facility] Monocyte # 0.50 0.20 - 0.95 10*3/uL 04/20/2024 9:47 AM EST [facility] Eosinophil # <0.03 0.02 - 0.50 10*3/uL 04/20/2024 9:47 AM EST [facility] Basophil # <0.03 0.00 - 0.20 10*3/uL 04/20/2024 9:47 AM EST [facility] nRBC % 0.0 /100 WBCs 04/20/2024 9:47 AM EST [facility] nRBC # <0.01 <0.01 10*3/uL 04/20/2024 9:47 AM EST [facility] Blood Structure of peripheral vein / Unknown Venipuncture / Unknown 04/20/2024 9:23 AM EST 04/20/2024 9:38 AM EST us Alonzo Persaud MD LAB BLOOD ORDERABLES Final Result [facility] [address] * Microalbumin, Random Urine with Creatinine (04/20/2024 9:23 AM EST) Only the most recent of2 resultswithin the time period is included. Microalbumin, Urine <2.0 mg/dL 04/20/2024 12:17 PM EST [facility] Creatinine, Urine 186 15 - 278 mg/dL 04/20/2024 12:17 PM EST [facility] Microalb/Creat Ratio, Random Urine 04/20/2024 12:17 PM EST [facility] Comment: < 1.0 mcg/mgCr Microalbumin Reference Range: Normal ? <30 mcg/mg Creatinine Microalbuminuria ? 30-300 mcg/mg Creatinine Clinical Albuminuria >300 mcg/mg Creatinine Reference: ADA Guideline. Diabetes Care. 2004;27 (suppl 1) Urine Voided urine specimen / Unknown Non-Blood Collection / Unknown 04/20/2024 9:23 AM EST 04/20/2024 9:39 AM EST Alonzo Persaud MD LAB URINE ORDERABLES Final Result Performing Organization Address [facility]/State/[facility] Co de Phone Number [facility] [address] [facility]ORY [address] * (ABNORMAL) DNA Antibody, Double-Stranded (04/20/2024 9:23 AM EST) Only the most recent of2 resultswithin the time period is included. DNA (Ds) Antibody 7(H) IU/mL 025 9:50 PM EST [employer] Comment: ? IU/mL ? Interpretation ? < or = 4 ?Negative ? 5-9 ? Indeterminate ? > or = 10 ?? Positive Blood Structure of peripheral vein / Unknown Venipuncture / Unknown 04/20/2024 9:23 AM EST 04/20/2024 9:38 AM EST Narrative [facility] - 04/21/2024 9:50 PM EST [facility] Received Date: Alonzo Persaud MD LAB BLOOD ORDERABLES Final Result Performing Organization Address City/[facility] de Phone Number [address] [facility], [place] [address], [place] [phone] [employer] [address], [place] [address], [place] [phone] * Sedimentation Rate (04/20/2024 9:23 AM EST) Only the most recent of2 resultswithin the time period is included. Pathologist [facility] Sed Rate 23 <30 mm/Hr mm/Hr 04/20/2024 10:04 AM EST [facility] Blood Structure of peripheral vein / Unknown Venipuncture / Unknown 04/20/2024 9:23 AM EST 04/20/2024 9:38 AM EST Alonzo Persaud MD LAB BLOOD ORDERABLES Final Result Performing Organization Address City/[facility]/ZIP Co de Phone Number [facility] [address] [place] [address], * Complement C3 (04/20/2024 9:23 AM EST) Only the most recent of2 resultswithin the time period is included. Complement Component C3C 101 83 - 193 mg/dL 04/21/2024 4:22 AM EST [employer] [facility] Blood Structure of peripheral vein / Unknown Venipuncture / Unknown 04/20/2024 9:23 AM EST 04/20/2024 9:38 AM EST [facility] 04/21/2024 4:22 AM EST [facility] Received Date: Alonzo Persaud MD LAB BLOOD ORDERABLES Final Result [facility] [address] [facility] [address] [facility], [place] [address], [place] [phone] [employer] [facility] [address], [place] [address], [place] [phone] * Complement C4 (04/20/2024 9:23 AM EST) Only the most recent of2 resultswithin the time period is included. Complement Component C4C 21 15 - 57 mg/dL 04/21/2024 4:22 AM EST [employer] [facility] Blood Structure of peripheral vein / Unknown Venipuncture / Unknown 04/20/2024 9:23 AM EST 04/20/2024 9:38 AM EST Narrative [facility] - 04/21/2024 4:22 AM EST [facility] Received Date: us Alonzo Persaud MD LAB BLOOD ORDERABLES Final Result [facility] [address] [facility] [address] [facility], [place] [address], [place] [phone] [employer] [facility] [address] [facility] [address] [facility], [place] [address], [place] [phone] * (ABNORMAL) C-Reactive Protein (04/20/2024 9:23 AM EST) Only the most recent of2 resultswithin the time period is included. C Reactive Protein 10.5(H) <=9.9 mg/L 04/20/2024 10:34 AM EST [facility] Blood Structure of peripheral vein / Unknown Venipuncture / Unknown 04/20/2024 9:23 AM EST 04/20/2024 9:38 AM EST Alonzo Persaud MD LAB BLOOD ORDERABLES Final Result Performing Organization Address [facility] Co de Phone Number [facility] [address] [place] [address], * (ABNORMAL) Creatine Kinase (04/20/2024 9:23 AM EST) Only the most recent of2 resultswithin the time period is included. CK 35(L) 38 - 206 U/L 04/20/2024 10:34 AM EST [facility] Blood Structure of peripheral vein / Unknown Venipuncture / Unknown 04/20/2024 9:23 AM EST 04/20/2024 9:38 AM EST Alonzo Persaud MD LAB BLOOD ORDERABLES Final Result Performing Organization Address [facility] de Phone Number [facility] [address] [place] [address], * (ABNORMAL) Comprehensive Metabolic Panel (04/20/2024 9:23 AM EST) Only the most recent of2 resultswithin the time period is included. NA 139 135 - 145 mmol/L 04/20/2024 10:34 AM EST [facility] K 3.8 3.5 - 5.3 mmol/L 04/20/2024 10:34 AM EST [facility] Cl 105 98 - 107 mmol/L 04/20/2024 10:34 AM EST [facility] CO2 24 22 - 32 mmol/L 04/20/2024 10:34 AM EST [facility] Anion Gap 10 5 - 15 04/20/2024 10:34 AM EST [facility] Glucose 177(H) 65 - 99 mg/dL 04/20/2024 10:34 AM [facility] Creatinine 0.73 0.50 - 1.20 mg/dL 04/20/2024 10:34 AM [facility] Calcium 8.4(L) 8.6 - 10.5 mg/dL 04/20/2024 10:34 AM [facility] Total Protein 6.9 6.0 - 8.0 g/dL 04/20/2024 10:34 AM [facility] Albumin 3.4(L) 3.5 - 5.2 g/dL 04/20/2024 10:34 AM [facility] Bilirubin, Total 0.3 0.2 - 1.2 mg/dL 04/20/2024 10:34 AM [facility] Alkaline Phosphatase 50 35 - 129 U/L 04/20/2024 10:34 AM [facility] AST 14 10 - 40 U/L 04/20/2024 10:34 AM [facility] ALT 11 10 - 40 U/L 04/20/2024 10:34 AM [facility] BUN 24(H) 7 - 23 mg/dL 04/20/2024 10:34 AM [facility] eGFR >90 >=60 mL/min/1. 73m2 04/20/2024 10:34 AM [facility] Comment:The estimated glomer ular [...] - 4.2 g/dL 04/20/2024 10:34 AM EST [facility] A/G Ratio 1.0(L) 1.5 - 3.0 04/20/2024 10:34 AM EST [facility] Blood Structure of peripheral vein / Unknown Venipuncture / Unknown 04/20/2024 9:23 AM EST 04/20/2024 9:38 AM EST Alonzo Persaud MD LAB BLOOD ORDERABLES Final Result Performing Organization Address [facility] Co de Phone Number [facility] [address] [place] [address], [place] * Interpretation (03/23/2024 4:48 PM EST) FELI Specific Antibody Interpretation See Comments 03/25/2024 12:23 PM EST [employer] Comment: The presence of these two antibodies [...] EST 03/23/2024 5:31 PM EST Narrative [facility] - 03/25/2024 12:23 PM EST [facility] Received Date: Alonzo Persaud MD LAB BLOOD ORDERABLES Final Result Performing Organization Address City/[facility]/ZIP Co de Phone Number [facility] [address] [facility] [address]rd [address], [place] [address], [place] [phone] [employer] [facility] [address] [facility] 3rd Floor, [place] [address], [place] [phone] * (ABNORMAL) Stage 1 (03/23/2024 4:48 PM EST) DNA (Ds) Antibody 11(H) IU/mL 025 12:23 PM EST [employer] Comment: ? IU/mL ? Interpretation ? < or = 4 ?Negative ? 5-9 ? Indeterminate ? > or = 10 ?? Positive Sm Antibody <1.0 NEG <1.0 NEG AI 03/25/2024 12:23 PM [employer] SM/DEBURRING TECHNICIAN Antibody <1.0 NEG <1.0 NEG AI 03/25/2024 12:23 PM [employer] DEBURRING TECHNICIAN Antibody <1.0 NEG <1.0 NEG AI 03/25/2024 12:23 PM [employer] [place] Zero Locus Chromatin Antibody 3.0 POS(A) <1.0 NEG AI 03/25/2024 12:23 PM [employer] Comment: ANTIBODY PREVALENCE IN TIER 1 ? [...] Sjogren's syndrome and 8% polymyositis. ?? Ribonucleoprotein (DEBURRING TECHNICIAN) antibodies are to DEBURRING TECHNICIAN A and/or DEBURRING TECHNICIAN 68kD proteins; antibodies to one or both are present in >80% MCTD, 22% to 48% SLE, 14% systemic sclerosis, 12% Sjogren's and 8% polymyositis. ?? Sm/DEBURRING TECHNICIAN antibodies are directed to epitopes formed in a complex of Sm and DEBURRING TECHNICIAN; antibodies to the Sm/DEBURRING TECHNICIAN complex are present in 54% to 94% MCTD, 30% SLE, 4% systemic sclerosis, and 9% Sjogren's and polymyositis. ?? Sm antibody is present in 20% to 30% SLE, 8% MCTD, 10% polymyositis, 0% systemic sclerosis and 4% Sjogren's syndrome. ?? Double stranded DNA, Chromatin, Ribonucleoprotein, Sm/DEBURRING TECHNICIAN complex and Sm antibodies are present in <2% of normal blood donors. ?? The Scott does not rule out autoimmune disease characterized by other autoantibody specificities such as rheumatoid arthritis, autoimmune hepatitis, primary biliary cirrhosis, autoimmune thyroiditis, Hillsdale's disease, pernicious anemia, autoimmune neuropathies, vasculitis, celiac disease and bullous disease. Please contact your local [employer] laboratory if you are interested in additional testing. Blood Structure of peripheral vein / Unknown Venipuncture / Unknown 03/23/2024 4:48 PM EST 03/23/2024 5:31 PM EST Narrative [facility] - 03/25/2024 12:23 PM EST [facility] Received Date: Alonzo Persaud MD LAB BLOOD ORDERABLES Final Result [facility] [address] [facility] 3rd [address], [place] [address], [employer] [facility] [address] [facility] 3rd Floor, [place] [address], * (ABNORMAL) FELI, Titer and Pattern (03/23/2024 4:48 PM EST) FELI Titer 1 1:1280(H) titer 03/30/2024 4:22 PM EST [employer] Comment: ?Reference Range ?<1:40 ?Negative ?1:40-1:80 ?Low Antibody Level ?>1:80 ?Elevated Antibody Level FELI Pattern 1 Nuclear, Homogeneo us(A) 03/30/2024 4:22 PM EST [employer] Comment: Homogeneous pattern is associated with systemic lupus erythematosus (SLE), drug-induced lupus and juvenile idiopathic arthritis. AC-1: Homogeneous International Consensus on FELI Patterns (https://doi.org/10.1515/daow-2415-3275) Blood Structure of peripheral vein / Unknown Venipuncture / Unknown 03/23/2024 4:48 PM EST 03/23/2024 5:31 PM EST Narrative [facility] - 03/30/2024 4:22 PM EST [facility] Received Date: Alonzo Persaud MD LAB BLOOD ORDERABLES Final Result [facility] [address] [facility] [address], [place] [address], [employer] [facility] [address] [facility] 3rd Floor, [place] [address], * (ABNORMAL) [place] & Lambda, Free w/Ratio (03/23/2024 4:48 PM EST) [place] Light Chain, Free, Serum 99.6(H) 3.3 - 19.4 mg/L 03/24/2024 3:56 PM EST [employer] Lambda Light Chain, Free, Serum 60.2(H) 5.7 - 26.3 mg/L 03/24/2024 3:56 PM EST [employer] [place]/Lambda Light Chains Free With Ratio 1.65 0.26 - 1.65 03/24/2024 3:56 PM EST [employer] Comment: Free kappa/lambda ratio in serum of [...] 4:48 PM EST 03/23/2024 5:31 PM EST [facility] - 03/24/2024 3:56 PM EST [facility] Received Date: Alonzo Persaud MD LAB BLOOD ORDERABLES Final Result [facility] [address] [facility] [address]rd Floor, [place] [address], [employer] [facility] [address] [facility] 3rd Floor, [place] [address], * (ABNORMAL) Protein Electrophoresis w/Reflex to Immunofixation, Serum (03/23/2024 4:48 PM EST) Protein, Total 6.5 6.1 - 8.1 g/dL 03/25/2024 7:04 AM EST [facility] Albumin 3.0(L) 3.8 - 4.8 g/dL 03/25/2024 7:04 AM [facility] Alpha 1 Globulin 0.5(H) 0.2 - 0.3 g/dL 03/25/2024 7:04 AM [facility] Alpha 2 Globulin 0.9 0.5 - 0.9 g/dL 03/25/2024 7:04 AM [facility] [place] Zero Locus Beta 1 Globulin 0.4 0.4 - 0.6 g/dL 03/25/2024 7:04 AM [facility] [place] Zero Locus Beta 2 Globulin 0.4 0.2 - 0.5 g/dL 03/25/2024 7:04 AM [facility] Gamma Globulin 1.2 0.8 - 1.7 g/dL 03/25/2024 7:04 AM [facility] Interpretation See Comments 03/25/2024 7:04 AM [facility] Comment: Pattern consistent with an acute phase reaction Blood Structure of peripheral vein / Unknown Venipuncture / Unknown 03/23/2024 4:48 PM EST 03/23/2024 5:31 PM EST Narrative [facility] - 03/25/2024 7:04 AM EST [facility] Received Date: Alonzo Persaud MD LAB BLOOD ORDERABLES Final Result Performing Organization Address City/[facility]/ZIP Co de Phone Number [facility] [address], [place] [address], [place] [phone] [facility] [address], [place] [address], [place] [phone] * Cyclic Citrullinated Peptide (CCP) Antibody, IgG (03/23/2024 4:48 PM EST) Cyclic Citrullinated Peptide (CCP) Ab (IgG) <16 UNITS 03/25/2024 2:15 PM EST [facility] Comment: Reference Range Negative: ?<20 Weak Positive: ? 20-39 Moderate Positive: ?? 40-59 Strong Positive: ? >59 Blood Structure of peripheral vein / Unknown Venipuncture / Unknown 03/23/2024 4:48 PM EST 03/23/2024 5:31 PM EST Narrative [facility] 03/25/2024 2:15 PM EST [facility] Received Date: us Alonzo Persaud MD LAB BLOOD ORDERABLES Final Result Performing Organization Address City/[facility]/ZIP Co de Phone Number [facility] [address] [facility] [address] [facility], [place] [address], [place] [phone] [facility] [address], [place] [address], [place] [phone] * Lyme Antibody Screen w/Reflex to Blot (03/23/2024 4:48 PM EST) Lyme Ab Screen <0.90 index 03/24/2024 11:29 AM EST [employer] Comment: ? Index ?Interpretation ? ----- ? [...] [facility] [address], [place] [address], [place] [phone] [employer] [facility] 200 [facility] 3rd Floor, [place] [address], [place] [phone] * (ABNORMAL) FELI Screen, IFA, w/Reflex to Titer & Pattern (03/23/2024 4:48 PM EST) FELI Screen, IFA POSITIVE (A) NEGATIVE 03/30/2024 4:21 PM EST [employer] Comment: FELI IFA is a first line screen for detecting the presence of up to approximately 150 autoantibodies in various autoimmune diseases. A positive FELI IFA result is suggestive of autoimmune disease and reflexes to titer and pattern. Further laboratory testing may be considered if clinically indicated. For additional information, please refer to http://education.tibdit/faq/VKG863 (This link is being provided for informational/ educational purposes only.) ?? Blood Structure of peripheral vein / Unknown Venipuncture / Unknown 03/23/2024 4:48 PM EST 03/23/2024 5:31 PM EST Narrative [facility] - 03/30/2024 4:21 PM EST [facility] Received Date: Alonzo Persaud MD LAB BLOOD ORDERABLES Final Result [facility] 200 [facility] 3rd Floor, [place] [address], [employer] [facility] [address] [facility] 3rd Floor, [place] [address], [place] [phone] * Urine Culture, Routine (03/23/2024 4:48 PM EST) Pathologist [facility] Culture Mixed genital zachary isolated. These superficial bacteria are not indicative of a urinary tract infection. No further organism identification is warranted on this specimen. 03/24/2024 5:21 PM EST [employer] Urine Urine specimen collection, clean catch / Unknown Non-Blood Collection / Unknown 03/23/2024 4:48 PM EST 03/23/2024 6:19 PM EST Narrative [facility] - 03/24/2024 5:21 PM EST [facility] Received Date: MICRO NUMBER: [id number] SPECIMEN QUALITY: Adequate SOURCE: URINE CLEAN CATCH STATUS: FINAL If clinically indicated, recollect clean-catch, mid-stream urine and transfer immediately to Urine Culture Transport Tube. us Alonzo Persaud MD LAB MICROBIOLOGY - GENERAL ORDERABLES Final Result Performing Organization Address City/[facility]/ZIP Co de Phone Number [facility] [address], [place] [address], [place] [phone] [facility] [address], [place] [address], [place] [phone] * (ABNORMAL) FELI Specific Antibody w/Reflex to Scott (03/23/2024 4:48 PM EST) FELI Screen, Immunoassay POSITIVE (A) NEGATIVE 03/25/2024 12:23 PM EST [facility] Comment: A positive FELI Multiplex indicates the presence of detectable antibodies to one or more of the component analytes consisting of double stranded DNA (dsDNA), chromatin, ribonucleoprotein (DEBURRING TECHNICIAN), Mojica/DEBURRING TECHNICIAN (Sm/DEBURRING TECHNICIAN), Mojica (Sm), SS-A, SS-B, Bozena-1, centromere B, Scl-70 and ribosomal P. Further laboratory testing may be considered if clinically indicated. For additional information, please refer to http://education.tibdit/faq/VTE290 (This link is being provided for informational/ educational purposes only.) ?? Blood Structure of peripheral vein / Unknown Venipuncture / Unknown 03/23/2024 4:48 PM EST 03/23/2024 5:31 PM EST Narrative [facility] - 03/25/2024 12:23 PM EST [facility] Received Date: us Alonzo Persaud MD LAB BLOOD ORDERABLES Final Result [facility] [address], [place] [address], [place] [phone] [facility] [address], [place] [address], [place] [phone] * (ABNORMAL) Lactate Dehydrogenase (03/23/2024 4:48 PM EST) LDH 285(H) 135 - 225 U/L 03/23/2024 6:41 PM EST [facility] Blood Structure of peripheral vein / Unknown Venipuncture / Unknown 03/23/2024 4:48 PM EST 03/23/2024 5:31 PM EST Alonzo Persaud MD LAB BLOOD ORDERABLES Final Result Performing Organization Address City/[facility]/ZIP Co de Phone Number [facility] [address] [place] [address], [place] * Gamma Glutamyl Transferase (03/23/2024 4:48 PM EST) GGT 35 5 - 61 U/L 03/23/2024 6:09 PM EST [facility] Blood Structure of peripheral vein / Unknown Venipuncture / Unknown 03/23/2024 4:48 PM EST 03/23/2024 5:31 PM EST Alonzo Persaud MD LAB BLOOD ORDERABLES Final Result Performing Organization Address [facility] de Phone Number [facility] [address] [place] [address], [place] * (ABNORMAL) IgA (03/23/2024 4:48 PM EST) Immunoglobulin A 319(H) 47 - 310 mg/dL 03/24/2024 8:01 AM EST [facility] Blood Structure of peripheral vein / Unknown Venipuncture / Unknown 03/23/2024 4:48 PM EST 03/23/2024 5:31 PM EST Narrative [facility] - 03/24/2024 8:01 AM EST [facility] Received Date: us Alonzo Persaud MD LAB BLOOD ORDERABLES Final Result Performing Organization Address City/[facility]/ZIP Co de Phone Number [address] Floor, [place] [address], [place] [phone] [employer] [facility] [address] [facility] 3rd Floor, [address] [facility] [place] [address], [place] [phone] * IgM (03/23/2024 4:48 PM EST) Immunoglobulin M 80 50 - 300 mg/dL 03/24/2024 8:01 AM EST [facility] Blood Structure of peripheral vein / Unknown Venipuncture / Unknown 03/23/2024 4:48 PM EST 03/23/2024 5:31 PM EST Narrative [facility] - 03/24/2024 8:01 AM EST [facility] Received Date: us Alonzo Persaud MD LAB BLOOD ORDERABLES Final Result [facility] [address], [address] [facility] [place] [address], [place] [phone] [facility] [address] [facility] [address] [facility], [address] [facility] [place] [address], [place] [phone] * IgG (03/23/2024 4:48 PM EST) IgG, Serum 1448 600 - 1640 mg/dL 03/24/2024 8:01 AM EST [facility] Blood Structure of peripheral vein / Unknown Venipuncture / Unknown 03/23/2024 4:48 PM EST 03/23/2024 5:31 PM EST [facility]arrative [facility] 03/24/2024 8:01 AM EST [facility] Received Date: us Alonzo Persaud MD LAB BLOOD ORDERABLES Final Result [facility] 200 [facility] 3rd Floor, [address] [facility] [place] [address], [place] [phone] [facility] [address], [place] [address], [place] [phone] * Ferritin (03/23/2024 4:48 PM EST) Ferritin 279.0 11.0 - 306.0 ng/mL 03/23/2024 6:09 PM EST [facility] Blood Structure of peripheral vein / Unknown Venipuncture / Unknown 03/23/2024 4:48 PM EST 03/23/2024 5:31 PM EST us Alonzo Persaud MD LAB BLOOD ORDERABLES Final Result [facility] [address] [place] [address], [place] * XR Hips Bilateral 5+ vw [...] obtain the completed interpretation. ? Workstation ID: [id number] Narrative 03/23/2024 6:11 PM EST COMPARISON: None. ?? Resulting Agency Comment [id number] Procedure Note Augusto Buck MD - 03/23/2024 [...] possible to obtain thecompleted interpretation. Workstation ID: [id number] us Alonzo Persaud MD IMG XR PROCEDURES [...] obtain the completed interpretation. ? Workstation ID: [id number] Narrative 03/23/2024 6:11 PM EST COMPARISON: None. ?? Resulting Agency Comment [id number] Procedure Note Augusto Buck MD - 03/23/2024 [...] possible to obtain thecompleted interpretation. Workstation ID: [id number] us Alonzo Persaud MD IMG XR PROCEDURES [...] obtain the completed interpretation. ? Workstation ID: [id number] Narrative 03/23/2024 6:11 PM EST COMPARISON: None. ?? Resulting Agency Comment [id number] Procedure Note Augusto Buck MD - 03/23/2024 [...] possible to obtain thecompleted interpretation. Workstation ID: [id number] us Alonzo Persaud MD IMG XR PROCEDURES [...] obtain the completed interpretation. ? Workstation ID: [id number] Narrative 03/23/2024 6:11 PM EST COMPARISON: None. ?? Resulting Agency Comment [id number] Procedure Note Augusto Buck MD - 03/23/2024 [...] possible to obtain thecompleted interpretation. Workstation ID: [id number] Alonzo Persaud MD IMG XR PROCEDURES Final Re sult * Hepatitis C Antibody w/Reflex to HCV RNA, Quantitative PCR (06/04/2022 5:43 PM EDT) Hepatitis C Antibody NON-REACT BETO NON-REACT BETO 06/05/2022 3:44 AM EDT [employer] Signal To Cut-Off 0.02 <1.00 06/05/2022 3:44 AM EDT [employer] Comment: HCV antibody was non-reactive. There is no laboratory evidence of HCV infection. In most cases, no further action is required. However, if recent HCV exposure is suspected, a test for HCV RNA (test code 76851) is suggested. For additional information please refer to http://education.FaceOn Mobile.TNT Crowd/faq/AFI52y1 (This link is being provided for informational/ educational purposes only.) Blood Structure of peripheral vein / Unknown Venipuncture / Unknown 06/04/2022 5:43 PM EDT 06/04/2022 6:08 PM EDT Narrative [facility] - 06/05/2022 3:44 AM EDT [facility] Received Date: us Alonzo Persaud MD LAB BLOOD ORDERABLES Final Result [facility] 200 [facility] 3rd Floor, [place] [address], [place] [phone] [facility] [address] [facility] 3rd Floor, [place] [address], [place] [phone] from Last 3 Months or Most Recently Relevant to Health Maintenance Insurance [facility] Care Teams Scrap Iron Loader Relationship Specialty Start Date End Date Cristian Chacon MD [address] [place] [address] PCP - General 06/04/22
--- OUTSIDE RECORDS SUMMARY | 2024-06-02 13:35 | XMS_ITS | Encounter Summary ---
Author Organization [employer] Address [address] [facility] 7 [place] [address] Care Team Providers Care Poultry Vaccinator Name Role Phone Cristian Chacon MD Primary Care Prov ider Reason for Visit * Reason Onset Date Comments New med script 04/01/2022 Encounter Details Date Type Department Care Team ([facility] Contact Info) Description 04/01/2022 Telephone [facility] [address] [place], [place] [phone] Cristian Chacon MD [address] [place] [address] New med script Social History Tobacco Use [...] on filedocumented in this encounter Care Teams Poultry Vaccinator Relationship Specialty Start Date End Date Cristian Chacon MD [address] [place] [address] PCP - General Internal Medicine 03/17/19 Ivy Payne Ground Support AgentComputer Salesperson Retail 03/03/23 11/25/23 Ivy Payne Welfare Eligibility InterviewerComputer Salesperson Retail 11/26/23 documented as of this encounter
--- OUTSIDE RECORDS SUMMARY | 2024-06-02 13:35 | XMS_ITS | Encounter Summary ---
Author Organization [employer] [facility] Address [address] [facility] 7t [place] [address] Care Team Providers Care Non Categorical Preschool Teacher Name Role Phone Cristian Chacon MD [...] on filedocumented in this encounter Care Teams Non Categorical Preschool Teacher Relationship Specialty Start Date End Date Cristian Chacon MD [address] [place] [address] PCP - General Internal Medicine 03/17/19 Ivy Payne Data Processing SpecialistSleeve Tailor 03/03/23 11/25/23 Ivy Payne Copy Machine OperatorSleeve Tailor 11/26/23 documented as of this encounter
--- OUTSIDE RECORDS SUMMARY | 2024-06-02 13:35 | XMS_ITS | Encounter Summary ---
Author Organization [employer] [facility] Address [address] [facility] [address]t [place] [address] Care Team Providers Care Crook Operator Name Role Phone Cristian Chacon MD [...] on filedocumented in this encounter Care Teams Crook Operator Relationship Specialty Start Date End Date Cristian Chacon MD [address] [place] [address] PCP - General Internal Medicine 03/17/19 Ivy Payne Body Make Up ArtistHand Tool Lapper 03/03/23 11/25/23 Ivy Payne Plant BuyerHand Tool Lapper 11/26/23 documented as of this encounter
--- OUTSIDE RECORDS SUMMARY | 2024-06-02 13:35 | XMS_ITS | Clinical Summary ---
Author Organization [facility] Address [address] [place] [address] Care Team Providers Care Hog Feeder Name Role Phone Eduarda Villeda MD Primary Care Provider [phone] Medications No known medications Social History Tobacco [...] complete this topic Insurance MEDICAID Care Teams Hog Feeder Relationship Specialty Start Date End Date Eduarda Villeda MD [address] [address] PCP - General Internal Medicine 05/12/18
--- OUTSIDE RECORDS SUMMARY | 2024-06-02 13:36 | XMS_ITS | Encounter Summary ---
Author Organization [employer] Address [address] [facility] 7t [place] [address] Care Team Providers Care Newspaper Carriers Supervisor Name Role Phone Cristian Chacon MD Primary Care Prov ider Reason for Visit * Reason Comments Med Refill Encounter Details Date Type Department Care Team ([facility] Contact Info) Description 02/27/2024 Refill [facility] [address] [place], [place] [phone] Cristian Chacon MD [address] [place] [address] Social History Tobacco Use Types Packs/Day Years [...] documented as of this encounter Care Teams Newspaper Carriers Supervisor Relationship Specialty Start Date End Date Cristian Chacon MD [address] [place] [address] PCP - General Internal Medicine 03/17/19 Ivy Payne Semiconductor Wafers Saw OperatorBrisket Puller 11/26/23 documented as of this encounter
--- OUTSIDE RECORDS SUMMARY | 2024-06-02 13:36 | XMS_ITS | Encounter Summary ---
Author Organization [employer] Address [address] [facility] 7t [place] [address] Care Team Providers Care Scientific Associate Name Role Phone Cristian Chacon MD Primary Care Prov ider Reason for Visit * Reason Onset Date Comments ER Follow-up 03/23/2024 Nurse Triage 03/23/2024 Encounter Details Date Type Department Care Team ([facility] st Contact Info) Description 03/23/2024 Telephone [facility] [address] [place] [address] Cristian Chacon MD [address] [place] [address] ER Follow-up; Nurse Triage Social History Tobacco [...] 11:51 AM EST [place] [id number] Jose Alberto Pt was seen in [facility] ED 03/19/24 , (report is on the [...] is offered an apt this Thursday at [facility] with provider but, requests to only see [...] 03/23/2024 9:50 AM EST Tc from pt child care center assistant director calling to report ED visit on : Date: 03/19 Hospital: [facility] Seen for: Chest pain, Abdominal pain. Symptomatic Yes (Can't walk normally) *if yes message should go to Triage Patient advised will forward to team nurse for follow up [phone] frisian documented in this encounter Plan of Treatment Not on file documented as of this encounter Visit Diagnoses Not on filedocumented in this encounter Additional Health Concerns Assessment Noted Time PHQ-9 Depression Total Score: 16 024 1:19 PM EDT documented as of this encounter Care Teams Scientific Associate Relationship Specialty Start Date End Date Cristian Chacon MD [address] [place] [address] PCP - General Internal Medicine 03/17/19 Ivy Payne Shade MatcherTitle Vehicle Service Attendant 11/26/23 documented as of this encounter
--- OUTSIDE RECORDS SUMMARY | 2024-06-02 13:36 | XMS_ITS | Clinical Summary ---
Author Organization [facility] Address [address] [place] [address] Care Team Providers Care Senior Interactive Producer Name Role Phone Dirk Mcdowell RD Primary Care Provider [phone] Source Comments PLEASE NOTE, if this patient [...] N,PROAIR) 90 mcg/actuation inhalerIndications :Mild persistent asthma (HHS-HCC) Inhale 2 Puffs into the lungs every 4 (four) hours as needed. 1 Inhaler Active fluticasone (FLOVENT HFA) 44 mcg/actuation inhalerIndications :Mild persistent asthma (HHS-HCC) Inhale 2 Puffs into the lungs 2 [...] /3 mL (0.083 %) nebulizer solution Per environmental management specialist 0 5 Active FLOVENT HFA 220 mcg/actuation inhaler Per environmental management specialist 3 5 Active fluticasone (FLONASE) 50 mcg/actuation nasal spray Per environmental management specialist 3 5 Active hydrOXYzine (ATARAX) 25 mg tablet Per environmental management specialist 0 5 Active montelukast (SINGULAIR) 10 mg tablet Per environmental management specialist 3 5 Active terbinafine HCl (LAMISIL) 250 mg tablet Per environmental management specialist 1 5 Active ketoconazole (NIZORAL) 2 % cream Per environmental management specialist 3 5 Active metroNIDAZOLE (METROCREAM) 0.75 % cream Per environmental management specialist 3 5 Active traZODone (DESYREL) 50 mg tablet Per Psych 4 5 Active traMADol (ULTRAM) 50 mg tablet Per [facility] 0 5 Active cromolyn (OPTICROM) 4 % ophthalmic solution Per environmental management specialist 3 5 Active baclofen (LIORESAL) 10 [...] Problem Noted Date Diagnosed Date H/O mammogram 3 at [facility]. Normal. due Gavino h 201505/12/2014 Left ovarian cyst 07/14/2013 Overview (07/14/2013): S/P US PELVIS 07/04/13 DUE PELVIC PAIN. 2.9 X 3.8 X 3 CM LEFT ADNEXAL CYSTIC LESION, MOST LIKELY HEMORRHAGIC OVARIAN CYST. F/U COMMISSIONING SPECIALIST Left carpal tunnel syndrome 06/22/2013 Vitamin D deficiency disease 02/03/2012 Overview (02/01/2013): =17. Allergic rhinitis due to allergen 2008 GERD (gastroesophageal reflux disease) 8 Hypothyroidism 05/13/2007 Overview (09/29/2013): + CARLOS EDUARDO'S THYROIDITIS, ENDO F/U with Dr Mcdowell Anxiety and depression 05/13/2007 Overview (02/01/2013): F/U [facility] (DR. NANCE). Insomnia 05/13/2007 Overview (02/01/2013): F/U AT [facility] (DR. NANCE). Mild persistent asthma ([facility]) 05/13/2007 Chronic neck pain LBP (low back [...] 2013 Annual Preventive Care Visit 06/01/2015 05/31/2014 Lipid Screening 11/25/2015 11/24/2014 TSH Monitoring 03/06/2016 03/06/2015, 11/01, 09/29/2013 Hypertension Screening (#1) 05/15/2016 Imm-Zoster, Recombinant (2 of 2) 06/08/2019 04/13/19 Imm-DTaP/Tdap/Td (2 - Td or Tdap) 10/14/2020 011 Diabetes Screening 06/20/2023 06/19/2022, 0 11/24/2014, 11/24/2014, Additional history exists [id number] ( season) 2023 03/22/2021, 07/22/2020, 07/01/2020 Imm-Influenza (#1) [...] TSH CASCADE 2.25 0.40 - 4.00 uIU/ml [facility] Blood specimen (specimen) Blood / Unknown 03/06/2015 11:48 AM EST 03/06/2015 11:[address] [facility] - 03/07/2015 1:30 PM EST [facility] [address] [place] [address] [place] ID [id number] ORD# [id number] Sophia Blue MD LAB - BLOOD RICH W Final Result [facility] [address] [place] [address], [place] [phone] * (ABNORMAL) LIPID PANEL (11/24/2014 11:00 AM EDT) CHOLESTEROL 166 0 - 200 mg/dL [facility] TRIGLYCERIDES 86 0 - 150 mg/dL [facility] HDL CHOLESTEROL 46 >40 mg/dL [facility] LDL CALCULATED 103(H) 0 - 100 mg/dL [facility] TC-HDLC RATIO 3.6 0 - 4.4 mg/dL [facility] Blood specimen (specimen) Blood / Unknown 11/24/2014 11:00 AM EDT 11/24/2014 11:[address] [facility] - 11/24/2014 12:35 PM EDT [facility] [address] [place] [address] 16376 PT ID [id number] ORD# [id number] Sophia Blue MD LAB - BLOOD RICH W Final Result [facility] [address] [place] [address], [place] [phone] * COMPRE METAB PANEL (11/24/2014 11:00 AM EDT) GLUCOSE 88 70 - 100 mg/dL [facility] Comment:Reference range appl icable to fasting specimens only BUN 22 5 - 25 mg/dL [facility] CREAT 0.67 0.5 - 1.1 mg/dL [facility] GLOMERULAR FILTRATION RATE > 60 [facility] Comment: If patient is -Swedish, multiply result by 1.21 Chronic Kidney Disease: < 60 ml/min/1.73 square meters Kidney Failure: < 15 ml/min/1.73 square meters SODIUM 140 133 - 145 mEq/L [facility] POTASSIUM 4.6 3.5 - 5.5 mEq/L [facility] CHLORIDE 105 96 - 110 mEq/L [facility] CO2 30 21 - 32 mEq/L [facility] ANION GAP 5 3 - 11 [facility] CALCIUM 9.6 8.5 - 10.5 mg/dL [facility] TOTAL PROTEIN 7.5 6.0 - 8.0 G/dL [facility] ALBUMIN 4.5 3.2 - 5.0 G/dL [facility] BILI, TOTAL 0.4 0.0 - 1.4 mg/dL [facility] SGOT 22 10 - 42 U/L [facility] SGPT 18 10 - 60 U/L [facility] ALK PHOS 74 42 - 121 U/L [facility] Blood specimen (specimen) Blood / Unknown 11/24/2014 11:00 AM EDT 11/24/2014 11:06 AM EDT Narrative [facility] - 11/24/2014 12:35 PM EDT [facility] [address] [place] [address] PT ID [id number] ORD# [id number] us Sophia Blue MD LAB - BLOOD DRA De Jesus Final Result [address] [address], * HEPATITIS A,B,C PANEL (09/29/2013 3:21 PM EDT) HEPATITIS B SURFACE ANTIBODY NEGATIVE NEGATIVE [facility] HEPATITIS B SURFACE ANTIGEN NEGATIVE NEGATIVE [facility] HEPATITIS C VIRUS ANTIBODY NEGATIVE NEGATIVE [facility] HEPATITIS A ANTIBODY TOTAL NEGATIVE NEGATIVE [facility] HEPATITIS B CORE ANTIBODY NEGATIVE NEGATIVE [facility] Blood specimen (specimen) Blood / Unknown 09/29/2013 3:21 PM EDT 09/29/2013 4:[address] [facility] - 09/29/2013 9:50 PM EDT [facility] [address] [place] [address] PT ID [id number] ORD# [id number] Sophia Blue MD LAB - BLOOD DRA De Jesus Edited Result - Final [address] [address], [place] [phone] * HIV-1 & HIV-2 ANTIBODIES (09/29/2013 3:21 PM EDT) [facility] HIV 1 AND 2 ANTIBODY SCREEN NEGATIVE NEGATIVE [facility] Blood specimen (specimen) Blood / Unknown 09/29/2013 3:21 PM EDT 09/29/2013 4:[address] [facility] - 09/30/2013 12:03 PM EDT [facility] [address] [place] [address] PT ID [id number] ORD# [id number] Sophia Blue MD LAB - BLOOD DRA De Jesus Final Result [address] [address], [place] [phone] from Last 3 Months or Most Recently Relevant to Health Maintenance Insurance [employer] Care Teams Senior Interactive Producer Relationship Specialty Start Date End Date Dirk Mcdowell [address] [place] [address] PCP - General Nutrition 08/02/15
--- OUTSIDE RECORDS SUMMARY | 2024-06-02 13:36 | XMS_ITS | Encounter Summary ---
Author Organization [facility] Address [address] [place] [address] Care Team Providers Care Histology Teacher Name Role Phone Cristian Chacon MD Primary Care Prov ider Encounter Details Date Type Department Care Team (Late st Contact Info) Description 03/22/2024 Orders Only [facility]EDS [address] [place], [place] [id number] Provider, MD Roderick Social History Tobacco Use [...] documented as of this encounter Care Teams Histology Teacher Relationship Specialty Start Date End Date Cristian Chacon MD [address] [place] [address] PCP - General Internal Medicine 03/17/19 Ivy Payne Fabric Worker ForemanChild Welfare Caseworker 11/26/23 documented as of this encounter
--- OUTSIDE RECORDS SUMMARY | 2024-06-02 13:36 | XMS_ITS | Encounter Summary ---
Author Organization [employer] Address [address] [place] [address] Care Team Providers Care Business Integration Analyst Name Role Phone Cristian Chacon MD Primary Care Prov ider Reason for Visit * Reason Comments Med Refill Encounter Details Date Type Department Care Team ([facility] Contact Info) Description 05/24/2024 Refill [facility] [address] [place] [address] Cristian Chacon MD [address] [place] [address] Primary hypertension Social History Tobacco Use Types Packs/Day Years [...] as of this encounter Visit Diagnoses Diagnosis Primary hypertension Unspecified essential hypertension documented in this encounter Additional Health Concerns Assessment Noted Time PHQ-9 Depression Total Score: 16 024 1:19 PM EDT documented as of this encounter Care Teams Business Integration Analyst Relationship Specialty Start Date End Date Cristian Chacon MD [address] [place] [address] PCP - General Internal Medicine 03/17/19 Ivy Payne Bun Machine OperatorPit Manager 11/26/23 documented as of this encounter
== END 2024-06-02 13:45 | disposition home or self-care (01) ==
LOC: HO.HWS 12:29
PROVIDERS: PCP Internal Medicine; Visit Provider Obstetrics & Gynecology
DX: R10.2 Pelvic and perineal pain (principal); G89.29 Other chronic pain
CPT/HCPCS: 99213

== ENCOUNTER → 2024-06-02 12:29 | Outpatient (BNVA) | payer MEDICAID, SELFPAY | PROVIDERS: PCP Internal Medicine; Visit Provider Obstetrics & Gynecology | DX: R10.2 Pelvic and perineal pain (principal); G89.29 Other chronic pain | CPT/HCPCS: 99212 ==

== ENCOUNTER 2024-07-07 11:59 | Outpatient (AMB) | payer MEDICAID, SELFPAY ==
--- NOTE | 2024-07-07 12:01 | MHC.OFFVIS ---
Vital Signs 07/07/24 12:08 Height 5 ft Weight 197 lb BMI 38.5 BP 108/63 Blood Pressure Location Lt brachial Position Sitting Pulse 90 Pulse Oximetry (%) 97 Oxygen Delivery Method Room Air Intake Visit Reasons: Oral roberto follow up Intake Note: Patient followup for oral roberto follow up. Patient cc: vomiting saliva, abdominal pain with bloating, acid reflux, constipation and some swallowing difficulty. Import Clerk Required: Yes Accompanied by: Self / Same As Patient Allergies duloxetine [From CYMBALTA] Allergy (Unknown, Verified 07/07/24 12:01) UNKNOWN pregabalin [From LYRICA] Allergy (Unknown, Verified 07/07/24 12:01) UNKNOWN meperidine [From DEMEROL] Adverse Reaction (Intermediate, Verified 07/07/24 12:01) N/V oxycodone [From Percocet] Adverse Reaction (Intermediate, Verified 07/07/24 12:01) itching HPI HPI Oral roberto follow up: Details: Assessment & Plan (1) Chronic gastric ulcer: Code(s): K25.7 - Chronic gastric ulcer without hemorrhage or perforation Category: Medical (2) Candidiasis of mouth and esophagus: Code(s): B37.81 - Candidal esophagitis; B37.0 - Candidal stomatitis Category: Medical (3) Nausea and vomiting: Comment: likely r/t her chronic ulcer Code(s): R11.2 - Nausea with vomiting, unspecified Category: Medical (4) GERD (gastroesophageal reflux disease): Code(s): K21.9 - Gastro-esophageal reflux disease without esophagitis Category: Medical (5) Dysphagia: Comment: Improved with dilation after EGD aeb Code(s): R13.10 - Dysphagia, unspecified Category: Medical (6) Chronic idiopathic constipation: Code(s): K59.04 - Chronic idiopathic constipation Category: Medical Plan [place] #tACHIRA liVE She confirms that she DOES have diabetes, (her A1c was elevated when I checked it out because of all of the concerns and the physical exam findings seem to point to diabetes) but says it was found on my chimney builder blood work but you were the first one to mention this as a possibility. She will be started on Mounjaro soon. She is awaiting insurance approval. (her knot tying operator is in [place]). She is compliant with her pantoprazole qam and famotidne qhs, but with investigation she will take naproxen anywhere from 2-3 times a week depending on her FMS pain levels. She may need bid PPI r/t this to protect her stomach. She was changed to generic Nexium by Dr. Gan, but I will try to get BID dosing. She also has chronic prednisone therapy that effects both her gastric mucosa and her BS. Her swallowing was improved with the dilatation and she is happy with this. She tried to collect the COloguard but she urinated as well and she thought this invalidated it so she threw it away. Will reorder. She never received the diflucan but still has white stuff on my tongue, she was given a nystatin swish but this has not helped. I will resend the Diflucan. This likely is a part of her chronic prednisone therapy along with the higher blood sugars. She continues on her dicyclomine 10 mg 3 times a day, and a magnesium supplement twice a day and is on amitriptyline for other next avail. Medications: New fluconazole (Diflucan) 200 mg PO DAILY 10 tabs 0RF 10 days B37.0 - Candidal stomatitis, B37.81 - Candidal esophagitis Changed From esomeprazole magnesium 40 mg PO DAILY 90 caps 1RF K25.7 - Chronic gastric ulcer without hemorrhage or perforation To esomeprazole magnesium 40 mg PO BID 180 caps 1RF K25.7 - Chronic gastric ulcer without hemorrhage or perforation Refilled dicyclomine 10 mg PO TID 90 caps 6RF K22.4 - Dyskinesia of esophagus Discontinued famotidine Discontinued Reason: Doctor's Order 40 mg PO BID 180 tabs 2RF K27.9 - Peptic ulcer, site unspecified, unspecified as acute or chronic, without hemorrhage or perforation fluconazole (Diflucan) Discontinued Reason: Doctor's Order 100 mg PO DAILY 7 days 7 tabs 0RF B37.0 - Candidal stomatitis, B37.81 - Candidal esophagitis TODAY'S VISIT [place] #Jemima Anshu (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 She says that her insurance is not approving her diabetes injection, so she is vomiting saliva. (I am unsure that this is actually a cause and effect connection but it isn't her mind) She has a choking sensation and when she bends down she feels like she is getting punched in the stomach. She feels like she has vomit in the am. She even spent $300 [address] supplement [address] Dr[address] Harsha Noe for her sx but this did not work. (take naproxen anywhere from 2-3 times a week depending on her FMS pain levels) She is having early satiety as well. She can not eat eggs for GES, but agrees to try it with ensure. Since she IS diabetic gastroparesis is strong in the ddx. She also has been stealing her husbands o2o as she has not been getting what we rx'ed from the pharmacy. I re send this and will have my staff check in to this. She is having dysphagia again and requests a repeat EGD to dilate the esophagus. This has been worsening over the past month. She confirms that she is taking esomeprazole twice a day. Start a trial of reglan 5mg qid. She is tearful about her whose pancreatic cancer has spread to his vocal cords. Naturally, this is stressful for her and could be contributing to her symptom presentation as well. ROV next available [facility] Medical History (Updated 07/07/24 @ 15:20 by JOCELYN Leung) Pre-op examination Chronic idiopathic constipation Colon cancer screening Hemifacial spasm Abdominal pain Pelvic pain in female Bilateral shoulder pain Vulvar irritation WISE (nonalcoholic steatohepatitis) Elevated antinuclear antibody (FELI) level FELI positive Encounter to discuss test results Hemifacial spasm of left side of face Peptic ulcer disease Esophageal spasm Family history of cerebral aneurysm Fibromyalgia Irritable bowel syndrome with both constipation and diarrhea History of meningitis Surgical History History of esophagogastroduodenoscopy (EGD) Keloid of skin H/O neck surgery Hx of section Hx of hysterectomy Hx of breast lump removal (~2019) History of bladder suspension procedure H/O bilateral breast reduction surgery Family History Mother Aneurysm Endometrial cancer Father No problems noted. Social History Alcohol intake: never Patient Tobacco Use Status: Never used Tobacco Sexual orientation: Straight/Heterosexual Gender identity: Female Review of Systems Const Denies fatigue, Denies fever(s), Reports headache(s), Denies night sweats, Denies poor appetite and Denies weight loss ENT Reports Normal hearing present, Denies dental pain, Denies dysphagia, Reports headache(s), Denies hearing loss, Denies mouth pain, Reports neck pain, Denies odynophagia, Denies throat swelling, Denies tongue swelling and Reports other (Dentition adequate) Card Reports chest pain Resp Reports no additional complaints GI Details: Reports abdominal pain, Denies melena, Reports bloating, Denies hematochezia, Denies constipation, Denies GI cramping, Denies dysphagia, Denies excessive flatus, Reports early satiety, Reports heartburn, Denies diarrhea, Reports nausea, Denies odynophagia, Reports vomiting and Denies hematemesis Musc Reports back pain, Reports myalgias, Reports arthralgias, Reports neck pain and Reports stiffness Skin/Breast Denies pruritus, Denies lesions, Denies rash and Denies jaundice Neuro Reports Normal hearing present, Denies Abnormal speech present and Reports headache(s) Psych Reports anxiety, Denies homicidal ideation and Denies suicidal ideation Endo Denies fatigue Aller/Immun Denies throat swelling and Denies tongue swelling Physical Exam Vital Signs: Last Vital Signs Pulse 90 07/07/24 12:08 BP 108/63 07/07/24 12:08 Pulse Ox 97 07/07/24 12:08 Oxygen Delivery Method Room Air 07/07/24 12:08 BMI result Body Mass Index 38.5 Const General: cooperative, no acute distress, well developed and well groomed Nutritional Appearance: well nourished and obese Orientation/consciousness: oriented to person, oriented to place and oriented to time Limitations: behavioral limitations (Extremely emotional) and language barrier HEENT Head: Yes normocephalic and Yes atraumatic Eyes General: appearance normal, both eyes and all related structures Pupils: Equal, round and reactive pupils present Neck Neck: Yes normal visual inspection and Yes no lymphadenopathy Thyroid: Thyroid normal Resp Effort & Inspection: normal respiratory effort and able to speak in complete sentences Auscultation: clear to auscultation bilaterally Cardio Rate: regular rate Rhythm: regular rhythm Heart sounds: Normal, physiologic split S2 sound present Peripheral pulses: radial pulses present and posterior tibial pulses present GI Inspection: No distended, Yes Abdominal panniculus present and Yes obesity Palpation (GI): Soft to palpation, nontender, no guarding, not rigid and No hepatosplenomegaly present Percussion: Yes normal to percussion Auscultation: normal bowel sounds Rectal Exam - Female: deferred Skin General skin exam: no rashes or lesions noted, turgor normal, skin not dry, no jaundice, No spider nevi and no striae Rashes: no rashes Nails: normal Neuro General: oriented to person, oriented to place and oriented to time Cranial nerves: Yes Equal, round and reactive pupils present and Yes Normal hearing present Speech: No Abnormal speech present Extrem General: Yes normal to inspection, No clubbing, No cyanosis and No edema Psych Appearance: grossly normal and well kempt Mental Status: mental status grossly normal Speech and movement: Psychomotor agitation in speech present Affect: Labile affect present, Anxious affect present and Irritable affect present Attitude: cooperative Thought process: Circumstantial thought process present, not confabulating, Perseverating thought process present and Racing thoughts present Thought content: Normal thought content present Insight: Poor insight present (Psych) Judgement: Poor judgement present (Psych) Results Reviewed Results Reviewed: Laboratory Tests 05/03/24 05/18/24 11:04 09:59 WBC 8.1 Hgb 11.9 L Hct 35.8 L MCV 88.0 MCH 29.2 Plt Count 339 Estimated GFR > 60 Assessment & Plan Assessment & Plan (1) Erosive esophagitis: Code(s): K22.10 - Ulcer of esophagus without bleeding Category: Medical (2) Chronic gastric ulcer: Code(s): K25.7 - Chronic gastric ulcer without hemorrhage or perforation Category: Medical (3) Dysphagia: Comment: Improved with dilation after EGD aeb Code(s): R13.10 - Dysphagia, unspecified Category: Medical (4) GERD (gastroesophageal reflux disease): Code(s): K21.9 - Gastro-esophageal reflux disease without esophagitis Category: Medical (5) Nausea and vomiting: Comment: likely r/t her chronic ulcer Code(s): R11.2 - Nausea with vomiting, unspecified Category: Medical (6) Diabetes: Code(s): E11.9 - Type 2 diabetes mellitus without complications Category: Medical (7) Abdominal pain: Code(s): R10.9 - Unspecified abdominal pain Category: Medical (8) Pre-op examination: Code(s): Z01.818 - Encounter for other preprocedural examination Category: Medical Plan [place] #Jemima Brasher (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 She says that her insurance is not approving her diabetes injection, so she is vomiting saliva. (I am unsure that this is actually a cause and effect connection but it isn't her mind) She has a choking sensation and when she bends down she feels like she is getting punched in the stomach. She feels like she has vomit in the am. She even spent $300 on a supplement from Dr[address] Harsha Noe for her sx but this did not work. (take naproxen anywhere from 2-3 times a week depending on her FMS pain levels) She is having early satiety as well. She can not eat eggs for GES, but agrees to try it with ensure. Since she IS diabetic gastroparesis is strong in the ddx. She also has been stealing her husbands o2o as she has not been getting what we rx'ed from the pharmacy. I re send this and will have my staff check in to this. She is having dysphagia again and requests a repeat EGD to dilate the esophagus. This has been worsening over the past month. She confirms that she is taking esomeprazole twice a day. She has a recent new diagnosis of bronchial asthma and denies any severe cardiac problems besides palpitations. There are no prior problems with anesthesia or sedation. There are no infectious disease problems known. Start a trial of reglan 5mg qid. She is tearful about her whose pancreatic cancer has spread to his vocal cords. Naturally, this is stressful for her and could be contributing to her symptom presentation as well. ROV next available Orders: Orders Comprehensive Met. Panel Today Z01.818 - Encounter for other preprocedural examination NM gastric emptying study Today E11.9 - Type 2 diabetes mellitus without complications, R11.2 - Nausea with vomiting, unspecified Medications: New metoclopramide HCl (Reglan) 5 mg PO QID 120 tabs 6RF R11.2 - Nausea with vomiting, unspecified Refilled omeprazole 40 mg PO BID 30 days 180 caps 1RF K22.10 - Ulcer of esophagus without bleeding, K25.7 - Chronic gastric ulcer without hemorrhage or perforation, K29.60 - Other gastritis without bleeding, R11.2 - Nausea with vomiting, unspecified Coding Level of Care Code Est Pt Level 4 (92888) Diagnoses Erosive esophagitis K22.10 Chronic gastric ulcer K25.7 Dysphagia R13.10 GERD (gastroesophageal reflux disease) K21.9 Nausea and vomiting R11.2 Diabetes E11.9 Abdominal pain R10.9 Pre-op examination Z01.818 Time Spent (min) 38
[2024-07-07 12:08] VITALS: BP 108/63; PULSE 90; O2SAT 97; BMI 38.5
--- OUTSIDE RECORDS SUMMARY | 2024-07-07 13:27 | XMS_ITS | Encounter Summary ---
Author Organization [employer] Address [address] [place] [address] Care Team Providers Care Lumber Tallier Name Role Phone Cristian Chacon MD Primary Care Prov ider Encounter Details Date Type Department Care Team ([facility] st Contact Info) Description 12/22/2023 Orders Only [facility] MED [facility] PEDS [address] [place], [place] [phone] Cristian Chacon MD [address] [place] [address] Social History Tobacco Use Types Packs/Day Years [...] documented as of this encounter Care Teams Lumber Tallier Relationship Specialty Start Date End Date Cristian Chacon MD [address] [place] [id number] PCP - General Internal Medicine 03/17/19 Ivy Payne Real Estate Legal SecretaryCar Worker Helper 11/26/23 documented as of this encounter
--- OUTSIDE RECORDS SUMMARY | 2024-07-07 13:27 | XMS_ITS | Encounter Summary ---
Author Organization [employer] Address 75 [facility] 7t [place] [address] Care Team Providers Care Brick Wheeler Name Role Phone Cristian Chacon MD Primary Care Prov ider Encounter Details Date Type Department Care Team ([facility] st Contact Info) Description 08/25/2023 Telephone [facility] CHC MED & PEDS [address] [place], [place] [phone] Cristian Chacon MD 505 [place] [address] Social History Tobacco Use Types Packs/Day Years [...] as of this encounter Care Teams Brick Wheeler Relationship Specialty Start Date End Date Cristian Chacon MD [address] [place] [address] PCP - General Internal Medicine 03/17/19 Ivy Payne Global Compensation ManagerVp Data 03/03/23 11/25/23 Ivy Payne Bark SpudderVp Data 11/26/23 documented as of this encounter
--- OUTSIDE RECORDS SUMMARY | 2024-07-07 13:27 | XMS_ITS | Encounter Summary ---
Author Organization [employer] Address 75 [facility] 7t [place] [address] Care Team Providers Care Supervisor Throwing Department Name Role Phone Cristian Chacon MD Primary Care Prov ider Encounter Details Date Type Department Care Team ([facility] Contact Info) Description 11/19/2023 Orders Only [facility] Information Management [address] [place] [address] ProviderRoderick MD Social History Tobacco Use Types Packs/Day Years [...] as of this encounter Care Teams Supervisor Throwing Department Relationship Specialty Start Date End Date Cristian Chacon MD [address] [place] [address] PCP - General Internal Medicine 03/17/19 Ivy Payne Raw Mill OperatorIron Carrier 03/03/23 11/25/23 Ivy Payne Vp OutcomesIron Carrier 11/26/23 documented as of this encounter
--- OUTSIDE RECORDS SUMMARY | 2024-07-07 13:27 | XMS_ITS | Encounter Summary ---
Author Organization [employer] Address [address] [facility] [address] 7t [place] [address] Care Team Providers Care Environmental Sustainability Manager Name Role Phone Cristian Chacon MD Primary Care Prov ider Encounter Details Date Type Department Care Team ([facility] st Contact Info) Description 09/04/2023 Orders Only [facility] CHC MED & PEDS [address] [place], [place] [phone] Cristian Chacon MD 505 [place] [address] Social History Tobacco Use Types Packs/Day Years [...] documented as of this encounter Care Teams Environmental Sustainability Manager Relationship Specialty Start Date End Date Cristian Chacon MD [address] [place] [phone] PCP - General Internal Medicine 03/17/19 Ivy Payne Collections SpecialistSenior Electrical Design Engineer 03/03/23 11/25/23 Ivy Payne Dressmaking TeacherSenior Electrical Design Engineer 11/26/23 documented as of this encounter
--- OUTSIDE RECORDS SUMMARY | 2024-07-07 13:27 | XMS_ITS | Encounter Summary ---
Author Organization [employer] Address [address] [facility] [address] [address] 7t [place] [address] Care Team Providers Care Duplicate Maker Name Role Phone Cristian Chacon MD Primary Care Prov ider Encounter Details Date Type Department Care Team (Late st Contact Info) Description 07/01/2024 Orders Only [facility] CHC MED & PEDS [address] [place] [address] Provider, MD Roderick Social History Tobacco Use [...] t he electric, gas, oil or water Element Power threatened to shut off services in your [...] Date/Time Associated Diagnosis Comments ECG 12-LEAD Routine 06/30/2024 10:02 AM EDT documented in this encounter Results * ECG 12 lead (06/30/2024 10:02 AM EDT) us Historical Provider ECG ORDERABLES Final Res ult documented in this encounter Visit Diagnoses Not on filedocumented in this encounter Additional Health Concerns Assessment Noted Time PHQ-9 Depression Total Score: 16 024 1:19 PM EDT documented as of this encounter Care Teams Duplicate Maker Relationship Specialty Start Date End Date Cristian Chacon MD [address] [place] [phone] PCP - General Internal Medicine 03/17/19 Ivy Payne Ged TutorRehab Physician 11/26/23 documented as of this encounter
--- OUTSIDE RECORDS SUMMARY | 2024-07-07 13:27 | XMS_ITS | Encounter Summary ---
Author Organization [employer] Address 75 [facility] 7t [place] [address] Care Team Providers Care Telegraph Installer Name Role Phone Cristian Chacon MD Primary Care Prov ider Encounter Details Date Type Department Care Team ([facility] Contact Info) Description 01/11/2024 Orders Only [facility] [address] [place] [address] ProviderRoderick MD Social History Tobacco Use Types [...] documented as of this encounter Care Teams Telegraph Installer Relationship Specialty Start Date End Date Cristian Chacon MD [address] [place] [address] PCP - General Internal Medicine 03/17/19 Ivy Payne Rubber Stamp Die InspectorProtective Officer 11/26/23 documented as of this encounter
--- OUTSIDE RECORDS SUMMARY | 2024-07-07 13:27 | XMS_ITS | Encounter Summary ---
Author Organization [employer] Address 75 [facility] 7t [place] [address] Care Team Providers Care Statement Processor Name Role Phone Cristian Chacon MD Primary Care Prov ider Reason for Visit * Reason Onset Date Comments Nurse Triage 08/24/2023 Encounter Details Date Type Department Care Team ([facility] st Contact Info) Description 08/24/2023 Telephone C CHC MED & PEDS 505 [place] [address] Cristian Chacon MD 505 [place] [address] Nurse Triage Social History Tobacco Use Types [...] 08/24/2023 10:26 AM EDT Triage call with [employer] [place] [id number] Pt reports rash has developed on upper, inner thighs and has spread to private area . Pt describesrash as red, bumpy and itchy. Pt reports some irritation vaginally and burning with urination. Burning is described as occurring when urine contacts rash but, may have other urinary symptoms as well.This is not clear to triage nurse. Advised Pt to come to [facility] today at 230pm. Pt agrees with [...] accepted this outcome Please contact pt at [phone] (inpatient auditor) documented in this encounter Plan of Treatment Not on file documented as of this encounter Visit Diagnoses Not on filedocumented in this encounter Additional Health Concerns Assessment Noted Time PHQ-9 Depression Total Score: 14 024 9:49 AM EST documented as of this encounter Care Teams Statement Processor Relationship Specialty Start Date End Date Cristian Chacon MD [address] [place] [phone] PCP - General Internal Medicine 03/17/19 Ivy Payne Sample DistributorHealth Researcher 03/03/23 11/25/23 Ivy Payne Health Care SpecialistHealth Researcher 11/26/23 documented as of this encounter
--- OUTSIDE RECORDS SUMMARY | 2024-07-07 13:27 | XMS_ITS | Encounter Summary ---
Author Organization [employer] Address 75 [facility] 7t [place] [address] Care Team Providers Care Metal Sorter Name Role Phone Cristian Chacon MD Primary Care Prov ider Encounter Details Date Type Department Care Team ([facility] Contact Info) Description 06/30/2024 Orders Only [facility] Information [facility] [address] [place], [place] [phone] ProviderRoderick MD Social History Tobacco Use Types [...] Procedure Name Priority Date/Time Associated Diagnosis Comments XR CHEST 2 VIEWS Routine 06/30/2024 3:30 PM EDT documented in this encounter Results * XR Chest 2 Views (06/30/2024 3:30 PM EDT) Anatomical Region Laterality Modality Chest Radiographic Amanda ging Historical Provider IMJoshua XR PROCEDURES Final R esult documented in this encounter Visit Diagnoses Not on filedocumented in this encounter Additional Health Concerns Assessment Noted Time PHQ-9 Depression Total Score: 16 024 1:19 PM EDT documented as of this encounter Care Teams Metal Sorter Relationship Specialty Start Date End Date Cristian Chacon MD [address] [place] [phone] PCP - General Internal Medicine 03/17/19 Ivy Payne Outsole FlexerOutdoor Illuminating Engineer 11/26/23 documented as of this encounter
--- OUTSIDE RECORDS SUMMARY | 2024-07-07 13:27 | XMS_ITS | Encounter Summary ---
Author Organization [employer] Address 75 [facility] 7t [place] [address] Care Team Providers Care Director Of Procurement Name Role Phone Cristian Chacon MD Primary Care Prov ider Reason for Visit * Reason Comments ER Follow-up Encounter Details Date Type Department Care Team ([facility] Contact Info) Description 07/05/2024 3:45 PM EDT Office Visit [facility] CHC MED & PEDS [address] [place] [address] Eduarda Villeda MD 505 [place] [address] Other headache syndrome (Primary Dx); Chronic neck pain; Bee sting allergy; Type 2 diabetes mellitus without complication, without long-term current use of insulin ([facility]); Nausea; Dizziness Social History Tobacco Use Types Packs/Day Years Used Date Smoking Tobacco: Never Passive Smoke Exposure: Never Smokeless Tobacco: Never Depression Answer Date Recorded Patient Health Questionnaire-9 Score 16 12/22/2023 Patient Health Questionnaire-9 Score 16 12/22/2023 Last PHQ-9: Questionnaire Data Not on file 1 Housing Stability Answer Date Recorded What is your housing situation today? I have lily leandro 05/13/[address] you li [...] Sign Reading Time Taken Comments Blood Pressure 146/90 07/05/2024 3:55 PM EDT Pulse 76 07/05/2024 3:55 PM EDT Temperature - - Respiratory Rate - - Oxygen Saturation 97% 07/05/2024 3:55 PM EDT Inhaled Oxygen Concentration - - Weight - - Height - - Body Mass Index - - documented in this encounter Progress Notes * Eduarda Villeda MD - 07/05/2024 3:45 PM EDT SUBJECTIVE Scarlett Liriano is a 53 y.o. female who presents for ER Follow-up. ER Follow-up Associated symptoms include arthralgias, fatigue, headaches, myalgias and neck pain. Pertinent negatives include no chills or coughing. ED evaluation on 07/05 for Headache and multiple other complaints including, b/l shoulder pain, left ear pain, tongue pain, low back pain, abdominal pain, poor appetite. The pain is located to the leftside of the head and neck. The headache is alleviated by Botox injection received at her neurologist office. Denies any new symptoms today. No blurry vision. Pt is also requesting to get multiple refills on her medication. 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 30 capsule0 Blood Glucose Monitoring Suppl (FreeStyle Lite) w/Device kit 1 Device Once per day. 1 kit 0 Blood Pressure kit To [...] DOS VECES AL COLIN 60 tablet 0 fluticasone-salmeterol (Advair HFA) 230-21 MCG/ACT inhaler Inhale 2 puffs in the morning and at bedtime. 12 g 11 folic acid (Folvite) 1 MG tablet TOME ОЛЕГ TABLETA JODIE LOS D FREESTYLE LITE test strip Use to test blood sugar 1 times daily 100 each 12 furosemide (Lasix) 20 MG tablet Take 1 [...] OR DIRECTED BY MD 30 patch 2 loratadine (Claritin) 10 MG tablet Take 1 tablet (10 mg) by mouth in the morning. 30 tablet 11 LORazepam (Ativan) 0.5 MG tablet Take 0.5 mg by mouth. losartan (Cozaar) 25 MG tablet TOME 1 TABLETA POR VIA ORAL TODOS LOS HARRIS EN LA MANANA 90 tablet 3 magnesium oxide (Mag-Ox) 400 MG tablet TOME ОЛЕГ TABLETA POR V A ORAL TODOS LOS D miconazole (Micatin) 2 % cream Apply topically 2 times daily. Apply to affected area in groin 56 g 1 montelukast (Singulair) 10 MG tablet Take 1 tablet (10 mg) by mouth in the morning. 30 tablet 5 pantoprazole (ProtoNix) 40 MG EC tablet TOME ОЛЕГ TABLETA TODOS LOS D selenium sulfide (Selsun) 2.5 % [...] ACOSTARSE CUANDO SEA NECESARIO PARA DORMIR [DISCONTINUED] EPINEPHrine (Epipen-JR) 0.15 MG/0.3ML injection syringe Inject 0.6 mL (0.3 mg) as directed 1 (one) time for 1 dose. use as directed for allergic reaction and then call 911 1 each 0 [DISCONTINUED] loratadine (Claritin) 10 MG tablet Take 10 mg by mouth. [DISCONTINUED] meclizine (Antivert) 25 MG tablet Take 1 tablet (25 mg) by mouth every 8 (eight) hours if needed for dizziness. 30 tablet 3 [DISCONTINUED] naproxen (Naprosyn) 500 MG tablet TAKE 1 TABLET (500 MG) BY MOUTH IN THE MORNING ANDAT BEDTIME FOR MODERATE PAIN NEEDED 60 tablet 0 [DISCONTINUED] ondansetron ODT (Zofran-ODT) 4 MG disintegrating tablet DISUELVA ОЛЕГ TABLETA POR V AORAL CADA SEIS HORAS CUANDO SEA NECESARIO FOR NAUSEA 30 tablet 0 No current facility-administered medications on file prior to visit. Review of Systems Constitutional: Positive for fatigue. Negative for appetite change and chills. Respiratory: Negative for cough and choking. Musculoskeletal: Positive for arthralgias, back pain, myalgias, neck pain and neck stiffness. Neurological: Positive for headaches. OBJECTIVE Vitals: 07/05/24 1555 BP: (!) 146/90 BP Location: Right arm Patient Position: Sitting BP Cuff Size: Adult long Pulse: 76 SpO2: 97% Physical Exam Constitutional: General: She is not in acute distress. Appearance: Normal appearance. She is obese. She is not ill-appearing, toxic- appearing or diaphoretic. Cardiovascular: Rate and Rhythm: Normal rate. Pulmonary: Effort: Pulmonary effort is normal. Abdominal: Palpations: Abdomen is soft. Musculoskeletal: Cervical back: Tenderness present. No rigidity. Lymphadenopathy: Cervical: No cervical adenopathy. Neurological: General: No focal deficit present. Mental Status: She is alert. Assessment/Plan Assessment/Plan Diagnoses and all orders for this visit: Other headache syndrome Comments: follow up w/ neurology. Orders: - naproxen (Naprosyn) 500 MG tablet; Take 1 tablet (500 mg) by mouth with breakfast and with evening meal. Chronic neck pain Comments: Moist heat Gentle stretching exercises Naproxen as directed follow up w/ PCP. Bee sting allergy - EPINEPHrine (Epipen-JR) 0.15 MG/0.3ML injection syringe; Inject 0.6 mL (0.3 mg) as directed 1 (one) time for 1 dose. use as directed for allergic reaction and then call 911 Type 2 diabetes mellitus without complication, without long-term current use of insulin ([facility]) - POCT Glucose Nausea - ondansetron ODT (Zofran-ODT) 4 MG disintegrating tablet; DISUELVA ОЛЕГ TABLETA POR V A ORAL CADA SEIS HORAS CUANDO SEA NECESARIO FOR NAUSEA Dizziness - meclizine (Antivert) 25 MG tablet; Take 1 tablet (25 mg) by mouth every 8 (eight) hours if neededfor dizziness. All requested refills sent. documented in this encounter Plan of Treatment Scheduled Orders Name Type Priority Associated Diagnoses Orde r Schedule POCT Glucose Point of Care Testing Routine Type 2 diabetes mellitus without complication, without long-term current use of insulin ([facility]) Ordered: 07/05/2024 documented as of this encounter Visit Diagnoses Diagnosis Other headache syndrome- Primary Chronic neck pain Cervicalgia Bee sting allergy Type 2 diabetes mellitus without complication, without long-term current use of insulin ([facility]) Nausea Nausea alone Dizziness Dizziness and giddiness documented in this encounter Additional Health Concerns Assessment Noted Time PHQ-9 Depression Total Score: 16 12/21/ 024 1:19 PM EDT documented as of this encounter Care Teams Director Of Procurement Relationship Specialty Start Date End Date Cristian Chacon MD [address] [place] [id number] PCP - General Internal Medicine 03/17/19 Ivy Payne Dry Box TenderQuality Assurance Qa Lab Analyst 11/26/23 documented as of this encounter
--- OUTSIDE RECORDS SUMMARY | 2024-07-07 13:27 | XMS_ITS | Encounter Summary ---
Author Organization [employer] Address 75 [facility] 7t [place] [address] Care Team Providers Care Animal Control Licensing Worker Name Role Phone Cristian Chacon MD Primary Care Prov ider Reason for Visit * Reason Comments Med Change Request Encounter Details Date Type Department Care Team ([facility] Contact Info) Description 07/05/2024 Refill [facility] CHC MED & PEDS [address] [place], [place] [phone] Eduarda Villeda MD 505 [place] [address] Bee sting allergy Social History Tobacco Use Types Packs/Day Years [...] as of this encounter Visit Diagnoses Diagnosis Bee sting allergy documented in this encounter Additional Health Concerns Assessment Noted Time PHQ-9 Depression Total Score: 16 024 1:19 PM EDT documented as of this encounter Care Teams Animal Control Licensing Worker Relationship Specialty Start Date End Date Cristian Chacon MD [address] [place] [address] PCP - General Internal Medicine 03/17/19 Ivy Payne Gas Line RepairerHydrate Control Tender 11/26/23 documented as of this encounter
--- OUTSIDE RECORDS SUMMARY | 2024-07-07 13:27 | XMS_ITS | Encounter Summary ---
Author Organization [employer] Address [address] [facility] 7t [place] [address] Care Team Providers Care Grounds Worker Name Role Phone Cristian Chacon MD Primary Care Prov ider Reason for Visit * Reason Comments Med Change Request Encounter Details Date Type Department Care Team ([facility] Contact Info) Description 08/31/2023 Refill [facility] CHC MED & PEDS [address] [place], [place] [phone] Cristian Chacon MD 505 [place] [address] Social History Tobacco Use Types Packs/Day Years [...] documented as of this encounter Care Teams Grounds Worker Relationship Specialty Start Date End Date Cristian Chacon MD [address] [place] [address] PCP - General Internal Medicine 03/17/19 Ivy Payne Residential Construction InstructorIndian Trader 03/03/23 11/25/23 Ivy Payne Tetryl Screen OperatorIndian Trader 11/26/23 documented as of this encounter
--- OUTSIDE RECORDS SUMMARY | 2024-07-07 13:27 | XMS_ITS | Encounter Summary ---
Author Organization [employer] Address [address] [facility] [address] 7t [place] [address] Care Team Providers Care Millstone Cleaner Name Role Phone Cristian Chacon MD Primary Care Prov ider Encounter Details Date Type Department Care Team (Latest Contact Info) Description 07/05/2024 Travel Social History Tobacco Use Types Packs/Day [...] documented as of this encounter Care Teams Millstone Cleaner Relationship Specialty Start Date End Date Cristian Chacon MD [address] [place] [id number] PCP - General Internal Medicine 03/17/19 Ivy Payne Barrel CoaterLoss Prevention Representative 11/26/23 documented as of this encounter
--- OUTSIDE RECORDS SUMMARY | 2024-07-07 13:28 | XMS_ITS | Clinical Summary ---
Author Organization [employer] [facility] Address [address] [place] [address] Care Team Providers Care Field Geologist Name Role Phone Eduarda Villeda MD Primary Care Provider [phone] Medications No known medications Social History Tobacco [...] complete this topic Insurance MEDICAID Care Teams Field Geologist Relationship Specialty Start Date End Date Eduarda Villeda MD [address] [address] PCP - General Internal Medicine 05/12/18
--- OUTSIDE RECORDS SUMMARY | 2024-07-07 13:28 | XMS_ITS | Encounter Summary ---
Author Organization [employer] Address 75 [facility] 7t [place] [address] Care Team Providers Care Chainstitch Elastic Attacher Name Role Phone Cristian Chacon MD Primary Care Prov ider Reason for Visit * Reason Onset Date Comments Nurse Triage 11/18/2022 Encounter Details Date Type Department Care Team ([facility] st Contact Info) Description 11/18/2022 Telephone C [facility] MED & PEDS [address] [place] [address] Cristian Chacon MD 505 [place] [address] Nurse Triage Social History Tobacco Use Types [...] accepted this outcome Please contact pt at [phone] Greek Speaker documented in this encounter Plan of Treatment Not on file documented as of this encounter Visit Diagnoses Not on filedocumented in this encounter Care Teams Chainstitch Elastic Attacher Relationship Specialty Start Date End Date Cristian Chacon MD [address] [place] [address] PCP - General Internal Medicine 03/17/19 Ivy Payne Airline Reservation AgentService Aide 03/03/23 11/25/23 Ivy Payne Medical ReviewerService Aide 11/26/23 documented as of this encounter
--- OUTSIDE RECORDS SUMMARY | 2024-07-07 13:28 | XMS_ITS | Encounter Summary ---
Author Organization [employer] Address 75 [facility] 7 [place] [address] Care Team Providers Care Clay Structure Builder And Servicer Name Role Phone Cristian Chacon MD Primary Care Prov ider Reason for Visit * Reason Onset Date Comments New med script 04/01/2022 Encounter Details Date Type Department Care Team ([facility] st Contact Info) Description 04/01/2022 Telephone [facility] MED & PEDS [address] [place] [address] Cristian Chacon MD 505 [place] [address] New med script Social History Tobacco Use [...] on filedocumented in this encounter Care Teams Clay Structure Builder And Servicer Relationship Specialty Start Date End Date Cristian Chacon MD [address] [place] [address] PCP - General Internal Medicine 03/17/19 Ivy Payne Cake DecoratorSenior Instrumentation Engineer 03/03/23 11/25/23 Ivy Payne Instrumentation TechnicianSenior Instrumentation Engineer 11/26/23 documented as of this encounter
--- OUTSIDE RECORDS SUMMARY | 2024-07-07 13:28 | XMS_ITS | Encounter Summary ---
Author Organization [employer] Address [address] [facility] 7t [place] [address] Care Team Providers Care Annual Giving Director Name Role Phone Cristian Chacon MD Primary Care Prov ider Encounter Details Date Type Department Care Team (Latest Contact Info) Description 04/12/2019 Abstract [facility] CONVERSIONS Dental, Provider, DDS Social History Tobacco [...] on filedocumented in this encounter Care Teams Annual Giving Director Relationship Specialty Start Date End Date Cristian Chacon MD [address] [place] [address] PCP - General Internal Medicine 03/17/19 Ivy Payne Repairing CalibratorCheese Processor 03/03/23 11/25/23 Ivy Payne Manager TransmissionCheese Processor 11/26/23 documented as of this encounter
--- OUTSIDE RECORDS SUMMARY | 2024-07-07 13:28 | XMS_ITS | Encounter Summary ---
Author Organization [facility] Address [address] [place] [address] Care Team Providers Care Visual Display Associate Name Role Phone Cristian Chacon MD Primary Care Prov ider Reason for Visit * Reason Onset Date Comments Rosacea 08/09/2021 Pt is calling to schedule a new pt apt for rosacea. Please call pt at [phone] Encounter Details Date Type Department Care Team ([facility] Contact Info) Description 08/09/2021 Telephone [facility] Central Scheduling Department [address] [place] [phone] Telephone Intake, Staff Cash (Pt is calling to schedule a new pt apt for rosacea. Please call pt at [phone]) Social History Tobacco Use Types Packs/Day Years [...] 10:51 AM EDT Documentation purpose. lvm at [id number]. Pt is calling to schedule a new pt apt for rosacea. Please call pt at [phone] documented in this encounter Plan of Treatment Upcoming Encounters Date Type Department Care Team ([facility] Contact Info) Description 07/20/2024 1:40 PM EDT Follow-Up [facility] [address] [place] [address] 505[address] Engine Assembly Supervisor: Alonzo Baez MD [address] [place] [address] 710[address] 08/02/2024 1:30 PM EDT Follow-Up [facility] [address] [place] [address] 33906 Engine Assembly Supervisor: Morales Ramsey MD [address] [place] [phone] 08/16/2024 2:00 PM EDT Office Visit [facility] [address] [place] [address] 23783 Engine Assembly Supervisor: Dennis Laguna MD [address] [place] [address] [phone] Scheduled Procedures Name Priority Associated Diagnoses Date/Ti me ARTHROSCOPY, SHOULDER, WITH ROTATOR CUFF REPAIR Chronic left shoulder pain ARTHROSCOPY, SHOULDER, DEBRI RONAL, EXTENSIVE Chronic left shoulder pain ARTHROSCOPY, SHOULDER, BICEP S TENODESIS Chronic left shoulder pain documented as of this encounter Visit Diagnoses Not on filedocumented in this encounter Care Teams Visual Display Associate Relationship Specialty Start Date End Date Cristian Chacon MD [address] [place] [phone] PCP - General 06/04/22 documented as of this encounter
--- OUTSIDE RECORDS SUMMARY | 2024-07-07 13:28 | XMS_ITS | Encounter Summary ---
Author Organization [employer] Address [address] [facility] 7t [place] [address] Care Team Providers Care Airport Operations Specialist Name Role Phone Cristian Chacon MD Primary Care Prov ider Reason for Visit * Reason Onset Date Comments Medication Question 09/12/2022 Encounter Details Date Type Department Care Team ([facility] st Contact Info) Description 09/12/2022 Telephone [facility] [address], [place] [phone] Cristian Chacon MD [address] [place] [address] Medication Question Social History Tobacco Use Types [...] EDT TC to pt- Jamee was the assistant to the dean. Pt stated she had not picked up the Benadryl yet for rash itchiness. She will do so. Also, pt's validation software facilitator has retired. She would like PCP to [...] on filedocumented in this encounter Care Teams Airport Operations Specialist Relationship Specialty Start Date End Date Cristian Chacon MD [address] [place] [address] PCP - General Internal Medicine 03/17/19 Ivy Payne Sausage SmokerTool Keeper 03/03/23 11/25/23 Ivy Payne Associate Account ManagerTool Keeper 11/26/23 documented as of this encounter
--- OUTSIDE RECORDS SUMMARY | 2024-07-07 13:28 | XMS_ITS | Clinical Summary ---
Author Organization [facility] Address [address] [place] [address] Care Team Providers Care Business Development Agent Name Role Phone Cristian Chacon MD [...] Type Department Care Team Description 04/21/2024 Telephone [facility] 4th floor Cardiology Medicine [address] [place] [phone] Jd Edwards Consultant: Mary Arraiga Telephone Intake, Staff PAC Form/Letter/Records Request 04/20/2024 9:00 AM EST Follow-Up [facility] [address], [place] [phone] Jd Edwards Consultant: Alonzo Baez MD FELI positive (Primary Dx); Arthralgia, unspecified joint; Chest pain, unspecified type; Moderate persistent asthma, unspecified whether complicated from Last 3 Months Family History Medical [...] Care Team (Late st Contact Info) Description 07/20/2024 1:40 PM EDT Follow-Up [facility] [address] [place] [phone] Jd Edwards Consultant: Alonzo Baez MD [address] [place] [address] 08/02/2024 1:30 PM EDT Follow-Up [facility] [address] [place] [address] Jd Edwards Consultant: Morales Ramsey MD [address] [place] [address] 08/16/2024 2:00 PM EDT Office Visit [facility] [address] [place] [address] Jd Edwards Consultant: Juan Ramon Vallejo, Dennis Whitlock MD [address] [place] [phone] Scheduled Procedures Name Priority Associated Diagnoses Date/Ti [...] 05/20/2024 05/20/2022, 05/01, 05/20/2022, Additional history exists Influenza Vaccine (Season Ended) 2024 12/11/2022, 01/04/2022, 02/12/2021, Additional history exists Colon Cancer Screening 11/17/2024 FOBT / Fit Test 11/17/2024 11/18/2023 Basic Metabolic Panel 04/20/2025 04/20/2024 , 04/14/2024, 03/23/2024, Additional history exists RSV Vaccine (60+ years old a nd patients) (1 - 1-dose 75+ series) 07/20/2043 HIV Screening Completed 09/29/2013 Hepatitis C Screening Completed 06/04/2022 Procedures * Due to [place] state law, this organization might not be [...] AM EST FELI positive Arthralgia, unspecified joint [id number] STAT 04/20/2024 9:23 AM EST FELI positive Arthralgia, unspecified joint HEPATITIS C ANTIBODY W/REFLEX TO HCV RNA, QUANTITATIVE PCR Routine 06/04/2022 5:43 PM EDT FELI positive from Last 3 Months or Most Recently Relevant to Health Maintenance Results * Due to [place] state law, this organization might not be sharing negative HIV tests. * Drake Top, Urine (04/20/2024 9:23 AM EST) Pathologist [facility] Extra Tube Hold for add-ons. 04/20/2024 2:05 PM EST [facility] Comment:Auto resulted. Urine Urine specimen collection, clean catch / Unknown Non-Blood Collection / Unknown 04/20/2024 9:23 AM EST 04/20/2024 9:39 AM EST us Alonzo Persaud MD LAB URINE ORDERABLES Final Result [facility] [address] [place] [address], * (ABNORMAL) DNA AB(DS) Crithidia Titer (04/20/2024 9:23 AM EST) Pathologist [facility] DNA Ab Crithidia Titer 1:40(H) <1:10 titer 04/23/2024 12:47 PM EST [facility] Blood Structure of peripheral vein / Unknown Venipuncture / Unknown 04/20/2024 9:23 AM EST 04/20/2024 9:38 AM EST Narrative [facility] - 04/23/2024 12:47 PM EST [facility] Received Date:[id number] us Alonzo Persaud MD LAB BLOOD ORDERABLES Final Result [facility] [address] [place] [address] 3rd Floor, [place] [address], [facility] [address] [place] [address], [place] * (ABNORMAL) Urinalysis W/Reflex to Microscopic & Culture (04/20/2024 9:23 AM EST) Color, Urine Yellow Colorless, Light Yellow, Yellow, Dark Yellow 04/20/2024 9:59 AM EST [facility] Clarity, Urine Clear Clear 04/20/2024 9:59 AM EST [facility] Specific [place], Urine 1.024 1.005 - 1.030 04/20/2024 9:59 AM EST [facility] pH, Urine 5.0 4.6 - 8.0 04/20/2024 9:59 AM [facility] Protein, Urine 1+(A) Negative 04/20/2024 9:59 AM [facility] Glucose, Urine Negative Negative 04/20/2024 9:59 AM [facility] Ketones, Urine Negative Negative 04/20/2024 9:59 AM EST [facility] Bilirubin, Urine Negative Negative 04/20/2024 9:59 AM EST [facility] Blood, Urine Negative Negative 04/20/2024 9:59 AM EST [facility] Nitrite, Urine Negative Negative 04/20/2024 9:59 AM EST [facility] Urobilinogen, Urine Normal Normal 04/20/2024 9:59 AM [facility] Leukocyte Esterase, Urine Negative Negative 04/20/2024 9:59 AM EST [facility] WBC, Urine 1 0 - 2 /HPF 04/20/2024 9:59 AM EST [facility] RBC, Urine <1 0 - 2 /HPF 04/20/2024 9:59 AM [facility] Hyaline Casts, Urine 0 0 - 2 /LPF 04/20/2024 9:59 AM EST [facility] Squamous Epithelial Cells, Urine 2 /HPF 04/20/2024 9:59 AM EST [facility] Bacteria, Urine None None /HPF /HPF 04/20/2024 9:59 AM EST [facility] Mucus, Urine Rare /LPF 04/20/2024 9:59 AM EST [facility] Urine Urine specimen collection, clean catch / Unknown Non-Blood Collection / Unknown 04/20/2024 9:23 AM EST 04/20/2024 9:39 AM EST Alonzo Persaud MD LAB URINE ORDERABLES Final Result [facility] [address] [place] [address], [place] * (ABNORMAL) DNA Antibody (ds) Crithidia IFA w/Reflex (04/20/2024 9:23 AM EST) DNA Ab(ds) Crithidia, IFA Positive(A ) Negative 04/23/2024 12:26 PM EST [facility] Blood Structure of peripheral vein / Unknown Venipuncture / Unknown 04/20/2024 9:23 AM EST 04/20/2024 9:38 AM EST Narrative [facility] - 04/23/2024 12:26 PM EST [facility] Received Date:[id number] Alonzo Persaud MD LAB BLOOD ORDERABLES Final Result [facility] [address] [place] [address] 3rd Floor, [place] [address], [facility] ([place]) [address] [place], [place] , [place] * Procalcitonin (04/20/2024 9:23 AM EST) Procalcitonin <0.20 <0.20 ng/mL 04/22/2024 2:53 PM EST [facility] 0091 Comment: Verified by repeat analysis. Procalcitonin levels above 2.00 ng/mL on the first day of ICU admission represent a high risk for progression to severe sepsis and/or septic shock. Procalcitonin Comment See Comments 04/22/2024 2:53 PM EST [facility]- [id number] Comment: Interpretation Guidelines Diagnosis of systemic [...] 9:23 AM EST 04/20/2024 9:38 AM EST [facility] - 04/22/2024 2:53 PM EST [facility] Received Date: us Alonzo Persaud MD LAB BLOOD ORDERABLES Final Result [facility] [address] [place] [address] [address] [facility], [place] [address], [place] [phone] [facility] [address] [place] [address], * (ABNORMAL) CBC Auto Differential (04/20/2024 9:23 AM EST) WBC 12.4(H) 3.8 - 10.8 10*3/uL 04/20/2024 9:47 AM EST [facility] RBC 4.34 3.80 - 5.10 10*6/uL 04/20/2024 9:47 AM EST [facility] Hemoglobin 12.3 11.7 - 15.5 g/dL 04/20/2024 9:47 AM [facility] Hematocrit 39.1 35.0 - 45.0 % 04/20/2024 9:47 AM [facility] MCV 90.1 80.0 - 100.0 fL 04/20/2024 9:47 AM [facility] MCH 28.3 27.0 - 33.0 pg 04/20/2024 9:47 AM [facility] MCHC 31.5(L) 32.0 - 36.0 g/dL 04/20/2024 9:47 AM [facility] RDW 13.4 11.0 - 15.0 % 04/20/2024 9:47 AM [facility] Platelets 351 140 - 400 10*3/uL 04/20/2024 9:47 AM [facility] MPV 9.4 7.5 - 12.5 fL 04/20/2024 9:47 AM [facility] Neutrophil % 88.3 % 04/20/2024 9:47 AM [facility] Immature Grans % 1.1(H) 0.0 - 0.9 % 04/20/2024 9:47 AM [facility] Lymphocyte % 6.1 % 04/20/2024 9:47 AM [facility] Monocyte % 4.1 % 04/20/2024 9:47 AM [facility] Eosinophil % 0.2 % 04/20/2024 9:47 AM [facility] Basophil % 0.2 % 04/20/2024 9:47 AM [facility] Neutrophil # 10.92(H) 1.50 - 7.80 10*3/uL 04/20/2024 9:47 AM [facility] Immature Grans # 0.14(H) <=0.03 10*3/uL 04/20/2024 9:47 AM EST [facility] Lymphocyte # 0.80(L) 0.85 - 3.90 10*3/uL 04/20/2024 9:47 AM EST [facility] Monocyte # 0.50 0.20 - 0.95 10*3/uL 04/20/2024 9:47 AM EST [facility] Eosinophil # <0.03 0.02 - 0.50 10*3/uL 04/20/2024 9:47 AM EST [facility] Basophil # <0.03 0.00 - 0.20 10*3/uL 04/20/2024 9:47 AM EST [facility] nRBC % 0.0 /100 WBCs 04/20/2024 9:47 AM EST [facility] nRBC # <0.01 <0.01 10*3/uL 04/20/2024 9:47 AM EST [facility] Blood Structure of peripheral vein / Unknown Venipuncture / Unknown 04/20/2024 9:23 AM EST 04/20/2024 9:38 AM EST us Alonzo Persaud MD LAB BLOOD ORDERABLES Final Result Performing Organization Address City/State/RUST Co de Phone Number [facility] [address] [place] [address], * Microalbumin, Random Urine with Creatinine (04/20/2024 9:23 AM EST) Microalbumin, Urine <2.0 mg/dL 04/20/2024 12:17 PM EST [facility] Creatinine, Urine 186 15 - 278 mg/dL 04/20/2024 12:17 PM EST [facility] Microalb/Creat Ratio, Random Urine 04/20/2024 12:17 PM EST [facility] Comment: < 1.0 mcg/mgCr Microalbumin Reference Range: Normal ? <30 mcg/mg Creatinine Microalbuminuria ? 30-300 mcg/mg Creatinine Clinical Albuminuria >300 mcg/mg Creatinine Reference: ADA Guideline. Diabetes Care. 2004;27 (suppl 1) Urine Voided urine specimen / Unknown Non-Blood Collection / Unknown 04/20/2024 9:23 AM EST 04/20/2024 9:39 AM EST Alonzo Persaud MD LAB URINE ORDERABLES Final Result Performing Organization Address City/State/RUST Co de Phone Number [facility] [address] [place] [address], [facility] [address] [place] [address], * (ABNORMAL) DNA Antibody, Double-Stranded (04/20/2024 9:23 AM EST) DNA (Ds) Antibody 7(H) IU/mL 025 9:50 PM EST [facility] Comment: ? IU/mL ? Interpretation ? < or = 4 ?Negative ? 5-9 ? Indeterminate ? > or = 10 ?? Positive Blood Structure of peripheral vein / Unknown Venipuncture / Unknown 04/20/2024 9:23 AM EST 04/20/2024 9:38 AM EST Narrative [facility] 04/21/2024 9:50 PM EST [facility] Received Date:[id number] Alonzo Persaud MD LAB BLOOD ORDERABLES Final Result [facility] [address] [facility] 3rd [address], [place] [address], [place] [phone] [facility] [address] [facility] 3rd [address], [place] [address], [place] [phone] * Sedimentation Rate (04/20/2024 9:23 AM EST) Sed Rate 23 <30 mm/Hr mm/Hr 04/20/2024 10:04 AM EST [facility] Blood Structure of peripheral vein / Unknown Venipuncture / Unknown 04/20/2024 9:23 AM EST 04/20/2024 9:38 AM EST Alonzo Persaud MD LAB BLOOD ORDERABLES Final Result Performing Organization Address City/[facility]/ZIP Co de Phone Number [facility] [address] [place] [address], [place] * Complement C3 (04/20/2024 9:23 AM EST) Complement Component C3C 101 83 - 193 mg/dL 04/21/2024 4:22 AM EST [facility] Blood Structure of peripheral vein / Unknown Venipuncture / Unknown 04/20/2024 9:23 AM EST 04/20/2024 9:38 AM EST Narrative [facility] - 04/21/2024 4:22 AM EST [facility] Received Date:[id number] Alonzo Persaud MD LAB BLOOD ORDERABLES Final Result [facility] [address] [facility] [address], [place] [address], [place] [phone] [facility] [employer] [facility] [address] [facility] 3rd Floor, [place] [address], [place] [phone] * Complement C4 (04/20/2024 9:23 AM EST) Complement Component C4C 21 15 - 57 mg/dL 04/21/2024 4:22 AM EST [facility] Blood Structure of peripheral vein / Unknown Venipuncture / Unknown 04/20/2024 9:23 AM EST 04/20/2024 9:38 AM EST Narrative [facility] - 04/21/2024 4:22 AM EST [facility] Received Date: Alonzo Persaud MD LAB BLOOD ORDERABLES Final Result [address]rd Floor, [place] [address], [place] [phone] [facility] [address] [facility], [place] [address], [place] [phone] * (ABNORMAL) C-Reactive Protein (04/20/2024 9:23 AM EST) C Reactive Protein 10.5(H) <=9.9 mg/L 04/20/2024 10:34 AM EST [facility] Blood Structure of peripheral vein / Unknown Venipuncture / Unknown 04/20/2024 9:23 AM EST 04/20/2024 9:38 AM EST us Alonzo Persaud MD LAB BLOOD ORDERABLES Final Result [facility] [address] [place] [address], * (ABNORMAL) Creatine Kinase (04/20/2024 9:23 AM EST) CK 35(L) 38 - 206 U/L 04/20/2024 10:34 AM EST [facility] Blood Structure of peripheral vein / Unknown Venipuncture / Unknown 04/20/2024 9:23 AM EST 04/20/2024 9:38 AM EST us Alonzo Persaud MD LAB BLOOD ORDERABLES Final Result [facility] [address] [place] [address], * (ABNORMAL) Comprehensive Metabolic Panel (04/20/2024 9:23 AM EST) NA 139 135 - 145 mmol/L 04/20/2024 10:34 AM EST [facility] K 3.8 3.5 - 5.3 mmol/L 04/20/2024 10:34 AM EST [facility] Cl 105 98 - 107 mmol/L 04/20/2024 10:34 AM EST [facility] CO2 24 22 - 32 mmol/L 04/20/2024 10:34 AM EST [facility] Anion Gap 10 5 - 15 04/20/2024 10:34 AM EST [facility] Glucose 177(H) 65 - 99 mg/dL 04/20/2024 10:34 AM EST [facility] Creatinine 0.73 0.50 - 1.20 mg/dL 04/20/2024 10:34 AM EST [facility] Calcium 8.4(L) 8.6 - 10.5 mg/dL 04/20/2024 10:34 AM EST [facility] Total Protein 6.9 6.0 - 8.0 g/dL 04/20/2024 10:34 AM EST [facility] Albumin 3.4(L) 3.5 - 5.2 g/dL 04/20/2024 10:34 AM EST [facility] Bilirubin, Total 0.3 0.2 - 1.2 mg/dL 04/20/2024 10:34 AM [facility] Alkaline Phosphatase 50 35 - 129 U/L 04/20/2024 10:34 AM EST [facility] AST 14 10 - 40 U/L 04/20/2024 10:34 AM EST [facility] ALT 11 10 - 40 U/L 04/20/2024 10:34 AM [facility] BUN 24(H) 7 - 23 mg/dL 04/20/2024 10:34 AM [facility] eGFR >90 >=60 mL/min/1. 73m2 04/20/2024 10:34 AM [facility] Comment:The estimated glomer ular [...] 2.1 - 4.2 g/dL 04/20/2024 10:34 AM [facility] A/G Ratio 1.0(L) 1.5 - 3.0 04/20/2024 10:34 AM EST [facility] Blood Structure of peripheral vein / Unknown Venipuncture / Unknown 04/20/2024 9:23 AM EST 04/20/2024 9:38 AM EST us Alonzo Persaud MD LAB BLOOD ORDERABLES Final Result [facility] [address] [place] [address], * Hepatitis C Antibody w/Reflex to HCV RNA, Quantitative PCR (06/04/2022 5:43 PM EDT) Hepatitis C Antibody NON-REACT BETO NON-REACT BETO 06/05/2022 3:44 AM EDT [facility] Signal To Cut-Off 0.02 <1.00 06/05/2022 3:44 AM EDT [facility] Comment: HCV antibody was non-reactive. There is no laboratory evidence of HCV infection. In most cases, no further action is required. However, if recent HCV exposure is suspected, a test for HCV RNA (test code 81059) is suggested. For additional information please refer to http://education.FIRE1/faq/HXQ51x0 (This link is being provided for informational/ educational purposes only.) Blood Structure of peripheral vein / Unknown Venipuncture / Unknown 06/04/2022 5:43 PM EDT 06/04/2022 6:08 PM EDT [facility] - 06/05/2022 3:44 AM EDT [facility] Received Date: Alonzo Persaud MD LAB BLOOD ORDERABLES Final Result Performing Organization Address City/State/RUST Co de Phone Number [facility] [address] [facility]rd [address], [place] [address], [employer] [facility] [address] 3rd [address], [place] [address], from Last 3 Months or Most Recently Relevant to Health Maintenance Insurance [facility] Care Teams Business Development Agent Relationship Specialty Start Date End Date Cristian Chacon MD [address] [place] [phone] PCP - General 06/04/22
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
--- OUTSIDE RECORDS SUMMARY | 2024-07-07 13:28 | XMS_ITS | Encounter Summary ---
Author Organization [employer] Address [address] [place] [address] Care Team Providers Care Signal Maintenance Technician Name Role Phone Cristian Chacon MD [...] on filedocumented in this encounter Care Teams Signal Maintenance Technician Relationship Specialty Start Date End Date Cristian Chacon MD [address] [place] [address] PCP - General Internal Medicine 03/17/19 Ivy Payne [employer] InspectorFounder And President 03/03/23 11/25/23 Ivy Payne [employer] TeacherFounder And President 11/26/23 documented as of this encounter
--- OUTSIDE RECORDS SUMMARY | 2024-07-07 13:28 | XMS_ITS | Encounter Summary ---
Author Organization [employer] Address [address] [place] [address] Care Team Providers Care Poultry Offal Icer Name Role Phone Cristian Chacon MD Primary Care Prov ider Encounter Details Date Type Department Care Team ([facility] st Contact Info) Description 02/19/2024 Orders Only [facility] [address] [place] [address] Provider, MD Roderick Social History Tobacco Use [...] documented as of this encounter Care Teams Poultry Offal Icer Relationship Specialty Start Date End Date Cristian Chacon MD [address] [place] [id number] PCP - General Internal Medicine 03/17/19 Ivy Payne [employer] SpecialistMakeup Instructor 11/26/23 documented as of this encounter
--- OUTSIDE RECORDS SUMMARY | 2024-07-07 13:28 | XMS_ITS | Clinical Summary ---
Author Organization [employer] Address [address] [place] [address] Care Team Providers Care Corporate Physical Security Supervisor Name Role Phone Cristian Chacon MD [...] (Folvite) 1 MG tablet TOME ОЛЕГ TABLETA DOS LOS D 022 Active ketorolac (Acular) 0.5 [...] the morning. 30 tablet 11 023 Active ammonium lactate (Amlactin) 12 % [...] 2 times daily. 5 mL 024 Active losartan (Cozaar) 25 MG tablet TOME ОЛЕГ TABLETA TODOS LOS [place] EN LA MANANA 90 tablet 3 024 Active furosemide (Lasix) 20 MG tablet [...] at bedtime for muscle spasms. 30 tablet Active albuterol (2.5 MG/3ML) 0.083% nebulizer solutionIndicatio [...] if needed for wheezing. 18 g 2 Active fluticasone-salme terol (Advair HFA) 230-21 MCG/ACT inhalerIndication s:Moderate persistent asthma without complication Inhale 2 puffs in the morning and at bedtime. 12 g Active losartan (Cozaar) 25 MG tabletIndications :Primary hypertension TOME 1 TABLETA POR VIA ORAL TODOS [place] EN LA MANANA 90 tablet 3 Active Blood Glucose Monitoring Suppl (FreeStyle Lite) w/Device kit 1 Device Once per day. 1 kit Active FREESTYLE LITE test stripIndications: Type 2 diabetes mellitus without complication, without long-term current use of insulin ([facility]) Use to test blood sugar 1 times daily 100 each 025 2025 Active Lancets 33G miscIndications:T ype 2 diabetes mellitus without complication, without long-term current use of insulin ([facility]) 1 Units before breakfast. 100 each Active naproxen (Naprosyn) 500 MG tabletIndications :Other headache syndrome Take 1 tablet (500 mg) by mouth with breakfast and with evening meal. 60 tablet Active ondansetron ODT (Zofran-ODT) 4 MG disintegrating tabletIndications :Nausea DISUELVA ОЛЕГ TABLETA POR V A ORAL CADA SEIS HORAS CUANDO SEA NECESARIO FOR NAUSEA 30 tablet 025 Active meclizine (Antivert) 25 MG tabletIndications :Dizziness Take 1 tablet (25 mg) by mouth every 8 (eight) hours if needed for dizziness. 30 tablet 3 025 Active EPINEPHrine (Epipen-JR) 0.15 MG/0.3ML injection syringeIndication s:Bee sting allergy INJECT 0.6 ML (0.3 MG) DIRECTED 1 (ONE) TIME FOR 1 DOSE. USE DIRECTED FOR ALLERGIC REACTION AND THEN CALL 911 0.6 mL 025 Active loratadine (Claritin) 10 MG tablet Take 10 mg by mouth. 018 Discontinued(R eorder (will not trigger notification to Pharmacy)) EPINEPHrine (Epipen-JR) 0.15 MG/0.3ML injection syringeIndication s:Bee sting allergy Inject 0.6 mL (0.3 mg) as directed 1 (one) time for 1 dose. use as directed for allergic reaction and then call 911 1 each 023 2024 Discontinued(R eorder (will not trigger notification to Pharmacy)) naproxen (Naprosyn) 500 MG tablet TAKE 1 TABLET (500 MG) BY MOUTH IN THE MORNING AND AT BEDTIME FOR MODERATE PAIN NEEDED 60 tablet 024 2024 Discontinued(R eorder (will not trigger notification to Pharmacy)) meclizine (Antivert) 25 MG tablet Take 1 tablet (25 mg) by mouth every 8 (eight) hours if needed for dizziness. 30 tablet 3 024 2024 Discontinued(R eorder (will not trigger notification to Pharmacy)) ondansetron ODT (Zofran-ODT) 4 MG disintegrating tablet DISUELVA ОЛЕГ TABLETA POR V A ORAL CADA SEIS HORAS CUANDO SEA NECESARIO FOR NAUSEA 30 tablet 024 2024 Discontinued(R eorder (will not trigger notification to Pharmacy)) Miconazole Nitrate (Monistat 3 Combination Pack) 200 & 2 MG-% (9GM) kitIndications:Va ginal candidiasis Insert 1 Application into the vagina at bedtime for 3 days. 1 kit 025 2024 EPINEPHrine (Epipen-JR) 0.15 MG/0.3ML injection syringeIndication s:Bee sting allergy Inject 0.6 mL (0.3 mg) as directed 1 (one) time for 1 dose. use as directed for allergic reaction and then call 911 1 each 025 2024 Discontinued Active Problems Problem Noted [...] & Plan (05/17/2024 2:43 PM EDT): On joão, followed by endocrinology Assessment & Plan (11/10/2023 [...] Plan (08/10/2023 4:03 PM EDT): Referral to Television News Producer for further evaluation of symptoms. Ordering Stress [...] allergic will prescribe ketotifen, follow up with plating technician, she has scheduled appointment already Pelvic pain 03/23/2023 Chronic pelvic pain in female 03/17/2023 Assessment & Plan (01/12/2024 6:12 PM EST): Patient wants [facility] be followed [facility], will place referral Upper back pain 01/14/2023 [...] lateral foot pain, she has seen various mission worker, she would like another opinion, she will [...] PM EST): Will place refferal to a charcoal kiln burner Seborrheic dermatitis 04/10/2022 Assessment & Plan (06/29/2022 [...] to perform daily activities, she currently has [employer]PERVIS[employer] services but the hours provided are not [...] LESION, MOST LIKELY HEMORRHAGIC OVARIAN CYST. F/U HEALTH AND WELLNESS COORDINATOR S/P US PELVIS 07/04/13 DUE PELVIC PAIN. 2.9 X 3.8 X 3 CM LEFT ADNEXAL CYSTIC LESION, MOST LIKELY HEMORRHAGIC OVARIAN CYST. F/U HEALTH AND WELLNESS COORDINATOR Left carpal tunnel syndrome 06/22/2013 Vitamin D deficiency disease 02/03/2012 Overview (05/29/2022): Overview: =17. =17. Allergic rhinitis due to allergen 2008 Gastroesophageal reflux disease without esophagi tis 07/13/2007 Anxiety and depression 05/13/2007 Overview (03/07/2022): Overview: F/U [facility] (DR. NANCE). F/U [facility] (DR. NANCE). Hypothyroidism 05/13/2007 Overview (05/29/2022): [...] Insomnia 05/13/2007 Overview (05/29/2022): Overview: F/U AT [facility] (DR. NANCE). F/U AT [facility] (DR. NANCE). Mild persistent asthma 05/13/2007 Assessment & Plan (05/17/2024 2:45 PM EDT): On inhalers, no current exacerbation, continue same therapy Encounters Date Type Department Care Team Description 07/05/2024 3:45 PM EDT Office Visit [facility] [address] [place] [address] Eduarda Villeda MD Other headache syndrome (Primary Dx); Chronic neck pain; Bee sting allergy; Type 2 diabetes mellitus without complication, without long-term current use of insulin ([facility]); Nausea; Dizziness 07/05/2024 Refill [facility] [address] [place] [address] Eduarda Villeda MD Bee sting allergy 07/05/2024 Travel 07/01/[address] [address] Cristian Chacon MD Nurse Triage; Transition Of Care (Tcm) 07/01/2024 Orders Only [facility] [address] [place] [phone] Roderick Weiner MD 06/30/2024 Orders Only [facility] [address] [place] [phone] Roderick Weiner MD 06/27/2024 Patient Outreach [address] [address] Cristian Chacon MD Care Coordination (Lissett/WILLIAM Khanna initial assessment rescheduled ) 06/23/2024 Patient Outreach [address] [address] Cristian Chacon MD Care Coordination (JOSE ANTONIO/WILLIAM Khanna initial assessment appt reminder ) 06/16/2024 2:00 PM EDT Office Visit [facility] [address] [place] [phone] Cassie Mahajan MD Viral pharyngitis (Primary Dx); Vaginal candidiasis; Fibromyalgia 06/16/2024 Travel 06/16/[address] [address] Cristian Chacon MD Nurse Triage 06/08/2024 Patient Outreach [address] [address] Cristian Chacon MD Care Coordination (JOSE ANTONIO/WILLIAM Khanna initial assessment rescheduled) 05/24/2024 Telephone [facility] [address] [place] [phone] Cristian Chacon MD 05/24/2024 Refill [facility] [address] [place] [address] Cristian Chacon MD Primary hypertension 05/18/2024 Orders Only GENERIC EXTERNAL DATA DEPARTMENT Provider, Generic External Data 05/17/2024 1:30 PM EDT Office Visit [facility] [address] [place] [address] Cristian Chacon MD Screening for colon cancer (Primary Dx); Primary hypertension; Acquired hypothyroidism; Pre-diabetes; Mild persistent asthma, unspecified whether complicated; Mixed stress and urge urinary incontinence 05/17/2024 Travel 05/16/2024 Orders Only GENERIC EXTERNAL DATA DEPARTMENT Provider, Generic External Data 05/13/2024 Patient Outreach [address] [address] Cristian Chacon MD Care Coordination (C3/W WILLIAM Parks initial assessment rescheduled) 05/13/2024 Population Health Risk Score [facility] (C3) Department [address] [place] [phone] Provider, Population Health Generic 05/11/2024 Telephone [facility] [address] [place] [address] Cristian Chacon MD status check 05/10/2024 3:30 PM EDT Office Visit [facility] [address] [place] [address] Eduarda Villeda MD Other chest pain (Primary Dx); Multiple joint pain; Moderate persistent asthma without complication; Type 2 diabetes mellitus without complication, without long-term current use of insulin ([facility]); Fall, initial encounter 05/10/2024 Travel 05/04/2024 Patient Outreach [facility] [address] [place] [address] Cristian Chacon MD Care Coordination (Outreach) 05/04/2024 Telephone [facility] [address] [place] [phone] Cristian Chacon MD ER Follow-up 05/03/2024 Orders Only GENERIC EXTERNAL DATA DEPARTMENT Provider, Generic External Data 05/03/2024 Patient Outreach [facility] [address] [place] [address] Cristian Chacon MD Care Coordination (Outreach) 05/02/2024 Orders Only [facility] External Provider, [facility] 04/27/2024 Patient Outreach [facility] [address] [place] [address] Cristian Chacon MD Care Coordination (Outreach) 04/26/2024 11:00 AM EST Office Visit [facility] [address] [place] [address] Aida Rae MD Moderate persistent asthma without complication (Primary Dx) 04/26/2024 Travel 04/26/2024 Patient Outreach [facility] [address] [place] [address] Cristian Chacon MD Care Coordination (Outreach) 04/20/2024 Telephone [facility] [address] [place] [address] Cristian Chacon MD Durable Medical Equipment 04/14/2024 Telephone [facility] [address] [place] [address] Cristian Chacon MD ER Follow-up 04/13/2024 10:45 AM EST Office Visit [facility] [address] [place] [address] Cristina Chacon MD Other chest pain (Primary Dx) 04/13/2024 Travel from Last 3 Months Immunizations Name Administration [...] Pulse 76 07/05/2024 3:55 PM EDT Temperature 36.3 ??C (97.4 ??F) 06/16/2024 2:14 PM ED T Respiratory Rate 20 06/16/2024 2:14 PM EDT Oxygen Saturation 97% 07/05/2024 3:55 PM EDT Inhaled Oxygen Concentration - - Weight 91.2 kg (201 lb) 06/16/2024 2:14 PM EDT Height 157.5 cm (5' 2 ) 06/16/2024 2:14 PM EDT Body Mass Index 36.76 06/16/2024 2:14 PM EDT Plan of Treatment Health Maintenance Due Date Last Done Comments CT Colonography 1968 Colonoscopy 1968 Colorectal Cancer Screening 1968 FIT DNA/Cologuard 1968 FIT 1968 FOBT 1968 HIV Screening 1968 Sigmoidoscopy 1968 Eye Exam 1978 Hepatitis C Screening 1986 [...] Lipid Panel 11/26/2022 11/26/2021 Diabetes: Hemoglobin A1C 08/29/2024 025, 02/02/2024, 11/18/2023, Additional history exists Depression Screening 12/21/2024 12/22/2023, 12/22/19 24 Diabetes: Urine Protein Screening 04/20/2025 04/20/2024, 03/23/2024, 11/11/2023, Additional history exists SDOH Screening 04/26/2025 04/26/2024 Alcohol/Substance Use Screening 05/17/2025 05/17/2024 Mammogram 05/26/2025 05/27/2023, 05/01, 05/20/2022, Additional history exists Diabetes: Foot Exam 06/16/2025 06/16/2024, 06/16/2024, 06/16/2024, Additional history exists Tobacco Screening 07/06/2025 07/06/2024 RSV Patients and Patients Aged 60 years [...] 2 VIEWS Routine 06/30/2024 3:30 PM EDT ECG 12-LEAD Routine 06/30/2024 10:02 AM EDT POCT INFLUENZA B (ID NOW RAPID MOLECULAR) Routine 06/16/2024 3:29 PM EDT Viral pharyngitis POCT INFLUENZA A (ID NOW RAPID MOLECULAR) Routine 06/16/2024 3:29 PM EDT Viral pharyngitis POC HUDSON ID NOW STREP A Routine 06/16/2024 3:28 PM EDT Viral pharyngitis POCT GLUCOSE Routine 06/16/2024 3:28 PM EDT Vaginal candidiasis POCT RAPID COVID ANTIGEN Routine 06/16/2024 3:27 PM EDT Viral pharyngitis POCT URINALYSIS DIPSTICK Routine 06/16/2024 3:26 PM EDT Viral pharyngitis BASIC METABOLIC PANEL Routine 05/18/2024 9:59 AM [...] 04/13/2024 2:18 PM EST Other chest pain HM HEMOGLOBIN A1C Routine 11/18/2023 10: 40 AM EDT BI MAMMOGRAM SCREENING TOMOSYNTHESIS BILATERAL Routine 05/27/2023 9:10 AM EDT LIPID PANEL, STANDARD Routine 11/26/2021 9:36 AM EDT from Last 3 Months or Most Recently Relevant to Health Maintenance Results * XR Chest 2 Views (06/30/2024 3:30 PM EDT) Anatomical Region Laterality Modality Chest Radiographic Amanda ging Historical Provider IMG XR PROCEDURES Final R esult * ECG 12 lead (06/30/2024 10:02 AM EDT) Only the most recent of3 resultswithin the time period is included. Historical Provider ECG ORDERABLES Final Res ult * Influenza B (ID NOW Rapid Molecular) (06/16/2024 3:29 PM EDT) Influenza B Negative Negative, Indeterminate [facility] QC Media Lot # [facility] Comment:[id number] Lot# Expiration Date [facility] Comment:09/29/2024 Swab 06/16/2024 3:29 PM EDT Cassie Mahajan MD POINT OF CARE TEST ENTER/EDIT ORDERABLES Final Result [facility] [address] [place] [address] [phone] * Influenza A (ID NOW Rapid Molecular) (06/16/2024 3:29 PM EDT) Influenza A Negative Negative, Indeterminate [facility] QC Media Lot # [facility] Comment:[id number] Lot# Expiration Date [facility] Comment:09/29/2024 Swab 06/16/2024 3:29 PM EDT Cassie Mahajan MD POINT OF CARE TEST ENTER/EDIT ORDERABLES Final Result [facility] [address] [place] [phone] * POCT ID NOW Rapid Strep A manually resulted (06/16/2024 3:28 PM EDT) Rapid Strep A Screen Negative Negative, None Detected QC Media Lot # Comment:[id number] Lot# Expiration Date Comment:01/29/2025 Swab 06/16/2024 3:28 PM EDT Cassie Mahajan MD POINT OF CARE TEST ENTER/EDIT ORDERABLES Final Result * POCT glucose manually resulted (06/16/2024 3:28 PM EDT) Glucose Blood, POC 112 60 - 200 mg/dL QC Media Lot # Comment:[id number] Lot# Expiration Date Comment:09/01/2024 Blood Capillary blood specimen / Unknown 06/16/2024 3:28 PM EDT Cassie Mahajan MD POINT OF CARE TEST ENTER/EDIT ORDERABLES Final Result * POCT Rapid COVID Ag (06/16/2024 3:27 PM EDT) Rapid COVID Ag Negative QC Media Lot # Comment:[id number] Lot# Expiration Date Comment:09/09/2025 Swab 06/16/2024 3:27 PM EDT Cassie Mahajan MD POINT OF CARE TEST ENTER/EDIT ORDERABLES Final Result * POCT urinalysis dipstick manually resulted (06/16/2024 3:26 PM EDT) Color, UA Yellow Clarity, UA Clear Glucose, UA Negative Bilirubin, UA Moderate Comment:small Ketones, UA Positive Comment:trace Spec Grav, UA 1.030 Blood, UA Negative Negative, None Detected pH, UA 6.0 Protein, UA Trace Urobilinogen, UA 1.0 Leukocytes, UA Negative Negative, Rare, Trace Nitrite, UA Negative Negative, None Detected Appearance, UA clear QC Media Lot # Comment:[id number] Lot# Expiration Date Comment:11/29/2024 Urine 06/16/2024 3:26 PM EDT Cassie Mahajan MD POINT OF CARE TEST ENTER/EDIT ORDERABLES Final Result * (ABNORMAL) Basic Metabolic Panel (05/18/2024 9:59 AM EDT) Only the most recent of2 resultswithin the time period is included. Sodium 140 135 - 145 mmol/L [facility] Potassium 4.5 3.3 - 5.1 mmol/L [facility] Chloride 109(H) 96 - 108 mmol/L [facility] Carbon Dioxide 24 22 - 29 mmol/L [facility] Anion Gap 12 12 - 20 [facility] Urea Nitrogen (BUN) 20(H) 9 - 16 mg/dL [facility] Creatinine, Serum 0.65 0.5 - 1.4 mg/dL [facility] Estimated Glomerular Filt Rate >60 [facility] Comment:Chronic Kidney Disea se: Estimated GFR < 60 mL/min/1.39m5Mirhdg Kidney Disease: Estimated GFR < 15 mL/min/1.73m2 Glucose 110 60 - 115 mg/dL [facility] Calcium 9.0 8.4 - 10.2 mg/dL [facility] 05/18/2024 9:59 AM EDT 05/18/2024 10:00 AM EDT us Generic External Data Provider LAB BLOOD ORDERAB LES Final Result [facility] [address] [place] [phone] * Cancelled Chemistry (05/16/2024 10:26 AM EDT) Pathologist [facility] Cancelled Chemistry SEE NOTE [facility] Comment:SPECIMEN HEMOLYZED 05/16/2024 10:2 6 AM EDT 05/16/2024 10:26 AM EDT Generic External Data Provider HISTORICAL/NON OR DERABLE LABS Final Result Performing Organization Address [facility] Co de Phone Number [facility] [address] [place] [phone] * Glucose, Whole Blood (05/03/2024 5:15 PM EST) [facility] Glucose, Whole Blood 76 60 - 115 mg/dL [facility] Comment:METER #: [id number] 05/03/2024 5:15 PM EST 05/03/2024 5:51 PM EST us Generic External Data Provider LAB BLOOD ORDERAB LES Final Result Performing Organization Address [facility] Phone Number [facility] [address] [place] [phone] * High Sensitivity Troponin I (05/03/2024 5:08 PM EST) Only the most recent of2 resultswithin the time period is included. [facility] TROPONIN I HIGH SENSITIVITY 7.4 <3.5 - 17.0 ng/L [facility] Comment:The [place] high sens itivity Troponin-I results should beused in conjunction with other diagnostic information suchas ECG, clinical observations and information, and patientsymptoms to aid in the diagnosis of MS. 05/03/2024 5:08 PM EST 05/03/2024 5:12 PM EST us Generic External Data Provider LAB BLOOD ORDERAB LES Final Result Performing Organization Address [facility] Co de Phone Number [facility] [address] [place] [phone] * Prothrombin Time-INR (05/03/2024 5:08 PM EST) Prothrombin Time 11.7 10.9 - 12.4 SEC [facility] INTERNATIONAL NORM RATIO 1.0 0.9 - 1.1 [facility] Comment:INTERNATIONAL NORMAL IZED RATIO (INR) [...] Provider LAB BLOOD ORDERAB LES Final Result [facility] [address] [place] [phone] [phone] * SARS-CoV-2 RNA, Influenza A/B, and RSV RNA, Ql NAAT (05/03/2024 11:04 AM EST) Influenza A PCR NEGATIVE Negative [facility] Influenza B PCR NEGATIVE Negative [facility] Resp Syncy Virus RNA Qual PCR NEGATIVE Negative [facility] SARS COV2 PCR NEGATIVE Negative [facility] Comment:All test results mus t [...] use by authorized laboratories.Testing performed on the real5DXpert utilizingreal-time RT-PCR.All SARS CoV2 and positive influenza A/B results arereported to [facility]. 05/03/2024 11:0 4 AM EST 05/03/2024 11:12 AM EST us Generic External Data Provider LAB MICROBIOLOGY - GENERAL ORDERABLES Final Result [facility] [address] [place] [phone] * (ABNORMAL) CBC auto differential (05/03/2024 11:04 AM EST) White Blood Count 8.1 4.8 - 10.8 X10*3/uL [facility] Red Blood Count 4.07(L) 4.20 - 5.50 X10*6/uL [facility] Hemoglobin 11.9(L) 12.0 - 16.0 g/dl [facility] Hematocrit 35.8(L) 37.0 - 47.0 % [facility] Mean Corpuscular Volume 88.0 80.0 - 98.0 fL [facility] Mean Corpuscular Hemoglobin 29.2 27.0 - 33.0 pg [facility] Mean Corpuscular HGB Conc 33.2 31.0 - 35.0 g/dl [facility] Red Cell Distribution Width 14.4 11.0 - 16.0 % [facility] Platelet Count 339 160 - 400 X10*3/uL [facility] Mean Platelet Volume 9.3(L) 9.4 - 12.3 fL [facility] Neutrophils Percent Auto 83.7(H) 45 - 73 % [facility] Imm Gran Pct Auto 0.6(H) 0.0 - 0.4 % [facility] Lymphocytes Percent Auto 11.5(L) 20 - 40 % [facility] Monocytes Percent Auto 3.6 2 - 11 % [facility] Eosinophils Percent Auto 0.5 0 - 4 % [facility] Basophils Percent Auto 0.1 0 - 2 % [facility] NRBC Pct Auto 0.0 0.0 - 0.2 /100WBC [facility] Neutrophils Absolute Auto 6.7 2.0 - 8.3 x10*3/uL [facility] Imm Gran Abs Auto 0.05(H) 0.00 - 0.03 X10*3/uL [facility] Lymphocytes Absolute Auto 0.9(L) 1.2 - 4.9 X10*3/uL [facility] Monocytes Absolute Auto 0.3 0.1 - 1.2 X10*3/uL [facility] Eosinophils Absolute Auto 0.0 0.0 - 0.4 X10*3/uL [facility] Basophils Absolute Auto 0.0 0.0 - 0.2 X10*3/uL [facility] NRBC Abs Auto 0.000 0.0 - 0.012 X10*3/uL [facility] 05/03/2024 11:0 4 AM EST 05/03/2024 11:12 AM EST Generic External Data Provider LAB BLOOD ORDERAB LES Final Result Performing Organization Address [facility] Co de Phone Number [facility] [address] [place] [phone] * (ABNORMAL) C-reactive Protein (05/03/2024 11:04 AM EST) Pathologist [facility] C Reactive Protein 3.79(H) < or = 0.50 mg/dL [facility] 05/03/2024 11:0 4 AM EST 05/03/2024 11:12 AM EST Generic External Data Provider LAB BLOOD ORDERAB LES Final Result Performing Organization Address [facility] Co de Phone Number [facility] [address] [place] [phone] * B Type Natriuretic Peptide (BNP) (05/03/2024 11:04 AM EST) B Type Natriuretic Peptide 44 <100 pg/mL [facility] Comment:For those patients w ho are being treated with Natrecor(nesiritide, recombinant BNP), BNP testing should beperformed at least two hours post treatment in order toensure that only endogenous levels of BNP are detected. 05/03/2024 11:0 4 AM EST 05/03/2024 11:12 AM EST Generic External Data Provider LAB BLOOD ORDERAB LES Final Result Performing Organization Address [facility] de Phone Number [facility] [address] [place] [phone] * Magnesium (05/03/2024 11:04 AM EST) Magnesium 2.1 1.6 - 2.6 mg/dL [facility] 05/03/2024 11:0 4 AM EST 05/03/2024 11:12 AM EST us Generic External Data Provider LAB BLOOD ORDERAB LES Final Result Performing Organization Address [facility] Phone Number [facility] [address] [place] [phone] * Lipase (05/03/2024 11:04 AM EST) Lipase 37 8 - 78 U/L [facility] 05/03/2024 11:0 4 AM EST 05/03/2024 11:12 AM EST Generic External Data Provider LAB BLOOD ORDERAB LES Final Result Performing Organization Address [facility] de Phone Number [facility] [address] [place] [phone] * Creatine Kinase, Total (05/03/2024 11:04 AM EST) Creatine Kinase Total 35 26 - 140 U/L [facility] 05/03/2024 11:0 4 AM EST 05/03/2024 11:12 AM EST us Generic External Data Provider LAB BLOOD ORDERAB LES Final Result Performing Organization Address [facility] Phone Number [facility] [address] [place] [phone] * Hepatic Function Panel (05/03/2024 11:04 AM EST) Bilirubin, Total 0.5 0.0 - 1.0 mg/dL [facility] Bilirubin, Direct 0.2 0.0 - 0.5 mg/dL [facility] Aspartate Amino Transferase 14 5 - 31 U/L [facility] Alanine Aminotransferase 13 0 - 31 U/L [facility] Total Protein 7.0 6.5 - 8.0 g/dL [facility] Albumin Level 3.5 3.5 - 5.0 g/dL [facility] Alkaline Phosphatase 54 39 - 117 U/L [facility] [facility] 05/03/2024 11:0 4 AM EST 05/03/2024 11:12 AM EST Generic External Data Provider LAB BLOOD ORDERAB LES Final Result Performing Organization Address [facility] Number [facility] [address] [place] [phone] * XR Chest 1 View (05/03/2024 10:40 AM EST) Anatomical Region Laterality Modality Chest Radiographic Amanda ging 05/03/2024 10:4 0 AM EST Narrative 05/03/2024 11:39 AM EST ? [facility] ?[address] ?[place] [address] ?XRay Report ? Signed ? Patient: Liriano,Scarlett ?MR#: [id number] ?? 354 ? : 1970 ?Acct:[id number] ? Age/Sex: 53 / F ?ADM Date: 03/04/25 ? Loc: HO.ED ? Attending Dr: ? Ordering Physician: Dana Montenegro DO ?? Date of Service: 05/03/24 ?? Procedure(s): XR chest 1V ?? Accession Number(s): [id number] ? cc: Cristian Chacon MD; Dana Montenegro [...] DD/ 1040 ? TD/TT: 05/03/24 1100 ? Customer Trainer: MSM ? Procedure Note Taylor, Makenna - 05/03/[address] [address] XRay Report Signed Patient: Scarlett LirianoMR#: [id number] 354 : 1970Acct:[id number] Age/Sex: 53 / FADM Date: 05/03/24 Loc: HO.ED Attending Dr: Ordering Physician: Dana Montenegro DO Date of Service: 05/03/24 Procedure(s): XR chest 1V Accession Number(s): [id number] cc: Cristian Chacon MD; Dana Montenegro DO [...] 05/03/24 1136 DD/ 1040 TD/TT: 05/03/24 1100 Customer Trainer: LEATHA [facility] External Provider IMG XR PROCEDURES Final Result * US Pelvis Transvaginal (05/03/2024 9:16 AM EST) Anatomical Region Laterality Modality Pelvis Ultrasound 05/03/2024 9:16 AM EST Narrative 05/03/2024 9:18 AM EST ? [facility] ?[address] ?[place] [address] ? Ultrasound Report ? Signed ? Patient: Scarlett Liriano ?MR#: [id number] ?? 354 ? : 1970 ?Acct:[id number] ? Age/Sex: 53 / F ?ADM Date: 05/02/24 ? Loc: HO.US ? Attending Dr: Gavino Wynne MD ? Ordering Physician: Gavino Wynne MD ?? Date of Service: 05/02/24 ?? Procedure(s): US pelvic and transvaginal ?? Accession Number(s): [id number] ? cc: Saskia Rosas MD; Gavino Wynne [...] ? DD/ 5 ? TD/TT: 05/03/24915 ? Customer Trainer: ? Procedure Note Donguilleter, Image - 05/03/[address] [address] Ultrasound Report Signed Patient: Scarlett LirianoMR#: [id number] 354 : 1970Acct:[id number] Age/Sex: 53 / FADM Date: 05/02/24 Loc: .US Attending Dr: Gavino Wynne MD Ordering Physician: Gavino Wynne MD Date of Service: 05/02/24 Procedure(s): US pelvic and transvaginal Accession Number(s): [id number] cc: Saskia Rosas MD; Gavino Wynne MD [...] in OV> 05/03/24916 DD/ 5 TD/TT: 05/03/24915 Customer Trainer: us [facility] External Provider IMG US PROCEDURES Final Result * BI Mammogram Screening Tomosynthesis Bilateral (05/27/2023 9:10 AM EDT) Anatomical Region Laterality Modality Breast Bilateral Mammography 05/27/2023 9:10 AM EDT Narrative 06/23/2023 5:53 AM EDT ? [facility] ? [address] ?[place], [place] [address] ? Mammography Report ? Signed ? Patient: Heri,Scarlett ?MR#: [id number] ?? 354 ? : 1970 ?Acct:[id number] ? Age/Sex: 52 / F ?ADM Date: 05/27/23 ? Loc: HO.MAMMO ? Attending Dr: Cristian Martinez MD ? Ordering Physician: Cristian Chacon MD ?Res ?? ults: 1Negative ? Date of Service: 05/27/23 ?Follow Up: 1 Year From Orig ?? inal Mammogram ? Procedure(s): MM tomosynthesis screening BI ?? Accession Number(s): [id number] ? cc: Cristian Chacon MD ? EXAMINATION: [...] 0549 ? DD/ 0910 ? TD/TT: ? Customer Trainer: ? Procedure Note Taylor, Makenna - 06/23/2023 [facility] [address] [place] [address] Mammography Report Signed Patient: Scarlett Liriano#: [id number] 354 : 1970Acct:[id number] Age/Sex: 52 / FADM Date: 05/27/23 Loc: HO.MAMMO Attending Dr: Cristian Martinez MD Ordering Physician: Cristian Chacon ults: 1Negative Date of Service: 05/27/23Follow Up: 1 Year From Orig inal Mammogram Procedure(s): MM tomosynthesis screening BI Accession Number(s): [id number] cc: Cristian Chacon MD EXAMINATION: MM SCREENING [...] in OV> 06/23/23 0549 DD/ 0910 TD/TT: Customer Trainer: Cristian Martinez MD IMG BI PROCEDURES Final [...] ?? Lopez GODFREY et al. KAILEE. 2013;310(19): 8317-1683 ?? (http://education.[employer]/faq/CIV611) Non-HDL Cholesterol 121 <130 mg/dL (calc) [facility] Comment: For patients with diabetes plus 1 major ASCVD risk ?? factor, treating to a non-HDL-C goal of <100 mg/dL ?? (LDL-C of <70 mg/dL) is considered a therapeutic ?? option. Triglycerides 91 <150 mg/dL [facility] 11/26/2021 9:36 AM EDT Cristian Martinez MD LAB BLOOD ORDERABL ES Final Result [facility] [address] from Last 3 Months or Most Recently Relevant to Health Maintenance Insurance [facility] C3 Care Teams Corporate Physical Security Supervisor Relationship Specialty Start Date End Date Cristian Chacon MD NPI: [id number] [place] [id number] PCP - General Internal Medicine 03/17/19 Ivy Payne Process StewardMedical Services Assistant 11/26/23
--- OUTSIDE RECORDS SUMMARY | 2024-07-07 13:28 | XMS_ITS | Clinical Summary ---
Author Organization [facility] Address [address] [place] [address] Care Team Providers Care Concrete Polisher Name Role Phone Unavailable Primary Care Provider [...]
--- OUTSIDE RECORDS SUMMARY | 2024-07-07 13:28 | XMS_ITS | Referral Summary ---
Author Organization [facility] Address [address] [place] [address] Care Team Providers Care Printed Circuit Board Pcb Draftsman Name Role Phone Cristian Chacon MD Primary Care Prov ider Encounters Date Type Department Care Team Description 04/21/2024 Telephone [facility] 4th floor Cardiology Medicine [address] [place] [address] Vault Attendant: Mary Arriaga Telephone Intake, Staff PAC Form/Letter/Records Request 04/20/2024 9:00 AM EST Follow-Up [facility] [address] [place] [address] Vault Attendant: Alonzo Baez MD FELI positive (Primary Dx); Arthralgia, unspecified joint; Chest pain, unspecified type; Moderate persistent asthma, unspecified whether complicated from Last 3 Months Allergies Active Allergy [...] (FOLVITE) 1 mg tablet TOME ОЛЕГ TABLETA DOS LOS D 2 Active hydrocortisone 2.5% cream Apply topically to the affected area 2 times a day. 2 Active hydrOXYchloroQU INE (PLAQUENIL) 200 mg tablet TOME ОЛЕГ TABLETA D 2 Active LORazepam (ATIVAN) 0.5 mg [...] Info) Description 07/20/2024 1:40 PM EDT Follow-Up [facility] [address] [place] [address] Vault Attendant: Alonzo Baez MD [address] [place] [address] 08/02/2024 1:30 PM EDT Follow-Up [facility] [address] [place] [address] Vault Attendant: Morales Ramsey MD [address] [place] [address] 08/16/2024 2:00 PM EDT Office Visit [facility] [address] [place] [address] Vault Attendant: Dennis Laguna MD [address] [place] [phone] Scheduled Procedures Name Priority Associated Diagnoses Date/Ti me ARTHROSCOPY, SHOULDER, WITH ROTATOR CUFF REPAIR Chronic left shoulder pain ARTHROSCOPY, SHOULDER, DEBRI RONAL, EXTENSIVE Chronic left shoulder pain ARTHROSCOPY, SHOULDER, BICEP S TENODESIS Chronic left shoulder pain Procedures * Due to [place] state law, this organization might not [...] AM EST FELI positive Arthralgia, unspecified joint [id number] STAT 04/20/2024 9:23 AM EST FELI positive Arthralgia, unspecified joint HEPATITIS C ANTIBODY W/REFLEX TO HCV RNA, QUANTITATIVE PCR Routine 06/04/2022 5:43 PM EDT FELI positive from Last 3 Months or Most Recently Relevant to Health Maintenance Results * Due to [place] state law, this organization might not be sharing negative HIV tests. * Drake Top, Urine (04/20/2024 9:23 AM EST) Pathologist [facility] Extra Tube Hold for add-ons. 04/20/2024 2:05 PM EST [facility] Comment:Auto resulted. Urine Urine specimen collection, clean catch / Unknown Non-Blood Collection / Unknown 04/20/2024 9:23 AM EST 04/20/2024 9:39 AM EST Alonzo Persaud MD LAB URINE ORDERABLES Final Result Performing Organization Address [facility] Co de Phone Number [facility] [address] [place] [address], * (ABNORMAL) DNA AB(DS) Crithidia Titer (04/20/2024 9:23 AM EST) Pathologist [facility] DNA Ab Crithidia Titer 1:40(H) <1:10 titer 04/23/2024 12:47 PM EST [facility] ([facility]) Blood Structure of peripheral vein / Unknown Venipuncture / Unknown 04/20/2024 9:23 AM EST 04/20/2024 9:38 AM EST Narrative [facility] - 04/23/2024 12:47 PM EST [facility] Received Date: Alonzo Persaud MD LAB BLOOD ORDERABLES Final Result Performing Organization Address City/[facility]/ZIP Co de Phone Number PHILLIP ROSARIO [address] [facility] 3rd Floor, [address] [place] [address], [place] [phone] [facility] LAO ([place]) [address] [place] [address], [place] * (ABNORMAL) Urinalysis W/Reflex to Microscopic & Culture (04/20/2024 9:23 AM EST) Color, Urine Yellow Colorless, Light Yellow, Yellow, Dark Yellow 04/20/2024 9:59 AM EST [facility] Clarity, Urine Clear Clear 04/20/2024 9:59 AM [facility] Specific Sisters, Urine 1.024 1.005 - 1.030 04/20/2024 9:59 AM EST [facility] pH, Urine 5.0 4.6 - 8.0 04/20/2024 9:59 AM [facility] Protein, Urine 1+(A) Negative 04/20/2024 9:59 AM [facility] Glucose, Urine Negative Negative 04/20/2024 9:59 AM EST [facility] Ketones, Urine Negative Negative 04/20/2024 9:59 AM EST [facility] Bilirubin, Urine Negative Negative 04/20/2024 9:59 AM EST [facility] Blood, Urine Negative Negative 04/20/2024 9:59 AM [facility] Nitrite, Urine Negative Negative 04/20/2024 9:59 AM EST [facility] Urobilinogen, Urine Normal Normal 04/20/2024 9:59 AM EST [facility] Leukocyte Esterase, Urine Negative Negative 04/20/2024 9:59 AM [facility] WBC, Urine 1 0 - 2 /HPF 04/20/2024 9:59 AM [facility] RBC, Urine <1 0 - 2 /HPF 04/20/2024 9:59 AM EST [facility] Hyaline Casts, Urine 0 0 - 2 /LPF 04/20/2024 9:59 AM EST [facility] Squamous Epithelial Cells, Urine 2 /HPF 04/20/2024 9:59 AM EST [facility] Bacteria, Urine None None /HPF /HPF 04/20/2024 9:59 AM EST [facility] Mucus, Urine Rare /LPF 04/20/2024 9:59 AM EST [facility] Urine Urine specimen collection, clean catch / Unknown Non-Blood Collection / Unknown 04/20/2024 9:23 AM EST 04/20/2024 9:39 AM EST us Alonzo Persaud MD LAB URINE ORDERABLES Final Result Performing Organization Address City/[facility]/ZIP Co de Phone Number [facility] [address] [place] [address], [place] * (ABNORMAL) DNA Antibody (ds) Crithidia IFA w/Reflex (04/20/2024 9:23 AM EST) DNA Ab(ds) Crithidia, IFA Positive(A ) Negative 04/23/2024 12:26 PM EST [facility] ([place]) Blood Structure of peripheral vein / Unknown Venipuncture / Unknown 04/20/2024 9:23 AM EST 04/20/2024 9:38 AM EST Narrative [facility] - 04/23/2024 12:26 PM EST [facility] Received Date:[id number] us Alonzo Persaud MD LAB BLOOD ORDERABLES Final Result [facility] [address] [place] [address] 3rd Floor, [place] [address], [place] [phone] [facility] ([place]) [address] [place], [place] , [place] * Procalcitonin (04/20/2024 9:23 AM EST) Procalcitonin <0.20 <0.20 ng/mL 04/22/2024 2:53 PM EST [facility]- [id number] Comment: Verified by repeat analysis. Procalcitonin levels above 2.00 ng/mL on the first day of ICU admission represent a high risk for progression to severe sepsis and/or septic shock. Procalcitonin Comment See Comments 04/22/2024 2:53 PM EST [facility] Comment: Interpretation Guidelines Diagnosis of systemic [...] 9:23 AM EST 04/20/2024 9:38 AM EST [facility] PHILLIP MARLENE - 04/22/2024 2:53 PM EST [facility] Received Date: Alonzo Persaud MD LAB BLOOD ORDERABLES Final Result [facility] ROSARIO [address] [place] [address] 3rd Floor, [place] [address], [place] [phone] Your Image by Brooke [facility] [address] [place] [address], [place] [phone] * (ABNORMAL) CBC Auto Differential (04/20/2024 9:23 AM EST) WBC 12.4(H) 3.8 - 10.8 10*3/uL 04/20/2024 9:47 AM [facility] RBC 4.34 3.80 - 5.10 10*6/uL 04/20/2024 9:47 AM [facility] Hemoglobin 12.3 11.7 - 15.5 g/dL 04/20/2024 9:47 AM [facility] Hematocrit 39.1 35.0 - 45.0 % 04/20/2024 9:47 AM [facility] MCV 90.1 80.0 - 100.0 fL 04/20/2024 9:47 AM [facility] MCH 28.3 27.0 - 33.0 pg 04/20/2024 9:47 AM [facility] MCHC 31.5(L) 32.0 - 36.0 g/dL 04/20/2024 9:47 AM [facility] RDW 13.4 11.0 - 15.0 % 04/20/2024 9:47 AM [facility] Platelets 351 140 - 400 10*3/uL 04/20/2024 9:47 AM [facility] MPV 9.4 7.5 - 12.5 fL 04/20/2024 9:47 AM [facility] Neutrophil % 88.3 % 04/20/2024 9:47 AM [facility] Immature Grans % 1.1(H) 0.0 - 0.9 % 04/20/2024 9:47 AM [facility] Lymphocyte % 6.1 % 04/20/2024 9:47 AM [facility] Monocyte % 4.1 % 04/20/2024 9:47 AM [facility] Eosinophil % 0.2 % 04/20/2024 9:47 AM [facility] Basophil % 0.2 % 04/20/2024 9:47 AM [facility] Neutrophil # 10.92(H) 1.50 - 7.80 10*3/uL 04/20/2024 9:47 AM EST [facility] Immature Grans # 0.14(H) <=0.03 10*3/uL 04/20/2024 9:47 AM EST [facility] Lymphocyte # 0.80(L) 0.85 - 3.90 10*3/uL 04/20/2024 9:47 AM EST [facility] Monocyte # 0.50 0.20 - 0.95 10*3/uL 04/20/2024 9:47 AM [facility] Eosinophil # <0.03 0.02 - 0.50 10*3/uL 04/20/2024 9:47 AM [facility] Basophil # <0.03 0.00 - 0.20 10*3/uL 04/20/2024 9:47 AM [facility] nRBC % 0.0 /100 WBCs 04/20/2024 9:47 AM [facility] nRBC # <0.01 <0.01 10*3/uL 04/20/2024 9:47 AM [facility] Blood Structure of peripheral vein / Unknown Venipuncture / Unknown 04/20/2024 9:23 AM EST 04/20/2024 9:38 AM EST us Alonzo Persaud MD LAB BLOOD ORDERABLES Final Result [facility] [address] [place] [address], * Microalbumin, Random Urine with Creatinine (04/20/2024 9:23 AM EST) Microalbumin, Urine <2.0 mg/dL 04/20/2024 12:17 PM EST [facility] Creatinine, Urine 186 15 - 278 mg/dL 04/20/2024 12:17 PM EST [facility] Microalb/Creat Ratio, Random Urine 04/20/2024 12:17 PM EST [facility] Comment: < 1.0 mcg/mgCr Microalbumin Reference Range: Normal ? <30 mcg/mg Creatinine Microalbuminuria ? 30-300 mcg/mg Creatinine Clinical Albuminuria >300 mcg/mg Creatinine Reference: ADA Guideline. Diabetes Care. 2004;27 (suppl 1) Urine Voided urine specimen / Unknown Non-Blood Collection / Unknown 04/20/2024 9:23 AM EST 04/20/2024 9:39 AM EST us Alonzo Persaud MD LAB URINE ORDERABLES Final Result [facility] [address] [place] [address], [facility] [address] [place] [address], * (ABNORMAL) DNA Antibody, Double-Stranded (04/20/2024 9:23 AM EST) DNA (Ds) Antibody 7(H) IU/mL 025 9:50 PM EST [employer] Comment: ? IU/mL ? Interpretation ? < or = 4 ?Negative ? 5-9 ? Indeterminate ? > or = 10 ?? Positive Blood Structure of peripheral vein / Unknown Venipuncture / Unknown 04/20/2024 9:23 AM EST 04/20/2024 9:38 AM EST Narrative [facility] - 04/21/2024 9:50 PM EST [facility] Received Date: Alonzo Persaud MD LAB BLOOD ORDERABLES Final Result [facility] [address] [facility] 3rd Floor, [place] [address], [place] [phone] [facility] [employer] [facility] [address] [facility] 3rd Floor, [place] [address], [place] [phone] * Sedimentation Rate (04/20/2024 9:23 AM EST) Sed Rate 23 <30 mm/Hr mm/Hr 04/20/2024 10:04 AM EST [facility] Blood Structure of peripheral vein / Unknown Venipuncture / Unknown 04/20/2024 9:23 AM EST 04/20/2024 9:38 AM EST Alonzo Persaud MD LAB BLOOD ORDERABLES Final Result Performing Organization Address [facility]/ZIP Co de Phone Number [facility] [address] [place] [address], * Complement C3 (04/20/2024 9:23 AM EST) Complement Component C3C 101 83 - 193 mg/dL 04/21/2024 4:22 AM EST Your Image by Brooke [facility] Blood Structure of peripheral vein / Unknown Venipuncture / Unknown 04/20/2024 9:23 AM EST 04/20/2024 9:38 AM EST Narrative [facility] - 04/21/2024 4:22 AM EST [facility] Received Date: us Alonzo Persaud MD LAB BLOOD ORDERABLES Final Result [facility] [address] [facility] 3rd Floor, [place] [address], [place] [phone] Your Image by Brooke [facility] [address], [place] [address], [place] [phone] * Complement C4 (04/20/2024 9:23 AM EST) Complement Component C4C 21 15 - 57 mg/dL 04/21/2024 4:22 AM EST Your [facility] Brooke [facility] Blood Structure of peripheral vein / Unknown Venipuncture / Unknown 04/20/2024 9:23 AM EST 04/20/2024 9:38 AM EST Narrative [facility] - 04/21/2024 4:22 AM EST [facility] Received Date: Alonzo Persaud MD LAB BLOOD ORDERABLES Final Result Performing Organization Address City/[facility]/ZIP Co de Phone Number [facility] [address], [place] [address], [place] [phone] Your Image by Brooke [facility] [address], [place] [address], [place] [phone] * (ABNORMAL) C-Reactive Protein (04/20/2024 9:23 AM EST) Pathologist [facility] C Reactive Protein 10.5(H) <=9.9 mg/L 04/20/2024 10:34 AM EST [facility] Blood Structure of peripheral vein / Unknown Venipuncture / Unknown 04/20/2024 9:23 AM EST 04/20/2024 9:38 AM EST us Alonzo Persaud MD LAB BLOOD ORDERABLES Final Result [facility] [address] [place] [address], * (ABNORMAL) Creatine Kinase (04/20/2024 9:23 AM EST) CK 35(L) 38 - 206 U/L 04/20/2024 10:34 AM [facility] Blood Structure of peripheral vein / Unknown Venipuncture / Unknown 04/20/2024 9:23 AM EST 04/20/2024 9:38 AM EST us Alonzo Persaud MD LAB BLOOD ORDERABLES Final Result [facility] [address] [place] [address], * (ABNORMAL) Comprehensive Metabolic Panel (04/20/2024 9:23 AM EST) NA 139 135 - 145 mmol/L 04/20/2024 10:34 AM EST [facility] K 3.8 3.5 - 5.3 mmol/L 04/20/2024 10:34 AM [facility] Cl 105 98 - 107 mmol/L 04/20/2024 10:34 AM [facility] CO2 24 22 - 32 mmol/L 04/20/2024 10:34 AM [facility] Anion Gap 10 5 - 15 04/20/2024 10:34 AM [facility] Glucose 177(H) 65 - 99 mg/dL 04/20/2024 10:34 AM [facility] Creatinine 0.73 0.50 - 1.20 mg/dL 04/20/2024 10:34 AM [facility] Calcium 8.4(L) 8.6 - 10.5 mg/dL 04/20/2024 10:34 AM [facility] Total Protein 6.9 6.0 - 8.0 g/dL 04/20/2024 10:34 AM [facility] Albumin 3.4(L) 3.5 - 5.2 g/dL 04/20/2024 10:34 AM [facility] Bilirubin, Total 0.3 0.2 - 1.2 mg/dL 04/20/2024 10:34 AM EST [facility] Alkaline Phosphatase 50 35 - 129 U/L 04/20/2024 10:34 AM EST [facility] AST 14 10 - 40 U/L 04/20/2024 10:34 AM EST [facility] ALT 11 10 - 40 U/L 04/20/2024 10:34 AM EST [facility] BUN 24(H) 7 - 23 mg/dL 04/20/2024 10:34 AM EST [facility] eGFR >90 >=60 mL/min/1. 73m2 04/20/2024 10:34 AM EST [facility] Comment:The estimated glomer ular [...] - 4.2 g/dL 04/20/2024 10:34 AM EST [facility] A/G Ratio 1.0(L) 1.5 - 3.0 04/20/2024 10:34 AM EST [facility] Blood Structure of peripheral vein / Unknown Venipuncture / Unknown 04/20/2024 9:23 AM EST 04/20/2024 9:38 AM EST us Alonzo Persaud MD LAB BLOOD ORDERABLES Final Result [facility] [address] [place] [address], * Hepatitis C Antibody w/Reflex to HCV RNA, Quantitative PCR (06/04/2022 5:43 PM EDT) Hepatitis C Antibody NON-REACT BETO NON-REACT BETO 06/05/2022 3:44 AM EDT Your Image by Brooke [facility] Signal To Cut-Off 0.02 <1.00 06/05/2022 3:44 AM EDT [employer] [facility] Comment: HCV antibody was non-reactive. There is no laboratory evidence of HCV infection. In most cases, no further action is required. However, if recent HCV exposure is suspected, a test for HCV RNA (test code 51144) is suggested. For additional information please refer to http://education.Klypper/faq/QUS34c3 (This link is being provided for informational/ educational purposes only.) Blood Structure of peripheral vein / Unknown Venipuncture / Unknown 06/04/2022 5:43 PM EDT 06/04/2022 6:08 PM EDT Narrative [facility] - 06/05/2022 3:44 AM EDT [facility] Received Date: us Alonzo Persaud MD LAB BLOOD ORDERABLES Final Result [facility] [address] [facility] 3rd [address], [place] [address], [place] [phone] Your Image by Brooke [facility] [address] [facility] 3rd Floor, [place] [address], [place] [phone] from Last 3 Months or Most Recently Relevant to Health Maintenance [place] [address] [place] [address] Care Teams Printed Circuit Board Pcb Draftsman Relationship Specialty Start Date End Date WylieCristian Cook MD [address] [place] [id number] PCP - General 06/04/22
--- OUTSIDE RECORDS SUMMARY | 2024-07-07 13:29 | XMS_ITS | Encounter Summary ---
Author Organization [employer] Address [address] [place] [address] Care Team Providers Care Disaster Or Damage Control Specialist Name Role Phone Cristian Chacon MD Primary Care Prov ider Encounter Details Date Type Department Care Team (Late st Contact Info) Description 03/22/2024 Orders Only [facility] PEDS [address] [place] [address] Provider, MD Roderick Social History Tobacco Use [...] documented as of this encounter Care Teams Disaster Or Damage Control Specialist Relationship Specialty Start Date End Date Cristian Chacon MD [address] [place] [id number] PCP - General Internal Medicine 03/17/19 Ivy Payne Temporary Administrative AssistantRegional Sales Consultant 11/26/23 documented as of this encounter
--- OUTSIDE RECORDS SUMMARY | 2024-07-07 13:29 | XMS_ITS | Encounter Summary ---
Author Organization [employer] Address [address] [facility] 7t [place] [address] Care Team Providers Care Aircraft Detail Draftsperson Name Role Phone Cristian Chacon MD Primary Care Prov ider Reason for Visit * Reason Onset Date Comments ER Follow-up 03/23/2024 Nurse Triage 03/23/2024 Encounter Details Date Type Department Care Team ([facility] Contact Info) Description 03/23/2024 Telephone [facility] MED[facility] [address] [place] [address] Cristian Chacon MD [address] [place] [address] ER Follow-up; Nurse Triage Social History Tobacco [...] 11:51 AM EST Triage call with S [place] [id number] Jose Alberto Pt was seen in [facility] ED 03/19/24 , (report is [...] is offered an apt this Thursday at [facility] with provider but, requests to only [...] 03/23/2024 9:50 AM EST Tc from pt career development manager calling to report ED visit on : Date: 03/19 Hospital: [facility] Seen for: Chest pain, Abdominal pain. Symptomatic Yes (Can't walk normally) *if yes message should go to Triage Patient advised will forward to team nurse for follow up [phone] kuwaiti documented in this encounter Plan of Treatment Not on file documented as of this encounter Visit Diagnoses Not on filedocumented in this encounter Additional Health Concerns Assessment Noted Time PHQ-9 Depression Total Score: 16 024 1:19 PM EDT documented as of this encounter Care Teams Aircraft Detail Draftsperson Relationship Specialty Start Date End Date Cristian Chacon MD [address] [place] [phone] PCP - General Internal Medicine 03/17/19 Ivy Payne Movie ProducerLead Javascript Engineer 11/26/23 documented as of this encounter
--- OUTSIDE RECORDS SUMMARY | 2024-07-07 13:29 | XMS_ITS | Encounter Summary ---
Author Organization [employer] Address [address] [facility] 7t [place] [address] Care Team Providers Care Applications Engineer Manufacturing Name Role Phone Cristian Chacon MD Primary Care Prov ider Reason for Visit * Reason Comments Med Refill Encounter Details Date Type Department Care Team ([facility] Contact Info) Description 02/27/2024 Refill [facility] MED & PEDS [address] [place], [place] [phone] Cristian Chacon MD [address] [place] [address] Social History Tobacco Use Types Packs/Day Years [...] documented as of this encounter Care Teams Applications Engineer Manufacturing Relationship Specialty Start Date End Date Cristian Chacon MD [address] [place] [address] PCP - General Internal Medicine 03/17/19 Ivy Payne Accounts ExecutiveAged Or Disabled Care Worker 11/26/23 documented as of this encounter
== END 2024-07-07 13:16 | disposition home or self-care (01) ==
LOC: HO.HGI 11:59
PROVIDERS: PCP Family Medicine; Visit Provider Nurse Practitioner
DX: K22.10 Ulcer of esophagus without bleeding (principal); K25.7 Chronic gastric ulcer without hemorrhage or perforation; R13.10 Dysphagia, unspecified; K21.9 Gastro-esophageal reflux disease without esophagitis; R11.2 Nausea with vomiting, unspecified
CPT/HCPCS: 99214

== ENCOUNTER → 2024-07-07 11:59 | Outpatient (BNVA) | payer MEDICAID, SELFPAY | PROVIDERS: PCP Family Medicine; Visit Provider Nurse Practitioner | DX: Z01.818 Encounter for other preprocedural examination (principal); K22.10 Ulcer of esophagus without bleeding; K25.7 Chronic gastric ulcer without hemorrhage or perforation; K21.9 Gastro-esophageal reflux disease without esophagitis; R13.10 Dysphagia, unspecified; R11.2 Nausea with vomiting, unspecified; R10.9 Unspecified abdominal pain; E11.9 Type 2 diabetes mellitus without complications | CPT/HCPCS: 99212 ==

== ENCOUNTER → 2024-07-21 08:10 | Outpatient (REF) | payer MEDICAID, SELFPAY ==
--- NOTE | ~2024-07-21 | NM_ITS ---
EXAMINATION: NM RADIONUCLIDE SOLID FOOD GASTRIC EMPTYING 4-HOUR STUDY CLINICAL INFORMATION: E11.9 - Type 2 diabetes mellitus without complications COMPARISON: None TECHNIQUE: The patient drank 8 ounces of Ensure tagged with 1.0 mCi Tc-99m Sulfur Colloid. Images were obtained using a dual head gamma camera in the anterior and posterior projections over of the stomach immediately post ingestion and at hourly intervals up to 4 hours post ingestion. The anterior and posterior counts at each time interval were averaged using the geometric mean and expressed as percentage of the immediate post ingestion counts. FINDINGS: There is visualization of activity in the stomach immediately post ingestion. As the study progresses, there is clearance of activity from the stomach and visualization of progressively increasing small bowel activity. Retention in the stomach at each time interval was: 1 hour 63% (normal 37%-90%) 2 hours 34% (normal 30%-60%) 3 hours 14% 4 hours 6% (normal 0%-10%) NM/NM gastric emptying study IMPRESSION: Normal 4-hour solid food gastric emptying study. For solid meal, rapid gastric emptying is less than 30% at 60 minutes. Delayed gastric emptying criteria is more than 60% remaining at 120 minutes or more than 10% at 240 minutes. The 4-hour value is the best discriminator of a normal or abnormal result). Gastric emptying study grading per JNMT Consensus Recommendations in 2008 (https://tech.snmjournals.org/content/36/1/44) Grade 1 (mild retention): 11-20% at 4h Grade 2 (moderate retention): 21-35% at 4h Grade 3 (severe retention): 36-50% at 4h Grade 4 (very severe retention): >50% retention at 4h Electronically signed by: Moses Decker MD 07/21/2024 01:47 PM EDT
--- OUTSIDE RECORDS SUMMARY | 2024-07-21 08:17 | XMS_ITS | Encounter Summary ---
Author Organization [employer] Address [address] [facility] 7t [place] [address] Care Team Providers Care Eligibility Counselor Name Role Phone Cristian Chacon MD Primary Care Prov ider Reason for Visit * Reason Onset Date Comments Nurse Triage 08/24/2023 Encounter Details Date Type Department Care Team ([facility] st Contact Info) Description 08/24/2023 Telephone C [facility] [address] [place], [place] [phone] Cristian Chacon MD [address] [place] [address] Nurse Triage Social History Tobacco Use Types [...] 08/24/2023 10:26 AM EDT Triage call with [employer] Teler[place] [id number] Pt reports rash has developed on upper, inner thighs and has spread to private area . Pt describesrash as red, bumpy and itchy. Pt reports some irritation vaginally and burning with urination. Burning is described as occurring when urine contacts rash but, may have other urinary symptoms as well.This is not clear to triage nurse. Advised Pt to come to [facility] today at 230pm. Pt agrees with [...] accepted this outcome Please contact pt at [phone] (survey research manager) documented in this encounter Plan of Treatment Not on file documented as of this encounter Visit Diagnoses Not on filedocumented in this encounter Additional Health Concerns Assessment Noted Time PHQ-9 Depression Total Score: 14 024 9:49 AM EST documented as of this encounter Care Teams Eligibility Counselor Relationship Specialty Start Date End Date Cristian Chacon MD [address] [place] [address] PCP - General Internal Medicine 03/17/19 Ivy Payne Java Scala DeveloperDepartment Head 03/03/23 11/25/23 Ivy Payne Pool HandDepartment Head 11/26/23 documented as of this encounter
--- OUTSIDE RECORDS SUMMARY | 2024-07-21 08:17 | XMS_ITS | Encounter Summary ---
Author Organization [employer] Address [address] [facility] [address] 7t [place] [address] Care Team Providers Care Can Capper Name Role Phone Cristian Chacon MD Primary Care Prov ider Encounter Details Date Type Department Care Team (Late st Contact Info) Description 07/01/2024 Orders Only [facility] PEDS [address] [place] [address] Provider, MD Roderick Social History Tobacco Use [...] the past 12 months, has t he [employer], [employer], oil or water [email or web address] threatened to shut off services in your [...] documented as of this encounter Care Teams Can Capper Relationship Specialty Start Date End Date Cristian Chacon MD [address] [place] [address] PCP - General Internal Medicine 03/17/19 Ivy Payne Crime Scene SpecialistElectronic Musical Instrument Repairer 11/26/23 documented as of this encounter
--- OUTSIDE RECORDS SUMMARY | 2024-07-21 08:17 | XMS_ITS | Encounter Summary ---
Author Organization [employer] Address [address] [facility] 7t [place] [address] Care Team Providers Care Advisory Software Engineer Name Role Phone Cristian Chacon MD Primary Care Prov ider Encounter Details Date Type Department Care Team ([facility] Contact Info) Description 11/19/2023 Orders Only [facility] [address] [place], [place] [phone] Provider, MD Roderick Social History Tobacco Use [...] documented as of this encounter Care Teams Advisory Software Engineer Relationship Specialty Start Date End Date Cristian Chacon MD [address] [place] [address] PCP - General Internal Medicine 03/17/19 Ivy Payne Resistance BrazerMuck Miner Blasting 03/03/23 11/25/23 Ivy Payne Portable Pinch RiveterMuck Miner Blasting 11/26/23 documented as of this encounter
--- OUTSIDE RECORDS SUMMARY | 2024-07-21 08:17 | XMS_ITS | Encounter Summary ---
Author Organization [employer] Address [address] [facility] 7t [place] [address] Care Team Providers Care Coordinate Measuring Machine Operator Name Role Phone Cristian Chacon MD Primary Care Prov ider Encounter Details Date Type Department Care Team ([facility] Contact Info) Description 06/30/2024 Orders Only [facility] [address] [place], [place] [phone] Provider, MD Roderick Social History Tobacco Use [...] the past 12 months, has t he [email or web address], oil or water [email or web address] threatened to shut off services in your [...] Modality Chest Radiographic Amanda ging Historical Provider MD MAHONEY XR PROCEDURES Final R esult documented in this encounter Visit Diagnoses Not on filedocumented in this encounter Additional Health Concerns Assessment Noted Time PHQ-9 Depression Total Score: 16 024 1:19 PM EDT documented as of this encounter Care Teams Coordinate Measuring Machine Operator Relationship Specialty Start Date End Date Cristian Chacon MD [address] [place] [phone] PCP - General Internal Medicine 03/17/19 Ivy Payne Administration AssistantLabel Drier 11/26/23 documented as of this encounter
--- OUTSIDE RECORDS SUMMARY | 2024-07-21 08:17 | XMS_ITS | Encounter Summary ---
Author Organization [employer] Address 75 [facility] 7t [place] [address] Care Team Providers Care Vascular Nurse Name Role Phone Cristian Chacon MD Primary Care Prov ider Encounter Details Date Type Department Care Team ([facility] st Contact Info) Description 08/25/2023 Telephone [facility] MED & PEDS [address] [place], [place] [phone] Cristian Chacon MD 505 [place] [address] Social History Tobacco Use Types Packs/Day Years [...] documented as of this encounter Care Teams Vascular Nurse Relationship Specialty Start Date End Date Cristian Chacon MD [address] [place] [address] PCP - General Internal Medicine 03/17/19 Ivy Payne Chip Loft WorkerEddy Current Inspector 03/03/23 11/25/23 Ivy Payne Deicer FinisherEddy Current Inspector 11/26/23 documented as of this encounter
--- OUTSIDE RECORDS SUMMARY | 2024-07-21 08:18 | XMS_ITS | Encounter Summary ---
Author Organization [employer] Address [address] [facility] [address] 7t [place] [address] Care Team Providers Care Information Strategist Name Role Phone Cristian Chacon MD Primary Care Prov ider Encounter Details Date Type Department Care Team (Late st Contact Info) Description 07/13/2024 Orders Only [facility] MED & PEDS [address] [place], [place] [phone] Provider, MD Roderick Social History Tobacco Use [...] the past 12 months, has t he [employer], [employer], oil or water [employer] threatened to shut off services in your [...] Name Priority Date/Time Associated Diagnosis Comments HM PAP/HPV Routine 04/17/2022 3:44 PM EST documented in this encounter Results * HM PAP/HPV (04/17/2022 3:44 PM EST) us Historical Provider HEALTH MAINTENANCE Final Result documented in this encounter Visit Diagnoses Not on filedocumented in this encounter Additional Health Concerns Assessment Noted Time PHQ-9 Depression Total Score: 16 024 1:19 PM EDT documented as of this encounter Care Teams Information Strategist Relationship Specialty Start Date End Date Cristian Chacon MD [address] [place] [address] PCP - General Internal Medicine 03/17/19 Ivy Payne Upper TierEngine Specialist 11/26/23 documented as of this encounter
--- OUTSIDE RECORDS SUMMARY | 2024-07-21 08:18 | XMS_ITS | Encounter Summary ---
Author Organization [employer] [facility] Address [address] [place] [address] 7 [place] [address] Care Team Providers Care Sizer Machine Name Role Phone Cristian Chacon MD Primary [...] on filedocumented in this encounter Care Teams Sizer Machine Relationship Specialty Start Date End Date Cristian Chacon MD [address] [place] [address] PCP - General Internal Medicine 03/17/19 Ivy Payne Block OperatorWire Stripping Machine Operator 03/03/23 11/25/23 Ivy Payne Solar Maintenance TechnicianWire Stripping Machine Operator 11/26/23 documented as of this encounter
--- OUTSIDE RECORDS SUMMARY | 2024-07-21 08:18 | XMS_ITS | Encounter Summary ---
Author Organization [employer] Address [address] [facility] 7 [place] [address] Care Team Providers Care [place] Dental Lab Technician Name Role Phone Cristian Chacon MD Primary Care Prov ider Reason for Visit * Reason Onset Date Comments Care Coordination 07/18/2024 C3[facility] initial a ssessment/ enrollment Encounter Details Date Type Department Care Team ([facility] Contact Info) Description 07/18/2024 Telephone [facility] MED & PEDS [address] [place], [place] [phone] Cristian Chacon MD 505 [place] [address] Care Coordination ([facility] initial assessment/ enrollment) Social History Tobacco Use Types Packs/Day Years [...] getting things needed for daily living? No 07/18/2024 Utilities Answer Date Recorded In the past [...] encounter Miscellaneous Notes * Telephone Encounter - Collette Puentes RN - 07/18/2024 11:00 AM EDT JAMEL Puentes RN had a [id number] encounter with patient for agreed upon time for initial assessment for enrollment into Adult Care Management Program. Patient's name, , and address were verified. Pt reports she has an upcoming specialist appt- neurology appt in September 10, Allergy in August 16, social media specialist in August 22, cardiology in September 01. Pt has all these appointments written in her calendar. Pt states she has a form of transportation to all her appointments. Pt is up to date with both her dental and social media specialist appointments. Pt states she uses a walker to assist with ambulation during the mornings when she wakes up to get her joints moving. Pt states she is non-compliant with diabetic diet and do not exercise due to joint pain, fibromyalgia and headaches. CM educated pt on the role of diabetic diet in disease management. Pt states she takes pain medication for the pain with good effect. Pt reports she is concern about her weight but decline referral at this time. Pt states she checks her BP occasionally and checks her BG daily which has been normal. Pt states she feels safe in her home and denies smoking or drinking at this time. Per pt, she sees the psychiatrist [id number] and the therapist once a week for depression and anxiety with good effects. Pt denies SI/HI and states she has the number to crisis and agreed to call when needed. Pt states she is compliant with all her medications and denies any concern or side effect at this time. Pt states her goal is to get health and with no pain. CM plan includes health education, appointment reminder, connecting pt to needed resources to improve health and care coordination. Care management program explained and contact information given. Patient verbalizes understanding, and able to repeat back to typewriter repairer. A follow up call will be placed within 10 days, patient agrees with plan. JAMEL Puentes RN, provided notification to PCP Dr. Wylie of patient's enrollment into [facility]. JAMEL Puentes RN, completed care plan and sent to HIM to be scanned into the medical record. PCP notified and awaiting review from provider. documented in this encounter Plan of Treatment Not on file documented as of this encounter Visit Diagnoses Not on filedocumented in this encounter Additional Health Concerns Assessment Noted Time PHQ-9 Depression Total Score: 16 12/21/ 024 1:19 PM EDT documented as of this encounter Care Teams [place] Dental Lab Technician Relationship Specialty Start Date End Date Cristian Chacon MD [address] [place] [id number] PCP - General Internal Medicine 03/17/19 Ivy Payne Medical NurseCertified Dietary Manager 11/26/23 documented as of this encounter
--- OUTSIDE RECORDS SUMMARY | 2024-07-21 08:18 | XMS_ITS | Encounter Summary ---
Author Organization [employer] Address [address] [facility] 7t [place] [address] Care Team Providers Care Rat Breeder Name Role Phone Cristian Chacon MD Primary Care Prov ider Encounter Details Date Type Department Care Team ([facility] st Contact Info) Description 07/18/2024 Orders Only [facility] CH[facility] MED & PEDS [address] [place], [place] [phone] Cristian Chacon MD [address] [place] [address] Social History Tobacco Use Types Packs/Day Years [...] Progress Notes * Cristian Martinez MD - 07/18/2024 3:20 PM EDT butar documented in this encounter Plan of Treatment Not on file documented as of this encounter Visit Diagnoses Not on filedocumented in this encounter Additional Health Concerns Assessment Noted Time PHQ-9 Depression Total Score: 16 024 1:19 PM EDT documented as of this encounter Care Teams Rat Breeder Relationship Specialty Start Date End Date Cristian Chacon MD [address] [place] [id number] PCP - General Internal Medicine 03/17/19 Ivy Payne Patient Safety SitterCollar Baster 11/26/23 documented as of this encounter
--- OUTSIDE RECORDS SUMMARY | 2024-07-21 08:18 | XMS_ITS | Clinical Summary ---
Author Organization [facility] Address [address] [place] [address] Care Team Providers Care Civil Service Clerk Name Role Phone Cristian Chacon MD [...] area 2 times a day. 2 Active hydrOXYchloroQ UINE (PLAQUENIL) 200 mg tablet TOME ОЛЕГ TABLETA [...] safflower base 42.5 g 3 3 Active predniSONE (DELTASONE) 1 mg tablet Take 4 tablets (4 mg total) by mouth once a day. 120 tablet 5 4 Active nystatin (MYCOSTATIN) 100,000 unit/gram powderIndicati ons:Intertrigo Apply topically to the affected area 2 [...] 2 times a day with meals. Active butalbital-flores taminophen-caf feine (FIORICET) 50-325-40 mg tablet Take 1 tablet by mouth every 8 hours as needed. 5 025 Active mycophenolate (CELLCEPT) 500 mg tablet Take one tablet daily 30 tablet 1 5 Active predniSONE (DELTASONE) 5 mg tablet Take 1 tablet (5 mg total) by mouth 2 times a day. 60 tablet 2 5 Active losartan (COZAAR) 25 mg tablet Take 25 mg by mouth daily. 4 025 Discontinu ed(Discont inued by another clinician) Active Problems Problem Noted Date Diagnosed Date Traumatic incomplete tear of left rotator cuff 1 Mixed stress and urge urinary incontinence 04/04 Encounters Date Type Department Care Team Description 07/20/2024 1:40 PM EDT Follow-Up [facility] [address] [place] [id number] Transportation Driver: Alonzo Baez MD FELI positive (Primary Dx); Arthralgia, unspecified joint; Fibromyalgia from Last 3 Months Family History Medical [...] Sign Reading Time Taken Comments Blood Pressure 110/69 07/20/2024 12:19 PM EDT Pulse 80 07/20/2024 12:19 PM EDT Temperature 36.8 ??C (98.3 ??F) 07/20/2024 1 2:19 PM EDT Respiratory Rate - - Oxygen Saturation - - Inhaled Oxygen Concentration - - Weight 90.7 kg (200 lb) 07/20/2024 12:1 9 PM EDT patient reported Height 157.5 cm (5' 2 ) 07/20/2024 12:1 9 PM EDT Body Mass Index 36.58 07/20/2024 12:19 PM EDT Plan of Treatment Upcoming Encounters Date Type Department Care Team (Late st Contact Info) Description 08/16/2024 2:00 PM EDT Office Visit [facility] [address] [place] [id number] Transportation Driver: Dennis Laguna MD [address] [place] [phone] 12/06/2024 1:30 PM EDT Follow-Up [facility] [address] [place] [address] Transportation Driver: Morales Ramsey MD [address] [place] [address] [phone] Scheduled Procedures Name Priority Associated Diagnoses Date/Ti [...] 50+ Ye ars (3 of 3 - PPSV23, PCV20 or PCV21) 10/15/2015 10/14/2010, 10/14/2010 Zoster Vaccines (2 of 2) [...] Fit Test 11/17/2024 11/18/2023 Basic Metabolic Panel 07/20/2025 07/20/2024 , 06/30/2024, 05/18/2024, Additional history exists RSV Vaccine (60+ years old a nd patients) (1 - 1-dose 75+ series) 07/20/2043 HIV Screening Completed 09/29/2013 Hepatitis C Screening Completed 06/04/2022 Procedures * Due to [place] state law, this organization might not be sharing negative HIV tests. Procedure Name Priority Date/Time Associated Diagnosis Comments COMPREHENSIVE METABOLIC PANEL Routine 07/20/2024 1:58 PM EDT FELI positive Arthralgia, unspecified joint Fibromyalgia CBC Routine 07/20/2024 1:58 PM EDT FELI positive Arthralgia, unspecified joint Fibromyalgia SEDIMENTATION RATE, AUTOMATED Routine 07/20/2024 1:58 PM EDT FELI positive Arthralgia, unspecified joint Fibromyalgia C-REACTIVE PROTEIN Routine 07/20/2024 1: 58 PM EDT FELI positive Arthralgia, unspecified joint Fibromyalgia COMPLEMENT C3 Routine 07/20/2024 1:58 PM EDT FELI positive Arthralgia, unspecified joint Fibromyalgia COMPLEMENT C4 Routine 07/20/2024 1:58 PM EDT FELI positive Arthralgia, unspecified joint Fibromyalgia HEPATITIS C ANTIBODY W/REFLEX TO HCV RNA, QUANTITATIVE PCR Routine 06/04/2022 5:43 PM EDT FELI positive from Last 3 Months or Most Recently Relevant to Health Maintenance Results * Due to [place] state law, this organization might not be sharing negative HIV tests. * Sedimentation Rate (07/20/2024 1:58 PM EDT) Sed Rate 28 <30 mm/Hr mm/Hr 07/20/2024 2:52 PM EDT [facility] Blood Structure of peripheral vein / Unknown Venipuncture / Unknown 07/20/2024 1:58 PM EDT 07/20/2024 2:40 PM EDT us Alonzo Persaud MD LAB BLOOD ORDERABLES Final Result Performing Organization Address City/State/[facility] Co de Phone Number [facility] [address] [place] [address], [place] * (ABNORMAL) CBC (07/20/2024 1:58 PM EDT) WBC 5.4 3.8 - 10.8 10*3/uL 07/20/2024 2:48 PM EDT [facility] RBC 4.36 3.80 - 5.10 10*6/uL 07/20/2024 2:48 PM EDT [facility] Hemoglobin 12.3 11.7 - 15.5 g/dL 07/20/2024 2:48 PM EDT [facility] Hematocrit 39.0 35.0 - 45.0 % 07/20/2024 2:48 PM EDT [facility] MCV 89.4 80.0 - 100.0 fL 07/20/2024 2:48 PM EDT [facility] MCH 28.2 27.0 - 33.0 pg 07/20/2024 2:48 PM EDT [facility] MCHC 31.5(L) 32.0 - 36.0 g/dL 07/20/2024 2:48 PM EDT [facility] RDW 13.9 11.0 - 15.0 % 07/20/2024 2:48 PM EDT [facility] Platelets 388 140 - 400 10*3/uL 07/20/2024 2:48 PM EDT [facility] MPV 9.4 7.5 - 12.5 fL 07/20/2024 2:48 PM EDT [facility] Blood Structure of peripheral vein / Unknown Venipuncture / Unknown 07/20/2024 1:58 PM EDT 07/20/2024 2:39 PM EDT Alonzo Persaud MD LAB BLOOD ORDERABLES Final Result [facility] [address] [place] [address], * C3 complement (07/20/2024 1:58 PM EDT) Complement Component C3C 113 83 - 193 mg/dL 07/21/2024 6:58 AM EDT [facility] Blood Structure of peripheral vein / Unknown Venipuncture / Unknown 07/20/2024 1:58 PM EDT 07/20/2024 2:39 PM EDT [facility]ative [facility] 07/21/2024 6:58 AM EDT [facility] Received Date: Alonzo Persaud MD LAB BLOOD ORDERABLES Final Result Performing Organization Address City/[facility]/ZIP Co de Phone Number [facility]ARY[facility] [address], [place] [address], [place] [phone] [facility] [address], [place] [address], [place] [phone] * C4 complement (07/20/2024 1:58 PM EDT) Complement Component C4C 23 15 - 57 mg/dL 07/21/2024 6:58 AM EDT [facility] Blood Structure of peripheral vein / Unknown Venipuncture / Unknown 07/20/2024 1:58 PM EDT 07/20/2024 2:39 PM EDT N[facility]ative [facility] 07/21/2024 6:58 AM EDT [facility] Received Date: Alonzo Persaud MD LAB BLOOD ORDERABLES Final Result Performing Organization Address [facility]/ZIP Co de Phone Number [facility]ILLIP MARYDEL [address], [place] [address], [place] [phone] [facility] [address], [place] [address], [place] [phone] * (ABNORMAL) C-reactive protein (07/20/2024 1:58 PM EDT) C Reactive Protein 27.0(H) <=9.9 mg/L 07/20/2024 3:12 PM EDT [facility] Blood Structure of peripheral vein / Unknown Venipuncture / Unknown 07/20/2024 1:58 PM EDT 07/20/2024 2:39 PM EDT Alonzo Persaud MD LAB BLOOD ORDERABLES Final Result [facility] [address] [place] [id number], [place] * (ABNORMAL) Comprehensive metabolic panel (07/20/2024 1:58 PM EDT) NA 141 135 - 145 mmol/L 07/20/2024 3:13 PM EDT [facility] K 3.9 3.5 - 5.3 mmol/L 07/20/2024 3:13 PM EDT [facility] Cl 106 98 - 107 mmol/L 07/20/2024 3:13 PM EDT [facility] CO2 25 22 - 32 mmol/L 07/20/2024 3:13 PM EDT [facility] Anion Gap 10 5 - 15 07/20/2024 3:13 PM EDT [facility] Glucose 116(H) 65 - 99 mg/dL 07/20/2024 3:13 PM EDT [facility] Creatinine 0.77 0.50 - 1.20 mg/dL 07/20/2024 3:13 PM EDT [facility] Calcium 8.7 8.6 - 10.5 mg/dL 07/20/2024 3:13 PM EDT [facility] Total Protein 6.9 6.0 - 8.0 g/dL 07/20/2024 3:13 PM EDT [facility] Albumin 3.4(L) 3.5 - 5.2 g/dL 07/20/2024 3:13 PM EDT [facility] Bilirubin, Total <0.2(L) 0.2 - 1.2 mg/dL 07/20/2024 3:13 PM EDT [facility] Alkaline Phosphatase 56 35 - 129 U/L 07/20/2024 3:13 PM EDT [facility] AST 16 10 - 40 U/L 07/20/2024 3:13 PM EDT [facility] ALT 14 10 - 40 U/L 07/20/2024 3:13 PM EDT [facility] BUN 23 7 - 23 mg/dL 07/20/2024 3:13 PM EDT [facility] eGFR >90 >=60 mL/min/1 .73m2 07/20/2024 3:13 PM EDT [facility] Comment:The estimated glomer [...] Globulin, Total 3.5 2.1 - 4.2 g/dL 07/20/2024 3:13 PM EDT [facility] A/G Ratio 1.0(L) 1.5 - 3.0 07/20/2024 3:13 PM EDT [facility] Blood Structure of peripheral vein / Unknown Venipuncture / Unknown 07/20/2024 1:58 PM EDT 07/20/2024 2:39 PM EDT Alonzo Persaud MD LAB BLOOD ORDERABLES Final Result [facility] [address] [place] [address], * Hepatitis C Antibody w/Reflex to HCV RNA, Quantitative PCR (06/04/2022 5:43 PM EDT) Hepatitis C Antibody NON-REACT BEOT NON-REACT BETO 06/05/2022 3:44 AM EDT [facility] Signal To Cut-Off 0.02 <1.00 06/05/2022 3:44 AM EDT [facility] Comment: HCV antibody was non-reactive. There is no laboratory evidence of HCV infection. In most cases, no further action is required. However, if recent HCV exposure is suspected, a test for HCV RNA (test code 53673) is suggested. For additional information please refer to http://education.Pharmapod/faq/ZWF21e9 (This link is being provided for informational/ educational purposes only.) Blood Structure of peripheral vein / Unknown Venipuncture / Unknown 06/04/2022 5:43 PM EDT 06/04/2022 6:08 PM EDT Narrative [facility] - 06/05/2022 3:44 AM EDT [facility] Received Date: us Alonzo Persaud MD LAB BLOOD ORDERABLES Final Result [facility] [address], [place] [address], [facility] [address] [facility] [address], [place] [address], [place] [phone] from Last 3 Months or Most Recently Relevant to Health Maintenance [place] [id number] Care Teams Civil Service Clerk Relationship Specialty Start Date End Date Cristian Chacon MD [address] [place] [id number] PCP - General 06/04/22
--- OUTSIDE RECORDS SUMMARY | 2024-07-21 08:18 | XMS_ITS | Clinical Summary ---
Author Organization [employer] Address [address] [place] [address] Care Team Providers Care Chef De Partie Name Role Phone Cristian Chacon MD Primary [...] (Ambien) 10 MG tablet TOME ОЛЕГ TABLETA TOS LOS D AL ACOSTARSE CUANDO SEA NECESARIO [...] (Folvite) 1 MG tablet TOME ОЛЕГ TABLETA LOS D 022 Active ketorolac (Acular) 0.5 [...] at bedtime for muscle spasms. 30 tablet 02/04/2 025 Active albuterol (2.5 MG/3ML) 0.083% nebulizer [...] complication, without long-term current use of insulin ([facility]) Use to test blood sugar 1 times daily 100 each 025 2025 Active Lancets 33G miscIndications:T ype 2 diabetes mellitus without complication, without long-term current use of insulin ([facility]) 1 Units before breakfast. 100 each Active [...] THEN CALL 911 0.6 mL 025 Active butalbital-acetam inophen-caffeine 50-325-40 MG tablet Take 1 tablet by mouth every 8 (eight) hours if needed for headaches. 90 tablet 025 2024 Active loratadine (Claritin) 10 MG tablet Take [...] Plan (08/10/2023 4:03 PM EDT): Referral to Clinical Geneticist for further evaluation of symptoms. 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 F/U SAFETY FIRE BOSS S/P US PELVIS 07/04/13 DUE PELVIC PAIN. 2.9 X 3.8 X 3 CM LEFT ADNEXAL CYSTIC LESION, MOST LIKELY HEMORRHAGIC OVARIAN CYST. F/U SAFETY FIRE BOSS Left carpal tunnel syndrome 06/22/2013 Vitamin D deficiency disease 02/03/2012 Overview (05/29/2022): Overview: =17. =17. Allergic rhinitis due to allergen 2008 Gastroesophageal reflux disease without esophagi tis 07/13/2007 Anxiety and depression 05/13/2007 Overview (03/07/2022): Overview: F/U [facility] (DR. NANCE). F/U [facility] (DR. NANCE). Hypothyroidism 05/13/2007 Overview (05/29/2022): [...] Insomnia 05/13/2007 Overview (05/29/2022): Overview: F/U AT [facility] (DR. NANCE). F/U AT [facility] (DR. NANCE). Mild persistent asthma 05/13/2007 Assessment & Plan (05/17/2024 2:45 PM EDT): On inhalers, no current exacerbation, continue same therapy Encounters Date Type Department Care Team Description 07/18/2024 Orders Only [facility] [address] [place] [address] Cristian Chacon MD 07/18/2024 Telephone [facility] [address] [place] [address] Cristian Chacon MD Care Coordination (C3 initial assessment/ enrollment) 07/18/2024 Patient Outreach [address] [address] Cristian Chaocn MD Care Coordination ([facility]/W Nino Conroy [facility] assessment completed) 07/15/2024 Patient Outreach [address] [address] Cristian Chacon MD Care Coordination ([facility]/WILLIAM Garza initial assessment appt reminder ) 07/13/2024 Orders Only [facility] [address] [place] [address] Roderick Weiner MD 07/05/2024 3:45 PM EDT Office Visit [facility] [address] [place] [address] Eduarda Villeda MD Other headache syndrome (Primary Dx); Chronic neck pain; Bee sting allergy; Type 2 diabetes mellitus without complication, without long-term current use of insulin ([facility]); Nausea; Dizziness 07/05/2024 Refill [facility] [address] [place] [address] Eduarda Villeda MD Bee sting allergy 07/05/2024 Travel 07/01/[address] [address] Cristian Chacon MD Nurse Triage; Transition Of Care (Tcm) 07/01/2024 Orders Only [facility] [address] [place] [address] Roderick Weiner MD 06/30/2024 Orders Only [facility] [address] [place] [phone] Roderick Weiner MD 06/27/2024 Patient Outreach [address] [address] Cristian Chacon MD Care Coordination ([facility]/WILLIAM Garza initial assessment rescheduled ) 06/23/2024 Patient Outreach [address] [address] Cristian Chacon MD Care Coordination ([facility]WILLIAM Khanna initial assessment appt reminder ) 06/16/2024 2:00 PM EDT Office Visit [facility] [address] [place] [address] Cassie Mahajan MD Viral pharyngitis (Primary Dx); Vaginal candidiasis; Fibromyalgia 06/16/2024 Travel 06/16/2024 Telephone [facility] [address] [place] [address] Cristian Chacon MD Nurse Triage 06/08/2024 Patient Outreach [facility] [address] [place] [phone] Cristian Chacon MD Care Coordination ([facility]WILLIAM Khanna initial assessment rescheduled) 05/24/2024 Telephone [facility] [address] [place] [address] Cristian Chacon MD 05/24/2024 Refill [facility] [address] [place] [address] Cristian Chacon MD Primary hypertension 05/18/2024 Orders Only GENERIC EXTERNAL DATA DEPARTMENT Provider, Generic External Data 05/17/2024 1:30 PM EDT Office Visit [facility] [address] [place] [address] Cristian Chacon MD Screening for colon cancer (Primary Dx); Primary hypertension; Acquired hypothyroidism; Pre-diabetes; Mild persistent asthma, unspecified whether complicated; Mixed stress and urge urinary incontinence 05/17/2024 Travel 05/16/2024 Orders Only GENERIC EXTERNAL DATA DEPARTMENT Provider, Generic External Data 05/13/2024 Patient Outreach [facility] [address] [place] [phone] Cristian Chacon MD Care Coordination (WILLIAM Mckinney initial assessment rescheduled) 05/13/2024 Population Health Risk Score [facility] Department [address] [place] [phone] Provider, Population Health Generic 05/11/2024 Telephone [facility] [address] [place] [address] Cristian Chacon MD status check 05/10/2024 3:30 PM EDT Office Visit [facility] [address] [place] [address] Eduarda Villeda MD Other chest pain (Primary Dx); Multiple joint pain; Moderate persistent asthma without complication; Type 2 diabetes mellitus without complication, without long-term current use of insulin ([facility]); Fall, initial encounter 05/10/2024 Travel 05/04/2024 Patient Outreach [facility] [address] [place] [address] Cristian Chacon MD Care Coordination (Outreach) 05/04/2024 Telephone [facility] [address] [place] [address] Cristian Chacon MD ER Follow-up 05/03/2024 Orders Only GENERIC EXTERNAL DATA DEPARTMENT Provider, Generic External Data 05/03/2024 Patient Outreach [facility] [address] [place] [address] Cristian Chacon MD Care Coordination (Outreach) 05/02/2024 Orders Only [facility] External Provider, [facility] 04/27/2024 Patient Outreach [facility] [address] [place] [address] Cristian Chacon MD Care Coordination (Outreach) 04/26/2024 11:00 AM EST Office Visit [facility] [address] [place] [address] Aida Rae MD Moderate persistent asthma without complication (Primary Dx) 04/26/2024 Travel 04/26/2024 Patient Outreach [facility] [address] [place] [address] Cristian Chacon MD Care Coordination (Outreach) from Last 3 Months Immunizations Immunization Administration Dates Next Due Influenza injectable quadriv [...] FOBT 1970 HIV Screening 1970 Sigmoidoscopy 1970 Disability Screening 1970 Eye Exam 1978 Hepatitis C Screening [...] history exists Depression Screening 12/21/2024 12/22/2023, 12/22/19 Diabetes: Urine Protein Screening 04/20/2025 04/20/2024, 03/23/2024, 11/11/2023, Additional history exists Alcohol/Substance Use Screening 05/17/2025 05/17/2024 Mammogram 05/26/2025 05/27/2023, 05/01, 05/20/2022, Additional history exists Diabetes: Foot Exam 06/16/2025 06/16/2024, 06/16/2024, 06/16/2024, Additional history exists Tobacco Screening 07/06/2025 07/06/2024 SDOH Screening 07/18/2025 07/18/2024 Cervical Cancer Screening 04/17/2027 HPV/Cotest 04/17/2027 Pap Smear 04/17/2027 04/17/2022 RSV Patients and Patients Aged 60 years [...] age to complete this topic Meningococcal B Vaccine Aged Out No l onger eligible based on patient's age to complete [...] US PELVIS TRANSVAGINAL Routine 9:16 AM EST HM HEMOGLOBIN A1C Routine 11/18/2023 10: 40 AM EDT BI MAMMOGRAM SCREENING TOMOSYNTHESIS BILATERAL Routine 05/27/2023 9:10 AM EDT HM PAP/HPV Routine 04/17/2022 3:44 PM EST LIPID PANEL, STANDARD Routine 11/26/2021 9:36 AM EDT from Last 3 Months or Most Recently Relevant to Health Maintenance Results * XR Chest 2 Views (06/30/2024 3:30 PM EDT) Anatomical Region Laterality Modality Chest Radiographic Amanda ging Historical Provider IMG XR PROCEDURES Final R esult * ECG 12 lead (06/30/2024 10:02 AM EDT) Only the most recent of2 resultswithin the time period is included. Historical Provider ECG ORDERABLES Final Res ult * Influenza B (ID NOW Rapid Molecular) (06/16/2024 3:29 PM EDT) Influenza B Negative Negative, Indeterminate [facility] QC Media Lot # [facility] Comment:[id number] Lot# Expiration Date [facility] Comment:09/29/2024 Swab 06/16/2024 3:29 PM EDT Cassie Mahajan MD POINT OF CARE TEST ENTER/EDIT ORDERABLES Final Result [facility] [address] [place] [phone] * Influenza A (ID NOW Rapid Molecular) (06/16/2024 3:29 PM EDT) [facility] Influenza A Negative Negative, Indeterminate [facility] QC Media Lot # [facility] Comment:[id number] Lot# Expiration Date [facility] Comment:09/29/2024 Swab 06/16/2024 3:29 PM EDT Cassie Mahajan MD POINT OF CARE TEST ENTER/EDIT ORDERABLES Final Result [facility] [address] [place] [address] [phone] * POCT ID NOW Rapid Strep A manually resulted (06/16/2024 3:28 PM EDT) [facility] Rapid Strep A Screen Negative Negative, None Detected QC Media Lot # Comment:[id number] Lot# Expiration Date Comment:01/29/2025 Swab 06/16/2024 3:28 PM EDT Cassie Mahajan MD POINT OF CARE TEST ENTER/EDIT ORDERABLES Final Result * POCT glucose manually resulted (06/16/2024 3:28 PM EDT) [facility] Glucose Blood, POC 112 60 - 200 mg/dL QC Media Lot # Comment:[id number] Lot# Expiration Date Comment:09/01/2024 Blood Capillary blood specimen / Unknown 06/16/2024 3:28 PM EDT Cassie Mahajan MD POINT OF CARE TEST ENTER/EDIT ORDERABLES Final Result * POCT Rapid COVID Ag (06/16/2024 3:27 PM EDT) [facility] Rapid COVID Ag Negative QC Media Lot # Comment:[id number] Lot# Expiration Date Comment:09/09/2025 Swab 06/16/2024 3:27 [...] Appearance, UA clear QC Media Lot # Comment:[id number] Lot# Expiration Date Comment:11/29/2024 Urine 06/16/2024 3:26 PM EDT Cassie Mahajan MD POINT OF CARE TEST ENTER/EDIT ORDERABLES Final Result * (ABNORMAL) Basic Metabolic Panel (05/18/2024 9:59 AM EDT) Only the most recent of2 resultswithin the time period is included. Sodium 140 135 - 145 mmol/L [facility] Potassium 4.5 3.3 - 5.1 mmol/L [facility] Chloride 109(H) 96 - 108 mmol/L [facility] Carbon Dioxide 24 22 - 29 mmol/L [facility] Anion Gap 12 12 - 20 [facility] Urea Nitrogen (BUN) 20(H) 9 - 16 mg/dL [facility] Creatinine, Serum 0.65 0.5 - 1.4 mg/dL [facility] Estimated Glomerular Filt Rate >60 [facility] Comment:Chronic Kidney Disea se: Estimated GFR < 60 mL/min/1.25v2Jqbmlz Kidney Disease: Estimated GFR < 15 mL/min/1.73m2 Glucose 110 60 - 115 mg/dL [facility] Calcium 9.0 8.4 - 10.2 mg/dL [facility] 05/18/2024 9:59 AM EDT 05/18/2024 10:00 AM EDT us Generic External Data Provider LAB BLOOD ORDERAB LES Final Result Performing Organization Address [facility] Co de Phone Number [facility] [address] [place] [phone] * Cancelled Chemistry (05/16/2024 10:26 AM EDT) [facility] Cancelled Chemistry SEE NOTE [facility] Comment:SPECIMEN HEMOLYZED 05/16/2024 10:2 6 AM EDT 05/16/2024 10:26 AM EDT Generic External Data Provider HISTORICAL/NON OR DERABLE LABS Final Result Performing Organization Address [facility] de Phone Number [facility] [address] [place] [phone] * Glucose, Whole Blood (05/03/2024 5:15 PM EST) [facility] Glucose, Whole Blood 76 60 - 115 mg/dL [facility] Comment:METER #: [id number] 05/03/2024 5:15 PM EST 05/03/2024 5:51 PM EST Generic External Data Provider LAB BLOOD ORDERAB LES Final Result Performing Organization Address [facility] de Phone Number [facility] [address] [place] [phone] * High Sensitivity Troponin I (05/03/2024 5:08 PM EST) Only the most recent of2 resultswithin the time period is included. [facility] TROPONIN I HIGH SENSITIVITY 7.4 <3.5 - 17.0 ng/L [facility] Comment:The [place] high sens itivity Troponin-I results should beused in conjunction with other diagnostic information suchas ECG, clinical observations and information, and patientsymptoms to aid in the diagnosis of MD. 05/03/2024 5:08 PM EST 05/03/2024 5:12 PM EST Generic External Data Provider LAB BLOOD ORDERAB LES Final Result Performing Organization Address [facility] Co de Phone Number [facility] [address] [place] [phone] * Prothrombin Time-INR (05/03/2024 5:08 PM EST) Prothrombin Time 11.7 10.9 - 12.4 SEC [facility] INTERNATIONAL NORM RATIO 1.0 0.9 - 1.1 [facility] Comment:INTERNATIONAL NORMAL IZED RATIO (INR) [...] Final Result Performing Organization Address [facility] de Phone Number [facility] [address] [place] [phone] * SARS-CoV-2 RNA, Influenza A/B, and RSV RNA, Ql NAAT (05/03/2024 11:04 AM EST) Influenza A PCR NEGATIVE Negative [facility] Influenza B PCR NEGATIVE Negative [facility] Resp Syncy Virus RNA Qual PCR NEGATIVE Negative [facility] SARS COV2 PCR NEGATIVE Negative [...] use by authorized laboratories.Testing performed on the [employer] GeneXpert utilizingreal-time RT-PCR.All SARS CoV2 and positive influenza A/B results arereported to [facility]. 05/03/2024 11:0 4 AM EST 05/03/2024 11:12 AM EST us Generic External Data Provider LAB MICROBIOLOGY - GENERAL ORDERABLES Final Result [facility] [address] [place] [address] [phone] * (ABNORMAL) CBC auto differential (05/03/2024 11:04 AM EST) White Blood Count 8.1 4.8 - 10.8 X10*3/uL [facility] Red Blood Count 4.07(L) 4.20 - 5.50 X10*6/uL [facility] Hemoglobin 11.9(L) 12.0 - 16.0 g/dl [facility] Hematocrit 35.8(L) 37.0 - 47.0 % [facility] Mean Corpuscular Volume 88.0 80.0 - 98.0 fL [facility] Mean Corpuscular Hemoglobin 29.2 27.0 - 33.0 pg [facility] Mean Corpuscular HGB Conc 33.2 31.0 - 35.0 g/dl [facility] Red Cell Distribution Width 14.4 11.0 - 16.0 % [facility] Platelet Count 339 160 - 400 X10*3/uL [facility] Mean Platelet Volume 9.3(L) 9.4 - 12.3 fL [facility] Neutrophils Percent Auto 83.7(H) 45 - 73 % [facility] Imm Gran Pct Auto 0.6(H) 0.0 - 0.4 % [facility] Lymphocytes Percent Auto 11.5(L) 20 - 40 % [facility] Monocytes Percent Auto 3.6 2 - 11 % [facility] Eosinophils Percent Auto 0.5 0 - 4 % [facility] Basophils Percent Auto 0.1 0 - 2 % [facility] NRBC Pct Auto 0.0 0.0 - 0.2 /100WBC [facility] Neutrophils Absolute Auto 6.7 2.0 - 8.3 x10*3/uL [facility] Imm Gran Abs Auto 0.05(H) 0.00 - 0.03 X10*3/uL [facility] Lymphocytes Absolute Auto 0.9(L) 1.2 - 4.9 X10*3/uL [facility] Monocytes Absolute Auto 0.3 0.1 - 1.2 X10*3/uL [facility] Eosinophils Absolute Auto 0.0 0.0 - 0.4 X10*3/uL [facility] Basophils Absolute Auto 0.0 0.0 - 0.2 X10*3/uL [facility] NRBC Abs Auto 0.000 0.0 - 0.012 X10*3/uL [facility] 05/03/2024 11:0 4 AM EST 05/03/2024 11:12 AM EST us Generic External Data Provider LAB BLOOD ORDERAB LES Final Result [facility] [address] [place] [phone] * (ABNORMAL) C-reactive Protein (05/03/2024 11:04 AM EST) C Reactive Protein 3.79(H) < or = 0.50 mg/dL [facility] 05/03/2024 11:0 4 AM EST 05/03/2024 11:12 AM EST us Generic External Data Provider LAB BLOOD ORDERAB LES Final Result Performing Organization Address [facility] de Phone Number [facility] [address] [place] [phone] * B Type Natriuretic Peptide (BNP) (05/03/2024 11:04 AM EST) B Type Natriuretic Peptide 44 <100 pg/mL [facility] Comment:For those patients w ho are being treated with Natrecor(nesiritide, recombinant BNP), BNP testing should beperformed at least two hours post treatment in order toensure that only endogenous levels of BNP are detected. 05/03/2024 11:0 4 AM EST 05/03/2024 11:12 AM EST us Generic External Data Provider LAB BLOOD ORDERAB LES Final Result Performing Organization Address [facility] Number [facility] [address] [place] [phone] * Magnesium (05/03/2024 11:04 AM EST) Magnesium 2.1 1.6 - 2.6 mg/dL [facility] 05/03/2024 11:0 4 AM EST 05/03/2024 11:12 AM EST us Generic External Data Provider LAB BLOOD ORDERAB LES Final Result Performing Organization Address [facility] de Phone Number [facility] [address] [place] [phone] * Lipase (05/03/2024 11:04 AM EST) Lipase 37 8 - 78 U/L [facility] 05/03/2024 11:0 4 AM EST 05/03/2024 11:12 AM EST us Generic External Data Provider LAB BLOOD ORDERAB LES Final Result Performing Organization Address [facility]/State/ZIP Co de Phone Number [facility] [address] [place] [phone] * Creatine Kinase, Total (05/03/2024 11:04 AM EST) Creatine Kinase Total 35 26 - 140 U/L [facility] 05/03/2024 11:0 4 AM EST 05/03/2024 11:12 AM EST Generic External Data Provider LAB BLOOD ORDERAB LES Final Result Performing Organization Address [facility] de Phone Number [facility] [address] [place] [phone] * Hepatic Function Panel (05/03/2024 11:04 AM EST) Bilirubin, Total 0.5 0.0 - 1.0 mg/dL [facility] Bilirubin, Direct 0.2 0.0 - 0.5 mg/dL [facility] Aspartate Amino Transferase 14 5 - 31 U/L [facility] Alanine Aminotransferase 13 0 - 31 U/L [facility] Total Protein 7.0 6.5 - 8.0 g/dL [facility] Albumin Level 3.5 3.5 - 5.0 g/dL [facility] Alkaline Phosphatase 54 39 - 117 U/L [facility] 05/03/2024 11:0 4 AM EST 05/03/2024 11:12 AM EST Generic External Data Provider LAB BLOOD ORDERAB LES Final Result Performing Organization Address [facility] de Phone Number [facility] [address] [place] [phone] * XR Chest 1 View (05/03/2024 10:40 AM EST) Anatomical Region Laterality Modality Chest Radiographic Amanda ging 05/03/2024 10:4 0 AM EST Narrative 05/03/2024 11:39 AM EST ? [facility] [facility] ?[address] ?[place] [address] ?XRay Report ? Signed ? Patient: Liriano,Scarlett ?MR#: [id number] ?? 354 ? : 1970 ?Acct:[id number] ? Age/Sex: 53 / F ?ADM Date: 05/03/24 ? Loc: HO.ED ? Attending Dr: ? Ordering Physician: Dana Montenegro DO ?? Date of Service: 05/03/24 ?? Procedure(s): XR chest 1V ?? Accession Number(s): [id number] ? cc: Cristian Chacon MD; Dana Montenegro [...] DD/ 1040 ? TD/TT: 05/03/24 1100 ? Patternmaker Plaster: MSM ? Procedure Note Makenna Vazquez - 05/03/[address] [address] XRay Report Signed Patient: Scarlett Liriano#: [id number] 354 : 1970Acct:[id number] Age/Sex: 53 / FADM Date: 05/03/24 Loc: HO.ED Attending Dr: Ordering Physician: Dana Montenegro DO Date of Service: 03/04/25 Procedure(s): XR chest 1V Accession Number(s): [id number] cc: Cristian Chacon MD; Dana Montenegro DO [...] 05/03/24 1136 DD/ 1040 TD/TT: 05/03/24 1100 Patternmaker Plaster: LEATHA [facility] External Provider IMG XR PROCEDURES Final Result * US Pelvis Transvaginal (05/03/2024 9:16 AM EST) Anatomical Region Laterality Modality Pelvis Ultrasound 05/03/2024 9:16 AM EST Narrative 05/03/2024 9:18 AM EST ? [facility] ?[address] ?[place] [address] ? Ultrasound Report ? Signed ? Patient: Heri,Scralett ?MR#: [id number] ?? 354 ? : 1970 ?Acct:[id number] ? Age/Sex: 53 / F ?ADM Date: 03/03/25 ? Loc: HO.US ? Attending Dr: Gavino Wynne MD ? Ordering Physician: Gavino Wynne MD ?? Date of Service: 05/02/24 ?? Procedure(s): US pelvic and transvaginal ?? Accession Number(s): [id number] ? cc: Saskia Rosas MD; Gavino Wynne [...] OV> ?05/03/24 0917 ? DD/ ? TD/TT: 05/03/24915 ? Patternmaker Plaster: ? Procedure Note Donotconinterpreter, Image - 05/03/2024 [place] [address] Ultrasound Report Signed Patient: Scarlett LirianoMR#: [id number] 354 : 1970Acct:[id number] Age/Sex: 53 / FADM Date: 05/02/24 Loc: HO.US Attending Dr: Gavino Wynne MD Ordering Physician: Gavino Wynne MD Date of Service: 05/02/24 Procedure(s): US pelvic and transvaginal Accession Number(s): [id number] cc: Saskia Rosas MD; Gavino Wynne MD [...] in OV> 05/03/24916 DD/ 5 TD/TT: 05/03/24915 Patternmaker Plaster: [facility] External Provider IMG US PROCEDURES Final Result * BI Mammogram Screening Tomosynthesis Bilateral (05/27/2023 9:10 AM EDT) Anatomical Region Laterality Modality Breast Bilateral Mammography 05/27/2023 9:10 AM EDT Narrative 06/23/2023 5:53 AM EDT ? [facility] [place] ? [address] ?[place] [address] ? Mammography Report ? Signed ? Patient: Liriano,Scarlett ?MR#: [id number] ?? 354 ? : 1970 ?Acct:[id number] ? Age/Sex: 52 / F ?ADM Date: 05/27/23 ? Loc: HO.MAMMO ? Attending Dr: Cristian Martinez MD ? Ordering Physician: Cristian Chacon MD ?Res ?? ults: 1Negative ? Date of Service: 05/27/23 ?Follow Up: 1 Year From Orig ?? inal Mammogram ? Procedure(s): MM tomosynthesis screening BI ?? Accession Number(s): [id number] ? cc: Cristian Chacon MD ? EXAMINATION: [...] 0549 ? DD/ 0910 ? TD/TT: ? Patternmaker Plaster: ? Procedure Note [place], Image - 06/23/2023 [facility] [address] [place] [address] Dr. Alejo, DIONISIO [id number] Mammography Report Signed Patient: Harish Liriano#: [id number] : 1970Acct:[id number] Age/Sex: 52 / FADM Date: 05/27/23 Loc: [facility] Attending Dr: Cristian Martinez MD Ordering Physician: Cristian Chacon ults: 1Negative Date of Service: 05/27/23Follow Up: 1 Year From Orig inal Mammogram Procedure(s): MM tomosynthesis screening BI Accession Number(s): [id number] cc: Cristian Chacon MD EXAMINATION: MM SCREENING [...] in OV> 06/23/23 0549 DD/ 0910 TD/TT: Patternmaker Plaster: Cristian Martinez MD IMG BI PROCEDURES Final Result * HM PAP/HPV (04/17/2022 3:44 PM EST) Historical Provider HEALTH MAINTENANCE Final Result * (ABNORMAL) LIPID PANEL, STANDARD [...] ?? Lopez GODFREY et al. KAILEE. 2013;310(19): [id number] ?? ([email or web address]) Non-HDL Cholesterol 121 <130 mg/dL (calc) [facility] Comment: For patients with diabetes plus 1 major ASCVD risk ?? factor, treating to a non-HDL-C goal of <100 mg/dL ?? (LDL-C of <70 mg/dL) is considered a therapeutic ?? option. Triglycerides 91 <150 mg/dL [facility] 11/26/2021 9:36 AM EDT us Cristian Martinez MD LAB BLOOD ORDERABL ES Final Result [facility] [address] from Last 3 Months or Most Recently Relevant to Health Maintenance Insurance C3 Care Teams Chef [place] Relationship Specialty Start Date End Date Cristian Chacon MD [address] [place] [phone] PCP - General Internal Medicine 03/17/19 Ivy Payne Legal CollectorTruck Crane Operator Helper 11/26/23
--- OUTSIDE RECORDS SUMMARY | 2024-07-21 08:18 | XMS_ITS | Encounter Summary ---
Author Organization [facility] Address [address] [place] [address] 7 [place] [address] Care Team Providers Care Sealing And Canceling Machine Operator Name Role Phone Cristian Chacon [...] on filedocumented in this encounter Care Teams Sealing And Canceling Machine Operator Relationship Specialty Start Date End Date Cristian Chacon MD [address] [place] [address] PCP - General Internal Medicine 03/17/19 Ivy Payne Pot WasherDental Aide 03/03/23 11/25/23 Ivy Payne Auto Tire RecapperDental Aide 11/26/23 documented as of this encounter
--- OUTSIDE RECORDS SUMMARY | 2024-07-21 08:18 | XMS_ITS | Encounter Summary ---
Author Organization [employer] Address [address] [facility] 7 [place] [address] Care Team Providers Care College Athletic Director Name Role Phone Cristian Chacon MD Primary Care Prov ider Reason for Visit * Reason Comments Care Coordination C3CM/ELEN Sandoval assessment completed Encounter Details Date Type Department Care Team (Latest Contact Info) Description 07/18/2024 Patient Outreach [facility] [address] [place] [address] Cristian Chacon MD [address] [place] [phone] Care Coordination (JOSE ANTONIO/ELEN Khanna assessment completed) Social History Tobacco Use Types Packs/Day Years [...] encounter Progress Notes * Nino Conroy - 07/18/2024 10:57 AM EDT [facility] Nino Conroy met with the patient to assess SDOH needs. Patient's name, and address confirmed. Patient denies any SDOH needs at this time. No further questions or concerns. A follow up callwill be placed within 10 days, patient agrees with plan. documented in this encounter Plan of Treatment Not on file documented as of this encounter Visit Diagnoses Not on filedocumented in this encounter Additional Health Concerns Assessment Noted Time PHQ-9 Depression Total Score: 16 024 1:19 PM EDT documented as of this encounter Care Teams College Athletic Director Relationship Specialty Start Date End Date Cristian Chacon MD [address] [place] [phone] PCP - General Internal Medicine 03/17/19 Ivy Payne Die WelderConstruction Rigger 11/26/23 documented as of this encounter
--- OUTSIDE RECORDS SUMMARY | 2024-07-21 08:18 | XMS_ITS | Encounter Summary ---
Author Organization [employer] Address [address] [facility] 7t [place] [address] Care Team Providers Care Appliance Painter And Refinisher Name Role Phone Cristian Chacon MD Primary Care Prov ider Encounter Details Date Type Department Care Team ([facility] Contact Info) Description 01/11/2024 Orders Only [facility] [address] [place], [place] [phone] Provider, MD Roderick Social History Tobacco Use [...] documented as of this encounter Care Teams Appliance Painter And Refinisher Relationship Specialty Start Date End Date Cristian Chacon MD [address] [place] [phone] PCP - General Internal Medicine 03/17/19 Ivy Payne Cloth Examiner HandRecovery Rn 11/26/23 documented as of this encounter
--- OUTSIDE RECORDS SUMMARY | 2024-07-21 08:18 | XMS_ITS | Encounter Summary ---
Author Organization [employer] Address [address] [facility] 7t [place] [address] Care Team Providers Care Travel Pt Name Role Phone Cristian Chacon MD Primary Care Prov ider Reason for Visit * Reason Comments Med Change Request Encounter Details Date Type Department Care Team ([facility] Contact Info) Description 08/31/2023 Refill [facility] [address] [place], [place] [phone] Cristian Chacon MD [address] [place] [address] Social History Tobacco Use Types Packs/Day Years [...] documented as of this encounter Care Teams Travel Pt Relationship Specialty Start Date End Date Cristian Chacon MD [address] [place] [phone] PCP - General Internal Medicine 03/17/19 Ivy Payne Business Performance SpecialistHand Heel Seat Fitter 03/03/23 11/25/23 Ivy Payne Early Breastfeeding Care SpecialistHand Heel Seat Fitter 11/26/23 documented as of this encounter
--- OUTSIDE RECORDS SUMMARY | 2024-07-21 08:18 | XMS_ITS | Encounter Summary ---
Author Organization [employer] Address [address] [facility] 7t [place] [address] Care Team Providers Care Bit Sharpener Name Role Phone Cristian Chacon MD Primary Care Prov ider Encounter Details Date Type Department Care Team ([facility] st Contact Info) Description 12/22/2023 Orders Only [facility] [address] [place], [place] [phone] Cristian Chacon MD [address] [place] [address] Social History Tobacco Use Types Packs/Day Years [...] AM EDT documented as of this encounter Functional Status * Over the past 2 weeks, how often have you been bothered by any of the following problems? Question Answer Date of Assessment Author Patient Health Questionnaire-2 Score 6 12/01 1:19 PM EDT Zoey Mae MA * If you checked off any problems on this questionnaire so far, Question Answer Date of Assessment Author How difficult have these problems made it for you to do your work, take care of things at home, or get along with other people? Somewhat difficult 12/22/2023 1:19 PM EDT Zoey Mae M A * Over the past 2 weeks, how often have you been bothered by any of the following problems? Question Answer Date of Assessment Author Little interest or pleasure in doing things Nearly every day 12/22/2023 1:19 PM VICTORIAT Zoey Mae MA Feeling down, depressed, or hopeless Nearly every day 12/22/2023 1:19 PM VICTORIAT Zoey Mae M A Trouble falling or staying asleep, or sleeping too much Nearly every day 12/22/2023 1:19 PM VICTORIAT Zoye Mae M A Feeling tired or having little energy Nearly every day 12/22/2023 1:19 PM VICTORIAT Zoey Mae M A Poor appetite or overeating More than half the days 12/22/2023 1:19 PM VICTORIAT Zoey Mae MA Feeling bad about yourself - or that you are a failure or have let yourself or your family down Not at all 12/22/2023 1:19 PM Zoey Ha M A Trouble concentrating on things, such as reading the newspaper or watching television More than half the days 12/22/2023 1:19 PM EDT Zoey Mae MA Moving or speaking so slowly that other people could have noticed? Or the opposite - being so fidgety or restless that you have been moving around a lot more than usual. Not at all 12/22/2023 1:19 PM EDT Zoey Mae M A Thoughts that you would be better off or hurting yourself in some way Not at all 12/22/2023 1:19 PM EDT Zoey Mae MA Patient Health Questionnaire-9 Score 16 12/22/2023 1:19 PM EDT Zoey Mae MA documented as of this encounter Plan of Treatment Not on file documented as of this encounter Visit Diagnoses Not on filedocumented in this encounter Additional Health Concerns Assessment Noted Time PHQ-9 Depression Total Score: 16 024 1:19 PM EDT documented as of this encounter Care Teams Bit Sharpener Relationship Specialty Start Date End Date Cristian Chacon MD [address] [place] [phone] PCP - General Internal Medicine 03/17/19 Ivy Payne Cloud Software EngineerTruck Mechanic 11/26/23 documented as of this encounter
--- OUTSIDE RECORDS SUMMARY | 2024-07-21 08:18 | XMS_ITS | Clinical Summary ---
Author Organization [facility] Address [address] [place] [address] Phone Care Team Providers Care Administrative Executive Name Role Phone Cristian Chacon Primary Care Provide r Allergies Active Allergy Reactions Criticality Noted Date Comments Aspirin 02/17/2017 Cyclobenzaprine 08/24/2017 Duloxetine 08/24/2017 Meperidine 08/24/2017 Morphine Nausea And Vomiting 02/17/2017 Penicillin G 02/17/2017 Medications docusate sodium [...] Active LORAZEPAM ORAL Take by mouth. Active butalbital-acet aminophen-caffe ine (FIORICET, ESGIC) 50-325-40 mg per tablet Take 1 tablet by mouth every 6 (six) hours if needed for headaches for up to 5 days. 20 tablet 5 07/06/19 25 Active Problems Problem Noted Date Diagnosed Date Painful scar 08/24/2017 Breast asymmetry 07/03/2017 Depression with anxiety 02/18/2017 Gastroesophageal reflux disease without esophagi tis 02/18/2017 Hypothyroidism 02/18/2017 Encounters Date Type Department Care Team Description 06/30/2024 2:23 PM EDT - 06/30/2024 6:00 PM EDT Emergency [facility] Emergency [address] [place] [address] Jaime Erickson MD Nonintractable headache, unspecified chronicity pattern, unspecified headache type (Primary Dx); Cervicalgia of uqtjplnz-egmqwlm-brmyu region Discharge Disposition: Home or Self Care from Last 3 Months Surgical History Surgery Date Site/Laterality Comments CARPAL TUNNEL RELEASE Left CATARACT EXTRACTION SECTION HYSTERECTOMY CYST REMOVAL on foot BLADDER bladder mesh BREAST REDUCTION Medical History Medical History Date Comments Fibromyalgia Asthma Diabetes mellitus ([facility]/HCC V24, CMS/[facility] V28) Hypertension Migraine Lupus (systemic lupus erythematosus) (CMS/[facility] V2 4, CMS/[facility] V28) GERD (gastroesophageal reflux disease) Gastritis Anxiety Depression [...] Sign Reading Time Taken Comments Blood Pressure 120/81 06/30/2024 3:57 PM EDT Pulse 90 06/30/2024 3:57 PM EDT Temperature 36.6 ??C (97.9 ??F) 06/30/2024 3:57 PM ED T Respiratory Rate 20 06/30/2024 3:57 PM EDT Oxygen Saturation 97% 06/30/2024 3:57 PM EDT Inhaled Oxygen Concentration - - Weight 90.7 kg (200 lb) 06/30/2024 1:22 PM EDT Height 157.5 cm (5' 2 ) 06/30/2024 1:22 PM EDT Body Mass Index 36.58 06/30/2024 1:22 PM EDT Plan of Treatment Health Maintenance [...] Blood Sugar Control Test (HGBA1C) 05/17/2024 11/18/2023 COVID-19 Vaccine (6 - Mixed Product risk season) 2024 12/18/2023, 01/04/2022, 03/22/2021, Additional history exists Depression Screening 12/21/2024 12/22/2023 Diabetes: Annual Urine Albumin-Creatinine Ratio (uACR) 04/20/2025 04/20/2024, 04/20/2024, 03/23/2024, Additional history exists Diabetes: Annual GFR (Glomerular Filtration Rate) 06/30/2025 06/30/2024, 05/18/2024, 05/03/2024, Additional history exists Hypertension/CHF/CAD Annual BMP Blood Test 06/30/2025 06/30/2024, 05/18/2024, 05/03/2024, Additional history exists Cholesterol Screening (Lipid Panel) 11/26/2026 11/26/2021, 11/24/2014 HIV Screening Completed 09/29/2013 Hepatitis C Screening Completed 06/04/2022 Influenza Vaccine Completed 12/10/2023, , 01/04/2022, Additional history exists HIB Vaccines Aged Out [...] Name Priority Date/Time Associated Diagnosis Comments ECG ANNOTATED 07/04/2024 POCT GLUCOSE BLOOD Routine 06/30/2024 5: 23 PM EDT LU URINE CULTURE TUBE STAT 06/30/2024 4:03 PM EDT URINALYSIS WITH REFLEX MICROSCOPIC AND CULTURE STAT 06/30/2024 4:03 PM EDT URINALYSIS WITH REFLEX MICROSCOPIC AND CULTURE STAT 06/30/2024 4:03 PM EDT TROPONIN I HIGH SENSITIVITY STAT 06/30/2024 2:51 PM EDT XR CHEST 2 VIEWS STAT 06/30/2024 2:37 PM EDT CBC WITH AUTO DIFFERENTIAL STAT 06/30/2024 1:34 PM EDT B-TYPE NATRIURETIC PEPTIDE STAT 06/30/2024 1:34 PM EDT MAGNESIUM STAT 06/30/2024 1:34 PM EDT LIPASE STAT 06/30/2024 1:34 PM EDT COMPREHENSIVE METABOLIC PANEL STAT 06/30/2024 1:34 PM EDT CBC AND DIFFERENTIAL STAT 06/30/2024 1:34 PM EDT TROPONIN I HIGH SENSITIVITY STAT 06/30/2024 1:34 PM EDT ECG 12-LEAD STAT 06/30/2024 1:27 PM EDT [id number], RSV, FLU A AND B QUALITATIVE RT-PCR, INTERNAL LAB STAT 06/30/2024 1:24 PM EDT DIANE SCREENING DIGITAL Routine 02/27/2018 5:16 PM EST Encounter for screening mammogram for malignant neoplasm of breast from Last 3 Months or Most Recently Relevant to Health Maintenance Results * ECG-Annotated (07/04/2024) us Provider Onbase ECG ORDERABLES Final Result * (ABNORMAL) POCT Glucose, blood (06/30/2024 5:23 PM EDT) [facility] Glucose POCT 150(H) 70 - 100 mg/dL 06/30/2024 5:25 PM EDT [facility] Blood Capillary blood specimen / Unknown 06/30/2024 5:23 PM EDT 06/30/2024 5:26 PM EDT Jaime Erickson MD LAB POINT OF CARE T EST DOCKED DEVICE UNSOLICITED RESULTS Final Result [facility] [address] [place] [address], [place] [phone] * Urinalysis with reflex microscopic and culture (06/30/2024 4:03 PM EDT) [facility] Specific [place] Urine 1.018 1.003 - 1.030 LAB URINALYSIS - AUTOMATED METHOD 06/30/2024 4:49 PM [facility] pH, Urine 7.5 5.0 - 8.0 pH LAB URINALYSIS - AUTOMATED METHOD 06/30/2024 4:49 PM [facility] Leukocytes, Urine Negative Negative LAB URINALYSIS - AUTOMATED METHOD 06/30/2024 4:49 PM [facility] Nitrite, Urine Negative Negative LAB URINALYSIS - AUTOMATED METHOD 06/30/2024 4:49 PM [facility] Protein, Urine Trace <=Trace mg/dL LAB URINALYSIS - AUTOMATED METHOD 06/30/2024 4:49 PM [facility] Glucose, Urine Negative Negative mg/dL LAB URINALYSIS - AUTOMATED METHOD 06/30/2024 4:49 PM [facility] Ketones, Urine Negative Negative mg/dL LAB URINALYSIS - AUTOMATED METHOD 06/30/2024 4:49 PM EDT [facility] Urobilinogen, Urine 1.0 0.2 - 1.0 mg/dL LAB URINALYSIS - AUTOMATED METHOD 06/30/2024 4:49 PM EDT [facility] Bilirubin, Urine Negative Negative LAB URINALYSIS - AUTOMATED METHOD 06/30/2024 4:49 PM EDT [facility] Blood, Urine Negative Negative LAB URINALYSIS - AUTOMATED METHOD 06/30/2024 4:49 PM EDT [facility] Urine Urine specimen obtained by clean catch procedure / Unknown Non-blood Collection / Unknown 06/30/2024 4:03 PM EDT 06/30/2024 4:29 PM EDT Jaime Erickson MD LAB URINE ORDERABLES Final Result Performing Organization Address City/[facility]/ZIP Co de Phone Number [facility] [address] [place] [address], [place] [phone] * Lu urine culture tube (06/30/2024 4:03 PM EDT) Pathologist [facility] Extra Tube Hold for add-ons. 06/30/2024 6:01 PM EDT [facility] Comment:Auto resulted. Urine Urine specimen obtained by clean catch procedure / Unknown Non-blood Collection / Unknown 06/30/2024 4:03 PM EDT 06/30/2024 4:29 PM EDT Jaime Erickson MD LAB URINE ORDERABLES Final Result Performing Organization Address City/[facility]/ZIP Co de Phone Number [facility] [address] [place] [address], [place] [phone] * Troponin I high sensitivity (06/30/2024 2:51 PM EDT) Only the most recent of2 resultswithin the time period is included. High Sensitivity Troponin I 5 <=54 ng/L LAB CHEMISTRY METHOD 06/30/2024 4:06 PM EDT [facility] Blood Venous blood specimen / Unknown Venipuncture / Unknown 06/30/2024 2:51 PM EDT 06/30/2024 3:08 PM EDT Narrative [facility] - 06/30/2024 4:06 PM EDT High levels of biotin in samples may falsely decrease hsTroponin values. ??Use caution when interpreting hsTroponin results in patients taking biotin who exhibit renal impairment (eGFR <60) or in patients taking more than 20 mg/day of biotin. us Jaime Erickson MD LAB BLOOD ORDERABLES Final Result Performing Organization Address City/State/[facility] Co de Phone Number [facility] [address] [place] [address], [place] [phone] * XR Chest 2 Views (06/30/2024 2:37 PM EDT) Anatomical Region Laterality Modality Body Radiographic Amanda ging 06/30/2024 2:50 PM EDT Impressions 06/30/2024 2:52 PM EDT FINDINGS/IMPRESSION: No consolidation or effusion. ??Stable cardiomediastinal contours without congestive heart failure. ??Cervical fusion hardware. -------- FINAL REPORT -------- Dictated By: Letty Nicole Dictated Date: 06/30/2024 14:50 ET Assigned Physician: Letty Nicole Reviewed and Electronically Signed By: Letty Nicole Signed Date: 06/30/2024 14:52 ET Workstation ID: [id number] Transcribed By: Self Edit Transcribed Date: 06/30/2024 14:50 ET Narrative 06/30/2024 2:52 PM EDT XR CHEST 2 VIEWS INDICATION: chest pain TECHNIQUE: XR CHEST 2 VIEWS COMPARISON: No priors available. Procedure Note Letty Nicole MD - 06/30/2024 XR CHEST 2 VIEWS INDICATION: chest pain TECHNIQUE: XR CHEST 2 VIEWS COMPARISON: No priors available. IMPRESSION: FINDINGS/IMPRESSION: No consolidation or effusion. Stablecardiomediastinal contours without congestive heart failure. Cervicalfusion hardware. -------- FINAL REPORT -------- Dictated By: Letty Nicole Dictated Date: 06/30/2024 14:50 ET Assigned Physician: Letty Nicole Reviewed and Electronically Signed By: Letty Nicole Signed Date: 06/30/2024 14:52 ET Workstation ID: [id number] Transcribed By: Self Edit Transcribed Date: 06/30/2024 14:50 ET us Jaime Erickson MD IMG XR PROCEDURES Final Res ult * (ABNORMAL) CBC auto differential (06/30/2024 1:34 PM EDT) WBC 8.1 4.8 - 10.8 K/mcL LAB HEMETOLOGY METHOD 06/30/2024 2:43 PM EDT [facility] RBC 4.30 3.80 - 4.80 M/mcL LAB HEMETOLOGY METHOD 06/30/2024 2:43 PM EDT [facility] Hemoglobin 12.2 11.5 - 16.0 g/dL LAB HEMETOLOGY METHOD 06/30/2024 2:43 PM EDT [facility] Hematocrit 38.8 35.0 - 47.0 % LAB HEMETOLOGY METHOD 06/30/2024 2:43 PM EDT [facility] MCV 89.6 79.0 - 98.0 FL LAB HEMETOLOGY METHOD 06/30/2024 2:43 PM EDT [facility] MCH 28.2 27.0 - 32.0 pcg LAB HEMETOLOGY METHOD 06/30/2024 2:43 PM EDT [facility] MCHC 31.4(L) 32.0 - 37.0 g/dL LAB HEMETOLOGY METHOD 06/30/2024 2:43 PM EDT [facility] RDW 14.5 11.0 - 15.0 % LAB HEMETOLOGY METHOD 06/30/2024 2:43 PM [facility] Platelets 346 130 - 400 K/mcL LAB HEMETOLOGY METHOD 06/30/2024 2:43 PM [facility] MPV 9.6 7.0 - 11.0 FL LAB HEMETOLOGY METHOD 06/30/2024 2:43 PM [facility] NRBC 0.0 <1.0 % LAB HEMETOLOGY METHOD 06/30/2024 2:43 PM [facility] NRBC Absolute 0.00 <0.10 K/mcL LAB HEMETOLOGY METHOD 06/30/2024 2:43 PM [facility] Neutrophils Relative 91.9 % LAB HEMETOLOGY METHOD 06/30/2024 2:43 PM [facility] Lymphocytes Relative 5.1 % LAB HEMETOLOGY METHOD 06/30/2024 2:43 PM [facility] Monocytes Relative 1.4 % LAB HEMETOLOGY METHOD 06/30/2024 2:43 PM [facility] Eosinophils Relative 0.9 % LAB HEMETOLOGY METHOD 06/30/2024 2:43 PM [facility] Basophils Relative 0.2 % LAB HEMETOLOGY METHOD 06/30/2024 2:43 PM [facility] Immature Granulocytes Relative 0.5 % LAB HEMETOLOGY METHOD 06/30/2024 2:43 PM [facility] Neutrophils Absolute 7.44(H) 1.50 - 7.00 K/mcL LAB HEMETOLOGY METHOD 06/30/2024 2:43 PM [facility] Lymphocytes Absolute 0.41(L) 1.00 - 5.00 K/mcL LAB HEMETOLOGY METHOD 06/30/2024 2:43 PM [facility] Monocytes Absolute 0.11(L) 0.20 - 1.00 K/mcL LAB HEMETOLOGY METHOD 06/30/2024 2:43 PM EDT [facility] Eosinophils Absolute 0.07 0.00 - 0.50 K/mcL LAB HEMETOLOGY METHOD 06/30/2024 2:43 PM EDT [facility] Basophils Absolute 0.02 0.00 - 0.20 K/[facility] LAB HEMETOLOGY METHOD 06/30/2024 2:43 PM EDT [facility] Immature Granulocytes Absolute 0.04(H) 0.00 - 0.03 K/[facility] LAB HEMETOLOGY METHOD 06/30/2024 2:43 PM EDT [facility] Blood Venous blood specimen / Unknown Venipuncture / Unknown 06/30/2024 1:34 PM EDT 06/30/2024 2:20 PM EDT Jaime Erickson MD LAB BLOOD ORDERABLES Final Result Performing Organization Address City/[facility]/ZIP Co de Phone Number [facility] [address] [place] [address], [place] [phone] * B-type natriuretic peptide (06/30/2024 1:34 PM EDT) BNP 25 <=100 pcg/mL LAB CHEMISTRY METHOD 06/30/2024 3:12 PM EDT [facility] Blood Venous blood specimen / Unknown Venipuncture / Unknown 06/30/2024 1:34 PM EDT 06/30/2024 2:20 PM EDT Jaime Erickson MD LAB BLOOD ORDERABLES Final Result Performing Organization Address City/[facility]/ZIP Co de Phone Number [facility] [address] [place] [address], [place] [phone] * Magnesium (06/30/2024 1:34 PM EDT) Magnesium 2.0 1.9 - 2.6 mg/dL LAB CHEMISTRY METHOD 06/30/2024 3:09 PM EDT [facility] Blood Venous blood specimen / Unknown Venipuncture / Unknown 06/30/2024 1:34 PM EDT 06/30/2024 2:20 PM EDT Jaime Erickson MD LAB BLOOD ORDERABLES Final Result Performing Organization Address [facility]/ZIP Co de Phone Number [facility] [address] [place] [address], [place] [phone] * Lipase (06/30/2024 1:34 PM EDT) Pathologist [facility] Lipase 28 13 - 75 unit/L LAB CHEMISTRY METHOD 06/30/2024 3:09 PM EDT [facility] Blood Venous blood specimen / Unknown Venipuncture / Unknown 06/30/2024 1:34 PM EDT 06/30/2024 2:20 PM EDT Jaime Erickson MD LAB BLOOD ORDERABLES Final Result Performing Organization Address [facility] Co de Phone Number [facility] [address] [place] [address], [place] [phone] * (ABNORMAL) Comprehensive metabolic panel (06/30/2024 1:34 PM EDT) Pathologist [facility] Sodium 137 133 - 145 mmol/L LAB CHEMISTRY METHOD 06/30/2024 3:09 PM EDT [facility] Potassium 4.7 3.5 - 5.5 mmol/L LAB CHEMISTRY METHOD 06/30/2024 3:09 PM EDT [facility] Chloride 105 96 - 110 mmol/L LAB CHEMISTRY METHOD 06/30/2024 3:09 PM EDT [facility] CO2 26 21 - 32 mmol/L LAB CHEMISTRY METHOD 06/30/2024 3:09 PM EDT [facility] Anion Gap 6 3 - 11 LAB CHEMISTRY METHOD 06/30/2024 3:09 PM [facility] Glucose 193(H) 70 - 100 mg/dL LAB CHEMISTRY METHOD 06/30/2024 3:09 PM [facility] BUN 15 5 - 25 mg/dL LAB CHEMISTRY METHOD 06/30/2024 3:09 PM [facility] Creatinine 0.76 0.50 - 1.10 mg/dL LAB CHEMISTRY METHOD 06/30/2024 3:09 PM [facility] eGFR 93 >=60 mL/min/1. 73m2 LAB CHEMISTRY METHOD 06/30/2024 3:09 PM [facility] Comment:Calculation based on the??Chronic Kidney Disease Epidemiology Collaboration (CKD-EPI) equation refit??without adjustment for race. BUN/Creatinine Ratio 19.7 LAB CHEMISTRY METHOD 06/30/2024 3:09 PM [facility] Calcium 8.7 8.5 - 10.5 mg/dL LAB CHEMISTRY METHOD 06/30/2024 3:09 PM [facility] AST (SGOT) 15 10 - 42 unit/L LAB CHEMISTRY METHOD 06/30/2024 3:09 PM [facility] ALT (SGPT) 17 10 - 60 unit/L LAB CHEMISTRY METHOD 06/30/2024 3:09 PM [facility] Alkaline Phosphatase 49 42 - 121 unit/L LAB CHEMISTRY METHOD 06/30/2024 3:09 PM [facility] Total Protein 7.0 6.0 - 8.0 g/dL LAB CHEMISTRY METHOD 06/30/2024 3:09 PM [facility] Albumin 3.0(L) 3.2 - 5.0 g/dL LAB CHEMISTRY METHOD 06/30/2024 3:09 PM [facility] Total Bilirubin 0.4 0.0 - 1.4 mg/dL LAB CHEMISTRY METHOD 06/30/2024 3:09 PM EDT [facility] Blood Venous blood specimen / Unknown Venipuncture / Unknown 06/30/2024 1:34 PM EDT 06/30/2024 2:20 PM EDT Jaime Erickson MD LAB BLOOD ORDERABLES Final Result Performing Organization Address [facility]/ZIP Co de Phone Number [facility] [address] [place] [address], [place] [phone] * ECG 12 lead (06/30/2024 1:27 PM EDT) Pathologist [facility] Ventricular Rate ECG 96 BPM GEMUSE Atrial Rate 96 BPM GEMUSE P-R Interval 122 ms GEMUSE QRS Duration 68 ms GEMUSE Q-T Interval 354 ms GEMUSE QTc 447 ms GEMUSE P Wave Sterling 70 degrees GEMUSE R Sterling 10 degrees GEMUSE T Sterling 18 degrees GEMUSE ECG Interpretation Normal sinus rhythm Low voltage QRS Abnormal ECG When compared with ECG of 14-APR-2024 00:41, No significant change was found Confirmed by KIMBERLY WARNER ([id number]) on 06/30/2024 6:19:44 PM GEMUSE 06/30/2024 1:27 PM EDT 06/30/2024 6:19 PM EDT Jaime Erickson MD ECG ORDERABLES Final Resul t Performing Organization Address [facility] Co de Phone Number GEMUSE * [id number], RSV, Influenza A and B qualitative RT-PCR (06/30/2024 1:24 PM EDT) Pathologist [facility] Influenza A PCR Not Detected Not Detected LAB MICROBIOLOGY METHOD 06/30/2024 3:06 PM EDT [facility] Influenza B PCR Not Detected Not Detected LAB MICROBIOLOGY METHOD 06/30/2024 3:06 PM EDT [facility] RSV PCR Not Detected Not Detected LAB MICROBIOLOGY METHOD 06/30/2024 3:06 PM EDT [facility] SARS COV-2 Not Detected Not Detected LAB MICROBIOLOGY METHOD 06/30/2024 3:06 PM EDT [facility] Swab Nasopharyngeal structure / Unknown Non-blood Collection / Unknown 06/30/2024 1:24 PM EDT 06/30/2024 2:19 PM EDT Narrative [facility] - 06/30/2024 3:06 PM EDT Disclaimer: ??Testing was performed using the [employer] GeneXpert Xpress SARS-CoV-2 _Flu_RSV PLUS PCR assay. ??The manner in which this information is used to guide patient care is the responsibility of the healthcare provider. ??Results should be correlated with the clinical history, epidemiological data, and other data available to the clinician evaluating the patient. ??Negative results do not preclude infection. ??This test has been authorized by the FDA under an Emergency Use Authorization (EUA). ??This test is only authorized for the duration of time the declaration that circumstances exist justifying the authorization of the emergency use of in vitro diagnostic tests for detection of SARS-CoV-2 virus and/or diagnosis of COVID-19 infection under section 564 (b) (1) of the Act, 21 U.S.C 360bbb-3 (b) (1), unless the authorization is terminated or revoked sooner. ?? Reference Range: Not Detected Fact sheet for Healthcare providers can be found at https://www.fda.gov/media/624326/download. ?? Fact sheet for Healthcare patients can be found at https://www.fda.gov/media/140615/download. us Jaime Erickson MD LAB MICROBIOLOGY - GENERAL ORDERABLES Final Result [facility] [address] [place] [address], * DIANE SCREENING DIGITAL (02/27/2018 5:16 PM EST) Anatomical Region Laterality Modality Mammography 02/24/2018 10:4 4 AM EST Narrative 02/27/2018 5:16 PM EST [facility] Diagnostic Imaging Department [address] [place] [address] Patient: ??NEUMANNSCARLETT GABRIEL ?/Age/Sex: 1970 - 47 - F Unit#: ??[id number] ? Location/Status: ??SPDIMAM/REG CLI ? Mnemonic/Ordering Site: ??DIGSC/SPMAM Ordering Physician: ??GABRIELA VILLEDA MD [facility] Screening Digital - 02/27/18 - 0758 INDICATION: SCREENING COMPARISON: [facility] mammograms dating back to ?? 08/05/2012 FINDINGS: CC and MLO views of the breasts were obtained, using full field digital mammography with 3D tomosynthesis views in the MLO projection. Computer aided detection with the [employer] 7.2-H was employed. History of reduction mammoplasty [...] date for the next mammogram. (G0202 / [id number]) , ??[id number] Dictating Physician: ??YONG WEATHERS MD Electronically Signed by: ??YONG WEATHERS MD Dic Date/Time: ??02/27/181711 Sign date/Time: ??02/27/181715 Procedure Note Yong Weathers MD - 02/18/2022 [facility] Diagnostic Imaging Department [address] [place] [address] Patient: SCARLETT NEUMANN /Age/Sex: 1970 - 47 - F Unit#: [id number] Location/Status: [facility] Mnemonic/Ordering Site: [facility] Ordering Physician: GABRIELA VILLEDA MD [facility] Screening Digital - 02/27/18 - 0758 INDICATION: SCREENING COMPARISON: [facility] mammograms dating back to 08/05/2012 FINDINGS: CC and MLO views of the breasts were obtained, using full field digital mammography with 3D tomosynthesis views in the MLO projection. Computeraided detection with the [employer] 7.2-H was employed. History of reduction mammoplasty [...] a target date for the next mammogram. G0202 [id number] , [id number] Dictating Physician: YONG WEATHERS MD Electronically Signed by: YONG WEATHERS MD Dic Date/Time: 02/27/181711 Sign date/Time: 02/27/181715 Gabriela Villeda MD IMG BI PROCEDURES Final R esult from Last 3 Months or Most Recently Relevant to Health Maintenance Insurance MEDICAID - [place] Care Teams Administrative Executive Relationship Specialty Start Date End Date Cristian Chacon [address] [place], [place] PCP - General Internal Medicine 10/17/20
--- OUTSIDE RECORDS SUMMARY | 2024-07-21 08:18 | XMS_ITS | Encounter Summary ---
Author Organization [employer] Address [address] [facility] [address] [place] [address] Care Team Providers Care Biopsychologist Name Role Phone Cristian Chacon MD Primary Care Prov ider Encounter Details Date Type Department Care Team ([facility] st Contact Info) Description 09/04/2023 Orders Only [facility]S [address] [place], [place] [phone] Cristian Chacon MD [address] [place] [address] Social History Tobacco Use Types Packs/Day Years [...] documented as of this encounter Care Teams Biopsychologist Relationship Specialty Start Date End Date Cristian Chacon MD [address] [place] [phone] PCP - General Internal Medicine 03/17/19 Ivy Payne Combatant SwimmerPenciller 03/03/23 11/25/23 Ivy Payne Lens BlockerPenciller 11/26/23 documented as of this encounter
--- OUTSIDE RECORDS SUMMARY | 2024-07-21 08:18 | XMS_ITS | Encounter Summary ---
Author Organization [employer] Address [address] [facility] [address] [place] [address] Care Team Providers Care Gis Scientist Name Role Phone Cristian Chacon MD Primary Care Prov ider Reason for Visit * Reason Onset Date Comments New med script 04/01/2022 Encounter Details Date Type Department Care Team ([facility] st Contact Info) Description 04/01/2022 Telephone [facility] [address] [place], [place] [phone] Cristian Chacon MD [address] [place] [address] New med script Social History Tobacco Use [...] on filedocumented in this encounter Care Teams Gis Scientist Relationship Specialty Start Date End Date Cristian Chacon MD [address] [place] [address] PCP - General Internal Medicine 03/17/19 Ivy Payne Electrical SoldererBalancer 03/03/23 11/25/23 Ivy Payne Manager CommercialBalancer 11/26/23 documented as of this encounter
--- OUTSIDE RECORDS SUMMARY | 2024-07-21 08:19 | XMS_ITS | Clinical Summary ---
Author Organization [facility] Address [address] [place] [address] Care Team Providers Care Paving Foreman Name Role Phone Dirk Mcdowell RD Primary Care Provider [phone] Source Comments PLEASE NOTE, if this patient [...] /3 mL (0.083 %) nebulizer solution Per seed and fertilizer specialist 0 5 Active FLOVENT HFA 220 mcg/actuation inhaler Per seed and fertilizer specialist 3 5 Active fluticasone (FLONASE) 50 mcg/actuation nasal spray Per seed and fertilizer specialist 3 5 Active hydrOXYzine (ATARAX) 25 mg tablet Per seed and fertilizer specialist 0 5 Active montelukast (SINGULAIR) 10 mg tablet Per seed and fertilizer specialist 3 5 Active terbinafine HCl (LAMISIL) 250 mg tablet Per seed and fertilizer specialist 1 5 Active ketoconazole (NIZORAL) 2 % cream Per seed and fertilizer specialist 3 5 Active metroNIDAZOLE (METROCREAM) 0.75 % cream Per seed and fertilizer specialist 3 5 Active traZODone (DESYREL) 50 mg tablet Per Psych 4 5 Active traMADol (ULTRAM) 50 mg tablet Per [facility] 0 5 Active cromolyn (OPTICROM) 4 % ophthalmic solution Per seed and fertilizer specialist 3 5 Active baclofen (LIORESAL) 10 [...] LESION, MOST LIKELY HEMORRHAGIC OVARIAN CYST. 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 Allergic rhinitis due to allergen 2008 GERD (gastroesophageal reflux disease) 8 Hypothyroidism 05/13/2007 Overview (09/29/2013): + CARLOS EDUARDO'S THYROIDITIS, ENDO F/U with Dr Mcdowell Anxiety and depression 05/13/2007 Overview (02/01/2013): F/U [facility] (DR. NANCE). Insomnia 05/13/2007 Overview (02/01/2013): F/U AT [facility] (DR. NANCE). Mild persistent asthma ([facility]) 05/13/2007 Chronic neck pain LBP [...] 06/19/2022, 0 11/24/2014, 11/24/2014, Additional history exists [id number] ( season) 2023 03/22/2021, 07/22/2020, 07/01/2020 Imm-Influenza [...] TSH CASCADE 2.25 0.40 - 4.00 uIU/ml [facility] Blood specimen (specimen) Blood / Unknown 03/06/2015 11:48 AM EST 03/06/2015 11:50 AM EST [facility] - 03/07/2015 1:30 PM EST [facility] [employer] [address] [place] [address] [place] [id number] ORD# [id number] Sophia Blue MD LAB - BLOOD RICH W Final Result Performing Organization Address City/[facility]/ZIP Co de Phone Number [address] [address], [place] [phone] * (ABNORMAL) LIPID PANEL (11/24/2014 11:00 AM EDT) CHOLESTEROL 166 0 - 200 mg/dL [facility] TRIGLYCERIDES 86 0 - 150 mg/dL [facility] HDL CHOLESTEROL 46 >40 mg/dL [facility] LDL CALCULATED 103(H) 0 - 100 mg/dL [facility] TC-HDLC RATIO 3.6 0 - 4.4 mg/dL [facility] Blood specimen (specimen) Blood / Unknown 11/24/2014 11:00 AM EDT 11/24/2014 11:06 AM EDT Narrative [facility] - 11/24/2014 12:35 PM EDT [facility] [employer] [address] [place] [address] PT ID [id number] ORD# [id number] Sophia Blue MD LAB - BLOOD RICH W Final Result [address] [address], [place] [phone] * COMPRE METAB PANEL (11/24/2014 11:00 AM EDT) GLUCOSE 88 70 - 100 mg/dL [facility] Comment:Reference range appl icable to fasting specimens only BUN 22 5 - 25 mg/dL [facility] CREAT 0.67 0.5 - 1.1 mg/dL [facility] GLOMERULAR FILTRATION RATE > 60 [facility] Comment: If patient is -Egyptian, multiply result by 1.21 Chronic Kidney Disease: < 60 ml/min/1.73 square meters Kidney Failure: < 15 ml/min/1.73 square meters SODIUM 140 133 - 145 mEq/L [facility] POTASSIUM 4.6 3.5 - 5.5 mEq/L [facility] CHLORIDE 105 96 - 110 mEq/L [facility] CO2 30 21 - 32 mEq/L [facility] ANION GAP 5 3 - 11 [facility] CALCIUM 9.6 8.5 - 10.5 mg/dL [facility] TOTAL PROTEIN 7.5 6.0 - 8.0 G/dL [facility] ALBUMIN 4.5 3.2 - 5.0 G/dL [facility] BILI, TOTAL 0.4 0.0 - 1.4 mg/dL [facility] SGOT 22 10 - 42 U/L [facility] SGPT 18 10 - 60 U/L [facility] ALK PHOS 74 42 - 121 U/L [facility] Blood specimen (specimen) Blood / Unknown 11/24/2014 11:00 AM EDT 11/24/2014 11:06 AM EDT Narrative [facility] - 11/24/2014 12:35 [place] [address] PT ID [id number] ORD# [id number] us Sophia Blue MD LAB - BLOOD DRA De Jesus Final Result [address] [address], * HEPATITIS A,B,C PANEL (09/29/2013 3:21 PM EDT) HEPATITIS B SURFACE ANTIBODY NEGATIVE NEGATIVE [facility] HEPATITIS B SURFACE ANTIGEN NEGATIVE NEGATIVE [facility] HEPATITIS C VIRUS ANTIBODY NEGATIVE NEGATIVE [facility] HEPATITIS A ANTIBODY TOTAL NEGATIVE NEGATIVE [facility] HEPATITIS B CORE ANTIBODY NEGATIVE NEGATIVE [facility] Blood specimen (specimen) Blood / Unknown 09/29/2013 3:21 PM EDT 09/29/2013 4:24 PM EDT [facility] - 09/29/2013 9:50 PM EDT [employer] [address] [place] [address] PT ID [id number] ORD# [id number] Sophia Blue MD LAB - BLOOD DRA De Jesus Edited Result - Final [facility] [address] [place] [address], [place] [phone] * HIV-1 & HIV-2 ANTIBODIES (09/29/2013 3:21 PM EDT) [facility] HIV 1 AND 2 ANTIBODY SCREEN NEGATIVE NEGATIVE [facility] Blood specimen (specimen) Blood / Unknown 09/29/2013 3:21 PM EDT 09/29/2013 4:24 PM EDT [facility] - 09/30/2013 12:03 PM EDT [facility] [address] [place] [address] PT ID [id number] ORD# [id number] Sophia Blue MD LAB - BLOOD DRA De Jesus Final Result [facility] [address] [place] [address], [place] [phone] from Last 3 Months or Most Recently Relevant to Health Maintenance Insurance [employer] Care Teams Paving Foreman Relationship Specialty Start Date End Date Dirk Mcdowell [address] [place] [address] PCP - General Nutrition 08/02/15
--- OUTSIDE RECORDS SUMMARY | 2024-07-21 08:19 | XMS_ITS | Encounter Summary ---
Author Organization [employer] Address [address] [facility] [address] [place] [address] Care Team Providers Care Casting Machine Set Up Operator Name Role Phone Cristian Chacon MD Primary Care Prov ider Reason for Visit * Reason Onset Date Comments ER Follow-up 03/23/2024 Nurse Triage 03/23/2024 Encounter Details Date Type Department Care Team ([facility] st Contact Info) Description 03/23/2024 Telephone [facility] MEDICINE [address] [place] [address] Cristian Chacon MD [address] [place] [address] ER Follow-up; Nurse Triage Social History Tobacco [...] 11:51 AM EST [place]riage [place] [id number] Jose Alberto Pt was seen in [facility] ED 03/19/24 , (report is on [...] is offered an apt this Thursday at [facility] with provider but, requests to only see [...] AM EST Tc from pt child care coordinator calling to report ED visit on : Date: 03/19 Hospital: [facility] Seen for: Chest pain, Abdominal pain. Symptomatic Yes (Can't walk normally) *if yes message should go to Triage Patient advised will forward to team nurse for follow up [phone] syriac documented in this encounter Plan of Treatment Not on file documented as of this encounter Visit Diagnoses Not on filedocumented in this encounter Additional Health Concerns Assessment Noted Time PHQ-9 Depression Total Score: 16 024 1:19 PM EDT documented as of this encounter Care Teams Casting Machine Set Up Operator Relationship Specialty Start Date End Date Cristian Chacon MD [address] [place] [id number] PCP - General Internal Medicine 03/17/19 Ivy Payne Welding Machine Operator Helper GasDesign Coordinator 11/26/23 documented as of this encounter
--- OUTSIDE RECORDS SUMMARY | 2024-07-21 08:19 | XMS_ITS | Encounter Summary ---
Author Organization [employer] Address [address] [place] [address] Care Team Providers Care Tool Chaser Name Role Phone Cirstian Chacon MD Primary Care Prov ider Encounter Details Date Type Department Care Team (Late st Contact Info) Description 03/22/2024 Orders Only [facility] MED [facility] PEDS [address] [place], [place] [id number] Provider, MD Roderick Social History Tobacco Use [...] documented as of this encounter Care Teams Tool Chaser Relationship Specialty Start Date End Date Cristian Chacon MD [address] [place] [address] PCP - General Internal Medicine 03/17/19 Ivy Payne Mortar WorkerTelegraph Mechanic 11/26/23 documented as of this encounter
--- OUTSIDE RECORDS SUMMARY | 2024-07-21 08:19 | XMS_ITS | Encounter Summary ---
Author Organization [employer] Address [address] [facility] [address] [place] [address] Care Team Providers Care Retirement Sales Consultant Name Role Phone Cristian Chacon MD Primary Care Prov ider Reason for Visit * Reason Comments Med Refill Encounter Details Date Type Department Care Team ([facility] Contact Info) Description 02/27/2024 Refill [facility] MED & PEDS [address] [place], [place] [phone] Cristian Chacon MD [address] [place] [address] Social History Tobacco Use Types Packs/Day Years [...] documented as of this encounter Care Teams Retirement Sales Consultant Relationship Specialty Start Date End Date Cristian Chacon MD [address] [place] [address] PCP - General Internal Medicine 03/17/19 Ivy Payne Electrical Design TechnicianManager Enrollment 11/26/23 documented as of this encounter
--- OUTSIDE RECORDS SUMMARY | 2024-07-21 08:19 | XMS_ITS | Encounter Summary ---
Author Organization [facility] Address [address] [place] [address] Care Team Providers Care Director Of Operations For Therapy Name Role Phone Cristian Chacon MD Primary Care Prov ider Reason for Visit * Reason Comments Follow-up Pain * Consultation (Routine) - Closed Specialty Diagnoses / Procedures Referred By Lurdes t Referred To Contact Rheumatology Diagnoses Arthritis Alonzo Persaud MD [address] [place] [address] Phone: tel: fax: Referral ID Status Reason Start Date Expiration Date Visits Re quested Visits Authorized [id number] Closed 11/03/2023 05/04/2025 6 6 Encounter Details Date Type Department Care Team ([facility] st Contact Info) Description 07/20/2024 1:40 PM EDT Follow-Up [facility] [address] [place] [address] [phone] [employer] Equipment Operator: Alonzo Baez MD [address] [place] [address] [phone] FELI positive (Primary Dx); Arthralgia, unspecified joint; Fibromyalgia Social History Tobacco Use Types Packs/Day Years [...] Mass Index 36.58 07/20/2024 12:19 PM EDT documented in this encounter Progress Notes * Alonzo Persaud MD - 07/20/2024 1:04 PM EDT Images from the original note were not included. Rheumatology Follow Up Note This is an in-person encounter. Patient ID: Scralett Liriano is a 54 y.o. female HPI: Returns in follow-up for long complex history of possible inflammatory arthritis and question lupusas well as fibromyalgia, has been evaluated by other rheumatologists: -in she [...] direct trigger of her diffuse pains in 2018. -at 4 months old she had meningitis. -reports permanent weakness of the left leg and arm possibly from the past accidents/meningitis -had a CODE BLUE 6 to 7 years prior to meeting us and had to be resuscitated. -diagnosed with fibromyalgia. -was sent to a information systems audit manager Dr. Mcmahan at [facility]. They said that there was not much that they could do for fibromyalgia. She went back to [facility]. The doctor had labs done and hergastroenterologist in [place] also did lab work. Apparently, one of the tests came back positive for lupus. She then switched information systems audit manager to Dr. Smith. She had had some prednisone for asthma. When they gave her the prednisone all of her aches and pains dissipated. patient told me that the prednisone did not help much below 10 mg a day. She was then trialed on gabapentin. The gabapentin didnot help with any of her pains. She took 20 mg for 2 days of the prednisone and felt fine again. was later trialed on methotrexate and hydroxychloroquine. She does [...] change any of her pains. She was thenplaced on a prednisone taper which again helped [...] in outside lab but when repeated at [facility] it was negative. Previously, the patient [...] did not recall this. -was referred to [facility] ultrasound and she had synovial thickening of [...] cuff in need of surgery -Osteoarthritis and [id number] to her knee on x-rays -her workup [...] normal complements Interval History: We are using court interpreter [employer] #[id number]. She was back in the emergency room. She had asthma, chest pain and diffuse pains again. She was able to see cardiology. There was no inflammation around the heart. They did a monitor. Everything was okay. But the chest pain still does not go away all the time. She remains on 10 mg of prednisone daily. Without that medication at that dose she has the diffuse pains that return. She also takes diclofenac or naproxen and will alternate it. They were going to try Mounjaro but her insurance would not cover it. She remains with a purpuric lesions to the forearms. She does not pick at these areas. She has a dermatology appointment shortly. She is thinking of having some shoulder surgery in a few months time she has occe-ju-magr to that shoulder. Her other providers are asking if CellCept would be appropriate for her. She remains on the hydroxychloroquine. I reviewed and updated the following portions of the chart this encounter: Tobacco Med Hx Surg Hx Fam Hx Soc Hx Current Medications (Taking) as of 07/20/2024 acetaminophen (TYLENOL) 500 mg tablet PLEASE SEE ATTACHED FOR DETAILED DIRECTIONS Advair HFA 230-21 mcg/actuation inhaler 2 puffs 2 times a day. blood pressure test kit-large kit Check blood pressure on arm as directed DAILY gizcvcblvl-etlapbsscgqku-brvsdcdw (FIORICET) 50-325-40 mg tablet Take 1 tablet by mouth every 8 hours as needed. diclofenac (VOLTAREN) 75 mg EC tablet Take [...] (FOLVITE) 1 mg tablet TOME ОЛЕГ TABLETA D gabapentin (NEURONTIN) 300 mg capsule Take 300 mg by mouth 3 times a day. hydrocortisone 2.5% cream Apply topically to the affected area 2 times a day. hydrOXYchloroQUINE (PLAQUENIL) 200 mg tablet TOME ОЛЕГ TABLETA D ketoconazole (NIZORAL) 2% cream Apply 1 Application topically to the affected area daily. lidocaine (LIDODERM) 5% patch Apply 1 patch topically to the affected area once a day. loratadine (CLARITIN) 10 mg tablet Take 10 mg by mouth once daily as needed. LORazepam (ATIVAN) 0.5 mg tablet Take 0.5 mg by mouth 2 times a day as needed. meclizine (ANTIVERT) 25 mg tablet Take 25 [...] mg total) by mouth once a day. SUMAtriptan (IMITREX) [...] 90.7 kg (200 lb). Her temperature is 36.8 ??C (98.3 ??F). Her blood pressure is 110/69 and her pulse is 80. Physical Exam Vitals reviewed. Constitutional: General: She [...] Normal breath sounds. No wheezing or rhonchi. Musculoskeletal: General: No swelling or tenderness. Cervical back: Neck supple. Comments: There is no tenderness or swelling to the PIPs, MCPs, wrist, elbows, shoulders, knees, ankles, MTPs Lymphadenopathy: Cervical: No cervical adenopathy. Skin: General: Skin is warm. Capillary Refill: Capillary refill takes less than 2 seconds. Coloration: Skin is not jaundiced. Findings: No rash. Neurological: Mental Status: She is alert and oriented to person, place, and time. Motor: No weakness. Gait: Gait normal. Psychiatric: Mood and Affect: Mood normal. Behavior: Behavior normal. Thought Content: Thought content normal. Appointment on 07/20/2024 Component Date Value Ref Range Status C Reactive Protein 07/20/2024 27.0 (H) <=9.9 mg/L Final Sed Rate 07/20/2024 28 <30 mm/Hr mm/Hr Final WBC 07/20/2024 5.4 3.8 - 10.8 10*3/uL Final RBC 07/20/2024 4.36 3.80 - 5.10 10*6/uL Final Hemoglobin 07/20/2024 12.3 11.7 - 15.5 g/dL Final Hematocrit 07/20/2024 39.0 35.0 - 45.0 % Final MCV 07/20/2024 89.4 80.0 - 100.0 fL Final MCH 07/20/2024 28.2 27.0 - 33.0 pg Final MCHC 07/20/2024 31.5 (L) 32.0 - 36.0 g/dL Final RDW 07/20/2024 13.9 11.0 - 15.0 % Final Platelets 07/20/2024 388 140 - 400 10*3/uL Final MPV 07/20/2024 9.4 7.5 - 12.5 fL Final NA 07/20/2024 141 135 - 145 mmol/L Final K 07/20/2024 3.9 3.5 - 5.3 mmol/L Final Cl 07/20/2024 106 98 - 107 mmol/L Final CO2 07/20/2024 25 22 - 32 mmol/L Final Anion Gap 07/20/2024 10 5 - 15 Final Glucose 07/20/2024 116 (H) 65 - 99 mg/dL Final Creatinine 07/20/2024 0.77 0.50 - 1.20 mg/dL Final Calcium 07/20/2024 8.7 8.6 - 10.5 mg/dL Final Total Protein 07/20/2024 6.9 6.0 - 8.0 g/dL Final Albumin 07/20/2024 3.4 (L) 3.5 - 5.2 g/dL Final Bilirubin, Total 07/20/2024 <0.2 (L) 0.2 - 1.2 mg/dL Final Alkaline Phosphatase 07/20/2024 56 35 - 129 U/L Final AST 07/20/2024 16 10 - 40 U/L Final ALT 07/20/2024 14 10 - 40 U/L Final BUN 07/20/2024 23 7 - 23 mg/dL Final eGFR 07/20/2024 >90 >=60 mL/min/1.73m2 Final The estimated glomerular filtration rate (eGFR) is calculated using a new formula developed by the NKF-ASN task force to eliminate race-based correction factors. The new formula uses serum/plasma creatinine, age, and gender to determine eGFR. A value below 60mls/min might indicate kidney disease and will be flagged. For additional information, see Yina mccain al, Am J Kidney Dis. 2021;79(2):268-288, A Unifying Approach for GFR estimation: Recommendations of the NKF-ASN Task Force on Reassessing the Inclusion of Race in Diagnosing Kidney Disease . Globulin, Total 07/20/2024 3.5 2.1 - 4.2 g/dL Final A/G Ratio 07/20/2024 1.0 (L) 1.5 - 3.0 Final Assessment & Plan I remain with her other information systems audit manager that fibromyalgia is clearly one of her worst problems. And deciphering whether or not we have lupus as well as been difficult. She remains with gggy-adzscf-lrkzshlt DNA antibodies. Sedimentation rates have been elevated. She responds to the 10 mg of prednisone. She is failed leflunomide in the past hydroxychloroquine is not helping enough. Methotrexate she does not wish to return to. We could try some low-dose CellCept to see what occurs over the course of time. In general, it has not been helpful for me and my joint issues but potentially this may helpreduce some of her steroid dose. We will update her laboratory work today as well. Diagnosis Plan 1. FELI positive Comprehensive metabolic panel CBC Sedimentation Rate C-reactive protein C3 complement C4 complement DNA Antibody, Double-Stranded DNA Antibody (ds) Crithidia IFA w/Reflex 2. Arthralgia, unspecified joint Comprehensive metabolic panel CBC Sedimentation Rate C-reactive protein C3 complement C4 complement DNA Antibody, Double-Stranded DNA Antibody (ds) Crithidia IFA w/Reflex 3. Fibromyalgia Comprehensive metabolic panel CBC Sedimentation Rate C-reactive protein C3 complement C4 complement DNA Antibody, Double-Stranded DNA Antibody (ds) Crithidia IFA w/Reflex No follow-ups on file. documented in this encounter Plan of Treatment Upcoming Encounters Date Type Department Care Team (Late st Contact Info) Description 08/16/2024 2:00 PM EDT Office Visit [facility] [address] [place] [phone] [employer] Equipment Operator: Juan Ramon Vallejo, Dennis Whitlock MD [address] [place] [phone] 12/06/2024 1:30 PM EDT Follow-Up [facility] [address] [place] [address] [employer] Equipment Operator: Morales Ramsey MD [address] [place] [phone] Pending Results Name Type Priority Associated Diagnoses Date /Time DNA Antibody, Double-Stranded Lab Routine FELI positive Arthralgia, unspecified joint Fibromyalgia 07/20/2024 1:58 PM EDT DNA Antibody (ds) Crithidia IFA w/Reflex Lab Routine FELI positive Arthralgia, unspecified joint Fibromyalgia 07/20/2024 1:58 PM EDT Scheduled Orders Name Type Priority Associated Diagnoses Orde r Schedule DNA Antibody, Double-Stranded Lab Routine FELI positive Arthralgia, unspecified joint Fibromyalgia Expected: 07/20/2024, Expires: 01/16/2025 DNA Antibody (ds) Crithidia IFA w/Reflex Lab Routine FELI positive Arthralgia, unspecified joint Fibromyalgia Expected: 07/20/2024, Expires: 01/16/2025 Scheduled Procedures Name Priority Associated Diagnoses Date/Ti me ARTHROSCOPY, SHOULDER, WITH ROTATOR CUFF REPAIR Chronic left shoulder pain ARTHROSCOPY, SHOULDER, DEBRI RONAL, EXTENSIVE Chronic left shoulder pain ARTHROSCOPY, SHOULDER, BICEP S TENODESIS Chronic left shoulder pain documented as of this encounter Results * Due to [place] state law, this organization might not be sharing negative HIV tests. * C4 complement (07/20/2024 1:58 PM EDT) Complement Component C4C 23 15 - 57 mg/dL 07/21/2024 6:58 AM EDT [facility] Blood Structure of peripheral vein / Unknown Venipuncture / Unknown 07/20/2024 1:58 PM EDT 07/20/2024 2:39 PM EDT Narrative [facility] - 07/21/2024 6:58 AM EDT [facility] Received Date: us Alonzo Persaud MD LAB BLOOD ORDERABLES Final Result [facility] [address] [facility] [address] Floor, [place] [address], [place] [phone] [facility] [address], [place] [address], [place] [phone] * C3 complement (07/20/2024 1:58 PM EDT) Complement Component C3C 113 83 - 193 mg/dL 07/21/2024 6:58 AM EDT [facility] Blood Structure of peripheral vein / Unknown Venipuncture / Unknown 07/20/2024 1:58 PM EDT 07/20/2024 2:39 PM EDT Narrative [facility] 07/21/2024 6:58 AM EDT [facility] Received Date: Alonzo Persaud MD LAB BLOOD ORDERABLES Final Result [facility] [address], [place] [address], [place] [phone] [facility] [address], [place] [address], [place] [phone] * (ABNORMAL) C-reactive protein (07/20/2024 1:58 PM EDT) Pathologist [facility] C Reactive Protein 27.0(H) <=9.9 mg/L 07/20/2024 3:12 PM EDT [facility] Blood Structure of peripheral vein / Unknown Venipuncture / Unknown 07/20/2024 1:58 PM EDT 07/20/2024 2:39 PM EDT Alonzo Persaud MD LAB BLOOD ORDERABLES Final Result [facility] [address] [place] [address], * Sedimentation Rate (07/20/2024 1:58 PM EDT) Sed Rate 28 <30 mm/Hr mm/Hr 07/20/2024 2:52 PM EDT [facility] Blood Structure of peripheral vein / Unknown Venipuncture / Unknown 07/20/2024 1:58 PM EDT 07/20/2024 2:40 PM EDT us Alonzo Persaud MD LAB BLOOD ORDERABLES Final Result [facility] [address] [place] [address], [place] * (ABNORMAL) CBC (07/20/2024 1:58 PM EDT) WBC 5.4 3.8 - 10.8 10*3/uL 07/20/2024 2:48 PM EDT [facility] RBC 4.36 3.80 - 5.10 10*6/uL 07/20/2024 2:48 PM EDT [facility] Hemoglobin 12.3 11.7 - 15.5 g/dL 07/20/2024 2:48 PM EDT [facility] Hematocrit 39.0 35.0 - 45.0 % 07/20/2024 2:48 PM EDT [facility] MCV 89.4 80.0 - 100.0 fL 07/20/2024 2:48 PM EDT [facility] MCH 28.2 27.0 - 33.0 pg 07/20/2024 2:48 PM EDT [facility] MCHC 31.5(L) 32.0 - 36.0 g/dL 07/20/2024 2:48 PM EDT [facility] RDW 13.9 11.0 - 15.0 % 07/20/2024 2:48 PM EDT [facility] Platelets 388 140 - 400 10*3/uL 07/20/2024 2:48 PM EDT [facility] MPV 9.4 7.5 - 12.5 fL 07/20/2024 2:48 PM EDT [facility] Blood Structure of peripheral vein / Unknown Venipuncture / Unknown 07/20/2024 1:58 PM EDT 07/20/2024 2:39 PM EDT us Alonzo Persaud MD LAB BLOOD ORDERABLES Final Result [facility] [address] [place] [address], * (ABNORMAL) Comprehensive metabolic panel (07/20/2024 1:58 PM EDT) NA 141 135 - 145 mmol/L 07/20/2024 3:13 PM EDT [facility] K 3.9 3.5 - 5.3 mmol/L 07/20/2024 3:13 PM EDT [facility] Cl 106 98 - 107 mmol/L 07/20/2024 3:13 PM EDT [facility] CO2 25 22 - 32 mmol/L 07/20/2024 3:13 PM EDT [facility] Anion Gap 10 5 - 15 07/20/2024 3:13 PM EDT [facility] Glucose 116(H) 65 - 99 mg/dL 07/20/2024 3:13 PM EDT [facility] Creatinine 0.77 0.50 - 1.20 mg/dL 07/20/2024 3:13 PM EDT [facility] Calcium 8.7 8.6 - 10.5 mg/dL 07/20/2024 3:13 PM EDT [facility] Total Protein 6.9 6.0 - 8.0 g/dL 07/20/2024 3:13 PM EDT [facility] Albumin 3.4(L) 3.5 - 5.2 g/dL 07/20/2024 3:13 PM EDT [facility] Bilirubin, Total <0.2(L) 0.2 - 1.2 mg/dL 07/20/2024 3:13 PM EDT [facility] Alkaline Phosphatase 56 35 - 129 U/L 07/20/2024 3:13 PM EDT [facility] AST 16 10 - 40 U/L 07/20/2024 3:13 PM EDT [facility] ALT 14 10 - 40 U/L 07/20/2024 3:13 PM EDT [facility] BUN 23 7 - 23 mg/dL 07/20/2024 3:13 PM EDT [facility] eGFR >90 >=60 mL/min/1 .73m2 07/20/2024 3:13 PM EDT [facility] Comment:The estimated glomer ular [...] - 4.2 g/dL 07/20/2024 3:13 PM EDT [facility] A/G Ratio 1.0(L) 1.5 - 3.0 07/20/2024 3:13 PM EDT [facility] Blood Structure of peripheral vein / Unknown Venipuncture / Unknown 07/20/2024 1:58 PM EDT 07/20/2024 2:39 PM EDT us Alonzo Persaud MD LAB BLOOD ORDERABLES Final Result [facility] [address] [place] [address], documented in this encounter Visit Diagnoses Diagnosis FELI positive- Primary Arthralgia, unspecified joint Fibromyalgia Unspecified myalgia and myositis documented in this encounter Care Teams Director Of Operations For Therapy Relationship Specialty Start Date End Date Cristian Chacon MD [address] [place] [phone] PCP - General 06/04/22 documented as of this encounter
--- OUTSIDE RECORDS SUMMARY | 2024-07-21 08:19 | XMS_ITS | Referral Summary ---
Author Organization [facility] Address [address] [place] [address] Care Team Providers Care Regulatory Scientist Name Role Phone Cristian Chacon MD Primary Care Prov ider Encounters Date Type Department Care Team Description 07/20/2024 1:40 PM EDT Follow-Up [facility] [address], [place] [phone] Trust Vault Clerk: Alonzo Baez MD FELI positive (Primary Dx); Arthralgia, unspecified joint; Fibromyalgia from Last 3 Months Allergies Active Allergy [...] tablet PLEASE SEE ATTACHED FOR DETAILED DIRECTIONS Active Ventolin HFA 90 mcg/actuation inhaler INHALE [...] (FOLVITE) 1 mg tablet TOME ОЛЕГ TABLETA DO LOS D 2 Active hydrocortisone 2.5% cream [...] 2 times a day with meals. Active butalbital-lfores taminophen-caf feine (FIORICET) 50-325-40 mg tablet Take [...] Description 08/16/2024 2:00 PM EDT Office Visit [facility] [address] [place] [address] Trust Vault Clerk: Juan Ramon Vallejo, Dennis Whitlock MD [address] [place] [address] 12/06/2024 1:30 PM EDT Follow-Up [facility] [address] [place] [address] Trust Vault Clerk: Morales Ramsey MD [address] [place] [address] Scheduled Procedures Name Priority Associated Diagnoses Date/Ti me ARTHROSCOPY, SHOULDER, WITH ROTATOR CUFF REPAIR Chronic left shoulder pain ARTHROSCOPY, SHOULDER, DEBRI RONAL, EXTENSIVE Chronic left shoulder pain ARTHROSCOPY, SHOULDER, BICEP S TENODESIS Chronic left shoulder pain Procedures * Due to [place] state law, this [...] to Health Maintenance Results * Due to [place] state law, this organization might not be sharing negative HIV tests. * Sedimentation Rate (07/20/2024 1:58 PM EDT) Sed Rate 28 <30 mm/Hr mm/Hr 07/20/2024 2:52 PM EDT [facility] Blood Structure of peripheral vein / Unknown Venipuncture / Unknown 07/20/2024 1:58 PM EDT 07/20/2024 2:40 PM EDT us Alonzo Persaud MD LAB BLOOD ORDERABLES Final Result [facility] [address] [place] [address], * (ABNORMAL) CBC (07/20/2024 1:58 PM EDT) WBC 5.4 3.8 - 10.8 10*3/uL 07/20/2024 2:48 PM EDT [facility] RBC 4.36 3.80 - 5.10 10*6/uL 07/20/2024 2:48 PM EDT [facility] Hemoglobin 12.3 11.7 - 15.5 g/dL 07/20/2024 2:48 PM EDT [facility] Hematocrit 39.0 35.0 - 45.0 % 07/20/2024 2:48 PM EDT [facility] MCV 89.4 80.0 - 100.0 fL 07/20/2024 2:48 PM EDT [facility] MCH 28.2 27.0 - 33.0 pg 07/20/2024 2:48 PM EDT [facility] MCHC 31.5(L) 32.0 - 36.0 g/dL 07/20/2024 2:48 PM EDT [facility] RDW 13.9 11.0 - 15.0 % 07/20/2024 2:48 PM EDT [facility] Platelets 388 140 - 400 10*3/uL 07/20/2024 2:48 PM EDT [facility] MPV 9.4 7.5 - 12.5 fL 07/20/2024 2:48 PM EDT [facility] Blood Structure of peripheral vein / Unknown Venipuncture / Unknown 07/20/2024 1:58 PM EDT 07/20/2024 2:39 PM EDT us Alonzo Persaud MD LAB BLOOD ORDERABLES Final Result [facility] [address] [place] [address], * C3 complement (07/20/2024 1:58 PM EDT) Complement Component C3C 113 83 - 193 mg/dL 07/21/2024 6:[address] [facility] Blood Structure of peripheral vein / Unknown Venipuncture / Unknown 07/20/2024 1:58 PM EDT 07/20/2024 2:39 PM EDT Narrative [facility] - 07/21/2024 6:58 AM EDT [facility] Received Date: us Alonzo Persaud MD LAB BLOOD ORDERABLES Final Result Performing Organization Address City/[facility]/ZIP Co de Phone Number [facility] [address] [facility] [address] [facility], [place] [address], [place] [phone] [employer] [facility] [address], [place] [address], [place] [phone] * C4 complement (07/20/2024 1:58 PM EDT) Complement Component C4C 23 15 - 57 mg/dL 07/21/2024 6:58 AM EDT [employer] [facility] Blood Structure of peripheral vein / Unknown Venipuncture / Unknown 07/20/2024 1:58 PM EDT 07/20/2024 2:39 PM EDT Narrative [facility] - 07/21/2024 6:58 AM EDT [facility] Received Date: us Alonzo Persaud MD LAB BLOOD ORDERABLES Final Result Performing Organization Address City/[facility]/ZIP Co de Phone Number [facility] [address] [facility] [address] [facility], [place] [address], [place] [phone] [employer] [facility] [address], [place] [address], [place] [phone] * (ABNORMAL) C-reactive protein (07/20/2024 1:58 PM EDT) C Reactive Protein 27.0(H) <=9.9 mg/L 07/20/2024 3:12 PM EDT [facility] Blood Structure of peripheral vein / Unknown Venipuncture / Unknown 07/20/2024 1:58 PM EDT 07/20/2024 2:39 PM EDT us Alonzo Persaud MD LAB BLOOD ORDERABLES Final Result [facility] [address] [place] [address], * (ABNORMAL) Comprehensive metabolic panel (07/20/2024 1:58 PM EDT) NA 141 135 - 145 mmol/L 07/20/2024 3:13 PM EDT [facility] K 3.9 3.5 - 5.3 mmol/L 07/20/2024 3:13 PM EDT [facility] Cl 106 98 - 107 mmol/L 07/20/2024 3:13 PM EDT [facility] CO2 25 22 - 32 mmol/L 07/20/2024 3:13 PM EDT [facility] Anion Gap 10 5 - 15 07/20/2024 3:13 PM EDT [facility] Glucose 116(H) 65 - 99 mg/dL 07/20/2024 3:13 PM EDT [facility] Creatinine 0.77 0.50 - 1.20 mg/dL 07/20/2024 3:13 PM EDT [facility] Calcium 8.7 8.6 - 10.5 mg/dL 07/20/2024 3:13 PM EDT [facility] Total Protein 6.9 6.0 - 8.0 g/dL 07/20/2024 3:13 PM EDT [facility] Albumin 3.4(L) 3.5 - 5.2 g/dL 07/20/2024 3:13 PM EDT [facility] Bilirubin, Total <0.2(L) 0.2 - 1.2 mg/dL 07/20/2024 3:13 PM EDT [facility] Alkaline Phosphatase 56 35 - 129 U/L 07/20/2024 3:13 PM EDT [facility] AST 16 10 - 40 U/L 07/20/2024 3:13 PM EDT [facility] ALT 14 10 - 40 U/L 07/20/2024 3:13 PM EDT [facility] BUN 23 7 - 23 mg/dL 07/20/2024 3:13 PM EDT [facility] eGFR >90 >=60 mL/min/1 .73m2 07/20/2024 3:13 PM EDT [facility] Comment:The estimated glomer ular filtration rate (eGFR) is calculated using a new formula developed by the NKF-ASN task force to eliminate race-based correction factors. The new formula uses serum/plasma creatinine, age, and gender to determine eGFR. A value below 60mls/min might indicate kidney disease and will be flagged. For additional information, see rBan et al, Am J Kidney Dis. 2021;79(2):268- 288, A Unifying Approach for GFR estimation: Recommendations of the NKF-ASN Task Force on Reassessing the Inclusion of Race in Diagnosing Kidney Disease . Globulin, Total 3.5 2.1 - 4.2 g/dL 07/20/2024 3:13 PM EDT [facility] A/G Ratio 1.0(L) 1.5 - 3.0 07/20/2024 3:13 PM EDT [facility] Blood Structure of peripheral vein / Unknown Venipuncture / Unknown 07/20/2024 1:58 PM EDT 07/20/2024 2:39 PM EDT us Alonzo Persaud MD LAB BLOOD ORDERABLES Final Result [facility] [address] [place] [address], * Hepatitis C Antibody w/Reflex to HCV RNA, Quantitative PCR (06/04/2022 5:43 PM EDT) Hepatitis C Antibody NON-REACT BETO NON-REACT BETO 06/05/2022 3:44 AM EDT [facility] Signal To Cut-Off 0.02 <1.00 06/05/2022 3:44 AM EDT [facility] Comment: HCV antibody was non-reactive. There is no laboratory evidence of HCV infection. In most cases, no further action is required. However, if recent HCV exposure is suspected, a test for HCV RNA (test code 59312) is suggested. For additional information please refer to http://education.PWRF/faq/NEF78d2 (This link is being provided for informational/ educational purposes only.) Blood Structure of peripheral vein / Unknown Venipuncture / Unknown 06/04/2022 5:43 PM EDT 06/04/2022 6:08 PM EDT [facility] MARLENE - 06/05/2022 3:44 AM EDT [facility] Received Date: Alonzo Persaud MD LAB BLOOD ORDERABLES Final Result [facility] [address] [facility] 3rd Floor, [place] [address], [facility] [address], [place] [address], from Last 3 Months or Most Recently Relevant to Health Maintenance Insurance [facility] Care Teams Regulatory Scientist Relationship Specialty Start Date End Date Cristian Chacon MD [address] [place] [address] PCP - General 06/04/22
--- OUTSIDE RECORDS SUMMARY | 2024-07-21 08:19 | XMS_ITS | Encounter Summary ---
Author Organization [employer] Address [address] [facility] 7 [place] [address] Care Team Providers Care Slat Twister Name Role Phone Cristian Chacon MD Primary Care Prov ider Reason for Visit * Reason Onset Date Comments Nurse Triage 11/18/2022 Encounter Details Date Type Department Care Team ([facility] st Contact Info) Description 11/18/2022 Telephone C [facility] [address] [place], [place] [phone] Cristian Chacon MD [address] [place] [address] Nurse Triage Social History Tobacco Use Types [...] accepted this outcome Please contact pt at [phone] Guinean Speaker documented in this encounter Plan of Treatment Not on file documented as of this encounter Visit Diagnoses Not on filedocumented in this encounter Care Teams Slat Twister Relationship Specialty Start Date End Date Cristian Chacon MD [address] [place] [address] PCP - General Internal Medicine 03/17/19 Ivy Payne Sound Effects ManagerCentrifuge Separator Tender 03/03/23 11/25/23 Ivy Payne Manager OccupationalCentrifuge Separator Tender 11/26/23 documented as of this encounter
--- OUTSIDE RECORDS SUMMARY | 2024-07-21 08:19 | XMS_ITS | Encounter Summary ---
Author Organization [facility] Address [address] [place] [address] Care Team Providers Care Toolroom Machinist Name Role Phone Cristian Chacon MD Primary Care Prov ider Reason for Visit * Reason Onset Date Comments Rosacea 08/09/2021 Pt is calling to schedule a new pt apt for rosacea. Please call pt at [phone] Encounter Details Date Type Department Care Team ([facility] Contact Info) Description 08/09/2021 Telephone [facility] Central Scheduling Department [address] [place] [address] Telephone Intake, Staff Cash (Pt is calling to schedule a new pt apt for rosacea. Please call pt at [phone]) Social History Tobacco Use Types Packs/Day Years [...] 10:51 AM EDT Documentation purpose. lvm at [phone]. Pt is calling to schedule a new pt apt for rosacea. Please call pt at [phone] documented in this encounter Plan of Treatment Upcoming Encounters Date Type Department Care Team ([facility] Contact Info) Description 08/16/2024 2:00 PM EDT Office Visit [facility] [address] [place] [address] Senior Geotechnical Engineer: Juan Ramon Vallejo, Dennis Whitlock MD [address] [place] [address] 12/06/2024 1:30 PM EDT Follow-Up [facility] [address] [place] [address] Senior Geotechnical Engineer: Morales Ramsey MD [address] [place] [address] Scheduled Procedures Name Priority Associated Diagnoses Date/Ti me ARTHROSCOPY, SHOULDER, WITH ROTATOR CUFF REPAIR Chronic left shoulder pain ARTHROSCOPY, SHOULDER, DEBRI RONAL, EXTENSIVE Chronic left shoulder pain ARTHROSCOPY, SHOULDER, BICEP S TENODESIS Chronic left shoulder pain documented as of this encounter Visit Diagnoses Not on filedocumented in this encounter Care Teams Toolroom Machinist Relationship Specialty Start Date End Date Cristian Chacon MD [address] [place] [address] PCP - General 06/04/22 documented as of this encounter
--- OUTSIDE RECORDS SUMMARY | 2024-07-21 08:19 | XMS_ITS | Encounter Summary ---
Author Organization [employer] Address [address] [facility] 7 [place] [address] Care Team Providers Care Hemotherapist Name Role Phone Cristian Chacon MD Primary Care Prov ider Reason for Visit * Reason Onset Date Comments Medication Question 09/12/2022 Encounter Details Date Type Department Care Team (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 Pt stated she had not picked up the Benadryl yet for rash itchiness. She will do so. 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 She would like PCP to [...] on filedocumented in this encounter Care Teams Hemotherapist Relationship Specialty Start Date End Date Cristian Chacon MD [address] [place] [address] PCP - General Internal Medicine 03/17/19 Ivy Payne Procurement ProfessionalDairy Products Maker 03/03/23 11/25/23 Ivy Payne Forklift Truck MechanicDairy Products Maker 11/26/23 documented as of this encounter
--- OUTSIDE RECORDS SUMMARY | 2024-07-21 08:19 | XMS_ITS | Clinical Summary ---
Author Organization [facility] Address [address] [place] [address] Care Team Providers Care Database Modeler Name Role Phone Eduarda Villeda MD Primary Care Provider [phone] Medications No known medications Social History Tobacco [...] complete this topic Insurance MEDICAID Care Teams Database Modeler Relationship Specialty Start Date End Date Eduarda Villeda MD [address] [address] PCP - General Internal Medicine 05/12/18
--- OUTSIDE RECORDS SUMMARY | 2024-07-21 08:19 | XMS_ITS | Encounter Summary ---
Author Organization [employer] Address [address] [place] [address] Care Team Providers Care Core Shaper Name Role Phone Cristian Chacon MD Primary Care Prov ider Encounter Details Date Type Department Care Team (Late st Contact Info) Description 02/19/2024 Orders Only [facility] [address] [place] [address] Provider, MD Roderick Social History Tobacco Use [...] documented as of this encounter Care Teams Core Shaper Relationship Specialty Start Date End Date Cristian Chacon MD [address] [place] [address] PCP - General Internal Medicine 03/17/19 Ivy Payne Hiv NurseHand Crown Pouncer 11/26/23 documented as of this encounter
== END ==
LOC: HO.NUCMED 08:10
PROVIDERS: PCP Family Medicine; Visit Provider Nurse Practitioner
DX: E11.9 Type 2 diabetes mellitus without complications (principal); R11.2 Nausea with vomiting, unspecified
CPT/HCPCS: 78264; A9541

== ENCOUNTER → 2024-07-21 08:12 | Outpatient (BNV) | payer MEDICAID, SELFPAY | PROVIDERS: PCP Family Medicine; Visit Provider Radiology Diagnostic Radiology | DX: E11.9 Type 2 diabetes mellitus without complications (principal) | CPT/HCPCS: 78264 ==

== ENCOUNTER 2024-08-11 08:49 | Outpatient (AMB) | payer MEDICAID, SELFPAY ==
--- OUTSIDE RECORDS SUMMARY | 2024-08-11 09:17 | XMS_ITS | Encounter Summary ---
Author Organization [employer] Address [address] [facility] 7t [place] [address] Care Team Providers Care Flask Fitter Name Role Phone Cristian Chacon MD Primary Care Prov ider Encounter Details Date Type Department Care Team ([facility] Contact Info) Description 06/30/2024 Orders Only [facility] [address] [place], [place] [phone] Provider, MD Roderick Social History Tobacco Use [...] the past 12 months, has t he [employer], [employer], oil or water [employer] threatened to shut off services in your [...] documented as of this encounter Care Teams Flask Fitter Relationship Specialty Start Date End Date Cristian Chacon MD [address] [place] [id number] PCP - General Internal Medicine 03/17/19 Ivy Payne Sap Bw ConsultantSleep Manager 11/26/23 documented as of this encounter
--- NOTE | 2024-08-11 09:21 | A.OFFVIS_ITS ---
Intake Visit Reasons: Urinary Incontinence Intake Note: Patient is present for URINARY INCONTINENCE Urology Medication:NONE Antibiotic Allergy:NONE Blood Thinner:NONE Supervisor Knitting Required: No Allergies duloxetine [From CYMBALTA] Allergy (Unknown, Verified 08/11/24 09:22) UNKNOWN pregabalin [From LYRICA] Allergy (Unknown, Verified 08/11/24 09:22) UNKNOWN meperidine [From DEMEROL] Adverse Reaction (Intermediate, Verified 08/11/24 09:22) N/V oxycodone [From Percocet] Adverse Reaction (Intermediate, Verified 08/11/24 09:22) itching HPI Comments Details: Scarlett is a pleasant Norwegian-speaking female. She is a patient of Dr. Rosas. She is seen for the following urologic conditions - urge incontinence Norwegian translation provided by qualified medical transcription radiology Urge incontinence Unsensed when sitting Using multiple pads 3 C-sections, prior hysterectomy Discussed use of medications Background fibromyalgia Printed information provided Background of diabetes with complications exacerbated by prednisone used for fibromyalgia [facility] Medical History (Updated 07/07/24 @ 15:20 by JOCELYN Leung) Pre-op examination Chronic idiopathic constipation Colon cancer screening Hemifacial spasm Abdominal pain Pelvic pain in female Bilateral shoulder pain Vulvar irritation WISE (nonalcoholic steatohepatitis) Elevated antinuclear antibody (FELI) level FELI positive Encounter to discuss test results Hemifacial spasm of left side of face Peptic ulcer disease Esophageal spasm Family history of cerebral aneurysm Fibromyalgia Irritable bowel syndrome with both constipation and diarrhea History of meningitis Surgical History History of esophagogastroduodenoscopy (EGD) Keloid of skin H/O neck surgery Hx of section Hx of hysterectomy Hx of breast lump removal (~2019) History of bladder suspension procedure H/O bilateral breast reduction surgery Family History Mother Aneurysm Endometrial cancer Father No problems noted. Social History Alcohol intake: never Patient Tobacco Use Status: Never used Tobacco Sexual orientation: Straight/Heterosexual Gender identity: Female Review of Systems Const Denies chills and Denies fever(s) Card Reports no additional complaints and Denies syncope Resp Denies cough GI Denies abdominal pain and Denies heartburn Reports as per HPI and Denies change in libido Neuro Denies syncope Psych Denies change in libido Endo Denies change in libido Physical Exam Const General: cooperative, healthy appearing, comfortable and no acute distress Orientation/consciousness: patient oriented x3 HEENT Face and sinus: Yes normal facial exam Mouth: moist mucous membranes Neck Neck: Yes normal visual inspection, Yes full ROM and Yes trachea midline Chest Chest palpation & inspection: normal inspection of the chest Resp Effort & Inspection: normal respiratory effort, able to speak in complete sentences and no respiratory distress GI Inspection: Yes normal to inspection Back/Spine/Pelvis Cervical Spine: normal cervical lordosis Thoracic/Lumbar Spine: thoracic and lumbar spine normal to inspection Skin General skin exam: no rashes or lesions noted Neuro General: patient oriented x3, gait normal, tone normal and moves all extremities Extrem General: Yes normal to inspection and Yes capillary refill normal Assessment & Plan Assessment & Plan (1) Chronic pelvic pain in female: Code(s): R10.2 - Pelvic and perineal pain; G89.29 - Other chronic pain Category: Medical (2) Urinary incontinence: Code(s): R32 - Unspecified urinary incontinence Category: Medical Plan P.r.n. follow-up Orders: Orders AMB Urinalysis Automated Today Z13.9 - Encounter for screening, unspecified Patient Instructions: This note is constructed using voice recognition software. While every effort has been made to ensure accuracy price lister errors may have been included. Imaging studies, laboratory and physical exam results were discussed and reviewed in detail. No major barriers to patient understanding were identified. An opportunity to ask questions regarding the treatment plan was provided. All questions were answered. The patient expressed understanding and agreement with the above treatment plan. The patient is aware they should contact our office by phone for worsening of their current condition or the appearance of new urologic symptoms. Compliance is encouraged with any medications and followup testing that is ordered. It is a privilege to participate in the urologic care of your patient. If you have any questions or concerns regarding treatment for the above conditions, or other urologic issues, please do not hesitate to contact me. The office telephone contact is [phone]. Sincerely, Dr Bradley Wills MD, [facility] Compassionate Specialist Care for the Genitourinary System Coding Level of Care Code New Pt Level 3 (64713) Diagnoses Chronic pelvic pain in female R10.2; G89.29 Urinary incontinence R32
== END 2024-08-11 10:03 | disposition home or self-care (01) ==
LOC: HO.HUSH 08:49
PROVIDERS: PCP Family Medicine; Visit Provider Urology
DX: R10.2 Pelvic and perineal pain (principal); G89.29 Other chronic pain; R32 Unspecified urinary incontinence; Z13.9 Encounter for screening, unspecified
CPT/HCPCS: 99203

== ENCOUNTER → 2024-08-11 08:49 | Outpatient (BNVA) | payer MEDICAID, SELFPAY | PROVIDERS: PCP Family Medicine; Visit Provider Urology | DX: R10.2 Pelvic and perineal pain (principal); R32 Unspecified urinary incontinence; G89.29 Other chronic pain | CPT/HCPCS: 81003; 99202 ==

== ENCOUNTER 2024-08-24 13:39 | Outpatient (AMB) | payer MEDICAID, SELFPAY ==
--- NOTE | 2024-08-24 13:44 | A.OFFVIS_ITS ---
Vital Signs 08/24/24 13:56 Height 5 ft Weight 200 lb BMI 39.1 BP 123/55 L Blood Pressure Location Lt brachial Position Sitting Pulse 84 Pulse Oximetry (%) 95 Oxygen Delivery Method Room Air Intake Visit Reasons: N/V ? paresis NO VIDEO INT Intake Note: Patient follow up for abdominal pain, N/V. Barium swallow results Patient cc: abdominal pain/bloating, N/V, difficulty swallowing on and off, and constipation with hard stool.. Radiology Special Procedure Tech Required: Yes Accompanied by: Self / Same As Patient Allergies duloxetine (From CYMBALTA) Allergy (Unknown, Verified 08/24/24 13:47) UNKNOWN pregabalin (From LYRICA) Allergy (Unknown, Verified 08/24/24 13:47) UNKNOWN meperidine (From DEMEROL) Adverse Reaction (Intermediate, Verified 08/24/24 13:47) N/V oxycodone (From Percocet) Adverse Reaction (Intermediate, Verified 08/24/24 13:47) itching HPI HPI N/V ? paresis NO VIDEO INT: Details: Assessment & Plan (1) Erosive esophagitis: Code(s): K22.10 - Ulcer of esophagus without bleeding Category: Medical (2) Chronic gastric ulcer: Code(s): K25.7 - Chronic gastric ulcer without hemorrhage or perforation Category: Medical (3) Dysphagia: Comment: Improved with dilation after EGD aeb Code(s): R13.10 - Dysphagia, unspecified Category: Medical (4) GERD (gastroesophageal reflux disease): Code(s): K21.9 - Gastro-esophageal reflux disease without esophagitis Category: Medical (5) Nausea and vomiting: Comment: likely r/t her chronic ulcer Code(s): R11.2 - Nausea with vomiting, unspecified Category: Medical (6) Diabetes: Code(s): E11.9 - Type 2 diabetes mellitus without complications Category: Medical (7) Abdominal pain: Code(s): R10.9 - Unspecified abdominal pain Category: Medical (8) Pre-op examination: Code(s): Z01.818 - Encounter for other preprocedural examination Category: Medical Plan [place] #Jemima Anshu (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 She says that her insurance is not approving her diabetes injection, so she is vomiting saliva. (I am unsure that this is actually a cause and effect connection but it isn't her mind) She has a choking sensation and when she bends down she feels like she is getting punched in the stomach. She feels like she has vomit in the am. She even spent $[address] Harsha Noe for her sx but this did not work. (take naproxen anywhere from 2-3 times a week depending on her FMS pain levels) She is having early satiety as well. She can not eat eggs for GES, but agrees to try it with ensure. Since she IS diabetic gastroparesis is strong in the ddx. She also has been stealing her husbands o2o as she has not been getting what we rx'ed from the pharmacy. I re send this and will have my staff check in to this. She is having dysphagia again and requests a repeat EGD to dilate the esophagus. This has been worsening over the past month. She confirms that she is taking esomeprazole twice a day. She has a recent new diagnosis of bronchial asthma and denies any severe cardiac problems besides palpitations. There are no prior problems with anesthesia or sedation. There are no infectious disease problems known. Start a trial of reglan 5mg qid. She is tearful about her whose pancreatic cancer has spread to his vocal cords. Naturally, this is stressful for her and could be contributing to her symptom presentation as well. ROV next available Orders: Orders Comprehensive Met. Panel Today Z01.818 - Encounter for other preprocedural examination NM gastric emptying study Today E11.9 - Type 2 diabetes mellitus without complications, R11.2 - Nausea with vomiting, unspecified Medications: New metoclopramide HCl (Reglan) 5 mg PO QID 120 tabs 6RF R11.2 - Nausea with vomiting, unspecified Refilled omeprazole 40 mg PO BID 30 days 180 caps 1RF K22.10 - Ulcer of esophagus without bleeding, K25.7 - Chronic gastric ulcer without hemorrhage or perforation, K29.60 - Other gastritis without bleeding, R11.2 - Nausea with vomiting, unspecified LABS: Not obtained GASTRIC EMPTYING STUDY 07/21/2024 IMPRESSION: Normal 4-hour solid food gastric emptying study. TODAY'S VISIt [place] #Antwon Brasher She is doing better on the omeprazole bid that she did with the generic Nexium. However, she is having dysphagia again that responded well to dilation. We will again schedule this. She is having worse trouble with bloating and her bowels. Her stools are quite hard, and when she does not move them she has severe cramping across the lover abd, and it seems to radiate up to the entire abd. Her GERD is also worse. She does feel better when she moves her bowels, but she has had a severely exaggerated response to OTC CIC medications in the past. Particularly, bisacodyl. She feels that the bentyl at 10mg is not working for her cramping as well. We will increase it ti 20mg qid. Start trial of Linzess 72mcg cautiously titrating. Since GES was normal will stop reglan. She is c/o her tongue getting a white coating and swelling, she says she has been trying to find out if it is an allergy to medicines, but she is on chronic prednisone sot his is most likely roberto (which also could be causing her dysphagia). Will treat with 14 day of diflucan. She will be starting a GLP-1 soon. ROV 5 weeks. [facility] Medical History (Updated 08/24/24 @ 14:27 by JOCELYN Leung) Erosive esophagitis Pre-op examination Chronic idiopathic constipation Colon cancer screening Hemifacial spasm Abdominal pain Pelvic pain in female Bilateral shoulder pain Vulvar irritation WISE (nonalcoholic steatohepatitis) Elevated antinuclear antibody (FELI) level FELI positive Encounter to discuss test results Hemifacial spasm of left side of face Peptic ulcer disease Esophageal spasm Family history of cerebral aneurysm Fibromyalgia Irritable bowel syndrome with both constipation and diarrhea History of meningitis Surgical History History of esophagogastroduodenoscopy (EGD) Keloid of skin H/O neck surgery Hx of section Hx of hysterectomy Hx of breast lump removal (~2019) History of bladder suspension procedure H/O bilateral breast reduction surgery Family History Mother Aneurysm Endometrial cancer Father No problems noted. Social History Alcohol intake: never Patient Tobacco Use Status: Never used Tobacco Sexual orientation: Straight/Heterosexual Gender identity: Female Review of Systems Const Denies fatigue, Denies fever(s), Denies night sweats, Denies poor appetite and Denies weight loss ENT Reports Normal hearing present, Denies dental pain, Reports dysphagia, Denies hearing loss, Reports mouth pain, Denies odynophagia, Denies throat swelling, Denies tongue swelling and Reports other (Dentition adequate) Card Reports no additional complaints Resp Reports no additional complaints GI Details: Denies abdominal pain, Denies melena, Reports bloating, Denies hematochezia, Reports constipation, Reports GI cramping, Reports dysphagia, Denies excessive flatus, Denies early satiety, Reports heartburn, Denies diarrhea, Denies nausea, Denies odynophagia, Denies vomiting and Denies hematemesis Skin/Breast Denies pruritus, Denies lesions, Denies rash and Denies jaundice Neuro Reports Normal hearing present and Denies Abnormal speech present Endo Denies fatigue Aller/Immun Denies throat swelling and Denies tongue swelling Physical Exam Vital Signs: Last Vital Signs Pulse 84 08/24/24 13:56 BP 123/55 L 08/24/24 13:56 Pulse Ox 95 08/24/24 13:56 Oxygen Delivery Method Room Air 08/24/24 13:56 BMI result Body Mass Index 39.1 Const General: cooperative, no acute distress, well developed and well groomed Nutritional Appearance: well nourished and obese Orientation/consciousness: oriented to person, oriented to place and oriented to time Limitations: language barrier HEENT Head: Yes normocephalic and Yes atraumatic Eyes General: appearance normal, both eyes and all related structures Pupils: Equal, round and reactive pupils present Neck Neck: Yes normal visual inspection and Yes no lymphadenopathy Thyroid: Thyroid normal Resp Effort & Inspection: normal respiratory effort and able to speak in complete sentences Auscultation: clear to auscultation bilaterally Cardio Rate: regular rate Rhythm: regular rhythm Heart sounds: Normal, physiologic split S2 sound present Peripheral pulses: radial pulses present and posterior tibial pulses present GI Inspection: Yes distended, Yes Abdominal panniculus present and Yes obesity Palpation (GI): Soft to palpation, nontender, no guarding, not rigid and No hepatosplenomegaly present Percussion: Yes normal to percussion Auscultation: normal bowel sounds Rectal Exam - Female: deferred Skin General skin exam: no rashes or lesions noted, turgor normal, skin not dry, no jaundice, No spider nevi and no striae Rashes: no rashes Nails: normal Neuro General: oriented to person, oriented to place and oriented to time Cranial nerves: Yes Equal, round and reactive pupils present and Yes Normal hearing present Speech: No Abnormal speech present Extrem General: Yes normal to inspection, No clubbing, No cyanosis and No edema Psych Appearance: grossly normal and well kempt Mental Status: mental status grossly normal Speech and movement: Pressured speech present Affect: Animated affect present Attitude: cooperative Thought process: not confabulating and Tangential thought process present Thought content: Normal thought content present Insight: Limited insight present (Psych) Judgement: Limited judgement present (Psych) Assessment & Plan Assessment & Plan (1) GERD (gastroesophageal reflux disease): Code(s): K21.9 - Gastro-esophageal reflux disease without esophagitis Category: Medical (2) Dysphagia: Comment: Improved with dilation after EGD aeb Code(s): R13.10 - Dysphagia, unspecified Category: Medical (3) Erosive gastritis: Code(s): K29.60 - Other gastritis without bleeding Category: Medical (4) Constipation: Code(s): K59.00 - Constipation, unspecified Category: Medical (5) Candidiasis of mouth and esophagus: Code(s): B37.81 - Candidal esophagitis; B37.0 - Candidal stomatitis Category: Medical Plan [place] #Antwon Live She is doing better on the omeprazole bid that she did with the generic Nexium. However, she is having dysphagia again that responded well to dilation. We will again schedule this. She is having worse trouble with bloating and her bowels. Her stools are quite hard, and when she does not move them she has severe cramping across the lover abd, and it seems to radiate up to the entire abd. Her GERD is also worse. She does feel better when she moves her bowels, but she has had a severely exaggerated response to OTC CIC medications in the past. Particularly, bisacodyl. She feels that the bentyl at 10mg is not working for her cramping as well. We will increase it ti 20mg qid. Start trial of Linzess 72mcg cautiously titrating. Since GES was normal will stop reglan. She is c/o her tongue getting a white coating and swelling, she says she has been trying to find out if it is an allergy to medicines, but she is on chronic prednisone sot his is most likely roberto (which also could be causing her dysphagia). Will treat with 14 day of diflucan. She will be starting a GLP-1 soon. ROV 5 weeks. Orders: Orders EGD - GI Use Only Today R13.10 - Dysphagia, unspecified Medications: New linaclotide (Linzess) 72 mcg PO QAM 30 caps 3RF K59.00 - Constipation, unspecified dicyclomine 20 mg PO QID 120 tabs 1RF 30 days fluconazole (Diflucan) 100 mg PO DAILY 14 tabs 0RF 14 days B37.0 - Candidal stomatitis, B37.81 - Candidal esophagitis Discontinued dicyclomine Discontinued Reason: Doctor's Order 10 mg PO TID 90 caps 6RF K22.4 - Dyskinesia of esophagus metoclopramide HCl (Reglan) Discontinued Reason: Doctor's Order 5 mg PO QID 120 tabs 6RF R11.2 - Nausea with vomiting, unspecified Coding Level of Care Code Est Pt Level 4 (68203) Diagnoses GERD (gastroesophageal reflux disease) K21.9 Dysphagia R13.10 Erosive gastritis K29.60 Constipation K59.00 Candidiasis of mouth and esophagus B37.81; B37.0 Time Spent (min) 38
[2024-08-24 13:56] VITALS: BP 123/55; PULSE 84; O2SAT 95; BMI 39.1
--- OUTSIDE RECORDS SUMMARY | 2024-08-24 16:06 | XMS_ITS | Encounter Summary ---
Author Organization [employer] Address [address] [place] [address] Care Team Providers Care Net Mender Name Role Phone Cristian Chacon MD Primary Care Prov ider Encounter Details Date Type Department Care Team ([facility] Contact Info) Description 06/30/2024 Orders Only [place] [facility] [address], [place] [phone] Provider, MD Roderick Social History Tobacco Use [...] the past 12 months, has t he [employer], [employer], oil or water [employer] threatened to shut off services in your [...] Care Team (Late st Contact Info) Description 10/06/2024 2:15 PM EDT Office Visit [facility] [address] [place], [place] [phone] Cristian Chacon MD [address], [place] [phone] documented as of this encounter Procedures Procedure Name Priority Date/Time Associated Diagnosis Comments XR CHEST 2 VIEWS Routine 06/30/2024 3:30 PM EDT documented in this encounter Results * XR Chest 2 Views (06/30/2024 3:30 PM EDT) Anatomical Region Laterality Modality Chest Radiographic Amanda ging us Historical Provider MD MAHONEY XR PROCEDURES Final R esult documented in this encounter Visit Diagnoses Not on filedocumented in this encounter Additional Health Concerns Assessment Noted Time PHQ-9 Depression Total Score: 16 024 1:19 PM EDT documented as of this encounter Care Teams Net Mender Relationship Specialty Start Date End Date Cristian Chacon MD [address], [place] [phone] PCP - General Internal Medicine 03/17/19 Ivy Payne Cannon Fire Direction SpecialistBrush Fabrication Supervisor 11/26/23 documented as of this encounter
== END 2024-08-24 14:44 | disposition home or self-care (01) ==
LOC: HO.HGI 13:39
PROVIDERS: PCP Family Medicine; Visit Provider Nurse Practitioner
DX: K21.9 Gastro-esophageal reflux disease without esophagitis (principal); R13.10 Dysphagia, unspecified; K29.60 Other gastritis without bleeding; K59.00 Constipation, unspecified; B37.81 Candidal esophagitis; B37.0 Candidal stomatitis
CPT/HCPCS: 99214

== ENCOUNTER → 2024-08-24 13:39 | Outpatient (BNVA) | payer MEDICAID, SELFPAY | PROVIDERS: PCP Family Medicine; Visit Provider Nurse Practitioner | DX: Z01.818 Encounter for other preprocedural examination (principal); K21.9 Gastro-esophageal reflux disease without esophagitis; R13.10 Dysphagia, unspecified; K29.60 Other gastritis without bleeding; K59.00 Constipation, unspecified; B37.81 Candidal esophagitis; B37.0 Candidal stomatitis | CPT/HCPCS: 99212 ==

== ENCOUNTER 2024-08-31 12:05 | Outpatient (AMB) | payer MEDICAID, SELFPAY ==
--- OUTSIDE RECORDS SUMMARY | 2024-08-31 12:45 | XMS_ITS | Encounter Summary ---
Author Organization [employer] Address [address] [place] [address] Care Team Providers Care Pipe Organ Technician Name Role Phone Cristian Chacon MD Primary Care Prov ider Encounter Details Date Type Department Care Team ([facility] Contact Info) Description 06/30/2024 Orders Only [place] [facility] [address] [place], [place] [phone] Provider, MD Roderick Social History Tobacco Use [...] the past 12 months, has t he [employer], [employer], oil or water [employer] threatened to shut off services in your [...] Care Team (Late st Contact Info) Description 09/29/2024 2:45 PM EDT Office Visit [facility] [address] [place], [place] [phone] Eduarda Villeda MD [address] [place], [place] [phone] documented as of this encounter Procedures Procedure [...] documented as of this encounter Care Teams Pipe Organ Technician Relationship Specialty Start Date End Date Cristian Chacon MD [address] [place], [place] [phone] PCP - General Internal Medicine 03/17/19 Ivy Payne Hand TrimmerEngineering Executive 11/26/23 documented as of this encounter
--- OUTSIDE RECORDS SUMMARY | 2024-08-31 12:46 | XMS_ITS | Clinical Summary ---
Author Organization [facility] Address [address] [place] [address] Care Team Providers Care Agriculture Engineer Name Role Phone Cristian Chacon MD [...] 200 mg tablet TOME ОЛЕГ TABLETA DOS D 2 Active LORazepam (ATIVAN) 0.5 mg [...] 2 times a day with meals. Active mycophenolate (CELLCEPT) 500 mg tablet Take one tablet daily 30 tablet 1 5 Active predniSONE (DELTASONE) 5 mg tablet Take 1 tablet (5 mg total) by mouth 2 times a day. 60 tablet 2 5 Active butalbital-acet aminophen-caffe ine (FIORICET) 50-325-40 mg tablet Take 1 tablet by mouth every 8 hours as needed. 5 08/18/19 25 Active Problems Problem Noted Date Diagnosed Date Shortness of breath 08/16/2024 Multiple joint pain 02/09/2024 Systemic lupus erythematosus 12/01/2023 Localized swelling of both lower extremities 12/2023 Chest pain 08/10/2023 Type 2 diabetes mellitus wit hout complication, without long-term current use of insulin 08/10/2023 Overview (08/16/2024): Last Assessment & Plan: The patient is now diabetic based on hemoglobin A1c of 6.5%. She needs to diet and exercise. She has tried metformin in the past for prediabetes in order to prevent the progression of diabetes but she could not tolerate the medications. She is going to continue to try to diet and exercise. Lymphadenopathy of left cervical region 05/18/19 24 Primary hypertension 04/17/2023 Chronic pelvic pain in female 03/17/2023 Traumatic incomplete tear of left rotator cuff 1 Chronic neck pain 05/29/2022 Headache 05/29/2022 Osteoarthritis 05/29/2022 Mixed stress and urge urinary incontinence 04/04 Nontoxic multinodular goiter 06/15/2020 Overview (08/16/2024): Last Assessment & Plan: The patient actually has a heterogeneous gland the nodules are not very distinct I believe that these are simple nodules and she does not require any further imaging. Fibromyalgia 01/04/2018 Hx of hysterectomy 01/04/2018 Migraine 01/04/2018 Obesity 01/01/2018 Left ovarian cyst 07/14/2013 Overview (08/16/2024): S/P US PELVIS 07/04/13 DUE PELVIC PAIN. 2.9 X 3.8 X 3 CM LEFT ADNEXAL CYSTIC LESION, MOST LIKELY HEMORRHAGIC OVARIAN CYST. 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 2.9 X 3.8 X 3 CM LEFT ADNEXAL CYSTIC LESION, MOST LIKELY HEMORRHAGIC OVARIAN CYST. 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 [facility]). F/U [facility] (DR. NANCE). Hypothyroidism 05/13/2007 Overview (08/16/2024): + CARLOS EDUARDO'S THYROIDITIS, ENDO F/U with [...] F/U with Dr Mcdowell Insomnia 05/13/2007 Overview (08/16/2024): F/U AT [facility] (DR. NANCE). F/U AT [facility] (DR. NANCE). Encounters Date Type Department Care Team Description 08/16/2024 2:00 PM EDT Office Visit [facility] [address] [place] [phone] Legal Activity Adjudicator: Dennis Laguna MD Shortness of breath (Primary Dx) 08/12/2024 Telephone [facility] [address] [place] [address] Legal Activity Adjudicator: Marichuy Agee MA 07/20/2024 1:40 PM EDT Follow-Up [facility] [address] [place] [address] Legal Activity Adjudicator: Alonzo Baez MD FELI positive (Primary Dx); Arthralgia, unspecified joint; Fibromyalgia from Last 3 Months Immunizations Immunization Administration Dates Next Due COVID-19, Pfizer, mRNA, Biva lent Booster, PF, 30 mcg/0.3 mL dose (for age 12 y and up) 01/04/2022 Influenza, Injectable, Quadr ivalent, Contains Preservative 03/13/2009 Influenza, Injectable, Quadr ivalent, Preservative Free 12/11/2022,01/04/2022,02/12/2021,12/05,10/25/2018,12/14/2017,12/12/2016 ,03/10/2016 Influenza, Trivalent, MDV, Injectable 12/11/2014 Pneumococcal Conjugate Vacci ne, 13 Valent 10/14/2010 Pneumococcal Polysaccharide Vaccine, 23 Valent 10/14/2010 Tetanus Toxoid, Reduced Diph theria Toxoid, and Acellular Pertussis Vaccine, Adsorbed 10/14/2010 Zoster Vaccine Recombinant 04/13/2019 Family History Medical History Relation Name Comments [...] Sign Reading Time Taken Comments Blood Pressure 127/88 08/16/2024 1:54 PM EDT Pulse 88 08/16/2024 1:54 PM EDT Temperature 36.8 C (98.3 F) 07/20/2024 12:19 PM EDT Respiratory Rate 18 08/16/2024 1:54 PM EDT Oxygen Saturation 96% 08/16/2024 1:5 4 PM EDT Inhaled Oxygen Concentration - - Weight 89.8 kg (198 lb) 08/16/2024 1:54 PM EDT Verbally reported. Height 157.5 cm (5' 2 ) 07/20/2024 12:1 9 PM EDT Body Mass Index 36.21 07/20/2024 12:19 PM EDT Plan of Treatment Upcoming Encounters Date Type Department Care Team (Late st Contact Info) Description 09/06/2024 1:30 PM EDT Appointment [facility] [address] [place] [phone] Dennis Vallejo MD [address] [place] [address] 09/06/2024 3:20 PM EDT Follow-Up [facility] [address] [place] [address] Legal Activity Adjudicator: Dennis Laguna MD [address] [place] [id number] 12/06/2024 1:30 PM EDT Follow-Up [facility] [address] [place] [address] Legal Activity Adjudicator: Morales Ramsey MD [address] [place] [id number] Scheduled Procedures Name Priority Associated Diagnoses Date/Ti me ARTHROSCOPY, SHOULDER, WITH ROTATOR CUFF REPAIR Chronic left shoulder pain ARTHROSCOPY, SHOULDER, DEBRI RONAL, EXTENSIVE Chronic left shoulder pain ARTHROSCOPY, SHOULDER, BICEP S TENODESIS Chronic left shoulder pain Health Maintenance Due Date Last Done Comments Cervical Cancer Screening 1968 Cologuard 1968 Colonoscopy 1968 HPV and Pap Smear 1968 Pap Smear 1968 Sigmoidoscopy 1968 Ophthalmology Exam 1978 Hepatitis B Vaccines (1 of 3 - 19+ 3-dose series) 07/20/1987 Pneumococcal Vaccine: 50+ Ye ars (3 of 3 - PCV20 or PCV21) 10/15/2015 10/14/2010, 10/14/2010 Zoster [...] 05/01, 05/20/2022, Additional history exists Influenza Vaccine (#1) 2024 , 01/04/2022, 02/12/2021, Additional history exists Colon Cancer Screening 11/17/2024 FOBT / Fit Test 11/17/2024 11/18/2023 Hemoglobin A1C 11/29/2024 05/30/2024, 12/0 05/2023, 11/18/2023, Additional history exists Urine Microalbumin 04/20/2025 04/20/2024, 0 03/23/2024, 11/11/2023, Additional history exists Basic Metabolic Panel 07/20/2025 07/20/2024 , 06/30/2024, 05/18/2024, Additional history exists RSV Vaccine (60+ years old a nd patients) (1 - 1-dose 75+ series) 07/20/2043 HIV Screening Completed 09/29/2013 Hepatitis C Screening Completed 06/04/2022 Procedures * Due to [place] [employer] law, this organization might not be sharing negative HIV tests. Procedure Name Priority Date/Time Associated Diagnosis Comments DNA AB(DS) CRITHIDIA TITER Routine 07/20/2024 1:58 PM EDT FELI positive Arthralgia, unspecified joint Fibromyalgia COMPREHENSIVE METABOLIC PANEL Routine 07/20/2024 1:58 PM [...] EDT FELI positive Arthralgia, unspecified joint Fibromyalgia DNA ANTIBODY, DOUBLE-STRANDED Routine 07/20/2024 1:58 PM EDT FELI positive Arthralgia, unspecified joint Fibromyalgia DNA ANTIBODY (DS) CRITHIDIA IFA W/REFLEX Routine 07/20/2024 1:58 PM EDT FELI positive Arthralgia, unspecified joint Fibromyalgia MICROALBUMIN, RANDOM URINE WITH CREATININE Routine 04/20/2024 9:23 AM EST FELI positive Arthralgia, unspecified joint HEPATITIS C ANTIBODY W/REFLEX TO HCV RNA, QUANTITATIVE PCR Routine 06/04/2022 5:43 PM EDT FELI positive from Last 3 Months or Most Recently Relevant to Health Maintenance Results * Due to [place] [employer] law, this organization might not be sharing negative HIV tests. * (ABNORMAL) DNA AB(DS) Crithidia Titer (07/20/2024 1:58 PM EDT) DNA Ab Crithidia Titer 1:80(H) <1:10 titer 07/27/2024 8:43 AM EDT [facility] ([facility]) Blood Structure of peripheral vein / Unknown Venipuncture / Unknown 07/20/2024 1:58 PM EDT 07/20/2024 2:39 PM EDT Narrative [facility] - 07/27/2024 8:43 AM EDT [facility] Received Date:[id number] Alonzo Persaud MD LAB BLOOD ORDERABLES Final Result Performing Organization Address [facility] Co de Phone Number [address], [place] [address], [place] [phone] [facility] [address] [place], [place] , [place] * (ABNORMAL) DNA Antibody (ds) Crithidia IFA w/Reflex (07/20/2024 1:58 PM EDT) Pathologist [facility] DNA Ab(ds) Crithidia, IFA Positive(A ) Negative 07/27/2024 8:10 AM EDT [facility] ([facility]) Blood Structure of peripheral vein / Unknown Venipuncture / Unknown 07/20/2024 1:58 PM EDT 07/20/2024 2:39 PM EDT Narrative [facility] - 07/27/2024 8:10 AM EDT [facility] Received Date:[id number] Alonzo Persaud MD LAB BLOOD ORDERABLES Final Result Performing Organization Address [facility]/ZIP Co de Phone Number [address], [place] [address], [place] [phone] [facility] [address] [place] [address], [place] * (ABNORMAL) DNA Antibody, Double-Stranded (07/20/2024 1:58 PM EDT) Pathologist [facility] DNA (Ds) Antibody 65(H) IU/mL 025 11:01 PM EDT [facility] Comment: IU/mL Interpretation < or = 4 Negative 5-9 Indeterminate > or = 10 Positive Blood Structure of peripheral vein / Unknown Venipuncture / Unknown 07/20/2024 1:58 PM EDT 07/20/2024 2:39 PM EDT Narrative [facility] - 07/21/2024 11:01 PM EDT [facility] Received Date: Alonzo Persaud MD LAB BLOOD ORDERABLES Final Result [address], [place] [address], [place] [phone] [facility] [address], [place] [address], [place] [phone] * Sedimentation Rate (07/20/2024 1:58 PM EDT) Pathologist [facility] Sed Rate 28 <30 mm/Hr mm/Hr 07/20/2024 2:52 PM EDT [facility] Blood Structure of peripheral vein / Unknown Venipuncture / Unknown 07/20/2024 1:58 PM EDT 07/20/2024 2:40 PM EDT Alonzo Persaud MD LAB BLOOD ORDERABLES Final Result [facility] [address] [place] [address], [place] * (ABNORMAL) CBC (07/20/2024 1:58 PM EDT) Pathologist [facility] WBC 5.4 3.8 - 10.8 10*3/uL 07/20/2024 2:48 PM EDT [facility] RBC 4.36 3.80 - 5.10 10*6/uL 07/20/2024 2:48 PM EDT [facility] Hemoglobin 12.3 11.7 - 15.5 g/dL 07/20/2024 2:48 PM EDT [facility] Hematocrit 39.0 35.0 - 45.0 % 07/20/2024 2:48 PM EDT [facility] MCV 89.4 80.0 - 100.0 fL 07/20/2024 2:48 PM EDT [facility] MCH 28.2 27.0 - 33.0 pg 07/20/2024 2:48 PM EDT [facility] MCHC 31.5(L) 32.0 - 36.0 g/dL 07/20/2024 2:48 PM EDT [facility] RDW 13.9 11.0 - 15.0 % 07/20/2024 2:48 PM EDT [facility] Platelets 388 140 - 400 10*3/uL 07/20/2024 2:48 PM EDT [facility] MPV 9.4 7.5 - 12.5 fL 07/20/2024 2:48 PM EDT [facility] Blood Structure of peripheral vein / Unknown Venipuncture / Unknown 07/20/2024 1:58 PM EDT 07/20/2024 2:39 PM EDT us Alonzo Persaud MD LAB BLOOD ORDERABLES Final Result [facility] [address] [place] [address], * C3 complement (07/20/2024 1:58 PM EDT) Complement Component C3C 113 83 - 193 mg/dL 07/21/2024 6:58 AM EDT [facility] Blood Structure of peripheral vein / Unknown Venipuncture / Unknown 07/20/2024 1:58 PM EDT 07/20/2024 2:39 PM EDT Narrative [facility] - 07/21/2024 6:58 AM EDT [facility] Received Date: us Alonzo Persaud MD LAB BLOOD ORDERABLES Final Result Performing Organization Address [facility]/ZIP Mi de Phone Number [facility] [address], [place] [address], [place] [phone] [facility] [address], [place] [address], [place] [phone] * C4 complement (07/20/2024 1:58 PM EDT) Complement Component C4C 23 15 - 57 mg/dL 07/21/2024 6:58 AM EDT [facility] Blood Structure of peripheral vein / Unknown Venipuncture / Unknown 07/20/2024 1:58 PM EDT 07/20/2024 2:39 PM EDT [facility]ative [facility] - 07/21/2024 6:58 AM EDT [facility] Received Date: us Alonzo Persaud MD LAB BLOOD ORDERABLES Final Result Performing Organization Address [facility] Co de Phone Number [facility] [address], [place] [address], [place] [phone] [facility] [address], [place] [address], [place] [phone] * (ABNORMAL) C-reactive protein (07/20/2024 1:58 PM EDT) C Reactive Protein 27.0(H) <=9.9 mg/L 07/20/2024 3:12 PM EDT [facility] Blood Structure of peripheral vein / Unknown Venipuncture / Unknown 07/20/2024 1:58 PM EDT 07/20/2024 2:39 PM EDT us Alonzo Persaud MD LAB BLOOD ORDERABLES Final Result [facility] [address] [place] [address], [place] * (ABNORMAL) Comprehensive metabolic panel (07/20/2024 1:58 PM EDT) NA 141 135 - 145 mmol/L 07/20/2024 3:13 PM EDT [facility] K 3.9 3.5 - 5.3 mmol/L 07/20/2024 3:13 PM EDT [facility] Cl 106 98 - 107 mmol/L 07/20/2024 3:13 PM EDT [facility] CO2 25 22 - 32 mmol/L 07/20/2024 3:13 PM EDT [facility] Anion Gap 10 5 - 15 07/20/2024 3:13 PM EDT [facility] Glucose 116(H) 65 - 99 mg/dL 07/20/2024 3:13 PM EDT [facility] Creatinine 0.77 0.50 - 1.20 mg/dL 07/20/2024 3:13 PM EDT [facility] Calcium 8.7 8.6 - 10.5 mg/dL 07/20/2024 3:13 PM EDT [facility] Total Protein 6.9 6.0 - 8.0 g/dL 07/20/2024 3:13 PM EDT [facility] Albumin 3.4(L) 3.5 - 5.2 g/dL 07/20/2024 3:13 PM EDT [facility] Bilirubin, Total <0.2(L) 0.2 - 1.2 mg/dL 07/20/2024 3:13 PM EDT [facility] Alkaline Phosphatase 56 35 - 129 U/L 07/20/2024 3:13 PM EDT [facility] AST 16 10 - 40 U/L 07/20/2024 3:13 PM EDT [facility] ALT 14 10 - 40 U/L 07/20/2024 3:13 PM EDT [facility] BUN 23 7 - 23 mg/dL 07/20/2024 3:13 PM EDT [facility] eGFR >90 >=60 mL/min/1 .73m2 07/20/2024 3:13 PM EDT [facility] Comment:The estimated glomer [...] - 4.2 g/dL 07/20/2024 3:13 PM EDT [facility] A/G Ratio 1.0(L) 1.5 - 3.0 07/20/2024 3:13 PM EDT [facility] Blood Structure of peripheral vein / Unknown Venipuncture / Unknown 07/20/2024 1:58 PM EDT 07/20/2024 2:39 PM EDT us Alonzo Persaud MD LAB BLOOD ORDERABLES Final Result [facility] [address] [place] [address], * Microalbumin, Random Urine with Creatinine (04/20/2024 9:23 AM EST) Microalbumin, Urine <2.0 mg/dL 04/20/2024 12:17 PM EST [facility] Creatinine, Urine 186 15 - 278 mg/dL 04/20/2024 12:17 PM EST [facility] Microalb/Creat Ratio, Random Urine 04/20/2024 12:17 PM EST [facility] Comment: < 1.0 mcg/mgCr Microalbumin Reference Range: Normal <30 mcg/mg Creatinine Microalbuminuria 30-300 mcg/mg Creatinine Clinical Albuminuria >300 mcg/mg Creatinine Reference: ADA Guideline. Diabetes Care. 2004;27 (suppl 1) Urine Voided urine specimen / Unknown Non-Blood Collection / Unknown 04/20/2024 9:23 AM EST 04/20/2024 9:39 AM EST Alonzo Persaud MD LAB URINE ORDERABLES Final Result [facility] [address] [place] [address], [facility] [address] [place] [address], * Hepatitis C Antibody w/Reflex to HCV RNA, Quantitative PCR (06/04/2022 5:43 PM EDT) Pathologist [facility] Hepatitis C Antibody NON-REACT BETO NON-REACT BETO 06/05/2022 3:44 AM EDT [email or web address] Signal To Cut-Off 0.02 <1.00 06/05/2022 3:44 AM EDT [email or web address] [facility] Comment: HCV antibody was non-reactive. There is no laboratory evidence of HCV infection. In most cases, no further action is required. However, if recent HCV exposure is suspected, a test for HCV RNA (test code 92644) is suggested. For additional information please refer to http://education.[employer]/faq/HPX33g9 (This link is being provided for informational/ educational purposes only.) Blood Structure of peripheral vein / Unknown Venipuncture / Unknown 06/04/2022 5:43 PM EDT 06/04/2022 6:08 PM EDT Narrative [facility] - 06/05/2022 3:44 AM EDT [facility] Received Date: us Alonzo Persaud MD LAB BLOOD ORDERABLES Final Result [facility] [address] [facility] [address], [place] [address], [place] [phone] [facility] [address] [facility] [address], [place] [address], [place] [phone] from Last 3 Months or Most Recently Relevant to Health Maintenance Insurance [facility] Care Teams Agriculture Engineer Relationship Specialty Start Date End Date Cristian Chacon MD [address] [place] [address] PCP - General 06/04/22
--- OUTSIDE RECORDS SUMMARY | 2024-08-31 12:46 | XMS_ITS | Clinical Summary ---
Author Organization [facility] Address [address] [place] [address] Care Team Providers Care Straw Baler Name Role Phone Unavailable Primary Care Provider [...] Td or Tdap) 10/14/2020 10/14/2010 Influenza Vaccine (Season Ended) 2024 12/11/2014, 03/13/2009 Pneumococcal Vaccine Aged Out 10/14/2010 No long er eligible based on patient's age to complete this topic RSV Ped < 20 months Aged Out No longe r eligible based on patient's age to complete this topic
--- OUTSIDE RECORDS SUMMARY | 2024-08-31 12:46 | XMS_ITS | Clinical Summary ---
Author Organization [facility] Address [address] [place] [address] Care Team Providers Care Tobacco Buyer Name Role Phone Eduarda Villeda MD Primary Care Provider [phone] Medications No known medications Social History Tobacco [...] season) 2023 03/22/2021, 07/22/2020, 07/01/2020 Influenza (#1) 2024 12/06/2019, 08/07/2018, 12/14/2017, Additional history exists HPV [...] complete this topic Insurance MEDICAID Care Teams Tobacco Buyer Relationship Specialty Start Date End Date Eduarda Villeda MD [address] [id number] PCP - General Internal Medicine 05/12/18
--- OUTSIDE RECORDS SUMMARY | 2024-08-31 12:46 | XMS_ITS | Clinical Summary ---
Author Organization [facility] Address [address] [place] [address] Phone Care Team Providers Care Fabric Worker Foreman Name Role Phone Cristian Chacon Primary Care [...] EDT - 06/30/2024 6:00 PM EDT Emergency [facility] Emergency [address] [place] [id number] Jaime Erickson MD Nonintractable headache, unspecified chronicity pattern, unspecified headache type (Primary Dx); Cervicalgia of kxfjdvht-ccxqfis-bqekr region Discharge Disposition: Home or Self Care from Last 3 Months Surgical History Surgery Date Site/Laterality Comments CARPAL TUNNEL RELEASE Left CATARACT EXTRACTION SECTION HYSTERECTOMY CYST REMOVAL on foot BLADDER bladder mesh BREAST REDUCTION Medical History Medical History Date Comments Fibromyalgia Asthma Diabetes mellitus ([facility] V24, [facility] V28) Hypertension Migraine Lupus (systemic lupus erythematosus) ([facility] V2 4, [facility] V28) GERD (gastroesophageal reflux disease) [...] 90 06/30/2024 3:57 PM EDT Temperature 36.6 C (97.9 F) 06/30/2024 3:57 PM EDT Respiratory Rate 20 06/30/2024 3:57 PM EDT [...] ECG 12-LEAD STAT 06/30/2024 1:27 PM EDT [id number], RSV, FLU A AND B QUALITATIVE RT-PCR, INTERNAL LAB STAT 06/30/2024 1:24 PM EDT [facility] SCREENING DIGITAL Routine 02/27/2018 5:16 PM EST Encounter for screening mammogram for malignant neoplasm of breast from Last 3 Months or Most Recently Relevant to Health Maintenance Results * ECG-Annotated (07/04/2024) us Provider Onbase MD ECG ORDERABLES Final Result * (ABNORMAL) POCT Glucose, blood (06/30/2024 5:23 PM EDT) Glucose POCT 150(H) 70 - 100 mg/dL 06/30/2024 5:25 PM EDT [facility] Blood Capillary blood specimen / Unknown 06/30/2024 5:23 PM EDT 06/30/2024 5:26 PM EDT us Jaime Erickson MD LAB POINT OF CARE T EST DOCKED DEVICE UNSOLICITED RESULTS Final Result [facility] [address] [place] [address], [place] [phone] * Urinalysis with reflex microscopic and culture (06/30/2024 4:03 PM EDT) Specific [place] Urine 1.018 1.003 - 1.030 LAB URINALYSIS - AUTOMATED METHOD 06/30/2024 4:[address] [facility] pH, Urine 7.5 5.0 - 8.0 pH LAB URINALYSIS - AUTOMATED METHOD 06/30/2024 4:[address] [facility] Leukocytes, Urine Negative Negative LAB URINALYSIS - AUTOMATED METHOD 06/30/2024 4:[address] [facility] Nitrite, Urine Negative Negative LAB URINALYSIS - AUTOMATED METHOD 06/30/2024 4:[address] [facility] Protein, Urine Trace <=Trace mg/dL LAB URINALYSIS - AUTOMATED METHOD 06/30/2024 4:[address] [facility] Glucose, Urine Negative Negative mg/dL LAB URINALYSIS - AUTOMATED METHOD 06/30/2024 4:[address] [facility] Ketones, Urine Negative Negative mg/dL LAB URINALYSIS - AUTOMATED METHOD 06/30/2024 4:[address] [facility] Urobilinogen, Urine 1.0 0.2 - 1.0 mg/dL LAB URINALYSIS - AUTOMATED METHOD 06/30/2024 4:[address] [facility] Bilirubin, Urine Negative Negative LAB URINALYSIS - AUTOMATED METHOD 06/30/2024 4:49 PM EDT [facility] Blood, Urine Negative Negative LAB URINALYSIS - AUTOMATED METHOD 06/30/2024 4:49 PM EDT [facility] Urine Urine specimen obtained by clean catch procedure / Unknown Non-blood Collection / Unknown 06/30/2024 4:03 PM EDT 06/30/2024 4:29 PM EDT Jaime Erickson MD LAB URINE ORDERABLES Final Result Performing Organization Address City/[facility]/ZIP Co de Phone Number [facility] [address] [place] [address], [place] [phone] * Lu urine culture tube (06/30/2024 4:03 PM EDT) Extra Tube Hold for add-ons. 06/30/2024 6:01 PM EDT [facility] Comment:Auto resulted. Urine Urine specimen obtained by clean catch procedure / Unknown Non-blood Collection / Unknown 06/30/2024 4:03 PM EDT 06/30/2024 4:29 PM EDT Jaime Erickson MD LAB URINE ORDERABLES Final Result Performing Organization Address City/[facility]/ZIP Co de Phone Number [facility] [address] [place] [address], [place] [phone] * Troponin I high sensitivity (06/30/2024 2:51 PM EDT) Only the most recent of2 resultswithin the time period is included. High Sensitivity Troponin I 5 <=54 ng/L LAB CHEMISTRY METHOD 06/30/2024 4:06 PM EDT [facility] Blood Venous blood specimen / Unknown Venipuncture / Unknown 06/30/2024 2:51 PM EDT 06/30/2024 3:08 PM EDT Narrative [facility] ([facility] - 06/30/2024 4:06 PM EDT High levels of biotin in samples may falsely decrease hsTroponin values. Use caution when interpreting hsTroponin results in patients taking biotin who exhibit renal impairment (eGFR <60) or in patients taking more than 20 mg/day of biotin. us Jaime Erickson MD LAB BLOOD ORDERABLES Final Result [facility] ([facility]) [facility] [address] [place] [address], [place] [phone] * XR Chest 2 Views (06/30/2024 2:37 PM EDT) Anatomical Region Laterality Modality Body Radiographic Amanda ging 06/30/2024 2:50 PM EDT Impressions 06/30/2024 2:52 PM EDT FINDINGS/IMPRESSION: No consolidation or effusion. Stable cardiomediastinal contours without congestive heart failure. Cervical fusion hardware. -------- FINAL REPORT -------- Dictated By: Letty Nicole Dictated Date: 06/30/2024 14:50 ET Assigned Physician: Letty Nicole Reviewed and Electronically Signed By: Letty Nicole Signed Date: 06/30/2024 14:52 ET Workstation ID: [id number] Transcribed By: Self Edit Transcribed Date: 06/30/2024 [...] Signed Date: 06/30/2024 14:52 ET Workstation ID: [id number] Transcribed By: Self Edit Transcribed Date: 06/30/2024 14:50 ET us Jaime Erickson MD IMG XR PROCEDURES Final Res ult * (ABNORMAL) CBC auto differential (06/30/2024 1:34 PM EDT) [facility] WBC 8.1 4.8 - 10.8 K/mcL LAB HEMETOLOGY METHOD 06/30/2024 2:43 PM EDT [facility] RBC 4.30 3.80 - 4.80 M/mcL LAB HEMETOLOGY METHOD 06/30/2024 2:43 PM EDT [facility] Hemoglobin 12.2 11.5 - 16.0 g/dL LAB HEMETOLOGY METHOD 06/30/2024 2:43 PM EDT [facility] Hematocrit 38.8 35.0 - 47.0 % LAB HEMETOLOGY METHOD 06/30/2024 2:43 PM EDT [facility] MCV 89.6 79.0 - 98.0 FL LAB HEMETOLOGY METHOD 06/30/2024 2:43 PM EDT [facility] MCH 28.2 27.0 - 32.0 pcg LAB HEMETOLOGY METHOD 06/30/2024 2:43 PM EDT [facility] MCHC 31.4(L) 32.0 - 37.0 g/dL LAB HEMETOLOGY METHOD 06/30/2024 2:43 PM EDT [facility] RDW 14.5 11.0 - 15.0 % LAB HEMETOLOGY METHOD 06/30/2024 2:43 PM EDT [facility] Platelets 346 130 - 400 K/mcL LAB HEMETOLOGY METHOD 06/30/2024 2:43 PM EDT [facility] MPV 9.6 7.0 - 11.0 FL LAB HEMETOLOGY METHOD 06/30/2024 2:[address] [facility] NRBC 0.0 <1.0 % LAB HEMETOLOGY METHOD 06/30/2024 2:[address] [facility] NRBC Absolute 0.00 <0.10 K/mcL LAB HEMETOLOGY METHOD 06/30/2024 2:[address] [facility] Neutrophils Relative 91.9 % LAB HEMETOLOGY METHOD 06/30/2024 2:[address] [facility] Lymphocytes Relative 5.1 % LAB HEMETOLOGY METHOD 06/30/2024 2:[address] [facility] Monocytes Relative 1.4 % LAB HEMETOLOGY METHOD 06/30/2024 2:[address] [facility] Eosinophils Relative 0.9 % LAB HEMETOLOGY METHOD 06/30/2024 2:[address] [facility] Basophils Relative 0.2 % LAB HEMETOLOGY METHOD 06/30/2024 2:[address] [facility] Immature Granulocytes Relative 0.5 % LAB HEMETOLOGY METHOD 06/30/2024 2:[address] [facility] Neutrophils Absolute 7.44(H) 1.50 - 7.00 K/mcL LAB HEMETOLOGY METHOD 06/30/2024 2:[address] [facility] Lymphocytes Absolute 0.41(L) 1.00 - 5.00 K/mcL LAB HEMETOLOGY METHOD 06/30/2024 2:[address] [facility] Monocytes Absolute 0.11(L) 0.20 - 1.00 K/mcL LAB HEMETOLOGY METHOD 06/30/2024 2:[address] [facility] Eosinophils Absolute 0.07 0.00 - 0.50 K/mcL LAB HEMETOLOGY METHOD 06/30/2024 2:[address] [facility] Basophils Absolute 0.02 0.00 - 0.20 K/mcL LAB HEMETOLOGY METHOD 06/30/2024 2:43 PM EDT [facility] Immature Granulocytes Absolute 0.04(H) 0.00 - 0.03 K/[facility] LAB HEMETOLOGY METHOD 06/30/2024 2:43 PM EDT [facility] Blood Venous blood specimen / Unknown Venipuncture / Unknown 06/30/2024 1:34 PM EDT 06/30/2024 2:20 PM EDT Jaime Erickson MD LAB BLOOD ORDERABLES Final Result Performing Organization Address City/[facility]/ZIP Co de Phone Number [facility] [address] [place] [address], [place] [phone] * B-type natriuretic peptide (06/30/2024 1:34 PM EDT) BNP 25 <=100 pcg/mL LAB CHEMISTRY METHOD 06/30/2024 3:12 PM EDT [facility] Blood Venous blood specimen / Unknown Venipuncture / Unknown 06/30/2024 1:34 PM EDT 06/30/2024 2:20 PM EDT Jaime Erickson MD LAB BLOOD ORDERABLES Final Result Performing Organization Address City/[facility]/ZIP Co de Phone Number [facility] [address] [place] [address], [place] [phone] * Magnesium (06/30/2024 1:34 PM EDT) Magnesium 2.0 1.9 - 2.6 mg/dL LAB CHEMISTRY METHOD 06/30/2024 3:09 PM EDT [facility] Blood Venous blood specimen / Unknown Venipuncture / Unknown 06/30/2024 1:34 PM EDT 06/30/2024 2:20 PM EDT Jaime Erickson MD LAB BLOOD ORDERABLES Final Result Performing Organization Address City/[facility]/ZIP Co de Phone Number [facility] [address] [place] [address], [place] [phone] * Lipase (06/30/2024 1:34 PM EDT) Lipase 28 13 - 75 unit/L LAB CHEMISTRY METHOD 06/30/2024 3:09 PM EDT [facility] Blood Venous blood specimen / Unknown Venipuncture / Unknown 06/30/2024 1:34 PM EDT 06/30/2024 2:20 PM EDT Jaime Erickson MD LAB BLOOD ORDERABLES Final Result Performing Organization Address [facility]/ZIP Co de Phone Number [facility] [address] [place] [address], [place] [phone] * (ABNORMAL) Comprehensive metabolic panel (06/30/2024 1:34 PM EDT) Sodium 137 133 - 145 mmol/L LAB CHEMISTRY METHOD 06/30/2024 3:[address] [facility] Potassium 4.7 3.5 - 5.5 mmol/L LAB CHEMISTRY METHOD 06/30/2024 3:[address] [facility] Chloride 105 96 - 110 mmol/L LAB CHEMISTRY METHOD 06/30/2024 3:[address] [facility] CO2 26 21 - 32 mmol/L LAB CHEMISTRY METHOD 06/30/2024 3:[address] [facility] Anion Gap 6 3 - 11 LAB CHEMISTRY METHOD 06/30/2024 3:[address] [facility] Glucose 193(H) 70 - 100 mg/dL LAB CHEMISTRY METHOD 06/30/2024 3:[address] [facility] BUN 15 5 - 25 mg/dL LAB CHEMISTRY METHOD 06/30/2024 3:[address] [facility] Creatinine 0.76 0.50 - 1.10 mg/dL LAB CHEMISTRY METHOD 06/30/2024 3:[address] [facility] eGFR 93 >=60 mL/min/1. 73m2 LAB CHEMISTRY METHOD 06/30/2024 3:[address] [facility] Comment:Calculation based on the Chronic Kidney Disease Epidemiology Collaboration (CKD-EPI) equation refit without adjustment for race. BUN/Creatinine Ratio 19.7 LAB CHEMISTRY METHOD 06/30/2024 3:[address] [facility] Calcium 8.7 8.5 - 10.5 mg/dL LAB CHEMISTRY METHOD 06/30/2024 3:[address] [facility] AST (SGOT) 15 10 - 42 unit/L LAB CHEMISTRY METHOD 06/30/2024 3:[address] [facility] ALT (SGPT) 17 10 - 60 unit/L LAB CHEMISTRY METHOD 06/30/2024 3:[address] [facility] Alkaline Phosphatase 49 42 - 121 unit/L LAB CHEMISTRY METHOD 06/30/2024 3:[address] [facility] Total Protein 7.0 6.0 - 8.0 g/dL LAB CHEMISTRY METHOD 06/30/2024 3:[address] [facility] Albumin 3.0(L) 3.2 - 5.0 g/dL LAB CHEMISTRY METHOD 06/30/2024 3:[address] [facility] Total Bilirubin 0.4 0.0 - 1.4 mg/dL LAB CHEMISTRY METHOD 06/30/2024 3:[address] [facility] Blood Venous blood specimen / Unknown Venipuncture / Unknown 06/30/2024 1:34 PM EDT 06/30/2024 2:20 PM EDT us Jaime Erickson MD LAB BLOOD ORDERABLES Final Result [facility] [address] [place] [address], * ECG 12 lead (06/30/2024 1:27 PM EDT) Ventricular Rate ECG 96 BPM GEMUSE Atrial Rate 96 BPM GEMUSE P-R Interval 122 ms GEMUSE QRS Duration 68 ms GEMUSE Q-T Interval 354 ms GEMUSE QTc 447 ms GEMUSE P Wave Toutle 70 degrees GEMUSE R Toutle 10 degrees GEMUSE T Toutle 18 degrees GEMUSE ECG Interpretation Normal sinus rhythm Low voltage QRS Abnormal ECG When compared with ECG of 14-APR-2024 00:41, No significant change was found Confirmed by KIMBERLY WARNER ([id number]) on 06/30/2024 6:19:44 PM GEMUSE 06/30/2024 1:27 PM EDT 06/30/2024 6:19 PM EDT Jaime Erickson MD ECG ORDERABLES Final Resul t Performing Organization Address City/[facility] Co de Phone Number GEMUSE * [id number], RSV, Influenza A and B qualitative RT-PCR (06/30/2024 1:24 PM EDT) Pathologist [facility] Influenza A PCR Not Detected Not Detected LAB MICROBIOLOGY METHOD 06/30/2024 3:06 PM EDT [facility] Influenza B PCR Not Detected Not Detected LAB MICROBIOLOGY METHOD 06/30/2024 3:06 PM EDT [facility] RSV PCR Not Detected Not Detected LAB MICROBIOLOGY METHOD 06/30/2024 3:06 PM EDT [facility] SARS COV-2 Not Detected Not Detected LAB MICROBIOLOGY METHOD 06/30/2024 3:06 PM EDT [facility] Swab Nasopharyngeal structure / Unknown Non-blood Collection / Unknown 06/30/2024 1:24 PM EDT 06/30/2024 2:19 PM EDT [facility]ative [facility]) [facility] - 06/30/2024 3:06 PM EDT Disclaimer: Testing was performed using the brotips GeneXpert Xpress SARS-CoV-2 _Flu_RSV PLUS PCR assay. The manner in which this information is used to guide patient care is the responsibility of the healthcare provider. Results should be correlated with the clinical history, epidemiological data, and other data available to the clinician evaluating the patient. Negative results do not preclude infection. This test has been authorized by the FDA under an Emergency Use Authorization (EUA). This test is only authorized for the duration of time the declaration that circumstances exist justifying the authorization of the emergency use of in vitro diagnostic tests for detection of SARS-CoV-2 virus and/or diagnosis of COVID-19 infection under section 564 (b) (1) of the Act, 21 U.S.C 360bbb-3 (b) (1), unless the authorization is terminated or revoked sooner. Reference Range: Not Detected Fact sheet for Healthcare providers can be found at https://www.fda.gov/media/803448/download. Fact sheet for Healthcare patients can be found at https://www.fda.gov/media/265850/download. us Jaime Erickson MD LAB MICROBIOLOGY - GENERAL ORDERABLES Final Result [facility] ([facility]) [facility] [address] [place] [address], * DIANE SCREENING DIGITAL (02/27/2018 5:16 PM EST) Anatomical Region Laterality Modality Mammography 02/24/2018 10:4 4 AM EST Narrative 02/27/2018 5:16 PM EST [facility] Diagnostic Imaging Department [address] [place] [address] Patient: SCARLETT NEUMANN /Age/Sex: 1970 - 47 - F Unit#: [id number] [facility]ing Site[facility] Ordering Physician: GABRIELA VILLEDA MD Diane Screening Digital - 02/27/18 - 0758 INDICATION: SCREENING COMPARISON: [facility] mammograms dating back to 08/05/2012 FINDINGS: CC and MLO views of the breasts were obtained, using full field digital mammography with 3D tomosynthesis views in the MLO projection. Computer aided detection with the Ploonge 7.2-H was employed. History of reduction mammoplasty [...] or areas of architectural distortion are identified. There are no secondary signs of breast malignancy. Compared to the prior exam, no adverse interval change. IMPRESSION: No specific mammographic evidence of breast malignancy. Lack of a mammographic finding in the presence of a clinically suspicious palpable abnormality does not preclude the possibility of malignancy or alter the indications for biopsy. BI-RADS - Category 2 - Benign finding 3342F, 7025F Annual screening mammography is recommended. Patient entered into a reminder system with a target date for the next mammogram. ([id number] / [id number]) , [id number] Dictating Physician: YONG WEATHERS MD Electronically Signed by: YONG WEATHERS MD Dic Date/Time: 02/27/181711 Sign date/Time: 02/27/181715 Procedure Note Yong Weathers MD - 02/18/2022 [facility] Diagnostic Imaging Department [address] [place] [id number] Patient: THIENSCARLETT /Age/Sex: 1970 - 47 - F Unit#: [id number] Location/Status: SPDIMAM/REG CLI Mnemonic/Ordering Site: [facility] Ordering Physician: GABRIELA VILLEDA MD Diane Screening Digital - 02/27/18 - 0758 INDICATION: SCREENING COMPARISON: [facility] mammograms dating back to 08/05/2012 FINDINGS: CC and MLO views of the breasts were obtained, using full field digital mammography with 3D tomosynthesis views in the MLO projection. Computeraided detection with the Ploonge 7.2-H was employed. History of reduction mammoplasty [...] date for the next mammogram. ([id number] / [id number]) , [id number] Dictating Physician: YONG WEATHERS MD Electronically Signed by: YONG WEATHERS MD Dic Date/Time: 02/27/181711 Sign date/Time: 02/27/181715 Gabriela Villeda MD IMG BI PROCEDURES Final R esult from Last 3 Months or Most Recently Relevant to Health Maintenance Insurance MEDICAID - [place] Care Teams Fabric Worker Foreman Relationship Specialty Start Date End Date Cristian Chacon [address] [place], [place] PCP - General Internal Medicine 10/17/20
--- OUTSIDE RECORDS SUMMARY | 2024-08-31 12:46 | XMS_ITS | Clinical Summary ---
Author Organization [facility] Address [address] [place] [address] Care Team Providers Care Trades Helper Name Role Phone Dirk Mcdowell RD Primary Care Provider [phone] Source Comments PLEASE NOTE, if this patient [...] /3 mL (0.083 %) nebulizer solution Per computer help desk specialist 0 5 Active FLOVENT HFA 220 mcg/actuation inhaler Per computer help desk specialist 3 5 Active fluticasone (FLONASE) 50 mcg/actuation nasal spray Per computer help desk specialist 3 5 Active hydrOXYzine (ATARAX) 25 mg tablet Per computer help desk specialist 0 5 Active montelukast (SINGULAIR) 10 mg tablet Per computer help desk specialist 3 5 Active terbinafine HCl (LAMISIL) 250 mg tablet Per computer help desk specialist 1 5 Active ketoconazole (NIZORAL) 2 % cream Per computer help desk specialist 3 5 Active metroNIDAZOLE (METROCREAM) 0.75 % cream Per computer help desk specialist 3 5 Active traZODone (DESYREL) 50 mg tablet Per Psych 4 5 Active traMADol (ULTRAM) 50 mg tablet Per [facility] 0 5 Active cromolyn (OPTICROM) 4 % ophthalmic solution Per computer help desk specialist 3 5 Active baclofen (LIORESAL) 10 [...] Date Diagnosed Date H/O mammogram 3 at [facility]. Normal. due Gavino h 201505/12/2014 Left ovarian cyst 07/14/2013 Overview (07/14/2013): S/P US PELVIS 07/04/13 DUE PELVIC PAIN. 2.9 X 3.8 X 3 CM LEFT ADNEXAL CYSTIC LESION, MOST LIKELY HEMORRHAGIC OVARIAN CYST. 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 Allergic rhinitis due to allergen 2008 GERD (gastroesophageal reflux disease) 8 Hypothyroidism 05/13/2007 Overview (09/29/2013): + CARLOS EDUARDO'S THYROIDITIS, ENDO F/U with Dr Mcdowell Anxiety and depression 05/13/2007 Overview (02/01/2013): F/U [facility] (DR. NANCE). Insomnia 05/13/2007 Overview (02/01/2013): F/U AT [facility] (DR. NANCE). Mild persistent asthma ([facility]) 05/13/2007 Chronic neck pain LBP [...] 91 05/16/2015 1:07 PM EDT Temperature 36.7 C (98.1 F) 05/16/2015 1:07 PM EDT Respiratory Rate 14 05/16/2015 1:07 PM EDT [...] Cancer Screening 1989 Pap Smear 1989 Imm-Pneumococcal 50+ (2 of 2 - PCV) 10/15/2011 10/14/2010 CT Colonography 2013 Colonoscopy 2013 Colorectal Cancer Screening 2013 FIT/gFOBT 2013 Fecal DNA 2013 Flexible Sigmoidoscopy 2013 Lipid Screening 11/25/2015 11/24/2014 TSH Monitoring 03/06/2016 03/06/2015, 11/01, 09/29/2013 Hypertension Screening (#1) 05/15/2016 Imm-Zoster, Recombinant (2 of 2) 06/08/2019 02/12/20 20 Imm-DTaP/Tdap/Td (2 - Td or Tdap) 10/14/2020 011 Diabetes Screening 06/20/2023 06/19/2022, 0 11/24/2014, 11/24/2014, Additional history exists Yta-PDOMV-75 ( season) 2023 03/22/2021, 07/22/2020, 07/01/2020 Alcohol and Drug Screen 03/02/2024 05/31/2014 Breast Cancer Screening (Mammogram) 05/20/2024 05/20/2022 Imm-Influenza (#1) 2024 02/12/2021, 1 , 10/25/2018, Additional history exists HIV Screening Completed 09/29/2013 Hepatitis C Screening [...] TSH CASCADE 2.25 0.40 - 4.00 uIU/ml [facility] Blood specimen (specimen) Blood / Unknown 03/06/2015 11:48 AM EST 03/06/2015 11:50 AM EST Narrative [facility] - 03/07/2015 1:30 PM EST [employer] [address] [place] [address] [place] ID [id number] ORD# [id number] Sophia Blue MD LAB - BLOOD RICH W Final Result Performing Organization Address City/[facility]/ZIP Co de Phone Number [facility] [address] [place] [address], [place] [phone] * (ABNORMAL) LIPID PANEL (11/24/2014 11:00 AM EDT) CHOLESTEROL 166 0 - 200 mg/dL [facility] TRIGLYCERIDES 86 0 - 150 mg/dL [facility] HDL CHOLESTEROL 46 >40 mg/dL [facility] LDL CALCULATED 103(H) 0 - 100 mg/dL [facility] TC-HDLC RATIO 3.6 0 - 4.4 mg/dL [facility] Blood specimen (specimen) Blood / Unknown 11/24/2014 11:00 AM EDT 11/24/2014 11:06 AM EDT Narrative [facility] - 11/24/2014 12:35 PM EDT [facility] [address] [place] [address] [place] [id number] ORD# [id number] Sophia Blue MD LAB - BLOOD RICH W Final Result Performing Organization Address [facility]/ZIP Co de Phone Number [facility] [address] [place] [address], [place] [phone] * COMPRE METAB PANEL (11/24/2014 11:00 AM EDT) GLUCOSE 88 70 - 100 mg/dL [facility] Comment:Reference range appl icable to fasting specimens only BUN 22 5 - 25 mg/dL [facility] CREAT 0.67 0.5 - 1.1 mg/dL [facility] GLOMERULAR FILTRATION RATE > 60 [facility] Comment: If patient is -[place], multiply result by 1.21 Chronic Kidney Disease: < 60 ml/min/1.73 square meters Kidney Failure: < 15 ml/min/1.73 square meters SODIUM 140 133 - 145 mEq/L [facility] POTASSIUM 4.6 3.5 - 5.5 mEq/L [facility] CHLORIDE 105 96 - 110 mEq/L [facility] CO2 30 21 - 32 mEq/L [facility] ANION GAP 5 3 - 11 [facility] CALCIUM 9.6 8.5 - 10.5 mg/dL [facility] TOTAL PROTEIN 7.5 6.0 - 8.0 G/dL [facility] ALBUMIN 4.5 3.2 - 5.0 G/dL [facility] BILI, TOTAL 0.4 0.0 - 1.4 mg/dL [facility] SGOT 22 10 - 42 U/L [facility] SGPT 18 10 - 60 U/L [facility] ALK PHOS 74 42 - 121 U/L [facility] Blood specimen (specimen) Blood / Unknown 11/24/2014 11:00 AM EDT 11/24/2014 11:06 AM EDT Narrative [facility] - 11/24/2014 12:35 PM EDT [facility] [address] [place] [address] PT ID [id number] ORD# [id number] [place] Sophia Blue MD LAB - BLOOD DRA De Jesus Final Result [address] [id number], * HEPATITIS A,B,C PANEL (09/29/2013 3:21 PM EDT) HEPATITIS B SURFACE ANTIBODY NEGATIVE NEGATIVE [facility] HEPATITIS B SURFACE ANTIGEN NEGATIVE NEGATIVE [facility] HEPATITIS C VIRUS ANTIBODY NEGATIVE NEGATIVE [facility] HEPATITIS A ANTIBODY TOTAL NEGATIVE NEGATIVE [facility] HEPATITIS B CORE ANTIBODY NEGATIVE NEGATIVE [facility] Blood specimen (specimen) Blood / Unknown 09/29/2013 3:21 PM EDT 09/29/2013 4:24 PM EDT [facility] - 09/29/2013 9:50 PM EDT [facility] [address] [place] [address] PT ID [id number] ORD# [id number] Sophia Blue MD LAB - BLOOD DRA De Jesus Edited Result - Final [facility] [address] [place] [address], [place] [phone] * HIV-1 & HIV-2 ANTIBODIES (09/29/2013 3:21 PM EDT) [facility] HIV 1 AND 2 ANTIBODY SCREEN NEGATIVE NEGATIVE [facility] Blood specimen (specimen) Blood / Unknown 09/29/2013 3:21 PM EDT 09/29/2013 4:24 PM EDT [facility] - 09/30/2013 12:03 PM EDT [facility] [address] [address] [place] [address] PT ID [id number] ORD# [id number] Sophia Blue MD LAB - BLOOD DRA De Jesus Final Result [facility] [address] [place] [address], [place] [phone] from Last 3 Months or Most Recently Relevant to Health Maintenance Insurance [id number] Care Teams Trades Helper Relationship Specialty Start Date End Date Dirk Mcdowell [address] [place] [address] PCP - General Nutrition 08/02/15
[2024-08-31 12:51] VITALS: BP 122/68; PULSE 78; BMI 39.1
--- NOTE | 2024-08-31 12:51 | MHC.OFFVIS ---
Vital Signs 08/31/24 12:51 Height 5 ft Weight 200 lb BMI 39.1 BP 122/68 Blood Pressure Location Lt brachial Position Sitting Pulse 78 Pulse Source Pulse Oximeter Intake Visit Reasons: f/up day and echo Environmental Studies Program Director Required: Yes Environmental Studies Program Director Name: GUERLINE [id number] Allergies duloxetine (From CYMBALTA) Allergy (Unknown, Verified 08/24/24 13:47) UNKNOWN pregabalin (From LYRICA) Allergy (Unknown, Verified 08/24/24 13:47) UNKNOWN meperidine (From DEMEROL) Adverse Reaction (Intermediate, Verified 08/24/24 13:47) N/V oxycodone (From Percocet) Adverse Reaction (Intermediate, Verified 08/24/24 13:47) itching Medication List - Last Reconciled 08/31/24 by Randy Ames NP albuterol sulfate 90 mcg/actuation 2 puffs inhalation Q6H PRN amitriptyline 10 mg PO BEDTIME dicyclomine 20 mg PO QID 30 days fluconazole (Diflucan) 100 mg PO DAILY 14 days fluticasone propion-salmeterol 230-21 mcg/actuation (Advair HFA) 2 puffs inhalation BID fluticasone propionate 50 mcg/actuation 1 inh inhalation BID linaclotide (Linzess) 72 mcg PO QAM loratadine 10 mg PO DAILY lorazepam 2 mg PO BEDTIME PRN losartan 25 mg PO QAM montelukast (Singulair) 10 mg PO BEDTIME omeprazole 40 mg PO BID 30 days prednisone 10 mg PO DIRECTED prednisone 5 mg PO BID sertraline 50 mg PO BEDTIME sumatriptan succinate 50 - 100 mg orally at onset of headache, may repeat in 2 hrs PRN; max 2 tabs per day or 4 tabs/week (may take with Ibuprofen) 30 days tizanidine 2 mg PO Q6H PRN zolpidem 10 mg PO BEDTIME PRN HPI Comments Details: This is a 54-year-old female patient coming in for a follow-up visit. A hospital secretary was used throughout the visit. Patient with a history of hypertension, asthma, fibromyalgia, diabetes, and obesity. Patient has been seen in the office previously for intermittent chest pain and palpitations that has been ongoing since March of this year occurring both with exertion and at rest. Patient underwent an echo study and a Holter monitor but never completed her coronary CTA. Today, patient reports ongoing mid chest pain that is mostly intermittent but currently having chest pain and is reproducible with palpation. Patient also reports occasional shortness of breath with these episodes. Patient is otherwise denying any palpitations, dizziness, orthopnea, PND, leg edema, presyncope, or syncope. COUNTS INCLUDE 234 BEDS AT THE [facility] Medical History Erosive esophagitis Pre-op examination Chronic idiopathic constipation Colon cancer screening Hemifacial spasm Abdominal pain Pelvic pain in female Bilateral shoulder pain Vulvar irritation WISE (nonalcoholic steatohepatitis) Elevated antinuclear antibody (FELI) level FELI positive Encounter to discuss test results Hemifacial spasm of left side of face Peptic ulcer disease Esophageal spasm Family history of cerebral aneurysm Fibromyalgia Irritable bowel syndrome with both constipation and diarrhea History of meningitis Surgical History History of esophagogastroduodenoscopy (EGD) Keloid of skin H/O neck surgery Hx of section Hx of hysterectomy Hx of breast lump removal (~2019) History of bladder suspension procedure H/O bilateral breast reduction surgery Family History Mother Aneurysm Endometrial cancer Father No problems noted. Social History Alcohol intake: never Patient Tobacco Use Status: Never used Tobacco Sexual orientation: Straight/Heterosexual Gender identity: Female Review of Systems Const Denies weakness ENT Denies dizziness Card Denies chest pain, Denies chest pain with activity, Denies syncope, Denies rapid heart rate, Denies pedal edema, Denies edema, Denies leg edema, Denies lightheadedness, Denies palpitations, Denies dyspnea, Denies dyspnea on exertion and Denies orthopnea Resp Denies cough, Denies dyspnea and Denies dyspnea on exertion GI Denies hematochezia and Denies change in stool character Musc Denies abnormal gait, Denies muscle cramps, Denies muscle weakness, Denies numbness, Denies radiating pain into limb and Denies tingling Neuro Denies abnormal gait, Denies dizziness, Denies syncope, Denies numbness, Denies tingling and Denies weakness Endo Denies palpitations Physical Exam Vital Signs: Last Vital Signs Pulse 78 08/31/24 12:51 BP 122/68 08/31/24 12:51 BMI result Body Mass Index 39.1 Const General: cooperative, healthy appearing, comfortable and no acute distress Orientation/consciousness: patient oriented x3 HEENT Head: Yes normal to inspection Neck Neck: Yes normal visual inspection, Yes trachea midline and Yes supple Chest Chest palpation & inspection: normal inspection of the chest Resp Effort & Inspection: normal respiratory effort Auscultation: clear to auscultation bilaterally, no crackles, no rales, no rhonchi and no wheezes Cardio Jugular venous distension: no JVD Palpation: normal PMI Rate: regular rate Rhythm: regular rhythm Heart sounds: S1 normal heart sound present, S2 normal heart sound present, no click, no gallops, no murmurs and no rubs Peripheral pulses: Peripheral pulses 2+ throughout GI Inspection: Yes normal to inspection Palpation (GI): Soft to palpation Auscultation: normal bowel sounds Skin General skin exam: no rashes or lesions noted Neuro General: patient oriented x3 Extrem General: Yes normal to inspection, No no pedal edema and No calf tenderness Psych Appearance: grossly normal Mental Status: mental status grossly normal Speech and movement: Normal speech and movement present Assessment & Plan Assessment & Plan (1) Chest pain: Code(s): R07.9 - Chest pain, unspecified Category: Medical Plan: 05/25/2024-patient underwent a Holter study for reports of palpitations and it showed underlying sinus rhythm with an average heart rate of 91 beats per minute, rare supraventricular and ventricular ectopies. 05/25/2024-patient's echo study showed a normal LV systolic function with an ejection fraction between 60-65%. Patient continues to have the intermittent chest pain which is reproducible with palpation. While the patient's symptoms continue to a bare atypical, due to her risk factors including hypertension, diabetes, obesity and family history of cardiovascular disease warrants further investigation to rule out any potential obstructive coronary artery disease. Patient does not want to repeat a myocardial perfusion study and therefore a coronary CTA was ordered last time which is not been completed. Requested the patient to complete this before next visit. Patient agreeable of the plan. Patient's A1c should be less than 7.0. LDL goal less than 100. (2) Hypertension: Code(s): I10 - Essential (primary) hypertension Category: Medical Plan: Blood pressure today is well-controlled. No medication changes at this time. Advised to continue monitor blood pressures at home. Ideally, blood pressure goal less than 130/80. Recommended heart healthy diet, regular exercise, losing weight, aggressive management of vascular risk factors. Patient will follow up in 3 months. In the interim, patient will call us with any concerns or change in symptoms. Advised patient to seek ER care in case of exertional chest pain not resolved with rest. This note was generated using voice recognition software. While every effort has been made to ensure accuracy and proper website developer, there may be occasional errors that could affect the content or meaning of the described symptoms. Orders: Orders Basic Metabolic Panel Today R07.9 - Chest pain, unspecified Coding Level of Care Code Est Pt Level 4 (50227) Complex EM visit Add On G2211 Diagnoses Chest pain R07.9 Hypertension I10 Time Spent (min) 31 Comment Time spent in reviewing the chart, test results, assessment, counseling and documentation.
== END 2024-08-31 13:17 | disposition home or self-care (01) ==
LOC: HO.HCS 12:06
PROVIDERS: PCP Family Medicine
DX: R07.9 Chest pain, unspecified (principal); I10 Essential (primary) hypertension
CPT/HCPCS: 99214

== ENCOUNTER → 2024-08-31 12:05 | Outpatient (BNVA) | payer MEDICAID, SELFPAY | PROVIDERS: PCP Family Medicine | DX: I10 Essential (primary) hypertension (principal); R07.9 Chest pain, unspecified | CPT/HCPCS: 99212 ==

== ENCOUNTER 2024-09-09 07:39 | Outpatient (AMB) | payer MEDICAID, SELFPAY ==
[2024-09-09 07:40] VITALS: BP 116/74; PULSE 74; O2SAT 96; BMI 39.1
--- NOTE | 2024-09-09 07:40 | MHC.OFFVIS ---
Vital Signs 09/09/24 07:40 Height 5 ft Weight 200 lb BMI 39.1 BP 116/74 Blood Pressure Location Lt brachial Position Sitting Pulse 74 Pulse Source Pulse Oximeter Pulse Oximetry (%) 96 Oxygen Delivery Method Room Air Intake Visit Reasons: Botox Intake Note: Patient presents for Botox injection Sanitarian Required: Yes Sanitarian Services: Sanitarian Offered & Declined Accompanied by: Self / Same As Patient Allergies duloxetine (From CYMBALTA) Allergy (Unknown, Verified 09/09/24 07:44) UNKNOWN pregabalin (From LYRICA) Allergy (Unknown, Verified 09/09/24 07:44) UNKNOWN meperidine (From DEMEROL) Adverse Reaction (Intermediate, Verified 09/09/24 07:44) N/V oxycodone (From Percocet) Adverse Reaction (Intermediate, Verified 09/09/24 07:44) itching Medication List - Last Reconciled 09/09/24 by Maryam Negro MD albuterol sulfate 90 mcg/actuation 2 puffs inhalation Q6H PRN amitriptyline 10 mg PO BEDTIME dicyclomine 20 mg PO QID 30 days fluconazole (Diflucan) 100 mg PO DAILY 14 days fluticasone propion-salmeterol 230-21 mcg/actuation (Advair HFA) 2 puffs inhalation BID fluticasone propionate 50 mcg/actuation 1 inh inhalation BID linaclotide (Linzess) 72 mcg PO QAM loratadine 10 mg PO DAILY lorazepam 2 mg PO BEDTIME PRN losartan 25 mg PO QAM montelukast (Singulair) 10 mg PO BEDTIME omeprazole 40 mg PO BID 30 days prednisone 10 mg PO DIRECTED prednisone 5 mg PO BID sertraline 50 mg PO BEDTIME sumatriptan succinate 50 - 100 mg orally at onset of headache, may repeat in 2 hrs PRN; max 2 tabs per day or 4 tabs/week (may take with Ibuprofen) 30 days tizanidine 2 mg PO Q6H PRN zolpidem 10 mg PO BEDTIME PRN HPI Comments Details: 54y/o female comes for treatment of her Left hemifacial spasm with botox Botulinum toxin type A Lot no [id number] Exp 11/2026 was diluted with 2 cc of normal saline at a concentration of 5 units in 0.1 cc. Side effects were discussed and an informed consent was obtained. Muscles injected Christopher Lateral canthus - 15 units each left Nasolabial fold 10 units each Left zygomaticus 10 units Total used 50 units discarded 50 units PFSH Medical History Erosive esophagitis Pre-op examination Chronic idiopathic constipation Colon cancer screening Hemifacial spasm Abdominal pain Pelvic pain in female Bilateral shoulder pain Vulvar irritation WISE (nonalcoholic steatohepatitis) Elevated antinuclear antibody (FELI) level FELI positive Encounter to discuss test results Hemifacial spasm of left side of face Peptic ulcer disease Esophageal spasm Family history of cerebral aneurysm Fibromyalgia Irritable bowel syndrome with both constipation and diarrhea History of meningitis Surgical History History of esophagogastroduodenoscopy (EGD) Keloid of skin H/O neck surgery Hx of section Hx of hysterectomy Hx of breast lump removal (~2019) History of bladder suspension procedure H/O bilateral breast reduction surgery Family History Mother Aneurysm Endometrial cancer Father No problems noted. Social History Alcohol intake: never Patient Tobacco Use Status: Never used Tobacco Sexual orientation: Straight/Heterosexual Gender identity: Female Physical Exam Vital Signs: Last Vital Signs Pulse 74 09/09/24 07:40 BP 116/74 09/09/24 07:40 Pulse Ox 96 09/09/24 07:40 Oxygen Delivery Method Room Air 09/09/24 07:40 BMI result Body Mass Index 39.1 Const General: cooperative and no acute distress Orientation/consciousness: patient oriented x3 HEENT Head: Yes normocephalic Neuro General: patient oriented x3, gait normal and CN's II-XI intact bilaterally (w/ exception of Left lower hemifascial spasm.) Cognition (Neuro): normal cognition Office Procedures Botulinum toxin Injection 87851 - Facial Nerve Procedure code (CPT) selection complete Office Meds onabotulinumtoxinA 100 unit solution for injection Performing Provider: Maryam Negro MD Performing Location: [facility] [place] [facility] [place] [facility] Administered by: Maryam Negro MD on 09/09/24 08:13 Dose Route Admin Location Dispensed Lot Number Expiration Date NDC Acid Tester 50 unit subcut 100 units [id number] [employer]ER[employer]/BOTOX Total Dispensed Waste 100 units 50 % Comments: see hpi Assessment & Plan Assessment & Plan (1) Hemifacial spasm of left side of face: Code(s): G51.32 - Clonic hemifacial spasm, left Category: Medical Plan Patient tolerated the procedure well she will call with any side effects Orders: Orders AMB Botulinum toxin Injection Today G51.39 - Clonic hemifacial spasm, unspecified Coding Level of Care Code Est Pt Level 1 (22324) Diagnoses Hemifacial spasm of left side of face G51.32 CPT Codes Botox Injection - Botox 2: 71845 - Facial Nerve ([id number])
--- OUTSIDE RECORDS SUMMARY | 2024-09-09 07:41 | XMS_ITS | Clinical Summary ---
Author Organization [facility] Address [address] [place] [address] Care Team Providers Care Home Companion Name Role Phone Dirk Mcdowell RD Primary Care Provider [phone] Source Comments PLEASE NOTE, if this patient [...] /3 mL (0.083 %) nebulizer solution Per clinical informatics specialist 0 5 Active FLOVENT HFA 220 mcg/actuation inhaler Per clinical informatics specialist 3 5 Active fluticasone (FLONASE) 50 mcg/actuation nasal spray Per clinical informatics specialist 3 5 Active hydrOXYzine (ATARAX) 25 mg tablet Per clinical informatics specialist 0 5 Active montelukast (SINGULAIR) 10 mg tablet Per clinical informatics specialist 3 5 Active terbinafine HCl (LAMISIL) 250 mg tablet Per clinical informatics specialist 1 5 Active ketoconazole (NIZORAL) 2 % cream Per clinical informatics specialist 3 5 Active metroNIDAZOLE (METROCREAM) 0.75 % cream Per clinical informatics specialist 3 5 Active traZODone (DESYREL) 50 mg tablet Per Psych 4 5 Active traMADol (ULTRAM) 50 mg tablet Per [facility] ER 0 5 Active cromolyn (OPTICROM) 4 % ophthalmic solution Per clinical informatics specialist 3 5 Active baclofen (LIORESAL) 10 [...] Date Diagnosed Date H/O mammogram 3 at [facility]. Normal. due Gavino h 201505/12/2014 Left ovarian cyst 07/14/2013 Overview (07/14/2013): S/P US PELVIS 07/04/13 DUE PELVIC PAIN. 2.9 X 3.8 X 3 CM LEFT ADNEXAL CYSTIC LESION, MOST LIKELY HEMORRHAGIC OVARIAN CYST. 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 Allergic rhinitis due to allergen 2008 GERD (gastroesophageal reflux disease) 8 Hypothyroidism 05/13/2007 Overview (09/29/2013): + CARLOS EDUARDO'S THYROIDITIS, ENDO F/U with Dr Mcdowell Anxiety and depression 05/13/2007 Overview (02/01/2013): F/U [facility] (DR. NANCE). Insomnia 05/13/2007 Overview (02/01/2013): F/U AT [facility] (DR. NANCE). Mild persistent asthma ([facility]) 05/13/2007 Chronic neck pain LBP (low back [...] 06/19/2022, 0 11/24/2014, 11/24/2014, Additional history exists [id number] ( season) 2023 03/22/2021, 07/22/2020, 07/01/2020 Alcohol [...] TSH CASCADE 2.25 0.40 - 4.00 uIU/ml [facility] specimen (specimen) Blood / Unknown 03/06/2015 11:48 AM EST 03/06/2015 11:50 AM EST Narrative [facility] - 03/07/2015 1:30 PM EST [facility] [address] [place] [address] PT ID [id number] ORD# [id number] Sophia Blue MD LAB - BLOOD RICH W Final Result Performing Organization Address City/[facility]/ZIP Co de Phone Number [facility] [address] [place] [address], [place] [phone] * (ABNORMAL) LIPID PANEL (11/24/2014 11:00 AM [...] - 11/24/2014 12:35 PM EDT [facility] [employer] [address] [place] [address] PT ID [id number] ORD# [id number] Sophia Blue MD LAB - BLOOD RICH W Final Result Performing Organization Address City/[facility]/ZIP Co de Phone Number [facility] [address] [place] [address], [place] [phone] * COMPRE METAB PANEL (11/24/2014 11:00 AM EDT) GLUCOSE 88 70 - 100 mg/dL [facility] Comment:Reference range appl icable to fasting specimens only BUN 22 5 - 25 mg/dL [facility] CREAT 0.67 0.5 - 1.1 mg/dL [facility] GLOMERULAR FILTRATION RATE > 60 [facility] Comment: If patient is -[place], multiply result by 1.21 Chronic Kidney Disease: [...] - 11/24/2014 12:35 PM EDT [facility] [employer] [address] [place] [address] [place] [id number] ORD# [id number] us Sophia Blue MD LAB - BLOOD DRA De Jesus Final Result [address] [address], * HEPATITIS A,B,C PANEL (09/29/2013 3:21 PM [...] 3:21 PM EDT 09/29/2013 4:24 PM EDT [facility] - 09/29/2013 9:50 PM EDT [facility] [address] [place] [address] PT ID [id number] ORD# [id number] Sophia Blue MD LAB - BLOOD DRA De Jesus Edited Result - Final [facility] [address] [place] [address], [place] [phone] * HIV-1 & HIV-2 ANTIBODIES (09/29/2013 3:21 PM EDT) [facility] HIV 1 AND 2 ANTIBODY SCREEN NEGATIVE NEGATIVE [facility] Blood specimen (specimen) Blood / Unknown 09/29/2013 3:21 PM EDT 09/29/2013 4:24 PM EDT [facility] - 09/30/2013 12:03 PM EDT [facility] [address] [place] [address] PT ID [id number] ORD# [id number] Sophia Blue MD LAB - BLOOD DRA De Jesus Final Result [facility] [address] [place] [address], [place] [phone] from Last 3 Months or Most Recently Relevant to Health Maintenance Insurance [employer] Care Teams Home Companion Relationship Specialty Start Date End Date Dirk Mcdowell RD [address] [place] [address] PCP - General Nutrition 08/02/15
--- OUTSIDE RECORDS SUMMARY | 2024-09-09 07:41 | XMS_ITS | Encounter Summary ---
Author Organization [employer] Address [address] [place] [address] Care Team Providers Care Cloth Bleaching Range Operator Chief Name Role Phone Cristian Chacon MD Primary Care Prov ider Encounter Details Date Type Department Care Team ([facility] Contact Info) Description 06/30/2024 Orders Only [facility] [address], [place] [phone] Provider, MD Roderick Social History Tobacco Use [...] the past 12 months, has t he [employer], oil or water [employer] threatened to shut off services in your [...] 09/29/2024 2:45 PM EDT Office Visit [facility] [address] [place], [place] [phone] Eduarda Villeda MD [address] [place], [place] [phone] documented as of this encounter Procedures Procedure [...] documented as of this encounter Care Teams Cloth Bleaching Range Operator Chief Relationship Specialty Start Date End Date Cristian Chacon MD [address] [place], [place] [phone] PCP - General Internal Medicine 03/17/19 Ivy Payne Test DeskmanSupervisor Stripping 11/26/23 documented as of this encounter
--- OUTSIDE RECORDS SUMMARY | 2024-09-09 07:41 | XMS_ITS | Clinical Summary ---
Author Organization [facility] Address [address] [place] [address] Phone Care Team Providers Care Punch Machine Hand Name Role Phone Cristian Chacon Primary Care [...] EDT - 06/30/2024 6:00 PM EDT Emergency [facility] Emergency [address] [place] [phone] Jaime Erickson MD Nonintractable headache, unspecified chronicity pattern, unspecified headache type (Primary Dx); Cervicalgia of uzpdbelg-ezfkftv-wieln region Discharge Disposition: Home or Self Care from Last 3 Months Surgical History Surgery Date Site/Laterality Comments CARPAL TUNNEL RELEASE Left CATARACT EXTRACTION SECTION HYSTERECTOMY CYST REMOVAL on foot BLADDER bladder mesh BREAST REDUCTION Medical History Medical History Date Comments Fibromyalgia Asthma Diabetes mellitus ([facility] V24, [facility] V28) Hypertension Migraine Lupus (systemic lupus erythematosus) ([facility] V2 4, [facility] V28) GERD (gastroesophageal reflux disease) Gastritis Anxiety [...] 2024 12/18/2023, 01/04/2022, 03/22/2021, Additional history exists Influenza Vaccine (#1) 2024 , 12/11/2022, 01/04/2022, Additional history exists Depression Screening 12/21/2024 12/22/2023 Diabetes: Annual Urine Albumin-Creatinine Ratio (uACR) 04/20/2025 04/20/2024, 04/20/2024, 03/23/2024, Additional history exists Diabetes: Annual GFR (Glomerular Filtration Rate) 06/30/2025 06/30/2024, 05/18/2024, 05/03/2024, Additional history exists Hypertension/CHF/CAD Annual BMP Blood Test 06/30/2025 06/30/2024, 05/18/2024, 05/03/2024, Additional history exists Cholesterol Screening (Lipid Panel) 11/26/2026 11/26/2021, 11/24/2014 HIV Screening Completed 09/29/2013 Hepatitis C Screening Completed 06/04/2022 HIB Vaccines Aged Out No longer eligi [...] ECG 12-LEAD STAT 06/30/2024 1:27 PM EDT [id number], RSV, FLU A AND B QUALITATIVE RT-PCR, [...] - 100 mg/dL 06/30/2024 5:25 PM EDT [facility]) [facility] Blood Capillary blood specimen / Unknown 06/30/2024 5:23 PM EDT 06/30/2024 5:26 PM EDT us Jaime Erickson MD LAB POINT OF CARE T EST DOCKED DEVICE UNSOLICITED RESULTS Final Result [facility] [address] [place] [address], [place] [phone] * Urinalysis with reflex microscopic and culture (06/30/2024 4:03 PM EDT) Pathologist [facility] [place] Urine 1.018 1.003 - 1.030 LAB URINALYSIS - AUTOMATED METHOD 06/30/2024 4:[facility] pH, Urine 7.5 5.0 - 8.0 pH LAB URINALYSIS - AUTOMATED METHOD 06/30/2024 4:49 PM [facility] Leukocytes, Urine Negative Negative LAB URINALYSIS - AUTOMATED METHOD 06/30/2024 4:49 PM [facility] Nitrite, Urine Negative Negative LAB URINALYSIS - AUTOMATED METHOD 06/30/2024 4:49 PM [facility] Protein, Urine Trace <=Trace mg/dL LAB URINALYSIS - AUTOMATED METHOD 06/30/2024 4:49 PM [facility] Glucose, Urine Negative Negative mg/dL LAB URINALYSIS - AUTOMATED METHOD 06/30/2024 4:49 PM [facility] Ketones, Urine Negative Negative mg/dL LAB URINALYSIS - AUTOMATED METHOD 06/30/2024 4:49 PM [facility] Urobilinogen, Urine 1.0 0.2 - 1.0 mg/dL LAB URINALYSIS - AUTOMATED METHOD 06/30/2024 4:49 PM [facility] Bilirubin, Urine Negative Negative LAB URINALYSIS - AUTOMATED METHOD 06/30/2024 4:49 PM [facility] Blood, Urine Negative Negative LAB URINALYSIS - AUTOMATED METHOD 06/30/2024 4:49 PM EDT [facility] Urine Urine specimen obtained by clean catch procedure / Unknown Non-blood Collection / Unknown 06/30/2024 4:03 PM EDT 06/30/2024 4:29 PM EDT Jaime Erickson MD LAB URINE ORDERABLES Final Result Performing Organization Address City/[facility]/ZIP Co de Phone Number [facility] [address] [place] [address], [place] [phone] * Lu urine culture tube (06/30/2024 4:03 PM EDT) [facility] Extra Tube Hold for add-ons. 06/30/2024 6:01 PM EDT [facility] Comment:Auto resulted. Urine Urine specimen obtained by clean catch procedure / Unknown Non-blood Collection / Unknown 06/30/2024 4:03 PM EDT 06/30/2024 4:29 PM EDT Jaime Erickson MD LAB URINE ORDERABLES Final Result Performing Organization Address [facility] Co de Phone Number [facility] [address] [place] [address], [place] [phone] * Troponin I high sensitivity (06/30/2024 2:51 PM EDT) Only the most recent of2 resultswithin the time period is included. [facility] High Sensitivity Troponin I 5 <=54 ng/L LAB CHEMISTRY METHOD 06/30/2024 4:06 PM EDT [facility] Blood Venous blood specimen / Unknown Venipuncture / Unknown 06/30/2024 2:51 PM EDT 06/30/2024 3:08 PM EDT Narrative [facility] - 06/30/2024 4:06 PM EDT High levels of biotin in samples may falsely decrease hsTroponin values. Use caution when interpreting hsTroponin results in patients taking biotin who exhibit renal impairment (eGFR <60) or in patients taking more than 20 mg/day of biotin. Jaime Erickson MD LAB BLOOD ORDERABLES Final Result [facility] [address] [place] [address], [place] [phone] * XR Chest 2 Views (06/30/2024 2:37 [...] Signed Date: 06/30/2024 14:52 ET Workstation ID: [id number] Transcribed By: Self Edit Transcribed Date: 06/30/2024 [...] Signed Date: 06/30/2024 14:52 ET Workstation ID: [id number] Transcribed By: Self Edit Transcribed Date: 06/30/2024 14:50 ET us Jaime Erickson MD IMG XR PROCEDURES Final Res ult * (ABNORMAL) CBC auto differential (06/30/2024 1:34 PM EDT) [facility] WBC 8.1 4.8 - 10.8 K/mcL LAB HEMETOLOGY METHOD 06/30/2024 2:43 PM EDT [facility] RBC 4.30 3.80 - 4.80 M/mcL LAB HEMETOLOGY METHOD 06/30/2024 2:43 PM EDT [facility] Hemoglobin 12.2 11.5 - 16.0 g/dL LAB HEMETOLOGY METHOD 06/30/2024 2:43 PM EDT [facility] Hematocrit 38.8 35.0 - 47.0 % LAB HEMETOLOGY METHOD 06/30/2024 2:43 PM EDT [facility] MCV 89.6 79.0 - 98.0 FL LAB HEMETOLOGY METHOD 06/30/2024 2:43 PM EDT [facility] MCH 28.2 27.0 - 32.0 pcg LAB HEMETOLOGY METHOD 06/30/2024 2:43 PM EDT [facility] MCHC 31.4(L) 32.0 - 37.0 g/dL LAB HEMETOLOGY METHOD 06/30/2024 2:43 PM EDT [facility] RDW 14.5 11.0 - 15.0 % LAB HEMETOLOGY METHOD 06/30/2024 2:43 PM EDT [facility] Platelets 346 130 - 400 K/mcL LAB HEMETOLOGY METHOD 06/30/2024 2:43 PM EDT [facility] MPV 9.6 7.0 - 11.0 FL LAB HEMETOLOGY METHOD 06/30/2024 2:43 PM EDT [facility] NRBC 0.0 <1.0 % LAB HEMETOLOGY METHOD 06/30/2024 2:43 PM [facility] NRBC Absolute 0.00 <0.10 K/mcL LAB HEMETOLOGY METHOD 06/30/2024 2:43 PM [facility] Neutrophils Relative 91.9 % LAB HEMETOLOGY METHOD 06/30/2024 2:43 PM [facility] Lymphocytes Relative 5.1 % LAB HEMETOLOGY METHOD 06/30/2024 2:43 PM [facility] Monocytes Relative 1.4 % LAB HEMETOLOGY METHOD 06/30/2024 2:43 PM [facility] Eosinophils Relative 0.9 % LAB HEMETOLOGY METHOD 06/30/2024 2:43 PM [facility] Basophils Relative 0.2 % LAB HEMETOLOGY METHOD 06/30/2024 2:43 PM [facility] Immature Granulocytes Relative 0.5 % LAB HEMETOLOGY METHOD 06/30/2024 2:43 PM [facility] Neutrophils Absolute 7.44(H) 1.50 - 7.00 K/mcL LAB HEMETOLOGY METHOD 06/30/2024 2:43 PM [facility] Lymphocytes Absolute 0.41(L) 1.00 - 5.00 K/mcL LAB HEMETOLOGY METHOD 06/30/2024 2:43 PM [facility] Monocytes Absolute 0.11(L) 0.20 - 1.00 K/mcL LAB HEMETOLOGY METHOD 06/30/2024 2:43 PM [facility] Eosinophils Absolute 0.07 0.00 - 0.50 K/mcL LAB HEMETOLOGY METHOD 06/30/2024 2:43 PM [facility] Basophils Absolute 0.02 0.00 - 0.20 K/mcL LAB HEMETOLOGY METHOD 06/30/2024 2:43 PM [facility] Immature Granulocytes Absolute 0.04(H) 0.00 - 0.03 K/mcL LAB HEMETOLOGY METHOD 06/30/2024 2:43 PM EDT [facility] Blood Venous blood specimen / Unknown Venipuncture / Unknown 06/30/2024 1:34 PM EDT 06/30/2024 2:20 PM EDT Jaime Erickson MD LAB BLOOD ORDERABLES Final Result Performing Organization Address [facility] Co de Phone Number [facility] [address] [place] [address], [place] [phone] * B-type natriuretic peptide (06/30/2024 1:34 PM EDT) BNP 25 <=100 pcg/mL LAB CHEMISTRY METHOD 06/30/2024 3:12 PM EDT [facility] Blood Venous blood specimen / Unknown Venipuncture / Unknown 06/30/2024 1:34 PM EDT 06/30/2024 2:20 PM EDT Jaime Erickson MD LAB BLOOD ORDERABLES Final Result Performing Organization Address [facility] de Phone Number [facility] [address] [place] [address], [place] [phone] * Magnesium (06/30/2024 1:34 PM EDT) Pathologist [facility] Magnesium 2.0 1.9 - 2.6 mg/dL LAB CHEMISTRY METHOD 06/30/2024 3:09 PM EDT [facility] Blood Venous blood specimen / Unknown Venipuncture / Unknown 06/30/2024 1:34 PM EDT 06/30/2024 2:20 PM EDT us Jaime Erickson MD LAB BLOOD ORDERABLES Final Result Performing Organization Address [facility] Co de Phone Number [facility] [address] [place] [address], [place] [phone] * Lipase (06/30/2024 1:34 PM EDT) [facility] Lipase 28 13 - 75 unit/L LAB CHEMISTRY METHOD 06/30/2024 3:09 PM EDT [facility] Blood Venous blood specimen / Unknown Venipuncture / Unknown 06/30/2024 1:34 PM EDT 06/30/2024 2:20 PM EDT Jaime Erickson MD LAB BLOOD ORDERABLES Final Result [facility] [address] [place] [address], [place] [phone] * (ABNORMAL) Comprehensive metabolic panel (06/30/2024 1:34 PM EDT) [facility] Sodium 137 133 - 145 mmol/L LAB CHEMISTRY METHOD 06/30/2024 3:09 PM T [facility] Potassium 4.7 3.5 - 5.5 mmol/L LAB CHEMISTRY METHOD 06/30/2024 3:09 PM [facility] Chloride 105 96 - 110 mmol/L LAB CHEMISTRY METHOD 06/30/2024 3:09 PM [facility] CO2 26 21 - 32 mmol/L LAB CHEMISTRY METHOD 06/30/2024 3:09 PM [facility] Anion Gap 6 3 - 11 LAB CHEMISTRY METHOD 06/30/2024 3:09 PM [facility] Glucose 193(H) 70 - 100 mg/dL LAB CHEMISTRY METHOD 06/30/2024 3:09 PM [facility] BUN 15 5 - 25 mg/dL LAB CHEMISTRY METHOD 06/30/2024 3:09 PM [facility] Creatinine 0.76 0.50 - 1.10 mg/dL LAB CHEMISTRY METHOD 06/30/2024 3:09 PM [facility] eGFR 93 >=60 mL/min/1. 73m2 LAB CHEMISTRY METHOD 06/30/2024 3:09 PM [facility] Comment:Calculation based on the Chronic Kidney Disease Epidemiology Collaboration (CKD-EPI) equation refit without adjustment for race. BUN/Creatinine Ratio 19.7 LAB CHEMISTRY METHOD 06/30/2024 3:09 PM [facility] Calcium 8.7 8.5 - 10.5 mg/dL LAB CHEMISTRY METHOD 06/30/2024 3:09 PM [facility] AST (SGOT) 15 10 - 42 unit/L LAB CHEMISTRY METHOD 06/30/2024 3:09 PM [facility] ALT (SGPT) 17 10 - 60 unit/L LAB CHEMISTRY METHOD 06/30/2024 3:09 PM [facility] Alkaline Phosphatase 49 42 - 121 unit/L LAB CHEMISTRY METHOD 06/30/2024 3:09 PM [facility] Total Protein 7.0 6.0 - 8.0 g/dL LAB CHEMISTRY METHOD 06/30/2024 3:09 PM [facility] Albumin 3.0(L) 3.2 - 5.0 g/dL LAB CHEMISTRY METHOD 06/30/2024 3:09 PM [facility] Total Bilirubin 0.4 0.0 - 1.4 mg/dL LAB CHEMISTRY METHOD 06/30/2024 3:09 PM [facility] Blood Venous blood specimen / Unknown Venipuncture / Unknown 06/30/2024 1:34 PM EDT 06/30/2024 2:20 PM EDT us Jaime Erickson MD LAB BLOOD ORDERABLES Final Result [facility] [address] [place] [address], [place] [phone] * ECG 12 lead (06/30/2024 1:27 PM EDT) Ventricular Rate ECG 96 BPM GEMUSE Atrial Rate 96 BPM GEMUSE P-R Interval 122 ms GEMUSE QRS Duration 68 ms GEMUSE Q-T Interval 354 ms GEMUSE QTc 447 ms GEMUSE P Wave [place] 70 degrees GEMUSE R [place] 10 degrees GEMUSE T [place] 18 degrees GEMUSE ECG Interpretation Normal sinus rhythm Low voltage QRS Abnormal ECG When compared with ECG of 14-APR-2024 00:41, No significant change was found Confirmed by KIMBERLY WARNER ([id number]) on 06/30/2024 6:19:44 PM GEMUSE 06/30/2024 1:27 PM EDT 06/30/2024 6:19 PM EDT us Jaime Erickson MD ECG ORDERABLES Final Resul t GEMUSE * [id number], RSV, Influenza A and B qualitative RT-PCR (06/30/2024 1:24 PM EDT) Pathologist [facility] Influenza A PCR Not Detected Not Detected LAB MICROBIOLOGY METHOD 06/30/2024 3:06 PM EDT [facility] Influenza B PCR Not Detected Not Detected LAB MICROBIOLOGY METHOD 06/30/2024 3:06 PM EDT [facility] RSV PCR Not Detected Not Detected LAB MICROBIOLOGY METHOD 06/30/2024 3:06 PM EDT [facility] SARS COV-2 Not Detected Not Detected LAB MICROBIOLOGY METHOD 06/30/2024 3:06 PM EDT [facility] Swab Nasopharyngeal structure / Unknown Non-blood Collection / Unknown 06/30/2024 1:24 PM EDT 06/30/2024 2:19 PM EDT Narrative [facility] - 06/30/2024 3:06 PM EDT Disclaimer: Testing was performed using the Cepheid GeneXpert Xpress SARS-CoV-2 _Flu_RSV PLUS PCR assay. [...] for Healthcare providers can be found at https://www.fda.gov/media/174842/download. Fact sheet for Healthcare patients can be found at https://www.fda.gov/media/270186/download. us Jaime Erickson MD LAB MICROBIOLOGY - GENERAL ORDERABLES Final Result [facility] [address] [place] [address], * DIANE SCREENING DIGITAL (02/27/2018 5:16 PM EST) Anatomical Region Laterality Modality Mammography 02/24/2018 10:4 4 AM EST Narrative 02/27/2018 5:16 PM EST [facility] Diagnostic Imaging Department [address] [place] [address] Patient: SCARLETT NEUMANN /Age/Sex: 1970 - 47 - F Unit#: [id number] Location/Status: [facility]/REG CLI Mnemonic/Ordering Site: [facility] Ordering Physician: GABRIELA VILLEDA MD Diane Screening Digital - 02/27/18 - 0758 INDICATION: SCREENING COMPARISON: [facility] mammograms dating back to 08/05/2012 FINDINGS: CC and MLO views of the breasts were obtained, using full field digital mammography with 3D tomosynthesis views in the MLO projection. Computer aided detection with the Celladon 7.2-H was employed. History of reduction mammoplasty [...] a target date for the next mammogram. [id number] / [id number]) , [id number] Dictating Physician: YONG WEATHERS MD Electronically Signed by: YONG WEATHERS MD Dic Date/Time: 02/27/181711 Sign date/Time: 02/27/181715 Procedure Note Yong Weathers MD - 02/18/2022 [facility] Diagnostic Imaging Department [address] [place] [address] Patient: SCARLETT NEUMANN /Age/Sex: 1970 - 47 - F Unit#: [id number] [facility] Mnemonic/Ordering Site: [facility] Ordering Physician: GABRIELA VILLEDA MD Diane Screening Digital - 02/27/18 - 0758 INDICATION: SCREENING COMPARISON: [facility] mammograms dating back to 08/05/2012 FINDINGS: CC and MLO views of the breasts were obtained, using full field digital mammography with 3D tomosynthesis views in the MLO projection. Computeraided detection with the Celladon 7.2-H was employed. History of reduction mammoplasty [...] a target date for the next mammogram. ([id number] / [id number]) , [id number] Dictating Physician: YONG WEATHERS MD Electronically Signed by: YONG WEATHERS MD Dic Date/Time: 02/27/18 171 Sign date/Time: 02/27/181715 Gabriela Villeda MD IMG BI PROCEDURES Final R esult from Last 3 Months or Most Recently Relevant to Health Maintenance Insurance MEDICAID - [place] Care Teams Punch Machine Hand Relationship Specialty Start Date End Date Cristian Chacon [address] [place], [place] PCP - General Internal Medicine 10/17/20
--- OUTSIDE RECORDS SUMMARY | 2024-09-09 07:41 | XMS_ITS | Clinical Summary ---
Author Organization [facility] Address [address] [place] [address] Care Team Providers Care [employer] Name Role Phone Eduarda Villeda MD Primary Care Provider [phone] Medications No known medications Social History Tobacco [...] complete this topic Insurance MEDICAID Care Teams [employer] Relationship Specialty Start Date End Date Eduarda Villeda MD [address] [address] PCP - General Internal Medicine 05/12/18
--- OUTSIDE RECORDS SUMMARY | 2024-09-09 07:41 | XMS_ITS | Clinical Summary ---
Author Organization [facility] Address [address] [place] [address] Care Team Providers Care Bag Bundler Name [...] LESION, MOST LIKELY HEMORRHAGIC OVARIAN CYST. 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 2.9 X 3.8 X 3 CM LEFT ADNEXAL CYSTIC LESION, MOST LIKELY HEMORRHAGIC OVARIAN CYST. 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 NANCE). F[facility]U [facility] (DR. NANCE). Hypothyroidism 05/13/2007 Overview (08/16/2024): [...] [place] Insomnia 05/13/2007 Overview (08/16/2024): F/U AT [facility] (DR. NANCE). F/U AT [facility] (DR. NANCE). Encounters Date Type Department Care Team Description 09/06/2024 3:20 PM EDT Follow-Up [facility] [address] [place] [phone] Laborer Pipelines: Dennis Laguna MD Shortness of breath (Primary Dx); Allergic rhinitis due to other allergic trigger, unspecified seasonality 09/06/2024 1:30 PM EDT - 09/06/2024 11:59 PM EDT Hospital Encounter [facility] [address] [place] [phone] Dennis Vallejo MD Shortness of breath Discharge Disposition: Home or Self Care () 08/16/2024 2:00 PM EDT Office Visit [facility] [address] [place] [phone] Laborer Pipelines: Dennis Laguna MD Shortness of breath (Primary Dx) 08/12/2024 Telephone [facility] [address] [place] [phone] Laborer Pipelines: Marichuy Agee HI 07/20/2024 1:40 PM EDT Follow-Up [facility] [address] [place] [address] Laborer Pipelines: Alonzo Baez MD FELI positive (Primary Dx); [...] Sign Reading Time Taken Comments Blood Pressure 136/84 09/06/2024 2:55 PM EDT Pulse 94 09/06/2024 2:55 PM EDT Temperature 36.8 C (98.3 F) 07/20/2024 12:19 PM EDT Respiratory Rate 18 09/06/2024 2:55 PM EDT Oxygen Saturation 96% 09/06/2024 2:55 PM EDT Inhaled Oxygen Concentration - - Weight 88 kg (194 lb) 09/06/2024 2:55 PM EDT Height 157.5 cm (5' 2 ) 07/20/2024 12:19 PM EDT Body Mass Index 35.48 07/20/2024 12:19 PM EDT Plan of Treatment Upcoming Encounters Date Type Department Care Team (Late st Contact Info) Description 09/21/2024 11:40 AM EDT Follow-Up [facility] [address] [place] [phone] Laborer Pipelines: Alonzo Baez MD [address] [place] [phone] 12/06/2024 1:00 PM EDT Follow-Up [facility] [address] [place] [phone] Laborer Pipelines: Juan RamonDennis Sue MD [address] [place] [address] 12/06/2024 1:30 PM EDT Follow-Up [facility] [address] [place] [address] Laborer Pipelines: Morales Ramsey MD [address], [place] [phone] Scheduled Procedures Name Priority Associated Diagnoses Date/Ti [...] Screening Completed 06/04/2022 Procedures * Due to [place] state law, this organization might not be sharing negative HIV tests. Procedure Name Priority Date/Time Associated Diagnosis Comments PULMONARY FUNCTION TEST Routine 09/06/2024 1:48 PM EDT Shortness of breath DNA AB(DS) CRITHIDIA TITER Routine 07/20/2024 1:58 [...] to Health Maintenance Results * Due to [place] state law, this organization might not be sharing negative HIV tests. 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 Restriction could be due to interstitial lung diseases, pulmonary vascular diseases, pleural abnormalities, poor chest wall compliance (including obesity, if present), neuromuscular weakness, or suboptimal coordination of testing maneuvers. Spirometry shows no evidence of airflow obstruction. The individual DLco efforts meet ATS/ERS acceptability, and meet repeatability standards. Measure of uncorrected diffusing capacity (DLco) is most consistent with normal alveolar capillary membrane surface area and diffusion properties for gas exchange. us Dennis Vallejo MD PFT ORDERABLES Final Res ult [facility] * (ABNORMAL) DNA AB(DS) Crithidia Titer (07/20/2024 1:58 PM EDT) DNA Ab Crithidia Titer 1:80(H) <1:10 titer 07/27/2024 8:43 AM EDT [facility] ([facility]) Blood Structure of peripheral vein / Unknown Venipuncture / Unknown 07/20/2024 1:58 PM EDT 07/20/2024 2:39 PM EDT Narrative [facility] - 07/27/2024 8:43 AM EDT [facility] Received Date:[id number] Alonzo Persaud MD LAB BLOOD ORDERABLES Final Result Performing Organization Address [facility] Co de Phone Number PHILLIP [address], [place] [address], [place] [phone] [facility] ([facility]IMENEZ) [address] [place] [address], [place] * (ABNORMAL) DNA Antibody (ds) Crithidia IFA w/Reflex (07/20/2024 1:58 PM EDT) Pathologist [facility] DNA Ab(ds) Crithidia, IFA Positive(A ) Negative 07/27/2024 8:10 AM EDT [facility] ([place]) Blood Structure of peripheral vein / Unknown Venipuncture / Unknown 07/20/2024 1:58 PM EDT 07/20/2024 2:39 PM EDT Narrative [facility] - 07/27/2024 8:10 AM EDT [facility] Received Date:[id number] Alonzo Persaud MD LAB BLOOD ORDERABLES Final Result Performing Organization Address [facility]/ZIP Co de Phone Number PHILLIP [address], [place] [address], [place] [phone] [facility] ([place]IMENEZ) [address] [place] [address], [place] * (ABNORMAL) DNA Antibody, Double-Stranded (07/20/2024 1:58 PM EDT) Pathologist [facility] DNA (Ds) Antibody 65(H) IU/mL 025 11:01 PM EDT [facility] Comment: IU/mL Interpretation < or = 4 Negative 5-9 Indeterminate > or = 10 Positive Blood Structure of peripheral vein / Unknown Venipuncture / Unknown 07/20/2024 1:58 PM EDT 07/20/2024 2:39 PM EDT Narrative [facility] - 07/21/2024 11:01 PM EDT [facility] Received Date: Alonzo Persaud MD LAB BLOOD ORDERABLES Final Result [facility] [address] [facility] [address]rd [address], [place] [address], [facility] [address] [facility] [address] [facility], [place] [address], * Sedimentation Rate (07/20/2024 1:58 PM EDT) [facility] Sed Rate 28 <30 mm/Hr mm/Hr 07/20/2024 2:52 PM EDT [facility] Blood Structure of peripheral vein / Unknown Venipuncture / Unknown 07/20/2024 1:58 PM EDT 07/20/2024 2:40 PM EDT us Alonzo Persaud MD LAB BLOOD ORDERABLES Final Result [facility] [address] [place] [address], [place] * (ABNORMAL) CBC (07/20/2024 1:58 PM EDT) [facility] WBC 5.4 3.8 - 10.8 10*3/uL 07/20/2024 2:48 PM EDT [facility] RBC 4.36 3.80 - 5.10 10*6/uL 07/20/2024 2:48 PM EDT [facility] Hemoglobin 12.3 11.7 - 15.5 g/dL 07/20/2024 2:48 PM EDT [facility] Hematocrit 39.0 35.0 - 45.0 % 07/20/2024 2:48 PM EDT [facility] MCV 89.4 80.0 - 100.0 fL 07/20/2024 2:48 PM EDT [facility] MCH 28.2 27.0 - 33.0 pg 07/20/2024 2:48 PM EDT [facility] MCHC 31.5(L) 32.0 - 36.0 g/dL 07/20/2024 2:48 PM EDT [facility] RDW 13.9 11.0 - 15.0 % 07/20/2024 2:48 PM EDT [facility] Platelets 388 140 - 400 10*3/uL 07/20/2024 2:48 PM EDT [facility] MPV 9.4 7.5 - 12.5 fL 07/20/2024 2:48 PM EDT [facility] Blood Structure of peripheral vein / Unknown Venipuncture / Unknown 07/20/2024 1:58 PM EDT 07/20/2024 2:39 PM EDT us Alonzo Persaud MD LAB BLOOD ORDERABLES Final Result [facility] [address] [place] [address], * C3 complement (07/20/2024 1:58 PM EDT) Complement Component C3C 113 83 - 193 mg/dL 07/21/2024 6:58 AM EDT [facility] Blood Structure of peripheral vein / Unknown Venipuncture / Unknown 07/20/2024 1:58 PM EDT 07/20/2024 2:39 PM EDT [facility] - 07/21/2024 6:58 AM EDT [facility] Received Date: us Alonzo Persaud MD LAB BLOOD ORDERABLES Final Result Performing Organization Address [facility] Co de Phone Number PHILLIP [place] [address], [place] [address], [place] [phone] [address], [place] [address], [place] [phone] * C4 complement (07/20/2024 1:58 PM EDT) Complement Component C4C 23 15 - 57 mg/dL 07/21/2024 6:58 AM EDT [facility] Blood Structure of peripheral vein / Unknown Venipuncture / Unknown 07/20/2024 1:58 PM EDT 07/20/2024 2:39 PM EDT [facility] - 07/21/2024 6:58 AM EDT [facility] Received Date: us Alonzo Persaud MD LAB BLOOD ORDERABLES Final Result Performing Organization Address [facility]/ZIP Co de Phone Number PHILLIP [place] [address], [place] [address], [place] [phone] [address], [place] [address], [place] [phone] * (ABNORMAL) C-reactive protein (07/20/2024 1:58 PM EDT) C Reactive Protein 27.0(H) <=9.9 mg/L 07/20/2024 3:12 PM EDT [facility] Blood Structure of peripheral vein / Unknown Venipuncture / Unknown 07/20/2024 1:58 PM EDT 07/20/2024 2:39 PM EDT Alonzo Persaud MD LAB BLOOD ORDERABLES Final Result [facility] [address] [place] [address], * (ABNORMAL) Comprehensive metabolic panel (07/20/2024 1:58 PM EDT) NA 141 135 - 145 mmol/L 07/20/2024 3:13 PM EDT [facility] K 3.9 3.5 - 5.3 mmol/L 07/20/2024 3:13 PM EDT [facility] Cl 106 98 - 107 mmol/L 07/20/2024 3:13 PM EDT [facility] CO2 25 22 - 32 mmol/L 07/20/2024 3:13 PM EDT [facility] Anion Gap 10 5 - 15 07/20/2024 3:13 PM EDT [facility] Glucose 116(H) 65 - 99 mg/dL 07/20/2024 3:13 PM EDT [facility] Creatinine 0.77 0.50 - 1.20 mg/dL 07/20/2024 3:13 PM EDT [facility] Calcium 8.7 8.6 - 10.5 mg/dL 07/20/2024 3:13 PM EDT [facility] Total Protein 6.9 6.0 - 8.0 g/dL 07/20/2024 3:13 PM EDT [facility] Albumin 3.4(L) 3.5 - 5.2 g/dL 07/20/2024 3:13 PM EDT [facility] Bilirubin, Total <0.2(L) 0.2 - 1.2 mg/dL 07/20/2024 3:13 PM EDT [facility] Alkaline Phosphatase 56 35 - 129 U/L 07/20/2024 3:13 PM EDT [facility] AST 16 10 - 40 U/L 07/20/2024 3:13 PM EDT [facility] ALT 14 10 - 40 U/L 07/20/2024 3:13 PM EDT [facility] BUN 23 7 - 23 mg/dL 07/20/2024 3:13 PM EDT [facility] eGFR >90 >=60 mL/min/1 .73m2 07/20/2024 3:13 PM EDT [facility] Comment:The estimated glomer [...] - 4.2 g/dL 07/20/2024 3:13 PM EDT [facility] A/G Ratio 1.0(L) 1.5 - 3.0 07/20/2024 3:13 PM EDT [facility] Blood Structure of peripheral vein / Unknown Venipuncture / Unknown 07/20/2024 1:58 PM EDT 07/20/2024 2:39 PM EDT us Alonzo Persaud MD LAB BLOOD ORDERABLES Final Result [facility] [address] [place] [address], * Microalbumin, Random Urine with Creatinine (04/20/2024 9:23 AM EST) Pathologist [facility] Microalbumin, Urine <2.0 mg/dL 04/20/2024 12:17 PM EST [facility] Creatinine, Urine 186 15 - 278 mg/dL 04/20/2024 12:17 PM EST [facility] Microalb/Creat Ratio, Random Urine 04/20/2024 12:17 PM EST [facility] Comment: < 1.0 [...] [facility] [address] [place] [address], [facility] [address] * Hepatitis C Antibody w/Reflex to HCV RNA, Quantitative PCR (06/04/2022 5:43 PM EDT) Pathologist [facility] Hepatitis C Antibody NON-REACT BETO NON-REACT BETO 06/05/2022 3:44 AM EDT [facility] Signal To Cut-Off 0.02 <1.00 06/05/2022 3:44 AM EDT [facility] Comment: HCV antibody was non-reactive. There is no laboratory evidence of HCV infection. In most cases, no further action is required. However, if recent HCV exposure is suspected, a test for HCV RNA (test code 71051) is suggested. For additional information please refer to http://education.Padloc/faq/CZI34y7 (This link is being provided for informational/ educational purposes only.) Blood Structure of peripheral vein / Unknown Venipuncture / Unknown 06/04/2022 5:43 PM EDT 06/04/2022 6:08 PM EDT Narrative [facility] - 06/05/2022 3:44 AM EDT [facility] Received Date: Alonzo Persaud MD LAB BLOOD ORDERABLES Final Result [facility] [address] [facility] [address], [place] [address], [place] [phone] [facility] [address] [facility] [address], [place] [address], [place] [phone] from Last 3 Months or Most Recently Relevant to Health Maintenance Insurance [facility] Care Teams Bag Bundler Relationship Specialty Start Date End Date Cristian Chacon MD [address] [place] [address] PCP - General 06/04/22
== END 2024-09-09 08:07 | disposition home or self-care (01) ==
LOC: HO.HSMS 07:39
PROVIDERS: PCP Internal Medicine; Visit Provider Psychiatry & Neurology Neurology
DX: G51.32 Clonic hemifacial spasm, left (principal)
CPT/HCPCS: 64612

== ENCOUNTER → 2024-09-09 07:39 | Outpatient (BNVA) | payer MEDICAID, SELFPAY | PROVIDERS: PCP Internal Medicine; Visit Provider Psychiatry & Neurology Neurology | DX: G51.32 Clonic hemifacial spasm, left (principal) | CPT/HCPCS: 64612; 99211; J0585 ==

== ENCOUNTER 2024-09-15 08:04 | Day surgery (SDC) | payer MEDICAID, SELFPAY ==
--- OUTSIDE RECORDS SUMMARY | 2024-09-12 16:33 | XMS_ITS | Clinical Summary ---
Author Organization [facility] Address [address] [place] [address] Care Team Providers Care Acute Care Physical Therapist Name Role Phone Cristian Chacon MD Primary [...] LESION, MOST LIKELY HEMORRHAGIC OVARIAN CYST. 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 2.9 X 3.8 X 3 CM LEFT ADNEXAL CYSTIC LESION, MOST LIKELY HEMORRHAGIC OVARIAN CYST. 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 [facility]ANCE). F/U [facility] (DR. NANCE). Hypothyroidism 05/13/2007 Overview (08/16/2024): [...] Mcdowell Insomnia 05/13/2007 Overview (08/16/2024): F/U AT [facility] (DR. NANCE). F/U AT [facility] (DR. NANCE). Encounters Date Type Department Care Team Description 09/06/2024 3:20 PM EDT Follow-Up [facility] [address] [place] [phone] Interface Designer: Dennis Laguna MD Shortness of breath (Primary Dx); Allergic rhinitis due to other allergic trigger, unspecified seasonality 09/06/2024 1:30 PM EDT - 09/06/2024 11:59 PM EDT Hospital Encounter [facility] [address] [place] [address] Dennis Vallejo MD Shortness of breath Discharge Disposition: Home or Self Care () 08/16/2024 2:00 PM EDT Office Visit [facility] [address] [place] [address] Interface Designer: Dennis Laguna MD Shortness of breath (Primary Dx) 08/12/2024 Telephone [facility] [address] [place] [address] Interface Designer: Marichuy Agee DC 07/20/2024 1:40 PM EDT Follow-Up [facility] [address] [place] [address] Interface Designer: Alonzo Baez MD FELI positive (Primary Dx); [...] Info) Description 09/21/2024 11:40 AM EDT Follow-Up [facility] [address] [place] [address] Interface Designer: Alonzo Baez MD [address] [place] [address] 12/06/2024 1:00 PM EDT Follow-Up [facility] [address] [place] [address] Interface Designer: Juan RamonDennis Sue MD [address] [place] [address] 12/06/2024 1:30 PM EDT Follow-Up [facility] [address] [place] [address] Interface Designer: Morales Ramsey MD [address] [place], [place] [id number] Scheduled Procedures Name Priority Associated Diagnoses Date/Ti [...] Screening Completed 06/04/2022 Procedures * Due to [place] state law, this organization might not be [...] to Health Maintenance Results * Due to [place] state law, this organization might not be [...] [facility] 09/06/2024 1:48 PM EDT [facility] - 09/06/2024 1:48 PM [...] EDT 07/20/2024 2:39 PM EDT [facility]arrative [facility] 07/27/2024 8:43 AM EDT [facility] Received Date:[id number] Alonzo Persaud MD LAB BLOOD ORDERABLES Final Result Performing Organization Address [facility] Co de Phone Number PHILL[facility] [address], [place] [address], [place] [phone] [facility] (GIMENEZ) [address] [place] [address], [place] * (ABNORMAL) DNA Antibody (ds) Crithidia IFA w/Reflex (07/20/2024 1:58 PM EDT) Pathologist [facility] DNA Ab(ds) Crithidia, IFA Positive(A ) Negative 07/27/2024 8:10 AM EDT [facility] (GIMENE[facility]) Blood Structure of peripheral vein / Unknown Venipuncture / Unknown 07/20/2024 1:58 PM EDT 07/20/2024 2:39 PM EDT Narrative [facility] - 07/27/2024 8:10 AM EDT [facility] Received Date:[id number] Alonzo Persaud MD LAB BLOOD ORDERABLES Final Result Performing Organization Address [facility]/ZIP Co de Phone Number [facility] [address], [place] [address], [place] [phone] [facility] (GIMENEZ) [address] [place] [address], [place] * (ABNORMAL) DNA Antibody, Double-Stranded (07/20/2024 1:58 PM EDT) Pathologist [facility] DNA (Ds) Antibody 65(H) IU/mL 025 11:01 PM EDT [facility] Comment: IU/mL Interpretation < or = 4 Negative 5-9 Indeterminate > or = 10 Positive Blood Structure of peripheral vein / Unknown Venipuncture / Unknown 07/20/2024 1:58 PM EDT 07/20/2024 2:39 PM EDT Narrative [facility] - 07/21/2024 11:01 PM EDT [facility] Received Date: Alonzo Persaud MD LAB BLOOD ORDERABLES Final Result [facility] [address] [facility] 3rd Floor, [place] [address], [facility] [address] [facility] [address] [facility], [place] [address], * Sedimentation Rate (07/20/2024 1:58 PM EDT) [facility] Sed Rate 28 <30 mm/Hr mm/Hr 07/20/2024 2:52 PM EDT [facility] Blood Structure of peripheral vein / Unknown Venipuncture / Unknown 07/20/2024 1:58 PM EDT 07/20/2024 2:40 PM EDT us Alonzo Persaud MD LAB BLOOD ORDERABLES Final Result [facility] [address] [place] [address], [place] * (ABNORMAL) CBC (07/20/2024 1:58 PM EDT) [facility] WBC 5.4 3.8 - 10.8 10*3/uL 07/20/2024 2:48 PM EDT [facility] RBC 4.36 3.80 - 5.10 10*6/uL 07/20/2024 2:48 PM EDT [facility] Hemoglobin 12.3 11.7 - 15.5 g/dL 07/20/2024 2:48 PM EDT [facility] Hematocrit 39.0 35.0 - 45.0 % 07/20/2024 2:48 PM EDT [facility] MCV 89.4 80.0 - 100.0 fL 07/20/2024 2:48 PM EDT [facility] MCH 28.2 27.0 - 33.0 pg 07/20/2024 2:48 PM EDT [facility] MCHC 31.5(L) 32.0 - 36.0 g/dL 07/20/2024 2:48 PM EDT [facility] RDW 13.9 11.0 - 15.0 % 07/20/2024 2:48 PM EDT [facility] Platelets 388 140 - 400 10*3/uL 07/20/2024 2:48 PM EDT [facility] MPV 9.4 7.5 - 12.5 fL 07/20/2024 2:48 PM EDT [facility] Blood Structure of peripheral vein / Unknown Venipuncture / Unknown 07/20/2024 1:58 PM EDT 07/20/2024 2:39 PM EDT us Alonzo Persaud MD LAB BLOOD ORDERABLES Final Result [facility] [address] [place] [address], * C3 complement (07/20/2024 1:58 PM EDT) Complement Component C3C 113 83 - 193 mg/dL 07/21/2024 6:58 AM EDT [facility] Blood Structure of peripheral vein / Unknown Venipuncture / Unknown 07/20/2024 1:58 PM EDT 07/20/2024 2:39 PM EDT [facility] - 07/21/2024 6:58 AM EDT [facility] Received Date: us Alonzo Persaud MD LAB BLOOD ORDERABLES Final Result Performing Organization Address [facility] Co de Phone Number [facility] [place] [address], [place] [address], [place] [phone] [address], [place] [address], [place] [phone] * C4 complement (07/20/2024 1:58 PM EDT) Complement Component C4C 23 15 - 57 mg/dL 07/21/2024 6:58 AM EDT [facility] Blood Structure of peripheral vein / Unknown Venipuncture / Unknown 07/20/2024 1:58 PM EDT 07/20/2024 2:39 PM EDT [facility] ROSARIO - 07/21/2024 6:58 AM EDT [facility] Received Date: us Alonzo Persaud MD LAB BLOOD ORDERABLES Final Result Performing Organization Address [facility]/ZIP Co de Phone Number [facility] [place] [address], [place] [address], [place] [phone] [address], [place] [address], [place] [phone] * (ABNORMAL) C-reactive protein (07/20/2024 1:58 PM EDT) C Reactive Protein 27.0(H) <=9.9 mg/L 07/20/2024 3:12 PM EDT [facility] Blood Structure of peripheral vein / Unknown Venipuncture / Unknown 07/20/2024 1:58 PM EDT 07/20/2024 2:39 PM EDT Alonzo Persaud MD LAB BLOOD ORDERABLES Final Result [facility] [address] [place] [address], * (ABNORMAL) Comprehensive metabolic panel (07/20/2024 1:58 PM EDT) NA 141 135 - 145 mmol/L 07/20/2024 3:13 PM EDT [facility] K 3.9 3.5 - 5.3 mmol/L 07/20/2024 3:13 PM EDT [facility] Cl 106 98 - 107 mmol/L 07/20/2024 3:13 PM EDT [facility] CO2 25 22 - 32 mmol/L 07/20/2024 3:13 PM EDT [facility] Anion Gap 10 5 - 15 07/20/2024 3:13 PM EDT [facility] Glucose 116(H) 65 - 99 mg/dL 07/20/2024 3:13 PM EDT [facility] Creatinine 0.77 0.50 - 1.20 mg/dL 07/20/2024 3:13 PM EDT [facility] Calcium 8.7 8.6 - 10.5 mg/dL 07/20/2024 3:13 PM EDT [facility] Total Protein 6.9 6.0 - 8.0 g/dL 07/20/2024 3:13 PM EDT [facility] Albumin 3.4(L) 3.5 - 5.2 g/dL 07/20/2024 3:13 PM EDT [facility] Bilirubin, Total <0.2(L) 0.2 - 1.2 mg/dL 07/20/2024 3:13 PM EDT [facility] Alkaline Phosphatase 56 35 - 129 U/L 07/20/2024 3:13 PM EDT [facility] AST 16 10 - 40 U/L 07/20/2024 3:13 PM EDT [facility] ALT 14 10 - 40 U/L 07/20/2024 3:13 PM EDT [facility] BUN 23 7 - 23 mg/dL 07/20/2024 3:13 PM EDT [facility] eGFR >90 >=60 mL/min/1 .73m2 07/20/2024 3:13 PM EDT [facility] Comment:The estimated glomer [...] - 4.2 g/dL 07/20/2024 3:13 PM EDT [facility] A/G Ratio 1.0(L) 1.5 - 3.0 07/20/2024 3:13 PM EDT [facility] Blood Structure of peripheral vein / Unknown Venipuncture / Unknown 07/20/2024 1:58 PM EDT 07/20/2024 2:39 PM EDT us Alonzo Persaud MD LAB BLOOD ORDERABLES Final Result [facility] [address] [place] [address], * Microalbumin, Random Urine with Creatinine (04/20/2024 9:23 AM EST) Pathologist [facility] Microalbumin, Urine <2.0 mg/dL 04/20/2024 12:17 PM EST [facility] Creatinine, Urine 186 15 - 278 mg/dL 04/20/2024 12:17 PM EST [facility] Microalb/Creat Ratio, Random Urine 04/20/2024 12:17 PM EST [facility] Comment: < 1.0 mcg/mgCr Microalbumin Reference Range: Normal <30 mcg/mg Creatinine Microalbuminuria 30-300 mcg/mg Creatinine Clinical Albuminuria >300 mcg/mg Creatinine Reference: ADA Guideline. Diabetes Care. 2004;27 (suppl 1) Urine Voided urine specimen / Unknown Non-Blood Collection / Unknown 04/20/2024 9:23 AM EST 04/20/2024 9:39 AM EST Alonzo Persaud MD LAB URINE ORDERABLES Final Result [facility] [address] [place] [address], [facility] [address] * Hepatitis C Antibody w/Reflex to HCV RNA, Quantitative PCR (06/04/2022 5:43 PM EDT) Pathologist [facility] Hepatitis C Antibody NON-REACT BETO NON-REACT BETO 06/05/2022 3:44 AM EDT e(ye)BRAIN Signal To Cut-Off 0.02 <1.00 06/05/2022 3:44 AM EDT e(ye)BRAIN Comment: HCV antibody was non-reactive. There is no laboratory evidence of HCV infection. In most cases, no further action is required. However, if recent HCV exposure is suspected, a test for HCV RNA (test code 78868) is suggested. For additional information please refer to http://education.nokisaki.com/faq/SGD55v1 (This link is being provided for informational/ educational purposes only.) Blood Structure of peripheral vein / Unknown Venipuncture / Unknown 06/04/2022 5:43 PM EDT 06/04/2022 6:08 PM EDT Narrative [facility] ROSAR[facility] - 06/05/2022 3:44 AM EDT [facility] Received Date: Alonzo Persaud MD LAB BLOOD ORDERABLES Final Result [facility] [address] [facility] 3rd Floor, [place] [address], [place] [phone] [facility] [address] [facility] 3rd Floor, [place] [address], [place] [phone] from Last 3 Months or Most Recently Relevant to Health Maintenance Insurance [facility] Care Teams Acute Care Physical Therapist Relationship Specialty Start Date End Date Cristian Chacon MD [address] [place] [address] PCP - General 06/04/22
--- OUTSIDE RECORDS SUMMARY | 2024-09-12 16:33 | XMS_ITS | Encounter Summary ---
Author Organization [employer] Address [address] [facility] [address]t [place] [address] Care Team Providers Care Director Revenue Name Role Phone Cristian Chacon MD Primary Care Prov ider Encounter Details Date Type Department Care Team ([facility] Contact Info) Description 06/30/2024 Orders Only [facility] [address] [place], [place] [phone] Provider, MD Roderick Social History Tobacco Use [...] the past 12 months, has t he [employer], [employer], oil or water [employer] threatened to shut off services in your [...] Description 09/29/2024 2:45 PM EDT Office Visit [facility] [address] [place], [place] [phone] Eduarda Villeda MD [address] [place], [place] [phone] documented as of this encounter Procedures Procedure [...] as of this encounter Care Teams Director Revenue Relationship Specialty Start Date End Date Cristian Chacon MD [address] [place], [place] [phone] PCP - General Internal Medicine 03/17/19 Ivy Payne Physical Security EngineerVeneer Jointer 11/26/23 documented as of this encounter
--- OUTSIDE RECORDS SUMMARY | 2024-09-12 16:33 | XMS_ITS | Clinical Summary ---
Author Organization [facility] Address [address] [place] [address] Care Team Providers Care Film Painter Name Role Phone Unavailable Primary Care Provider [...] or Tdap) 10/14/2020 10/14/2010 Influenza Vaccine (#1) 2024 , 03/13/2009 Pneumococcal Vaccine Aged Out 10/14/2010 No long er eligible based on patient's age to complete this topic RSV Ped < 20 months Aged Out No longe r eligible based on patient's age to complete this topic
--- OUTSIDE RECORDS SUMMARY | 2024-09-12 16:33 | XMS_ITS | Clinical Summary ---
Author Organization [facility] Address [address] [place] [address] Care Team Providers Care Ground Hand Name Role Phone Eduarda Villeda MD Primary Care Provider [phone] Medications No known medications Social History Tobacco [...] complete this topic Insurance MEDICAID Care Teams Ground Hand Relationship Specialty Start Date End Date Eduarda Villeda MD [address] [address] PCP - General Internal Medicine 05/12/18
--- OUTSIDE RECORDS SUMMARY | 2024-09-12 16:34 | XMS_ITS | Clinical Summary ---
Author Organization [facility] Address [address] [place] [address] Care Team Providers Care Wildlife Ecologist Name Role Phone Dirk Mcdowell RD Primary Care Provider [phone] Source Comments PLEASE NOTE, if this patient [...] /3 mL (0.083 %) nebulizer solution Per pain management specialist 0 5 Active FLOVENT HFA 220 mcg/actuation inhaler Per pain management specialist 3 5 Active fluticasone (FLONASE) 50 mcg/actuation nasal spray Per pain management specialist 3 5 Active hydrOXYzine (ATARAX) 25 mg tablet Per pain management specialist 0 5 Active montelukast (SINGULAIR) 10 mg tablet Per pain management specialist 3 5 Active terbinafine HCl (LAMISIL) 250 mg tablet Per pain management specialist 1 5 Active ketoconazole (NIZORAL) 2 % cream Per pain management specialist 3 5 Active metroNIDAZOLE (METROCREAM) 0.75 % cream Per pain management specialist 3 5 Active traZODone (DESYREL) 50 mg tablet Per Psych 4 5 Active traMADol (ULTRAM) 50 mg tablet Per [facility] ER 0 5 Active cromolyn (OPTICROM) 4 % ophthalmic solution Per pain management specialist 3 5 Active baclofen (LIORESAL) [...] Date Diagnosed Date H/O mammogram 3 at [facility]. Normal. due Gavino h 201505/12/2014 Left ovarian cyst 07/14/2013 Overview (07/14/2013): S/P US PELVIS 07/04/13 DUE PELVIC PAIN. 2.9 X 3.8 X 3 CM LEFT ADNEXAL CYSTIC LESION, MOST LIKELY HEMORRHAGIC OVARIAN CYST. 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 Allergic rhinitis due to allergen 2008 GERD (gastroesophageal reflux disease) 8 Hypothyroidism 05/13/2007 Overview (09/29/2013): + CARLOS EDUARDO'S THYROIDITIS, ENDO F/U with Dr Mcdowell Anxiety and depression 05/13/2007 Overview (02/01/2013): F/U [facility] (DR. NANCE). Insomnia 05/13/2007 Overview (02/01/2013): F/U AT [facility] (DR. NANCE). Mild persistent asthma ([facility]) 05/13/2007 Chronic neck pain LBP (low back [...] 06/19/2022, 0 11/24/2014, 11/24/2014, Additional history exists [id number] ( season) 2023 03/22/2021, 07/22/2020, 07/01/2020 Alcohol [...] TSH CASCADE 2.25 0.40 - 4.00 uIU/ml [facility] Blood specimen (specimen) Blood / Unknown 03/06/2015 11:48 AM EST 03/06/2015 11:50 AM EST Narrative [facility] - 03/07/2015 1:30 PM EST [employer] [address] [place] [address] [place] [id number] ORD# [id number] Sophia Blue MD LAB - BLOOD RICH W Final Result Performing Organization Address City/[facility]/ZIP Co de Phone Number [facility] [address] [place] [address], [place] [phone] * (ABNORMAL) LIPID PANEL (11/24/2014 11:00 AM EDT) CHOLESTEROL 166 0 - 200 mg/dL [facility] TRIGLYCERIDES 86 0 - 150 mg/dL [facility] HDL CHOLESTEROL 46 >40 mg/dL [facility] LDL CALCULATED 103(H) 0 - 100 mg/dL [facility] TC-HDLC RATIO 3.6 0 - 4.4 mg/dL [facility] Blood specimen (specimen) Blood / Unknown 11/24/2014 11:00 AM EDT 11/24/2014 11:06 AM EDT Narrative [facility] - 11/24/2014 12:35 PM EDT [facility] [employer] [address] [place] [address] [place] [id number] ORD# [id number] Sophia Blue MD LAB - BLOOD RICH W Final Result Performing Organization Address City/[facility]/ZIP Co de Phone Number [facility] [address] [place] [address], [place] [phone] * COMPRE METAB PANEL (11/24/2014 11:00 AM EDT) GLUCOSE 88 70 - 100 mg/dL [facility] Comment:Reference range appl icable to fasting specimens only BUN 22 5 - 25 mg/dL [facility] CREAT 0.67 0.5 - 1.1 mg/dL [facility] GLOMERULAR FILTRATION RATE > 60 [facility] Comment: If patient is -Cypriot, multiply result by 1.21 Chronic Kidney Disease: [...] AM EDT 11/24/2014 11:06 AM EDT Narrative [facility] - 11/24/2014 12:35 PM EDT [facility] [employer] [address] [place] [address] PT [place] [id number] ORD# [id number] us Sophia Blue MD LAB - BLOOD DRA De Jesus Final Result [address] [address], * HEPATITIS A,B,C PANEL (09/29/2013 3:21 PM EDT) HEPATITIS B SURFACE ANTIBODY NEGATIVE NEGATIVE [facility] HEPATITIS B SURFACE ANTIGEN NEGATIVE NEGATIVE [facility] HEPATITIS C VIRUS ANTIBODY NEGATIVE NEGATIVE [facility] HEPATITIS A ANTIBODY TOTAL NEGATIVE NEGATIVE [facility] HEPATITIS B CORE ANTIBODY NEGATIVE NEGATIVE [facility] Blood specimen (specimen) Blood / Unknown 09/29/2013 3:21 PM EDT 09/29/2013 4:24 PM EDT [facility] - 09/29/2013 9:50 PM EDT [facility] [address] [place] [address] PT ID [id number] ORD# [id number] Sophia Blue MD LAB - BLOOD DRA De Jesus Edited Result - Final [facility] [address] [place] [address], [place] [phone] * HIV-1 & HIV-2 ANTIBODIES (09/29/2013 3:21 PM EDT) [facility] HIV 1 AND 2 ANTIBODY SCREEN NEGATIVE NEGATIVE [facility] Blood specimen (specimen) Blood / Unknown 09/29/2013 3:21 PM EDT 09/29/2013 4:24 PM EDT [facility] - 09/30/2013 12:03 PM EDT [employer] [address] [place] [address] PT ID [id number] ORD# [id number] Sophia Blue MD LAB - BLOOD DRA De Jesus Final Result [facility] [address] [place] [address], [place] [phone] from Last 3 Months or Most Recently Relevant to Health Maintenance Insurance [employer] Care Teams Wildlife Ecologist Relationship Specialty Start Date End Date Dirk Mcdowell [phone] [place] [address] PCP - General Nutrition 08/02/15
--- NOTE | 2024-09-13 15:03 | HO.ANESPROP2 ---
Documented by User: Karishma Diggs NP 09/13/24 15:07 HPI - Anesthesia Eval Consult details Narrative: 54yo F for Upper Endoscopy with Balloon Dilitation Cardiac optimized. [place] [facility] [place] - holter and echo done this [facility] Active Problems Active Problems: All Active Problems Constipation (Acute) Pre-op examination (Acute) Hypertension (Acute) Palpitations (Acute) Chest pain (Acute) Urinary incontinence (Acute) Chronic pelvic pain in female (Acute) Erosive gastritis (Acute) Chronic gastric ulcer (Acute) Hemifacial spasm (Acute) Diabetes (Acute) Candidiasis of mouth and esophagus (Acute) Abdominal pain (Acute) Nausea and vomiting (Acute) Acromioclavicular joint arthritis (Acute) Muscle spasms of neck (Acute) Cervical spondylosis (Acute) Vertigo (Acute) Migraine without aura (Acute) Dysphagia (Acute) Fibromyalgia (Acute) Cerebral palsy (Acute) Pablo's thyroiditis (Acute) Asthma (Acute) Abdominal bloating (Acute) GERD (gastroesophageal reflux disease) (Acute) Past Medical History Medical History Erosive esophagitis Pre-op examination Chronic idiopathic constipation Colon cancer screening Hemifacial spasm Abdominal pain Pelvic pain in female Bilateral shoulder pain Vulvar irritation WISE (nonalcoholic steatohepatitis) Elevated antinuclear antibody (FELI) level FELI positive Encounter to discuss test results Hemifacial spasm of left side of face Peptic ulcer disease Esophageal spasm Family history of cerebral aneurysm Fibromyalgia Irritable bowel syndrome with both constipation and diarrhea History of meningitis Family History Family History Mother Aneurysm Endometrial cancer Father No problems noted. Family history of problems with anesthesia: No Surgical History Surgical History History of esophagogastroduodenoscopy (EGD) Keloid of skin H/O neck surgery Hx of section Hx of hysterectomy Hx of breast lump removal (~2019) History of bladder suspension procedure H/O bilateral breast reduction surgery History of Problems with Anesthesia: No Social History Social History Alcohol intake: never Patient Tobacco Use Status: Never used Tobacco Second Hand Smoke Exposure: No Use of substances other than those prescribed or required for medical reasons: No Have you been hit, kicked, punched, or otherwise hurt by someone within the past year? If so, by whom?: No Are you DNR?: No Advance Directives: No Advance Directives Information Provided: Yes Advance Directives on File: No Patient : No : No Poor oral hygiene: No Sexual orientation: Straight/Heterosexual Gender identity: Female Meds Allergies Allergy/AdvReac Type Severity Reaction Status Date / Time duloxetine (From CYMBALTA) Allergy Unknown UNKNOWN Verified 09/09/24 07:44 pregabalin (From LYRICA) Allergy Unknown UNKNOWN Verified 09/09/24 07:44 meperidine (From DEMEROL) AdvReac Intermediate N/V Verified 09/09/24 07:44 oxycodone (From Percocet) AdvReac Intermediate itching Verified 09/09/24 07:44 Home Medications ?Medication ?Instructions ?Recorded ?Confirmed ?Last Taken ?Type albuterol sulfate 90 mcg/actuation 2 puff inhalation Q6H PRN 12/27/19 09/09/24 Unknown History aerosol inhaler Shortness Of Breath Or Wheezing fluticasone propionate 50 1 inh inhalation BID 12/27/19 09/09/24 Unknown History mcg/actuation blister powder for inhalation loratadine 10 mg tablet 10 mg PO DAILY 12/27/19 09/09/24 Unknown History montelukast 10 mg tablet 10 mg PO BEDTIME 12/27/19 09/09/24 Unknown History (Singulair) lorazepam 2 mg tablet 2 mg PO BEDTIME PRN Anxiety 10/13/23 09/09/24 Unknown History losartan 25 mg tablet 25 mg PO QAM 10/13/23 09/09/24 Unknown History sertraline 50 mg tablet 50 mg PO BEDTIME depressive 10/13/23 09/09/24 Unknown History disorder prednisone 5 mg tablet 5 mg PO BID 03/04/24 09/09/24 Unknown History tizanidine 2 mg tablet 2 mg PO Q6H PRN muscle spasm 03/04/24 09/09/24 Unknown History zolpidem 10 mg tablet 10 mg PO BEDTIME PRN insomnia 03/04/24 09/09/24 Unknown History Exam Pertinent Lab Results Pertinent Lab Results: Laboratory Tests 05/03/24 05/18/24 11:04 09:59 WBC 8.1 Hgb 11.9 L Hct 35.8 L Plt Count 339 Sodium 140 Potassium 4.5 D Chloride 109 H Carbon Dioxide 24 BUN 20 H Creatinine 0.65 Narrative Narrative: 05/25/2024-patient underwent a Holter study for reports of palpitations and it showed underlying sinus rhythm with an average heart rate of 91 beats per minute, rare supraventricular and ventricular ectopies. 05/25/2024-patient's echo study showed a normal LV systolic function with an ejection fraction between 60-65%. Assessment and Plan Assessment Anesthesia Assessment: Chart Reviewed Final Anesthetic Review Family History of Problems with Anesthesia: No History of Problems with Anesthesia: No Documented by User: Ezequiel Villalta MD 09/15/24 09:47 PMFSH Past Medical History Medical History Erosive esophagitis Pre-op examination Chronic idiopathic constipation Colon cancer screening Hemifacial spasm Abdominal pain Pelvic pain in female Bilateral shoulder pain Vulvar irritation WISE (nonalcoholic steatohepatitis) Elevated antinuclear antibody (FELI) level FELI positive Encounter to discuss test results Hemifacial spasm of left side of face Peptic ulcer disease Esophageal spasm Family history of cerebral aneurysm Fibromyalgia Irritable bowel syndrome with both constipation and diarrhea History of meningitis Family History Family History Mother Aneurysm Endometrial cancer Father No problems noted. Surgical History Surgical History History of esophagogastroduodenoscopy (EGD) Keloid of skin H/O neck surgery Hx of section Hx of hysterectomy Hx of breast lump removal (~2019) History of bladder suspension procedure H/O bilateral breast reduction surgery Social History Social History Alcohol intake: never Patient Tobacco Use Status: Never used Tobacco Second Hand Smoke Exposure: No Use of substances other than those prescribed or required for medical reasons: No Have you been hit, kicked, punched, or otherwise hurt by someone within the past year? If so, by whom?: No Are you DNR?: No Advance Directives: No Advance Directives Information Provided: Yes Advance Directives on File: No Patient : No : No Poor oral hygiene: No Sexual orientation: Straight/Heterosexual Gender identity: Female Meds Allergies Allergy/AdvReac Type Severity Reaction Status Date / Time duloxetine (From CYMBALTA) Allergy Unknown UNKNOWN Verified 09/09/24 07:44 pregabalin (From LYRICA) Allergy Unknown UNKNOWN Verified 09/09/24 07:44 meperidine (From DEMEROL) AdvReac Intermediate N/V Verified 09/09/24 07:44 oxycodone (From Percocet) AdvReac Intermediate itching Verified 09/09/24 07:44 Home Medications ?Medication ?Instructions ?Recorded ?Confirmed ?Last Taken ?Type albuterol sulfate 90 mcg/actuation 2 puff inhalation Q6H PRN 12/27/19 09/09/24 Unknown History aerosol inhaler Shortness Of Breath Or Wheezing fluticasone propionate 50 1 inh inhalation BID 12/27/19 09/09/24 Unknown History mcg/actuation blister powder for inhalation loratadine 10 mg tablet 10 mg PO DAILY 12/27/19 09/09/24 Unknown History montelukast 10 mg tablet 10 mg PO BEDTIME 12/27/19 09/09/24 Unknown History (Singulair) lorazepam 2 mg tablet 2 mg PO BEDTIME PRN Anxiety 10/13/23 09/09/24 Unknown History losartan 25 mg tablet 25 mg PO QAM 10/13/23 09/09/24 Unknown History sertraline 50 mg tablet 50 mg PO BEDTIME depressive 10/13/23 09/09/24 Unknown History disorder prednisone 5 mg tablet 5 mg PO BID 03/04/24 09/09/24 Unknown History tizanidine 2 mg tablet 2 mg PO Q6H PRN muscle spasm 03/04/24 09/09/24 Unknown History zolpidem 10 mg tablet 10 mg PO BEDTIME PRN insomnia 03/04/24 09/09/24 Unknown History Exam Airway Mallampati Class: III TM Dist: >3cm Neck ROM: Full Assessment and Plan Assessment Anesthesia Assessment: Anesthesia Plan Discussed Final Anesthetic Review NPO: Yes ASA Class: III Final Preanesthetic Review: No Changes in Pt Med Stat, Meds/Allgs Chart Reviewed, Consent Obtained/Reviewed and Anes Risks/Benef Reviewed Patient Risk: Intermediate Procedure Risk: Low Anesthetic Plan Anesthetic Plan: TIVA Disposition: Standard PACU
--- NOTE | ~2024-09-15 | CT_ITS ---
EXAMINATION: CT ABDOMEN AND PELVIS WITHOUT CONTRAST CLINICAL INFORMATION: Status post EGD with balloon dilatation of the pylorus. Rule out perforation retroperitoneal or otherwise. COMPARISON: 01/21/2024 CT abdomen pelvis. TECHNIQUE: Multidetector volumetric imaging was performed from the superior aspect of the liver through the pubic symphysis. Sagittal and coronal reformatted images were obtained on the technologist's workstation. This CT examination was performed using dose optimization techniques as appropriate, variously including the following: *Automated exposure control *Adjustment of mA and/or kV according to patient size (this includes techniques or standardized protocols for targeted exams where dose is matched to indication/reason for exam; i.e. extremities or head) *Use of iterative reconstruction technique FINDINGS: LUNG BASES: There is a tiny right pleural effusion, new from prior. There is mild right basilar passive and linear atelectasis. The left lung bases clear. There is borderline cardiac enlargement. There is no pericardial effusion. There is mild thickening of the distal esophagus noted, suggesting esophagitis. LIVER, GALLBLADDER, AND BILIARY TREE: The unenhanced liver demonstrates diffuse fatty infiltration. There is focal fatty sparing abutting the gallbladder fossa. There is no suspicious focal hepatic lesion. There is no intrahepatic biliary duct dilatation. The gallbladder is unremarkable with no evidence of radiopaque gallstones, gallbladder wall thickening, or obvious pericholecystic inflammatory changes. PANCREAS: Unremarkable. SPLEEN: Unremarkable. ADRENAL GLANDS: Unremarkable. KIDNEYS AND URETERS: The kidneys are normal in size, shape, and attenuation. No hydronephrosis, hydroureter, or calculi seen. No perinephric stranding. BLADDER: Suboptimally distended but grossly normal. GASTROINTESTINAL TRACT: No abnormality at the region of the pylorus is noted. The stomach is normal. The duodenal sweep appears normal. The small bowel is normal in caliber and course. No wall thickening or inflammation. The colon is normal in caliber and course without wall thickening or inflammation. There are a few scattered diverticula in the sigmoid region. Normal appendix is visualized. ABDOMINAL WALL: There is a tiny right fat-containing inguinal hernia. There may be a tiny left fat-containing inguinal hernia as well. LYMPH NODES: There is no abnormal lymphadenopathy present. VASCULAR: Unremarkable. PELVIC VISCERA: There has been a hysterectomy. Adnexal structures are normal. OSSEOUS STRUCTURES: There is no suspicious lytic or blastic bone lesion. There is a partially sacralized L5 vertebral body. CT/CT abdomen pelvis wo IV con IMPRESSION: 1. There is no evidence of abnormality of the stomach or pylorus. There is no evidence of inflammation or perforation. 2. There is a new tiny right layering pleural effusion. Etiology is unclear. 3. Diffuse fatty infiltration of the liver. No suspicious liver lesion. 4. Hysterectomy. No adnexal abnormalities. 5. Mild sigmoid diverticulosis. 6. Additional ancillary findings as discussed in the body of the report. Electronically signed by: Lior Herrera MD 09/15/2024 12:16 PM EDT
[2024-09-15 08:25] VITALS: BMI 39.1
[2024-09-15 08:34] VITALS: BP 116/81; PULSE 82; RESP 16; TEMP 36.2; O2SAT 98
[2024-09-15] MEDS: Lactated Ringers 1,000 ML 100 ML IVCONT (08:51)
[2024-09-15 09:45] LABS: Glucose, Whole Blood 99 mg/dL (60-115)
--- NOTE | 2024-09-15 10:02 | MHC.SHP ---
Pre-Procedural Eval Section A - 24 Hr Update-Section A only Date of Service: 09/15/24 Section B - Complete if H&P > 30 days Chief Complaint: Dysphagia, unspecified Relevant Family History (Specify if Yes): No Relevant Social History: None Present Medications: see Short Stay Collaborative assessment Medical History: Significant History (Erosive esophagitis Pre-op examination Chronic idiopathic constipation Colon cancer screening Hemifacial spasm Abdominal pain Pelvic pain in female Bilateral shoulder pain Vulvar irritation WISE (nonalcoholic steatohepatitis) Elevated antinuclear antibody (FELI) level FELI positive Encounter to discus) History of Previous Operations: Relevant previous surgery/procedure and date(s) (History of esophagogastroduodenoscopy (EGD) Keloid of skin H/O neck surgery Hx of section Hx of hysterectomy Hx of breast lump removal (~2019) History of bladder suspension procedure H/O bilateral breast reduction surgery) Allergies: Allergies Allergy/AdvReac Type Severity Reaction Status Date / Time duloxetine (From CYMBALTA) Allergy Unknown UNKNOWN Verified 09/09/24 07:44 pregabalin (From LYRICA) Allergy Unknown UNKNOWN Verified 09/09/24 07:44 meperidine (From DEMEROL) AdvReac Intermediate N/V Verified 09/09/24 07:44 oxycodone (From Percocet) AdvReac Intermediate itching Verified 09/09/24 07:44 Review of Systems Sugical H&P ROS: Negative: Constitution, Cardiovascular, Respiratory, Neurological, Psychiatric, Hem-Onc, Allergic/Immunologic, Gastrointestinal, Genitourinary, Musculoskeletal, Integumentary, Endocrine and Eyes/Ears/Nose/Throat Exam Surgical H&P Exam: Normal: HEENT, Normal: Heart, Normal: Lungs, Normal: Extremities, Normal: Abdomen, Normal: Skin and Normal: Neurological Plan Diagnosis/Plan: Unchanged I have reviewed the history and physical and performed a pertinent physical examination on my patient. No changes have occurred unless specified. Time Spent With Patient Time: Total time managing care of this patient today ____ minutes.
--- NOTE | 2024-09-15 10:27 | W.PM.OPN ---
Operative Note Operative Note Date of Service: 09/15/24 Narrative: Procedure Description: EGD Indication: dysphagia and hx of ulcer Anesthesia: MAC FLEXIBLE TRANSORAL UPPER GASTROINTESTINAL ENDOSCOPY UPPER ENDOSCOPY Consent: Indications for the procedure and potential complications of bleeding, perforation, reaction to medications and missed diagnosis were discussed with the patient and informed consent was obtained. Instrument: Olympus GIF H 190 J mid size upper endoscope Monitoring: Vital signs and clinical assessment, continuous EKG monitoring, Pulse oximetry, Carbon Dioxide monitoring and blood pressure monitoring were done throughout the procedure. Procedure: The patient was placed in the left lateral decubitis position and pre-procedure medications were administered and a bite block was placed. The endoscope was inserted into the mouth and advanced under direct vision to the third part of duodenum. A careful inspection was made as the upper endoscope was withdrawn including a retroflexed examination of the proximal stomach; Findings and interventions are described below. Findings: Larynx:normal Esophagus: GE junction at 38 cm, diaphragm hiatus at 38 cm, mild esophagitis, balloon dilation of LES to 20 mm and 20 mm at UES Stomach: mild area of inudration in pre pyloric area, prior ulcer also fully healed . Biopsies were obtained. Grade 2 flap valve on retroflexed examination of the cardia. pylorus was tight and dilated with balloon to 20 mm with some heme noted. Duodenum: Normal bulb and descending duodenum, Intervention: Biopsies as noted above, balloon dilation Impression/Findings: gastritis mild esophagitis PLAN: cont with PPI if h pylori pos then treat GERD precautions repeat EGD in 3-6 months to check for ulcer resolution
[2024-09-15 10:37] VITALS: BP 106/74; PULSE 83; RESP 17; TEMP 36.9; O2SAT 98
[2024-09-15 10:52] VITALS: BP 123/83; PULSE 73; RESP 20; TEMP 36.1; O2SAT 97
[2024-09-15 11:30] VITALS: BP 124/78; PULSE 74; RESP 20; O2SAT 98
[2024-09-15 12:00] VITALS: BP 128/78; PULSE 74; RESP 20; O2SAT 97
[2024-09-15 12:25] LABS: MANUAL DIFF FLAG NO
[2024-09-15 12:28] LABS: Hematocrit 38.2 % (37.0-47.0); Hemoglobin 12.7 g/dl (12.0-16.0); Imm Gran Abs Auto 0.02 X10*3/uL (0.00-0.03); Imm Gran Pct Auto 0.4 % (0.0-0.4); Lymphocytes Absolute Auto 0.8 X10*3/uL (1.2-4.9); Mean Corpuscular HGB Conc 33.2 g/dl (31.0-35.0); Mean Corpuscular Hemoglobin 29.4 pg (27.0-33.0); Mean Corpuscular Volume 88.4 fL (80.0-98.0); NRBC Abs Auto 0.000 X10*3/uL (0.0-0.012); NRBC Pct Auto 0.0 /100WBC (0.0-0.2); Platelet Count 345 X10*3/uL (160-400); Red Blood Count 4.32 X10*6/uL (4.20-5.50); White Blood Count 5.4 X10*3/uL (4.8-10.8)
[2024-09-15 12:42] LABS: Alanine Aminotransferase 14 U/L (0-31); Albumin Level 3.8 g/dL (3.5-5.0); Alkaline Phosphatase 49 U/L (39-117); Anion Gap 11 (12-20); Aspartate Amino Transferase 16 U/L (5-31); Blood Urea Nitrogen 19 mg/dL (9-16); Calcium 8.5 mg/dL (8.4-10.2); Carbon Dioxide 27 mmol/L (22-29); Chloride 108 mmol/L (96-108); Creatinine Clr Calc Pharmacy 94.1; Estimated Glomerular Filt Rate > 60; Lipase 47 U/L (8-78); Potassium 4.2 mmol/L (3.3-5.1); Sodium 142 mmol/L (135-145); Total Protein 6.9 g/dL (6.5-8.0)
[2024-09-15] MEDS: Mag&Al/Sim/Diphenhyd/Lidocaine 10 ML ORAL.SUSP PO (13:21)
== END 2024-09-15 13:52 | disposition home or self-care (01) ==
PROVIDERS: PCP Internal Medicine; Visit Provider Internal Medicine Gastroenterology
PROC: (CPT 43239; principal; 2024-09-15 10:10)
DX: R13.10 Dysphagia, unspecified (principal); K22.2 Esophageal obstruction; K31.1 Adult hypertrophic pyloric stenosis; K29.60 Other gastritis without bleeding; K20.80 Other esophagitis without bleeding; I10 Essential (primary) hypertension; E11.9 Type 2 diabetes mellitus without complications; J45.909 Unspecified asthma, uncomplicated; G80.9 Cerebral palsy, unspecified; Z79.899 Other long term (current) drug therapy
CPT/HCPCS: 43239; 43249; 43245; 36415; 74176; 80053; 82947; 83690; 85025; 88305; 88313; 88342; C1726; J2003; J2704

== ENCOUNTER → 2024-09-15 08:04 | Outpatient (BNV) | payer MEDICAID, SELFPAY | PROVIDERS: PCP Internal Medicine; Visit Provider Internal Medicine Gastroenterology | DX: R13.10 Dysphagia, unspecified (principal); K20.90 Esophagitis, unspecified without bleeding; R10.13 Epigastric pain; K29.70 Gastritis, unspecified, without bleeding | CPT/HCPCS: 43245; 43249 ==

== ENCOUNTER → 2024-09-15 11:28 | Outpatient (BNV) | payer MEDICAID, SELFPAY | PROVIDERS: PCP Internal Medicine; Visit Provider Radiology Diagnostic Radiology | DX: K57.30 Diverticulosis of large intestine without perforation or abscess without bleeding (principal) | CPT/HCPCS: 74176 ==

== ENCOUNTER 2024-09-30 15:31 | Outpatient (AMB) | payer MEDICAID, SELFPAY ==
--- OUTSIDE RECORDS SUMMARY | 2024-09-30 15:34 | XMS_ITS | Clinical Summary ---
Author Organization [facility] Address [address] [place] [address] Care Team Providers Care Hotel Attendant Name Role Phone Unavailable Primary Care Provider [...]
--- OUTSIDE RECORDS SUMMARY | 2024-09-30 15:34 | XMS_ITS | Clinical Summary ---
Author Organization [facility] Address [address] [place] [address] Care Team Providers Care It Network Engineer Name Role Phone Cristian Chacon MD [...] tablet PLEASE SEE ATTACHED FOR DETAILED DIRECTIONS 01/11/20 22 Active Ventolin HFA 90 mcg/actuation inhaler INHALE 2 PUFFS EVERY 4 HOURS IF NEEDED FOR WHEEZING. 03/20/19 23 Active blood pressure test kit-large kit Check blood pressure on arm as directed DAILY 03/20/19 23 Active famotidine (PEPCID) 20 mg tablet Take 20 mg by mouth 2 times a day. 01/11/20 22 Active Advair HFA 230-21 mcg/actuation inhaler 2 puffs 2 times a day. 06/03/19 22 Active folic acid (FOLVITE) 1 mg tablet TOME ОЛЕГ TABLETA DOS LOS D 08/28/19 22 Active hydrocortison e 2.5% cream Apply topically to the affected area 2 times a day. 01/14/20 22 Active hydrOXYchloro QUINE (PLAQUENIL) 200 mg tablet TOME ОЛЕГ TABLETA DOS LOS D 05/17/19 22 Active LORazepam (ATIVAN) 0.5 mg tablet Take 0.5 mg by mouth 2 times a day as needed. 01/29/20 22 Active loratadine (CLARITIN) 10 mg tablet Take 10 mg by mouth once daily as needed. Active meclizine (ANTIVERT) 25 mg tablet Take 25 mg by mouth 3 times a day as needed. 10/08/19 22 Active metoclopramid e (REGLAN) 10 mg tablet Take 10 mg by mouth 3 times a day as needed. 01/11/20 22 Active estradioL (ESTRACE) 0.01 % (0.1 mg/gram) vaginal cream Apply a pea sized amount nightly to vaginal entrance Estradiol powder compounded in safflower base 42.5 g 3 04/04/19 23 Active predniSONE (DELTASONE) 1 mg tablet Take 4 tablets (4 mg total) by mouth once a day. 120 tablet 5 09/23/19 24 Active nystatin (MYCOSTATIN) 100,000 unit/gram powderIndicat ions:Intertri go Apply topically to the affected area 2 times a day. On lower abdomen 60 g 5 01/05/20 24 Active zolpidem (AMBIEN) 10 mg tablet Take 10 mg by mouth nightly as needed for sleep. 01/08/20 24 Active sertraline (ZOLOFT) 50 mg tablet Take 50 mg by mouth once a day. 01/04/20 24 Active SUMAtriptan (IMITREX) 50 mg tablet Take 50 mg by mouth once as needed for migraine. Active pregabalin (LYRICA) 25 mg capsule Take 25 mg by mouth 2 times a day. Active lidocaine (LIDODERM) 5% patch Apply 1 patch topically to the affected area once a day. 01/03/20 24 Active ketoconazole (NIZORAL) 2% cream Apply 1 Application topically to the affected area daily. Active fluticasone propionate (FLOVENT HFA) 220 mcg inhaler Inhale 1 puff by mouth 2 times a day. Active diclofenac (VOLTAREN) 75 mg EC tablet Take 75 mg by mouth 2 times a day. Active tiZANidine (ZANAFLEX) 2 mg tablet TAKE 1 TABLET BY MOUTH EVERY 6 HOURS NEEDED FOR MUSCLE SPASMS. 120 tablet 1 03/09/19 25 Active naproxen (NAPROSYN) 500 mg tablet Take 500 mg by mouth 2 times a day with meals. Active predniSONE (DELTASONE) 5 mg tablet Take 1 tablet (5 mg total) by mouth 2 times a day. 60 tablet 2 07/21/19 25 Active mycophenolate (CELLCEPT) 500 mg tablet TOME ОЛЕГ TABLETA DIARIAMENTE 30 tablet 1 09/21/19 25 Active gabapentin (NEURONTIN) 300 mg capsule Take 300 mg by mouth 3 times a day. 025 Discontinued(Di scontinued by another clinician) mycophenolate (CELLCEPT) 500 mg tablet Take one tablet daily 30 tablet 1 07/21/19 25 025 Discontinued Active Problems Problem Noted Date Diagnosed [...] LESION, MOST LIKELY HEMORRHAGIC OVARIAN CYST. F/U [facility] S/P US PELVIS 07/04/13 DUE PELVIC PAIN. 2.9 X 3.8 X 3 CM LEFT ADNEXAL CYSTIC LESION, MOST LIKELY HEMORRHAGIC OVARIAN CYST. F/U PUBLIC HE[facility] Left carpal tunnel syndrome 06/22/2013 Allergic rhinitis due to allergen 2008 Gastroesophageal reflux disease without esophagi tis 07/13/2007 Mixed anxiety depressive disorder 05/13/2007 Overview (08/16/2024): F/U [facility] (DR[facility] N[facility]). F/U [facility] (DR. NANCE). Hypothyroidism 05/13/2007 Overview (08/16/2024): [...] Mcdowell Insomnia 05/13/2007 Overview (08/16/2024): F/U AT [facility] (DR. NANCE). F/U AT [facility] (DR. NANCE). Encounters Date Type Department Care Team Description 09/21/2024 11:40 AM EDT Follow-Up [facility] [address] [place], [place] [id number] Road Crossing Guard: Alonzo Baez MD Systemic lupus erythematosus with other organ involvement, unspecified SLE type (HCC) (Primary Dx); Moderate persistent asthma, unspecified whether complicated (HCC); Abnormal pulmonary function test 09/20/2024 Refill [facility] [address] [place] [phone] [address] Crossing Guard: Alonzo Baez MD 09/06/2024 3:20 PM EDT Follow-Up [facility] [address] [place] [address] [address] Crossing Guard: Dennis Laguna MD Shortness of breath (Primary Dx); Allergic rhinitis due to other allergic trigger, unspecified seasonality 09/06/2024 1:30 PM EDT - 09/06/2024 11:59 PM EDT Hospital Encounter [facility] [address] [place] [address] Dennis Vallejo MD Shortness of breath Discharge Disposition: Home or Self Care () 08/16/2024 2:00 PM EDT Office Visit [facility] [address] [place] [address] [address] Crossing Guard: Dennis Laguna MD Shortness of breath (Primary Dx) 08/12/2024 Telephone [facility] [address] [place] [address] [address] Crossing Guard: Marichuy Agee MA 07/20/2024 1:40 PM EDT Follow-Up [facility] [address] [place] [address] [address] [address] Crossing Guard: Alonzo Baez MD FELI positive (Primary Dx); [...] Sign Reading Time Taken Comments Blood Pressure 114/80 09/21/2024 10:58 AM EDT Pulse 86 09/21/2024 10:58 AM EDT Temperature 36.8 C (98.2 F) 09/21/2024 10:58 AM EDT Respiratory Rate 18 09/06/2024 2:55 PM EDT Oxygen Saturation 97% 09/21/2024 10:58 AM EDT Inhaled Oxygen Concentration - - Weight 88 kg (194 lb) 09/21/2024 10:58 AM EDT Height 157.5 cm (5' 2 ) 07/20/2024 12:19 PM EDT Body Mass Index 35.48 07/20/2024 12:19 PM EDT Plan of Treatment Upcoming Encounters Date Type Department Care Team (Late st Contact Info) Description 10/11/2024 9:45 AM EDT Appointment [facility] [address] [place] [address] Dennis Vallejo MD [address] [place] [id number] 12/06/2024 1:00 PM EDT Follow-Up [facility] [address] [place] [address] [address] Crossing Guard: Dennis Laguna MD [address] [place] [id number] 12/06/2024 1:30 PM EDT Follow-Up [facility] [address] [place] [address] Road Crossing Guard: Morales Ramsey MD [address] [place] [id number] Scheduled Procedures Name Priority Associated Diagnoses Date/Ti [...] Td or Tdap) 10/14/2020 10/14/2010 COVID-19 Vaccine (2023-2 5 season) 2023 01/04/2022, 03/22/2021, 07/22/2020, Additional history exists Alcohol/Substance Use Screening 03/02/2024 Depression Screening and Follow-Up 03/02/2024 [facility] ual Screening 03/02/2024 Mammogram 05/20/2024 05/20/2022, 05/01, 05/20/2022, Additional history exists Influenza Vaccine (#1) 2024 , 01/04/2022, 02/12/2021, Additional history exists Colon Cancer Screening 11/17/2024 FOBT / Fit Test 11/17/2024 11/18/2023 Hemoglobin A1C 11/29/2024 05/30/2024, 12/0 05/2023, 11/18/2023, Additional history exists Urine Microalbumin 04/20/2025 04/20/2024, 0 03/23/2024, 11/11/2023, Additional history exists Basic Metabolic Panel 09/15/2025 09/15/2024 , 07/20/2024, 06/30/2024, Additional history exists RSV Vaccine (60+ years [...] [facility] 09/06/2024 1:48 PM EDT [facility] - 09/06/2024 1:48 PM [...] 1:80(H) <1:10 titer 07/27/2024 8:43 AM EDT [facility] ([place]) Blood Structure of peripheral vein / Unknown Venipuncture / Unknown 07/20/2024 1:58 PM EDT 07/20/2024 2:39 PM EDT Narrative [facility] - 07/27/2024 8:43 AM EDT [facility] Received Date: us Alonzo Persaud MD LAB BLOOD ORDERABLES Final Result [facility]ILLIP ROSARIO [address] [place] [address] [address]rd Floor, [place] [address], [place] [phone] [employer] ([place]) [address] [place], [place] , [place] * (ABNORMAL) DNA Antibody (ds) Crithidia IFA w/Reflex (07/20/2024 1:58 PM EDT) DNA Ab(ds) Crithidia, IFA Positive(A ) Negative 07/27/2024 8:10 AM EDT PHILLIP LAO ([place]) Blood Structure of peripheral vein / Unknown Venipuncture / Unknown 07/20/2024 1:58 PM EDT 07/20/2024 2:39 PM EDT Wilfredo ROSARIO - 07/27/2024 8:10 AM EDT [facility] Received Date:[id number] Alonzo Persaud MD LAB BLOOD ORDERABLES Final Result Performing Organization Address City/[facility]/ZIP Co de Phone Number PHILLIP ROSARIO [address] [facility] 3rd Floor, [place] [address], [place] [phone] [facility] [address] [place] [address], [place] * (ABNORMAL) DNA Antibody, Double-Stranded (07/20/2024 1:58 PM EDT) DNA (Ds) Antibody 65(H) IU/mL 025 11:01 PM EDT [employer] [facility] Comment: IU/mL Interpretation < or = 4 Negative 5-9 Indeterminate > or = 10 Positive Blood Structure of peripheral vein / Unknown Venipuncture / Unknown 07/20/2024 1:58 PM EDT 07/20/2024 2:39 PM EDT Wilfredo ROSARIO - 07/21/2024 11:01 PM EDT [facility] Received Date:[id number] Alonzo Persaud MD LAB BLOOD ORDERABLES Final Result Performing Organization Address City/[facility]/ZIP Co de Phone Number [facility] [address] [facility] [address]rd Floor, [place] [address], [place] [phone] [facility] [address] [facility] 3rd Floor, [place] [address], [place] [phone] * Sedimentation Rate (07/20/2024 1:58 PM EDT) Sed Rate 28 <30 mm/Hr mm/Hr 07/20/2024 2:52 PM EDT [facility] Blood Structure of peripheral vein / Unknown Venipuncture / Unknown 07/20/2024 1:58 PM EDT 07/20/2024 2:40 PM EDT us Alonzo Persaud MD LAB BLOOD ORDERABLES Final Result [facility] [address] [place] [address], [place] * (ABNORMAL) CBC (07/20/2024 1:58 PM EDT) WBC 5.4 3.8 - 10.8 10*3/uL 07/20/2024 2:48 PM EDT [facility] RBC 4.36 3.80 - 5.10 10*6/uL 07/20/2024 2:48 PM EDT [facility] Hemoglobin 12.3 11.7 - 15.5 g/dL 07/20/2024 2:48 PM EDT [facility] Hematocrit 39.0 35.0 - 45.0 % 07/20/2024 2:48 PM EDT [facility] MCV 89.4 80.0 - 100.0 fL 07/20/2024 2:48 PM EDT [facility] MCH 28.2 27.0 - 33.0 pg 07/20/2024 2:48 PM EDT [facility] MCHC 31.5(L) 32.0 - 36.0 g/dL 07/20/2024 2:48 PM EDT [facility] RDW 13.9 11.0 - 15.0 % 07/20/2024 2:48 PM EDT [facility] Platelets 388 140 - 400 10*3/uL 07/20/2024 2:48 PM EDT [facility] MPV 9.4 7.5 - 12.5 fL 07/20/2024 2:48 PM EDT [facility] Blood Structure of peripheral vein / Unknown Venipuncture / Unknown 07/20/2024 1:58 PM EDT 07/20/2024 2:39 PM EDT Alonzo Persaud MD LAB BLOOD ORDERABLES Final Result [facility] [address] [place] [address], [place] * C3 complement (07/20/2024 1:58 PM EDT) Complement Component C3C 113 83 - 193 mg/dL 07/21/2024 6:58 AM EDT [facility] Blood Structure of peripheral vein / Unknown Venipuncture / Unknown 07/20/2024 1:58 PM EDT 07/20/2024 2:39 PM EDT Narrative [facility] - 07/21/2024 6:58 AM EDT [facility] Received Date: Alonzo Persaud MD LAB BLOOD ORDERABLES Final Result Performing Organization Address City/[facility]/ZIP Co de Phone Number [facility] [address] [facility] [address] [facility] [address] [place] [address], [place] [phone] [facility] [address] [facility] 3rd Floor, [place] [address], [place] [phone] * C4 complement (07/20/2024 1:58 PM EDT) Complement Component C4C 23 15 - 57 mg/dL 07/21/2024 6:58 AM EDT [facility] Blood Structure of peripheral vein / Unknown Venipuncture / Unknown 07/20/2024 1:58 PM EDT 07/20/2024 2:39 PM EDT Narrative [facility] - 07/21/2024 6:58 AM EDT [facility] Received Date: us Alonzo Persaud MD LAB BLOOD ORDERABLES Final Result [facility] [address] [facility] [address]rd Floor, [place] [address], [place] [phone] [facility] [address] [facility] [address]rd [address], [place] [address], [place] [phone] * (ABNORMAL) C-reactive protein (07/20/2024 1:58 PM EDT) C Reactive Protein 27.0(H) <=9.9 mg/L 07/20/2024 3:12 PM EDT [facility] Blood Structure of peripheral vein / Unknown Venipuncture / Unknown 07/20/2024 1:58 PM EDT 07/20/2024 2:39 PM EDT Alonzo Persaud MD LAB BLOOD ORDERABLES Final Result Performing Organization Address City/State/[facility] Co de Phone Number [facility] [address] [place] [address], * (ABNORMAL) Comprehensive metabolic panel (07/20/2024 1:58 PM EDT) NA 141 135 - 145 mmol/L 07/20/2024 3:13 PM EDT [facility] K 3.9 3.5 - 5.3 mmol/L 07/20/2024 3:13 PM EDT [facility] Cl 106 98 - 107 mmol/L 07/20/2024 3:13 PM EDT [facility] CO2 25 22 - 32 mmol/L 07/20/2024 3:13 PM EDT [facility] Anion Gap 10 5 - 15 07/20/2024 3:13 PM EDT [facility] Glucose 116(H) 65 - 99 mg/dL 07/20/2024 3:13 PM EDT [facility] Creatinine 0.77 0.50 - 1.20 mg/dL 07/20/2024 3:13 PM EDT [facility] Calcium 8.7 8.6 - 10.5 mg/dL 07/20/2024 3:13 PM [facility] Total Protein 6.9 6.0 - 8.0 g/dL 07/20/2024 3:13 PM [facility] Albumin 3.4(L) 3.5 - 5.2 g/dL 07/20/2024 3:13 PM EDT [facility] Bilirubin, Total <0.2(L) 0.2 - 1.2 mg/dL 07/20/2024 3:13 PM [facility] Alkaline Phosphatase 56 35 - 129 U/L 07/20/2024 3:13 PM [facility] AST 16 10 - 40 U/L 07/20/2024 3:13 PM [facility] ALT 14 10 - 40 U/L 07/20/2024 3:13 PM [facility] BUN 23 7 - 23 mg/dL 07/20/2024 3:13 PM [facility] eGFR >90 >=60 mL/min/1 .73m2 07/20/2024 3:13 PM [facility] Comment:The estimated glomer ular [...] - 4.2 g/dL 07/20/2024 3:13 PM EDT [facility] A/G Ratio 1.0(L) 1.5 - 3.0 07/20/2024 3:13 PM EDT [facility] Blood Structure of peripheral vein / Unknown Venipuncture / Unknown 07/20/2024 1:58 PM EDT 07/20/2024 2:39 PM EDT Alonzo Persaud MD LAB BLOOD ORDERABLES Final Result Performing Organization Address City/[facility]/ZIP Co de Phone Number [facility] [address] [place] [address], * Microalbumin, Random Urine with Creatinine (04/20/2024 9:23 AM EST) Pathologist [facility] Microalbumin, Urine <2.0 mg/dL 04/20/2024 12:17 PM EST [facility] Creatinine, Urine 186 15 - 278 mg/dL 04/20/2024 12:17 PM EST [facility] Microalb/Creat Ratio, Random Urine 04/20/2024 12:17 PM EST [facility] Comment: < 1.0 mcg/mgCr Microalbumin Reference Range: Normal <30 mcg/mg Creatinine Microalbuminuria 30-300 mcg/mg Creatinine Clinical Albuminuria >300 mcg/mg Creatinine Reference: ADA Guideline. Diabetes Care. 2004;27 (suppl 1) Urine Voided urine specimen / Unknown Non-Blood Collection / Unknown 04/20/2024 9:23 AM EST 04/20/2024 9:39 AM EST Alonzo Persaud MD LAB URINE ORDERABLES Final Result Performing Organization Address City/[facility]/ZIP Co de Phone Number [facility] [address] [place] [address], [facility] [address] [place] [address], * Hepatitis C Antibody w/Reflex to HCV RNA, Quantitative PCR (06/04/2022 5:43 PM EDT) Hepatitis C Antibody NON-REACT BETO NON-REACT BETO 06/05/2022 3:44 AM EDT [employer] [facility] Signal To Cut-Off 0.02 <1.00 06/05/2022 3:44 AM EDT [employer] [facility] Comment: HCV antibody was non-reactive. There is no laboratory evidence of HCV infection. In most cases, no further action is required. However, if recent HCV exposure is suspected, a test for HCV RNA (test code 62061) is suggested. For additional information please refer to http://education.[employer]Sent/faq/KHR54k1 (This link is being provided for informational/ educational purposes only.) Blood Structure of peripheral vein / Unknown Venipuncture / Unknown 06/04/2022 5:43 PM EDT 06/04/2022 6:08 PM EDT Narrative [facility] - 06/05/2022 3:44 AM EDT [facility] Received Date: Alonzo Persaud MD LAB BLOOD ORDERABLES Final Result [facility] [address] [facility] 3rd Floor, [place] [address], [facility] [address] [facility] 3rd Floor, [place] [address], [place] [phone] from Last 3 Months or Most Recently Relevant to Health Maintenance Insurance [id number] Care Teams It Network Engineer Relationship Specialty Start Date End Date Cristian Chacon MD [address] [place] [address] PCP - General 06/04/22
--- OUTSIDE RECORDS SUMMARY | 2024-09-30 15:34 | XMS_ITS | Clinical Summary ---
Author Organization [facility] Address [address] [place] [address] Phone Care Team Providers Care Mental Health Counselor Name Role Phone Cristian Chacon Primary Care [...] EDT - 06/30/2024 6:00 PM EDT Emergency [facility] Emergency [address] [place] [id number] Jaime Erickson MD Nonintractable headache, unspecified chronicity pattern, unspecified headache type (Primary Dx); Cervicalgia of jkdbishx-[id number] region Discharge Disposition: Home or Self Care from Last 3 Months Surgical History Surgery Date Site/Laterality Comments CARPAL TUNNEL RELEASE Left CATARACT EXTRACTION SECTION HYSTERECTOMY CYST REMOVAL on foot BLADDER bladder mesh BREAST REDUCTION Medical History Medical History Date Comments Fibromyalgia Asthma Diabetes mellitus ([facility] V24, [facility] V28) Hypertension Migraine Lupus (systemic lupus erythematosus) ([facility] V2 4, [facility] V28) GERD (gastroesophageal reflux disease) Gastritis [...] 02/02/2022 Social Influencers of Health Screening 02/02/2022 Depression Screening 03/02/2024 Diabetes: Blood Sugar Control Test (HGBA1C) 05/17/2024 11/18/2023 COVID-19 Vaccine (6 - Mixed Product risk season) 2024 12/18/2023, 01/04/2022, 03/22/2021, Additional history exists Influenza Vaccine (#1) 2024 , 12/11/2022, 01/04/2022, Additional history exists Diabetes: Annual Urine Albumin-Creatinine Ratio (uACR) 04/20/2025 [...] ECG 12-LEAD STAT 06/30/2024 1:27 PM EDT [id number], RSV, FLU A AND B QUALITATIVE RT-PCR, INTERNAL LAB STAT 06/30/2024 1:24 PM EDT [facility] SCREENING DIGITAL Routine 02/27/2018 5:16 PM EST Encounter for screening mammogram for malignant neoplasm of breast from Last 3 Months or Most Recently Relevant to Health Maintenance Results * ECG-Annotated (07/04/2024) us Provider Onbase MD ECG ORDERABLES Final Result * (ABNORMAL) POCT Glucose, blood (06/30/2024 5:23 PM EDT) [facility] Glucose POCT 150(H) 70 - 100 mg/dL 06/30/2024 5:25 PM EDT [facility] Blood Capillary blood specimen / Unknown 06/30/2024 5:23 PM EDT 06/30/2024 5:26 PM EDT us Jaime Erickson MD LAB POINT OF CARE T EST DOCKED DEVICE UNSOLICITED RESULTS Final Result [facility] [address] [place] [address], [place] [phone] * Urinalysis with reflex microscopic and culture (06/30/2024 4:03 PM EDT) Specific [place] Urine 1.018 1.003 - 1.030 LAB URINALYSIS - AUTOMATED METHOD 06/30/2024 4:49 PM EDT [facility] pH, Urine 7.5 5.0 - 8.0 pH LAB URINALYSIS - AUTOMATED METHOD 06/30/2024 4:49 PM [facility] Leukocytes, Urine Negative Negative LAB URINALYSIS - AUTOMATED METHOD 06/30/2024 4:49 PM [facility] Nitrite, Urine Negative Negative LAB URINALYSIS - AUTOMATED METHOD 06/30/2024 4:49 PM [facility] Protein, Urine Trace <=Trace mg/dL LAB URINALYSIS - AUTOMATED METHOD 06/30/2024 4:49 PM T [facility] Glucose, Urine Negative Negative mg/dL LAB URINALYSIS - AUTOMATED METHOD 06/30/2024 4:49 PM EDT [facility] Ketones, Urine Negative Negative mg/dL LAB URINALYSIS - AUTOMATED METHOD 06/30/2024 4:49 PM [facility] Urobilinogen, Urine 1.0 0.2 - 1.0 mg/dL LAB URINALYSIS - AUTOMATED METHOD 06/30/2024 4:49 PM [facility] Bilirubin, Urine Negative Negative LAB URINALYSIS - AUTOMATED METHOD 06/30/2024 4:49 PM [facility] Blood, Urine Negative Negative LAB URINALYSIS - AUTOMATED METHOD 06/30/2024 4:49 PM EDT [facility] Urine Urine specimen obtained by clean catch procedure / Unknown Non-blood Collection / Unknown 06/30/2024 4:03 PM EDT 06/30/2024 4:29 PM EDT Jaime Erickson MD LAB URINE ORDERABLES Final Result Performing Organization Address City/[facility]/ZIP Co de Phone Number [facility] [address] [place] [address], [place] [phone] * Lu urine culture tube (06/30/2024 4:03 PM EDT) [facility] Extra Tube Hold for add-ons. 06/30/2024 6:01 PM EDT [facility] Comment:Auto resulted. Urine Urine specimen obtained by clean catch procedure / Unknown Non-blood Collection / Unknown 06/30/2024 4:03 PM EDT 06/30/2024 4:29 PM EDT Jaime Erickson MD LAB URINE ORDERABLES Final Result Performing Organization Address [facility] de Phone Number [facility] [address] [place] [address], [place] [phone] * Troponin I high sensitivity (06/30/2024 2:51 PM EDT) Only the most recent of2 resultswithin the time period is included. [facility] High Sensitivity Troponin I 5 <=54 ng/L LAB CHEMISTRY METHOD 06/30/2024 4:06 PM EDT [facility] Blood Venous blood specimen / Unknown Venipuncture / Unknown 06/30/2024 2:51 PM EDT 06/30/2024 3:08 PM EDT Narrative [facility] - 06/30/2024 4:06 PM EDT High levels of biotin in samples may falsely decrease hsTroponin values. Use caution when interpreting hsTroponin results in patients taking biotin who exhibit renal impairment (eGFR <60) or in patients taking more than 20 mg/day of biotin. Jaime Erickson MD LAB BLOOD ORDERABLES Final Result [facility] [address] [place] [address], [place] [phone] * XR Chest 2 Views (06/30/2024 2:37 [...] Signed Date: 06/30/2024 14:52 ET Workstation ID: [id number] Transcribed By: Self Edit Transcribed Date: 06/30/2024 [...] Signed Date: 06/30/2024 14:52 ET Workstation ID: [id number] Transcribed By: Self Edit Transcribed Date: 06/30/2024 14:50 ET Jaime Erickson MD IMG XR PROCEDURES Final Res ult * (ABNORMAL) CBC auto differential (06/30/2024 1:34 PM EDT) [facility] WBC 8.1 4.8 - 10.8 K/mcL LAB HEMETOLOGY METHOD 06/30/2024 2:43 PM EDT [facility] RBC 4.30 3.80 - 4.80 M/mcL LAB HEMETOLOGY METHOD 06/30/2024 2:43 PM EDT [facility] Hemoglobin 12.2 11.5 - 16.0 g/dL LAB HEMETOLOGY METHOD 06/30/2024 2:43 PM EDT [facility] Hematocrit 38.8 35.0 - 47.0 % LAB HEMETOLOGY METHOD 06/30/2024 2:43 PM EDT [facility] MCV 89.6 79.0 - 98.0 FL LAB HEMETOLOGY METHOD 06/30/2024 2:43 PM EDT [facility] MCH 28.2 27.0 - 32.0 pcg LAB HEMETOLOGY METHOD 06/30/2024 2:43 PM EDT [facility] MCHC 31.4(L) 32.0 - 37.0 g/dL LAB HEMETOLOGY METHOD 06/30/2024 2:43 PM [facility] RDW 14.5 11.0 - 15.0 % LAB HEMETOLOGY METHOD 06/30/2024 2:43 PM EDT [facility] Platelets 346 130 - 400 K/mcL LAB HEMETOLOGY METHOD 06/30/2024 2:43 PM EDT [facility] MPV 9.6 7.0 - 11.0 FL LAB HEMETOLOGY METHOD 06/30/2024 2:43 PM EDT [facility] NRBC 0.0 <1.0 % LAB HEMETOLOGY METHOD 06/30/2024 2:43 PM [facility] NRBC Absolute 0.00 <0.10 K/mcL LAB HEMETOLOGY METHOD 06/30/2024 2:43 PM [facility] Neutrophils Relative 91.9 % LAB HEMETOLOGY METHOD 06/30/2024 2:43 PM [facility] Lymphocytes Relative 5.1 % LAB HEMETOLOGY METHOD 06/30/2024 2:43 PM [facility] Monocytes Relative 1.4 % LAB HEMETOLOGY METHOD 06/30/2024 2:43 PM [facility] Eosinophils Relative 0.9 % LAB HEMETOLOGY METHOD 06/30/2024 2:43 PM [facility] Basophils Relative 0.2 % LAB HEMETOLOGY METHOD 06/30/2024 2:43 PM [facility] Immature Granulocytes Relative 0.5 % LAB HEMETOLOGY METHOD 06/30/2024 2:43 PM [facility] Neutrophils Absolute 7.44(H) 1.50 - 7.00 K/mcL LAB HEMETOLOGY METHOD 06/30/2024 2:43 PM [facility] Lymphocytes Absolute 0.41(L) 1.00 - 5.00 K/mcL LAB HEMETOLOGY METHOD 06/30/2024 2:43 PM [facility] Monocytes Absolute 0.11(L) 0.20 - 1.00 K/mcL LAB HEMETOLOGY METHOD 06/30/2024 2:43 PM [facility] Eosinophils Absolute 0.07 0.00 - 0.50 K/mcL LAB HEMETOLOGY METHOD 06/30/2024 2:43 PM [facility] Basophils Absolute 0.02 0.00 - 0.20 K/mcL LAB HEMETOLOGY METHOD 06/30/2024 2:43 PM [facility] Immature Granulocytes Absolute 0.04(H) 0.00 - 0.03 K/mcL LAB HEMETOLOGY METHOD 06/30/2024 2:43 PM EDT [facility] Blood Venous blood specimen / Unknown Venipuncture / Unknown 06/30/2024 1:34 PM EDT 06/30/2024 2:20 PM EDT Jaime Erickson MD LAB BLOOD ORDERABLES Final Result Performing Organization Address [facility]/ZIP Co de Phone Number [facility] [address] [place] [address], [place] [phone] * B-type natriuretic peptide (06/30/2024 1:34 PM EDT) BNP 25 <=100 pcg/mL LAB CHEMISTRY METHOD 06/30/2024 3:12 PM EDT [facility] Blood Venous blood specimen / Unknown Venipuncture / Unknown 06/30/2024 1:34 PM EDT 06/30/2024 2:20 PM EDT Jaime Erickson MD LAB BLOOD ORDERABLES Final Result Performing Organization Address [facility] de Phone Number [facility] [address] [place] [address], [place] [phone] * Magnesium (06/30/2024 1:34 PM EDT) Magnesium 2.0 1.9 - 2.6 mg/dL LAB CHEMISTRY METHOD 06/30/2024 3:09 PM EDT [facility] Blood Venous blood specimen / Unknown Venipuncture / Unknown 06/30/2024 1:34 PM EDT 06/30/2024 2:20 PM EDT Jaime Erickson MD LAB BLOOD ORDERABLES Final Result Performing Organization Address [facility]/ZIP Co de Phone Number [facility] [address] [place] [address], [place] [phone] * Lipase (06/30/2024 1:34 PM EDT) Pathologist [facility] Lipase 28 13 - 75 unit/L LAB CHEMISTRY METHOD 06/30/2024 3:09 PM EDT [facility] Blood Venous blood specimen / Unknown Venipuncture / Unknown 06/30/2024 1:34 PM EDT 06/30/2024 2:20 PM EDT Jaime Erickson MD LAB BLOOD ORDERABLES Final Result [facility] [address] [place] [address], [place] [phone] * (ABNORMAL) Comprehensive metabolic panel (06/30/2024 1:34 PM EDT) [facility] Sodium 137 133 - 145 mmol/L LAB CHEMISTRY METHOD 06/30/2024 3:09 PM [facility] Potassium 4.7 3.5 - 5.5 mmol/L LAB CHEMISTRY METHOD 06/30/2024 3:09 PM [facility] Chloride 105 96 - 110 mmol/L LAB CHEMISTRY METHOD 06/30/2024 3:09 PM [facility] CO2 26 21 - 32 mmol/L LAB CHEMISTRY METHOD 06/30/2024 3:09 PM [facility] Anion Gap 6 3 - 11 LAB CHEMISTRY METHOD 06/30/2024 3:09 PM [facility] Glucose 193(H) 70 - 100 mg/dL LAB CHEMISTRY METHOD 06/30/2024 3:09 PM [facility] BUN 15 5 - 25 mg/dL LAB CHEMISTRY METHOD 06/30/2024 3:09 PM [facility] Creatinine 0.76 0.50 - 1.10 mg/dL LAB CHEMISTRY METHOD 06/30/2024 3:09 PM [facility] eGFR 93 >=60 mL/min/1. 73m2 LAB CHEMISTRY METHOD 06/30/2024 3:09 PM [facility] Comment:Calculation based on the Chronic Kidney Disease Epidemiology Collaboration (CKD-EPI) equation refit without adjustment for race. BUN/Creatinine Ratio 19.7 LAB CHEMISTRY METHOD 06/30/2024 3:09 PM T [facility] Calcium 8.7 8.5 - 10.5 mg/dL LAB CHEMISTRY METHOD 06/30/2024 3:09 PM [facility] AST (SGOT) 15 10 - 42 unit/L LAB CHEMISTRY METHOD 06/30/2024 3:09 PM [facility] ALT (SGPT) 17 10 - 60 unit/L LAB CHEMISTRY METHOD 06/30/2024 3:09 PM [facility] Alkaline Phosphatase 49 42 - 121 unit/L LAB CHEMISTRY METHOD 06/30/2024 3:09 PM [facility] Total Protein 7.0 6.0 - 8.0 g/dL LAB CHEMISTRY METHOD 06/30/2024 3:09 PM [facility] Albumin 3.0(L) 3.2 - 5.0 g/dL LAB CHEMISTRY METHOD 06/30/2024 3:09 PM [facility] Total Bilirubin 0.4 0.0 - 1.4 mg/dL LAB CHEMISTRY METHOD 06/30/2024 3:09 PM [facility] Blood Venous blood specimen / Unknown Venipuncture / Unknown 06/30/2024 1:34 PM EDT 06/30/2024 2:20 PM EDT us Jaime Erickson MD LAB BLOOD ORDERABLES Final Result [facility] [address] [place] [address], [place] [phone] * ECG 12 lead (06/30/2024 1:27 PM EDT) Ventricular Rate ECG 96 BPM GEMUSE Atrial Rate 96 BPM GEMUSE P-R Interval 122 ms GEMUSE QRS Duration 68 ms GEMUSE Q-T Interval 354 ms GEMUSE QTc 447 ms GEMUSE P Wave [place] 70 degrees GEMUSE R [place] 10 degrees GEMUSE T [place] 18 degrees GEMUSE ECG Interpretation Normal sinus rhythm Low voltage QRS Abnormal ECG When compared with ECG of 14-APR-2024 00:41, No significant change was found Confirmed by KIMBERLY WARNER ([id number]) on 06/30/2024 6:19:44 PM GEMUSE 06/30/2024 1:27 PM EDT 06/30/2024 6:19 PM EDT us Jaime Erickson MD ECG ORDERABLES Final Resul t GEMUSE * [id number], RSV, Influenza A and B qualitative RT-PCR (06/30/2024 1:24 PM EDT) Pathologist [facility] Influenza A PCR Not Detected Not Detected LAB MICROBIOLOGY METHOD 06/30/2024 3:06 PM EDT [facility] Influenza B PCR Not Detected Not Detected LAB MICROBIOLOGY METHOD 06/30/2024 3:06 PM EDT [facility] RSV PCR Not Detected Not Detected LAB MICROBIOLOGY METHOD 06/30/2024 3:06 PM EDT [facility] SARS COV-2 Not Detected Not Detected LAB MICROBIOLOGY METHOD 06/30/2024 3:06 PM EDT [facility] Swab Nasopharyngeal structure / Unknown Non-blood Collection / Unknown 06/30/2024 1:24 PM EDT 06/30/2024 2:19 PM EDT Narrative [facility] - 06/30/2024 3:06 PM EDT Disclaimer: Testing was performed using the [employer] GeneXpert Xpress SARS-CoV-2 _Flu_RSV PLUS PCR assay. [...] for Healthcare providers can be found at https://www.fda.gov/media/667809/download. Fact sheet for Healthcare patients can be found at https://www.fda.gov/media/791941/download. us Jaime Erickson MD LAB MICROBIOLOGY - GENERAL ORDERABLES Final Result [facility] [address] [place] [address], * DIANE SCREENING DIGITAL (02/27/2018 5:16 PM EST) Anatomical Region Laterality Modality Mammography 02/24/2018 10:4 4 AM EST Narrative 02/27/2018 5:[address] [facility] Diagnostic Imaging Department [address] [place] [address] Patient: SCARLETT NEUMANN /Age/Sex: 1970 - 47 - F Unit#: [id number] Location/Status: SPDIMAM/REG CLI Mnemonic/Ordering Site: [facility] Ordering Physician: GABRIELA VILLEDA MD Diane Screening Digital - 02/27/18 - 0758 INDICATION: SCREENING COMPARISON: [facility] mammograms dating back to 08/05/2012 FINDINGS: CC and MLO views of the breasts were obtained, using full field digital mammography with 3D tomosynthesis views in the MLO projection. Computer aided detection with the [employer].2-H was employed. History of reduction mammoplasty in [...] a target date for the next mammogram. ([id number] / [id number]) , [id number] Dictating Physician: YONG WEATHERS MD Electronically Signed by: YONG WEATHERS MD Dic Date/Time: 02/27/181711 Sign date/Time: 02/27/181715 Procedure Note Yong Weathers MD - 02/18/2022 [facility] Diagnostic Imaging Department [address] [place] [id number] Patient: SCARLETT NEUMANN /Age/Sex: 1970 - 47 - F Unit#: [id number] Location/Status: SPDIMAM/REG CLI Mnemonic/Ordering Site: [facility] Ordering Physician: GABRIELA VILLEDA MD Diane Screening Digital - 02/27/18 - 0758 INDICATION: SCREENING COMPARISON: [facility] mammograms dating back to 08/05/2012 FINDINGS: CC and MLO views of the breasts were obtained, using full field digital mammography with 3D tomosynthesis views in the MLO projection. Computeraided detection with the [employer] 7.2-H was employed. History of reduction mammoplasty [...] a target date for the next mammogram. ([id number] / [id number]) , [id number] Dictating Physician: YONG WEATHERS MD Electronically Signed by: YONG WEATHERS MD Dic Date/Time: 02/27/18 171 Sign date/Time: 02/27/18 171 Gabriela Villeda MD IMG BI PROCEDURES Final R esult from Last 3 Months or Most Recently Relevant to Health Maintenance Insurance MEDICAID - [place] Care Teams Mental Health Counselor Relationship Specialty Start Date End Date Cristian Chacon [address], [place] PCP - General Internal Medicine 10/17/20
--- OUTSIDE RECORDS SUMMARY | 2024-09-30 15:34 | XMS_ITS | Clinical Summary ---
Author Organization [facility] Address [address] [place] [address] Care Team Providers Care Overlock Hemmer Name Role Phone Eduarda Villeda MD Primary Care Provider [phone] Medications No known medications Social History Tobacco [...] 08/07/2018, 12/14/2017, Additional history exists HPV Vaccine (No Doses Required) Completed Hep A Aged Out No longer eligi ble based on patient's age to complete this topic Hib Aged Out No longer eligi ble based on patient's age to complete this topic Meningococcal ACWY Aged Out No longer eligible based on patient's age to complete this topic Insurance MEDICAID Care Teams Overlock Hemmer Relationship Specialty Start Date End Date Eduarda Villeda MD [address] [address] PCP - General Internal Medicine 05/12/18
--- OUTSIDE RECORDS SUMMARY | 2024-09-30 15:34 | XMS_ITS | Encounter Summary ---
Author Organization [employer] Address [address] [facility] [address] [place] [address] Care Team Providers Care Turning Lathe Tender Name Role Phone Cristian Chacon MD Primary Care Prov ider Encounter Details Date Type Department Care Team ([facility] Contact Info) Description 06/30/2024 Orders Only [facility] [address], [place] [phone] Provider, MD Roderick Social History Tobacco Use [...] the past 12 months, has t he [employer], [employer], oil or water [employer] threatened to shut off services in your [...] Care Team (Late st Contact Info) Description 10/13/2024 1:45 PM EDT Telemedicine [facility] [address], [place] [phone] Cristian Chacon MD [address] [place], [place] [phone] documented as of this encounter Procedures Procedure [...] documented as of this encounter Care Teams Turning Lathe Tender Relationship Specialty Start Date End Date Cristian Chacon MD [address] [place], [place] [phone] PCP - General Internal Medicine 03/17/19 Ivy Payne [employer] Machine OperatorBody Man 11/26/23 documented as of this encounter
--- OUTSIDE RECORDS SUMMARY | 2024-09-30 15:34 | XMS_ITS | Clinical Summary ---
Author Organization [facility] Address [address] [place] [address] Care Team Providers Care Forestry Worker Name Role Phone Dirk Mcdowell RD Primary Care Provider [phone] Source Comments PLEASE NOTE, if this patient [...] /3 mL (0.083 %) nebulizer solution Per culinary specialist 0 5 Active FLOVENT HFA 220 mcg/actuation inhaler Per culinary specialist 3 5 Active fluticasone (FLONASE) 50 mcg/actuation nasal spray Per culinary specialist 3 5 Active hydrOXYzine (ATARAX) 25 mg tablet Per culinary specialist 0 5 Active montelukast (SINGULAIR) 10 mg tablet Per culinary specialist 3 5 Active terbinafine HCl (LAMISIL) 250 mg tablet Per culinary specialist 1 5 Active ketoconazole (NIZORAL) 2 % cream Per culinary specialist 3 5 Active metroNIDAZOLE (METROCREAM) 0.75 % cream Per culinary specialist 3 5 Active traZODone (DESYREL) 50 mg tablet Per Psych 4 5 Active traMADol (ULTRAM) 50 mg tablet Per [facility] 0 5 Active cromolyn (OPTICROM) 4 % ophthalmic solution Per culinary specialist 3 5 Active baclofen (LIORESAL) 10 [...] Date Diagnosed Date H/O mammogram 3 at [facility]. Normal. due Gavino h 201505/12/2014 Left ovarian cyst 07/14/2013 Overview (07/14/2013): S/P US PELVIS 07/04/13 DUE PELVIC PAIN. 2.9 X 3.8 X 3 CM LEFT ADNEXAL CYSTIC LESION, MOST LIKELY HEMORRHAGIC OVARIAN CYST. F/U DIRECTOR SOFTWARE Left carpal tunnel syndrome 06/22/2013 Vitamin D deficiency disease 02/03/2012 Overview (02/01/2013): =17. Allergic rhinitis due to allergen 2008 GERD (gastroesophageal reflux disease) 8 Hypothyroidism 05/13/2007 Overview (09/29/2013): + CARLOS EDUARDO'S THYROIDITIS, ENDO F/U with Dr Mcdowell Anxiety and depression 05/13/2007 Overview (02/01/2013): F/U [facility] (DR. NANCE). Insomnia 05/13/2007 Overview (02/01/2013): F/U AT [facility] (DR. NANCE). Mild persistent asthma ([facility]) 05/13/2007 Chronic neck pain LBP (low back [...] 06/19/2022, 0 11/24/2014, 11/24/2014, Additional history exists [id number]-14 ( season) 2023 03/22/2021, 07/22/2020, 07/01/2020 Alcohol [...] TSH CASCADE 2.25 0.40 - 4.00 uIU/ml [facility] Blood specimen (specimen) Blood / Unknown 03/06/2015 11:48 AM EST 03/06/2015 11:50 AM EST Narrative [facility] - 03/07/2015 1:30 PM EST [employer] [address] [place] [address] PT ID [id number] ORD# [id number] Sophia Blue MD LAB - BLOOD RICH W Final Result Performing Organization Address City/[facility]/ZIP Co de Phone Number [facility] [address] [place] [address], [place] [phone] * (ABNORMAL) LIPID PANEL (11/24/2014 11:00 AM EDT) CHOLESTEROL 166 0 - 200 mg/dL [facility] TRIGLYCERIDES 86 0 - 150 mg/dL [facility] HDL CHOLESTEROL 46 >40 mg/dL [facility] LDL CALCULATED 103(H) 0 - 100 mg/dL [facility] TC-HDLC RATIO 3.6 0 - 4.4 mg/dL [facility] Blood specimen (specimen) Blood / Unknown 11/24/2014 11:00 AM EDT 11/24/2014 11:06 AM EDT Narrative [facility] - 11/24/2014 12:35 PM EDT [facility] [employer] [address] [place] [address] PT ID [id number] ORD# [id number] Sophia Blue MD LAB - BLOOD RICH W Final Result Performing Organization Address City/[facility]/ZIP Co de Phone Number [facility] [address] [place] [address], [place] [phone] * COMPRE METAB PANEL (11/24/2014 11:00 AM EDT) GLUCOSE 88 70 - 100 mg/dL [facility] Comment:Reference range appl icable to fasting specimens only BUN 22 5 - 25 mg/dL [facility] CREAT 0.67 0.5 - 1.1 mg/dL [facility] GLOMERULAR FILTRATION RATE > 60 [facility] Comment: If patient is -Vincentian, multiply result by 1.21 Chronic Kidney Disease: < 60 ml/min/1.73 square meters Kidney Failure: < 15 ml/min/1.73 square meters SODIUM 140 133 - 145 mEq/L [facility] POTASSIUM 4.6 3.5 - 5.5 mEq/L [facility] CHLORIDE 105 96 - 110 mEq/L [facility] CO2 30 21 - 32 mEq/L [facility] ANION GAP 5 3 - 11 [facility] CALCIUM 9.6 8.5 - 10.5 mg/dL [facility] TOTAL PROTEIN 7.5 6.0 - 8.0 G/dL [facility] ALBUMIN 4.5 3.2 - 5.0 G/dL [facility] BILI, TOTAL 0.4 0.0 - 1.4 mg/dL [facility] SGOT 22 10 - 42 U/L [facility] SGPT 18 10 - 60 U/L [facility] ALK PHOS 74 42 - 121 U/L [facility] Blood specimen (specimen) Blood / Unknown 11/24/2014 11:00 AM EDT 11/24/2014 11:06 AM EDT Narrative [facility] - 11/24/2014 12:35 PM EDT [facility] [employer] [address] [place] [address] PT ID [id number] ORD# [id number] us Sophia Blue MD LAB - BLOOD DRA De Jesus Final Result [address] [address], * HEPATITIS A,B,C PANEL (09/29/2013 3:21 PM EDT) HEPATITIS B SURFACE ANTIBODY NEGATIVE NEGATIVE [facility] HEPATITIS B SURFACE ANTIGEN NEGATIVE NEGATIVE [facility] HEPATITIS C VIRUS ANTIBODY NEGATIVE NEGATIVE [facility] HEPATITIS A ANTIBODY TOTAL NEGATIVE NEGATIVE [facility] HEPATITIS B CORE ANTIBODY NEGATIVE NEGATIVE [facility] Blood specimen (specimen) Blood / Unknown 09/29/2013 3:21 PM EDT 09/29/2013 4:24 PM EDT - 09/29/2013 9:50 PM EDT [employer] [address] [place] [address] PT ID [id number] ORD# [id number] Sophia Blue MD LAB - BLOOD DRA De Jesus Edited Result - Final [facility] [address] [place] [address], [place] [phone] * HIV-1 & HIV-2 ANTIBODIES (09/29/2013 3:21 PM EDT) [facility] HIV 1 AND 2 ANTIBODY SCREEN NEGATIVE NEGATIVE [facility] Blood specimen (specimen) Blood / Unknown 09/29/2013 3:21 PM EDT 09/29/2013 4:24 PM EDT - 09/30/2013 12:03 PM EDT [employer] [address] [place] [address] PT ID [id number] ORD# [id number] Sophia Blue MD LAB - BLOOD DRA De Jesus Final Result [facility] [address] [place] [address], [place] [phone] from Last 3 Months or Most Recently Relevant to Health Maintenance Insurance [id number] Care Teams Forestry Worker Relationship Specialty Start Date End Date Dirk Mcdowell RD [address] [place] [address] PCP - General Nutrition 08/02/15
--- OUTSIDE RECORDS SUMMARY | 2024-09-30 15:34 | XMS_ITS | Encounter Summary ---
Author Organization [facility] Address [address] [place] [address] Phone Care Team Providers Care Dural Mechanic Name Role Phone Susan Vogt MD Primary Care Provider [phone] Cristian Chacon MD Primary Care Prov ider Reason for Visit * Reason Comments Medication Refill Encounter Details Date Type Department Care Team (Late st Contact Info) Description 07/16/2020 Refill [facility] [address] [place] [address] Musa Mcdowell DO [address] [place] [address] [email or web address] Medication Refill Social History Tobacco Use Types Packs/Day Years Used Date Smoking Tobacco: Never Smokeless Tobacco: Never Alcohol Use Standard Drinks/Week Comments Not Currently 0 (1 standard drink = 0.6 oz pur e alcohol) Comments Unknown Sex and Gender Information Value Date Recorded Sex Assigned at Not on file Legal Sex Female 6:19 PM EST Gender Identity Not on file Sexual Orientation Not on file documented as of this encounter Plan of Treatment Upcoming Encounters Date Type Department Care Team (Late st Contact Info) Description 10/04/2024 1:00 PM EDT Office Visit [facility] [address] [place] [address] Musa Mcdowell DO [address] [place] [address] 02/13/2025 8:30 AM EST Office Visit [facility] [address] [place] [address] Musa Mcdowell DO [address] [place] [address] documented as of this encounter Visit Diagnoses Diagnosis 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 It is not the complete legal health record.[facility]
--- NOTE | 2024-09-30 15:47 | A.OFFVIS_ITS ---
Vital Signs 09/30/24 15:59 Height 5 ft Weight 197 lb BMI 38.5 BP 119/88 Blood Pressure Location Rt radial Position Sitting Pulse 84 Intake Visit Reasons: s/p EGD Intake Note: Patient in office today in follow up s/p EGD. Research Microbiologist Required: Yes Accompanied by: Grand Child Allergies duloxetine (From CYMBALTA) Allergy (Unknown, Verified 09/30/24 16:14) UNKNOWN pregabalin (From LYRICA) Allergy (Unknown, Verified 09/30/24 16:14) UNKNOWN meperidine (From DEMEROL) Adverse Reaction (Intermediate, Verified 09/30/24 16:14) N/V oxycodone (From Percocet) Adverse Reaction (Intermediate, Verified 09/30/24 16:14) itching HPI HPI s/p EGD: Details: Assessment & Plan (1) GERD (gastroesophageal reflux disease): Code(s): K21.9 - Gastro-esophageal reflux disease without esophagitis Category: Medical (2) Dysphagia: Comment: Improved with dilation after EGD aeb Code(s): R13.10 - Dysphagia, unspecified Category: Medical (3) Erosive gastritis: Code(s): K29.60 - Other gastritis without bleeding Category: Medical (4) Constipation: Code(s): K59.00 - Constipation, unspecified Category: Medical (5) Candidiasis of mouth and esophagus: Code(s): B37.81 - Candidal esophagitis; B37.0 - Candidal stomatitis Category: Medical Plan Salvadorean #Antwon Live She is doing better on the omeprazole bid that she did with the generic Nexium. However, she is having dysphagia again that responded well to dilation. We will again schedule this. She is having worse trouble with bloating and her bowels. Her stools are quite hard, and when she does not move them she has severe cramping across the lover abd, and it seems to radiate up to the entire abd. Her GERD is also worse. She does feel better when she moves her bowels, but she has had a severely exaggerated response to OTC CIC medications in the past. Particularly, bisacodyl. She feels that the bentyl at 10mg is not working for her cramping as well. We will increase it ti 20mg qid. Start trial of Linzess 72mcg cautiously titrating. Since GES was normal will stop reglan. She is c/o her tongue getting a white coating and swelling, she says she has been trying to find out if it is an allergy to medicines, but she is on chronic prednisone sot his is most likely roberto (which also could be causing her dysphagia). Will treat with 14 day of diflucan. She will be starting a GLP-1 soon. ROV 5 weeks. Orders: Orders EGD - GI Use Only Today R13.10 - Dysphagia, unspecified Medications: New linaclotide (Linzess) 72 mcg PO QAM 30 caps 3RF K59.00 - Constipation, unspecified dicyclomine 20 mg PO QID 120 tabs 1RF 30 days fluconazole (Diflucan) 100 mg PO DAILY 14 tabs 0RF 14 days B37.0 - Candidal stomatitis, B37.81 - Candidal esophagitis Discontinued dicyclomine Discontinued Reason: Doctor's Order 10 mg PO TID 90 caps 6RF K22.4 - Dyskinesia of esophagus metoclopramide HCl (Reglan) Discontinued Reason: Doctor's Order 5 mg PO QID 120 tabs 6RF R11.2 - Nausea with vomiting, unspecified EGD 09/15/24 Findings: Larynx:normal Esophagus: GE junction at 38 cm, diaphragm hiatus at 38 cm, mild esophagitis, balloon dilation of LES to 20 mm and 20 mm at UES Stomach: mild area of inudration in pre pyloric area, prior ulcer also fully healed . Biopsies were obtained. Grade 2 flap valve on retroflexed examination of the cardia. pylorus was tight and dilated w ith balloon to 20 mm with some heme noted. Duodenum: Normal bulb and descending duodenum, Intervention: Biopsies as noted above, balloon dilation Impression/Findings: gastritis mild esophagitis PLAN: cont with PPI if h pylori pos then treat GERD precautions repeat EGD in 3-6 months to check for ulcer resolution BIOPSY 09/15/24 Diagnosis Stomach, biopsy: Gastric antral mucosa with mild reactive gastropathy; negative for Helicobacter pylori, intestinal metaplasia and dysplasia TODAYS VISIT Salvadorean #V Live Her current GI regimen consists of Linzess and dicyclomine. She has a new sx of a pain that starts low in her abd and then goes up to her chest and seems to cause her wheezing. She says this is new, but it seems the same as she reported to me at her last visit. She completed the diflucan, but she felt ill the last 4 days. She still c/o a sour tongue the is intermittent. She did not use the LInzess because she started moving her bowels and has not needed it. Her biggest complaint today is her tongue, but since it does not seem to be roberto I am at a loss. It could be a medication s/e. I suggest that she see a dentist as they are usually good at diagnosing these things. Apparently, she also has a broken tooth that needs a root canal and she refuses to see a dentist. She request a referral to ENT and will go to [facility]. [facility] 6 mos. [facility] Medical History Erosive esophagitis Pre-op examination Chronic idiopathic constipation Colon cancer screening Hemifacial spasm Abdominal pain Pelvic pain in female Bilateral shoulder pain Vulvar irritation WISE (nonalcoholic steatohepatitis) Elevated antinuclear antibody (FELI) level FELI positive Encounter to discuss test results Hemifacial spasm of left side of face Peptic ulcer disease Esophageal spasm Family history of cerebral aneurysm Fibromyalgia Irritable bowel syndrome with both constipation and diarrhea History of meningitis Surgical History History of esophagogastroduodenoscopy (EGD) Keloid of skin H/O neck surgery Hx of section Hx of hysterectomy Hx of breast lump removal (~2019) History of bladder suspension procedure H/O bilateral breast reduction surgery Family History Mother Aneurysm Endometrial cancer Father No problems noted. Social History Alcohol intake: never Comment: medicated Patient Tobacco Use Status: Never used Tobacco Second Hand Smoke Exposure: No Sexual orientation: Straight/Heterosexual Gender identity: Female Review of Systems Const Denies fatigue, Denies fever(s), Denies night sweats, Denies poor appetite and Denies weight loss ENT Details: sore tongue Reports Normal hearing present, Denies dental pain, Denies dysphagia, Denies hearing loss, Denies mouth pain, Denies odynophagia, Denies throat swelling, Denies tongue swelling and Reports other (Dentition adequate) Card Reports no additional complaints Resp Reports no additional complaints GI Details: Reports abdominal pain, Denies melena, Denies bloating, Denies hematochezia, Denies constipation, Denies GI cramping, Denies dysphagia, Denies excessive flatus, Denies early satiety, Reports heartburn, Denies diarrhea, Denies nausea, Denies odynophagia, Denies vomiting and Denies hematemesis Skin/Breast Denies pruritus, Denies lesions, Denies rash and Denies jaundice Neuro Reports Normal hearing present and Denies Abnormal speech present Endo Denies fatigue Aller/Immun Denies throat swelling and Denies tongue swelling Physical Exam Vital Signs: Last Vital Signs Pulse 84 09/30/24 15:59 BP 119/88 09/30/24 15:59 BMI result Body Mass Index 38.5 Const General: cooperative, no acute distress, well developed and well groomed Nutritional Appearance: well nourished and obese Orientation/consciousness: oriented to person, oriented to place and oriented to time Limitations: language barrier HEENT Head: Yes normocephalic and Yes atraumatic Mouth: Normal oral and palatal mucosa present and tongue normal Eyes General: appearance normal, both eyes and all related structures Pupils: Equal, round and reactive pupils present Neck Neck: Yes normal visual inspection and Yes no lymphadenopathy Thyroid: Thyroid normal Resp Effort & Inspection: normal respiratory effort and able to speak in complete sentences Auscultation: clear to auscultation bilaterally Cardio Rate: regular rate Rhythm: regular rhythm Heart sounds: Normal, physiologic split S2 sound present Peripheral pulses: radial pulses present and posterior tibial pulses present GI Inspection: No distended, Yes Abdominal panniculus present and Yes obesity Palpation (GI): Soft to palpation, nontender, no guarding, not rigid and No hepatosplenomegaly present Percussion: Yes normal to percussion Auscultation: normal bowel sounds Rectal Exam - Female: deferred Skin General skin exam: no rashes or lesions noted, turgor normal, skin not dry, no jaundice, No spider nevi and no striae Rashes: no rashes Nails: normal Neuro General: oriented to person, oriented to place and oriented to time Cranial nerves: Yes Equal, round and reactive pupils present and Yes Normal hearing present Speech: No Abnormal speech present Extrem General: Yes normal to inspection, No clubbing, No cyanosis and No edema Psych Appearance: grossly normal and well kempt Mental Status: mental status grossly normal Speech and movement: Normal speech and movement present Affect: normal affect Attitude: cooperative Thought process: not confabulating and Tangential thought process present Thought content: Normal thought content present Insight: Limited insight present (Psych) Judgement: Limited judgement present (Psych) Results Reviewed Results Reviewed: EGD 09/15/24 Findings: Larynx:normal Esophagus: GE junction at 38 cm, diaphragm hiatus at 38 cm, mild esophagitis, balloon dilation of LES to 20 mm and 20 mm at UES Stomach: mild area of inudration in pre pyloric area, prior ulcer also fully healed . Biopsies were obtained. Grade 2 flap valve on retroflexed examination of the cardia. pylorus was tight and dilated with balloon to 20 mm with some heme noted. Duodenum: Normal bulb and descending duodenum, Intervention: Biopsies as noted above, balloon dilation Impression/Findings: gastritis mild esophagitis PLAN: cont with PPI if h pylori pos then treat GERD precautions repeat EGD in 3-6 months to check for ulcer resolution BIOPSY 09/15/24 Diagnosis Stomach, biopsy: Gastric antral mucosa with mild reactive gastropathy; negative for Helicobacter pylori, intestinal metaplasia and dysplasia Assessment & Plan Assessment & Plan (1) Soreness of tongue: Code(s): K14.6 - Glossodynia Category: Medical (2) GERD (gastroesophageal reflux disease): Code(s): K21.9 - Gastro-esophageal reflux disease without esophagitis Category: Medical (3) Chronic gastric ulcer: Code(s): K25.7 - Chronic gastric ulcer without hemorrhage or perforation Category: Medical (4) Abdominal pain: Code(s): R10.9 - Unspecified abdominal pain Category: Medical (5) Constipation: Code(s): K59.00 - Constipation, unspecified Category: Medical Plan Salvadorean #V Live Her current GI regimen consists of omeprazole 40 mg twice a day, Linzess and dicyclomine. She has a new sx of a pain that starts low in her abd and then goes up to her chest and seems to cause her wheezing. She says this is new, but it seems the same as she reported to me at her last visit. This sounds like it might be gas, there is no real good explanation for this on her EGD. Her prior ulcer seems to have completely healed and there was only 1 area of very mild induration. She completed the diflucan, but she felt ill the last 4 days. She still c/o a sour tongue the is intermittent. She did not use the LInzess because she started moving her bowels and has not needed it. Her biggest complaint today is her tongue, but since it does not seem to be roberto I am at a loss. It could be a medication s/e. I suggest that she see a dentist as they are usually good at diagnosing these things. Apparently, she also has a broken tooth that needs a root canal and she refuses to see a dentist. She request a referral to ENT and will go to [facility] 6 mos. Orders: Referrals Ear/Nose/Throat Referral K14.6 - Glossodynia Coding Level of Care Code Est Pt Level 3 (78297) Diagnoses Soreness of tongue K14.6 GERD (gastroesophageal reflux disease) K21.9 Chronic gastric ulcer K25.7 Abdominal pain R10.9 Constipation K59.00
[2024-09-30 15:59] VITALS: BP 119/88; PULSE 84; BMI 38.5
== END 2024-09-30 18:05 | disposition home or self-care (01) ==
LOC: HO.HGI 15:32
PROVIDERS: PCP Family Medicine; Visit Provider Nurse Practitioner
DX: K14.6 Glossodynia (principal); K21.9 Gastro-esophageal reflux disease without esophagitis; K25.7 Chronic gastric ulcer without hemorrhage or perforation; R10.9 Unspecified abdominal pain; K59.00 Constipation, unspecified
CPT/HCPCS: 99213

== ENCOUNTER → 2024-09-30 15:31 | Outpatient (BNVA) | payer MEDICAID, SELFPAY | PROVIDERS: PCP Family Medicine; Visit Provider Nurse Practitioner | DX: K21.9 Gastro-esophageal reflux disease without esophagitis (principal); R13.10 Dysphagia, unspecified; K29.60 Other gastritis without bleeding; K59.00 Constipation, unspecified; B37.81 Candidal esophagitis; B37.0 Candidal stomatitis | CPT/HCPCS: 99212 ==

== ENCOUNTER 2024-12-01 09:14 | Outpatient (AMB) | payer MEDICAID, SELFPAY ==
[2024-12-01 09:25] VITALS: BP 120/70; PULSE 80; O2SAT 97; BMI 37.3
--- NOTE | 2024-12-01 09:25 | A.OFFVIS_ITS ---
Vital Signs 12/01/24 09:25 Height 5 ft Weight 191 lb BMI 37.3 BP 120/70 Blood Pressure Location Rt brachial Pulse 80 Pulse Source Pulse Oximeter Pulse Oximetry (%) 97 Oxygen Delivery Method Room Air Intake Visit Reasons: 6 mo follow up Intake Note: Patient presents follow up Migraine Fermentation Engineer Required: No Fermentation Engineer Services: Fermentation Engineer Offered & Declined Accompanied by: Self / Same As Patient Allergies duloxetine (From CYMBALTA) Allergy (Unknown, Verified 12/01/24 09:29) UNKNOWN pregabalin (From LYRICA) Allergy (Unknown, Verified 12/01/24 09:29) UNKNOWN meperidine (From DEMEROL) Adverse Reaction (Intermediate, Verified 12/01/24 09:29) N/V oxycodone (From Percocet) Adverse Reaction (Intermediate, Verified 12/01/24 09:29) itching Medication List - Last Reconciled 12/04/24 by CHRIST Shannon albuterol sulfate 90 mcg/actuation 2 puffs inhalation Q6H PRN dicyclomine 20 mg PO QID 30 days dulaglutide (Trulicity) 0.75 mg subcut QWEEK fluticasone propion-salmeterol 230-21 mcg/actuation (Advair HFA) 2 puffs inhalation BID fluticasone propionate 50 mcg/actuation 1 inh inhalation BID linaclotide (Linzess) 72 mcg PO QAM loratadine 10 mg PO DAILY lorazepam 2 mg PO BEDTIME PRN losartan 25 mg PO QAM montelukast (Singulair) 10 mg PO BEDTIME omeprazole 40 mg PO BID 30 days prednisone 5 mg PO BID sertraline 50 mg PO BEDTIME sumatriptan succinate 50 - 100 mg orally at onset of headache, may repeat in 2 hrs PRN; max 2 tabs per day or 4 tabs/week (may take with Ibuprofen) 30 days tizanidine 2 mg PO Q6H PRN zolpidem 10 mg PO BEDTIME PRN HPI Comments Details: 53-year-old female presenting with headache, migraine, and left hemifascial spasm. Patient underwent a left eye procedure by [facility] about 3 months ago, and will undergo a right eye repair. She states she was also told she has right lower chest wall pain, difficulty breathing deeply, and severe hiccups felt up into her trachea, and states she was told she has liquid and spots in the right lung per work-up by her resistor inspector, Alonzo Persaud MD, [facility] in [place] and her cementer at [facility]. She experiences low grade headache approximately every three days. When she has a headache she has a bothersome pressure in the eye, forehead, and a strange pain running across the forehead. She currently uses Tylenol or Naproxen as needed with good effect for low grade headache. Has not recently used Sumatriptan as she has not had a migraine recently. Left hemifascial spasm well-controlled, but can start to feel bruxism, crepitus, and left masseter tightness, especially as the botox wears off, She lost her back 2 right lower molars. They just fell out. She endorses personal stress as her was dx'd with pancreatic cancer last year and is being tx'd in [place]. [facility] Medical History Erosive esophagitis Pre-op examination Chronic idiopathic constipation Colon cancer screening Hemifacial spasm Abdominal pain Pelvic pain in female Bilateral shoulder pain Vulvar irritation WISE (nonalcoholic steatohepatitis) Elevated antinuclear antibody (FELI) level FELI positive Encounter to discuss test results Hemifacial spasm of left side of face Peptic ulcer disease Esophageal spasm Family history of cerebral aneurysm Fibromyalgia Irritable bowel syndrome with both constipation and diarrhea History of meningitis Surgical History History of esophagogastroduodenoscopy (EGD) Keloid of skin H/O neck surgery Hx of section Hx of hysterectomy Hx of breast lump removal (~2019) History of bladder suspension procedure H/O bilateral breast reduction surgery Family History Mother Aneurysm Endometrial cancer Father No problems noted. Social History Alcohol intake: never Comment: medicated Patient Tobacco Use Status: Never used Tobacco Second Hand Smoke Exposure: No Sexual orientation: Straight/Heterosexual Gender identity: Female Physical Exam Vital Signs: Last Vital Signs Pulse 80 12/01/24 09:25 BP 120/70 12/01/24 09:25 Pulse Ox 97 12/01/24 09:25 Oxygen Delivery Method Room Air 12/01/24 09:25 BMI result Body Mass Index 37.3 Const General: cooperative and no acute distress Orientation/consciousness: patient oriented x3 Resp Effort & Inspection: normal respiratory effort and able to speak in complete sentences Neuro Other: Left hemifascial spasm General: patient oriented x3 and moves all extremities Cognition (Neuro): normal cognition Gait exam (Neuro): Normal gait present Psych Appearance: grossly normal Mental Status: mental status grossly normal Speech and movement: Normal speech and movement present Affect: normal affect Attitude: cooperative Assessment & Plan Assessment & Plan (1) Migraine without aura: Code(s): G43.009 - Migraine without aura, not intractable, without status migrainosus Category: Medical Qualifiers: Status migrainosus presence: without status migrainosus Intractability: not intractable Qualified Code(s): G43.009 - Migraine without aura, not intractable, without status migrainosus (2) Hemifacial spasm of left side of face: Code(s): G51.32 - Clonic hemifacial spasm, left Category: Medical (3) Cerebral palsy: Code(s): G80.9 - Cerebral palsy, unspecified Category: Medical Qualifiers: Cerebral palsy type: unspecified type Qualified Code(s): G80.9 - Cerebral palsy, unspecified Plan For Migraine: Riboflavin and Magnesium. May continue Tylenol or Naproxen as needed- use NSAIDs sparingly. Hold Sumatriptan 50-100mg order until cleared by Cardiology. ? For left hemifascial spasm- Advised to discuss trying a custom mouth guard to minimize risk for biting the sides of her tongue and breaking additional teeth. Continue Botox as scheduled, as pt is having good clinical effect from use. ? f/u in 6 months or sooner prn. Medications: Refilled riboflavin (vitamin B2) qam 400 mg PO DAILY 30 tabs 11RF 30 days magnesium oxide 400 mg PO DAILY 30 tabs 11RF 30 days Coding Level of Care Code Est Pt Level 4 (78918) Diagnoses Migraine without aura and without status migrainosus, not intractable G43.009 Status migrainosus presence: without status migrainosus Intractability: not intractable Hemifacial spasm of left side of face G51.32 Cerebral palsy, unspecified type G80.9 Cerebral palsy type: unspecified type
--- OUTSIDE RECORDS SUMMARY | 2024-12-01 10:04 | XMS_ITS | Encounter Summary ---
Author Organization [employer] Address [address] [place] [address] Care Team Providers Care Size Cutter Name Role Phone Cristian Chacon MD Primary Care Prov ider Encounter Details Date Type Department Care Team ([facility] Contact Info) Description 06/30/2024 Orders Only [facility] [address] [place], [place] [id number] Provider, MD Roderick Social History Tobacco Use [...] the past 12 months, has t he SDI, [place], oil or water [employer] threatened to shut off services in your [...] documented as of this encounter Care Teams Size Cutter Relationship Specialty Start Date End Date Cristian Chacon MD [address] [place] [id number] PCP - General Internal Medicine 03/17/19 Ivy Payne Balance Screwhead PolisherPattern Data Operator 11/26/23 documented as of this encounter
--- OUTSIDE RECORDS SUMMARY | 2024-12-01 10:04 | XMS_ITS | Encounter Summary ---
Author Organization [facility] Address [address] [place] [phone] Phone Care Team Providers Care President [employer] Name Role Phone Susan Vogt MD Primary Care Provider + [phone] Cristian Chacon MD Primary Care Prov ider Reason for Visit * Reason Comments Medication Refill Encounter Details Date Type Department Care Team (Late st Contact Info) Description 07/16/2020 Refill [facility] [address] [place] [address] Musa Mcdowell DO [address] [place] [address] [email or web address] Medication Refill Social History Tobacco Use Types [...] Care Team (Late st Contact Info) Description 01/25/2025 11:10 AM EST Office Visit [facility] [address] [place] [address] Musa Mcdowell DO [address] [place] [address] 02/13/2025 8:30 AM EST Office Visit [facility] [address] [place] [address] Musa Mcdowell DO [address] [place] [address] 03/14/2025 10:00 AM EST Office Visit [facility] [address] [place] [address] Blayne Kam MD [address] [place] [address] documented as of this encounter Visit Diagnoses Diagnosis 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 It is not the complete legal health record.[facility]
--- OUTSIDE RECORDS SUMMARY | 2024-12-01 10:05 | XMS_ITS | Clinical Summary ---
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 complete legal health record.[facility]
--- OUTSIDE RECORDS SUMMARY | 2024-12-01 10:05 | XMS_ITS | Clinical Summary ---
Author Organization [facility] Address [address] [place] [address] Care Team Providers Care Supervisor Sample Name Role Phone Cristian Chacon MD Primary [...] a day. 60 tablet 2 5 Active mycophenolate (CELLCEPT) 500 mg tablet TOME ОЛЕГ TABLETA DIARIAMENTE 30 tablet 1 5 Active Active Problems Problem Noted Date [...] LESION, MOST LIKELY HEMORRHAGIC OVARIAN CYST. 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 2.9 X 3.8 X 3 CM LEFT ADNEXAL CYSTIC LESION, MOST LIKELY HEMORRHAGIC OVARIAN CYST. 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 NANCE). F/U [facility] (DR. NANCE). Hypothyroidism 05/13/2007 Overview (08/16/2024): [...] [place]cdowell Insomnia 05/13/2007 Overview (08/16/2024): F/U AT [facility] (DR. NANCE). F/U AT [facility] (DR. NANCE). Encounters Date Type Department Care Team Description 11/09/2024 Orders Only [facility] [address] [place] [address] Nursing Clerk: Juan Ramon Vallejo, Dennis Whitlock MD Shortness of breath (Primary Dx) 10/25/2024 Results Follow-Up [facility] [address] [place] [address] Nursing Clerk: Alonzo Caputo MD 10/11/2024 8:27 AM EDT - 10/11/2024 11:59 PM EDT Hospital Encounter [facility] [address] [place] [address] Dennis Vallejo MD Shortness of breath Discharge Disposition: Home or Self Care () 09/21/2024 11:40 AM EDT Follow-Up [facility] [address] [place] [address] Nursing Clerk: Alonzo Baez MD Systemic lupus erythematosus with other organ involvement, unspecified SLE type (HCC) (Primary Dx); Moderate persistent asthma, unspecified whether complicated (HCC); Abnormal pulmonary function test 09/20/2024 Refill [facility] [address] [place] [address] Nursing Clerk: Alonzo Baez MD 09/06/2024 3:20 PM EDT Follow-Up [facility] [address] [place] [address] Nursing Clerk: Dennis Laguna MD Shortness of breath (Primary Dx); Allergic rhinitis due to other allergic trigger, unspecified seasonality 09/06/2024 1:30 PM EDT - 09/06/2024 11:59 PM EDT Hospital Encounter [facility] Pulmonary Function Lab [address] [place] [address] Dennis Vallejo MD Shortness of breath Discharge Disposition: Home or Self Care () from Last 3 Months Immunizations Immunization Administration [...] Care Team (Late st Contact Info) Description 12/05/2024 10:40 AM EDT Follow-Up [facility] [address] [place] [address] Nursing Clerk: Alonzo Baez MD [address] [place] [address] 12/06/2024 1:00 PM EDT Follow-Up [facility] [address] [place] [address] Nursing Clerk: Dennis Laguna MD [address] [place] [address] 12/06/2024 1:30 PM EDT Follow-Up [facility] [address] [place] [address] Nursing Clerk: Morales Ramsey MD [address] [place] [address] Health Maintenance Due Date Last Done Comments [...] (2 - Td or Tdap) 10/14/2020 10/14/2010 Alcohol/Substance Use Screening 03/02/2024 Depression Screening and Follow-Up 03/02/2024 Social Drivers of Health Giselle ual Screening 03/02/2024 Mammogram 05/20/2024 05/20/2022, 032 03/2022, 05/20/2022, Additional history exists COVID-19 Vaccine (5 - 2024-2 6 season) 2024 01/04/2022, 03/22/2021, 07/22/2020, Additional history exists Influenza Vaccine (#1) 2024 , 12/11/2022, 01/04/2022, Additional history exists Hemoglobin A1C 04/02/2025 09/30/2024, 07/2 09/2024, 05/30/2024, Additional history exists Basic Metabolic Panel 09/15/2025 09/15/2024 , 07/20/2024, 06/30/2024, Additional history exists Colon Cancer Screening 09/30/2025 FOBT / Fit Test 09/30/2025 09/30/2024, 11/18/2023 Urine Microalbumin 09/30/2025 09/30/2024, 0 09/30/2024, 04/20/2024, Additional history exists RSV Vaccine (60+ years old a nd patients) (1 - 1-dose 75+ series) 07/20/2043 HIV Screening Completed 09/29/2013 Hepatitis C Screening Completed 06/04/2022 Procedures * Due to [place] Mix[employer] law, this organization might not be sharing negative HIV tests. Procedure Name Priority Date/Time Associated Diagnosis Comments CT CHEST INTERSTITIAL LUNG DISEASE/FIBROSIS Routine 10/11/2024 9:16 AM EDT Shortness of breath PULMONARY FUNCTION TEST Routine 09/06/2024 1:48 PM EDT Shortness of breath COMPREHENSIVE METABOLIC PANEL Routine 07/20/2024 1:58 PM EDT FELI positive Arthralgia, unspecified joint Fibromyalgia MICROALBUMIN, RANDOM URINE WITH CREATININE Routine 04/20/2024 9:23 AM EST FELI positive Arthralgia, unspecified joint HEPATITIS C ANTIBODY W/REFLEX TO HCV RNA, QUANTITATIVE PCR Routine 06/04/2022 5:43 PM EDT FELI positive from Last 3 Months or Most Recently Relevant to Health Maintenance Results * Due to [place] Mix[employer] law, this organization might not be sharing negative HIV tests. * CT Chest Interstitial Lung Disease/Fibrosis (10/11/2024 9:16 AM EDT) Anatomical Region Laterality Modality Body Computed Tomogra phy 10/11/2024 9:59 AM EDT Impressions 10/24/2024 9:26 AM EDT 1. No CT evidence of pulmonary fibrosis. 2. Minimal ill-defined centrilobular groundglass opacities in both upper lobes, may represent pulmonary edema or may be infectious/inflammatory in etiology. 3. New small right pleural effusion. If this radiology report contains a blank impression section, it is an incomplete radiology report. Please contact the interpreting radiologist or applicable radiology division as soon as possible to obtain the completed interpretation. Workstation ID: [id number] Up-to-date CT equipment and radiation dose reduction techniques were employed. CTDIvol: 2.4 - 18.3 mGy. DLP: 1117 mGy-cm. Narrative 10/24/2024 9:26 AM EDT EXAMINATION: CT CHEST INTERSTITIAL LUNG DISEASE/FIBROSIS INDICATION: Diffuse/interstitial lung disease suspected R06.02 - I10 - Shortness of breath COMPARISON: CT chest 02/16/2024. TECHNIQUE: Helical images were obtained from the thoracic inlet to the lung bases without intravenous contrast. Coronal and sagittal reformatted images were provided. For radiation dose control at least one of the following techniques was used in this procedure: (1) Automated exposure control (2) Adjustment of the mA and/or kV according to patient size (3) Use of iterative reconstruction technique. High-resolution CT images: Thin section Inspiration, expiration, and prone views were obtained (where possible) FINDINGS: BASE OF NECK: Enlarged heterogeneous left lobe of thyroid with punctate calcifications. LUNGS and AIRWAYS: Minimal ill-defined centrilobular groundglass opacities in both upper lobes. No pulmonary fibrosis. Air trapping cannot be commented upon due to suboptimal expiratory effort. PLEURA: Small right pleural effusion. No left pleural effusion. No pneumothorax. MEDIASTINUM: Heart size is normal. No pericardial effusion. No coronary artery calcifications. NODES: No enlarged supraclavicular, axillary, mediastinal or hilar lymph nodes. UPPER ABDOMEN: Absence of intravenous contrast limits sensitivity for detecting solid organ findings. Diffuse hepatic steatosis. CHEST WALL: No chest wall mass. BONES AND SOFT TISSUES: No suspicious lytic or blastic lesions. Multilevel degenerative changes in the spine. Partially imaged anterior cervical spine fixation hardware. Resulting Agency Comment [id number] Procedure Note Wendi Hollingsworht MD - 10/24/2024 EXAMINATION: CT CHEST INTERSTITIAL LUNG DISEASE/FIBROSIS INDICATION: Diffuse/interstitial lung disease suspected R06.02 - I10 -Shortness of breath COMPARISON: CT chest 02/16/2024. TECHNIQUE: Helical images were obtained from the thoracic inlet to thelung bases without intravenous contrast. Coronal and sagittal reformattedimages were provided. For radiation dose control at least one of thefollowing techniques was used in this procedure: (1) Automated exposurecontrol (2) Adjustment of the mA and/or kV according to patient size (3)Use of iterative reconstruction technique. High-resolution CT images: Thin section Inspiration, expiration, and proneviews were obtained (where possible) FINDINGS: BASE OF NECK: Enlarged heterogeneous left lobe of thyroid with punctatecalcifications. LUNGS and AIRWAYS: Minimal ill-defined centrilobular groundglass opacities in both upperlobes. No pulmonary fibrosis. Air trapping cannot be commented upon due tosuboptimal expiratory effort. PLEURA: Small right pleural effusion. No left pleural effusion. No pneumothorax. MEDIASTINUM: Heart size is normal. No pericardial effusion. No coronary arterycalcifications. NODES: No enlarged supraclavicular, axillary, mediastinal or hilar lymph nodes. UPPER ABDOMEN: Absence of intravenous contrast limits sensitivity for detecting solidorgan findings. Diffuse hepatic steatosis. CHEST WALL: No chest wall mass. BONES AND SOFT TISSUES: No suspicious lytic or blastic lesions. Multilevel degenerative changesin the spine. Partially imaged anterior cervical spine fixation hardware. IMPRESSION: 1. No CT evidence of pulmonary fibrosis. 2. Minimal ill-defined centrilobular groundglass opacities in both upperlobes, may represent pulmonary edema or may be infectious/inflammatory inetiology. 3. New small right pleural effusion. If this radiology report contains a blank impression section, it is anincomplete radiology report. Please contact the interpreting radiologistor applicable radiology division as soon as possible to obtain thecompleted interpretation. Workstation ID: [id number] Up-to-date CT equipment and radiation dose reduction techniques wereemployed. CTDIvol: 2.4 - 18.3 mGy. DLP: 1117 mGy-cm. us Dennis Vallejo MD IMG CT PROCEDURES Final R esult * Pulmonary Function Test UNV; Spirometry, Lung [...] [facility] 09/06/2024 1:48 PM EDT Narrative [facility] - 09/06/2024 1:48 PM [...] [facility] * (ABNORMAL) Comprehensive metabolic panel (07/20/2024 1:58 PM EDT) NA 141 135 - 145 mmol/L 07/20/2024 3:13 PM EDT [facility] K 3.9 3.5 - 5.3 mmol/L 07/20/2024 3:13 PM EDT [facility] Cl 106 98 - 107 mmol/L 07/20/2024 3:13 PM EDT [facility] CO2 25 22 - 32 mmol/L 07/20/2024 3:13 PM EDT [facility] Anion Gap 10 5 - 15 07/20/2024 3:13 PM T [facility] Glucose 116(H) 65 - 99 mg/dL 07/20/2024 3:13 PM [facility] Creatinine 0.77 0.50 - 1.20 mg/dL 07/20/2024 3:13 PM [facility] Calcium 8.7 8.6 - 10.5 mg/dL 07/20/2024 3:13 PM [facility] Total Protein 6.9 6.0 - 8.0 g/dL 07/20/2024 3:13 PM [facility] Albumin 3.4(L) 3.5 - 5.2 g/dL 07/20/2024 3:13 PM [facility] Bilirubin, Total <0.2(L) 0.2 - 1.2 mg/dL 07/20/2024 3:13 PM [facility] Alkaline Phosphatase 56 35 - 129 U/L 07/20/2024 3:13 PM [facility] AST 16 10 - 40 U/L 07/20/2024 3:13 PM [facility] ALT 14 10 - 40 U/L 07/20/2024 3:13 PM [facility] BUN 23 7 - 23 mg/dL 07/20/2024 3:13 PM [facility] eGFR >90 >=60 mL/min/1 .73m2 07/20/2024 3:13 PM [facility] Comment:The estimated glomer ular [...] - 4.2 g/dL 07/20/2024 3:13 PM EDT [facility] A/G Ratio 1.0(L) 1.5 - 3.0 07/20/2024 3:13 PM EDT [facility] Blood Structure of peripheral vein / Unknown Venipuncture / Unknown 07/20/2024 1:58 PM EDT 07/20/2024 2:39 PM EDT us Alonzo Persaud MD LAB BLOOD ORDERABLES Final Result Performing Organization Address City/[facility]/ZIP Co de Phone Number [facility] [address] [phone], * Microalbumin, Random Urine with Creatinine (04/20/2024 9:23 AM EST) Microalbumin, Urine <2.0 mg/dL 04/20/2024 12:17 PM EST [facility] Creatinine, Urine 186 15 - 278 mg/dL 04/20/2024 12:17 PM EST [facility] Microalb/Creat Ratio, Random Urine 04/20/2024 12:17 PM EST [facility] Comment: < 1.0 mcg/mgCr Microalbumin Reference Range: Normal <30 mcg/mg Creatinine Microalbuminuria 30-300 mcg/mg Creatinine Clinical Albuminuria >300 mcg/mg Creatinine Reference: ADA Guideline. Diabetes Care. 2004;27 (suppl 1) Urine Voided urine specimen / Unknown Non-Blood Collection / Unknown 04/20/2024 9:23 AM EST 04/20/2024 9:39 AM EST Alonzo Persaud MD LAB URINE ORDERABLES Final Result [facility] [address] [place] [address], [facility] [address] [place] [address], [place] * Hepatitis C Antibody w/Reflex to HCV RNA, Quantitative PCR (06/04/2022 5:43 PM EDT) Hepatitis C Antibody NON-REACT BETO NON-REACT BETO 06/05/2022 3:44 AM EDT [facility] Signal To Cut-Off 0.02 <1.00 06/05/2022 3:44 AM EDT [facility] Comment: HCV antibody was non-reactive. There is no laboratory evidence of HCV infection. In most cases, no further action is required. However, if recent HCV exposure is suspected, a test for HCV RNA (test code 43990) is suggested. For additional information please refer to http://education.[employer]/faq/PXJ17r1 (This link is being provided for informational/ educational purposes only.) Blood Structure of peripheral vein / Unknown Venipuncture / Unknown 06/04/2022 5:43 PM EDT 06/04/2022 6:08 PM EDT [facility] - 06/05/2022 3:44 AM EDT [facility] Received Date: us Alonoz Persaud MD LAB BLOOD ORDERABLES Final Result Performing Organization Address City/[facility]/ZIP Co de Phone Number [facility] [address], [place] [address], [place] [phone] [employer] [facility] [address], [place] [address], from Last 3 Months or Most Recently Relevant to Health Maintenance Insurance [facility] Care Teams Supervisor Sample Relationship Specialty Start Date End Date Cristian Chacon MD [address] [place] [address] PCP - General 06/04/22
--- OUTSIDE RECORDS SUMMARY | 2024-12-01 10:05 | XMS_ITS | Encounter Summary ---
Author Organization [employer] Address [address] [address] [facility] 7 [place] [address] Care Team Providers Care 911 Telecommunicator Name Role Phone Cristian Chacon MD Primary Care Prov ider Reason for Visit * Reason Onset Date Comments PT1 11/29/2024 Encounter Details Date Type Department Care Team ([facility] st Contact Info) Description 11/29/2024 Telephone C [facility] [address] [place], [place] [phone] Cristian Chacon MD [address] [place] [address] PT1 Social History Tobacco Use Types Packs/Day Years [...] encounter Miscellaneous Notes * Telephone Encounter - Roberto Abel - 11/29/2024 9:16 AM EDT Pt requesting a renewal for her PT1 order for: PT1 Name of facility: [facility] Specialty: ALL FUTURE APPT's Location: [address] [place] [address] Date: N/A Time: N/A Fax: N/A Phone: N/A Wheelchair: N/A Fiscal Accountant: YES (adult) documented in this encounter Plan of Treatment Not on file documented as of this encounter Visit Diagnoses Not on filedocumented in this encounter Additional Health Concerns Assessment Noted Time PHQ-9 Depression Total Score: 16 024 1:19 PM EDT documented as of this encounter Care Teams 911 Telecommunicator Relationship Specialty Start Date End Date Cristian Chacon MD [address] [place] [phone] PCP - General Internal Medicine 03/17/19 Ivy Payne Sourcing EngineerCamera Technician 11/26/23 documented as of this encounter
--- OUTSIDE RECORDS SUMMARY | 2024-12-01 10:05 | XMS_ITS | Encounter Summary ---
Author Organization [employer] Address [address] [place] [address] Care Team Providers Care Oracle Engineer Name Role Phone Cristian Chacon MD Primary Care Prov ider Encounter Details Date Type Department Care Team (Late st Contact Info) Description 07/13/2024 Orders Only [facility] [address] [place], [place] [phone] Provider, MD Roderick Social History Tobacco Use [...] the past 12 months, has t he [employer], oil or water [employer] threatened to shut off services in your [...] documented as of this encounter Care Teams Oracle Engineer Relationship Specialty Start Date End Date Cristian Chacon MD [address] [place] [phone] PCP - General Internal Medicine 03/17/19 Ivy Payne Radio OfficerMaterial Worker 11/26/23 documented as of this encounter
--- OUTSIDE RECORDS SUMMARY | 2024-12-01 10:05 | XMS_ITS | Encounter Summary ---
Author Organization [employer] Address [address] [place] [address] Care Team Providers Care Finisher Tailor Apprentice Name Role Phone Cristian Chacon MD Primary Care Prov ider Encounter Details Date Type Department Care Team (Late st Contact Info) Description 10/03/2024 Orders Only [facility] [address] [place] [address] Provider, MD Roderick Social History Tobacco Use [...] Procedure Name Priority Date/Time Associated Diagnosis Comments ALBUMIN/CREATININE RATIO, TIMED URINE Routine 09/30/2024 3:45 PM EDT LIPID PANEL, STANDARD Routine 09/30/2024 3:18 PM EDT THYROID PANEL WITH TSH Routine 09/30/2024 3:15 PM EDT HEMOGLOBIN A1C Routine 09/30/2024 2:25 PM EDT documented in this encounter Results * Albumin/Creatinine Ration, Timed Urine (09/30/2024 3:45 PM EDT) Urine Urine specimen obtained by clean catch procedure / Unknown Result [facility] Provider LAB URINE ORDERABLES Gladis l Result * Lipid Panel, Standard (09/30/2024 3:18 PM EDT) Blood Venous blood specimen / Unknown [facility] Provider LAB BLOOD ORDERABLES Gladis l Result * Thyroid Panel with TSH (09/30/2024 3:15 PM EDT) Blood Result [facility] Provider LAB BLOOD ORDERABLES Gladis l Result * Hemoglobin A1c (09/30/2024 2:25 PM EDT) Blood Venous blood specimen / Unknown [facility] Provider LAB BLOOD ORDERABLES Gladis l Result documented in this encounter Visit Diagnoses Not on filedocumented in this encounter Additional Health Concerns Assessment Noted Time PHQ-9 Depression Total Score: 16 024 1:19 PM EDT documented as of this encounter Care Teams Finisher Tailor Apprentice Relationship Specialty Start Date End Date Cristian Chacon MD [address] [place] [phone] PCP - General Internal Medicine 03/17/19 Ivy Payne Polishing Machine OperatorSoftware Integration Developer 11/26/23 documented as of this encounter
--- OUTSIDE RECORDS SUMMARY | 2024-12-01 10:05 | XMS_ITS | Encounter Summary ---
Author Organization [employer] Address [address] [facility] 7t [place] [address] Care Team Providers Care Cloth Tester Name Role Phone Cristian Chacon MD Primary Care Prov ider Encounter Details Date Type Department Care Team ([facility] Contact Info) Description 10/24/[address] [facility] [address] [place], [place] [phone] Provider, MD Roderick Social History Tobacco Use [...] Priority Date/Time Associated Diagnosis Comments CT CHEST W CONTRAST Routine 10/11/2024 3:11 PM EDT documented in this encounter Results * CT Chest w/ Contrast (10/11/2024 3:11 PM EDT) Anatomical Region Laterality Modality Body, Chest Computed Tomogra phy us Historical Provider MD MAHONEY CT PROCEDURES Final R esult documented in this encounter Visit Diagnoses Not on filedocumented in this encounter Additional Health Concerns Assessment Noted Time PHQ-9 Depression Total Score: 16 024 1:19 PM EDT documented as of this encounter Care Teams Cloth Tester Relationship Specialty Start Date End Date Cristian Chacon MD [address] [place] [phone] PCP - General Internal Medicine 03/17/19 Ivy Payne Supervisor Case LoadingClinical Research Administrator 11/26/23 documented as of this encounter
--- OUTSIDE RECORDS SUMMARY | 2024-12-01 10:05 | XMS_ITS | Encounter Summary ---
Author Organization [employer] Address [address] [employer] [address] [employer] 7t [place] [address] Care Team Providers Care Junior Network Administrator Name Role Phone Cristian Chacon MD Primary Care Prov ider Reason for Visit * Reason Onset Date Comments ER Follow-up 03/23/2024 Nurse Triage 03/23/2024 Encounter Details Date Type Department Care Team ([facility] st Contact Info) Description 03/23/2024 Telephone [facility] [address] [place] [address] Cristian Chacon MD [address] [place] [address] ER Follow-up; Nurse Triage Social History Tobacco [...] 11:51 AM EST [place] [id number] Jose Alberto Pt was seen in [facility] ED 03/19/24 , (report is on the [...] is offered an apt this Thursday at [facility] with provider but, requests to only [...] 03/23/2024 9:50 AM EST Tc from pt manager medicare calling to report ED visit on : Date: 03/19 [address]: [facility] Seen for: Chest pain, Abdominal pain. Symptomatic Yes (Can't walk normally) *if yes message should go to Triage Patient advised will forward to team nurse for follow up [phone] thai documented in this encounter Plan of Treatment Not on file documented as of this encounter Visit Diagnoses Not on filedocumented in this encounter Additional Health Concerns Assessment Noted Time PHQ-9 Depression Total Score: 16 024 1:19 PM EDT documented as of this encounter Care Teams Junior Network Administrator Relationship Specialty Start Date End Date Cristian Chacon MD [address] [place] [id number] PCP - General Internal Medicine 03/17/19 Ivy Payne Insurance AttorneyFour Slide Operator 11/26/23 documented as of this encounter
--- OUTSIDE RECORDS SUMMARY | 2024-12-01 10:05 | XMS_ITS | Encounter Summary ---
Author Organization [employer] Address [address] [facility] 7 [place] [address] Care Team Providers Care Animal Anatomist Name Role Phone Cristian Chacon MD Primary Care Prov ider Reason for Visit * Reason Onset Date Comments Medication Question 09/12/2022 Encounter Details Date Type Department Care Team ([facility] st Contact Info) Description 09/12/2022 Telephone [facility] [address] [place], [place] [phone] Cristian Chacon MD [address] [place] [address] Medication Question Social History Tobacco Use Types [...] EDT TC to pt- Jamee was the logistic specialist. Pt stated she had not picked up the Benadryl yet for rash itchiness. She will do so. Also, pt's engine dynamometer tester has retired. She would like PCP to [...] on filedocumented in this encounter Care Teams Animal Anatomist Relationship Specialty Start Date End Date Cristian Chacon MD [address] [place] [id number] PCP - General Internal Medicine 03/17/19 Ivy Payne Switchboard ReceptionistCotton Header 03/03/23 11/25/23 Ivy Payne Picker FeederCotton Header 11/26/23 documented as of this encounter
--- OUTSIDE RECORDS SUMMARY | 2024-12-01 10:05 | XMS_ITS | Encounter Summary ---
Author Organization [facility] Address [facility] Last [address] [facility] [address] [place] [address] Phone Care Team Providers Care Floor Plan Adjuster Name Role Phone Unknown, Unknown Primary Care Provider Susan Souza MD Primary Care Provider + [phone] Cristian Chacon MD Primary Care Prov ider Reason for Referral * Consultation (Within 1 month) - Closed Specialty Diagnoses / Procedures Referred By Lurdes sarmiento Referred To Contact Diagnoses Fibromyalgia System, Provider Not In, PhD [address] [address] Zhen Wilks MD Phone: tel: fax: mailto:[email or web address] Referral ID Status Reason Start Date Expiration Date Visits Re quested Visits Authorized [id number] Closed 11/18/2017 11/18/2018 6 6 Encounter Details Date Type Department Care Team (Latest Contact Info) Description 11/09/2017 Transcribe Orders [facility] Rheumatology [address], [address] [place] [address] Susan Vogt MD [address] [place] [address] Fibromyalgia (Primary Dx) Social History Tobacco Use Types Packs/Day Years Used Date Smoking Tobacco: Never Assessed Comments Unknown Sex and Gender Information Value Date Recorded Sex Assigned at Not on file Legal Sex Female 6:19 PM EST Gender Identity Not on file Sexual Orientation Not on file documented as of this encounter Plan of Treatment Upcoming Encounters Date Type Department Care Team ([facility] st Contact Info) Description 01/25/2025 11:10 AM EST Office Visit [facility] [address] [place] [address] Musa Mcdowell [address] [address] 02/13/2025 8:30 AM EST Office Visit [facility] [address] [place] [address] Musa Mcdowell [address] [address] 03/14/2025 10:00 AM EST Office Visit [facility] Pulmonary, Allergy and Critical Care Medicine [address] [facility] [place] [address] Blayne Kam MD [address] [place] [address] [email or web address] Scheduled Referrals Name Type Priority Associated Diagnoses Order Schedule Ambulatory referral to [facility] Rheumatology Outpatient Referral Routine Fibromyalgia Ordered: 11/09/2017 documented as of this encounter Visit Diagnoses Diagnosis Fibromyalgia- Primary Unspecified myalgia and myositis documented in this encounter Care Teams Floor Plan Adjuster Relationship Specialty Start Date End Date Unknown, Unknown, MD PCP - General 11/09/17 12/30/17 Susan Vogt MD [address] [address] PCP - General Family Medicine 12/31/17 10/22/20 Cristian Chacon MD [address] [place] [phone] PCP - General Internal Medicine 10/23/20 documented as of this encounter Additional Source Comments The information contained in this document represents components of the legal health record. It is not the complete legal health record.[facility]
--- OUTSIDE RECORDS SUMMARY | 2024-12-01 10:05 | XMS_ITS | Encounter Summary ---
Author Organization [employer] Address [address] [facility] 7t [place] [address] Care Team Providers Care Waste Management Engineer Name Role Phone Cristian Chacon MD Primary Care Prov ider Encounter Details Date Type Department Care Team ([facility] Contact Info) Description 01/11/2024 Orders Only [facility] [address] [place], [place] [phone] Provider, MD Roderick Social History Tobacco Use [...] documented as of this encounter Care Teams Waste Management Engineer Relationship Specialty Start Date End Date Cristian Chacon MD [address] [place] [id number] PCP - General Internal Medicine 03/17/19 Ivy Payne Airport Ramp AttendantMarine Driller 11/26/23 documented as of this encounter
--- OUTSIDE RECORDS SUMMARY | 2024-12-01 10:05 | XMS_ITS | Encounter Summary ---
Author Organization [employer] Address [address] [facility] 7t [place] [address] Care Team Providers Care Golf Ball Cover Treater Name Role Phone Cristian Chacon MD Primary Care Prov ider Encounter Details Date Type Department Care Team ([facility] st Contact Info) Description 09/04/2023 Orders Only [facility] [address] [place], [place] [phone] Cristian Chacon MD [address] [place] [address] Social History Tobacco Use Types Packs/Day Years [...] documented as of this encounter Care Teams Golf Ball Cover Treater Relationship Specialty Start Date End Date Cristian Chacon MD [address] [place] [phone] PCP - General Internal Medicine 03/17/19 Ivy Payne Ship WasherCommercial Real Estate Broker 03/03/23 11/25/23 Ivy Payne Case LinerCommercial Real Estate Broker 11/26/23 documented as of this encounter
--- OUTSIDE RECORDS SUMMARY | 2024-12-01 10:05 | XMS_ITS | Clinical Summary ---
Author Organization [employer] Address [address] [facility] [address] [place] [address] Care Team Providers Care Blow Molder Name Role Phone Cristian Chacon MD Primary Care Prov ider Allergies Active Allergy Reactions Criticality Noted Date Comments Aspirin Itching,Rash Low 10/22/2012 patient denies allerrgy patient denies allerrgy patient denies allerrgy Citrullus Vulgaris 10/17/2021 Other reaction(s): Acute Generalized Exanthematous Pustulosis, Eggs (edible), Watermelon Other reaction(s): Watermelon Codeine Anaphylaxis High 03/07/2022 SWELLING SWELLING SWELLING SWELLING SWELLING SWELLING SWELLING SWELLING SWELLING SWELLING SWELLING SWELLING Cyclobenzaprine Diarrhea 02/10/2017 [...] 40 MG EC tablet TOME ОЛЕГ TABLETA S LOS D 023 Active magnesium oxide (Mag-Ox) 400 MG tablet TOME ОЛЕГ TABLETA POR V A ORAL D 022 Active LORazepam (Ativan) 0.5 MG tablet Take 0.5 mg by mouth. 022 Active folic acid (Folvite) 1 MG tablet TOME ОЛЕГ TABLETA TODOS LOS D 022 Active ketorolac (Acular) 0.5 [...] ОЛЕГ TABLETA TODOS [place] 90 tablet 3 024 Active furosemide (Lasix) [...] refills and quantity 7 Tejal 024 Active diclofenac (Cataflam) 50 MG tablet TOME [...] if needed for wheezing. 75 mL 11 2025 Active losartan (Cozaar) 25 MG tabletIndications :Primary hypertension TOME 1 TABLETA POR VIA ORAL TODOS [place] EN [place] 90 tablet 3 Active Blood Glucose Monitoring Suppl (FreeStyle Lite) w/Device kit 1 Device Once per day. 1 kit Active FREESTYLE LITE test stripIndications: Type 2 diabetes mellitus without complication, without long-term current use of insulin ([facility]) Use to test blood sugar 1 times daily 100 each 12 025 2025 Active Lancets 33G miscIndications:T ype 2 diabetes mellitus without complication, without long-term current use of insulin ([facility]) 1 Units before breakfast. 100 each Active ondansetron ODT (Zofran-ODT) 4 MG disintegrating tabletIndications :Nausea DISUELVA ОЛЕГ TABLETA POR V A ORAL CADA SEIS HORAS CUANDO SEA NECESARIO FOR NAUSEA 30 tablet Active meclizine (Antivert) 25 MG tabletIndications :Dizziness Take 1 tablet (25 mg) by mouth every 8 (eight) hours if needed for dizziness. 30 tablet 3 Active EPINEPHrine (Epipen-JR) 0.15 MG/0.3ML injection syringeIndication s:Bee sting allergy INJECT 0.6 ML (0.3 MG) DIRECTED 1 (ONE) TIME FOR 1 DOSE. USE DIRECTED FOR ALLERGIC REACTION AND THEN CALL 911 0.6 mL Active albuterol (Ventolin HFA) 108 (90 Base) MCG/ACT inhalerIndication s:Asthma, unspecified asthma severity, unspecified whether complicated, unspecified whether persistent Inhale 2 puffs every 6 (six) hours if needed for wheezing. 18 g 2 Active fluticasone-salme terol (Advair HFA) 230-21 MCG/ACT inhalerIndication s:Moderate persistent asthma without complication Inhale 2 puffs in the morning and at bedtime. 12 g 11 09/22/2 025 Active naproxen (Naprosyn) 500 MG tabletIndications :Other headache syndrome TAKE 1 TABLET BY MOUTH WITH BREAKFAST AND EVENING MEAL 60 tablet 025 Active diphenhydrAMINE (BENADryl) 25 MG tablet Take 1 tablet (25 mg) by mouth if needed at bedtime for itching. 30 tablet 025 2024 Active loratadine (Claritin) 10 MG tablet Take 10 mg by mouth. 018 Discontinued(R eorder (will not trigger notification to Pharmacy)) albuterol (Ventolin HFA) 108 (90 Base) MCG/ACT inhalerIndication s:Asthma, unspecified asthma severity, unspecified whether complicated, unspecified whether persistent Inhale 2 puffs every 6 (six) hours if needed for wheezing. 18 g 2 025 2024 Discontinued(R eorder (will not trigger notification to Pharmacy)) fluticasone-salme terol (Advair HFA) 230-21 MCG/ACT inhalerIndication s:Moderate persistent asthma without complication Inhale 2 puffs in the morning and at bedtime. 12 g 11 025 2024 Discontinued(R eorder (will not trigger notification to Pharmacy)) naproxen (Naprosyn) 500 MG tabletIndications :Other headache syndrome TAKE 1 TABLET BY MOUTH WITH BREAKFAST AND EVENING MEAL 60 tablet 025 2024 Discontinued(R eorder (will not trigger [...] rheumatology, er precautions discussed Systemic lupus erythematosus ([facility]/HCC) Pre-diabetes 11/10/2023 Assessment & Plan (05/17/2024 2:43 [...] Plan (08/10/2023 4:03 PM EDT): Referral to Research Quality Assurance Analyst for further evaluation of symptoms. Ordering Stress [...] allergic will prescribe ketotifen, follow up with manager in home, she has scheduled appointment already Pelvic pain 03/23/2023 Chronic pelvic pain in female 03/17/2023 Assessment & Plan (01/12/2024 6:12 PM EST): Patient wants to be followed at [place], will place referral Upper back pain 01/14/2023 [...] lateral foot pain, she has seen various civil engineering project manager, she would like another [...] PM EST): Will place refferal to a manager of creative services Seborrheic dermatitis 04/10/2022 Assessment & Plan (06/29/2022 9:34 PM EDT): Will renew selenium sulfide shampoo, follow up as needed Assessment & Plan (04/10/2022 11:24 PM EST): Will order selenium sulfide Vaginal roberto 03/12/2022 Assessment & Plan (03/12/2022 6:15 PM EST): Will provide fluconazole Asthma 03/07/2022 Assessment & Plan (11/23/2024 8:03 PM EDT): Will place referral for pneumology evaluation follow up as needed Assessment & Plan (07/08/2023 12:31 PM EDT): [...] to perform daily activities, she currently has OUT PATIENT THERAPIST services but the hours provided are not [...] LESION, MOST LIKELY HEMORRHAGIC OVARIAN CYST. F/U INSULATION BLOWER S/P US PELVIS 07/04/13 DUE PELVIC PAIN. 2.9 X 3.8 X 3 CM LEFT ADNEXAL CYSTIC LESION, MOST LIKELY HEMORRHAGIC OVARIAN CYST. F/U INSULATION BLOWER Left carpal tunnel syndrome 06/22/2013 Vitamin D [...] Insomnia 05/13/2007 Overview (05/29/2022): Overview: F/U AT [facility] (DR. NANCE). F/U AT [facility] (DR. NANCE). Mild persistent asthma 05/13/2007 Assessment & Plan (05/17/2024 2:45 PM EDT): On inhalers, no current exacerbation, continue same therapy Encounters Date Type Department Care Team Description 11/30/2024 Refill [facility] [address] [place] [address] Cristian Chacon MD Upper back pain 11/29/2024 Telephone [facility] [address] [place] [address] Cristian Chacon MD PT1 11/24/2024 Telephone [facility] [address] [place] [address] Cristian Chacon MD 11/21/2024 3:45 PM EDT Office Visit [facility] [address] [place], [place] [phone] Cristian Chacon MD Asthma, unspecified asthma severity, unspecified whether complicated, unspecified whether persistent; Moderate persistent asthma without complication; Other headache syndrome 11/21/2024 Travel 11/07/2024 Telephone [facility] [address] [place] [address] Cristian Chacon MD 11/07/2024 Patient Outreach [facility] [address] [place] [phone] Cristian Chacon MD Care Coordination ([facility]/W Geovanny Parks f/u, program graduation) 11/01/2024 Telephone [facility] [address] [place] [address] Cristian Chacon MD 10/24/2024 Orders Only [facility] [address] [place] [phone] Roderick Weiner MD 10/18/[address] [address] Cristian Chacon MD Care Management (C3- f/u call lv) 10/13/2024 Telephone [facility] [address] [place] [phone] Cristian Chacon MD R/S APPT 10/04/[address] [address] Cristian Chacon MD Care Management (C3- f/u call) 10/03/2024 Orders Only [facility] [address] [place] [phone] Roderick Weiner MD 09/29/2024 Telephone [facility] [address] [place] [phone] Eduarda Villeda MD No Show 09/28/2024 Telephone [facility] [address] [place] [address] Cristian Chacon MD Chart Prep 09/28/2024 Telephone [facility] [address] [place] [address] Cristian Chacon MD Pre-op Exam 09/26/2024 4:00 PM EDT Office Visit [facility] [address] [place] [phone] Jeannine Vega FNP Preop examination (Primary Dx); Type 2 diabetes mellitus without complication, without long-term current use of insulin ([facility]) 09/26/2024 Travel 09/23/2024 Telephone [facility] [address] [place] [address] Cristian Chacon MD Referral 09/16/2024 Telephone [facility] [address] [place], [place] [phone] Cristian Chacon MD Appointment Request 09/15/2024 Results Follow-Up [facility] [address] [place] [address] [phone] Abdomen Pelvis w/o Contrast 09/15/2024 Orders Only GENERIC EXTERNAL DATA DEPARTMENT Provider, [facility] External Data 09/13/2024 Patient Outreach [address] [address] Cristian Chacon MD Care Coordination ([facility] Nino Conroy [facility] f/u call ) 09/07/2024 Orders Only [facility] [address] [place] [address] Provider, MD Roderick 09/01/2024 Patient Outreach [address] [address] Cristian Chacon MD Care Coordination ([facility]/W Nino Conroy, [facility] ) from Last 3 Months Immunizations Immunization Administration Dates Next Due Influenza injectable quadriv alent IIV4 with preservative 03/13/2009 Influenza injectable quadriv alent preservative free 12/11/2022,01/04/2022,02/12/2021,12/05,10/25/2018,12/14/2017,12/12/2016 ,03/10/2016 Influenza, IIV3, injectable 12/11/2014 Influenza, Injectable, MDCK, preservative free 12/10/2023 Pneumococcal Conjugate PCV 13 10/14/2010 Pneumococcal Polysaccharide [...] Sign Reading Time Taken Comments Blood Pressure 122/87 11/21/2024 4:13 PM EDT Pulse 86 11/21/2024 4:13 PM EDT Temperature 36.6 C (97.8 F) 11/21/2024 4:13 PM EDT Respiratory Rate 20 11/21/2024 4:13 PM EDT Oxygen Saturation 98% 09/26/2024 4:15 PM EDT Inhaled Oxygen Concentration - - Weight 86.3 kg (190 lb 3.2 oz) 11/21/2024 4:13 P M EDT Height 157.5 cm (5' 2 ) 11/21/2024 4:13 PM EDT Body Mass Index 34.79 11/21/2024 4:13 PM EDT Plan of Treatment Health Maintenance Due Date Last Done Comments CT Colonography 1970 Colonoscopy 1968 Colorectal Cancer Screening 1970 FIT DNA/Cologuard 1968 FIT 1968 FOBT 1968 Sigmoidoscopy 1968 Disability Screening 1968 Eye Exam 1978 Hepatitis A Vaccines (1 of 2 - Risk 2-dose series) 07/20/1987 Hepatitis B Vaccines (1 of 3 - 19+ 3-dose series) 07/20/1987 Pneumococcal Vaccine: 50+ Years (3 of 3 - PPSV23, PCV20 or PCV21) 10/15/2015 10/14/2010, 10/14/2010 Zoster Vaccines (2 of 2) 06/08/2019 04/13/2019 DTaP/Tdap/Td Vaccines (2 - Td or Tdap) 10/14/2020 10/14/2010 Depression Monitoring 06/21/2024 12/22/2023, 024 COVID-19 Vaccine (6 - Mixed Product risk season) 2024 12/18/2023, 01/04/2022, 03/22/2021, Additional history exists Influenza Vaccine (#1) 2024 , 12/11/2022, 01/04/2022, Additional history exists Diabetes: Hemoglobin A1C 04/02/2025 025, 09/30/2024, 09/26/2024, Additional history exists Alcohol/Substance Use Screening 05/17/2025 05/17/2024 Mammogram 05/26/2025 05/27/2023, 0303/2022, 05/20/2022, Additional history exists Diabetes: Foot Exam 06/16/2025 06/16/2024, 06/16/2024, 06/16/2024, Additional history exists Tobacco Screening 07/06/2025 07/06/2024 SDOH Screening 07/18/2025 07/18/2024 Diabetes: Urine Protein Screening 09/30/2025 09/30/2024, 04/20/2024, 03/23/2024, Additional history exists Lipid Panel 09/30/2025 09/30/2024, 11/26/2021 Cervical Cancer Screening 04/17/2027 HPV/Cotest 04/17/2027 Pap Smear 04/17/2027 04/17/2022 RSV Patients and Patients Aged 60 years or older (1 - 1-dose 75+ series) 07/20/2043 HIV [...] Comments CT CHEST W CONTRAST Routine 10/11/2024 3 :11 PM EDT ALBUMIN/CREATININE RATIO, TIMED URINE Routine 09/30/2024 3:45 PM EDT LIPID PANEL, STANDARD Routine 09/30/2024 3:18 PM EDT THYROID PANEL WITH TSH Routine 3:15 PM EDT HEMOGLOBIN A1C Routine 09/30/2024 2:25 PM EDT POCT GLUCOSE Routine 09/26/2024 4:18 PM EDT Type 2 diabetes mellitus without complication, without long-term current use of insulin (CMS/[facility]) POCT GLYCATED HEMOGLOBIN, TOTAL Routine 09/26/2024 4:17 PM EDT Type 2 diabetes mellitus without complication, without long-term current use of insulin (CMS/HCC) POCT GLUCOSE Routine 09/26/2024 4:16 PM EDT Type 2 diabetes mellitus without complication, without long-term current use of insulin (CMS/HCC) LIPASE Routine 09/15/2024 12:20 PM EDT COMPREHENSIVE METABOLIC PANEL Routine 09/15/2024 12:20 PM EDT CBC WITH AUTO DIFFERENTIAL Routine 09/15/2024 12:[address] ABDOMEN PELVIS WO CONTRAST Routine 09/15/2024 11:42 AM EDT HEMATOXYLIN AND EOSIN STAIN Routine 09/15/2024 10:27 AM EDT GLUCOSE, WHOLE BLOOD Routine 09/15/2024 9:40 AM EDT PULMONARY FUNCTION TESTING Routine 09/06/2024 1:14 PM EDT BI MAMMOGRAM SCREENING TOMOSYNTHESIS BILATERAL Routine 05/27/2023 9:10 AM EDT HM PAP/HPV Routine 04/17/2022 3:44 PM EST from Last 3 Months or Most Recently Relevant to Health Maintenance Results * CT Chest w/ Contrast (10/11/2024 3:11 PM EDT) Anatomical Region Laterality Modality Body, Chest Computed Tomogra phy Historical Provider IMG CT PROCEDURES Final R esult * Albumin/Creatinine Ration, Timed Urine (09/30/2024 3:45 PM EDT) Urine Urine specimen obtained by clean catch procedure / Unknown Historical Provider LAB URINE ORDERABLES Gladis l Result * Lipid Panel, Standard (09/30/2024 3:18 PM EDT) Blood Venous blood specimen / Unknown [facility] Provider LAB BLOOD ORDERABLES Gladis l Result * Thyroid Panel with TSH (09/30/2024 3:15 PM EDT) Blood Historical Provider MD LAB BLOOD ORDERABLES Gladis l Result * Hemoglobin A1c (09/30/2024 2:25 PM EDT) Blood Venous blood specimen / Unknown Result [facility] Historical Provider MD LAB BLOOD ORDERABLES Gladis l Result * POCT glucose manually resulted (09/26/2024 4:18 PM EDT) Only the most recent of2 resultswithin the time period is included. Glucose Blood, POC 99 60 - 200 mg/dL QC Media Lot # Comment:[id number] Lot# Expiration Date Comment:12/29/2024 Blood Capillary blood specimen / Unknown 09/26/2024 4:18 PM EDT [facility] POINT OF CARE TEST ENTER/EDIT O RDERABLES Final Result * (ABNORMAL) POCT A1C (09/26/2024 4:17 PM EDT) Hemoglobin A1C 6.2(A) 4.0 - 5.7 % QC Media Lot # Comment:[id number] Lot# Expiration Date Comment:05/10/2026 Blood 09/26/2024 4:17 PM EDT Result [facility] POINT OF CARE TEST ENTER/EDIT O RDERABLES Final Result * (ABNORMAL) CBC auto differential (09/15/2024 12:20 PM EDT) White Blood Count 5.4 4.8 - 10.8 X10*3/uL [facility] Red Blood Count 4.32 4.20 - 5.50 X10*6/uL [facility] Hemoglobin 12.7 12.0 - 16.0 g/dl [facility] Hematocrit 38.2 37.0 - 47.0 % [facility] Mean Corpuscular Volume 88.4 80.0 - 98.0 fL [facility] Mean Corpuscular Hemoglobin 29.4 27.0 - 33.0 pg [facility] Mean Corpuscular HGB Conc 33.2 31.0 - 35.0 g/dl [facility] Red Cell Distribution Width 13.8 11.0 - 16.0 % [facility] Platelet Count 345 160 - 400 X10*3/uL [facility] Mean Platelet Volume 9.3(L) 9.4 - 12.3 fL [facility] Neutrophils Percent Auto 77.4(H) 45 - 73 % [facility] Imm Gran Pct Auto 0.4 0.0 - 0.4 % [facility] Lymphocytes Percent Auto 15.0(L) 20 - 40 % [facility] Monocytes Percent Auto 5.0 2 - 11 % [facility] Eosinophils Percent Auto 2.0 0 - 4 % [facility] Basophils Percent Auto 0.2 0 - 2 % [facility] NRBC Pct Auto 0.0 0.0 - 0.2 /100WBC [facility] Neutrophils Absolute Auto 4.2 2.0 - 8.3 x10*3/uL [facility] Imm Gran Abs Auto 0.02 0.00 - 0.03 X10*3/uL [facility] Lymphocytes Absolute Auto 0.8(L) 1.2 - 4.9 X10*3/uL [facility] Monocytes Absolute Auto 0.3 0.1 - 1.2 X10*3/uL [facility] Eosinophils Absolute Auto 0.1 0.0 - 0.4 X10*3/uL [facility] Basophils Absolute Auto 0.0 0.0 - 0.2 X10*3/uL [facility] NRBC Abs Auto 0.000 0.0 - 0.012 X10*3/uL [facility] 09/15/2024 12:2 0 PM EDT 09/15/2024 12:24 PM EDT us Generic External Data Provider LAB BLOOD ORDERAB LES Final Result Performing Organization Address City/State/RUST Co de Phone Number [facility] [address] [place] [address] [phone] * Lipase (09/15/2024 12:20 PM EDT) Lipase 47 8 - 78 U/L [facility] 09/15/2024 12:2 0 PM EDT 09/15/2024 12:24 PM EDT us Generic External Data Provider LAB BLOOD ORDERAB LES Final Result Performing Organization Address [facility]/[place] Co de Phone Number [facility] [address] [place] [address] [phone] * (ABNORMAL) Comprehensive Metabolic Panel (09/15/2024 12:20 PM EDT) Sodium 142 135 - 145 mmol/L [facility] Potassium 4.2 3.3 - 5.1 mmol/L [facility] Chloride 108 96 - 108 mmol/L [facility] Carbon Dioxide 27 22 - 29 mmol/L [facility] Anion Gap 11(L) 12 - 20 [facility] Urea Nitrogen (BUN) 19(H) 9 - 16 mg/dL [facility] Creatinine, Serum 0.67 0.5 - 1.4 mg/dL [facility] Creatinine Clr Calc Pharmacy 94.1 [facility] Comment:Provided height and weight: 152.4 cm,90.718 kg.eGFR (calculated from the MDRD study equation) and eCrCl(calculated from the Cockcroft-Gault equation) are based ondifferent parameters and may not yield comparable results.If eCrCl result is absurd, please check patient'sheight/weight. Estimated Glomerular Filt Rate >60 [facility] Comment:Chronic Kidney Disea se: Estimated GFR < 60 mL/min/[id number] Kidney Disease: Estimated GFR < 15 mL/min/1.73m2 Glucose 82 60 - 115 mg/dL [facility] Calcium 8.5 8.4 - 10.2 mg/dL [facility] Bilirubin, Total 0.2 0.0 - 1.0 mg/dL [facility] Aspartate Amino Transferase 16 5 - 31 U/L [facility] Alanine Aminotransferase 14 0 - 31 U/L [facility] Total Protein 6.9 6.5 - 8.0 g/dL [facility] Albumin Level 3.8 3.5 - 5.0 g/dL [facility] Alkaline Phosphatase 49 39 - 117 U/L [facility] 09/15/2024 12:2 0 PM EDT 09/15/2024 12:24 PM EDT us Generic External Data Provider LAB BLOOD ORDERAB LES Final Result Performing Organization Address City/State/[place] Co de Phone Number [facility] [address] [place] [address] [phone] * CT Abdomen Pelvis w/o Contrast (09/15/2024 11:42 AM EDT) Anatomical Region Laterality Modality Body, Pelvis, Abdomen Computed T omography 09/15/2024 11:4 2 AM EDT Narrative 09/15/2024 12:19 PM EDT [place] [address] CT Scan Report Signed Patient: Scarlett Liriano MR#: [id number] 354 : 1970 Acct:[id number] Age/Sex: 54 / F ADM Date: 09/15/24 Loc: HO.SSS Attending Dr: Ellie Gan MD Ordering Physician: Ellie Gan MD Date of Service: 09/15/24 Procedure(s): CT abdomen pelvis wo IV con Accession Number(s): [id number] cc: Cristian Chacon MD; Ellie Gan MD Report Number: [id number]: Total DLP = 556.00 mGy-cm EXAMINATION: CT ABDOMEN AND PELVIS WITHOUT CONTRAST CLINICAL INFORMATION: Status post EGD with balloon dilatation of the pylorus. Rule out perforation retroperitoneal or otherwise. COMPARISON: 01/21/2024 CT abdomen pelvis. TECHNIQUE: Multidetector volumetric imaging was performed from the superior aspect of the liver through the pubic symphysis. Sagittal and coronal reformatted images were obtained on the technologist's workstation. This CT examination was performed using dose optimization techniques as appropriate, variously including the following: *Automated exposure control *Adjustment of mA and/or kV according to patient size (this includes techniques or standardized protocols for targeted exams where dose is matched to indication/reason for exam; i.e. extremities or head) *Use of iterative reconstruction technique FINDINGS: LUNG BASES: There is a tiny right pleural effusion, new from prior. There is mild right basilar passive and linear atelectasis. The left lung bases clear. There is borderline cardiac enlargement. There is no pericardial effusion. There is mild thickening of the distal esophagus noted, suggesting esophagitis. LIVER, GALLBLADDER, AND BILIARY TREE: The unenhanced liver demonstrates diffuse fatty infiltration. There is focal fatty sparing abutting the gallbladder fossa. There is no suspicious focal hepatic lesion. There is no intrahepatic biliary duct dilatation. The gallbladder is unremarkable with no evidence of radiopaque gallstones, gallbladder wall thickening, or obvious pericholecystic inflammatory changes. PANCREAS: Unremarkable. SPLEEN: Unremarkable. ADRENAL GLANDS: Unremarkable. KIDNEYS AND URETERS: The kidneys are normal in size, shape, and attenuation. No hydronephrosis, hydroureter, or calculi seen. No perinephric stranding. BLADDER: Suboptimally distended but grossly normal. GASTROINTESTINAL TRACT: No abnormality at the region of the pylorus is noted. The stomach is normal. The duodenal sweep appears normal. The small bowel is normal in caliber and course. No wall thickening or inflammation. The colon is normal in caliber and course without wall thickening or inflammation. There are a few scattered diverticula in the sigmoid region. Normal appendix is visualized. ABDOMINAL WALL: There is a tiny right fat-containing inguinal hernia. There may be a tiny left fat-containing inguinal hernia as well. LYMPH NODES: There is no abnormal lymphadenopathy present. VASCULAR: Unremarkable. PELVIC VISCERA: There has been a hysterectomy. Adnexal structures are normal. OSSEOUS STRUCTURES: There is no suspicious lytic or blastic bone lesion. There is a partially sacralized L5 vertebral body. CT/CT abdomen pelvis wo IV con IMPRESSION: 1. There is no evidence of abnormality of the stomach or pylorus. There is no evidence of inflammation or perforation. 2. There is a new tiny right layering pleural effusion. Etiology is unclear. 3. Diffuse fatty infiltration of the liver. No suspicious liver lesion. 4. Hysterectomy. No adnexal abnormalities. 5. Mild sigmoid diverticulosis. 6. Additional ancillary findings as discussed in the body of the report. Electronically signed by: Lior Herrera MD 09/15/2024 12:16 PM EDT Dictated By: Lior Herrera MD Signed By: <Electronically signed by Lior Herrera MD in OV> 09/15/24 1216 DD/ 1142 TD/TT: 09/15/24 1158 Master Black Belt: Procedure Note Donotuseinterpreter, Image - 09/15/[address] [place] [address] [address] Scan Report Signed Patient: Scarlett LirianoMR#: [id number] 354 : 1970Acct:[id number] Age/Sex: 54 / FADM Date: 09/15/24 Loc: HO[facility] Attending Dr: Ellie Gan MD Ordering Physician: Ellie Gan MD Date of Service: 09/15/24 Procedure(s): CT abdomen pelvis wo IV con Accession Number(s): [id number] cc: Cristian Chacon MD; Ellie Gan MD Report Number: [id number]: Total DLP = 556.00 mGy-cm EXAMINATION: CT ABDOMEN AND PELVIS WITHOUT CONTRAST CLINICAL INFORMATION: Status post EGD with balloon dilatation of the pylorus. Rule out perforation retroperitoneal or otherwise. COMPARISON: 01/21/2024 CT abdomen pelvis. TECHNIQUE: Multidetector volumetric imaging was performed from the superior aspect of the liver through the pubic symphysis. Sagittal and coronal reformatted images were obtained on the technologist's workstation. This CT examination was performed using dose optimization techniques as appropriate, variously including the following: *Automated exposure control *Adjustment of mA and/or kV according to patient size (this includes techniques or standardized protocols for targeted exams where dose is matched to indication/reason for exam; i.e. extremities or head) *Use of iterative reconstruction technique FINDINGS: LUNG BASES: There is a tiny right pleural effusion, new from prior. There is mild right basilar passive and linear atelectasis. The left lung bases clear. There is borderline cardiac enlargement. There is no pericardial effusion. There is mild thickening of the distal esophagus noted, suggesting esophagitis. LIVER, GALLBLADDER, AND BILIARY TREE: The unenhanced liver demonstrates diffuse fatty infiltration. There is focal fatty sparing abutting the gallbladder fossa. There is no suspicious focal hepatic lesion. There is no intrahepatic biliary duct dilatation. The gallbladder is unremarkable with no evidence of radiopaque gallstones, gallbladder wall thickening, or obvious pericholecystic inflammatory changes. PANCREAS: Unremarkable. SPLEEN: Unremarkable. ADRENAL GLANDS: Unremarkable. KIDNEYS AND URETERS: The kidneys are normal in size, shape, and attenuation. No hydronephrosis, hydroureter, or calculi seen. No perinephric stranding. BLADDER: Suboptimally distended but grossly normal. GASTROINTESTINAL TRACT: No abnormality at the region of the pylorus is noted. The stomach is normal. The duodenal sweep appears normal. The small bowel is normal in caliber and course. No wall thickening or inflammation. The colon is normal in caliber and course without wall thickening or inflammation. There are a few scattered diverticula in the sigmoid region. Normal appendix is visualized. ABDOMINAL WALL: There is a tiny right fat-containing inguinal hernia. There may be a tiny left fat-containing inguinal hernia as well. LYMPH NODES: There is no abnormal lymphadenopathy present. VASCULAR: Unremarkable. PELVIC VISCERA: There has been a hysterectomy. Adnexal structures are normal. OSSEOUS STRUCTURES: There is no suspicious lytic or blastic bone lesion. There is a partially sacralized L5 vertebral body. CT/CT abdomen pelvis wo IV con IMPRESSION: 1. There is no evidence of abnormality of the stomach or pylorus. There is no evidence of inflammation or perforation. 2. There is a new tiny right layering pleural effusion. Etiology is unclear. 3. Diffuse fatty infiltration of the liver. No suspicious liver lesion. 4. Hysterectomy. No adnexal abnormalities. 5. Mild sigmoid diverticulosis. 6. Additional ancillary findings as discussed in the body of the report. Electronically signed by: Lior Herrera MD 09/15/2024 12:16 PM EDT RP Dictated By: Lior Herrera MD Signed By: <Electronically signed by Lior Herrera MD in OV> 09/15/24 1216 DD/ 1142 TD/TT: 09/15/24 1158 Master Black Belt: [facility] External Provider IMG CT PROCEDURES Edited Result - Final * Hematoxylin and Eosin Stain (09/15/2024 10:27 AM EDT) 09/15/2024 10:2 7 AM EDT 09/15/2024 11:07 AM EDT Narrative [facility] - 09/16/2024 1:58 PM EDT ----- ------- Name: Scarlett Liriano Age/Sex: 54/F : 1970 Unit#: [id number] Attend Dr: Ellie Gan MD Re09/15/24 Status: [facility] Location: [facility] Disch: ----- ------- SPEC : [id number] RECD: 09/15/24 STATUS: BERTA VAZ NUM: [id number] OWEN: 09/15/24-[address]: Ellie Gan MD ENTERED: 09/15/24 SP TYPE: Surgical OTHR DR: Cristian Chacon MD ORDERED: HE Stain/3, Gross Micro L4, IHC, Special st. 2, H. pylori, AB/PAS Diagnosis Stomach, biopsy: Gastric antral mucosa with mild reactive gastropathy; negative for Helicobacter pylori, intestinal metaplasia and dysplasia. Clinical History Pre-Op Dx: Dysphagia, unspecified Post-Op Dx: Gastritis, esophagitis, pyloric esophageal stricture Microscopic Description A. Microscopic sections examined. No metaplastic changes are seen, supported by AB/PAS stains (A); no Helicobacter organisms are seen, supported by H. pylori immunostain (A). Material Received Gastric bx's Gross Description Received in formalin labeled gastric bx's are two castaneda-pink irregular tissue fragments each measuring 0.25 cm, submitted in toto in a cassette labeled A. CEDS Special stains ordered and performed: AB/PAS on A; immunostain for H. pylori on A. IHC S/NG Disclaimer NOTE: Unless otherwise stated, all tissue is formalin-fixed and paraffin-embedded. Some or all of the immunohistochemical tests reported herein may have been developed and their performance characteristics determined by [facility]. They have not been cleared or approved by the U.S. Food and Drug Administration (FDA). However, the FDA has determined that such clearance or approval is not necessary. This laboratory is certified under the Clinical Laboratory Improvement Amendments of 1988 (CLIA) as qualified to perform high complexity clinical laboratory testing. Copies To: Cristian Chacon MD [address] [address] CONTINUED ON NEXT PAGE ----- ------- Name: Scarlett Liriano Age/Sex: 54/F : 1970 Unit#: [id number] Attend Dr: Ellie Gan MD Re09/15/24 Status: [facility] Location: [facility] Disch: ----- ------- SPEC : [id number] RECD: 09/15/24 STATUS: BERTA VAZ NUM: [id number] OWEN: 09/15/[address] [facility] [address]: Ellie Gan MD ENTERED: 09/15/24 SP TYPE: Surgical OTHR DR: Cristian Chacon MD ORDERED: HE Stain/3, Gross Micro L4, IHC, Special st. 2, H. pylori, AB/PAS Copies To: (Continued) Ellie Gan MD [facility] [address] [place] [address] ----- ------- Signed (signature on file) Jenelle Adan MD 09/16/24 0738 ----- ------- END OF REPORT us Generic External Data Provider LAB BLOOD ORDERAB LES Final Result [facility] [address] [place] [address] [phone] * Glucose, Whole Blood (09/15/2024 9:40 AM EDT) Glucose, Whole Blood 99 60 - 115 mg/dL [facility] Comment:METER #: [id number] 09/15/2024 9:40 AM EDT 09/15/2024 9:44 AM EDT us Generic External Data Provider LAB BLOOD ORDERAB LES Final Result [facility] [address] [place] [address] [phone] * Pulmonary function testing (09/06/2024 1:14 PM EDT) Historical Provider MD PFT ORDERABLES Final Res ult * BI Mammogram Screening Tomosynthesis Bilateral (05/27/2023 9:10 AM EDT) Anatomical Region Laterality Modality Breast Bilateral Mammography 05/27/2023 9:10 AM EDT Narrative 06/23/2023 5:53 AM EDT [facility] [address] [place] [address] Mammography Report Signed Patient: Scarlett Liriano MR#: [id number] : 1970 Acct:[id number] Age/Sex: 52 / F ADM Date: 05/27/23 Loc: HO.MAMMO Attending Dr: Cristian Martinez MD Ordering Physician: Cristian Chacon MD Res ults: 1Negative Date of Service: 05/27/23 Follow Up: 1 Year From Orig inal Mammogram Procedure(s): MM tomosynthesis screening BI Accession Number(s): [id number] cc: Cristian Chacon MD EXAMINATION: MM SCREENING [...] in OV> 06/23/23 0549 DD/ 0910 TD/TT: Master Black Belt: Procedure Note Donotuseinterpreter, Image - 06/23/2023 [facility] [address] [place], [place] [address] Mammography Report Signed Patient: Scarlett LirianoMR#: [id number] : 1970Acct:[id number] Age/Sex: 52 / FADM Date: 05/27/23 Loc: HO.MAMMO Attending Dr: Cristian Martinez MD Ordering Physician: Cristian Chacon ults: 1Negative Date of Service: 05/27/23Follow Up: 1 Year From Orig inal Mammogram Procedure(s): MM tomosynthesis screening BI Accession Number(s): [id number] cc: Cristian Chacon MD EXAMINATION: MM SCREENING [...] in OV> 06/23/23 0549 DD/ 0910 TD/TT: Master Black Belt: Cristian Martinez MD IMG BI PROCEDURES Final Result * HM PAP/HPV (04/17/2022 3:44 PM EST) Historical Provider HEALTH MAINTENANCE Final Result from Last 3 Months or Most Recently Relevant to Health Maintenance Insurance C3 Care Teams Blow Molder Relationship Specialty Start Date End Date WylieCristian Cook MD [address] [place] [address] PCP - General Internal Medicine 03/17/19 Ivy Payne Swing Type Lathe OperatorDie Cast Die Maker 11/26/23
--- OUTSIDE RECORDS SUMMARY | 2024-12-01 10:05 | XMS_ITS | Encounter Summary ---
Author Organization [employer] [facility] Address [address] [place] [address] 7 [place] [address] Care Team Providers Care Manager Title Name Role Phone Cristian Chacon MD Primary [...] filedocumented in this encounter Care Teams Manager Title Relationship Specialty Start Date End Date Cristian Chacon MD [address] [place] [address] PCP - General Internal Medicine 03/17/19 Ivy Payne Assistant Manager/EmbalmerPublishing Specialist 03/03/23 11/25/23 Ivy Payne Flat Sorter ProcessorPublishing Specialist 11/26/23 documented as of this encounter
--- OUTSIDE RECORDS SUMMARY | 2024-12-01 10:05 | XMS_ITS | Encounter Summary ---
Author Organization [facility] Address [address] [place] [address] Care Team Providers Care Enterprise Software Developer Name Role Phone Cristian Chacon MD Primary Care Prov ider Reason for Visit * Reason Onset Date Comments Rosacea 08/09/2021 Pt is calling to schedule a new pt apt for rosacea. Please call pt at [phone] Encounter Details Date Type Department Care Team ([facility] Contact Info) Description 08/09/2021 Telephone [facility] Central Scheduling Department [address] [place] [address] Telephone Intake, Staff Cash (Pt is calling to schedule a new pt apt for rosacea. Please call pt at [phone]) Social History Tobacco Use Types Packs/Day Years [...] 10:51 AM EDT Documentation purpose. lvm at [phone]. Pt is calling to schedule a new pt apt for rosacea. Please call pt at [phone] documented in this encounter Plan of Treatment Upcoming Encounters Date Type Department Care Team ([facility] Contact Info) Description 12/05/2024 10:40 AM EDT Follow-Up [facility] [address] [place] [address] Cane Splicer: Alonzo Baez MD [address] [place] [address] 12/06/2024 1:00 PM EDT Follow-Up [facility] [address] [place] [address] Cane Splicer: Dennis Laguna MD [address] [place] [address] 12/06/2024 1:30 PM EDT Follow-Up [facility] [address] [place] [address] Cane Splicer: Morales Ramsey MD [address] [place] [address] documented as of this encounter Visit Diagnoses Not on filedocumented in this encounter Care Teams Enterprise Software Developer Relationship Specialty Start Date End Date Cristian Chacon MD [address] [place] [address] PCP - General 06/04/22 documented as of this encounter
--- OUTSIDE RECORDS SUMMARY | 2024-12-01 10:05 | XMS_ITS | Encounter Summary ---
Author Organization [employer] Address [address] [facility] [address] 7t [place] [address] Care Team Providers Care Glass Furnace Operator Name Role Phone Cristian Chacon MD Primary Care Prov ider Encounter Details Date Type Department Care Team (Late st Contact Info) Description 03/22/2024 Orders Only [facility] MED [facility] PEDS [address] [place], [place] [phone] Provider, MD Roderick Social History Tobacco Use [...] documented as of this encounter Care Teams Glass Furnace Operator Relationship Specialty Start Date End Date Cristian Chacon MD [address] [place] [address] PCP - General Internal Medicine 03/17/19 Ivy Payne Accreditation CoordinatorTraffic Division Commanding Officer 11/26/23 documented as of this encounter
--- OUTSIDE RECORDS SUMMARY | 2024-12-01 10:05 | XMS_ITS | Clinical Summary ---
Author Organization [facility] Address [address] [place] [address] Care Team Providers Care Veterinary Practice Manager Name Role Phone Eduarda Villeda MD Primary Care Provider [phone] Medications No known medications Social History Tobacco [...] of 2) 2018 COVID-19 Vaccine ( season) 2024 03/22/2021, 07/22/2020, 07/01/2020 Influenza (#1) 2024 12/06/2019, 0807/2018, 12/14/2017, Additional history exists HPV Vaccine (No Doses Required) Completed Hep A Aged Out No longer eligi ble based on patient's age to complete this topic Hib Aged Out No longer eligi ble based on patient's age to complete this topic Meningococcal ACWY Aged Out No longer eligible based on patient's age to complete this topic Insurance MEDICAID Care Teams Veterinary Practice Manager Relationship Specialty Start Date End Date Eduarda Villeda MD [address] [address] PCP - General Internal Medicine 05/12/18
--- OUTSIDE RECORDS SUMMARY | 2024-12-01 10:05 | XMS_ITS | Encounter Summary ---
Author Organization [employer] Address [address] [facility] 7t [place] [address] Care Team Providers Care Housekeeping Attendant Name Role Phone Cristian Chacon MD Primary Care Prov ider Encounter Details Date Type Department Care Team ([facility] Contact Info) Description 09/07/2024 Orders Only [facility] [address] [place], [place] [phone] Provider, MD Roderick Social History Tobacco Use [...] Priority Date/Time Associated Diagnosis Comments PULMONARY FUNCTION TESTING Routine 09/06/2024 1:14 PM EDT documented in this encounter Results * Pulmonary function testing (09/06/2024 1:14 PM EDT) us Historical Provider MD PFT ORDERABLES Final Res ult documented in this encounter Visit Diagnoses Not on filedocumented in this encounter Additional Health Concerns Assessment Noted Time PHQ-9 Depression Total Score: 16 024 1:19 PM EDT documented as of this encounter Care Teams Housekeeping Attendant Relationship Specialty Start Date End Date Cristian Chacon MD [address] [place] [address] PCP - General Internal Medicine 03/17/19 Ivy Payne Java ConsultantJewelry Facer 11/26/23 documented as of this encounter
--- OUTSIDE RECORDS SUMMARY | 2024-12-01 10:05 | XMS_ITS | Encounter Summary ---
Author Organization [employer] Address [address] [facility] 7t [place] [address] Care Team Providers Care Cap And Hat Production Supervisor Name Role Phone Cristian Chacon MD Primary Care Prov ider Encounter Details Date Type Department Care Team ([facility] st Contact Info) Description 12/22/2023 Orders Only [facility] CH[facility] MED & PEDS [address] [place], [place] [phone] Cristian Chacon MD [address] [place] [address] Social History Tobacco Use Types Packs/Day Years [...] 1:19 PM VICTORIAT Zoey Mae M A Feeling tired or having [...] documented as of this encounter Care Teams Cap And Hat Production Supervisor Relationship Specialty Start Date End Date Cristian Chacon MD [address] [place] [address] PCP - General Internal Medicine 03/17/19 Ivy Payne Nursery ManagerFleet Salesperson 11/26/23 documented as of this encounter
--- OUTSIDE RECORDS SUMMARY | 2024-12-01 10:05 | XMS_ITS | Encounter Summary ---
Author Organization [employer] Address [address] [facility] 7t [place] [address] Care Team Providers Care Vp Training Name Role Phone Cristian Chacon MD Primary Care Prov ider Encounter Details Date Type Department Care Team ([facility] st Contact Info) Description 08/25/2023 Telephone [facility] MED & PEDS [address] [place], [place] [phone] Cristian Chacon MD [address] [place] [address] Social History Tobacco Use Types Packs/Day Years [...] documented as of this encounter Care Teams Vp Training Relationship Specialty Start Date End Date Cristian Chacon MD [address] [place] [address] PCP - General Internal Medicine 03/17/19 vIy Payne Park Services SpecialistCombat Engineer 03/03/23 11/25/23 Ivy Payne General Service OfficerCombat Engineer 11/26/23 documented as of this encounter
--- OUTSIDE RECORDS SUMMARY | 2024-12-01 10:05 | XMS_ITS | Encounter Summary ---
Author Organization [employer] Address [address] [facility] 7t [place] [address] Care Team Providers Care Truck And Transport Mechanic Name Role Phone Cristian Chacon MD Primary Care Prov ider Reason for Visit * Reason Comments Med Change Request Encounter Details Date Type Department Care Team ([facility] Contact Info) Description 08/31/2023 Refill [facility] MED & PEDS [address] [place], [place] [phone] Cristian Chacon MD [address] [place] [address] Social History Tobacco Use Types Packs/Day Years [...] documented as of this encounter Care Teams Truck And Transport Mechanic Relationship Specialty Start Date End Date Cristian Chacon MD [address] [place] [address] PCP - General Internal Medicine 03/17/19 Ivy Payne Rehab AideCloth Printing Inspector 03/03/23 11/25/23 Ivy Payne Naphthalene Operator HelperCloth Printing Inspector 11/26/23 documented as of this encounter
--- OUTSIDE RECORDS SUMMARY | 2024-12-01 10:05 | XMS_ITS | Encounter Summary ---
Author Organization [employer] Address [address] [facility] 7t [place] [address] Care Team Providers Care Certified Recreational Therapist Name Role Phone Cristian Chacon MD Primary Care Prov ider Reason for Visit * Reason Comments Med Refill Encounter Details Date Type Department Care Team ([facility] Contact Info) Description 11/30/2024 Refill [facility] CH[facility] MED & PEDS [address] [place], [place] [phone] Cristian Chacon MD [address] [place] [address] Upper back pain Social History Tobacco Use Types Packs/Day Years [...] as of this encounter Visit Diagnoses Diagnosis Upper back pain Unspecified backache documented in this encounter Additional Health Concerns Assessment Noted Time PHQ-9 Depression Total Score: 16 024 1:19 PM EDT documented as of this encounter Care Teams Certified Recreational Therapist Relationship Specialty Start Date End Date Cristian Chacon MD [address] [place] [address] PCP - General Internal Medicine 03/17/19 Ivy Payne Mid TeacherIndirect Sales Representative 11/26/23 documented as of this encounter
--- OUTSIDE RECORDS SUMMARY | 2024-12-01 10:05 | XMS_ITS | Encounter Summary ---
Author Organization [employer] [facility] Address [facility] [address] [address] Phone Care Team Providers Care Worldwide Chief Creative Officer Name Role Phone Cristian Chacon MD Primary Care Prov ider Reason for Visit * Reason Onset Date Comments Medication Refill 09/14/2024 Encounter Details Date Type Department Care Team ([facility] st Contact Info) Description 09/14/2024 Telephone [facility] [address] [place] [address] Jenifer [email or web address] Medication Refill Social History Tobacco Use Types [...] on file documented as of this encounter Progress Notes * Lior Hayes - 09/14/2024 12:44 PM EDT Called and spoke with patients pharmacy as patient has additional refills on file. Pharmacy too refill. Pharmacy also indicated that this medication is not eligible for automatic refill due to insurance requirements. * Jenifer Calderón - 09/14/2024 8:44 AM EDT Patient called in requesting a refill on the medication Trulicity. Patient is asking for this medication to be a automatic refill. Please contact and advise. Central Support Pourer (Please do not reply to this user; this inbox is not monitored.) Thank you. documented in this encounter Plan of Treatment Upcoming Encounters Date Type Department Care Team (Late st Contact Info) Description 01/25/2025 11:10 AM EST Office Visit [facility] [address] [place] [address] Musa Mcdowell [address] [address] 02/13/2025 8:30 AM EST Office Visit [facility] [address] [place] [address] Musa Mcdowell [address] [address] 03/14/2025 10:00 AM EST Office Visit [facility] Allergy [facility] Critical [facility] Medicine [address] [place] [address] Blayne Kam MD [address] [place] [address] documented as of this encounter Visit Diagnoses Not on filedocumented in this encounter Care Teams Worldwide Chief Creative Officer Relationship Specialty Start Date End Date Cristian Chacon MD [address] [place] [address] PCP - General Internal Medicine 10/23/20 documented as of this encounter Additional Source Comments The information contained in this document represents components of the legal health record. It is not the complete legal health record.[facility]
--- OUTSIDE RECORDS SUMMARY | 2024-12-01 10:05 | XMS_ITS | Encounter Summary ---
Author Organization [employer] Address [address] [facility] [address] 7[address] [place] [address] Care Team Providers Care Carpet Finishing Supervisor Name Role Phone Cristian Chacon MD Primary Care Prov ider Encounter Details Date Type Department Care Team (Late st Contact Info) Description 02/19/2024 Orders Only [facility] CHC MED & PEDS [address] [place] [address] Provider, MD Roderick Social History Tobacco Use [...] documented as of this encounter Care Teams Carpet Finishing Supervisor Relationship Specialty Start Date End Date Cristian Chacon MD [address] [place] [address] PCP - General Internal Medicine 03/17/19 Ivy Payne Auto StriperManager State 11/26/23 documented as of this encounter
--- OUTSIDE RECORDS SUMMARY | 2024-12-01 10:05 | XMS_ITS | Encounter Summary ---
Author Organization [employer] Address [address] [facility] [address] [place] [address] Care Team Providers Care Racetrack Steward Name Role Phone Cristian Chacon MD Primary Care Prov ider Encounter Details Date Type Department Care Team (Late st Contact Info) Description 07/01/2024 Orders Only [facility] CH[facility] MED & PEDS [address] [place] [address] Provider, MD Roderick Social History Tobacco Use [...] the past 12 months, has t he [employer], [employer], oil or water [employer] threatened to shut off services in your [...] documented as of this encounter Care Teams Racetrack Steward Relationship Specialty Start Date End Date Cristian Chacon MD [address] [place] [address] PCP - General Internal Medicine 03/17/19 Ivy Payne Cleaner GreaserAutomotive Service Manager 11/26/23 documented as of this encounter
--- OUTSIDE RECORDS SUMMARY | 2024-12-01 10:05 | XMS_ITS | Encounter Summary ---
Author Organization [employer] Address [address] [facility] 7 [place] [address] Care Team Providers Care Refrigerated National Truck Driver Name Role Phone Cristian Chacon MD Primary Care Prov ider Reason for Visit * Reason Onset Date Comments Nurse Triage 11/18/2022 Encounter Details Date Type Department Care Team ([facility] st Contact Info) Description 11/18/2022 Telephone [facility] MED [facility] PEDS [address] [place], [place] [phone] Cristian Chacon MD [address] [place] [address] Nurse Triage Social History Tobacco Use Types [...] accepted this outcome Please contact pt at [phone] Swedish Speaker documented in this encounter Plan of Treatment Not on file documented as of this encounter Visit Diagnoses Not on filedocumented in this encounter Care Teams Refrigerated National Truck Driver Relationship Specialty Start Date End Date Cristian Chacon MD [address] [place] [address] PCP - General Internal Medicine 03/17/19 Ivy Payne NurseMachine Technician 03/03/23 11/25/23 Ivy Payne Gem ExpertMachine Technician 11/26/23 documented as of this encounter
--- OUTSIDE RECORDS SUMMARY | 2024-12-01 10:05 | XMS_ITS | Encounter Summary ---
Author Organization [employer] Address [address] [facility] 7t [place] [address] Care Team Providers Care Wet Plant Operator Name Role Phone Cristian Chacon MD Primary Care Prov ider Encounter Details Date Type Department Care Team ([facility] Contact Info) Description 11/19/2023 Orders Only [facility] [address] [place], [place] [phone] Provider, MD Roderick Social History Tobacco Use [...] documented as of this encounter Care Teams Wet Plant Operator Relationship Specialty Start Date End Date Cristian Chacon MD [address] [place] [address] PCP - General Internal Medicine 03/17/19 Ivy Payne Track OilerHost Hostess 03/03/23 11/25/23 Ivy Payne Linotype WorkerHost Hostess 11/26/23 documented as of this encounter
--- OUTSIDE RECORDS SUMMARY | 2024-12-01 10:05 | XMS_ITS | Encounter Summary ---
Author Organization [employer] Address [address] [facility] 7 [place] [address] Care Team Providers Care Associate Doctor Name Role Phone Cristian Chacon MD Primary Care Prov ider Reason for Visit * Reason Onset Date Comments Nurse Triage 08/24/2023 Encounter Details Date Type Department Care Team ([facility] st Contact Info) Description 08/24/2023 Telephone C [facility] [address] [place], [place] [phone] Cristian Chacon MD [address] [place] [address] Nurse Triage Social History Tobacco Use Types [...] 08/24/2023 10:26 AM EDT Triage call with [employer] [id number] Pt reports rash has developed on upper, inner thighs and has spread to private area . Pt describesrash as red, bumpy and itchy. Pt reports some irritation vaginally and burning with urination. Burning is described as occurring when urine contacts rash but, may have other urinary symptoms as well.This is not clear to triage nurse. Advised Pt to come to [facility] today at 230pm. Pt agrees [...] accepted this outcome Please contact pt at [phone] (secretary board of commissioners) documented in this encounter Plan of Treatment Not on file documented as of this encounter Visit Diagnoses Not on filedocumented in this encounter Additional Health Concerns Assessment Noted Time PHQ-9 Depression Total Score: 14 024 9:49 AM EST documented as of this encounter Care Teams Associate Doctor Relationship Specialty Start Date End Date Cristian Chacon MD [address] [place] [address] PCP - General Internal Medicine 03/17/19 Ivy Payne Fulfillment RepresentativeMembership Solicitor 03/03/23 11/25/23 Ivy Payne Special Education SecretaryMembership Solicitor 11/26/23 documented as of this encounter
--- OUTSIDE RECORDS SUMMARY | 2024-12-01 10:06 | XMS_ITS | Clinical Summary ---
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 02/18/2017 Hypothyroidism 02/18/2017 Surgical History Surgery Date Site/Laterality Comments CARPAL TUNNEL RELEASE Left CATARACT EXTRACTION SECTION HYSTERECTOMY CYST REMOVAL on foot BLADDER bladder mesh BREAST REDUCTION Medical History Medical History Date Comments Fibromyalgia Asthma Diabetes mellitus ([facility] V24, [facility] V28) Hypertension Migraine Lupus (systemic lupus erythematosus) ([facility] V2 4, [facility] V28) GERD (gastroesophageal reflux disease) Gastritis Anxiety [...] F) 06/30/2024 3:57 PM EDT Respiratory Rate 06/30/2024 3:57 PM EDT Oxygen Saturation 97% 06/30/2024 3:57 PM EDT Inhaled Oxygen Concentration - - Weight 90.7 kg (200 lb) 06/30/2024 1:22 PM EDT Height 157.5 cm (5' 2 ) 06/30/2024 1:22 PM EDT Body Mass Index 36.58 06/30/2024 1:22 PM EDT Plan of Treatment Health Maintenance Due Date Last Done Comments Colorectal Cancer Screening: Colonoscopy 1968 Diabetes: Annual Foot Exam 1978 Diabetes: Annual Retina Eye Exam 1978 Hepatitis B Vaccines (1 of 3 - 19+ 3-dose series) 07/20/1987 Pneumococcal Vaccine: 50+ Years (3 of 3 - PCV20 or PCV21) 2018 10/14/2010, 10/14/2010 Zoster Vaccines (2 of 2) 06/08/2019 04/13/2019 Breast Cancer Screening 02/28/2020 02/27/2018 DTaP,Tdap,and Td Vaccines (2 - Td or Tdap) 10/14/2020 10/14/2010 Social Influencers of Health Screening 02/02/2022 Depression Screening 03/02/2024 Diabetes: Blood Sugar Control Test (HGBA1C) 05/17/2024 11/18/2023 Influenza Vaccine (#1) 2024 , 12/11/2022, 01/04/2022, Additional history exists Diabetes: Annual Urine Albumin-Creatinine Ratio (uACR) 04/20/2025 04/20/2024, 04/20/2024, 03/23/2024, Additional history exists Diabetes: Annual GFR (Glomerular Filtration Rate) 06/30/2025 06/30/2024, 05/18/2024, 05/03/2024, Additional history exists Hypertension/CHF/CAD Annual BMP Blood Test 06/30/2025 06/30/2024, 05/18/2024, 05/03/2024, Additional history exists Cholesterol Screening (Lipid Panel) 11/26/2026 11/26/2021, 11/24/2014 RSV Immunization Adult Patients (1 - 1-dose 75+ series) 07/20/2043 HIV Screening Completed 09/29/2013 Hepatitis C Screening Completed 06/04/2022 COVID-19 Vaccine Completed 12/18/2023, 06/2021, 03/22/2021, Additional [...] Date/Time Associated Diagnosis Comments COMPREHENSIVE METABOLIC PANEL STAT 06/30/2024 1:34 PM EDT DIANE SCREENING DIGITAL Routine 02/27/2018 5:16 PM EST Encounter for screening mammogram for malignant neoplasm of breast from Last 3 Months or Most Recently Relevant to Health Maintenance Results * (ABNORMAL) Comprehensive metabolic panel (06/30/2024 1:34 PM EDT) Sodium 137 133 - 145 mmol/L LAB CHEMISTRY METHOD 06/30/2024 3:09 PM EDT [facility] Potassium 4.7 3.5 - 5.5 mmol/L LAB CHEMISTRY METHOD 06/30/2024 3:09 PM EDT [facility] Chloride 105 96 - 110 mmol/L LAB CHEMISTRY METHOD 06/30/2024 3:09 PM T [facility] CO2 26 21 - 32 mmol/L LAB CHEMISTRY METHOD 06/30/2024 3:09 PM EDT [facility] Anion Gap 6 3 - 11 LAB CHEMISTRY METHOD 06/30/2024 3:09 PM [facility] Glucose 193(H) 70 - 100 mg/dL LAB CHEMISTRY METHOD 06/30/2024 3:09 PM [facility] BUN 15 5 - 25 mg/dL LAB CHEMISTRY METHOD 06/30/2024 3:09 PM [facility] Creatinine 0.76 0.50 - 1.10 mg/dL LAB CHEMISTRY METHOD 06/30/2024 3:09 PM [facility] eGFR 93 >=60 mL/min/1. 73m2 LAB CHEMISTRY METHOD 06/30/2024 3:09 PM [facility] Comment:Calculation based on the Chronic Kidney Disease Epidemiology Collaboration (CKD-EPI) equation refit without adjustment for race. BUN/Creatinine Ratio 19.7 LAB CHEMISTRY METHOD 06/30/2024 3:09 PM [facility] Calcium 8.7 8.5 - 10.5 mg/dL LAB CHEMISTRY METHOD 06/30/2024 3:09 PM [facility] AST (SGOT) 15 10 - 42 unit/L LAB CHEMISTRY METHOD 06/30/2024 3:09 PM [facility] ALT (SGPT) 17 10 - 60 unit/L LAB CHEMISTRY METHOD 06/30/2024 3:09 PM [facility] Alkaline Phosphatase 49 42 - 121 unit/L LAB CHEMISTRY METHOD 06/30/2024 3:09 PM [facility] Total Protein 7.0 6.0 - 8.0 g/dL LAB CHEMISTRY METHOD 06/30/2024 3:09 PM [facility] Albumin 3.0(L) 3.2 - 5.0 g/dL LAB CHEMISTRY METHOD 06/30/2024 3:09 PM [facility] Total Bilirubin 0.4 0.0 - 1.4 mg/dL LAB CHEMISTRY METHOD 06/30/2024 3:09 PM EDT [facility] Blood Venous blood specimen / Unknown Venipuncture / Unknown 06/30/2024 1:34 PM EDT 06/30/2024 2:20 PM EDT us Jaime Erickson MD LAB BLOOD ORDERABLES Final Result [facility] [address] [place] [address], * DIANE SCREENING DIGITAL (02/27/2018 5:16 PM EST) Anatomical Region Laterality Modality Mammography 02/24/2018 10:4 4 AM EST Narrative 02/27/2018 5:16 PM EST [facility] Diagnostic Imaging Department [address] [place] [address] Patient: SCARLETT NEUMANN.O.B./Age/Sex: 1970 - 47 - F Unit#: [id number] [facility] Mnemonic/Ordering Site: DIGSC/SPMAM Ordering Physician: GABRIELA VILLEDA MD [facility] Screening Digital - 02/27/18 - 0758 INDICATION: SCREENING COMPARISON: [facility] mammograms dating back to 08/05/2012 FINDINGS: CC and MLO views of the breasts were obtained, using full field digital mammography with 3D tomosynthesis views in the MLO projection. Computer aided detection with the iCAD SecondLook 7.2-H was employed. History of reduction mammoplasty [...] target date for the next mammogram. G0202 / [id number]) , [id number] Dictating Physician: YONG WEATHERS MD Electronically Signed by: YONG WEATHERS MD Dic Date/Time: 02/27/181711 Sign date/Time: 02/27/181715 Procedure Note Yong Weathers MD - 02/18/2022 [facility] Diagnostic Imaging Department [address] [place] [id number] Patient: SCARLETT NEUMANN D.O.B./Age/Sex: 1970 - 47 - F Unit#: [id number] Location/Status: [facility] Mnemonic/Ordering Site: [facility] Ordering Physician: GABRIELA VILLEDA MD [facility] Screening Digital - 02/27/18 - 0758 INDICATION: SCREENING COMPARISON: [facility] mammograms dating back to 08/05/2012 FINDINGS: CC and MLO views of the breasts were obtained, using full field digital mammography with 3D tomosynthesis views in the MLO projection. Computeraided detection with the SafeTacMag 7.2-H was employed. History of reduction mammoplasty [...] target date for the next mammogram. [id number] [id number]) , [id number] Dictating Physician: YONG WEATHERS MD Electronically Signed by: YONG WEATHERS MD Dic Date/Time: 02/27/181711 Sign date/Time: 02/27/181715 Gabriela Villeda MD IMG BI PROCEDURES Final R esult from Last 3 Months or Most Recently Relevant to Health Maintenance Insurance MEDICAID - [place] Care Teams Gift Packer Relationship Specialty Start Date End Date Cristian Chacon [address] [place] [address] PCP - General Internal Medicine 10/17/20
--- OUTSIDE RECORDS SUMMARY | 2024-12-01 10:06 | XMS_ITS | Encounter Summary ---
Author Organization [facility] [facility] Address [address] [place] [address] 7 [place] [address] Care Team Providers Care Jig Worker Name Role Phone Cristian Chacon MD [...] on filedocumented in this encounter Care Teams Jig Worker Relationship Specialty Start Date End Date Cristian Chacon MD [address] [place] [address] PCP - General Internal Medicine 03/17/19 Ivy Payne Scoring Machine OperatorSpeech Pathology Assistant 03/03/23 11/25/23 Ivy Payne Reactor Fueling SupervisorSpeech Pathology Assistant 11/26/23 documented as of this encounter
--- OUTSIDE RECORDS SUMMARY | 2024-12-01 10:06 | XMS_ITS | Encounter Summary ---
Author Organization [employer] Address [address] [facility] 7 [place] [address] Care Team Providers Care Mushroom Grower Name Role Phone Cristian Chacon MD Primary Care Prov ider Reason for Visit * Reason Onset Date Comments New med script 04/01/2022 Encounter Details Date Type Department Care Team ([facility] st Contact Info) Description 04/01/2022 Telephone [facility] [address] [place], [place] [phone] Cristian Chacon MD [address] [place] [address] New med script Social History Tobacco Use [...] on filedocumented in this encounter Care Teams Mushroom Grower Relationship Specialty Start Date End Date Cristian Chacon MD [address] [place] [address] PCP - General Internal Medicine 03/17/19 Ivy Payne Municipal Services ManagerCommercial Coordinator 03/03/23 11/25/23 Ivy Payne Tube Making Machine OperatorCommercial Coordinator 11/26/23 documented as of this encounter
--- OUTSIDE RECORDS SUMMARY | 2024-12-01 10:06 | XMS_ITS | Clinical Summary ---
Author Organization [facility] Address [address] [place] [address] Care Team Providers Care Snuff Packing Machine Operator Name Role Phone Unavailable Primary Care Provider [...]
--- OUTSIDE RECORDS SUMMARY | 2024-12-01 10:08 | XMS_ITS | Encounter Summary ---
Author Organization [employer] Address [address] [facility] 7t [place] [address] Care Team Providers Care Procedures Rn Name Role Phone Cristian Chacon MD Primary Care Prov ider Reason for Visit * Reason Comments Med Refill Encounter Details Date Type Department Care Team ([facility] Contact Info) Description 02/27/2024 Refill [facility] MED & PEDS [address] [place], [place] [phone] Cristian Chacon MD [address] [place] [address] Social History Tobacco Use Types Packs/Day Years [...] documented as of this encounter Care Teams Procedures Rn Relationship Specialty Start Date End Date Cristian Chacon MD [address] [place] [address] PCP - General Internal Medicine 03/17/19 Ivy Payne Padded Box SewerBiofuels Production Technician 11/26/23 documented as of this encounter
== END 2024-12-01 10:39 | disposition home or self-care (01) ==
LOC: HO.HSMS 09:14
PROVIDERS: PCP Internal Medicine; Visit Provider Nurse Practitioner Family
DX: G43.009 Migraine without aura, not intractable, without status migrainosus (principal); G51.32 Clonic hemifacial spasm, left; G80.9 Cerebral palsy, unspecified
CPT/HCPCS: 99214

== ENCOUNTER → 2024-12-01 09:14 | Outpatient (BNVA) | payer MEDICAID, SELFPAY | PROVIDERS: PCP Internal Medicine; Visit Provider Nurse Practitioner Family | DX: G43.009 Migraine without aura, not intractable, without status migrainosus (principal); G51.32 Clonic hemifacial spasm, left; G80.9 Cerebral palsy, unspecified | CPT/HCPCS: 99212 ==

== ENCOUNTER 2025-01-25 08:36 | Day surgery (SDC) | payer MEDICAID, SELFPAY ==
--- OUTSIDE RECORDS SUMMARY | 2024-12-26 16:06 | XMS_ITS | Encounter Summary ---
Author Organization [employer] Address [address] [facility] 7t [place] [address] Care Team Providers Care Infant And Toddler Teacher Name Role Phone Cristian Chacon MD Primary Care Prov ider Encounter Details Date Type Department Care Team ([facility] Contact Info) Description 01/11/2024 Orders Only [facility] [address] [place], [place] [phone] Provider, MD Roderick Social History Tobacco Use [...] documented as of this encounter Care Teams Infant And Toddler Teacher Relationship Specialty Start Date End Date Cristian Chacon MD [address] [place] [address] PCP - General Internal Medicine 03/17/19 Ivy Payne Gallery Or Museum AttendantResource Efficiency Manager 11/26/23 documented as of this encounter
--- OUTSIDE RECORDS SUMMARY | 2024-12-26 16:06 | XMS_ITS | Encounter Summary ---
Author Organization [employer] Address [address] [facility] 7t [place] [address] Care Team Providers Care Roll Up Helper Name Role Phone Cristian Chacon MD Primary Care Prov ider Encounter Details Date Type Department Care Team ([facility] st Contact Info) Description 09/04/2023 Orders Only [facility] MED & PEDS [address] [place], [place] [phone] Cristian Chacon MD [address] [place] [address] Social History Tobacco Use Types Packs/Day Years [...] documented as of this encounter Care Teams Roll Up Helper Relationship Specialty Start Date End Date Cristian Chacon MD [address] [place] [address] PCP - General Internal Medicine 03/17/19 Ivy Payne Track Laying Equipment OperatorDirector Diversity 03/03/23 11/25/23 Ivy Payne Space TechnologistDirector Diversity 11/26/23 documented as of this encounter
--- OUTSIDE RECORDS SUMMARY | 2024-12-26 16:06 | XMS_ITS | Encounter Summary ---
Author Organization [facility] Address [address] [place] [address] Phone Care Team Providers Care Mucker Operator Name Role Phone Susan Vogt MD Primary Care Provider + [phone] Cristian Chacon MD Primary Care Prov ider Reason for Visit * Reason Comments Medication Refill Encounter Details Date Type Department Care Team (Late st Contact Info) Description 07/16/2020 Refill [facility] [address] [place] [address] Musa Mcdowell DO [address] [place] [address] [email or web address] Medication Refill Social History Tobacco Use Types [...] Care Team (Late st Contact Info) Description 02/13/2025 8:30 AM EST Office Visit [facility] [address] [place] [address] Musa Mcdowell DO [address] [place] [address] 03/14/2025 10:00 AM EST Office Visit [facility] Pulmonary, Allergy and Critical Care Medicine [address] [facility] [address] Blayne Kam MD [address] [place] [address] documented as of this encounter Visit Diagnoses Diagnosis 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 It is not the complete legal health record.[facility]
--- OUTSIDE RECORDS SUMMARY | 2024-12-26 16:06 | XMS_ITS | Encounter Summary ---
Author Organization [employer] Address 75 [facility] 7t [place] [address] Care Team Providers Care Building Code Inspector Name Role Phone Cristian Chacon MD Primary Care Prov ider Encounter Details Date Type Department Care Team ([facility] st Contact Info) Description 12/22/2023 Orders Only [facility] MED & PEDS [address] [place], [place] [phone] Cristian Chacon MD [address] [place] [address] Social History Tobacco Use Types Packs/Day Years [...] things Nearly every day 12/22/2023 1:19 PM EDT Freedom Mae [place] Feeling down, depressed, or hopeless [...] 12/22/2023 1:19 PM EDT Zoey Mae [place] Feeling bad about yourself - or that you are a failure or have let yourself or your family down Not at all 12/22/2023 1:19 PM VICTORIAT Zoey Mae M A Trouble concentrating on things, such [...] documented as of this encounter Care Teams Building Code Inspector Relationship Specialty Start Date End Date Cristian Chacon MD [address] [place] [address] PCP - General Internal Medicine 03/17/19 Ivy Payne Certified Medical AsstCounter Person 11/26/23 documented as of this encounter
--- OUTSIDE RECORDS SUMMARY | 2024-12-26 16:06 | XMS_ITS | Encounter Summary ---
Author Organization [employer] Address [address] [facility] 7t [place] [address] Care Team Providers Care Lift Team Technician Name Role Phone Cristian Chacon MD Primary Care Prov ider Encounter Details Date Type Department Care Team ([facility] st Contact Info) Description 08/25/2023 Telephone [facility] MED & PEDS [address] [place], [place] [phone] Cristian Chacon MD [address] [place] [address] Social History Tobacco Use Types Packs/Day Years [...] documented as of this encounter Care Teams Lift Team Technician Relationship Specialty Start Date End Date Cristian Chacon MD [address] [place] [address] PCP - General Internal Medicine 03/17/19 Ivy Payne Accounting ProfessionalDurability Engineer 03/03/23 11/25/23 Ivy Payne Director Of RoomsDurability Engineer 11/26/23 documented as of this encounter
--- OUTSIDE RECORDS SUMMARY | 2024-12-26 16:06 | XMS_ITS | Encounter Summary ---
Author Organization [email or web address] Address [address] [facility] [address] 7t [place] [address] Care Team Providers Care Dormitory Counselor Name Role Phone Cristian Chacon MD Primary Care Prov ider Encounter Details Date Type Department Care Team (Late st Contact Info) Description 07/01/2024 Orders Only [facility] MED & PEDS [address] [place] [address] Provider, MD Roderick Social History Tobacco Use [...] the past 12 months, has t he [facility], [email or web address], oil or [employer] threatened to shut off services in your [...] documented as of this encounter Care Teams Dormitory Counselor Relationship Specialty Start Date End Date Cristian Chacon MD [address] [place] [address] PCP - General Internal Medicine 03/17/19 Ivy Payne Coil Winding Machines Set Up MechanicManufacturing Manager 11/26/23 documented as of this encounter
--- OUTSIDE RECORDS SUMMARY | 2024-12-26 16:06 | XMS_ITS | Clinical Summary ---
Author Organization [employer] Address 75 [facility] 7t [place] [address] Care Team Providers Care Hoisting Engineer Pile Driving Name Role Phone Cristian Chacon MD Primary [...] ОЛЕГ TABLETA TODOS LOS HARRIS EN LA TOPSFIELDANA 90 tablet 3 024 Active furosemide (Lasix) [...] VECES AL COLIN 60 tablet 024 Active triamcinolone (Kenalog) 0.1 % cream [...] needed for wheezing. 75 mL 11 025 02/04/ 2026 Active losartan (Cozaar) 25 MG tabletIndications :Primary hypertension TOME 1 TABLETA POR VIA ORAL TODOS [place] HARR[place] EN LA MANANA 90 tablet 3 Active Blood Glucose Monitoring Suppl (FreeStyle Lite) w/Device kit 1 Device Once per day. 1 kit Active FREESTYLE LITE test stripIndications: Type 2 diabetes mellitus without complication, without long-term current use of insulin ([facility]) Use to test blood sugar 1 times daily 100 each 12 025 2025 Active Lancets 33G miscIndications:T ype 2 diabetes mellitus without complication, without long-term current use of insulin ([facility]) 1 Units before breakfast. [...] at bedtime. 12 g 11 025 Active naproxen (Naprosyn) 500 MG tabletIndications :Other headache syndrome TAKE 1 TABLET BY MOUTH WITH BREAKFAST AND EVENING MEAL 60 tablet 025 Active diphenhydrAMINE (BENADryl) 25 MG tablet Take 1 tablet (25 mg) by mouth if needed at bedtime for itching. 30 tablet 025 Active lidocaine (Lidoderm) 5 % patchIndications: Upper back pain APPLY 1 PATCH TOPICALLY IN THE MORNING. REMOVE AND DISCARD PATCH WITHIN 12 HOURS OR DIRECTED BY MD Matthews patch 2 025 Active loratadine (Claritin) 10 MG tablet Take 10 mg by mouth. 018 Discontinued(R eorder (will not trigger notification to Pharmacy)) lidocaine (Lidoderm) 5 % patchIndications: Upper back pain APPLY 1 PATCH TOPICALLY IN THE MORNING. REMOVE AND DISCARD PATCH WITHIN 12 HOURS OR DIRECTED BY MD Matthews patch 2 024 2024 Discontinued Active Problems Problem Noted Date [...] rheumatology, er precautions discussed Systemic lupus erythematosus ([facility]) Pre-diabetes 11/10/2023 Assessment & Plan (05/17/2024 2:43 [...] Plan (08/10/2023 4:03 PM EDT): Referral to Audio Visual Arts Director for further evaluation of symptoms. Ordering Stress [...] allergic will prescribe ketotifen, follow up with gas load dispatcher, she has scheduled appointment already Pelvic pain 03/23/2023 Chronic pelvic pain in female 03/17/2023 Assessment & Plan (01/12/2024 6:12 PM EST): Patient wants to be followed at [place], will place referral Upper back pain 01/14/2023 [...] lateral foot pain, she has seen various regroover, she would like another opinion, she will [...] PM EST): Will place refferal to a hospice rn Seborrheic dermatitis 04/10/2022 Assessment & Plan (06/29/2022 [...] to perform daily activities, she currently has PRINT CONTROLLER services but the hours provided are not [...] LESION, MOST LIKELY HEMORRHAGIC OVARIAN CYST. [facility] S/P US PELVIS 07/04/13 DUE PELVIC PAIN. 2.9 X 3.8 X 3 CM LEFT ADNEXAL CYSTIC LESION, MOST LIKELY HEMORRHAGIC OVARIAN CYST. [facility] Left carpal tunnel syndrome 06/22/2013 Vitamin D deficiency disease 02/03/2012 Overview (05/29/2022): Overview: =17. =17. Allergic rhinitis due to allergen 2008 Gastroesophageal reflux disease without esophagi tis 07/13/2007 Anxiety and depression 05/13/2007 Overview (03/07/2022): Overview: F/U [facility] (DR. NANCE). F/U [facility] (DR. NANCE). Hypothyroidism 05/13/2007 Overview (05/29/2022): [...] Insomnia 05/13/2007 Overview (05/29/2022): Overview: F/U AT [facility] (DR. NANCE). F/U AT [facility] (DR. NANCE). Mild persistent asthma 05/13/2007 Assessment & Plan (05/17/2024 2:45 PM EDT): On inhalers, no current exacerbation, continue same therapy Encounters Date Type Department Care Team Description 12/12/2024 Orders Only [facility] [address] [place] [address] Roderick Weiner MD 11/30/2024 Refill [facility] [address] [place] [address] Cristian Chacon MD Upper back pain 11/29/2024 Telephone [facility] [address] [place] [address] Cristian Chacon MD PT1 11/24/2024 Telephone [facility] [address] [place] [address] Cristian Chacon MD 11/21/2024 3:45 PM EDT Office Visit [facility] [address] [place], [place] [phone] Cristian Chacon MD Asthma, unspecified asthma severity, unspecified whether complicated, unspecified whether persistent; Moderate persistent asthma without complication; Other headache syndrome 11/21/2024 Travel 11/07/2024 Telephone [facility] [address] [place] [address] Cristian Chacon MD 11/07/2024 Patient Outreach [facility] [address] [place] [address] Cristian Chacon MD Care Coordination ([facility] Geovanny Parks f/u, program graduation) 11/01/2024 Telephone [facility] [address] [place], [place] [phone] Cristian Chacon MD 10/24/2024 Orders Only [facility] [address] [place] [address] Roderick Weiner MD 10/18/2024 Telephone [facility] [address] [place] [address] Cristian Chacon MD Care Management ([facility]- f/u call lvm) 10/13/2024 Telephone [facility] [address] [place] [address] Cristian Chacon MD R/S APPT 10/04/2024 Telephone [facility] [address] [place] [address] Cristian Chacon MD Care Management ([facility]- f/u call) 10/03/2024 Orders Only [facility] [address] [place] [address] Roderick Weiner MD 09/29/2024 Telephone [facility] [address] [place] [address] Eduarda Villeda MD No Show 09/28/2024 Telephone [facility] [address] [place] [address] Cristian Chacon MD Chart Prep 09/28/2024 Telephone [facility] [address] [place] [address] Cristian Chacon MD Pre-op Exam 09/26/2024 4:00 PM EDT Office Visit [facility] [address] [place] [address] Jeannine Vega FNP Preop examination (Primary Dx); Type 2 diabetes mellitus without complication, without long-term current use of insulin ([facility]) 09/26/2024 Travel from Last 3 Months Immunizations Immunization Administration [...] Screening 07/06/2025 07/06/2024 SDOH Screening 07/18/2025 07/18/2024 Lipid Panel 09/30/2025 09/30/2024, 11/26/2021 Diabetes: Urine Protein Screening 12/12/2025 12/12/2024, 09/30/2024, 04/20/2024, Additional history exists Cervical Cancer Screening 04/17/2027 HPV/Cotest 04/17/2027 Pap [...] Name Priority Date/Time Associated Diagnosis Comments HM DIABETES: URINE PROTEIN SCREENING Routine 12/12/2024 2:[address] CHEST W CONTRAST Routine 10/11/2024 3 :11 PM EDT ALBUMIN/CREATININE RATIO, TIMED URINE Routine 09/30/2024 3:45 PM EDT LIPID PANEL, STANDARD Routine 09/30/2024 3:18 PM EDT THYROID PANEL WITH TSH Routine 3:15 PM EDT HEMOGLOBIN A1C Routine 09/30/2024 2:25 PM EDT POCT GLUCOSE Routine 09/26/2024 4:18 PM EDT Type 2 diabetes mellitus without complication, without long-term current use of insulin ([facility]) POCT GLYCATED HEMOGLOBIN, TOTAL Routine 09/26/2024 4:17 PM EDT Type 2 diabetes mellitus without complication, without long-term current use of insulin ([facility]) POCT GLUCOSE Routine 09/26/2024 4:16 PM EDT Type 2 diabetes mellitus without complication, without long-term current use of insulin (CMS/HCC) BI MAMMOGRAM SCREENING TOMOSYNTHESIS BILATERAL Routine 05/27/2023 9:10 AM EDT HM PAP/HPV Routine 04/17/2022 3:44 PM EST from Last 3 Months or Most Recently Relevant to Health Maintenance Results * Diabetes: Urine Protein Screening (12/12/2024 2:41 PM EDT) Urine e [facility] Provider HEALTH MAINTENANCE Final Result * CT Chest w/ Contrast (10/11/2024 3:11 PM EDT) Anatomical Region Laterality Modality Body, Chest Computed Tomogra phy e [facility] [employer] Provider IMG CT PROCEDURES Final R esult * Albumin/Creatinine Ration, Timed Urine (09/30/2024 3:45 PM EDT) Urine Urine specimen obtained by clean catch procedure / Unknown e [facility] Provider LAB URINE ORDERABLES Gladis l Result * Lipid Panel, Standard (09/30/2024 3:18 PM EDT) Blood Venous blood specimen / Unknown e [facility] Provider LAB BLOOD ORDERABLES Gladis l Result * Thyroid Panel with TSH (09/30/2024 3:15 PM EDT) Blood e [facility] [employer] [facility] [employer] Provider LAB BLOOD ORDERABLES Gladis l Result * Hemoglobin A1c (09/30/2024 2:25 PM EDT) Blood Venous blood specimen / Unknown Historical Provider MD LAB BLOOD ORDERABLES Gladis l Result * POCT glucose manually resulted (09/26/2024 4:18 PM EDT) Only the most recent of2 resultswithin the time period is included. Glucose Blood, POC 99 60 - 200 mg/dL QC Media Lot # Comment:[id number] Lot# Expiration Date Comment:12/29/2024 Blood Capillary blood specimen / Unknown 09/26/2024 4:18 PM EDT Jeannine GUILLENP POINT OF CARE TEST ENTER/EDIT O RDERABLES Final Result * (ABNORMAL) POCT A1C (09/26/2024 4:17 PM EDT) Hemoglobin A1C 6.2(A) 4.0 - 5.7 % QC Media Lot # Comment:[id number] Lot# Expiration Date Comment:05/10/2026 Blood 09/26/2024 4:17 PM EDT Jeannine Vega [employer] POINT OF CARE TEST ENTER/EDIT O RDERABLES Final Result * BI Mammogram Screening Tomosynthesis Bilateral (05/27/2023 9:10 AM EDT) Anatomical Region Laterality Modality Breast Bilateral Mammography 05/27/2023 9:10 AM EDT Narrative 06/23/2023 5:53 AM EDT [facility] [address] [place] [address] Mammography Report Signed Patient: Scarlett Liriano MR#: [id number] : 1970 Acct:[id number] Age/Sex: 52 / F ADM Date: 05/27/23 Loc: HO.MAMMO Attending Dr: Cristian Martinez MD Ordering Physician: Cristian Chacon MD Res ults: 1Negative Date of Service: 05/27/23 Follow Up: 1 Year From Orig inal Mammogram Procedure(s): MM tomosynthesis screening BI Accession Number(s): [id number] cc: Cristian Chacon MD EXAMINATION: MM SCREENING [...] in OV> 06/23/23 0549 DD/ 0910 TD/TT: Analytical Lead: Procedure Note Donotuseinterpreter, Image - 06/23/2023 [facility] [address] [place], [place] [address] Mammography Report Signed Patient: Scarlett LirianoMR#: [id number] : 1970Acct:[id number] Age/Sex: 52 / FADM Date: 05/27/23 Loc: DEBBIE Attending Dr: Cristian Martinez MD Ordering Physician: Cristian Chacon ults: 1Negative Date of Service: 05/27/23Follow Up: 1 Year From Orig inal Mammogram Procedure(s): MM tomosynthesis screening BI Accession Number(s): [id number] cc: Cristian hCacon MD EXAMINATION: MM SCREENING DIGITAL BREAST TOMOSYNTHESIS, [...] in OV> 06/23/23 0549 DD/ 0910 TD/TT: Analytical Lead: Cristian Martinez MD IMG BI PROCEDURES Final Result * HM PAP/HPV (04/17/2022 3:44 PM EST) Historical Provider HEALTH MAINTENANCE Final Result from Last 3 Months or Most Recently Relevant to Health Maintenance Insurance C3 Care Teams Hoisting Engineer Pile Driving Relationship Specialty Start Date End Date Cristian Chacon MD [address] [place] [phone] PCP - General Internal Medicine 03/17/19 Ivy Payne Monument CarverOperations Project Manager 11/26/23
--- OUTSIDE RECORDS SUMMARY | 2024-12-26 16:06 | XMS_ITS | Encounter Summary ---
Author Organization [employer] Address [address] [facility] 7t [place] [address] Care Team Providers Care Picking Machine Operator Name Role Phone Cristian Chacon MD Primary Care Prov ider Encounter Details Date Type Department Care Team ([facility] Contact Info) Description 06/30/2024 Orders Only [facility] [address] [place], [place] [phone] Provider, MD Roderick Social History Tobacco Use [...] the past 12 months, has t he [employer], [employer], oil or water [employer] threatened to shut off services in your [...] documented as of this encounter Care Teams Picking Machine Operator Relationship Specialty Start Date End Date Cristian Chacon MD [address] [place] [phone] PCP - General Internal Medicine 03/17/19 Ivy Payne Zipper Setter LockstitchOperations Technician 11/26/23 documented as of this encounter
--- OUTSIDE RECORDS SUMMARY | 2024-12-26 16:06 | XMS_ITS | Encounter Summary ---
Author Organization [employer] Address [address] [facility] [address] [place] [address] Care Team Providers Care Barrel Brander Name Role Phone Cristian Chacon MD Primary Care Prov ider Reason for Visit * Reason Onset Date Comments Nurse Triage 08/24/2023 Encounter Details Date Type Department Care Team ([facility] st Contact Info) Description 08/24/2023 Telephone [facility] [address] [place], [place] [phone] Cristian Chacon MD [address] [place] [address] Nurse Triage Social History Tobacco Use Types [...] 08/24/2023 10:26 AM EDT Triage call with [employer]ater to u [employer] Stamp Cutter [place] [id number] Pt reports rash has developed on upper, inner thighs and has spread to private area . Pt describesrash as red, bumpy and itchy. Pt reports some irritation vaginally and burning with urination. Burning is described as occurring when urine contacts rash but, may have other urinary symptoms as well.This is not clear to triage nurse. Advised Pt to come to [facility] today at 230pm. Pt agrees with this [...] accepted this outcome Please contact pt at [phone] (american sign language interpreter) documented in this encounter Plan of Treatment Not on file documented as of this encounter Visit Diagnoses Not on filedocumented in this encounter Additional Health Concerns Assessment Noted Time PHQ-9 Depression Total Score: 14 024 9:49 AM EST documented as of this encounter Care Teams Barrel Brander Relationship Specialty Start Date End Date Cristian Chacon MD [address] [place] [id number] PCP - General Internal Medicine 03/17/19 Ivy Payne Director Of AudiologyDomestic Technician 03/03/23 11/25/23 Ivy Payne Stripper Cutter MachineDomestic Technician 11/26/23 documented as of this encounter
--- OUTSIDE RECORDS SUMMARY | 2024-12-26 16:06 | XMS_ITS | Encounter Summary ---
Author Organization [email or web address] Address 75 [facility] 7t [place] [address] Care Team Providers Care Teamsite Developer Name Role Phone Cristian Chacon MD Primary Care Prov ider Reason for Visit * Reason Comments Med Change Request Encounter Details Date Type Department Care Team ([facility] Contact Info) Description 08/31/2023 Refill [facility] [address] [place], [place] [phone] Cristian Chacon MD [address] [place] [address] Social History Tobacco Use Types Packs/Day Years [...] documented as of this encounter Care Teams Teamsite Developer Relationship Specialty Start Date End Date Cristian Chacon MD [address] [place] [address] PCP - General Internal Medicine 03/17/19 Ivy Payne Career Services CoordinatorWarehouse Stocker 03/03/23 11/25/23 Ivy Payne Bell CaptainWarehouse Stocker 11/26/23 documented as of this encounter
--- OUTSIDE RECORDS SUMMARY | 2024-12-26 16:06 | XMS_ITS | Encounter Summary ---
Author Organization [employer] Address [address] [facility] 7t [place] [address] Care Team Providers Care Service Counter Cashier Name Role Phone Cristian Chacon MD Primary Care Prov ider Encounter Details Date Type Department Care Team ([facility] Contact Info) Description 11/19/2023 Orders Only [facility] [address] [place], [place] [phone] Provider, MD Roderick Social History Tobacco Use [...] documented as of this encounter Care Teams Service Counter Cashier Relationship Specialty Start Date End Date Cristian Chacon MD [address] [place] [address] PCP - General Internal Medicine 03/17/19 Ivy Payne Counseling DirectorLaboratory Tech 03/03/23 11/25/23 Ivy Payne Stock Plan AdministratorLaboratory Tech 11/26/23 documented as of this encounter
--- OUTSIDE RECORDS SUMMARY | 2024-12-26 16:06 | XMS_ITS | Encounter Summary ---
Author Organization [employer] Address [address] [facility] [address] 7[address] [place] [address] Care Team Providers Care Ornamental Ironworker Helper Name Role Phone Cristian Chacon MD Primary Care Prov ider Encounter Details Date Type Department Care Team (Late st Contact Info) Description 07/13/2024 Orders Only [facility] [address] [place], [place] [phone] Provider, MD Roderick Social History Tobacco Use [...] the past 12 months, has t he [employer], [employer], oil or water [employer] threatened to shut off services in your [...] documented as of this encounter Care Teams Ornamental Ironworker Helper Relationship Specialty Start Date End Date Cristian Chacon MD [address] [place] [phone] PCP - General Internal Medicine 03/17/19 Ivy Payne Echocardiography Radiology TechnologistFiller Operator 11/26/23 documented as of this encounter
--- OUTSIDE RECORDS SUMMARY | 2024-12-26 16:07 | XMS_ITS | Encounter Summary ---
Author Organization [employer] Address [address] [facility] 7t [place] [address] Care Team Providers Care Track Car Operator Name Role Phone Cristian Chacon MD Primary Care Prov ider Encounter Details Date Type Department Care Team ([facility] Contact Info) Description 12/12/2024 Orders Only [facility] [address] [place], [place] [phone] Provider, MD Roderick Social History Tobacco Use [...] PROTEIN SCREENING Routine 12/12/2024 2:41 PM EDT documented in this encounter Results * HM Diabetes: Urine Protein Screening (12/12/2024 2:41 PM EDT) Urine Historical Provider HEALTH MAINTENANCE Final Result documented in this encounter Visit Diagnoses Not on filedocumented in this encounter Additional Health Concerns Assessment Noted Time PHQ-9 Depression Total Score: 16 024 1:19 PM EDT documented as of this encounter Care Teams Track Car Operator Relationship Specialty Start Date End Date Cristian Chacon MD [address] [place] [address] PCP - General Internal Medicine 03/17/19 Ivy Payne Vise HandGlass Toughening Operator 11/26/23 documented as of this encounter
--- OUTSIDE RECORDS SUMMARY | 2024-12-26 16:07 | XMS_ITS | Clinical Summary ---
Author Organization [facility] Address [address] [place] [address] Care Team Providers Care Manufacturing Mechanic Name Role Phone Unavailable Primary Care Provider [...]
--- OUTSIDE RECORDS SUMMARY | 2024-12-26 16:07 | XMS_ITS | Encounter Summary ---
Author Organization [employer] [facility] Address [address] [place] [address] [address] [place] [address] Care Team Providers Care Rigger Up Name Role Phone Cristian Chacon MD Primary [...] on filedocumented in this encounter Care Teams Rigger Up Relationship Specialty Start Date End Date Cristian Chacon MD [address] [place] [address] PCP - General Internal Medicine 03/17/19 Ivy Payne Boot And Shoe RepairmanCable Technician 03/03/23 11/25/23 Ivy Payne Police JusticeCable Technician 11/26/23 documented as of this encounter
--- OUTSIDE RECORDS SUMMARY | 2024-12-26 16:07 | XMS_ITS | Encounter Summary ---
Author Organization [employer] Address [address] [facility] [address] 7[address] [place] [address] Care Team Providers Care Financial Services Director Name Role Phone Cristian Chacon MD Primary Care Prov ider Encounter Details Date Type Department Care Team (Late st Contact Info) Description 02/19/2024 Orders Only [facility] [address] [place] [address] Provider, MD Roderick Social History Tobacco Use [...] as of this encounter Care Teams Financial Services Director Relationship Specialty Start Date End Date Cristian Chacon MD [address] [place] [address] PCP - General Internal Medicine 03/17/19 Ivy Payne Wardrobe AssistantChef De Cuisine 11/26/23 documented as of this encounter
--- OUTSIDE RECORDS SUMMARY | 2024-12-26 16:07 | XMS_ITS | Encounter Summary ---
Author Organization [employer] Address [address] [facility] 7t [place] [address] Care Team Providers Care Social Group Worker Name Role Phone Cristian Chacon MD Primary Care Prov ider Encounter Details Date Type Department Care Team ([facility] Contact Info) Description 09/07/2024 Orders Only [facility] [address] [place], [place] [phone] Provider, MD Roderick Social History Tobacco Use [...] documented as of this encounter Care Teams Social Group Worker Relationship Specialty Start Date End Date Cristian Chacon MD [address] [place] [address] PCP - General Internal Medicine 03/17/19 Ivy Payne Artificial InseminatorApron Worker 11/26/23 documented as of this encounter
--- OUTSIDE RECORDS SUMMARY | 2024-12-26 16:07 | XMS_ITS | Encounter Summary ---
Author Organization [employer] Address 75 [facility] 7t [place] [address] Care Team Providers Care Steel Construction Worker Name Role Phone Cristian Chacon MD Primary Care Prov ider Reason for Visit * Reason Onset Date Comments ER Follow-up 03/23/2024 Nurse Triage 03/23/2024 Encounter Details Date Type Department Care Team ([facility] st Contact Info) Description 03/23/2024 Telephone [facility] [address] [place] [address] Cristian Chacon MD [address] [place] [address] ER Follow-up; Nurse Triage Social History Tobacco [...] 11:51 AM [place] [id number] Jose Alberto Pt was seen in [facility] ED 03/19/24 , (report is on the [...] an apt this Thursday at [facility] with provider but, requests to only [...] 03/23/2024 9:50 AM EST Tc from pt long term care social worker calling to report ED visit on : Date: 03/19 Hospital: [facility] Seen for: Chest pain, Abdominal pain. Symptomatic Yes (Can't walk normally) *if yes message should go to Triage Patient advised will forward to team nurse for follow up [phone] slovak documented in this encounter Plan of Treatment Not on file documented as of this encounter Visit Diagnoses Not on filedocumented in this encounter Additional Health Concerns Assessment Noted Time PHQ-9 Depression Total Score: 16 024 1:19 PM EDT documented as of this encounter Care Teams Steel Construction Worker Relationship Specialty Start Date End Date Cristian Chacon MD [address] [place] [phone] PCP - General Internal Medicine 03/17/19 Ivy Payne Twist MakerMulcher Operator 11/26/23 documented as of this encounter
--- OUTSIDE RECORDS SUMMARY | 2024-12-26 16:07 | XMS_ITS | Clinical Summary ---
Author Organization [facility] Address [address] [place] [address] Care Team Providers Care Oil Field Roustabout Name Role Phone Cristian Chacon MD Primary [...] TABLETA DIARIAMENTE 30 tablet 1 5 Active Freestyle Lite test strips SMARTSIG:Daily 5 Active FreeStyle [place] Lite meter SMARTSIG:Daily Active Banophen 25 mg capsule SMARTSI Capsule(s) By Mouth Every Night PRN Active diphenhydrAMINE (SOMINEX) tablet 25 mg Take 25 mg by mouth once daily as needed. 5 Active Active Problems Problem Noted Date Diagnosed Date Pleurisy 12/06/2024 Shortness of breath 08/16/2024 Multiple joint pain [...] exercise. Lymphadenopathy of left cervical region 05/18/19 Primary hypertension 04/17/2023 Chronic pelvic pain in [...] LESION, MOST LIKELY HEMORRHAGIC OVARIAN CYST. F/U TAX AUDITOR S/P US PELVIS 07/04/13 DUE PELVIC PAIN. 2.9 X 3.8 X 3 CM LEFT ADNEXAL CYSTIC LESION, MOST LIKELY HEMORRHAGIC OVARIAN CYST. F/U TAX AUDITOR Left carpal tunnel syndrome 06/22/2013 Allergic rhinitis due to allergen 2008 Gastroesophageal reflux disease without esophagi tis 07/13/2007 Mixed anxiety depressive disorder 05/13/2007 Overview (08/16/2024): F/U [facility] (DR. NANCE). F/U [facility] (DR. NANCE). Hypothyroidism 05/13/2007 Overview (08/16/2024): [...] Mcdowell Insomnia 05/13/2007 Overview (08/16/2024): F/U AT [facility] (DR. NANCE). F/U AT [facility] (DR. NANCE). Encounters Date Type Department Care Team Description 12/06/2024 1:00 PM EDT Follow-Up [facility] [address] [place] [address] Cia Agent: Dennis Laguna MD Shortness of breath (Primary Dx); Pleurisy 12/06/2024 12:02 PM EDT - 12/06/2024 11:59 PM EDT Hospital Encounter [facility] Xray [address] [place] [address] Discharge Disposition: Home or Self Care (01) 12/05/2024 10:40 AM EDT Follow-Up [facility] [address] [place] [phone] Cia Agent: Alonzo Baez MD Fibromyalgia (Primary Dx); Systemic lupus erythematosus with other organ involvement, unspecified SLE type 12/02/2024 Telephone [facility] [address] [place] [address] Cia Agent: Kelly Catalan MA 11/09/2024 Orders Only [facility] [address] [place] [address] Cia Agent: Dennis Laguna MD Shortness of breath (Primary Dx) 10/25/2024 Results Follow-Up [facility] Rhe[facility] [address] [place] [address] Cia Agent: Alonzo Caputo MD 10/11/2024 8:27 AM EDT - 10/11/2024 11:59 PM EDT [facility] Encounter [facility] [address] [place] [address] Dennis Vallejo MD Shortness of breath Discharge [...] Reading Time Taken Comments Blood Pressure 122/87 12/06/2024 12:46 PM EDT Pulse 87 12/06/2024 12:46 PM EDT Temperature 36.8 C (98.2 F) 09/21/2024 10:58 AM EDT Respiratory Rate 18 12/06/2024 12:4 6 PM EDT Oxygen Saturation 96% 12/06/2024 12: 46 PM EDT Inhaled Oxygen Concentration - - Weight 88 kg (194 lb) 12/06/2024 12:46 PM EDT pt said she refused. Height 157.5 cm (5' 2 ) 12/05/2024 10:0 7 AM EDT Body Mass Index 35.48 12/05/2024 10:07 AM EDT Plan of Treatment Upcoming Encounters Date Type Department Care Team (Late st Contact Info) Description 01/30/2025 9:40 AM EST Follow-Up [facility] [address] [place] [address] Cia Agent: Alonzo Baez MD [address] [place] [phone] 06/08/2025 9:40 AM EDT Follow-Up [facility] [address], [place] [phone] Cia Agent: Dennis Laguna MD [address] [place] [address] [phone] Health Maintenance Due Date Last Done Comments [...] 05/20/2022, 03/2 03/2022, 05/20/2022, Additional history exists COVID-19 Vaccine (2024-2 6 season) 2024 01/04/2022, 03/22/2021, 07/22/2020, Additional history exists Influenza Vaccine (#1) 2024 , 12/11/2022, 01/04/2022, Additional history exists Hemoglobin A1C 04/02/2025 09/30/2024, 07/2 09/2024, 05/30/2024, Additional history exists Colon Cancer Screening 09/30/2025 FOBT / Fit Test 09/30/2025 09/30/2024, 11/18/2023 Urine Microalbumin 09/30/2025 09/30/2024, 0 09/30/2024, 04/20/2024, Additional history exists Basic Metabolic Panel 12/05/2025 12/05/2024 , 09/15/2024, 07/20/2024, Additional history exists RSV Vaccine (60+ years old a nd patients) (1 - 1-dose 75+ series) 07/20/2043 HIV Screening Completed 09/29/2013 Hepatitis C Screening Completed 06/04/2022 Procedures * Due to [place] [employer] law, this organization might not be sharing negative HIV tests. Procedure Name Priority Date/Time Associated Diagnosis Comments XR CHEST 2 VW Routine 12/06/2024 12:23 PM EDT Shortness of breath COMPREHENSIVE METABOLIC PANEL Routine 12/05/2024 11:31 AM EDT Other chest pain Rib pain FELI positive CT CHEST INTERSTITIAL LUNG DISEASE/FIBROSIS Routine 10/11/2024 9:16 AM EDT Shortness of breath MICROALBUMIN, RANDOM URINE WITH CREATININE Routine 04/20/2024 9:23 AM EST FELI positive Arthralgia, unspecified joint HEPATITIS C ANTIBODY W/REFLEX TO HCV RNA, QUANTITATIVE PCR Routine 06/04/2022 5:43 PM EDT FELI positive from Last 3 Months or Most Recently Relevant to Health Maintenance Results * Due to [place] [employer] law, this organization might not be sharing negative HIV tests. * XR Chest 2 vw. Standard (12/06/2024 12:23 PM EDT) Anatomical Region Laterality Modality Body Computed Radiogr aphy 12/08/2024 3:00 PM EDT Impressions 12/08/2024 3:02 PM EDT No change. Heart normal. Lungs and pleural spaces clear. Cervical spine fusion hardware as before. If this radiology report contains a blank impression section, it is an incomplete radiology report. Please contact the interpreting radiologist or applicable radiology division as soon as possible to obtain the completed interpretation. Workstation ID: [id number] Narrative 12/08/2024 3:02 PM EDT COMPARISON: 01/13/2024 FINDINGS AND Resulting Agency Comment [id number] Procedure Note Pardeep Mack MD - 12/08/2024 COMPARISON: 01/13/2024 FINDINGS AND IMPRESSION: No change. Heart normal. Lungs and pleural spaces clear. Cervical spinefusion hardware as before. If this radiology report contains a blank impression section, it is anincomplete radiology report. Please contact the interpreting radiologistor applicable radiology division as soon as possible to obtain thecompleted interpretation. Workstation ID: [id number] us Dennis Vallejo MD IMG XR PROCEDURES Final R esult * (ABNORMAL) Comprehensive Metabolic Panel (12/05/2024 11:31 AM EDT) NA 140 135 - 145 mmol/L 12/05/2024 12:27 PM EDT [facility] K 3.9 3.5 - 5.3 mmol/L 12/05/2024 12:27 PM EDT [facility] Cl 104 97 - 110 mmol/L 12/05/2024 12:27 PM EDT [facility] CO2 24 22 - 32 mmol/L 12/05/2024 12:27 PM EDT [facility] Anion Gap 12 5 - 15 12/05/2024 12:27 PM EDT [facility] Glucose 118(H) 65 - 99 mg/dL 12/05/2024 12:27 PM EDT [facility] Creatinine 0.72 0.50 - 1.20 mg/dL 12/05/2024 12:27 PM EDT [facility] Calcium 9.1 8.6 - 10.5 mg/dL 12/05/2024 12:27 PM T [facility] Total Protein 7.7 6.0 - 8.0 g/dL 12/05/2024 12:27 PM T [facility] Albumin 4.2 3.5 - 5.2 g/dL 12/05/2024 12:27 PM [facility] Bilirubin, Total 0.5 0.2 - 1.2 mg/dL 12/05/2024 12:27 PM EDT [facility] Alkaline Phosphatase 60 35 - 129 U/L 12/05/2024 12:27 PM EDT [facility] AST 16 10 - 40 U/L 12/05/2024 12:27 PM [facility] ALT 13 10 - 40 U/L 12/05/2024 12:27 PM [facility] BUN 18 7 - 23 mg/dL 12/05/2024 12:27 PM T [facility] eGFR >90 >=60 mL/min/1. 73m2 12/05/2024 12:27 PM [facility] Comment:The estimated [...] Globulin, Total 3.5 2.1 - 4.2 g/dL 12/05/2024 12:27 PM [facility] A/G Ratio 1.2(L) 1.5 - 3.0 12/05/2024 12:27 PM EDT [facility] Blood Structure of peripheral vein / Unknown Venipuncture / Unknown 12/05/2024 11:31 AM EDT 12/05/2024 11:46 AM EDT us Alonzo Persaud MD LAB BLOOD ORDERABLES Final Result [facility] [address] [place] [address], [place] * CT Chest Interstitial Lung Disease/Fibrosis (10/11/2024 [...] to obtain the completed interpretation. Workstation ID: [id number] Up-to-date CT equipment and radiation dose reduction [...] cervical spine fixation hardware. Resulting Agency Comment [id number] Procedure Note Wendi Hollingsworth MD - 10/24/2024 EXAMINATION: CT CHEST INTERSTITIAL [...] possible to obtain thecompleted interpretation. Workstation ID: [id number] Up-to-date CT equipment and radiation dose reduction techniques wereemployed. CTDIvol: 2.4 - 18.3 mGy. DLP: 1117 mGy-cm. us Dennis Vallejo MD IMG CT PROCEDURES Final R esult * Microalbumin, Random Urine with Creatinine (04/20/2024 9:23 AM EST) Microalbumin, Urine <2.0 mg/dL 04/20/2024 12:17 PM EST [facility] Creatinine, Urine 186 15 - 278 mg/dL 04/20/2024 12:17 PM EST [facility] Microalb/Creat Ratio, Random Urine 04/20/2024 12:17 PM EST [facility] Comment: < 1.0 mcg/mgCr Microalbumin Reference Range: Normal <30 mcg/mg Creatinine Microalbuminuria 30-300 mcg/mg Creatinine Clinical Albuminuria >300 mcg/mg Creatinine Reference: ADA Guideline. Diabetes Care. 2004;27 (suppl 1) Urine Voided urine specimen / Unknown Non-Blood Collection / Unknown 04/20/2024 9:23 AM EST 04/20/2024 9:39 AM EST Alonzo Persaud MD LAB URINE ORDERABLES Final Result [facility] [address] [place] [address], [facility] [address] [place] [address], * Hepatitis C Antibody w/Reflex to HCV RNA, Quantitative PCR (06/04/2022 5:43 PM EDT) Hepatitis C Antibody NON-REACT BETO NON-REACT BETO 06/05/2022 3:44 AM EDT [employer] [facility] Signal To Cut-Off 0.02 <1.00 06/05/2022 3:44 AM EDT [employer] [facility] Comment: HCV antibody was non-reactive. There is no laboratory evidence of HCV infection. In most cases, no further action is required. However, if recent HCV exposure is suspected, a test for HCV RNA (test code 75753) is suggested. For additional information please refer to http://education.[employer]/faq/IOY95c7 (This link is being provided for informational/ educational purposes only.) Blood Structure of peripheral vein / Unknown Venipuncture / Unknown 06/04/2022 5:43 PM EDT 06/04/2022 6:08 PM EDT Narrative [facility] - 06/05/2022 3:44 AM EDT [facility] Received Date: Alonzo Persaud MD LAB BLOOD ORDERABLES Final Result [facility] [address] [facility] [address] [facility], [place] [address], [place] [phone] [employer] [facility] [address], [place] [address], [place] [phone] from Last 3 Months or Most Recently Relevant to Health Maintenance Insurance Care Teams Oil Field Roustabout Relationship Specialty Start Date End Date WylieCristian Cook MD [address] [place] [phone] PCP - General 06/04/22
--- OUTSIDE RECORDS SUMMARY | 2024-12-26 16:07 | XMS_ITS | Encounter Summary ---
Author Organization [employer] Address [address] [facility] 7t [place] [address] Care Team Providers Care Entry Specialist Name Role Phone Cristian Chacon MD Primary Care Prov ider Encounter Details Date Type Department Care Team ([facility] Contact Info) Description 10/24/2024 Orders Only [facility] [address] [place], [place] [phone] Provider, MD Roderick Social History Tobacco Use [...] documented as of this encounter Care Teams Entry Specialist Relationship Specialty Start Date End Date Cristian Chacon MD [address] [place] [address] PCP - General Internal Medicine 03/17/19 Ivy Payne Budget SpecialistService Center Supervisor 11/26/23 documented as of this encounter
--- OUTSIDE RECORDS SUMMARY | 2024-12-26 16:07 | XMS_ITS | Encounter Summary ---
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 Pt stated she had not picked up the Benadryl yet for rash itchiness. She will do so. Also, pt's ragman has retired. She would like PCP to [...] on filedocumented in this encounter Care Teams Slide Developer Relationship Specialty Start Date End Date Cristian Chacon MD [address] [place] [address] PCP - General Internal Medicine 03/17/19 Ivy Payne Blade FilerBean Sprout Laborer 03/03/23 11/25/23 Ivy Payne Tuberculosis SpecialistBean Sprout Laborer 11/26/23 documented as of this encounter
--- OUTSIDE RECORDS SUMMARY | 2024-12-26 16:07 | XMS_ITS | Clinical Summary ---
Author Organization [facility] Address [address] [place] [address] Care Team Providers Care Electronic Installer Name Role Phone Eduarda Villeda MD Primary Care Provider [phone] Medications No known medications Social History Tobacco [...] complete this topic Insurance MEDICAID Care Teams Electronic Installer Relationship Specialty Start Date End Date Eduarda Villeda MD [address] [address] PCP - General Internal Medicine 05/12/18
--- OUTSIDE RECORDS SUMMARY | 2024-12-26 16:07 | XMS_ITS | Encounter Summary ---
Author Organization [employer] Address [address] [facility] [address] 7t [place] [address] Care Team Providers Care Director Integrated Name Role Phone Cristian Chacon MD Primary Care Prov ider Encounter Details Date Type Department Care Team (Late st Contact Info) Description 10/03/2024 Orders Only [facility] [address] [place] [address] Provider, MD Roderick Social History Tobacco Use [...] by clean catch procedure / Unknown Result [facility] Provider LAB URINE ORDERABLES Gladis l Result * Lipid Panel, Standard (09/30/2024 3:18 PM EDT) Blood Venous blood specimen / Unknown [facility] Provider LAB BLOOD ORDERABLES Gladis l Result * Thyroid Panel with TSH (09/30/2024 3:15 PM EDT) Blood Result [facility] Provider LAB BLOOD ORDERABLES Gladis l Result * Hemoglobin A1c (09/30/2024 2:25 PM EDT) Blood Venous blood specimen / Unknown [facility] Provider LAB BLOOD ORDERABLES Gladis l Result documented in this encounter Visit Diagnoses Not on filedocumented in this encounter Additional Health Concerns Assessment Noted Time PHQ-9 Depression Total Score: 16 024 1:19 PM EDT documented as of this encounter Care Teams Director Integrated Relationship Specialty Start Date End Date Cristian Chacon MD [address] [place] [address] PCP - General Internal Medicine 03/17/19 Ivy Payne Medical TypistAssistant Manager Pt 11/26/23 documented as of this encounter
--- OUTSIDE RECORDS SUMMARY | 2024-12-26 16:07 | XMS_ITS | Encounter Summary ---
Author Organization [employer] Address [address] [facility] [address] 7t [place] [address] Care Team Providers Care Self Pay Representative Name Role Phone Cristian Chacon MD Primary Care Prov ider Encounter Details Date Type Department Care Team (Late st Contact Info) Description 03/22/2024 Orders Only [facility] [address] [place], [place] [phone] Provider, MD Roderick Social History Tobacco Use [...] as of this encounter Care Teams Self Pay Representative Relationship Specialty Start Date End Date Cristian Chacon MD [address] [place] [address] PCP - General Internal Medicine 03/17/19 Ivy Payne Supervisor CytologyHumid System Operator 11/26/23 documented as of this encounter
--- OUTSIDE RECORDS SUMMARY | 2024-12-26 16:07 | XMS_ITS | Encounter Summary ---
Author Organization [facility] Address [facility] [address] [place] [address] Phone Care Team Providers Care Operations Team Leader Name Role Phone Unknown, Unknown Primary Care Provider Susan Souza MD Primary Care Provider + [phone] Cristian Chacon MD Primary Care Prov ider Reason for Referral * Consultation (Within 1 month) - Closed Specialty Diagnoses / Procedures Referred By Lurdes sarmiento Referred To Contact Diagnoses Fibromyalgia System, Provider Not In, PhD [address] [address] Zhen Wilks MD Phone: tel: fax: mailto:[email or web address] Referral ID Status Reason Start Date Expiration Date Visits Re quested Visits Authorized [id number] Closed 11/18/2017 11/18/2018 6 6 Encounter Details Date Type Department Care Team (Latest Contact Info) Description 11/09/2017 Transcribe Orders [facility] Rheumatology [address], [address] [place] [address] Susan Vogt MD [address] [place] [address] Fibromyalgia (Primary Dx) Social History Tobacco Use [...] [facility] Contact Info) Description 02/13/2025 8:30 AM EST Office Visit [facility] [address] [place] [address] Musa Mcdowell DO [address] [place] [address] 03/14/2025 10:00 AM EST Office Visit [facility] Pulmonary, Allergy and Critical Care Medicine [address] [place] [address] Blayne Kam MD [address] [place] [address] Scheduled Referrals Name Type Priority Associated Diagnoses Order Schedule Ambulatory referral to [facility] Rheumatology Outpatient Referral Routine Fibromyalgia Ordered: 11/09/2017 documented as of this encounter Visit Diagnoses Diagnosis Fibromyalgia- Primary Unspecified myalgia and myositis documented in this encounter Care Teams Operations Team Leader Relationship Specialty Start Date End Date Unknown, Unknown, MD PCP - General 11/09/17 12/30/17 Susan Vogt MD [address] [facility] 1 [place] [address] PCP - General Family Medicine 12/31/17 10/22/20 Cristian Chacon MD [address] [place] [address] PCP - General Internal Medicine 10/23/20 documented as of this encounter Additional Source Comments The information contained in this document represents components of the legal health record. It is not the complete legal health record.[facility]
--- OUTSIDE RECORDS SUMMARY | 2024-12-26 16:07 | XMS_ITS | Encounter Summary ---
Author Organization [facility] Address [address] [place] [address] Care Team Providers Care Communications Consultant Name Role Phone Cristian Chacon MD Primary Care Prov ider Reason for Visit * Reason Onset Date Comments Rosacea 08/09/2021 Pt is calling to schedule a new pt apt for rosacea. Please call pt at [phone] Encounter Details Date Type Department Care Team ([facility] Contact Info) Description 08/09/2021 Telephone [facility] Central Scheduling Department [address] [place] [address] Telephone Intake, Staff Cash (Pt is calling to schedule a new pt apt for rosacea. Please call pt at [phone]) Social History Tobacco Use Types Packs/Day Years [...] 10:51 AM EDT Documentation purpose. lvm at [id number]. Pt is calling to schedule a new pt apt for rosacea. Please call pt at [phone] documented in this encounter Plan of Treatment Upcoming Encounters Date Type Department Care Team ([facility] Contact Info) Description 01/30/2025 9:40 AM EST Follow-Up [facility] [address] [place] [address] Kai Whakaruruhau: Alonzo Baez MD [address] [place] [address] 06/08/2025 9:40 AM EDT Follow-Up [facility] [address] [place] [phone] Kai Whakaruruhau: Dennis Laguna MD [address] [place] [address] documented as of this encounter Visit Diagnoses Not on filedocumented in this encounter Care Teams Communications Consultant Relationship Specialty Start Date End Date Cristian Chacon MD [address] [place] [address] PCP - General 06/04/22 documented as of this encounter
--- OUTSIDE RECORDS SUMMARY | 2024-12-26 16:07 | XMS_ITS | Encounter Summary ---
Author Organization [employer] Address [address] [facility] 7 [place] [address] Care Team Providers Care Certified Performance Technologist Name Role Phone Cristian Chacon MD Primary Care Prov ider Reason for Visit * Reason Onset Date Comments New med script 04/01/2022 Encounter Details Date Type Department Care Team ([facility] st Contact Info) Description 04/01/2022 Telephone [facility] [address] [place], [place] [phone] Cristian Chacon MD [address] [place] [address] New med script Social History Tobacco Use [...] on filedocumented in this encounter Care Teams Certified Performance Technologist Relationship Specialty Start Date End Date Cristian Chacon MD [address] [place] [address] PCP - General Internal Medicine 03/17/19 Ivy Payne 2Nd Grade TeacherSupply Chain Program Manager 03/03/23 11/25/23 Ivy Payne Enterprise Application AdministratorSupply Chain Program Manager 11/26/23 documented as of this encounter
--- OUTSIDE RECORDS SUMMARY | 2024-12-26 16:07 | XMS_ITS | Clinical Summary ---
Author Organization [facility] Address [address] [place] [address] Phone Care Team Providers Care Behavioral Specialist Name Role Phone Cristian Chacon Primary Care [...] History Date Comments Fibromyalgia Asthma Diabetes mellitus ([facility] V24, [facility] V28) Hypertension Migraine Lupus (systemic lupus erythematosus) ([facility] V2 4, [facility] V28) GERD (gastroesophageal reflux disease) Gastritis Anxiety [...] - PCV20 or PCV21) 2018 10/14/2010, 10/14/2010 RSV Immunization Adult Patients (1 - Risk 50-74 years 1-dose series) 2018 Zoster Vaccines (2 of 2) 06/08/2019 04/13/2019 [...] LAB CHEMISTRY METHOD 06/30/2024 3:09 PM EDT [facility] Potassium 4.7 3.5 - 5.5 mmol/L LAB CHEMISTRY METHOD 06/30/2024 3:09 PM EDT [facility] Chloride 105 96 - 110 mmol/L LAB CHEMISTRY METHOD 06/30/2024 3:09 PM EDT [facility] CO2 26 21 - 32 mmol/L LAB CHEMISTRY METHOD 06/30/2024 3:09 PM EDT [facility] Anion Gap 6 3 - 11 LAB CHEMISTRY METHOD 06/30/2024 3:09 PM [facility] Glucose 193(H) 70 - 100 mg/dL LAB CHEMISTRY METHOD 06/30/2024 3:09 PM [facility] BUN 15 5 - 25 mg/dL LAB CHEMISTRY METHOD 06/30/2024 3:09 PM [facility] Creatinine 0.76 0.50 - 1.10 mg/dL LAB CHEMISTRY METHOD 06/30/2024 3:09 PM [facility] eGFR 93 >=60 mL/min/1. 73m2 LAB CHEMISTRY METHOD 06/30/2024 3:09 PM [facility] Comment:Calculation based on the Chronic Kidney Disease Epidemiology Collaboration (CKD-EPI) equation refit without adjustment for race. BUN/Creatinine Ratio 19.7 LAB CHEMISTRY METHOD 06/30/2024 3:09 PM [facility] Calcium 8.7 8.5 - 10.5 mg/dL LAB CHEMISTRY METHOD 06/30/2024 3:09 PM [facility] AST (SGOT) 15 10 - 42 unit/L LAB CHEMISTRY METHOD 06/30/2024 3:09 PM [facility] ALT (SGPT) 17 10 - 60 unit/L LAB CHEMISTRY METHOD 06/30/2024 3:09 PM [facility] Alkaline Phosphatase 49 42 - 121 unit/L LAB CHEMISTRY METHOD 06/30/2024 3:09 PM [facility] Total Protein 7.0 6.0 - 8.0 g/dL LAB CHEMISTRY METHOD 06/30/2024 3:09 PM [facility] Albumin 3.0(L) 3.2 - 5.0 g/dL LAB CHEMISTRY METHOD 06/30/2024 3:09 PM [facility] Total Bilirubin 0.4 0.0 - 1.4 mg/dL LAB CHEMISTRY METHOD 06/30/2024 3:09 PM EDT [facility] Blood Venous blood specimen / Unknown Venipuncture / Unknown 06/30/2024 1:34 PM EDT 06/30/2024 2:20 PM EDT us Jaime Erickson MD LAB BLOOD ORDERABLES Final Result [facility] [address] [place] [address], * DIANE SCREENING DIGITAL (02/27/2018 5:16 PM EST) Anatomical Region Laterality Modality Mammography 02/24/2018 10:4 4 AM EST Narrative 02/27/2018 5:16 PM EST [facility] Diagnostic Imaging Department [address] [place] [address] Patient: SCARLETT NEUMANN.O.B./Age/Sex: 1970 - 47 - F Unit#: [id number] Location/Status: [facility] CLI [facility] Order[facility] Physician: GABRIELA VILLEDA MD [facility] Screening Digital - 02/27/18 - 0758 INDICATION: SCREENING COMPARISON: [facility] mammograms dating back to 08/05/2012 [...] date for the next mammogram. G0202 / [id number]) , [id number] Dictating Physician: YONG WEATHERS MD Electronically Signed by: YONG WEATHERS MD Dic Date/Time: 02/27/181711 Sign date/Time: 02/27/181715 Procedure Note Yong Weathers MD - 02/18/2022 [facility] Diagnostic Imaging Department [address] [place] [address] Patient: SCARLETT NEUMANNO.B./Age/Sex: 1970 - 47 - F Unit#: [id number] Location/Status: [facility] Mnemonic/Ordering Site: [facility] Ordering Physician: GABRIELA VILLEDA MD [facility] Screening Digital - 02/27/18 - 0758 INDICATION: SCREENING COMPARISON: [facility] mammograms dating back to 08/05/2012 FINDINGS: CC and MLO views of the breasts were obtained, using full field digital mammography with 3D tomosynthesis views in the MLO projection. Computeraided detection with the [employer] 7.2-H was employed. History of reduction mammoplasty [...] target date for the next mammogram. G0202 [id number]) , [id number] Dictating Physician: YONG WEATHERS MD Electronically Signed by: YONG WEATHERS MD Dic Date/Time: 02/27/181711 Sign date/Time: 02/27/181715 Gabriela Villeda MD IMG BI PROCEDURES Final R esult from Last 3 Months or Most Recently Relevant to Health Maintenance Insurance MEDICAID - [place] Care Teams Behavioral Specialist Relationship Specialty Start Date End Date Cristian Chacon [address], [place] PCP - General Internal Medicine 10/17/20
--- OUTSIDE RECORDS SUMMARY | 2024-12-26 16:07 | XMS_ITS | Encounter Summary ---
Author Organization [employer] Address [address] [facility] 7 [place] [address] Care Team Providers Care Equipment Operation Instructor Name Role Phone Cristian Chacon MD Primary Care Prov ider Reason for Visit * Reason Onset Date Comments Nurse Triage 11/18/2022 Encounter Details Date Type Department Care Team ([facility] st Contact Info) Description 11/18/2022 Telephone [facility] [address] [place], [place] [phone] Cristian Chacon MD [address] [place] [address] Nurse Triage Social History Tobacco Use Types [...] accepted this outcome Please contact pt at [phone] Tunisian Speaker documented in this encounter Plan of Treatment Not on file documented as of this encounter Visit Diagnoses Not on filedocumented in this encounter Care Teams Equipment Operation Instructor Relationship Specialty Start Date End Date Cristian Chacon MD [address] [place] [address] PCP - General Internal Medicine 03/17/19 Ivy Payne Shirt CloserFood And Beverage Intern 03/03/23 11/25/23 Ivy Payne Sharepoint AnalystFood And Beverage Intern 11/26/23 documented as of this encounter
--- OUTSIDE RECORDS SUMMARY | 2024-12-26 16:07 | XMS_ITS | Encounter Summary ---
Author Organization [facility] Address [address] [place] [address] [address] [place] [address] Care Team Providers Care Tiler'S Assistant Name Role Phone Cristian Chacon MD [...] on filedocumented in this encounter Care Teams Tiler'S Assistant Relationship Specialty Start Date End Date Cristian Chacon MD [address] [place] [address] PCP - General Internal Medicine 03/17/19 Ivy Payne Fruit CoordinatorSpecial Library Librarian 03/03/23 11/25/23 Ivy Payne Credit Union TellerSpecial Library Librarian 11/26/23 documented as of this encounter
--- OUTSIDE RECORDS SUMMARY | 2024-12-26 16:07 | XMS_ITS | Clinical Summary ---
Author Organization [facility] Address [address] [place] [phone] Phone Care Team Providers Care Control Room Agent Name Role Phone Cristian Chacon MD [...] propionate (FLONASE) 50 mcg/actuation nasal spray Per literacy specialist 06/12/19 15 Active fluticasone propion-salmeter oL [...] presently because her insurance does not cover pharmacy operations specialist. There is another reason why she is [...] LESION, MOST LIKELY HEMORRHAGIC OVARIAN CYST. 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 NANCE). 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 09/30/2024 9:07 AM EDT - 09/30/2024 11:59 PM EDT Hospital Encounter [facility] [address] [place] [address] Musa Mcdowell DO Discharge Disposition: Home or Self Care 09/30/2024 Transcribe Orders [facility] [address] [place] [address] Musa Mcdowell DO 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 (Primary Dx); Type 2 diabetes mellitus without complication, without long-term current use of insulin 09/28/2024 Transcribe Orders [facility] [address] [place] [address] Alonzo Persaud MD from Last 3 Months Immunizations Immunization Administration [...] AM EST Office Visit [facility] [address] [place], [place] [phone] Musa Mcdowell DO [address] [place] [address] 03/14/2025 10:00 AM EST Office Visit [facility] [address] [facility] [place] [address] [place] [address] Blayne Kam MD [address] [place] [address] Health Maintenance Due Date Last Done Comments DEPRESSION SCREENING 1980 HIV ONE-TIME SCREENING (18-65 YEARS) 1986 PNEUMOCOCCAL VACCINES (50+ years) (2 of 2 - PCV) 10/15/2011 10/14/2010 COLOGUARD 2013 COLONOSCOPY 2013 COLORECTAL CANCER SCREENING 2013 FIT TEST 2013 FOBT 2013 SIGMOIDOSCOPY 2013 VIRTUAL COLONOSCOPY 2013 RSV VACCINE (1 - Risk 50-74 years 1-dose series) 2018 ZOSTER VACCINES (2 of 2) 06/08/2019 04/13/2019 Adult Td,Tdap Booster 10/14/2020 10/14/2010 POTASSIUM LEVEL 04/18/2022 04/18/2021 CREATININE LEVEL 08/29/2022 08/29/2021, 04/2021, 04/18/2021, Additional history exists DIABETIC EYE EXAM 08/10/2023 MAMMOGRAM 05/20/2024 05/20/2022, 2 03/2022, 10/04/2020, Additional history exists INFLUENZA VACCINE (#1) 2024 , 12/06/2019, 10/25/2018, Additional history exists COVID-19 VACCINE ( season) 2024 03/22/2021, 07/22/2020, 07/01/2020 HEMOGLOBIN A1C 04/02/2025 09/30/2024, 08/0 03/2024, 09/26/2024, Additional history exists BLOOD PRESSURE 04/06/2025 10/04/2024 LIPID PANEL 09/30/2025 09/30/2024, 08/0 03/2024, 11/26/2021, Additional history exists TSH LEVEL 09/30/2025 09/30/2024, 05/02, 02/02/2024, Additional history exists HEPATITIS C SCREENING [...] URINE MICROALBUMIN <1.2 0 - 2.3 mg/dL [facility] URINE CREATININE 77 mg/dL [facility] MICROALB/CRE RATIO NOT CALCULATED 0 - 20 mg/g Cre [facility] Comment:due to Microalbumin <1.2 Urine (Urine) 09/30/2024 12: 38 PM EDT 09/30/2024 12:41 PM EDT us Musa Mcdowell DO URINE ORDERABLES Final Result [address] [address] * TSH (09/30/2024 12:38 PM EDT) TSH 2.48 0.27 - 4.20 uIU/mL [facility] Blood 09/30/2024 12:3 8 PM EDT 09/30/2024 12:40 PM EDT Musa Mcdowell DO LAB BLOOD ORDERABLES Final Resul t [address] [address] * Free T4 (09/30/2024 12:38 PM EDT) FREE T4 0.9 0.9 - 1.7 ng/dL [facility] Blood 09/30/2024 12:3 8 PM EDT 09/30/2024 12:40 PM EDT [facility] LAB BLOOD ORDERABLES Final Resul t Performing Organization Address City/[facility]/ZIP Co de Phone Number [address] [address] * (ABNORMAL) Hemoglobin A1c (09/30/2024 12:38 PM EDT) HEMOGLOBIN A1C 6.4(H) 4.3 - 5.8 % [facility] Blood 09/30/2024 12:3 8 PM EDT 09/30/2024 12:41 PM EDT [facility] LAB BLOOD ORDERABLES Final Resul t Performing Organization Address City/[facility] Co de Phone Number [address] [address] * Lipid panel (09/30/2024 12:38 PM EDT) HDL 50 mg/dL [facility] Comment: Interpretation <40 mg/dL: Low HDL cholesterol (major risk factor for CHD) Greater than or equal to 60 mg/dL: High HDL cholesterol ( negative risk factor for CHD) HDL - cholesterol is affected by a number of factors, e.g. smoking, excerise, hormones, sex and age. CHOLESTEROL 165 0 - 240 mg/dL [facility] TRIGLYCERIDES 69 30 - 160 mg/dL [facility] LDL 101 50 - 129 mg/dL [facility] Comment: LDL levels in terms of risk for coronary heart disease: <100 mg/dL: Optimal 100-129 mg/dL: Near or above optimal 130-159 mg/dL: Borderline high 160-189 mg/dL: High >190 mg/dL: Very High CARDIAC RISK RATIO 3.3 3.3 - 4.4 C [facility] Blood 09/30/2024 12:3 8 PM EDT 09/30/2024 12:41 PM EDT us Musa Mcdowell DO LAB BLOOD ORDERABLES Final Resul t [facility] [address] [place] [address] * Comprehensive metabolic panel (04/18/2021 8:47 AM EST) SODIUM 139 135 - 145 mmol/L [facility] POTASSIUM 4.0 3.4 - 5.0 mmol/L [facility] CHLORIDE 104 98 - 108 mmol/L [facility] CO2 24 23 - 32 mmol/L [facility] BUN 20 8 - 25 mg/dL [facility] CREATININE 0.65 0.60 - 1.50 mg/dL [facility] GLUCOSE 82 70 - 110 mg/dL [facility] ALBUMIN 4.3 3.3 - 5.0 g/dL [facility] TOTAL PROTEIN 7.3 6.0 - 8.3 g/dL [facility] CALCIUM 9.1 8.5 - 10.5 mg/dL [facility] ALKALINE PHOSPHATASE 71 30 - 100 U/L [facility] TOTAL BILIRUBIN 0.5 0.0 - 1.0 mg/dL [facility] AST 18 9 - 32 U/L [facility] ALT 16 7 - 33 U/L [facility] GLOBULIN 3.0 1.9 - 4.1 g/dL [facility] EGFR 106 >59 mL/min/1. 73m2 [facility] Comment:Estimated glomerular filtration rate calculated using the CKD-EPI refit equation. ANION GAP 11 3 - 17 mmol/L [facility] 04/18/2021 8:47 AM EST 04/18/2021 12:38 PM EST us Elvi Kaur MD LAB BLOOD ORDERABLES Final Result [facility] [address] [place] [address] from Last 3 Months or Most Recently Relevant to Health Maintenance Insurance [facility] C3 ACO C3 ACO C3 ACO C3 ACO C3 ACO C3 ACO C3 ACO Care Teams Control Room Agent Relationship Specialty Start Date End Date Cristian Chacon MD [address] [place] [id number] PCP - General Internal Medicine 10/23/20 Additional Source Comments The information contained in this document represents components of the legal health record. It is not the complete legal health record.[facility]
--- OUTSIDE RECORDS SUMMARY | 2024-12-26 16:09 | XMS_ITS | Encounter Summary ---
Author Organization [employer] Address [address] [facility] 7t [place] [address] Care Team Providers Care Miter Saw Operator Name Role Phone Cristian Chacon MD Primary Care Prov ider Reason for Visit * Reason Comments Med Refill Encounter Details Date Type Department Care Team ([facility] Contact Info) Description 02/27/[address] [facility] [address] [place], [place] [phone] Cristian Chacon MD [address] [place] [address] Social History Tobacco Use Types Packs/Day Years [...] documented as of this encounter Care Teams Miter Saw Operator Relationship Specialty Start Date End Date Cristian Chacon MD [address] [place] [address] PCP - General Internal Medicine 03/17/19 Ivy Payne Blast Hole DrillerTool And Production Planner 11/26/23 documented as of this encounter
[2025-01-23 14:43] VITALS: BMI 38.5
--- NOTE | 2025-01-24 09:45 | HO.ANESPROP2 ---
Documented by User: Sammie Garcia NP 01/24/25 09:47 HPI - Anesthesia Eval Consult details Narrative: 54 yr old female for upper endoscopy s/p upper EGD with dilitation 08/2024 with TIVA Cardiac optimized. Follow[facility] cardiology for atypical CP - holter and echo done this year [place] Anesthesia Pre-Procedure Meds Is the patient on any of the following meds?: GLP1/DPP4 PMFSH Active Problems Active Problems: All Active Problems Soreness of tongue (Acute) Constipation (Acute) Hypertension (Acute) Palpitations (Acute) Chest pain (Acute) Urinary incontinence (Acute) Chronic pelvic pain in female (Acute) Erosive gastritis (Acute) Chronic gastric ulcer (Acute) Diabetes (Acute) Candidiasis of mouth and esophagus (Acute) Nausea and vomiting (Acute) Abdominal pain (Acute) Acromioclavicular joint arthritis (Acute) Pre-op examination (Acute) Muscle spasms of neck (Acute) Cervical spondylosis (Acute) Vertigo (Acute) Migraine without aura (Acute) Dysphagia (Acute) Cerebral palsy (Acute) Pablo's thyroiditis (Acute) Asthma (Acute) Abdominal bloating (Acute) GERD (gastroesophageal reflux disease) (Acute) Hemifacial spasm (Acute) Fibromyalgia (Acute) Past Medical History Medical History Erosive esophagitis Chronic idiopathic constipation Colon cancer screening Hemifacial spasm Pelvic pain in female Bilateral shoulder pain WISE (nonalcoholic steatohepatitis) Elevated antinuclear antibody (FELI) level FELI positive Hemifacial spasm of left side of face Peptic ulcer disease Esophageal spasm Family history of cerebral aneurysm Fibromyalgia Irritable bowel syndrome with both constipation and diarrhea History of meningitis Family History Family History Mother Aneurysm Endometrial cancer Father No problems noted. Family history of problems with anesthesia: No Surgical History Surgical History History of esophagogastroduodenoscopy (EGD) Keloid of skin H/O neck surgery Hx of section Hx of hysterectomy Hx of breast lump removal (~2019) History of bladder suspension procedure H/O bilateral breast reduction surgery History of Problems with Anesthesia: No Social History Social History Alcohol intake: never Comment: medicated Patient Tobacco Use Status: Never used Tobacco Second Hand Smoke Exposure: No Advance Directives: No Advance Directives Information Provided: Yes Sexual orientation: Straight/Heterosexual Gender identity: Female Meds Allergies Allergy/AdvReac Type Severity Reaction Status Date / Time duloxetine (From CYMBALTA) Allergy Unknown UNKNOWN Verified 12/01/24 09:29 pregabalin (From LYRICA) Allergy Unknown UNKNOWN Verified 12/01/24 09:29 meperidine (From DEMEROL) AdvReac Intermediate N/V Verified 12/01/24 09:29 oxycodone (From Percocet) AdvReac Intermediate itching Verified 12/01/24 09:29 Home Medications ?Medication ?Instructions ?Recorded ?Confirmed ?Last Taken ?Type albuterol sulfate 90 mcg/actuation 2 puff inhalation Q6H PRN 12/27/19 01/23/25 Unknown History aerosol inhaler Shortness Of Breath Or Wheezing fluticasone propionate 50 1 inh inhalation BID 12/27/19 01/23/25 Unknown History mcg/actuation blister powder for inhalation loratadine 10 mg tablet 10 mg PO DAILY 12/27/19 01/23/25 Unknown History montelukast 10 mg tablet 10 mg PO BEDTIME 12/27/19 01/23/25 Unknown History (Singulair) lorazepam 2 mg tablet 2 mg PO BEDTIME PRN Anxiety 10/13/23 01/23/25 Unknown History losartan 25 mg tablet 25 mg PO QAM 10/13/23 01/23/25 Unknown History sertraline 50 mg tablet 50 mg PO BEDTIME depressive 10/13/23 01/23/25 Unknown History disorder tizanidine 2 mg tablet 2 mg PO Q6H PRN muscle spasm 03/04/24 01/23/25 Unknown History zolpidem 10 mg tablet 10 mg PO BEDTIME PRN insomnia 03/04/24 01/23/25 Unknown History dulaglutide 0.75 mg/0.5 mL 0.75 mg subcut QWEEK 09/30/24 01/23/25 Unknown History subcutaneous pen injector (Trulicity) Exam Height,Weight and Vital Signs: Height 5 ft Weight 89.358 kg Assessment and Plan Final Anesthetic Review Family History of Problems with Anesthesia: No History of Problems with Anesthesia: No Documented by User: Alysha Kurtz MD 01/25/25 10:06 [facility] Past Medical History Medical History Erosive esophagitis Chronic idiopathic constipation Colon cancer screening Hemifacial spasm Pelvic pain in female Bilateral shoulder pain WISE (nonalcoholic steatohepatitis) Elevated antinuclear antibody (FELI) level FELI positive Hemifacial spasm of left side of face Peptic ulcer disease Esophageal spasm Family history of cerebral aneurysm Fibromyalgia Irritable bowel syndrome with both constipation and diarrhea History of meningitis Family History Family History Mother Aneurysm Endometrial cancer Father No problems noted. Surgical History Surgical History History of esophagogastroduodenoscopy (EGD) Keloid of skin H/O neck surgery Hx of section Hx of hysterectomy Hx of breast lump removal (~2019) History of bladder suspension procedure H/O bilateral breast reduction surgery Social History Social History Alcohol intake: never Comment: medicated Patient Tobacco Use Status: Never used Tobacco Second Hand Smoke Exposure: No Advance Directives: No Advance Directives Information Provided: Yes Sexual orientation: Straight/Heterosexual Gender identity: Female Meds Allergies Allergy/AdvReac Type Severity Reaction Status Date / Time duloxetine (From CYMBALTA) Allergy Unknown UNKNOWN Verified 12/01/24 09:29 pregabalin (From LYRICA) Allergy Unknown UNKNOWN Verified 12/01/24 09:29 meperidine (From DEMEROL) AdvReac Intermediate N/V Verified 12/01/24 09:29 oxycodone (From Percocet) AdvReac Intermediate itching Verified 12/01/24 09:29 Home Medications ?Medication ?Instructions ?Recorded ?Confirmed ?Last Taken ?Type albuterol sulfate 90 mcg/actuation 2 puff inhalation Q6H PRN 12/27/19 01/23/25 Unknown History aerosol inhaler Shortness Of Breath Or Wheezing fluticasone propionate 50 1 inh inhalation BID 12/27/19 01/23/25 Unknown History mcg/actuation blister powder for inhalation loratadine 10 mg tablet 10 mg PO DAILY 12/27/19 01/23/25 Unknown History montelukast 10 mg tablet 10 mg PO BEDTIME 12/27/19 01/23/25 Unknown History (Singulair) lorazepam 2 mg tablet 2 mg PO BEDTIME PRN Anxiety 10/13/23 01/23/25 Unknown History losartan 25 mg tablet 25 mg PO QAM 10/13/23 01/23/25 Unknown History sertraline 50 mg tablet 50 mg PO BEDTIME depressive 10/13/23 01/23/25 Unknown History disorder tizanidine 2 mg tablet 2 mg PO Q6H PRN muscle spasm 03/04/24 01/23/25 Unknown History zolpidem 10 mg tablet 10 mg PO BEDTIME PRN insomnia 03/04/24 01/23/25 Unknown History dulaglutide 0.75 mg/0.5 mL 0.75 mg subcut QWEEK 09/30/24 01/23/25 Unknown History subcutaneous pen injector (Trulicity) Exam Airway Mallampati Class: III TM Dist: >3cm Neck ROM: Full Loose/Missing/Broken Teeth: No Heart: RRR Lungs: CTA Assessment and Plan Assessment Anesthesia Assessment: Anesthesia Plan Discussed and Chart Reviewed Final Anesthetic Review NPO: Yes ASA Class: II Final Preanesthetic Review: Meds/Allgs Chart Reviewed, Consent Obtained/Reviewed and Anes Risks/Benef Reviewed Patient Risk: Low Procedure Risk: Intermediate Anesthetic Plan Anesthetic Plan: MAC: Disposition: Standard PACU
[2025-01-25 09:41] VITALS: BMI 36.8; BMI 37.0
[2025-01-25 09:47] VITALS: BP 117/77; PULSE 84; RESP 16; TEMP 36.1; O2SAT 97
--- NOTE | 2025-01-25 09:51 | MHC.SHP ---
Pre-Procedural Eval Section A - 24 Hr Update-Section A only Date of Service: 01/25/25 Section B - Complete if H&P > 30 days Chief Complaint: Dysphagia, unspecified Relevant Family History (Specify if Yes): No Relevant Social History: None Present Medications: see Short Stay Collaborative assessment Medical History: Significant History (Erosive esophagitis Pre-op examination Chronic idiopathic constipation Colon cancer screening Hemifacial spasm Abdominal pain Pelvic pain in female Bilateral shoulder pain Vulvar irritation WSIE (nonalcoholic steatohepatitis) Elevated antinuclear antibody (FELI) level FELI positive Encounter to discus) History of Previous Operations: Relevant previous surgery/procedure and date(s) (History of esophagogastroduodenoscopy (EGD) Keloid of skin H/O neck surgery Hx of section Hx of hysterectomy Hx of breast lump removal (~2019) History of bladder suspension procedure H/O bilateral breast red) Allergies: Allergies Allergy/AdvReac Type Severity Reaction Status Date / Time duloxetine (From CYMBALTA) Allergy Unknown UNKNOWN Verified 12/01/24 09:29 pregabalin (From LYRICA) Allergy Unknown UNKNOWN Verified 12/01/24 09:29 meperidine (From DEMEROL) AdvReac Intermediate N/V Verified 12/01/24 09:29 oxycodone (From Percocet) AdvReac Intermediate itching Verified 12/01/24 09:29 Review of Systems Sugical H&P ROS: Negative: Constitution, Cardiovascular, Respiratory, Neurological, Psychiatric, Hem-Onc, Allergic/Immunologic, Gastrointestinal, Genitourinary, Musculoskeletal, Integumentary, Endocrine and Eyes/Ears/Nose/Throat Exam Surgical H&P Exam: Normal: HEENT, Normal: Heart, Normal: Lungs, Normal: Extremities, Normal: Abdomen, Normal: Skin and Normal: Neurological Plan Diagnosis/Plan: Unchanged I have reviewed the history and physical and performed a pertinent physical examination on my patient. No changes have occurred unless specified. Time Spent With Patient Time: Total time managing care of this patient today ____ minutes.
[2025-01-25] MEDS: Lactated Ringers 1,000 ML 100 ML IVCONT (10:07)
[2025-01-25 10:31] LABS: Glucose, Whole Blood 108 mg/dL (60-115)
--- NOTE | 2025-01-25 10:56 | P.OP_ITS ---
Operative Note Operative Note Date of Service: 01/25/25 Narrative: Procedure Description: EGD Indication: hx ulcer and dysphagia Anesthesia: MAC FLEXIBLE TRANSORAL UPPER GASTROINTESTINAL ENDOSCOPY UPPER ENDOSCOPY Consent: Indications for the procedure and potential complications of bleeding, perforation, reaction to medications and missed diagnosis were discussed with the patient and informed consent was obtained. Instrument: Olympus GIF H 190 J mid size upper endoscope Monitoring: Vital signs and clinical assessment, continuous EKG monitoring, Pulse oximetry, Carbon Dioxide monitoring and blood pressure monitoring were done throughout the procedure. Procedure: The patient was placed in the left lateral decubitis position and pre-procedure medications were administered and a bite block was placed. The endoscope was inserted into the mouth and advanced under direct vision to the third part of duodenum. A careful inspection was made as the upper endoscope was withdrawn including a retroflexed examination of the proximal stomach; Findings and interventions are described below. Findings: Larynx:normal Esophagus: GE junction at 38 cm, diaphragm hiatus at 38 cm, mild esophagitis, balloon dilation of LES to 20 mm and 19 mm at UES --no tears seen Stomach: mild area of inudration in pre pyloric area, anterior stomach with small ulcer noted 4-6 mm . Biopsies were obtained, also from random stomach. Gra de 2 flap valve on retroflexed examination of the cardia. pylorus was tight and dilated with balloon to 20 mm with some heme noted. Duodenum: Normal bulb and descending duodenum, Intervention: Biopsies as noted above, balloon dilation without wire Impression/Findings: gastritis, gastric ulcer mild esophagitis PLAN: avoid nsaids, if ulcer persists in future then check gastrin level repeat EGD in 3-6 months GERD precautions
[2025-01-25 11:00] VITALS: BP 108/70; PULSE 86; RESP 18; TEMP 36.3; O2SAT 99
[2025-01-25 11:15] VITALS: BP 102/62; PULSE 67; RESP 16; O2SAT 100
[2025-01-25 11:20] VITALS: BP 112/74; PULSE 73; RESP 18; TEMP 36.1; O2SAT 97
== END 2025-01-25 12:06 | disposition home or self-care (01) ==
PROVIDERS: PCP Internal Medicine; Visit Provider Internal Medicine Gastroenterology
PROC: 0DJ08ZZ Inspection of Upper Intestinal Tract, Via Natural or Artificial Opening Endoscopic (ICD-10-PCS; CPT 43235; principal; 2025-01-25 11:00)
DX: R13.10 Dysphagia, unspecified (principal); K14.6 Glossodynia; K21.00 Gastro-esophageal reflux disease with esophagitis, without bleeding; K25.7 Chronic gastric ulcer without hemorrhage or perforation; R10.9 Unspecified abdominal pain; K59.00 Constipation, unspecified
CPT/HCPCS: 43239; 43245; 82947; 88305; 88313; 88342; C1726; J2003; J2704

== ENCOUNTER → 2025-01-25 08:36 | Outpatient (BNV) | payer MEDICAID, SELFPAY | PROVIDERS: PCP Internal Medicine; Visit Provider Internal Medicine Gastroenterology | DX: R13.10 Dysphagia, unspecified (principal); K20.90 Esophagitis, unspecified without bleeding; K29.70 Gastritis, unspecified, without bleeding; K25.9 Gastric ulcer, unspecified as acute or chronic, without hemorrhage or perforation | CPT/HCPCS: 43245; 43249 ==